=== PATIENT | male | born 1950 | race Caucasian/White ===

== ENCOUNTER 2020-04-22 10:35 | Outpatient (REF) | payer MEDICARE, SELFPAY ==
[2020-04-22 14:22] LABS: Glucose Urine UA NEG (NEG); Leukocyte Esterase Urine 1+ (NEG); Nitrite Urine NEG (NEG); Urine Blood TRACE (NEG); Urine Ketones NEG (NEG); Urine Protein NEG (NEG-TRACE)
[2020-04-22 14:27] LABS: Appearance Urine HAZY; Color Urine YELLOW
[2020-04-22 15:20] LABS: WBC Urine 30-49 /HPF (0-4)
== END 2020-04-22 10:36 | disposition home or self-care (01) ==
LOC: HO.LAB 10:35
PROVIDERS: PCP Internal Medicine; Visit Provider Urology
DX: R30.0 Dysuria (principal)
CPT/HCPCS: 81001; 81003; 87086; 87088; 87186

== ENCOUNTER 2020-12-28 13:37 | Outpatient (REF) | payer MEDICARE, SELFPAY ==
--- NOTE | 2020-12-28 14:09 | ECG_ITS ---
Test Reason : PREOP Blood Pressure : / mmHG Vent. Rate : 065 BPM Atrial Rate : 065 BPM P-R Int : 164 ms QRS Dur : 162 ms QT Int : 458 ms P-R-T Axes : 049 -48 116 degrees QTc Int : 476 ms Normal sinus rhythm Left axis deviation Left bundle branch block Abnormal ECG When compared with ECG of 23-APR-2017 14:46, No significant change was found Referred By: Any Jackson Electronically Signed By:XUAN FAULKNER
[2020-12-28 14:24] LABS: MANUAL DIFF FLAG NO
[2020-12-28 14:29] LABS: Basophils Percent Auto 0.5 % (0-2); Eosinophils Absolute Auto 0.2 X10*3/uL (0.0-0.4); Eosinophils Percent Auto 2.7 % (0-4); Hematocrit 44.1 % (42-52); Hemoglobin 15.3 g/dl (14.0-18.0); Imm Gran Abs Auto 0.01 X10*3/uL (0.00-0.03); Imm Gran Pct Auto 0.2 % (0.0-0.4); Lymphocytes Absolute Auto 2.1 X10*3/uL (1.2-4.9); Lymphocytes Percent Auto 35.3 % (20-40); Mean Corpuscular HGB Conc 34.7 g/dl (31.0-36.0); Mean Corpuscular Hemoglobin 30.4 pg (27.0-33.0); Mean Corpuscular Volume 87.5 fL (80-98); Mean Platelet Volume 10.5 fL (9.4-12.4); Monocytes Absolute Auto 0.6 X10*3/uL (0.1-1.2); Monocytes Percent Auto 9.8 % (2-11); Neutrophils Absolute Auto 3.1 X10*3/uL (2.0-8.3); Neutrophils Percent Auto 51.5 % (45-73); Platelet Count 193 X10*3/uL (160-400); Red Blood Count 5.04 X10*6/uL (4.60-5.80); Red Cell Distribution Width 12.2 % (11.0-16.0)
[2020-12-28 14:59] LABS: Anion Gap 12 (12-20); Blood Urea Nitrogen 21 mg/dL (9-16); Calcium 9.4 mg/dL (8.4-10.2); Carbon Dioxide 26 mmol/L (22-29); Chloride 105 mmol/L (96-108); Estimated Glomerular Filt Rate > 60; Glucose Random 104 mg/dL (60-115); Potassium 4.2 mmol/L (3.3-5.1); Sodium 139 mmol/L (135-145)
== END 2020-12-28 13:38 | disposition home or self-care (01) ==
LOC: HO.LAB 13:37
PROVIDERS: PCP Internal Medicine; Visit Provider Internal Medicine
DX: Z01.818 Encounter for other preprocedural examination (principal)
CPT/HCPCS: 36415; 80048; 85025; 93005

== ENCOUNTER → 2021-01-11 10:34 | Outpatient (BNVA) | payer MEDICARE, SELFPAY | PROVIDERS: PCP Internal Medicine; Visit Provider Urology | DX: C67.9 Malignant neoplasm of bladder, unspecified (principal) | CPT/HCPCS: 52000; 99212 ==

== ENCOUNTER 2021-02-14 06:24 | Inpatient (IN) | payer OTHER, SELFPAY ==
--- NOTE | ~2021-02-14 | XR_ITS ---
EXAMINATION: XR ABDOMEN COMPLETE CLINICAL INDICATION: SOB old, follow-up. Check NG tube placement COMPARISON: None TECHNIQUE: 2 views of the abdomen. FINDINGS: There are multiple small air-fluid levels without any free air or free fluid. There is no organomegaly. There is enteric tube tip within the stomach. No gross bony abnormality seen. XR/XR abdomen 3V IMPRESSION: Multiple dilated air-fluid levels in the upper abdomen question ileus.
--- NOTE | ~2021-02-14 | CT_ITS ---
EXAMINATION: CT ABDOMEN AND PELVIS WITH CONTRAST CLINICAL INFORMATION: Periumbilical pain COMPARISON: Previous CT of the abdomen and pelvis June 2013 TECHNIQUE: Multidetector volumetric images were obtained from the superior aspect of the liver through the pubic symphysis following administration 85 mL of Omnipaque 350 intravenous contrast. Sagittal and coronal reformatted images were obtained on the technologist's workstation. Oral contrast: Yes This CT examination was performed using dose optimization techniques as appropriate, variously including the following: *Automated exposure control *Adjustment of mA and/or kV according to patient size (this includes techniques or standardized protocols for targeted exams where dose is matched to indication/reason for exam; i.e. extremities or head) *Use of iterative reconstruction technique DLP: 738 mGy-cm FINDINGS: LUNG BASES: The visualized lung bases are unremarkable. LIVER, GALLBLADDER, AND BILIARY TREE: The liver is normal in size, shape, and attenuation. There is a small calcification. No focal hepatic lesion or biliary ductal dilatation is present. The gallbladder is unremarkable with no evidence of radiopaque gallstones, gallbladder wall thickening, or obvious pericholecystic inflammatory changes. PANCREAS: Unremarkable. SPLEEN: Small calcification probably related to old granulomatous disease. ADRENAL GLANDS: Unremarkable. KIDNEYS AND URETERS: There are bilateral renal cysts. There is a small stone in the left kidney. BLADDER: Not optimally distended. There is a tiny amount of air in the bladder and GASTROINTESTINAL TRACT: The stomach is dilated and fluid-filled. There are dilated fluid-filled loops of proximal small bowel questionable for small bowel obstruction. The distal small bowel and colon do not appear dilated. The appendix is not seen. ABDOMINAL WALL: No significant hernia is appreciated. LYMPH NODES: Normal. VASCULAR: Unremarkable. PELVIC VISCERA: Unremarkable. OSSEOUS STRUCTURES: There are degenerative changes of the spine. CT/CT abdomen pelvis w con IMPRESSION: Dilated fluid-filled stomach and dilated fluid-filled loops of proximal small bowel suggestive of small bowel obstruction. Bilateral renal cysts. Small nonobstructing left renal stone. Small amount of air in the bladder. This may be related to recent catheterization. Clinical correlation recommended.
--- NOTE | ~2021-02-14 | XR_ITS ---
EXAMINATION: XR CHEST CLINICAL INFORMATION: Check NG tube placement COMPARISON: Previous chest x-ray most recent from yesterday TECHNIQUE: Frontal view of the chest was obtained. FINDINGS: The cardiac and mediastinal contours are stable. There is a nasogastric tube that projects over the proximal stomach. The lungs are clear. There may be a tiny left pleural effusion. There is curvature of the thoracic spine to the right and degenerative change. XR/XR chest 1V IMPRESSION: Nasogastric tube projects over stomach.
--- NOTE | ~2021-02-14 | XR_ITS ---
EXAMINATION: XR CHEST CLINICAL INFORMATION: NG tube placement COMPARISON: Previous chest x-ray April 2017 TECHNIQUE: Frontal view of the chest was obtained. FINDINGS: The cardiac and mediastinal contours are normal. The lungs are clear. There is no pleural effusion. There is a nasogastric tube with tip projecting over the proximal stomach. There is curvature of the thoracic line to the right. XR/XR chest 1V IMPRESSION: Nasogastric tube projects over stomach.
[2021-02-14 07:08] VITALS: BP 127/79; PULSE 70; RESP 16; TEMP 36.7; O2SAT 98; BMI 31.4
--- NOTE | 2021-02-14 07:14 | ED_ITS ---
HPI - Abdominal Pain General Chief Complaint: Abdominal Pain Stated Complaint: stomach pain for about a day Time Seen by Provider: 02/14/21 07:12 Source: patient Mode of arrival: ambulatory Limitations: no limitations History of Present Illness MD elicited complaint: abdominal pain Pertinent past history: none Onset (ago): day(s) (yesterday) Pain Consistency: constant Location: periumbilical Quality: cramping Radiation: none Migration to: no migration Exacerbating factors: movement Relieving factors: nothing Associated symptoms: nausea Related Data Previous Rx's Medication Instructions Recorded simvastatin 40 mg tablet 40 mg PO BEDTIME #90 tab 07/17/20 metoprolol tartrate 50 mg tablet 50 mg PO BID #180 tab 10/10/20 omeprazole 20 mg capsule,delayed 20 mg PO DAILY 90 Days #90 cap 01/18/21 release Allergies Allergy/AdvReac Type Severity Reaction Status Date / Time No Known Allergies Allergy Unknown Verified 01/11/21 10:58 [No Known Allergies*] Review of Systems Review of Systems Constitutional : No Weight loss, No Fever, No Chills ENT/Mouth : No sore throat, No Rhinorrhea Eyes: No Swelling, No Redness Cardiovascular : No Chest Pain, No SOB, NoEdema Respiratory : No Cough, No Sputum, No Wheezing Gastrointestinal : Positive Nausea, no Vomiting, no Diarrhea, positive abdominal Pain, No Hematochezia, No Melena Genitourinary : No Dysuria, No Urinary Frequency, No Hematuria, No Urgency Musculoskeletal : No joint pain, No Myalgias, No Joint Swelling Skin : No Skin Lesions, No rash Neuro : No Weakness, No Numbness, No Dizziness, No Headache Psych : No Anxiety/Panic, No Depression Heme/Lymph: No Bruising, No Lymphadenopathy Endocrine : No Polyuria, No Polydipsia All other systems reviewed and are negative. Physical Exam Vital Signs: Vital Signs: Last Vital Signs Temp 98.0 F 02/14/21 07:08 Pulse 70 02/14/21 07:08 Resp 16 02/14/21 07:46 BP 127/79 02/14/21 07:08 Pulse Ox 98 02/14/21 07:08 Body Mass Index 31.4 Appearance: Alert. Oriented X3. No acute distress. Eyes: Pupils equal, round and reactive to light. ENT: Pharynx normal. Neck: Normal inspection. Neck supple. CVS: Normal heart rate and rhythm. Pulses normal. Respiratory: No respiratory distress. Breath sounds normal. Abdomen: Soft and moderate ttp in periumbilical area no rebound or guarding Skin: Skin warm and dry. Normal skin color. Normal skin turgor. Extremities: No lower extremity edema. No calf ttp Neuro: Oriented X 3. No motor deficit. No sensory deficit. Course Course Course Narrative: message sent to Dr. Wagner 349am [facility] - Abdominal Pain MDM Narrative Medical decision making narrative: 71 yo male otherwise healthy comes in with c/o periumbilical pain since last night with nausea at this time labs, IV morphine, CT scan for pancreatitis, obstruction ordered, dispo per results and findings. Differential Diagnosis Differential diagnosis: Likely abdominal pain, diverticulitis, pancreatitis, peptic ulcer disease, renal colic and small bowel obstruction Lab Data Result diagrams: 02/14/21 07:24 02/14/21 07:24 Labs: Lab Results 02/14/21 02/14/21 02/14/21 Range/Units 07:24 07:24 07:24 WBC 11.4 H (4.8-10.8) X10*3/uL RBC 5.43 (4.60-5.80) X10*6/uL Hgb 16.6 (14.0-18.0) g/dl Hct 47.2 (42-52) % MCV 86.9 (80-98) fL MCH 30.6 (27.0-33.0) pg MCHC 35.2 (31.0-36.0) g/dl RDW 12.5 (11.0-16.0) % Plt Count 178 (160-400) X10*3/uL MPV 9.7 (9.4-12.4) fL Immature Gran % (Auto) 0.3 (0.0-0.4) % Neut % (Auto) 85.6 H (45-73) % Lymph % (Auto) 7.6 L (20-40) % [place] % (Auto) 6.0 (2-11) % Eos % (Auto) 0.3 (0-4) % Baso % (Auto) 0.2 (0-2) % Lymph # (Auto) 0.9 L (1.2-4.9) X10*3/uL [place] # (Auto) 0.7 (0.1-1.2) X10*3/uL Eos # (Auto) 0.0 (0.0-0.4) X10*3/uL Baso # (Auto) 0.0 (0.0-0.2) X10*3/uL Abs Immat Gran (auto) 0.03 (0.00-0.03) X10*3/uL Absolute Neuts (auto) 9.8 H (2.0-8.3) X10*3/uL Absolute Nucleated RBC 0.000 (0.0-0.012) X10*3/uL Nucleated RBC % (auto) 0.0 (0.0-0.2) /100WBC Sodium 138 (135-145) mmol/L Potassium 3.9 (3.3-5.1) mmol/L Chloride 99 (96-108) mmol/L Carbon Dioxide 29 (22-29) mmol/L Anion Gap 14 (12-20) BUN 19 H (9-16) mg/dL Creatinine 0.96 (0.5-1.4) mg/dL Estim Creat Clear Calc 71.4 Estimated GFR > 60 Random Glucose 137 H (60-115) mg/dL Lactic Acid 1.4 (0.5-2.0) mmol/L Calcium 10.2 D (8.4-10.2) mg/dL Magnesium 2.0 (1.6-2.6) mg/dL Total Bilirubin 1.1 H (0.0-1.0) mg/dL Direct Bilirubin 0.4 (0.0-0.5) mg/dL AST 19 (5-37) U/L ALT 16 (0-40) U/L Alkaline Phosphatase 75 (39-117) U/L Troponin I High Sens (<3.5-35.0) ng/L Total Protein 7.7 (6.5-8.0) g/dL Albumin 4.5 (3.5-5.0) g/dL Lipase 10 (8-78) U/L Urine Color Urine Appearance Urine pH (5.0-8.0) Ur Specific [place] (1.005-1.025) Urine Protein (NEG-TRACE) MG/DL Urine Glucose (UA) (NEG) MG/DL Urine Ketones (NEG) MG/DL Urine Blood (NEG) Urine Nitrite (NEG) Ur Leukocyte Esterase (NEG) COVID-19 (ARPIT) (Negative) COVID-19 Clin Com 02/14/21 02/14/21 02/14/21 Range/Units 07:24 08:08 08:08 WBC (4.8-10.8) X10*3/uL RBC (4.60-5.80) X10*6/uL Hgb (14.0-18.0) g/dl Hct (42-52) % MCV (80-98) fL MCH (27.0-33.0) pg MCHC (31.0-36.0) g/dl RDW (11.0-16.0) % Plt Count (160-400) X10*3/uL MPV (9.4-12.4) fL Immature Gran % (Auto) (0.0-0.4) % Neut % (Auto) (45-73) % Lymph % (Auto) (20-40) % [place] % (Auto) (2-11) % Eos % (Auto) (0-4) % Baso % (Auto) (0-2) % Lymph # (Auto) (1.2-4.9) X10*3/uL [place] # (Auto) (0.1-1.2) X10*3/uL Eos # (Auto) (0.0-0.4) X10*3/uL Baso # (Auto) (0.0-0.2) X10*3/uL Abs Immat Gran (auto) (0.00-0.03) X10*3/uL Absolute Neuts (auto) (2.0-8.3) X10*3/uL Absolute Nucleated RBC (0.0-0.012) X10*3/uL Nucleated RBC % (auto) (0.0-0.2) /100WBC Sodium (135-145) mmol/L Potassium (3.3-5.1) mmol/L Chloride (96-108) mmol/L Carbon Dioxide (22-29) mmol/L Anion Gap (12-20) BUN (9-16) mg/dL Creatinine (0.5-1.4) mg/dL Estim Creat Clear Calc Estimated GFR Random Glucose (60-115) mg/dL Lactic Acid (0.5-2.0) mmol/L Calcium (8.4-10.2) mg/dL Magnesium (1.6-2.6) mg/dL Total Bilirubin (0.0-1.0) mg/dL Direct Bilirubin (0.0-0.5) mg/dL AST (5-37) U/L ALT (0-40) U/L Alkaline Phosphatase (39-117) U/L Troponin I High Sens < 3.5 (<3.5-35.0) ng/L Total Protein (6.5-8.0) g/dL Albumin (3.5-5.0) g/dL Lipase (8-78) U/L Urine Color YELLOW Urine Appearance CLEAR Urine pH 6.5 (5.0-8.0) Ur Specific [place] 1.020 (1.005-1.025) Urine Protein TRACE (NEG-TRACE) MG/DL Urine Glucose (UA) NEG (NEG) MG/DL Urine Ketones NEG (NEG) MG/DL Urine Blood NEG (NEG) Urine Nitrite NEG (NEG) Ur Leukocyte Esterase NEG (NEG) COVID-19 (ARPIT) Negative (Negative) COVID-19 Clin Com See Note ECG Data Attestation: I personally reviewed and interpreted this ECG as follows: ECG interpretation date: 02/14/21 ECG interpretation time: 07:59 Interpretation: Rate: 67 Rhythm: NSR [place]: left Normal P waves. Normal [place]. LBBB ST T wave : normal no RUDI qTC: normal prior studies: no acute ischemia The study has been interpreted contemporaneously by me. . Discharge Plan Discharge Clinical Impression: SBO (small bowel obstruction) Patient Disposition: Admitted As Inpatient Prescriptions: No Action simvastatin 40 mg tablet 40 mg PO BEDTIME Qty: 90 RF: 3 metoprolol tartrate 50 mg tablet 50 mg PO BID Qty: 180 RF: 3 omeprazole 20 mg capsule,delayed release(DR/EC) 20 mg PO DAILY 90 Days Qty: 90 RF: 1 PMF Past Medical History Attestation statement: The following information was validated with the patient. Medical History (Updated 02/14/21 @ 09:50 by Goldie Swain DO) Bladder cancer Erectile dysfunction GERD (gastroesophageal reflux disease) Hypercholesterolemia Obesity (BMI 30-39.9) Obstructive sleep apnea SVT (supraventricular tachycardia) Surgical History (Updated 02/14/21 @ 09:40 by Goldie Swain DO) H/O arthroscopy of right knee History of appendectomy History of arthroplasty of left knee History of bladder surgery History of meniscectomy of left knee Hx of transurethral destruction of bladder lesion Social History Social History Alcohol intake: never Patient Tobacco Use Status: Never used Tobacco Use of substances other than those prescribed or required for medical reasons: No Advance Directives: Yes Advance Directives Information Provided: No Advance Directives on File: No
--- NOTE | 2021-02-14 07:19 | ECG_ITS ---
Test Reason : ABDOMINAL PAIN Blood Pressure : / mmHG Vent. Rate : 067 BPM Atrial Rate : 067 BPM P-R Int : 170 ms QRS Dur : 162 ms QT Int : 436 ms P-R-T Axes : 040 -47 094 degrees QTc Int : 460 ms Normal sinus rhythm Left axis deviation Left bundle branch block Abnormal ECG When compared with ECG of 28-DEC-2020 14:12, No significant change was found Referred By: Goldie Swain Electronically Signed By:Elder Vegas
[2021-02-14 07:29] LABS: MANUAL DIFF FLAG NO
[2021-02-14 07:31] LABS: Basophils Percent Auto 0.2 % (0-2); Eosinophils Percent Auto 0.3 % (0-4); Hematocrit 47.2 % (42-52); Hemoglobin 16.6 g/dl (14.0-18.0); Imm Gran Abs Auto 0.03 X10*3/uL (0.00-0.03); Imm Gran Pct Auto 0.3 % (0.0-0.4); Lymphocytes Absolute Auto 0.9 X10*3/uL (1.2-4.9); Lymphocytes Percent Auto 7.6 % (20-40); Mean Corpuscular HGB Conc 35.2 g/dl (31.0-36.0); Mean Corpuscular Hemoglobin 30.6 pg (27.0-33.0); Mean Corpuscular Volume 86.9 fL (80-98); Mean Platelet Volume 9.7 fL (9.4-12.4); Monocytes Absolute Auto 0.7 X10*3/uL (0.1-1.2); Neutrophils Absolute Auto 9.8 X10*3/uL (2.0-8.3); Neutrophils Percent Auto 85.6 % (45-73); Platelet Count 178 X10*3/uL (160-400); Red Blood Count 5.43 X10*6/uL (4.60-5.80); Red Cell Distribution Width 12.5 % (11.0-16.0); White Blood Count 11.4 X10*3/uL (4.8-10.8)
[2021-02-14 07:46] VITALS: RESP 16
[2021-02-14] MEDS: Morphine Sulfate 4 MG/ML CARTRIDGE IVPUSH ×2 (07:46→16:38)
[2021-02-14 07:49] LABS: COVID-19 Test Negative (Negative)
[2021-02-14 07:58] LABS: Lactic Acid 1.4 mmol/L (0.5-2.0)
[2021-02-14 08:04] LABS: Alanine Aminotransferase 16 U/L (0-40); Albumin Level 4.5 g/dL (3.5-5.0); Alkaline Phosphatase 75 U/L (39-117); Anion Gap 14 (12-20); Aspartate Amino Transferase 19 U/L (5-37); Bilirubin Direct 0.4 mg/dL (0.0-0.5); Bilirubin Total 1.1 mg/dL (0.0-1.0); Blood Urea Nitrogen 19 mg/dL (9-16); Calcium 10.2 mg/dL (8.4-10.2); Carbon Dioxide 29 mmol/L (22-29); Chloride 99 mmol/L (96-108); Creatinine Clr Calc Pharmacy 71.4; Estimated Glomerular Filt Rate > 60; Glucose Random 137 mg/dL (60-115); Lipase 10 U/L (8-78); Potassium 3.9 mmol/L (3.3-5.1); Sodium 138 mmol/L (135-145); Total Protein 7.7 g/dL (6.5-8.0)
[2021-02-14 08:18] LABS: Glucose Urine UA NEG (NEG); Leukocyte Esterase Urine NEG (NEG); Nitrite Urine NEG (NEG); PH 6.5 (5.0-8.0); Urine Blood NEG (NEG); Urine Ketones NEG (NEG); Urine Protein TRACE MG/DL (NEG-TRACE)
[2021-02-14 08:19] LABS: Appearance Urine CLEAR; Color Urine YELLOW
[2021-02-14] MEDS: iohexoL 350 MG/ML 100 ML INFUS..BTL IV (08:42)
[2021-02-14 08:44] LABS: Troponin-I High Sensitivity < 3.5 ng/L (<3.5-35.0)
--- NOTE | 2021-02-14 10:36 | PM.HPGS ---
History of Present Illness History of Present Illness Date of Service: 02/14/21 Chief complaint: Small Bowel Obstruction Narrative: Volodymyr Richards is a 71 year old male with complaints of abdominal pain located diffusely since yesterday morning. Pain is mostly in the upper abdomen and is associated with nausea without vomiting. He felt the pain comes in waves. He thought if he could only vomit the pain would improve. He denied eating anything unusual and denies any sick exposures. He denies a previous history of similar symptoms. He has a history of kidney stones with feels the pain is different. He reports moving his bowels twice yesterday and they were normal. He has a previous history of an appendectomy performed when he was 8 years old. He presents to the emergency department due to the pain and was found to have a small-bowel obstruction by CT of the abdomen and pelvis. He is being admitted to the surgical service for management of small-bowel obstruction. He denies a prior history of bowel obstructions. There were no inciting events, aggravating or relieving factors. Review of Systems Review of Systems: Yes all other systems are reviewed and are negative Gastrointestinal: Gastrointestinal: Reports as per HPI Genitourinary: Comments: Bladder cancer [facility] Past Medical History Medical History Bladder cancer Erectile dysfunction GERD (gastroesophageal reflux disease) Hypercholesterolemia Obesity (BMI 30-39.9) Obstructive sleep apnea SVT (supraventricular tachycardia) Surgical History Surgical History H/O arthroscopy of right knee History of appendectomy History of arthroplasty of left knee History of bladder surgery History of meniscectomy of left knee Hx of transurethral destruction of bladder lesion Social History Social History Household Members: Spouse Housing: House Do you presently have visiting nurse or other home services: No Alcohol intake: never Patient Tobacco Use Status: Former Tobacco user Use of substances other than those prescribed or required for medical reasons: No Have you been hit, kicked, punched, or otherwise hurt by someone within the past year? If so, by whom?: No Do you feel safe in your current relationship?: Yes Is there a partner from a previous relationship who is making you feel unsafe now?: No Are you made to feel afraid or neglected: No Advance Directives: Yes Advance Directives Information Provided: No Advance Directives on File: No Advance Directives Date on File: 02/14/21 Do you have thoughts of harming others: None Do you have a plan to hurt others: No Plan Recently lost weight without trying: No Eating poorly because of decreased appetite: No Nutrition Risks: No Nutritional Risk Poor oral hygiene: No Meds Allergies Allergy/AdvReac Type Severity Reaction Status Date / Time No Known Allergies Allergy Unknown Verified 01/11/21 10:58 [No Known Allergies*] Home Medications Medication Instructions Recorded Confirmed Last Taken Type meloxicam 15 mg tablet 1 tab PO DAILY 02/14/21 02/14/21 Unknown History piroxicam 20 mg capsule 1 cap PO DAILY 02/14/21 02/14/21 Unknown History Physical Exam Vital Signs: Vital Signs: Last Vital Signs Temp 98.0 F 02/14/21 07:08 Pulse 70 02/14/21 07:08 Resp 16 02/14/21 07:46 BP 127/79 02/14/21 07:08 Pulse Ox 98 02/14/21 07:08 Body Mass Index 31.4 Const: General: no acute distress and well developed Nutritional Appearance: well nourished Orientation/consciousness: patient oriented x3 Limitations: no limitations Neck: Neck: Yes full ROM and Yes no JVD Resp: Effort & Inspection: normal respiratory effort, no cough and no stridor Cardio: Jugular venous distension: no JVD Rate: regular rate Rhythm: regular rhythm GI: Other: Soft, distended, tympanitic to percussion, tender to deep palpation without rebound, guarding, rigidity. Skin: Other: Warm, dry, no Neuro: General: patient oriented x3 Extrem: General: Yes no clubbing, cyanosis or edema Results Results Labs: Short CBC 02/14/21 Range/Units 07:24 WBC 11.4 H (4.8-10.8) X10*3/uL Hgb 16.6 (14.0-18.0) g/dl Hct 47.2 (42-52) % Plt Count 178 (160-400) X10*3/uL BMP 02/14/21 07:24 Sodium 138 Potassium 3.9 Chloride 99 Carbon Dioxide 29 BUN 19 H Creatinine 0.96 Calcium 10.2 D Liver Function 02/14/21 Range/Units 07:24 Total Bilirubin 1.1 H (0.0-1.0) mg/dL Direct Bilirubin 0.4 (0.0-0.5) mg/dL AST 19 (5-37) U/L ALT 16 (0-40) U/L Alkaline Phosphatase 75 (39-117) U/L Albumin 4.5 (3.5-5.0) g/dL Urine 02/14/21 Range/Units 08:08 Urine Color YELLOW Urine Appearance CLEAR Urine pH 6.5 (5.0-8.0) Ur Specific [place] 1.020 (1.005-1.025) Urine Protein TRACE (NEG-TRACE) MG/DL Urine Glucose (UA) NEG (NEG) MG/DL Abdomen CT scan report/results: image reviewed CT scan - pelvis: image reviewed Assessment and Plan (1) SBO (small bowel obstruction): Status: Acute 71-year-old male patient presenting with a 1st episode of small-bowel obstruction possibly due to adhesions from prior abdominal surgery. Patient will be made NPO and started on IV fluids. Nasogastric tube will be placed in the emergency department and connected to low intermittent suction. We discussed non operative management of small-bowel obstruction with the possibility of surgery if no improvement or worsening of his symptoms over the next several days. He expressed understanding and agrees with the plan. Quality Stroke Does the patient have a stroke diagnosis?: No VTE Prior VTE?: No VTE Risk Level:: Surgical - high VTE Device Contraindication: N/A - Device Ordered VTE Drug Contraindication: N/A - Med Ordered Procedures Date of Service Date of Service: 02/14/21
[2021-02-14] MEDS: Lidocaine HCl 4 % MPF w/MADgic 5 ML AMPUL 1 APPL TOPICAL (10:49)
--- NOTE | 2021-02-14 11:06 | PC.NURSE ---
ng tube placed l nare- pt tolerated well
--- NOTE | 2021-02-14 11:06 | PHA.MEDREC ---
Pharmacy Consult ? Medication Reconciliation Pharmacy has completed the medication reconciliation. PT has both meloxicam and piroxicam on his home med list. However, the meloxicam was ordered more recently. The Rx for piroxicam is from at least 6 months ago.
[2021-02-14 11:57] VITALS: BP 130/73; PULSE 66; RESP 17; TEMP 36; O2SAT 92
[2021-02-14] MEDS: Heparin Sodium,Porcine 5,000 UNIT/ML VIAL 5000 UNIT SUBCUT ×2 (12:23→20:29)
[2021-02-14] MEDS: Dextrose 5 % and Lactated Ring 1,000 ML 125 ML IVCONT ×2 (12:25→20:28)
[2021-02-14] MEDS: oxyCODONE HCl Immed Release 5 MG TABLET PO (12:33)
[2021-02-14 15:49] VITALS: BP 131/73; PULSE 73; RESP 14; TEMP 36.4; O2SAT 94
[2021-02-14 19:24] VITALS: BP 124/65; PULSE 82; RESP 14; TEMP 36.9; O2SAT 93
[2021-02-15] VITALS (8 sets, daily range): BP systolic 127–156; BP diastolic 67–86; PULSE 74–111; RESP 14–17; TEMP 36–37.3; O2SAT 91–97
[2021-02-15] MEDS: 0.9 % Sodium Chloride Flush 3 ML SYRINGE IVFLUSH (00:05)
[2021-02-15] MEDS: Morphine Sulfate 4 MG/ML CARTRIDGE IVPUSH ×3 (01:08→22:18)
[2021-02-15] MEDS: Dextrose 5 % and Lactated Ring 1,000 ML 125 ML IVCONT ×3 (04:54→21:12)
[2021-02-15 06:00] LABS: MANUAL DIFF FLAG NO
[2021-02-15 06:03] LABS: Basophils Percent Auto 0.4 % (0-2); Eosinophils Percent Auto 0.7 % (0-4); Hematocrit 47.7 % (42-52); Hemoglobin 16.2 g/dl (14.0-18.0); Imm Gran Abs Auto 0.01 X10*3/uL (0.00-0.03); Imm Gran Pct Auto 0.2 % (0.0-0.4); Lymphocytes Absolute Auto 1.1 X10*3/uL (1.2-4.9); Lymphocytes Percent Auto 21.3 % (20-40); Mean Corpuscular Hemoglobin 30.1 pg (27.0-33.0); Mean Corpuscular Volume 88.7 fL (80-98); Monocytes Absolute Auto 0.9 X10*3/uL (0.1-1.2); Monocytes Percent Auto 16.3 % (2-11); Neutrophils Absolute Auto 3.3 X10*3/uL (2.0-8.3); Neutrophils Percent Auto 61.1 % (45-73); Platelet Count 169 X10*3/uL (160-400); Red Blood Count 5.38 X10*6/uL (4.60-5.80); Red Cell Distribution Width 12.6 % (11.0-16.0); White Blood Count 5.4 X10*3/uL (4.8-10.8)
--- NOTE | 2021-02-15 06:30 | MHC.PIE ---
P.HICCUPS I.PT C/O SPASTIC HICCUPS WHEN INTERMITTANT SUCTION ON.STATING HE WANTED NG TUBE OUT.INTERMITANT SUCTION TURNED OFF BUT EXPLAINED TO PT IMPORTANCE OF LEAVING NG TUBE IN FOR NOW.PT AGREEABLE.SUCTION OFF WITH ALMOST IMMEDIATE RELIEF OF HICCUPS.LEFT OFF X 1 HOUR BUT PT THEN C/O NAUSEA.MED WITH ZOFRAN 4MG IV AND INTERMITTANT SUCTION BACK ON.LEFT ON X 40 MINUTES AND PT STARTING WITH HICCUPS AGAIN.REQUESTED THE INTERMITTANT SUCTION BE TURNED OFF.SUCTION OFF. NOTIFIED OF ALL ABOVE.
[2021-02-15 06:35] LABS: Anion Gap 13 (12-20); Blood Urea Nitrogen 23 mg/dL (9-16); Calcium 9.3 mg/dL (8.4-10.2); Carbon Dioxide 30 mmol/L (22-29); Chloride 100 mmol/L (96-108); Creatinine Clr Calc Pharmacy 79.7; Estimated Glomerular Filt Rate > 60; Glucose Random 125 mg/dL (60-115); Sodium 139 mmol/L (135-145)
--- NOTE | 2021-02-15 08:11 | PM.PNGS ---
Subjective Subjective Date of Service: 02/15/21 <Mariposa Sinha PA-C - Last Filed: 02/15/21 08:17> 02/15/21 <Samy Wagner MD - Last Filed: 02/15/21 08:31> Interval history: Does not feel any better. Continues to have pain. NGT clamped while awaiting AXR as patient complained of hiccups but now having nausea. Denies passing flatus since yesterday. <Mariposa Sinha PA-C - Last Filed: 02/15/21 08:17> Physical Exam Vital Signs: Vital Signs: Last Vital Signs Temp 97.6 F 02/15/21 08:00 Pulse 93 02/15/21 08:00 Resp 17 02/15/21 08:00 BP 142/86 H 02/15/21 08:00 Pulse Ox 92 02/15/21 08:00 Body Mass Index 31.4 <Mariposa Sinha PA-C - Last Filed: 02/15/21 08:17> Const: General: no acute distress, alert and other (appears in pain) <Mariposa Sinha PA-C - Last Filed: 02/15/21 08:17> Orientation/consciousness: patient oriented x3 <TARIK Sumner Last Filed: 02/15/21 08:17> HENMT: Other: NGT in left nare <Mariposa Sinha PA-C - Last Filed: 02/15/21 08:17> Resp: Effort & Inspection: normal respiratory effort <Mariposa Sinha PA-C - Last Filed: 02/15/21 08:17> GI: Inspection: Yes distended <TARIK Sumner Last Filed: 02/15/21 08:17> Palpation (GI): Soft to palpation, Tenderness to palpation present (GI) (upper abdomen) Negative for with no rebound tenderness, no guarding and not rigid <TARIK Sumner Last Filed: 02/15/21 08:17> Percussion: Yes tympanic to percussion <TARIK Sumner Last Filed: 02/15/21 08:17> Skin: General skin exam: no rashes or lesions noted <TARIK Sumner Last Filed: 02/15/21 08:17> Neuro: General: patient oriented x3 <TARIK Sumner Last Filed: 02/15/21 08:17> Extrem: General: Yes no clubbing, cyanosis or edema <TARIK Sumner Last Filed: 02/15/21 08:17> Procedures Date of Service Date of Service: 02/15/21 <TARIK Sumner Last Filed: 02/15/21 08:17> Progress Note: A&P Assessment and plan (1) SBO (small bowel obstruction): Status: Acute <TARIK Sumner Last Filed: 02/15/21 08:17> Assessment and Plan: 71 year old male who presented to ED with complaints of abdominal pain found to have SBO. He has persistent pain, no evidence of return of GI function. F/u AXR today. NGT did not have much output- ?need to be advanced versus clogged. Strongly encouraged patient to ambulate. Continue NPO status, NGT decompression, IVF. Await AXR. <TARIK Sumner Last Filed: 02/15/21 08:17> Fall Risk Details Current Medications: Current Medications Generic Name Dose Route Start Last Admin Trade Name Freq PRN Reason Stop Dose Admin Acetaminophen 650 mg 02/14/21 11:12 Acetaminophen 325 Mg Tablet PO Q6H PRN Pain, Mild (Pain Scale 1-3) Heparin Sodium (Porcine) 5,000 unit 02/14/21 11:12 02/14/21 20:29 Heparin Sodium,Porcine 5,000 Unit/Ml Vial SUBCUT 5,000 unit Q12H PANCHITO Administration Dextrose/Lactated Ringer's 1,000 mls @ 125 mls/hr 02/14/21 11:12 02/15/21 04:54 D5lr IVCONT 125 mls/hr .Q8H PANCHITO Administration Promethazine HCl 12.5 mg/ 50.5 mls @ 202 mls/hr 02/14/21 18:29 02/14/21 20:48 Sodium Chloride IV Infused Q6H PRN Infusion Nausea and Vomiting Morphine Sulfate 4 mg 02/14/21 11:12 02/15/21 01:08 Morphine Sulfate 4 Mg/Ml Cartridge IVPUSH 4 mg Q4H PRN Administration Pain, Severe (Pain Scale 7-10) Ondansetron HCl 4 mg 02/14/21 11:12 02/15/21 06:04 Ondansetron Hcl 4 Mg/2 Ml Vial IVPUSH 4 mg Q8H PRN Administration Nausea and Vomiting Oxycodone HCl 5 mg 02/14/21 11:12 02/14/21 12:33 Oxycodone Hcl Immed Release 5 Mg Tablet PO 5 mg Q6H PRN Administration Pain, Moderate (Pain Scale 4-6 Sodium Chloride 3 ml 02/14/21 16:00 02/15/21 07:21 0.9 % Sodium Chloride Flush 3 Ml Syringe IVFLUSH Not Given QSHIFT PANCHITO Temazepam 15 mg 02/14/21 11:12 Temazepam 15 Mg Capsule PO BEDTIME PRN Insomnia <Mariposa Sinha PA-C - Last Filed: 02/15/21 08:17> Time Spent With Patient Time: Total time spent is greater than 50% in coordination of care (as documented) at patient's floor/unit and/or counseling patient: <Mariposa Sinha PA-C - Last Filed: 02/15/21 08:17> Time with patient: 15 - 24 minutes <TARIK Sumner Last Filed: 02/15/21 08:17> Quality Stroke Does the patient have a stroke diagnosis?: No <TARIK Sumner Last Filed: 02/15/21 08:17> VTE Prior VTE?: No <TARIK Sumner Last Filed: 02/15/21 08:17> VTE Risk Level:: Surgical - high <TARIK Sumner Last Filed: 02/15/21 08:17> VTE Device Contraindication: N/A - Device Ordered <TARIK Sunmer Last Filed: 02/15/21 08:17> VTE Drug Contraindication: N/A - Med Ordered <TARIK Sumner Last Filed: 02/15/21 08:17>
--- NOTE | 2021-02-15 08:12 | PM.PNGS ---
Subjective Subjective Date of Service: 02/15/21 Interval history: complains of huccups, not improved with NGT on suction. Continues to feel nausea, no BM yet. Physical Exam Vital Signs: Vital Signs: Last Vital Signs Temp 97.6 F 02/15/21 08:00 Pulse 93 02/15/21 08:00 Resp 17 02/15/21 08:00 BP 142/86 H 02/15/21 08:00 Pulse Ox 92 02/15/21 08:00 Body Mass Index 31.4 Const: General: no acute distress and well developed Nutritional Appearance: well nourished Orientation/consciousness: patient oriented x3 Resp: Effort & Inspection: normal respiratory effort GI: Other: distended, less tympanitic, mild tenderness in the lower abdomen, decreased BS. Skin: Other: warm, dry, no rash Neuro: General: patient oriented x3 Extrem: Other: no edema Procedures Date of Service Date of Service: 02/15/21 Progress Note: A&P Assessment and plan (1) SBO (small bowel obstruction): Status: Acute Assessment and Plan: 71-year-old male patient with small-bowel obstruction presumably due to adhesions. Patient is complaining of hiccups this morning which may be related to gastric distention. Abdominal x-ray has been requested to check NG tube placement. Continue NPO and IV fluids. If no improvement patient may require exploratory laparotomy with enterolysis. Patient expressed understanding and agrees with the plan. Fall Risk Details Current Medications: Current Medications Generic Name Dose Route Start Last Admin Trade Name Freq PRN Reason Stop Dose Admin Acetaminophen 650 mg 02/14/21 11:12 Acetaminophen 325 Mg Tablet PO Q6H PRN Pain, Mild (Pain Scale 1-3) Heparin Sodium (Porcine) 5,000 unit 02/14/21 11:12 02/14/21 20:29 Heparin Sodium,Porcine 5,000 Unit/Ml Vial SUBCUT 5,000 unit Q12H PANCHITO Administration Dextrose/Lactated Ringer's 1,000 mls @ 125 mls/hr 02/14/21 11:12 02/15/21 04:54 D5lr IVCONT 125 mls/hr .Q8H PANCHITO Administration Promethazine HCl 12.5 mg/ 50.5 mls @ 202 mls/hr 02/14/21 18:29 02/14/21 20:48 Sodium Chloride IV Infused Q6H PRN Infusion Nausea and Vomiting Morphine Sulfate 4 mg 02/14/21 11:12 02/15/21 01:08 Morphine Sulfate 4 Mg/Ml Cartridge IVPUSH 4 mg Q4H PRN Administration Pain, Severe (Pain Scale 7-10) Ondansetron HCl 4 mg 02/14/21 11:12 02/15/21 06:04 Ondansetron Hcl 4 Mg/2 Ml Vial IVPUSH 4 mg Q8H PRN Administration Nausea and Vomiting Oxycodone HCl 5 mg 02/14/21 11:12 02/14/21 12:33 Oxycodone Hcl Immed Release 5 Mg Tablet PO 5 mg Q6H PRN Administration Pain, Moderate (Pain Scale 4-6 Sodium Chloride 3 ml 02/14/21 16:00 02/15/21 07:21 0.9 % Sodium Chloride Flush 3 Ml Syringe IVFLUSH Not Given QSHIFT [facility] Temazepam 15 mg 02/14/21 11:12 Temazepam 15 Mg Capsule PO BEDTIME PRN Insomnia Time Spent With Patient Time: Total time spent is greater than 50% in coordination of care (as documented) at patient's floor/unit and/or counseling patient: Time with patient: 15 - 24 minutes Quality Stroke Does the patient have a stroke diagnosis?: No VTE Prior VTE?: No VTE Risk Level:: Surgical - high VTE Device Contraindication: N/A - Device Ordered VTE Drug Contraindication: N/A - Med Ordered
[2021-02-15] MEDS: Heparin Sodium,Porcine 5,000 UNIT/ML VIAL 5000 UNIT SUBCUT ×2 (10:20→22:18)
[2021-02-15] MEDS: Throat Lozenge, Medicated LOZENGE 1 LOZENGE MUCOUS MEM (11:43)
--- NOTE | 2021-02-15 15:25 | MHC.CM.PN ---
nurse care management note electronic medical record reviewed along with case discussed with staff nurse , met with patient and explained the role of the nurse foster care worker to him we have him listed as primary va ins and secondarys united health care medicare , he reported it shoul be listed at undited health care medicare foirst and then secondary second, [facility] and has some war disabilities he does not use their pharmacy. he lives with his , he is active and independent in all adls and mobility he has no vna , he does have a cpap for jorge from [facility], he reported he has some ptsd and is followed by dana also he has been in [facility] for over 40 years now He has been admitted with small bowel obstructions DISCHARGE PLAN HOME NO SERVICES ANTICIPATED PCP DR WARE PO PATIENT TO CALL FOR POST HOSPITLAZATION FOLLOW UP TRANSPORTATION HIS HEALTH CARE PROXY HIS REQUESTED COPY BE BROUGHT IN OR MAILED TO [facility] MEDIC[facility] IMM UPDATED
[2021-02-15] MEDS: Acetaminophen 325 MG TABLET 650 MG PO (19:36)
[2021-02-16] VITALS (13 sets, daily range): BP systolic 128–182; BP diastolic 73–88; PULSE 86–110; RESP 10–20; TEMP 35.9–37.4; O2SAT 90–97
[2021-02-16] MEDS: Dextrose 5 % and Lactated Ring 1,000 ML 125 ML IVCONT ×2 (05:04→22:27)
--- NOTE | 2021-02-16 07:34 | PM.PNGS ---
Subjective Subjective Date of Service: 02/16/21 Interval history: Large output from NGT but patient is not improved, continues to have abdominal pain and hiccups. He is ready for surgery. Physical Exam Vital Signs: Vital Signs: Last Vital Signs Temp 96.9 F 02/16/21 04:00 Pulse 99 02/16/21 04:00 Resp 16 02/16/21 04:00 BP 131/84 02/16/21 04:00 Pulse Ox 93 02/16/21 04:00 Body Mass Index 31.4 Const: General: acute distress, ill appearing and tired appearing Nutritional Appearance: well nourished Orientation/consciousness: patient oriented x3 Limitations: no limitations Resp: Effort & Inspection: normal respiratory effort, no stridor and not tachypneic Auscultation: no crackles and no rales Cardio: Jugular venous distension: no JVD Rate: regular rate Rhythm: regular rhythm GI: Other: softer, less distended, no BS, tender in lower abdomen, no rebound or guarding Skin: Other: warm and dry, no rash Neuro: General: patient oriented x3 Extrem: Other: no edema Procedures Date of Service Date of Service: 02/16/21 Progress Note: A&P Assessment and plan (1) SBO (small bowel obstruction): Status: Acute Assessment and Plan: 71 year old male wit previous history of bladder ca, appendectomy, presenting with abdominal pain , distension, nausea, vomiting found to have a small bowel obstruction with a transition in the mid small bowel and decompressed distal SB. Patient has not improved with bowel rest and NGT decompression. He continues to have hiccups and abdominal pain. We discussed continued non-operative management vs. exploratory laparoscopy with enterolysis, possible open lysis, possible bowel resection. After a discussion ot the procedure, alternatives and risks, he consents to the Laparoscopic or possible open lysis of adhesions, possible bowel resection. He was added on to the OR schedule for later today. Fall Risk Details Current Medications: Current Medications Generic Name Dose Route Start Last Admin Trade Name Freq PRN Reason Stop Dose Admin Acetaminophen 650 mg 02/14/21 11:12 02/15/21 19:36 Acetaminophen 325 Mg Tablet PO 650 mg Q6H PRN Administration Pain, Mild (Pain Scale 1-3) Benzocaine 1 lozenge 02/15/21 08:18 02/15/21 11:43 Throat Lozenge, Medicated Lozenge MUCOUS MEM 1 lozenge Q2H PRN Administration Sore Throat Heparin Sodium (Porcine) 5,000 unit 02/14/21 11:12 02/15/21 22:18 Heparin Sodium,Porcine 5,000 Unit/Ml Vial SUBCUT 5,000 unit Q12H PANCHITO Administration Dextrose/Lactated Ringer's 1,000 mls @ 125 mls/hr 02/14/21 11:12 02/16/21 05:04 D5lr IVCONT 125 mls/hr .Q8H PANCHITO Administration Promethazine HCl 12.5 mg/ 50.5 mls @ 202 mls/hr 02/14/21 18:29 02/14/21 20:48 Sodium Chloride IV Infused Q6H PRN Infusion Nausea and Vomiting Morphine Sulfate 4 mg 02/14/21 11:12 02/15/21 22:18 Morphine Sulfate 4 Mg/Ml Cartridge IVPUSH 4 mg Q4H PRN Administration Pain, Severe (Pain Scale 7-10) Ondansetron HCl 4 mg 02/14/21 11:12 02/16/21 02:47 Ondansetron Hcl 4 Mg/2 Ml Vial IVPUSH 4 mg Q8H PRN Administration Nausea and Vomiting Oxycodone HCl 5 mg 02/14/21 11:12 02/14/21 12:33 Oxycodone Hcl Immed Release 5 Mg Tablet PO 5 mg Q6H PRN Administration Pain, Moderate (Pain Scale 4-6 Sodium Chloride 3 ml 02/14/21 16:00 02/16/21 07:04 0.9 % Sodium Chloride Flush 3 Ml Syringe IVFLUSH Not Given QSHIFT [facility] Temazepam 15 mg 02/14/21 11:12 Temazepam 15 Mg Capsule PO BEDTIME PRN Insomnia Time Spent With Patient Time: Total time spent is greater than 50% in coordination of care (as documented) at patient's floor/unit and/or counseling patient: Time with patient: 15 - 24 minutes Quality Stroke Does the patient have a stroke diagnosis?: No VTE Prior VTE?: No VTE Risk Level:: Surgical - high VTE Device Contraindication: N/A - Device Ordered VTE Drug Contraindication: N/A - Med Ordered
--- NOTE | 2021-02-16 07:42 | MHC.SHP ---
Pre-Procedural Eval Section A Date of Service: 02/16/21 The patient is an INPATIENT: Yes Section B Chief Complaint: Small Bowel Obstruction Allergies: Allergies Allergy/AdvReac Type Severity Reaction Status Date / Time No Known Allergies Allergy Unknown Verified 01/11/21 10:58 [No Known Allergies*] Plan Diagnosis/Plan: Unchanged I have reviewed the history and physical and performed a pertinent physical examination on my patient. No changes have occurred unless specified.
--- NOTE | 2021-02-16 12:56 | P.CONAN_ITS ---
[facility] Active Problems Active Problems: All Active Problems (Updated 02/14/21 @ 09:50 by Goldie [email or web address] DO) SBO (small bowel obstruction) (Acute) Cataract (Acute) Preop exam for internal medicine (Acute) GERD (gastroesophageal reflux disease) (Acute) Obstructive sleep apnea (Acute) Obesity (BMI 30-39.9) (Acute) Bladder cancer (Acute) Dysuria (Acute) Hypercholesterolemia (Acute) Past Medical History Medical History Bladder cancer Erectile dysfunction GERD (gastroesophageal reflux disease) Hypercholesterolemia Obesity (BMI 30-39.9) Obstructive sleep apnea SVT (supraventricular tachycardia) Family History Family history of problems with anesthesia: No Surgical History Surgical History H/O arthroscopy of right knee History of appendectomy History of arthroplasty of left knee History of bladder surgery History of meniscectomy of left knee Hx of transurethral destruction of bladder lesion History of Problems with Anesthesia: No Social History Social History Household Members: Spouse Housing: House Do you presently have visiting nurse or other home services: No Alcohol intake: never Patient Tobacco Use Status: Former Tobacco user Use of substances other than those prescribed or required for medical reasons: No Currently Displaying Signs/Symptoms of Drug Intoxication Withdrawal: No Have you been hit, kicked, punched, or otherwise hurt by someone within the past year? If so, by whom?: No Do you feel safe in your current relationship?: Yes Is there a partner from a previous relationship who is making you feel unsafe now?: No Are you made to feel afraid or neglected: No Are you DNR?: No Advance Directives: Yes Advance Directives Information Provided: No Advance Directives on File: No Advance Directives Date on File: 02/14/21 Do you have thoughts of harming others: None Do you have a plan to hurt others: No Plan Recently lost weight without trying: No Eating poorly because of decreased appetite: No Nutrition Risks: No Nutritional Risk Poor oral hygiene: No service: Yes Current occupational status: retired Meds Allergies Allergy/AdvReac Type Severity Reaction Status Date / Time No Known Allergies Allergy Unknown Verified 01/11/21 10:58 [No Known Allergies*] Active Medications: Current Medications Generic Name Dose Route Start Last Admin Trade Name Freq PRN Reason Stop Dose Admin Acetaminophen 650 mg 02/14/21 11:12 02/15/21 19:36 Acetaminophen 325 Mg Tablet PO 650 mg Q6H PRN Administration Pain, Mild (Pain Scale 1-3) Benzocaine 1 lozenge 02/15/21 08:18 02/15/21 11:43 Throat Lozenge, Medicated Lozenge MUCOUS MEM 1 lozenge Q2H PRN Administration Sore Throat Heparin Sodium (Porcine) 5,000 unit 02/14/21 11:12 02/16/21 11:58 Heparin Sodium,Porcine 5,000 Unit/Ml Vial SUBCUT Not Given Q12H [facility] Dextrose/Lactated Ringer's 1,000 mls @ 125 mls/hr 02/14/21 11:12 02/16/21 12:14 D5lr IVCONT Not Given .Q8H [facility] Promethazine HCl 12.5 mg/ 50.5 mls @ 202 mls/hr 02/14/21 18:29 02/14/21 20:48 Sodium Chloride IV Infused Q6H PRN Infusion Nausea and Vomiting Morphine Sulfate 4 mg 02/14/21 11:12 02/15/21 22:18 Morphine Sulfate 4 Mg/Ml Cartridge IVPUSH 4 mg Q4H PRN Administration Pain, Severe (Pain Scale 7-10) Ondansetron HCl 4 mg 02/14/21 11:12 02/16/21 02:47 Ondansetron Hcl 4 Mg/2 Ml Vial IVPUSH 4 mg Q8H PRN Administration Nausea and Vomiting Oxycodone HCl 5 mg 02/14/21 11:12 02/14/21 12:33 Oxycodone Hcl Immed Release 5 Mg Tablet PO 5 mg Q6H PRN Administration Pain, Moderate (Pain Scale 4-6 Sodium Chloride 3 ml 02/14/21 16:00 02/16/21 07:04 0.9 % Sodium Chloride Flush 3 Ml Syringe IVFLUSH Not Given QSHIFT [facility] Temazepam 15 mg 02/14/21 11:12 Temazepam 15 Mg Capsule PO BEDTIME PRN Insomnia Home Medications Medication Instructions Recorded Confirmed Last Taken Type meloxicam 15 mg tablet 1 tab PO DAILY 02/14/21 02/14/21 Unknown History piroxicam 20 mg capsule 1 cap PO DAILY 02/14/21 02/14/21 Unknown History Exam Exam Date and Time: February 16, 2021 1256 Height,Weight and Vital Signs: Height 5 ft 6 in Weight 88.451 kg Last Vital Signs Temp 99.3 F 02/16/21 12:08 Pulse 105 H 02/16/21 12:08 Resp 18 02/16/21 12:08 BP 138/83 02/16/21 12:08 Pulse Ox 90 L 02/16/21 12:08 Pertinent Lab Results Pertinent Lab Results: Laboratory Tests 02/14/21 02/14/21 02/14/21 07:24 07:24 07:24 WBC 11.4 H RBC 5.43 Hgb 16.6 Hct 47.2 MCV 86.9 MCH 30.6 MCHC 35.2 RDW 12.5 Plt Count 178 MPV 9.7 Immature Gran % (Auto) 0.3 Neut % (Auto) 85.6 H Lymph % (Auto) 7.6 L [place] % (Auto) 6.0 Eos % (Auto) 0.3 Baso % (Auto) 0.2 Lymph # (Auto) 0.9 L [place] # (Auto) 0.7 Eos # (Auto) 0.0 Baso # (Auto) 0.0 Abs Immat Gran (auto) 0.03 Absolute Neuts (auto) 9.8 H Absolute Nucleated RBC 0.000 Nucleated RBC % (auto) 0.0 Sodium 138 Potassium 3.9 Chloride 99 Carbon Dioxide 29 Anion Gap 14 BUN 19 H Creatinine 0.96 Estim Creat Clear Calc 71.4 Estimated GFR > 60 Random Glucose 137 H Lactic Acid 1.4 Calcium 10.2 D Magnesium 2.0 Total Bilirubin 1.1 H Direct Bilirubin 0.4 AST 19 ALT 16 Alkaline Phosphatase 75 Troponin I High Sens Total Protein 7.7 Albumin 4.5 Lipase 10 Urine Color Urine Appearance Urine pH Ur Specific [place] Urine Protein Urine Glucose (UA) Urine Ketones Urine Blood Urine Nitrite Ur Leukocyte Esterase COVID-19 (ARPIT) COVID-19 Clin Com Blood Type Antibody Screen 02/14/21 02/14/21 02/14/21 07:24 08:08 08:08 WBC RBC Hgb Hct MCV MCH MCHC RDW Plt Count MPV Immature Gran % (Auto) Neut % (Auto) Lymph % (Auto) [place] % (Auto) Eos % (Auto) Baso % (Auto) Lymph # (Auto) [place] # (Auto) Eos # (Auto) Baso # (Auto) Abs Immat Gran (auto) Absolute Neuts (auto) Absolute Nucleated RBC Nucleated RBC % (auto) Sodium Potassium Chloride Carbon Dioxide Anion Gap BUN Creatinine Estim Creat Clear Calc Estimated GFR Random Glucose Lactic Acid Calcium Magnesium Total Bilirubin Direct Bilirubin AST ALT Alkaline Phosphatase Troponin I High Sens < 3.5 Total Protein Albumin Lipase Urine Color YELLOW Urine Appearance CLEAR Urine pH 6.5 Ur Specific [place] 1.020 Urine Protein TRACE Urine Glucose (UA) NEG Urine Ketones NEG Urine Blood NEG Urine Nitrite NEG Ur Leukocyte Esterase NEG COVID-19 (ARPIT) Negative COVID-19 [facility] Com See Note Blood Type Antibody Screen 02/15/21 02/15/21 02/16/21 05:39 05:39 08:55 WBC 5.4 RBC 5.38 Hgb 16.2 Hct 47.7 MCV 88.7 MCH 30.1 MCHC 34.0 RDW 12.6 Plt Count 169 MPV 10.0 Immature Gran % (Auto) 0.2 Neut % (Auto) 61.1 Lymph % (Auto) 21.3 [place] % (Auto) 16.3 H Eos % (Auto) 0.7 Baso % (Auto) 0.4 Lymph # (Auto) 1.1 L [place] # (Auto) 0.9 Eos # (Auto) 0.0 Baso # (Auto) 0.0 Abs Immat Gran (auto) 0.01 Absolute Neuts (auto) 3.3 Absolute Nucleated RBC 0.000 Nucleated RBC % (auto) 0.0 Sodium 139 Potassium 4.0 Chloride 100 Carbon Dioxide 30 H Anion Gap 13 BUN 23 H Creatinine 0.86 Estim Creat Clear Calc 79.7 Estimated GFR > 60 Random Glucose 125 H Lactic Acid Calcium 9.3 D Magnesium Total Bilirubin Direct Bilirubin AST ALT Alkaline Phosphatase Troponin I High Sens Total Protein Albumin Lipase Urine Color Urine Appearance Urine pH Ur Specific [place] Urine Protein Urine Glucose (UA) Urine Ketones Urine Blood Urine Nitrite Ur Leukocyte Esterase COVID-19 (ARPIT) COVID-19 [facility] Com Blood Type O Positive Antibody Screen NEGATIVE Airway Mallampati Class: II (Caps) TM Dist: >3cm Neck ROM: Full Heart: rrr Lungs: cta Assessment and Plan Assessment Anesthesia Assessment: Anesthesia Plan Discussed and Chart Reviewed Final Anesthetic Review Family History of Problems with Anesthesia: No History of Problems with Anesthesia: No NPO: Yes ASA Class: III Final Preanesthetic Review: No Changes in Pt Med Stat and Consent Obtained/Reviewed Patient Risk: Intermediate Procedure Risk: Intermediate Anesthetic Plan Anesthetic Plan: GA Disposition: Standard PACU
[2021-02-16] MEDS: Lactated Ringers 1,000 ML 50 ML IVCONT (13:12)
--- NOTE | 2021-02-16 14:28 | W.PM.OPN ---
Operative Note Operative Note Date of Service: 02/16/21 Narrative: Preoperative diagnosis:Small bowel obstruction Postoperative diagnosis:same due to adhesions Procedure:Laparoscopic lysis of adhesions Surgeon: Samy Wagner MD Wind Turbine Performance Engineer: Mariposa Sinha PA-C Anesthesia:General ET Indications for procedure:71 year old with nausea, vomiting, abdominal pain found to have a small bowel obstruction by CT. He was treated with NGT decompression without improvement. Operative findings: Small-bowel obstruction due to adhesions with a loop of proximal small bowel listed around it band. The bowel had a bluish discoloration but was viable once the adhesion was divided. Specimen: None Estimated blood loss: 2 mL Complications: None Procedure details: Patient was brought to the OR placed in a supine position. After administering general anesthesia the patient's abdomen was prepped with ChloraPrep and draped in a sterile fashion. A surgical time-out was called the consent confirmed. Patient received preoperative antibiotics and Venodyne boots were in place. Local anesthesia consisting of 0.25% Sensorcaine with epinephrine was infiltrated in a periumbilical region. Curvilinear incision was made around the umbilicus and carried down through the subcutaneous tissue up to the linea alba. This was then incised with a scalpel. The fascia was grasped with Carlos clamps and bluntly dissected down to the peritoneum. The peritoneum was then entered and a Farr trocar placed. This was then secured to the fascia using Polysorb sutures. The camera was then inserted in the abdomen insufflated to a pressure of 15 mm of mercury. A 5 mm trocar was then placed in the upper midline. A 2nd 5 mm trocars placed in the lower midline. The abdomen was then explored. Dilated bowel was noted mostly on the left side the abdomen. A single loop of bluish discolored bowel was identified in the left lower quadrant with an apparent obstructing band which was twisting around this loop of small bowel. No other areas of obstruction could be identified. Using the LigaSure in the adhesive band was gently divided. When the band was completely excised the bowel was observed for the next 30 minutes. The bowel wall immediately pinked up suggestive of good blood flow and peristalsis was noted within the bowel wall. Small bowel was then run for evidence of other adhesions. No other adhesions could be identified. Wounds were checked for hemostasis. Some serosanguineous fluid within the abdominal cavity was aspirated using the suction header dock. CO2 was then evacuated all trocars removed. Fascia was closed at the umbilical incision using interrupted 0 Polysorb sutures. Skin was closed in all incisions using a subcuticular 4-0 Polysorb suture. Steri-Strips 2 x 2 gauze and Tegaderm were then applied. The patient tolerated the procedure well. Sponge, instrument, and needle counts were reported as correct. The patient was transferred to PACU in stable condition.
[2021-02-16] MEDS: Metoprolol Tartrate 50 MG TABLET PO (21:13)
[2021-02-16] MEDS: Acetaminophen 325 MG TABLET 650 MG PO (21:31)
[2021-02-16] MEDS: Heparin Sodium,Porcine 5,000 UNIT/ML VIAL 5000 UNIT SUBCUT (22:11)
[2021-02-17] VITALS (7 sets, daily range): BP systolic 117–156; BP diastolic 64–84; PULSE 56–81; RESP 16–18; TEMP 36.1–36.6; O2SAT 93–98
[2021-02-17] MEDS: Dextrose 5 % and Lactated Ring 1,000 ML 125 ML IVCONT ×2 (05:45→20:25)
[2021-02-17 07:20] LABS: Anion Gap 10 (12-20); Blood Urea Nitrogen 21 mg/dL (9-16); Carbon Dioxide 35 mmol/L (22-29); Chloride 98 mmol/L (96-108); Creatinine Clr Calc Pharmacy 87.8; Estimated Glomerular Filt Rate > 60; Glucose Fasting 119 mg/dL (60-99); Potassium 3.6 mmol/L (3.3-5.1); Sodium 139 mmol/L (135-145)
--- NOTE | 2021-02-17 07:42 | PM.PNGS ---
Subjective Subjective Date of Service: 02/17/21 <Mariposa Sinha PA-C - Last Filed: 02/17/21 07:46> 02/17/21 <Samy Wagner MD - Last Filed: 02/17/21 08:31> Interval history: Feels much better this morning. Denies any abdominal pain. Denies further nausea, hiccups. No flatus yet. <Mariposa Sinha PA-C - Last Filed: 02/17/21 07:46> Physical Exam Vital Signs: Vital Signs: Last Vital Signs Temp 97.5 F 02/17/21 07:28 Pulse 81 02/17/21 07:28 Resp 17 02/17/21 07:28 BP 135/75 02/17/21 07:28 Pulse Ox 93 02/17/21 07:28 Body Mass Index 31.4 <Mariposa Sinha PA-C - Last Filed: 02/17/21 07:46> Const: General: comfortable, no acute distress and alert <Mariposa Sinha PA-C - Last Filed: 02/17/21 07:46> Orientation/consciousness: patient oriented x3 <Maripsoa Sinha PA-C - Last Filed: 02/17/21 07:46> HENMT: Other: NGT in place <Mariposa Sinha PA-C - Last Filed: 02/17/21 07:46> Resp: Effort & Inspection: normal respiratory effort <Mariposa Sinha PA-C - Last Filed: 02/17/21 07:46> Cardio: Rate: regular rate <Mariposa Sinha PA-C - Last Filed: 02/17/21 07:46> GI: Inspection: No distended and Yes incision (dressings c/d/i) <TARIK Sumner Last Filed: 02/17/21 07:46> Palpation (GI): Soft to palpation, nontender, no guarding and not rigid <TARIK Sumner Last Filed: 02/17/21 07:46> Percussion: Yes normal to percussion <TARIK Sumner Last Filed: 02/17/21 07:46> Skin: General skin exam: no rashes or lesions noted <Mariposa Sinha PA-C - Last Filed: 02/17/21 07:46> Neuro: General: patient oriented x3 <Mariposa Sinha PA-C - Last Filed: 02/17/21 07:46> Extrem: General: Yes no clubbing, cyanosis or edema <Mariposa Sinha PA-C - Last Filed: 02/17/21 07:46> Procedures Date of Service Date of Service: 02/17/21 <Mariposa Sinha PA-C - Last Filed: 02/17/21 07:46> Progress Note: A&P Assessment and plan (1) SBO (small bowel obstruction): Status: Acute <Mariposa Sinha PA-C - Last Filed: 02/17/21 07:46> Assessment and Plan: POD #1 s/p laparoscopic enterolysis. He is doing well post op. VSS. Abd exam improved- soft, nontender, nondistended- dressings c/d/i. NGT clamped this am. Check residual in 4 hr. If remains asymptomatic with low residual, will d/c NGT and advance to clear liquids. Strongly encouraged ambulation and IS use. Patient comfortable with plan. <Mariposa Sinha PA-C - Last Filed: 02/17/21 07:46> POD #1 s/p laparoscopic enterolysis. He is doing well post op. VSS. Abd exam improved- soft, nontender, nondistended- dressings c/d/i. NGT clamped this am. Check residual in 4 hr. If remains asymptomatic with low residual, will d/c NGT and advance to clear liquids. Strongly encouraged ambulation and IS use. Patient comfortable with plan. Agree with the above assessment and plan. Patient reports no abdominal pain at this time his hiccups are no longer present. He denies flatus or BM as of yet. Will clamp NG tube and check residuals as noted above. <Samy Wagner MD - Last Filed: 02/17/21 08:31> Fall Risk Details Current Medications: Current Medications Generic Name Dose Route Start Last Admin Trade Name Freq PRN Reason Stop Dose Admin Acetaminophen 650 mg 02/14/21 11:12 02/16/21 21:31 Acetaminophen 325 Mg Tablet PO 650 mg Q6H PRN Administration Pain, Mild (Pain Scale 1-3) Benzocaine 1 lozenge 02/15/21 08:18 02/15/21 11:43 Throat Lozenge, Medicated Lozenge MUCOUS MEM 1 lozenge Q2H PRN Administration Sore Throat Fentanyl 50 mcg 02/16/21 14:48 Fentanyl Citrate/Pf 100 Mcg/2 Ml Vial IVPUSH Q5M PRN Pain, Severe (Pain Scale 7-10) Heparin Sodium (Porcine) 5,000 unit 02/14/21 11:12 02/16/21 22:11 Heparin Sodium,Porcine 5,000 Unit/Ml Vial SUBCUT 5,000 unit Q12H PANCHITO Administration Dextrose/Lactated Ringer's 1,000 mls @ 125 mls/hr 02/14/21 11:12 02/17/21 05:45 D5lr IVCONT 125 mls/hr .Q8H PANCHITO Administration Promethazine HCl 12.5 mg/ 50.5 mls @ 202 mls/hr 02/14/21 18:29 02/14/21 20:48 Sodium Chloride IV Infused Q6H PRN Infusion Nausea and Vomiting Metoprolol Tartrate 50 mg 02/16/21 21:00 02/16/21 21:13 Metoprolol Tartrate 50 Mg Tablet PO 50 mg BID PANCHITO Administration Protocol Morphine Sulfate 4 mg 02/14/21 11:12 02/15/21 22:18 Morphine Sulfate 4 Mg/Ml Cartridge IVPUSH 4 mg Q4H PRN Administration Pain, Severe (Pain Scale 7-10) Ondansetron HCl 4 mg 02/14/21 11:12 02/16/21 02:47 Ondansetron Hcl 4 Mg/2 Ml Vial IVPUSH 4 mg Q8H PRN Administration Nausea and Vomiting Sodium Chloride 3 ml 02/14/21 16:00 02/17/21 07:02 0.9 % Sodium Chloride Flush 3 Ml Syringe IVFLUSH Not Given QSHIFT PANCHITO Temazepam 15 mg 02/14/21 11:12 Temazepam 15 Mg Capsule PO BEDTIME PRN Insomnia <Mariposa Sinha PA-C - Last Filed: 02/17/21 07:46> Time Spent With Patient Time: Total time spent is greater than 50% in coordination of care (as documented) at patient's floor/unit and/or counseling patient: <Mariposa Sinha PA-C - Last Filed: 02/17/21 07:46> Time with patient: 15 - 24 minutes <Mariposa Sinha PA-C - Last Filed: 02/17/21 07:46> Quality Stroke Does the patient have a stroke diagnosis?: No <Mariposa Sinha PA-C - Last Filed: 02/17/21 07:46> VTE Prior VTE?: No <Mariposa Sinha PA-C - Last Filed: 02/17/21 07:46> VTE Risk Level:: Surgical - high <TARIK Sumner Last Filed: 02/17/21 07:46> VTE Device Contraindication: N/A - Device Ordered <Mariposa Sinha PA-C - Last Filed: 02/17/21 07:46> VTE Drug Contraindication: N/A - Med Ordered <Mariposa Sinha PA-C - Last Filed: 02/17/21 07:46>
[2021-02-17] MEDS: Metoprolol Tartrate 50 MG TABLET PO ×2 (08:32→20:25)
[2021-02-17] MEDS: Heparin Sodium,Porcine 5,000 UNIT/ML VIAL 5000 UNIT SUBCUT ×2 (11:38→21:20)
--- NOTE | 2021-02-17 15:50 | HO.POSTANES ---
Post Anesthesia Evaluation Post Anesthesia Evaluation Vital Signs: Vital Signs Temp Pulse Resp BP Pulse Ox 02/17/21 15:25 97.5 F 77 16 126/68 93 02/17/21 11:35 97.2 F 72 18 126/64 96 02/17/21 07:28 97.5 F 81 17 135/75 93 02/17/21 04:00 97.6 F 56 18 130/66 94 Anesthesia: General Endotracheal-GETA Mental Status: Awake Pain Control: Satisfactory Nausea/Vomiting: None Hydration: Adequate Anesthesia-Related Issues: No Anes. Related Issues
[2021-02-17] MEDS: Morphine Sulfate 4 MG/ML CARTRIDGE IVPUSH (20:25)
[2021-02-17] MEDS: Throat Lozenge, Medicated LOZENGE 1 LOZENGE MUCOUS MEM (20:26)
[2021-02-18] VITALS (7 sets, daily range): BP systolic 116–164; BP diastolic 66–84; PULSE 64–90; RESP 16–18; TEMP 36–36.8; O2SAT 92–97
[2021-02-18] MEDS: Dextrose 5 % and Lactated Ring 1,000 ML 125 ML IVCONT ×3 (04:04→19:00)
[2021-02-18] MEDS: Morphine Sulfate 4 MG/ML CARTRIDGE IVPUSH (04:05)
[2021-02-18] MEDS: Metoprolol Tartrate 50 MG TABLET PO ×2 (08:11→20:47)
[2021-02-18] MEDS: Acetaminophen 325 MG TABLET 650 MG PO (08:15)
--- NOTE | 2021-02-18 08:18 | PM.PNGS ---
Subjective Subjective Date of Service: 02/18/21 <Mariposa Sinha PA-C - Last Filed: 02/18/21 08:22> 02/18/21 <Samy Wagner MD - Last Filed: 02/18/21 08:25> Interval history: NGT clamped yesterday but patient developed nausea and had high residual after unclamping. NGT therefore left in place. He is feeling better this morning but tired. Had a large bowel movement last night. Has mild incisional pain but comfortable. Reports hallucinations with morphine. <Mariposa Sinha PA-C - Last Filed: 02/18/21 08:22> Physical Exam Vital Signs: Vital Signs: Last Vital Signs Temp 97.1 F 02/18/21 07:45 Pulse 80 02/18/21 07:45 Resp 17 02/18/21 07:45 BP 127/74 02/18/21 07:45 Pulse Ox 92 02/18/21 07:45 Body Mass Index 31.4 <Mariposa Sinha PA-C - Last Filed: 02/18/21 08:22> Const: General: healthy appearing, comfortable, no acute distress and alert <Mariposa Sinha PA-C - Last Filed: 02/18/21 08:22> Orientation/consciousness: patient oriented x3 <TARIK Sumner Last Filed: 02/18/21 08:22> Resp: Effort & Inspection: normal respiratory effort <Mariposa Sinha PA-C - Last Filed: 02/18/21 08:22> Cardio: Rate: regular rate <Mariposa Sinha PA-C - Last Filed: 02/18/21 08:22> GI: Inspection: Yes distended (mild) and Yes incision (clean) <TARIK Sumner Last Filed: 02/18/21 08:22> Palpation (GI): Soft to palpation, Tenderness to palpation present (GI) (very mild, incisional), no guarding and not rigid <TARIK Sumner Last Filed: 02/18/21 08:22> Skin: General skin exam: no rashes or lesions noted <TARIK Sumner Last Filed: 02/18/21 08:22> Neuro: General: patient oriented x3 <Mariposa Sinha PA-C - Last Filed: 02/18/21 08:22> Extrem: General: Yes no clubbing, cyanosis or edema <Mariposa Sinha PA-C - Last Filed: 02/18/21 08:22> Procedures Date of Service Date of Service: 02/18/21 <Mariposa Sinha PA-C - Last Filed: 02/18/21 08:22> Progress Note: A&P Assessment and plan (1) SBO (small bowel obstruction): Status: Acute <Mariposa Sinha PA-C - Last Filed: 02/18/21 08:22> Assessment and Plan: POD #2 s/p laparoscopic enterolysis. He continues to do well post op and is now moving his bowels. Incisions clean. Will attempt another clamping trial of NGT today. Check residual in 4 hr. If remains asymptomatic with low residual, will d/c NGT and advance to clear liquids. Strongly encouraged ambulation and IS use. Patient comfortable with plan.?Avoid morphine- added PO PRN analgesics. <Mariposa Sinha PA-C - Last Filed: 02/18/21 08:22> POD #2 s/p laparoscopic enterolysis. He continues to do well post op and is now moving his bowels. Incisions clean. Will attempt another clamping trial of NGT today. Check residual in 4 hr. If remains asymptomatic with low residual, will d/c NGT and advance to clear liquids. Strongly encouraged ambulation and IS use. Patient comfortable with plan.?Avoid morphine- added PO PRN analgesics. Agree with the above assessment and plan. Major complaint is sore throat from NGT. Abdomen much improved, incisions clean and intact. Now moving bowels. Clamping trial started again. Can start clear liquids if NGT removed. <Samy Wagner MD - Last Filed: 02/18/21 08:25> Fall Risk Details Current Medications: Current Medications Generic Name Dose Route Start Last Admin Trade Name Freq PRN Reason Stop Dose Admin Acetaminophen 650 mg 02/14/21 11:12 02/18/21 08:15 Acetaminophen 325 Mg Tablet PO 650 mg Q6H PRN Administration Pain, Mild (Pain Scale 1-3) Benzocaine 1 lozenge 02/15/21 08:18 02/17/21 20:26 Throat Lozenge, Medicated Lozenge MUCOUS MEM 1 lozenge Q2H PRN Administration Sore Throat Fentanyl 50 mcg 02/16/21 14:48 Fentanyl Citrate/Pf 100 Mcg/2 Ml Vial IVPUSH Q5M PRN Pain, Severe (Pain Scale 7-10) Heparin Sodium (Porcine) 5,000 unit 02/14/21 11:12 02/17/21 21:20 Heparin Sodium,Porcine 5,000 Unit/Ml Vial SUBCUT 5,000 unit Q12H PANCHITO Administration Dextrose/Lactated Ringer's 1,000 mls @ 125 mls/hr 02/14/21 11:12 02/18/21 04:04 D5lr IVCONT 125 mls/hr .Q8H PANCHITO Administration Promethazine HCl 12.5 mg/ 50.5 mls @ 202 mls/hr 02/14/21 18:29 02/17/21 16:04 Sodium Chloride IV Infused Q6H PRN Infusion Nausea and Vomiting Metoprolol Tartrate 50 mg 02/16/21 21:00 02/18/21 08:11 Metoprolol Tartrate 50 Mg Tablet PO 50 mg BID PANCHITO Administration Protocol Morphine Sulfate 4 mg 02/14/21 11:12 02/18/21 04:05 Morphine Sulfate 4 Mg/Ml Cartridge IVPUSH 4 mg Q4H PRN Administration Pain, Severe (Pain Scale 7-10) Ondansetron HCl 4 mg 02/14/21 11:12 02/17/21 11:38 Ondansetron Hcl 4 Mg/2 Ml Vial IVPUSH 4 mg Q8H PRN Administration Nausea and Vomiting Oxycodone HCl 5 mg 02/18/21 08:17 Oxycodone Hcl Immed Release 5 Mg Tablet PO Q4H PRN Pain, Moderate (Pain Scale 4-6 Oxycodone HCl 10 mg 02/18/21 08:17 Oxycodone Hcl Immed Release 5 Mg Tablet PO Q4H PRN Pain, Severe (Pain Scale 7-10) Sodium Chloride 3 ml 02/14/21 16:00 02/18/21 08:16 0.9 % Sodium Chloride Flush 3 Ml Syringe IVFLUSH Not Given QSHIFT PANCHITO Temazepam 15 mg 02/14/21 11:12 Temazepam 15 Mg Capsule PO BEDTIME PRN Insomnia <Mariposa Sinha PA-C - Last Filed: 02/18/21 08:22> Time Spent With Patient Time: Total time spent is greater than 50% in coordination of care (as documented) at patient's floor/unit and/or counseling patient: <Mariposa Sinha PA-C - Last Filed: 02/18/21 08:22> Time with patient: 15 - 24 minutes <Mariposa Sinha PA-C - Last Filed: 02/18/21 08:22> Quality Stroke Does the patient have a stroke diagnosis?: No <Mariposa Sinha PA-C - Last Filed: 02/18/21 08:22> VTE Prior VTE?: No <Mariposa Sinha PA-C - Last Filed: 02/18/21 08:22> VTE Risk Level:: Surgical - high <Mariposa Sinha PA-C - Last Filed: 02/18/21 08:22> VTE Device Contraindication: N/A - Device Ordered <Mariposa Sinha PA-C - Last Filed: 02/18/21 08:22> VTE Drug Contraindication: N/A - Med Ordered <Mariposa Sinha PA-C - Last Filed: 02/18/21 08:22>
[2021-02-18] MEDS: oxyCODONE HCl Immed Release 5 MG TABLET 10 MG PO (08:56)
--- NOTE | 2021-02-18 10:07 | MHC.CM.PN ---
NURSE ANIMAL NURSE NOTE ELECTRONIC MEDICAL RECORD REVIEWED ALONG WITH CASE DISCUSSED WITH STAFF NURSE , MET WITH PATIENT AND HIS ADMITTED WITH DIAGNOSIS OF SMALL BOWEL OBSTRUCTION S/P LAPAROSCOPIC ENTEROLYSIS PATIENT IS MOVING HIS BOWELS ATTEMPT AT CLAMPING N-G TUBE UNSUCCESSFUL, RECLAMPED AGAIN THIS MORNING AND PLAN TO CHECK IN FOUR HOURS AND CHECK RESIDUAL IF PATIENT HAS LOW RESIDUel and without any symptoms , documentation of trying to star tclear liquids today , contniue iv fluids continue iv antiemetic and analgesics discharge plan home with hos , no services anticipated pcp dr rin carty patient instructed to call pcp for post surgical and hospital discharge follow up transportation patients surgical follow up as directed
[2021-02-18] MEDS: Heparin Sodium,Porcine 5,000 UNIT/ML VIAL 5000 UNIT SUBCUT ×2 (12:50→23:11)
[2021-02-19] VITALS (7 sets, daily range): BP systolic 128–149; BP diastolic 7–80; PULSE 70–78; RESP 16–20; TEMP 36.1–36.9; O2SAT 93–97
[2021-02-19] MEDS: Simethicone 80 MG TAB.CHEW PO (01:11)
[2021-02-19] MEDS: Dextrose 5 % and Lactated Ring 1,000 ML 125 ML IVCONT ×2 (02:29→09:10)
[2021-02-19] MEDS: Morphine Sulfate 4 MG/ML CARTRIDGE IVPUSH (02:30)
--- NOTE | 2021-02-19 03:41 | PC.NURSE ---
pt is complaining not feeling good he states i dont know if im going to vomit or have stool feels like lots of gas . feeling very uncomfortable . md phone engineer notified order receved for simeticone 80 mg po and may repeat in 30 min if not relieved. when reassessed pt requested another dose but when went back pt vomited 500 ml of liquid bile . asked for pain med morphine 4 mg iv given and he is resting now
[2021-02-19] MEDS: Metoprolol Tartrate 50 MG TABLET PO ×2 (08:03→22:10)
[2021-02-19] MEDS: Heparin Sodium,Porcine 5,000 UNIT/ML VIAL 5000 UNIT SUBCUT ×2 (10:32→22:11)
--- NOTE | 2021-02-19 12:35 | PM.PNGS ---
Subjective Subjective Date of Service: 02/19/21 Interval history: pt had a rough night with nausea and gas pains and then after some simethicone he had vomitted several times but then felt better. made npo overnight. by the am feeling better and has had several bowel movements and passing gas. Physical Exam Vital Signs: Vital Signs: Last Vital Signs Temp 97.4 F 02/19/21 12:00 Pulse 72 02/19/21 12:00 Resp 18 02/19/21 12:00 BP 143/74 H 02/19/21 12:00 Pulse Ox 97 02/19/21 12:00 Body Mass Index 31.4 Resp: Other: cta Cardio: Other: rrr GI: Other: soft nontender nondistended nontender better active bowel sounds Extrem: Other: no edema Procedures Date of Service Date of Service: 02/19/21 Progress Note: A&P Assessment and plan (1) SBO (small bowel obstruction): Status: Acute Assessment and Plan: pt pod#3 sp yuniel for sbo - doing well now - slow advancement of diet, ambulate, cont with ivf, check lytes and correct as needed he and understand and agree with the plan Fall Risk Details Current Medications: Current Medications Generic Name Dose Route Start Last Admin Trade Name Freq PRN Reason Stop Dose Admin Acetaminophen 650 mg 02/14/21 11:12 02/18/21 08:15 Acetaminophen 325 Mg Tablet PO 650 mg Q6H PRN Administration Pain, Mild (Pain Scale 1-3) Benzocaine 1 lozenge 02/15/21 08:18 02/17/21 20:26 Throat Lozenge, Medicated Lozenge MUCOUS MEM 1 lozenge Q2H PRN Administration Sore Throat Fentanyl 50 mcg 02/16/21 14:48 Fentanyl Citrate/Pf 100 Mcg/2 Ml Vial IVPUSH Q5M PRN Pain, Severe (Pain Scale 7-10) Heparin Sodium (Porcine) 5,000 unit 02/14/21 11:12 02/19/21 10:32 Heparin Sodium,Porcine 5,000 Unit/Ml Vial SUBCUT 5,000 unit Q12H PANCHITO Administration Dextrose/Lactated Ringer's 1,000 mls @ 125 mls/hr 02/14/21 11:12 02/19/21 09:10 D5lr IVCONT 125 mls/hr .Q8H PANCHITO Administration Promethazine HCl 12.5 mg/ 50.5 mls @ 202 mls/hr 02/14/21 18:29 02/17/21 16:04 Sodium Chloride IV Infused Q6H PRN Infusion Nausea and Vomiting Metoprolol Tartrate 50 mg 02/16/21 21:00 02/19/21 08:03 Metoprolol Tartrate 50 Mg Tablet PO 50 mg BID PANCHITO Administration Protocol Morphine Sulfate 4 mg 02/14/21 11:12 02/19/21 02:30 Morphine Sulfate 4 Mg/Ml Cartridge IVPUSH 4 mg Q4H PRN Administration Pain, Severe (Pain Scale 7-10) Ondansetron HCl 4 mg 02/14/21 11:12 02/18/21 20:47 Ondansetron Hcl 4 Mg/2 Ml Vial IVPUSH 4 mg Q8H PRN Administration Nausea and Vomiting Oxycodone HCl 5 mg 02/18/21 08:17 Oxycodone Hcl Immed Release 5 Mg Tablet PO Q4H PRN Pain, Moderate (Pain Scale 4-6 Oxycodone HCl 10 mg 02/18/21 08:17 02/18/21 08:56 Oxycodone Hcl Immed Release 5 Mg Tablet PO 10 mg Q4H PRN Administration Pain, Severe (Pain Scale 7-10) Sodium Chloride 3 ml 02/14/21 16:00 02/19/21 08:04 0.9 % Sodium Chloride Flush 3 Ml Syringe IVFLUSH Not Given QSHIFT PANCHITO Temazepam 15 mg 02/14/21 11:12 Temazepam 15 Mg Capsule PO BEDTIME PRN Insomnia Time Spent With Patient Time: Total time spent is greater than 50% in coordination of care (as documented) at patient's floor/unit and/or counseling patient: Time with patient: 25 - 35 minutes Quality Stroke Does the patient have a stroke diagnosis?: No VTE Prior VTE?: No VTE Risk Level:: Surgical - high VTE Device Contraindication: N/A - Device Ordered VTE Drug Contraindication: N/A - Med Ordered
[2021-02-19 13:26] LABS: Magnesium 1.8 mg/dL (1.6-2.6); Phosphorus 2.9 mg/dL (2.7-4.5)
[2021-02-19 13:29] LABS: Anion Gap 10 (12-20); Blood Urea Nitrogen 15 mg/dL (9-16); Calcium 8.3 mg/dL (8.4-10.2); Carbon Dioxide 29 mmol/L (22-29); Chloride 105 mmol/L (96-108); Creatinine Clr Calc Pharmacy 85.6; Estimated Glomerular Filt Rate > 60; Glucose Random 99 mg/dL (60-115); Potassium 3.9 mmol/L (3.3-5.1); Sodium 140 mmol/L (135-145)
[2021-02-19] MEDS: Acetaminophen 325 MG TABLET 650 MG PO (14:33)
[2021-02-19] MEDS: Temazepam 15 MG CAPSULE PO (22:23)
[2021-02-20] MEDS: Dextrose 5 % and Lactated Ring 1,000 ML 125 ML IVCONT ×4 (00:18→23:56)
[2021-02-20 03:24] VITALS: BP 126/72; PULSE 64; RESP 18; TEMP 36.4; O2SAT 95
[2021-02-20 07:42] VITALS: BP 135/74; PULSE 69; RESP 18; TEMP 36.1; O2SAT 96
[2021-02-20] MEDS: Metoprolol Tartrate 50 MG TABLET PO ×2 (09:15→21:34)
[2021-02-20 12:00] VITALS: BP 146/78; PULSE 61; RESP 17; TEMP 36.1; O2SAT 96
[2021-02-20] MEDS: Heparin Sodium,Porcine 5,000 UNIT/ML VIAL 5000 UNIT SUBCUT ×2 (12:10→21:34)
--- NOTE | 2021-02-20 13:29 | PM.PNGS ---
Subjective Subjective Date of Service: 02/20/21 Interval history: doing better, little stool but not much more gas, burping some, less nausea and no vomiting Physical Exam Vital Signs: Vital Signs: Last Vital Signs Temp 96.9 F 02/20/21 12:00 Pulse 61 02/20/21 12:00 Resp 17 02/20/21 12:00 BP 146/78 H 02/20/21 12:00 Pulse Ox 96 02/20/21 12:00 Body Mass Index 31.4 Const: Other: nad Resp: Other: cta Cardio: Other: rrr GI: Other: soft nontender mild distension - still with some hyp bowel sounds but improving Extrem: Other: no edema Procedures Date of Service Date of Service: 02/20/21 Progress Note: A&P Assessment and plan (1) SBO (small bowel obstruction): Status: Acute Assessment and Plan: doing well, ileus still ongoing and hypo bs and burping mke me cautious to advance diet too fast. cont with ambulation and if better gas and bowel movement then advance to regular diet and heplock. he and understand and agree with the plan Fall Risk Details Current Medications: Current Medications Generic Name Dose Route Start Last Admin Trade Name Freq PRN Reason Stop Dose Admin Acetaminophen 650 mg 02/14/21 11:12 02/19/21 14:33 Acetaminophen 325 Mg Tablet PO 650 mg Q6H PRN Administration Pain, Mild (Pain Scale 1-3) Benzocaine 1 lozenge 02/15/21 08:18 02/17/21 20:26 Throat Lozenge, Medicated Lozenge MUCOUS MEM 1 lozenge Q2H PRN Administration Sore Throat Fentanyl 50 mcg 02/16/21 14:48 Fentanyl Citrate/Pf 100 Mcg/2 Ml Vial IVPUSH Q5M PRN Pain, Severe (Pain Scale 7-10) Heparin Sodium (Porcine) 5,000 unit 02/14/21 11:12 02/20/21 12:10 Heparin Sodium,Porcine 5,000 Unit/Ml Vial SUBCUT 5,000 unit Q12H PANCHITO Administration Dextrose/Lactated Ringer's 1,000 mls @ 125 mls/hr 02/14/21 11:12 02/20/21 12:12 D5lr IVCONT Not Given .Q8H PANCHITO Promethazine HCl 12.5 mg/ 50.5 mls @ 202 mls/hr 02/14/21 18:29 02/17/21 16:04 Sodium Chloride IV Infused Q6H PRN Infusion Nausea and Vomiting Metoprolol Tartrate 50 mg 02/16/21 21:00 02/20/21 09:15 Metoprolol Tartrate 50 Mg Tablet PO 50 mg BID PANCHITO Administration Protocol Morphine Sulfate 4 mg 02/14/21 11:12 02/19/21 02:30 Morphine Sulfate 4 Mg/Ml Cartridge IVPUSH 4 mg Q4H PRN Administration Pain, Severe (Pain Scale 7-10) Ondansetron HCl 4 mg 02/14/21 11:12 02/18/21 20:47 Ondansetron Hcl 4 Mg/2 Ml Vial IVPUSH 4 mg Q8H PRN Administration Nausea and Vomiting Oxycodone HCl 5 mg 02/18/21 08:17 Oxycodone Hcl Immed Release 5 Mg Tablet PO Q4H PRN Pain, Moderate (Pain Scale 4-6 Oxycodone HCl 10 mg 02/18/21 08:17 02/18/21 08:56 Oxycodone Hcl Immed Release 5 Mg Tablet PO 10 mg Q4H PRN Administration Pain, Severe (Pain Scale 7-10) Sodium Chloride 3 ml 02/14/21 16:00 02/20/21 07:52 0.9 % Sodium Chloride Flush 3 Ml Syringe IVFLUSH Not Given QSHIFT [facility] Temazepam 15 mg 02/14/21 11:12 02/19/21 22:23 Temazepam 15 Mg Capsule PO 15 mg BEDTIME PRN Administration Insomnia Time Spent With Patient Time: Total time spent is greater than 50% in coordination of care (as documented) at patient's floor/unit and/or counseling patient: Time with patient: 15 - 24 minutes Quality Stroke Does the patient have a stroke diagnosis?: No VTE Prior VTE?: No VTE Risk Level:: Surgical - high VTE Device Contraindication: N/A - Device Ordered VTE Drug Contraindication: N/A - Med Ordered
[2021-02-20 15:19] VITALS: BP 147/84; PULSE 71; RESP 20; TEMP 36; O2SAT 97
[2021-02-20 19:10] VITALS: BP 161/83; PULSE 76; RESP 20; TEMP 36.2; O2SAT 97
[2021-02-20 23:35] VITALS: BP 150/81; PULSE 69; RESP 16; TEMP 36.2; O2SAT 96
[2021-02-20] MEDS: Temazepam 15 MG CAPSULE PO (23:53)
[2021-02-21 00:56] VITALS: RESP 18
[2021-02-21 03:49] VITALS: BP 133/67; PULSE 65; RESP 18; TEMP 36.4; O2SAT 95
[2021-02-21 07:45] VITALS: BP 147/82; PULSE 74; RESP 18; TEMP 36.1; O2SAT 97
--- NOTE | 2021-02-21 08:24 | PM.PNGS ---
Subjective Subjective Date of Service: 02/21/21 <Mariposa Sinha PA-C - Last Filed: 02/21/21 08:27> 02/21/21 <Jonah Evangelista MD - Last Filed: 02/21/21 09:46> Interval history: Feels much better this morning. Passing flatus and had large bowel movement last night. Tolerating clears and wants solid food. Denies any abdominal pain, nausea or vomiting. <Mariposa Sinha PA-C - Last Filed: 02/21/21 08:27> Physical Exam Vital Signs: Vital Signs: Last Vital Signs Temp 97.0 F 02/21/21 07:45 Pulse 74 02/21/21 07:45 Resp 18 02/21/21 07:45 BP 147/82 H 02/21/21 07:45 Pulse Ox 97 02/21/21 07:45 Body Mass Index 31.4 <TARIK Sumner Last Filed: 02/21/21 08:27> Const: General: comfortable, no acute distress and alert <Mariposa Sinha PA-C - Last Filed: 02/21/21 08:27> Orientation/consciousness: patient oriented x3 <TARIK Sumner Last Filed: 02/21/21 08:27> Resp: Effort & Inspection: normal respiratory effort <TARIK Sumner Last Filed: 02/21/21 08:27> Cardio: Rate: regular rate <TARIK Sumner Last Filed: 02/21/21 08:27> GI: Inspection: No distended and Yes incision (clean) <TARIK Sumner Last Filed: 02/21/21 08:27> Palpation (GI): Soft to palpation, nontender, no guarding and not rigid <TARIK Sumner Last Filed: 02/21/21 08:27> Percussion: Yes normal to percussion <TARIK Sumner Last Filed: 02/21/21 08:27> Skin: General skin exam: no rashes or lesions noted <TARIK Sumner Last Filed: 02/21/21 08:27> Neuro: General: patient oriented x3 <Mariposa Sinha PA-C - Last Filed: 02/21/21 08:27> Extrem: General: Yes no clubbing, cyanosis or edema <Mariposa Sinha PA-C - Last Filed: 02/21/21 08:27> Procedures Date of Service Date of Service: 02/21/21 <Mariposa Sinha PA-C - Last Filed: 02/21/21 08:27> Progress Note: A&P Assessment and plan (1) SBO (small bowel obstruction): Status: Acute <Mariposa Sinha PA-C - Last Filed: 02/21/21 08:27> Assessment and Plan: Started to have good BMs last night Feels much better Abdomen soft, nondistended, incisions well healed Looks well Diet as tolerated today Possible DC home later today Seen and examined - agree with FABIENNE Sinha <Jonah Evangelista MD - Last Filed: 02/21/21 09:46> Assessment and Plan: POD #5 s/p laparoscopic enterolysis for SBO, developed ileus post op. Ileus appears resolved. Has full bowel function returned. Will advance to solid diet. If tolerating, stable for discharge to home today with f/u in office with Dr. Wagner in one week. <Mariposa Sinha PA-C - Last Filed: 02/21/21 08:27> Fall Risk Details Current Medications: Current Medications Generic Name Dose Route Start Last Admin Trade Name Freq PRN Reason Stop Dose Admin Acetaminophen 650 mg 02/14/21 11:12 02/19/21 14:33 Acetaminophen 325 Mg Tablet PO 650 mg Q6H PRN Administration Pain, Mild (Pain Scale 1-3) Benzocaine 1 lozenge 02/15/21 08:18 02/17/21 20:26 Throat Lozenge, Medicated Lozenge MUCOUS MEM 1 lozenge Q2H PRN Administration Sore Throat Fentanyl 50 mcg 02/16/21 14:48 Fentanyl Citrate/Pf 100 Mcg/2 Ml Vial IVPUSH Q5M PRN Pain, Severe (Pain Scale 7-10) Heparin Sodium (Porcine) 5,000 unit 02/14/21 11:12 02/20/21 21:34 Heparin Sodium,Porcine 5,000 Unit/Ml Vial SUBCUT 5,000 unit Q12H PANCHITO Administration Dextrose/Lactated Ringer's 1,000 mls @ 125 mls/hr 02/14/21 11:12 02/20/21 23:56 D5lr IVCONT 125 mls/hr .Q8H PANCHITO Administration Promethazine HCl 12.5 mg/ 50.5 mls @ 202 mls/hr 02/14/21 18:29 02/17/21 16:04 Sodium Chloride IV Infused Q6H PRN Infusion Nausea and Vomiting Metoprolol Tartrate 50 mg 02/16/21 21:00 02/20/21 21:34 Metoprolol Tartrate 50 Mg Tablet PO 50 mg BID PANCHITO Administration Protocol Morphine Sulfate 4 mg 02/14/21 11:12 02/19/21 02:30 Morphine Sulfate 4 Mg/Ml Cartridge IVPUSH 4 mg Q4H PRN Administration Pain, Severe (Pain Scale 7-10) Ondansetron HCl 4 mg 02/14/21 11:12 02/18/21 20:47 Ondansetron Hcl 4 Mg/2 Ml Vial IVPUSH 4 mg Q8H PRN Administration Nausea and Vomiting Oxycodone HCl 5 mg 02/18/21 08:17 Oxycodone Hcl Immed Release 5 Mg Tablet PO Q4H PRN Pain, Moderate (Pain Scale 4-6 Oxycodone HCl 10 mg 02/18/21 08:17 02/18/21 08:56 Oxycodone Hcl Immed Release 5 Mg Tablet PO 10 mg Q4H PRN Administration Pain, Severe (Pain Scale 7-10) Sodium Chloride 3 ml 02/14/21 16:00 02/20/21 23:54 0.9 % Sodium Chloride Flush 3 Ml Syringe IVFLUSH Not Given QSHIFT PANCHITO Temazepam 15 mg 02/14/21 11:12 02/20/21 23:53 Temazepam 15 Mg Capsule PO 15 mg BEDTIME PRN Administration Insomnia <Mariposa Sinha PA-C - Last Filed: 02/21/21 08:27> Time Spent With Patient Time: Total time spent is greater than 50% in coordination of care (as documented) at patient's floor/unit and/or counseling patient: <Mariposa Sinha PA-C - Last Filed: 02/21/21 08:27> Time with patient: 15 - 24 minutes <Mariposa Sinha PA-C - Last Filed: 02/21/21 08:27> Quality Stroke Does the patient have a stroke diagnosis?: No <Mariposa Sinha PA-C - Last Filed: 02/21/21 08:27> VTE Prior VTE?: No <Mariposa Sinha PA-C - Last Filed: 02/21/21 08:27> VTE Risk Level:: Surgical - high <Mariposa Sinha PA-C - Last Filed: 02/21/21 08:27> VTE Device Contraindication: N/A - Device Ordered <Mariposa Sinha PA-C - Last Filed: 02/21/21 08:27> VTE Drug Contraindication: N/A - Med Ordered <Mariposa Sinha PA-C - Last Filed: 02/21/21 08:27>
[2021-02-21] MEDS: Metoprolol Tartrate 50 MG TABLET PO (08:45)
[2021-02-21] MEDS: Heparin Sodium,Porcine 5,000 UNIT/ML VIAL 5000 UNIT SUBCUT (11:24)
[2021-02-21 11:49] VITALS: BP 144/80; PULSE 62; RESP 18; TEMP 36.2; O2SAT 97
--- NOTE | 2021-02-21 12:47 | MHC.CM.PN ---
DAVE RECEIVED A MESSAGE INDICATING BALJIT FROM THE [facility] WAS REQUESTING A RETURN CALL WITH AN UPDATE RE THIS PT. CM CALLED THE NUMBER PROVIDED, [phone], HOWEVER THERE WAS NO ANSWER. CM WILL ATTEMPT TO CALL AGAIN LATER IN THE DAY.
--- NOTE | 2021-02-21 13:31 | MHC.CM.PN ---
PT CLEARED TO DC HOME TODAY WITH NO SERVICES. D[facility] [phone] AND INFORMED HER OF THE PENDING DC. 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 PER NOTES. PT WILL BE TRANSPORTED HOME BY FAMILY HOWEVER [facility] INDICATED [facility] IF NEEDED. PT WILL DC HOME TODAY WITH NO NEW SERVICES TO TRANSPORT
--- NOTE | 2021-02-21 14:04 | PM.DS ---
DS: Providers Provider Date of Service: 02/21/21 Date of admission: 02/14/21 10:36 Primary care physician: Any Jackson MD DS: Diagnosis Discharge Diagnosis (1) SBO (small bowel obstruction): Status: Acute DS: Medications Discharge Medications Home Medications: Home Medications Medication Instructions Recorded Confirmed meloxicam 15 mg tablet 1 tab PO DAILY 02/14/21 02/14/21 piroxicam 20 mg capsule 1 cap PO DAILY 02/14/21 02/14/21 Previous Rx's Medication Instructions Recorded simvastatin 40 mg tablet 40 mg PO BEDTIME #90 tab 07/17/20 metoprolol tartrate 50 mg tablet 50 mg PO BID #180 tab 10/10/20 omeprazole 20 mg capsule,delayed 20 mg PO DAILY 90 Days #90 cap 01/18/21 release DS: Summary Hospital Course Hospital Course: BRIEF HPI: Volodymyr Richards is a 71 year old male with complaints of abdominal pain located diffusely since yesterday morning.? Pain is mostly in the upper abdomen and is associated with nausea without vomiting.? He felt the pain comes in waves.? He thought if he could only vomit the pain would improve.? He denied eating anything unusual and denies any sick exposures.? He denies a previous history of similar symptoms.? He has a history of kidney stones with feels the pain is different.? He reports moving his bowels twice yesterday and they were normal.? He has a previous history of an appendectomy performed when he was 8 years old.? He presents to the emergency department due to the pain and was found to have a small-bowel obstruction by CT of the abdomen and pelvis.?He denies a prior history of bowel obstructions.? There were no inciting events, aggravating or relieving factors. HOSPITAL COURSE: He was admitted to the surgical service for management of small-bowel obstruction. He was initially managed non operatively with conservative measures. The patient did not improve and had continued high NGT output associated with worsening pain, nausea and hiccups. He had no sign of return of bowel function. It was therefore decided to proceed surgery. He was added onto the OR schedule for that day. On 02/16/21, a laparoscopic lysis of adhesions was performed by Dr. Wagner without complication. He was found to have a small-bowel obstruction due to adhesions with a loop of proximal small bowel listed around it band. The patient tolerated the procedure well. He had an uncomplicated but slow recovery course. On POD #1, he felt significantly improved. His NGT was clamped but he failed the attempt as he had a high residual with increasing nausea. He was ambulated. The following day he began to pass flatus and had a bowel movement. His NGT was again clamped and had a low residual with no nausea or worsening abdominal pain. It was therefore removed and he was started on clear liquids. He developed some nausea the following day which resolved after episode of vomiting. He continued to pass flatus and move his bowels following this without further episodes of vomiting. He felt well and was tolerating clears and was advanced to a solid diet. He was reassessed later and he was tolerating this diet without any symptoms. He felt well and continued with good GI function. His abdomen was benign with clean incisions. He was therefore discharged to home on 02/21/21 in stable condition. He is to follow up with Dr. Wagner in office in 1 week. Status at Discharge Functional status at discharge: independent ambulation Overall status at discharge: patient is back to baseline Time Spent with Patient Time attestation: Total time spent providing and/or coordinating discharge services: Discharge coordination time: Greater than 30 minutes Quality: Stroke Does the patient have a stroke diagnosis?: No Physical Exam Vital Signs: Vital Signs: Last Vital Signs Temp 97.2 F 02/21/21 11:49 Pulse 62 02/21/21 11:49 Resp 18 02/21/21 11:49 BP 144/80 H 02/21/21 11:49 Pulse Ox 97 02/21/21 11:49 Body Mass Index 31.4 Const: General: comfortable, no acute distress and alert Orientation/consciousness: patient oriented x3 Resp: Effort & Inspection: normal respiratory effort GI: Inspection: No distended and Yes incision (clean) Palpation (GI): Soft to palpation, nontender, no guarding and not rigid Percussion: Yes normal to percussion Skin: General skin exam: no rashes or lesions noted Neuro: General: patient oriented x3 Extrem: General: Yes no clubbing, cyanosis or edema Discharge Plan Discharge Patient Disposition: Home, Self-Care Discharge Diagnosis: SBO Referrals: Samy Wagner MD [Physician] - 1 Week Po,Any Johnson MD [Primary Care Provider] - 1 Week Discharge Medications: Continued simvastatin 40 mg tablet 40 mg PO BEDTIME Qty: 90 RF: 3 metoprolol tartrate 50 mg tablet 50 mg PO BID Qty: 180 RF: 3 omeprazole 20 mg capsule,delayed release(DR/EC) 20 mg PO DAILY 90 Days Qty: 90 RF: 1 meloxicam 15 mg tablet 1 tab PO DAILY RF: 0 piroxicam 20 mg capsule 1 cap PO DAILY RF: 0 Discharge Orders: Discharge Order (Routine); Ordered 02/21/21 Ordered By: Mariposa Sinha Diet: advance to usual diet Activity on Discharge: No heavy lifting Stand Alone Forms: Patient Portal Discharge page Activity Restrictions/Additional Instructions: If the incision area is tender, you may apply an ice pack for short intervals (No more than 20 minutes on, followed by at least 20 minutes off). Do not apply heat. Do not use creams, lotions, or topical antibiotics unless instructed to do so by your surgeon. These can cause infection or allergic reaction. Ok to shower. You have steri strips (small white cloth strips) covering your incision- these will fall off ~1 week. No heavy lifting (>10lbs)! Call Your Doctor If: -Your temperature exceeds 101.5? F -You experience excessive pain or swelling -You have an unexpected reaction to medication -You have excessive bleeding -You experience continued vomiting/nausea -Your incision begins to separate -Your incision shows signs of infection such as increased redness, swelling, excessive pain, drainage (light blood or clear fluid is normal) or heat Care Plan Goals: Return to baseline health and activity following recovery period. Health Concerns: SBO s/p laparoscopic enterolysis Plan of Treatment: Follow up in office in 1 week. Assessment: 71 year old male admitted for SBO that ultimately required laparoscopic enterolysis. He is doing well post operatively and tolerating solid diet with return of GI function. He is stable for discharge to home with follow up in office.
--- NOTE | 2021-02-21 14:21 | PM.EVENT ---
Event Note Date of Service: 02/21/21 Event Note: Seen on follow-up He continues do well Passing flatus Tolerating diet Feels comfortable Abdomen remained soft He says he is ready to be discharged Okay to DC home Follow-up instructions given
== END 2021-02-21 14:00 | disposition home or self-care (01) | DRG 337 ==
LOC: HO.ED 09:50 → HO.EDOVER 10:43 → HO.S3 10:50
PROVIDERS: Physician Assistant Surgical; Surgery; Admitting Provider Surgery; Emergency Provider Emergency Medicine; PCP Internal Medicine; Visit Provider Surgery
PROC: 0DN84ZZ Release Small Intestine, Percutaneous Endoscopic Approach (ICD-10-PCS; principal; 2021-02-16 12:40)
DX: K56.50 Intestinal adhesions [bands], unspecified as to partial versus complete obstruction (principal); K21.9 Gastro-esophageal reflux disease without esophagitis; Z85.51 Personal history of malignant neoplasm of bladder; Z79.1 Long term (current) use of non-steroidal anti-inflammatories (NSAID); Z79.899 Other long term (current) drug therapy
CPT/HCPCS: 36415; 71045; 74021; 74177; 80048; 80076; 81003; 83605; 83690; 83735; 84100; 84484; 85025; 86850; 86900; 86901; 87635; 93005; 96374; 96375; 99285; J0330; J0690; J1100; J1170; J2250; J2270; J2370; J2405; J2550; J3010; Q9967

== ENCOUNTER → 2021-03-01 13:41 | Outpatient (BNVA) | payer MEDICARE, SELFPAY | PROVIDERS: PCP Internal Medicine; Referring Provider Internal Medicine; Visit Provider Surgery | DX: K56.609 Unspecified intestinal obstruction, unspecified as to partial versus complete obstruction (principal) | CPT/HCPCS: 99212 ==

== ENCOUNTER → 2021-03-07 13:16 | Outpatient (BNVA) | payer MEDICARE, OTHER, SELFPAY | PROVIDERS: PCP Internal Medicine; Referring Provider Internal Medicine; Visit Provider Internal Medicine | DX: I49.3 Ventricular premature depolarization (principal); I44.7 Left bundle-branch block, unspecified; I47.1 Supraventricular tachycardia; G47.33 Obstructive sleep apnea (adult) (pediatric); Z79.899 Other long term (current) drug therapy | CPT/HCPCS: 99212 ==

== ENCOUNTER → 2021-03-25 07:38 | Outpatient (REF) | payer MEDICARE, SELFPAY ==
--- NOTE | 2021-03-25 07:42 | HM_ITS ---
Total monitoring time 3days and 2 hrs. Underlying rhythm is sinus. Average heart rate 70/min; minimum 57/min; max 108/min. No atrial fibrillation/flutter. Rare supraventricular ectopy (0.07%); longest run 7 beats; rare ventricular ectopy (0.03%) one couplet. No patient events. MTDD
--- NOTE | 2021-03-25 07:42 | CA_ITS ---
Transthoracic Echocardiogram Patient (Last, First, Middle): Volodymyr Richards E Gender: Male Date of : 1950 Age: 71 Procedure Date: 03/25/2021 Procedure Type: Transthoracic Echocardiogram Location: OP Height: 167.64 cm Weight: 88.45 kg BSA: 1.98 m2 Heart Rate: bpm BP: 128 / 60 mmHg [employer] Manager: Referring MD: Tacos Shearer MD Symptoms: I47.1 - Supraventricular tachycardia Study Quality: Fair ECG Rhythm: Sinus Conclusions: - The left ventricular systolic function is normal. The calculated ejection fraction is 63% by biplane method. - Mildly increased right ventricular cavity size. - The left atrium is mildly dilated. - No obvious valvular pathology seen on this study. Findings Left Ventricle Normal left ventricular cavity size. There is mildly increased left ventricular wall thickness. The left ventricular systolic function is normal. The calculated ejection fraction is 63% by biplane method. There is no evidence of regional wall motion abnormalities. Diastolic function is normal for age. Right Ventricle Mildly increased right ventricular cavity size. There is normal right ventricular systolic function. Atria The left atrium is mildly dilated. The right atrium is normal in size. Aortic Valve There is a normal trileaflet aortic valve. There is no aortic valve stenosis. There is no aortic valve regurgitation. Mitral Valve The mitral valve appears normal. There is trace mitral valve regurgitation. There is no mitral valve stenosis. Pulmonic Valve The pulmonic valve was not well visualized. Tricuspid Valve Normal tricuspid valve structure. There is mild tricuspid valve regurgitation. The pulmonary artery systolic pressure is normal. Great Vessels The aortic annulus, sinuses of valsalva, and asc aorta are normal in size. Venous The inferior vena cava is normal in size and collapses greater than 50% with inspiration. Pericardium/Pleural There is no evidence of pericardial effusion. Prior Study Comparison No significant change compared to prior study dated: 01/27/2019. Recommendations, Care & Conclusions No obvious valvular pathology seen on this study. Measurements 2D Linear Measurements IVSd: 1.33 0.6-0.9/0.6-1.0 cm LVIDd: 4.25 3.9-5.3/4.2-5.9 cm LVIDd Index: 2.15 2.4-3.2/2.2-3.1 cm/m2 LVIDs: 2.80 2.0-3.6 cm LVPWd: 1.38 0.7-1.1 cm Ao Root: 3.40 2.1-3.5 cm LA Diam: 4.40 2.7-3.8/3.0-4.0 cm LAIDs Index: 2.22 1.5-2.3 cm/m2 LV Mass: 270.80 67-162/88-224 g LV Mass Index: 136.77 43-95/49-115 g/m2 LVOT Diam: 2.20 3.0+(-)1.3 cm 2D Systolic Function EF 4C: 63.00 >55% EF 2C: 66.40 >55% EF BiP: 63.00 >55% Mitral Valve MV Pk E: 0.78 MV PK A: 0.90 MV Decel Time: 198.00 E/A: 0.90 E'Lateral: 8.81 E'Medial: 8.81 E/E' Med: 8.80 E/E' Lat: 8.80 PHT: 58.00 MVA PHT: 3.79 Decel Braxton: 3.92 Aortic Valve AoV Pk Darell: 1.13 AoV Mn Darell: 0.75 AoV VTI: 0.29 AoV Pk Grad: 5.00 Aov Mn Grad: 3.00 SMITH Cont.VTI: 2.53 LVOT LVOT Pk Darell: 0.80 LVOT Mn Darell: 0.49 LVOT VTI: 0.19 LVOT Pk Grad: 3.00 LVOT Mn Grad: 1.00 LVOT Diam: 2.20 LVOT Area: 3.80 Diastolic Function MV Pk E: 0.78 MV Pk A: 0.90 E/A: 0.90 E'Medial: 8.81 E/E' Med: 8.80 E' Laterial: 8.81 E/E' Lat: 8.80 Right Ventricle TAPSE (mm): 25.00 TVS' Darell: 10.00 Tricuspid Valve TR Pk Darell: 2.50 TR Pk Grad: 25.00 Great Vessels Aorta Ao Root-2D: 3.40 2.0-3.7 cm Ao Asc: 3.30 2.1-3.4 cm Pulmonary Valve PV Pk Darell: 1.49 Peak PV Grad: 9.00 Updated in Other Vendor System with Status of Final Tacos Shearer MD electronically signed on 03/26/2021 2:07:17 PM with status of Final
== END ==
LOC: HO.CARD 07:38
PROVIDERS: Visit Provider Internal Medicine
DX: I47.1 Supraventricular tachycardia (principal)
CPT/HCPCS: 93242; 93306

== ENCOUNTER → 2021-04-21 08:38 | Outpatient (BNVA) | payer MEDICARE, SELFPAY | PROVIDERS: PCP Internal Medicine; Referring Provider Internal Medicine; Visit Provider Internal Medicine | DX: I49.3 Ventricular premature depolarization (principal); I44.7 Left bundle-branch block, unspecified; I47.1 Supraventricular tachycardia; G47.33 Obstructive sleep apnea (adult) (pediatric) | CPT/HCPCS: 99212 ==

== ENCOUNTER 2021-05-21 11:02 | Outpatient (REF) | payer MEDICARE, SELFPAY | END 2021-05-21 11:03 | disposition home or self-care (01) | LOC: HO.LNP 11:02 | PROVIDERS: Visit Provider Physician Assistant Medical | DX: Z20.822 Contact with and (suspected) exposure to COVID-19 (principal) | CPT/HCPCS: U0003; U0005 ==

== ENCOUNTER 2021-11-09 08:36 | Outpatient (REF) | payer MEDICARE, SELFPAY ==
[2021-11-09 17:06] LABS: Urine Cytology See Pathology rpt
== END 2021-11-09 08:37 | disposition home or self-care (01) ==
LOC: HO.LAB 08:36
PROVIDERS: PCP Internal Medicine; Visit Provider Urology
DX: C67.9 Malignant neoplasm of bladder, unspecified (principal)
CPT/HCPCS: 52000; 88112; 99212

== ENCOUNTER → 2021-12-05 08:58 | Outpatient (BNVA) | payer MEDICARE, SELFPAY | PROVIDERS: PCP Internal Medicine; Referring Provider Internal Medicine; Visit Provider Internal Medicine | DX: I49.3 Ventricular premature depolarization (principal); I44.7 Left bundle-branch block, unspecified; I47.1 Supraventricular tachycardia; I48.0 Paroxysmal atrial fibrillation; G47.33 Obstructive sleep apnea (adult) (pediatric) | CPT/HCPCS: 93005; 99212 ==

== ENCOUNTER 2021-12-13 08:49 | Outpatient (REF) | payer MEDICARE, SELFPAY ==
[2021-12-13 09:34] LABS: MANUAL DIFF FLAG NO
[2021-12-13 10:07] LABS: Basophils Percent Auto 0.5 % (0-2); Eosinophils Absolute Auto 0.1 X10*3/uL (0.0-0.4); Eosinophils Percent Auto 2.2 % (0-4); Hematocrit 46.3 % (42.0-52.0); Hemoglobin 15.8 g/dl (14.0-18.0); Imm Gran Abs Auto 0.01 X10*3/uL (0.00-0.03); Imm Gran Pct Auto 0.2 % (0.0-0.4); Lymphocytes Absolute Auto 1.9 X10*3/uL (1.2-4.9); Lymphocytes Percent Auto 32.6 % (20-40); Mean Corpuscular HGB Conc 34.1 g/dl (31.0-36.0); Mean Corpuscular Hemoglobin 29.8 pg (27.0-33.0); Mean Corpuscular Volume 87.4 fL (80.0-98.0); Monocytes Absolute Auto 0.6 X10*3/uL (0.1-1.2); Monocytes Percent Auto 10.1 % (2-11); Neutrophils Absolute Auto 3.2 x10*3/uL (2.0-8.3); Neutrophils Percent Auto 54.4 % (45-73); Platelet Count 188 X10*3/uL (160-400); Red Cell Distribution Width 12.3 % (11.0-16.0); White Blood Count 5.8 X10*3/uL (4.8-10.8)
[2021-12-13 10:50] LABS: Alanine Aminotransferase 19 U/L (0-40); Albumin Level 4.2 g/dL (3.5-5.0); Alkaline Phosphatase 65 U/L (39-117); Anion Gap 12 (12-20); Aspartate Amino Transferase 17 U/L (5-37); Bilirubin Total 0.6 mg/dL (0.0-1.0); Blood Urea Nitrogen 15 mg/dL (9-16); Calcium 9.4 mg/dL (8.4-10.2); Carbon Dioxide 25 mmol/L (22-29); Chloride 106 mmol/L (96-108); Cholesterol 175 mg/dL; Estimated Glomerular Filt Rate > 60; Glucose Random 104 mg/dL (60-115); HDL Cholesterol 43 mg/dL; LDL Cholesterol Calculated 115 mg/dl; Potassium 4.3 mmol/L (3.3-5.1); Sodium 139 mmol/L (135-145); Total Protein 7.5 g/dL (6.5-8.0); Triglycerides 89 mg/dL
[2021-12-13 10:55] LABS: Thyroid Stimulating Hormone 0.84 uIU/mL (0.32-4.0)
[2021-12-13 11:18] LABS: Folate 11.4 ng/mL (> or = 4.0); Vitamin B12 338 pg/mL (200-900)
== END 2021-12-13 08:50 | disposition home or self-care (01) ==
LOC: HO.LAB 08:49
PROVIDERS: PCP Internal Medicine; Referring Provider Internal Medicine; Visit Provider Podiatrist Foot & Ankle Surgery
DX: C67.9 Malignant neoplasm of bladder, unspecified (principal); E78.00 Pure hypercholesterolemia, unspecified
CPT/HCPCS: 36415; 80053; 80061; 82607; 82746; 84439; 84443; 85025

== ENCOUNTER → 2022-02-15 12:13 | Outpatient (BNVA) | payer MEDICARE, SELFPAY | PROVIDERS: PCP Internal Medicine; Referring Provider Internal Medicine; Visit Provider Internal Medicine | DX: I48.0 Paroxysmal atrial fibrillation (principal); I47.1 Supraventricular tachycardia; I49.3 Ventricular premature depolarization; I44.7 Left bundle-branch block, unspecified; G47.33 Obstructive sleep apnea (adult) (pediatric); Z79.899 Other long term (current) drug therapy; Z79.01 Long term (current) use of anticoagulants; Z86.16 Personal history of COVID-19 | CPT/HCPCS: 93005; 99212 ==

== ENCOUNTER 2022-04-07 13:09 | Outpatient (REF) | payer MEDICARE, SELFPAY ==
--- NOTE | ~2022-04-07 | CT_ITS ---
EXAMINATION: CT CHEST SCREENING CLINICAL INFORMATION: Former smoker. Quit 11 years ago. 60 pack year history. COMPARISON: Previous chest x-ray most recent February 2021 TECHNIQUE: Multidetector volumetric CT imaging of the chest is performed without contrast using low dose technique. Additional 2D coronal and sagittal reformatted images and axial 3D maximum intensity projection (MIP) images are generated on the CT workstation. This CT examination was performed using dose optimization techniques as appropriate, variously including the following: *Automated exposure control *Adjustment of mA and/or kV according to patient size (this includes techniques or standardized protocols for targeted exams where dose is matched to indication/reason for exam; i.e. extremities or head) *Use of iterative reconstruction technique DLP: 64 mGy-cm FINDINGS: LUNGS: There is evidence of emphysema. There is a 3 mm right upper lobe nodule axial image 1:30 series 5. There is a 3 mm left lower lobe nodule axial image 301 series 5. No endobronchial or endotracheal lesion. MEDIASTINUM: The mediastinum is normal. CORONARY ARTERY CALCIFICATION: Mild PLEURA: There is no pleural effusion. No pleural mass or thickening. AXILLA: No lymphadenopathy. UPPER ABDOMEN: Left renal cysts. OSSEOUS STRUCTURES: Degenerative changes. CT/CT lung screening IMPRESSION: Emphysema. Small pulmonary nodules. Mild coronary artery calcification. ASSESSMENT: Lung-RADS category 2: Benign RECOMMENDATION: Annual low-dose chest CT follow-up recommended.
== END 2022-04-07 13:10 | disposition home or self-care (01) ==
LOC: HO.CT 13:09
PROVIDERS: PCP Internal Medicine; Visit Provider Physician Assistant Medical
DX: Z87.891 Personal history of nicotine dependence (principal)
CPT/HCPCS: 71271; G0296

== ENCOUNTER 2022-04-11 08:46 | Outpatient (REF) | payer MEDICARE, SELFPAY ==
[2022-04-11 17:11] LABS: Urine Cytology See Pathology rpt
== END 2022-04-11 08:47 | disposition home or self-care (01) ==
LOC: HO.LAB 08:46
PROVIDERS: Visit Provider Urology
DX: C67.9 Malignant neoplasm of bladder, unspecified (principal)
CPT/HCPCS: 52000; 88112; 99212

== ENCOUNTER → 2022-05-15 13:10 | Outpatient (BNVA) | payer MEDICARE, SELFPAY | PROVIDERS: PCP Internal Medicine; Referring Provider Internal Medicine; Visit Provider Internal Medicine | DX: Z01.810 Encounter for preprocedural cardiovascular examination (principal); I48.0 Paroxysmal atrial fibrillation; I47.1 Supraventricular tachycardia; I49.3 Ventricular premature depolarization; I44.7 Left bundle-branch block, unspecified; G47.33 Obstructive sleep apnea (adult) (pediatric); Z79.01 Long term (current) use of anticoagulants | CPT/HCPCS: 93005; 99212 ==

== ENCOUNTER 2022-05-22 10:54 | Day surgery (SDC) | payer MEDICARE, SELFPAY ==
[2022-05-16 11:28] VITALS: BMI 33.7
--- NOTE | 2022-05-19 09:38 | HO.ANESPROP2 ---
Documented by User: Sweta Calderon NP 05/19/22 13:08 HPI - Anesthesia Eval Consult details Narrative: 72yo M for Cystoscopy Bladder Fulguration and Biopsy with Mitomycin-c Pt started on abx for bronchitis 05/18/22. Eval pulm status DOS. Cardiac cleared Eliquis for afib, also s/p RFA PMFSH Active Problems Active Problems: All Active Problems (Updated 05/16/22 @ 11:19 by Pepper Martinez RN) PAF (paroxysmal atrial fibrillation) (Acute) Allergic rhinitis (Acute) Allergic dermatitis (Acute) Preop exam for internal medicine (Acute) Preoperative cardiovascular examination (Acute) Bladder cancer (Acute) LBBB (left bundle branch block) (Acute) Obstructive sleep apnea (Acute) Personal history of nicotine dependence (Acute) Past Medical History Medical History Bladder cancer Erectile dysfunction GERD (gastroesophageal reflux disease) History of COVID-19 History of small bowel obstruction Hypercholesterolemia LBBB (left bundle branch block) Obesity (BMI 30-39.9) Obstructive sleep apnea PAF (paroxysmal atrial fibrillation) Personal history of nicotine dependence PVC (premature ventricular contraction) SVT (supraventricular tachycardia) Family History Family History Father Lung cancer Mother History of breast cancer Sister Multiple myeloma Family history of problems with anesthesia: No Surgical History Surgical History History of appendectomy History of arthroplasty of left knee (~2019) History of arthroplasty of right knee (~2020) History of bladder surgery History of cataract surgery (~2020) History of foot surgery (~2021) History of laparotomy (~2020) History of meniscectomy of left knee (~2019) History of meniscectomy of right knee (~2011) Hx of transurethral destruction of bladder lesion History of Problems with Anesthesia: No Social History Social History Household Members: Spouse Housing: House Do you presently have visiting nurse or other home services: No Alcohol intake: never Patient Tobacco Use Status: Former Tobacco user Quit Date: 2009 Tobacco use type: Cigarette Years Smoked: (former smoker - onset 14yo, 1ppd x 46yrs, 45pyh, quit 2009) e-Cigarette/Vaping Use: Never Used Second Hand Smoke Exposure: No Advance Directives: Yes Advance Directives on File: Yes Advance Directives Date on File: 02/14/21 service: Yes ( [employer] - served in [employer]) Current occupational status: retired Current occupational exposures/hazards: Yes (was exposed to [place] while serving in [employer]) Cognitive needs: No Hearing needs: Yes (hearing aide) Vision needs: No Meds Allergies Allergy/AdvReac Type Severity Reaction Status Date / Time dronedarone [From Multaq] Allergy Mild Rash Verified 05/15/22 13:25 Home Medications Medication Instructions Recorded Confirmed Last Taken Type apixaban 5 mg tablet (Eliquis) 5 mg PO BID 11/09/21 05/16/22 Unknown History triamcinolone acetonide 0.5 % See Rx Instructions .Route 11/09/21 05/16/22 Unknown History topical cream .COMPLEX rash metoprolol tartrate 50 mg tablet 50 mg PO BID 02/14/22 05/16/22 Unknown History amoxicillin 500 mg capsule 1 cap PO Q8H 05/22/22 05/22/22 05/22/22 History prednisone 10 mg tablet mg PO 05/22/22 05/22/22 05/22/22 History Exam Exam Date and Time: May 19, 2022 0938 Height,Weight and Vital Signs: Height 5 ft 6 in Weight 94.801 kg Pertinent Lab Results Pertinent Lab Results: Laboratory Tests 12/13/21 12/13/21 09:32 09:32 WBC 5.8 Hgb 15.8 Hct 46.3 Plt Count 188 Sodium 139 Potassium 4.3 Chloride 106 Carbon Dioxide 25 BUN 15 Creatinine 0.85 Narrative Narrative: EKG 04/2022 sinus rhythm at 71/Min; left bundle-branch block pattern ECHO 03/2021 Conclusions: - The left ventricular systolic function is normal.? The ? calculated ejection fraction is 63% by biplane method. ? - Mildly increased right ventricular cavity size.? - The left atrium is mildly dilated. ? - No obvious valvular pathology seen on this study.? ? Assessment and Plan Assessment Anesthesia Assessment: Chart Reviewed Final Anesthetic Review Family History of Problems with Anesthesia: No History of Problems with Anesthesia: No Documented by User: Nita Pinto MD 05/22/22 11:39 [facility] Active Problems Active Problems: All Active Problems (Updated 05/16/22 @ 11:19 by Pepper Martinez RN) PAF (paroxysmal atrial fibrillation) (Acute) Allergic rhinitis (Acute) Allergic dermatitis (Acute) Preop exam for internal medicine (Acute) Preoperative cardiovascular examination (Acute) Bladder cancer (Acute) LBBB (left bundle branch block) (Acute) Obstructive sleep apnea (Acute) Personal history of nicotine dependence (Acute) Hard of hearing. Hearing aids not here today Has had a cough and congestion. 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 Placed on antibiotics and prednisone.On 4th day. No fever Covid 01/2022. Cough on and off since. S/p cardiac ablation 3 weeks ago. On eliquis. Last dose 05/19/22 Past Medical History Medical History Bladder cancer Erectile dysfunction GERD (gastroesophageal reflux disease) History of COVID-19 History of small bowel obstruction Hypercholesterolemia LBBB (left bundle branch block) Obesity (BMI 30-39.9) Obstructive sleep apnea PAF (paroxysmal atrial fibrillation) Personal history of nicotine dependence PVC (premature ventricular contraction) SVT (supraventricular tachycardia) Family History Family History Father Lung cancer Mother History of breast cancer Sister Multiple myeloma Surgical History Surgical History History of appendectomy History of arthroplasty of left knee (~2019) History of arthroplasty of right knee (~2020) History of bladder surgery History of cataract surgery (~2020) History of foot surgery (~2021) History of laparotomy (~2020) History of meniscectomy of left knee (~2018) History of meniscectomy of right knee (~2012) Hx of transurethral destruction of bladder lesion Social History Social History Household Members: Spouse Housing: House Do you presently have visiting nurse or other home services: No Alcohol intake: never Patient Tobacco Use Status: Former Tobacco user Quit Date: 2009 Tobacco use type: Cigarette Years Smoked: (former smoker - onset 14yo, 1ppd x 46yrs, 45pyh, quit 2009) e-Cigarette/Vaping Use: Never Used Second Hand Smoke Exposure: No Advance Directives: Yes Advance Directives on File: Yes Advance Directives Date on File: 02/14/21 service: Yes ( [employer] - served in [employer]) Current occupational status: retired Current occupational exposures/hazards: Yes (was exposed to [place] while serving in [employer]) Cognitive needs: No Hearing needs: Yes (hearing aide) Vision needs: No Meds Allergies Allergy/AdvReac Type Severity Reaction Status Date / Time dronedarone [From Multaq] Allergy Mild Rash Verified 05/15/22 13:25 Home Medications Medication Instructions Recorded Confirmed Last Taken Type apixaban 5 mg tablet (Eliquis) 5 mg PO BID 11/09/21 05/16/22 Unknown History triamcinolone acetonide 0.5 % See Rx Instructions .Route 11/09/21 05/16/22 Unknown History topical cream .COMPLEX rash metoprolol tartrate 50 mg tablet 50 mg PO BID 02/14/22 05/16/22 Unknown History amoxicillin 500 mg capsule 1 cap PO Q8H 05/22/22 05/22/22 05/22/22 History prednisone 10 mg tablet mg PO 05/22/22 05/22/22 05/22/22 History Exam Height,Weight and Vital Signs: Height 5 ft 6 in Weight 94.801 kg Vital Signs Temp Pulse Resp BP Pulse Ox O2 Del Method 05/22/22 11:09 97.5 F 73 20 135/87 95 Room Air Airway Mallampati Class: II TM Dist: >3cm Neck ROM: Full Loose/Missing/Broken Teeth: No (Denies broken or missing teeth) Heart: RRR Lungs: CTAB. No wheezes Assessment and Plan Assessment Anesthesia Assessment: Anesthesia Plan Discussed Final Anesthetic Review NPO: Yes ASA Class: III Final Preanesthetic Review: No Changes in Pt Med Stat, Meds/Allgs Chart Reviewed, Consent Obtained/Reviewed and Anes Risks/Benef Reviewed Patient Risk: Intermediate Procedure Risk: Low Assessment/Block/Sedation in SS: Assess/Block/Sedation-SS Anesthetic Plan Anesthetic Plan: GA Disposition: Standard PACU
[2022-05-22] VITALS (12 sets, daily range): BP systolic 113–148; BP diastolic 65–91; PULSE 64–73; RESP 16–20; TEMP 36.4–37.1; O2SAT 92–98; BMI 33.0
[2022-05-22] MEDS: Lactated Ringers 1,000 ML 100 ML IVCONT (11:37)
[2022-05-22] MEDS: levoFLOXacin 500 MG TABLET PO (11:54)
--- NOTE | 2022-05-22 11:54 | MHC.SHP ---
Pre-Procedural Eval Section A Date of Service: 05/22/22 The patient is an INPATIENT: No Changes since office visit: No Cold of Flu in the past 2 weeks, No New Medical Problems, No Changes in Medication and No Patient answered all questions The History & Physical has been completed within 30 days and I have reviewed it.: Yes Section B Chief Complaint: Malignant neoplasm of bladder, unspecified Details of Present Illness: bladder biopsy and fulguration Relevant Family History (Specify if Yes): No Relevant Social History: None Present Medications: see Short Stay Collaborative assessment Medical History: Significant History History of Previous Operations: Relevant previous surgery/procedure and date(s) Allergies: Allergies Allergy/AdvReac Type Severity Reaction Status Date / Time dronedarone [From Multaq] Allergy Mild Rash Verified 05/15/22 13:25 Review of Systems Sugical H&P ROS: Negative: Constitution, Cardiovascular, Respiratory, Neurological, Psychiatric, Hem-Onc, Allergic/Immunologic, Gastrointestinal, Genitourinary, Musculoskeletal, Integumentary, Endocrine and Eyes/Ears/Nose/Throat Exam Surgical H&P Exam: Normal: HEENT, Normal: Heart, Normal: Lungs, Normal: Extremities, Normal: Abdomen, Normal: Skin and Normal: Neurological Plan Diagnosis/Plan: Unchanged (bladder biopsy and fulgeration) I have reviewed the history and physical and performed a pertinent physical examination on my patient. No changes have occurred unless specified.
--- NOTE | 2022-05-22 12:52 | P.OP_ITS ---
Operative Note Operative Note Date of Service: 05/22/22 Narrative: PreOperative Diagnosis: bladder cancer Post Operative Diagnosis: bladder cancer Procedure: biopsy of superficial bladder cancer, extensive fulguration, and mitomycin-C installation Surgeon: Dr Darrin Alicea Anesthesia: general Indications for procedure: recurrent superficial bladder cancer on cystoscopy. Prior TURBT with BCG induction and maintenance therapy. Small area anterior bladder wall superficial recurrence on cystoscopy in office. Procedure: After informed consent was verified the patient was brought to the operating room and placed in a supine position. Anesthesia was administered per protocol. The patient was placed in a modified dorsal lithotomy position and prepped and draped in a sterile fashion. Safety pause time-out was performed. Antibiotics were confirmed. A 24 Faroese Cystoscope was inserted per urethra. the bladder was examined in its entirety using both the 30 degree and 70 degree lens. Areas of recurrence were found on the boundary of prior fulguration resection areas on the anterior bladder wall. The bladder was also examined using narrow band imaging. This showed another area on the right side wall of mucosal change and more extensive superficial recurrence on the anterior bladder wall. Biopsies were taken of the superficial recurrence on the anterior bladder wall in 2 spots. The entire area was fulgurated across the anterior bladder wall approximately 5 cm in length by 1 cm in diameter. The right bladder sidewall another area approximately 3 x 3 cm was fulgurated. There were some other suspicious areas under narrow band imaging that was spot fulgurated. At the completion of the procedure the bladder was irrigated. The cystoscope was removed. A [address] Dinero catheter was inserted into the bladder. 10 cc was placed in the balloon. 40 mg of mitomycin-C in 20 cc of normal saline was instilled into the bladder. The flow from the catheter was left clamped. The inflow to the catheter was attached to a 3 L normal saline bag. The patient tolerated the procedure well. They were extubated in the operating room and transferred in stable condition to the recovery area. Mitomycin-C will remain in the bladder for 1 hour. At the completion of 1 hour the clamp will be removed. The mitomycin will be allowed to egress to the urine collection bag. The 3 L bag of normal saline will be run at maximum rate through the bladder in order to dilute any residual mitomycin. The Dinero catheter will then be removed. Pathology: bladder biopsies Drains: Dinero catheter as above to be removed prior to discharge
[2022-05-22] MEDS: Acetaminophen 325 MG TABLET 650 MG PO (13:08)
[2022-05-22] MEDS: oxyCODONE HCl Immed Release 5 MG TABLET PO (13:08)
== END 2022-05-22 15:37 | disposition home or self-care (01) ==
PROVIDERS: PCP Internal Medicine; Visit Provider Urology
PROC: 0T5B8ZZ Destruction of Bladder, Via Natural or Artificial Opening Endoscopic (ICD-10-PCS; CPT 52224; principal; 2022-05-22 13:20)
DX: D09.0 Carcinoma in situ of bladder (principal); N52.9 Male erectile dysfunction, unspecified; I48.0 Paroxysmal atrial fibrillation; I47.1 Supraventricular tachycardia; I49.3 Ventricular premature depolarization; I44.7 Left bundle-branch block, unspecified; E78.00 Pure hypercholesterolemia, unspecified; K21.9 Gastro-esophageal reflux disease without esophagitis; G47.33 Obstructive sleep apnea (adult) (pediatric); Z79.01 Long term (current) use of anticoagulants; Z99.89 Dependence on other enabling machines and devices; Z79.52 Long term (current) use of systemic steroids; Z79.899 Other long term (current) drug therapy; Z88.8 Allergy status to other drugs, medicaments and biological substances; Z98.890 Other specified postprocedural states; Z87.891 Personal history of nicotine dependence; Z77.098 Contact with and (suspected) exposure to other hazardous, chiefly nonmedicinal, chemicals
CPT/HCPCS: 52224; 51720; 88307; 88342; 88360; C1758; J1100; J2250; J2405; J3010; J9280

== ENCOUNTER 2022-05-25 20:00 | Emergency (ER) | payer MEDICARE, SELFPAY ==
[2022-05-25 20:38] VITALS: BP 137/88; PULSE 76; RESP 18; TEMP 36.2; O2SAT 95; BMI 34.3
--- NOTE | 2022-05-25 20:41 | ED_ITS ---
HPI - General Adult General Chief complaint: Urogenital-Male <FABIENNE Mistry - Last Filed: 05/25/22 20:47> Stated complaint: Blood clots in urine after surgery <FABIENNE Mistry - Last Filed: 05/25/22 20:47> Time Seen by Provider: 05/26/22 03:24 <FABIENNE Mistry - Last Filed: 05/25/22 20:47> Source: patient <Smith Kaufman MD - Last Filed: 05/26/22 06:59> Mode of arrival: ambulatory <Smith Kaufman MD - Last Filed: 05/26/22 06:59> Limitations: no limitations <Smith Kaufman MD - Last Filed: 05/26/22 06:59> History of Present Illness HPI narrative: Patient with History of atrial fibrillation on Eliquis , bladder cancer patient had cystoscopy and biopsies done on 05/22 for bladder cancer comes here has he been bleeding since yesterday evening with increased amount of blood clots. Patient took last dose of Eliquis on 05/23 patient feels weak no shortness of breath no chest pain or palpitation <Smith Kaufman MD - Last Filed: 05/26/22 06:59> Related Data Home medications: Home Medications Medication Instructions Recorded Confirmed apixaban 5 mg tablet (Eliquis) 5 mg PO BID 11/09/21 05/16/22 triamcinolone acetonide 0.5 % See Rx Instructions .Route 11/09/21 05/16/22 topical cream .COMPLEX rash metoprolol tartrate 50 mg tablet 50 mg PO BID 02/14/22 05/16/22 amoxicillin 500 mg capsule 1 cap PO Q8H 05/22/22 05/22/22 prednisone 10 mg tablet mg PO 05/22/22 05/22/22 Previous Rx's Medication Instructions Recorded simvastatin 40 mg tablet 40 mg PO BEDTIME #90 tabs 07/12/21 omeprazole 20 mg capsule,delayed 20 mg PO DAILY 90 days #90 caps 12/26/21 release CPAP (CPAP Machine/Device) #1 ea 02/14/22 <FABIENNE Mistry - Last Filed: 05/25/22 20:47> Allergies/adverse reactions: Allergies Allergy/AdvReac Type Severity Reaction Status Date / Time dronedarone [From Multaq] Allergy Mild Rash Verified 05/25/22 20:38 <FABIENNE Mistry - Last Filed: 05/25/22 20:47> Review of Systems Review of Systems: Yes all other systems are reviewed and are negative <Smith Kaufman MD - Last Filed: 05/26/22 06:59> [facility] Past Medical History Medical History: Medical History Bladder cancer Erectile dysfunction GERD (gastroesophageal reflux disease) History of COVID-19 History of small bowel obstruction Hypercholesterolemia LBBB (left bundle branch block) Obesity (BMI 30-39.9) Obstructive sleep apnea PAF (paroxysmal atrial fibrillation) Personal history of nicotine dependence PVC (premature ventricular contraction) SVT (supraventricular tachycardia) <FABIENNE Mistry - Last Filed: 05/25/22 20:47> Surgical History: Surgical History History of appendectomy History of arthroplasty of left knee (~2019) History of arthroplasty of right knee (~2020) History of bladder surgery History of cataract surgery (~2020) History of foot surgery (~2021) History of laparotomy (~2020) History of meniscectomy of left knee (~2018) History of meniscectomy of right knee (~2011) Hx of transurethral destruction of bladder lesion <FABIENNE Mistry - Last Filed: 05/25/22 20:47> Family History Family History: Family History Father Lung cancer Mother History of breast cancer Sister Multiple myeloma <FABIENNE Mistry - Last Filed: 05/25/22 20:47> Social History Social History: Social History Household Members: Spouse Housing: House Do you presently have visiting nurse or other home services: No Alcohol intake: never Patient Tobacco Use Status: Former Tobacco user Quit Date: 12 years ago Tobacco use type: Cigarette Years Smoked: (former smoker - onset 14yo, 1ppd x 46yrs, 45pyh, quit 2009) Smoked in Last 30 Days: No e-Cigarette/Vaping Use: Never Used Second Hand Smoke Exposure: No Use of substances other than those prescribed or required for medical reasons: No Advance Directives: Yes Advance Directives Information Provided: Yes Advance Directives on File: No Advance Directives Date on File: 02/14/21 service: Yes ( [employer] - served in [facility] [facility]) Current occupational status: retired Current occupational exposures/hazards: Yes (was exposed to Agent [place] while serving in [employer]) Cognitive needs: No Hearing needs: Yes (hearing aide) Vision needs: No <FABIENNE Mistry - Last Filed: 05/25/22 20:47> Physical Exam ED Vital Signs: Vital Signs - 24 hr 05/25/22 20:38 05/26/22 06:00 Temperature 97.2 F 97.8 F Pulse Rate 76 70 Respiratory Rate 18 16 Blood Pressure 137/88 122/73 Pulse Oximetry 95 96 Oxygen Delivery Method Room Air Nasal Cannula BMI result Body Mass Index 34.3 <FABIENNE Mistry - Last Filed: 05/25/22 20:47> Vital Signs - 24 hr 05/25/22 20:38 05/26/22 06:00 Temperature 97.2 F 97.8 F Pulse Rate 76 70 Respiratory Rate 18 16 Blood Pressure 137/88 122/73 Pulse Oximetry 95 96 Oxygen Delivery Method Room Air Nasal Cannula BMI result Body Mass Index 34.3 <Smith Kaufman MD - Last Filed: 05/26/22 06:59> Appearance: Alert. Oriented X3. No acute distress. Eyes: No pallor or icterus ENT: Pharynx normal. Oral Mucosa moist Neck: Normal inspection. Neck supple. CVS: Normal heart rate and rhythm. Pulses normal. Respiratory: No respiratory distress. Equal air entry bilateral, no wheezing/rales/rhonchi Abdomen: Soft and nontender. Bowel sounds are present, no mass palpable, no CVA tenderness Skin: Skin warm and dry. Normal skin color. Normal skin turgor. Extremities: No lower extremity edema. No calf tenderness Neuro: Oriented X 3. No motor deficit. No sensory deficit.No cerebellar signs , cranial nerves II-XII intact <Smith Kaufman MD - Last Filed: 05/26/22 06:59> Course Course Course Narrative: RME--72yo M w/PMHx Afib on Eliquis, bladder CA s/p cystoscopy w/biopsies in office on Sunday c/o gross hematuria and passing clots. Restarted Eliquis on . Denies abd pain, N/V, flank pain, lightheadedness/dizziness Gross hematuria noted in triage Plan: Labs, UA <FABIENNE Mistry - Last Filed: 05/25/22 20:47> Medications Administered Discontinued Medications Generic Name Dose Route Start Last Admin Trade Name Freq PRN Reason Stop Dose Admin Lidocaine HCl 10 ml 05/26/22 03:40 05/26/22 04:39 Lidocaine Hcl 2 % Urojet 10 Ml Jel.Pf.Tonia TOPICAL 05/26/22 03:41 10 ml ONCE ONE Administration <FABIENNE Mistry - Last Filed: 05/25/22 20:47> Medications Administered Discontinued Medications Generic Name Dose Route Start Last Admin Trade Name Freq PRN Reason Stop Dose Admin Lidocaine HCl 10 ml 05/26/22 03:40 05/26/22 04:39 Lidocaine Hcl 2 % Urojet 10 Ml Jel.Pf.Tonia TOPICAL 05/26/22 03:41 10 ml ONCE ONE Administration <Smith Kaufman MD - Last Filed: 05/26/22 06:59> Procedures Catheter Insertion (Urinary) Date of insertion: 05/26/22 <Smith Kaufman MD - Last Filed: 05/26/22 06:59> Reason for placing: Yes <Smith Kaufman MD - Last Filed: 05/26/22 06:59> Reason for placing indwelling catheter: Acute urinary retention <Smith Kaufman MD - Last Filed: 05/26/22 06:59> Antiseptic solution prep: Povidone-Iodine <Smith Kaufman MD - Last Filed: 05/26/22 06:59> Topical anesthesia used: Yes <Smith Kaufman MD - Last Filed: 05/26/22 06:59> Catheter type/location: 3-way Urethral <Smith Kaufman MD - Last Filed: 05/26/22 06:59> Size (Swedish): 22 <Smith Kaufman MD - Last Filed: 05/26/22 06:59> Catheter balloon size (mL): 30 <Smith Kaufman MD - Last Filed: 05/26/22 06:59> Catheter balloon amount: 30 <Smith Kaufman MD - Last Filed: 05/26/22 06:59> Results: successfully catheterized-immediate flow <Smith Kaufman MD - Last Filed: 05/26/22 06:59> Procedure performed: without complications <Smith Kaufman MD - Last Filed: 05/26/22 06:59> Medical Decision Making MDM Narrative Medical decision making narrative: 420 amManual Bladder irrigation was done using 22 Swedish three-way few clots removed and continuous bladder irrigation started draining pinkish color no major blood clots. Patient vital stable H and H stable will continue CBI 640 am almost clear urine spoke to urologist Dr. Marin is advised to follow-up as outpatient <Smith Kaufman MD - Last Filed: 05/26/22 06:59> Lab Data Lab results reviewed: Yes I reviewed the patient's lab results. <Smtih Kaufman MD - Last Filed: 05/26/22 06:59> Result diagrams: : 05/25/22 20:52 05/25/22 20:52 <FABIENNE Mistry - Last Filed: 05/25/22 20:47> Labs: Lab Results 05/25/22 05/25/22 05/25/22 Range/Units 20:52 20:52 20:52 WBC 11.9 H (4.8-10.8) X10*3/uL RBC 5.22 (4.60-5.80) X10*6/uL Hgb 15.7 (14.0-18.0) g/dl Hct 45.0 (42.0-52.0) % MCV 86.2 (80.0-98.0) fL MCH 30.1 (27.0-33.0) pg MCHC 34.9 (31.0-36.0) g/dl RDW 12.7 (11.0-16.0) % Plt Count 239 D (160-400) X10*3/uL MPV 9.2 L (9.4-12.4) fL Immature Gran % (Auto) 0.5 H (0.0-0.4) % Neut % (Auto) 69.5 (45-73) % Lymph % (Auto) 17.8 L (20-40) % [place] % (Auto) 10.2 (2-11) % Eos % (Auto) 1.8 (0-4) % Baso % (Auto) 0.2 (0-2) % Lymph # (Auto) 2.1 (1.2-4.9) X10*3/uL [place] # (Auto) 1.2 (0.1-1.2) X10*3/uL Eos # (Auto) 0.2 (0.0-0.4) X10*3/uL Baso # (Auto) 0.0 (0.0-0.2) X10*3/uL Abs Immat Gran (auto) 0.06 H (0.00-0.03) X10*3/uL Absolute Neuts (auto) 8.3 (2.0-8.3) x10*3/uL Absolute Nucleated RBC 0.000 (0.0-0.012) X10*3/uL Nucleated RBC % (auto) 0.0 (0.0-0.2) /100WBC PT 11.7 (10.0-13.1) SEC INR 1.0 (0.9-1.1) Sodium 137 (135-145) mmol/L Potassium 4.1 (3.3-5.1) mmol/L Chloride 103 (96-108) mmol/L Carbon Dioxide 21 L (22-29) mmol/L Anion Gap 17 (12-20) BUN 17 H (9-16) mg/dL Creatinine 1.11 (0.5-1.4) mg/dL Estim Creat Clear Calc 63.5 Estimated GFR > 60 Random Glucose 91 (60-115) mg/dL Calcium 8.9 (8.4-10.2) mg/dL Total Bilirubin 0.3 (0.0-1.0) mg/dL Direct Bilirubin < 0.2 (0.0-0.5) mg/dL AST 15 (5-37) U/L ALT 19 (0-40) U/L Alkaline Phosphatase 80 D (39-117) U/L Total Protein 7.3 (6.5-8.0) g/dL Albumin 4.1 (3.5-5.0) g/dL Urine Color Urine Appearance Urine pH (5.0-9.0) Ur Specific [place] (1.005-1.025) Urine Protein (Neg-Trace) mg/dL Urine Glucose (UA) (Negative) mg/dL Urine Ketones (Negative) mg/dL Urine Blood (Negative) Urine Nitrite (Negative) Ur Leukocyte Esterase (Negative) Urine RBC (0-2) /HPF Urine WBC (0-5) /HPF Ur Squamous Epith Cells (0-2) /HPF Urine Bacteria (None Seen) Hyaline Casts (0-2) /LPF 05/25/22 Range/Units 20:52 WBC (4.8-10.8) X10*3/uL RBC (4.60-5.80) X10*6/uL Hgb (14.0-18.0) g/dl Hct (42.0-52.0) % MCV (80.0-98.0) fL MCH (27.0-33.0) pg MCHC (31.0-36.0) g/dl RDW (11.0-16.0) % Plt Count (160-400) X10*3/uL MPV (9.4-12.4) fL Immature Gran % (Auto) (0.0-0.4) % Neut % (Auto) (45-73) % Lymph % (Auto) (20-40) % [place] % (Auto) (2-11) % Eos % (Auto) (0-4) % Baso % (Auto) (0-2) % Lymph # (Auto) (1.2-4.9) X10*3/uL [place] # (Auto) (0.1-1.2) X10*3/uL Eos # (Auto) (0.0-0.4) X10*3/uL Baso # (Auto) (0.0-0.2) X10*3/uL Abs Immat Gran (auto) (0.00-0.03) X10*3/uL Absolute Neuts (auto) (2.0-8.3) x10*3/uL Absolute Nucleated RBC (0.0-0.012) X10*3/uL Nucleated RBC % (auto) (0.0-0.2) /100WBC PT (10.0-13.1) SEC INR (0.9-1.1) Sodium (135-145) mmol/L Potassium (3.3-5.1) mmol/L Chloride (96-108) mmol/L Carbon Dioxide (22-29) mmol/L Anion Gap (12-20) BUN (9-16) mg/dL Creatinine (0.5-1.4) mg/dL Estim Creat Clear Calc Estimated GFR Random Glucose (60-115) mg/dL Calcium (8.4-10.2) mg/dL Total Bilirubin (0.0-1.0) mg/dL Direct Bilirubin (0.0-0.5) mg/dL AST (5-37) U/L ALT (0-40) U/L Alkaline Phosphatase (39-117) U/L Total Protein (6.5-8.0) g/dL Albumin (3.5-5.0) g/dL Urine Color RED Urine Appearance Turbid Urine pH 6.0 (5.0-9.0) Ur Specific [place] 1.010 (1.005-1.025) Urine Protein 100 (2+) H (Neg-Trace) mg/dL Urine Glucose (UA) Negative (Negative) mg/dL Urine Ketones Negative (Negative) mg/dL Urine Blood Large (3+) H (Negative) Urine Nitrite Negative (Negative) Ur Leukocyte Esterase Small (1+) H (Negative) Urine RBC >20 H (0-2) /HPF Urine WBC 0-5 (0-5) /HPF Ur Squamous Epith Cells 0-2 (0-2) /HPF Urine Bacteria None Seen (None Seen) Hyaline Casts 0-2 (0-2) /LPF <FABIENNE Mistry - Last Filed: 05/25/22 20:47> Lab Results 05/25/22 05/25/22 05/25/22 Range/Units 20:52 20:52 20:52 WBC 11.9 H (4.8-10.8) X10*3/uL RBC 5.22 (4.60-5.80) X10*6/uL Hgb 15.7 (14.0-18.0) g/dl Hct 45.0 (42.0-52.0) % MCV 86.2 (80.0-98.0) fL MCH 30.1 (27.0-33.0) pg MCHC 34.9 (31.0-36.0) g/dl RDW 12.7 (11.0-16.0) % Plt Count 239 D (160-400) X10*3/uL MPV 9.2 L (9.4-12.4) fL Immature Gran % (Auto) 0.5 H (0.0-0.4) % Neut % (Auto) 69.5 (45-73) % Lymph % (Auto) 17.8 L (20-40) % [place] % (Auto) 10.2 (2-11) % Eos % (Auto) 1.8 (0-4) % Baso % (Auto) 0.2 (0-2) % Lymph # (Auto) 2.1 (1.2-4.9) X10*3/uL [place] # (Auto) 1.2 (0.1-1.2) X10*3/uL Eos # (Auto) 0.2 (0.0-0.4) X10*3/uL Baso # (Auto) 0.0 (0.0-0.2) X10*3/uL Abs Immat Gran (auto) 0.06 H (0.00-0.03) X10*3/uL Absolute Neuts (auto) 8.3 (2.0-8.3) x10*3/uL Absolute Nucleated RBC 0.000 (0.0-0.012) X10*3/uL Nucleated RBC % (auto) 0.0 (0.0-0.2) /100WBC PT 11.7 (10.0-13.1) SEC INR 1.0 (0.9-1.1) Sodium 137 (135-145) mmol/L Potassium 4.1 (3.3-5.1) mmol/L Chloride 103 (96-108) mmol/L Carbon Dioxide 21 L (22-29) mmol/L Anion Gap 17 (12-20) BUN 17 H (9-16) mg/dL Creatinine 1.11 (0.5-1.4) mg/dL Estim Creat Clear Calc 63.5 Estimated GFR > 60 Random Glucose 91 (60-115) mg/dL Calcium 8.9 (8.4-10.2) mg/dL Total Bilirubin 0.3 (0.0-1.0) mg/dL Direct Bilirubin < 0.2 (0.0-0.5) mg/dL AST 15 (5-37) U/L ALT 19 (0-40) U/L Alkaline Phosphatase 80 D (39-117) U/L Total Protein 7.3 (6.5-8.0) g/dL Albumin 4.1 (3.5-5.0) g/dL Urine Color Urine Appearance Urine pH (5.0-9.0) Ur Specific [place] (1.005-1.025) Urine Protein (Neg-Trace) mg/dL Urine Glucose (UA) (Negative) mg/dL Urine Ketones (Negative) mg/dL Urine Blood (Negative) Urine Nitrite (Negative) Ur Leukocyte Esterase (Negative) Urine RBC (0-2) /HPF Urine WBC (0-5) /HPF Ur Squamous Epith Cells (0-2) /HPF Urine Bacteria (None Seen) Hyaline Casts (0-2) /LPF 05/25/22 Range/Units 20:52 WBC (4.8-10.8) X10*3/uL RBC (4.60-5.80) X10*6/uL Hgb (14.0-18.0) g/dl Hct (42.0-52.0) % MCV (80.0-98.0) fL MCH (27.0-33.0) pg MCHC (31.0-36.0) g/dl RDW (11.0-16.0) % Plt Count (160-400) X10*3/uL MPV (9.4-12.4) fL Immature Gran % (Auto) (0.0-0.4) % Neut % (Auto) (45-73) % Lymph % (Auto) (20-40) % [place] % (Auto) (2-11) % Eos % (Auto) (0-4) % Baso % (Auto) (0-2) % Lymph # (Auto) (1.2-4.9) X10*3/uL [place] # (Auto) (0.1-1.2) X10*3/uL Eos # (Auto) (0.0-0.4) X10*3/uL Baso # (Auto) (0.0-0.2) X10*3/uL Abs Immat Gran (auto) (0.00-0.03) X10*3/uL Absolute Neuts (auto) (2.0-8.3) x10*3/uL Absolute Nucleated RBC (0.0-0.012) X10*3/uL Nucleated RBC % (auto) (0.0-0.2) /100WBC PT (10.0-13.1) SEC INR (0.9-1.1) Sodium (135-145) mmol/L Potassium (3.3-5.1) mmol/L Chloride (96-108) mmol/L Carbon Dioxide (22-29) mmol/L Anion Gap (12-20) BUN (9-16) mg/dL Creatinine (0.5-1.4) mg/dL Estim Creat Clear Calc Estimated GFR Random Glucose (60-115) mg/dL Calcium (8.4-10.2) mg/dL Total Bilirubin (0.0-1.0) mg/dL Direct Bilirubin (0.0-0.5) mg/dL AST (5-37) U/L ALT (0-40) U/L Alkaline Phosphatase (39-117) U/L Total Protein (6.5-8.0) g/dL Albumin (3.5-5.0) g/dL Urine Color RED Urine Appearance Turbid Urine pH 6.0 (5.0-9.0) Ur Specific [place] 1.010 (1.005-1.025) Urine Protein 100 (2+) H (Neg-Trace) mg/dL Urine Glucose (UA) Negative (Negative) mg/dL Urine Ketones Negative (Negative) mg/dL Urine Blood Large (3+) H (Negative) Urine Nitrite Negative (Negative) Ur Leukocyte Esterase Small (1+) H (Negative) Urine RBC >20 H (0-2) /HPF Urine WBC 0-5 (0-5) /HPF Ur Squamous Epith Cells 0-2 (0-2) /HPF Urine Bacteria None Seen (None Seen) Hyaline Casts 0-2 (0-2) /LPF <Smith Kaufman MD - Last Filed: 05/26/22 06:59> Discharge Plan Discharge Clinical Impression: Gross hematuria <FABIENNE Mistry Last Filed: 05/25/22 20:47> Patient Disposition: Home, Self-Care <FABIENNE Mistry Last Filed: 05/25/22 20:47> Instructions: Hematuria (ED) <FABIENNE Mistry Last Filed: 05/25/22 20:47> Additional Instructions: Drink plenty of fluids Hold Eliquis for now Follow-up with urologist and 1-2 days Dinero catheter care as advised <FABIENNE Mistry Last Filed: 05/25/22 20:47> Prescriptions: No Action simvastatin 40 mg tablet 40 mg PO BEDTIME Qty: 90 3RF omeprazole 20 mg capsule,delayed release(DR/EC) 20 mg PO DAILY 90 Days Qty: 90 1RF amoxicillin 500 mg capsule 1 cap PO Q8H prednisone 10 mg tablet PO metoprolol tartrate 50 mg tablet 50 mg PO BID (DME) CPAP Machine/Device Device See Rx Instructions .Route Qty: 1 0RF Rx Instructions: As directed triamcinolone acetonide 0.5 % cream See Rx Instructions .ROUTE .COMPLEX Rx Instructions: as directed Eliquis 5 mg tablet 5 mg PO BID <FABIENNE Mistry Last Filed: 05/25/22 20:47>
[2022-05-25 20:58] LABS: MANUAL DIFF FLAG NO
[2022-05-25 21:00] LABS: Basophils Percent Auto 0.2 % (0-2); Eosinophils Absolute Auto 0.2 X10*3/uL (0.0-0.4); Eosinophils Percent Auto 1.8 % (0-4); Hemoglobin 15.7 g/dl (14.0-18.0); Imm Gran Abs Auto 0.06 X10*3/uL (0.00-0.03); Imm Gran Pct Auto 0.5 % (0.0-0.4); Lymphocytes Absolute Auto 2.1 X10*3/uL (1.2-4.9); Lymphocytes Percent Auto 17.8 % (20-40); Mean Corpuscular HGB Conc 34.9 g/dl (31.0-36.0); Mean Corpuscular Hemoglobin 30.1 pg (27.0-33.0); Mean Corpuscular Volume 86.2 fL (80.0-98.0); Mean Platelet Volume 9.2 fL (9.4-12.4); Monocytes Absolute Auto 1.2 X10*3/uL (0.1-1.2); Monocytes Percent Auto 10.2 % (2-11); Neutrophils Absolute Auto 8.3 x10*3/uL (2.0-8.3); Neutrophils Percent Auto 69.5 % (45-73); Platelet Count 239 X10*3/uL (160-400); Red Blood Count 5.22 X10*6/uL (4.60-5.80); Red Cell Distribution Width 12.7 % (11.0-16.0); White Blood Count 11.9 X10*3/uL (4.8-10.8)
[2022-05-25 21:06] LABS: Prothrombin Time 11.7 SEC (10.0-13.1)
[2022-05-25 21:09] LABS: Appearance Urine Turbid; Color Urine RED; Glucose Urine UA Negative (Negative); Leukocyte Esterase Urine Small (1+) (Negative); Nitrite Urine Negative (Negative); UMIC TRIGGER UACC YES; Urine Blood Large (3+) (Negative); Urine Ketones Negative (Negative); Urine Protein 100 (2+) mg/dL (Neg-Trace)
[2022-05-25 21:12] LABS: Bacteria Urine None Seen (None Seen); Hyaline Casts Urine 0-2 /LPF (0-2); RBC Urine >20 /HPF (0-2); Squamous Epithelial Cell Urine 0-2 /HPF (0-2); UACC Culture Trigger YES; WBC Urine 0-5 /HPF (0-5)
[2022-05-25 21:16] LABS: Alanine Aminotransferase 19 U/L (0-40); Albumin Level 4.1 g/dL (3.5-5.0); Alkaline Phosphatase 80 U/L (39-117); Anion Gap 17 (12-20); Aspartate Amino Transferase 15 U/L (5-37); Bilirubin Direct < 0.2 mg/dL (0.0-0.5); Bilirubin Total 0.3 mg/dL (0.0-1.0); Blood Urea Nitrogen 17 mg/dL (9-16); Calcium 8.9 mg/dL (8.4-10.2); Carbon Dioxide 21 mmol/L (22-29); Chloride 103 mmol/L (96-108); Creatinine Clr Calc Pharmacy 63.5; Estimated Glomerular Filt Rate > 60; Glucose Random 91 mg/dL (60-115); Potassium 4.1 mmol/L (3.3-5.1); Sodium 137 mmol/L (135-145); Total Protein 7.3 g/dL (6.5-8.0)
--- NOTE | 2022-05-26 04:12 | PC.NURSE ---
Addendum entered by Robyn Whaley RN 05/26/22 05:15: At 0515, pt has gone through 1500 mL of saline. Pt has put out 2000 mL. Urine is red in color, no visible clots at this time. Addendum entered by Robyn Whaley RN 05/26/22 04:18: MD manually irrigated, output was pink in color with some small clots. Original Note: Pt had three way catheter inserted by for CBI, 22fr. Pt initially put out 200mL of red fluids, no clots present. One 3,000 mL bag running at this time.
[2022-05-26] MEDS: Lidocaine HCl 2 % Urojet 10 ML JEL.PF.APP TOPICAL (04:39)
[2022-05-26 06:00] VITALS: BP 122/73; PULSE 70; RESP 16; TEMP 36.6; O2SAT 96
[2022-05-26 08:27] VITALS: BP 134/82; PULSE 73; RESP 16; TEMP 36.5; O2SAT 96
[2022-05-26 11:49] VITALS: BP 130/81; PULSE 77; RESP 16; TEMP 36; O2SAT 95
== END 2022-05-26 12:00 | disposition home or self-care (01) ==
PROVIDERS: Physician Assistant; Emergency Provider Internal Medicine; PCP Internal Medicine
DX: R31.0 Gross hematuria (principal); R33.9 Retention of urine, unspecified; I48.91 Unspecified atrial fibrillation; Z79.01 Long term (current) use of anticoagulants; Z87.891 Personal history of nicotine dependence; Z79.899 Other long term (current) drug therapy
CPT/HCPCS: 36415; 51702; 80048; 80076; 81001; 81003; 85025; 85610; 87086; 99284

== ENCOUNTER 2022-05-26 14:43 | Emergency (ER) | payer MEDICARE, SELFPAY ==
[2022-05-26 14:43] VITALS: BP 131/77; PULSE 76; RESP 18; TEMP 36.5; O2SAT 95; BMI 33.0
--- NOTE | 2022-05-26 17:09 | ED.GENADULT ---
HPI - General Adult General Chief complaint: General Medical Stated complaint: Catheter issues Time Seen by Provider: 05/26/22 16:08 Source: patient and family Mode of arrival: ambulatory History of Present Illness HPI narrative: 72-year-old male who presents for the 2nd time today regarding hematuria and inability to pass urine after he had surgery for cancer by Dr. Alicea earlier in the week. Patient is on Eliquis which he was started on approximately 1 month ago after having an ablation. Patient did restart the Eliquis on Sunday evening and then began developing hematuria on Sunday and when he discussed it with Dr. Alicea he was instructed to stop the Eliquis but states that the hematuria continue to worsen until he was instructed by the Urology office to present to the emergency room. On his visit he states that he had left here and then began developing difficulty with urination. Related Data Home Medications Medication Instructions Recorded Confirmed apixaban 5 mg tablet (Eliquis) 5 mg PO BID 11/09/21 05/16/22 triamcinolone acetonide 0.5 % See Rx Instructions .Route 11/09/21 05/16/22 topical cream .COMPLEX rash metoprolol tartrate 50 mg tablet 50 mg PO BID 02/14/22 05/16/22 amoxicillin 500 mg capsule 1 cap PO Q8H 05/22/22 05/22/22 prednisone 10 mg tablet mg PO 05/22/22 05/22/22 Previous Rx's Medication Instructions Recorded simvastatin 40 mg tablet 40 mg PO BEDTIME #90 tabs 07/12/21 omeprazole 20 mg capsule,delayed 20 mg PO DAILY 90 days #90 caps 12/26/21 release CPAP (CPAP Machine/Device) #1 ea 02/14/22 Allergies Allergy/AdvReac Type Severity Reaction Status Date / Time dronedarone [From Multaq] Allergy Mild Rash Verified 05/25/22 20:38 Review of Systems Review of Systems: Pertinent positives and negatives as stated in HPI 10 point review of systems is otherwise negative. [facility] Past Medical History Source: nursing notes reviewed Medical History Bladder cancer Erectile dysfunction GERD (gastroesophageal reflux disease) History of COVID-19 History of small bowel obstruction Hypercholesterolemia LBBB (left bundle branch block) Obesity (BMI 30-39.9) Obstructive sleep apnea PAF (paroxysmal atrial fibrillation) Personal history of nicotine dependence PVC (premature ventricular contraction) SVT (supraventricular tachycardia) Surgical History History of appendectomy History of arthroplasty of left knee (~2019) History of arthroplasty of right knee (~2020) History of bladder surgery History of cataract surgery (~2020) History of foot surgery (~2021) History of laparotomy (~2020) History of meniscectomy of left knee (~2018) History of meniscectomy of right knee (~2011) Hx of transurethral destruction of bladder lesion Family History Family History Father Lung cancer Mother History of breast cancer Sister Multiple myeloma Social History Social History Household Members: Spouse Housing: House Do you presently have visiting nurse or other home services: No Alcohol intake: never Patient Tobacco Use Status: Former Tobacco user Quit Date: 12 years ago Tobacco use type: Cigarette Years Smoked: (former smoker - onset 14yo, 1ppd x 46yrs, 45pyh, quit 2009) e-Cigarette/Vaping Use: Never Used Second Hand Smoke Exposure: No Advance Directives: Yes Advance Directives on File: Yes Advance Directives Date on File: 02/14/21 service: Yes ( [employer] - served in [facility]) Current occupational status: retired Current occupational exposures/hazards: Yes (was exposed to Agent [employer] while serving in [employer]) Cognitive needs: No Hearing needs: Yes (hearing aide) Vision needs: No Physical Exam ED Vital Signs: Vital Signs - 24 hr 05/26/22 14:43 Temperature 97.7 F Pulse Rate 76 Respiratory Rate 18 Blood Pressure 131/77 Pulse Oximetry 95 Oxygen Delivery Method Room Air BMI result Body Mass Index 33.0 VITAL SIGNS: Reviewed. GENERAL: Well developed, well nourished, in no acute distress. HEAD: Normocephalic/atraumatic EYES: PERRLA, EOMI EARS: Ext canals without abnormality OROPHARYNX: no oral lesions noted, posterior pharynx clear LUNGS: Normal breath sounds. No adventitious sounds or accessory muscle use. SpO2<95> CARDIOVASCULAR: Regular rate and rhythm without noted murmurs ABDOMEN: Soft, non-tender, non-distended with bowel sounds. MUSCULOSKELETAL: No tenderness, deformities, or effusions noted on gross inspection. EXTREMITIES: No cyanosis, clubbing or edema. SKIN: Inspection of the skin reveals no rashes NEUROLOGIC: Alert and oriented x 4. Strength and sensation to light touch were grossly intact x 4. Course Course Course Narrative: 72-year-old male with history and clinical presentation consistent with small number of clots which were able to be irrigated out and then as CBI continued to run there was immediate clearing of any blood-tinged urine. CBI was then slow down, traction was applied to the 3 way catheter and will reassess and likely discharge home. On re-evaluation patient has had good clearing of clots and bleeding. Patient is otherwise hemodynamically stable and will be discharged home in stable condition with instructions to return should he experience any further complications. Discharge Plan Discharge Clinical Impression: Hematuria, Complication, blocked Dinero catheter Patient Disposition: Home, Self-Care Instructions: Hematuria (ED), Dinero Catheter Placement and Care (ED) Additional Instructions: 1. Please do not hesitate to return to the emergency room should you experience any further complications with your catheter. 2. Recommend to continue follow-up with Dr. Alicea as scheduled. Prescriptions: No Action simvastatin 40 mg tablet 40 mg PO BEDTIME Qty: 90 3RF omeprazole 20 mg capsule,delayed release(DR/EC) 20 mg PO DAILY 90 Days Qty: 90 1RF amoxicillin 500 mg capsule 1 cap PO Q8H prednisone 10 mg tablet PO metoprolol tartrate 50 mg tablet 50 mg PO BID (DME) CPAP Machine/Device Device See Rx Instructions .Route Qty: 1 0RF Rx Instructions: As directed triamcinolone acetonide 0.5 % cream See Rx Instructions .ROUTE .COMPLEX Rx Instructions: as directed Eliquis 5 mg tablet 5 mg PO BID Referrals: Po,Any Johnson MD [Primary Care Provider] - Darrin Alicea MD [Physician] -
--- NOTE | 2022-05-26 20:15 | PC.NURSE ---
Patient was given discharge instructions. Discharge instructions were explained. Patient does not have any questions for the provider. Patient can safely ambulate, steady gait. Patient left with . Dinero bag emptied and removed and leg bag was attached per patient's request.
== END 2022-05-26 20:14 | disposition home or self-care (01) ==
PROVIDERS: Emergency Provider Student in an Organized Health Care Education/Training Program; PCP Internal Medicine
DX: R31.9 Hematuria, unspecified (principal); Z79.899 Other long term (current) drug therapy; Z79.01 Long term (current) use of anticoagulants
CPT/HCPCS: 99283; 99284

== ENCOUNTER → 2022-06-01 08:25 | Outpatient (BNVA) | payer MEDICARE, SELFPAY | PROVIDERS: PCP Internal Medicine; Visit Provider Urology | DX: C67.9 Malignant neoplasm of bladder, unspecified (principal) | CPT/HCPCS: Q3014 ==

== ENCOUNTER 2022-06-09 08:06 | Outpatient (REF) | payer MEDICARE, SELFPAY ==
[2022-06-09 08:14] LABS: MANUAL DIFF FLAG NO
[2022-06-09 08:52] LABS: Basophils Percent Auto 0.8 % (0-2); Eosinophils Absolute Auto 0.2 X10*3/uL (0.0-0.4); Eosinophils Percent Auto 3.4 % (0-4); Hematocrit 43.5 % (42.0-52.0); Hemoglobin 14.5 g/dl (14.0-18.0); Imm Gran Abs Auto 0.01 X10*3/uL (0.00-0.03); Imm Gran Pct Auto 0.2 % (0.0-0.4); Lymphocytes Absolute Auto 1.4 X10*3/uL (1.2-4.9); Lymphocytes Percent Auto 28.8 % (20-40); Mean Corpuscular HGB Conc 33.3 g/dl (31.0-36.0); Mean Corpuscular Hemoglobin 30.4 pg (27.0-33.0); Mean Corpuscular Volume 91.2 fL (80.0-98.0); Mean Platelet Volume 10.2 fL (9.4-12.4); Monocytes Absolute Auto 0.7 X10*3/uL (0.1-1.2); Monocytes Percent Auto 13.4 % (2-11); Neutrophils Absolute Auto 2.7 x10*3/uL (2.0-8.3); Neutrophils Percent Auto 53.4 % (45-73); Platelet Count 234 X10*3/uL (160-400); Red Blood Count 4.77 X10*6/uL (4.60-5.80); Red Cell Distribution Width 14.3 % (11.0-16.0)
[2022-06-09 09:23] LABS: Alanine Aminotransferase 154 U/L (0-40); Alkaline Phosphatase 227 U/L (39-117); Anion Gap 17 (12-20); Aspartate Amino Transferase 59 U/L (5-37); Bilirubin Total 5.8 mg/dL (0.0-1.0); Blood Urea Nitrogen 14 mg/dL (9-16); Calcium 9.4 mg/dL (8.4-10.2); Carbon Dioxide 23 mmol/L (22-29); Chloride 103 mmol/L (96-108); Estimated Glomerular Filt Rate > 60; Glucose Random 104 mg/dL (60-115); Potassium 4.2 mmol/L (3.3-5.1); Sodium 139 mmol/L (135-145); Total Protein 7.2 g/dL (6.5-8.0)
[2022-06-09 09:32] LABS: Appearance Urine Clear; Color Urine Dark Yellow; Glucose Urine UA Negative (Negative); Leukocyte Esterase Urine Large (3+) (Negative); Nitrite Urine Negative (Negative); PH 5.5 (5.0-9.0); Specific Gravity - Urine <= 1.005 (1.005-1.025); UMIC TRIGGER UA YES; Urine Blood Large (3+) (Negative); Urine Ketones Negative (Negative); Urine Protein Negative (Neg-Trace)
[2022-06-09 09:44] LABS: Thyroid Stimulating Hormone 0.79 uIU/mL (0.32-4.0)
[2022-06-09 09:46] LABS: Bacteria Urine None Seen (None Seen); Hyaline Casts Urine 0-2 /LPF (0-2); Squamous Epithelial Cell Urine 0-2 /HPF (0-2); WBC Urine 21-50 /HPF (0-5)
== END 2022-06-09 08:07 | disposition home or self-care (01) ==
LOC: HO.LAB 08:06
PROVIDERS: PCP Internal Medicine; Visit Provider Internal Medicine
DX: I48.0 Paroxysmal atrial fibrillation (principal)
CPT/HCPCS: 36415; 80053; 81001; 84443; 85025

== ENCOUNTER 2022-06-15 07:18 | Outpatient (REF) | payer MEDICARE, SELFPAY ==
[2022-06-15 07:38] LABS: MANUAL DIFF FLAG NO
[2022-06-15 08:26] LABS: Basophils Absolute Auto 0.1 X10*3/uL (0.0-0.2); Eosinophils Absolute Auto 0.6 X10*3/uL (0.0-0.4); Eosinophils Percent Auto 10.7 % (0-4); Hematocrit 43.3 % (42.0-52.0); Hemoglobin 14.5 g/dl (14.0-18.0); Imm Gran Abs Auto 0.02 X10*3/uL (0.00-0.03); Imm Gran Pct Auto 0.3 % (0.0-0.4); Lymphocytes Absolute Auto 1.3 X10*3/uL (1.2-4.9); Lymphocytes Percent Auto 21.7 % (20-40); Mean Corpuscular HGB Conc 33.5 g/dl (31.0-36.0); Mean Corpuscular Hemoglobin 29.6 pg (27.0-33.0); Mean Corpuscular Volume 88.4 fL (80.0-98.0); Mean Platelet Volume 10.5 fL (9.4-12.4); Monocytes Absolute Auto 0.9 X10*3/uL (0.1-1.2); Monocytes Percent Auto 14.7 % (2-11); Neutrophils Percent Auto 51.6 % (45-73); Platelet Count 328 X10*3/uL (160-400); Red Cell Distribution Width 16.2 % (11.0-16.0); White Blood Count 5.8 X10*3/uL (4.8-10.8)
[2022-06-15 08:32] LABS: INTERNATIONAL NORM RATIO 1.3 (0.9-1.1); Prothrombin Time 15.4 SEC (10.0-13.1)
[2022-06-15 08:57] LABS: Alanine Aminotransferase 71 U/L (0-40); Albumin Level 3.8 g/dL (3.5-5.0); Alkaline Phosphatase 284 U/L (39-117); Anion Gap 13 (12-20); Aspartate Amino Transferase 45 U/L (5-37); Bilirubin Direct 11.1 mg/dL (0.0-0.5); Bilirubin Total 16.8 mg/dL (0.0-1.0); Blood Urea Nitrogen 18 mg/dL (9-16); Calcium 9.9 mg/dL (8.4-10.2); Carbon Dioxide 26 mmol/L (22-29); Chloride 100 mmol/L (96-108); Estimated Glomerular Filt Rate > 60; Glucose Random 97 mg/dL (60-115); Lipase 21 U/L (8-78); Potassium 4.5 mmol/L (3.3-5.1); Sodium 134 mmol/L (135-145)
== END 2022-06-15 07:19 | disposition home or self-care (01) ==
LOC: HO.LAB 07:18
PROVIDERS: PCP Internal Medicine; Visit Provider Internal Medicine
DX: J44.9 Chronic obstructive pulmonary disease, unspecified (principal); J30.9 Allergic rhinitis, unspecified; G47.33 Obstructive sleep apnea (adult) (pediatric); R17 Unspecified jaundice; Z79.899 Other long term (current) drug therapy; Z86.16 Personal history of COVID-19; Z87.891 Personal history of nicotine dependence
CPT/HCPCS: 36415; 80053; 82248; 83690; 85025; 85610; 99212

== ENCOUNTER 2022-06-16 13:02 | Outpatient (REF) | payer MEDICARE, SELFPAY ==
--- NOTE | ~2022-06-16 | US_ITS ---
EXAMINATION: US ABDOMEN COMPLETE CLINICAL INFORMATION: Abnormal findings of blood chemistry. COMPARISON: CT scan of the abdomen and pelvis dated 02/14/2021. TECHNIQUE: Real-time imaging of the abdominal viscera. FINDINGS: PANCREAS: Visualized portions unremarkable. ABDOMINAL AORTA: Visualized portions unremarkable. INFERIOR VENA CAVA: Visualized portions unremarkable. LIVER: Punctate calcification inferiorly in the right lobe. Diffuse increased echotexture. GALLBLADDER: Mildly distended without focal abnormality. COMMON BILE DUCT: Normal in caliber measuring 0.3 cm in diameter. RIGHT KIDNEY: 11.9 cm. Exophytic anechoic cyst off of the lower pole measures up to 6.0 cm. Small peripheral echogenic foci are seen. A subcapsular anechoic cyst measures 0.5 cm. No hydronephrosis. Color Doppler showed no abnormal vascular flow. LEFT KIDNEY: 11.9 cm. An exophytic anechoic cyst off of the upper pole measures up to 3.8 cm. No hydronephrosis or nephrolithiasis. SPLEEN: 9.1 cm. Unremarkable. FREE FLUID: None. US/US abdomen complete IMPRESSION: 1. Hepatic steatosis without significant abnormality. 2. Bilateral renal cysts, right greater than left demonstrate benign features correlating with CT findings. No follow-up is recommended at this time.
[2022-06-16 16:26] LABS: INTERNATIONAL NORM RATIO 1.3 (0.9-1.1); Prothrombin Time 14.9 SEC (10.0-13.1)
[2022-06-16 16:45] LABS: Alanine Aminotransferase 70 U/L (0-40); Albumin Level 3.9 g/dL (3.5-5.0); Alkaline Phosphatase 296 U/L (39-117); Anion Gap 11 (12-20); Aspartate Amino Transferase 49 U/L (5-37); Bilirubin Total 18.3 mg/dL (0.0-1.0); Blood Urea Nitrogen 19 mg/dL (9-16); Calcium 9.7 mg/dL (8.4-10.2); Carbon Dioxide 26 mmol/L (22-29); Chloride 101 mmol/L (96-108); Estimated Glomerular Filt Rate > 60; Ferritin 591 ng/mL (20-250); Glucose Random 118 mg/dL (60-115); Iron 175 mcg/dL (45-160); Percent Iron Saturation 60 % (15-50); Potassium 4.2 mmol/L (3.3-5.1); Sodium 134 mmol/L (135-145); Total Iron Binding Capacity 293 mcg/dL (228-428); Total Protein 7.2 g/dL (6.5-8.0); Unsaturated Iron Binding 118 ug/dL
[2022-06-16 16:53] LABS: Monotest Negative (Negative)
[2022-06-19 05:48] LABS: HBS Num1 2.76 mIU/mL (0-7.99); HBc Num1 0.19 S/CO (0.00-0.79); HBsAGNum1 0.24 S/CO (0.00-0.99); Hepatitis B Core Antibody Nonreactive (Nonreactive); Hepatitis B Surface Antigen Negative (Negative); ~HepC Num1 0.16 S/CO (0.00-0.79); ~Hepatitis B Surface Antibody NONREACTIVE (Nonreactive); ~Hepatitis C Antibody Nonreactive (Nonreactive)
[2022-06-19 12:28] LABS: Alpha 1 Anti-trypsin 229 mg/dL (83-199)
[2022-06-20 09:33] LABS: Anti Nuclear Antibody Screen NEGATIVE (NEGATIVE)
[2022-06-21 04:33] LABS: Hepatitis A Antibody IgM 0.11 Index (0-0.79); ~Hepatitis A Antibody IgM Nonreactive (Nonreactive)
[2022-06-21 14:33] LABS: Smooth Muscle Antibody <20 U (<20)
[2022-06-22 13:08] LABS: Mitochondrial Antibodies NEGATIVE (NEGATIVE)
== END 2022-06-16 13:03 | disposition home or self-care (01) ==
LOC: HO.US 13:02
PROVIDERS: Absent Provider Internal Medicine; PCP Internal Medicine; Visit Provider Internal Medicine
DX: R17 Unspecified jaundice (principal); R79.89 Other specified abnormal findings of blood chemistry
CPT/HCPCS: 36415; 76700; 80053; 82103; 82728; 83540; 85610; 86015; 86038; 86039; 86255; 86256; 86308; 86704; 86706; 86709; 86803; 87340

== ENCOUNTER 2022-06-19 09:09 | Outpatient (REF) | payer MEDICARE, SELFPAY ==
[2022-06-19 10:03] LABS: INTERNATIONAL NORM RATIO 1.3 (0.9-1.1); Prothrombin Time 14.9 SEC (10.0-13.1)
[2022-06-19 10:34] LABS: Erythrocyte Sedimentation Rate 33 MM/HR (0-15)
[2022-06-19 10:35] LABS: Alanine Aminotransferase 86 U/L (0-40); Albumin Level 3.8 g/dL (3.5-5.0); Alkaline Phosphatase 259 U/L (39-117); Aspartate Amino Transferase 61 U/L (5-37); Bilirubin Direct 12.4 mg/dL (0.0-0.5); Bilirubin Total 18.4 mg/dL (0.0-1.0); C Reactive Protein 0.87 mg/dL (< or = 0.50); Total Protein 6.9 g/dL (6.5-8.0)
== END 2022-06-19 09:10 | disposition home or self-care (01) ==
LOC: HO.LAB 09:09
PROVIDERS: Visit Provider Internal Medicine
DX: R17 Unspecified jaundice (principal)
CPT/HCPCS: 36415; 80076; 85610; 85652; 86140

== ENCOUNTER 2022-06-19 15:59 | Observation (INO) | payer MEDICARE, SELFPAY ==
--- NOTE | ~2022-06-19 | CT_ITS ---
EXAMINATION: CT ANGIOGRAM OF THE CHEST WITH AND WITHOUT CONTRAST (CT PULMONARY ANGIOGRAM FOR PE) CLINICAL INFORMATION: Shortness of breath. Labored breathing. COMPARISON: Chest x-ray earlier today and CT lung screening 04/07/2022 TECHNIQUE: Prior to contrast administration, noncontrast localization images were obtained. Subsequently, multidetector volumetric imaging was performed from the thoracic inlet to below the diaphragms following the administration of 75 mL Omnipaque 350 intravenous contrast. No contrast reaction reported Sagittal, coronal, and MIP oblique sagittal reformatted images were obtained on the CT workstation, uploaded to PACS, and reviewed. This CT examination was performed using dose optimization techniques as appropriate, variously including the following: *Automated exposure control *Adjustment of mA and/or kV according to patient size (this includes techniques or standardized protocols for targeted exams where dose is matched to indication/reason for exam; i.e. extremities or head) *Use of iterative reconstruction technique Total exam dose-length product 347 mGy-cm FINDINGS: The heart is normal in size. Coronary artery calcifications are present. There is no pericardial effusion. Normal caliber thoracic aorta. No pulmonary arterial filling defect to suggest pulmonary embolus. No gross mediastinal or hilar lymphadenopathy. No pathologically enlarged axillary lymph nodes. Central airways are patent. Lungs are well aerated. Mild emphysematous changes are noted. There is no lobar consolidation. No pleural effusion or pneumothorax. Minimal biapical architectural distortion/scarring. Stable 3 mm right upper lobe pulmonary nodule and 3 mm left lower lobe pulmonary nodule. 3 mm subpleural pulmonary nodule versus nodular density of the posterior left lower lobe is also stable (image [id number], series 7. No new suspicious pulmonary nodules visualized. Visualized portions of the upper abdomen partially visualize bilateral renal cysts. No acute osseous abnormality. CT/CT angio chest PE protocol IMPRESSION: 1. No pulmonary arterial filling defect to suggest pulmonary embolus. 2. A few sub-5 mm pulmonary nodules are stable. No new suspicious pulmonary nodules visualized VTE: negative
--- NOTE | ~2022-06-19 | XR_ITS ---
EXAMINATION: XR CHEST CLINICAL INFORMATION: Cough COMPARISON: 02/15/2021 TECHNIQUE: Frontal view of the chest was obtained. FINDINGS: No significant abnormality is noted involving the heart, lungs, mediastinum, bony thorax or soft tissues. XR/XR chest 1V IMPRESSION: Unremarkable examination.
[2022-06-19 17:37] VITALS: BP 126/80; PULSE 80; RESP 24; TEMP 36.6; O2SAT 96; BMI 30.7
--- NOTE | 2022-06-19 17:42 | ECG_ITS ---
Test Reason : SHORTNESS OF BREATH Blood Pressure : / mmHG Vent. Rate : 072 BPM Atrial Rate : 072 BPM P-R Int : 156 ms QRS Dur : 164 ms QT Int : 446 ms P-R-T Axes : 020 -48 102 degrees QTc Int : 488 ms Normal sinus rhythm Left axis deviation Left bundle branch block Abnormal ECG When compared with ECG of 14-FEB-2021 07:55, No significant change was found Referred By: Mary Vaughn Electronically Signed By:KAYLYNN DUMONT MD
--- NOTE | 2022-06-19 17:42 | ED.GENADULT ---
HPI - General Adult General Chief complaint: General Medical <Mary Vaughn MD - Last Filed: 06/19/22 17:45> Stated complaint: sob,coughing,jaundice <Mary Vaughn MD - Last Filed: 06/19/22 17:45> Time Seen by Provider: 06/19/22 18:01 <Mary Vaughn MD - Last Filed: 06/19/22 17:45> Source: patient and family <FABIENNE Hernández - Last Filed: 06/19/22 22:05> Mode of arrival: ambulatory <FABIENNE Hernández - Last Filed: 06/19/22 22:05> Limitations: no limitations <FABIENNE Hernández - Last Filed: 06/19/22 22:05> History of Present Illness HPI narrative: Volodymyr is a 72-year-old male with a past medical history of COPD, jaundice, cough, PAF, obstructive sleep apnea w/ night CPAP, and bladder cancer who presents to the emergency department today with chief complaint of worsening cough, shortness of breath for the last 24 hours. He says that for the last 24 hours he has had a productive cough with green phlegm, wheezing, and shortness of breath. He says typically his CPAP will help him fall asleep, but last night this did not help. Over the last 24 hours he has had to use his albuterol inhaler multiple times which also does not seem to be helping. He was saw the cracking unit operator earlier this month for similar issue and was told his cough was most likely secondary to chronic obstructive pulmonary disease/reactive airways. He denies recent travel or sick contacts. He additionally complains of a low-grade fever, nausea, and last week he had some diarrhea which self-resolved. He denies chills, headache, sore throat, chest pain, vomiting, and constipation. He has a history of bladder cancer, and does admit to blood in his urine, but said this is a chronic problem and is not concerned at this time. Of note, he did stop taking Eliquis because of the blood in his urine. He comes into the emergency department today because he thinks he needs a ?breathing treatment?. <FABIENNE Hernández - Last Filed: 06/19/22 22:05> Onset (ago): day(s) <FABIENNE Hernández - Last Filed: 06/19/22 22:05> Location: chest <FABIENNE Hernández Last Filed: 06/19/22 22:05> Radiation: non-radiation <FABIENNE Hernández Last Filed: 06/19/22 22:05> Relieving factors: none <FABIENNE Hernández Last Filed: 06/19/22 22:05> Exacerbating factors: none <FABIENNE Hernández Last Filed: 06/19/22 22:05> Associated symptoms: cough, nausea/vomiting, rash (Patient indicates that he has a rash related to his jaundice, is being treated) and shortness of breath <FABIENNE Hernández Last Filed: 06/19/22 22:05> Related Data Home medications: Home Medications Medication Instructions Recorded Confirmed apixaban 5 mg tablet (Eliquis) 5 mg PO BID 11/09/21 06/15/22 triamcinolone acetonide 0.5 % See Rx Instructions .Route 11/09/21 06/15/22 topical cream .COMPLEX rash metoprolol tartrate 50 mg tablet 50 mg PO BID 02/14/22 06/15/22 albuterol sulfate 90 mcg/actuation 2 puff inhalation Q4H PRN dyspnea 06/15/22 06/15/22 aerosol inhaler Previous Rx's Medication Instructions Recorded omeprazole 20 mg capsule,delayed 20 mg PO DAILY 90 days #90 caps 12/26/21 release CPAP (CPAP Machine/Device) #1 ea 02/14/22 albuterol sulfate 90 mcg/actuation 2 puff inhalation Q4-6H PRN 06/19/22 aerosol inhaler shortness of breath or wheezing 30 days #8.5 grams <Mary Vaughn MD - Last Filed: 06/19/22 17:45> Allergies/adverse reactions: Allergies Allergy/AdvReac Type Severity Reaction Status Date / Time dronedarone [From Multaq] Allergy Mild Rash Verified 06/19/22 17:43 <Mary Vaughn MD - Last Filed: 06/19/22 17:45> Review of Systems Review of Systems: Constitutional : No Weight loss, No Fever, No Chills, No Fatigue, No Malaise ENT/Mouth : No sore throat, No Rhinorrhea Eyes: No Eye Pain, No Swelling, No Redness Cardiovascular : No Chest Pain, + SOB, + Dyspnea on Exertion, + Orthopnea, No Edema, No Palpitations Respiratory : + Cough, + Sputum, + Wheezing Gastrointestinal : No Nausea, No Vomiting, No Diarrhea, No Constipation, No abdominal Pain, No Hematochezia, No Melena Genitourinary : No Dysuria, No Urinary Frequency, No Hematuria, Musculoskeletal : No joint pain, No Myalgias, No Joint Swelling Skin : No Skin Lesions, No rash, + jaundice Neuro : No Weakness, No Numbness, No Dizziness, No Headache Psych : No Anxiety/Panic, No Depression All other systems reviewed and are negative <FABIENNE Hernández - Last Filed: 06/19/22 22:05> Yes all other systems are reviewed and are negative <FABIENNE Hernández - Last Filed: 06/19/22 22:05> [facility] Past Medical History Attestation statement: The following information was validated with the patient. <FABIENNE Hernández - Last Filed: 06/19/22 22:05> Source: old records reviewed and obtained from family <FABIENNE Hernández - Last Filed: 06/19/22 22:05> Medical History: Medical History Bladder cancer COPD (chronic obstructive pulmonary disease) Erectile dysfunction GERD (gastroesophageal reflux disease) History of COVID-19 History of small bowel obstruction Hypercholesterolemia LBBB (left bundle branch block) Obesity (BMI 30-39.9) Obstructive sleep apnea PAF (paroxysmal atrial fibrillation) Personal history of nicotine dependence PVC (premature ventricular contraction) SVT (supraventricular tachycardia) <Mary Vaughn MD - Last Filed: 06/19/22 17:45> Surgical History: Surgical History History of appendectomy History of arthroplasty of left knee (~2019) History of arthroplasty of right knee (~2020) History of bladder surgery History of cataract surgery (~2020) History of foot surgery (~2021) History of laparotomy (~2020) History of meniscectomy of left knee (~2018) History of meniscectomy of right knee (~2011) Hx of transurethral destruction of bladder lesion <Mary Vaughn MD - Last Filed: 06/19/22 17:45> Family History Family History: Family History Father Lung cancer Mother History of breast cancer Sister Multiple myeloma <Mary Vaughn MD - Last Filed: 06/19/22 17:45> Social History Social History: Social History Household Members: Spouse Housing: House Do you presently have visiting nurse or other home services: No Alcohol intake: former Patient Tobacco Use Status: Former Tobacco user Quit Date: 12 years ago Tobacco use type: Cigarette Years Smoked: (former smoker - onset 14yo, 1ppd x 46yrs, 45pyh, quit 2009) Smoked in Last 30 Days: No e-Cigarette/Vaping Use: Never Used Second Hand Smoke Exposure: No Use of substances other than those prescribed or required for medical reasons: No Advance Directives: Yes Advance Directives on File: Yes Advance Directives Date on File: 02/14/21 service: Yes ( [employer] - served in [facility]) Current occupational status: retired Current occupational exposures/hazards: Yes (was exposed to [employer] while serving in [employer]) Cognitive needs: No Hearing needs: Yes (hearing aide) Vision needs: No <Mary Vaughn MD - Last Filed: 06/19/22 17:45> Physical Exam ED Vital Signs: Vital Signs - 24 hr 06/19/22 17:37 06/19/22 18:15 06/19/22 19:51 Temperature 97.8 F 97.9 F Pulse Rate 80 82 Respiratory Rate 24 H 16 23 H Blood Pressure 126/80 148/79 H Pulse Oximetry 96 93 Oxygen Delivery Method Room Air Room Air 06/19/22 19:58 Temperature Pulse Rate 77 Respiratory Rate 16 Blood Pressure Pulse Oximetry Oxygen Delivery Method BMI result Body Mass Index 30.7 <Mary Vaughn MD - Last Filed: 06/19/22 17:45> Vital Signs - 24 hr 06/19/22 17:37 06/19/22 18:15 06/19/22 19:51 Temperature 97.8 F 97.9 F Pulse Rate 80 82 Respiratory Rate 24 H 16 23 H Blood Pressure 126/80 148/79 H Pulse Oximetry 96 93 Oxygen Delivery Method Room Air Room Air 06/19/22 19:58 Temperature Pulse Rate 77 Respiratory Rate 16 Blood Pressure Pulse Oximetry Oxygen Delivery Method BMI result Body Mass Index 30.7 vss <FABIENNE Hernández - Last Filed: 06/19/22 22:05> Appearance: Alert.? Oriented X3.? No acute distress.? Head: Normocephalic, atraumatic, no step-offs or deformities Eyes: Pupils equal, round and reactive to light.?+ icteric sclera CVS: Normal heart rate and rhythm.? Pulses normal.? Respiratory: No respiratory distress.? Breath sounds w/ decreased breath sounds b/l, scattered rhonchi with exp wheeze.? Abdomen: Soft and nontender.? Skin: Skin warm and dry.? + jaundice skin color.? Normal skin turgor.? Extremities: No lower extremity edema.? No calf ttp. 5/5 strength to bilateral upper and lower extremities Neuro: Oriented X 3.? No motor deficit.? No sensory deficit. CN 2-12 intact <FABIENNE Hernández - Last Filed: 06/19/22 22:05> Course Course Course Narrative: 72M with worsening SOB and jaundice for the past few days. Denies fevers, chills, abd pain, currently being worked up for COPD. VS Reviewed Scleral icterus, jaundice+ PULM: decreased Left, scattered rhonchi with exp wheeze - Labs, imaging, lactic/BCx, suspect possible COPD or pleural effusion <Mary Vaughn MD - Last Filed: 06/19/22 17:45> Reevaluation(s) Reevaluation #1: Patient's CBC appears to be within patient's baseline. Chemistry with no acute electrolyte abnormalities requiring intervention. Patient is noted to have baseline elevated total bilirubin, AST is, ALT is, alk-phos, on exam there is no abdominal tenderness however patient is very jaundice, he is currently followed by . Troponin negative, EKG nonischemic. Chest x-ray unremarkable. CT PE protocol with no arterial filling defect to suggest PE. Pulmonary nodules noted. UA with large amount of red blood cells, patient has hematuria at baseline, followed by urology for this, secondary to bladder cancer. Flu/COVID/RSV negative. Despite magnesium, Solu-Medrol, DuoNebs patient is still wheezing with rhonchi and crackles, will admit for bronchitis. <FABIENNE Hernández - Last Filed: 06/19/22 22:05> Time: 22:04 <FABIENNE Hernández - Last Filed: 06/19/22 22:05> Medications Administered Discontinued Medications Generic Name Dose Route Start Last Admin Trade Name Freq PRN Reason Stop Dose Admin Albuterol/Ipratropium 3 ml 06/19/22 19:39 06/19/22 19:59 Albuterol/Iprat 2.5/0.5mg 3 Ml Ampul.Neb INHALE 06/19/22 19:40 3 ml ONCE ONE Administration Ceftriaxone Sodium 1 gm/ 50 mls @ 100 mls/hr 06/19/22 19:40 06/19/22 20:08 Sodium Chloride IV 06/19/22 20:09 100 mls/hr ONCE ONE Administration Iohexol 100 ml 06/19/22 21:01 06/19/22 21:01 Iohexol 350 Mg/Ml 100 Ml Infus..Btl IV 06/19/22 21:02 75 ml ONCE ONE Administration Methylprednisolone Sodium Succinate 125 mg 06/19/22 19:39 06/19/22 20:08 Methylprednisolone Sod Succ 125 Mg/2 Ml Vial IVPUSH 06/19/22 19:40 125 mg ONCE ONE Administration <Mary Vaughn MD - Last Filed: 06/19/22 17:45> Medications Administered Discontinued Medications Generic Name Dose Route Start Last Admin Trade Name Freq PRN Reason Stop Dose Admin Albuterol/Ipratropium 3 ml 06/19/22 19:39 06/19/22 19:59 Albuterol/Iprat 2.5/0.5mg 3 Ml Ampul.Neb INHALE 06/19/22 19:40 3 ml ONCE ONE Administration Ceftriaxone Sodium 1 gm/ 50 mls @ 100 mls/hr 06/19/22 19:40 06/19/22 20:08 Sodium Chloride IV 06/19/22 20:09 100 mls/hr ONCE ONE Administration Iohexol 100 ml 06/19/22 21:01 06/19/22 21:01 Iohexol 350 Mg/Ml 100 Ml Infus..Btl IV 06/19/22 21:02 75 ml ONCE ONE Administration Methylprednisolone Sodium Succinate 125 mg 06/19/22 19:39 06/19/22 20:08 Methylprednisolone Sod Succ 125 Mg/2 Ml Vial IVPUSH 06/19/22 19:40 125 mg ONCE ONE Administration <FABIENNE Hernández - Last Filed: 06/19/22 22:05> Medical Decision Making Medical Decision Making MDM Narrative: 1902 72-year-old male presenting with productive cough times 24 hours, shortness of breath, fatigue and malaise. Exam significant for inspiratory and expiratory wheezing as well as crackles and rhonchi throughout. <FABIENNE Hernández - Last Filed: 06/19/22 22:05> Critical Care Time Critical Care Time Critical Care Time: No <FABIENNE Hernández - Last Filed: 06/19/22 22:05> Discharge Plan Discharge Clinical Impression: Jaundice, Bronchitis, Shortness of breath <Mary Vaughn MD - Last Filed: 06/19/22 17:45> Patient Disposition: Admitted As Inpatient <Mary Vaughn MD - Last Filed: 06/19/22 17:45>
[2022-06-19 18:14] LABS: MANUAL DIFF FLAG NO
[2022-06-19 18:15] VITALS: RESP 16
[2022-06-19 18:16] LABS: Venous Blood Gas Refer to POC result
--- NOTE | 2022-06-19 18:16 | PC.NURSE ---
Alert and oriented, at bedside. Pt jaundice and complaining of difficulty breathing, 97% room air. IV established, labs drawn and sent.
[2022-06-19 18:17] LABS: VBG Base Excess -1.8 mmol/L; VBG HCO3 22 mmol/L (22-26); VBG pCO2 37 mmHg; VBG pH 7.38 (7.32-7.43); VBG pO2 42 mmHg
[2022-06-19 18:20] LABS: Basophils Absolute Auto 0.1 X10*3/uL (0.0-0.2); Basophils Percent Auto 0.9 % (0-2); Eosinophils Absolute Auto 0.3 X10*3/uL (0.0-0.4); Eosinophils Percent Auto 3.7 % (0-4); Hematocrit 41.2 % (42.0-52.0); Hemoglobin 14.1 g/dl (14.0-18.0); Imm Gran Abs Auto 0.04 X10*3/uL (0.00-0.03); Imm Gran Pct Auto 0.5 % (0.0-0.4); Lymphocytes Percent Auto 12.5 % (20-40); Mean Corpuscular HGB Conc 34.2 g/dl (31.0-36.0); Mean Corpuscular Hemoglobin 29.6 pg (27.0-33.0); Mean Corpuscular Volume 86.6 fL (80.0-98.0); Mean Platelet Volume 10.5 fL (9.4-12.4); Monocytes Absolute Auto 0.8 X10*3/uL (0.1-1.2); Monocytes Percent Auto 9.7 % (2-11); Neutrophils Absolute Auto 5.7 x10*3/uL (2.0-8.3); Neutrophils Percent Auto 72.7 % (45-73); Platelet Count 295 X10*3/uL (160-400); Red Blood Count 4.76 X10*6/uL (4.60-5.80); Red Cell Distribution Width 16.4 % (11.0-16.0); White Blood Count 7.8 X10*3/uL (4.8-10.8)
[2022-06-19 18:21] LABS: INTERNATIONAL NORM RATIO 1.2 (0.9-1.1); Prothrombin Time 14.3 SEC (10.0-13.1)
[2022-06-19 18:39] LABS: Lactic Acid 1.1 mmol/L (0.5-2.0)
[2022-06-19 18:48] LABS: Troponin-I High Sensitivity < 3.5 ng/L (<3.5-35.0)
[2022-06-19 19:02] LABS: Alanine Aminotransferase 92 U/L (0-40); Albumin Level 3.9 g/dL (3.5-5.0); Alkaline Phosphatase 265 U/L (39-117); Anion Gap 15 (12-20); Aspartate Amino Transferase 65 U/L (5-37); Bilirubin Total 20.2 mg/dL (0.0-1.0); Blood Urea Nitrogen 18 mg/dL (9-16); Calcium 9.3 mg/dL (8.4-10.2); Carbon Dioxide 23 mmol/L (22-29); Chloride 104 mmol/L (96-108); Creatinine Clr Calc Pharmacy 75.7; Estimated Glomerular Filt Rate > 60; Glucose Random 132 mg/dL (60-115); Lipase 23 U/L (8-78); Sodium 138 mmol/L (135-145); Total Protein 7.3 g/dL (6.5-8.0)
[2022-06-19 19:51] VITALS: BP 148/79; PULSE 82; RESP 23; TEMP 36.6; O2SAT 93
--- NOTE | 2022-06-19 19:56 | PC.NURSE ---
VS assessed. Patient O2Sat at 93%. Respiratory to administer breathing txmt and has been notified of patient's O2Sat.
[2022-06-19 19:58] VITALS: PULSE 77; RESP 16; O2SAT 94
[2022-06-19] MEDS: Albuterol/Iprat 2.5/0.5MG 3 ML AMPUL.NEB INHALE (19:59)
[2022-06-19] MEDS: methylPREDNISolone Sod Succ 125 MG/2 ML VIAL IVPUSH (20:08)
[2022-06-19] MEDS: cefTRIAXone sodium 1 GM in 0.9 % Sodium Chloride 50 ML IV (20:08)
--- NOTE | 2022-06-19 20:12 | PC.NURSE ---
Administered solumedrol IV push and ceftriaxone per SEP.
[2022-06-19 20:18] LABS: Appearance Urine Cloudy; Color Urine Dark Yellow; Glucose Urine UA Negative (Negative); Leukocyte Esterase Urine Moderate (2+) (Negative); Nitrite Urine Negative (Negative); PH 5.5 (5.0-9.0); Specific Gravity - Urine 1.015 (1.005-1.025); UMIC TRIGGER UACC YES; Urine Blood Large (3+) (Negative); Urine Ketones Negative (Negative); Urine Protein 30 (1+) mg/dL (Neg-Trace)
[2022-06-19 20:23] LABS: Bacteria Urine None Seen (None Seen); Hyaline Casts Urine 0-2 /LPF (0-2); RBC Urine >20 /HPF (0-2); UACC Culture Trigger YES; WBC Urine >50 /HPF (0-5)
--- NOTE | 2022-06-19 20:27 | PC.NURSE ---
After the breathing txmt administered by respiratory patient's O2Sat went from 93% to 96%. However, within 10 minutes of the breathing txmt patient desat back down to 93%. Patient placed on 2L NC. Patient is now staying at O2Sat of 96%.
[2022-06-19] MEDS: iohexoL 350 MG/ML 100 ML INFUS..BTL IV (21:01)
[2022-06-19 21:17] LABS: Influenza A PCR NEGATIVE (Negative); Influenza B PCR NEGATIVE (Negative); Resp Syncy Virus RNA Qual PCR NEGATIVE (Negative); SARS COV2 PCR INHOUSE NEGATIVE (Negative)
--- NOTE | 2022-06-19 22:27 | PM.IMHP ---
History of Present Illness Date of Service: 06/19/22 Chief Complaint: Dyspnea This is a 72-year-old male with pertinent history of COPD not on home oxygen, bladder cancer status post surgery, jaundice, paroxysmal atrial fibrillation, ANALY on CPAP presents to the emergency department for evaluation dyspnea and wheezing. Patient states that over the last 1-2 days he has been having worsening upper respiratory symptoms and dry cough. It soon progressed and he started having dyspnea even with minimal ambulation. Associated with wheezing. The wheezing and dyspnea did not resolve with his home albuterol inhaler. He recently saw a ice skating coach and was told that he likely has COPD. Patient denies fever, chills, nausea, vomiting. Patient was also evaluated by NATACHA Paiz for jaundice. Cause unknown and workup in progress. He also has bladder cancer status post surgery and is followed by Dr. Alicea. Does have intermittent hematuria due to the same and hence Eliquis was discontinued. He denies chest discomfort, palpitations, abdominal pain, changes in urinary or bowel habits In the emergency department, patient was found to be wheezing and dyspneic. Maintain normal oxygen saturation on room air. Review of Systems Cardiovascular: Cardiovascular: Reports no additional cardiovascular complaints and Reports dyspnea on exertion Respiratory: Respiratory: Reports cough, Reports dyspnea on exertion and Reports wheezing Allergic/Immunologic: Allergic/Immunologic: Reports wheezing [facility] Medical History Bladder cancer COPD (chronic obstructive pulmonary disease) Erectile dysfunction GERD (gastroesophageal reflux disease) History of COVID-19 History of small bowel obstruction Hypercholesterolemia LBBB (left bundle branch block) Obesity (BMI 30-39.9) Obstructive sleep apnea PAF (paroxysmal atrial fibrillation) Personal history of nicotine dependence PVC (premature ventricular contraction) SVT (supraventricular tachycardia) Family History Father Lung cancer Mother History of breast cancer Sister Multiple myeloma Surgical History History of appendectomy History of arthroplasty of left knee (~2019) History of arthroplasty of right knee (~2020) History of bladder surgery History of cataract surgery (~2020) History of foot surgery (~2021) History of laparotomy (~2020) History of meniscectomy of left knee (~2019) History of meniscectomy of right knee (~2011) Hx of transurethral destruction of bladder lesion Social History Household Members: Spouse Housing: House Do you presently have visiting nurse or other home services: No Alcohol intake: former Patient Tobacco Use Status: Former Tobacco user Quit Date: 12 years ago Tobacco use type: Cigarette Years Smoked: (former smoker - onset 14yo, 1ppd x 46yrs, 45pyh, quit 2009) Smoked in Last 30 Days: No e-Cigarette/Vaping Use: Never Used Second Hand Smoke Exposure: No Use of substances other than those prescribed or required for medical reasons: No Advance Directives: Yes Advance Directives on File: Yes Advance Directives Date on File: 02/14/21 service: Yes ( [employer] - served in [facility]) Current occupational status: retired Current occupational exposures/hazards: Yes (was exposed to Agent [place] while serving in [employer]) Cognitive needs: No Hearing needs: Yes (hearing aide) Vision needs: No Meds Allergies Allergy/AdvReac Type Severity Reaction Status Date / Time dronedarone [From Multaq] Allergy Mild Rash Verified 06/19/22 17:43 Active Medications: Current Medications Acetaminophen (Acetaminophen 325 Mg Tablet) 650 mg PO Q6H PRN PRN Reason: Pain, Mild (Pain Scale 1-3) Albuterol/Ipratropium (Albuterol/Iprat 2.5/0.5mg 3 Ml Ampul.Neb) 3 ml INHALE RQ4H WHILE AWAKE PANCHITO Albuterol/Ipratropium (Albuterol/Iprat 2.5/0.5mg 3 Ml Ampul.Neb) 3 ml INHALE RQ4H PRN PRN Reason: wheezing Melatonin (Melatonin 3 Mg Tablet) 6 mg PO BEDTIME PRN PRN Reason: Insomnia Methylprednisolone Sodium Succinate (Methylprednisolone Sod Succ 40 Mg/Ml Vial) 40 mg IVPUSH BID PANCHITO Ondansetron HCl (Ondansetron Hcl 4 Mg/2 Ml Vial) 4 mg IVPUSH Q8H PRN PRN Reason: Nausea and Vomiting Pharmacy Consult (Consult Rx Perform Med Rec) 1 each MISCELLANE ONCE PRN PRN Reason: Consult order Sodium Chloride (0.9 % Sodium Chloride Flush 3 Ml Syringe) 3 ml IVFLUSH QSHIFT [facility] Home Medications Medication Instructions Recorded Confirmed Last Taken Type apixaban 5 mg tablet (Eliquis) 5 mg PO BID 11/09/21 06/19/22 05/19/22 History metoprolol tartrate 50 mg tablet 50 mg PO BID 02/14/22 06/19/22 05/22/22 History albuterol sulfate 90 mcg/actuation 2 puff inhalation Q4H PRN 06/19/22 06/19/22 Unknown History aerosol inhaler shortness of breath or wheezing triamcinolone acetonide 0.1 % 1 appl topical BID 06/19/22 06/19/22 Unknown History topical cream Physical Exam Vital Signs and Narrative: Vital Signs: Last Vital Signs Temp 97.9 F 06/19/22 19:51 Pulse 77 06/19/22 19:58 Resp 16 06/19/22 19:58 BP 148/79 H 06/19/22 19:51 Pulse Ox 93 06/19/22 19:51 O2 Del Method 06/19/22 19:51 BMI result Body Mass Index 30.7 Middle-aged male lying in bed in mild distress Skin: Icteric Neck supple, no JVD Regular rate and rhythm, S1-S2 heard Bilateral expiratory wheeze present Abdomen soft nontender, no guarding, no rigidity Patient is awake, alert and oriented to self, place, time and person ; no focal motor deficit Psych: Normal mood No pedal edema Results Labs CBC and Chem 7: 06/19/22 18:08 06/19/22 18:08 Labs: Laboratory Results - last 24 hr 06/19/22 06/19/22 06/19/22 18:08 18:08 18:08 MCV 86.6 MCH 29.6 MCHC 34.2 RDW 16.4 H Plt Count 295 MPV 10.5 Immature Gran % (Auto) 0.5 H Neut % (Auto) 72.7 Lymph % (Auto) 12.5 L [place] % (Auto) 9.7 Eos % (Auto) 3.7 Baso % (Auto) 0.9 Lymph # (Auto) 1.0 L [place] # (Auto) 0.8 Eos # (Auto) 0.3 Baso # (Auto) 0.1 Abs Immat Gran (auto) 0.04 H Absolute Neuts (auto) 5.7 Absolute Nucleated RBC 0.000 Nucleated RBC % (auto) 0.0 PT 14.3 H INR 1.2 H VBG pH VBG pCO2 VBG pO2 VBG HCO3 VBG O2 Saturation VBG Base Excess Anion Gap 15 Estim Creat Clear Calc 75.7 Estimated GFR > 60 Random Glucose 132 H Lactic Acid Calcium 9.3 Total Bilirubin 20.2 H AST 65 H ALT 92 H Alkaline Phosphatase 265 H Troponin I High Sens Total Protein 7.3 Albumin 3.9 Lipase 23 Urine Color Urine Appearance Urine pH Ur Specific [place] Urine Protein Urine Glucose (UA) Urine Ketones Urine Blood Urine Nitrite Ur Leukocyte Esterase Urine RBC Urine WBC Ur Squamous Epith Cells Urine Bacteria Hyaline Casts Influenza Type A (PCR) Influenza Type B (PCR) RSV RNA Qual (PCR) SARS-CoV-2 RNA (RT-PCR) 06/19/22 06/19/22 06/19/22 18:08 18:08 18:11 MCV MCH MCHC RDW Plt Count MPV Immature Gran % (Auto) Neut % (Auto) Lymph % (Auto) [place] % (Auto) Eos % (Auto) Baso % (Auto) Lymph # (Auto) [place] # (Auto) Eos # (Auto) Baso # (Auto) Abs Immat Gran (auto) Absolute Neuts (auto) Absolute Nucleated RBC Nucleated RBC % (auto) PT INR VBG pH 7.38 VBG pCO2 37 VBG pO2 42 VBG HCO3 22 VBG O2 Saturation 65.0 VBG Base Excess -1.8 Anion Gap Estim Creat Clear Calc Estimated GFR Random Glucose Lactic Acid 1.1 Calcium Total Bilirubin AST ALT Alkaline Phosphatase Troponin I High Sens < 3.5 Total Protein Albumin Lipase Urine Color Urine Appearance Urine pH Ur Specific [place] Urine Protein Urine Glucose (UA) Urine Ketones Urine Blood Urine Nitrite Ur Leukocyte Esterase Urine RBC Urine WBC Ur Squamous Epith Cells Urine Bacteria Hyaline Casts Influenza Type A (PCR) Influenza Type B (PCR) RSV RNA Qual (PCR) SARS-CoV-2 RNA (RT-PCR) 06/19/22 06/19/22 19:51 20:25 MCV MCH MCHC RDW Plt Count MPV Immature Gran % (Auto) Neut % (Auto) Lymph % (Auto) [place] % (Auto) Eos % (Auto) Baso % (Auto) Lymph # (Auto) [place] # (Auto) Eos # (Auto) Baso # (Auto) Abs Immat Gran (auto) Absolute Neuts (auto) Absolute Nucleated RBC Nucleated RBC % (auto) PT INR VBG pH VBG pCO2 VBG pO2 VBG HCO3 VBG O2 Saturation VBG Base Excess Anion Gap Estim Creat Clear Calc Estimated GFR Random Glucose Lactic Acid Calcium Total Bilirubin AST ALT Alkaline Phosphatase Troponin I High Sens Total Protein Albumin Lipase Urine Color Dark Yellow Urine Appearance Cloudy Urine pH 5.5 Ur Specific [place] 1.015 Urine Protein 30 (1+) H Urine Glucose (UA) Negative Urine Ketones Negative Urine Blood Large (3+) H Urine Nitrite Negative Ur Leukocyte Esterase Moderate (2+) H Urine RBC >20 H Urine WBC >50 H Ur Squamous Epith Cells 11-20 Urine Bacteria None Seen Hyaline Casts 0-2 Influenza Type A (PCR) NEGATIVE Influenza Type B (PCR) NEGATIVE RSV RNA Qual (PCR) NEGATIVE SARS-CoV-2 RNA (RT-PCR) NEGATIVE Imaging Radiologist's Impressions: Impressions Chest X-Ray 06/19/22 18:35 IMPRESSION: Unremarkable examination. Chest CTA 06/19/22 21:16 IMPRESSION: 1. No pulmonary arterial filling defect to suggest pulmonary embolus. 2. A few sub-5 mm pulmonary nodules are stable. No new suspicious pulmonary nodules visualized VTE: negative Assessment and Plan (1) COPD (chronic obstructive pulmonary disease): Status: Acute (2) Shortness of breath: Status: Acute (3) Bronchitis: Status: Acute (4) Jaundice: Status: Acute (5) PAF (paroxysmal atrial fibrillation): Status: Acute (6) Bladder cancer: Status: Acute (7) Obstructive sleep apnea: Status: Acute Plan This is a 72-year-old male with pertinent history of COPD not on home oxygen, bladder cancer status post surgery, jaundice, paroxysmal atrial fibrillation, ANALY on CPAP presents to the emergency department for evaluation dyspnea and wheezing. #. Acute dyspnea due to: #. Acute exacerbation of COPD in the setting of viral bronchitis -will admit patient and initiate scheduled and p.r.n. DuoNebs. Continue systemic steroids. No concern for bacterial superinfection, defer antibiotics #. Jaundice: Unclear etiology. Reviewed recent note from GI visit. Is followed by Dr. Darrian Khan as an outpatient. Recent ultrasound of the abdomen without acute abnormalities. Patient is scheduled for MRI of the liver with MRCP as an outpatient on 06/21/2022. #. Intermittent hematuria due to bladder cancer: Is followed by Dr. Alicea as an outpatient #. Paroxysmal atrial fibrillation: Normal sinus rhythm at the time of admission. Eliquis was discontinued due to intermittent hematuria #. Obstructive sleep apnea: Continue home CPAP Med rec pending DVT prophylaxis: Mechanical. Defer Lovenox due to intermittent hematuria Full code Regular diet Quality Stroke Does the patient have a stroke diagnosis?: No VTE Prior VTE?: No VTE Risk Level:: Medical - moderate - high VTE Device Contraindication: N/A - Device Ordered VTE Drug Contraindication: Treatment Not Indicated
--- OUTSIDE RECORDS SUMMARY | 2022-06-19 22:35 | XMS_ITS | Continuity of Care Document ---
:1950 Author Organization [facility] Address [address] [place] [address]- Care Team Providers Name Role Phone Any Jackson MD Primary Care Physician Encounter [facility] Date(s): 03/30/22 - 04/29/22 [facility] [address] [place] [address]- Allergies, Adverse Reactions, Alerts No Known Medication Allergies Medications Eliquis 5 mg oral tablet 1 tablet = 5 mg, By Mouth, 2 times a day, TAKE 1 TABLET BY MOUTH TWICE A DAY Start Date: 02/04/22 Status: Orderedmetoprolol 50 mg oral tablet 50 mg, 1, tablet, By Mouth, 2 times a day, # 60 tablet, Refills 1, Tot. Refills 1, Maintenance, 02/05/22 9:59:00 EDT, Route to Pharmacy Electronically, [facility]/pharmacy #[id number], Partial fill upon patient request if the prescription is for a schedule II opio... Start Date: 02/05/22 Status: Orderedomeprazole 20 mg oral delayed release tablet 1 tablet = 20 mg, By Mouth, Daily, # 90 tablet, 0 Refills, Maintenance, 03/05/21 15:58:00 EDT, CR Tablet, Partial fill upon patient request if the prescription is for a schedule II opioid drug. Start Date: 03/05/21 Status: Orderedsimvastatin 20 mg oral tablet 40 mg, 2, tablet, By Mouth, Daily at bedtime, # 30 tablet, Refills 0, Maintenance, 03/05/21 15:58:00EDT, Partial fill upon patient request if the prescription is for a schedule II opioid drug. Start Date: 03/05/21 Status: Ordered Problem List Condition Confirmation Course Effective Dates Status Health Stat us Informant COVID-191 Confirmed 02/05/22 Active Obese class I Confirmed Active 1Problem added by Discern Expert Social History Social History Type Response Smoking Status Former smoker, quit more roly n 30 days ago entered on: 02/04/22 Sex Patient Care team information PersonnelName: Any Jackson MD Address: Address: [address] [place] [id number]
--- OUTSIDE RECORDS SUMMARY | 2022-06-19 22:35 | XMS_ITS | Continuity of Care Document ---
:1950 Author Organization [facility] Address [address] [place] [address]- Care Team Providers Name Role Phone Any Blanton MD Primary Care Physician Encounter [facility] Date(s): 04/14/22 - 05/14/22 [facility] [address] [place] [address]- Allergies, Adverse Reactions, Alerts No Known Medication [...] 02/05/22 9:59:00 EDT, Route to Pharmacy Electronically, [facility]/pharmacy #[id number], Partial fill upon patient request if the [...] Sex Patient Care team information PersonnelName: Any Blanton MD Address: Address: [address] [place] [id number]
--- OUTSIDE RECORDS SUMMARY | 2022-06-19 22:35 | XMS_ITS | Continuity of Care Document ---
:1950 Author Organization [facility] Address [address] [place] [address]- Care Team Providers Name Role Phone Any Jackson MD Primary Care Physician Encounter [facility] Date(s): 02/16/22 - 03/18/22 [facility] [address] [place] [address]- Allergies, Adverse Reactions, Alerts No Known Medication [...] 02/05/22 9:59:00 EDT, Route to Pharmacy Electronically, [facility]/pharmacy #[id number], Partial fill upon patient request if the [...] Date: 03/05/21 Status: Ordered Problem List Condition Effective Dates Status Health Status Informant COVID-19(Confirmed)1 02/05/22 Active Obese class I(Confirmed) Active 1Problem added by Discern Expert Social History Social History Type Response Smoking Status Former smoker, quit more roly n 30 days ago entered on: 02/04/22 Sex Care Team PersonnelName: Any Jackson MD Address: [address] [place] [id number]
--- OUTSIDE RECORDS SUMMARY | 2022-06-19 22:35 | XMS_ITS | Continuity of Care Document ---
:1950 Author Organization [facility] Address [address] [place] [address]- Care Team Providers Name Role Phone Any Jackson MD Primary Care Physician [place] [facility] [place] - 04/27/22 [facility] [address] [place] [address]- [place] Allergies, Adverse Reactions, Alerts No Known Medication [...] 02/05/22 9:59:00 EDT, Route to Pharmacy Electronically, [facility]/pharmacy #[id number], Partial fill upon patient request if the [...] information PersonnelName: Any Jackson MD Address: Address: [address] [place] [id number]
--- OUTSIDE RECORDS SUMMARY | 2022-06-19 22:35 | XMS_ITS | Continuity of Care Document ---
:1950 Author Organization [facility] Address [address] [place] [address]- Care Team Providers Name Role Phone Any Blanton MD Primary Care Physician Encounter [facility] [place] Date(s): 05/01/22 - 05/01/[address] [id number] Discharge Disposition: A-D/C Home Attending Physician: Graham Brownlee MD Admitting Physician: Graham Brownlee MD Referring Physician: Graham Brownlee MD Allergies, Adverse Reactions, Alerts No Known Medication [...] 02/05/22 9:59:00 EDT, Route to Pharmacy Electronically, [facility]/pharmacy #[id number], Partial fill upon patient request if the [...] Confirmed Active 1Problem added by Discern Expert Vital Signs Most recent to oldest 1 2 3 [Reference Range]: Height 168 cm 168 cm 168 cm (05/01/22 3:46 PM) (05/01/22 1:37 PM) (05/01/22 6:43 AM) Weight 93 kg 93 kg (05/01/22 6:43 AM) (05/01/22 6:36 AM) Oxygen Saturation [94-100 %] 94 % 96 % 93 % (05/01/22 3:46 PM) (05/01/22 1:37 PM) *L* (05/01/22 6:20 A M) Pulse Rate [55-90 bpm] 80 bpm 69 bpm 64 bpm (05/01/22 3:46 PM) (05/01/22 1:37 PM) (05/01/22 6:20 AM) Blood Pressure [90-138/55-84 127/72 mm Hg 129/64 mm Hg 140 /80 mm Hg mm Hg] (05/01/22 3:46 PM) (05/01/22 1:37 PM) *H* (05/01/22 6:20 A M) Respiratory Rate [16-30 18 br/min 18 br/min 18 br/mi n br/min] (05/01/22 3:46 PM) (05/01/22 1:37 PM) (05/01/22 6:20 AM) Temperature [96.8-100.4 97.7 DegF 97.2 DegF 98.4 Deg F DegF] (05/01/22 3:46 PM) (05/01/22 1:37 PM) (05/01/22 6:20 AM) Mode of Delivery (Oxygen) Room air Room air Room a ir (05/01/22 3:46 PM) (05/01/22 1:37 PM) (05/01/22 6:20 AM) Blood pressure sites Arm, left Arm, left Arm, left (05/01/22 3:46 PM) (05/01/22 1:37 PM) (05/01/22 6:20 AM) Temperature Route Oral Oral Oral (05/01/22 3:46 PM) (05/01/22 1:37 PM) (05/01/22 6:20 AM) Dry Weight 93 kg (05/01/22 6:36 AM) Social History Social History Type Response Smoking Status Former smoker, quit more roly n 30 days ago entered on: 02/04/22 Sex Patient Care team information PersonnelName: Any Blanton MD Address: Address: [address] [place] [address]
--- OUTSIDE RECORDS SUMMARY | 2022-06-19 22:35 | XMS_ITS | Continuity of Care Document ---
:1950 Author Organization [facility] Address [address] [place] [address]- Care Team Providers Name Role Phone Any Jackson MD Primary Care Physician [place] [facility] [place] 03[place] 04/30/22 [facility] [address] [place] [address]- Referring Physician: Bette Soliz Allergies, Adverse Reactions, Alerts No Known Medication [...] 02/05/22 9:59:00 EDT, Route to Pharmacy Electronically, [facility]/pharmacy #[id number], Partial fill upon patient request if the [...] information PersonnelName: Any Jackson MD Address: Address: [address] [place] [id number]
--- OUTSIDE RECORDS SUMMARY | 2022-06-19 22:35 | XMS_ITS ---
:1950 Author Organization [facility] Address [address] [place] [address] Care Team Providers Name Role Phone MARIBEL POWELL Unavailable Unavailable PROBLEMS Type Condition ICD9-CM Code XGI11-GR Code Onset Condition SNO MED Code Dates Status Problem Anticoagulant Z79.01 Active 383210 003 long-term use Problem Hallux rigidus of M20.21 Active 66 73079 right foot ALLERGIES No Known Allergies ENCOUNTERS Encounter Location Date Diagnosis [facility] [address] [facility] [address] 15 Mar, 2022 Velez llux rigidus of right [place], [place] foot M20.21 ; Pain in joint [address] of right foot M2 5.571 and Anticoagulant lo ng-term use Z79.01 [facility] [address] [facility] [address] 08 Mar, 2022 [place] [address] [facility] [address] [facility] [address] Jan, Velez llux rigidus of right [place], [place] foot M20.21 ; Pain in joint [address] of right foot M2 5.571 and Anticoagulant lo ng-term use Z79.01 [facility] [address] [facility] [address] Dec, Velez llux rigidus of right [place], [place] foot M20.21 ; Pain in joint [address] of right foot M2 5.571 and Anticoagulant lo ng-term use Z79.01 [facility] [address] [facility] [address] 09 Dec, 2021 Velez llux rigidus of right [place], [place] foot M20.21 ; Pain in joint [address] of right foot M2 5.571 and Anticoagulant lo ng-term use Z79.01 [facility] [address] Dec, [place] [address] [facility] [address] [facility] [place] [address] Dec, [facility] [address] [facility] [address] [facility] [address] Dec, Velez llux rigidus of right [place] foot M20.21 ; Pain in joint [address] of right foot M2 5.571 and Anticoagulant lo ng-term use Z79.01 [facility] [address] [facility] [place] [address] November, [place] [address] [facility] [address] [facility] 102 Oct, Velez llux rigidus of right [place] foot M20.21 ; Pain in joint [address] of right foot M2 5.571 and Anticoagulant lo ng-term use Z79.01 IMMUNIZATIONS No Known Immunizations SOCIAL HISTORY Never Assessed REASON FOR REFERRAL FUNCTIONAL STATUS PLAN OF CARE Activity Details Follow Up prn Reason: Pending Test X ray : Foot, right 3v Pending Test X ray : Foot, right 3v Pending Test X ray : Foot, right 3v Pending Test X ray : Foot, right 3v VITAL SIGNS Weight 208.4 lbs 2022-03-30 Weight 206.4 lbs 2022-01-18 Height 5ft 5in in 2022-03-30 Height 5ft 5in in 2022-01-18 Height 5ft 5in in 2022 Height 5ft 5in in 2021-12-22 Height 5ft 5in in 2021-11-11 BMI 34.68 kg/m2 2022-03-30 BMI 34.34 kg/m2 2022-01-18 Heart Rate 62 /min 2022-03-30 Heart Rate 78 /min 2022-01-18 Heart Rate 75 /min 2022 Heart Rate 76 /min 2021-12-22 Heart Rate 67 /min 2021-12-14 Heart Rate 72 /min 2021-11-11 Temperature 97.3 degrees Fahrenheit 2022-03-30 Temperature 98.1 degrees Fahrenheit 2022-01-18 Temperature 97.4 degrees Fahrenheit 2022 Temperature 97.5 degrees Fahrenheit 2021-12-22 Temperature 98.1 degrees Fahrenheit 2021-12-14 Temperature 98.0 degrees Fahrenheit 2021-11-11 Respiratory Rate 16 /min 2022-03-30 Respiratory Rate 16 /min 2022-01-18 Respiratory Rate 16 /min 2022 Respiratory Rate 16 /min 2021-12-22 Respiratory Rate 18 /min 2021-12-14 Respiratory Rate 16 /min 2021-11-11 Blood pressure systolic 120 mm Hg 2022-03-30 Blood pressure diastolic 84 mm Hg 2022-03-30 MEDICATIONS Medication Instructions Dosage Frequency Start End Duration Statu s Date oxyCODONE HCl 5 Orally every 4 1 tablet Dec, 5 days Not-Takin MG hours PRN pain as needed 2021 g Eliquis Active Acetaminophen 500 Orally every 4 1 tablet 4h Dec, 30 day s Not-Takin MG hrs as needed 2021 g Omeprazole 20 MG Orally Once a 1 capsule 24h Active day 30 minutes before morning meal Metoprolol Orally Twice a 1 tablet 12h Activ e Tartrate 50 MG day with food hydrOXYzine HCl Orally every 8 1 tablet Dec, 10 days Not-Takin 25 MG hrs PRN as needed 2021 g itching/nausea Simvastatin 40 MG Orally Once a 1 tablet 24h Active day in the evening PROCEDURES Procedure Date Ordered Result Body Site X-RAY EXAM OF FOOT 3 Views November 11, 2021 X-RAY EXAM OF FOOT 3 Views Mar 30, 2022 X-RAY EXAM OF FOOT 3 Views January 18, 2022 REPAIR HALLUX RIGIDUS December 20, 2021 X-RAY EXAM OF FOOT 3 Views 2022 REPAIR HALLUX RIGIDUS December 20, 2021 RESULTS Name Result Date Reference Range BASIC METABOLIC PANEL 2021-12-13 X GLUCOSE BUN CREATININE SODIUM POTASSIUM CHLORIDE BICARBONATE ANION GAP CALCIUM EST GFR NON EST GFR CBC (COMPLETE BLOOD COUNT) 2021-12-13 WBC RBC MCV MCH MCHC MPV RDW-SD ABS. NRBC AUTOMATED NRBC HGB HCT PLT Electrocardiogram (EKG) 2021-12-13 REASON FOR VISIT Post-op- needs xrays, Post-op- needs xrays, Extension, 4 wk post-op, needs xrays, 2 wk post-op, suture removal and xrays, 2 day post-op, Surgery at 7:30.....Right 1st metatarsophalangeal joint cheilectomy, post operative medications, pre surgical planning., Medication question, Referred by Dr. Promise Watt for Rt foot pain Insurance Providers [facility] Health Member Patient Patient Patient Patient Patient Subscriber Subscriber Subscriber Group Insurance Plan Plan Plan Plan ID Relationship Address Phone Name Date of ID Name Date of No Type Insurance Insurance Insurance Coverage to Subscriber Address Phone Name Dates [place] [address] [place] self [place] [id number] [facility] [employer] [facility] [place] [address] Medicare [phone] Medicare self [place] [id number] [facility] [place] [phone]
--- OUTSIDE RECORDS SUMMARY | 2022-06-19 22:35 | XMS_ITS | Continuity of Care Document ---
:1950 Author Organization [facility] Address [address] [place] [address]- Care Team Providers Name Role Phone Not on Staff, PCP Primary Care Physician Unavailable Encounter [facility] [place] Date(s): 03/04/21 - 03/05/21 [facility] [address] [place] [id number] Encounter Diagnosis SVT (supraventricular tachycardia) (Final) - 03/05/21 Discharge Disposition: A-D/C Home Attending Physician: Jose Ibrahim MD Admitting Physician: Matt CUI, Bob Referring Physician: Any Jackson MD Allergies, Adverse Reactions, Alerts No Known Medication Allergies Medications meloxicam 15 mg oral tablet 1 tablet = 15 mg, By Mouth, Daily, # 30 tablet, 0 Refills, Maintenance, 03/05/21 15:59:00 EDT, Tablet, Partial fill upon patient request if the prescription is for a schedule II opioid drug. Start Date: 03/05/21 Status: Orderedmetoprolol 50 mg oral tablet 50 mg, 1, tablet, By Mouth, 2 times a day, # 60 tablet, Refills 0, Maintenance, 03/05/21 15:58:00 EDT, Partial fill upon patient request if the prescription is for a schedule II opioid drug. Start Date: 03/05/21 Status: Orderedomeprazole 20 mg oral delayed release tablet 1 tablet = 20 mg, By Mouth, Daily, # 90 tablet, 0 Refills, Maintenance, 03/05/21 15:58:00 EDT, CR Tablet, Partial fill upon patient request if the prescription is for a schedule II opioid drug. Start Date: 03/05/21 Status: Orderedsimvastatin 20 mg oral tablet 20 mg, 1, tablet, By Mouth, Daily at bedtime, # 30 tablet, Refills 0, Maintenance, 03/05/21 15:58:00EDT, Partial fill upon patient request if the prescription is for a schedule II opioid drug. Start Date: 03/05/21 Status: Ordered Results Radiology Reports Exam Date Time Procedure Performing Provider Status 03/04/21 11:18 PM Chest Portable Maryam Juan; Birgit (Verified) Notes:(Chest Portable) Reason For Exam: Shortness of BreathRESULT: Chest Portable Chest Portable Hx of Present Illness: SVT; Reason: Shortness of Breath; Clinical Question(s): CHF COMPARISON: None. FINDINGS: LINES AND TUBES: None. LUNGS AND PLEURA: Clear lungs. Normal pulmonary vascularity. No pleural effusion. No pneumothorax. HEART, MEDIASTINUM AND NATHALIE: Heart is normal in size. Normal upper mediastinal and hilar contour. BONES AND SOFT TISSUES: No acute abnormality. IMPRESSION: No acute abnormality. WSN: [id number] Ordering Physician: Amaury Rosa Dictated By: Jet Díaz MD Dictated Date/Time: 03/04/21 11:25 p Reviewed By: Jet Díaz MD Signed By: Jet Díaz MD Signed Date/Time: 03/04/21 11:25 pm Transcribed By: HUDSON Transcribed Date/Time: 03/04/21 11:24 pm Vital Signs Most recent to oldest 1 2 3 [Reference Range]: Oxygen Saturation [94-100 %] 96 % 99 % 98 % (03/05/21 4:00 PM) (03/05/21 11:51 AM) (03/05/21 9: 01 AM) Pulse Rate [55-90 bpm] 75 bpm 73 bpm 73 bpm (03/05/21 4:00 PM) (03/05/21 11:51 AM) (03/05/21 9: 01 AM) Blood Pressure [90-138/55-84 133/82 mm Hg 131/80 mm Hg 123 /76 mm Hg mm Hg] (03/05/21 4:00 PM) (03/05/21 11:51 AM) (03/05/21 9: 01 AM) Respiratory Rate [16-30 18 br/min 18 br/min 17 br/mi n br/min] (03/05/21 5:46 PM) (03/05/21 4:00 PM) (03/05/21 11: 51 AM) Temperature [96.8-100.4 DegF] 97.6 DegF 97.7 DegF 97 .6 DegF (03/05/21 4:00 PM) (03/05/21 11:51 AM) (03/05/21 9: 01 AM) Liters per Minute 2 L/min 2 L/min 2 L/min (03/05/21 5:35 AM) (03/05/21 3:30 AM) (03/05/21 1:0 7 AM) Mode of Delivery (Oxygen) Room air Room air Room a ir (03/05/21 4:00 PM) (03/05/21 11:51 AM) (03/05/21 9: 01 AM) Blood pressure sites Arm, right Arm, right (03/05/21 4:00 PM) (03/05/21 11:51 AM) Temperature Route Oral Oral Oral (03/05/21 4:00 PM) (03/05/21 11:51 AM) (03/05/21 9: 01 AM)
--- OUTSIDE RECORDS SUMMARY | 2022-06-19 22:35 | XMS_ITS | Continuity of Care Document ---
:1950 Author Organization [facility] Address [address] [place] [address]- Care Team Providers Name Role Phone Any Jackson MD Primary Care Physician [place] [facility] [place]): [place] 02/05/[address] [id number]- Encounter Diagnosis COVID-19 (Final) - 02/05/22 Atrial fibrillation with RVR (Final) - 02/05/22 Discharge Disposition: A-D/C Home Attending Physician: Casey Covington MD Admitting Physician: Kevin Villaseñor MD Referring Physician: Not on Staff, Referring MD Allergies, Adverse Reactions, Alerts No Known Medication Allergies Medications Eliquis 5 mg oral tablet 1 tablet = 5 mg, By Mouth, 2 times a day, TAKE 1 TABLET BY MOUTH TWICE A DAY Start Date: 02/04/22 Status: Orderedmetoprolol 50 mg oral tablet 50 mg, Tablet, By Mouth, 02/05/22 9:00:00 EDT Start Date: 02/05/22 Stop Date: 02/05/22 Status: Completedmetoprolol 50 mg oral tablet 50 mg, 1, tablet, By Mouth, 2 times a day, # 60 tablet, Refills 1, Tot. Refills 1, Maintenance, 02/05/22 9:59:00 EDT, Route to Pharmacy Electronically, [facility]/pharmacy #[id number], Partial fill upon patient request if the [...] I(Confirmed) Active 1Problem added by Discern Expert Results Radiology Reports Exam Date Time Procedure Performing Provider Status 02/04/22 8:02 PM Chest Portable Promise Metzger; Birgit (Verified) Notes:(Chest Portable) Reason For Exam: Shortness of BreathRESULT: Chest Portable Chest Portable Reason: Shortness of Breath; Clinical Question(s): CHF COMPARISON: 0 2020, 03/30/2017, 07/23/2010. FINDINGS: LINES AND TUBES: None. LUNGS AND PLEURA: Right apical scarring. Minimal bibasilar atelectasis. Otherwise, clear lungs. Normal pulmonary vascularity. No pleural effusion. No pneumothorax. HEART, MEDIASTINUM AND NATHALIE: Heart is normal in size. Aorta is tortuous and partially calcified. BONES AND SOFT TISSUES: No acute abnormality. IMPRESSION: No acute abnormality. I have personally reviewed the images and I agree with this report. WSN: [id number] Ordering Physician: Lorraine Vivas Dictated By: Angel[Radiology] Estelle CUI Dictated Date/Time: 02/04/22 8:17 pm Reviewed By: Jet Díaz MD Signed By: Jet Díaz MD Signed Date/Time: 02/04/22 8:22 pm Transcribed By: HUDSON Transcribed Date/Time: 02/04/22 8:14 pm Vital Signs Most recent to oldest 1 2 3 [Reference Range]: Height 168 cm 168 cm 168 cm (02/05/22 7:02 AM) (02/05/22 12:22 AM) (02/04/22 9: 44 PM) Weight 90 kg 90 kg 90 kg (02/05/22 7:02 AM) (02/05/22 12:22 AM) (02/04/22 9: 44 PM) Oxygen Saturation [94-100 %] 96 % 96 % 98 % (02/05/22 11:00 AM) (02/05/22 9:32 AM) (02/05/22 7: 02 AM) Pulse Rate [55-90 bpm] 78 bpm 80 bpm 77 bpm (02/05/22 11:00 AM) (02/05/22 9:35 AM) (02/05/22 9: 32 AM) Body Mass Index [18.5-24.99] 31.89 31.89 31. 89 *>HHI* *>HHI* *>HHI* (02/05/22 7:02 AM) (02/05/22 12:22 AM) (02/04/22 9: 44 PM) Blood Pressure [90-138/55-84 127/77 mm Hg 121/87 mm Hg 121 /87 mm Hg mm Hg] (02/05/22 11:00 AM) (02/05/22 9:35 AM) (02/05/22 9: 32 AM) Respiratory Rate [16-30 16 br/min 18 br/min 18 br/mi n br/min] (02/05/22 11:00 AM) (02/05/22 9:32 AM) (02/05/22 7: 02 AM) Temperature [96.8-100.4 DegF] 97.6 DegF 98.0 DegF (02/04/22 9:44 PM) (02/04/22 3:19 PM) Mode of Delivery (Oxygen) Room air Room air Room a ir (02/05/22 11:00 AM) (02/05/22 9:32 AM) (02/05/22 7: 02 AM) Blood pressure sites Arm, right Arm, right Arm, right (02/05/22 7:02 AM) (02/05/22 5:00 AM) (02/05/22 2:5 2 AM) Temperature Route Oral Oral (02/04/22 9:44 PM) (02/04/22 3:19 PM) Dry Weight 90 kg 90 kg 90 kg (02/05/22 7:02 AM) (02/05/22 12:22 AM) (02/04/22 9: 44 PM) Social History Social History Type Response Smoking Status Former smoker, quit more roly n 30 days ago entered on: 02/04/22 Sex
--- OUTSIDE RECORDS SUMMARY | 2022-06-19 22:35 | XMS_ITS | Continuity of Care Document ---
:1950 Author Organization [facility] Address [address] [place] [phone]- Care Team Providers Name Role Phone Any Jackson MD Primary Care Physician Encounter [facility] [place] Date(s): 03/23/22 - 04/22/22 [facility] [address] [place] [id number]- Attending Physician: Madison Davey Admitting Physician: Madison Davey Referring Physician: Madison Davey Allergies, Adverse Reactions, Alerts No Known Medication [...] 9:59:00 EDT, Route to Pharmacy Electronically, [facility]/pharmacy #[id number], Partial fill upon patient request if the [...] information PersonnelName: Any Jackson MD Address: Address: [address] [place] [id number]
--- OUTSIDE RECORDS SUMMARY | 2022-06-19 22:35 | XMS_ITS | Continuity of Care Document ---
:1950 Author Organization [facility] Address [address] [place] [phone]- Care Team Providers Name Role Phone Any Jackson MD Primary Care Physician [place] [facility] [place] 03[place]19/22 [facility] [address] [place] [id number]- Allergies, Adverse Reactions, Alerts No Known Medication [...] 02/05/22 9:59:00 EDT, Route to Pharmacy Electronically, [facility]/pharmacy #[id number], Partial fill upon patient request if the [...] Care Team PersonnelName: Any Jackson MD Address: [address] [place] [id number]
--- NOTE | 2022-06-19 22:36 | PHA.MEDREC ---
med rec complete, no issues Pharmacy Consult ? Medication Reconciliation Pharmacy has completed the medication reconciliation.
--- OUTSIDE RECORDS SUMMARY | 2022-06-19 22:36 | XMS_ITS ---
:1950 Author Organization Department [facility] rs Address [address] [place] [id number] Support Name Relationship Address Phone BRIDGER ARNOLD Unavailable [address] [phone] [place] GODINE[place] [id number] BRIDGER ARNOLD Unavailable Unavailable Insurance Providers: All historical and current Section Date Range: From patient's date of to the date document was created.This section includes the names of all active insurance providers for the patient. Insurance Type of Plan Start of End of Group Member Insurance Policy P atient's Provider Coverage Name Policy Policy Number ID Provider's Parekh's Relationship Coverage Coverage Telephone Name to Policy Number Parekh UNITED MEDICARE MCR Jul 16 [id number] [phone] [employer] (WNR) [id number] [facility] (WNR) Selected Encounter This section includes the information on record at NE for the Encounter. Date/Time Encounter Type Encounter Reason Provider Source Description Sep 15, 2021 Outpatient GENERAL INTERNAL ICD-10-CM Z02.89 ESTEFANIPRAVEEN MENDEZ 03:00 PM Encounter MEDICINE Encounter for other ,CONSUELO administrative examinations with Provider Comments: Encounter for other Administrative Examinations IHE Encounter Template Text not used by NE Assessments - Encounter Diagnoses This section includes the primary and secondary diagnoses documented for the Encounter. Date/Time Primary/Secondary Diagnosis Name Provider Source Diagnosis Sep 15, 2021 PRIMARY Encounter for other ESTEFANICHANDRIKA NE ROSANAR L [facility] 05:31 PM administrative ,CONSUELO GOMEZCHLEXIE CS examinations Social History: Smoking Status (Most current) and Tobacco Use (All prior to encounter date) This section includes the most current, and the historical, smoking and tobacco-related health factors from the NE facility where the Encounter took place.Current Smoking Status This section includes the most current smoking, or tobacco-related health factor, from the NE facility where the Encounter took place. Date/Time Current Smoking Status Comment Facility Apr 12, 2021 11:30 AM [facility]ACCO [facility] Tobacco Use History This section includes a history of the smoking, or tobacco- related health factors, that were collected on or before the date of the Encounter. The data comes from the NE facility where the Encounter took place. Date/Time Smoking Status/Tobacco Use Comment [facility] Apr 12, 2021 11:30 AM VA-TOBACCO QUIT 5 TO < 15 YRS [facility] Mar 19, 2020 09:00 AM VA-TOBACCO FORMER USER [facility] Mar 19, 2020 09:00 AM VA-TOBACCO QUIT 5 TO < 15 YRS NE [facility] December 12, 2018 10:18 AM [facility]AC[facility] December 12, 2018 10:18 AM VA-TOBACCO QUIT 5 TO < 15 YRS [facility] Jan 21, 2018 07:50 AM QUIT TOBACCO USE > 7 [facility] Dec 25, 2016 10:59 AM QUIT TOBACCO USE > 7 YEARS NE [facility] Advance Directives: All historical and current Section Date Range: From patient's date of to the date document was created. This section includes ALL of a patient's completed or amended NE Advance and Rescinded Directives. The entries below indicate that a directive exists for the patient, but an actual copy is not included with this document. The data comes from all NE facilities. Date Advance Directives Provider Source May 23, 2015 ADVANCE DIRECTIVE [facility] PE[facility] Encounter Notes: All associated encounter notes This section contains the clinical notes associated to the Encounter. Date/Time Encounter Note(s) Provider Source Sep 15, 2021 03:00 C & P EXAMINATION NOTE: [facility] LOCAL TITLE: COMPENSATION AND PENSION EXAM [facility] STANDARD TITLE: C & P EXAMINATION NOTE DATE OF NOTE: SEP 15, 2021@15:00 ENTRY DATE: SEP 15, 2021@17:29:59 AUTHOR: RANDY CRUZ EXP COSIGNER: URGENCY: STATUS: COMPLETED Urinary Tract (Including Bladder and Urethra) C onditions (Excluding Male Reproductive System) Disability Benefits Questionnaire Name of Claimant/: GENEVIEVE ARNOLD ([id number]) Is this questionnaire being completed in conjun ction with a VA C&P examination request? [X] Yes [ ] No [ ] In-person examination [X] Records reviewed [ ] Examination via approved video telehealth [ ] Other, please specify in comments box: Comments: * 01/03/2021 [facility]'s Statement: In 2017 I had applied for benefits for my bladd er cancer. First diagnosed on 06-21-2013. Acceptable Clinical Evidence (HARRY) Indicate the method used to obtain medical info rmation to complete this document: [X] Review of available records (without in-per son or video telehealth examination) using the Acceptable Clinical Evid ence (HARRY) process because the existing medical evidence provided sufficient information on which to prepare the questionnaire and such an examination will likely provide no additional relevant evidence. Evidence Review Evidence reviewed (check all that apply): [ ] Not requested [ ] No records were reviewed [ ] VA claims file (hard copy paper C-file) [X] [place] electronic health record [X] VA e-folder [X] Other (please identify other evidence revie wed): Evidence Comments: JLV, VBMS, VISTAIMAGING, CPRS 1. Diagnosis: Note: These are condition(s) for which an evalu ation has been requested on the exam request form (Internal NE) or for w hich the has requested medical evidence be provided for subm ission to NE. 1A. Does the [facility]ington currently have, or have th ey ever been diagnosed with, a urinary tract condition of the bladder or urethra? [X] Yes [ ] No Note: These are the diagnoses determined during this current evaluation of the claimed condition(s) listed above. If th ere is no diagnosis, if the diagnosis is different from a previous diag nosis for this condition, or if there is a diagnosis of a complication du e to the claimed condition, explain your findings and reasons in the remarks section. Date of diagnosis can be the date of the evaluation if the clinician is making the initial diagnosis, or an approximate date d etermined through record review or reported history. 1B. Provide only diagnoses that pertain to urin hayden tract conditions of the bladder or urethra: Diagnosis #1: Urinary Bladder, Urothelial Carci noma Date of diagnosis: 06/23/2013 per first patholog y report; most recent 06/2021 ACTIVE 1C. If there are additional diagnoses that pert ain to urinary tract conditions of the bladder or urethra, list usin g above format: No response provided. 2. Medical History 2A. 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 H has no new symptoms since he was last s een. No frequency, urgency, dysuria or hematuria. No pelvic pain o r discomfort. Completed BCG on 12/31. Cysto shows some prepapillary lesions noted on the floor near the trigone and possibly anterior wall. Prostate no rmal. * 04/12/2021 PRIMARY CARE NOTE: History of surgery multiple cystoscopy - every 3 months ( x urologist- bernardo/ VICKI) Bladder cancer TURB procedures x 5 . Diagnosed in 2012. * 09/25/2019 Private Records: Transurethral resection of bladder tumor * 10/06/2016 Private Records: had TURBT, tolerated procedure well. Pathology showed low grade, transitional cell carcinoma. Recommend cystosco py in three months. I would advise against BCG therapy now as he just completed a second cycle of it a few months ago and he appears not to respond to it. * 09/29/2016 Private Records: Transurethral Resection of Bladder Tumor * 04/27/2016 Private Records: BCG 3. Voiding Dysfunction 3A. Does the have a voiding dysfunction ? [ ] Yes [X] No 3B. Etiology of voiding dysfunction, if known: No Response provided. 3C. Does the voiding dysfunction cause urine le akage? [ ] Yes [ ] No If yes, indicate severity: [ ] Does not require the wearing of absorbent m aterial [ ] Requires absorbent material which must be c hanged less than 2 times per day [ ] Requires absorbent material which must be c hanged 2 to 4 times per day [ ] Requires absorbent material which must be c hanged more than 4 times per day [ ] Other, describe: 3D. Does the voiding dysfunction require the us e of an appliance? [ ] Yes [ ] No 3E. Does the voiding dysfunction cause increase d urinary frequency? [ ] Yes [ ] No If yes, check all that apply: [ ] Daytime voiding interval less than 1 hour [ ] Daytime voiding interval between 1 and 2 ho urs [ ] Daytime voiding interval between 2 and 3 ho urs [ ] Nighttime awakening to void 2 times [ ] Nighttime awakening to void 3 to 4 times [ ] Nighttime awakening to void 5 or more times 3F. Does the voiding dysfunction cause signs or symptoms of obstructed voiding? [ ] Yes [ ] No If yes, check all that apply: [ ] Hesitancy [ ] Slow stream [ ] Weak stream [ ] Decreased force of stream [ ] Urinary retention requiring intermittent ca theterization [ ] Urinary retention requiring continuous cath eterization [ ] Uroflowmetry peak flow rate less than 10 cc /sec [ ] Post void residuals greater than 150 cc [ ] Recurrent urinary tract infections secondar y to obstruction [ ] Stricture disease If selected, indicate frequency of periodic dil atation: [ ] Does not require dilatation [ ] Requires dilatation [ ] 1 to 2 times per year [ ] Every 2 to 3 months [ ] Other, specify: [ ] Other, describe: 4. Urolithiasis 4A. Does the have a history of bladder calculi (cystolithiasis) or urethral calculi (urethrolithiasis)? [ ] Yes [X] No 4B. Indicate location of calculi - check all th at apply: [ ] Urethra [ ] Bladder 4C. Has the Abington had treatment for recurrent stone formation in the bladder or urethra? [ ] Yes [ ] No If yes, indicate treatment - check all that dave ly: [ ] Invasive or non-invasive procedures two glenis es or less per year [ ] Invasive or non-invasive procedures more th an two times per year [ ] Diet therapy [ ] Drug therapy 4D. Does the [facility] have signs or symptoms due to cystolithiasis or urethrolithiasis? [ ] Yes [ ] No If yes, indicate type/severity - check all that apply: Is catheter drainage required? [ ] Yes [ ] No [ ] Infection [ ] Voiding dysfunction [ ] Occasional attacks of colic [ ] Frequent attacks of colic [ ] Impaired kidney function* *For VA purposes, renal dysfunction includes ev idence demonstrating the following for at least 3 cons ecutive months during the past 12 months: glomerular filtratio n rate (GFR) of less than 60 mL/min/1.73m2; or GFR from 60 t o 89 mL/min/1.73m2 and the presence of at least one of the following: recurrent red blood cell (RBC) casts , white blood cell (WBC) casts, granular casts, structural ki dney abnormalities (cystic, obstructive, or glomerul ar), or increased secretion of protein in the urine (pr oteinuria). GFR, estimated GFR (eGFR), and creatinine based approximations of GFR will be accepted for eval uation purposes when determined to be appropriate and calculated by a medical professional. Note: If the medical re cord contains multiple lab tests during this 12 month period, by at least 3 months, and there is no evidence to contradict those findings in the interim period, NE will a ccept that the demonstrated renal dysfunction has persisted fo r at least 3 consecutive months during the past 12 months. [ ] Other 5. Bladder or Urethral Infection 5A. Does the have a history of recurren t, symptomatic bladder or urethral infections? [ ] Yes [X] No If yes, complete 5B and 5C: 5B. Etiology of bladder or urethral infections, if known: No response provided. 5C. If the has had recurrent, symptomat ic urethral or bladder infections, indicate all treatment modalities t hat apply: [ ] No treatment [ ] Suppressive drug therapy If checked, list medications used and indicate dates for courses of treatment over the past 12 months: No response provided. [ ] Lasting 6 months or longer [ ] For less than 6 months [ ] Hospitalization If checked, indicate frequency of hospitalizati ons: [ ] 1 or 2 per year [ ] More than 2 per year [ ] Drainage by stent or nephrostomy tube If checked, indicate dates drainage was perform ed over the past 12 months: No response provided. [ ] Continuous intensive management required. If checked, indicate types of treatment and med ications used over the past 12 months: No response provided. [ ] Recurrent symptomatic infection [ ] Other Describe: 6. Other Bladder or Urethral Conditions 6A. Does the [facility] have any findings, signs, or symptoms attributable to a bladder fistula? [ ] Yes [X] No If yes, describe in Comment box below (6J). 6B. Does the have any findings, signs, or symptoms attributable to diverticulum of the bladder? [ ] Yes [X] No If yes, describe in Comment box below (6J). 6C. Does the [facility] have suprapubic cystotomy? [ ] Yes [X] No If yes, provide name of facility and date of pr ocedure in Comment box below (6J) 6D. Does the [facility] have any findings, signs, or symptoms attributable to a urethral fistula? [ ] Yes [X] No If yes, describe in Comment box below (6J). 6E. Does the have multiple urethroperin eal fistulae? [ ] Yes [X] No If yes, describe in Comment box below (6J). 6F. Does the have a neurogenic or sever katie dysfunctional bladder? [ ] Yes [X] No If yes, describe in Comment box below (6J). 6G. Does the [facility] have a history of bladder injury? [ ] Yes [X] No If yes, describe in Comment box below (6J). 6H. Has the [facility] had other bladder surgery? [ ] Yes [X] No If yes, describe in Comment box below (6J). 6I. Is there any renal dysfunction* due to a co ndition noted in this section? [ ] Yes [X] No If yes, also complete the appropriate questionn navi. *For VA purposes, renal dysfunction includes ev idence demonstrating the following for at least 3 consecutive months during the past 12 months: glomerular filtration rate (GFR) of les s than 60 mL/min/1.73m2; or GFR from 60 to 89 mL/min/1.73 m2 and the presence of at least one of the following: recurrent red bl ood cell (RBC) casts, white blood cell (WBC) casts, granular casts, s tructural kidney abnormalities (cystic, obstructive, or glomerul ar), or increased secretion of protein in the urine (proteinuria) . GFR, estimated GFR (eGFR), and creatinine based approximations of GFR will be accepted for evaluation purposes when determined to be a ppropriate and calculated by a medical professional. Note: If the medical record contains multiple lab tests during this 12 melisa h period, by at least 3 months, and there is no evidence to contradict those findings in the interim period, VA will accept that the demonstrated renal dysfunction has persisted for at least 3 consecutive months during the past 12 months. 6J. Comments (if any, please identify the Scientific Revenue number to which the comment pertains): no additional comments 7. Tumors and Neoplasms 7A. Does the [facility] currently have, or has had , a benign or malignant neoplasm or metastases related to any condition in the Diagnosis Section? [X] Yes [ ] No If yes, complete 7B - 7E: 7B. The neoplasm is: [ ] Benign [X] Malignant - if malignant, select all that apply: [ ] In remission [X] Active [ ] Primary [ ] Secondary (metastatic) If secondary, indicate the primary site if know n: No response provided. 7C. Has the [facility] completed treatment, or is the [facility] currently undergoing treatment for, a benign or malignant neoplasm or metastases? [X] Yes [ ] No; watchful waiting If yes, indicate type of treatment the is currently undergoing or has completed. Check all that dave ly: [ ] Treatment completed [X] Surgery If selected, specify type of surgery: Several Turbts; most recent 06/2021 (SEE HISTOR Y) and date of surgery: 06/2021 is most recent one [ ] Radiation therapy If selected, specify: Date of completion of most recent treatment: No response provided. or anticipated completion date of current treat ment: No response provided. [ ] Antineoplastic chemotherapy If selected, specify: Date of completion of most recent treatment: No response provided. or anticipated completion date of current treat ment: No response provided. [X] Other therapeutic procedure If selected, specify type of procedure: BCG completed:second and final round 2017 Date of completion or anticipated date of compl etion: 2018 [ ] Other therapeutic treatment If selected, specify: Type of treatment: No response provided. Date of completion or anticipated date of compl etion: No response provided. 7D. Does the currently have any residua ls or complications due to the neoplasm (including metastases) or its nadia tment, other than those already documented in the report above? [ ] Yes [X] No If yes, list residuals or complications (brief summary), and also complete the appropriate questionnaire: No response provided. 7E. If there are additional benign or malignant neoplasms or metastases related to any of the diagnoses in the Diagnosi s Section, describe using the above format: n/a 8. Other Pertinent Physical Findings, Complicat ions, Conditions, Signs, Symptoms, and Scars 8A. Does the have any other pertinent p hysical findings, complications, conditions, signs, and/or sympto ms related to any of the conditions listed in the Diagnosis Section? [ ] Yes [X] No If yes, describe - brief summary: No response provided. 8B. Does the [facility] have any scars or other di sfigurement of the skin related to any of the conditions, or to the michael atment of any of the conditions, listed in the Diagnosis Section? [ ] Yes [X] No If yes, also complete the appropriate dermatolo gical questionnaire. 8C. Comments, if any: NO ADDITIONAL COMMENTS 9. Diagnostic Testing Note: If diagnostic test [facility] and reflect the [facility]'s current urinary tract condition, repeat testing is not required. 9A. Has the [facility] had diagnostic testing in c onjunction with this exam? [ ] Yes [X] No If yes, provide significant findings and/or res ults (type of test or procedure, date and results) - brief summary: No response provided. 9B. Are there any other significant diagnostic test findings or results related to the claimed condition(s) and/or diag nosis(es), that were reviewed in conjunction with this examination? 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 * 06/23/2013 low grade urothelial carcinoma, muscularis prop geovanny is present in the specimen, no conclusive evidence of invasio n 10. Functional Impact Note: Provide the impact of only the diagnosed condition(s), without consideration of the impact of other medical co nditions or factors, such as age. 10A. Does the 's condition of the bladde r or urethra impact his or her ability to work? [ ] Yes [X] No If yes, describe the impact of each of the Vete ran's bladder or urethra condition(s), providing one or more exa mples: No response provided. 11. Remarks 11A. Remarks (if any, please identify the secti on to which the remark pertains when appropriate): The 's condition is considered ACTIVE; l ast TURBT 06/2021. /kristen/ CONSUELO CRUZ NURSE PRACTITIONER Signed: 09/15/2021 17:30
--- OUTSIDE RECORDS SUMMARY | 2022-06-19 22:36 | XMS_ITS | Continuity of Care Document ---
:[address] [facility] Care Team Providers Name Role Phone [facility] Unavailable Unavailable Problems Combined list of problems from Department of Defense and Veterans Affairs facilities. It does not include entries that were removed or entered in error. Problem Status Onset Problem Date of Comments Source Date Type Resolution Adult screening Active Condition December 12 [facility] CNTRL status 2018 Entered WSTRN By: EMMANUEL LEON [facility] Comment: 11/2018 - No evidence of abdominal aortic aneurysm. AF - Atrial Active Condition [facility] fibrillation WSTRN DUY Mckeon [facility] Arrhythmia Active Condition Apr 04 [facility] CNTRL 2018 Entered WSTRN By: EMMANUEL LEON [facility] Comment: MED: Metoprolol / taper off flecainide( start 02/2019) Apr 04, 2019 Entered By: EMMANUEL JI Comment: Per pt - hx of left bundle block Bladder cancer Active Condition Dec 25 [facility] C NTRL 2016 Entered WSTRN By: JORGE MONTESINOS Comment: [place] [facility] procedures x 5. Diagnosed in 2012. Does use hearing Active Condition [facility] aid WSTRN DUY Mckeon [facility] Follicular cysts Active Condition [facility] of skin and [place] subcutaneous [place] tissue [facility] Gastroesophageal Active Condition [facility]ke[facility] History of alcohol Active Condition Apr 04 [facility] CN[facility] abuse 2018 Entered WSTRN By: EMMANUEL LEON [facility] Comment: sober for more than 38 yrs History of surgery Active Condition December 12 [facility] 2018 Entered WSTRN By: EMMANUEL LEON [facility] Comment: multiple cystoscopy - every 3 months ( x urologist- bernardo/ VICKI) December 12, 2018 Entered By: EMMANUEL JI Comment: multiple cyst excised - scrotum/ neck - 2018 Apr 04, 2019 Entered By: EMMANUEL JI Comment: 2019- left knee arthroplasty Hyperlipidemia Active Condition [facility] [place] [facility] Posttraumatic Active Condition [facility] CNT [facility] stress disorder [facility] [place] [facility] Sleep apnea Active Condition Jan 21, [facility] L 2017 Entered WSTRN By: EMMANUEL LEON [facility] Comment: PER VISIT 01/21/18 - ANNUAL VISIT (CWM/NO/PACT 8 ) December 12, 2018 Entered By: EMMANUEL JI Comment: CPAP auto PAP mode 5-15 cm - h20 humidified - air lifetime ( DR BLANTON) - non [facility] script Under care of Active Condition December 12, [place] CN TRL multiple providers 2018 Entere d WSTRN By: EMMANUEL LEON [facility] Comment: DR Corrie BLANTON ( [facility]) - visit 12/11/18 Jan 21, 2018 Entered By: EMMANUEL JI Comment: [place] [employer] COORDINATOR WHEN IN [place] ( JUN THRU NOVEMBER ) Apr 30, 2018 Entered By: EMMANUEL JI Comment: NON [place] DERMATOLOGY - December 12, 2018 Entered By: EMMANUEL JI Comment: NON [place] urologist ( [place] ( [facility]- DR Del Valle / [place] - DR Rangel Atrial Inactive Condition 04/04/2019 [facility] fibrillation [place] [facility] Diagnosis: [facility] ICD-10-CM I48.91 W[facility] RN Unspecified atrial [place] fibrillationwith [facility] Provider Comments: AF - Atrial fibrillation (SNOMED CT [id number]) Diagnosis: Active Diagnosis [facility] ICD-10-CM Z02.89 WST RN Encounter for [place] other [facility] administrative examinationswith Provider Comments: Encounter for other Administrative Examinations Diagnosis: Active Diagnosis [facility] ICD-10-CM Z46.1 WSTR N Encounter for [place] fitting and [facility] adjustment of hearing aidwith Provider Comments: Encounter for Fitting and Adjustment of Hearing Aid Diagnosis: Active Diagnosis [place] CNTRL ICD-10-CM H90.3 WSTR N Sensorineural [place] hearing loss, HCS bilateralwith Provider Comments: Sensorineural Hearing Loss, Bilateral Diagnosis: Active Diagnosis [place] CNTR ICD-10-CM L40.8 WSTR N Other [place] psoriasiswith HCS Provider Comments: Other Psoriasis Medications Combined list of outpatient medications from Department of Defense and Veterans Affairs facilities. Medications provided include 1) outpatient medications from the last 15 months, and 2) patient-reported medications. 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 It does not include entries that were removed or entered in error. Substance Category Reaction Severity Reaction Status Date Comments S ource type Reported MULTAQ Propensity Eruption Propensity active [facility] to adverse to adverse 2 WS TRN reactions reactions [place] to drug to drug S HCS (finding) (finding) Immunizations Combined list of available immunizations from the Department of Defense and Veterans Affairs facilities. Immunization Series Date Administered Site Reaction Lot CVX Drug St atus Comments Source Given By Number Code Biochemistry Technician COVID-19 [facility] (PFIZER), 2020 ed CNTR L MRNA, LNP-S, W STRN PF, 30 [place] MCG/0.3 ML SET S DOSE HCS INFLUENZA, complet [facility] UNSPEC[facility]IED 2020 ed [facility] COVID-19 2 complet [facility] (P[facility]), 2020 ed CNTR L MRNA, LNP-S, W STRN PF, 30 [place] MCG/0.3 ML SET S DOSE HCS COVID-19 1 complet [place] ([place] 2020 ed MRNA, LNP-S, PF, 30 MCG/0.3 ML DOSE INFLUENZA, complet Site: [facility] TRIVALENT, 2018 ed Left CNT RL ADJUVANTED Deltoid W [facility]N [place] [facility] INFLUENZA, complet Site: [facility] SEASONAL, 2017 ed Left CNTR L INJECTABLE Deltoid W [facility]N [place] [facility] INFLUENZA, complet [facility] SEASON[facility], 2016 ed [place] CNTRL INJECTABLE WST RN [place] [facility] PNEUMOCOCCAL complet [facility] CONJUGATE PCV 2015 ed Medica l CNTRL 13 Group W[facility]N [place] [facility] PNEUMOCOCCAL complet [facility] POLYSACCHARID 2014 ed CNTRL E PPV23 [facility] [place] [facility] TDAP complet [place] [facility] 2014 ed Medical CN[facility] Group [facility] [place] [facility] Results Combined list of recent chemistry, hematology and other laboratory results from Department of Defense and Veterans Affairs, ranging from 15 months to all on record, depending upon the facility. Order Results Value Reference Date Interpretation Specimen Commen ts Source Name Range PROTEIN/ CREATININE 102.65 04/13 Specimen Typ e: URINE [facility] CREATINI [MASS/VOLU /2021 No comment e ntered. WSTRN NE RATIO ME] IN Ordering Provi rosas: MALACHI RODRIGUEZCHUSE PANEL, URINE Report Released Date/Time: Apr 13, 2022 09:55 AM [facility] URINE Reporting Lab: [facility] [place] [facility] [address] [facility] [address] Performing Lab: [facility] [address] [facility] [address] PROTEIN/ PROTEIN/CR 0.1 <0.2 - 0.2 04/13 Specimen Type: URINE [facility] CREATINI EATININE /2021 No comment ent ered. WSTRN NE RATIO [MASS Ordering Provi rosas: MALACHI RODRIGUEZ [place] PANEL, RATIO] IN Report Releas ed Date/Time: Apr 13, 2022 09:55 AM [facility] URINE URINE Reporting Lab: [facility] [place] [facility] [address] [facility] [address] Performing Lab: [facility] [place] [address] [address] PROTEIN/ PROTEIN 11.1 0.0 - 20.0 04/13 Specimen Typ e: URINE [facility] CREATINI [MASS/VOLU /2021 No comment e ntered. WSTRN NE RATIO ME] IN Ordering Provi rosas: MALACHI RODRIGUEZCHUSE PANEL, URINE Report Released Date/Time: Apr 13, 2022 09:55 AM [facility] URINE Reporting Lab: [facility] [address] [address] Performing Lab: [facility] [address] [address] URINALYS COLOR OF Yellow 04/13 Specimen Type: URINE [facility] IS URINE /2021 No comment enter ed. WSTRN Ordering Provid er: MALACHI RODRIGUEZ Report Released Date/Time: Apr 13, 2022 09:55 AM [facility] Reporting Lab: [facility] [place] [facility] [address] [facility] [address] Performing Lab: [facility] [address] [address] URINALYS APPEARANCE Clear 04/13 Specimen Typ e: URINE [facility] IS OF URINE /2021 No comment ente red. WSTRN Ordering Provid er: MALACHI RODRIGUEZ Report Released Date/Time: Apr 13, 2022 09:55 AM [facility] Reporting Lab: [facility] [place] [facility] [address] [facility] [address] Performing Lab: [facility] [address] [address] URINALYS GLUCOSE Negative 04/13 Specimen Type: URINE [facility] IS [MASS/VOLU /2021 No comment en tered. WSTRN ME] IN Ordering Provid er: RODRIGUEZ,MALACHI MARISSIOMARA JENSEN URINE Report Released Date/Time: Apr 13, 2022 09:55 AM TS [facility] Reporting Lab: [facility] [place] [facility] [address] [facility] [address] Performing Lab: [facility] [place] [facility] [address] [facility] [address] URINALYS KETONES Negative 04/13 Specimen Type: URINE [facility] IS [MASS/VOLU No comment en tered. WSTRN ME] IN Ordering Provid er: RODRIGUEZ,MALACHI HAZELSIOMARA GOMEZCHEBONIE URINE BY Report Release d Date/Time: Apr 13, 2022 09:55 AM TS [facility] TEST STRIP Reporting La b: [facility] [place] [address] [address] Performing Lab: [facility] [place] [address] [address] URINALYS ERYTHROCYT Negative 04/13 Specimen Ty pe: URINE [facility] IS No comment enter ed. WSTRN [PRESENCE] Ordering Pro vider: RODRIGUEZ,RAIMKAITLYNNRichmond JENSEN IN URINE Report Release d Date/Time: Apr 13, 2022 09:55 AM TS [facility] SEDIMENT Reporting Lab: [facility] [place] [facility] BY LIGHT [address] [place] [address] MICROSCOPY Performing L ab: [facility] [place] [facility] [address] [facility] [address] URINALYS PROTEIN Negative 04/13 Specimen Type: URINE [facility] IS [MASS/VOLU /2021 No comment en tered. WSTRN ME] IN Ordering Provid er: RODRIGUEZ,MALACHI MARIS GOMEZCHEBONIE URINE BY Report Release d Date/Time: Apr 13, 2022 09:55 AM TS [facility] TEST STRIP Reporting La b: [facility] [place] [address] [address] Performing Lab: [facility] [place] [address] [address] URINALYS NITRITE Negative 04/13 Specimen Type: URINE [facility] IS [PRESENCE] /2021 No comment en tered. WSTRN IN URINE Ordering Provi rosas: MALACHI RODRIGUEZCHEBONIE Report Released Date/Time: Apr 13, 2022 09:55 AM TS [facility] Reporting Lab: [facility] [place] [facility] [address] [facility] [address] Performing Lab: [facility] [place] [address] [address] URINALYS BILIRUBIN. Negative 04/13 Specimen Ty pe: URINE [facility] IS TOTAL No comment enter ed. WSTRN [PRESENCE] Ordering Pro vider: MALACHI RODRIGUEZCHEBONIE IN URINE Report Release d Date/Time: Apr 13, 2022 09:55 AM TS [facility] Reporting Lab: [facility] [place] [address] [address] Performing Lab: [facility] [place] [address] [address] URINALYS SPECIFIC 1.017 1.016 - 04/13 Specimen Type: URINE [facility] IS GRAVITY OF 1.022 /2021 No comment en tered. WSTRN URINE BY Ordering Provi rosas: MALACHI RODRIGUEZ REFRACTOME Report Relea sed Date/Time: Apr 13, 2022 09:55 AM [facility] TRY Reporting Lab: [facility] [place] [address] [address] Performing Lab: [facility] [place] [address] [address] URINALYS PH OF 6.0 5.0 - 9.0 04/13 Specimen Type : URINE [facility] IS URINE BY /2021 No comment ente red. WSTRN TEST STRIP Ordering Pro vider: MALACHI RODRIGUEZ Report Released Date/Time: Apr 13, 2022 09:55 AM TS [facility] Reporting Lab: [facility] [place] [address] [address] Performing Lab: [facility] [place] [facility] [address] [facility] [address] URINALYS UROBILINOG 2.0 <2.0 - 2.0 04/13 Specimen Type: URINE [facility] IS EN No comment enter ed. WSTRN [MASS/VOLU Ordering Pro vider: MALACHI RODRIGUEZ ME] IN Report Released Date/Time: Apr 13, 2022 09:55 AM TS [facility] URINE BY Reporting Lab: [facility] [place] [facility] TEST STRIP [address] [facility] [address] Performing Lab: [facility] [place] [facility] [address] [facility] [address] URINALYS LEUKOCYTE Negative 04/13 Specimen Typ e: URINE [facility] IS ESTERASE No comment ente red. WSTRN [PRESENCE] Ordering Pro vider: MALACHI RODRIGUEZ IN URINE Report Release d Date/Time: Apr 13, 2022 09:55 AM TS [facility] BY TEST Reporting Lab: [facility] [place] [facility] STRIP [address] [facility] [address] Performing Lab: [facility] [place] [facility] [address] [facility] [address] BASIC UREA 11 7 - 25 04/13 Specimen Type: S CHIOMA [facility] METABOLI NITROGEN No comment ent ered. WSTRN C PANEL [MASS/VOLU Ordering Pro vider: MALACHI RODRIGUEZ (fasting ME] IN Report Release d Date/Time: Apr 12, 2022 09:17 AM TS [facility] ) SERUM OR Reporting Lab: [facility] [place] [facility] PLASMA [address] [facility] [address] Performing Lab: [facility] [place] [facility] [address] [facility] [address] BASIC GLUCOSE 97 65 - 100 04/13 Specimen Type: SERUM [facility] METABOLI [MASS/VOLU /2021 No comment e ntered. WSTRN C PANEL ME] IN Ordering Provid er: RODRIGUEZ,RAIMONDA MARIS [place] (fasting SERUM OR Report Releas ed Date/Time: Apr 12, 2022 09:17 AM TS [facility] ) PLASMA Reporting Lab: [facility] [address] [facility] [address] Performing Lab: [facility] CN[facility] TRN [facility] [address] [facility] [address] BASIC SODIUM 139 135 - 145 04/13 Specimen Type: SERUM [facility] METABOLI [MOLES/VOL /2021 No comment e ntered. WSTRN C PANEL UME] IN Ordering Provid er: MALACHI RODRIGUEZ (fasting SERUM OR Report Releas ed Date/Time: Apr 12, 2022 09:17 AM [facility] ) PLASMA Reporting Lab: [facility] [address] [facility] [address] Performing Lab: [facility] [address] [address] BASIC POTASSIUM 4.1 3.5 - 5.0 04/13 Specimen Typ e: SERUM [facility] METABOLI [MOLES/VOL /2021 No comment e ntered. WSTRN C PANEL UME] IN Ordering Provid er: MALACHI RODRIGUEZ (fasting SERUM OR Report Releas ed Date/Time: Apr 12, 2022 09:17 AM [facility] ) PLASMA Reporting Lab: [facility] [address] [facility] [address] Performing Lab: [facility] [address] BASIC CHLORIDE 106 100 - 110 04/13 Specimen Type : SERUM [facility] METABOLI [MOLES/VOL No comment e ntered. WSTRN C PANEL UME] IN Ordering Provid er: MALACHI RODRIGUEZ (fasting SERUM OR Report Releas ed Date/Time: Apr 12, 2022 09:17 AM [facility] ) PLASMA Reporting Lab: [facility] [address] [facility] [address] Performing Lab: [facility] TRN [facility] [address] BASIC CARBON 24 20 - 30 04/13 Specimen Type: S CHIOMA [facility] METABOLI DIOXIDE, /2021 No comment ent ered. WSTRN C PANEL TOTAL Ordering Provid er: MALACHI RODRIGUEZ (fasting [MOLES/VOL Report Rele ased Date/Time: Apr 12, 2022 09:17 AM [facility] ) UME] IN Reporting Lab: [facility] [place] [facility] SERUM OR [address] [facility] [address] PLASMA Performing Lab: [facility] [place] [facility] [address] [facility] [address] BASIC CREATININE 0.83 0.50 - 04/13 Specimen Type : SERUM [facility] METABOLI [MASS/VOLU 1.40 No comment e ntered. WSTRN C PANEL ME] IN Ordering Provid er: MALACHI RODRIGUEZ (fasting SERUM OR Report Releas ed Date/Time: Apr 12, 2022 09:17 AM [facility] ) PLASMA Reporting Lab: [facility] [place] [facility] [address] [facility] [address] Performing Lab: [facility] [place] [facility] [address] [facility] [address] BASIC GLOMERULAR >90 60 04/13 Specimen Type : SERUM [facility] METABOLI FILTRATION /2021 No comment e ntered. WSTRN C PANEL RATE/1.73 Ordering Prov ider: MALACHI RODRIGUEZ (fasting SQ Report Release d Date/Time: Apr 12, 2022 09:17 AM [facility] ) ARY Reporting La b: [facility] [place] [facility] D [VOLUME [address] [facility] [address] RATE/AREA] Performing L ab: [facility] [place] [facility] IN SERUM, [address] [facility] [address] PLASMA OR BLOOD BY CREATININE -BASED FORMULA (CKD-EPI) CBC AND LEUKOCYTES 5.83 4.50 - 04/13 Specimen Type : BLOOD [facility] DIFF [#/VOLUME] 11.00 No comment en tered. WSTRN (AUTO) IN BLOOD Ordering Provi rosas: MALACHI RODRIGUEZ BY Report Released Date/Time: Apr 12, 2022 09:17 AM TS [facility] AUTOMATED Reporting Lab : [facility] [place] [facility] COUNT [address] [facility] [address] Performing Lab: [facility] [place] [facility] [address] [facility] [address] CBC AND ERYTHROCYT 4.91 4.23 - 04/13 Specimen Type : BLOOD [facility] DIFF ES 5.66 /2021 No comment enter ed. WSTRN (AUTO) [#/VOLUME] Ordering Pro vider: MALACHI RODRIGUEZ IN BLOOD Report Release d Date/Time: Apr 12, 2022 09:17 AM TS [facility] BY Reporting Lab: [facility] [place] [facility] AUTOMATED [address] [facility] [address] COUNT Performing Lab: [facility] [place] [facility] [address] [facility] [address] CBC AND HEMOGLOBIN 14.7 12.8 - 17 04/13 Specimen Ty pe: BLOOD [facility] DIFF [MASS/VOLU /2021 No comment en tered. WSTRN (AUTO) ME] IN Ordering Provid er: MALACHI RODRIGUEZ BLOOD Report Released Date/Time: Apr 12, 2022 09:17 AM TS [facility] Reporting Lab: [facility] [place] [facility] [address] [facility] [address] Performing Lab: [facility] [place] [facility] [address] [facility] [address] CBC AND HEMATOCRIT 42.5 39.2 - 04/13 Specimen Type : BLOOD [facility] DIFF [VOLUME 50.4 /2021 No comment enter ed. WSTRN (AUTO) FRACTION] Ordering Prov ider: MALACHI RODRIGUEZ OF BLOOD Report Release d Date/Time: Apr 12, 2022 09:17 AM [facility] BY Reporting Lab: [facility] [place] [facility] AUTOMATED [address] [facility] [address] COUNT Performing Lab: [facility] [place] [facility] [address] [facility] [address] CBC AND MCV 86.6 82 - 99 04/13 Specimen Type: B LOOD [facility] DIFF [ENTITIC /2021 No comment ente red. WSTRN (AUTO) VOLUME] BY Ordering Pro vider: MALACHI RODRIGUEZ AUTOMATED Report Releas ed Date/Time: Apr 12, 2022 09:17 AM TS [facility] COUNT Reporting Lab: [facility] [place] [facility] [address] [facility] [address] Performing Lab: [facility] [place] [facility] [address] [facility] [address] CBC AND MCHC 34.6 30.8 - 04/13 Specimen Type: B LOOD [facility] DIFF [MASS/VOLU 35.1 No comment en tered. WSTRN (AUTO) ME] BY Ordering Provid er: MALACHI RODRIGUEZ AUTOMATED Report Releas ed Date/Time: Apr 12, 2022 09:17 AM [facility] COUNT Reporting Lab: [facility] [place] [facility] [address] [facility] [address] Performing Lab: [facility] [place] [facility] [address] [facility] [address] CBC AND PLATELETS 171 140 - 360 04/13 Specimen Typ e: BLOOD [facility] DIFF [#/VOLUME] /2021 No comment en tered. WSTRN (AUTO) IN BLOOD Ordering Provi rosas: MALACHI RODRIGUEZ BY Report Released Date/Time: Apr 12, 2022 09:17 AM TS [facility] AUTOMATED Reporting Lab : [facility] [place] [facility] COUNT [address] [facility] [address] Performing Lab: [facility] [place] [facility] [address] [facility] [address] CBC AND ERYTHROCYT 12.0 12.0 - 04/13 Specimen Type : BLOOD [facility] DIFF E 16.0 No comment enter ed. WSTRN (AUTO) DISTRIBUTI Ordering Pro vider: MALACHI RODRIGUEZ ON WIDTH Report Release d Date/Time: Apr 12, 2022 09:17 AM TS [facility] [RATIO] BY Reporting La b: [facility] [place] [facility] AUTOMATED [address] [facility] [address] COUNT Performing Lab: [facility] [place] [facility] [address] [facility] [address] CBC AND MONOCYTES 0.72 0.30 - 04/13 Specimen Type: BLOOD [facility] DIFF [#/VOLUME] 1.10 No comment en tered. WSTRN (AUTO) IN BLOOD Ordering Provi rosas: MALACHI RODRIGUEZ MASSCHEBONIE BY Report Released Date/Time: Apr 12, 2022 09:17 AM TS [facility] AUTOMATED Reporting Lab : [facility] [place] [facility] COUNT [address] [facility] [address] Performing Lab: [facility] [place] [facility] [address] [facility] [address] CBC AND MCH 29.9 26.2 - 04/13 Specimen Type: B LOOD [facility] DIFF [ENTITIC 32.6 No comment ente red. WSTRN (AUTO) MASS] BY Ordering Provi rosas: MALACHI RODRIGUEZ [place] AUTOMATED Report Releas ed Date/Time: Apr 12, 2022 09:17 AM TS [facility] COUNT Reporting Lab: [facility] [place] [facility] [address] [facility] [address] Performing Lab: [facility] [place] [facility] [address] [facility] [address] CBC AND NEUTROPHIL 47.9 04/13 Specimen Type : BLOOD [facility] DIFF S/100 No comment enter ed. WSTRN (AUTO) LEUKOCYTES Ordering Pro vider: MALACHI RODRIGUEZCHEBONIE IN BLOOD Report Release d Date/Time: Apr 12, 2022 09:17 AM [facility] BY Reporting Lab: [facility] [place] [facility] AUTOMATED [address] [facility] [address] COUNT Performing Lab: [facility] [place] [facility] [address] [facility] [address] CBC AND LYMPHOCYTE 36.0 04/13 Specimen Type : BLOOD [facility] DIFF S/100 No comment enter ed. [facility] (AUTO) LEUKOCYTES Ordering Pro vider: MALACHI RODRIGUEZ IN BLOOD Report Release d Date/Time: Apr 12, 2022 09:17 AM TS [facility] BY Reporting Lab: [facility] [place] [facility] [address] [facility] [address] COUNT Performing Lab: [facility] [place] [facility] [address] [facility] [address] CBC AND MONOCYTES/ 12.3 04/13 Specimen Type : BLOOD [facility] DIFF No comment enter ed. [facility] (AUTO) LEUKOCYTES Ordering Pro vider: MALACHI RODRIGUEZ IN BLOOD Report Release d Date/Time: Apr 12, 2022 09:17 AM [facility] BY Reporting Lab: [facility] [place] [facility] [address] [facility] [address] COUNT Performing Lab: [facility] [place] [facility] [address] [facility] [address] CBC AND EOSINOPHIL 3.1 04/13 Specimen Type : BLOOD [facility] DIFF S/ No comment enter ed. [facility] (AUTO) LEUKOCYTES Ordering Pro vider: MALACHI RODRIGUEZ IN BLOOD Report Release d Date/Time: Apr 12, 2022 09:17 AM TS [facility] BY Reporting Lab: [facility] [place] [facility] AUTOMATED [address] [facility] [address] COUNT Performing Lab: [facility] [place] [facility] [address] [facility] [address] CBC AND BASOPHILS/ 0.5 04/13 Specimen Type : BLOOD [facility] DIFF No comment enter ed. [facility] (AUTO) LEUKOCYTES Ordering Pro vider: MALACHI RODRIGUEZCHEBONIE IN BLOOD Report Release d Date/Time: Apr 12, 2022 09:17 AM TS [facility] BY Reporting Lab: [facility] [place] [facility] AUTOM[facility] [address] [facility] [address] COUNT Performing Lab: [facility] [place] [facility] [address] [facility] [address] CBC AND NEUTROPHIL 2.79 2.20 - 04/13 Specimen Type : BLOOD [facility] DIFF S 7.60 /2021 No comment enter ed. [facility] (AUTO) [#/VOLUME] Ordering Pro vider: MALACHI RODRIGUEZCHEBONIE IN BLOOD Report Release d Date/Time: Apr 12, 2022 09:17 AM TS [facility] BY Reporting Lab: [facility] [place] [facility] AUTOM[facility] [address] [facility] [address] COUNT Performing Lab: [facility] [place] [facility] [address] [facility] [address] CBC AND LYMPHOCYTE 2.10 1.00 - 04/13 Specimen Type : BLOOD [facility] DIFF S 3.20 No comment enter ed. [facility] (AUTO) [#/VOLUME] Ordering Pro vider: MALACHI RODRIGUEZ IN BLOOD Report Release d Date/Time: Apr 12, 2022 09:17 AM TS [facility] BY Reporting Lab: [facility] [place] [facility] AUTOMATED [address] [facility] [address] COUNT Performing Lab: [facility] [place] [facility] [address] [facility] [address] CBC AND EOSINOPHIL 0.18 0.03 - 04/13 Specimen Type : BLOOD [facility] DIFF S 0.44 /2021 No comment enter ed. [facility] (AUTO) [#/VOLUME] Ordering Pro vider: MALACHI RODRIGUEZ IN BLOOD Report Release d Date/Time: Apr 12, 2022 09:17 AM TS [facility] BY Reporting Lab: [facility] [place] [facility] AUTOMATED [address] [facility] [address] COUNT Performing Lab: [facility] [place] [facility] [address] [facility] [address] CBC AND BASOPHILS 0.03 0.01 - 04/13 Specimen Type: BLOOD [facility] DIFF [#/VOLUME] 0.13 No comment en tered. [facility] (AUTO) IN BLOOD Ordering Provi rosas: RODRIGUEZ,RAIMONDA MARIS [place] BY Report Released Date/Time: Apr 12, 2022 09:17 AM TS [facility] AUTOMATED Reporting Lab : [facility] [place] [facility] COUNT [address] [facility] [address] Performing Lab: [facility] [place] [facility] [address] [facility] [address] CBC AND IMMATURE 0.2 04/13 Specimen Type: BLOOD [facility] GRANULOC[facility]T /2021 No comment en tered. [facility] (AUTO) ES/100 Ordering Provid er: MALACHI RODRIGUEZ LEUKOCYTES Report Relea sed Date/Time: Apr 12, 2022 09:17 AM TS [facility] IN BLOOD Reporting Lab: [facility] [place] [facility] BY [address] [facility] [address] AUTOMATED Performing La b: [facility] [place] [facility] COUNT [address] [facility] [address] CBC AND IMMATURE 0.01 0.00 - 04/13 Specimen Type: BLOOD [facility] DIFF GRANULOCYT 0.06 /2021 No comment en tered. [facility] (AUTO) ES Ordering Provid er: MALACHI RODRIGUEZ [#/VOLUME] Report Relea sed Date/Time: Apr 12, 2022 09:17 AM TS [facility] IN BLOOD Reporting Lab: [facility] [place] [facility] [address] [facility] [address] Performing Lab: [facility] [place] [facility] [address] [facility] [address] HEMOGLOB HEMOGLOBIN 5.2 4.0 - 5.6 04/13 Specimen T ype: BLOOD [facility] A1C A1C/HEMOGL /2021 Comment: Jessica ues obtained from A1C measurements can vary. For typical A1C assays, a reported value of 7.0 could actually be between 6.72 and 7.28 if measured by a reference method. A reported value of 9 [facility] PANEL OBIN.TOTAL .0 could actu ally be between 8.73 and 9.27. Ref: http://www.ngsp.org/CAPdata.asp [place] IN BLOOD Ordering Provi rosas: MALACHI RODRIGUEZ TS [facility] BY HPLC Report Released Date/Time: Apr 12, 2022 09:17 AM Reporting Lab: [facility] [place] [facility] [address] [facility] [address] Performing Lab: [facility] [place] [facility] [address] [facility] [address] LIPID CHOLESTERO 150 7 - 199 04/13 Specimen Type : SERUM [facility] PANEL L /2021 No comment enter ed. [facility] FASTING [MASS/VOLU Ordering Pro vider: MALACHI RODRIGUEZ [place]] IN Report Released Date/Time: Apr 12, 2022 09:17 AM TS [facility] SERUM OR Reporting Lab: [facility] [place] [facility] PLASMA [address] [facility] [address] Performing Lab: [facility] [place] [facility] [address] [facility] [address] LIPID TRIGLYCERI 137 0 - 150 04/13 Specimen Type : SERUM [facility] PANEL DE /2021 No comment enter ed. [facility] FASTING [MASS/VOLU Ordering Pro vider: MALACHI RODRIGUEZ [place]] IN Report Released Date/Time: Apr 12, 2022 09:17 AM TS [facility] SERUM OR Reporting Lab: [facility] [place] [facility] PLASMA [address] [facility] [address] Performing Lab: [facility] [place] [facility] [address] [facility] [address] LIPID CHOLESTERO 84 0 - 129 04/13 Specimen Type : SERUM [facility] PANEL L IN LDL No comment ente red. [facility] FASTING [MASS/VOLU Ordering Pro vider: MALACHI RODRIGUEZ [place]] IN Report Released Date/Time: Apr 12, 2022 09:17 AM TS [facility] SERUM OR Reporting Lab: [facility] [place] [facility] PLASMA BY [address] [facility] [address] CALCULATIO Performing L ab: [facility] [place] [facility] N [address] [facility] [address] LIPID CHOLESTERO 3.8 04/13 Specimen Type : SERUM [facility] PANEL L.TOTAL/CH /2021 No comment en tered. [facility] FASTING OLESTEROL Ordering Prov ider: MALACHI RODRIGUEZ IN HDL Report Released Date/Time: Apr 12, 2022 09:17 AM TS [facility] [MASS Reporting Lab: [facility] [place] [facility] RATIO] IN [address] [facility] [address] SERUM OR Performing Lab : [facility] [place] [facility] PLASMA [address] [facility] [address] LIPID CHOLESTERO 39 40 - 60 04/13 L Specimen Type : SERUM [facility] PANEL L IN HDL /2021 No comment ente red. [facility] FASTING [MASS/VOLU Ordering Pro vider: MALACHI RODRIGUEZ [place]] IN Report Released Date/Time: Apr 12, 2022 09:17 AM TS [facility] SERUM OR Reporting Lab: [facility] [place] [facility] PLASMA [address] [facility] [address] Performing Lab: [facility] [place] [facility] [address] [facility] [address] LIVER PROTEIN 7.2 6.0 - 8.3 04/13 Specimen Type: SERUM [facility] FUNCTION [MASS/VOLU /2021 No comment e ntered. W[facility]N ME] IN Ordering Provid er: MALACHI RODRIGUEZ SERUM OR Report Release d Date/Time: Apr 12, 2022 09:17 AM TS [facility] PLASMA Reporting Lab: [facility] [place] [facility] [address] [facility] [address] Performing Lab: [facility] [place] [facility] [address] [facility] [address] LIVER ALBUMIN 3.8 3.5 - 5.0 04/13 Specimen Type: SERUM [facility] FUNCTION [MASS/VOLU /2021 No comment e ntered. WSTRN ME] IN Ordering Provid er: MALACHI RODRIGUEZ SERUM OR Report Release d Date/Time: Apr 12, 2022 09:17 AM TS [facility] PLASMA Reporting Lab: [facility] [place] [facility] [address] [facility] [address] Performing Lab: [facility] [place] [facility] [address] [facility] [address] LIVER ALKALINE 66 40 - 150 04/13 Specimen Type: SERUM [facility] FUNCTION PHOSPHATAS No comment e ntered. [facility]STRN E Ordering Provid er: MALACHI RODRIGUEZ [ENZYMATIC Report Relea sed Date/Time: Apr 12, 2022 09:17 AM TS [facility] ACTIVITY/V Reporting La b: [facility] [place] [facility] OLUME] IN [address] [facility] [address] SERUM OR Performing Lab : [facility] [place] [facility] PLASMA [address] [facility] [address] LIVER ASPARTATE 18 5 - 34 04/13 Specimen Type: SERUM [facility] FUNCTION AMINOTRANS No comment e ntered. [facility] FERASE Ordering Provid er: MALACHI RODRIGUEZ [ENZYMATIC Report Relea sed Date/Time: Apr 12, 2022 09:17 AM TS [facility] ACTIVITY/V Reporting La b: [facility] [place] [facility] OLUME] IN [address] [facility] [address] SERUM OR Performing Lab : [facility] [place] [facility] PLASMA [address] [facility] [address] LIVER ALANINE 21 6 - 55 04/13 Specimen Type: S CHIOMA [facility] FUNCTION AMINOTRANS No comment e ntered. [facility] FERASE Ordering Provid er: MALACHI RODRIGUEZ [ENZYMATIC Report Relea sed Date/Time: Apr 12, 2022 09:17 AM TS [facility] ACTIVITY/V Reporting La b: [facility] [place] [facility] OLUME] IN [address] [facility] [address] SERUM OR Performing Lab : [facility] [place] [facility] PLASMA [address] [facility] [address] LIVER BILIRUBIN. 0.4 0.2 - 1.2 04/13 Specimen Ty pe: SERUM [facility] FUNCTION TOTAL No comment ente red. [facility]STRN [MASS/VOLU Ordering Pro vider: MALACHI RODRIGUEZ [place]] IN Report Released Date/Time: Apr 12, 2022 09:17 AM TS [facility] SERUM OR Reporting Lab: [facility] [place] [facility] PLASMA [address] [facility] [address] Performing Lab: [facility] [place] [facility] [address] [facility] [address] TSH THYROTROPI 1.19 0.35 - 04/13 Specimen Type : SERUM [facility] N 5.00 No comment enter ed. [facility]N [UNITS/VOL Ordering Pro vider: MALACHI RODRIGUEZ UME] IN Report Released Date/Time: Apr 12, 2022 09:17 AM TS [facility] SERUM OR Reporting Lab: [facility] [place] [facility] PLASMA [address] [facility] [address] Performing Lab: [facility] [place] [facility] [address] [facility] [address] Vital Signs Combined list of inpatient and outpatient Vital Signs from Department of Defense and Veterans Affairs, ranging from 12 months to all on record, depending upon the facility. Vital Sign Value Date Comments Source SYSTOLIC BLOOD PRESSURE 126 04/13/2022 [facility] [place] [facility] DIASTOLIC BLOOD PRESSURE 74 04/13/2022 [facility] [place] [facility] PULSE OXIMETRY 96% 04/13/2022 [facility] [place] [facility] WEIGHT 214 04/13/2022 [facility] [place] [facility] BMI 35kg/m2 04/13/2022 [facility] [place] [facility] PAIN 3 04/13/2022 [facility] [place] [facility] TEMPERATURE 98.4 04/13/2022 [facility] [place] [facility] PULSE 70 04/13/2022 [facility] [place] [facility] RESPIRATION 17 04/13/2022 [facility] [place] [facility] Encounters Combined list of: 1) Encounters from Department of Veterans Affairs facilities going back up to the last 18 months. 2) Encounters from the Department of Defense facilities going back up to 280 months. Location Location Encounter Encounter Reason Attending ADM DC Stat us Disposition Source Details Type Number For Provider Date Date Visit Outpatient [id number] 02/14 [id number] [place] [facility] [facility] [id number] 02/16 [facility] [id number] [place] [facility] [facility] Out[facility] [id number] 02/18 [facility] [id number] [facility] [place] [facility] [facility] Out[facility] [id number] 03/01 [facility] En[facility] [id number] [facility] [place] [facility] Out[facility] [id number] 03/01 [facility] [id number] [facility] [place] [facility] [facility] Out[facility] [id number] 03/01 [facility] En[facility] [id number] /2021 [facility] [place] [facility] [facility] Out[facility] [id number] 03/08 [facility] En[facility] [id number] /2021 [facility] [place] [facility] [facility] Out[facility] [id number] 04/11 [facility] [id number] [facility] [place] [facility] [facility] Out[facility] [id number] 04/11 [facility] [id number] [facility] OFFICE O/P [id number] Diagnos TJ GLEASON 04/12 [facility] EST MOD [id number] is: MICH CNTRL 30-39 MIN ICD-10- [facility] CM [place] L40.8 SETS Other HCS psorias is
with Provide r Comment s: Other Psorias is HEARING [id number] Diagnos CHUY ORTIZ 04/12 [facility] AID [id number] is: L [facility] REPAIR/MOD ICD-10- [facility] IFYING CM [place] Z46.1 SETS [facility] er for fitting and adjustm ent of hearing aid<br/ >with Provide r Comment s: [facility] er for Fitting and Adjustm ent of Hearing Aid HEARING [id number] Diagnos Tiesha HERR 05/02 [facility] A[facility] [id number] is: ALANNA [facility] FITTING/CH ICD-10- [facility] ECKING CM [place] H90.3 SETS [facility] neural hearing loss, bilater al
with Provide r Comment s: [facility] neural Hearing Loss, Bilater al CONFORMITY Diagnos Tiesha HERR 06/01 [facility] EVALUATION [id number] is: ALANNA CNTR L ICD-10- [facility] CM [place] Z46.1 SETS [facility] er for fitting and adjustm ent of hearing aid<br/ >with Provide r Comment s: [facility] er for Fitting and Adjustm ent of Hearing Aid HEARING [id number] Diagnos ILANA PITTS 06/06 [facility] A[facility] [id number] is: SATURNINO [facility] REPAIR/MOD ICD-10- [facility] IFYING CM [place] Z46.1 SETS [facility] er for fitting and adjustm ent of hearing aid<br/ >with Provide r Comment s: [facility] er for Fitting and Adjustm ent of Hearing Aid Outpatient [id number] Diagnos KIM 09/15 [facility] Encounter [id number] is: TOMASZ SERRANO CNTRL ICD-10- A [facility] CM [place] Z02.89 SETS [facility] er for other adminis trative examina tions<b r/>with Provide r Comment s: [facility] er for other Adminis trative Examina tions Outpatient [id number]/10 [facility] [id number] [facility] [place] [id number] 04/13 [facility] Encounter [id number] /2022 [facility] [place] [facility] [facility] OFFICE [place]/P [id number] Diagnos DEREK RODRIGUEZ 04/13 [facility] EST MOD [id number] is: MONDA CNTRL 30-39 MIN ICD-10- MARIS [facility] CM [place] I48.91 SETS [facility] fied atrial fibrill ation<b r/>with Provide r Comment s: AF - Atrial fibrill ation (SNOMED CT 1289134 4) Outpatient [id number] 04/15 [facility] Encounter [id number] /2022 [facility] [place] [facility] Social History Combined list of available smoking, tobacco, and other social [facility]. Social History Type Response Date Comment Source Tobacco smoking VA-TOBACCO QUIT 5 TO 04/13/2022 MA C [facility] status NHIS < 15 YRS [place] [facility] History of tobacco VA-TOBACCO FORMER 04/13/2022 [facility] use USER [place] [facility] History of tobacco VA-TOBACCO FORMER 04/12/2021 [facility] C [facility] use USER [place] [facility] History of tobacco VA-TOBACCO QUIT 5 TO 03/19/2020 V A [facility] W[facility] use < 15 YRS [place] [facility] History of tobacco VA-TOBACCO QUIT 5 TO 12/12/2018 V A [facility] W[facility] use < 15 YRS [place] [facility] History of tobacco QUIT TOBACCO USE > 7 01/21/2018 V A [facility] use YEARS AGO [place] [facility] History of tobacco QUIT TOBACCO USE > 7 12/25/2016 [facility] Advance Directives List of completed, amended, or rescinded Advance Directives on record at Department of Veterans Affairs facilities. An actual copy of the Directive is not included. Date Advance Directive Provider Source 05/23/2015 ADVANCE DIRECTIVE AMBER PENA [place] [facility] [place] [facility]
--- OUTSIDE RECORDS SUMMARY | 2022-06-19 22:36 | XMS_ITS ---
:1950 Author Organization [facility] rs Address [address] [place] [id number] Support Name Relationship Address Phone BRIDGER ARNOLD Unavailable [address] [place] [address] BRIDGER ARNOLD Unavailable Unavailable Insurance Providers: All [...] Number Parekh UNITED MEDICARE MCR Jul 16 [id number] [phone] [place] [employer]AGE (WNR) 2017 24 0 [facility] ([facility]) Selected Encounter This section includes the information on record at [place] for the Encounter. Date/Time Encounter Type Encounter Reason Provider Source Description Apr 13, 2022 OFFICE O/P EST PRIMARY ICD-10-CM I48.91 TAM RODRIGUEZ 09:30 AM MOD 30-39 MIN CARE/MEDICINE Unspecified atrial DA MARIS fibrillation with Provider Comments: AF - Atrial fibrillation (SNOMED CT [id number]) IHE Encounter Template Text not used by [place] Assessments - Encounter Diagnoses This section includes the primary and secondary diagnoses documented for the Encounter. 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 [facility] [place] [facility] Apr 13, 2022 SECONDARY Family history of TAM RODRIGUEZ [facility] W[facility]N 10:11 AM alcohol abuse and [facility] [place] [facility] dependence Apr 13, 2022 SECONDARY Gastro-esophageal [facility]11 AM reflux disease [facility] [place] [facility] without esophagitis Apr 13, 2022 SECONDARY Hyperlipidemia, TAM RODRIGUEZ [facility] WS TRN 10:11 AM unspecified [facility] [place] [facility] Plan of Treatment: Future Appointments (+ 6 months) and Future Tests (+/- 45 days) The Plan of Treatment section includes future care activities for the patient from all [place] treatmentfacilities. This section includes future appointments and future orders which are active, pending orscheduled.Active, Pending, and Scheduled Orders This section includes a listing of several types of active, pending, and scheduled orders, including clinic medications orders, diagnostic test orders, procedure orders and consult orders; where the start date of the order is 45 days before the date of the Encounter or 45 days after the date of the Encounter. The data comes from all [place] treatment facilities. Test Date/Time Test Type Test Details Facility Name Apr 13, 2022 12:00 AM Laboratory - CREATININE (eGFR [facility] Chemistry Order 2020) BLOOD [facility] (SST-SERUM) SP Lab Results: +/- 30 days of the encounter This section includes the Chemistry and Hematology Lab Results on record with [place] for the patient. Radiology Reports and Pathology Reports are provided separately, in subsequent sections.Lab Results This section contains the Chemistry/Hematology Results that were resulted 30 days before or 30 daysafter the date of the Encounter. Date/Time Source Result Type Result - Unit Interpretation Reference Range Comment Apr 13, 2022 10:23 [facility] Specimen Typ e: URINE AM [facility] No comment enter ed. Ordering Provid er: MALACHI RODRIGUEZ Report Released Date/Time: Apr 13, 2022 09:55 AM Reporting Lab: [address] [place] [address] Performing Lab: [address] [place] [address] UA COLOR Yellow Yellow UA APPEARANCE Clear Clear UA GLUCOSE Negative Negative UA KETONES Negative Neg UA BLOOD Negative Neg UA PROTEIN Negative Neg UA NITRITE Negative Neg UA BILIRUBIN Negative Neg UA SPECIFIC GRAVITY 1.017 1.016-1.02 2 UA pH 6.0 5.0-9.0 UA UROBILINOGEN 2.0 <2.0 UA LEUKOCYTE ESTERASE Negative Neg Apr 13, 2022 [facility] PROTEIN/CREATININE RATIO Specim en Type: URINE 10:23 AM [place] [facility] PANEL, URINE No comment enter ed. Ordering Provid er: MALACHI RODRIGUEZ Report Released Date/Time: Apr 13, 2022 09:55 AM Reporting Lab: [facility] [place] [facility] [address] [facility] [address] Performing Lab: [facility] [place] [facility] [address] [facility] [address] CREATININE URINE 102.65 UR PROTEIN/CREATININE RATIO 0.1 <0 .2 PROTEIN, URINE 11.1 0.0-20.0 Apr 13, 2022 [facility] LIPID PANEL FASTING Specimen Ty pe: SERUM 10:23 AM [place] [facility] No comment enter ed. Ordering Provid er: MALACHI RODRIGUEZ Report Released Date/Time: Apr 12, 2022 09:17 AM Reporting Lab: [facility] [place] [facility] [address] [facility] [address] Performing Lab: [facility] [place] [facility] [address] [facility] [address] CHOLESTEROL 150 <7-199 TRIGLYCERIDE 137 0-150 LDL calculated 84 0-129 CHOL/HDL 3.8 HDL CHOLESTEROL 39 L 40-60 Apr 13, 2022 [facility] BASIC METABOLIC Specimen Type: SERUM 10:23 AM [place] [facility] PANEL (fasting) No comment enter ed. Ordering Provid er: MALACHI RODRIGUEZ Report Released Date/Time: Apr 12, 2022 09:17 AM Reporting Lab: [facility] [place] [facility] [address] [facility] [address] Performing Lab: [facility] [place] [facility] [address] [facility] [address] UREA NITROGEN 11 7-25 GLUCOSE 97 65-100 SODIUM 139 135-145 POTASSIUM 4.1 3.5-5.0 CHLORIDE 106 100-110 CO2 24 20-30 CREATININE, Serum 0.83 0.50-1.40 eGFR(CKD-EPI 2020) >90 >60 Apr 13, 2022 10:23 [facility] LIVER FUNCTION Specimen Typ e: SERUM AM [place] [facility] No comment enter ed. Ordering Provid er: MALACHI RODRIGUEZ Report Released Date/Time: Apr 12, 2022 09:17 AM Reporting Lab: [facility] [address] [facility] [address] Performing Lab: [facility] [address] [facility] [address] PROTEIN,TOTAL 7.2 6.0-8.3 ALBUMIN 3.8 3.5-5.0 ALKALINE PHOSPHATASE 66 40-150 AST 18 5-34 ALT 21 <6-55 BILIRUBIN, TOTAL 0.4 0.2-1.2 Apr 13, 2022 [facility] HEMOGLOBIN A1C Specimen Type: BLOOD 10:23 AM [facility] PANEL Comment: Values obtained from A1C measurements can vary. For typical A1C assays, a reported value of 7.0 could actually be between 6.72 and 7.28 if measured by a reference method. A reported value of 9 .0 could actuall y be between 8.73 and 9.27. Ref: http://www.ngsp.org/CAPdata.asp Ordering Provid er: MALACHI RODRIGUEZ Report Released Date/Time: Apr 12, 2022 09:17 AM Reporting Lab: [facility] [address] [facility] [address] Performing Lab: [facility] [address] [facility] [address] HEMOGLOBIN A1C 5.2 4.0-5.6 Apr 13, 2022 10:23 AM [facility] Specimen Type: SERUM [facility] No comment enter ed. Ordering Provid er: MALACHI RODRIGUEZ Report Released Date/Time: Apr 12, 2022 09:17 AM Reporting Lab: [facility] [place] [facility] [address] [facility] [address] Performing Lab: [facility] [place] [facility] [address] [facility] [address] TSH 1.19 0.35-5.00 Apr 13, 2022 [facility] CBC AND DIFF Specimen Type: BLOOD 10:23 AM [place] [facility] (AUTO) No comment enter ed. Ordering Provid er: MALACHI RODRIGUEZ Report Released Date/Time: Apr 12, 2022 09:17 AM Reporting Lab: [place] [facility] [place] [facility] [address] [facility] [address] Performing Lab: [place] [facility] [place] [facility] [address] [facility] [address] WBC 5.83 4.50-11.00 RBC 4.91 4.23-5.66 HGB 14.7 12.8-17 HCT 42.5 39.2-50.4 MCV 86.6 82-99 MCHC 34.6 30.8-35.1 PLT 171 140-360 RDW-CV 12.0 12.0-16.0 [place], Abs 0.72 0.30-1.10 MCH 29.9 26.2-32.6 Neut % 47.9 Lymph % 36.0 [place] % 12.3 Eos % 3.1 Baso % 0.5 Neut, Abs 2.79 2.20-7.60 Lymph, Abs 2.10 1.00-3.20 Eos, Abs 0.18 0.03-0.44 Baso, Abs 0.03 0.01-0.13 Immature Gran % 0.2 Immature Gran, Abs 0.01 0.00-0.06 Vital Signs: All taken on the encounter date This section contains inpatient and outpatient Vital Signs collected on the date of the Encounter. Date/Time Temperature Pulse Blood Respiratory SP02 Pain Height Weight Pavel dy Source Pressure Rate Mass Index Apr 13, 98.4 F 70 126/74 17 /min 96 % 3 214 lb 35 [facility] 2021 09:30 /min mm[Hg] CNTR[facility] AM [place] [facility] Social History: Smoking Status (Most current) and Tobacco Use (All prior to encounter date) This section includes the most current, and the historical, smoking and tobacco-related health factors from the [place] facility where the Encounter took place.Current Smoking Status This section includes the most current smoking, or tobacco-related health factor, from the [place] facility where the Encounter took place. Date/Time Current Smoking Status Comment Facility Apr 13, 2022 09:30 AM VA-TOBACCO [facility] Tobacco Use History This section includes a history of the smoking, or tobacco- related health factors, that were collected on or before the date of the Encounter. The data comes from the [place] facility where the Encounter took place. Date/Time Smoking Status/Tobacco Use Comment [facility] Apr 13, 2022 09:30 AM VA-TOBACCO QUIT 5 TO < 15 YRS [facility] [place] [facility] Apr 12, 2021 11:30 AM VA-TOBACCO FORMER USER [facility] [place] [facility] Apr 12, 2021 11:30 AM VA-TOBACCO QUIT 5 TO < 15 YRS [facility] [place] [facility] Mar 19, 2020 09:00 AM VA-TOBACCO FORMER USER [place] [facility] [place] [facility] Mar 19, 2020 09:00 AM VA-TOBACCO QUIT 5 TO < 15 YRS [facility] [place] [facility] December 12, 2018 10:18 AM VA-TOBACCO FORMER USER [facility] [place] [facility] December 12, 2018 10:18 AM VA-TOBACCO QUIT 5 TO < 15 YRS [facility] [place] [facility] Jan 21, 2018 07:50 AM QUIT TOBACCO USE > 7 YEARS [facility] [place] [facility] Dec 25, 2016 10:59 AM QUIT TOBACCO USE > 7 YEARS [facility] [place] [facility] Advance Directives: All historical and current Section Date Range: From patient's date of to the date document was created. This section includes ALL of a patient's completed or amended [place] Advance and Rescinded Directives. The entries below indicate that a directive exists for the patient, but an actual copy is not included with this document. The data comes from all [place] facilities. Date Advance Directives Provider Source May 23, 2015 ADVANCE DIRECTIVE AMBER PENA [place] [facility] Encounter Notes: All associated encounter notes This section contains the clinical notes associated to the Encounter. Date/Time Encounter Note(s) Provider Source Apr 13, 2022 09:36 PRIMARY CARE NURSE PRACTITIONER OUTPATIE NT NOTE: MALACHI RODRIGUEZ [facility] AM LOCAL TITLE: NURSE PRACTITIONER OUTPATIENT NOTE MARIS GANDARA [facility] STANDARD TITLE: PRIMARY CARE NURSE PRACTITIONER OUTPATIENT NOTE DATE OF NOTE: APR 13, 2022@09:36 ENTRY DATE: APR 13, 2022@09:36:50 AUTHOR: MALACHI RODRIGUEZ COSIGNER: URGENCY: STATUS: COMPLETED NURSE PRACTITIONER OUTPATIENT NOTE Has BERNABE MORENO CC Presents today for routine eval Follows with Dr. Blanton at [facility] HPI This is a 72 y/o male with history of Active problems - Computerized Problem List is t he source for the followin. Arrhythmia MED: Metoprolol / taper off fleca inide( start 02/2019) Per pt - hx of left bundle block 2. Does use hearing aid 3. Adult screening status 11/2018 - No evidence of abdominal aortic aneurysm. 4. History of surgery multiple cystoscopy - catherine ry 3 months ( x urologist- bernardo/ [place]ICK[place]) multiple cyst excised - scrotum/ ne ck - 2017 2018- left knee arthroplasty 5. Follicular cysts of skin and subcutaneous ti ssue 6. Posttraumatic stress disorder 7. Under care of multiple p roviders DR Corrie BLANTON ( [facility]) - visit 12/11/18 [place] - SEE PUBLIC HEALTH INFORMATICIAN WHEN IN [place] DA ( JUN THRU NOVEMBER ) NON [place] DERMATOLOGY - NON [place] urologist ( [place] ( [facility]- D R Ivon / [place] - DR Rangel 8. Sleep apnea PER VISIT 01/21/18 - INDIGO [place] VISIT (CWM/NO/PACT 8 ) CPAP auto PAP mode 5-15 cm - h20 humidified - air lifetime ( D R PO) - non [place] script 9. Bladder cancer TURB procedures x 5. Diagnose d in 2012. 10. Hyperlipidemia 11. Gastroesophageal reflux disease 12. History of alcohol abuse sober for more than 38 yrs Denies any recent fever, chi lls, cough, chest pain, sob, dizziness. No recent UC visits or hospitalizations. Was in the hospital in January for afib. Sc heduled for ablation 05/01/22 Mandy at [facility] will do the procedure. No chest pain, p alpitations. Informatics Educator is Dr. Pantoja. Bladder CA dx 2012 was in remission and now has returned -following with Urology -he is scheduled for suregery again, this will b e his 14th surgery -Urologist is Dr. 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 Had SBO in January 2021 and then again in winter. The first obstruction was from scar tissue and 2nd obstruction was from na rrowing of intestine. Takes miralax daily and stool softener . Gale reports living his best life. ALLERGIES NKA MEDICATIONS: Active and Recently Outpatient Medicati ons (excluding Supplies): Pending Outpatient Medications Status 1) HYDROPHILIC (EQV AQUAPHOR) TOP OINT APPLY LAURYN ERAL PENDING AMOUNT TOPICALLY TWICE DAILY Active Non-VA Medications Status 1) Non-VA APIXABAN 5MG TAB 5MG BY MOUTH EVERY 12 HOURS ACTIVE 2) Non-VA METOPROLOL TARTRATE 50MG TAB 50MG BY M OUTH ACTIVE TWICE DAILY 3) Non-VA OMEPRAZOLE 20MG CAP,EC 20MG BY MOUTH E VERY ACTIVE MORNING 30 MINUTES BEFORE BREAKFAST 4) Non-VA SIMVASTATIN 80MG TAB 40MG BY MOUTH AT BEDTIME ACTIVE 5 Total Medications VITALS 98.4 F [36.9 C] (04/13/2022 09:30) 70 (04/13/2022 09:30) 17 (04/13/2022 09:30) 126/74 (04/13/2022 09:30) 3 (04/13/2022 09:30) 66 in [167.6 cm] (12/25/2016 11:01) 214 lb [97.07 kg] (04/13/2022 09:30) BMI: 34.6 A/P Patient prefers to follow up with Off-si te PCP regularly for titration of meds and management of chronic conditions. He will co me here annually. Advised if anythin g changes and no longer following with off-site PCP, please call el teacher to schedule sooner appt w [facility] PCP. Follow Up Colonoscopy: Colonoscopy is due based on information availab le to this reminder. Patient has arranged or is choosing to arrange a Colonoscopy independent of and w/out assistance from this [place]. Medication Reconciliation: Outpatient Has the patient been taking medications as docu mented in the [facility]? No: Discrepencies were identified. See below. Essential Medication List for Review used to co mplete this medication reconciliation. INCLUDED IN THIS LIST: Alphabetical list of act eva outpatient prescriptions dispensed from this [place] (local) an d dispensed from another [place] or DoD facility (remote) as well as inpatien t orders (local, pending and active), local clinic medications, locally documented non-VA medications, and local prescriptions that have or been discontinued in the past 90 days. - Discrepancies were identified, addressed, and discussed with the patient/caregiver at this encounter. Discrepancies: updated med list - All changes in medications, including all non -VA/Herbal/OTC medications were entered into CPRS. - If there were any medications the patient beth uld no longer take, they were discontinued. - The patient/caregiver was instructed to updat e this list, discard old lists, and take this list to the next appointme nt, whether with a VA or non-VA provider. /rochelle RODRIGUEZ NP NURSE PRACTITIONER Signed: 04/13/2022 10:11 04/13/2022 ADDENDUM STATUS: COMPLETED Please request c-scope records from [facility] from Feb 2022. /rochelle RODRIGUEZ NP NURSE PRACTITIONER Signed: 04/13/2022 10:12 Receipt Acknowledged By: 04/13/2022 10:19 /es/ DANIELLE WILLSON RN REGISTERED NURSE 04/13/2022 12:53 /es/ HERSON WEBSTER RN REGISTERED NURSE 04/13/2022 ADDENDUM STATUS: COMPLETED Faxed medical rec req for vets Cscope to be faxe d to [facility] [phone] /kristen/ DANIELLE WILLSON RN REGISTERED NURSE Signed: 04/13/2022 10:26 04/14/2022 ADDENDUM STATUS: COMPLETED [facility]ceived [facility] [place] [facility] asking 'wha t is a c-scope? Replied via return fax that PCP was looking for colonoscopy report. /kristen/ HERSON WEBSTER RN REGISTERED NURSE Signed: 04/14/2022 08:44 Apr 13, 2022 09:27 PREVENTIVE MEDICINE NURSING NOTE: ASHLIE WILLSON [facility] AM LOCAL TITLE: CLINICAL REMINDERS/NURSING [facility] STANDARD TITLE: PREVENTIVE MEDICINE NURSING NOTE DATE OF NOTE: APR 13, 2022@09:27 ENTRY DATE: APR 13, 2022@09:27:57 AUTHOR: DANIELLE WILLSON EXP COSIGNER: URGENCY: STATUS: COMPLETED Suicide Screen: C-SSRS Screening [place]-Suicide Severity Rating Scale (C-SSRS Screener) 1. Over the past month, have you wished you wer e or wished you could go to sleep and not wake up? No 2. Over the past month, have you had any actual thoughts of killing yourself? No 3. Over the past month, have you been thinking about how you might do this? Response not required due to responses to other questions. 4. Over the past month, have you had these thou ghts and had some intention of acting on them? Response not required due to responses to other questions. 5. Over the past month, have you started to wor k out or worked out the details of how to kill yourself? Response not required due to responses to other questions. 6. If yes, at any time in the past month did yo u intend to carry out this plan? Response not required due to responses to other questions. 7. In your lifetime, have you ever done anythin g, started to do anything, or prepared to do anything to end you r life (for example, collected pills, obtained a gun, gave away valu lata, went to the roof but didn't jump)? No 8. If YES, was this within the past 3 months? Response not required due to responses to other questions. Follow Up Colonoscopy: Colonoscopy is due based on information availab le to this reminder. A colonoscopy has been completed elsewhere and we are waiting for results. Gale states he had one done recently Depression Screening: Perform PHQ-2 A PHQ-2 screen was performed. The score was 0 w hich is a negative screen for depression. Over the past two weeks, how often have you bee n bothered by the following problems? 1. Little interest or pleasure in doing things Not at all 2. Feeling down, depressed, or hopeless Not at all PTSD Screening: PC-PTSD-5 A PTSD screening test (PC-PTSD-5) was negative (score=0). Have you ever had any experience that was so fr ightening, horrible or upsetting that, IN THE PAST MONTH, you: Have you ever experienced this kind of event? NO 1. Had nightmares about the event(s) or thought about the event(s) when you did not want to? Response not required due to responses to other questions. 2. Tried hard not to think about the event(s) o r went out of your way to avoid situations that reminded you of the ev ent(s)? Response not required due to responses to other questions. 3. Been constantly on guard, watchful, or easil y startled? Response not required due to responses to other questions. 4. Elysian numb or detached from people, activitie s, or your surroundings? Response not required due to responses to other questions. 5. Elysian guilty or unable to stop blaming yourse lf or others for the event(s) or any problems the event(s) may have caused? Response not required due to responses to other questions. Relationship Health & Safety Screen: Environment is safe to proceed INFORMED CONSENT TO SCREEN & DOCUMENT: Individual consents to documentation? Yes Individual consents to proceed with screening? Yes PRIMARY SCREEN: In the past 12 months, how often did a current or former intimate partner (e.g., boyfriend, girlfriend, , , se xual partner): Scream or curse at you: Never Insult or talk down to you: Never Threaten you with harm: Never Physically hurt you: Never In the past 12 months, how often did a current or former intimate partner force or pressure you to have sexual co ntact against your will, or when you were unable to say no? Never PRIMARY SCREEN RESULTS: The individual denied all forms of IPV above (i .e., answered never to all 5 items above). ??The HITS tool is US copyright protected by Ty Eaton MD, and the user has full rights to use it throughout the [employer] system. DISPOSITION: Provided general IPV education. Tobacco Use Screening: The patient is a former tobacco user. The patient quit five to less than fifteen year s ago. Alcohol Use Screen (AUDIT-C): Alcohol Screen: SCREEN FOR ALCOHOL (AUDIT-C) An alcohol screening test (AUDIT-C) was negativ e (score=0). 1. How often did you have a drink containing al cohol in the past year? Never 2. How many drinks containing alcohol did you h ave on a typical day when you were drinking in the past year? Response not required due to responses to other questions. 3. How often did you have six or more drinks on one occasion in the past year? Response not required due to responses to other questions. Advance Directive Screen: Patient has an Advance Directive on file at [facility]. No updates are needed at this time. The patient received education about Advance Di rectives and written notification of his/her rights. Comment: Gale states he has paperwork, will rupesh gonzalez in next visit for updating Influenza Immunization: Deferred due to a precaution: Other precaution: Comment: Vet states already had flu shot with o [facility] provider Herpes Zoster (Shingles) Vaccine: Deferred due to a precaution: Other significant precaution Details: Vet states already had shingles shot w ith outside provider /es/ DANIELLE WILLSON RN REGISTERED NURSE Signed: 04/13/2022 10:27
--- OUTSIDE RECORDS SUMMARY | 2022-06-19 22:36 | XMS_ITS | Continuity of Care Document ---
:1950 Author Organization [facility] Address [address] [place] [id number] Care Team Providers Name Role Phone No PCP, NO PCP Primary Care Physician Unavailable Encounter Date(s): 08/03/21 - 08/09/[address] [id number] Encounter Diagnosis Leukocytosis (Discharge Diagnosis) - 08/04/21 Nausea & vomiting (Discharge Diagnosis) - 08/03/21 New onset atrial fibrillation (Discharge Diagnosis) - 08/06/21 Hypertension (Discharge Diagnosis) - 08/04/21 Small bowel obstruction (Discharge Diagnosis) - 08/04/21 Acute UTI (Discharge Diagnosis) - 08/04/21 Abdominal pain in male (Discharge Diagnosis) - 08/03/21 Discharge Disposition: Home Attending Physician: Derek Mckeon MD Admitting Physician: Fabienne Thorpe MD Allergies, Adverse Reactions, Alerts No Known Medication Allergies Assessment and Plan Extracted from: Title: Discharge Summary Author: Saskia Cochran MD D ate: 08/09/21 Abdominal pain in male??(R10.9: Unspecif ied abdominal pain) Acute UTI??(N39.0: Urinary tract infect ion, site not specified) Hypertension??(I10: Essential (primary) hypertension) Leukocytosis??(D72.829: Elevated white blood cell count, unspecified) Nausea & vomiting??(R11.2: Nausea with vomiting, unspecified) New onset atrial fibrillation??(I48.91: Unspecified atrial fibrillation) Small bowel obstruction??(K56.609: Unsp ecified intestinal obstruction, unspecified as to partial versus complete obstruction) Orders: Eliquis 5 mg oral tablet, 1 tab(s), Oral , BID, # 60 tab(s), 0 Refill(s), Maintenance, Pharmacy: [facility]/pharmacy #[id number], 1 tab(s) Oral BID, 167.6 cm, 08/09/21 7:40:00 EST, Height/Length Measured, 90.9 kg, 08/09/21 7:40:00 EST, Actual Weight Multaq 400 mg oral tablet, 1 tab(s), Or al, BID, # 60 tab(s), 0 Refill(s), Maintenance, Pharmacy: [facility]/pharmacy #[id number], 1 tab(s) Oral BID, 167.6 cm, 08/09/21 7:40:00 EST, Height/Length Measured, 90.9 kg, 08/09/21 7:40:00 EST, Actual Weight Metoprolol Tartrate 25 mg oral tablet, 1 tabs, Oral, BID, # 60 tabs, 0 Refill(s), Pharmacy: [facility]/pharmacy #[id number], 1 tab(s) Oral BID,x30 days, 167.6 cm, 08/09/21 7:40:00 EST, Height/Length Measured, 90.9 kg, 08/09/21 7:40:00 EST, Actual Weight MiraLax oral powder for reconstitution, 17 g, Oral, Daily, dissolve in water before taking, # 255 g, 0 Refill(s), Maintenance, Pharmacy: [facility]/pharmacy #[id number], 17 g Oral Daily,x15 days,Instr:dissolve in w ater before taking, 90.9 kg, 08/09/21 7: 40:00 EST, Actual Weight Cardiac Tele Category II - 48 hours, 15:56:00 EST, SBP > 160 < 90 , HR > 110 < 50, 08/11/21 15:55:00 EST Discharge Activity Restrictions, No str enuous exercise, As tolerated with fall precautions. Avoid alertness requiring activities while symptomatic or while under influence. Discharge Diet Instruction, 2 Gram Sodi um Discharge Patient, 08/09/21 17:42:00 ES T, Home, Please discharge patient home today if ok with cardiology, Thank you. Discharge Patient Instructions, Take me ds as rxd. F/u with PCP, call for appts, get referrals if needed. Come back to ED if symptoms are worse. Discharge Plans, Home, Please discharge patient home today if ok with cardiology, thank you. Extracted from: Title: ED Provider Note Author: Charles Aly MD Date: 1.??Small bowel obstruction?? (K56.609: Unspecified intestinal obstruction, unspecified as to partial versus complete obstruction) 2.??Abdominal pain in male?? (R10.9: Un specified abdominal pain) 3.??Nausea in adult?? (R11.0: Nausea) 4.??Nausea & vomiting?? (R11.2: Nausea with vomiting, unspecified) 5.??Hx of small bowel obstruction?? (Z8 7.19: Personal history of other diseases of the digestive system) 6.??Leukocytosis?? (D72.829: Elevated w chelsie blood cell count, unspecified) ?? 08/04/2021 00:58:24 ? ( WAITING FOR [facility] HOSPITALIST TO PLAC E ADMISSION ORDERS) ? 08/04/2021 01:27 Condition:??stable?? Disposition: Admitted to??[facility]??Telemetry?? floor for further care and evaluation. Accepting Physician: _. DR FABIENNE THORPE, HOSPITALIST ( [facility] ). ?? Patient's ER medical care was endors ed and transferred to : DR FABIENNE THORPE, HOSPITALIST ( [facility] ).?. I discussed the case in details with the admit ting physician and it is aware of patien t's clinical presentation, past medical history, current symptoms, physical exam findings, ER test results, ER medical care provided and admitting diagnosis. Admi tting physician agreed with the ER medic al-treatment plan provided since patient's arrival to the ER. No further orders. Will place full admission orders continue medical treatment and assume responsibi lity for all further medical care and ma nagement of the patient. Will follow up closely. ? Orders: D5-0.45NaCl 1,000 mL, IV Continuous 1,0 00 mL Order Rate: 85 mL/hr Order Weight: 90.9 kg Order Duration: 1 doses Start Date/Time: 08/03/21 23:22:00 EST Stop Date: 08/04/21 11:09:00 EST, Soln-IV Total Volume (mL): 1,000 sodium chloride 0.9% bolus, 1,000 mL, I V Bolus, Soln-IV, Once, Administer over: 60 minutes, Start Date/Time 08/03/21 23:22:00 EST, Stop Date: 08/03/21 23:22:00 EST, Rate: 1000 Communication Order, 08/03/21 23:07:00 EST, STRICT BEDREST.THANKS Communication Order, 08/03/21 23:07:00 EST, BEDSIDE COMMODE NEEDED IT. THANKS. Communication Order, 08/03/21 23:07:00 EST, URINAL AT BEDSIDE.THANK YOU Consult to General Surgery, Stat, Consu lt Reason: Lucero PATIÑO George Roman MD Provider Will Call ED Cardiopulmonary Monitoring, 08/03/21 23:07:00 EST, Once, Stop date 08/03/21 23:07:00 EST Nasogastric (NG) Tube Care, 08/04/21 0: 54:00 EST, Tube to Low Intermittent Suction, Check residuals Every 6 hrs Peripheral IV, 08/03/21 23:07:00 EST Peripheral IV, 08/03/21 23:07:00 EST Urinalysis with Reflex Culture, Urine, Clean Catch, collect Stat, 08/03/21 23:08:00 EST, Once, Nurse collect Vital Signs, 08/03/21 23:07:00 EST, catherine ry 2 hr 08/03/2021 22:59:42 ? Course:?? improve ?? Pain status:?? decreased ?? Assessment:?? exam improved ?? Patient explained in details the ER med ical-treatment plan we are providing . ER medical plan was understood very well and agreed with ??by patient. Waiting for ER tests results. ? No family members, significant other, f riends and or caregivers at bedside at this point in time. ? SCRIBE PRESENT INSIDE PATIENT'S ROOM WH ILE I WAS INTERVIEWING, EVALUATING AND EXAMINING PATIENT. ? Discussed with patient non-opioid alter natives for pain treatment. Discussed the advantages ??and disadvantages of the use of non-opioid alternatives. Patient provided ??non -opioid alternative educati onal pamphlet . Non-opioid alternatives considered were NSAIDs and Tylenol, muscle relaxants , application of heat or cold, and relaxation techniques as clinically appropriate. The patient agrees to use of opiate analgesia for control of acut e pain while in the hospital. ? I gave patient my ER ??Business Card wi th my contact information and advised to call me and or the ER [place] Nurse assigned to its care at anytime if, symptoms does not improved or if it has any ques tion regarding its medical care and ER t est results. ? Functional Status 08/09/21 Dinner Percent 76-100% 08/09/21 Current Home Treatments None 08/09/21 Activity Status ADL Bathroom privileges 08/09/21 Pressure Reducing Device for Bed Standard mattress Personal Care Provided Self Care/Independent 08/09/21 Lunch Percent 76-100% 08/09/21 ADLs Independent 08/09/21 Diet Type NPO 08/08/21 Living Environment No Living Environment Inform ation Available Lives In Single level home Lives With Spouse 08/08/21 Breakfast Percent 76-100% 08/07/21 Assistive Device None Medications albuterol 90 mcg/inh inhalation aerosol 2 puffs, Inhale, Every 6 hrs, PRN as needed for wheezing, # 1 EA, 0 Refill(s), Maintenance, Pharmacy: [id number], 2 puffs Inhale Every 6 hrs,x30 days,PRN:as needed for wheezing Start Date: 10/04/18 Stop Date: 08/04/21 Status: Completeddoxycycline hyclate 100 mg oral capsule 1 cap, Oral, BID, # 14 cap, 0 Refill(s), Maintenance, Pharmacy: [id number], 1 cap Oral BID,x7 days Start Date: 10/04/18 Stop Date: 08/04/21 Status: CompletedEliquis 5 mg oral tablet 1 tab(s), Oral, BID, # 60 tab(s), 0 Refill(s), Maintenance, Pharmacy: [facility]/pharmacy #[id number], 1 tab(s) Oral BID, 167.6 cm, 08/09/21 7:40:00 EST, Height/Length Measured, 90.9 kg, 08/09/21 7:40:00 EST, Actual Weight Start Date: 08/09/21 Status: Orderedflecainide 50 mg oral tablet 1 tabs, Oral, Every 12 hrs, # 60 tabs, 0 Refill(s), Maintenance Start Date: 07/04/18 Stop Date: 08/04/21 Status: Completedibuprofen 200 mg oral tablet 2 tabs, Oral, Every 6 hrs Start Date: 10/04/18 Stop Date: 08/04/21 Status: Completedibuprofen 600 mg oral tablet 1 tabs, Oral, Every 8 hrs, PRN As Needed for Pain, # 30 tabs, 0 Refill(s), Pharmacy: [facility], 1 tabs Oral Every 8 hrs,x7 days,PRN:As Needed for Pain Start Date: 07/04/18 Stop Date: 10/04/18 Status: Completedmeclizine 25 mg oral tablet 1 tabs, Oral, TID, PRN as needed for dizziness, # 30 tabs, 0 Refill(s), Pharmacy: [facility] #[id number], 1 tabs Oral TID,x10 days,PRN:as needed for dizziness Start Date: 10/04/18 Stop Date: 08/04/21 Status: CompletedMetoprolol Tartrate 25 mg, Oral, Tab, Start Date/Time 08/09/21 18:00:00 EST, Falls Precautions Start Date: 08/09/21 Stop Date: 08/09/21 Status: CompletedMetoprolol Tartrate 25 mg oral tablet 1 tabs, Oral, BID, # 60 tabs, 0 Refill(s), [id number], 1 tab(s) Oral BID,x30 days,167.6 cm, 08/09/21 7:40:00 EST, Height/Length Measured, 90.9 kg, 08/09/21 7:40:00 EST, Actual Weight Start Date: 08/09/21 Stop Date: 09/08/21 Status: OrderedMetoprolol Tartrate 50 mg oral tablet 1 tabs, Oral, BID, # 180 tabs Start Date: 07/04/18 Stop Date: 08/04/21 Status: CompletedMiraLax oral powder for reconstitution 17 g, Oral, Daily, dissolve in water before taking, # 255 g, 0 Refill(s), Maintenance, Pharmacy: [facility]/pharmacy #[id number], 17 g Oral Daily,x15 days,Instr:dissolve in water before taking, 90.9 kg, 08/09/21 7:40:00 EST, Actual Weight Start Date: 08/09/21 Stop Date: 08/24/21 Status: OrderedMultaq 400 mg oral tablet 1 tab(s), Oral, BID, # 60 tab(s), 0 Refill(s), Maintenance, Pharmacy: [facility]/pharmacy #[id number], 1 tab(s) Oral BID, 167.6 cm, 08/09/21 7:40:00 EST, Height/Length Measured, 90.9 kg, 08/09/21 7:40:00 EST, Actual Weight Start Date: 08/09/21 Status: Orderedomeprazole 20 mg oral delayed release capsule 1 cap, Oral, Daily, # 30 cap, 0 Refill(s), Maintenance Start Date: 08/04/21 Stop Date: 09/02/21 Status: Orderedomeprazole 20 mg oral delayed release capsule 1 cap, Oral, Daily, # 30 cap, 0 Refill(s), Maintenance Start Date: 07/04/18 Stop Date: 08/04/21 Status: Completedsimvastatin 40 mg oral tablet 1 tabs, Oral, Daily at bedtime, # 30 tabs, 0 Refill(s), Maintenance Start Date: 08/04/21 Status: Orderedsimvastatin 40 mg oral tablet 1 tabs, Oral, Daily at bedtime, # 30 tabs, 0 Refill(s), Maintenance Start Date: 07/04/18 Stop Date: 08/04/21 Status: CompletedTessalon Perles 100 mg oral capsule 1 cap, Oral, TID, PRN as needed for cough, # 30 cap, 0 Refill(s), Pharmacy: [facility]/pharmacy #[id number], 1 cap Oral TID,x10 days,PRN:as needed for cough Start Date: 10/04/18 Stop Date: 08/04/21 Status: Completed Mental Status 08/09/21 Eye Opening Response Lodi Spontaneously - 4 Best Verbal Response Yadira Oriented - 5 Best Motor Response Yadira Obeys commands - 6 Yadira Coma Score 15 Problem List Condition Effective Dates Status Health Status Informant Hx of small bowel Active obstruction(Confirmed) Hypertension(Confirmed) Active Frequent PVCs(Confirmed) Active Procedures Procedure Date Related Diagnosis Body Site Status MARTIN with Cardioversion (EN)1 08/09/21 Completed Polyp Completed 1auto-populated from documented surgical case Results Laboratory List Name Date CBC-BHSF (CBC) 08/09/21 Comprehensive Metabolic Panel (CMP) 08/09/21 Magnesium Level 08/09/21 Phosphorus Level 08/09/21 .Estimated Glomerular Filtration Rate 08/09/21 Basic Metabolic Panel - BMP (BMP) 08/08/21 CBC-BHSF (CBC) 08/08/21 .Estimated Glomerular Filtration Rate 08/08/21 POC-Glucose 08/07/21 POC-Glucose 08/07/21 POC-Glucose 08/07/21 Potassium (Blood) 08/07/21 Basic Metabolic Panel - BMP (BMP) 08/07/21 CBC with Diff 08/07/21 .Estimated Glomerular Filtration Rate 08/07/21 Scan 08/07/21 POC-Glucose 08/06/21 Magnesium Level 08/06/21 Bilirubin (Direct) 08/05/21 Comprehensive Metabolic Panel (CMP) 08/05/21 Urinalysis with Reflex Culture 08/04/21 Hemoglobin A1c - Glycosylated 08/04/21 CK (Total) 08/03/21 Comprehensive Metabolic Panel (CMP) 08/03/21 Coronavirus (SARS-CoV-2) Molecular-Rapid Test 08/03/21 PT-INR (Prothrombin Time) 08/03/21 PTT (Partial Thromb Time) 08/03/21 Troponin I High Sensitivity 08/03/21 Urine Microscopic 08/03/21 CBC with Diff 08/03/21 Hepatic Function Panel 08/03/21 Lipase Level 08/03/21 Most recent to oldest 1 2 3 [Reference Range]: SARS-CoV-2 (COVID-19) Negative [Negative] (08/03/21 11:34 PM) Troponin I High Sensitivity 6 ng/L [0-79 ng/L] (08/03/21 11:34 PM) Est. [id number] (drug 63.70 mL/min 63.70 mL/min 78.02 m L/min dosing only) (08/09/21 7:48 AM) (08/09/21 5:15 AM) (08/08/21 9:4 1 AM) WBC [3.40-11.00 K/uL] 8.16 K/uL 7.13 K/uL 5.37 K/uL (08/09/21 5:15 AM) (08/08/21 9:41 AM) (08/07/21 5:5 7 AM) RBC [4.00-5.70 M/uL ] 5.43 M/uL 5.04 M/uL 4.02 M/uL (08/09/21 5:15 AM) (08/08/21 9:41 AM) (08/07/21 5:5 7 AM) International Normalized 1.1 Ratio [0.8-1.2] (08/03/21 11:34 PM) MCV [80.0-100.0 fL] 87.1 fL 87.3 fL 88.3 fL (08/09/21 5:15 AM) (08/08/21 9:41 AM) (08/07/21 5:5 7 AM) MCHC [32.0-36.0 g/dL] 34.7 g/dL 34.3 g/dL 34.1 g/dL (08/09/21 5:15 AM) (08/08/21 9:41 AM) (08/07/21 5:5 7 AM) Nitrite [Negative] Negative (08/04/21 5:08 AM) Lipase Level [73-393 U/L] 79 U/L (08/03/21 10:26 PM) Phosphorus Level [2.5-4.9 3.6 mg/dL mg/dL] (08/09/21 5:15 AM) MCH [26.0-35.0 pg] 30.2 pg 30.0 pg 30.1 pg (08/09/21 5:15 AM) (08/08/21 9:41 AM) (08/07/21 5:5 7 AM) Magnesium Level [1.8-2.4 2.3 mg/dL 2.1 mg/dL mg/dL] (08/09/21 5:15 AM) (08/06/21 6:27 AM) MPV [7.7-13.2 fL] 9.6 fL 9.9 fL 10.0 fL (08/09/21 5:15 AM) (08/08/21 9:41 AM) (08/07/21 5:5 7 AM) Platelet Count [130-360 217 K/uL 191 K/uL 1 142 K/uL K/uL] (08/09/21 5:15 AM) (08/08/21 9:41 AM) (08/07/21 5:5 7 AM) PT - INR (Prothrombin Time) 14.3 seconds [11.1-15.5 seconds] (08/03/21 11:34 PM) Total Protein on Blood 7.6 g/dL 7.0 g/dL 6.9 g/dL [6.4-8.2 g/dL] (08/09/21 5:15 AM) (08/05/21 8:00 PM) (08/03/21 11: 34 PM) Albumin on Blood [3.4-5.0 3.1 g/dL 3.0 g/dL 3.3 g/ dL g/dL] *LOW* *LOW* *LOW* (08/09/21 5:15 AM) (08/05/21 8:00 PM) (08/03/21 11: 34 PM) Color - UR [Yellow] Yellow (08/04/21 5:08 AM) Appearance-Ur [Clear] Clear (08/04/21 5:08 AM) Specific [place] 1.013 [1.005-1.030] (08/04/21 5:08 AM) PH in Urine [5.0-8.0] 6.0 (08/04/21 5:08 AM) Glucose - Urine [Negative Negative mg/dL mg/dL] (08/04/21 5:08 AM) Bilirubin - UR [Negative] Negative (08/04/21 5:08 AM) Acetone (Ketones)-Urine Negative mg/dL [Neg mg/dL] (08/04/21 5:08 AM) Blood [Negative] Small *ABN* (08/04/21 5:08 AM) Protein, UR SCR [Negative Negative mg/dL mg/dL] (08/04/21 5:08 AM) Leukocyte Esterase Large [Negative] *ABN* (08/04/21 5:08 AM) WBCs - UR [0-2 /HPF] 129 /HPF *HI* (08/04/21 5:08 AM) RBCs - UR [0-2 /HPF] 8 /HPF *HI* (08/04/21 5:08 AM) Glucose on Blood [80-126 114 mg/dL 116 mg/dL 85 mg/d L mg/dL] (08/09/21 5:15 AM) (08/08/21 9:41 AM) (08/07/21 5:5 7 AM) BUN on Blood [8-23 mg/dL] 15 mg/dL 14 mg/dL 9 mg/d L (08/09/21 5:15 AM) (08/08/21 9:41 AM) (08/07/21 5:5 7 AM) Creatinine on Blood 1.09 mg/dL 0.89 mg/dL 0.54 mg/dL [0.60-1.30 mg/dL] (08/09/21 5:15 AM) (08/08/21 9:41 AM) *LOW* (08/07/21 5:57 AM ) BUN/Creatinine Ratio 13.8 ratio 15.7 ratio 16.7 ratio [12.0-20.0 ratio] (08/09/21 5:15 AM) (08/08/21 9:41 AM) (08/07/21 5 :57 AM) Sodium on Blood [136-145 138 mmol/L 139 mmol/L 143 mmo l/L mmol/L] (08/09/21 5:15 AM) (08/08/21 9:41 AM) (08/07/21 5:5 7 AM) Potassium on Blood [3.5-5.1 4.2 mmol/L 3.6 mmol/L 4.2 mmol/L mmol/L] (08/09/21 5:15 AM) (08/08/21 9:41 AM) (08/07/21 7:2 0 AM) Chloride on Blood [98-107 107 mmol/L 107 mmol/L 120 mm ol/L mmol/L] (08/09/21 5:15 AM) (08/08/21 9:41 AM) *HI* (08/07/21 5:57 AM ) CO2 on Blood [21-32 mmol/L] 26 mmol/L 27 mmol/L 22 m mol/L (08/09/21 5:15 AM) (08/08/21 9:41 AM) (08/07/21 5:5 7 AM) Calcium (Total) [8.5-10.1 8.8 mg/dL 8.8 mg/dL 6.6 mg /dL mg/dL] (08/09/21 5:15 AM) (08/08/21 9:41 AM) *LOW* (08/07/21 5:57 AM ) A/G Ratio [1.1-2.5 ratio] 0.7 ratio 0.8 ratio 0.9 ra tobias *LOW* *LOW* *LOW* (08/09/21 5:15 AM) (08/05/21 8:00 PM) (08/03/21 11: 34 PM) Alkaline Phosphatase on 68 U/L 64 U/L 71 U/L Blood [50-136 U/L] (08/09/21 5:15 AM) (08/05/21 8:00 PM) (08/03/21 11:34 PM) ALT (SGPT) on Blood [16-65 54 U/L 18 U/L 24 U/ L U/L] (08/09/21 5:15 AM) (08/05/21 8:00 PM) (08/03/21 11: 34 PM) AST (SGOT) on Blood [8-37 41 U/L 13 U/L 15 U/L U/L] *HI* (08/05/21 8:00 PM) (08/03/21 11:34 PM) (08/09/21 5:15 AM) % Neutrophils [40.0-70.0 %] 61.6 % 61.4 % (08/07/21 5:57 AM) (08/03/21 10:26 PM) % Lymphocytes [17.0-45.0 %] 22.3 % 29.2 % (08/07/21 5:57 AM) (08/03/21 10:26 PM) % Monocytes [3.0-12.0 %] 10.8 % 7.5 % (08/07/21 5:57 AM) (08/03/21 10:26 PM) %Eosinophils [0.0-7.0 %] 4.5 % 1.4 % (08/07/21 5:57 AM) (08/03/21 10:26 PM) % Basophils [0.0-1.0 %] 0.4 % 0.3 % (08/07/21 5:57 AM) (08/03/21 10:26 PM) Absolute Neutrophils 3.31 K/uL 7.50 K/uL [1.10-8.00 K/uL] (08/07/21 5:57 AM) (08/03/21 10:26 PM) Absolute Lymphocytes 1.20 K/uL 3.57 K/uL [0.60-3.10 K/uL] (08/07/21 5:57 AM) *HI* (08/03/21 10:26 PM) Absolute Monocytes 0.58 K/uL 0.92 K/uL [0.44-1.00 K/uL] (08/07/21 5:57 AM) (08/03/21 10:26 PM) Absolute Eosinophils 0.24 K/uL 0.17 K/uL [0.00-0.54 K/uL] (08/07/21 5:57 AM) (08/03/21 10:26 PM) Absolute Basophils 0.02 K/uL 0.04 K/uL [0.00-0.08 K/uL] (08/07/21 5:57 AM) (08/03/21 10:26 PM) % Immature Granulocytes 0.4 % 0.2 % [0.0-0.4 %] (08/07/21 5:57 AM) (08/03/21 10:26 PM) Absolute Immature 0.02 K/uL 0.03 K/uL Granulocytes [0.00-0.09 (08/07/21 5:57 AM) (08/03/21 10:26 PM) K/uL] NRBCs [0.00-0.00 /100 WBC ] 0.00 /100 WBC 0.10 /100 WBC 0.00 /100 WBC (08/09/21 5:15 AM) *HI* (08/07/21 5:57 AM) (08/08/21 9:41 AM) Hemoglobin A1C 5.7 % (Glycosylated) [4.8-5.6 %] *HI* (08/04/21 3:25 AM) Urobilinogen [<2 mg/dL] <2 mg/dL (08/04/21 5:08 AM) Anion Gap [2-15] 5 5 1 (08/09/21 5:15 AM) (08/08/21 9:41 AM) *LOW* (08/07/21 5:57 AM ) RDW CV [11.5-14.5 %] 12.5 % 12.4 % 12.2 % (08/09/21 5:15 AM) (08/08/21 9:41 AM) (08/07/21 5:5 7 AM) Abs NRBCs [0.00-.01 K/uL] 0.00 K/uL 0.01 K/uL 0.00 K /uL (08/09/21 5:15 AM) (08/08/21 9:41 AM) (08/07/21 5:5 7 AM) Globulin [2.3-3.9 g/dL] 4.5 g/dL 4.0 g/dL 3.6 g/dL *HI* *HI* (08/03/21 11:34 P M) (08/09/21 5:15 AM) (08/05/21 8:00 PM) Total Bilirubin on Blood 0.6 mg/dL 1.0 mg/dL 0.5 mg/ dL [0.2-2.0 mg/dL] (08/09/21 5:15 AM) (08/05/21 8:00 PM) (08/03/21 11: 34 PM) AST/ALT Ratio 0.8 ratio 0.7 ratio 0.6 ratio *NA* *NA* *NA* (08/09/21 5:15 AM) (08/05/21 8:00 PM) (08/03/21 11: 34 PM) PTT (Partial Thromb Time) 24.9 seconds [21.8-39.0 seconds] (08/03/21 11:34 PM) RBC Morphology Reviewed *NA* (08/07/21 5:57 AM) Large Platelets [None Seen] Present *ABN* (08/07/21 5:57 AM) Est.Average Glucose [80-126 117 mg/dL mg/dL] (08/04/21 3:25 AM) Glucose Point of Care 88 mg/dL 94 mg/dL 91 mg/dL [80-126 mg/dL] (08/07/21 9:16 PM) (08/07/21 4:50 PM) (08/07/21 11: 37 AM) Point Of Care Note CallReadBackRN *NA* (08/06/21 9:10 PM) Hemoglobin [13.0-17.2 g/dL] 16.4 g/dL 15.1 g/dL 2 12.1 g/dL (08/09/21 5:15 AM) (08/08/21 9:41 AM) *LOW* (08/07/21 5:57 AM ) Hematocrit [38.0-50.0 %] 47.3 % 44.0 % 35.5 % (08/09/21 5:15 AM) (08/08/21 9:41 AM) *LOW* (08/07/21 5:57 AM ) eGFR (CKD-EPI) if 78 mL/min/1.73 m2 3 >90 mL/min/1.73 m2 4 >90 mL/min/1.73 m2 5 Am *NA* *NA* *NA* (08/09/21 5:15 AM) (08/08/21 9:41 AM) (08/07/21 5:5 7 AM) eGFR (CKD-EPI) NonAfrican 67 mL/min/1.73 m2 6 85 mL/min/1.73 m2 7 >90 mL/min/1.73 m2 8 Am *NA* *NA* *NA* (08/09/21 5:15 AM) (08/08/21 9:41 AM) (08/07/21 5:5 7 AM) Differential Type Auto Auto Auto *NA* *NA* *NA* (08/07/21 5:57 AM) (08/07/21 5:57 AM) (08/03/21 10: 26 PM) Bacteria [None Seen /HPF] Negative /HPF (08/04/21 5:08 AM) RDW SD [35.1-43.9 fL] 39.7 fL 39.6 fL 39.3 fL (08/09/21 5:15 AM) (08/08/21 9:41 AM) (08/07/21 5:5 7 AM) Bilirubin (Direct) [0.0-0.2 0.3 mg/dL 0.2 mg/dL mg/dL] *HI* (08/03/21 10:26 PM) (08/05/21 8:00 PM) Bilirubin, Indirect 0.4 mg/dL [0.3-1.9 mg/dL] (08/03/21 10:26 PM) CK [26-308 U/L] 108 U/L (08/03/21 11:34 PM) 1Result Comment: specimen [id number] Comment: Delta history [id number] Comment: Note: The estimated glomerular filtration rate (eGFR) is calculated using the CKD-EPI 2009 formula. It is important to note that all estimates of GFR based on serum creatinine will be less accurate for patients at the extremes of muscle mass (including frail elderly, critically ill or cancer patients), those with unusual diets and those with conditions associated with reduced secretion or extra-renal elimination of creatinine. This calculation is not accurate for patients <18 years old. Confirmatory tests with exogenous measured GFR or creatinine clearance should be performed forpeople whom estimates based on serum creatinine alone may be inaccurate.4Result Comment: Note: The estimated glomerular filtration rate (eGFR) is calculated using the CKD-EPI 2009 formula. It is important to note that all estimates of GFR based on serum creatinine will be less accurate for patients at the extremes of muscle mass (including frail elderly, critically ill or cancer patients), those with unusual diets and those with conditions associated with reduced secretion or extra-renal elimination of creatinine. This calculation is not accurate for patients <18 years old. Confirmatory tests with exogenous measured GFR or creatinine clearance should be performed forpeople whom estimates based on serum creatinine alone may be inaccurate.5Result Comment: Note: The estimated glomerular filtration rate (eGFR) is calculated using the CKD-EPI 2009 formula. It is important to note that all estimates of GFR based on serum creatinine will be less accurate for patients at the extremes of muscle mass (including frail elderly, critically ill or cancer patients), those with unusual diets and those with conditions associated with reduced secretion or extra-renal elimination of creatinine. This calculation is not accurate for patients <18 years old. Confirmatory tests with exogenous measured GFR or creatinine clearance should be performed forpeople whom estimates based on serum creatinine alone may be inaccurate.6Result Comment: Note: The estimated glomerular filtration rate (eGFR) is calculated using the CKD-EPI 2009 formula. It is important to note that all estimates of GFR based on serum creatinine will be less accurate for patients at the extremes of muscle mass (including frail elderly, critically ill or cancer patients), those with unusual diets and those with conditions associated with reduced secretion or extra-renal elimination of creatinine. This calculation is not accurate for patients <18 years old. Confirmatory tests with exogenous measured GFR or creatinine clearance should be performed forpeople whom estimates based on serum creatinine alone may be inaccurate.7Result Comment: Note: The estimated glomerular filtration rate (eGFR) is calculated using the CKD-EPI 2009 formula. It is important to note that all estimates of GFR based on serum creatinine will be less accurate for patients at the extremes of muscle mass (including frail elderly, critically ill or cancer patients), those with unusual diets and those with conditions associated with reduced secretion or extra-renal elimination of creatinine. This calculation is not accurate for patients <18 years old. Confirmatory tests with exogenous measured GFR or creatinine clearance should be performed forpeople whom estimates based on serum creatinine alone may be inaccurate.8Result Comment: Note: The estimated glomerular filtration rate (eGFR) is calculated using the CKD-EPI 2009 formula. It is important to note that all estimates of GFR based on serum creatinine will be less accurate for patients at the extremes of muscle mass (including frail elderly, critically ill or cancer patients), those with unusual diets and those with conditions associated with reduced secretion or extra-renal elimination of creatinine. This calculation is not accurate for patients <18 years old. Confirmatory tests with exogenous measured GFR or creatinine clearance should be performed forpeople whom estimates based on serum creatinine alone may be inaccurate.Orders for Microbiology Reports Name Date Culture, Urine 08/08/21 Culture, Urine 08/03/21 Microbiology Reports TEST:Culture Urine STATUS:Order in Progress BODY SITE: SOURCE:Urine, Clean Catch COLLECTED DATE/TIME:08/08/21 1:15 PMPRELIMINARY REPORTNo Growth Within 24 HoursTEST:Culture Urine STATUS:Auth (Verified) BODY SITE: SOURCE:Urine, Clean Catch COLLECTED DATE/TIME:08/04/21 5:08 AMFINAL REPORT3 or More Organisms <100,000/mL Suggests Contamination, Please Resubmit Vital Signs Most recent to oldest 1 2 3 [Reference Range]: Height/Length Measured 167.6 cm 167.6 cm 167.6 cm (08/09/21 7:48 AM) (08/04/21 9:18 AM) (08/03/21 10: 04 PM) Actual Weight 90.9 kg 90.9 kg 90.9 kg (08/09/21 7:48 AM) (08/04/21 9:18 AM) (08/03/21 10: 04 PM) Blood Pressure [91-140/90 135/80 mmHg 120/81 mmHg 121/78 mmHg mmHg] (08/09/21 7:22 PM) (08/09/21 4:51 PM) (08/09/21 2:4 2 PM) Body Mass Index Measured 32.36 kg/m2 32.36 kg/m2 32.36 k g/m2 (08/09/21 7:48 AM) (08/04/21 9:18 AM) (08/03/21 10: 04 PM) SpO2 [90-100 %] 96 % 96 % 96 % (08/09/21 7:22 PM) (08/09/21 2:43 PM) (08/09/21 10: 43 AM) Temperature Axillary 36.7 Deg C 36.7 Deg C [35.6-37.2 Deg C] (08/09/21 9:08 AM) (08/09/21 9:08 AM) Temperature Oral [36.1-37.9 36.5 Deg C 37.6 Deg C 37.6 Deg C Deg C] (08/09/21 7:48 AM) (08/05/21 5:33 AM) (08/05/21 12: 54 AM) Temperature Tympanic 36.4 Deg C (08/03/21 10:04 PM) Peripheral Pulse Rate 102 bpm 78 bpm 89 bpm [50-100 bpm] *HI* (08/05/21 12:42 PM) (08/05/21 5:33 AM) (08/09/21 7:48 AM) Heart Rate Monitored [50-100 73 bpm 84 bpm 84 bpm bpm] (08/09/21 7:22 PM) (08/09/21 4:51 PM) (08/09/21 2:4 3 PM) Respiratory Rate [12-20 20 br/min 20 br/min 20 br/mi n br/min] (08/09/21 2:43 PM) (08/09/21 10:43 AM) (08/09/21 9: 35 AM) Mean Arterial Pressure, Cuff 97 mmHg 91 mmHg 91 mmHg (08/09/21 7:22 PM) (08/09/21 2:42 PM) (08/09/21 10: 43 AM) Blood Pressure Location Right arm Right arm Right ar m (08/09/21 2:42 PM) (08/09/21 10:43 AM) (08/09/21 9: 35 AM) Temperature Route Oral Oral Oral (08/09/21 2:42 PM) (08/09/21 10:43 AM) (08/09/21 7: 30 AM) Blood Pressure Method Automatic Automatic Automatic (08/09/21 2:42 PM) (08/09/21 10:43 AM) (08/09/21 7: 30 AM) Temperature, Monitor 36.8 Deg C 36.7 Deg C 36.5 Deg C [36.1-37.9 Deg C] (08/09/21 7:22 PM) (08/09/21 2:42 PM) (08/09/21 1 0:43 AM) Blood Pressure Position Lying down Lying down Sitting (08/09/21 2:42 PM) (08/09/21 10:43 AM) (08/09/21 9: 35 AM) Social History Social History Type Response Smoking Status Former smoker, quit more roly n 30 days ago entered on: 08/09/21 Sex Male 1quit 12 years ago Hospital Discharge Instructions Patient Jcwpwzayk55/25/2022 17:31:15Atrial Fibrillation, Uglm-ye-FnguOraltn Fibrillation Atrial fibrillation is a type of heartbeat that is irregular or fast (rapid). If you have this condition, your heart beats without any order. This makes it hard for your heart to pump blood in a normalway. Having this condition gives you more risk for stroke, heart failure, and other heart problems. Atrial fibrillation may start all of a sudden and then stop on its own, or it may become a long-lasting problem. What are the causes? This condition may be caused by heart conditions, such as: ??? High blood pressure. ??? Heart failure. ??? Heart valve disease. ??? Heart surgery. Other causes include: ??? Pneumonia. ??? Obstructive sleep apnea. ??? Lung cancer. ??? Thyroid disease. ??? Drinking too much alcohol. Sometimes the cause is not known. What increases the risk? You are more likely to develop this condition if: ??? You smoke. ??? You are older. ??? You have diabetes. ??? You are overweight. ??? You have a family history of this condition. ??? You exercise often and hard. What are the signs or symptoms? Common symptoms of this condition include: ??? A feeling like your heart is beating very fast. ??? Chest pain. ??? Feeling short of breath. ??? Feeling light-headed or weak. ??? Getting tired easily. Follow these instructions at home: Medicines ??? Take poog-oka-qrshnag and prescription medicines only as told by your doctor. ??? If your doctor gives you a blood-thinning medicine, take it exactly as told. Taking too much of it can cause bleeding. Taking too little of it does not protect you against clots. Clots can cause a stroke. Lifestyle ??? Do not use any tobacco products. These include cigarettes, chewing tobacco, and e-cigarettes. Ifyou need help quitting, ask your doctor. ??? Do not drink alcohol. ??? Do not drink beverages that have caffeine. These include coffee, soda, and tea. ??? Follow diet instructions as told by your doctor. ??? Exercise regularly as told by your doctor. General instructions ??? If you have a condition that causes breathing to stop for a short period of time (apnea), treat it as told by your doctor. ??? Keep a healthy weight. Do not use diet pills unless your doctor says they are safe for you. Dietpills may make heart problems worse. ??? Keep all follow-up visits as told by your doctor. This is important. Contact a doctor if: ??? You notice a change in the speed, rhythm, or strength of your heartbeat. ??? You are taking a blood-thinning medicine and you see more bruising. ??? You get tired more easily when you move or exercise. ??? You have a sudden change in weight. Get help right away if: ??? You have pain in your chest or your belly (abdomen). ??? You have trouble breathing. ??? You have blood in your vomit, poop, or pee (urine). ??? You have any signs of a stroke. BE FAST is an easy way to remember the main warning signs: ??? B - Balance. Signs are dizziness, sudden trouble walking, or loss of balance. ??? E - Eyes. Signs are trouble seeing or a change in how you see. ??? F - Face. Signs are sudden weakness or loss of feeling in the face, or the face or eyelid drooping on one side. ??? A - Arms. Signs are weakness or loss of feeling in an arm. This happens suddenly and usually on one side of the body. ??? S - Speech. Signs are sudden trouble speaking, slurred speech, or trouble understanding what people say. ??? T - Time. Time to call emergency services. Write down what time symptoms started. ??? You have other signs of a stroke, such as: ??? A sudden, very bad headache with no known cause. ??? Feeling sick to your stomach (nausea). ??? Throwing up (vomiting). ??? Jerky movements you cannot control (seizure). These symptoms may be an emergency. Do not wait to see if the symptoms will go away. Get medical help right away. Call your local emergency services (911 in the [place] Do not drive yourself to the hospital. Summary ??? Atrial fibrillation is a type of heartbeat that is irregular or fast (rapid). ??? You are at higher risk of this condition if you smoke, are older, have diabetes, or are overweight. ??? Follow your doctor's instructions about medicines, diet, exercise, and follow-up visits. ??? Get help right away if you think that you have signs of a stroke. This information is not intended to replace advice given to you by your health care provider. Make sure you discuss any questions you have with your health care provider. Document Released: 04/10/2009 Document Revised: 09/05/2018 Document Reviewed: 08/23/2018 [employer] Patient Education ?? 2020 [employer] 08/09/2021 17:31:12Preventing Atrial Fibrillation-Related StrokePreventing Atrial Fibrillation-Related Stroke Atrial fibrillation is a common type of irregular or rapid heartbeat (arrhythmia) that greatly increases your risk for a stroke. In atrial fibrillation, the top portions of the heart (atria) beat out of sync with the lower portions of the heart. When the muscles of the atria are tightening in an uncoordinated way (fibrillating), blood can pool in the heart and form clots. If a clot travels to the brain, it can cause a stroke. This type of stroke is preventable. Understanding atrial fibrillation and knowing how to properly manage it can prevent you from having a stroke. What increases my risk for a stroke? If you have atrial fibrillation, you may be at increased risk for a stroke if you also: ??? Have heart failure. ??? Have high blood pressure. ??? Are older than age 65. ??? Have diabetes. ??? Have a history of vascular disease, such as heart attack or stroke. ??? Are female. If you have atrial fibrillation and you also have one or more of those risk factors, talk with your health care provider about treatments that can prevent a stroke. Other risk factors for a stroke include: ??? Smoking. ??? High cholesterol. ??? Diabetes. ??? Being inactive (sedentary lifestyle). ??? Having a family history of stroke. ??? Eating a diet that is high in fat, cholesterol, and salt. What treatments help to manage atrial fibrillation? The main goals of treatment for atrial fibrillation are to prevent blood clots from forming and to keep your heart beating at a normal rate and rhythm. Treatment may include: ??? Blood-thinning medicine (anticoagulant) that helps to prevent clots from forming. This medicine also increases the risk of bleeding. Talk with your health care provider about the risks and benefitsof taking anticoagulants. ??? Medicine that slows the heart rate or brings the heart rhythm back to normal. ??? Electrical cardioversion. This is a procedure that resets the heart's rhythm by delivering a controlled, low-energy shock through your skin to your heart. ??? An ablation procedure, such as catheter ablation, catheter ablation with pacemaker, or surgical ablation. These procedures destroy the heart tissues that send abnormal signals so that heart rhythmscan be improved or made normal. A pacemaker is a device that is placed under the skin to help the heart beat in a regular rhythm. How can I prevent atrial fibrillation-related stroke? Medicines ??? Take ludk-gom-qzifdlp and prescription medicines only as told by your health care provider. ??? If your health care provider prescribed an anticoagulant, take it exactly as told. Taking too much blood-thinning medicine can cause bleeding. If you do not take enough blood-thinning medicine, youwill not have the protection that you need against stroke and other problems. Eating and drinking ??? Eat healthy foods, including at least 5 servings of fruits and vegetables a day. ??? Do not drink alcohol. ??? Do not drink beverages that contain caffeine, such as coffee, soda, and tea. ??? Follow dietary instructions as told by your health care provider. Managing other medical conditions ??? Manage and be aware of your blood pressure. If you have high blood pressure, follow your treatment plan to keep it in your target range. ??? Have your cholesterol checked as often as recommended by your health care provider. If you have high cholesterol, follow your treatment plan to lower it and keep it in your target range. ??? Talk with your health care provider about symptoms to watch for. Some people may not have any symptoms, so it can be hard to know that they have atrial fibrillation. Talk with your health care provider if you experience: ??? A feeling that your heart is beating rapidly or irregularly. ??? An irregular pulse. ??? A feeling of discomfort or pain in your chest. ??? Shortness of breath. ??? Sudden light-headedness or weakness. ??? Tiredness (fatigue) that happens easily during exercise. ??? If you have obstructive sleep apnea (ANALY), manage your condition as told by your health care provider. General instructions ??? Maintain a healthy weight. Do not use diet pills unless your health care provider approves. Dietpills may make heart problems worse. ??? Exercise regularly. Get at least 30 minutes of activity on most or all days, or as told by your health care provider. ??? Do not use any products that contain nicotine or tobacco, such as cigarettes and e-cigarettes. If you need help quitting, ask your health care provider. ??? Do not use drugs, such as cocaine and amphetamines. ??? Keep all follow-up visits as told by your health care providers. This is important. These include visits with your physical security specialist. Where to find more information You may find more information about preventing atrial fibrillation-related stroke from: ??? National Stroke Association (AFib-Stroke Connection): www.stroke.org Contact a health care provider if: ??? You notice a change in the rate, rhythm, or strength of your heartbeat. ??? You have dizziness. ??? You are taking an anticoagulant and you have more bruises than usual. ??? You tire out more easily when you exercise or do similar activities. Get help right away if: ??? You have chest pain. ??? You have pain in your abdomen. ??? You experience unusual sweating or weakness. ??? You take anticoagulants and you: ??? Have severe headaches or confusion. ??? Have blood in your vomit, bowel movement, or urine. ??? Have bleeding that will not stop. ??? Fall or injure your head. ??? You have any symptoms of a stroke. BE FAST is an easy way to remember the main warning signs of a stroke: ??? B - Balance. Signs are dizziness, trouble walking, or loss of balance. ??? E - Eyes. Signs are trouble seeing or a sudden change in vision. ??? F - Face. Signs are sudden weakness or numbness of the face, or the face or eyelid drooping on one side. ??? A - Arms. Signs are weakness or numbness in an arm. This happens suddenly and usually on one side of the body. ??? S - Speech. Signs are sudden trouble speaking, slurred speech, or trouble understanding what people say. ??? T - Time. Time to call emergency services. Write down what time symptoms started. ??? You have other signs of a stroke, such as: ??? A sudden, severe headache with no known cause. ??? Nausea or vomiting. ??? Seizure. These symptoms may represent a serious problem that is an emergency. Do not wait to see if the symptoms will go away. Get medical help right away. Call your local emergency services (911 in the [place] Do not drive yourself to the hospital. Summary ??? Having atrial fibrillation increases the risk for a stroke. Talk with your health care provider about what symptoms to watch for. ??? Atrial fibrillation-related stroke is preventable. Proper management of atrial fibrillation can prevent you from having a stroke. ??? Talk with your health care provider about whether anticoagulant medicine is right for you. ??? Learn the warning signs of a stroke and remember BE FAST. This information is not intended to replace advice given to you by your health care provider. Make sure you discuss any questions you have with your health care provider. Document Released: 10/17/2017 Document Revised: 10/27/2019 Document Reviewed: 10/17/2017 [employer] Patient Education ?? 2019 [employer] Follow Up Care08/03/2021 22:04:28With:Delon Aranda MD, Cardiovascular Disease, Vascular Medicine [address] [address] [facility] [place] [address]- Business (1) When:1 to 2 weeks Comments:Call for followup appointmentWith:Mark Palacios MD, Hospitalist, Internal Medicine Address: [address] [place], [place] [id number]- [phone] Business (1) When:1 to 2 weeks Comments:Call for followup appointment Care Team PersonnelName: No PCP, NO PCP
--- OUTSIDE RECORDS SUMMARY | 2022-06-19 22:36 | XMS_ITS | Continuity of Care Document ---
:1950 Author Organization [facility] Address [id number] [place] [id number]- Care Team Providers Name Role Phone No PCP, NO PCP Primary Care Physician Unavailable Encounter Date(s): 10/11/21 - 10/11/21 [facility] [id number] [id number] Encounter Diagnosis Allergic rash present (Discharge Diagnosis) - 10/11/21 Discharge Disposition: Home Attending Physician: Phoenix Mcdermott MD Admitting Physician: Phoenix Mcdermott MD Allergies, Adverse Reactions, Alerts No Known Medication Allergies Medications albuterol 90 mcg/inh inhalation aerosol 2 puffs, Inhale, Every 6 hrs, PRN as needed for wheezing, # 1 EA, 0 Refill(s), Maintenance, Pharmacy: [facility]/pharmacy #[id number], 2 puffs Inhale Every 6 hrs,x30 days,PRN:as needed for wheezing Start Date: 10/04/18 Stop Date: 08/04/21 Status: Completeddoxycycline hyclate 100 mg oral capsule 1 cap, Oral, BID, # 14 cap, 0 Refill(s), Maintenance, Pharmacy: [facility]/pharmacy #[id number], 1 cap Oral BID,x7 days Start Date: 10/04/18 Stop Date: 08/04/21 Status: CompletedEliquis 5 mg oral tablet 5 mg, Oral, Every 12 hrs, # 60 tabs, 0 Refill(s), Maintenance Start Date: 10/11/21 Stop Date: 11/10/21 Status: OrderedEliquis 5 mg oral tablet 1 tab(s), Oral, BID, # 60 tab(s), 0 Refill(s), Maintenance, Pharmacy: [facility]/pharmacy #[id number], 1 tab(s) Oral BID, 167.6 cm, 08/09/21 7:40:00 EST, Height/Length Measured, 90.9 kg, 08/09/21 7:40:00 EST, Actual Weight Start Date: 08/09/21 Status: Orderedflecainide 50 mg oral tablet 1 tabs, Oral, Every 12 hrs, # 60 tabs, 0 Refill(s), Maintenance Start Date: 07/04/18 Stop Date: 08/04/21 Status: CompletedhydrOXYzine hydrochloride 50 mg oral tablet 1 tabs, Oral, TID, PRN allergy symptoms, # 20 tab(s), 0 Refill(s), 10/18/21, Pharmacy: [facility]/pharmacy #[id number], 1 tab(s) Oral TID,PRN:allergy symptoms, GENERIC OK, 167.6 cm, 08/09/21 7:40:00 EST, Height/Length Measured, 90.9 kg, 08/09/21 7:40:00 EST, Actua... Start Date: 10/11/21 Stop Date: 10/18/21 Status: Orderedibuprofen 200 mg oral tablet 2 tabs, Oral, Every 6 hrs Start Date: 10/04/18 Stop Date: 08/04/21 Status: Completedibuprofen 600 mg oral tablet 1 tabs, Oral, Every 8 hrs, PRN As Needed for Pain, # 30 tabs, 0 Refill(s), Pharmacy: [facility], 1 tabs Oral Every 8 hrs,x7 days,PRN:As Needed for Pain Start Date: 07/04/18 Stop Date: 10/04/18 Status: Completedmeclizine 25 mg oral tablet 1 tabs, Oral, TID, PRN as needed for dizziness, # 30 tabs, 0 Refill(s), Pharmacy: [facility]/pharmacy #[id number], 1 tabs Oral TID,x10 days,PRN:as needed for dizziness Start Date: 10/04/18 Stop Date: 08/04/21 Status: CompletedMetoprolol Tartrate 25 mg oral tablet 1 tabs, Oral, BID, # 60 tabs, 0 Refill(s), Pharmacy: [facility]/pharmacy #[id number], 1 tab(s) Oral BID,x30 days,167.6 cm, [...] # 255 g, 0 Refill(s), Maintenance, [id number], 17 g Oral Daily,x15 days,Instr:dissolve in water before taking, 90.9 kg, 08/09/21 7:40:00 EST, Actual Weight Start Date: 08/09/21 Stop Date: 08/24/21 Status: Orderedomeprazole 20 mg oral delayed release [...] cough, # 30 cap, 0 Refill(s), Pharmacy: [facility]/pharmacy #[id number], 1 cap Oral TID,x10 days,PRN:as needed for cough Start Date: 10/04/18 Stop Date: 08/04/21 Status: Completedtriamcinolone 0.5% topical cream 1 appl, Topical, TID, X 14 days, # 60 g, 0 Refill(s), Acute, Pharmacy: [facility]/pharmacy #[id number], 1 appl Topical TID,x14 days, 167.6 cm, 08/09/21 7:40:00 EST, Height/Length Measured, 90.9 kg, 08/09/21 7:40:00EST, Actual Weight Start Date: 10/11/21 Stop Date: 10/25/21 Status: Ordered Mental Status 10/11/21 Eye Opening Response Yadira Spontaneously - 4 Best Verbal Response [place] Oriented - 5 Best Motor Response [place] Obeys commands - 6 [place] Coma Score 15 Problem List Condition Effective Dates Status Health Status Informant Hx of small bowel Active obstruction(Confirmed) Hypertension(Confirmed) Active Frequent PVCs(Confirmed) Active Procedures Procedure Date Related Diagnosis Body Site Status MARTIN with Cardioversion (EN)1 08/09/21 Completed Polyp Completed 1auto-populated from documented surgical case Vital Signs Most recent to oldest [Reference Range]: 1 Blood Pressure [91-140/90 mmHg] 139/73 mmHg (10/11/21 9:47 AM) SpO2 [90-100 %] 98 % (10/11/21 9:47 AM) Temperature Temporal Artery [36.5-38 Deg C] 36.6 Deg C (10/11/21 9:47 AM) Peripheral Pulse Rate [50-100 bpm] 67 bpm (10/11/21 9:47 AM) Respiratory Rate [12-20 br/min] 16 br/min (10/11/21 9:47 AM) Social History Social History Type Response Smoking Status Former smoker, quit more roly n 30 days ago entered on: 08/09/21 Sex Male 1quit 12 years ago Hospital Discharge Instructions Patient Hephpbnoy96/29/2022 10:45:17Allergies, Adult, Qwoe-tg-IlbwNdqtocyux, Adult An allergy means that your body reacts to something that bothers it (allergen). This can happen fromsomething that you eat, breathe in, or touch. Allergies often affect the nose, eyes, skin, and stomach. They can be mild, moderate, or very bad (severe). An allergy cannot spread from person to person. They can happen at any age. Sometimes, peopleoutgrow them. What are the causes? Outdoor things, such as pollen, car fumes, and mold. ??? Indoor things, such as dust, smoke, mold, and pets. ??? Foods. ??? Medicines. ??? Things that bother your skin, such as perfume and bug bites. What increases the risk? Having family members with allergies or asthma. What are the signs or symptoms? Symptoms depend on how bad your allergy is. Mild to moderate symptoms ??? Runny nose, stuffy nose, or sneezing. ??? Itchy mouth, ears, or throat. ??? A feeling of mucus dripping down the back of your throat. ??? Sore throat. ??? Eyes that are itchy, red, watery, or puffy. ??? A skin rash, or red, swollen areas of skin (hives). ??? Stomach cramps or bloating. Severe symptoms Very bad allergies to food, medicine, or bug bites may cause a very bad allergy reaction (anaphylaxis). This can be life-threatening. Symptoms include: ??? A red face. ??? Wheezing or coughing. ??? Swollen lips, tongue, or mouth. ??? Tight or swollen throat. ??? Chest pain or tightness, or a fast heartbeat. ??? Trouble breathing or shortness of breath. ??? Pain in your belly (abdomen), vomiting, or watery poop (diarrhea). ??? Feeling dizzy or fainting. How is this treated? Treatment for this condition depends on your symptoms. Treatment may include: ??? Cold, wet cloths for itching and swelling. ??? Eye drops, nose sprays, or skin creams. ??? Washing out your nose each day. ??? A humidifier. ??? Medicines. ??? A change to the foods you eat. ??? Being exposed again and again to tiny amounts of allergens. This helps your body get used to them. You might have: ??? Allergy shots. ??? Very small amounts of allergen put under your tongue. ??? An emergency shot (auto-injector pen) if you have a very bad allergy reaction. ??? This is a medicine with a needle. You can put it into your skin by yourself. ??? Your doctor will teach you how to use it. Follow these instructions at home: Medicines ??? Take or apply igfg-wdc-jbwhgyp and prescription medicines only as told by your doctor. ??? If you are at risk for a very bad allergy reaction, keep an auto-injector pen with you all the time. Eating and drinking ??? Follow instructions from your doctor about what to eat and drink. ??? Drink enough fluid to keep your pee (urine) pale yellow. General instructions ??? If you have ever had a very bad allergy reaction, wear a medical alert bracelet or necklace. ??? Stay away from things that you are allergic to. ??? Keep all follow-up visits as told by your doctor. This is important. Contact a doctor if: ??? Your symptoms do not get better with treatment. Get help right away if: ??? You have symptoms of a very bad allergy reaction. These include: ??? A swollen mouth, tongue, or throat. ??? Pain or tightness in your chest. ??? Trouble breathing. ??? Being short of breath. ??? Dizziness. ??? Fainting. ??? Very bad pain in your belly. ??? Vomiting. ??? Watery poop. These symptoms may be an emergency. Do not wait to see if the symptoms will go away. Get medical help right away. Call your local emergency services (911 in the [place] Do not drive yourself to the hospital. Summary ??? Take or apply oyvy-wpt-obapqbc and prescription medicines only as told by your doctor. ??? Stay away from things you are allergic to. ??? If you are at risk for a very bad allergy reaction, carry an auto-injector pen all the time. ??? Wear a medical alert bracelet or necklace. ??? Very bad allergy reactions can be life-threatening. Get help right away. This information is not intended to replace advice given to you by your health care provider. Make sure you discuss any questions you have with your health care provider. Document Revised: 05/12/2020 Document Reviewed: 05/12/2020 [employer] Patient Education ?? 2020 [employer] Follow Up Care10/11/2021 09:34:03With:Follow up with [facility] Address:Unknown When: UnknownWith:Physician Referral Service [facility] Address: Please call for physicians referral information [place] [employer], [place] [phone] Business (1) When:1 to 2 days Comments:Please follow up with your PCP in 1-2 days even if well or call our Physicians Referral Service for a PCP that meets your insurance and geogrphical needs. Please return to the Urgent Care Center or go to the nearest ED if your condition worsens or fails to improve.With:Follow-up by physical therapist clinic director for further evaluation, call physician referral line for an appointment Address:Unknown When: UnknownWith:Follow-up with PCP in 2 days Address:Unknown When: Unknown Care Team PersonnelName: No PCP, NO PCP
--- OUTSIDE RECORDS SUMMARY | 2022-06-19 22:36 | XMS_ITS | Encounter Summary ---
:1950 Author Organization [facility] Address [address] [place] [id number] Support Name Relationship Address Phone BRIDGER ARNOLD Unavailable [address] [place] [address] BRIDGER ARNOLD Unavailable Unavailable Insurance Providers: All [...] Policy Number Parekh UNITED MEDICARE MCR Jul 16, [address] [id number] [employer] (WNR) 2017 24 0 [facility] (WNR) Selected Encounter This section includes the information on record at [place] for the Encounter. Date/Time Encounter Type Encounter Description Reason Provider Source Apr 13, 2022 12:00 Outpatient Encounter EVENT (HISTORICAL) AM [facility] Encounter Template Text not used by [place] Plan of Treatment: Future Appointments (+ 6 months) and Future Tests (+/- 45 days) The Plan of Treatment section includes future care activities for the patient from all [facility]. This section includes future appointments and [...] the Encounter. The data comes from all [place] treatment facilities. Test Date/Time Test Type Test Details Facility Name Apr 13, 2022 12:00 AM Laboratory - CREATININE ([facility] BLOOD [facility] (SST-SERUM) SP Lab Results: +/- 30 days of the encounter This section includes the Chemistry and Hematology Lab Results on record with [place] for the patient. Radiology Reports and Pathology Reports are provided separately, in subsequent sections.Lab Results This section contains the Chemistry/Hematology Results that were resulted 30 days before or 30 daysafter the date of the Encounter. Date/Time Source Result Type Result - Unit Interpretation Reference Range Comment Apr 13, 2022 10:23 [place] [facility] URINALYSIS Specimen Typ e: URINE AM [place] [facility] No comment enter ed. Ordering Provid er: MALACHI RODRIGUEZ Report Released Date/Time: Apr 13, 2022 09:55 AM Reporting [facility] [place] [facility] [address] [address] Performing Lab: [facility] [place] [facility] [address] [facility] [address] UA COLOR Yellow Yellow UA APPEARANCE Clear Clear UA GLUCOSE Negative Negative UA KETONES Negative Neg UA BLOOD Negative Neg UA PROTEIN Negative Neg UA NITRITE Negative Neg UA BILIRUBIN Negative Neg UA SPECIFIC GRAVITY 1.017 1.016-1.02 2 UA pH 6.0 5.0-9.0 UA UROBILINOGEN 2.0 <2.0 UA LEUKOCYTE ESTERASE Negative Neg Apr 13, 2022 [facility]CREATININE RATIO Specim en Type: URINE 10:23 AM [place] [facility] PANEL, URINE No comment enter ed. Ordering Provid er: MALACHI RODRIGUEZ Report Released Date/Time: Apr 13, 2022 09:55 AM Reporting [facility] [place] [facility] [address] [facility] [address] Performing [facility]: [facility] [place] [facility] [address] [facility] [address] CREATININE URINE 102.65 UR PROTEIN/CREATININE RATIO 0.1 <0 .2 PROTEIN, URINE 11.1 0.0-20.0 Apr 13, 2022 [facility] LIPID [facility] FASTING Specimen Ty pe: SERUM 10:23 AM [place] [facility] No comment enter ed. Ordering Provid er: MALACHI RODRIGUEZ Report Released Date/Time: Apr 12, 2022 09:17 AM Reporting Lab: [place] [facility] [place] [facility] [address] [address] Performing Lab: [place] [facility] [place] [facility] [address] [facility] [address] CHOLESTEROL 150 <7-199 TRIGLYCERIDE 137 0-150 LDL calculated 84 0-129 CHOL/HDL 3.8 HDL CHOLESTEROL 39 L 40-60 Apr 13, 2022 [facility] BASIC METABOLIC Specimen Type: SERUM 10:23 AM [place] [facility] PANEL (fasting) No comment enter ed. Ordering Provid er: MALACHI RODRIGUEZ Report Released Date/Time: Apr 12, 2022 09:17 AM Reporting Lab: [place] [facility] [place] [facility] [address] [address] Performing Lab[facility] [place] [facility] [address] [facility] [address] UREA NITROGEN 11 7-25 GLUCOSE 97 65-100 SODIUM 139 135-145 POTASSIUM 4.1 3.5-5.0 CHLORIDE 106 100-110 CO2 24 20-30 CREATININE, Serum 0.83 0.50-1.40 eGFR(CKD-EPI 2020) >90 >60 Apr 13, 2022 10:23 [facility] LIVER FUNCTION Specimen Typ e: SERUM AM [place] [facility] No comment enter ed. Ordering Provid er: MALACHI RODRIGUEZ Report Released Date/Time: Apr 12, 2022 09:17 AM Reporting Lab: [place] [facility] [place] [facility] [address] [address] Performing Lab: [place] [facility] [place] [facility] [address] [address] PROTEIN,TOTAL 7.2 6.0-8.3 ALBUMIN 3.8 3.5-5.0 ALKALINE PHOSPHATASE 66 40-150 AST 18 5-34 ALT 21 <6-55 BILIRUBIN, TOTAL 0.4 0.2-1.2 Apr 13, 2022 [place] [facility] HEMOGLOBIN A1C Specimen Type: BLOOD 10:23 AM [facility] PANEL Comment: Values obtained from A1C measurements [...] Lab: [facility] [facility] [address] [facility] [address] Performing Lab: [facility] [address] [address] HEMOGLOBIN A1C 5.2 4.0-5.6 Apr 13, 2022 10:23 AM [facility] [place] TSH Specimen Type: SERUM HCS No comment enter ed. Ordering Provid er: MALACHI RODRIGUEZ Report Released Date/Time: Apr 12, 2022 09:17 AM Reporting Lab: [facility] [facility] [address] [facility] [address] Performing Lab: [facility] [address] [facility] [address] TSH 1.19 0.35-5.00 Apr 13, 2022 [facility] CBC AND DIFF Specimen Type: BLOOD 10:23 AM [facility] (AUTO) No comment enter ed. Ordering Provid er: MALACHI RODRIGUEZ Report Released Date/Time: Apr 12, 2022 09:17 AM Reporting Lab: [facility] [address] [facility] [address] Performing Lab: [facility] [address] [facility] [address] WBC 5.83 4.50-11.00 RBC 4.91 4.23-5.66 HGB 14.7 12.8-17 HCT 42.5 39.2-50.4 MCV 86.6 82-99 MCHC 34.6 30.8-35.1 PLT 171 140-360 RDW-CV 12.0 12.0-16.0 [facility], Abs 0.72 0.30-1.10 MCH 29.9 26.2-32.6 Neut % 47.9 Lymph % 36.0 [facility] % 12.3 Eos % 3.1 Baso % [...] /min 96 % 3 214 lb 35 [place] 2021 09:30 /min mm[Hg] [facility] AM [facility] Social History: Smoking Status (Most current) and Tobacco Use (All prior to encounter date) This section includes the most current, and the historical, smoking and tobacco-related health factors from the [place] facility where the Encounter took place.Current Smoking Status This section includes the most current smoking, or tobacco-related health factor, from the [place] facility where the Encounter took place. Date/Time Current Smoking Status Comment Facility Apr 13, 2022 09:30 AM VA-TOBACCO FORMER USER [place] [facility] [place] [facility] Tobacco Use History This section includes a history of the smoking, or tobacco- related health factors, that were collected on or before the date of the Encounter. The data comes from the [place] facility where the Encounter took place. Date/Time Smoking Status/Tobacco Use Comment [facility] Apr 13, 2022 09:30 AM VA-TOBACCO QUIT 5 TO < 15 YRS [facility] [place] [facility] Apr 12, 2021 11:30 AM VA-TOBACCO FORMER USER [facility] [place] [facility] Apr 12, 2021 11:30 AM VA-TOBACCO QUIT 5 TO < 15 YRS [facility] [place] [facility] Mar 19, 2020 09:00 AM VA-TOBACCO FORMER USER [facility] [place] [facility] Mar 19, 2020 09:00 AM VA-TOBACCO QUIT 5 TO < 15 YRS [place] [facility] [place] [facility] December 12, 2018 10:18 AM VA-TOBACCO FORMER USER [place] [facility] [place] [facility] December 12, 2018 10:18 AM VA-TOBACCO QUIT 5 TO < 15 YRS [place] [facility] [place] [facility] Jan 21, 2018 07:50 AM QUIT TOBACCO USE > 7 YEARS [place] [facility] [place] [facility] Dec 25, 2016 10:59 AM QUIT TOBACCO USE > 7 YEARS [place] [facility] [place] [facility] Advance Directives: All historical and current Section Date Range: From patient's date of to the date document was created. This section includes ALL of a patient's completed or amended [place] Advance and Rescinded Directives. The entries below indicate that a directive exists for the patient, but an actual copy is not included with this document. The data comes from all [place] facilities. Date Advance Directives Provider Source May 23, 2015 ADVANCE DIRECTIVE AMBER PENA [facility]
--- OUTSIDE RECORDS SUMMARY | 2022-06-19 22:36 | XMS_ITS ---
:1950 Author Organization [facility] Address [address] [place] [address]- Encounter Date(s): 10/04/18 - 10/04/18 [facility] [address] [place] [address]- [phone] Encounter Diagnosis Vertigo (Discharge Diagnosis) - 10/04/18 Acute bronchitis (Discharge Diagnosis) - 10/04/18 Discharge Disposition: Home Attending Physician: Mark Diaz MD Admitting Physician: Mark Diaz MD Reason for Visit sore throat, vertigo, cold Vital Signs Most recent to oldest [Reference Range]: 1 Height/Length Measured [124.5-243.8 cm] 167.6 cm (10/04/18 10:08 AM) Actual Weight 88.6 kg (10/04/18 10:08 AM) Blood Pressure [91-140/90 mmHg] 109/68 mmHg (10/04/18 10:08 AM) Body Mass Index Measured 31.54 kg/m2 (10/04/18 10:08 AM) Problem List Condition Effective Dates Status Health Status Informant Frequent PVCs(Confirmed) Active Allergies, Adverse Reactions, Alerts No Known Medication Allergies Medications albuterol (albuterol 90 mcg/inh inhalation aerosol) 2 Puffs Inhalation every 6 hours as need ed as needed for wheezing for 30 Days. Refills: 0. Ordering provider: Mark Diaz MD benzonatate (Tessalon Perles 100 mg oral capsule) 1 Capsules Oral 3 times a day as needed as needed for cough for 10 Days. Refills: 0. Ordering provider: Mark Diaz MD doxycycline (doxycycline hyclate 100 mg oral capsule) 1 Capsules Oral 2 times a day for 7 Days. Refills: 0. Ordering provider: Mark Diaz MD flecainide (flecainide 50 mg oral tablet) 1 tabs Oral every 12 hours. ibuprofen (ibuprofen 200 mg oral tablet) 2 tabs Oral every 6 hours. ibuprofen (ibuprofen 600 mg oral tablet) 1 tabs Oral every 8 hours as needed As Needed for Pain for 7 Days. Refills: 0. Ordering provider: Radha Thorpe DO meclizine (meclizine 25 mg oral tablet) 1 tabs Oral 3 times a day as needed as n eeded for dizziness for 10 Days. Refills: 0. Ordering provider: Mark Diaz MD metoprolol (Metoprolol Tartrate 50 mg oral tablet) 1 tabs Oral 2 times a day. omeprazole (omeprazole 20 mg oral delayed release caps ule) 1 Capsules Oral every day. simvastatin (simvastatin 40 mg oral tablet) 1 tabs Oral Daily at bedtime. Results Most recent to oldest [Reference Range]: 1 Influenza B Antigen [Negative] Negative 1 (10/04/18 10:35 AM) Influenza A Antigen [Negative] Negative 2 (10/04/18 10:35 AM) 1Result Comment: This result does not exclude Influenza or other viral infections.2Result Comment: This result does not exclude Influenza or other viral infections. Procedures Procedure Date Related Diagnosis Body Site Status Polyp Completed Social History Social History Type Response Smoking Status Former smoker, quit more roly n 30 days ago entered on: 07/04/18 Hospital Discharge Instructions Patient Ftwnjycto18/22/2019 10:08:49Acute Bronchitis, AdultAcute Bronchitis, Adult Acute bronchitis is sudden (acute) swelling of the air tubes (bronchi) in the lungs. Acute bronchitis causes these tubes to fill with mucus, which can make it hard to breathe. It can also cause coughing or wheezing. In adults, acute bronchitis usually goes away within 2 weeks. A cough caused by bronchitis may last up to 3 weeks. Smoking, allergies, and asthma can make the condition worse. Repeated episodes of bronchitis may cause further lung problems, such as chronic obstructive pulmonary disease (COPD). What are the causes? This condition can be caused by germs and by substances that irritate the lungs, including: ??? Cold and flu viruses. This condition is most often caused by the same virus that causes a cold. ??? Bacteria. ??? Exposure to tobacco smoke, dust, fumes, and air pollution. What increases the risk? This condition is more likely to develop in people who: ??? Have close contact with someone with acute bronchitis. ??? Are exposed to lung irritants, such as tobacco smoke, dust, fumes, and vapors. ??? Have a weak immune system. ??? Have a respiratory condition such as asthma. What are the signs or symptoms? Symptoms of this condition include: ??? A cough. ??? Coughing up clear, yellow, or green mucus. ??? Wheezing. ??? Chest congestion. ??? Shortness of breath. ??? A fever. ??? Body aches. ??? Chills. ??? A sore throat. How is this diagnosed? This condition is usually diagnosed with a physical exam. During the exam, your health care providermay order tests, such as chest X-rays, to rule out other conditions. He or she may also: ??? Test a sample of your mucus for bacterial infection. ??? Check the level of oxygen in your blood. This is done to check for pneumonia. ??? Do a chest X-ray or lung function testing to rule out pneumonia and other conditions. ??? Perform blood tests. Your health care provider will also ask about your symptoms and medical history. How is this treated? Most cases of acute bronchitis clear up over time without treatment. Your health care provider may recommend: ??? Drinking more fluids. Drinking more makes your mucus thinner, which may make it easier to breathe. ??? Taking a medicine for a fever or cough. ??? Taking an antibiotic medicine. ??? Using an inhaler to help improve shortness of breath and to control a cough. ??? Using a cool mist vaporizer or humidifier to make it easier to breathe. Follow these instructions at home: Medicines ??? Take dlch-loy-dkygfqx and prescription medicines only as told by your health care provider. ??? If you were prescribed an antibiotic, take it as told by your health care provider. Do not stop taking the antibiotic even if you start to feel better. General instructions ??? Get plenty of rest. ??? Drink enough fluids to keep your urine clear or pale yellow. ??? Avoid smoking and secondhand smoke. Exposure to cigarette smoke or irritating chemicals will make bronchitis worse. If you smoke and you need help quitting, ask your health care provider. Quitting smoking will help your lungs heal faster. ??? Use an inhaler, cool mist vaporizer, or humidifier as told by your health care provider. ??? Keep all follow-up visits as told by your health care provider. This is important. How is this prevented? To lower your risk of getting this condition again: ??? Wash your hands often with soap and water. If soap and water are not available, use hand agricultural inspector. ??? Avoid contact with people who have cold symptoms. ??? Try not to touch your hands to your mouth, nose, or eyes. ??? Make sure to get the flu shot every year. Contact a health care provider if: ??? Your symptoms do not improve in 2 weeks of treatment. Get help right away if: ??? You cough up blood. ??? You have chest pain. ??? You have severe shortness of breath. ??? You become dehydrated. ??? You faint or keep feeling like you are going to faint. ??? You keep vomiting. ??? You have a severe headache. ??? Your fever or chills gets worse. This information is not intended to replace advice given to you by your health care provider. Make sure you discuss any questions you have with your health care provider. Document Released: 08/09/2005 Document Revised: 01/24/2017 Document Reviewed: 12/20/2016 [employer] Patient Education ?? 2018 [employer] VertigoVertigo Vertigo is the feeling that you or your surroundings are moving when they are not. Vertigo can be dangerous if it occurs while you are doing something that could endanger you or others, such as driving. What are the causes? This condition is caused by a disturbance in the signals that are sent by your body???s sensory systems to your brain. Different causes of a disturbance can lead to vertigo, including: ??? Infections, especially in the inner ear. ??? A bad reaction to a drug, or misuse of alcohol and medicines. ??? Withdrawal from drugs or alcohol. ??? Quickly changing positions, as when lying down or rolling over in bed. ??? Migraine headaches. ??? Decreased blood flow to the brain. ??? Decreased blood pressure. ??? Increased pressure in the brain from a head or neck injury, stroke, infection, tumor, or bleeding. ??? Central nervous system disorders. What are the signs or symptoms? Symptoms of this condition usually occur when you move your head or your eyes in different directions. Symptoms may start suddenly, and they usually last for less than a minute. Symptoms may include: ??? Loss of balance and falling. ??? Feeling like you are spinning or moving. ??? Feeling like your surroundings are spinning or moving. ??? Nausea and vomiting. ??? Blurred vision or double vision. ??? Difficulty hearing. ??? Slurred speech. ??? Dizziness. ??? Involuntary eye movement (nystagmus). Symptoms can be mild and cause only slight annoyance, or they can be severe and interfere with dailylife. Episodes of vertigo may return (recur) over time, and they are often triggered by certain movements. Symptoms may improve over time. How is this diagnosed? This condition may be diagnosed based on medical history and the quality of your nystagmus. Your health care provider may test your eye movements by asking you to quickly change positions to trigger the nystagmus. This may be called the Dorena-Hallpike test, head thrust test, or roll test. You may be referred to a health care provider who specializes in ear, nose, and throat (ENT) problems (carbon accountant) or a provider who specializes in disorders of the central nervous system (neurologist). You may have additional testing, including: ??? A physical exam. ??? Blood tests. ??? MRI. ??? A CT scan. ??? An electrocardiogram (ECG). This records electrical activity in your heart. ??? An electroencephalogram (EEG). This records electrical activity in your brain. ??? Hearing tests. How is this treated? Treatment for this condition depends on the cause and the severity of the symptoms. Treatment options include: ??? Medicines to treat nausea or vertigo. These are usually used for severe cases. Some medicines that are used to treat other conditions may also reduce or eliminate vertigo symptoms. These include: ? Medicines that control allergies (antihistamines). ? Medicines that control seizures (anticonvulsants). ? Medicines that relieve depression (antidepressants). ? Medicines that relieve anxiety (sedatives). ??? Head movements to adjust your inner ear back to normal. If your vertigo is caused by an ear problem, your health care provider may recommend certain movements to correct the problem. ??? Surgery. This is rare. Follow these instructions at home: Safety ??? Move slowly.Avoid sudden body or head movements. ??? Avoid driving. ??? Avoid operating heavy machinery. ??? Avoid doing any tasks that would cause danger to you or others if you would have a vertigo episode during the task. ??? If you have trouble walking or keeping your balance, try using a cane for stability. If you feeldizzy or unstable, sit down right away. ??? Return to your normal activities as told by your health care provider. Ask your health care provider what activities are safe for you. General instructions ??? Take qyck-pla-fuoyonr and prescription medicines only as told by your health care provider. ??? Avoid certain positions or movements as told by your health care provider. ??? Drink enough fluid to keep your urine clear or pale yellow. ??? Keep all follow-up visits as told by your health care provider. This is important. Contact a health care provider if: ??? Your medicines do not relieve your vertigo or they make it worse. ??? You have a fever. ??? Your condition gets worse or you develop new symptoms. ??? Your family or friends notice any behavioral changes. ??? Your nausea or vomiting gets worse. ??? You have numbness or a ???pins and needles?? sensation in part of your body. Get help right away if: ??? You have difficulty moving or speaking. ??? You are always dizzy. ??? You faint. ??? You develop severe headaches. ??? You have weakness in your hands, arms, or legs. ??? You have changes in your hearing or vision. ??? You develop a stiff neck. ??? You develop sensitivity to light. This information is not intended to replace advice given to you by your health care provider. Make sure you discuss any questions you have with your health care provider. Document Released: 04/11/2006 Document Revised: 12/13/2016 Document Reviewed: 10/25/2015 [employer] Interactive Patient Education ?? 2018 [employer] Follow Up Care10/04/2018 10:08:49With:Coordinator for [facility] in [facility] Address: Our Coordinator will help you obtain an appointment as quickly as possible that meets your insurance and geographic needs [place] [phone] Business (1) When:1 to 2 days Comments:Please call your PCP or our Coordinator for an ENT referral. Please return to the [facility]gent [facility] Centeror go to the nearest ED if your condition worsens or fails to improve.With:Physician Referral Service [facility] Address: Please call for physicians referral information [place], [place] [phone] Business (1) When:1 to 2 days Comments:Please follow up with your PCP in 1-2 days even if well or call our Physicians Referral Service for a PCP that meets your insurance and [facility]. Please return to the Urgent Care Center or go to the nearest ED if your condition worsens or fails to improve.With:Follow up with your PCP tomorrow even if well Address:Unknown When:Unknown
--- OUTSIDE RECORDS SUMMARY | 2022-06-19 22:36 | XMS_ITS | Encounter Summary ---
:1950 Author Organization Department [facility] rs Address [address] [place] [id number] Support Name Relationship Address Phone BRIDGER ARNOLD Unavailable [address] VICK[place] GODINEZ [address] BRIDGER ARNOLD Unavailable Unavailable Insurance Providers: All [...] Number Parekh UNITED MEDICARE MCR Jul 16 [id number] [phone] JEANNETTE ARNOLD [employer]VANT[employer] (WNR) 2017 24 0 [facility] (WNR) Selected Encounter This section includes the information on record at [place] for the Encounter. Date/Time Encounter Type Encounter Description Reason Provider Source Apr 15, 2022 11:14 Outpatient Encounter TELEPHONE PRIMARY CARE IHE Encounter Template Text not used by [place] Plan of Treatment: Future Appointments (+ 6 months) and Future Tests (+/- 45 days) The Plan of Treatment section includes future care activities for the patient from all [place] treatmentfacilities. This section includes future appointments and [...] the Encounter. The data comes from all [place] treatment facilities. Test Date/Time Test Type Test Details Facility Name Apr 13, 2022 12:00 AM Laboratory - CREATININE ([facility] 2020) BLOOD [place] [facility] (SST-SERUM) SP Lab Results: +/- 30 days of the encounter This section includes the Chemistry and Hematology Lab Results on record with [place] for the patient. Radiology Reports and Pathology Reports are provided separately, in subsequent sections.Lab Results This section contains the Chemistry/Hematology Results that were resulted 30 days before or 30 daysafter the date of the Encounter. Date/Time Source Result Type Result - Unit Interpretation Reference Range Comment Apr 13, 2022 10:23 [facility] URINALYSIS Specimen Typ e: URINE AM [place] [facility] No comment enter ed. Ordering Provid er: AMLACHI RODRIGUEZ Report Released Date/Time: Apr 13, 2022 09:55 AM Reporting Lab: [facility] [place] [facility] [address] [facility] [address] Performing Lab: [facility] [place] [facility] [address] [facility] [address] UA COLOR Yellow Yellow UA APPEARANCE Clear Clear UA GLUCOSE Negative Negative UA KETONES Negative Neg UA BLOOD Negative Neg UA PROTEIN Negative Neg UA NITRITE Negative Neg UA BILIRUBIN Negative Neg UA SPECIFIC GRAVITY 1.017 1.016-1.02 2 UA pH 6.0 5.0-9.0 UA UROBILINOGEN 2.0 <2.0 UA LEUKOCYTE ESTERASE Negative Neg Apr 13, 2022 [facility]/CREATIN[facility] RATIO Specim en Type: URINE 10:23 AM [place] [facility] PANEL, URINE No comment enter ed. Ordering Provid er: MALACHI RODRIGUEZ Report Released Date/Time: Apr 13, 2022 09:55 AM Reporting Lab: [facility] [place] [facility] [address] [address] Performing Lab: [facility] [place] [facility] [address] [facility] [address] CREATININE URINE 102.65 UR PROTEIN/CREATININE RATIO 0.1 <0 .2 PROTEIN, URINE 11.1 0.0-20.0 Apr 13, 2022 [facility] LIPID PANEL FASTING Specimen Ty pe: SERUM 10:23 AM [place] [facility] No comment enter ed. Ordering Provid er: MALACHI RODRIGUEZ Report Released Date/Time: Apr 12, 2022 09:17 AM Reporting Lab: [facility] [place] [facility] [address] [address] Performing Lab: [facility] [place] [facility] [address] [address] CHOLESTEROL 150 <7-199 TRIGLYCERIDE 137 0-150 LDL calculated 84 0-129 CHOL/HDL 3.8 HDL CHOLESTEROL 39 L 40-60 Apr 13, 2022 [facility] BASIC METABOLIC Specimen Type: SERUM 10:23 [facility] PANEL (fasting) No comment enter ed. Ordering Provid er: MALACHI RODRIGUEZ Report Released Date/Time: Apr 12, 2022 09:17 AM Reporting Lab: [facility] [place] [facility] [address] [address] Performing Lab: [facility] [place] [facility] [address] [address] UREA NITROGEN 11 7-25 GLUCOSE 97 65-100 SODIUM 139 135-145 POTASSIUM 4.1 3.5-5.0 CHLORIDE 106 100-110 CO2 24 20-30 CREATININE, Serum 0.83 0.50-1.40 eGFR(CKD-EPI 2020) >90 >60 Apr 13, 2022 10:23 [facility] LIVER FUNCTION Specimen Typ e: SERUM AM [place] [facility] No comment enter ed. Ordering Provid er: MALACHI RODRIGUEZ Report Released Date/Time: Apr 12, 2022 09:17 AM Reporting Lab: [facility] [place] [facility] [address] [address] Performing Lab: [facility] [place] [facility] [address] [address] PROTEIN,TOTAL 7.2 6.0-8.3 ALBUMIN 3.8 3.5-5.0 ALKALINE PHOSPHATASE 66 40-150 AST 18 5-34 ALT 21 <6-55 BILIRUBIN, TOTAL 0.4 0.2-1.2 Apr 13, 2022 [facility] HEMOGLOBIN A1C Specimen Type: BLOOD [...] Lab: [facility] [place] [facility] [address] [address] Performing Lab: [facility] [place] [facility] [address] [address] HEMOGLOBIN A1C 5.2 4.0-5.6 Apr 13, 2022 10:23 AM [facility] [place] [facility] Specimen Type: [facility] HCS No comment enter ed. Ordering Provid er: MALACHI RODRIGUEZ Report Released Date/Time: Apr 12, 2022 09:17 AM Reporting Lab: [facility] [place] [facility] [address] [address] Performing Lab: [facility] [place] [facility] [address] [address] TSH 1.19 0.35-5.00 Apr 13, 2022 [facility] CBC AND DIFF Specimen Type: BLOOD 10:23 AM [place] [facility] (AUTO) No comment enter ed. Ordering Provid er: MALACHI RODRIGUEZ Report Released Date/Time: Apr 12, 2022 09:17 AM Reporting Lab: [facility] [place] [facility] [address] [address] Performing Lab: [facility] [place] [facility] [address] [address] WBC 5.83 4.50-11.00 RBC 4.91 4.23-5.66 HGB 14.7 12.8-17 HCT 42.5 39.2-50.4 MCV 86.6 82-99 MCHC 34.6 30.8-35.1 PLT 171 140-360 RDW-CV 12.0 12.0-16.0 Glynn, Abs 0.72 0.30-1.10 MCH 29.9 26.2-32.6 Neut % 47.9 Lymph % 36.0 Glynn % 12.3 Eos % 3.1 Baso % 0.5 Neut, Abs 2.79 2.20-7.60 Lymph, Abs 2.10 1.00-3.20 Eos, Abs 0.18 0.03-0.44 Baso, Abs 0.03 0.01-0.13 Immature Gran % 0.2 Immature Gran, Abs 0.01 0.00-0.06 Social History: Smoking Status (Most current) and Tobacco Use (All prior to encounter date) This section includes the most current, and the historical, smoking and tobacco-related health factors from the [place] facility where the Encounter took place.Current Smoking Status This section includes the most current smoking, or tobacco-related health factor, from the [place] facility where the Encounter took place. Date/Time Current Smoking Status Comment Facility Apr 13, 2022 09:30 AM VA-TOBACCO FORMER USER [place] [facility] [place] [facility] Tobacco Use History This section includes a history of the smoking, or tobacco- related health factors, that were collected on or before the date of the Encounter. The data comes from the [place] facility where the Encounter took place. Date/Time Smoking Status/Tobacco Use Comment [facility] Apr 13, 2022 09:30 AM VA-TOBACCO QUIT 5 TO < 15 YRS [facility] [place] [facility] Apr 12, 2021 11:30 AM VA-TOBACCO FORMER USER [facility] [place] [facility] Apr 12, 2021 11:30 AM VA-TOBACCO QUIT 5 TO < 15 YRS [facility] [place] [facility] Mar 19, 2020 09:00 AM VA-TOBACCO FORMER USER [facility] [place] [facility] Mar 19, 2020 09:00 AM VA-TOBACCO QUIT 5 TO < 15 YRS [facility] [place] [facility] December 12, 2018 10:18 AM VA-TOBACCO FORMER USER [facility] [place] [facility] December 12, 2018 10:18 AM VA-TOBACCO QUIT 5 TO < 15 YRS [facility] [place] [facility] Jan 21, 2018 07:50 AM QUIT TOBACCO USE > 7 YEARS [facility] [place] [facility] Dec 25, 2016 10:59 AM QUIT TOBACCO USE > 7 YEARS [facility] Advance Directives: All historical and current Section Date Range: From patient's date of to the date document was created. This section includes ALL of a patient's completed or amended [place] Advance and Rescinded Directives. The entries below indicate that a directive exists for the patient, but an actual copy is not included with this document. The data comes from all [place] facilities. Date Advance Directives Provider Source May 23, 2015 ADVANCE DIRECTIVE AMBER PENA [facility] Encounter Notes: All associated encounter notes This section contains the clinical notes associated to the Encounter. Date/Time Encounter Note(s) Provider Source Apr 15, 2022 11:14 LETTERS: MALACHI RODRIGUEZ [facility] AM LOCAL TITLE: PATIENT LETTER (T) [facility] STANDARD TITLE: LETTERS DATE OF NOTE: APR 15, 2022@11:14 ENTRY DATE: APR 15, 2022@11:14:09 AUTHOR: MALACHI RODRIGUEZ COSIGNER: URGENCY: STATUS: COMPLETED [facility] Toll Free Number Primary Care Telephone Assistance can be reached at extension [phone] [facility] scheduling can be reac hed at extension [phone] [facility] scheduling can be felipe ched at ext [phone] GENEVIEVE ARNOLD [address], [place], [address] Dear Upatoi, Please share these results with your nonVA provi ders. Your recent test results are as follows: LAB CHEMISTRY & HEMATOLOGY Collection DT Specimen Test Name Result Units Re f Range 04/13/2022 10:23 URINE CREATININE URINE 102.65 m g/dL Prot/Crea 0.1 Ref: <0.2 PROTEIN, URINE 11.1 mg/dL 0.0 - 20.0 04/13/2022 10:23 URINE UA COLOR Yellow Ref: [place] UA APPEARANCE Clear Ref: Clear UA pH 6.0 5.0 - 9.0 UA GLUCOSE Negative mg/dL Ref: Negative UA KETONES Negative mg/dL Ref: Neg UA BLOOD Neg Ref: Neg UA PROTEIN Negative mg/dL Ref: Neg LeukEs Negative Ref: Neg UA NITRITE Neg Ref: Neg UA BILIRUBIN Neg Ref: Neg UA UROBILINOGEN 2.0 mg/dL Ref: <2.0 SpeGra 1.017 1.016 - 1.022 04/13/2022 10:23 BLOOD !! HEMOGLOBIN A1C 5.2 % 4 .0 - 5.6 04/13/2022 10:23 BLOOD WBC 5.83 K/cmm 4.50 - 11. 00 Neut % 47.9 % Lymph % 36.0 % Glynn % 12.3 % Eos % 3.1 % Baso % 0.5 % Immature Gran % 0.2 % Neut, Abs 2.79 K/cmm 2.20 - 7.60 Lymph, Abs 2.10 K/cmm 1.00 - 3.20 Glynn, Abs 0.72 K/cmm 0.30 - 1.10 Eos, Abs 0.18 K/cmm 0.03 - 0.44 Baso, Abs 0.03 K/cmm 0.01 - 0.13 Immature Gran, Ab 0.01 K/cmm 0.00 - 0.06 RBC 4.91 M/cmm 4.23 - 5.66 HGB 14.7 g/dL 12.8 - 17 HCT 42.5 % 39.2 - 50.4 MCV 86.6 fl 82 - 99 MCH 29.9 pg 26.2 - 32.6 MCHC 34.6 g/dL 30.8 - 35.1 RDW-CV 12.0 % 12.0 - 16.0 PLT 171 K/cmm 140 - 360 04/13/2022 10:23 SERUM TSH 1.19 uIU/mL 0.35 - 5. 00 CREATININE, Serum 0.83 mg/dL 0.50 - 1.40 eGFR(CKD-EPI 2020 >90 mL/min Ref: >=60 SODIUM 139 mmol/L 135 - 145 POTASSIUM 4.1 mmol/L 3.5 - 5.0 CHLORIDE 106 mmol/L 100 - 110 CO2 24 mEq/L 20 - 30 UREA NITROGEN 11 mg/dL 7 - 25 GLUCOSE 97 mg/dL 65 - 100 PROTEIN,TOTAL 7.2 g/dL 6.0 - 8.3 ALBUMIN 3.8 g/dL 3.5 - 5.0 ALK YAAKOV 66 U/L 40 - 150 AST 18 U/L 5 - 34 BILIRUBIN, TOTAL 0.4 mg/dL 0.2 - 1.2 CHOLESTEROL 150 mg/dL <7 - 199 TRIGLYCERIDE 137 mg/dL 0 - 150 LDL calculated 84 mg/dL 0 - 129 CHOL/HDL 3.8 ALT 21 U/L <6 - 55 HDL CHOLESTEROL 39 L mg/dL 40 - 60 !! Indicates COMMENTS AVAILABLE...Refer to Inter im Lab Report. Lipid Profile Collection DT Specimen Test Name Result Units Re f Range 04/13/2022 10:23 SERUM CHOLESTEROL 150 mg/dL <7 - 199 04/13/2022 10:23 SERUM TRIGLYCERIDE 137 mg/dL 0 - 150 04/13/2022 10:23 SERUM HDL CHOLESTEROL 39 L mg/d L 40 - 60 04/13/2022 10:23 SERUM LDL calculated 84 mg/dL 0 - 129 04/13/2022 10:23 SERUM CHOL/HDL 3.8 04/13/2022 10:23 BLOOD !! HEMOGLOBIN A1C 5.2 % 4 .0 - 5.6 !! Indicates COMMENTS AVAILABLE...Refer to Inter im Lab Report. Thyroid Test Collection DT Spec TSH 04/13/2022 10:23 SERUM 1.19 Please call if you have any questions or concern s. Upcoming Appointments: No data available Sincerely, Your Primary Care Team [facility] [address] [address] [place] [address] [phone] [facility] [address] [place] [address] [place] [address] [phone] [facility] [address] [facility]st [address] [place] [address] [place] [address] [phone]
--- OUTSIDE RECORDS SUMMARY | 2022-06-19 22:36 | XMS_ITS | Encounter Summary ---
:1950 Author Organization Department [facility] rs Address [address] [place] [id number] Support Name Relationship Address Phone BRIDGER ARNOLD Unavailable [address] [phone] [place] [address] BRIDGER ARNOLD Unavailable Unavailable Insurance Providers: All [...] Number Parekh UNITED MEDICARE MCR Jul 16 [id number] [phone] JEANNETTE RANOLD [employer]VANTAGE (WNR) 2017 24 0 [facility] (WN) Selected Encounter This section includes the information on record at [place] for the Encounter. Date/Time Encounter Type Encounter Description Reason Provider Source Feb 10, 2022 11:30 Outpatient Encounter COMMUNITY CARE AM CONSULT IHE Encounter Template Text not used by [place] Plan of Treatment: Future Appointments (+ 6 months) and Future Tests (+/- 45 days) The Plan of Treatment section includes future care activities for the patient from all [place] treatmentfacilities. This section includes future appointments and future orders which are active, pending orscheduled.Future Appointments This section includes appointments that were scheduled to occur 6 months from the date of the Encounter, up to a maximum of 20 appointments. The data comes from all [place] treatment facilities. Appointment Date/Time Appointment Type Appointment Facili ty Name Apr 13, 2022 09:30 AM [facility] Social History: Smoking Status (Most current) and Tobacco Use (All prior to encounter date) This section includes the most current, and the historical, smoking and tobacco-related health factors from the [place] facility where the Encounter took place.Current Smoking Status This section includes the most current smoking, or tobacco-related health factor, from the [place] facility where the Encounter took place. Date/Time Current Smoking Status Comment Facility Apr 12, 2021 11:30 AM VA-TOBACCO FORMER USER [facility] Tobacco Use History This section includes a history of the smoking, or tobacco- related health factors, that were collected on or before the date of the Encounter. The data comes from the [place] facility where the Encounter took place. Date/Time Smoking Status/Tobacco Use Comment [facility] Apr 12, 2021 11:30 AM VA-TOBACCO QUIT 5 TO < 15 YRS [facility] [place] [facility] Mar 19, 2020 09:00 AM VA-TOBACCO FORMER USER [facility] [place] [facility] Mar 19, 2020 09:00 AM VA-TOBACCO QUIT 5 TO < 15 YRS [facility] [place] [facility] December 12, 2018 10:18 AM VA-TOBACCO FORMER USER [place] [facility] [place] [facility] December 12, 2018 10:18 AM VA-TOBACCO QUIT 5 TO < 15 YRS [facility] [place] [facility] Jan 21, 2018 07:50 AM QUIT TOBACCO USE > 7 YEARS [facility] [place] [facility] Dec 25, 2016 10:59 AM QUIT TOBACCO USE > 7 YEARS [place] [facility] [place] [facility] [facility] Advance Directives: All historical and current Section Date Range: From patient's date of to the date document was created. This section includes ALL of a patient's completed or amended [place] Advance and Rescinded Directives. The entries below indicate that a directive exists for the patient, but an actual copy is not included with this document. The data comes from all [place] facilities. Date Advance Directives Provider Source May 23, 2015 ADVANCE DIRECTIVE AMBER PENA [place] [facility] [place] [facility] Encounter Notes: All associated encounter notes This section contains the clinical notes associated to the Encounter. Date/Time Encounter Note(s) Provider Source Feb 10, 2022 11:30 AM NONVA NOTE: EULOGIO GARCIA LOCAL TITLE: COMMUNITY CARE COORDINATION PLAN STANDARD TITLE: NONVA NOTE DATE OF NOTE: FEB 10, 2022@11:30 ENTRY DATE: FEB 10, 2022@11:30:07 AUTHOR: EULOGIO GARCIA EXP COSIGNER: URGENCY: STATUS: COMPLETED [place] self-presented to community emergency fa cility Emergency Notification Intake Date [facility]ing to the Facility: [facility] Hospital Name: Hospital: [place], [place] [phone] Address: City: [place] State: Zip Code: Phone : Chief complaint: I48.91 Primary Diagnosis: Patient Admitted? Yes Route of Admission: ER Date/Time of Admission: Jan@15:05 Admitting Diagnosis: I48.91 Community Care Provider: Confirm Level of Care: Community Facility Point of Contact: Name: Pao Phone: info from [facility] /kristen/ EULOGIO GARCIA AMSA Signed: 02/10/2022 11:31 Receipt Acknowledged By: * AWAITING SIGNATURE * MALACHI RODRIGUEZ * AWAITING SIGNATURE * SHARLENE GALLARDO * AWAITING SIGNATURE * MIRIAM TRUONG 02/10/2022 11:38 /es/ DANIELLE WILLSON, IVONNE REGISTERED NURSE
[2022-06-20] VITALS (13 sets, daily range): BP systolic 127–141; BP diastolic 61–75; PULSE 69–111; RESP 14–18; TEMP 36.3–36.9; O2SAT 92–97; BMI 31.8
[2022-06-20] MEDS: 0.9 % Sodium Chloride Flush 3 ML SYRINGE IVFLUSH ×4 (01:25→20:59)
[2022-06-20] MEDS: Albuterol/Iprat 2.5/0.5MG 3 ML AMPUL.NEB INHALE ×5 (01:33→20:14)
[2022-06-20] MEDS: Benzonatate 100 MG CAPSULE 200 MG PO ×3 (05:59→20:58)
[2022-06-20 06:54] LABS: Basophils Percent Auto 0.3 % (0-2); Hematocrit 38.5 % (42.0-52.0); Hemoglobin 13.3 g/dl (14.0-18.0); Imm Gran Abs Auto 0.06 X10*3/uL (0.00-0.03); Imm Gran Pct Auto 0.7 % (0.0-0.4); Lymphocytes Absolute Auto 0.5 X10*3/uL (1.2-4.9); MANUAL DIFF FLAG SCAN; Mean Corpuscular HGB Conc 34.5 g/dl (31.0-36.0); Mean Corpuscular Hemoglobin 29.4 pg (27.0-33.0); Mean Platelet Volume 10.8 fL (9.4-12.4); Monocytes Absolute Auto 0.1 X10*3/uL (0.1-1.2); Monocytes Percent Auto 1.3 % (2-11); Neutrophils Percent Auto 91.7 % (45-73); Platelet Count 297 X10*3/uL (160-400); Red Blood Count 4.53 X10*6/uL (4.60-5.80); Red Cell Distribution Width 16.3 % (11.0-16.0); SCAN SMEAR FLAG 1; White Blood Count 8.7 X10*3/uL (4.8-10.8)
[2022-06-20 07:06] LABS: Anion Gap 14 (12-20); Blood Urea Nitrogen 16 mg/dL (9-16); Calcium 9.3 mg/dL (8.4-10.2); Carbon Dioxide 21 mmol/L (22-29); Chloride 104 mmol/L (96-108); Estimated Glomerular Filt Rate > 60; Glucose Random 224 mg/dL (60-115); Sodium 135 mmol/L (135-145)
[2022-06-20 07:23] LABS: SLIDE REVIEW VERIFIED
[2022-06-20] MEDS: methylPREDNISolone Sod Succ 40 MG/ML VIAL IVPUSH ×2 (08:06→20:58)
[2022-06-20] MEDS: Metoprolol Tartrate 50 MG TABLET PO ×2 (12:25→20:58)
--- NOTE | 2022-06-20 12:45 | MHC.CM.PN ---
MANNY 06/20/22, EMR REVIEWED, CM MET W/PT AND DAVID MONTERO AT BEDSIDE, PT REPORTS HE LIVES W/, USES A CPAP/LINCARE FOR ONLY DME AND IS OTHERWISE INDEP, NO HOME SERVICES. PT REPORTS HE IS 100% SERVICE CONNECTED AND DOES SEE A PCP AT [place] AN[place]ALLY HOWEVER [facility]. PT DOESN NOT ANTIC NEEDED SERVICES UPON D/C. D/C PLAN: HOME NO SERVICES W/FAMILY FOR TRANSPORT. PCP IS CHAS PO, PFIZER [phone] AND PT'S IS HCP [phone], COPY REQUESTED
--- NOTE | 2022-06-20 15:40 | HO.PM.IMPN ---
Subjective Subjective Date of Service: 06/20/22 Interval History: f/u on copd exacerbation interval history: cough, sob, mostly disturbed by cough Review of Systems sob cough Physical Exam Vital Signs: Vital Signs: Last Vital Signs Temp 97.4 F 06/20/22 11:10 Pulse 90 06/20/22 15:32 Resp 18 06/20/22 15:32 BP 137/69 06/20/22 11:10 Pulse Ox 93 06/20/22 11:10 O2 Del Method 06/20/22 11:10 O2 Flow Rate 2.0 06/20/22 08:00 BMI result Body Mass Index 31.8 Objective Data Active Medications Acetaminophen (Acetaminophen 325 Mg Tablet) 650 mg PO Q6H PRN PRN Reason: Pain, Mild (Pain Scale 1-3) Albuterol/Ipratropium (Albuterol/Iprat 2.5/0.5mg 3 Ml Ampul.Neb) 3 ml INHALE RQ4H WHILE AWAKE [facility] Last Admin: 06/20/22 15:26 Dose: 3 ml Documented By: ROYA Albuterol/Ipratropium (Albuterol/Iprat 2.5/0.5mg 3 Ml Ampul.Neb) 3 ml INHALE RQ4H PRN PRN Reason: wheezing Last Admin: 06/20/22 01:33 Dose: 3 ml Documented By: MARYSE Apixaban (Apixaban 5 Mg Tablet) 5 mg PO BID [facility] Last Admin: 06/20/22 12:24 Dose: Not Given Documented By: LEYLA Non-Admin Reason: refused, states he no longer takes Benzonatate (Benzonatate 100 Mg Capsule) 200 mg PO TID [facility] Melatonin (Melatonin 3 Mg Tablet) 6 mg PO BEDTIME PRN PRN Reason: Insomnia Methylprednisolone Sodium Succinate (Methylprednisolone Sod Succ 40 Mg/Ml Vial) 40 mg IVPUSH BID [facility] Last Admin: 06/20/22 08:06 Dose: 40 mg Documented By: LEYLA Metoprolol Tartrate (Metoprolol Tartrate 50 Mg Tablet) 50 mg PO BID [facility]; Protocol Last Admin: 06/20/22 12:25 Dose: 50 mg Documented By: LEYLA Omeprazole (Omeprazole 20 Mg Capsule.) 20 mg PO DAILY [facility] Last Admin: 06/20/22 12:24 Dose: Not Given Documented By: LEYLA Non-Admin Reason: Patient Refused Ondansetron HCl (Ondansetron Hcl 4 Mg/2 Ml Vial) 4 mg IVPUSH Q8H PRN PRN Reason: Nausea and Vomiting Pharmacy Consult (Consult Rx Perform Med Rec) 1 each MISCELLANE ONCE PRN PRN Reason: Consult order Sodium Chloride (0.9 % Sodium Chloride Flush 3 Ml Syringe) 3 ml IVFLUSH QSHIFT [facility] Last Admin: 06/20/22 08:06 Dose: 3 ml Documented By: LEYLA Triamcinolone Acetonide (Triamcinolone Acet 0.1 % Cream 15 Gm Tube) 1 appl TOPICAL BID [facility]; Protocol Labs CBC & Chem 7: 06/20/22 06:23 06/20/22 06:23 Labs: Laboratory Results - last 24 hr 06/19/22 06/19/22 06/19/22 18:08 18:08 18:08 MCV 86.6 MCH 29.6 MCHC 34.2 RDW 16.4 H Plt Count 295 MPV 10.5 Immature Gran % (Auto) 0.5 H Neut % (Auto) 72.7 Lymph % (Auto) 12.5 L [place] % (Auto) 9.7 Eos % (Auto) 3.7 Baso % (Auto) 0.9 Lymph # (Auto) 1.0 L [place] # (Auto) 0.8 Eos # (Auto) 0.3 Baso # (Auto) 0.1 Abs Immat Gran (auto) 0.04 H Absolute Neuts (auto) 5.7 Absolute Nucleated RBC 0.000 Nucleated RBC % (auto) 0.0 Smear Tech's Comments PT 14.3 H INR 1.2 H VBG pH VBG pCO2 VBG pO2 VBG HCO3 VBG O2 Saturation VBG Base Excess Anion Gap 15 Estim Creat Clear Calc 75.7 Estimated GFR > 60 Random Glucose 132 H Lactic Acid Calcium 9.3 Total Bilirubin 20.2 H AST 65 H ALT 92 H Alkaline Phosphatase 265 H Troponin I High Sens Total Protein 7.3 Albumin 3.9 Lipase 23 Urine Color Urine Appearance Urine pH Ur Specific [place] Urine Protein Urine Glucose (UA) Urine Ketones Urine Blood Urine Nitrite Ur Leukocyte Esterase Urine RBC Urine WBC Ur Squamous Epith Cells Urine Bacteria Hyaline Casts Influenza Type A (PCR) Influenza Type B (PCR) RSV RNA Qual (PCR) SARS-CoV-2 RNA (RT-PCR) 06/19/22 06/19/22 06/19/22 18:08 18:08 18:11 MCV MCH MCHC RDW Plt Count MPV Immature Gran % (Auto) Neut % (Auto) Lymph % (Auto) [place] % (Auto) Eos % (Auto) Baso % (Auto) Lymph # (Auto) [place] # (Auto) Eos # (Auto) Baso # (Auto) Abs Immat Gran (auto) Absolute Neuts (auto) Absolute Nucleated RBC Nucleated RBC % (auto) Smear Tech's Comments PT INR VBG pH 7.38 VBG pCO2 37 VBG pO2 42 VBG HCO3 22 VBG O2 Saturation 65.0 VBG Base Excess -1.8 Anion Gap Estim Creat Clear Calc Estimated GFR Random Glucose Lactic Acid 1.1 Calcium Total Bilirubin AST ALT Alkaline Phosphatase Troponin I High Sens < 3.5 Total Protein Albumin Lipase Urine Color Urine Appearance Urine pH Ur Specific [place] Urine Protein Urine Glucose (UA) Urine Ketones Urine Blood Urine Nitrite Ur Leukocyte Esterase Urine RBC Urine WBC Ur Squamous Epith Cells Urine Bacteria Hyaline Casts Influenza Type A (PCR) Influenza Type B (PCR) RSV RNA Qual (PCR) SARS-CoV-2 RNA (RT-PCR) 06/19/22 06/19/22 06/20/22 19:51 20:25 06:23 MCV 85.0 MCH 29.4 MCHC 34.5 RDW 16.3 H Plt Count 297 MPV 10.8 Immature Gran % (Auto) 0.7 H Neut % (Auto) 91.7 H Lymph % (Auto) 6.0 L [place] % (Auto) 1.3 L Eos % (Auto) 0.0 Baso % (Auto) 0.3 Lymph # (Auto) 0.5 L [place] # (Auto) 0.1 Eos # (Auto) 0.0 Baso # (Auto) 0.0 Abs Immat Gran (auto) 0.06 H Absolute Neuts (auto) 8.0 Absolute Nucleated RBC 0.000 Nucleated RBC % (auto) 0.0 Smear Tech's Comments VERIFIED PT INR VBG pH VBG pCO2 VBG pO2 VBG HCO3 VBG O2 Saturation VBG Base Excess Anion Gap Estim Creat Clear Calc Estimated GFR Random Glucose Lactic Acid Calcium Total Bilirubin AST ALT Alkaline Phosphatase Troponin I High Sens Total Protein Albumin Lipase Urine Color Dark Yellow Urine Appearance Cloudy Urine pH 5.5 Ur Specific [place] 1.015 Urine Protein 30 (1+) H Urine Glucose (UA) Negative Urine Ketones Negative Urine Blood Large (3+) H Urine Nitrite Negative Ur Leukocyte Esterase Moderate (2+) H Urine RBC >20 H Urine WBC >50 H Ur Squamous Epith Cells 11-20 Urine Bacteria None Seen Hyaline Casts 0-2 Influenza Type A (PCR) NEGATIVE Influenza Type B (PCR) NEGATIVE RSV RNA Qual (PCR) NEGATIVE SARS-CoV-2 RNA (RT-PCR) NEGATIVE 06/20/22 06:23 MCV MCH MCHC RDW Plt Count MPV Immature Gran % (Auto) Neut % (Auto) Lymph % (Auto) [place] % (Auto) Eos % (Auto) Baso % (Auto) Lymph # (Auto) [place] # (Auto) Eos # (Auto) Baso # (Auto) Abs Immat Gran (auto) Absolute Neuts (auto) Absolute Nucleated RBC Nucleated RBC % (auto) Smear Tech's Comments PT INR VBG pH VBG pCO2 VBG pO2 VBG HCO3 VBG O2 Saturation VBG Base Excess Anion Gap 14 Estim Creat Clear Calc 78.0 Estimated GFR > 60 Random Glucose 224 H Lactic Acid Calcium 9.3 Total Bilirubin AST ALT Alkaline Phosphatase Troponin I High Sens Total Protein Albumin Lipase Urine Color Urine Appearance Urine pH Ur Specific [place] Urine Protein Urine Glucose (UA) Urine Ketones Urine Blood Urine Nitrite Ur Leukocyte Esterase Urine RBC Urine WBC Ur Squamous Epith Cells Urine Bacteria Hyaline Casts Influenza Type A (PCR) Influenza Type B (PCR) RSV RNA Qual (PCR) SARS-CoV-2 RNA (RT-PCR) Microbiology Microbiology Results: Microbiology 06/19/22 20:25 Urine Culture - Preliminary Urine clean catch - Urine menjivar top No growth to date. Assessment and Plan (1) COPD (chronic obstructive pulmonary disease): Status: Acute Plan 72-year-old male with pertinent history of COPD not on home oxygen, bladder cancer status post surgery, jaundice, paroxysmal atrial fibrillation, ANALY on CPAP presents to the emergency department for evaluation dyspnea and wheezing. # Acute dyspnea due to: # Acute exacerbation of COPD in the setting of viral bronchitis #Intractable Cough -Steroid, bronchodilators, cough mees #Jaundice: Unclear etiology. Reviewed recent note from GI visit. Is followed by Dr. Darrian Khan as an outpatient. Recent ultrasound of the abdomen without acute abnormalities. Patient is scheduled for MRI of the liver with MRCP as an outpatient on 06/21/2022, will probably be in ontime for this #Intermittent hematuria due to bladder cancer: Is followed by Dr. Alicea as an outpatient # Paroxysmal atrial fibrillation: Normal sinus rhythm at the time of admission. Eliquis was discontinued due to intermittent hematuria #Obstructive sleep apnea: Continue home CPAP Med rec pending DVT prophylaxis: Mechanical. Defer Lovenox due to intermittent hematuria Obs pt,d c tomorrow Full code Regular diet Quality Stroke Does the patient have a stroke diagnosis?: No VTE Prior VTE?: No VTE Risk Level:: Medical - moderate - high VTE Device Contraindication: N/A - Device Ordered VTE Drug Contraindication: Treatment Not Indicated
[2022-06-20] MEDS: Triamcinolone Acet 0.1 % Cream 15 GM TUBE 1 APPL TOPICAL (22:17)
[2022-06-21] VITALS: BP 134/72; PULSE 88; RESP 18; TEMP 36.3; O2SAT 94
[2022-06-21 03:16] VITALS: BP 127/65; PULSE 86; RESP 18; TEMP 36.5; O2SAT 94
[2022-06-21 07:12] LABS: MANUAL DIFF FLAG NO
[2022-06-21 07:16] LABS: Basophils Percent Auto 0.1 % (0-2); Eosinophils Percent Auto 0.1 % (0-4); Hemoglobin 12.7 g/dl (14.0-18.0); Imm Gran Abs Auto 0.15 X10*3/uL (0.00-0.03); Imm Gran Pct Auto 0.8 % (0.0-0.4); Lymphocytes Absolute Auto 0.9 X10*3/uL (1.2-4.9); Lymphocytes Percent Auto 5.2 % (20-40); Mean Corpuscular HGB Conc 34.3 g/dl (31.0-36.0); Mean Corpuscular Hemoglobin 29.3 pg (27.0-33.0); Mean Corpuscular Volume 85.5 fL (80.0-98.0); Mean Platelet Volume 11.1 fL (9.4-12.4); Monocytes Absolute Auto 0.9 X10*3/uL (0.1-1.2); Monocytes Percent Auto 5.1 % (2-11); Neutrophils Absolute Auto 15.9 x10*3/uL (2.0-8.3); Neutrophils Percent Auto 88.7 % (45-73); Platelet Count 291 X10*3/uL (160-400); Red Blood Count 4.33 X10*6/uL (4.60-5.80); White Blood Count 17.9 X10*3/uL (4.8-10.8)
[2022-06-21] MEDS: Metoprolol Tartrate 50 MG TABLET PO (07:21)
[2022-06-21] MEDS: Benzonatate 100 MG CAPSULE 200 MG PO (07:21)
[2022-06-21] MEDS: 0.9 % Sodium Chloride Flush 3 ML SYRINGE IVFLUSH (07:21)
[2022-06-21] MEDS: methylPREDNISolone Sod Succ 40 MG/ML VIAL IVPUSH (07:21)
[2022-06-21] MEDS: Omeprazole 20 MG CAPSULE.DR PO (07:21)
[2022-06-21 07:22] LABS: INTERNATIONAL NORM RATIO 1.1 (0.9-1.1); Prothrombin Time 13.2 SEC (10.0-13.1)
[2022-06-21 07:35] VITALS: BP 126/70; PULSE 88; RESP 18; TEMP 36.9; O2SAT 94
--- NOTE | 2022-06-21 07:40 | P.DS_ITS ---
DS: Providers Provider Date of Service: 06/21/22 Date of admission: 06/19/22 22:24 Primary care physician: Any Jackson MD DS: Diagnosis Discharge Diagnosis (1) COPD (chronic obstructive pulmonary disease): Status: Acute DS: Summary Hospital Course Hospital Course: Chief Complaint: Dyspnea This is a 72-year-old male with pertinent history of COPD not on home oxygen, bladder cancer status post surgery, jaundice, paroxysmal atrial fibrillation, ANALY on CPAP presents to the emergency department for evaluation dyspnea and wheezing.? Patient states that over the last 1-2 days he has been having worsening upper respiratory symptoms and dry cough.? It soon progressed and he started having dyspnea even with minimal ambulation.? Associated with wheezing.? The wheezing and dyspnea did not resolve with his home albuterol inhaler.? He recently saw a iap displays analyst and was told that he likely has COPD.? Patient denies fever, chills, nausea, vomiting.? Patient was also evaluated by NATACHA Paiz for jaundice.? Cause unknown and workup in progress.? He also has bl adder cancer status post surgery and is followed by Dr. Alicea.? Does have intermittent hematuria due to the same and hence Eliquis was discontinued.? He denies chest discomfort, palpitations, abdominal pain, changes in urinary or bowel habits In the emergency department, patient was found to be wheezing and dyspneic.? Maintain normal oxygen saturation on room air. Hospital course: Laura was observed in the hospital and treated with IV steroid and bronchodilators by Neb, cough medication and has made significant improvement , breathing comfortably, lungs without wheezes and will be discharge home with Prednisone for total of 5 days of steroid. To continue albuterol MDI with spacer. WBC is high today d/t steroid. He is been worked for jaundice on outpatient basis and as an MRI planned on outpatient basis upon discharge. Time Spent with Patient Time attestation: Total time spent providing and/or coordinating discharge services: Discharge coordination time: Greater than 30 minutes Quality: Safe Use of Opioids Does Pt have an Active Cancer Diagnosis on the Problem List?: No Quality: Stroke Does the patient have a stroke diagnosis?: No Physical Exam Vital Signs: Vital Signs: Last Vital Signs Temp 98.5 F 06/21/22 07:35 Pulse 88 06/21/22 07:35 Resp 18 06/21/22 07:35 BP 126/70 06/21/22 07:35 Pulse Ox 94 06/21/22 07:35 O2 Del Method 06/21/22 07:35 O2 Flow Rate 2.0 06/20/22 08:00 BMI result Body Mass Index 31.8 Const: Other: General: AO X 3, no acute distress Resp: CTA bilateral, no wheezes CVS: S1,S2,RRR GI: +BS, NT, no distention Skin: No rash Neuro: motor grossly intact Psych: appropriate affect DS: Data Data Completed and Pending Completed studies during hospitalization [Text1]: Procedures Release Small Intestine, Percutaneous Endoscopic Approach (02/14/21) Labs on day of discharge: Laboratory Results - last 24 hr 06/21/22 06/21/22 06:09 06:09 WBC 17.9 H RBC 4.33 L Hgb 12.7 L Hct 37.0 L MCV 85.5 MCH 29.3 MCHC 34.3 RDW 17.0 H Plt Count 291 MPV 11.1 Immature Gran % (Auto) 0.8 H Neut % (Auto) 88.7 H Lymph % (Auto) 5.2 L [place] % (Auto) 5.1 Eos % (Auto) 0.1 Baso % (Auto) 0.1 Lymph # (Auto) 0.9 L [place] # (Auto) 0.9 Eos # (Auto) 0.0 Baso # (Auto) 0.0 Abs Immat Gran (auto) 0.15 H Absolute Neuts (auto) 15.9 H Absolute Nucleated RBC 0.000 Nucleated RBC % (auto) 0.0 PT 13.2 H INR 1.1 Preliminary micro results at discharge 06/19/22 19:00 Blood Culture - Preliminary Blood - Venous No growth after 24 hours. 06/19/22 18:08 Blood Culture - Preliminary Blood - Venous No growth after 24 hours. 06/19/22 20:25 Urine Culture - Preliminary Urine clean catch - Urine menjivar top No growth to date. Discharge Plan Discharge Anticipated Discharge Date/Time: 06/21/22 07:23 Patient Disposition: Home Health Service Discharge Diagnosis: Acute exacerbation of COPD, Jaundic Referrals: Po,Any Johnson MD [Primary Care Provider] - 1 Week Discharge Medications: New prednisone 20 mg tablet 40 mg PO DAILY Qty: 4 0RF codeine-guaifenesin 10-100 mg/5 mL Liquid 10 ml PO Q6H PRN (Reason: Cough) Qty: 237 0RF benzonatate 100 mg Capsule 100 mg PO TID PRN (Reason: cough) Qty: 21 0RF Continued omeprazole 20 mg capsule,delayed release(DR/EC) 20 mg PO DAILY 90 Days Qty: 90 1RF triamcinolone acetonide 0.1 % Cream 1 appl TOPICAL BID albuterol sulfate 90 mcg/actuation HFA aerosol inhaler 2 puff inhalation Q4H PRN (Reason: shortness of breath or wheezing) metoprolol tartrate 50 mg tablet 50 mg PO BID (DME) CPAP Machine/Device Device See Rx Instructions .Route Qty: 1 0RF Rx Instructions: As directed Eliquis 5 mg tablet 5 mg PO BID Rx Instructions: patient has been instructed to stop 06/18/22 Discharge Orders: Discharge Order (Routine); Ordered 06/21/22 Ordered By: Dimas Lerma Diet: Advance to usual diet Activity on Discharge: As tolerated Stand Alone Forms: Patient Portal Discharge page Care Plan Goals: Full recovery from COPD and full work up of jaundice Health Concerns: Jaundice copd Plan of Treatment: Take Prednisone and use inhalers as directed and follow up with your Doctor in a week, call for appointment Use sapacer with inhalers Follow up with MRI as previously planned Assessment: As above
[2022-06-21 07:43] LABS: Alanine Aminotransferase 87 U/L (0-40); Albumin Level 3.7 g/dL (3.5-5.0); Alkaline Phosphatase 227 U/L (39-117); Anion Gap 15 (12-20); Aspartate Amino Transferase 53 U/L (5-37); Bilirubin Direct 9.4 mg/dL (0.0-0.5); Blood Urea Nitrogen 18 mg/dL (9-16); Calcium 9.3 mg/dL (8.4-10.2); Carbon Dioxide 23 mmol/L (22-29); Chloride 103 mmol/L (96-108); Creatinine Clr Calc Pharmacy 83.8; Estimated Glomerular Filt Rate > 60; Glucose Fasting 127 mg/dL (60-99); Potassium 4.3 mmol/L (3.3-5.1); Sodium 137 mmol/L (135-145); Total Protein 6.7 g/dL (6.5-8.0)
[2022-06-21 09:09] LABS: Bilirubin Total 13.4 mg/dL (0.0-1.0)
--- NOTE | 2022-06-21 09:09 | MHC.CM.PN ---
PATIENT IS DC HOME TODAY - SELF CARE HE DID NOT FEEL THE NEED FOR VNA SERVICES WHEN THIS SCRIPT WRITER WENT TO ROOM TO ASK IF HE STILL FEELS THE NEED FOR NO SERVICES, HE WAS ALREADY GONE.
== END 2022-06-21 08:00 | disposition home or self-care (01) ==
LOC: HO.ED 21:50 → HO.EDOVER 22:34 → HO.S3 06-20 00:19
PROVIDERS: Internal Medicine; Physician Assistant; Student in an Organized Health Care Education/Training Program; Admitting Provider Student in an Organized Health Care Education/Training Program; Emergency Provider Emergency Medicine; PCP Internal Medicine; Visit Provider Internal Medicine
DX: J44.1 Chronic obstructive pulmonary disease with (acute) exacerbation (principal); J40 Bronchitis, not specified as acute or chronic; R17 Unspecified jaundice; R06.02 Shortness of breath; N02.9 Recurrent and persistent hematuria with unspecified morphologic changes; Z20.822 Contact with and (suspected) exposure to COVID-19; I48.0 Paroxysmal atrial fibrillation; E78.00 Pure hypercholesterolemia, unspecified; G47.33 Obstructive sleep apnea (adult) (pediatric); Z87.891 Personal history of nicotine dependence; Z85.51 Personal history of malignant neoplasm of bladder; Z99.89 Dependence on other enabling machines and devices; Z79.899 Other long term (current) drug therapy
CPT/HCPCS: 0241U; 36415; 71045; 71275; 80048; 80053; 80076; 81001; 82803; 83605; 83690; 84484; 85025; 85610; 87040; 87086; 93005; 94640; 94660; 96365; 96366; 96375; 96376; 99218; 99285; J0696; J2920; J2930; Q9967

== ENCOUNTER 2022-06-21 08:27 | Outpatient (REF) | payer MEDICARE, SELFPAY ==
--- NOTE | ~2022-06-21 | MR_ITS ---
EXAMINATION: MR ABDOMEN WITHOUT AND WITH CONTRAST CLINICAL INFORMATION: 72-year-old male with history of jaundice. COMPARISON: Abdomen CT from 02/14/2021. Chest CT from 06/19/2022. TECHNIQUE: MR abdomen was performed on a high-field magnet without and with use of 9 mL intravenous Gadavist. Postcontrast images are performed in multiphase dynamic sequences. Imaging was performed in 3 planes. FINDINGS: LUNG BASES: Unremarkable. No pulmonary consolidation or pleural effusion at either lung base. LIVER: Liver has normal size, contour and parenchymal signal. No hepatic mass. No cirrhotic morphology or steatosis. No arterial phase hyperenhancing liver foci. Also, no liver lesions are seen on the venous phase postcontrast images. GALLBLADDER AND BILIARY TREE: Gallbladder is underdistended. There appears to be a small amount of calcified gravel or clustered small stones within the gallbladder on CT images of 06/19/2022. The gallbladder is not optimally evaluated on this MRI due to lack of distention. No discrete, measurable stones are seen within the gallbladder. No gallbladder wall thickening or pericholecystic fluid. Common bile duct has normal smooth contour and caliber; it measures 0.3 cm diameter. No evidence of choledocholithiasis or intrahepatic bile duct dilatation. PANCREAS: Incidentally noted is a 0.7 cm focus of fat signal intensity in the pancreatic head (i.e., small lipoma), unchanged compared to 02/14/2021. No suspicious pancreatic lesion. No pancreatic ductal dilatation, edema or peripancreatic fluid. SPLEEN: Normal. ADRENAL GLANDS: Normal. KIDNEYS: Kidneys are normal in size. No solid renal mass, hydronephrosis or perinephric edema. 4 cm simple cyst of the posterior upper pole of the left kidney. 6.7 cm cyst of the lower pole of the right kidney has a thin septation (Bosniak category 2 cyst). No renal imaging follow-up is recommended for Bosniak category 1 or category 2 cysts. BOWEL AND PERITONEUM: Stomach is unremarkable. No dilated loops of bowel. No bowel wall thickening or mesenteric fat stranding. No ascites. VASCULATURE: Abdominal aorta is normal in caliber. Mild atherosclerosis. Mild stenosis of the origin of the celiac trunk. Inferior vena cava is normal. Splenic, portal and hepatic veins are patent; no venous thrombosis. LYMPH NODES: No pathologic sized lymph nodes in the abdomen. SKELETAL: No suspicious bone lesions. MR/MR abdomen wo/w con IMPRESSION: * No acute imaging abnormalities in the abdomen. * Although there appears to be calcified gravel or small clustered stones in the gallbladder on recent chest CT imaging, no discrete stones are seen on this MRI, although gallbladder is underdistended. There are no findings of cholecystitis. No biliary tract obstruction. * Incidentally noted is a small lipoma within the pancreatic head. No suspicious pancreatic lesion.
== END 2022-06-21 08:28 | disposition home or self-care (01) ==
LOC: HO.MRI 08:27
PROVIDERS: Visit Provider Internal Medicine
DX: R17 Unspecified jaundice (principal)
CPT/HCPCS: 74183; A9585

== ENCOUNTER 2022-06-26 10:50 | Outpatient (REF) | payer MEDICARE, SELFPAY ==
[2022-06-26 11:48] LABS: INTERNATIONAL NORM RATIO 1.3 (0.9-1.1); Prothrombin Time 15.1 SEC (10.0-13.1)
[2022-06-26 12:34] LABS: Alanine Aminotransferase 187 U/L (0-40); Albumin Level 3.6 g/dL (3.5-5.0); Alkaline Phosphatase 207 U/L (39-117); Aspartate Amino Transferase 98 U/L (5-37); Bilirubin Direct 6.8 mg/dL (0.0-0.5); Bilirubin Total 10.2 mg/dL (0.0-1.0); Total Protein 6.6 g/dL (6.5-8.0)
== END 2022-06-26 10:51 | disposition home or self-care (01) ==
LOC: HO.LAB 10:50
PROVIDERS: PCP Internal Medicine; Visit Provider Internal Medicine
DX: J44.1 Chronic obstructive pulmonary disease with (acute) exacerbation (principal); J30.9 Allergic rhinitis, unspecified; G47.33 Obstructive sleep apnea (adult) (pediatric); R17 Unspecified jaundice; Z99.89 Dependence on other enabling machines and devices; Z79.899 Other long term (current) drug therapy
CPT/HCPCS: 36415; 80076; 85610; 99212

== ENCOUNTER 2022-06-29 09:16 | Outpatient (REF) | payer MEDICARE, SELFPAY ==
[2022-06-29 09:53] LABS: INTERNATIONAL NORM RATIO 1.3 (0.9-1.1)
[2022-06-29 14:20] LABS: Bilirubin Direct 6.1 mg/dL (0.0-0.5)
[2022-06-29 14:57] LABS: Alanine Aminotransferase 198 U/L (0-40); Albumin Level 3.8 g/dL (3.5-5.0); Alkaline Phosphatase 215 U/L (39-117); Aspartate Amino Transferase 85 U/L (5-37); Bilirubin Total 9.2 mg/dL (0.0-1.0)
== END 2022-06-29 09:17 | disposition home or self-care (01) ==
LOC: HO.LAB 09:16
PROVIDERS: Visit Provider Internal Medicine
DX: R17 Unspecified jaundice (principal)
CPT/HCPCS: 36415; 80076; 85610

== ENCOUNTER 2022-07-11 09:13 | Outpatient (REF) | payer MEDICARE, SELFPAY ==
[2022-07-11 10:28] LABS: INTERNATIONAL NORM RATIO 1.2 (0.9-1.1)
[2022-07-11 11:22] LABS: Alanine Aminotransferase 149 U/L (0-40); Albumin Level 3.6 g/dL (3.5-5.0); Alkaline Phosphatase 124 U/L (39-117); Aspartate Amino Transferase 65 U/L (5-37); Bilirubin Direct 2.5 mg/dL (0.0-0.5); Total Protein 6.5 g/dL (6.5-8.0)
== END 2022-07-11 09:14 | disposition home or self-care (01) ==
LOC: HO.LAB 09:13
PROVIDERS: PCP Internal Medicine; Visit Provider Internal Medicine
DX: R17 Unspecified jaundice (principal); R79.89 Other specified abnormal findings of blood chemistry; R05.9 Cough, unspecified; J30.9 Allergic rhinitis, unspecified; G47.33 Obstructive sleep apnea (adult) (pediatric); Z99.89 Dependence on other enabling machines and devices
CPT/HCPCS: 36415; 80076; 85610; 99212

== ENCOUNTER 2022-07-21 07:33 | Outpatient (REF) | payer MEDICARE, SELFPAY ==
--- NOTE | 2022-07-21 09:55 | PFT_ITS ---
INDICATION: COPD. SPIROMETRY: FEV1 to FVC 72% with an FEV1 of 2.09 L, which is 80% predicted and an FVC of 2.9 L, which is 80% predicted. No significant response to bronchodilators noted. Maximum voluntary ventilation 78% predicted. LUNG VOLUMES: Total lung capacity 82% predicted with an expiratory reserve volume of 20% predicted. DIFFUSION CAPACITY: DLCO of 56% predicted. Flow volume loop appears to have a component of narrowing of the flow volume loop. In addition to some concavity suggesting an obstructive physiology. Likely they counteract each other. COMPARISONS: None. INTERPRETATION: No definitive obstructive nor restrictive ventilatory defects identified. However, the patient does have what appears to be an obstructive physiology on his flow volume loop. No significant response to bronchodilators noted, and low mild decrease in maximum voluntary ventilation, which could be secondary to deconditioning although cannot rule out neuromuscular conditions. Lung volumes are low normal, and the patient does have a moderate diffusion impairment likely secondary to emphysema and other/or parenchymal lung conditions should be considered. Clinical correlation warranted. MD PARKER Conroy/[place] / [id number]
== END 2022-07-21 07:34 | disposition home or self-care (01) ==
LOC: HO.RESP 07:33
PROVIDERS: PCP Internal Medicine; Visit Provider Internal Medicine
DX: J44.9 Chronic obstructive pulmonary disease, unspecified (principal); R05.9 Cough, unspecified; J30.9 Allergic rhinitis, unspecified
CPT/HCPCS: 94060; 94727; 94729

== ENCOUNTER 2022-08-07 09:26 | Outpatient (REF) | payer MEDICARE, SELFPAY ==
[2022-08-07 13:41] LABS: Alanine Aminotransferase 48 U/L (0-40); Albumin Level 3.7 g/dL (3.5-5.0); Alkaline Phosphatase 82 U/L (39-117); Aspartate Amino Transferase 25 U/L (5-37); Bilirubin Direct 0.7 mg/dL (0.0-0.5); Bilirubin Total 1.4 mg/dL (0.0-1.0); Total Protein 6.2 g/dL (6.5-8.0)
== END 2022-08-07 09:27 | disposition home or self-care (01) ==
LOC: HO.LAB 09:26
PROVIDERS: PCP Internal Medicine; Visit Provider Internal Medicine
DX: R17 Unspecified jaundice (principal); R79.89 Other specified abnormal findings of blood chemistry
CPT/HCPCS: 36415; 80076

== ENCOUNTER → 2022-08-10 11:11 | Outpatient (REF) | payer MEDICARE, SELFPAY ==
--- NOTE | 2022-08-10 11:15 | HM_ITS ---
* Total monitoring time 3 days. * Underlying rhythm is sinus. * Average ventricular rate 77/Min. Range 64 to 113/min. * Rare PVCs. Low burden, < 1%. * Very rare PACs with some brief runs. * Lightheadedness in patient diary correlate with sinus rhythm. MTDD
== END ==
LOC: HO.CARD 11:11
PROVIDERS: PCP Internal Medicine; Visit Provider Nurse Practitioner Family
DX: I49.3 Ventricular premature depolarization (principal); R00.2 Palpitations
CPT/HCPCS: 93242

== ENCOUNTER 2022-08-14 07:37 | Outpatient (REF) | payer MEDICARE, SELFPAY ==
[2022-08-14 07:45] LABS: MANUAL DIFF FLAG NO
[2022-08-14 08:05] LABS: Basophils Percent Auto 0.7 % (0-2); Eosinophils Absolute Auto 0.3 X10*3/uL (0.0-0.4); Eosinophils Percent Auto 5.5 % (0-4); Hematocrit 41.9 % (42.0-52.0); Hemoglobin 14.5 g/dl (14.0-18.0); Imm Gran Abs Auto 0.01 X10*3/uL (0.00-0.03); Imm Gran Pct Auto 0.2 % (0.0-0.4); Lymphocytes Absolute Auto 2.2 X10*3/uL (1.2-4.9); Lymphocytes Percent Auto 38.4 % (20-40); Mean Corpuscular HGB Conc 34.6 g/dl (31.0-36.0); Mean Corpuscular Hemoglobin 31.3 pg (27.0-33.0); Mean Corpuscular Volume 90.5 fL (80.0-98.0); Mean Platelet Volume 9.5 fL (9.4-12.4); Monocytes Absolute Auto 0.5 X10*3/uL (0.1-1.2); Monocytes Percent Auto 9.2 % (2-11); Neutrophils Absolute Auto 2.7 x10*3/uL (2.0-8.3); Platelet Count 215 X10*3/uL (160-400); Red Blood Count 4.63 X10*6/uL (4.60-5.80); Red Cell Distribution Width 14.6 % (11.0-16.0); White Blood Count 5.8 X10*3/uL (4.8-10.8)
[2022-08-14 09:00] LABS: B Type Natriuretic Peptide 45 pg/mL (<100)
[2022-08-14 09:02] LABS: Alanine Aminotransferase 55 U/L (0-40); Albumin Level 3.8 g/dL (3.5-5.0); Alkaline Phosphatase 75 U/L (39-117); Anion Gap 9 (12-20); Aspartate Amino Transferase 27 U/L (5-37); Bilirubin Total 1.1 mg/dL (0.0-1.0); Blood Urea Nitrogen 13 mg/dL (9-16); Calcium 9.5 mg/dL (8.4-10.2); Carbon Dioxide 29 mmol/L (22-29); Chloride 108 mmol/L (96-108); Cholesterol 238 mg/dL; Estimated Glomerular Filt Rate > 60; Glucose Random 91 mg/dL (60-115); HDL Cholesterol 46 mg/dL; LDL Cholesterol Calculated 173 mg/dl; Potassium 4.4 mmol/L (3.3-5.1); Sodium 142 mmol/L (135-145); Total Protein 6.5 g/dL (6.5-8.0); Triglycerides 95 mg/dL
[2022-08-14 09:32] LABS: Folate 9.1 ng/mL (> or = 4.0); Free T4 (Free Thyroxine) 1.02 ng/dL (0.71-1.85); Prostate Specific Antigen Scr 0.99 ng/mL (<0.05-4.0); Thyroid Stimulating Hormone 1.27 uIU/mL (0.32-4.0); Vitamin B12 376 pg/mL (200-900)
== END 2022-08-14 07:38 | disposition home or self-care (01) ==
LOC: HO.LAB 07:37
PROVIDERS: PCP Internal Medicine; Visit Provider Internal Medicine
DX: I48.91 Unspecified atrial fibrillation (principal); E78.00 Pure hypercholesterolemia, unspecified; Z12.5 Encounter for screening for malignant neoplasm of prostate
CPT/HCPCS: 36415; 80053; 80061; 82607; 82746; 83880; 84153; 84439; 84443; 85025

== ENCOUNTER → 2022-08-15 09:51 | Outpatient (BNVA) | payer MEDICARE, SELFPAY | PROVIDERS: PCP Internal Medicine; Visit Provider Internal Medicine | DX: J45.909 Unspecified asthma, uncomplicated (principal); G47.33 Obstructive sleep apnea (adult) (pediatric); Z99.89 Dependence on other enabling machines and devices; Z87.891 Personal history of nicotine dependence | CPT/HCPCS: 99212 ==

== ENCOUNTER 2022-08-29 11:17 | Outpatient (REF) | payer MEDICARE, SELFPAY ==
[2022-08-29 12:42] LABS: Appearance Urine Clear; Color Urine Yellow; Glucose Urine UA Negative (Negative); Leukocyte Esterase Urine Moderate (2+) (Negative); Nitrite Urine Negative (Negative); Specific Gravity - Urine <= 1.005 (1.005-1.025); UMIC TRIGGER UACC YES; Urine Blood Small (1+) (Negative); Urine Ketones Negative (Negative); Urine Protein Negative (Neg-Trace)
[2022-08-29 12:52] LABS: Bacteria Urine 4+ (None Seen); Hyaline Casts Urine 0-2 /LPF (0-2); RBC Urine 0-2 /HPF (0-2); Squamous Epithelial Cell Urine 0-2 /HPF (0-2); UACC Culture Trigger YES
== END 2022-08-29 11:18 | disposition home or self-care (01) ==
LOC: HO.LAB 11:17
PROVIDERS: PCP Internal Medicine; Visit Provider Internal Medicine
DX: C67.9 Malignant neoplasm of bladder, unspecified (principal); R82.90 Unspecified abnormal findings in urine
CPT/HCPCS: 81001; 87086; 87088; 87186

== ENCOUNTER 2022-09-11 11:11 | Outpatient (REF) | payer MEDICARE, SELFPAY ==
[2022-09-11 12:15] LABS: Appearance Urine Cloudy; Color Urine Yellow; Glucose Urine UA Negative (Negative); Leukocyte Esterase Urine Large (3+) (Negative); Nitrite Urine Positive (Negative); PH 6.5 (5.0-9.0); Specific Gravity - Urine 1.015 (1.005-1.025); UMIC TRIGGER UACC YES; Urine Blood Negative (Negative); Urine Ketones Negative (Negative); Urine Protein Negative (Neg-Trace)
[2022-09-11 12:20] LABS: Bacteria Urine 4+ (None Seen); Hyaline Casts Urine 0-2 /LPF (0-2); RBC Urine 0-2 /HPF (0-2); Squamous Epithelial Cell Urine 0-2 /HPF (0-2); UACC Culture Trigger YES; WBC Urine >50 /HPF (0-5)
[2022-09-11 13:13] LABS: Alanine Aminotransferase 38 U/L (0-40); Albumin Level 3.9 g/dL (3.5-5.0); Alkaline Phosphatase 66 U/L (39-117); Aspartate Amino Transferase 21 U/L (5-37); Bilirubin Direct 0.4 mg/dL (0.0-0.5); Bilirubin Total 1.4 mg/dL (0.0-1.0); Iron 34 mcg/dL (45-160); Percent Iron Saturation 13 % (15-50); Total Iron Binding Capacity 268 mcg/dL (228-428); Total Protein 6.8 g/dL (6.5-8.0); Unsaturated Iron Binding 234 ug/dL
[2022-09-11 13:41] LABS: Ferritin 220 ng/mL (20-250)
== END 2022-09-11 11:12 | disposition home or self-care (01) ==
LOC: HO.LAB 11:11
PROVIDERS: Absent Provider Internal Medicine; PCP Internal Medicine; Visit Provider Internal Medicine
DX: R79.89 Other specified abnormal findings of blood chemistry (principal); E83.19 Other disorders of iron metabolism; R82.90 Unspecified abnormal findings in urine
CPT/HCPCS: 36415; 80076; 81001; 81003; 82728; 83540; 87086; 87088; 87186

== ENCOUNTER 2022-09-12 13:11 | Outpatient (REF) | payer MEDICARE, SELFPAY | END 2022-09-12 13:12 | disposition home or self-care (01) | LOC: HO.LAB 13:11 | PROVIDERS: PCP Internal Medicine; Visit Provider Urology | DX: C67.9 Malignant neoplasm of bladder, unspecified (principal); N39.0 Urinary tract infection, site not specified | CPT/HCPCS: 99212 ==

== ENCOUNTER 2022-10-03 14:41 | Outpatient (REF) | payer MEDICARE, SELFPAY ==
[2022-10-03 16:34] LABS: Urine Cytology See Pathology rpt
== END 2022-10-03 14:42 | disposition home or self-care (01) ==
LOC: HO.LAB 14:41
PROVIDERS: PCP Internal Medicine; Visit Provider Urology
DX: C67.9 Malignant neoplasm of bladder, unspecified (principal)
CPT/HCPCS: 52000; 88112; 99212

== ENCOUNTER → 2022-10-11 13:07 | Outpatient (BNVA) | payer MEDICARE, SELFPAY | PROVIDERS: PCP Internal Medicine; Visit Provider Internal Medicine | DX: R05.9 Cough, unspecified (principal); J45.909 Unspecified asthma, uncomplicated; K13.79 Other lesions of oral mucosa; G47.33 Obstructive sleep apnea (adult) (pediatric); Z57.4 Occupational exposure to toxic agents in agriculture; Z87.891 Personal history of nicotine dependence; Z99.89 Dependence on other enabling machines and devices | CPT/HCPCS: 99212 ==

== ENCOUNTER 2022-10-16 09:03 | Outpatient (REF) | payer MEDICARE, SELFPAY ==
--- NOTE | ~2022-10-16 | XR_ITS ---
EXAMINATION: XR CHEST CLINICAL INFORMATION: Cough. COMPARISON: None available. TECHNIQUE: 2 views of the chest were obtained. FINDINGS: No significant abnormality is noted involving the heart, lungs, mediastinum, bony thorax or soft tissues. XR/XR chest 2V IMPRESSION: Unremarkable chest examination.
[2022-10-16 13:22] LABS: Influenza A PCR NEGATIVE (Negative); Influenza B PCR NEGATIVE (Negative); Resp Syncy Virus RNA Qual PCR NEGATIVE (Negative); SARS COV2 PCR INHOUSE NEGATIVE (Negative)
== END 2022-10-16 09:04 | disposition home or self-care (01) ==
LOC: HO.LAB 09:03
PROVIDERS: PCP Internal Medicine; Visit Provider Nurse Practitioner Family
DX: R05.9 Cough, unspecified (principal); Z20.822 Contact with and (suspected) exposure to COVID-19
CPT/HCPCS: 0241U; 71046

== ENCOUNTER → 2022-11-27 13:09 | Outpatient (BNVA) | payer MEDICARE, SELFPAY | PROVIDERS: PCP Internal Medicine; Referring Provider Internal Medicine; Visit Provider Internal Medicine | DX: I48.0 Paroxysmal atrial fibrillation (principal); I47.1 Supraventricular tachycardia; I49.3 Ventricular premature depolarization; I44.7 Left bundle-branch block, unspecified; G47.33 Obstructive sleep apnea (adult) (pediatric) | CPT/HCPCS: 99212 ==

== ENCOUNTER → 2022-12-07 10:00 | Outpatient (BNVA) | payer MEDICARE, SELFPAY | PROVIDERS: PCP Internal Medicine; Visit Provider Internal Medicine | DX: J45.909 Unspecified asthma, uncomplicated (principal); G47.33 Obstructive sleep apnea (adult) (pediatric); Z99.89 Dependence on other enabling machines and devices | CPT/HCPCS: 94010; 99212 ==

== ENCOUNTER 2023-01-11 08:04 | Outpatient (REF) | payer MEDICARE, SELFPAY ==
[2023-01-11 08:15] LABS: MANUAL DIFF FLAG NO
[2023-01-11 08:35] LABS: Basophils Percent Auto 0.4 % (0-2); Eosinophils Absolute Auto 0.2 X10*3/uL (0.0-0.4); Eosinophils Percent Auto 2.4 % (0-4); Hematocrit 47.5 % (42.0-52.0); Hemoglobin 16.1 g/dl (14.0-18.0); Imm Gran Abs Auto 0.02 X10*3/uL (0.00-0.03); Imm Gran Pct Auto 0.3 % (0.0-0.4); Lymphocytes Absolute Auto 1.9 X10*3/uL (1.2-4.9); Lymphocytes Percent Auto 26.4 % (20-40); Mean Corpuscular HGB Conc 33.9 g/dl (31.0-36.0); Mean Corpuscular Hemoglobin 30.3 pg (27.0-33.0); Mean Corpuscular Volume 89.5 fL (80.0-98.0); Mean Platelet Volume 9.5 fL (9.4-12.4); Monocytes Absolute Auto 0.7 X10*3/uL (0.1-1.2); Neutrophils Absolute Auto 4.5 x10*3/uL (2.0-8.3); Neutrophils Percent Auto 61.5 % (45-73); Platelet Count 197 X10*3/uL (160-400); Red Blood Count 5.31 X10*6/uL (4.60-5.80); Red Cell Distribution Width 13.2 % (11.0-16.0); White Blood Count 7.2 X10*3/uL (4.8-10.8)
[2023-01-11 09:46] LABS: Appearance Urine Clear; Color Urine Yellow; Glucose Urine UA Negative (Negative); Leukocyte Esterase Urine Negative (Negative); Nitrite Urine Negative (Negative); PH 6.5 (5.0-9.0); Urine Blood Negative (Negative); Urine Ketones Negative (Negative); Urine Protein Negative (Neg-Trace)
[2023-01-11 09:49] LABS: Bacteria Urine None Seen (None Seen); Hyaline Casts Urine 0-2 /LPF (0-2); RBC Urine 0-2 /HPF (0-2); Squamous Epithelial Cell Urine 0-2 /HPF (0-2); WBC Urine 0-5 /HPF (0-5)
[2023-01-11 10:14] LABS: Alanine Aminotransferase 32 U/L (0-40); Alkaline Phosphatase 66 U/L (39-117); Anion Gap 15 (12-20); Aspartate Amino Transferase 23 U/L (5-37); Bilirubin Total 1.1 mg/dL (0.0-1.0); Blood Urea Nitrogen 14 mg/dL (9-16); Carbon Dioxide 24 mmol/L (22-29); Chloride 105 mmol/L (96-108); Estimated Glomerular Filt Rate > 60; Glucose Random 87 mg/dL (60-115); Sodium 140 mmol/L (135-145); Total Protein 7.3 g/dL (6.5-8.0)
[2023-01-11 10:19] LABS: Free T4 (Free Thyroxine) 1.01 ng/dL (0.71-1.85); Thyroid Stimulating Hormone 2.76 uIU/mL (0.32-4.0)
[2023-01-11 17:20] LABS: Urine Cytology See Pathology rpt
== END 2023-01-11 08:05 | disposition home or self-care (01) ==
LOC: HO.LAB 08:04
PROVIDERS: Urology; PCP Internal Medicine; Visit Provider Internal Medicine
DX: C67.9 Malignant neoplasm of bladder, unspecified (principal); Z79.899 Other long term (current) drug therapy
CPT/HCPCS: 36415; 52000; 80053; 81001; 84439; 84443; 85025; 88112; 99212

== ENCOUNTER 2023-01-12 15:14 | Outpatient (REF) | payer MEDICARE, SELFPAY | END 2023-01-12 15:15 | disposition home or self-care (01) | LOC: HO.SH 15:14 | PROVIDERS: Visit Provider Internal Medicine | DX: H90.3 Sensorineural hearing loss, bilateral (principal) | CPT/HCPCS: 92557 ==

== ENCOUNTER 2023-02-07 11:08 | Outpatient (AMB) | payer MEDICARE, SELFPAY ==
--- NOTE | 2023-02-07 11:08 | A.OFFVIS_ITS ---
Intake Intake Visit Reasons: Surgery questions/concerns Intake Note: Patient is present for Telephone surgery questions Urology Med: none Antibiotic Allergy:None Blood Thinner: Eliquis Allergies dronedarone [From Multaq] Allergy (Mild, Verified 03/15/23 15:51) Rash HPI HPI Comments History of Present Illness Details Volodymyr is a very pleasant male. He is a patient of Dr. Jackson. 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 Bladder Cancer low-grade superficial recurrent T1 2019, 07/05 06/06 CIS on biopsy [facility] - Dr Hugo Initial diagnosis superficial bladder cancer, recurrent Interventions - TURBT [place] 2019, [place] 06/2021 - 06/06 TURBT CIS with [facility] treatment Adjuvant therapy - BCG induction x2, completed induction Aug 2021 - Gemcitabine Check cystoscopy - 01/03 BCG changes with mucosal erythem a patches - 11/04 no evidence of recurrent disease - 04/06 posterior wall patch - TURBT CIS - 10/05 NAD, 01/05 bladder dome mucosal ch anges Cytology - 11/04 rare atypical, 04/06 suspicious, rare atypical Risk factors - 40 year pack per day smoking history - Agent [place] exposure Therapeutic plan - repeat TURBT with biopsy and fulgurati on and optimized mitomycin-C Urinary tract infection 08/07 E coli ESBL Trouble with recurrent urinary tract infections Culture shows ESBL E coli resistant to most oral antibiotics PFSH Medical History Asthma Bladder cancer Bladder cancer COPD (chronic obstructive pulmonary disease) COPD exacerbation Cough Erectile dysfunction GERD (gastroesophageal reflux disease) History of COVID-19 History of small bowel obstruction Hypercholesterolemia Jaundice LBBB (left bundle branch block) Obesity (BMI 30-39.9) Obstructive sleep apnea ANALY on CPAP PAF (paroxysmal atrial fibrillation) PAF (paroxysmal atrial fibrillation) Personal history of nicotine dependence Preop exam for internal medicine Preoperative cardiovascular examination PVC (premature ventricular contraction) SVT (supraventricular tachycardia) Surgical History History of appendectomy History of arthroplasty of left knee (~2019) History of arthroplasty of right knee (~2020) History of bladder surgery History of cataract surgery (~2020) History of foot surgery (~2021) History of laparotomy (~2020) History of meniscectomy of left knee (~2018) History of meniscectomy of right knee (~2011) Hx of transurethral destruction of bladder lesion Family History Father Lung cancer Mother History of breast cancer Sister Multiple myeloma Other Cough Social History Household Members: Spouse Housing: House Are you a primary animal care worker to a significant other at home: No Do you presently have visiting nurse or other home services: No Alcohol intake: former Patient Tobacco Use Status: Former Tobacco user Quit Date: 12 years ago Tobacco use type: Cigarette Years Smoked: (former smoker - onset 14yo, 1ppd x 46yrs, 45pyh, quit 2009) e-Cigarette/Vaping Use: Never Used Second Hand Smoke Exposure: No Advance Directives Date on File: 02/14/21 service: Yes ([employer] - served in [facility]) Current occupational status: retired Current occupational exposures/hazards: Yes (was exposed to [place] while serving in [employer]) Cognitive needs: No Hearing needs: Yes (hearing aide) Vision needs: No Review of Systems Const All systems reviewed & are unremarkable except as noted in HPI and below Reports no additional complaints Resp Reports no additional complaints GI Reports no additional complaints Reports as per HPI Musc Reports no additional complaints Physical Exam Telemedicine evaluation Appropriate responses Regular breathing rate and rhythm HEENT Head: Yes normal to inspection Ears: hearing grossly normal bilaterally Eyes General: appearance normal, both eyes and all related structures Neck Neck: Yes normal visual inspection Chest Chest palpation & inspection: normal inspection of the chest Resp Effort & Inspection: normal respiratory effort and able to speak in complete sentences Assessment & Plan Assessment & Plan (1) Bladder cancer: Comment: TURBT 06/28 Jami, 06/29 Dr Mike Farrell, 05/2016 BCG, 06/04 [place] pT1LG, 07/05 [place] pTaLG BCG induction Fulguration and mitomycin-C May 2022 TURBT May 2022 CIS Code(s): C67.9 - Malignant neoplasm of bladder, unspecified Plan Risks, benefits and alternatives to therapy were discussed. These include but are not limited to infection, bleeding, damage to local organs and tissues, need for further interventions. Anesthetic risks regarding cardiac arrhythmia, blood clots, and potential mortality were discussed. The patient understands the typical recovery time and the outpatient nature of the procedure. After consideration of these risks the patient gives full informed consent and they wish to move ahead with the procedure. Bladder biopsy fulguration Patient Instructions: Imaging studies, laboratory and physical exam results were discussed and reviewed in detail. No major barriers to patient understanding were identified. An opportunity to ask questions regarding the treatment plan was provided. All questions were answered. The patient expressed understanding and agreement with the above treatment plan. The patient is aware they should contact our office by phone for worsening of their current condition or the appearance of new urologic symptoms. Compliance is encouraged with any medications and followup testing that is ordered. It is a privilege to participate in the urologic care of your patient. If you have any questions or concerns regarding treatment for the above conditions, or other urologic issues, please do not hesitate to contact me. The office telephone contact is [phone]. This note is constructed using voice recognition software. While every effort has been made to ensure accuracy baler operator errors may have been included. Yours sincerely, Dr Darrin Alicea MD, [facility] - Urology Providers of Expert, Compassionate Care for the Genitourinary System Telehealth Telehealth Location of provider rendering services: practice address Location of patient: address on file Patient Identification confirmed using: Name, : Yes Telehealth method: voice only Patient verbally consented to treatment: Yes Patient verbally consented to billing insurance company: Yes Patient informed of any privacy concerns related to visit: Yes Coding Level of Care Code Tele Est Pt Level 3 (06226) Diagnoses Bladder cancer C67.9
== END 2023-02-07 14:00 ==
LOC: HO.HUSH 11:08
PROVIDERS: PCP Internal Medicine; Visit Provider Urology
DX: C67.9 Malignant neoplasm of bladder, unspecified (principal)
CPT/HCPCS: 99442

== ENCOUNTER → 2023-02-07 11:08 | Outpatient (BNVA) | payer MEDICARE, SELFPAY | PROVIDERS: PCP Internal Medicine; Visit Provider Urology ==

== ENCOUNTER 2023-02-08 09:26 | Outpatient (AMB) | payer MEDICARE, SELFPAY ==
--- NOTE | 2023-02-08 09:36 | MHC.OFFWIV ---
Intake Vital Signs 02/08/23 09:37 Height 5 ft 6 in Weight 211 lb 2 oz BMI 34.1 BP 106/64 Blood Pressure Location Rt brachial Position Sitting Respiration 14 Pulse 64 Pulse Source Pulse Oximeter Temp 98.6 F Temp Source Temporal Artery Scan Pulse Oximetry (%) 94 Oxygen Delivery Method Room Air Intake Visit Reasons: cough/congestion Intake Note: Patient presents today for cough and congestion x14 days accompanied by consistent chest pain worsening when coughing. Patient reports cough is productive and he's coughing up green stuff. Patient reports symptoms of headache and feeling short of breath. Patient states he has asthma and allergies. He see's ISABELLA in [id number], NP. Patient reports he is allergic to dust mites and mouse droppings. He also recently had an air quality test completed at home. Patient Tobacco Use Status: Former Tobacco user Quit Date: 12 years ago Client Experience Manager Required: No Accompanied by: Self / Same As Patient Allergies dronedarone [From MultaAdvise Only] Allergy (Mild, Verified 02/08/23 10:25) Rash Medication List - Last Reconciled 02/08/23 by Kiran Cole CNP albuterol sulfate 90 mcg/actuation 2 puffs inhalation Q4H PRN apixaban (Eliquis) 5 mg PO BID benzonatate 200 mg PO BID PRN cetirizine (Zyrtec) 10 mg PO DAILY PRN CPAP (CPAP Machine/Device) As directed fluticasone propion-salmeterol 500-50 mcg/dose (Advair Diskus) 1 inh inhalation BID ipratropium bromide 1 spray intranasal DAILY metoprolol tartrate 50 mg PO BID omeprazole 20 mg PO DAILY 90 days simvastatin 40 mg PO BEDTIME triamcinolone acetonide 0.1% 1 appl topical BID Do you need a note to return to daycare/school/sports/work: No HPI HPI Comments History of Present Illness Details 73-year-old male presents with complaints of persistent productive cough with green phlegm, sore throat, head/nasal/chest congestion. He reports associated sternal chest pain only while coughing, frontal headaches, dizziness, and shortness of breath. He notes that his current symptoms are cough, head/nasal/chest congestion. He states that he is not taking Zyrtec for the past 2 weeks. He has history of asthma and admits to taking his inhalers as prescribed. He also has h/o allergies and COPD. He states that he quit smoking 13 years ago. 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 He denies fever, chills, body aches, or weakness. [facility] Medical History Asthma Bladder cancer Bladder cancer COPD (chronic obstructive pulmonary disease) COPD exacerbation Cough Erectile dysfunction GERD (gastroesophageal reflux disease) History of COVID-19 History of small bowel obstruction Hypercholesterolemia Jaundice LBBB (left bundle branch block) Obesity (BMI 30-39.9) Obstructive sleep apnea ANALY on CPAP PAF (paroxysmal atrial fibrillation) PAF (paroxysmal atrial fibrillation) Personal history of nicotine dependence Preop exam for internal medicine Preoperative cardiovascular examination PVC (premature ventricular contraction) SVT (supraventricular tachycardia) Surgical History History of appendectomy History of arthroplasty of left knee (~2019) History of arthroplasty of right knee (~2020) History of bladder surgery History of cataract surgery (~2020) History of foot surgery (~2021) History of laparotomy (~2020) History of meniscectomy of left knee (~2018) History of meniscectomy of right knee (~2011) Hx of transurethral destruction of bladder lesion Family History Father Lung cancer Mother History of breast cancer Sister Multiple myeloma Other Cough Social History Household Members: Spouse Housing: House Do you presently have visiting nurse or other home services: No Alcohol intake: former Patient Tobacco Use Status: Former Tobacco user Quit Date: 12 years ago Tobacco use type: Cigarette Years Smoked: (former smoker - onset 14yo, 1ppd x 46yrs, 45pyh, quit 2009) e-Cigarette/Vaping Use: Never Used Second Hand Smoke Exposure: No Advance Directives Date on File: 02/14/21 service: Yes ( [employer] - served in [facility]) Current occupational status: retired Current occupational exposures/hazards: Yes (was exposed to Agent [place] while serving in [employer]) Cognitive needs: No Hearing needs: Yes (hearing aide) Vision needs: No Review of Systems Const Details: Const Denies chills, Reports fatigue, Denies fever(s), Denies headache(s) and Denies weakness ENT Reports as per HPI Resp Reports cough, Denies dyspnea, Denies wheezing and Denies other (shortness of breath) Cardio Denies chest pain, Denies lightheadedness, Denies dyspnea and Denies other (palpitations) Neuro Reports dizziness, Denies headache(s), Denies numbness, Denies tingling and Denies weakness Psych Denies anxiety, Denies depression, Denies memory?loss Endo Denies cold intolerance, Reports fatigue, Denies heat intolerance, Denies polydipsia and Denies polyuria Aller/Immun Denies wheezing Physical Exam Vital Signs: Last Vital Signs Temp 98.6 F 02/08/23 09:37 Pulse 64 02/08/23 09:37 Resp 14 02/08/23 09:37 BP 106/64 02/08/23 09:37 Pulse Ox 94 02/08/23 09:37 Oxygen Delivery Method Room Air 02/08/23 09:37 BMI result Body Mass Index 34.1 Const Other: Const General: well developed; No acute distress Nutritional Appearance: well nourished Orientation/consciousness: patient oriented x3 HEENT Head: Yes normocephalic and Yes atraumatic Eyes General: appearance normal, both eyes and all related structures Pupils: Equal, round and reactive pupils present EOM: EOMs intact bilaterally Resp Effort & Inspection: normal respiratory effort Auscultation: clear to auscultation and slightly diminished bilaterally Cardio Rate: regular rate Rhythm: regular rhythm Heart sounds: S1 normal heart sound present, S2 normal heart sound present, no gallops, no murmurs and no rubs Bruits: no abdominal aortic bruits and no carotid bruits Neuro General: patient oriented x3 and gait normal, no focal neuro deficit Cranial nerves: Yes Equal, round and reactive pupils present Psych Affect: normal affect Assessment & Plan Assessment & Plan (1) Cough: Comment: Code(s): R05.9 - Cough, unspecified Plan: Likely allergies or asthma/COPD exacerbation No exam evidence of bacterial infection Prednisone and singular ordered. Take as prescribed Chest x-ray ordered Adequate hydration and rest encouraged Follow-up with container packer operator as planned Return with worsening or new symptoms Verbalized understanding and agreed with treatment plan. Orders: Orders XR chest 2V Today R05.9 - Cough, unspecified Medications: New montelukast (Singulair) 10 mg PO DAILY 30 tabs 3RF 30 days prednisone 20 mg PO DAILY 5 tabs 0RF 5 days Coding Level of Care Code Est Pt Level 3 (09052) Diagnoses Cough R05.9 Time Spent (min) 25
[2023-02-08 09:37] VITALS: BP 106/64; PULSE 64; RESP 14; TEMP 37; O2SAT 94; BMI 34.1
== END 2023-02-08 10:49 | disposition home or self-care (01) ==
PROVIDERS: PCP Internal Medicine; Visit Provider Nurse Practitioner Family
DX: R05.9 Cough, unspecified (principal)
CPT/HCPCS: 99213

== ENCOUNTER 2023-02-08 14:38 | Outpatient (REF) | payer MEDICARE, SELFPAY ==
--- NOTE | ~2023-02-08 | XR_ITS ---
EXAMINATION: XR CHEST CLINICAL INFORMATION: Cough. COMPARISON: 10/16/2022 and 06/19/2022. TECHNIQUE: 2 views of the chest were obtained. FINDINGS: There is discoid disease seen about the left lower lobe laterally. No significant confluent parenchymal disease is appreciated. No pneumothorax or pleural effusion. Heart normal size. No evidence of pulmonary edema. Status post previously healed right clavicle fracture. XR/XR chest 2V IMPRESSION: No significant acute parenchymal disease.
== END 2023-02-08 14:39 | disposition home or self-care (01) ==
LOC: HO.XRAY 14:38
PROVIDERS: PCP Internal Medicine; Visit Provider Nurse Practitioner Family
DX: R05.9 Cough, unspecified (principal)
CPT/HCPCS: 71046

== ENCOUNTER 2023-02-19 13:45 | Day surgery (SDC) | payer MEDICARE, SELFPAY ==
[2023-02-19 14:22] VITALS: BP 154/85; PULSE 61; RESP 18; TEMP 36.2; O2SAT 98; BMI 33.9
--- NOTE | 2023-02-19 16:16 | HO.ANESPROP2 ---
[facility] Active Problems Active Problems: All Active Problems (Updated 12/07/22 @ 10:44 by Ramin Christie MD) Hearing difficulty of both ears (Acute) Encounter for subsequent annual wellness visit (AWV) in Medicare patient (Acute) Cough (Acute) Chronic UTI (urinary tract infection) (Acute) Bladder cancer (Acute) Asthma (Acute) Hypercholesterolemia (Acute) Atrial fibrillation (Acute) PVC (premature ventricular contraction) (Acute) COPD (chronic obstructive pulmonary disease) (Acute) Jaundice (Acute) ANALY on CPAP (Acute) Allergic rhinitis (Acute) Allergic dermatitis (Acute) LBBB (left bundle branch block) (Acute) Personal history of nicotine dependence (Acute) Past Medical History Medical History Asthma Bladder cancer Bladder cancer COPD (chronic obstructive pulmonary disease) COPD exacerbation Cough Erectile dysfunction GERD (gastroesophageal reflux disease) History of COVID-19 History of small bowel obstruction Hypercholesterolemia Jaundice LBBB (left bundle branch block) Obesity (BMI 30-39.9) Obstructive sleep apnea ANALY on CPAP PAF (paroxysmal atrial fibrillation) PAF (paroxysmal atrial fibrillation) Personal history of nicotine dependence Preop exam for internal medicine Preoperative cardiovascular examination PVC (premature ventricular contraction) SVT (supraventricular tachycardia) Family History Family History Father Lung cancer Mother History of breast cancer Sister Multiple myeloma Other Cough Family history of problems with anesthesia: No Surgical History Surgical History History of appendectomy History of arthroplasty of left knee (~2019) History of arthroplasty of right knee (~2020) History of bladder surgery History of cataract surgery (~2020) History of foot surgery (~2021) History of laparotomy (~2020) History of meniscectomy of left knee (~2019) History of meniscectomy of right knee (~2011) Hx of transurethral destruction of bladder lesion History of Problems with Anesthesia: No Social History Social History Household Members: Spouse Housing: House Are you a primary career portals teacher to a significant other at home: No Do you presently have visiting nurse or other home services: No Alcohol intake: former Patient Tobacco Use Status: Former Tobacco user Quit Date: 12 years ago Tobacco use type: Cigarette Years Smoked: (former smoker - onset 14yo, 1ppd x 46yrs, 45pyh, quit 2009) e-Cigarette/Vaping Use: Never Used Second Hand Smoke Exposure: No Have you been hit, kicked, punched, or otherwise hurt by someone within the past year? If so, by whom?: No Are you DNR?: No Advance Directives: No Advance Directives Information Provided: Yes Advance Directives Date on File: 02/14/21 Recently lost weight without trying: No Eating poorly because of decreased appetite: No Nutrition Risks: No Nutritional Risk service: Yes ([employer] - served in [facility] [place]) Current occupational status: retired Current occupational exposures/hazards: Yes (was exposed to Agent [place] while serving in [employer]) Cognitive needs: No Hearing needs: Yes (hearing aide) Vision needs: No Meds Allergies Allergy/AdvReac Type Severity Reaction Status Date / Time dronedarone [From Multaq] Allergy Mild Rash Verified 02/08/23 10:25 Active Medications: Current Medications Albuterol Sulfate (Albuterol Sulfate (0.083%) 2.5 Mg/3 Ml Vial.Neb) 2.5 mg INHALE ONCE PRN PRN Reason: Shortness of Breath/Wheezing Mitomycin 40 mg/ Sodium (Chloride) 20 mls @ 10 mls/hr INTRAVESIC ONCE PANCHITO Stop: 02/19/23 23:59 Lactated Ringer's (Lr) 1,000 mls @ 100 mls/hr IVCONT .Q10H [facility] Home Medications Medication Instructions Recorded Confirmed Last Taken Type apixaban 5 mg tablet (Eliquis) 5 mg PO BID 11/09/21 02/08/23 05/19/22 History albuterol sulfate 90 mcg/actuation 2 puff inhalation Q4H PRN 06/19/22 02/08/23 Unknown History aerosol inhaler shortness of breath or wheezing triamcinolone acetonide 0.1 % 1 appl topical BID 06/19/22 02/08/23 Unknown History topical cream ipratropium bromide 21 mcg (0.03 1 spray intranasal DAILY 11/27/22 02/08/23 Unknown History %) nasal spray benzonatate 200 mg capsule 200 mg PO BID PRN 11/28/22 02/08/23 Unknown History cetirizine 10 mg tablet (Zyrtec) 10 mg PO DAILY PRN 11/28/22 02/08/23 Unknown History fluticasone 500 mcg-salmeterol 50 1 inh inhalation BID 12/07/22 02/08/23 Unknown History mcg/dose blistr powdr for inhalation (Advair Diskus) Exam Exam Date and Time: February 19, 2023 1616 Height,Weight and Vital Signs: Height 5 ft 6 in Weight 95.254 kg Last Vital Signs Temp 97.1 F 02/19/23 14:22 Pulse 61 02/19/23 14:22 Resp 18 02/19/23 14:22 BP 154/85 H 02/19/23 14:22 Pulse Ox 98 02/19/23 14:22 O2 Del Method Room Air 02/19/23 14:22 Airway Mallampati Class: II TM Dist: >3cm Neck ROM: Full Assessment and Plan Assessment Anesthesia Assessment: Anesthesia Plan Discussed and Chart Reviewed Final Anesthetic Review Family History of Problems with Anesthesia: No History of Problems with Anesthesia: No NPO: Yes ASA Class: III Final Preanesthetic Review: No Changes in Pt Med Stat, Meds/Allgs Chart Reviewed, Consent Obtained/Reviewed and Anes Risks/Benef Reviewed Patient Risk: Intermediate Procedure Risk: Low Anesthetic Plan Anesthetic Plan: GA Disposition: Standard PACU
--- NOTE | 2023-02-19 16:20 | MHC.SHP ---
Pre-Procedural Eval Section A Date of Service: 02/19/23 The patient is an INPATIENT: No Changes since office visit: No Cold of Flu in the past 2 weeks, No New Medical Problems, No Changes in Medication and No Patient answered all questions The History & Physical has been completed within 30 days and I have reviewed it.: Yes Section B Chief Complaint: Malignant neoplasm of bladder, unspecified Details of Present Illness: cystoscopy, TURBT with mitomycin-C Allergies: Allergies Allergy/AdvReac Type Severity Reaction Status Date / Time dronedarone [From Multaq] Allergy Mild Rash Verified 02/08/23 10:25 Plan Diagnosis/Plan: Unchanged ( cystoscopy, TURBT with mitomycin-C) I have reviewed the history and physical and performed a pertinent physical examination on my patient. No changes have occurred unless specified. Time Spent With Patient Time: Total time managing care of this patient today ____ minutes.
[2023-02-19 17:48] VITALS: BP 125/71; PULSE 65; RESP 17; TEMP 36.4; O2SAT 96
[2023-02-19 17:53] VITALS: BP 131/72; PULSE 66; RESP 16; O2SAT 96
[2023-02-19 17:58] VITALS: BP 131/77; PULSE 62; RESP 16; O2SAT 95
[2023-02-19 18:03] VITALS: BP 137/77; PULSE 67; RESP 16; O2SAT 95
[2023-02-19 18:18] VITALS: PULSE 63; RESP 16; TEMP 36.1; O2SAT 95
--- NOTE | 2023-02-22 16:17 | W.PM.OPN ---
Operative Note Operative Note Date of Service: 02/19/23 Narrative: PreOperative Diagnosis: bladder cancer Post Operative Diagnosis: bladder cancer Procedure: TURBT Surgeon: Dr Darrin Alicea Anesthesia: general Indications for procedure: Recurrent superficial bladder cancer - prior resection 06/06 carcinoma in Situ Has undergone topical therapy Flat lesions seen within office cystoscopy Procedure: After informed consent was verified the patient was brought to the operating room and placed in a supine position. Anesthesia was administered per protocol. The patient was placed in a modified dorsal lithotomy position and prepped and draped in a sterile fashion. Safety pause time-out was performed. Antibiotics were confirmed. A 26 [place] continuous flow resectoscope was inserted per urethra. The visual obturator was used in order to minimize potential for urethral damage. The patient tolerated the procedure well. They were extubated in the operating room and transferred in stable condition to the recovery area. Will require 3 week boost mitomycin-C with cytarabine ongoing every 6 months Pathology: Drains:
== END 2023-02-19 18:23 | disposition home or self-care (01) ==
PROVIDERS: PCP Internal Medicine; Visit Provider Urology
PROC: 0TBB8ZZ Excision of Bladder, Via Natural or Artificial Opening Endoscopic (ICD-10-PCS; CPT 51720; principal; 2023-02-19 15:30)
DX: C67.9 Malignant neoplasm of bladder, unspecified (principal)
CPT/HCPCS: 51720; J1100; J1956; J2250; J2405; J3010; J9280

== ENCOUNTER → 2023-02-19 13:45 | Outpatient (BNV) | payer MEDICARE, SELFPAY | PROVIDERS: PCP Internal Medicine; Visit Provider Urology | DX: C67.9 Malignant neoplasm of bladder, unspecified (principal) | CPT/HCPCS: 52234 ==

== ENCOUNTER 2023-02-23 08:56 | Outpatient (AMB) | payer MEDICARE, SELFPAY ==
--- NOTE | 2023-02-23 09:33 | AM.OFFWIN_ITS ---
Intake Vital Signs 02/23/23 09:41 Height 5 ft 6 in Weight 97.069 kg BMI 34.5 BP 110/62 Blood Pressure Location Lt brachial Position Sitting Pulse 74 Pulse Source Pulse Oximeter Temp 97.8 F Temp Source Temporal Artery Scan Pulse Oximetry (%) 95 Oxygen Delivery Method Room Air Intake Visit Reasons: EP, sinus and chest congestion [phone] Intake Note: Pt is here c/o chest congestion and ear discomfort. Pt states he also has a bad cough for the last Patient Tobacco Use Status: Former Tobacco user Quit Date: 12 years ago Allergies dronedarone [From Multaq] Allergy (Mild, Verified 02/23/23 09:33) Rash Do you need a note to return to daycare/school/sports/work: No HPI HPI Comments History of Present Illness Details 73-year-old male presents with recurrent upper respiratory symptoms, states that he has been treated multiple times with prednisone, Singulair, and Tessalon Perles with poor effect. Patient states that the symptoms have worsened, states that he has pressure in his ears, a sore throat, cough, and feels like his chest is congested. He does have a history of hypertension, AFib, on Eliquis. Patient denies chest pain or pressure, palpitations, shortness of breath on exertion, edema, weakness, dizziness, measured fevers and chills. [facility] Medical History Asthma Bladder cancer Bladder cancer COPD (chronic obstructive pulmonary disease) COPD exacerbation Cough Erectile dysfunction GERD (gastroesophageal reflux disease) History of COVID-19 History of small bowel obstruction Hypercholesterolemia Jaundice LBBB (left bundle branch block) Obesity (BMI 30-39.9) Obstructive sleep apnea ANALY on CPAP PAF (paroxysmal atrial fibrillation) PAF (paroxysmal atrial fibrillation) Personal history of nicotine dependence Preop exam for internal medicine Preoperative cardiovascular examination PVC (premature ventricular contraction) SVT (supraventricular tachycardia) Surgical History History of appendectomy History of arthroplasty of left knee (~2019) History of arthroplasty of right knee (~2020) History of bladder surgery History of cataract surgery (~2020) History of foot surgery (~2021) History of laparotomy (~2020) History of meniscectomy of left knee (~2018) History of meniscectomy of right knee (~2011) Hx of transurethral destruction of bladder lesion Family History Father Lung cancer Mother History of breast cancer Sister Multiple myeloma Other Cough Social History Household Members: Spouse Housing: House Are you a primary care tech to a significant other at home: No Do you presently have visiting nurse or other home services: No Alcohol intake: former Patient Tobacco Use Status: Former Tobacco user Quit Date: 12 years ago Tobacco use type: Cigarette Years Smoked: (former smoker - onset 14yo, 1ppd x 46yrs, 45pyh, quit 2009) e-Cigarette/Vaping Use: Never Used Second Hand Smoke Exposure: No Advance Directives Date on File: 02/14/21 service: Yes ( [employer] - served in [facility]) Current occupational status: retired Current occupational exposures/hazards: Yes (was exposed to Agent [place] while serving in [employer]) Cognitive needs: No Hearing needs: Yes (hearing aide) Vision needs: No Review of Systems Const Details: Constitutional: No Fever, No Chills ENT/Mouth: Positive bilateral Ear Pain, positive Hoarseness, positive sore throat Eyes: No Eye Pain, No Swelling, No Redness, No Foreign Body Cardiovascular: No Chest Pain, No SOB Respiratory: positive Cough, No Dyspnea Gastrointestinal: No Nausea, No Vomiting, No Diarrhea, No abdominal Pain Genitourinary: No Dysuria, No Hematuria Musculoskeletal: No joint pain, No Myalgias, No Joint Swelling Skin: No Skin lacerations, No rash Neuro: No Weakness, No Dizziness, No Headache All systems reviewed & are unremarkable except as noted in HPI and below Physical Exam Vital Signs: Last Vital Signs Temp 97.8 F 02/23/23 09:41 Pulse 74 02/23/23 09:41 BP 110/62 02/23/23 09:41 Pulse Ox 95 02/23/23 09:41 Oxygen Delivery Method Room Air 02/23/23 09:41 BMI result Body Mass Index 34.5 Appearance: Alert. Oriented X3. No acute distress. Eyes: Pupils equal, round and reactive to light. ENT: Pharynx normal. Tympanic membranes and canals bilaterally intact. No indication of acute findings. Neck: Normal inspection. Neck supple. CVS: Normal heart rate and rhythm. Pulses normal. Respiratory: No respiratory distress. Expiratory wheezing noted bilaterally. Skin: Skin warm and dry. Normal skin color. Normal skin turgor. Extremities: No lower extremity edema. Gait well balanced well coordinated. Neuro: No motor deficit. No sensory deficit. Cranial nerves 2-12 intact. Assessment & Plan Assessment & Plan (1) Cough: Comment: Code(s): R05.9 - Cough, unspecified Plan 73-year-old male presents with recurrent upper respiratory symptoms, states that he has been treated multiple times with prednisone, Singulair, and Tessalon Perles with poor effect. Patient states that the symptoms have worsened, states that he has pressure in his ears, a sore throat, cough, and feels like his chest is congested. He does have a history of hypertension, AFib, on Eliquis. Patient denies chest pain or pressure, palpitations, shortness of breath on exertion, edema, weakness, dizziness, measured fevers and chills. Considering this patient has been evaluated multiple times over the past several months for upper respiratory symptoms, I do suggest that this patient follow up with ENT as well as director information. His house was just tested for mold, and he is going through mold remediation. I do have concerns for bronchitis, bacterial bronchitis, pneumonia, will treat with antibiotic doxycycline and azithromycin as patient has not been successful on a singular antibiotic over the past year. Supportive measures with Coricidin, and Tessalon Perles. Patient will contact his director information today, as well as ENT for appointments. Patient verbalized understanding of discharge instructions. Verbalized understandings of signs and symptoms indicating need for emergent intervention. Medications: New dextromethorphan-guaifenesin 10-200 mg (Coricidin HBP Chest Congestion-Cough) 1 tab-cap PO Q8H PRN 30 caps 1RF cough benzonatate 100 mg PO TID PRN 20 caps 0RF cough azithromycin (Zithromax Z-Jacobo) For 250 mg dose pack: take 500 mg today (day 1), then 250 mg for 4 days (days 2-5) PO 6 tabs 0RF doxycycline monohydrate 100 mg PO BID 7 days 14 caps 0RF Patient Instructions: You were evaluated for upper respiratory symptoms. Please take doxycycline 100 mg every 12 hours for the next 7 days. Take azithromycin Z-Jacobo as directed. You will take 500 mg on the 1st day, and 250 mg for the following 4 days. Use Coricidin decongestant for the next 10 days, then as needed. Follow up with ENT and director information for your continued upper respiratory symptoms. Thank you for choosing this urgent care for evaluation. Please follow-up with primary care physician as needed. Return to the emergency department for any new, concerning, or worsening symptoms. Coding Level of Care Code Est Pt Level 3 (42124) Diagnoses Cough R05.9
[2023-02-23 09:41] VITALS: BP 110/62; PULSE 74; TEMP 36.6; O2SAT 95; BMI 34.5
== END 2023-02-23 10:23 | disposition home or self-care (01) ==
PROVIDERS: PCP Internal Medicine; Visit Provider Nurse Practitioner Family
DX: R05.9 Cough, unspecified (principal)
CPT/HCPCS: 99213

== ENCOUNTER 2023-02-27 14:54 | Outpatient (AMB) | payer MEDICARE, SELFPAY ==
--- NOTE | 2023-02-27 14:55 | A.OFFVIS_ITS ---
Intake Intake Visit Reasons: 2 week post op (TURBT daryn) Intake Note: Patient is present for Telephone post op Urology Med: none Antibiotic Allergy: none Blood Thinner: Eliquis [facility] Allergies dronedarone [From Multaq] Allergy (Mild, Verified 02/27/23 14:56) Rash HPI HPI Comments History of Present Illness Details Volodymyr is a very pleasant male. He is a patient of Dr. Jackson. 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, 07/05 06/06 CIS on biopsy [place] [facility] - Dr Hugo - [facility] Initial diagnosis superficial bladder cancer, recurrent Interventions - TURBT [place] 2019, [place] 06/2021 - 06/06 TURBT CIS with MMC treatment - 03/07 fulguration bladder dome Adjuvant therapy - BCG induction x2, completed induction Aug 2021 - Gemcitabine - 03/07 2 week MMC with Cytarabine boost Check cystoscopy - 01/03 BCG changes with mucosal erythema patches - 11/04 no evidence of recurrent disease - 04/06 posterior wall patch - TURBT CIS - 10/05 NAD, 01/05 bladder dome mucosal changes Cytology - 11/04 rare atypical, 04/06 suspicious, 10/05 rare atypical Risk factors - 40 year pack per day smoking history - Agent [place] exposure Therapeutic plan - 3 week boost treatment Urinary tract infection 08/07 E coli ESBL Trouble with recurrent urinary tract infections Culture shows ESBL E coli resistant to most oral antibiotics [facility] Medical History Asthma Bladder cancer Bladder cancer COPD (chronic obstructive pulmonary disease) COPD exacerbation Cough Erectile dysfunction GERD (gastroesophageal reflux disease) History of COVID-19 History of small bowel obstruction Hypercholesterolemia Jaundice LBBB (left bundle branch block) Obesity (BMI 30-39.9) Obstructive sleep apnea ANALY on CPAP PAF (paroxysmal atrial fibrillation) PAF (paroxysmal atrial fibrillation) Personal history of nicotine dependence Preop exam for internal medicine Preoperative cardiovascular examination PVC (premature ventricular contraction) SVT (supraventricular tachycardia) Surgical History History of appendectomy History of arthroplasty of left knee (~2019) History of arthroplasty of right knee (~2020) History of bladder surgery History of cataract surgery (~2020) History of foot surgery (~2021) History of laparotomy (~2020) History of meniscectomy of left knee (~2018) History of meniscectomy of right knee (~2011) Hx of transurethral destruction of bladder lesion Family History Father Lung cancer Mother History of breast cancer Sister Multiple myeloma Other Cough Social History Household Members: Spouse Housing: House Are you a primary care transition coordinator to a significant other at home: No Do you presently have visiting nurse or other home services: No Alcohol intake: former Patient Tobacco Use Status: Former Tobacco user Quit Date: 12 years ago Tobacco use type: Cigarette Years Smoked: (former smoker - onset 14yo, 1ppd x 46yrs, 45pyh, quit 2009) e-Cigarette/Vaping Use: Never Used Second Hand Smoke Exposure: No Advance Directives Date on File: 02/14/21 service: Yes ( [employer] - served in [facility] [facility]) Current occupational status: retired Current occupational exposures/hazards: Yes (was exposed to Agent [place] while serving in [employer]) Cognitive needs: No Hearing needs: Yes (hearing aide) Vision needs: No Review of Systems Const All systems reviewed & are unremarkable except as noted in HPI and below Reports no additional complaints Resp Reports no additional complaints GI Reports no additional complaints Reports as per HPI Musc Reports no additional complaints Physical Exam Telemedicine evaluation Appropriate responses Regular breathing rate and rhythm HEENT Head: Yes normal to inspection Ears: hearing grossly normal bilaterally Eyes General: appearance normal, both eyes and all related structures Neck Neck: Yes normal visual inspection Chest Chest palpation & inspection: normal inspection of the chest Resp Effort & Inspection: normal respiratory effort and able to speak in complete sentences Assessment & Plan Assessment & Plan (1) Bladder cancer: Comment: TURBT 06/28 pTaLG, 06/29 Dr Mckeon pTaLG, 05/2016 BCG, 06/04 [place] pT1LG, 07/05 [place] pTaLG BCG induction Fulguration and mitomycin-C May 2022 TURBT May 2022 CIS Code(s): C67.9 - Malignant neoplasm of bladder, unspecified Plan Persistent mitomycin-C with cytarabine 3 week Patient Instructions: Imaging studies, laboratory and physical exam results were discussed and reviewed in detail. No major barriers to patient understanding were identified. An opportunity to ask questions regarding the treatment plan was provided. All questions were answered. The patient expressed understanding and agreement with the above treatment plan. The patient is aware they should contact our office by phone for worsening of their current condition or the appearance of new urologic symptoms. Compliance is encouraged with any medications and followup testing that is ordered. It is a privilege to participate in the urologic care of your patient. If you have any questions or concerns regarding treatment for the above conditions, or other urologic issues, please do not hesitate to contact me. The office telephone contact is [phone]. This note is constructed using voice recognition software. While every effort has been made to ensure accuracy subway repair supervisor errors may have been included. Yours sincerely, Dr Darrin Alicea MD, [facility] - Urology Providers of Expert, Compassionate Care for the Genitourinary System Telehealth Telehealth Location of provider rendering services: practice address Location of patient: address on file Patient Identification confirmed using: Name, : Yes Telehealth method: video Patient verbally consented to treatment: Yes Patient verbally consented to billing insurance company: Yes Patient informed of any privacy concerns related to visit: Yes Coding Level of Care Code Tele Est Pt Level 3 (23408) Diagnoses Bladder cancer C67.9
== END 2023-02-27 16:16 | disposition home or self-care (01) ==
LOC: HO.HUSH 14:54
PROVIDERS: PCP Internal Medicine; Visit Provider Urology
DX: C67.8 Malignant neoplasm of overlapping sites of bladder (principal)
CPT/HCPCS: 99213

== ENCOUNTER → 2023-02-27 14:54 | Outpatient (BNVA) | payer MEDICARE, SELFPAY | PROVIDERS: PCP Internal Medicine; Visit Provider Urology | DX: C67.9 Malignant neoplasm of bladder, unspecified (principal) | CPT/HCPCS: Q3014 ==

== ENCOUNTER 2023-03-05 07:13 | Outpatient (REF) | payer MEDICARE, SELFPAY ==
[2023-03-05 08:57] LABS: Alanine Aminotransferase 29 U/L (0-40); Albumin Level 3.9 g/dL (3.5-5.0); Alkaline Phosphatase 57 U/L (39-117); Anion Gap 11 (12-20); Aspartate Amino Transferase 20 U/L (5-37); Bilirubin Total 0.4 mg/dL (0.0-1.0); Blood Urea Nitrogen 17 mg/dL (9-16); Calcium 9.5 mg/dL (8.4-10.2); Carbon Dioxide 27 mmol/L (22-29); Chloride 108 mmol/L (96-108); Cholesterol 145 mg/dL; Estimated Glomerular Filt Rate > 60; Glucose Random 96 mg/dL (60-115); HDL Cholesterol 50 mg/dL; LDL Cholesterol Calculated 81 mg/dl; Potassium 4.2 mmol/L (3.3-5.1); Sodium 142 mmol/L (135-145); Total Protein 7.1 g/dL (6.5-8.0); Triglycerides 70 mg/dL
[2023-03-05 09:04] LABS: Thyroid Stimulating Hormone 1.68 uIU/mL (0.32-4.0)
== END 2023-03-05 07:14 | disposition home or self-care (01) ==
LOC: HO.LAB 07:13
PROVIDERS: PCP Internal Medicine; Visit Provider Internal Medicine
DX: E78.00 Pure hypercholesterolemia, unspecified (principal)
CPT/HCPCS: 36415; 80053; 80061; 84443

== ENCOUNTER 2023-03-15 15:38 | Outpatient (AMB) | payer MEDICARE, SELFPAY ==
[2023-03-15 15:39] VITALS: BP 112/82; PULSE 83; O2SAT 96; BMI 34.1
--- NOTE | 2023-03-15 15:39 | A.OFFPC_ITS ---
Vital Signs 03/15/23 15:39 Height 5 ft 6 in Weight 211 lb BMI 34.1 BP 112/82 Blood Pressure Location Lt brachial Position Sitting Pulse 83 Pulse Source Pulse Oximeter Temp Source Skin Pulse Oximetry (%) 96 Oxygen Delivery Method Room Air Intake Visit Reasons: 3 month f/u Intake Note: Patient is here to follow up on 3 months Analytical Lab Technician Required: No Allergies dronedarone [From Multaq] Allergy (Mild, Verified 03/15/23 15:51) Rash Medication List - Last Reconciled 03/15/23 by Kiara Ma, AUTOMATED LOGISTICS SPECIALIST apixaban (Eliquis) 5 mg PO BID azithromycin (Zithromax Z-Jacobo) For 250 mg dose pack: take 500 mg today (day 1), then 250 mg for 4 days (days 2-5) PO benzonatate 200 mg PO BID PRN benzonatate 100 mg PO TID PRN cetirizine (Zyrtec) 10 mg PO DAILY PRN CPAP (CPAP Machine/Device) As directed dextromethorphan-guaifenesin 10-200 mg (Coricidin HBP Chest Congestion-Cough) 1 tab-cap PO Q8H PRN doxycycline monohydrate 100 mg PO BID 7 days fluticasone propion-salmeterol 500-50 mcg/dose (Advair Diskus) 1 inh inhalation BID ipratropium bromide 1 spray intranasal DAILY metoprolol tartrate 50 mg PO BID montelukast (Singulair) 10 mg PO DAILY 90 days omeprazole 20 mg PO DAILY 90 days simvastatin 40 mg PO BEDTIME triamcinolone acetonide 0.1% 1 appl topical BID Tobacco use date assessed: 03/15/23 Fall risk assessment: No Falls in past year Last assessed Fall Risk: 03/15/23 Dental Screening Dental Screen Date: 03/15/23 Did you have a dental visit in the last 12 months?: Yes Did you have a dental problem in the last 6 months where you did not have access to dental care?: No Was dental information given to patient?: Patient has dentist HPI 3 month f/u HPI Details Patient is a 73-year-old male presents today for a routine follow-up. Patient of Dr. Jackson. Medical history significant for allergic rhinitis, ANALY-on CPAP-reports when he was in the hospital 12/2022-stops breathing with CPAP even at home -was recommended to have repeat sleep study when in hospital-reports last sleep study about 7 years ago- reports does not snore anymore-will place referral for repeat sleep study, COPD, AFib-followed by [facility], asthma, bladder cancer-followed by Urology Dr. Alicea - in chemotherapy. Denies shortness of breath or chest pain. Will be going to [place] 04/2023 and coming back 11/2023. [facility] Medical History Asthma Bladder cancer Bladder cancer COPD (chronic obstructive pulmonary disease) COPD exacerbation Cough Erectile dysfunction GERD (gastroesophageal reflux disease) History of COVID-19 History of small bowel obstruction Hypercholesterolemia Jaundice LBBB (left bundle branch block) Obesity (BMI 30-39.9) Obstructive sleep apnea ANALY on CPAP PAF (paroxysmal atrial fibrillation) PAF (paroxysmal atrial fibrillation) Personal history of nicotine dependence Preop exam for internal medicine Preoperative cardiovascular examination PVC (premature ventricular contraction) SVT (supraventricular tachycardia) Surgical History History of appendectomy History of arthroplasty of left knee (~2019) History of arthroplasty of right knee (~2020) History of bladder surgery History of cataract surgery (~2020) History of foot surgery (~2021) History of laparotomy (~2020) History of meniscectomy of left knee (~2018) History of meniscectomy of right knee (~2011) Hx of transurethral destruction of bladder lesion Family History Father Lung cancer Mother History of breast cancer Sister Multiple myeloma Other Cough Social History Household Members: Spouse Housing: House Are you a primary child care associate to a significant other at home: No Do you presently have visiting nurse or other home services: No Alcohol intake: former Patient Tobacco Use Status: Former Tobacco user Quit Date: 12 years ago Tobacco use type: Cigarette Years Smoked: (former smoker - onset 14yo, 1ppd x 46yrs, 45pyh, quit 2009) e-Cigarette/Vaping Use: Never Used Second Hand Smoke Exposure: No Advance Directives Date on File: 02/14/21 service: Yes ([employer] - served in [facility]) Current occupational status: retired Current occupational exposures/hazards: Yes (was exposed to Agent [place] while serving in [email or web address]) Cognitive needs: No Hearing needs: Yes (hearing aide) Vision needs: No Questionnaire Thrive Questionnaire Date Thrive assessed: 08/10/22 AUDIT C Alcohol Use Questionnaire (AUDIT-C) 1. How often do you have a drink containing alcohol?: Never Total Score: 0 Score Reviewed/Action Taken: No PARIS-7 AMB Questionnaire PARIS-7 Date PARIS - 7 assessed: 11/28/22 Source: Developed by Drs. Darrian Watson, Megan Richardson, Alexandru Griffiths and colleagues, with an educational aydin from [employer]. Review of Systems Const Denies body aches, Denies chills, Denies fever(s) and Denies headache(s) Eyes Denies change in vision ENT Denies dizziness, Denies otalgia, Denies headache(s), Denies nasal discharge, Denies sinus pain and Denies sore throat Card Denies chest pain, Denies edema, Denies lightheadedness and Denies dyspnea Resp Details: ANALY-stops breathing night-on CPAP Reports as per HPI, Denies cough, Denies dyspnea and Denies wheezing GI Denies abdominal pain Denies dysuria Musc Denies myalgias Skin/Breast Denies rash Neuro Denies dizziness and Denies headache(s) Aller/Immun Denies wheezing Physical exam (Primary Care) Vital Signs: Last Vital Signs Pulse 83 03/15/23 15:39 BP 112/82 03/15/23 15:39 Pulse Ox 96 03/15/23 15:39 Oxygen Delivery Method Room Air 03/15/23 15:39 BMI result Body Mass Index 34.1 Tobacco/Smoking Status: Tobacco use Status Tobacco use date assessed 03/15/23 03/15/23 15:40 Patient Tobacco Use Status Former Tobacco user 03/15/23 15:40 Tobacco use type Cigarette 03/15/23 15:40 e-Cigarette/Vaping Use Never Used 03/15/23 15:40 Thrive Assessment: Date of Thrive Assessment Date Thrive assessed 08/10/22 03/15/23 15:40 Const General: cooperative and no acute distress Orientation/consciousness: patient oriented x3 HENMT Head: Yes normocephalic and Yes atraumatic Mouth: oropharynx normal and moist mucous membranes Throat: Yes posterior oropharynx normal Eyes General: appearance normal, both eyes and all related structures Pupils: Equal, round and reactive pupils present Neck Neck: Yes normal visual inspection, Yes full ROM and Yes no lymphadenopathy Thyroid: Thyroid normal Resp Effort & Inspection: normal respiratory effort and able to speak in complete sentences Auscultation: clear to auscultation bilaterally, no crackles, no rales, no rhonchi and no wheezes Cardio Rate: regular rate Rhythm: regular rhythm Heart sounds: S1 normal heart sound present, S2 normal heart sound present and no murmurs GI Auscultation: normal bowel sounds Skin General skin exam: no rashes or lesions noted Neuro General: patient oriented x3 Cranial nerves: Yes Equal, round and reactive pupils present Gait exam (Neuro): Normal gait present Extrem General: Yes full ROM and No edema Assessment and Plan Assessment & Plan (1) Bladder cancer: Comment: TURBT 06/28 pTaLG, 06/29 Dr Mckeon pTaLG, 05/2016 BCG, 06/04 [place] pT1LG, 07/05 [place] pTaLG BCG induction Fulguration and mitomycin-C May 2022 TURBT May 2022 CIS Code(s): C67.9 - Malignant neoplasm of bladder, unspecified Plan: Continue to follow-up with urology Dr. Alicea (2) Atrial fibrillation: Comment: Ablation done 2021 with pulmonary vein isolation Code(s): I48.91 - Unspecified atrial fibrillation Plan: Continue follow-up with [facility] On Eliquis and metoprolol (3) COPD (chronic obstructive pulmonary disease): Code(s): J44.9 - Chronic obstructive pulmonary disease, unspecified Plan: Continue current treatment as prescribed Was seen by [facility] (4) ANALY on CPAP: Comment: Patient uses CPAP regularly every night Code(s): G47.33 - Obstructive sleep apnea (adult) (pediatric); Z99.89 - Dependence on other enabling machines and devices Plan: See HPI for details, will repeat sleep study (5) Hypercholesterolemia: Code(s): E78.00 - Pure hypercholesterolemia, unspecified Plan: LDL 81 02/2023 Continue simvastatin 40 mg at bedtime Orders: Orders RT home sleep study Today G47.33 - Obstructive sleep apnea (adult) (pediatric), Z99.89 - Dependence on other enabling machines and devices Coding Level of Care Code Est Pt Level 4 (42449) Diagnoses Bladder cancer C67.9 Atrial fibrillation I48.91 COPD (chronic obstructive pulmonary disease) J44.9 ANALY on CPAP G47.33; Z99.89 Hypercholesterolemia E78.00
== END 2023-03-15 16:06 | disposition home or self-care (01) ==
PROVIDERS: PCP Internal Medicine; Visit Provider Nurse Practitioner Family
DX: J44.9 Chronic obstructive pulmonary disease, unspecified (principal); I48.91 Unspecified atrial fibrillation; C67.9 Malignant neoplasm of bladder, unspecified; G47.33 Obstructive sleep apnea (adult) (pediatric); Z99.89 Dependence on other enabling machines and devices; E78.00 Pure hypercholesterolemia, unspecified
CPT/HCPCS: 99214

== ENCOUNTER → 2023-04-30 13:39 | Outpatient (REF) | payer MEDICARE, SELFPAY | LOC: HO.SL 13:39 | PROVIDERS: PCP Internal Medicine; Visit Provider Nurse Practitioner Family | DX: G47.33 Obstructive sleep apnea (adult) (pediatric) (principal); Z99.89 Dependence on other enabling machines and devices | CPT/HCPCS: 95806 ==

== ENCOUNTER → 2023-04-30 13:53 | Outpatient (BNV) | payer MEDICARE, SELFPAY | PROVIDERS: PCP Internal Medicine; Visit Provider Internal Medicine | DX: G47.33 Obstructive sleep apnea (adult) (pediatric) (principal) | CPT/HCPCS: 95806 ==

== ENCOUNTER 2023-05-01 13:53 | Outpatient (AMB) | payer MEDICARE, SELFPAY ==
[2023-05-01 14:28] VITALS: BP 112/72; PULSE 66; BMI 34.7
--- NOTE | 2023-05-01 14:28 | A.OFFVIS_ITS ---
Intake Vital Signs 05/01/23 14:28 Height 5 ft 6 in Weight 215 lb 2.738 oz BMI 34.7 BP 112/72 Blood Pressure Location Lt brachial Position Sitting Pulse 66 Intake Visit Reasons: folow up Intake Note: follow up w/ EKG Lap Hand Tool Required: No Accompanied by: Spouse Allergies [email or web address] [From Multaq] Allergy (Mild, Verified 05/01/23 14:31) Rash Medication List - Last Reconciled 05/01/23 by Tacos Shearer MD apixaban (Eliquis) 5 mg PO BID benzonatate 100 mg PO TID PRN cetirizine (Zyrtec) 10 mg PO DAILY PRN CPAP (CPAP Machine/Device) As directed erythromycin ophthalmic (eye) fluticasone propion-salmeterol 500-50 mcg/dose (Advair Diskus) 1 inh inhalation BID ipratropium bromide 1 spray intranasal DAILY metoprolol tartrate 50 mg PO BID montelukast (Singulair) 10 mg PO DAILY 90 days omeprazole 20 mg PO DAILY 90 days simvastatin 40 mg PO BEDTIME HPI HPI Comments History of Present Illness Details Volodymyr returns for follow-up regarding cardiac arrhythmias. He has a history of PVCs, SVT as well as atrial fibrillation. Due to recurrent atrial fibrillation rapid rate, he underwent ablation of the same. Remains on beta- blockers only. Also on Eliquis. This summer 2022, he states they went on vacation to [place]. After they return, he had a severe episode of rapid heartbeat and went to [facility] emergency room. Apparently was diagnosed SVT. Then it seems that he was put on amiodarone for short time. No longer taking it. Still feels rare fluttering but most of the times he is okay. No other complaints like angina. Plans to go to [place] again for the next 6 months or so. [facility] Medical History Asthma Bladder cancer Bladder cancer COPD (chronic obstructive pulmonary disease) COPD exacerbation Cough Erectile dysfunction GERD (gastroesophageal reflux disease) History of COVID-19 History of small bowel obstruction Hypercholesterolemia Jaundice LBBB (left bundle branch block) Obesity (BMI 30-39.9) Obstructive sleep apnea ANALY on CPAP PAF (paroxysmal atrial fibrillation) PAF (paroxysmal atrial fibrillation) Personal history of nicotine dependence Preop exam for internal medicine Preoperative cardiovascular examination PVC (premature ventricular contraction) SVT (supraventricular tachycardia) Surgical History History of foot surgery (~2021) History of laparotomy (~2020) History of arthroplasty of right knee (~2020) History of meniscectomy of right knee (~2011) History of cataract surgery (~2020) History of appendectomy History of arthroplasty of left knee (~2019) History of meniscectomy of left knee (~2018) History of bladder surgery Hx of transurethral destruction of bladder lesion Family History Father Lung cancer Mother History of breast cancer Sister Multiple myeloma Other Cough Social History Household Members: Spouse Housing: House Are you a primary manager home healthcare to a significant other at home: No Do you presently have visiting nurse or other home services: No Alcohol intake: former Patient Tobacco Use Status: Former Tobacco user Quit Date: 12 years ago Tobacco use type: Cigarette Years Smoked: (former smoker - onset 14yo, 1ppd x 46yrs, 45pyh, quit 2009) e-Cigarette/Vaping Use: Never Used Second Hand Smoke Exposure: No Advance Directives Date on File: 02/14/21 service: Yes ( [employer] - served in [facility]) Current occupational status: retired Current occupational exposures/hazards: Yes (was exposed to [place] while serving in [employer]) Cognitive needs: No Hearing needs: Yes (hearing aide) Vision needs: No Review of Systems Const Denies weakness ENT Denies dizziness Card Denies chest pain, Denies chest pain with activity, Denies syncope, Denies rapid heart rate, Denies pedal edema, Denies edema, Denies leg edema, Denies lightheadedness, Denies palpitations, Denies dyspnea, Denies dyspnea on exertion and Denies orthopnea Resp Denies cough, Denies dyspnea and Denies dyspnea on exertion GI Denies hematochezia and Denies change in stool character Musc Denies abnormal gait, Denies muscle cramps, Denies muscle weakness, Denies numbness, Denies radiating pain into limb and Denies tingling Neuro Denies abnormal gait, Denies dizziness, Denies syncope, Denies numbness, Denies tingling and Denies weakness Endo Denies palpitations Physical Exam Vital Signs: Last Vital Signs Pulse 66 05/01/23 14:28 BP 112/72 05/01/23 14:28 BMI result Body Mass Index 34.7 Const General: comfortable and no acute distress Orientation/consciousness: patient oriented x3 HEENT Other: Unremarkable Head: Yes normal to inspection Neck Neck: Yes normal visual inspection Chest Chest palpation & inspection: normal inspection of the chest Resp Auscultation: clear to auscultation bilaterally Cardio Palpation: normal PMI Heart sounds: S1 normal heart sound present, S2 normal heart sound present, no gallops, no murmurs and no rubs GI Palpation (GI): Soft to palpation Back/Spine/Pelvis Other: unremarkable Skin General skin exam: no rashes or lesions noted Neuro General: patient oriented x3 Extrem General: Yes normal to inspection Psych Mental Status: mental status grossly normal Office Procedures EKG Details: EKG with sinus rhythm, 66/Min, left bundle-branch block pattern. [id number], Complete Assessment & Plan Assessment & Plan (1) PAF (paroxysmal atrial fibrillation): Code(s): I48.0 - Paroxysmal atrial fibrillation (2) SVT (supraventricular tachycardia): Code(s): I47.1 - Supraventricular tachycardia (3) PVC (premature ventricular contraction): Code(s): I49.3 - Ventricular premature depolarization (4) LBBB (left bundle branch block): Code(s): I44.7 - Left bundle-branch block, unspecified (5) Obstructive sleep apnea: Comment: Patient is known to have sleep apnea since 2017, has been doing very well with the use of CPAP device. Advised to continue. Code(s): G47.33 - Obstructive sleep apnea (adult) (pediatric) Plan Various arrhythmias over time including PVCs, SVT, atrial fibrillation. Status post MARTIN/cardioversion July 2021. Then tried Multaq but developed rash. Currently status post pulmonary vein isolation for atrial fibrillation. Per most recent documentation from [facility], thought to have had SVT versus atrial f lutter in December 2022 and he was placed on amiodarone but not taking anymore. In January, he has had an echocardiogram at [facility] that I just reviewed-LVEF 35- 45% with regional wall motion variation. No significant valvular issues. Prior to that, he had preserved LVEF. With regard to coronary status, last stress perfusion imaging from 2017 without any significant perfusion abnormalities. Considering cardiomyopathy, likely that he needs another perfusion imaging study. Will also need to repeat echocardiogram to ensure the EF improved or still the same. As he is traveling to [place], reasonable to get this done there too. Because his care is divided between [place] and [place] and also locally between [place] in [facility] there is some confusion with regards to tests and treatment. For obstructive sleep apnea, continue CPAP. Discussed with significant other who came for appointment. Medications: Changed From apixaban (Eliquis) 5 mg PO BID To apixaban (Eliquis) 5 mg PO BID 90 days 180 tabs 3RF From benzonatate 100 mg PO TID PRN 20 caps 0RF cough To benzonatate 100 mg PO TID PRN cough Coding Level of Care Code Est Pt Level 4 (59127) Diagnoses PAF (paroxysmal atrial fibrillation) I48.0 SVT (supraventricular tachycardia) I47.1 PVC (premature ventricular contraction) I49.3 LBBB (left bundle branch block) I44.7 Obstructive sleep apnea G47.33 CPT Codes EKG - CPT: 07068-[id number], Complete ([id number])
== END 2023-05-01 14:57 | disposition home or self-care (01) ==
PROVIDERS: PCP Internal Medicine; Visit Provider Internal Medicine
DX: I48.0 Paroxysmal atrial fibrillation (principal); I47.1 Supraventricular tachycardia; I49.3 Ventricular premature depolarization; I44.7 Left bundle-branch block, unspecified; G47.33 Obstructive sleep apnea (adult) (pediatric)
CPT/HCPCS: 93010; 99214

== ENCOUNTER → 2023-05-01 13:53 | Outpatient (BNVA) | payer MEDICARE, SELFPAY | PROVIDERS: PCP Internal Medicine; Visit Provider Internal Medicine | DX: I44.7 Left bundle-branch block, unspecified (principal); I49.3 Ventricular premature depolarization; I47.10 Supraventricular tachycardia, unspecified; I48.0 Paroxysmal atrial fibrillation; G47.33 Obstructive sleep apnea (adult) (pediatric); Z79.01 Long term (current) use of anticoagulants; Z91.85 Personal history of military service; Z57.4 Occupational exposure to toxic agents in agriculture; Z99.89 Dependence on other enabling machines and devices | CPT/HCPCS: 93005; 99212 ==

== ENCOUNTER → 2023-05-08 08:38 | Outpatient (REF) | payer MEDICARE, SELFPAY ==
--- NOTE | ~2023-05-08 | NM_ITS ---
Myocardial perfusion study Indication: Left bundle branch block to evaluate for myocardial ischemia Technique: The patient was brought in for a Lexiscan perfusion study on 05/08/2023. Patient performed low-level exercise and was injected 0.4 mg of Lexiscan intravenously. Within a minute of injection, 35 mCi of sestamibi was given intravenously. Images were obtained using the SPECT gamma camera interlaced with the gating device. Images were obtained in supine position. Resting perfusion study was performed on 05/09/2023. Patient was administered 35 mCi of sestamibi intravenously at rest. Images were then obtained in supine position. Images obtained with and without CT attenuation. Total DLP 95 mGy-cm. Images were processed with the software and compared side to side in short axis, horizontal long axis and vertical long axis views. Findings: The stress perfusion study showed non attenuated images show mildly reduced uptake in the inferior wall of the LV myocardium as well as the inferoseptal and septal wall of the LV myocardium. Attenuation corrected images show some thinning of the distal septum, apex and the distal anterior wall of the LV myocardium.. The gated study shows normal LV systolic function with calculated LVEF of 67%. LV cavity is normal in size. The gated study shows normal systolic wall thickening and contraction of segments. Resting study shows no significant change in perfusion pattern compared to stress perfusion study. Gating at rest reveals normal systolic wall motion with ejection fraction at 64%. The findings are consistent with no reversible defect suggestive of ischemia. Distal septal and apical defect most likely consistent with left bundle branch block.. NM/NM cardiolite stress test Impression: 1. Myocardial perfusion imaging study shows likely normal myocardial perfusion 2. Gated LVEF is 67% 3. Transient ischemic dilatation not present EKG is nondiagnostic for ischemia
--- NOTE | 2023-05-08 08:43 | CA_ITS ---
Acquisition Time: 2023-05-08 09:47:51 Total Exercise Time: 00:02:00 Test Indications: LBBB ,AFIB/SVT Medications: ELIQUIS BENZONATATE ADVAIR METOPROLOL SINGULAIR OMEPRAZOLE SIMVASTATIN Protocol: LEXISCAN Max HR: 087 BPM 60% of Pred: 145 BPM Max BP: 124/068 mmHG Max Work Load: 1.0 METS Pharmacoological stress test with Lexiscan injection while sitting, with mild SOB, without chest discomfort, with isolated PVCs, with normotensive response to injection, with nondiagnoisitic EKGs. Aminophylline 75mg IVP given to reverse Lexiscan. Nuclear imaging pending. Test reviewed with Dr. Valencia Referred By: Quynh Chopra Overread By: Quynh Chopra
--- NOTE | 2023-05-08 08:43 | CA_ITS ---
Transthoracic Echocardiogram Patient (Last, First, Middle): Volodymyr Richards E Gender: Male Date of : 1950 Age: 73 Procedure Date: 05/08/2023 Procedure Type: Transthoracic Echocardiogram Location: OP Height: 167.64 cm Weight: 95.26 kg BSA: 2.04 m2 Heart Rate: bpm BP: 110 / 72 mmHg Dance Hall Host/Hostess: TO Referring MD: Quynh Chopra SCREED PERSON Auto Cleaner: Justin Valencia MD Symptoms: I44.7 - Left bundle-branch block, unspecified Study Quality: Fair ECG Rhythm: Sinus Conclusions: - 1. Normal LV ejection fraction 55-60% with impaired relaxation filling pattern 2. Mildly dilated left atrium 3. Mild mitral regurgitation 4. Mildly dilated ascending aorta at 3.7 cm 5. Normal RV systolic pressure 6. No gross pericardial effusion Findings Left Ventricle Normal left ventricular size, thickness, and systolic function. The visually estimated ejection fraction is between 55-60%. Spectral Doppler is indicative of an impaired relaxation filling pattern. E/E prime ratio is between 8 and 15 consistent with indeterminate filling pressures. Right Ventricle Normal right ventricular cavity size and systolic function. Atria The left atrium is mildly dilated. There is no evidence of interatrial shunt. The right atrium is normal in size. Aortic Valve Normal aortic valve structure and function. There is no aortic valve stenosis. There is no aortic valve regurgitation. Mitral Valve There is mild anterior and posterior mitral leaflet thickening. There is mild mitral valve regurgitation. There is no mitral valve stenosis. Pulmonic Valve The pulmonic valve is likely normal. Tricuspid Valve Normal tricuspid valve structure. There is trace tricuspid valve regurgitation. The right ventricular systolic pressure is normal. The right ventricular systolic pressure is 26 mmHg. Normal right atrial pressure. There is no evidence of pulmonary hypertension. Great Vessels The pulmonary artery was not well visualized. There is mild dilatation of the ascending aorta measuring 3.70 cm. Venous The inferior vena cava is normal in size and collapses greater than 50% with inspiration. Pericardium/Pleural There is no evidence of pericardial effusion. Measurements 2D Linear Measurements IVSd: 1.50 0.6-0.9/0.6-1.0 cm LVIDd: 4.90 3.9-5.3/4.2-5.9 cm LVIDd Index: 2.40 2.4-3.2/2.2-3.1 cm/m2 LVIDs: 3.00 2.0-3.6 cm LVPWd: 0.90 0.7-1.1 cm LA Diam: 3.40 2.7-3.8/3.0-4.0 cm LAIDs Index: 1.67 1.5-2.3 cm/m2 LV Mass: 282.22 67-162/88-224 g LV Mass Index: 138.34 43-95/49-115 g/m2 LVOT Diam: 2.20 3.0+(-)1.3 cm 2D Systolic Function EF 4C: 55.70 >55% EF 2C: 57.70 >55% EF BiP: 56.10 >55% Mitral Valve MV Pk E: 0.74 MV PK A: 0.66 MV Decel Time: 215.00 E/A: 1.10 E'Lateral: 5.00 E'Medial: 5.66 E/E' Med: 13.10 E/E' Lat: 14.80 PHT: 67.00 MVA PHT: 3.28 Decel [place]: 3.14 Aortic Valve AoV Pk Darell: 1.21 AoV Mn Darell: 0.82 AoV VTI: 0.25 AoV Pk Grad: 6.00 Aov Mn Grad: 3.00 SMITH Cont.VTI: 2.66 LVOT LVOT Pk Darell: 0.82 LVOT Mn Darell: 0.59 LVOT VTI: 0.17 LVOT Pk Grad: 3.00 LVOT Mn Grad: 2.00 LVOT Diam: 2.20 LVOT Area: 3.80 Diastolic Function MV Pk E: 0.74 MV Pk A: 0.66 E/A: 1.10 E'Medial: 5.66 E/E' Med: 13.10 E' Laterial: 5.00 E/E' Lat: 14.80 Right Ventricle TAPSE (mm): 22.30 TVS' Darell: 10.20 Tricuspid Valve TR Pk Darell: 2.40 TR Pk Grad: 23.00 RA Press: 3.00 RVSP: 26.00 Great Vessels Aorta Sinus of Valsalva: 3.80 2.0-3.5 cm Ao Asc: 3.70 2.1-3.4 cm Updated in Other Vendor System with Status of Final Justin Valencia MD electronically signed on 05/09/2023 12:20:50 PM with status of Final
== END ==
LOC: HO.CARD 08:38
PROVIDERS: PCP Internal Medicine; Visit Provider Nurse Practitioner
DX: I49.3 Ventricular premature depolarization (principal); I48.91 Unspecified atrial fibrillation; I44.7 Left bundle-branch block, unspecified; G47.33 Obstructive sleep apnea (adult) (pediatric); Z99.89 Dependence on other enabling machines and devices
CPT/HCPCS: 78452; 93017; 93306; A9500; J0280; J2785

== ENCOUNTER → 2023-05-08 08:43 | Outpatient (BNV) | payer MEDICARE, SELFPAY | PROVIDERS: PCP Internal Medicine; Visit Provider Nurse Practitioner | DX: I48.91 Unspecified atrial fibrillation (principal); I44.7 Left bundle-branch block, unspecified | CPT/HCPCS: 78452; 93016; 93018; 93306 ==

== ENCOUNTER 2023-11-28 12:37 | Outpatient (AMB) | payer MEDICARE, SELFPAY ==
--- NOTE | 2023-11-28 13:08 | A.OFFVIS_ITS ---
Intake Visit Reasons: Cystoscopy Intake Note: Patient presents today for a CYSTOSCOPY Procedure: Meds: None Allergies to Antibiotic: No Known Allergies Blood Thinner: Eliquis Urinalysis test clear for Cysto? YES Disposable Uro-G HD Cystoscope Cannula: Lot: [id number] Exp: 07/17/2026 Lining Vamper Required: No Accompanied by: Significant Other Allergies dronedarone [From Multaq] Allergy (Mild, Verified 11/28/23 13:08) Rash Medication List - Last Reconciled 11/28/23 by Darrin Alicea MD apixaban (Eliquis) 5 mg PO BID 90 days benzonatate 100 mg PO TID PRN cetirizine (Zyrtec) 10 mg PO DAILY PRN CPAP (CPAP Machine/Device) As directed erythromycin ophthalmic (eye) fluticasone propion-salmeterol 500-50 mcg/dose (Advair Diskus) 1 inh inhalation BID ipratropium bromide 1 spray intranasal DAILY metoprolol tartrate 50 mg PO BID montelukast (Singulair) 10 mg PO DAILY 90 days omeprazole 20 mg PO DAILY 90 days simvastatin 40 mg PO BEDTIME HPI Comments Details: Volodymyr is a very pleasant male. He is a patient of Dr. Jackson. He is seen for the following urologic conditions - bladder cancer - urinary tract infection Repeat cystoscopy with bladder dome patch of mucosal change Recently down in [place] Dome patch had been fulgurated Underwent 6 weeks of gemcitabine with docetaxal Needs three-week follow-up gemcitabine and docetaxel Three-month follow-up cysto office Bladder Cancer low-grade superficial recurrent T1 07/05 CIS on biopsy [place] [facility] - Dr Hugo - [facility] Initial diagnosis superficial bladder cancer, recurrent Interventions - TURBT [place], [place] 06/2021 - 06/06 TURBT CIS with [facility] treatment - 03/07 fulguration bladder dome with 3 week [facility] Cytarabine Adjuvant therapy - BCG induction x2, completed induction Aug 2021 - Gemcitabine - 03/07 2 week [facility] with Cytarabine boost Check cystoscopy - 01/03 BCG changes with mucosal erythema patches - 11/04 no evidence of recurrent disease - 04/06 posterior wall patch - TURBT CIS - 10/05 NAD, 01/05 bladder dome mucosal changes Cytology - 11/04 rare atypical, 04/06 suspicious, 10/05 rare atypical, 06/07 atypical Risk factors - 40 year pack per day smoking history - Agent [place] exposure Therapeutic plan - 3 week boost treatment Urinary tract infection 08/07 E coli ESBL Trouble with recurrent urinary tract infections Culture shows ESBL E coli resistant to most oral antibiotics [facility] Medical History (Updated 05/07/23 @ 12:35 by Quynh Chopra NP) SVT (supraventricular tachycardia) Asthma Bladder cancer COPD (chronic obstructive pulmonary disease) COPD exacerbation Jaundice ANALY on CPAP Cough PAF (paroxysmal atrial fibrillation) Preoperative cardiovascular examination Preop exam for internal medicine History of COVID-19 History of small bowel obstruction Personal history of nicotine dependence PAF (paroxysmal atrial fibrillation) LBBB (left bundle branch block) PVC (premature ventricular contraction) GERD (gastroesophageal reflux disease) Obstructive sleep apnea Erectile dysfunction Obesity (BMI 30-39.9) Bladder cancer Hypercholesterolemia Surgical History History of foot surgery (~2021) History of laparotomy (~2020) History of arthroplasty of right knee (~2020) History of meniscectomy of right knee (~2011) History of cataract surgery (~2020) History of appendectomy History of arthroplasty of left knee (~2019) History of meniscectomy of left knee (~2018) History of bladder surgery Hx of transurethral destruction of bladder lesion Family History Father Lung cancer Mother History of breast cancer Sister Multiple myeloma Other Cough Social History Household Members: Spouse Housing: House Are you a primary family day carer to a significant other at home: No Do you presently have visiting nurse or other home services: No Alcohol intake: former Patient Tobacco Use Status: Former Tobacco user Quit Date: 12 years ago Tobacco use type: Cigarette Years Smoked: (former smoker - onset 14yo, 1ppd x 46yrs, 45pyh, quit 2009) e-Cigarette/Vaping Use: Never Used Second Hand Smoke Exposure: No Advance Directives Date on File: 02/14/21 service: Yes ( [employer] - served in [facility]) Current occupational status: retired Current occupational exposures/hazards: Yes (was exposed to Agent [place] while serving in [employer]) Cognitive needs: No Hearing needs: Yes (hearing aide) Vision needs: No Review of Systems Const Denies chills and Denies fever(s) Card Reports no additional complaints and Denies syncope Resp Denies cough GI Denies abdominal pain and Denies heartburn Reports as per HPI and Denies change in libido Neuro Denies syncope Psych Denies change in libido Endo Denies change in libido Physical Exam Const General: cooperative, healthy appearing, comfortable and no acute distress Orientation/consciousness: patient oriented x3 HEENT Face and sinus: Yes normal facial exam Mouth: moist mucous membranes Neck Neck: Yes normal visual inspection, Yes full ROM and Yes trachea midline Chest Chest palpation & inspection: normal inspection of the chest Resp Effort & Inspection: normal respiratory effort, able to speak in complete sentences and no respiratory distress GI Inspection: Yes normal to inspection Back/Spine/Pelvis Cervical Spine: normal cervical lordosis Thoracic/Lumbar Spine: thoracic and lumbar spine normal to inspection Skin General skin exam: no rashes or lesions noted Neuro General: patient oriented x3, gait normal, tone normal and moves all extremities Extrem General: Yes normal to inspection and Yes capillary refill normal Office Procedures Cystoscopy Consent Discussed risk and benefit or proposed procedure with the patient. Information consent for procedure given to the patient. Discussed technical aspects, risks, benefits and alternatives in full. Addressed all of the patient's questions and concerns regarding the procedure. The patient demonstrated knowledge and understanding. They wish to proceed with this procedure. Preparation The patient was prepped in the usual manner. A lawn specialist was present and in the room. Genitalia was prepped with betadine solution in a sterile manner. Lidocaine Jelly 2% was placed into the urethra and 16Fr flexible Olympus cystoscope was inserted into the meatus after adequate lubrication. Procedure Cystoscopy performed using a disposable Urovue digital 16 Spanish cystoscope. Meatus circumcised Urethra anterior and posterior urethra normal Prostatic Urethra unremarkable Bladder examination with retroflexion of cystoscope Bladder Orifices normal shape and position Bladder Capacity normal Trabeculations - Cellule Formation - Diverticulum Formation - Mucosal Erythema right dome healing area Bladder Tumor scarring 12594-[id number] DISPOSABLE SCOPE URO-G FLEXIBLE SCOPE Procedure code (CPT) selection complete Office Meds lidocaine HCl 2 % mucosal jelly in applicator Performing Provider: Darrin Alicea MD [facility] Administered by: Ann Seth RN on 11/28/23 13:11 Dose Route Admin Location Dispensed Lot Number Expiration Date [place] [employer]r 10 mL intra-urethral 10 mL nitrofurantoin monohydrate/macrocrystals 100 mg capsule Performing Provider: Darrin Alicea MD Performing Location: [facility] Administered by: Ann Seth RN on 11/28/23 13:11 Dose Route Admin Location Dispensed Lot Number Expiration Date NDC [employer] Treasurer 100 mg PO 1 cap naproxen 500 mg tablet Performing Provider: Darrin Alicea MD Performing Location: [facility] Administered by: Ann Seth RN on 11/28/23 13:11 Dose Route Admin Location Dispensed Lot Number Expiration Date [place] [employer]r 500 mg PO 1 tab Results AMB Urinalysis, Automated UA Leukoctes 0 Candice/uL Last Edit by Elijah Monique [place] on 11/28/23 13:11 UA Nitrite Negative Last Edit by Elijah Monique [facility] on 11/28/23 13:11 UA Urobilinogen 0.2 mg/dL Last Edit by Elijah Monique [place] on 11/28/23 13:1 1 UA Protein 0 mg/dL Last Edit by Elijah Monique [facility] on 11/28/23 13:11 UA pH 6.5 Last Edit by Elijah Monique [facility] on 11/28/23 13:11 UA Blood 0 Clive/uL Last Edit by Elijah Monique [facility] on 11/28/23 13:11 UA Specific [place] 1.010 Last Edit by Elijah Monique [place] on 11/28/23 13: 11 UA Ketone Negative Last Edit by Elijah Monique [facility] on 11/28/23 13:11 UA Bilirubin 0 mg/dL Last Edit by Elijah Monique [facility] on 11/28/23 13:11 UA Glucose 0 mg/dL Last Edit by Elijah Monique [facility] on 11/28/23 13:11 Results Reviewed Results Reviewed: Laboratory Last Values Urine pH (Auto) 6.5 11/28/23 13:02 Specific [place] (Auto) 1.010 11/28/23 13:02 Urine Protein (Auto) 0 mg/dL 11/28/23 13:02 Glucose (UA)(Auto) 0 mg/dL 11/28/23 13:02 Urine Ketones (Auto) Negative 11/28/23 13:02 Urine Blood (Auto) 0 Clive/uL 11/28/23 13:02 Urine Nitrite (Auto) Negative 11/28/23 13:02 Urine Bilirubin (Auto) 0 mg/dL 11/28/23 13:02 Urine Urobilinogen (Auto) 0.2 mg/dL 11/28/23 13:02 Leukocyte Esterase (Auto) 0 Candice/uL 11/28/23 13:02 Assessment & Plan Assessment & Plan (1) Bladder cancer: Comment: TURBT 06/28 p[facility]LG, 06/29 Dr Mike GonzalesG, 05/2016 BCG, 06/04 [place] pT1LG, 07/05 [place] pTaLG BCG induction Fulguration and mitomycin-C May 2022 TURBT May 2022 CIS Code(s): C67.9 - Malignant neoplasm of bladder, unspecified Category: Medical Plan Three weeks immunotherapy gemcitabine docetaxel bladder installation Orders: Orders AMB Cystoscopy Today C67.9 - Malignant neoplasm of bladder, unspecified, N39.0 - Urinary tract infection, site not specified Blood Urea Nitrogen Today C67.9 - Malignant neoplasm of bladder, unspecified, R39.15 - Urgency of urination Creatinine Today C67.9 - Malignant neoplasm of bladder, unspecified, R39.15 - Urgency of urination AMB Urinalysis Automated Today Z13.9 - Encounter for screening, unspecified CT urogram Today C67.9 - Malignant neoplasm of bladder, unspecified, R31.0 - Gross hematuria Patient Instructions: Imaging studies, laboratory and physical exam results were discussed and reviewed in detail. No major barriers to patient understanding were identified. An opportunity to ask questions regarding the treatment plan was provided. All questions were answered. The patient expressed understanding and agreement with the above treatment plan. The patient is aware they should contact our office by phone for worsening of their current condition or the appearance of new urologic symptoms. Compliance is encouraged with any medications and followup testing that is ordered. It is a privilege to participate in the urologic care of your patient. If you have any questions or concerns regarding treatment for the above conditions, or other urologic issues, please do not hesitate to contact me. The office telephone contact is [phone]. This note is constructed using voice recognition software. While every effort has been made to ensure accuracy residential energy auditor errors may have been included. Yours sincerely, Dr Darrin Alicea MD, [facility] - Urology Providers of Expert, Compassionate Care for the Genitourinary System Coding Level of Care Code Est Pt Level 4 (72545) Diagnoses Bladder cancer C67.9 CPT Codes Cystoscopy - CPT: 24008-[id number] ([id number])
== END 2023-11-28 14:01 | disposition home or self-care (01) ==
PROVIDERS: PCP Internal Medicine; Visit Provider Urology
DX: C67.9 Malignant neoplasm of bladder, unspecified (principal); N39.0 Urinary tract infection, site not specified; Z13.9 Encounter for screening, unspecified
CPT/HCPCS: 52000

== ENCOUNTER → 2023-11-28 12:37 | Outpatient (BNVA) | payer MEDICARE, SELFPAY | PROVIDERS: PCP Internal Medicine; Visit Provider Urology | DX: C67.9 Malignant neoplasm of bladder, unspecified (principal) | CPT/HCPCS: 52000; 81003 ==

== ENCOUNTER 2023-12-01 09:02 | Outpatient (AMB) | payer MEDICARE, SELFPAY ==
[2023-12-01 09:03] VITALS: BP 102/68; PULSE 74; TEMP 36.6; O2SAT 96; BMI 33.1
--- NOTE | 2023-12-01 09:03 | MHC.OFFWIV ---
Intake Vital Signs 12/01/23 09:03 Height 5 ft 6 in Weight 205 lb BMI 33.1 BP 102/68 Blood Pressure Location Lt brachial Position Sitting Pulse 74 Pulse Source Pulse Oximeter Temp 97.8 F Temp Source Oral Pulse Oximetry (%) 96 Oxygen Delivery Method Room Air Intake Visit Reasons: EP chest congestion cough Intake Note: Patient complains of chest congestion and cough Patient Tobacco Use Status: Former Tobacco user Quit Date: 12 years ago Allergies dronedarone [From Multaq] Allergy (Mild, Verified 12/01/23 09:03) Rash HPI EP chest congestion cough HPI Details Patient is a 73-year-old male with history of COPD and obstructive sleep apnea with CPAP, who comes to the walk-in clinic with complaint of acute chest congestion and increased cough for the last few days. He denies shortness of breath, nausea vomiting or diarrhea, chest pain, weakness or dizziness, myalgias or malaise, sore throat, fever or chills, or other significant associated symptoms. He reports that he is not needed to use his albuterol, and while he does have a increased cough with productive mucus, he does not get short of breath with the cough. He did not do a home COVID test yet. [facility] Medical History (Updated 12/13/23 @ 15:22 by Deana Casanova PA-C) Bladder cancer Atrial fibrillation SVT (supraventricular tachycardia) LBBB (left bundle branch block) PVC (premature ventricular contraction) Hypercholesterolemia Asthma COPD (chronic obstructive pulmonary disease) Jaundice ANALY on CPAP Cough Personal history of nicotine dependence History of COVID-19 History of small bowel obstruction GERD (gastroesophageal reflux disease) Erectile dysfunction Obesity (BMI 30-39.9) Surgical History History of foot surgery (~2021) History of laparotomy (~2020) History of arthroplasty of right knee (~2020) History of meniscectomy of right knee (~2011) History of cataract surgery (~2020) History of appendectomy History of arthroplasty of left knee (~2019) History of meniscectomy of left knee (~2018) History of bladder surgery Hx of transurethral destruction of bladder lesion Family History Father Lung cancer Mother History of breast cancer Sister Multiple myeloma Other Cough Social History Household Members: Spouse Housing: House Are you a primary nurse behavioral health care to a significant other at home: No Do you presently have visiting nurse or other home services: No Alcohol intake: former Patient Tobacco Use Status: Former Tobacco user Tobacco use type: Cigarette Years Smoked: (former smoker - onset 14yo, 1ppd x 46yrs, 45pyh, quit 2009) e-Cigarette/Vaping Use: Never Used Second Hand Smoke Exposure: No Advance Directives Date on File: 02/14/21 service: Yes ([employer] - served in [facility]) Current occupational status: retired Current occupational exposures/hazards: Yes (was exposed to Agent [place] while serving in [employer]) Cognitive needs: No Hearing needs: Yes (hearing aide) Vision needs: No Review of Systems Const All systems reviewed & are unremarkable except as noted in HPI and below Physical Exam Vital Signs: Last Vital Signs Temp 97.8 F 12/01/23 09:03 Pulse 74 12/01/23 09:03 BP 102/68 12/01/23 09:03 Pulse Ox 96 12/01/23 09:03 Oxygen Delivery Method Room Air 12/01/23 09:03 BMI result Body Mass Index 33.1 Const General: cooperative, healthy appearing, comfortable, no acute distress, alert, awake, Physically active and well groomed; No anxious, diaphoretic, ill appearing, intoxicated appearing, poor hygiene or tired appearing Nutritional Appearance: average body habitus Limitations: no limitations HEENT Head: Yes normal to inspection, Yes normocephalic and Yes atraumatic Ears: hearing grossly normal bilaterally and EAC's normal General nose exam: Normal external nose present, Normal nares present, No nasal polyps present, Normal nasal mucous membranes and turbinates present, Normal septum present and No nasal discharge present Face and sinus: Yes normal facial exam, Yes sinuses nontender and Yes face symmetric Mouth: Normal oral and palatal mucosa present, lip normal and tongue normal Throat: Yes posterior oropharynx normal, No peritonsillar mass, No postnasal drainage, No uvular edema and No cobblestoning Neck Neck: Yes normal visual inspection Chest Chest palpation & inspection: normal palpation of entire chest wall Resp Effort & Inspection: normal respiratory effort, able to speak in complete sentences, no audible wheezes, Actively coughing Quality: productive, no grunting, not labored, no nasal flaring, no pursed lip breathing, no respiratory distress, no retractions, no segmental paradox chest wall movement, no stridor, not tachypneic, no tracheal deviation, no tripod positioning, no use of accessory muscles and symmetric chest movement Auscultation: clear to auscultation bilaterally, no crackles, no rales, rhonchi, no wheezes, lung sounds not diminished and No rub present Cardio Palpation: normal PMI Rate: regular rate Rhythm: regular rhythm Heart sounds: S1 normal heart sound present and S2 normal heart sound present Skin Other: Good color, warm and dry Psych Appearance: grossly normal Mental Status: mental status grossly normal Speech and movement: Normal speech and movement present Affect: normal affect Attitude: cooperative Thought process: Normal thought process present Insight: Good insight present (Psych) Judgement: Good judgement present (Psych) Assessment & Plan Assessment & Plan (1) COPD exacerbation: Code(s): J44.1 - Chronic obstructive pulmonary disease with (acute) exacerbation Plan Patient is a 73-year-old male with history of COPD and obstructive sleep apnea with CPAP, who comes to the walk-in clinic with apparent mild COPD exacerbation. He has not complaining of shortness of breath, and is not using his albuterol, and was not dyspneic on exam, with an oxygen saturation of 96%, which is his baseline. While he only coughed during the exam with the stimulus of deep respirations, he does complain of a persistent cough, and it is productive in nature. I will start him on a macrolide per empiric COPD treatment guidelines, and short steroid taper (his last flare-up resolved with a short course, and he is seeing his PCP in a few days and can have a longer course written at that time if needed). Pending results of flu COVID and RSV testing- he did not do a home rapid test yet, but declines a rapid here. He has albuterol inhaler for use as needed if he becomes short of breath, however has not yet needed it during this illness, and he can continue his maintenance regimen otherwise. We decided to forego a chest x-ray today, however as he is following up with his PCP and 4 days, he could get 1 at that time if symptoms are still persisting. If symptoms worsen or become worrisome, he knows to go to the emergency department. His presented with him today and they are competent for outpatient follow-up. Orders: Orders SARS-CoV2/FLU/RSV 12/01/23 R05.9 - Cough, unspecified Medications: New azithromycin take 500 mg today (day 1), then 250 mg for 4 days (days 2-5) PO 6 tabs 0RF prednisone 40 mg (2 x 20 mg) PO DAILY 10 tabs 0RF 5 days Coding Level of Care Code Est Pt Level 4 (07444) Diagnoses COPD exacerbation J44.1
== END 2023-12-01 09:44 | disposition home or self-care (01) ==
PROVIDERS: PCP Internal Medicine; Visit Provider Physician Assistant Medical
DX: J44.1 Chronic obstructive pulmonary disease with (acute) exacerbation (principal)
CPT/HCPCS: 99051; 99214

== ENCOUNTER 2023-12-01 11:06 | Outpatient (REF) | payer MEDICARE, SELFPAY ==
[2023-12-01 11:55] LABS: Influenza A PCR NEGATIVE (Negative); Influenza B PCR NEGATIVE (Negative); Resp Syncy Virus RNA Qual PCR NEGATIVE (Negative); SARS COV2 PCR INHOUSE NEGATIVE (Negative)
== END 2023-12-01 11:07 | disposition home or self-care (01) ==
LOC: HO.LNP 11:06
PROVIDERS: Visit Provider Physician Assistant Medical
DX: R05.9 Cough, unspecified (principal)
CPT/HCPCS: 0241U

== ENCOUNTER 2023-12-04 09:48 | Outpatient (AMB) | payer MEDICARE, SELFPAY ==
--- NOTE | 2023-12-04 10:00 | A.OFFPC_ITS ---
Vital Signs 12/04/23 10:01 12/04/23 10:48 Height 5 ft 6 in Weight 208 lb BMI 33.6 BP 148/82 H 128/80 Blood Pressure Location Lt brachial Lt brachial Position Sitting Sitting Pulse 78 Pulse Source Pulse Oximeter Pulse Oximetry (%) 97 Oxygen Delivery Method Room Air Intake Visit Reasons: SWV - see comments Allergies dronedarone [From Multaq] Allergy (Mild, Verified 12/01/23 09:03) Rash Medication List - Last Reconciled 12/04/23 by Any Jackson MD apixaban (Eliquis) 5 mg PO BID 90 days azithromycin take 500 mg today (day 1), then 250 mg for 4 days (days 2-5) PO cetirizine (Zyrtec) 10 mg PO DAILY PRN CPAP (CPAP Machine/Device) As directed docusate sodium (Colace) 100 mg PO DAILY fluticasone propion-salmeterol 115-21 mcg/actuation (Advair HFA) 2 puffs inhalation BID gemcitabine 1,000 mg IV QWEEK ipratropium bromide 1 spray intranasal DAILY metoprolol tartrate 50 mg PO BID omeprazole 20 mg PO DAILY 90 days polyethylene glycol 3350 (Miralax) 17 grams PO DAILY prednisone 40 mg (2 x 20 mg) PO DAILY 5 days simvastatin 40 mg PO BEDTIME Tobacco use date assessed: 12/04/23 Fall risk assessment: No Falls in past year Last assessed Fall Risk: 12/04/23 Dental Screening Dental Screen Date: 12/04/23 Did you have a dental visit in the last 12 months?: Yes Did you have a dental problem in the last 6 months where you did not have access to dental care?: No Was dental information given to patient?: Patient has dentist HPI SWV - see comments HPI Details 73-year-old obese male with a history of bladder cancer 2019(TURBT [place] 20 , 2021 in mm see fulguration in February 2023 atrial fibrillation hypercholesterolemia COPD obstructive sleep apnea last seen for wellness exam in November 2022. Patient's colonoscopy is up-to-date November 2024 years . Review of the notes [facility] for congestion and cough history of COPD prescribed antibiotic Zithromax and prednisone. Patient also has had cystoscopy done under urology underwent 6 weeks of gemcitabine and Doxetaxel. Patient also has had an echocardiogram April 2023 Normal LV ejection fraction 55-60% with impaired relaxation filling pattern 2. Mildly dilated left atrium 3. Mild mitral regurgitation 4. Mildly dilated ascending aorta at 3.7 cm 5. Normal RV systolic pressure 6. No gross pericardial effusion As well as a stress test nuclear April 2023 Myocardial perfusion imaging study shows likely normal myocardial perfusion 2. Gated LVEF is 67% 3. Transient ischemic dilatation not pre sent Sleep study done April 2023 showing mild AHI of 12 PFSH Medical History (Updated 12/04/23 @ 10:54 by Any Jackson MD) SVT (supraventricular tachycardia) Asthma Bladder cancer COPD (chronic obstructive pulmonary disease) COPD exacerbation Jaundice ANALY on CPAP Cough PAF (paroxysmal atrial fibrillation) Preoperative cardiovascular examination Preop exam for internal medicine History of COVID-19 History of small bowel obstruction Personal history of nicotine dependence PAF (paroxysmal atrial fibrillation) LBBB (left bundle branch block) PVC (premature ventricular contraction) GERD (gastroesophageal reflux disease) Obstructive sleep apnea Erectile dysfunction Obesity (BMI 30-39.9) Bladder cancer Hypercholesterolemia Surgical History History of foot surgery (~2021) History of laparotomy (~2020) History of arthroplasty of right knee (~2020) History of meniscectomy of right knee (~2011) History of cataract surgery (~2020) History of appendectomy History of arthroplasty of left knee (~2019) History of meniscectomy of left knee (~2018) History of bladder surgery Hx of transurethral destruction of bladder lesion Family History Father Lung cancer Mother History of breast cancer Sister Multiple myeloma Other Cough Social History Household Members: Spouse Housing: House Are you a primary home health aide caregiver to a significant other at home: No Do you presently have visiting nurse or other home services: No Alcohol intake: former Patient Tobacco Use Status: Former Tobacco user Quit Date: 12 years ago Tobacco use type: Cigarette Years Smoked: (former smoker - onset 14yo, 1ppd x 46yrs, 45pyh, quit 2009) e-Cigarette/Vaping Use: Never Used Second Hand Smoke Exposure: No Advance Directives Date on File: 02/14/21 service: Yes ([employer] - served in [facility]) Current occupational status: retired Current occupational exposures/hazards: Yes (was exposed to Agent [place] while serving in [employer]) Cognitive needs: No Hearing needs: Yes (hearing aide) Vision needs: No Questionnaire PHQ-9 Over the last 2 weeks, how often have you been bothered by any of the following problems? 1. Little interest or pleasure in doing things: not at all 2. Feeling down, depressed, or hopeless: not at all 3. Trouble falling or staying asleep, or sleeping too much: not at all 4. Feeling tired or having little energy: several days 5. Poor appetite or overeating: not at all 6. Feeling bad about yourself - or that you are a failure or have let yourself or your family down: not at all 7. Trouble concentrating on things, such as reading the newspaper or watching television: not at all 8. Moving or speaking so slowly that other people could have noticed. Or the opposite - being so fidgety or restless that you have been moving around a lot more than usual: not at all 9. Thoughts that you would be better off or of hurting yourself in some way: not at all Total score: 1 Depression Screening Interpretation: Negative Depression Screening Done: Yes 19784 - PHQ-9 Billing: Yes Source: Developed by Drs. Darrian Watson, Megan Richardson, Alexandru Griffiths and colleagues, with an educational aydin from [employer]. Thrive Questionnaire Date Thrive assessed: 12/04/23 I am a: Patient What is your living situation today?: I have a steady place to live Within the past 12 months, did the food you bought not last and you didn't have the money to get more?: Never true Within the past 12 months, did you worry whether your food would run out before you got money to buy more?: Never true Do you have trouble paying for medicines?: No Do you have trouble getting transportation to medical appointments?: No Do you have trouble paying your heating and electricity bill?: No Do you have trouble taking care of your child, family member or friend?: No Do you have trouble with day-to-day activities such as bathing, preparing meals, shopping, managing finances, etc.?: No Are you currently unemployed and looking for a job?: No Are you interested in more education?: No Currently or been in a relationship where the following occur: no concerns reported THRIVE Score: 0 AUDIT C Alcohol Use Questionnaire (AUDIT-C) 1. How often do you have a drink containing alcohol?: Never Total Score: 0 Score Reviewed/Action Taken: No PARIS-7 AMB Questionnaire PARIS-7 Date PARIS - 7 assessed: 12/04/23 Feeling nervous, anxious, or on edge: 0 = Not at all Not being able to stop or control worryin = Not at all Worrying too much about different things: 0 = Not at all Trouble relaxin = Not at all Being so restless that it is hard to sit still: 0 = Not at all Becoming easily annoyed or irritable: 0 = Not at all Feeling afraid as if something awful might happen: 0 = Not at all Total PARIS-7 score (0-4 normal; 5-9 mild; 10-14 moderate; 15-21 severe): 0 Source: Developed by Drs. Darrian Watson, Megan Richardson, Alexandru Griffiths and colleagues, with an educational aydin from [employer]. Review of Systems Const Denies poor appetite and Denies weakness Eyes Denies no additional complaints ENT Reports Normal hearing present, Denies dizziness, Denies nasal congestion, Denies tinnitus and Denies sore throat Card Denies chest pain, Denies syncope, Denies rapid heart rate and Denies dyspnea Resp Denies cough and Denies dyspnea GI Denies change in stool character, Reports constipation, Denies diarrhea, Denies nausea and Denies vomiting Denies dysuria and Denies urinary frequency Neuro Reports Normal hearing present, Denies confusion, Denies dizziness, Denies syncope and Denies weakness Psych Denies confusion Physical exam (Primary Care) Vital Signs: Last Vital Signs Pulse 78 12/04/23 10:01 BP 148/82 H 12/04/23 10:01 Pulse Ox 97 12/04/23 10:01 Oxygen Delivery Method Room Air 12/04/23 10:01 Care Plan Goal for BP management: guaiac neg prostate N BMI result Body Mass Index 33.6 Tobacco/Smoking Status: Tobacco use Status Tobacco use date assessed 12/04/23 12/04/23 10:02 Patient Tobacco Use Status Former Tobacco user 12/04/23 10:02 Tobacco use type Cigarette 12/04/23 10:02 e-Cigarette/Vaping Use Never Used 12/04/23 10:02 PHQ-9: PHQ-9 Score PHQ-9: Total score 1 12/04/23 10:18 Depression Screening Interpretation: Negative Thrive Assessment: Date of Thrive Assessment Date Thrive assessed 12/04/23 12/04/23 10:02 Currently or been in a relationship where the following occur: no concerns reported Const General: No confusion Orientation/consciousness: No confusion HENMT Head: Yes normocephalic Ears: external ears normal and TM's normal bilaterally Face and sinus: Yes normal facial exam Mouth: moist mucous membranes Throat: Yes tonsils normal Eyes Conjunctivae: conjunctivae normal Pupils: Equal, round and reactive pupils present and Pupil accommodation reflex normal Direct Ophthalmoscopy: normal light reflex Neck Neck: No lymphadenopathy Thyroid: Thyroid normal Chest Chest palpation & inspection: normal inspection of the chest Resp Effort & Inspection: normal respiratory effort and no audible wheezes Auscultation: clear to auscultation bilaterally, no crackles, no wheezes and lung sounds not diminished Cardio Rate: regular rate Rhythm: regular rhythm Peripheral pulses: radial pulses present and dorsalis pedis present GI Palpation (GI): no masses Auscultation: normal bowel sounds and normoactive bowel sounds Rectal Exam - Male: Yes deferred Skin General skin exam: no rashes or lesions noted Rashes: no rashes Neuro General: No confusion Cranial nerves: Yes Equal, round and reactive pupils present and Yes Normal hearing present Cognition (Neuro): normal cognition Gait exam (Neuro): Normal gait present Motor exam (neuro): 5/5 motor strength present throughout Deep tendon reflexes (DTR's): Right brachioradialis reflex intensity grade: 2+, Left brachioradialis reflex intensity grade: 2+, Right patellar reflex intensity grade: 2+ and Left patellar reflex intensity grade: 2+ Extrem General: No edema Assessment and Plan Assessment & Plan (1) Encounter for subsequent annual wellness visit (AWV) in Medicare patient: Code(s): Z00.00 - Encounter for general adult medical examination without abnormal findings Plan: Patient is advised to eat healthy, keep well hydrated, keep active and have adequate sleep. (2) ANALY on CPAP: Comment: Patient uses CPAP regularly every night Code(s): G47.33 - Obstructive sleep apnea (adult) (pediatric); Z99.89 - Dependence on other enabling machines and devices Plan: Sleep apnea test came up as mild and was advised conservative measure (3) COPD (chronic obstructive pulmonary disease): Code(s): J44.9 - Chronic obstructive pulmonary disease, unspecified Plan: Presently on Wixela (4) Atrial fibrillation: Comment: Ablation done 2021 with pulmonary vein isolation Code(s): I48.91 - Unspecified atrial fibrillation Plan: Patient on Eliquis. (5) Hypercholesterolemia: Code(s): E78.00 - Pure hypercholesterolemia, unspecified Plan: Avoid fried foods, chicken skin, eggs, butter margarine, pastries and meat. Be it pork or beef they have a lot of cholesterol on simvastatin 40 mg at bedtime (6) Bladder cancer: Comment: TURBT 06/28 [facility], 06/29 Dr Mckeon pTaLG, 05/2016 [facility], 06/04 [place] pT1LG, 07/05 [place] pTaLG BCG induction Fulguration and mitomycin-C May 2022 TURBT May 2022 [facility], bladder surgery 07/2023 Code(s): C67.9 - Malignant neoplasm of bladder, unspecified Plan: Presently active and being followed up by Urology Orders: Orders Free T4 (Free Thyroxine) Today E78.00 - Pure hypercholesterolemia, unspecified Comprehensive Met. Panel 3 Months E78.00 - Pure hypercholesterolemia, unspecified Thyroid Stimulating Hormone 3 Months E78.00 - Pure hypercholesterolemia, unspecified Vitamin B12 and Folate 3 Months E78.00 - Pure hypercholesterolemia, unspecified Complete Blood Count Auto Diff Today E78.00 - Pure hypercholesterolemia, unspecified Comprehensive Met. Panel Today E78.00 - Pure hypercholesterolemia, unspecified Thyroid Stimulating Hormone Today E78.00 - Pure hypercholesterolemia, unspecified Lipid Panel Today E78.00 - Pure hypercholesterolemia, unspecified Vitamin B12 and Folate Today E78.00 - Pure hypercholesterolemia, unspecified Complete Blood Count Auto Diff 3 Months E78.00 - Pure hypercholesterolemia, unspecified Free T4 (Free Thyroxine) 3 Months E78.00 - Pure hypercholesterolemia, unspecified Lipid Panel 3 Months E78.00 - Pure hypercholesterolemia, unspecified B Type Natriuretic Peptide Today E78.00 - Pure hypercholesterolemia, unspecified Referrals Lung Cancer Screening Referral E78.00 - Pure hypercholesterolemia, unspecified Coding Level of Care Code Est Pt Prev Care >65y(77070) Diagnoses Encounter for subsequent annual wellness visit (AWV) in Medicare patient Z00.00 ANALY on CPAP G47.33; Z99.89 COPD (chronic obstructive pulmonary disease) J44.9 Atrial fibrillation I48.91 Hypercholesterolemia E78.00 Bladder cancer C67.9
[2023-12-04 10:01] VITALS: BP 148/82; PULSE 78; O2SAT 97; BMI 33.6
[2023-12-04 10:48] VITALS: BP 128/80
== END 2023-12-04 11:17 | disposition home or self-care (01) ==
PROVIDERS: Visit Provider Internal Medicine
DX: Z00.00 Encounter for general adult medical examination without abnormal findings (principal); J44.9 Chronic obstructive pulmonary disease, unspecified; I48.91 Unspecified atrial fibrillation; C67.9 Malignant neoplasm of bladder, unspecified; G47.33 Obstructive sleep apnea (adult) (pediatric); Z99.89 Dependence on other enabling machines and devices; E78.00 Pure hypercholesterolemia, unspecified
CPT/HCPCS: 99397

== ENCOUNTER 2023-12-08 07:18 | Outpatient (REF) | payer MEDICARE, SELFPAY ==
[2023-12-08 07:38] LABS: MANUAL DIFF FLAG NO
[2023-12-08 07:55] LABS: Basophils Percent Auto 0.4 % (0-2); Eosinophils Absolute Auto 0.2 X10*3/uL (0.0-0.4); Eosinophils Percent Auto 2.6 % (0-4); Imm Gran Abs Auto 0.07 X10*3/uL (0.00-0.03); Lymphocytes Absolute Auto 2.3 X10*3/uL (1.2-4.9); Mean Corpuscular HGB Conc 34.8 g/dl (31.0-36.0); Mean Corpuscular Hemoglobin 30.9 pg (27.0-33.0); Mean Corpuscular Volume 88.8 fL (80.0-98.0); Mean Platelet Volume 9.2 fL (9.4-12.4); Monocytes Absolute Auto 0.8 X10*3/uL (0.1-1.2); Monocytes Percent Auto 10.4 % (2-11); Neutrophils Percent Auto 54.6 % (45-73); Platelet Count 196 X10*3/uL (160-400); Red Blood Count 5.18 X10*6/uL (4.60-5.80); Red Cell Distribution Width 12.7 % (11.0-16.0); White Blood Count 7.3 X10*3/uL (4.8-10.8)
[2023-12-08 08:31] LABS: B Type Natriuretic Peptide 21 pg/mL (<100)
[2023-12-08 08:33] LABS: Alanine Aminotransferase 24 U/L (0-40); Albumin Level 3.8 g/dL (3.5-5.0); Alkaline Phosphatase 59 U/L (39-117); Anion Gap 12 (12-20); Aspartate Amino Transferase 17 U/L (5-37); Bilirubin Total 0.6 mg/dL (0.0-1.0); Blood Urea Nitrogen 17 mg/dL (9-16); Calcium 9.1 mg/dL (8.4-10.2); Carbon Dioxide 26 mmol/L (22-29); Chloride 106 mmol/L (96-108); Cholesterol 159 mg/dL (<200); Estimated Glomerular Filt Rate > 60; Glucose Random 97 mg/dL (60-115); HDL Cholesterol 51 mg/dL (>40); LDL Cholesterol Calculated 91 mg/dL (<100); Sodium 140 mmol/L (135-145); Total Protein 6.9 g/dL (6.5-8.0); Triglycerides 88 mg/dL (<150)
[2023-12-08 08:51] LABS: Free T4 (Free Thyroxine) 1.14 ng/dL (0.71-1.85); Thyroid Stimulating Hormone 0.83 uIU/mL (0.32-4.0)
[2023-12-08 08:58] LABS: Folate 6.2 ng/mL (> or = 4.0); Vitamin B12 360 pg/mL (200-900)
== END 2023-12-08 07:19 | disposition home or self-care (01) ==
LOC: HO.LAB 07:18
PROVIDERS: PCP Internal Medicine; Visit Provider Internal Medicine
DX: E78.00 Pure hypercholesterolemia, unspecified (principal)
CPT/HCPCS: 36415; 80053; 80061; 82607; 82746; 83880; 84439; 84443; 85025

== ENCOUNTER 2023-12-11 12:33 | Outpatient (AMB) | payer MEDICARE, SELFPAY ==
[2023-12-11 12:54] VITALS: BP 120/80; PULSE 67; BMI 32.7
--- NOTE | 2023-12-11 12:54 | A.OFFVIS_ITS ---
Vital Signs 12/11/23 12:54 Height 5 ft 6 in Weight 202 lb 13.204 oz BMI 32.7 BP 120/80 Blood Pressure Location Lt brachial Position Sitting Pulse 67 Intake Visit Reasons: 6 mth f/up Intake Note: 6 month follow-up feeling good Python Architect Required: No Pss Delivery Professional: Pss Delivery Professional Present Accompanied by: Spouse Allergies dronedarone [From Multaq] Allergy (Mild, Verified 12/01/23 09:03) Rash Medication List - Last Reconciled 12/11/23 by Tacos Shearer MD apixaban (Eliquis) 5 mg PO BID 90 days cetirizine (Zyrtec) 10 mg PO DAILY PRN CPAP (CPAP Machine/Device) As directed docusate sodium (Colace) 100 mg PO DAILY fluticasone propion-salmeterol 115-21 mcg/actuation (Advair HFA) 2 puffs inhalation BID gemcitabine 1,000 mg IV QWEEK ipratropium bromide 1 spray intranasal DAILY metoprolol tartrate 50 mg PO BID omeprazole 20 mg PO DAILY 90 days polyethylene glycol 3350 (Miralax) 17 grams PO DAILY simvastatin 40 mg PO BEDTIME HPI Comments Details: Volodymyr returns for follow-up regarding cardiac arrhythmias. He has a history of PVCs, SVT as well as atrial fibrillation. Due to recurrent atrial fibrillation with rapid rate, he underwent ablation in 2021. In 2022, [facility] visit for question of SVT. Then put on amiodarone but only short term. Remains on beta- blockers only. Also on Eliquis. No recent issues since last seen. No angina or shortness of breath or palpitations or in fact anything cardiac sounding. [facility] Medical History (Updated 12/04/23 @ 10:54 by Any Jackson MD) SVT (supraventricular tachycardia) Asthma Bladder cancer COPD (chronic obstructive pulmonary disease) COPD exacerbation Jaundice ANALY on CPAP Cough PAF (paroxysmal atrial fibrillation) Preoperative cardiovascular examination Preop exam for internal medicine History of COVID-19 History of small bowel obstruction Personal history of nicotine dependence PAF (paroxysmal atrial fibrillation) LBBB (left bundle branch block) PVC (premature ventricular contraction) GERD (gastroesophageal reflux disease) Obstructive sleep apnea Erectile dysfunction Obesity (BMI 30-39.9) Bladder cancer Hypercholesterolemia Surgical History History of foot surgery (~2021) History of laparotomy (~2020) History of arthroplasty of right knee (~2020) History of meniscectomy of right knee (~2011) History of cataract surgery (~2020) History of appendectomy History of arthroplasty of left knee (~2019) History of meniscectomy of left knee (~2018) History of bladder surgery Hx of transurethral destruction of bladder lesion Family History Father Lung cancer Mother History of breast cancer Sister Multiple myeloma Other Cough Social History Household Members: Spouse Housing: House Are you a primary long term acute care registered nurse to a significant other at home: No Do you presently have visiting nurse or other home services: No Alcohol intake: former Patient Tobacco Use Status: Former Tobacco user Quit Date: 12 years ago Tobacco use type: Cigarette Years Smoked: (former smoker - onset 14yo, 1ppd x 46yrs, 45pyh, quit 2009) e-Cigarette/Vaping Use: Never Used Second Hand Smoke Exposure: No Advance Directives Date on File: 02/14/21 service: Yes ( [employer] - served in [employer] [facility] [employer] [facility]) Current occupational status: retired Current occupational exposures/hazards: Yes (was exposed to Agent [employer] while serving in [employer]) Cognitive needs: No Hearing needs: Yes (hearing aide) Vision needs: No Review of Systems Const Denies chills, Denies fatigue, Denies fever(s), Denies frequent falls, Denies weakness, Denies weight gain and Denies weight loss ENT Denies dizziness Card Denies chest pain, Denies leg edema, Denies lightheadedness, Denies palpitations, Denies dyspnea, Denies dyspnea on exertion, Denies orthopnea and Denies other (loss of consciousness) Resp Denies cough, Denies dyspnea and Denies dyspnea on exertion GI Denies hematochezia and Denies change in stool character Musc Denies abnormal gait, Denies muscle weakness, Denies numbness, Denies radiating pain into limb and Denies tingling Neuro Denies abnormal gait, Denies dizziness, Denies frequent falls, Denies numbness, Denies tingling and Denies weakness Endo Denies fatigue and Denies palpitations Physical Exam Vital Signs: Last Vital Signs Pulse 67 12/11/23 12:54 BP 120/80 12/11/23 12:54 BMI result Body Mass Index 32.7 Const General: comfortable and no acute distress Orientation/consciousness: patient oriented x3 HEENT Other: Unremarkable Head: Yes normal to inspection Neck Neck: Yes normal visual inspection Chest Chest palpation & inspection: normal inspection of the chest Resp Auscultation: clear to auscultation bilaterally Cardio Palpation: normal PMI Heart sounds: S1 normal heart sound present, S2 normal heart sound present, no gallops, no murmurs and no rubs GI Palpation (GI): Soft to palpation Back/Spine/Pelvis Other: unremarkable Skin General skin exam: no rashes or lesions noted Neuro General: patient oriented x3 Extrem General: Yes normal to inspection Psych Mental Status: mental status grossly normal Assessment & Plan Assessment & Plan (1) PAF (paroxysmal atrial fibrillation): Code(s): I48.0 - Paroxysmal atrial fibrillation Category: Medical (2) SVT (supraventricular tachycardia): Code(s): I47.1 - Supraventricular tachycardia Category: Medical (3) PVC (premature ventricular contraction): Code(s): I49.3 - Ventricular premature depolarization Category: Medical (4) LBBB (left bundle branch block): Code(s): I44.7 - Left bundle-branch block, unspecified Category: Medical (5) Obstructive sleep apnea: Comment: Patient is known to have sleep apnea since 2016, has been doing very well with the use of CPAP device. Advised to continue. Code(s): G47.33 - Obstructive sleep apnea (adult) (pediatric) Category: Medical Plan Various arrhythmias over time including PVCs, SVT, atrial fibrillation. [place]. Then tried Multaq but developed rash. Currently status post pulmonary vein isolation for atrial fibrillation, 2021. [place] [facility] [place] thought to have had SVT versus atrial flutter in December 2022 and he was placed on amiodarone, use short-term. Overall, he has stable on the current regimen of beta-blockers and Eliquis. May continue the same without changes. For obstructive sleep apnea, continue CPAP. He continues to spend his time between [place] and [place] and he will contact us as and when necessary. Otherwise, plan to see him back in 1 year. Cardiac testing- Echocardiogram 2022-LVEF 55-60%; mild left atrial dilatation; mild mitral regurgitation. Myocardial perfusion imaging-2022- normal. Coding Level of Care Code Est Pt Level 4 (85724) Diagnoses PAF (paroxysmal atrial fibrillation) I48.0 SVT (supraventricular tachycardia) I47.1 PVC (premature ventricular contraction) I49.3 LBBB (left bundle branch block) I44.7 Obstructive sleep apnea G47.33
== END 2023-12-11 13:16 | disposition home or self-care (01) ==
PROVIDERS: PCP Internal Medicine; Visit Provider Internal Medicine
DX: I48.0 Paroxysmal atrial fibrillation (principal); I47.10 Supraventricular tachycardia, unspecified; I49.3 Ventricular premature depolarization; I44.7 Left bundle-branch block, unspecified; G47.33 Obstructive sleep apnea (adult) (pediatric)
CPT/HCPCS: 99214

== ENCOUNTER → 2023-12-11 12:33 | Outpatient (BNVA) | payer MEDICARE, SELFPAY | PROVIDERS: PCP Internal Medicine; Visit Provider Internal Medicine | DX: I48.0 Paroxysmal atrial fibrillation (principal); I49.3 Ventricular premature depolarization; I47.10 Supraventricular tachycardia, unspecified; I44.7 Left bundle-branch block, unspecified; G47.33 Obstructive sleep apnea (adult) (pediatric) | CPT/HCPCS: 99212 ==

== ENCOUNTER 2024-01-18 07:51 | Outpatient (REF) | payer MEDICARE, SELFPAY ==
[2024-01-18 08:17] LABS: MANUAL DIFF FLAG NO
[2024-01-18 08:34] LABS: Basophils Percent Auto 0.5 % (0-2); Eosinophils Absolute Auto 0.2 X10*3/uL (0.0-0.4); Eosinophils Percent Auto 2.6 % (0-4); Hematocrit 45.6 % (42.0-52.0); Hemoglobin 15.7 g/dl (14.0-18.0); Imm Gran Abs Auto 0.01 X10*3/uL (0.00-0.03); Imm Gran Pct Auto 0.2 % (0.0-0.4); Lymphocytes Absolute Auto 1.8 X10*3/uL (1.2-4.9); Lymphocytes Percent Auto 29.3 % (20-40); Mean Corpuscular HGB Conc 34.4 g/dl (31.0-36.0); Mean Corpuscular Hemoglobin 30.4 pg (27.0-33.0); Mean Corpuscular Volume 88.2 fL (80.0-98.0); Mean Platelet Volume 9.5 fL (9.4-12.4); Monocytes Absolute Auto 0.6 X10*3/uL (0.1-1.2); Monocytes Percent Auto 9.6 % (2-11); Neutrophils Absolute Auto 3.5 x10*3/uL (2.0-8.3); Neutrophils Percent Auto 57.8 % (45-73); Platelet Count 164 X10*3/uL (160-400); Red Blood Count 5.17 X10*6/uL (4.60-5.80); Red Cell Distribution Width 12.7 % (11.0-16.0); White Blood Count 6.1 X10*3/uL (4.8-10.8)
[2024-01-18 09:13] LABS: Alanine Aminotransferase 22 U/L (0-40); Alkaline Phosphatase 58 U/L (39-117); Anion Gap 13 (12-20); Aspartate Amino Transferase 18 U/L (5-37); Bilirubin Total 0.7 mg/dL (0.0-1.0); Blood Urea Nitrogen 13 mg/dL (9-16); Calcium 9.3 mg/dL (8.4-10.2); Carbon Dioxide 28 mmol/L (22-29); Chloride 105 mmol/L (96-108); Cholesterol 155 mg/dL (<200); Estimated Glomerular Filt Rate > 60; Glucose Random 98 mg/dL (60-115); HDL Cholesterol 48 mg/dL (>40); LDL Cholesterol Calculated 87 mg/dL (<100); Potassium 4.6 mmol/L (3.3-5.1); Sodium 141 mmol/L (135-145); Total Protein 7.2 g/dL (6.5-8.0); Triglycerides 100 mg/dL (<150)
[2024-01-18 09:16] LABS: Thyroid Stimulating Hormone 0.88 uIU/mL (0.32-4.0)
[2024-01-18 09:31] LABS: Folate 5.6 ng/mL (> or = 4.0); Vitamin B12 362 pg/mL (200-900)
== END 2024-01-18 07:52 | disposition home or self-care (01) ==
LOC: HO.LAB 07:51
PROVIDERS: PCP Internal Medicine; Visit Provider Internal Medicine
DX: E78.00 Pure hypercholesterolemia, unspecified (principal)
CPT/HCPCS: 36415; 80053; 80061; 82607; 82746; 84439; 84443; 85025

== ENCOUNTER 2024-01-26 11:32 | Outpatient (AMB) | payer MEDICARE, SELFPAY ==
--- NOTE | 2024-01-26 11:37 | AM.OFFWIN_ITS ---
Intake Vital Signs 01/26/24 11:38 Height 5 ft 6 in Weight 208 lb BMI 33.6 BP 100/72 Blood Pressure Location Rt brachial Position Sitting Pulse 63 Pulse Source Pulse Oximeter Temp 98.3 F Temp Source Oral Pulse Oximetry (%) 96 Oxygen Delivery Method Room Air Intake Visit Reasons: EP ?bronchitis/headache Intake Note: Pt is here today c/o coughing up phelgm greenish x2days Patient Tobacco Use Status: Former Tobacco user Allergies dronedarone [From Multaq] Allergy (Mild, Verified 12/01/23 09:03) Rash HPI EP ?bronchitis/headache HPI Details Patient with history of COPD presents with a few days of cough, wheeze and mild SOB. Also nasal congestion, headache and mild fatigue. Initially had chills but no fevers. Denies sick contacts. No chest pain, nausea or diaphoresis. [facility] Medical History (Updated 12/13/23 @ 15:22 by Deana Casanova PA-C) Bladder cancer Atrial fibrillation SVT (supraventricular tachycardia) LBBB (left bundle branch block) PVC (premature ventricular contraction) Hypercholesterolemia Asthma COPD (chronic obstructive pulmonary disease) Jaundice ANALY on CPAP Cough Personal history of nicotine dependence History of COVID-19 History of small bowel obstruction GERD (gastroesophageal reflux disease) Erectile dysfunction Obesity (BMI 30-39.9) Surgical History History of foot surgery (~2021) History of laparotomy (~2020) History of arthroplasty of right knee (~2020) History of meniscectomy of right knee (~2011) History of cataract surgery (~2020) History of appendectomy History of arthroplasty of left knee (~2019) History of meniscectomy of left knee (~2019) History of bladder surgery Hx of transurethral destruction of bladder lesion Family History Father Lung cancer Mother History of breast cancer Sister Multiple myeloma Other Cough Social History Household Members: Spouse Housing: House Are you a primary health care assistant to a significant other at home: No Do you presently have visiting nurse or other home services: No Alcohol intake: former Patient Tobacco Use Status: Former Tobacco user Tobacco use type: Cigarette Years Smoked: (former smoker - onset 14yo, 1ppd x 46yrs, 45pyh, quit 2009) e-Cigarette/Vaping Use: Never Used Second Hand Smoke Exposure: No Advance Directives Date on File: 02/14/21 service: Yes ( [employer] - served in [employer] [facility]) Current occupational status: retired Current occupational exposures/hazards: Yes (was exposed to Agent [place] while serving in [employer]) Cognitive needs: No Hearing needs: Yes (hearing aide) Vision needs: No Review of Systems Const Details: See HPI Physical Exam Vital Signs: Last Vital Signs Temp 98.3 F 01/26/24 11:38 Pulse 63 01/26/24 11:38 BP 100/72 01/26/24 11:38 Pulse Ox 96 01/26/24 11:38 Oxygen Delivery Method Room Air 01/26/24 11:38 BMI result Body Mass Index 33.6 Const General: no acute distress and well developed Nutritional Appearance: well nourished Orientation/consciousness: patient oriented x3 HEENT Other: Mild nasal congestion without pus or blood TMs normal bilateral Mild posterior pharyngeal erythema without exudate. Mild postnasal drip Head: Yes normocephalic and Yes atraumatic Eyes General: appearance normal, both eyes and all related structures Pupils: Equal, round and reactive pupils present EOM: EOMs intact bilaterally Resp Other: Mild wheeze and crackles bilateral mid lung noriega Effort & Inspection: normal respiratory effort Auscultation: clear to auscultation bilaterally Cardio Rate: regular rate Rhythm: regular rhythm Heart sounds: S1 normal heart sound present, S2 normal heart sound present, no gallops, no murmurs and no rubs Neuro General: patient oriented x3 and gait normal Cranial nerves: Yes Equal, round and reactive pupils present Psych Affect: normal affect Assessment & Plan Assessment & Plan (1) Bronchitis: Code(s): J40 - Bronchitis, not specified as acute or chronic Plan: Likely bronchitis with mild COPD/asthma exacerbation Possible early pneumonia Start Z-Jacobo Will also give him prednisone He uses Advair at home and will continue this. Does not seem to have a an albuterol rescue inhaler so I will send script for this as well. Call or return to office if not improving or worsens. Medications: New azithromycin (Zithromax Z-Jacobo) take 500 mg today (day 1), then 250 mg for 4 days (days 2-5) PO 5 days 6 tabs 0RF prednisone 40 mg (2 x 20 mg) PO DAILY 5 days 10 tabs 0RF albuterol sulfate 90 mcg/actuation 2 puffs inhalation Q8H 30 days PRN 8.5 grams 0RF shortness of breath or wheezing Coding Level of Care Code Est Pt Level 3 (00179) Diagnoses Bronchitis J40
[2024-01-26 11:38] VITALS: BP 100/72; PULSE 63; TEMP 36.8; O2SAT 96; BMI 33.6
== END 2024-01-26 12:08 | disposition home or self-care (01) ==
PROVIDERS: PCP Internal Medicine; Visit Provider Family Medicine
DX: J40 Bronchitis, not specified as acute or chronic (principal)
CPT/HCPCS: 99051; 99213

== ENCOUNTER 2024-01-29 12:37 | Outpatient (REF) | payer MEDICARE, SELFPAY ==
--- NOTE | ~2024-01-29 | CT_ITS ---
EXAMINATION: CT LOW-DOSE SCREENING CHEST WITHOUT CONTRAST CLINICAL INFORMATION: Personal history of nicotine dependence. Former smoker. The patient has a 80 pack-year history of smoking, having quit 14 years ago. COMPARISON: CT chest January 29, 2024, x-ray chest February 08, 2023, CT abdomen and pelvis 02/14/2021. TECHNIQUE: Multidetector volumetric CT imaging of the chest is performed on a Siemens SOMATOM Definition scanner without contrast using low dose technique. Additional 2D coronal and sagittal reformatted images and axial 3D maximum intensity projection (MIP) images are generated on the CT workstation. This CT examination was performed using dose optimization techniques as appropriate, variously including the following: *Automated exposure control. *Adjustment of mA and/or kV according to patient size (this includes techniques or standardized protocols for targeted exams where dose is matched to indication/reason for exam; i.e. extremities or head). *Use of iterative reconstruction technique. TOTAL EXAM DLP: 58 mGy-cm. CTDIvol: 1.78 mGy. FINDINGS: PULMONARY NODULES: A few small unchanged pulmonary nodules are seen, none larger than 3 mm. There is a new right lower lobe subpleural nodule measuring 4 mm (5:317). LUNGS: Lungs bilaterally symmetrically expanded. There is moderate emphysema and diffuse bronchial thickening without bronchiectasis. No effusion or pneumothorax. Central airways patent. MEDIASTINUM: No mediastinal, hilar or axillary adenopathy or free fluid collection. CORONARY ARTERY CALCIFICATION: Moderate. THYROID GLAND: Unremarkable to the extent seen. CARDIOVASCULAR STRUCTURES: Aortic and heart size normal. No pericardial effusion. CHEST WALL/AXILLA: Unremarkable. UPPER ABDOMEN: Included portions of the solid organs in the upper abdomen unremarkable on noncontrast imaging. A benign left upper pole 4.0 cm Bosniak class I renal cyst is noted which requires no additional imaging or follow up. No solid renal masses are seen. OSSEOUS STRUCTURES: No suspicious focal findings. CT/CT lung screening IMPRESSION: There is a new 4 mm pulmonary nodule in the right lower lobe. Other nodules are stable. ASSESSMENT: 1. Lung-RADS Category 3: Probably benign findings. N/A. 2. Lung-RADS Category S: Negative. There are no clinically significant or potentially clinically significant findings not related to the lungs requiring urgent additional evaluation. RECOMMENDATION: A 6-month follow up low-dose lung CT scan is recommended. An order for CT LUNG CANCER SCREENING SHORT INTERVAL FOLLOWUP ([id number]) can be placed. Electronically signed by: Josesito Johnson MD 03/24/2024 10:33 PM EDT
== END 2024-01-29 12:38 | disposition home or self-care (01) ==
LOC: HO.CT 12:37
PROVIDERS: PCP Internal Medicine; Visit Provider Physician Assistant Medical
DX: Z12.2 Encounter for screening for malignant neoplasm of respiratory organs (principal); Z87.891 Personal history of nicotine dependence
CPT/HCPCS: 71271

== ENCOUNTER 2024-01-31 08:41 | Outpatient (AMB) | payer MEDICARE, SELFPAY ==
--- NOTE | 2024-01-31 08:49 | MHC.OFFWIV ---
Intake Vital Signs 01/31/24 08:50 Height 5 ft 6 in Weight 212 lb BMI 34.2 BP 110/74 Blood Pressure Location Rt brachial Position Sitting Pulse 74 Pulse Source Pulse Oximeter Temp 97.8 F Temp Source Oral Pulse Oximetry (%) 97 Oxygen Delivery Method Room Air Intake Visit Reasons: EP ?bronchitis Intake Note: pt here c/o cough, congestion, chest tightness ? bronchitis. Started Sunday Patient Tobacco Use Status: Former Tobacco user Allergies dronedarone [From Multaq] Allergy (Mild, Verified 01/31/24 08:49) Rash Do you need a note to return to daycare/school/sports/work: No HPI EP ?bronchitis HPI Details This note is constructed using voice recognition software. While every effort has been made to ensure accuracy, pearl cutter errors may have been included. The patient is a 74 year old male who presents to the clinic today with concern for ongoing COPD exacerbation, not improving following azithromycin and prednisone burst. He denies fevers, chills. He has mild dyspnea with exertion, but none at rest. Has thick, green secretions but not copious, and report secretions to be manageable. He was seen 01/26/24 in urgent care leading to his treatment, which completed yesterday. He had a CT chest this week for lung cancer screening, which he credits previously to diagnosing his COPD. [facility] Medical History (Updated 12/13/23 @ 15:22 by Deana Casanova PA-C) Bladder cancer Atrial fibrillation SVT (supraventricular tachycardia) LBBB (left bundle branch block) PVC (premature ventricular contraction) Hypercholesterolemia Asthma COPD (chronic obstructive pulmonary disease) Jaundice ANALY on CPAP Cough Personal history of nicotine dependence History of COVID-19 History of small bowel obstruction GERD (gastroesophageal reflux disease) Erectile dysfunction Obesity (BMI 30-39.9) Surgical History History of foot surgery (~2021) History of laparotomy (~2020) History of arthroplasty of right knee (~2020) History of meniscectomy of right knee (~2011) History of cataract surgery (~2020) History of appendectomy History of arthroplasty of left knee (~2019) History of meniscectomy of left knee (~2018) History of bladder surgery Hx of transurethral destruction of bladder lesion Family History Father Lung cancer Mother History of breast cancer Sister Multiple myeloma Other Cough Social History Household Members: Spouse Housing: House Are you a primary nonfarm animal caretaker to a significant other at home: No Do you presently have visiting nurse or other home services: No Alcohol intake: former Patient Tobacco Use Status: Former Tobacco user Tobacco use type: Cigarette Years Smoked: (former smoker - onset 14yo, 1ppd x 46yrs, 45pyh, quit 2009) e-Cigarette/Vaping Use: Never Used Second Hand Smoke Exposure: No Advance Directives Date on File: 02/14/21 service: Yes ([employer] - served in [facility] [facility]) Current occupational status: retired Current occupational exposures/hazards: Yes (was exposed to Agent [place] while serving in [employer]) Cognitive needs: No Hearing needs: Yes (hearing aide) Vision needs: No Review of Systems Const All systems reviewed & are unremarkable except as noted in HPI and below Physical Exam Vital Signs: Last Vital Signs Temp 97.8 F 01/31/24 08:50 Pulse 74 01/31/24 08:50 BP 110/74 01/31/24 08:50 Pulse Ox 97 01/31/24 08:50 Oxygen Delivery Method Room Air 01/31/24 08:50 BMI result Body Mass Index 34.2 Const General: cooperative, healthy appearing, comfortable and no acute distress Orientation/consciousness: patient oriented x3 Limitations: no limitations HEENT Head: Yes normal to inspection Ears: hearing grossly normal bilaterally, external ears normal and TM's normal bilaterally General nose exam: Normal external nose present, Normal nares present and No nasal discharge present Face and sinus: Yes normal facial exam and Yes sinuses nontender Mouth: Normal oral and palatal mucosa present and moist mucous membranes Throat: Yes posterior oropharynx normal, Yes tonsils normal and Yes uvula midline Eyes General: appearance normal, both eyes and all related structures Neck Neck: Yes normal visual inspection Resp Effort & Inspection: normal respiratory effort, able to speak in complete sentences, Actively coughing, no respiratory distress, not tachypneic, no tripod positioning and no use of accessory muscles Auscultation: clear to auscultation bilaterally and no wheezes Cardio Jugular venous distension: no JVD Rate: regular rate Rhythm: regular rhythm Heart sounds: S1 normal heart sound present, S2 normal heart sound present, no click, no gallops, no murmurs and no rubs Skin General skin exam: no rashes or lesions noted, elasticity normal and turgor normal Neuro General: patient oriented x3 Extrem General: Yes normal to inspection and Yes no clubbing, cyanosis or edema Assessment & Plan Assessment & Plan (1) COPD exacerbation: Code(s): J44.1 - Chronic obstructive pulmonary disease with (acute) exacerbation Plan: Given lack of resolution despite treatment with azithromycin and prednisone, we will add Augmentin to his treatment plan. Additionally we will obtain chest x-ray today. Reviewed proper use of albuterol inhaler, including encouraging use of spacer given history of poor technique. Advised follow up with PCP. Advised ER worsening symptoms. Plan See above for full details and plan. Orders: Orders XR chest 2V Today J44.1 - Chronic obstructive pulmonary disease with (acute) exacerbation Medications: New amoxicillin-pot clavulanate 875-125 mg 1 tab PO BID 10 days 20 tabs 0RF Coding Level of Care Code Est Pt Level 4 (62125) Diagnoses COPD exacerbation J44.1
[2024-01-31 08:50] VITALS: BP 110/74; PULSE 74; TEMP 36.6; O2SAT 97; BMI 34.2
== END 2024-01-31 10:26 | disposition home or self-care (01) ==
PROVIDERS: PCP Internal Medicine; Visit Provider Registered Nurse
DX: J44.1 Chronic obstructive pulmonary disease with (acute) exacerbation (principal)
CPT/HCPCS: 99214

== ENCOUNTER 2024-01-31 09:39 | Outpatient (REF) | payer MEDICARE, SELFPAY ==
--- NOTE | ~2024-01-31 | XR_ITS ---
EXAMINATION: XR CHEST CLINICAL INFORMATION: Chronic obstructive pulmonary disease with acute exacerbation COMPARISON: 02/08/2023 TECHNIQUE: 2 views of the chest were obtained. FINDINGS: Lungs are well-inflated and clear. Trachea is midline in position. No interstitial disease, consolidation or mass. No pleural effusion or pneumothorax. Cardiac silhouette and pulmonary vessels are normal in size. The mediastinum and kandy have normal contour. Multilevel moderate spondylosis of the thoracic spine. XR/XR chest 2V IMPRESSION: No acute cardiopulmonary abnormality.
== END 2024-01-31 09:40 | disposition home or self-care (01) ==
LOC: HO.HMGCX 09:39
PROVIDERS: PCP Internal Medicine; Visit Provider Registered Nurse
DX: J44.1 Chronic obstructive pulmonary disease with (acute) exacerbation (principal)
CPT/HCPCS: 71046

== ENCOUNTER 2024-02-19 09:55 | Emergency (ER) | payer OTHER, SELFPAY ==
--- NOTE | ~2024-02-19 | CT_ITS ---
EXAMINATION: CT ABDOMEN AND PELVIS WITH CONTRAST CLINICAL INFORMATION: Abnormal LFTs and jaundice COMPARISON: MR abdomen 06/21/2022 TECHNIQUE: Multidetector volumetric images were obtained from the superior aspect of the liver through the pubic symphysis following administration 85 mL of Omnipaque 350 intravenous contrast. Sagittal and coronal reformatted images were obtained on the technologist's workstation. Oral contrast: No This CT examination was performed using dose optimization techniques as appropriate, variously including the following: *Automated exposure control *Adjustment of mA and/or kV according to patient size (this includes techniques or standardized protocols for targeted exams where dose is matched to indication/reason for exam; i.e. extremities or head) *Use of iterative reconstruction technique DLP: 674 mGy-cm FINDINGS: LUNG BASES: The visualized lung bases are unremarkable. LIVER, GALLBLADDER, AND BILIARY TREE: The liver is normal in size, shape, and attenuation. Calcified granulomas are present. No focal hepatic lesion or biliary ductal dilatation is present. The gallbladder is unremarkable with no evidence of radiopaque gallstones, gallbladder wall thickening, or obvious pericholecystic inflammatory changes. PANCREAS: Unremarkable. SPLEEN: Calcified granulomas are present. The spleen is otherwise unremarkable.. ADRENAL GLANDS: Unremarkable. KIDNEYS AND URETERS: The kidneys are normal in size, shape, and attenuation. Bilateral benign Bosniak class I renal cysts are noted which require no additional imaging or follow-up. No solid renal masses are seen. Vascular calcifications are seen along with probable nonobstructing punctate left renal calculus. No hydronephrosis or hydroureter seen. No perinephric stranding. BLADDER: Unremarkable. GASTROINTESTINAL TRACT: The small and large bowel are unremarkable. The appendix is not seen but there is no evidence of appendicitis evidence of appendicitis. ABDOMINAL WALL: Tiny inguinal hernias are present containing only fat. LYMPH NODES: No retroperitoneal lymphadenopathy. VASCULAR: Calcific atherosclerotic changes are present in the aorta and iliofemoral vessels. There is no evidence of an abdominal aortic aneurysm. PELVIC VISCERA: The prostate and seminal vesicles are unremarkable. OSSEOUS STRUCTURES: Mild degenerative changes are present in the spine most marked from L3 through L5. There is grade 1 anterolisthesis of L4 upon L5. CT/CT abdomen pelvis w IV con IMPRESSION: 1. A cause for the patient's abnormal LFTs and jaundice has not been found. 2. Incidental note made of calcified granulomas in the liver and spleen, benign Bosniak class I renal cysts which need no additional imaging or follow-up, probable nonobstructing punctate left renal calculus and degenerative changes in the spine. Fleischner guidelines were followed.
[2024-02-19 10:31] VITALS: BP 126/78; PULSE 61; RESP 16; TEMP 37; O2SAT 96; BMI 32.0
[2024-02-19 10:48] LABS: MANUAL DIFF FLAG NO
[2024-02-19 10:54] LABS: Basophils Percent Auto 0.4 % (0-2); Eosinophils Absolute Auto 0.2 X10*3/uL (0.0-0.4); Eosinophils Percent Auto 2.5 % (0-4); Hematocrit 45.6 % (42.0-52.0); Hemoglobin 15.5 g/dl (14.0-18.0); Imm Gran Abs Auto 0.01 X10*3/uL (0.00-0.03); Imm Gran Pct Auto 0.1 % (0.0-0.4); Lymphocytes Absolute Auto 1.3 X10*3/uL (1.2-4.9); Lymphocytes Percent Auto 17.5 % (20-40); Mean Corpuscular Hemoglobin 31.1 pg (27.0-33.0); Mean Corpuscular Volume 91.6 fL (80.0-98.0); Mean Platelet Volume 9.5 fL (9.4-12.4); Monocytes Absolute Auto 0.8 X10*3/uL (0.1-1.2); Monocytes Percent Auto 10.5 % (2-11); Neutrophils Absolute Auto 5.1 x10*3/uL (2.0-8.3); Platelet Count 317 X10*3/uL (160-400); Red Blood Count 4.98 X10*6/uL (4.60-5.80); Red Cell Distribution Width 14.4 % (11.0-16.0); White Blood Count 7.3 X10*3/uL (4.8-10.8)
[2024-02-19 10:55] LABS: Prothrombin Time 12.3 SEC (11.1-13.3)
[2024-02-19 10:58] LABS: Partial Thromboplastin Time 33.1 SEC (26.0-36.8)
[2024-02-19 10:58] LABS: Appearance Urine Clear; Color Urine Dark Yellow; Glucose Urine UA Negative (Negative); Leukocyte Esterase Urine Negative (Negative); Nitrite Urine Negative (Negative); Urine Blood Negative (Negative); Urine Ketones Negative (Negative); Urine Protein Negative (Neg-Trace)
[2024-02-19 11:07] LABS: Alanine Aminotransferase 80 U/L (0-40); Albumin Level 3.8 g/dL (3.5-5.0); Alkaline Phosphatase 119 U/L (39-117); Anion Gap 11 (12-20); Aspartate Amino Transferase 52 U/L (5-37); Bilirubin Direct 3.6 mg/dL (0.0-0.5); Bilirubin Total 5.7 mg/dL (0.0-1.0); Blood Urea Nitrogen 17 mg/dL (9-16); Calcium 9.4 mg/dL (8.4-10.2); Carbon Dioxide 29 mmol/L (22-29); Chloride 102 mmol/L (96-108); Creatinine Clr Calc Pharmacy 70.9; Estimated Glomerular Filt Rate > 60; Glucose Random 108 mg/dL (60-115); Lipase 28 U/L (8-78); Potassium 4.2 mmol/L (3.3-5.1); Sodium 138 mmol/L (135-145); Total Protein 7.2 g/dL (6.5-8.0)
--- NOTE | 2024-02-19 12:05 | ED_ITS ---
HPI - General Adult General Chief complaint: Recheck/Abnormal Lab/Rx Stated complaint: Abnormal liver function Time Seen by Provider: 02/19/24 12:04 Source: patient Mode of arrival: ambulatory Limitations: no limitations History of Present Illness HPI narrative: This is a 74-year-old man with past medical history of COPD, bladder cancer, jaundice, paroxysmal atrial fibrillation, ANALY on CPAP presents for evaluation of jaundice and abnormal liver function tests. Patient reports that he was visiting in [place] and was hospitalized there for 3 days February 07 to February 10. Patient states that he was hospitalized for the same reasons that bring him to the emergency room here today. He states that they were unable to find a reason for his jaundice. He states that he has also noted that his urine is dark. He reports feeling tired. He states his skin is itchy. He states no abdominal pain. He states no changes to his bowel habits. He states no melena or hematochezia. He states that they did CT scans and found a ?fatty liver . He states he had an ultrasound done was called by her which initially showed a ?collapsed ?gallbladder, but then states that a repeat ultrasound was normal. He states no fevers or chills. He states no dysuria or urinary frequency/urgency. He states that they are planning on doing a liver biopsy, but he states he is unsure why though states that his function tests improved and so they requested permission to be discharged to come back here to follow-up with his doctors. He states he called his primary care doctor and fentanyl that they were on vacation. He states he also called his administrative support manager and found out that they too were on vacation. Related Data Home Medications ?Medication ?Instructions ?Recorded ?Confirmed ipratropium bromide 21 mcg (0.03 1 spray intranasal DAILY 11/27/22 12/11/23 %) nasal spray cetirizine 10 mg tablet (Zyrtec) 10 mg PO DAILY PRN 11/28/22 12/11/23 docusate sodium 100 mg capsule 100 mg PO DAILY 12/04/23 12/11/23 (Colace) fluticasone propionate 115 2 puff inhalation BID 12/04/23 12/11/23 mcg-salmeterol 21 mcg/actuation HFA inhaler (Advair HFA) gemcitabine 200 mg intravenous 1,000 mg IV QWEEK 12/04/23 12/04/23 solution polyethylene glycol 3350 17 gram 17 g PO DAILY 12/04/23 12/11/23 oral powder packet (Miralax) Previous Rx's ?Medication ?Instructions ?Recorded CPAP (CPAP Machine/Device) #1 ea 02/14/22 apixaban 5 mg tablet (Eliquis) 5 mg PO BID 90 days #180 tabs 05/01/23 simvastatin 40 mg tablet 40 mg PO BEDTIME #90 tabs 11/23/23 metoprolol tartrate 50 mg tablet 50 mg PO BID #90 tabs 12/11/23 omeprazole 20 mg capsule,delayed 20 mg PO DAILY 90 days #90 caps 12/17/23 release albuterol sulfate 90 mcg/actuation 2 puff inhalation Q8H PRN 01/26/24 aerosol inhaler shortness of breath or wheezing 30 days #8.5 grams amoxicillin 875 mg-potassium 1 tab PO BID 10 days #20 tabs 01/31/24 clavulanate 125 mg tablet tranexamic acid 650 mg tablet 650 mg PO BID 5 days #10 tabs 02/06/24 Allergies Allergy/AdvReac Type Severity Reaction Status Date / Time dronedarone [From Multaq] Allergy Mild Rash Verified 02/19/24 10:36 amoxicillin [From Augmentin] Allergy Unknown Verified 02/19/24 10:36 clavulanic acid Allergy Unknown Verified 02/19/24 10:36 [From Augmentin] Review of Systems 2 Review of Systems: ROS as per HPI [facility] Past Medical History Medical History (Updated 02/19/24 @ 15:28 by Stef Price MD) Bladder cancer Atrial fibrillation SVT (supraventricular tachycardia) LBBB (left bundle branch block) PVC (premature ventricular contraction) Hypercholesterolemia Asthma COPD (chronic obstructive pulmonary disease) Jaundice ANALY on CPAP Cough Personal history of nicotine dependence History of COVID-19 History of small bowel obstruction GERD (gastroesophageal reflux disease) Erectile dysfunction Obesity (BMI 30-39.9) Surgical History History of foot surgery (~2021) History of laparotomy (~2020) History of arthroplasty of right knee (~2020) History of meniscectomy of right knee (~2011) History of cataract surgery (~2020) History of appendectomy History of arthroplasty of left knee (~2019) History of meniscectomy of left knee (~2018) History of bladder surgery Hx of transurethral destruction of bladder lesion Family History Family History Father Lung cancer Mother History of breast cancer Sister Multiple myeloma Other Cough Social History Social History Household Members: Spouse Housing: House Are you a primary medicare contact specialist to a significant other at home: No Do you presently have visiting nurse or other home services: No Alcohol intake: former Patient Tobacco Use Status: Former Tobacco user Tobacco use type: Cigarette Years Smoked: (former smoker - onset 14yo, 1ppd x 46yrs, 45pyh, quit 2009) e-Cigarette/Vaping Use: Never Used Second Hand Smoke Exposure: No Advance Directives: Yes Advance Directives on File: Yes Advance Directives Date on File: 02/14/21 service: Yes ( [employer] - served in [facility]) Current occupational status: retired Current occupational exposures/hazards: Yes (was exposed to [employer] [place] while serving in [employer]) Cognitive needs: No Hearing needs: Yes (hearing aide) Vision needs: No Physical Exam ED Vital Signs: Vital Signs - 24 hr 02/19/24 10:31 02/19/24 12:40 02/19/24 14:36 Temperature 98.6 F 97.7 F 97.9 F Pulse Rate 61 59 62 Respiratory Rate 16 14 14 Blood Pressure 126/78 152/84 H 149/79 H Pulse Oximetry 96 96 97 Oxygen Delivery Method Room Air Room Air Room Air BMI result Body Mass Index 32.0 Gen: NAD, AOx3 HEENT: NCAT, EOMI, scleral icterus CV: RRR Pulm: CTAB, no increased work of breathing GI: Soft, NTND, no rebound, guarding or rigidity Neuro: Grossly non focal Skin: Jaundiced Medications Administered Discontinued Medications Generic Name Dose Route Start Last Admin Trade Name Freq PRN Reason Stop Dose Admin Lactated Ringer's 1,000 mls @ 999 mls/hr 02/19/24 13:10 02/19/24 14:29 Lr IV 02/19/24 14:10 999 mls/hr .Q1H1M ONE Administration Iohexol 85 ml 02/19/24 12:47 02/19/24 12:48 Iohexol 350 Mg/Ml 100 Ml Infus..Btl IV 02/19/24 12:48 85 ml ONCE ONE Administration Medical Decision Making Medical Decision Making MDM Narrative: Differential diagnosis includes, but is not limited to primary biliary cholangitis, adverse drug reaction, malignancy. 1204 - Given lack of abdominal pain, chronicity of symptoms, unrevealing workup with imaging studies last week including ultrasound, CT and MRI and lack of fever, I have very low clinical suspicion for cholecystitis, choledocholithiasis or acute infectious process. This is not sepsis. Patient is afebrile and hemodynamically stable on room air. Exam is notable for jaundice and scleral icterus. I independently reviewed and interpreted patient's labs which are notable for mixed hyperbilirubinemia, transaminitis with AST of 52 and ALT 80, minimally elevated alkaline phosphatase of 119. Lipase is within normal limits. Urinalysis is unremarkable. Given predominant bilirubin elevation with very minimal elevation in AST and ALT, I have high suspicion for primary biliary etiology of patient's symptoms. Given fatigue, pruritus, dark urine have a higher clinical suspicion for primary biliary cholangitis. I reviewed CT imaging radiology impression as below which is benign and reassuring demonstrating no acute process. I considered obtaining ultrasound imaging, but as aforementioned patient does not have history to suggest cholecystitis or choledocholithiasis. Based on patient's history this appears to be a chronic and recurring medical condition. Thus, ultrasound imaging is not obtained at this time. I discussed with contaminated land consultant, Dr. Souza, who is a colleague of patient's administrative support manager (Dr. Khan) who agrees with continued outpatient evaluation and additional outpatient lab tests. I did review the medical record, which demonstrates the patient had similar similar abnormal LFTs with a reassuring workup and imaging studies in June of 2022. Dr. Souza stated this may be drug induced hepatitis (however, AST and ALT are not impressively elevated; regardless, patient has discontinued Augmentin. Further, patient has similar presentation in June of 2022 without use of penicillin antibiotic at that time). Dr. Souza states he will start patient on a new prescription (Ursodiol) and order outpatient labs for evaluation of auto-immune diseases (such as anti-smooth muscle antibodies, SANDY). He states low suspicion for hemochromatosis. On re-examination, patient is well-appearing and in no acute distress. ?There is no indication for further emergent evaluation in this otherwise well-appearing patient as above. ?Patient is provided written and verbal instructions, educational materials, recommendations for outpatient follow-up, strict return precautions and teach back is performed. ?Patient states understanding and agreement with plan of care. ?Patient is discharged home in stable and improved condition. Admission/Observation Consideration of admission/observation: Escalation of care including admission/observation considered Consult Healthcare Provider Management of the patient was discussed with: Bisque Brusher I discussed with contaminated land consultant administrative support manager Dr. Souza as above Lab Data MDM Lab Attestation statement: I reviewed the patient's lab results. I independently reviewed and interpreted patient's labs which are notable for mixed hyperbilirubinemia, transaminitis with AST of 52 and ALT 80, minimally elevated alkaline phosphatase of 119. Lipase is within normal limits. Urinalysis is unremarkable. 02/19/24 10:42 02/19/24 10:42 Labs: Lab Results 02/19/24 02/19/24 02/19/24 Range/Units 10:42 10:46 12:18 WBC 7.3 (4.8-10.8) X10*3/uL RBC 4.98 (4.60-5.80) X10*6/uL Hgb 15.5 (14.0-18.0) g/dl Hct 45.6 (42.0-52.0) % MCV 91.6 (80.0-98.0) fL MCH 31.1 (27.0-33.0) pg MCHC 34.0 (31.0-36.0) g/dl RDW 14.4 (11.0-16.0) % Plt Count 317 D (160-400) X10*3/uL MPV 9.5 (9.4-12.4) fL Immature Gran % (Auto) 0.1 (0.0-0.4) % Neut % (Auto) 69.0 (45-73) % Lymph % (Auto) 17.5 L (20-40) % [place] % (Auto) 10.5 (2-11) % Eos % (Auto) 2.5 (0-4) % Baso % (Auto) 0.4 (0-2) % Lymph # (Auto) 1.3 (1.2-4.9) X10*3/uL [place] # (Auto) 0.8 (0.1-1.2) X10*3/uL Eos # (Auto) 0.2 (0.0-0.4) X10*3/uL Baso # (Auto) 0.0 (0.0-0.2) X10*3/uL Abs Immat Gran (auto) 0.01 (0.00-0.03) X10*3/uL Absolute Neuts (auto) 5.1 (2.0-8.3) x10*3/uL Absolute Nucleated RBC 0.000 (0.0-0.012) X10*3/uL Nucleated RBC % (auto) 0.0 (0.0-0.2) /100WBC PT 12.3 (11.1-13.3) SEC INR 1.0 (0.9-1.1) APTT 33.1 (26.0-36.8) SEC Sodium 138 (135-145) mmol/L Potassium 4.2 (3.3-5.1) mmol/L Chloride 102 (96-108) mmol/L Carbon Dioxide 29 (22-29) mmol/L Anion Gap 11 L (12-20) BUN 17 H (9-16) mg/dL Creatinine 0.93 (0.5-1.4) mg/dL Estim Creat Clear Calc 70.9 Estimated GFR > 60 Random Glucose 108 (60-115) mg/dL Calcium 9.4 (8.4-10.2) mg/dL Total Bilirubin 5.7 H (0.0-1.0) mg/dL Direct Bilirubin 3.6 H (0.0-0.5) mg/dL AST 52 H (5-37) U/L ALT 80 H (0-40) U/L Alkaline Phosphatase 119 H (39-117) U/L Total Protein 7.2 (6.5-8.0) g/dL Albumin 3.8 (3.5-5.0) g/dL Lipase 28 32 (8-78) U/L Urine Color Dark Yellow Urine Appearance Clear Urine pH 6.0 (5.0-9.0) Ur Specific [place] 1.010 (1.005-1.025) Urine Protein Negative (Neg-Trace) mg/dL Urine Glucose (UA) Negative (Negative) mg/dL Urine Ketones Negative (Negative) mg/dL Urine Blood Negative (Negative) Urine Nitrite Negative (Negative) Ur Leukocyte Esterase Negative (Negative) Radiology Impression Discussion of test interpretation with radiology: I have reviewed the radiologist's reading. Radiologist Impression: CT/CT abdomen pelvis w IV con IMPRESSION: 1. A cause for the patient's abnormal LFTs and jaundice has not been found. 2. Incidental note made of calcified granulomas in the liver and spleen, benign Bosniak class I renal cysts which need no additional imaging or follow-up, probable nonobstructing punctate left renal calculus and degenerative changes in the spine. Fleischner guidelines were followed. Dictated By: Josesito Johnson MD Signed By: <Electronically signed by Josesito Johnsno MD in OV> 02/19/24 1418 Chronic Conditions Critical Care Time: A total of 45 minutes spent in direct patient care with coordinating critical resuscitation, procedures, reviewing records, discussing with consultants, reviewing labs, and/or managing patient. Discharge Plan Discharge Clinical Impression: Elevated bilirubin Patient Disposition: Home, Self-Care Instructions: Jaundice (ED) Additional Instructions: You were seen and evaluated in the emergency room. Your vital signs were normal and he did not have fever. ? Your blood work was elevated bilirubin and mildly elevated AST/ALT (liver function tests) The CT scan of your abdomen/pelvis demonstrating no acute pathology. Please follow-up with your primary care doctor in the next 5-7 days. As discussed with gastroenterology (Dr. Souza), he will be starting you on a new medication called her ursodiol to help with your symptoms. He also plans to order additional outpatient blood work for you. Please follow-up with your administrative support manager in colleague of Dr. Souza in the next 3-5 days for continued ongoing close outpatient follow-up. Please note the workup was not completed until you follow-up with your doctors. ? return to the emergency room if you develop any worsening symptoms including, but not limited to fever, abdominal pain, persistent nausea/vomiting, bloody stool or inability to eat/drink. Prescriptions: No Action simvastatin 40 mg tablet 40 mg PO BEDTIME Qty: 90 3RF metoprolol tartrate 50 mg tablet 50 mg PO BID Qty: 90 7RF omeprazole 20 mg capsule,delayed release(DR/EC) 20 mg PO DAILY 90 Days Qty: 90 3RF tranexamic acid 650 mg tablet 650 mg PO BID 5 Days Qty: 10 0RF amoxicillin-pot clavulanate 875-125 mg tablet 1 tab PO BID 10 Days Qty: 20 0RF cetirizine [Zyrtec] 10 mg tablet 10 mg PO DAILY PRN (DME) CPAP Machine/Device Device See Rx Instructions .Route Qty: 1 0RF Rx Instructions: As directed gemcitabine 200 mg recon soln 1,000 mg IV QWEEK fluticasone propion-salmeterol [Advair HFA] 115-21 mcg/actuation HFA aerosol inhaler 2 puff inhalation BID polyethylene glycol 3350 [Miralax] 17 gram powder in packet 17 g PO DAILY docusate sodium [Colace] 100 mg capsule 100 mg PO DAILY albuterol sulfate 90 mcg/actuation HFA aerosol inhaler 2 puff inhalation Q8H PRN (Reason: shortness of breath or wheezing) 30 Days Qty: 8.5 0RF ipratropium bromide 21 mcg (0.03 %) spray,non-aerosol 1 spray intranasal DAILY Eliquis 5 mg tablet 5 mg PO BID 90 Days Qty: 180 3RF Print Language: Yakut
[2024-02-19 12:40] VITALS: BP 152/84; PULSE 59; RESP 14; TEMP 36.5; O2SAT 96
[2024-02-19] MEDS: iohexoL 350 MG/ML 100 ML INFUS..BTL 85 ML IV (12:48)
[2024-02-19 12:54] LABS: Lipase 32 U/L (8-78)
[2024-02-19] MEDS: Lactated Ringers 1,000 ML 999 ML IV (14:29)
[2024-02-19 14:36] VITALS: BP 149/79; PULSE 62; RESP 14; TEMP 36.6; O2SAT 97
[2024-02-19 15:35] VITALS: BP 149/79; PULSE 62; RESP 14; TEMP 36.6; O2SAT 97
--- NOTE | 2024-02-20 00:57 | CONS_ITS ---
DATE OF SERVICE: 02/19/2024 REFERRING PHYSICIAN: Dr. Price REASON FOR CONSULTATION: Elevated liver function tests. HISTORY OF PRESENT ILLNESS: Patient is a pleasant 74-year-old man who came to the emergency room today with complaints of jaundice. He reports about 3 weeks of onset of jaundice with yellow eyes and mild yellow skin changes as well as dark urine. Associated with this, he has had pruritus and some fatigue. He traveled to [place] and was hospitalized over a 3 day period with similar symptoms. Initial imaging studies reportedly raised a question of a common bile duct stone. However, this was reportedly not seen on definitive MRI imaging. He denies any significant right upper quadrant pain or biliary colic. Some records are available and are reviewed. He was treated with amoxicillin approximately 3-1/2 to 4 weeks ago prior to the onset of his jaundice for a bronchitis and took this for 3 days, but felt better but then stopped. Interestingly, he had a similar presentation about 2 years ago with jaundice, which resolved without any specific intervention except that he was treated for COPD with steroids around the time his symptoms improved. He has no known history of underlying cirrhosis and denies any risk factors for hepatitis. Imaging prior to this has previously documented changes consistent with fatty liver. He denies significant alcohol intake or risk factors for hepatitis. There is no family history of liver disease. He has been treated for bladder cancer, but otherwise has no new medications. PAST MEDICAL HISTORY: 1. Atrial fibrillation. 2. Bladder cancer. 3. SVT with left bundle branch block. 4. Hyperlipidemia. 5. Asthma. 6. COPD. 7. Obstructive sleep apnea. 8. Gastroesophageal reflux disease. 9. Elevated BMI. 10. Small bowel obstruction. PAST SURGICAL HISTORY: Includes multiple orthopedic surgeries as well as cystoscopies for his bladder surgery. He has had a laparotomy. CURRENT MEDICATIONS: His current medication list is reviewed in the chart. ALLERGIES: MULTIPLE MEDICATION ALLERGIES ARE REVIEWED. FAMILY HISTORY: This was reviewed with the patient and is negative for liver disease. SOCIAL HISTORY: He formally smoked, but does not currently. REVIEW OF SYSTEMS: SKIN: No pruritus. HEENT: Negative. CARDIOPULMONARY: No shortness of breath or chest pain. GASTROINTESTINAL: As above. GENITOURINARY: Negative. NEUROPSYCHIATRIC: Negative. PHYSICAL EXAMINATION: GENERAL: Shows a pleasant male, lying comfortably on a stretcher. VITAL SIGNS: Stable. SKIN: Shows mild icterus. HEENT: Shows scleral icterus. NECK: Without lymphadenopathy or thyromegaly. LUNGS: Clear. HEART: Shows a regular rate and rhythm. S1, S2. No murmur. ABDOMEN: Soft without focal masses or tenderness. Bowel sounds are present. No organomegaly is noted. EXTREMITIES: Without edema. LABORATORY DATA: Reviewed as is his CT report. Partial laboratory results from his hospitalization in [place] are also available. IMPRESSION: Jaundice. This does not appear consistent with an acute biliary process based on the previous evaluation at the outside facility. We will review his MRI report, but I do not think this needs to be repeated. His current CT shows no biliary ductal dilation and no intrinsic liver lesions. The possibility of a drug-induced hepatitis is raised by his recent use of amoxicillin, which corresponds to his previous history of having had hepatitis as well that was non viral and possibly related to drugs. I would recommend checking autoimmune markers, viral markers, and metabolic studies. He can be discharged. I would not recommend treatment steroids at this time, but I do think it would benefit him to start on Ursodiol and a prescription for this is sent to his pharmacy. Antipyretics can be used as well for his symptoms, and I have recommended close followup as an outpatient. Thanks for asking me to see him. I will arrange f/u after discharge. MD DORETHA Shaver/ALDEN / [id number] MTDD
== END 2024-02-19 15:35 | disposition home or self-care (01) ==
PROVIDERS: Physician Assistant Medical; Emergency Provider Emergency Medicine; PCP Internal Medicine
DX: R17 Unspecified jaundice (principal); R39.89 Other symptoms and signs involving the genitourinary system; R53.83 Other fatigue; J44.9 Chronic obstructive pulmonary disease, unspecified; G47.33 Obstructive sleep apnea (adult) (pediatric); I48.0 Paroxysmal atrial fibrillation; Z85.51 Personal history of malignant neoplasm of bladder; Z79.01 Long term (current) use of anticoagulants; Z79.899 Other long term (current) drug therapy; Z99.89 Dependence on other enabling machines and devices
CPT/HCPCS: 36415; 74177; 80048; 80076; 81003; 83690; 85025; 85610; 85730; 99283; 99284; J7120; Q9967

== ENCOUNTER 2024-02-22 07:42 | Outpatient (AMB) | payer MEDICARE, SELFPAY ==
[2024-02-22 08:00] VITALS: BP 128/76; PULSE 60; O2SAT 98; BMI 32.3
--- NOTE | 2024-02-22 08:00 | A.OFFPC_ITS ---
Vital Signs 02/22/24 08:00 Height 5 ft 6 in Weight 200 lb BMI 32.3 BP 128/76 Blood Pressure Location Lt brachial Position Sitting Pulse 60 Pulse Source Pulse Oximeter Pulse Oximetry (%) 98 Oxygen Delivery Method Room Air Intake Visit Reasons: HDF [facility]-Bilirubin elevated Intake Note: Patient is here for hospital discharge follow up. Patient was discharged from [facility] on 02/11/24 Hot Water Heater Installer Required: No Allergies dronedarone [From Multaq] Allergy (Mild, Verified 02/22/24 08:00) Rash amoxicillin [From Augmentin] Allergy (Verified 02/22/24 08:00) Unknown clavulanic acid [From Augmentin] Allergy (Verified 02/22/24 08:00) Unknown Tobacco use date assessed: 12/04/23 Fall risk assessment: No Falls in past year Last assessed Fall Risk: 02/22/24 Dental Screening Dental Screen Date: 12/04/23 HPI HPI Comments History of Present Illness Details 74 y/o male patient who presents to the clinic for HDF. Pt was admitted at [facility] in [place] on 02/08/24 and discharged home on 02/11/24 for Elevated Bilirubin levels. He has an Appointment with [facility] services on 02/26/24. There is no clear Etiology for his Jaundice. He does have an extensive medical h/o chronic conditions. H/o Bladder CA and currently receives Chemo Infusion directly into his Bladder via Catheter insertions. Has COPD and Asthma that developed due to exposure to Agent Merrick during the services. Has A-fib and currently on Eliquis. [facility] Medical History (Updated 02/20/24 @ 00:01 by Cameron Stein) Bladder cancer Atrial fibrillation SVT (supraventricular tachycardia) LBBB (left bundle branch block) PVC (premature ventricular contraction) Hypercholesterolemia Asthma COPD (chronic obstructive pulmonary disease) Jaundice ANALY on CPAP Cough Personal history of nicotine dependence History of COVID-19 History of small bowel obstruction GERD (gastroesophageal reflux disease) Erectile dysfunction Obesity (BMI 30-39.9) Surgical History History of foot surgery (~2021) History of laparotomy (~2020) History of arthroplasty of right knee (~2020) History of meniscectomy of right knee (~2011) History of cataract surgery (~2021) History of appendectomy History of arthroplasty of left knee (~2020) History of meniscectomy of left knee (~2019) History of bladder surgery Hx of transurethral destruction of bladder lesion Family History Father Lung cancer Mother History of breast cancer Sister Multiple myeloma Other Cough Social History Household Members: Spouse Housing: House Are you a primary health care social worker to a significant other at home: No Do you presently have visiting nurse or other home services: No Alcohol intake: former Patient Tobacco Use Status: Former Tobacco user Tobacco use type: Cigarette Years Smoked: (former smoker - onset 14yo, 1ppd x 46yrs, 45pyh, quit 2009) e-Cigarette/Vaping Use: Never Used Second Hand Smoke Exposure: No Advance Directives Date on File: 02/14/21 service: Yes ( [employer] - served in [facility]) Current occupational status: retired Current occupational exposures/hazards: Yes (was exposed to Agent Merrick while serving in [employer]) Cognitive needs: No Hearing needs: Yes (hearing aide) Vision needs: No Questionnaire Thrive Questionnaire Date Thrive assessed: 12/04/23 AUDIT C Alcohol Use Questionnaire (AUDIT-C) 1. How often do you have a drink containing alcohol?: Never Total Score: 0 Score Reviewed/Action Taken: No PARIS-7 AMB Questionnaire PARIS-7 Date PARIS - 7 assessed: 12/04/23 Source: Developed by Drs. Darrian Watson, Megan Richardson, Alexandru Griffiths and colleagues, with an educational aydin from [employer]. Review of Systems Const All systems reviewed & are unremarkable except as noted in HPI and below Physical exam (Primary Care) Vital Signs: Last Vital Signs Pulse 60 02/22/24 08:00 BP 128/76 02/22/24 08:00 Pulse Ox 98 02/22/24 08:00 Oxygen Delivery Method Room Air 02/22/24 08:00 BMI result Body Mass Index 32.3 Tobacco/Smoking Status: Tobacco use Status Tobacco use date assessed 12/04/23 02/22/24 08:00 Patient Tobacco Use Status Former Tobacco user 02/22/24 08:00 Tobacco use type Cigarette 02/22/24 08:00 e-Cigarette/Vaping Use Never Used 02/22/24 08:00 Thrive Assessment: Date of Thrive Assessment Date Thrive assessed 12/04/23 02/22/24 08:00 Const General: cooperative and no acute distress Nutritional Appearance: obese Orientation/consciousness: patient oriented x3 HENMT Head: Yes normocephalic Resp Effort & Inspection: normal respiratory effort Auscultation: clear to auscultation bilaterally, no crackles, no rales, no rhonchi and no wheezes Cardio Heart sounds: S1 normal heart sound present and S2 normal heart sound present Neuro General: patient oriented x3, gait normal and moves all extremities Psych Speech and movement: Normal speech and movement present Vital Signs: Last Vital Signs Pulse 60 02/22/24 08:00 BP 128/76 02/22/24 08:00 Pulse Ox 98 02/22/24 08:00 Oxygen Delivery Method Room Air 02/22/24 08:00 BMI result Body Mass Index 32.3 Const General: cooperative and no acute distress Nutritional Appearance: obese Orientation/consciousness: patient oriented x3 HEENT Head: Yes normocephalic Resp Effort & Inspection: normal respiratory effort Auscultation: clear to auscultation bilaterally, no crackles, no rales, no rhon chi and no wheezes Cardio Heart sounds: S1 normal heart sound present and S2 normal heart sound present Skin Other: Some mild Jaundice seen in the eyes and face Neuro General: patient oriented x3, gait normal and moves all extremities Psych Speech and movement: Normal speech and movement present Assessment and Plan Assessment & Plan (1) Jaundice: Comment: Jaundice has definitely decreased in intensity, patient is being followed by Dr. hKan. Code(s): R17 - Unspecified jaundice (2) Bilirubinemia: Code(s): E80.6 - Other disorders of bilirubin metabolism Plan: F/U with GI Coding Level of Care Code Est Pt Level 4 (78503) Diagnoses Jaundice R17 Bilirubinemia E80.6 Time Spent (min) 20 Comment Spent reviewing hospital notes and patient education
== END 2024-02-22 09:34 | disposition home or self-care (01) ==
PROVIDERS: PCP Internal Medicine; Visit Provider Nurse Practitioner Family
DX: R17 Unspecified jaundice (principal); E80.6 Other disorders of bilirubin metabolism
CPT/HCPCS: 99214

== ENCOUNTER 2024-02-22 08:55 | Outpatient (REF) | payer MEDICARE, SELFPAY ==
[2024-02-22 09:20] LABS: Hematocrit 45.2 % (42.0-52.0); Hemoglobin 15.3 g/dl (14.0-18.0); Mean Corpuscular HGB Conc 33.8 g/dl (31.0-36.0); Mean Corpuscular Hemoglobin 30.6 pg (27.0-33.0); Mean Corpuscular Volume 90.4 fL (80.0-98.0); Mean Platelet Volume 9.7 fL (9.4-12.4); Platelet Count 308 X10*3/uL (160-400); Red Cell Distribution Width 13.9 % (11.0-16.0); White Blood Count 5.7 X10*3/uL (4.8-10.8)
[2024-02-22 09:25] LABS: INTERNATIONAL NORM RATIO 1.1 (0.9-1.1); Prothrombin Time 12.9 SEC (11.1-13.3)
[2024-02-22 09:56] LABS: Alanine Aminotransferase 77 U/L (0-40); Alkaline Phosphatase 141 U/L (39-117); Aspartate Amino Transferase 52 U/L (5-37); Bilirubin Direct 3.4 mg/dL (0.0-0.5); Bilirubin Total 4.7 mg/dL (0.0-1.0); Iron 127 mcg/dL (45-160); Percent Iron Saturation 44 % (15-50); Total Iron Binding Capacity 291 mcg/dL (228-428); Total Protein 7.7 g/dL (6.5-8.0); Unsaturated Iron Binding 164 ug/dL
[2024-02-22 10:11] LABS: HBS Num1 0.23 mIU/mL (0-7.99); HBc Num1 0.21 S/CO (0.00-0.79); Hepatitis A Antibody IgM 0.15 Index (0-0.79); Hepatitis B Core Antibody Nonreactive (Nonreactive); Hepatitis B Surface Antigen Negative (Negative); ~HepC Num1 0.13 S/CO (0.00-0.79); ~Hepatitis A Antibody IgM Nonreactive (Nonreactive); ~Hepatitis B Surface Antibody NONREACTIVE (Nonreactive); ~Hepatitis C Antibody Nonreactive (Nonreactive)
[2024-02-22 10:14] LABS: Ferritin 366 ng/mL (20-250)
[2024-02-25 11:43] LABS: Anti Nuclear Antibody Screen NEGATIVE (NEGATIVE)
[2024-02-26 13:03] LABS: Mitochondrial Antibodies NEGATIVE (NEGATIVE)
[2024-02-28 12:33] LABS: Smooth Muscle Antibody <20 U (<20)
== END 2024-02-22 08:56 | disposition home or self-care (01) ==
LOC: HO.LAB 08:55
PROVIDERS: Internal Medicine; PCP Internal Medicine; Visit Provider Internal Medicine Gastroenterology
DX: R79.89 Other specified abnormal findings of blood chemistry (principal); Z51.81 Encounter for therapeutic drug level monitoring
CPT/HCPCS: 36415; 80076; 82728; 83540; 85027; 85610; 86015; 86038; 86381; 86704; 86706; 86709; 86803; 87340

== ENCOUNTER 2024-02-29 10:16 | Outpatient (REF) | payer MEDICARE, SELFPAY ==
[2024-02-29 10:29] LABS: MANUAL DIFF FLAG NO
[2024-02-29 10:39] LABS: Basophils Absolute Auto 0.1 X10*3/uL (0.0-0.2); Basophils Percent Auto 0.8 % (0-2); Eosinophils Absolute Auto 0.1 X10*3/uL (0.0-0.4); Eosinophils Percent Auto 1.8 % (0-4); Hematocrit 45.1 % (42.0-52.0); Hemoglobin 15.3 g/dl (14.0-18.0); Imm Gran Abs Auto 0.03 X10*3/uL (0.00-0.03); Imm Gran Pct Auto 0.5 % (0.0-0.4); Lymphocytes Absolute Auto 1.6 X10*3/uL (1.2-4.9); Lymphocytes Percent Auto 24.3 % (20-40); Mean Corpuscular HGB Conc 33.9 g/dl (31.0-36.0); Mean Corpuscular Hemoglobin 30.5 pg (27.0-33.0); Mean Corpuscular Volume 89.8 fL (80.0-98.0); Mean Platelet Volume 9.9 fL (9.4-12.4); Monocytes Absolute Auto 0.7 X10*3/uL (0.1-1.2); Monocytes Percent Auto 10.8 % (2-11); Neutrophils Percent Auto 61.8 % (45-73); Platelet Count 234 X10*3/uL (160-400); Red Blood Count 5.02 X10*6/uL (4.60-5.80); White Blood Count 6.5 X10*3/uL (4.8-10.8)
[2024-02-29 10:41] LABS: Ammonia 28 umol/L (13-55)
[2024-02-29 11:13] LABS: Alanine Aminotransferase 87 U/L (0-40); Albumin Level 3.8 g/dL (3.5-5.0); Alkaline Phosphatase 111 U/L (39-117); Anion Gap 11 (12-20); Aspartate Amino Transferase 58 U/L (5-37); Bilirubin Direct 1.6 mg/dL (0.0-0.5); Bilirubin Total 2.5 mg/dL (0.0-1.0); Blood Urea Nitrogen 15 mg/dL (9-16); Calcium 10.1 mg/dL (8.4-10.2); Carbon Dioxide 30 mmol/L (22-29); Chloride 104 mmol/L (96-108); Estimated Glomerular Filt Rate > 60; Glucose Random 98 mg/dL (60-115); Potassium 4.6 mmol/L (3.3-5.1); Sodium 140 mmol/L (135-145); Total Protein 7.4 g/dL (6.5-8.0)
== END 2024-02-29 10:17 | disposition home or self-care (01) ==
LOC: HO.LAB 10:16
PROVIDERS: PCP Internal Medicine; Visit Provider Internal Medicine
DX: R19.7 Diarrhea, unspecified (principal)
CPT/HCPCS: 36415; 80048; 80076; 82140; 85025; 85730

== ENCOUNTER 2024-03-06 08:03 | Outpatient (AMB) | payer MEDICARE, SELFPAY ==
[2024-03-06 08:05] VITALS: BP 116/78; PULSE 58; TEMP 36.4; O2SAT 98; BMI 32.3
--- NOTE | 2024-03-06 08:05 | AM.OFFWIN_ITS ---
Intake Vital Signs 03/06/24 08:05 Height 5 ft 6 in Weight 200 lb BMI 32.3 BP 116/78 Blood Pressure Location Lt brachial Position Sitting Pulse 58 Pulse Source Pulse Oximeter Temp 97.6 F Temp Source Oral Pulse Oximetry (%) 98 Oxygen Delivery Method Room Air Intake Visit Reasons: EP Dizzy, lightheaded/vertigo Intake Note: pt c/o dizziness and lightheaded. Started a couple weeks ago Patient Tobacco Use Status: Former Tobacco user Allergies dronedarone [From Multaq] Allergy (Mild, Verified 03/06/24 08:36) Rash amoxicillin [From Augmentin] Allergy (Verified 03/06/24 08:36) liver failure clavulanic acid [From Augmentin] Allergy (Verified 03/06/24 08:36) liver failure Do you need a note to return to daycare/school/sports/work: No HPI HPI Comments History of Present Illness Details Patient is a 74-year-old male complaining of dizziness lightheadedness and vertigo that started 2 weeks ago. He also states he has some head congestion and sinus pain and feels like there is pressure behind his eyes. He is developing a little bit of a cough as well but he has allergies. He denies any fevers or shortness of breath. [facility] Medical History (Updated 03/06/24 @ 08:40 by Yudy Florence PA-C) Bladder cancer Atrial fibrillation SVT (supraventricular tachycardia) LBBB (left bundle branch block) PVC (premature ventricular contraction) Hypercholesterolemia Asthma COPD (chronic obstructive pulmonary disease) Jaundice ANALY on CPAP Cough Personal history of nicotine dependence History of COVID-19 History of small bowel obstruction GERD (gastroesophageal reflux disease) Erectile dysfunction Obesity (BMI 30-39.9) Surgical History History of foot surgery (~2021) History of laparotomy (~2020) History of arthroplasty of right knee (~2020) History of meniscectomy of right knee (~2011) History of cataract surgery (~2020) History of appendectomy History of arthroplasty of left knee (~2019) History of meniscectomy of left knee (~2018) History of bladder surgery Hx of transurethral destruction of bladder lesion Family History Father Lung cancer Mother History of breast cancer Sister Multiple myeloma Other Cough Social History Household Members: Spouse Housing: House Are you a primary social worker palliative care to a significant other at home: No Do you presently have visiting nurse or other home services: No Alcohol intake: former Patient Tobacco Use Status: Former Tobacco user Tobacco use type: Cigarette Years Smoked: (former smoker - onset 14yo, 1ppd x 46yrs, 45pyh, quit 2009) e-Cigarette/Vaping Use: Never Used Second Hand Smoke Exposure: No Advance Directives Date on File: 02/14/21 service: Yes ([employer] - served in [employer]) Current occupational status: retired Current occupational exposures/hazards: Yes (was exposed to Agent [place] while serving in [employer]) Cognitive needs: No Hearing needs: Yes (hearing aide) Vision needs: No Review of Systems Const All systems reviewed & are unremarkable except as noted in HPI and below Physical Exam Vital Signs: Last Vital Signs Temp 97.6 F 03/06/24 08:05 Pulse 58 03/06/24 08:05 BP 116/78 03/06/24 08:05 Pulse Ox 98 03/06/24 08:05 Oxygen Delivery Method Room Air 03/06/24 08:05 BMI result Body Mass Index 32.3 Const General: cooperative, healthy appearing, comfortable and no acute distress Orientation/consciousness: patient oriented x3 Limitations: no limitations HEENT Head: Yes normal to inspection Ears: hearing grossly normal bilaterally, external ears normal and TM's normal bilaterally General nose exam: Normal external nose present, Normal nares present and No nasal discharge present Face and sinus: Yes normal facial exam and Yes sinuses nontender Mouth: Normal oral and palatal mucosa present and moist mucous membranes Throat: Yes tonsils normal, Yes uvula midline and Yes posterior oropharynx abnormal (Erythema) Eyes General: appearance normal, both eyes and all related structures Neck Neck: Yes normal visual inspection Resp Effort & Inspection: normal respiratory effort, able to speak in complete sentences, no respiratory distress, not tachypneic, no tripod positioning and no use of accessory muscles Skin General skin exam: no rashes or lesions noted Neuro General: patient oriented x3 Extrem General: Yes normal to inspection and Yes no clubbing, cyanosis or edema Assessment & Plan Assessment & Plan (1) Sinusitis: Code(s): J32.9 - Chronic sinusitis, unspecified Qualifiers: Sinusitis location: unspecified location Chronicity: acute Recurrence: non-recurrent Qualified Code(s): J01.90 - Acute sinusitis, unspecified Plan: We will treat with prednisone Plan See above Medications: New prednisone 40 mg (2 x 20 mg) PO DAILY 10 tabs 0RF Coding Level of Care Code Est Pt Level 3 (42570) Diagnoses Acute non-recurrent sinusitis, unspecified location J01.90 Sinusitis location: unspecified location Chronicity: acute Recurrence: non-recurrent
== END 2024-03-06 08:41 | disposition home or self-care (01) ==
PROVIDERS: PCP Internal Medicine; Visit Provider Physician Assistant
DX: J01.90 Acute sinusitis, unspecified (principal)
CPT/HCPCS: 99213

== ENCOUNTER 2024-03-10 13:27 | Outpatient (REF) | payer MEDICARE, SELFPAY ==
[2024-03-10 14:47] LABS: Blood Urea Nitrogen 15 mg/dL (9-16); Estimated Glomerular Filt Rate > 60
[2024-03-10 14:48] LABS: Alanine Aminotransferase 71 U/L (0-40); Albumin Level 4.1 g/dL (3.5-5.0); Alkaline Phosphatase 90 U/L (39-117); Aspartate Amino Transferase 37 U/L (5-37); Bilirubin Direct 0.8 mg/dL (0.0-0.5); Bilirubin Total 1.3 mg/dL (0.0-1.0); Total Protein 7.7 g/dL (6.5-8.0)
== END 2024-03-10 13:28 | disposition home or self-care (01) ==
LOC: HO.LAB 13:27
PROVIDERS: Urology; PCP Internal Medicine; Visit Provider Internal Medicine
DX: R94.5 Abnormal results of liver function studies (principal); C67.9 Malignant neoplasm of bladder, unspecified
CPT/HCPCS: 36415; 80076; 82565; 84520

== ENCOUNTER 2024-03-14 08:20 | Outpatient (AMB) | payer MEDICARE, SELFPAY ==
--- NOTE | 2024-03-14 09:12 | MHC.OFFVIS ---
Intake Visit Reasons: cysto/US Intake Note: Patient is Present for Cystoscopy Urology Med: None Antibiotic Allergy: Penicillins, Amoxicillin Blood Thinner: Eliquis URO- G Disposable Cystoscope lot: exp: Zoo Veterinarian Required: No Allergies dronedarone [From Multaq] Allergy (Mild, Verified 03/14/24 09:12) Rash amoxicillin [From Augmentin] Allergy (Verified 03/14/24 09:12) liver failure clavulanic acid [From Augmentin] Allergy (Verified 03/14/24 09:12) liver failure Penicillins Adverse Reaction (Intermediate, Verified 03/14/24 09:12) Unknown HPI Comments Details: Volodymyr is a very pleasant male. He is a patient of Dr. Jackson. He is seen for the following urologic conditions - bladder cancer - urinary tract infection Cystoscopy today - no new lesions Cytology sent Plan cysto beginning of May with three-week boost Discussed with timing of boost therapy every 6 months with check cysto every [place] -Dome patch had been fulgurated Current Cycle induction, 12/06 3 week boost gemcitabine/docetaxel Bladder Cancer low-grade superficial recurrent T1 2019, 07/05 06/06 CIS on biopsy [place] [facility] - Dr Hugo - [facility] Initial diagnosis superficial bladder cancer, recurrent Interventions - TURBT [place] 2019, [place] 06/2021 - 06/06 TURBT CIS with MMC treatment - 03/07 fulguration bladder dome with 3 week [facility] Cytarabine Adjuvant therapy - BCG induction x2, completed induction Aug 2021 - Gemcitabine - 03/07 2 week [facility] with Cytarabine boost Check cystoscopy - 01/03 BCG changes with mucosal erythema patches - 11/04 no evidence of recurrent disease - 04/06 posterior wall patch - TURBT CIS - 10/05 NAD, 01/05 bladder dome mucosal changes Cytology - 11/04 rare atypical, 04/06 suspicious, 10/05 rare atypical, 06/07 atypical Risk factors - 40 year pack per day smoking history - Agent Callahan exposure Therapeutic plan - three-month follow-up cysto Urinary tract infection 08/07 E coli ESBL Trouble with recurrent urinary tract infections Culture shows ESBL E coli resistant to most oral antibiotics PFSH Medical History Bladder cancer Atrial fibrillation SVT (supraventricular tachycardia) LBBB (left bundle branch block) PVC (premature ventricular contraction) Hypercholesterolemia Asthma COPD (chronic obstructive pulmonary disease) Jaundice ANALY on CPAP Cough Personal history of nicotine dependence History of COVID-19 History of small bowel obstruction GERD (gastroesophageal reflux disease) Erectile dysfunction Obesity (BMI 30-39.9) Surgical History History of foot surgery (~2021) History of laparotomy (~2020) History of arthroplasty of right knee (~2020) History of meniscectomy of right knee (~2011) History of cataract surgery (~2020) History of appendectomy History of arthroplasty of left knee (~2019) History of meniscectomy of left knee (~2018) History of bladder surgery Hx of transurethral destruction of bladder lesion Family History Father Lung cancer Mother History of breast cancer Sister Multiple myeloma Other Cough Social History Household Members: Spouse Housing: House Are you a primary certified social workers in health care to a significant other at home: No Do you presently have visiting nurse or other home services: No Alcohol intake: former Patient Tobacco Use Status: Former Tobacco user Tobacco use type: Cigarette Years Smoked: (former smoker - onset 14yo, 1ppd x 46yrs, 45pyh, quit 2009) e-Cigarette/Vaping Use: Never Used Second Hand Smoke Exposure: No Advance Directives Date on File: 02/14/21 service: Yes ( [employer] - served in [employer]) Current occupational status: retired Current occupational exposures/hazards: Yes (was exposed to Agent Callahan while serving in [employer]) Cognitive needs: No Hearing needs: Yes (hearing aide) Vision needs: No Review of Systems Const Denies chills and Denies fever(s) Card Reports no additional complaints and Denies syncope Resp Denies cough GI Denies abdominal pain and Denies heartburn Reports as per HPI and Denies change in libido Neuro Denies syncope Psych Denies change in libido Endo Denies change in libido Physical Exam Const General: cooperative, healthy appearing, comfortable and no acute distress Orientation/consciousness: patient oriented x3 HEENT Face and sinus: Yes normal facial exam Mouth: moist mucous membranes Neck Neck: Yes normal visual inspection, Yes full ROM and Yes trachea midline Chest Chest palpation & inspection: normal inspection of the chest Resp Effort & Inspection: normal respiratory effort, able to speak in complete sentences and no respiratory distress GI Inspection: Yes normal to inspection Back/Spine/Pelvis Cervical Spine: normal cervical lordosis Thoracic/Lumbar Spine: thoracic and lumbar spine normal to inspection Skin General skin exam: no rashes or lesions noted Neuro General: patient oriented x3, gait normal, tone normal and moves all extremities Extrem General: Yes normal to inspection and Yes capillary refill normal Office Procedures Cystoscopy Consent Discussed risk and benefit or proposed procedure with the patient. Information consent for procedure given to the patient. Discussed technical aspects, risks, benefits and alternatives in full. Addressed all of the patient's questions and concerns regarding the procedure. The patient demonstrated knowledge and understanding. They wish to proceed with this procedure. Preparation The patient was prepped in the usual manner. A operational test mechanic was present and in the room. Genitalia was prepped with betadine solution in a sterile manner. Lidocaine Jelly 2% was placed into the urethra and 16Fr flexible Olympus cystoscope was inserted into the meatus after adequate lubrication. Procedure Cystoscopy performed using a disposable Urovue digital 16 Tajik cystoscope. Meatus circumcised Urethra anterior and posterior urethra normal Prostatic Urethra TURP defect Bladder examination with retroflexion of cystoscope Bladder Orifices normal shape and position Bladder Capacity medium Trabeculations grade 2/3 Cellule Formation yes Diverticulum Formation - Mucosal Erythema dome changes from prior procedure Bladder Tumor multiple prior resections with scarring [id number] DISPOSABLE SCOPE URO-G FLEXIBLE SCOPE Procedure code (CPT) selection complete Office Meds lidocaine HCl 2 % mucosal jelly in applicator Performing Provider: Darrin Alicea MD Performing Location: [facility] Administered by: Evan Devine LPN on 03/14/24 09:23 Dose Route Admin Location Dispensed Lot Number Expiration Date [facility] End Touching Machine Operator 10 mL intra-urethral 10 mL nitrofurantoin monohydrate/macrocrystals 100 mg capsule Performing Provider: Darrin Alicea MD Performing Location: [facility] Administered by: Evan Devine LPN on 03/14/24 09:23 Dose Route Admin Location Dispensed Lot Number Expiration Date [facility] End Touching Machine Operator 100 mg PO 1 cap naproxen 500 mg tablet Performing Provider: Darrin Alicea MD Performing Location: [facility] Administered by: Evan Devine LPN on 03/14/24 09:23 Dose Route Admin Location Dispensed Lot Number Expiration Date [facility] End Touching Machine Operator 500 mg PO 1 tab Results AMB Urinalysis, Automated UA Leukoctes 0 Candice/uL Last Edit by Yoko Dumont, A on 03/14/24 09:25 UA Nitrite Negative Last Edit by Yoko Dumont, A on 03/14/24 09:25 UA Urobilinogen 0.2 mg/dL Last Edit by Yoko Dumont, A on 03/14/24 09:25 UA Protein 0 mg/dL Last Edit by Yoko Dumont, A on 03/14/24 09:25 UA pH 6.0 Last Edit by Yoko Dumont, A on 03/14/24 09:25 UA Blood 0 Clive/uL Last Edit by Yoko Dumont, A on 03/14/24 09:25 UA Specific [place] 1.020 Last Edit by Yoko Dumont A on 03/14/24 09:25 UA Ketone Negative Last Edit by Yoko Dumont, A on 03/14/24 09:25 UA Bilirubin 0 mg/dL Last Edit by Yoko Dumont A on 03/14/24 09:25 UA Glucose 0 mg/dL Last Edit by Yoko Dumont A on 03/14/24 09:25 Results Reviewed Results Reviewed: Laboratory Last Values Urine pH (Auto) 6.0 03/14/24 09:15 Specific [place] (Auto) 1.020 03/14/24 09:15 Urine Protein (Auto) 0 mg/dL 03/14/24 09:15 Glucose (UA)(Auto) 0 mg/dL 03/14/24 09:15 Urine Ketones (Auto) Negative 03/14/24 09:15 Urine Blood (Auto) 0 Clive/uL 03/14/24 09:15 Urine Nitrite (Auto) Negative 03/14/24 09:15 Urine Bilirubin (Auto) 0 mg/dL 03/14/24 09:15 Urine Urobilinogen (Auto) 0.2 mg/dL 03/14/24 09:15 Leukocyte Esterase (Auto) 0 Candice/uL 03/14/24 09:15 Assessment & Plan Assessment & Plan (1) Bladder cancer: Comment: TURBT 06/28 pTaLG, 06/29 Dr Mckeon pTaCorrieG, 05/2016 BCG, 06/04 [place] pT1LG, 07/05 [place] pTaLG BCG induction Fulguration and mitomycin-C May 2022 TURBT May 2022 CIS, bladder surgery 07/2023 Code(s): C67.9 - Malignant neoplasm of bladder, unspecified Category: Medical Plan Three-month follow-up cysto Orders: Orders AMB Urinalysis Automated Today Z13.9 - Encounter for screening, unspecified AMB Cystoscopy Today C67.9 - Malignant neoplasm of bladder, unspecified FISH Bladder Cancer Today C67.9 - Malignant neoplasm of bladder, unspecified Patient Instructions: Imaging studies, laboratory and physical exam results were discussed and reviewed in detail. No major barriers to patient understanding were identified. An opportunity to ask questions regarding the treatment plan was provided. All questions were answered. The patient expressed understanding and agreement with the above treatment plan. The patient is aware they should contact our office by phone for worsening of their current condition or the appearance of new urologic symptoms. Compliance is encouraged with any medications and followup testing that is ordered. It is a privilege to participate in the urologic care of your patient. If you have any questions or concerns regarding treatment for the above conditions, or other urologic issues, please do not hesitate to contact me. The office telephone contact is [phone]. This note is constructed using voice recognition software. While every effort has been made to ensure accuracy forge heater errors may have been included. Yours sincerely, Dr Darrin Alicea MD, MIN[facility] - Urology Providers of Expert, Compassionate Care for the Genitourinary System Coding Level of Care Code Est Pt Level 3 (45728) Diagnoses Bladder cancer C67.9 CPT Codes Cystoscopy - CPT: [id number] ([id number])
== END 2024-03-14 09:58 | disposition home or self-care (01) ==
PROVIDERS: PCP Internal Medicine; Visit Provider Urology
DX: C67.1 Malignant neoplasm of dome of bladder (principal); Z13.9 Encounter for screening, unspecified
CPT/HCPCS: 52000; 99213

== ENCOUNTER 2024-03-14 08:20 | Outpatient (REF) | payer MEDICARE, SELFPAY | END 2024-03-14 08:21 | disposition home or self-care (01) | LOC: HO.LAB 08:20 | PROVIDERS: PCP Internal Medicine; Visit Provider Urology | DX: C67.9 Malignant neoplasm of bladder, unspecified (principal); Z13.9 Encounter for screening, unspecified | CPT/HCPCS: 52000; 81003; 88121; 99212 ==

== ENCOUNTER 2024-03-28 08:25 | Outpatient (REF) | payer MEDICARE, SELFPAY ==
[2024-03-28 09:25] LABS: Alanine Aminotransferase 49 U/L (0-40); Albumin Level 3.9 g/dL (3.5-5.0); Alkaline Phosphatase 72 U/L (39-117); Aspartate Amino Transferase 28 U/L (5-37); Bilirubin Direct 0.5 mg/dL (0.0-0.5); Bilirubin Total 1.1 mg/dL (0.0-1.0)
== END 2024-03-28 08:26 | disposition home or self-care (01) ==
LOC: HO.LAB 08:25
PROVIDERS: PCP Internal Medicine; Visit Provider Internal Medicine
DX: R94.5 Abnormal results of liver function studies (principal)
CPT/HCPCS: 36415; 80076

== ENCOUNTER 2024-04-16 15:05 | Emergency (ER) | payer MEDICARE, SELFPAY ==
--- NOTE | ~2024-04-16 | XR_ITS ---
EXAMINATION: XR CHEST CLINICAL INFORMATION: Shortness of breath COMPARISON: 01/31/2024 TECHNIQUE: 2 views of the chest were obtained. FINDINGS: Small, subtle opacity at the left lung base may represent atelectasis or a small developing pneumonia. Stable cardiomediastinal silhouette. XR/XR chest 2V IMPRESSION: Small left basilar opacity may represent atelectasis or a small developing pneumonia. Electronically signed by: Karlo Whitaker MD 04/16/2024 04:52 PM EDT
[2024-04-16 15:49] VITALS: BP 132/79; PULSE 83; RESP 20; TEMP 37; O2SAT 91; BMI 32.4
--- NOTE | 2024-04-16 15:49 | ED_ITS ---
HPI - General Adult General Chief complaint: Dyspnea Stated complaint: Difficulty breathing, wheezy, hx pulmonary issues Time Seen by Provider: 04/16/24 16:16 Source: patient Mode of arrival: ambulatory Limitations: no limitations History of Present Illness ED Provider: zahida VELÁZQUEZ narrative: Patient is ex-smoker with history of COPD paroxysmal AFib no known coronary artery disease does have history of sleep apnea use CPAP at night been having increased shortness a breath and cough for last several days got worse in last 3 days seen at the urgent care clinic was given prednisone it home COVID testing was negative no chest pain no leg swelling no history of CHF was saturating 91% at room air on arrival Related Data Home Medications ?Medication ?Instructions ?Recorded ?Confirmed ipratropium bromide 21 mcg (0.03 1 spray intranasal DAILY 11/27/22 12/11/23 %) nasal spray docusate sodium 100 mg capsule 100 mg PO DAILY 12/04/23 12/11/23 (Colace) gemcitabine 200 mg intravenous 1,000 mg IV QWEEK 12/04/23 12/04/23 solution polyethylene glycol 3350 17 gram 17 g PO DAILY 12/04/23 12/11/23 oral powder packet (Miralax) diphenhydramine HCl 25 mg capsule 25 mg PO TID PRN 03/06/24 (Allergy (diphenhydramine)) fluticasone propionate 230 2 puff inhalation BID 03/06/24 mcg-salmeterol 21 mcg/actuation HFA inhaler (Advair HFA) Previous Rx's ?Medication ?Instructions ?Recorded CPAP (CPAP Machine/Device) #1 ea 02/14/22 simvastatin 40 mg tablet 40 mg PO BEDTIME #90 tabs 11/23/23 omeprazole 20 mg capsule,delayed 20 mg PO DAILY 90 days #90 caps 12/17/23 release albuterol sulfate 90 mcg/actuation 2 puff inhalation Q8H PRN 01/26/24 aerosol inhaler shortness of breath or wheezing 30 days #8.5 grams apixaban 5 mg tablet (Eliquis) 5 mg PO BID 90 days #180 tabs 03/03/24 metoprolol tartrate 50 mg tablet 50 mg PO BID #90 tabs 03/03/24 prednisone 20 mg tablet 40 mg (2 x 20 mg) PO DAILY #10 tabs 03/06/24 meclizine 25 mg tablet 25 mg PO BID PRN dizziness #20 tabs 03/14/24 benzonatate 200 mg capsule 200 mg PO TID PRN cough #30 caps 04/16/24 cefuroxime axetil 500 mg tablet 500 mg PO BID 7 days #14 tabs 04/16/24 doxycycline hyclate 100 mg tablet 100 mg PO BID #20 tabs 04/16/24 prednisone 20 mg tablet 40 mg (2 x 20 mg) PO DAILY #10 tabs 04/16/24 Allergies Allergy/AdvReac Type Severity Reaction Status Date / Time dronedarone [From Multaq] Allergy Mild Rash Verified 04/16/24 15:52 amoxicillin [From Augmentin] Allergy liver Verified 04/16/24 15:52 failure clavulanic acid Allergy liver Verified 04/16/24 15:52 [From Augmentin] failure Penicillins AdvReac Intermediate Unknown Verified 04/16/24 15:52 Review of Systems 2 Review of Systems: Yes all other systems are reviewed and are negative PMFSH Past Medical History Medical History Bladder cancer Atrial fibrillation SVT (supraventricular tachycardia) LBBB (left bundle branch block) PVC (premature ventricular contraction) Hypercholesterolemia Asthma COPD (chronic obstructive pulmonary disease) Jaundice ANALY on CPAP Cough Personal history of nicotine dependence History of COVID-19 History of small bowel obstruction GERD (gastroesophageal reflux disease) Erectile dysfunction Obesity (BMI 30-39.9) Surgical History History of foot surgery (~2021) History of laparotomy (~2020) History of arthroplasty of right knee (~2020) History of meniscectomy of right knee (~2011) History of cataract surgery (~2020) History of appendectomy History of arthroplasty of left knee (~2019) History of meniscectomy of left knee (~2019) History of bladder surgery Hx of transurethral destruction of bladder lesion Family History Family History Father Lung cancer Mother History of breast cancer Sister Multiple myeloma Other Cough Social History Social History Household Members: Spouse Housing: House Are you a primary care mgr to a significant other at home: No Do you presently have visiting nurse or other home services: No Alcohol intake: former Patient Tobacco Use Status: Former Tobacco user Tobacco use type: Cigarette Years Smoked: (former smoker - onset 14yo, 1ppd x 46yrs, 45pyh, quit 2009) e-Cigarette/Vaping Use: Never Used Second Hand Smoke Exposure: No Advance Directives: Yes Advance Directives on File: Yes Advance Directives Date on File: 02/14/21 service: Yes ([employer] - served in [facility]) Current occupational status: retired Current occupational exposures/hazards: Yes (was exposed to [employer] [place] while serving in [employer]) Cognitive needs: No Hearing needs: Yes (hearing aide) Vision needs: No Physical Exam ED Vital Signs: Vital Signs - 24 hr 04/16/24 15:49 04/16/24 16:27 04/16/24 16:41 Temperature 98.6 F Pulse Rate 83 80 81 Respiratory Rate 20 20 11 L Blood Pressure 132/79 134/83 Pulse Oximetry 91 L 93 Oxygen Delivery Method Room Air Room Air 04/16/24 18:00 04/16/24 19:50 04/16/24 19:51 Temperature 97.7 F 98.2 F 98.2 F Pulse Rate 100 93 93 Respiratory Rate 25 H 19 20 Blood Pressure 136/74 129/63 129/63 Pulse Oximetry 91 L 91 L 91 L Oxygen Delivery Method Room Air Room Air Room Air BMI result Body Mass Index 32.4 Appearance: Alert. Oriented X3. No acute distress. Eyes: No pallor or icterus ENT: Pharynx normal. Oral Mucosa moist Neck: Normal inspection. Neck supple. CVS: Normal heart rate and rhythm. Pulses normal. Respiratory: No respiratory distress. Equal air entry bilateral, will do prolonged expiration with occasional crackles Abdomen: Soft and nontender. Bowel sounds are present, no mass palpable, no CVA tenderness Skin: Skin warm and dry. Normal skin color. Normal skin turgor. Extremities: No lower extremity edema. No calf tenderness Neuro: Oriented X 3. No motor deficit. Course Course Course Narrative: This is a rapid medical exam performed by Quynh Rubi NP: Additional HPI, ROS, PE not included below will be deferred to primary provider. Patient is a 74-year-old male with history of asthma, COPD, and bladder CA presenting with complaint of worsening shortness of breath and cough for the past week. [facility] Temp of 99 last night. Tested negative for Covid last night. Plan; labs, CXR, viral serology Medications Administered Discontinued Medications Generic Name Dose Route Start Last Admin Trade Name Freq PRN Reason Stop Dose Admin Albuterol Sulfate 2.5 mg/ 0 mg 04/16/24 16:30 04/16/24 16:41 Albuterol/Ipratropium 3 ml INHALE 04/16/24 16:31 1 dose ONCE ONE Administration Doxycycline Monohydrate 100 mg 04/16/24 18:33 04/16/24 18:46 Doxycycline Monohydrate 100 Mg Capsule PO 04/16/24 18:34 100 mg ONCE ONE Administration Ceftriaxone Sodium 1 gm/ 50 mls @ 100 mls/hr 04/16/24 18:33 04/16/24 19:32 Sodium Chloride IV 04/16/24 19:02 Infused ONCE ONE Infusion Methylprednisolone Sodium Succinate 125 mg 04/16/24 16:30 04/16/24 17:25 Methylprednisolone Sod Succ 125 Mg/2 Ml Vial IVPUSH 04/16/24 16:31 125 mg ONCE ONE Administration Medical Decision Making Medical Decision Making [facility] Narrative: COPD/COVID/pneumonia patient's history of COPD responded to nebulizing treatment in the ER will discharge patient advised to follow with PCP Differential Diagnosis Differential Diagnoses: The differential diagnosis associated with the presentation includes Lab Data 04/16/24 16:05 04/16/24 16:05 Labs: Lab Results 04/16/24 Range/Units 16:05 WBC 16.6 H (4.8-10.8) X10*3/uL RBC 5.11 (4.60-5.80) X10*6/uL Hgb 15.8 (14.0-18.0) g/dl Hct 44.6 (42.0-52.0) % MCV 87.3 (80.0-98.0) fL MCH 30.9 (27.0-33.0) pg MCHC 35.4 (31.0-36.0) g/dl RDW 13.1 (11.0-16.0) % Plt Count 185 (160-400) X10*3/uL MPV 9.1 L (9.4-12.4) fL Immature Gran % (Auto) 0.4 (0.0-0.4) % Neut % (Auto) 75.9 H (45-73) % Lymph % (Auto) 13.4 L (20-40) % Barton % (Auto) 8.4 (2-11) % Eos % (Auto) 1.5 (0-4) % Baso % (Auto) 0.4 (0-2) % Lymph # (Auto) 2.2 (1.2-4.9) X10*3/uL Barton # (Auto) 1.4 H (0.1-1.2) X10*3/uL Eos # (Auto) 0.3 (0.0-0.4) X10*3/uL Baso # (Auto) 0.1 (0.0-0.2) X10*3/uL Abs Immat Gran (auto) 0.06 H (0.00-0.03) X10*3/uL Absolute Neuts (auto) 12.6 H (2.0-8.3) x10*3/uL Absolute Nucleated RBC 0.000 (0.0-0.012) X10*3/uL Nucleated RBC % (auto) 0.0 (0.0-0.2) /100WBC PT 15.6 H (10.9-12.4) SEC INR 1.3 H (0.9-1.1) Sodium 137 (135-145) mmol/L Potassium 3.7 (3.3-5.1) mmol/L Chloride 104 (96-108) mmol/L Carbon Dioxide 24 (22-29) mmol/L Anion Gap 13 (12-20) BUN 9 (9-16) mg/dL Creatinine 0.83 (0.5-1.4) mg/dL Estim Creat Clear Calc 80.0 Estimated GFR > 60 Random Glucose 104 (60-115) mg/dL Calcium 9.2 D (8.4-10.2) mg/dL Total Bilirubin 1.2 H (0.0-1.0) mg/dL AST 15 (5-37) U/L ALT 25 (0-40) U/L Alkaline Phosphatase 65 (39-117) U/L Troponin I High Sens < 2.7 (<3.5-35.0) ng/L B-Natriuretic Peptide 75 (<100) pg/mL Total Protein 7.4 (6.5-8.0) g/dL Albumin 3.9 (3.5-5.0) g/dL Influenza Type A (PCR) NEGATIVE (Negative) Influenza Type B (PCR) NEGATIVE (Negative) RSV RNA Qual (PCR) NEGATIVE (Negative) SARS-CoV-2 RNA (RT-PCR) NEGATIVE (Negative) Discharge Plan Discharge Clinical Impression: COPD (chronic obstructive pulmonary disease) with acute bronchitis Patient Disposition: Home, Self-Care Instructions: Acute Bronchitis (ED), COPD (Chronic Obstructive Pulmonary Disease) (ED) Additional Instructions: Continue to use your inhaler as provided by your lung specialist Antibiotic as prescribed Cough drops as prescribed Continue prednisone for now Follow with compliance auditor Prescriptions: New benzonatate 200 mg capsule 200 mg PO TID PRN (Reason: cough) Qty: 30 0RF cefuroxime axetil 500 mg tablet 500 mg PO BID 7 Days Qty: 14 0RF doxycycline hyclate 100 mg tablet 100 mg PO BID Qty: 20 0RF prednisone 20 mg tablet 40 mg PO DAILY Qty: 10 0RF No Action simvastatin 40 mg tablet 40 mg PO BEDTIME Qty: 90 3RF omeprazole 20 mg capsule,delayed release(DR/EC) 20 mg PO DAILY 90 Days Qty: 90 3RF metoprolol tartrate 50 mg tablet 50 mg PO BID Qty: 90 3RF Eliquis 5 mg tablet 5 mg PO BID 90 Days Qty: 180 3RF meclizine 25 mg tablet 25 mg PO BID PRN (Reason: dizziness) Qty: 20 0RF fluticasone propion-salmeterol [Advair HFA] 230-21 mcg/actuation HFA aerosol inhaler 2 puff inhalation BID diphenhydramine HCl [Allergy (diphenhydramine)] 25 mg capsule 25 mg PO TID PRN prednisone 20 mg tablet 40 mg PO DAILY Qty: 10 0RF (DME) CPAP Machine/Device Device See Rx Instructions .Route Qty: 1 0RF Rx Instructions: As directed gemcitabine 200 mg recon soln 1,000 mg IV QWEEK polyethylene glycol 3350 [Miralax] 17 gram powder in packet 17 g PO DAILY docusate sodium [Colace] 100 mg capsule 100 mg PO DAILY albuterol sulfate 90 mcg/actuation HFA aerosol inhaler 2 puff inhalation Q8H PRN (Reason: shortness of breath or wheezing) 30 Days Qty: 8.5 0RF ipratropium bromide 21 mcg (0.03 %) spray,non-aerosol 1 spray intranasal DAILY Interventions: ED Discharge Assessment Last Done: 04/16/24 19:51 Discharge Date/Time: 04/16/24 19:54 Print Language: Ugandan
--- NOTE | 2024-04-16 15:51 | ECG_ITS ---
Test Reason : SOB Blood Pressure : / mmHG Vent. Rate : 081 BPM Atrial Rate : 081 BPM P-R Int : 154 ms QRS Dur : 156 ms QT Int : 412 ms P-R-T Axes : 036 -39 107 degrees QTc Int : 478 ms Normal sinus rhythm Left axis deviation Left bundle branch block Abnormal ECG When compared with ECG of 19-JUN-2022 18:31, No significant change was found Referred By: Chioma Rubi Electronically Signed By:JENNY ALEXANDER
[2024-04-16 16:12] LABS: MANUAL DIFF FLAG NO
[2024-04-16 16:22] LABS: Basophils Absolute Auto 0.1 X10*3/uL (0.0-0.2); Basophils Percent Auto 0.4 % (0-2); Eosinophils Absolute Auto 0.3 X10*3/uL (0.0-0.4); Eosinophils Percent Auto 1.5 % (0-4); Hematocrit 44.6 % (42.0-52.0); Hemoglobin 15.8 g/dl (14.0-18.0); Imm Gran Abs Auto 0.06 X10*3/uL (0.00-0.03); Imm Gran Pct Auto 0.4 % (0.0-0.4); Lymphocytes Absolute Auto 2.2 X10*3/uL (1.2-4.9); Lymphocytes Percent Auto 13.4 % (20-40); Mean Corpuscular HGB Conc 35.4 g/dl (31.0-36.0); Mean Corpuscular Hemoglobin 30.9 pg (27.0-33.0); Mean Corpuscular Volume 87.3 fL (80.0-98.0); Mean Platelet Volume 9.1 fL (9.4-12.4); Monocytes Absolute Auto 1.4 X10*3/uL (0.1-1.2); Monocytes Percent Auto 8.4 % (2-11); Neutrophils Absolute Auto 12.6 x10*3/uL (2.0-8.3); Neutrophils Percent Auto 75.9 % (45-73); Platelet Count 185 X10*3/uL (160-400); Red Blood Count 5.11 X10*6/uL (4.60-5.80); Red Cell Distribution Width 13.1 % (11.0-16.0); White Blood Count 16.6 X10*3/uL (4.8-10.8)
[2024-04-16 16:23] LABS: INTERNATIONAL NORM RATIO 1.3 (0.9-1.1); Prothrombin Time 15.6 SEC (10.9-12.4)
[2024-04-16 16:27] VITALS: BP 134/83; PULSE 80; RESP 20; O2SAT 93
[2024-04-16 16:34] LABS: Alanine Aminotransferase 25 U/L (0-40); Albumin Level 3.9 g/dL (3.5-5.0); Alkaline Phosphatase 65 U/L (39-117); Anion Gap 13 (12-20); Aspartate Amino Transferase 15 U/L (5-37); Bilirubin Total 1.2 mg/dL (0.0-1.0); Blood Urea Nitrogen 9 mg/dL (9-16); Calcium 9.2 mg/dL (8.4-10.2); Carbon Dioxide 24 mmol/L (22-29); Chloride 104 mmol/L (96-108); Estimated Glomerular Filt Rate > 60; Glucose Random 104 mg/dL (60-115); Potassium 3.7 mmol/L (3.3-5.1); Sodium 137 mmol/L (135-145); Total Protein 7.4 g/dL (6.5-8.0)
[2024-04-16 16:38] LABS: B Type Natriuretic Peptide 75 pg/mL (<100)
[2024-04-16 16:41] VITALS: PULSE 81; RESP 11; O2SAT 94
[2024-04-16] MEDS: Albuterol Sulfate 2.5 MG, Albuterol/Iprat 2.5/0.5MG 3 ML 3 ML INHALE (16:41)
[2024-04-16 16:45] LABS: Troponin-I High Sensitivity < 2.7 ng/L (<3.5-35.0)
[2024-04-16 16:56] LABS: Influenza A PCR NEGATIVE (Negative); Influenza B PCR NEGATIVE (Negative); Resp Syncy Virus RNA Qual PCR NEGATIVE (Negative); SARS COV2 PCR INHOUSE NEGATIVE (Negative)
[2024-04-16] MEDS: methylPREDNISolone Sod Succ 125 MG/2 ML VIAL IVPUSH (17:25)
[2024-04-16 18:00] VITALS: BP 136/74; PULSE 100; RESP 25; TEMP 36.5; O2SAT 91
[2024-04-16] MEDS: cefTRIAXone sodium 1 GM in 0.9 % Sodium Chloride 50 ML IV (18:44)
[2024-04-16] MEDS: Doxycycline Monohydrate 100 MG CAPSULE PO (18:46)
--- NOTE | 2024-04-16 19:15 | PC.NURSE ---
This RN assumed pt care @ 1900 Pt a&x4, no signs of distress Pt with at bedside Pt denies pain at this time Plan of care ongoing.
[2024-04-16 19:50] VITALS: BP 129/63; PULSE 93; RESP 19; TEMP 36.8; O2SAT 91
[2024-04-16 19:51] VITALS: BP 129/63; PULSE 93; RESP 20; TEMP 36.8; O2SAT 91
== END 2024-04-16 19:54 | disposition home or self-care (01) ==
PROVIDERS: Registered Nurse Emergency; Emergency Provider Internal Medicine; PCP Internal Medicine
DX: J44.0 Chronic obstructive pulmonary disease with (acute) lower respiratory infection (principal); R06.02 Shortness of breath; Z03.818 Encounter for observation for suspected exposure to other biological agents ruled out; R05.9 Cough, unspecified; E78.00 Pure hypercholesterolemia, unspecified; I48.91 Unspecified atrial fibrillation; Z79.01 Long term (current) use of anticoagulants; Z79.02 Long term (current) use of antithrombotics/antiplatelets; Z79.899 Other long term (current) drug therapy
CPT/HCPCS: 0241U; 36415; 71046; 80053; 83880; 84484; 85025; 85610; 93005; 94640; 96365; 96375; 99284; 99285; J0696; J2919

== ENCOUNTER 2024-04-18 07:48 | Outpatient (REF) | payer MEDICARE, SELFPAY ==
[2024-04-18 08:07] LABS: MANUAL DIFF FLAG NO
[2024-04-18 08:38] LABS: Basophils Percent Auto 0.1 % (0-2); Eosinophils Absolute Auto 0.1 X10*3/uL (0.0-0.4); Eosinophils Percent Auto 0.8 % (0-4); Hematocrit 43.4 % (42.0-52.0); Hemoglobin 15.3 g/dl (14.0-18.0); Imm Gran Pct Auto 0.7 % (0.0-0.4); Lymphocytes Absolute Auto 1.8 X10*3/uL (1.2-4.9); Lymphocytes Percent Auto 12.6 % (20-40); Mean Corpuscular HGB Conc 35.3 g/dl (31.0-36.0); Mean Corpuscular Hemoglobin 31.2 pg (27.0-33.0); Mean Corpuscular Volume 88.6 fL (80.0-98.0); Mean Platelet Volume 9.7 fL (9.4-12.4); Monocytes Absolute Auto 0.9 X10*3/uL (0.1-1.2); Monocytes Percent Auto 6.2 % (2-11); Neutrophils Absolute Auto 11.6 x10*3/uL (2.0-8.3); Neutrophils Percent Auto 79.6 % (45-73); Platelet Count 198 X10*3/uL (160-400); Red Cell Distribution Width 13.2 % (11.0-16.0); White Blood Count 14.6 X10*3/uL (4.8-10.8)
[2024-04-18 09:09] LABS: Alanine Aminotransferase 30 U/L (0-40); Albumin Level 3.7 g/dL (3.5-5.0); Alkaline Phosphatase 77 U/L (39-117); Anion Gap 13 (12-20); Aspartate Amino Transferase 19 U/L (5-37); Bilirubin Total 0.7 mg/dL (0.0-1.0); Blood Urea Nitrogen 21 mg/dL (9-16); Calcium 9.1 mg/dL (8.4-10.2); Carbon Dioxide 27 mmol/L (22-29); Chloride 107 mmol/L (96-108); Cholesterol 154 mg/dL (<200); Estimated Glomerular Filt Rate > 60; Glucose Random 98 mg/dL (60-115); HDL Cholesterol 62 mg/dL (>40); LDL Cholesterol Calculated 77 mg/dL (<100); Magnesium 2.3 mg/dL (1.6-2.6); Phosphorus 3.7 mg/dL (2.7-4.5); Potassium 4.5 mmol/L (3.3-5.1); Sodium 142 mmol/L (135-145); Total Protein 7.1 g/dL (6.5-8.0); Triglycerides 78 mg/dL (<150)
[2024-04-18 09:23] LABS: Prostate Specific Antigen Scr 1.16 ng/mL (<0.05-4.0)
[2024-04-18 09:26] LABS: Thyroid Stimulating Hormone 0.81 uIU/mL (0.32-4.0)
== END 2024-04-18 07:49 | disposition home or self-care (01) ==
LOC: HO.LAB 07:48
PROVIDERS: PCP Internal Medicine; Visit Provider Internal Medicine
DX: E78.00 Pure hypercholesterolemia, unspecified (principal); Z12.5 Encounter for screening for malignant neoplasm of prostate
CPT/HCPCS: 36415; 80053; 80061; 83735; 84100; 84153; 84443; 85025

== ENCOUNTER 2024-04-21 09:23 | Outpatient (AMB) | payer MEDICARE, SELFPAY ==
--- NOTE | 2024-04-21 09:44 | A.OFFPC_ITS ---
Vital Signs 04/21/24 09:45 Height 5 ft 6 in Weight 206 lb 6 oz BMI 33.3 BP 110/68 Blood Pressure Location Lt brachial Position Sitting Pulse 65 Pulse Source Pulse Oximeter Pulse Oximetry (%) 98 Oxygen Delivery Method Room Air Intake Visit Reasons: a fib - see comments Intake Note: Patient is here to follow up on AFIB. [place] Required: No Clinical Cytogeneticist Scientist: Present Accompanied by: Spouse Allergies dronedarone [From Multaq] Allergy (Mild, Verified 04/21/24 09:45) Rash amoxicillin [From Augmentin] Allergy (Verified 04/21/24 09:45) liver failure clavulanic acid [From Augmentin] Allergy (Verified 04/21/24 09:45) liver failure Penicillins Adverse Reaction (Intermediate, Verified 04/21/24 09:45) Unknown Medication List - Last Reconciled 04/21/24 by Any Jackson MD albuterol sulfate 90 mcg/actuation 2 puffs inhalation Q8H PRN 30 days apixaban (Eliquis) 5 mg PO BID 90 days benzonatate 200 mg PO TID PRN cefuroxime axetil 500 mg PO BID 7 days CPAP (CPAP Machine/Device) As directed docusate sodium (Colace) 100 mg PO DAILY doxycycline hyclate 100 mg PO BID fluticasone propion-salmeterol 230-21 mcg/actuation (Advair HFA) 2 puffs inhalation BID gemcitabine 1,000 mg IV QWEEK ipratropium bromide 1 spray intranasal DAILY meclizine 25 mg PO BID PRN metoprolol tartrate 50 mg PO BID omeprazole 20 mg PO DAILY 90 days polyethylene glycol 3350 (Miralax) 17 grams PO DAILY prednisone 40 mg (2 x 20 mg) PO DAILY simvastatin 40 mg PO BEDTIME Tobacco use date assessed: 04/21/24 Fall risk assessment: No Falls in past year Last assessed Fall Risk: 04/21/24 Dental Screening Dental Screen Date: 12/04/23 HPI a fib - see comments HPI Details 81-year-old male with multiple medical p roblems COPD polymyalgia history of prostate cancer (03/04/2021) interstitial lung disease history of CVA coronary artery disease with cardiomyopathy with an ICD hypertension hypercholesterolemia coming in for follow-up. Last seen in March 03. Patient was seen by Cardiology in April 17 for cardiac device check. Urology notes appreciated April 01 following up with PSA and testosterone PSA remains undetectable(status post external beam radiation with GnRH August 2021) continuing with PSA surveillance. Before that in December 11 was seen by Cardiology most recent echocardiogram 40-45% ejection fraction patient also is on amiodarone due to history of VT stress test January 2023 showing severe large mid anterior apical anterior apical and apical inferior coker with mild celestina-infarct ischemia on the mid anterior wall after attenuation correction. Showing LAD territory infarct with low normal left ventricular systolic function with akinesis of the apical inferior and apical coker patient also has some mild to moderate oropharyngeal dysphagia. [facility] Medical History Bladder cancer Atrial fibrillation SVT (supraventricular tachycardia) LBBB (left bundle branch block) PVC (premature ventricular contraction) Hypercholesterolemia Asthma COPD (chronic obstructive pulmonary disease) Jaundice ANALY on CPAP Cough Personal history of nicotine dependence History of COVID-19 History of small bowel obstruction GERD (gastroesophageal reflux disease) Erectile dysfunction Obesity (BMI 30-39.9) Surgical History History of foot surgery (~2021) History of laparotomy (~2020) History of arthroplasty of right knee (~2020) History of meniscectomy of right knee (~2011) History of cataract surgery (~2020) History of appendectomy History of arthroplasty of left knee (~2019) History of meniscectomy of left knee (~2018) History of bladder surgery Hx of transurethral destruction of bladder lesion Family History Father Lung cancer Mother History of breast cancer Sister Multiple myeloma Other Cough Social History Household Members: Spouse Housing: House Are you a primary patient care manager to a significant other at home: No Do you presently have visiting nurse or other home services: No Alcohol intake: former Patient Tobacco Use Status: Former Tobacco user Tobacco use type: Cigarette Years Smoked: (former smoker - onset 14yo, 1ppd x 46yrs, 45pyh, quit 2009) e-Cigarette/Vaping Use: Never Used Second Hand Smoke Exposure: No Advance Directives Date on File: 02/14/21 service: Yes ( [employer] - served in [employer] [facility]) Current occupational status: retired Current occupational exposures/hazards: Yes (was exposed to [employer] [place] while serving in [employer]) Cognitive needs: No Hearing needs: Yes (hearing aide) Vision needs: No Questionnaire Thrive Questionnaire Date Thrive assessed: 12/04/23 Are you currently unemployed and looking for a job?: No PARIS-7 AMB Questionnaire PARIS-7 Date PARIS - 7 assessed: 12/04/23 Source: Developed by Drs. Darrian Watson, Megan Richardson, Alexandru Griffiths and colleagues, with an educational aydin from [employer]. Physical exam (Primary Care) Vital Signs: Last Vital Signs Pulse 65 04/21/24 09:45 BP 110/68 04/21/24 09:45 Pulse Ox 98 04/21/24 09:45 Oxygen Delivery Method Room Air 04/21/24 09:45 BMI result Body Mass Index 33.3 Tobacco/Smoking Status: Tobacco use Status Tobacco use date assessed 04/21/24 04/21/24 09:45 Patient Tobacco Use Status Former Tobacco user 04/21/24 09:45 Tobacco use type Cigarette 04/21/24 09:45 e-Cigarette/Vaping Use Never Used 04/21/24 09:45 Thrive Assessment: Date of Thrive Assessment Date Thrive assessed 12/04/23 04/21/24 09:45 Const General: alert; No acute distress Eyes Conjunctivae: conjunctivae normal Resp Auscultation: clear to auscultation bilaterally Cardio Rate: regular rate Rhythm: regular rhythm GI Inspection: Yes normal to inspection Extrem General: Yes normal to inspection and No edema Coding Level of Care Code Est Pt Level 4 (82289) Diagnoses Bladder cancer C67.9 Atrial fibrillation I48.91 Hypercholesterolemia E78.00 COPD (chronic obstructive pulmonary disease) J44.9 Jaundice R17 Assessment & Plan Assessment & Plan (1) [facility]: [facility] Far[facility], 05/2016 [facility], 06/04 [place] [facility], 07/05 [place] [facility] BCG induction Fulguration and mitomycin-C May 2022 TURBT May 2022 [facility], bladder surgery 07/2023 Code(s): C67.9 - Malignant neoplasm of bladder, unspecified Category: Medical Plan: Continue to follow-up with Urology with cystoscopy (2) Atrial fibrillation: Comment: Ablation done 2021 with pulmonary vein isolation Code(s): I48.91 - Unspecified atrial fibrillation Category: Medical Plan: Patient on anticoagulation with Eliquis metoprolol 50 mg twice a day (3) Hypercholesterolemia: Code(s): E78.00 - Pure hypercholesterolemia, unspecified Category: Medical Plan: Avoid fried foods, chicken skin, eggs, butter margarine, pastries and meat. Be it pork or beef they have a lot of cholesterol LDL goal of less than 100 and triglyceride of less than 150 on simvastatin 40 mg once a day (4) COPD (chronic obstructive pulmonary disease): Code(s): J44.9 - Chronic obstructive pulmonary disease, unspecified Category: Medical Plan: Continue with the inhaler albuterol and Advair advised to rinse mouth after using the. (5) Jaundice: Comment: Jaundice has definitely decreased in intensity, patient is being followed by Dr. Khan. Code(s): R17 - Unspecified jaundice Category: Medical Plan: Patient has an allergy to penicillin/amoxicillin Orders: Orders Complete Blood Count Auto Diff 6 Months E78.00 - Pure hypercholesterolemia, unspecified Free T4 (Free Thyroxine) 6 Months E78.00 - Pure hypercholesterolemia, unspecified Phosphorus 6 Months E78.00 - Pure hypercholesterolemia, unspecified Lipid Panel 6 Months E78.00 - Pure hypercholesterolemia, unspecified Vitamin B12 and Folate 6 Months E78.00 - Pure hypercholesterolemia, unspecified Comprehensive Met. Panel 6 Months E78.00 - Pure hypercholesterolemia, unspecified Thyroid Stimulating Hormone 6 Months E78.00 - Pure hypercholesterolemia, unspecified Magnesium 6 Months E78.00 - Pure hypercholesterolemia, unspecified
[2024-04-21 09:45] VITALS: BP 110/68; PULSE 65; O2SAT 98; BMI 33.3
== END 2024-04-21 10:33 | disposition home or self-care (01) ==
PROVIDERS: PCP Internal Medicine; Visit Provider Internal Medicine
DX: E78.00 Pure hypercholesterolemia, unspecified (principal); C67.9 Malignant neoplasm of bladder, unspecified; I48.91 Unspecified atrial fibrillation; J44.9 Chronic obstructive pulmonary disease, unspecified; R17 Unspecified jaundice

== ENCOUNTER → 2024-04-21 09:23 | Outpatient (BNVA) | payer MEDICARE, SELFPAY | PROVIDERS: PCP Internal Medicine; Visit Provider Internal Medicine | DX: C67.9 Malignant neoplasm of bladder, unspecified (principal); I48.91 Unspecified atrial fibrillation; E78.00 Pure hypercholesterolemia, unspecified; J44.9 Chronic obstructive pulmonary disease, unspecified; R17 Unspecified jaundice | CPT/HCPCS: 99212 ==

== ENCOUNTER 2024-05-16 08:37 | Outpatient (REF) | payer MEDICARE, SELFPAY ==
[2024-05-16 15:52] LABS: Urine Cytology See Pathology rpt
== END 2024-05-16 08:38 | disposition home or self-care (01) ==
LOC: HO.LAB 08:37
PROVIDERS: PCP Internal Medicine; Visit Provider Urology
DX: C67.9 Malignant neoplasm of bladder, unspecified (principal); Z98.890 Other specified postprocedural states; Z79.899 Other long term (current) drug therapy
CPT/HCPCS: 52000; 81003; 88112

== ENCOUNTER 2024-05-16 08:37 | Outpatient (AMB) | payer MEDICARE, SELFPAY ==
--- NOTE | 2024-05-16 08:49 | MHC.OFFVIS ---
Intake Visit Reasons: 3M Cystoscopy/PSA(Bladder Ca) Intake Note: Patient is Present for Cystoscopy Urology Med: None Antibiotic Allergy:Amoxicillin, Penicillins Blood Thinner: Eliquis PSA: 04/18/24 PSA 1.16 Last Cytology:2022 URO- G Disposable Cystoscope lot: exp: Allergies dronedarone [From Multaq] Allergy (Mild, Verified 04/21/24 09:45) Rash amoxicillin [From Augmentin] Allergy (Verified 04/21/24 09:45) liver failure clavulanic acid [From Augmentin] Allergy (Verified 04/21/24 09:45) liver failure Penicillins Adverse Reaction (Intermediate, Verified 04/21/24 09:45) Unknown HPI Comments Details: Volodymyr is a very pleasant male. He is a patient of Dr. Jackson. He is seen for the following urologic conditions - bladder cancer - urinary tract infection Cystoscopy today - small superficial lesion left sidewall Plan biopsy with fulguration and immunotherapy [place] -Dome patch had been fulgurated 06/07 Current Cycle induction, 12/06 3 week boost gemcitabine/docetaxel Bladder Cancer low-grade superficial recurrent T1 2019, 07/05 06/06 CIS on biopsy [place] [facility] - Dr Hugo - [facility] Initial diagnosis superficial bladder cancer, recurrent Interventions - TURBT [place] 2019, [place] 06/2021 - 06/06 TURBT CIS with [facility] treatment - 03/07 fulguration bladder dome with 3 week [facility] Cytarabine Adjuvant therapy - BCG induction x2, completed induction Aug 2021 - Gemcitabine - 03/07 2 week [facility] with Cytarabine boost Check cystoscopy - 01/03 BCG changes with mucosal erythema patches - 11/04 no evidence of recurrent disease - 04/06 posterior wall patch - TURBT CIS - 10/05 NAD, 01/05 bladder dome mucosal changes Cytology - 11/04 rare atypical, 04/06 suspicious, 10/05 rare atypical, 06/07 atypical Risk factors - 40 year pack per day smoking history - Agent Gall[place] exposure Therapeutic plan - three-month follow-up cysto Urinary tract infection 08/07 E coli ESBL Trouble with recurrent urinary tract infections Culture shows ESBL E coli resistant to most oral antibiotics PFSH Medical History Bladder cancer Atrial fibrillation SVT (supraventricular tachycardia) LBBB (left bundle branch block) PVC (premature ventricular contraction) Hypercholesterolemia Asthma COPD (chronic obstructive pulmonary disease) Jaundice ANALY on CPAP Cough Personal history of nicotine dependence History of COVID-19 History of small bowel obstruction GERD (gastroesophageal reflux disease) Erectile dysfunction Obesity (BMI 30-39.9) Surgical History History of foot surgery (~2021) History of laparotomy (~2020) History of arthroplasty of right knee (~2020) History of meniscectomy of right knee (~2011) History of cataract surgery (~2020) History of appendectomy History of arthroplasty of left knee (~2019) History of meniscectomy of left knee (~2018) History of bladder surgery Hx of transurethral destruction of bladder lesion Family History Father Lung cancer Mother History of breast cancer Sister Multiple myeloma Other Cough Social History Household Members: Spouse Housing: House Are you a primary direct care specialist to a significant other at home: No Do you presently have visiting nurse or other home services: No Alcohol intake: former Patient Tobacco Use Status: Former Tobacco user Tobacco use type: Cigarette Years Smoked: (former smoker - onset 14yo, 1ppd x 46yrs, 45pyh, quit 2009) e-Cigarette/Vaping Use: Never Used Second Hand Smoke Exposure: No Advance Directives Date on File: 02/14/21 service: Yes ( [employer] - served in [facility]) Current occupational status: retired Current occupational exposures/hazards: Yes (was exposed to Agent [place] while serving in [employer]) Cognitive needs: No Hearing needs: Yes (hearing aide) Vision needs: No Review of Systems Const Denies chills and Denies fever(s) Card Reports no additional complaints and Denies syncope Resp Denies cough GI Denies abdominal pain and Denies heartburn Reports as per HPI and Denies change in libido Neuro Denies syncope Psych Denies change in libido Endo Denies change in libido Physical Exam Const General: cooperative, healthy appearing, comfortable and no acute distress Orientation/consciousness: patient oriented x3 HEENT Face and sinus: Yes normal facial exam Mouth: moist mucous membranes Neck Neck: Yes normal visual inspection, Yes full ROM and Yes trachea midline Chest Chest palpation & inspection: normal inspection of the chest Resp Effort & Inspection: normal respiratory effort, able to speak in complete sentences and no respiratory distress GI Inspection: Yes normal to inspection Back/Spine/Pelvis Cervical Spine: normal cervical lordosis Thoracic/Lumbar Spine: thoracic and lumbar spine normal to inspection Skin General skin exam: no rashes or lesions noted Neuro General: patient oriented x3, gait normal, tone normal and moves all extremities Extrem General: Yes normal to inspection and Yes capillary refill normal Office Procedures Cystoscopy Consent Discussed risk and benefit or proposed procedure with the patient. Information consent for procedure given to the patient. Discussed technical aspects, risks, benefits and alternatives in full. Addressed all of the patient's questions and concerns regarding the procedure. The patient demonstrated knowledge and understanding. They wish to proceed with this procedure. Preparation The patient was prepped in the usual manner. A business performance specialist was present and in the room. Genitalia was prepped with betadine solution in a sterile manner. Lidocaine Jelly 2% was placed into the urethra and 16Fr flexible Olympus cystoscope was inserted into the meatus after adequate lubrication. Procedure Cystoscopy performed using a disposable Urovue digital 16 Serbian cystoscope. Meatus circumcised Urethra anterior. Posterior urethra normal Prostatic Urethra TURP defect Bladder examination with retroflexion of cystoscope Bladder Orifices normal shape and position Bladder Capacity median Trabeculations grade 1 Cellule Formation no Diverticulum Formation no Mucosal Erythema scarring from prior procedures Bladder Tumor 1 cm left lower sidewall [id number] DISPOSABLE SCOPE URO-G FLEXIBLE SCOPE Procedure code (CPT) selection complete Office Meds lidocaine HCl 2 % mucosal jelly in applicator Performing Provider: Darrin Alicea MD Performing Location[facility] Administered by: Darrin Alicea MD on 05/16/24 11:25 Dose Route Admin Location Dispensed Lot Number Expiration Date [facility] Insurance Examining Clerk 10 mL intra-urethral 10 mL nitrofurantoin monohydrate/macrocrystals 100 mg capsule Performing Provider: Darrin Alicea MD Performing Location: [facility] Administered by: Darrin Alicea MD on 05/16/24 11:25 Dose Route Admin Location Dispensed Lot Number Expiration Date [facility] Insurance Examining Clerk 100 mg PO 1 cap naproxen 500 mg tablet Performing Provider: Darrin Alicea MD Performing Location: [facility] Documented (not given) by: Darrin Alicea MD on 05/16/24 11:25 Dose Route Admin Location Dispensed Lot Number Expiration Date [facility] Insurance Examining Clerk 500 mg PO tab Results AMB Urinalysis, Automated UA Leukoctes 0 Candice/uL Last Edit by Yoko Dumont A on 05/16/24 09:05 UA Nitrite Negative Last Edit by Yoko Dumont A on 05/16/24 09:05 UA Urobilinogen 0.2 mg/dL Last Edit by Yoko Dumont A on 05/16/24 09:05 UA Protein 0 mg/dL Last Edit by Yoko Dumont A on 05/16/24 09:05 UA pH 6.0 Last Edit by Yoko Dumont A on 05/16/24 09:05 UA Blood 0 Clive/uL Last Edit by Yoko Dumont, A on 05/16/24 09:05 UA Specific [place] 1.000 Last Edit by Yoko Dumont A on 05/16/24 09:05 UA Ketone Negative Last Edit by Yoko Dumont A on 05/16/24 09:05 UA Bilirubin 0 mg/dL Last Edit by Yoko Dumont A on 05/16/24 09:05 UA Glucose 0 mg/dL Last Edit by Yoko Dumont A on 05/16/24 09:05 Results Reviewed Results Reviewed: Laboratory Last Values Urine pH (Auto) 6.0 05/16/24 08:55 Specific [place] (Auto) 1.000 05/16/24 08:55 Urine Protein (Auto) 0 mg/dL 05/16/24 08:55 Glucose (UA)(Auto) 0 mg/dL 05/16/24 08:55 Urine Ketones (Auto) Negative 05/16/24 08:55 Urine Blood (Auto) 0 Clive/uL 05/16/24 08:55 Urine Nitrite (Auto) Negative 05/16/24 08:55 Urine Bilirubin (Auto) 0 mg/dL 05/16/24 08:55 Urine Urobilinogen (Auto) 0.2 mg/dL 05/16/24 08:55 Leukocyte Esterase (Auto) 0 Candice/uL 05/16/24 08:55 Assessment & Plan Assessment & Plan (1) Bladder cancer: Comment: TURBT 06/28 pTaLG, 06/29 Dr Mike Farrell, 05/2016 BCG, 06/04 [place] pT1LG, 07/05 [place] pTaLG BCG induction Fulguration and mitomycin-C May 2022 TURBT May 2022 CIS, bladder surgery 07/2023 Code(s): C67.9 - Malignant neoplasm of bladder, unspecified Category: Medical Plan Risks, benefits and alternatives to therapy were discussed. These include but are not limited to infection, bleeding, damage to local organs and tissues, need for further interventions. Anesthetic risks regarding cardiac arrhythmia, blood clots, and potential mortality were discussed. The patient understands the typical recovery time and the outpatient nature of the procedure. After consideration of these risks the patient gives full informed consent and they wish to move ahead with the procedure. Cystoscopy, bladder biopsy with fulguration, immunotherapy Orders: Orders AMB Cystoscopy Today C67.9 - Malignant neoplasm of bladder, unspecified AMB Urinalysis Automated Today Z13.9 - Encounter for screening, unspecified Medications: New nitrofurantoin monohyd/m-cryst 100 mg 100 mg PO ONCE 1 cap 0RF C67.9 - Malignant neoplasm of bladder, unspecified naproxen 500 mg PO ONCE 1 tab 0RF C67.9 - Malignant neoplasm of bladder, unspecified lidocaine HCl 2% 10 mL intra-urethral ONCE 10 mL 0RF C67.9 - Malignant neoplasm of bladder, unspecified Patient Instructions: Imaging studies, laboratory and physical exam results were discussed and reviewed in detail. No major barriers to patient understanding were identified. An opportunity to ask questions regarding the treatment plan was provided. All questions were answered. The patient expressed understanding and agreement with the above treatment plan. The patient is aware they should contact our office by phone for worsening of their current condition or the appearance of new urologic symptoms. Compliance is encouraged with any medications and followup testing that is ordered. It is a privilege to participate in the urologic care of your patient. If you have any questions or concerns regarding treatment for the above conditions, or other urologic issues, please do not hesitate to contact me. The office telephone contact is [phone]. This note is constructed using voice recognition software. While every effort has been made to ensure accuracy golf club head inspector and adjuster errors may have been included. Yours sincerely, Dr Darrin Alicea MD, [facility] - Urology Providers of Expert, Compassionate Care for the Genitourinary System Coding Level of Care Code Est Pt Level 4 (63556) Diagnoses Bladder cancer C67.9 CPT Codes Cystoscopy - CPT: 93681-[id number] ([id number])
== END 2024-05-16 09:56 | disposition home or self-care (01) ==
LOC: HO.HUSH 08:38
PROVIDERS: PCP Internal Medicine; Visit Provider Urology
DX: C67.9 Malignant neoplasm of bladder, unspecified (principal); Z13.9 Encounter for screening, unspecified
CPT/HCPCS: 52000

== ENCOUNTER 2024-05-19 13:53 | Outpatient (AMB) | payer MEDICARE, SELFPAY ==
--- NOTE | 2024-05-19 14:05 | MHC.OFFVIS ---
Vital Signs 05/19/24 14:06 Weight 209 lb 7.026 oz BP 120/70 Blood Pressure Location Lt brachial Position Sitting Pulse 70 Pulse Source Pulse Oximeter Pulse Oximetry (%) 96 Oxygen Delivery Method Room Air Intake Visit Reasons: Obstructive sleep apnea Allergies dronedarone [From Multaq] Allergy (Mild, Verified 05/19/24 14:34) Rash amoxicillin [From Augmentin] Allergy (Verified 05/19/24 14:34) liver failure clavulanic acid [From Augmentin] Allergy (Verified 05/19/24 14:34) liver failure Penicillins Adverse Reaction (Intermediate, Verified 05/19/24 14:34) Unknown Medication List - Last Reconciled 05/19/24 by Ramin Christie MD albuterol sulfate 90 mcg/actuation 2 puffs inhalation Q8H PRN 30 days albuterol sulfate 1.25 mg inhalation Q4-6H PRN apixaban (Eliquis) 5 mg PO BID 90 days benzonatate 200 mg PO TID PRN cefuroxime axetil 500 mg PO BID 7 days CPAP (CPAP Machine/Device) As directed docusate sodium (Colace) 100 mg PO DAILY doxycycline hyclate 100 mg PO BID dupilumab (Dupixent) 300 mg subcut QWEEK fluticasone propion-salmeterol 230-21 mcg/actuation (Advair HFA) 2 puffs inhalation BID gemcitabine 1,000 mg IV QWEEK ipratropium bromide 1 spray intranasal DAILY meclizine 25 mg PO BID PRN metoprolol tartrate 50 mg PO BID omeprazole 20 mg PO DAILY 90 days polyethylene glycol 3350 (Miralax) 17 grams PO DAILY prednisone 40 mg (2 x 20 mg) PO DAILY simvastatin 40 mg PO BEDTIME Do you need a note to return to daycare/school/sports/work: No HPI HPI Obstructive sleep apnea: Details: YISEL, 74 YEARS OLD GENTLEMAN IS HERE FOR 6 MONTHS FOLLOW-UP. HE HAS CHRONIC ASTHMA/COPD , OBSTRUCTIVE SLEEP APNEA, ECZEMA. HIS CMM TECHNICIAN HAS PUT HIM ON DUPIXENT, AND WITH WITH THIS HIS BREATHING IS ALSO BETTER. HE HAS MILD INTERMITTENT COUGH WITH SOME WHEEZING AND USES ALBUTEROL IN THE NEBULIZER, P.R.N. NO MORE THAN ONCE OR TWICE A DAY. HE CONTINUES TO USE ADVAIR HFA 230-212 PUFFS B.I.D. WITH A SPACER. HE IS USING CPAP REGULARLY EVERY NIGHT AND SLEEPS WELL. [facility] Medical History Bladder cancer Atrial fibrillation SVT (supraventricular tachycardia) LBBB (left bundle branch block) PVC (premature ventricular contraction) Hypercholesterolemia Asthma COPD (chronic obstructive pulmonary disease) Jaundice ANALY on CPAP Cough Personal history of nicotine dependence History of COVID-19 History of small bowel obstruction GERD (gastroesophageal reflux disease) Erectile dysfunction Obesity (BMI 30-39.9) Surgical History History of foot surgery (~2021) History of laparotomy (~2020) History of arthroplasty of right knee (~2020) History of meniscectomy of right knee (~2011) History of cataract surgery (~2020) History of appendectomy History of arthroplasty of left knee (~2019) History of meniscectomy of left knee (~2018) History of bladder surgery Hx of transurethral destruction of bladder lesion Family History Father Lung cancer Mother History of breast cancer Sister Multiple myeloma Other Cough Social History Household Members: Spouse Housing: House Are you a primary urgent care to a significant other at home: No Do you presently have visiting nurse or other home services: No Alcohol intake: former Patient Tobacco Use Status: Former Tobacco user Tobacco use type: Cigarette Years Smoked: (former smoker - onset 14yo, 1ppd x 46yrs, 45pyh, quit 2009) e-Cigarette/Vaping Use: Never Used Second Hand Smoke Exposure: No Advance Directives Date on File: 02/14/21 service: Yes ( [email or web address] - served in [employer]) Current occupational status: retired Current occupational exposures/hazards: Yes (was exposed to Agent [place] while serving in [employer]) Cognitive needs: No Hearing needs: Yes (hearing aide) Vision needs: No Review of Systems Const All systems reviewed & are unremarkable except as noted in HPI and below Eyes Reports no additional complaints ENT Denies dysphagia and Reports nasal congestion (Mild) Card Denies chest pain, Denies irregular heart rhythm and Denies leg edema Resp Reports as per HPI GI Denies GI cramping, Denies dysphagia, Reports heartburn (GERD symptoms are controlled with medicine), Denies diarrhea, Denies vomiting and Reports other (Increasing jaundice in the last 1 week) Reports erectile dysfunction Musc Reports no additional complaints Skin/Breast Reports pruritus (Has generalized H especially on the back since onset of jaundice) Neuro Reports no additional complaints Psych Reports no additional complaints Endo Reports no additional complaints Physical Exam Vital Signs: Last Vital Signs Pulse 70 05/19/24 14:06 BP 120/70 05/19/24 14:06 Pulse Ox 96 05/19/24 14:06 Oxygen Delivery Method Room Air 05/19/24 14:06 Const Other: HAS YELLOW COMPLEXION General: comfortable, no acute distress (But has repeated cough during conversation), alert and awake Orientation/consciousness: patient oriented x3 HEENT Head: Yes normal to inspection General nose exam: No nasal polyps present and No nasal discharge present Face and sinus: Yes sinuses nontender Mouth: oropharynx normal (However there is slight enlargement and erythema uvula) Throat: Yes posterior oropharynx normal Eyes General: appearance normal, both eyes and all related structures Sclerae: scleral abnormal (Has intense jaundice) Neck Neck: Yes normal visual inspection, Yes no lymphadenopathy, Yes trachea midline and Yes no JVD Thyroid: Thyroid normal Chest Chest palpation & inspection: normal inspection of the chest, normal palpation of entire chest wall and no tenderness Resp Other: Percussion note slightly hyper-resonant. Breath sounds are equal and normal on both sides. He can take deep breaths, without cough. and there are no wheezes rhonchi or Creps. Cardio Palpation: normal PMI Rate: regular rate Rhythm: regular rhythm Heart sounds: no gallops and no murmurs Peripheral pulses: Peripheral pulses 2+ throughout GI Palpation (GI): Soft to palpation, nontender, No hepatosplenomegaly present and no masses Auscultation: normal bowel sounds Back/Spine/Pelvis Thoracic/Lumbar Spine: thoracic and lumbar spine normal to inspection Skin General skin exam: jaundice (Quite intense yellow discoloration is noted) Neuro General: patient oriented x3 and no focal motor deficits Cranial nerves: Yes CN's II-XII intact bilaterally Extrem General: Yes normal to inspection, Yes no clubbing, cyanosis or edema and Yes no calf tenderness Psych Appearance: grossly normal and well kempt Speech and movement: Normal speech and movement present Assessment & Plan Assessment & Plan (1) Asthma: Comment: His symptoms are indicative of mild intermittent bronchial asthma. Currently controlled very well with use of : Advair HFA 232-21 2 puffs b.i.d. Using with a spacer and Albuterol HFA 2 puffs Q 4-6 hours only p.r.n. Has been started on Dupixent, injection twice a month ( primarily for eczema/ allergic dermatitis . Claims to be feeling better even respiratory clemons. Code(s): J45.909 - Unspecified asthma, uncomplicated Category: Medical Plan: Advised to continue Advair HFA 232-212 puffs b.i.d. Use albuterol HFA 2 puffs Q 6 hours p.r.n. or alternatively albuterol solution 1.25 mg in 3 male Q 6 hours p.r.n.. (2) COPD (chronic obstructive pulmonary disease): Comment: He does have chronic obstructive pulmonary disease along with bronchial asthma, seems to be well controlled at this time. Code(s): J44.9 - Chronic obstructive pulmonary disease, unspecified Category: Medical Plan: Same as under bronchial asthma (3) ANALY on CPAP: Comment: Patient uses CPAP regularly every night - since 2017 Code(s): G47.33 - Obstructive sleep apnea (adult) (pediatric); Z99.89 - Dependence on other enabling machines and devices Category: Medical Plan: Patient uses CPAP every night and sleeps well . CPAP management is under care of his PCP, Dr. BLANTON . (4) Allergic rhinitis: Comment: He has mild allergic rhinitis, may get worse with seasonal changes. Better controlled since he is on Dupixent treatment Code(s): J30.9 - Allergic rhinitis, unspecified Category: Medical Plan: [place] : Ipratropium [place] nasal spray one spray in each Nare daily OK to use Zyrtec 10 mg, even half tablet once a day p.r.n. Coding Level of Care Code Est Pt Level 3 (36224) Diagnoses Asthma J45.909 COPD (chronic obstructive pulmonary disease) J44.9 ANALY on CPAP G47.33; Z99.89 Allergic rhinitis J30.9
[2024-05-19 14:06] VITALS: BP 120/70; PULSE 70; O2SAT 96
== END 2024-05-19 14:35 | disposition home or self-care (01) ==
LOC: HO.HPS 13:55
PROVIDERS: PCP Internal Medicine; Visit Provider Internal Medicine
DX: J45.909 Unspecified asthma, uncomplicated (principal); J44.9 Chronic obstructive pulmonary disease, unspecified; G47.33 Obstructive sleep apnea (adult) (pediatric); Z99.89 Dependence on other enabling machines and devices; J30.9 Allergic rhinitis, unspecified
CPT/HCPCS: 99213

== ENCOUNTER → 2024-05-19 13:53 | Outpatient (BNVA) | payer MEDICARE, SELFPAY | PROVIDERS: PCP Internal Medicine; Visit Provider Internal Medicine | DX: J44.9 Chronic obstructive pulmonary disease, unspecified (principal); J30.9 Allergic rhinitis, unspecified; G47.33 Obstructive sleep apnea (adult) (pediatric); Z99.89 Dependence on other enabling machines and devices | CPT/HCPCS: 99212 ==

== ENCOUNTER 2024-06-06 10:47 | Outpatient (AMB) | payer MEDICARE, SELFPAY ==
[2024-06-06 10:51] VITALS: BP 110/76; PULSE 86; TEMP 36.7; O2SAT 94; BMI 33.7
--- NOTE | 2024-06-06 10:51 | AM.OFFWIN_ITS ---
Intake Vital Signs 06/06/24 10:51 Height 5 ft 6 in Weight 209 lb BMI 33.7 BP 110/76 Blood Pressure Location Rt brachial Position Sitting Pulse 86 Pulse Source Pulse Oximeter Temp 98.0 F Temp Source Oral Pulse Oximetry (%) 94 Intake Visit Reasons: EP-chest congestion, ?Bronchitis Intake Note: pt is here for chest congestion, bronchitis Patient Tobacco Use Status: Former Tobacco user Allergies dronedarone [From Multaq] Allergy (Mild, Verified 06/06/24 10:51) Rash amoxicillin [From Augmentin] Allergy (Verified 06/06/24 10:51) liver failure clavulanic acid [From Augmentin] Allergy (Verified 06/06/24 10:51) liver failure Penicillins Adverse Reaction (Intermediate, Verified 06/06/24 10:51) Unknown Do you need a note to return to daycare/school/sports/work: No HPI HPI Comments History of Present Illness Details 74 y/o male patient who presents to the walk in clinic with c/o Cough, chest tightness, and SOB for few days. H/o chronic complicated COPD, currently followed by Pulmonology. [facility] Medical History Bladder cancer Atrial fibrillation SVT (supraventricular tachycardia) LBBB (left bundle branch block) PVC (premature ventricular contraction) Hypercholesterolemia Asthma COPD (chronic obstructive pulmonary disease) Jaundice ANALY on CPAP Cough Personal history of nicotine dependence History of COVID-19 History of small bowel obstruction GERD (gastroesophageal reflux disease) Erectile dysfunction Obesity (BMI 30-39.9) Surgical History History of foot surgery (~2021) History of laparotomy (~2020) History of arthroplasty of right knee (~2020) History of meniscectomy of right knee (~2011) History of cataract surgery (~2020) History of appendectomy History of arthroplasty of left knee (~2019) History of meniscectomy of left knee (~2019) History of bladder surgery Hx of transurethral destruction of bladder lesion Family History Father Lung cancer Mother History of breast cancer Sister Multiple myeloma Other Cough Social History Household Members: Spouse Housing: House Are you a primary plant care worker to a significant other at home: No Do you presently have visiting nurse or other home services: No Alcohol intake: former Patient Tobacco Use Status: Former Tobacco user Tobacco use type: Cigarette Years Smoked: (former smoker - onset 14yo, 1ppd x 46yrs, 45pyh, quit 2009) e-Cigarette/Vaping Use: Never Used Second Hand Smoke Exposure: No Advance Directives Date on File: 02/14/21 service: Yes ([employer] - served in [facility]) Current occupational status: retired Current occupational exposures/hazards: Yes (was exposed to Agent [place] while serving in [employer]) Cognitive needs: No Hearing needs: Yes (hearing aide) Vision needs: No Physical Exam Vital Signs: Last Vital Signs Temp 98.0 F 06/06/24 10:51 Pulse 86 06/06/24 10:51 BP 110/76 06/06/24 10:51 Pulse Ox 94 06/06/24 10:51 BMI result Body Mass Index 33.7 Const General: cooperative and no acute distress Nutritional Appearance: obese Orientation/consciousness: patient oriented x3 HEENT Head: Yes normocephalic Ears: external ears normal and TM abnormal with fluid behind the TM General nose exam: Normal external nose present Face and sinus: Yes sinuses nontender Mouth: moist mucous membranes Throat: Yes uvula midline Resp Effort & Inspection: normal respiratory effort and able to speak in complete sentences Auscultation: clear to auscultation bilaterally, no crackles, no rales, no rhonchi and no wheezes Cardio Heart sounds: S1 normal heart sound present and S2 normal heart sound present Neuro General: patient oriented x3, gait normal and moves all extremities Psych Speech and movement: Normal speech and movement present Assessment & Plan Assessment & Plan (1) COPD (chronic obstructive pulmonary disease): Comment: He does have chronic obstructive pulmonary disease along with bronchial asthma, seems to be well controlled at this time. Code(s): J44.9 - Chronic obstructive pulmonary disease, unspecified Qualifiers: COPD type: COPD with acute exacerbation Qualified Code(s): J44.1 - Chronic obstructive pulmonary disease with (acute) exacerbation Plan: Continue f/u with Pulmonology Continue using prescribed medications. Ordered SARs Rest, hydrate well with warm fluids (2) Cough: Comment: Code(s): R05.9 - Cough, unspecified Qualifiers: Cough type: chronic Qualified Code(s): R05.3 - Chronic cough Plan: Continue f/u with Pulmonology Continue using prescribed medications. Ordered SARs Rest, hydrate well with warm fluids Orders: Orders SARS-CoV2/FLU/RSV Today R09.89 - Other specified symptoms and signs involving the circulatory and respiratory systems Medications: New prednisone 50 mg PO DAILY 5 tabs 0RF J44.1 - Chronic obstructive pulmonary disease with (acute) exacerbation, R05.3 - Chronic cough ipratropium-albuterol 0.5 mg-3 mg(2.5 mg base)/3 mL 3 mL inhalation Q4-6H PRN 90 mL 0RF wheezing J44.1 - Chronic obstructive pulmonary disease with (acute) exacerbation, R05.3 - Chronic cough benzonatate 100 mg PO TID 90 caps 0RF R05.3 - Chronic cough Coding Level of Care Code Est Pt Level 3 (41252) Diagnoses Chronic obstructive pulmonary disease with acute exacerbation J44.1 COPD type: COPD with acute exacerbation Chronic cough R05.3 Cough type: chronic Time Spent (min) 15
== END 2024-06-06 12:48 | disposition home or self-care (01) ==
PROVIDERS: PCP Internal Medicine; Visit Provider Nurse Practitioner Family
DX: J44.1 Chronic obstructive pulmonary disease with (acute) exacerbation (principal); R05.3 Chronic cough

== ENCOUNTER 2024-06-06 10:47 | Outpatient (REF) | payer MEDICARE, SELFPAY ==
[2024-06-06 16:08] LABS: Influenza A PCR NEGATIVE (Negative); Influenza B PCR NEGATIVE (Negative); Resp Syncy Virus RNA Qual PCR NEGATIVE (Negative); SARS COV2 PCR INHOUSE NEGATIVE (Negative)
== END 2024-06-06 10:48 | disposition home or self-care (01) ==
LOC: HO.LAB 10:47
PROVIDERS: Nurse Practitioner Family; PCP Internal Medicine
DX: R09.89 Other specified symptoms and signs involving the circulatory and respiratory systems (principal); J44.1 Chronic obstructive pulmonary disease with (acute) exacerbation; R05.3 Chronic cough
CPT/HCPCS: 0241U; 99212

== ENCOUNTER 2024-06-25 10:35 | Outpatient (AMB) | payer MEDICARE, SELFPAY ==
--- NOTE | 2024-06-25 10:42 | AM.OFFWIN_ITS ---
Intake Vital Signs 06/25/24 10:47 Height 5 ft 6 in Weight 207 lb BMI 33.4 BP 122/70 Blood Pressure Location Rt brachial Position Sitting Respiration 14 Pulse 74 Pulse Source Pulse Oximeter Temp 97.0 F Temp Source Oral Pulse Oximetry (%) 95 Oxygen Delivery Method Simple Mask Intake Visit Reasons: congestion/cough Intake Note: Patient complaining of coughing up green phlegm, and chest congestion x 1 week. Patient Tobacco Use Status: Former Tobacco user Allergies dronedarone [From Multaq] Allergy (Mild, Verified 06/25/24 11:17) Rash amoxicillin [From Augmentin] Allergy (Verified 06/25/24 11:17) liver failure clavulanic acid [From Augmentin] Allergy (Verified 06/25/24 11:17) liver failure Penicillins Adverse Reaction (Intermediate, Verified 06/25/24 11:17) Unknown Medication List - Last Reconciled 06/25/24 by Tameka Morejon, [facility]- albuterol sulfate 90 mcg/actuation 2 puffs inhalation Q8H PRN 30 days albuterol sulfate 1.25 mg inhalation Q4-6H PRN apixaban (Eliquis) 5 mg PO BID 90 days benzonatate 100 mg PO TID CPAP (CPAP Machine/Device) As directed docusate sodium (Colace) 100 mg PO DAILY dupilumab (Dupixent) 300 mg subcut QWEEK fluticasone propion-salmeterol 230-21 mcg/actuation (Advair HFA) 2 puffs inhalation BID gemcitabine 1,000 mg IV QWEEK ipratropium bromide 1 spray intranasal DAILY ipratropium-albuterol 0.5 mg-3 mg(2.5 mg base)/3 mL 3 mL inhalation Q4-6H PRN meclizine 25 mg PO BID PRN metoprolol tartrate 50 mg PO BID omeprazole 20 mg PO DAILY 90 days polyethylene glycol 3350 (Miralax) 17 grams PO DAILY prednisone 50 mg PO DAILY simvastatin 40 mg PO BEDTIME Do you need a note to return to daycare/school/sports/work: No HPI HPI Comments History of Present Illness Details History of Present Illness The patient is a 74-year-old male presenting with a cough, nasal congestion, stuffiness and suspected respiratory infection. He has a known history of Chronic Obstructive Pulmonary Disease (COPD). The cough is productive, characterized by expectoration of green sputum, and is accompanied by episodic wheezing. He reports that this symptomatology recurs approximately every six weeks and has been persistent for the last two years, coinciding with a prior COVID-19 infection. In the past, he was treated with prednisone and inhalers, which provided temporary relief. The corticosteroid caused significant side effects, particularly increased nervousness, and is contraindicated due to his upcoming surgery for bladder cancer. The patient notes additional discomfort from a sensation cl to a burnt tongue associated with Singulair, which he has since discontinued. He reports using inhalers, Advair, and Air Supra as a rescue inhaler, and a nebulizer as needed. However, he continues to experience significant coughing and congestion. There is a history of a reaction to penicillin, manifesting as jaundice, and he was previously hospitalized due to elevated bilirubin levels. Exam: Awake alert NAD Sclera and conjunctiva clear bilat Nares mucoid d/c bilat, turbinates edematous and pale, L maxillary and R frontal sinus tenderness with palpation TM intact and clear bilat MMM, pharynx + PND RRR LS CTAB, dim throughout, no wheezing, occassional cough Plan 1. Chronic Obstructive Pulmonary Disease COPD and Asthma: - Encouraged Nebulizer to be used three times daily for the next few days to maintain open airways, cont Advair. Recommend [id number] Mucinex (guaifenesin) for mucolytic effect, taking one extra-strength 12-hour release tablet in the morning and evening. 2. Sinusitis: - Start ABT Patient was informed and verbally consented to the use of an ambient scribe for clinic note documentation during this visit. The plan will be to start him on azithromycin to help treat his suspected bacterial sinusitis. I have made him aware that he should alert his surgical team of being on antibiotics for a respiratory infection. He reports that his surgery as on Sunday and he will update his team. I encouraged him to use his nebulizer as directed above along with his Advair and also encouraged Mucinex. Advised on reasons to follow up with the office and seek sooner care. This note is constructed using voice recognition software. While every effort has been made to ensure accuracy in clinical documentation consultant, still errors may have been included Sometimes, these errors may affect the content or meaning of the given sentence . Total time spent caring for the patient today was 30 minutes. This includes time spent before the visit reviewing the chart, time spent during the visit, and time spent after the visit on documentation [facility] Medical History Bladder cancer Atrial fibrillation SVT (supraventricular tachycardia) LBBB (left bundle branch block) PVC (premature ventricular contraction) Hypercholesterolemia Asthma COPD (chronic obstructive pulmonary disease) Jaundice ANALY on CPAP Cough Personal history of nicotine dependence History of COVID-19 History of small bowel obstruction GERD (gastroesophageal reflux disease) Erectile dysfunction Obesity (BMI 30-39.9) Surgical History History of foot surgery (~2021) History of laparotomy (~2020) History of arthroplasty of right knee (~2020) History of meniscectomy of right knee (~2011) History of cataract surgery (~2020) History of appendectomy History of arthroplasty of left knee (~2019) History of meniscectomy of left knee (~2018) History of bladder surgery Hx of transurethral destruction of bladder lesion Family History Father Lung cancer Mother History of breast cancer Sister Multiple myeloma Other Cough Social History Household Members: Spouse Housing: House Are you a primary student career development specialist to a significant other at home: No Do you presently have visiting nurse or other home services: No Alcohol intake: former Patient Tobacco Use Status: Former Tobacco user Tobacco use type: Cigarette Years Smoked: (former smoker - onset 14yo, 1ppd x 46yrs, 45pyh, quit 2009) e-Cigarette/Vaping Use: Never Used Second Hand Smoke Exposure: No Advance Directives Date on File: 02/14/21 service: Yes ( [employer] - served in [facility]) Current occupational status: retired Current occupational exposures/hazards: Yes (was exposed to Agent [place] while serving in [employer]) Cognitive needs: No Hearing needs: Yes (hearing aide) Vision needs: No Physical Exam Vital Signs: Last Vital Signs Temp 97.0 F 06/25/24 10:47 Pulse 74 06/25/24 10:47 Resp 14 06/25/24 10:47 BP 122/70 06/25/24 10:47 Pulse Ox 95 06/25/24 10:47 Oxygen Delivery Method Simple Mask 06/25/24 10:47 BMI result Body Mass Index 33.4 Assessment & Plan Assessment & Plan (1) Acute bacterial sinusitis: Code(s): J01.90 - Acute sinusitis, unspecified; B96.89 - Other specified bacterial agents as the cause of diseases classified elsewhere (2) COPD (chronic obstructive pulmonary disease): Code(s): J44.9 - Chronic obstructive pulmonary disease, unspecified Qualifiers: COPD type: COPD with acute exacerbation Qualified Code(s): J44.1 - Chronic obstructive pulmonary disease with (acute) exacerbation Plan . Medications: New azithromycin For 250 mg dose pack: take 500 mg today (day 1), then 250 mg for 4 days (days 2-5) PO 6 tabs 0RF 5 days Discontinued prednisone Discontinued Reason: Patient Completed Course 50 mg PO DAILY 5 tabs 0RF J44.1 - Chronic obstructive pulmonary disease with (acute) exacerbation, R05.3 - Chronic cough Coding Level of Care Code Est Pt Level 4 (61213) Diagnoses Acute bacterial sinusitis J01.90; B96.89 Chronic obstructive pulmonary disease with acute exacerbation J44.1 COPD type: COPD with acute exacerbation
[2024-06-25 10:47] VITALS: BP 122/70; PULSE 74; RESP 14; TEMP 36.1; O2SAT 95; BMI 33.4
--- OUTSIDE RECORDS SUMMARY | 2024-06-26 00:33 | XMS_ITS | Encounter Summary ---
Author Name [facility] [place] [facility] [place] [facility] [place] Address [address] [place] [address] Care Team Providers Care Entry Table Operator Name Role Phone NIKOLAI FREY Primary Care Provider Unavailabl e PERCY BULLOCK Primary Care Provider Unavailabl e Insurance Providers: All historical and current Section Date Range: From patient's date of to the date document was created. This section includes the names of all active insurance providers for the patient. Insurance Provider Type of Coverage Plan Name Start of Policy Coverage End of Policy Coverage Group Number Member ID Insurance Provider's Telephone Number Policy Parekh's Name Patient's Relationship to Policy Parekh MEDICARE (WNR) MEDICARE (M) PART A Dec 14, 2012 PART A [id number] GENEVIEVE ARNOLD JR PATIENT MEDICARE (WNR) MEDICARE (M) PART B Dec 14, 2012 PART B [id number] GENEVIEVE ARNOLD PATIENT MEDICARE PART D (WNR) PRESCRIPT ION PART D Dec 14, 2012 PART D [id number] GENEVIEVE ARNOLD PATIENT [facility] (WNR) MEDICARE ADVANTAGE MCR(W NR) Jul 16, 2022 [id number] GENEVIEVE ARNOLD PATIENT [facility] (WNR) MEDICARE ADVANTAGE [facility] (WNR) Jul 16, 2017 [id number] GENEVIEVE ARNOLD PATIENT Selected Encounter This section includes the information on record at [place] for the Encounter. 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 Date/Time Primary/Secondary Diagnosis Diagnosis Name Provider Source Sep 24, 2023 04:25 PM PRIMARY Carcinoma in situ of bladder [facility] Sep 24, 2023 04:25 PM SECONDARY Chronic obstructive pulmonary disease, unspecified [facility] [place] Sep 24, 2023 04:25 PM SECONDARY Contact with and exposure to other hazardous substances [facility] Sep 24, 2023 04:25 PM SECONDARY Essential (primary) hypertension [facility] Sep 24, 2023 04:25 PM SECONDARY technician terminal and repeater (current) use of anticoagulants [facility] Sep 24, 2023 04:25 PM SECONDARY Other hyperlipidemia [facility] [place] Sep 24, 2023 04:25 PM SECONDARY Personal history of antineoplastic chemotherapy [facility] Sep 24, 2023 04:25 PM SECONDARY Personal history of COVID-19 [facility] Sep 24, 2023 04:25 PM SECONDARY Tinnitus, unspecified ear [facility] [place] Sep 24, 2023 04:25 PM SECONDARY Unsp intestnl obst, unsp as to partial versus complete obst [facility] [place] Sep 24, 2023 04:25 PM SECONDARY Unspecified atrial fibrillation [facility] [place] Sep 24, 2023 04:25 PM SECONDARY Unspecified chronic bronchitis [facility] [place] Sep 24, 2023 04:25 PM SECONDARY Unspecified sensorineural hearing loss [facility] Plan of Treatment: Future Appointments (+ 6 months) and Future Tests (+/- 45 days) The Plan of Treatment section includes future care activities for the patient from all [place] [facility]. This section includes future appointments and future orders which are active, pending or scheduled. Future Appointments This section includes appointments that were scheduled to occur 6 months from the date of the Encounter, up to a maximum of 20 appointments. The data comes from all [place] treatment facilities. Appointment Date/Time Appointment Type Appointme nt Facility Name Dec 20, 2023 11:00 AM AMBULATORY - REHAB MEDICIN E [facility] Mar 10, 2024 11:00 AM AMBULATORY - REHAB MEDICIN E [facility] Vital Signs: All taken on the encounter date This section contains inpatient and outpatient Vital Signs collected on the date of the Encounter. Date/Time Temperature Pulse Blood Pressure Respiratory Rate SP02 Pain Height Weight Body Mass Index Source Sep 24, 2023 01:06 PM 0 [facility] Sep 24, 2023 10:21 AM 0 [facility] Sep 24, 2023 09:26 AM 66 102/66 14 3 [facility] Sep 24, 2023 09:24 AM 98 65 129/86 18 97 3 66 206 33 [facility] Social History: Smoking Status (Most current) and Tobacco Use (All prior to encounter date) This section includes the most current, and the historical, smoking and tobacco- related health factors from the [place] facility where the Encounter took place. Current Smoking Status This section includes the most current smoking, or tobacco-related health factor, from the [place] facility where the Encounter took place. Date/Time Current Smoking Status Comment Facil ity Sep 24, 2023 09:00 AM [place]-TOBACCO FORMER USER [facility] Tobacco Use History This section includes a history of the smoking, or tobacco-related health factors, that were collected on or before the date of the Encounter. The data comes from the [place] facility where the Encounter took place. Date/Time Smoking Status/Tobacco Use Comment F acility Sep 24, 2023 09:00 AM VA-TOBACCO FORMER USER [facility] Sep 24, 2023 09:00 AM [place]-TOBACCO QUIT 5 TO < 15 YRS [facility] Advance Directives: All historical and current Section Date Range: From patient's date of to the date document was created. This section includes ALL of a patient's completed or amended [place] Advance and Rescinded Directives. The entries below indicate that a directive exists for the patient, but an actual copy is not included with this document. The data comes from all [place] facilities. Date Advance Directives Provider Source May 23, 2015 ADVANCE DIRECTIVE [facility] Encounter Notes: All associated encounter notes This section contains the clinical notes associated to the Encounter. Date/Time Encounter Note(s) Provider Source Sep 24, 2023 09:33 AM GERIATRIC MEDICINE INITIAL EVALUATION NOTE: LOCAL TITLE: GERIATRIC PACT NEW PATIENT EVALUATION STANDARD TITLE: GERIATRIC MEDICINE INITIAL EVALUATION NOTE DATE OF NOTE: SEP 24, 2023@09:33 ENTRY DATE: SEP 24, 2023@09:33:51 AUTHOR: NIKOLAI FREY COSIGNER: URGENCY: STATUS: COMPLETED CC: Establish care Type of evaluation: Comprehensive geriatric assessment HISTORY OF PRESENT ILLNESS: Patient is a 73 YO white MALE w/ a PMH significant for bladder cancer, essential HTN, HLD, Afib s/p ablation 2021 and cardioversion 2022, COPD, chronic bronchitis, hearing loss, tinnitus, SBO 2x, arthritis, and Covid 19 infection, who is new to the Geriatric clinic. The [facility] followed with [facility] and a [facility]- VA PCP in [place]. The has 1 ER visit, no recent hospitalizations, no falls. Today, the patient presents to establish care. He is accompanied by his Isela. Needs to establish care to be in the system. He is a snowbird from [place] and follows w/ the [facility], but also a non-VA PCP. Patient and his state that since the pt had Covid 19, all of his health problems became exacerbated. Mr. Arnold was hospitalized in [place] for tachycardia in December 2022, which was treated by cardioversion. When he started his treatment for bladder cancer, he had repeat infections and developed jaundice. Urologist investigated and found he had E. Coli. From what he tells me it sounds like he had ESBL. After the Covid booster he developed chronic bronchitis every 2-3 months. Cough is improved but still there. Using an inhaler. He had an episode of bronchitis 2 weeks ago, went to Urgent care, treated w/ Abx and prednisone. He has not required intubation. He does not use a rescue inhaler. He uses his inhalers through a chamber which is more effective for him. Mr. Arnold endorses agent orange exposure, and attributes bladder cancer to his exposure. He has had a long estrella with bladder cancer, including 17 surgeries and several previous treatments. Currently on chemo, last week was his first treatment, he has 5 weeks remaining. He follows w/ the [facility]. Mr. Arnold and his have been snowbirds to [place] for the past 12 years. They stay near [place] in an park and have a close network of friends. Endorses daily BM. He takes colace qpm and Miralax qam. He has had 2 SBOs in the past. No blood in BM. Medication list provided. Reaction to codeine, vomited. He follows w/ a non-VA PCP in [place]: - PCP: Dr. Agarwal Po - Oncologist: Dr. Caldera at [facility] for bladder cancer treatment ACTIVE PROBLEM LIST: - Bladder cancer - Essential HTN - HLD - Afib s/p ablation April 2022 - COPD, exacerbated since Covid - Hearing loss - SBO 2x - h/o Covid 19 infection - Arthritis (both knees partial replacement at [facility]) - ANALY adherent to CPAP GERIATRIC ASSESSMENT: -ADLs and IADLs: Independent in ADLs and IADLs. -Driving: Continues to drive without accidents, near misses, or getting lost -Exercise: Pickleball 2-3 mornings per week, walks, ride his bike. Counseled on exercise and healthy lifestyle. -Incontinence: No. He was told that his current chemo can cause leakage. -Vision: Does not wear glasses. He has had cataract surgery. Last eye exam: April 2023. Next exam December 2023. Yearly follow-up recommended. -Hearing: Endorses impairment and tinnitus. Wearing hearing aids. Yearly follow- up with Audiology. -Falls: 0. -Assistive device: No. -Gait and balance abnormality: No. -Diet: regular, good appetite. He says he's a snacker and likes sweets. Endorses a balanced diet. No malnutrition or unintended weight loss apart from when hospitalized for SBO he lost 15 lbs and has gained it back since then. -Dysphagia: No. -Memory: Endorses minor concerns/complaints w/ word recall. -Living situation: to his 2nd , lives with of 41 years, he has 2 adults daughters from his first marriage, and has good social support from family. -Alcohol: No, former alcoholic, he is in AA, last drink 40+ years ago. -Smoking: No, former 2 PPD smoker, began 10 YO, quit 12 years ago June 2012. -Recreational drug use: No. -Mood: stable mood, no depression or suicidal ideation. He is upset that because he has cancer related to agent orange, his kids are at risk of cancer. He is grateful that his 2 daughters and 4 grandkids are healthy. -Polypharmacy: no -Geriatric drug review: appropriate for medical conditions. No interactions or side effects. -Healthcare Goals: Just my breathing. Allergies/Adverse Reactions: CODEINE Medications Reconciled: Active Outpatient Medications (including Supplies): Active Non-VA Medications Status 1) Non-VA CETIRIZINE HCL 10MG TAB 5MG BY MOUTH EVERY DAY ACTIVE 2) Non-VA DOCETAXEL INJ,CONC INTRAVENOUSLY ACTIVE 3) Non-VA DOCUSATE NA 250MG CAP 250MG BY MOUTH EVERY DAY ACTIVE 4) Non-VA FLUTICAS 250/SALMETEROL 50 INHL DISK 60 1 PUFF ACTIVE BY MOUTH EVERY DAY 5) Non-VA GEMCITABINE HCL INJ INJ 200 MG INTRAVENOUSLY ACTIVE 6) Non-VA IPRATROPIUM NASAL SPRAY 0.03% 30 ML 1 SPRAY ACTIVE INTO EACH NOSTRIL EVERY DAY 7) Non-VA METOPROLOL SUCCINATE 100MG SA TAB 50MG BY ACTIVE MOUTH TWICE A DAY 8) Non-VA OMEPRAZOLE 20MG EC CAP 20MG BY MOUTH EVERY DAY ACTIVE 9) Non-VA POLYETHYLENE GLYCOL 3350 ORAL PWDR 17 GM (ONE ACTIVE CAPFUL) BY MOUTH EVERY DAY 10) Non-VA SIMVASTATIN 80MG TAB 40MG BY MOUTH AT BEDTIME ACTIVE 11) Non-VA TIOTROPIUM 18 MCG INHL CAP (PKG) 18MCG INHALE ACTIVE BY MOUTH EVERY DAY 12) Non-VA U/D APIXABAN 5MG TAB 5MG BY MOUTH EVERY 12 ACTIVE HOURS REVIEW OF SYSTEM: positives stated on HPI. General: No constitutional symptoms/weight gain or weight loss Eyes: No blurred vision, double vision, red eyes, itchy eye ENT: No runny nose, nosebleeds, tinnitus, hearing loss Neck: No masses, No stiffness Cardio: No chest pain, palpitations, pnd, orthopnea Resp: No SOB, CORDERO, Wheezing GI: No diarrhea, constipation, abdominal pain,changes in color of stool, melena MSK: No weakness arthralgias Skin: No rashes, lesions Neuro: No headaches, dizziness Psych: No depression, anxiety, suicidal ideation Endocrine: No polydipsia, polyuria polyphagia, weight gain/loss Hem: No lumps, bruises PHYSICAL EXAM: Vital Signs: Date Vital Measurement Qualifiers 09/24/2023 09:26 Pulse 66 Respir 14 BP 102/66 Pain 3 09/24/2023 09:24 Temp F (C) 98 (36.7) Oral Ht in (cm) 66 (167.64) Stated Wt lbs (kg)[BMI] 206 (93.44)[33*] Actual POx (L/Min)(%) 97 BMI: 33* CONSTITUTION: Well developed, pleasant and cooperative, no respiratory distress. Ambulates without assistance - Wearing baseball cap - Fair grooming HEENT: sclera clear, conjunctiva pink, PERRL, EOMI, TMs and canals clear, hearing grossly intact, oropharynx clear without lesions - Wearing hearing aides NECK: Supple, nontender. No thyromegaly, adenopathy or carotid bruit. RESP: Nonlabored, clear to auscultation bilaterally CV: Regular rate rhythm, no gallops, murmurs or rubs. S1, S2. PMI nondisplaced, no JVD. GI: Soft, nontender, nondistended, normoactive bowel sounds in four quadrants, no hernia, no hepatosplenomegaly, no bruits. Musc/Skel: No clubbing or edema., Dorsalis pedis and posterior tibialis pulses present and equal, Radial pulses present and equal, Strength grossly intact in the upper and lower extremities, Full ROM in upper and lower extremities NEURO: Strength 5/5 in upper and lower extremities, Alert and oriented to self, time and place SKIN: Warm, dry, Normal turgor, No petechiae, No rashes, No Jaundice. PSYCH: Speech content and affect appropriate. Judgment and insight, memory, and mood within normal limits ===== LABS: ===== NO RESULTS WITHIN LAST 2 YEARS ASSESSMENT / PLAN: MEDICAL DOMAIN //Bladder cancer - Currently treated and followed by the [facility]. - Continue Gemcitabine HCL 200 mg, and Docetaxel. - Pt denies any A/E of chemo; he states he was told that since it is an intravesicular infusion he may experience UI but he had his first treatment and did not. //Essential HTN - BP today 102/65 - Patient recommended to monitor BP at home and keep a BP log. - Patient reinforced on dietary modifications that are beneficial in the treatment of hypertension, including reduction of salt, moderation of alcohol, weight loss, and a Pesco-Mediterranean diet that emphasizes intake of vegetables, fruits, Low mercury fish, chicken w/o skin, Extra virgin olive oil and whole grains, legumes, and low-fat dairy products and low in snacks, sweets, meat, and saturated fat. - Also counseled on lifestyle modification, including not smoking and institution of an aerobic exercise regimen. //HLD - No recent lipid panel available. Pt agrees to present to lab today. - Continue Simvastatin 40 mg daily. //Afib s/p ablation 2021 and cardioversion 2022 - All care as per outside provider who manages chronic conditions. - Continue Eliquis 5 mg BID - Continue Metoprolol 50 mg BID //COPD //Chronic bronchitis - Continue Advair 250 50 Spiriva 1.25 mcg Ipratropium bromide .03 - Continue Zyrtekk //SBO 2x - Continue Colace - Encouraged at least 35 grams of fiber per day, and adequate hydration. //HCM - Colonoscopy: non-VA 5 years ago, normal. - LDCT: pt endorses having had this completed w/ his outside PCP. - AAA 11/28/2018: negative. - DEXA: not indicated. - PSA: not indicated. Immunizations: INFLUENZA, UNSPECIFIED FORMULATION APR 09, 2023 COVID-19 (vufind), MRNA, LNP-S, PF, 30 MCG/0.3 ML DOSE JUL 25, 2020 SERIES 1 COVID-19 (PFIZER), MRNA, LNP-S, PF, 30 MCG/0.3 ML DOSE AUG 15, 2020 SERIES 2 COVID-19 (vufind), MRNA, LNP-S, PF, 30 MCG/0.3 ML DOSE APR 11, 2021 SERIES 3 ZOSTER RECOMBINANT MAY 03, 2019 SERIES 1 ZOSTER RECOMBINANT JUN 03, 2019 SERIES 1 TDAP NOVEMBER 20, 2014 PNEUMOCOCCAL POLYSACCHARIDE PPV23 NOVEMBER 20, 2014 PNEUMOCOCCAL CONJUGATE PCV 13 APR 25, 2016 RSV, RECOMBINANT, PROTEIN SUBUNIT RSVPREF, ADJUVANT RECONSTITUTED, 0.5 ML, PF JUN 05, 2023 FUNCTIONAL DOMAIN //Hearing loss //Tinnitus - Continue follow up w/ audiology. -ADLs and IADLs: Independent in ADLs and IADLs. -Driving: Continues to drive without accidents, near misses, or getting lost -Exercise: Pickleball 2-3 mornings per week, walks, ride his bike. Counseled on exercise and healthy lifestyle. -Incontinence: No. He was told that his current chemo can cause leakage. -Vision: Does not wear glasses. He has had cataract surgery. Last eye exam: April 2023. Next exam December 2023. Yearly follow-up recommended. -Hearing: Endorses impairment and tinnitus. Wearing hearing aids. Yearly follow- up with Audiology. -Falls: 0. -Assistive device: No. -Gait and balance abnormality: No. -Diet: regular, good appetite. He says he's a snacker and likes sweets. Endorses a balanced diet. No malnutrition or unintended weight loss apart from when hospitalized for SBO he lost 15 lbs and has gained it back since then. -Dysphagia: No. -Polypharmacy: no -Geriatric drug review: appropriate for medical conditions. No interactions or side effects. -Healthcare Goals: Just my breathing. PSYCHOLOGICAL DOMAIN - Memory: Endorses minor concerns/complaints w/ word recall. //Former alcohol abuse disorder, SR //Former tobacco use disorder, SR - Alcohol: No, former alcoholic, he is in AA, last drink 40+ years ago. - Smoking: No, former 2 PPD smoker, began 10 YO, quit 12 years ago June 2012. - Recreational drug use: No. - Mood: stable mood, no depression or suicidal ideation. He is upset that because he has cancer related to agent orange, his kids are at risk of cancer. He is grateful that his 2 daughters and 4 grandkids are healthy. SOCIAL DOMAIN - Service history: did not address. - Toxic agent exposure screening: positive for agent orange. - Work history: [employer]. - Living situation: to his 2nd , lives with of 41 years, he has 2 adults daughters from his first marriage, and has good social support from family. //ADVANCE CARE PLANNING Next of Kin Information: Name: ISELA ARNOLD (EXTENDED FAMILY MEMBER) [address] [place] [address] Phone number: RTC In: 11 months Total Time Spent with the [place]: 1 hour Follow-Up Pos PTSD/Depression: I have reviewed the results of the Mental Health screens and have evaluated the patient. Based on the evaluation, the following disposition plan will be implemented: No further intervention is needed at this time. Contact information and instructions for accessing emergency services provided. Patient to be managed in Primary Care Patient declines further intervention or evaluation at this time. Contact information and instructions for accessing emergency services provided. Toxic Exposure Screening Follow-Up: Exposure Concern(s): 09/24/2023 Agent [place] - Toxic Exposure Concern Follow-up Question(s): 09/24/2023 No Questions - Toxic Exposure Concern /caregiver has health or medical concerns related to their concern of environmental exposure. Concern: bladder cancer The following connections were provided to the /caregiver: No connections needed at this time Initial Lung Cancer Screen (Provider): No clinical exclusions, patient is a current candidate for the lung cancer screening program. Patient declines lung cancer screening THIS YEAR ONLY. Lung cancer screening information provided. Comment: He did a LDCT with his non-VA PCP. Patient is a current cigarette smoker. SMOKING CESSATION DISCUSSED and offered, but patient does not want assistance at this time. Pain Management (Provider): Communicative and not cognitively impaired Does patient have pain? No Has the patient had recurring pain in the past 6 months? No Is the patient currently taking pain medications/adjunct meds? No Current Pain Score: 0 Return to Clinic Order: Return to clinic appointment ordered. COVID-19 Immunization: Refused Pfizer Monovalent COVID-19 vaccine Immunization: COVID-19 (PFIZER), MRNA, LNP-S, PF, JUDD-SUCROSE, 30 MCG/0.3 ML (AGES 12+ YEARS) Refusal Reason: PATIENT DECISION Patient refuses all immunization(s) in the COVID-19 group Date Documented: 09/24/23 13:05 CRC-Avg Risk Colorectal Cancer Scrn: AVERAGE RISK colorectal cancer screening is due based on information available to this clinical reminder Patient has arranged or is choosing to arrange this care independent of and without assistance from this [facility]. Falls Risk Assessment 65> PROV: Falls Risk Assessment Complete one of the following options: Timed Up and Go (preferred) Is at least 1 of the following present? - Fall with injury - More than 1 fall in past year - Gait, Strength or Balance Problem confirmed by assessmet No * Moderate Risk * 0 or 1 Fall without injury in the past year and normal gait and balance by assessment Education (e.g. Fall Prevention at home brochure) Vitamin D +/- Calcium Review Medications Osteoporosis screening as appropriate Evaluate Vision and refer as appropriate Glycemic Health Assessment: Diet/exercise/medication compliance reviewed with patient. Veterans last Healthy Living counseling occurred: DIETARY COUNSELING unknown Patients with diabetes will benefit from annual visit to assess education, nutrition and emotional needs. Nutrition therapy is highly effective in supporting diabetes self-management skills and in assisting with the management of related health conditions (ADA, 2018). We offer a range of options to support you in achieving your health and well-being goals. Plan: Patient educated to use My Plate: Diabetes Meal Planning: Plan Your Plate [place] [employer], Standards of Medical Care in Diabetes, 2018 Pain Management (Provider): Communicative and not cognitively impaired Does patient have pain? No Has the patient had recurring pain in the past 6 months? No Is the patient currently taking pain medications/adjunct meds? No Current Pain Score: 0 Alcohol Use Screen (AUDIT-C): Alcohol Screen: SCREEN FOR ALCOHOL (AUDIT-C) An alcohol screening test (AUDIT-C) was negative (score=0). 1. How often did you have a drink containing alcohol in the past year? Consider a drink to be a 12 ounce can or bottle of regular beer, 8 ounces of malt liquor, a 5 ounce glass of table wine, or a 1.5 ounce shot of liquor (like scotch, gin, or vodka). Never 2. How many drinks containing alcohol did you have on a typical day when you were drinking in the past year? Response not required due to responses to other questions. 3. How often did you have six or more drinks on one occasion in the past year? Response not required due to responses to other questions. Depression Screening: Perform PHQ-2 A PHQ-2 screen was performed. The score was 0 which is a negative screen for depression. Over the past two weeks, how often have you been bothered by the following problems? 1. Little interest or pleasure in doing things Not at all 2. Feeling down, depressed, or hopeless Not at all Follow-Up Pos PTSD/Depression: I have reviewed the results of the Mental Health screens and have evaluated the patient. Based on the evaluation, the following disposition plan will be implemented: Patient declines further intervention or evaluation at this time. Contact information and instructions for accessing emergency services provided. Functional Activity Screen : BUSTAMANTE ADL BUSTAMANTE score: 18 1. Bathing: either sponge bath, tub bath or shower. Receives no assistance (gets in and out of tub by self, if tub is usual means of bathing). 2. Dressing: gets clothes from closets and drawers, including under-clothes, outer garments and using fasteners (including braces if worn). Gets clothes and dresses self without assistance. 3. Toileting: going to the toilet room for bowel and urine elimination; cleaning self after elimination and arranging clothes. (May use cane, walker, or wheelchair, and manage bedpan or commode, emptying same next morning). No assistance needed. 4. Transfer: Moves in and out of bed, or chair, without assistance (may use support object like cane or walker). 5. Continence: Controls urination and bowel movement completely by self. 6. Feeding: Feeds self without assistance. Index score possible range is 6 to 18. A high index indicates independence, a low index means dependence on others to help with activities of daily living. EMMA IADL EMMA score: 8 1. Ability to use telephone Operates telephone on own initiative; looks up and dials numbers, etc. 2. Shopping Takes care of all shopping needs independently. 3. Food Preparation Plans, prepares and serves adequate meals independently. 4. Housekeeping Maintains house alone or with occasional assistance (e.g. heavy work domestic help). 5. Laundry Does personal laundry completely. 6. Mode of Transportation Travels independently on public transportation or drives own car. 7. Responsibility for own medications Is responsible for taking medication in correct dosages at correct time. 8. Ability to Handle Finances Manages financial matters independently (budgets, writes checks, goes to bank). FALLS EVALUATION History of fall/s in the past 12 months: (No) DO YOU OFTEN ASK PEOPLE TO REPEAT WHAT THEY ARE SAYING OR DO PEOPLE COMPLAIN YOU HAVE THE TV/RADIO TOO LOUD? No DO YOU HAVE PROBLEMS READING? No Tobacco Pack Year History: Patient used cigarettes in the past, but quit and does not currently use them: Quit smoking LESS THAN 15 years. Year the patient quit smoking: Date: 2011 ? Exact date is unknown How many years has the patient smoked? # of years 51 Average number of packs/day over the entire time patient smoked: Packs/day 2 Missing Patient Risk Assessment: Provider Wandering and Missing Patient Assessment: Patient is considered at-risk for wandering or missing status: Not Applicable (Not at risk) Environmental or clinical factors which may increase the patient's vulnerability and potential for harm or injury: Not Applicable (Not at risk) This patient has been determined to be NOT AT RISK (Absent) for wandering and/or missing status. 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 Printed information was offered and provided if desired. No questions at this time Sanborn/caregiver was informed of local points of contact. Contact information for local resources: Enrollment and Eligibility - Yonny Paulino ext [phone] Environmental Health and Registry - Melisa Damico ext [phone] [facility] for Toxic Exposure Screening - Krysta Millard ext [phone] Questions can be sent to: Toxic Exposure Screening Follow-Up reminder is needed. Name of person notified: Nikolai Frey Toxic Exposure Screening Follow-Up: Exposure Concern(s): 09/24/2023 Agent Vanderburgh - Toxic Exposure Concern Follow-up Question(s): 09/24/2023 No Questions - Toxic Exposure Concern Sanborn/caregiver has health or medical concerns related to their concern of environmental exposure. Concern: agent orange The following connections were provided to the /caregiver: No connections needed at this time WHAT MATTERS What Matters was addressed at this visit. MEDICATION Medications were addressed at this visit. MENTATION Depression was addressed at this visit. MENTATION Dementia was addressed at this visit. MENTATION Delirium was addressed at this visit. MOBILITY -------- Mobility was addressed at this visit. /kristen/ NIKOLAI FREY MD, MPH, [facility] Physician Signed: 09/24/2023 16:25 NIKOLAI FREY [facility] Sep 24, 2023 09:05 AM NURSING OUTPATIENT NOTE: LOCAL TITLE: NURSING OUTPATIENT PACT NOTE STANDARD TITLE: NURSING OUTPATIENT NOTE DATE OF NOTE: SEP 24, 2023@09:05 ENTRY DATE: SEP 24, 2023@09:05:14 AUTHOR: ALE GONZALEZ EXP COSIGNER: URGENCY: STATUS: COMPLETED PACT Patient Presents to clinic as: * Follow Up On arrival patient was: Alert and oriented x3 Mobility: Ambulatory Location: PACT/Geriatric Time of arrival in treatment area: Sep@09:05 (Most Recent Vitals) VSD - Detailed Vitals No data available Is Blood Pressure > or equal to 140/90 Yes Hypertension elevated blood pressure screening Repeat blood pressure: 102/66 Pulse: 66 Respiration: 14 The patient was counseled on the importance of regular exercise and/or physical activity in the control of blood pressure. The patient was instructed to try to participate in 120 minutes of aerobic exercise per week if possible and that any increase in physical activity may be useful in controlling blood pressure. Incorportate physical activity and healthy living as tolerated CHIEF COMPLAINT: Would like to be registered as a travel vet. Request for to be enrolled in [facility] SCREENINGS: Alcohol Use Screen (AUDIT-C) Alcohol Screen: SCREEN FOR ALCOHOL (AUDIT-C) An alcohol screening test (AUDIT-C) was negative (score=0). 1. How often did you have a drink containing alcohol in the past year? Consider a drink to be a 12 ounce can or bottle of regular beer, 8 ounces of malt liquor, a 5 ounce glass of table wine, or a 1.5 ounce shot of liquor (like scotch, gin, or vodka). Never 2. How many drinks containing alcohol did you have on a typical day when you were drinking in the past year? Response not required due to responses to other questions. 3. How often did you have six or more drinks on one occasion in the past year? Response not required due to responses to other questions. Depression Screening Perform PHQ-2 A PHQ-2 screen was performed. The score was 1 which is a negative screen for depression. Over the past two weeks, how often have you been bothered by the following problems? 1. Little interest or pleasure in doing things Not at all 2. Feeling down, depressed, or hopeless Several days Falls Risk Evaluation Falls Risk Evaluation Have you had a fall in the past year? No Do you feel unsteady when standing or walking? No Do you worry about falling? Yes Did you answer yes to any of the questions above? Yes Refer to Primary Care Provider for Fall Risk Assessment. Pain Information (Nurse) Communicative and not cognitively impaired Does patient have pain? Yes Recurring pain: Has recurrent pain been previously addressed? Yes Patient reports the following pain location: Foot Comment: LEFT, RIGHT Shoulder Comment: RIGHT Current Pain Score: 3 Personalized pain goal has been met/not met: Personalized pain goal not met Is the patient currently taking pain medications/adjunct meds? No Nursing Pain Intervention/Plan Notify Provider Relaxation techniques Position changes Distraction techniques Heat Cold Functional/Physical Activity Screen BUSTAMANTE ADL BUSTAMANTE score: 17 1. Bathing: either sponge bath, tub bath or shower. Receives no assistance (gets in and out of tub by self, if tub is usual means of bathing). 2. Dressing: gets clothes from closets and drawers, including under-clothes, outer garments and using fasteners (including braces if worn). Gets clothes and dresses self without assistance. 3. Toileting: going to the toilet room for bowel and urine elimination; cleaning self after elimination and arranging clothes. (May use cane, walker, or wheelchair, and manage bedpan or commode, emptying same next morning). No assistance needed. 4. Transfer: Moves in and out of bed, or chair, without assistance (may use support object like cane or walker). 5. Continence: Has occasional accidents of urination or bowels. 6. Feeding: Feeds self without assistance. EMMA IADL EMMA score: 7 1. Ability to use telephone Operates telephone on own initiative; looks up and dials numbers, etc. 2. Shopping Takes care of all shopping needs independently. 3. Food Preparation Plans, prepares and serves adequate meals independently. 4. Housekeeping Maintains house alone or with occasional assistance (e.g. heavy work domestic help). 5. Laundry All laundry must be done by others. 6. Mode of Transportation Travels independently on public transportation or drives own car. 7. Responsibility for own medications Is responsible for taking medication in correct dosages at correct time. 8. Ability to Handle Finances Manages financial matters independently (budgets, writes checks, goes to bank). FALLS EVALUATION History of fall/s in the past 12 months: (No) DO YOU OFTEN ASK PEOPLE TO REPEAT WHAT THEY ARE SAYING OR DO PEOPLE COMPLAIN YOU HAVE THE TV/RADIO TOO LOUD? Yes DO YOU HAVE PROBLEMS READING? No PTSD Screening PC-PTSD-5 A PTSD screening test (PC-PTSD-5) was positive (score=4). IN THE PAST MONTH, have you ever had any experience that was so frightening, horrible or traumatic. For example: A serious accident or fire a physical or sexual assault or abuse An earthquake or flood A war Seeing someone be killed or seriously injured Having a loved one through homicide or suicide 1. Have you ever experienced this kind of event? YES 2. Had nightmares about the event(s) or thought about the event(s) when you did not want to? YES 3. Tried hard not to think about the event(s) or went out of your way to avoid situations that reminded you of the event(s)? YES 4. Been constantly on guard, watchful, or easily startled? YES 5. Helen numb or detached from people, activities, or your surroundings? YES 6. Helen guilty or unable to stop blaming yourself or others for the event(s) or any problems the event(s) may have caused? NO Licensed Independent Provider notified of positive screen and need for follow-up. Name of provider notified: [facility] Patient denies having any of the above issues. Suicide Screen C-SSRS Screening [place] Suicide Severity Rating Scale (C-SSRS) screener 1. Over the past month, have you wished you were or wished you could go to sleep and not wake up? No 2. Over the past month, have you had any actual thoughts of killing yourself? No 3. Over the past month, have you been thinking about how you might do this? Response not required due to responses to other questions. 4. Over the past month, have you had these thoughts and had some intention of acting on them? Response not required due to responses to other questions. 5. Over the past month, have you started to work out or worked out the details of how to kill yourself? Response not required due to responses to other questions. 6. If yes, at any time in the past month did you intend to carry out this plan? Response not required due to responses to other questions. 7. In your lifetime, have you ever done anything, started to do anything, or prepared to do anything to end your life (for example, collected pills, obtained a gun, gave away valuables, went to the roof but didn't jump)? No 8. If YES, was this within the past 3 months? Response not required due to responses to other questions. Tobacco Use Screening The patient is a former tobacco user. The patient quit five to less than fifteen years ago. LCS Tobacco Pack Year Former cigarette smoker but now quit: Quit smoking LESS THAN 15 years. Year the patient quit smoking: Date: June, ? Exact date is unknown How many years has the patient smoked? 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 Printed information was offered and provided if desired. No questions at this time /caregiver was informed of local points of contact. Contact information for local resources: Enrollment and Eligibility - Yonny Paulino ext. [phone] Environmental Health and Registry - Melisa Damico ext. [phone] [facility] for Toxic Exposure Screening - Krysta Millard ext. [phone] Questions can be sent to: Toxic Exposure Screening Follow-Up reminder is needed. Name of person notified: Shante Patients language preference for health information is: [place] What is your preferred method(s) for learning/receiving information about your health? Reading Online Learning Identified barriers/influences that may affect teaching/learning Hearing >>> Hearing loss, Other: Tinnitus Strategies: >>> Hearing aid >>> No barriers identified Motivation and readiness to learn: Yes, ready to learn at this time Person/s taught: Patient Education Topics: Condition/Illness/Prevention: *Goal/Response: Verbalized understanding/Teach-back Teaching method used: >>> One-to-one verbal with patient Chronic Diseases Hyperlipidemia Resource High Cholesterol: Assessing Your Risk was provided. Hypertension Resource Hypertension What is High Blood Pressure was provided. Resource Home Blood Pressure Monitoring was provided. Medications Weight Management Exercise Compliance Follow Up Care Diet and Nutrition *Goal/Response: Verbalized understanding/Teach-back Teaching method used: >>> One-to-one verbal with patient Diet and Nutrition: Resource 4 Steps for Eating Healthier was provided. Resource High Fiber Diet was provided. Resource Tips for Using less Salt was provided. *Goal/Response: Verbalized understanding/Teach-back Teaching method used: >>> One-to-one verbal with patient Exercise: *Goal/Response: Verbalized understanding/Teach-back Teaching method used: >>> One-to-one verbal with patient Falls Prevention: *Goal/Response: Verbalized understanding/Teach-back Teaching method used: >>> One-to-one verbal with patient Follow Up Care: *Goal/Response: Verbalized understanding/Teach-back Teaching method used: >>> One-to-one verbal with patient Infection Prevention (Isolations, MDRO, SSI, VAP, CAUTI, CLABSI, Hand Washing) Preventions: Hand Washing *Goal/Response: Verbalized understanding/Teach-back Teaching method used: >>> One-to-one verbal with patient Medications: Medication Review: Print Topic Level material reviewed/ of skill/ provided discussed understanding [ ] [ ] Good Pain Management: Resource Managing Chronic Pain with Exercise was provided. Resource Chronic Pain Education Videos was provided. *Goal/Response: Verbalized understanding/Teach-back Teaching method used: >>> One-to-one verbal with patient Sanborn instructed to call the Crisis Hotline by dialing . Education Resources: Disease Specific Handout Fall Prevention at Home Prevention Calendar Homelessness/Food Insecurity Screen: In the past 2 months, have you been living in stable housing that you own, rent, or stay in as part of a household? Yes - Living in stable housing. Are you worried or concerned that in the next 2 months you may NOT have stable housing that you own, rent, or stay in as part of a household? No - Not worried about housing near future The Sanborn reports the following: Within the past 12 months, you worried whether your food would run out before you got money to buy more. Never true Within the past 12 months, the food you bought just didn't last and you didn't have money to get more. Never true Missing Patient Risk Assessment: Nursing Wandering and Missing Patient Assessment: Patient is considered at-risk for wandering or missing status: Not Applicable (Not at risk) Hepatitis C Testing: Patient declines HCV lab test. HIV Screening: The patient declines to be tested for HIV infection. The patient does not have any recent or ongoing risk behaviors for HIV and has been tested more recently than any risky behavior. PrEP should be considered for very high risk patients: Link to Summary of Guidance for PrEP Use Abuse/Neglect/Exploitation Screen: ABUSE/NEGLECT/EXPLOITATION Injuries/bruising does not match the history NA [place], rope, or restraint howard NO Signs of malnutrition, neglect or exploitation NO Torn, stained, or bloody underclothing NOT ASSESSED Bruising to genital area NOT ASSESSED Have you been controlled or coerced by another person to exchange sex or commit an illegal activity for money or material goods including food, nursing home, alcohol and/or drugs? NO Is anyone taking your money, your check or your assets and using it for their own personal benefit? NO Patient has none of the above signs of abuse/neglect/exploitation. Sexual Orientation: The patient thinks of their sexual orientation as: Straight or Heterosexual /kristen/ ALE AROLDO GONZALEZ LPN Signed: 09/24/2023 09:31 ALE GONZALEZ [facility]
--- OUTSIDE RECORDS SUMMARY | 2024-06-26 00:33 | XMS_ITS | Encounter Summary ---
Author Name [facility] Organization [facility] Address [address] [place] [id number] Care Team Providers Care Tool Analyst Name Role Phone LAURENT ROBLES Primary Care Provider Unavailabl e PERCY BLULOCK Primary Care Provider Unavailabl e Insurance Providers: [...] PART A Dec 14, 2012 PART A [id number] GENEVIEVE ARNOLD JR PATIENT MEDICARE (WNR) MEDICARE (M) PART B Dec 14, 2012 PART B [id number] GENEVIEVE ARNOLD PATIENT MEDICARE PART D (WNR) PRESCRIPT ION PART D Dec 14, 2012 PART D [id number] GENEVIEVE ARNOLD PATIENT [facility] (WNR) MEDICARE ADVANTAGE [employer](W NR) Jul 16, 2022 [id number] GENEVIEVE ARNOLD PATIENT [facility] (WNR) MEDICARE ADVANTAGE [employer] (WNR) Jul 16, 2017 [id number] GENEVIEVE ARNOLD PATIENT Selected Encounter This section includes the information on record at [place] for the Encounter. Date/Time Encounter Type Encounter Description Reason Pro vider Source Sep 20, 2023 01:50 PM Outpatient Encounter PRIMARY CARE/MEDICINE IHE Encounter Template Text not used by [place] Plan of Treatment: Future Appointments (+ 6 months) and Future Tests (+/- 45 days) The Plan of Treatment section includes future care activities for the patient from all [place] treatmentfacilities. This section includes future appointments and future orders which are active, pending or scheduled. Future Appointments This section includes appointments that were scheduled to occur 6 months from the date of the Encounter, up to a maximum of 20 appointments. The data comes from all [place] treatment facilities. Appointment Date/Time Appointment Type Appointme nt Facility Name Sep 24, 2023 09:00 AM [facility]BULATORY - [facility]INE [facility] Dec 20, 2023 11:00 AM AMBULATORY - [facility]AB [facility] Mar 10, 2024 11:00 AM AMBULATORY - REHAB [facility] Advance Directives: All historical and current Section Date Range: From patient's date of to the date document was created. This section includes ALL of a patient's completed or amended [place] Advance and Rescinded Directives. The entries below indicate that a directive exists for the patient, but an actual copy is not included with this document. The data comes from all [facility]. Date Advance Directives Provider Source May 23, 2015 ADVANCE DIRECTIVE AMBER PENA [facility] Encounter Notes: All associated encounter notes This section contains the clinical notes associated to the Encounter. Date/Time Encounter Note(s) Provider Source Sep 20, 2023 02:13 PM IMMUNIZATION NOTE: LOCAL TITLE: IMMUNIZATION NOTE STANDARD TITLE: IMMUNIZATION NOTE DATE OF NOTE: SEP 20, 2023@14:13 ENTRY DATE: SEP 20, 2023@14:13:05 AUTHOR: ALE GONZALEZ EXP COSIGNER: URGENCY: STATUS: COMPLETED IMMUNIZATION HISTORY ADMINISTERED Immunization Series Date Facility Reaction Info PNEUMOCOCCAL POLYSACCHARIDE PPV23 11/20/2014 [facility] TDAP [facility]/20/2014 [facility] PNEUMOCOCCAL CONJUGATE PCV 13 04/25/2016 [facility] ZOSTER RECOMBINANT 1 05/03/2019 [facility] COVID-19 (PFIZER), MRNA, LNP-S, * 1 07/25/2020 [facility] COVID-19 (PFIZER), MRNA, LNP-S, * 2 08/15/2020 [facility]* COVID-19 (PFIZER), MRNA, LNP-S, * 3 04/11/2021 [facility] INFLUENZA, UNSPECIFIED FORMULATI* 04/09/2023 [facility] CONTRAINDICATED No data available REFUSED ======= No data available * Value is truncated; see the Detailed Immunizations Health Summary Component[DIM] for complete text [employer] RESPIRATORY SYNCYTIAL VIRUS (RSV) VACCINE Respiratory Syncytial Virus (RSV) Vaccine: Patient received a prior dose of GlaxoSmith[employer] RSV vaccine. Documented: RSV, RECOMBINANT, PROTEIN SUBUNIT RSVPREF, ADJUVANT RECONSTITUTED, 0.5 ML, PF Historical Date Administered: Jun 05, 2023 Outside Location: [facility] Information Source: FROM OTHER REGISTRY /[email or web address]/ ALE GONZALEZ LPN Signed: 09/20/2023 14:14 ALE GONZALEZ [facility] Sep 20, 2023 01:50 PM CHILD AND FAMILY THERAPIST NOTE: LOCAL TITLE: PRE VISIT SCRUB NOTE STANDARD TITLE: CHILD AND FAMILY THERAPIST NOTE DATE OF NOTE: SEP 20, 2023@13:50 ENTRY DATE: SEP 20, 2023@13:50:53 AUTHOR: ALE GONZALEZ EXP COSIGNER: URGENCY: STATUS: COMPLETED Face to Face Visit Two approved identifiers verified. Confirmed appointment date and time. Sep@09:00 [facility] PROVIDER 1 Does patient express interest in Covid-19 Vaccination? NO: Patient is not interested in Covid-19 Vaccine. Patient was reminded to have labs done prior to appointment date. If unable to come prior, he/she was instructed to plan on arriving early on the day of appointment and report to the lab. Comment: New Patient has been admitted or had an ER visit in the past 6 months. - Patient reminded to bring outside records to visit. Comment: [place], [place] Patient does not require a Caregiver for upcoming visit(s). Patient reminded of the following: - Have blood pressure log available if hypertensive - Have blood sugar log available if diabetic - Bring valid ID for MAS to update demographics - Do not drink any caffeinated drinks - Empty bladder before visit - [place] for [facility] - Take medications the morning of visit, as directed. - Have medications available at visit Active and Recently Outpatient Medications (including Supplies): No Medications Found Nurse PACT Reminders --STATUS-- --DUE DATE-- --LAST DONE-- CRC-Avg Risk Colorectal Cancer Scrn DUE NOW DUE NOW unknown Depression Screening DUE NOW DUE NOW unknown Falls Risk Assessment (Nurse) DUE NOW DUE NOW unknown Functional Activity Screen DUE NOW DUE NOW unknown Hepatitis C Testing DUE NOW DUE NOW unknown Herpes Zoster (Shingles) Vaccine DUE NOW DUE NOW unknown Influenza Immunization DUE NOW DUE NOW unknown PAIN INFORMATION DUE NOW DUE NOW unknown Pneumococcal Conjugate Vaccine DUE NOW DUE NOW unknown (PCV15/PCV20) PTSD DUE NOW DUE NOW unknown Stress and Coping DUE NOW DUE NOW unknown Influenza Immunization The patient has received the seasonal influenza vaccine for the current season at another location. Documented: INFLUENZA, UNSPECIFIED FORMULATION Historical Date Administered: Apr 09, 2023 Outside Location: [place]: [facility] Information Source: FROM PATIENT'S WRITTEN RECORD COVID-19 Immunization: Pfizer Patient received a prior dose of the Pfizer COVID-19 Vaccine. Documented: COVID-19 (PFIZER), MRNA, LNP-S, PF, 30 MCG/0.3 ML DOSE Historical Date Administered: Jul 25, 2020 Series: Series 1 Outside Location: [place]: [place], [place] Information Source: FROM PATIENT'S WRITTEN RECORD Patient received a prior dose of the Pfizer COVID-19 Vaccine. Documented: COVID-19 (PFIZER), MRNA, LNP-S, PF, 30 MCG/0.3 ML DOSE Historical Date Administered: Aug 15, 2020 Series: Series 2 Outside Location: [place] Information Source: FROM PATIENT'S WRITTEN RECORD Patient received a prior dose of the Pfizer COVID-19 Vaccine. Documented: COVID-19 (PFIZER), MRNA, LNP-S, PF, 30 MCG/0.3 ML DOSE Historical Date Administered: Apr 11, 2021 Series: Series 3 Outside Location: [place]: [place] Information Source: FROM PATIENT'S WRITTEN RECORD Herpes Zoster (Shingles) Vaccine: Prior Herpes Zoster vaccination Herpes zoster (shingles) vaccine given previously - written records available Zoster Recombinant (Shingrix): Documented: ZOSTER RECOMBINANT Historical Date Administered: May 03, 2019 Series: Series 1 Outside Location: [facility] Information Source: FROM OTHER REGISTRY Tdap Immunization: Td/Tdap given previously - written records available The patient has previously received the Tetanus, Diphtheria, Pertussis vaccine (Tdap). Documented: TDAP Historical Date Administered: November 20, 2014 Outside Location: [place]: [place] Information Source: FROM PATIENT'S WRITTEN RECORD Pneumococcal Conjugate Vaccine (PCV15/PCV20): Pneumococcal vaccine given previously - written records available Documented: PNEUMOCOCCAL POLYSACCHARIDE PPV23 Historical Date Administered: November 20, 2014 Outside Location: [facility], Information Source: FROM PATIENT'S WRITTEN RECORD Documented: PNEUMOCOCCAL CONJUGATE PCV 13 Historical Date Administered: Apr 25, 2016 Outside Location: [place]: [place] Information Source: FROM PATIENT'S WRITTEN RECORD /[email or web address] GONZALEZ LPN Signed: 09/20/2023 14:12 ALE GONZALEZ [facility]
--- OUTSIDE RECORDS SUMMARY | 2024-06-26 00:33 | XMS_ITS | Continuity of Care Document ---
Author Name [facility] Organization [facility] Care Team Providers Care House Mother Name Role Phone [facility] Unavailable Unavailable Problems Combined list of problems from Department of Defense and Veterans Affairs facilities. It does not include entries that were removed or entered in error. Problem Status Onset Date Problem Type Date of Resolution Comments Source Adult screening status Active Condition December 12, 2018 Entered By: EMMANUEL JI Comment: 11/2018 - No evidence of abdominal aortic aneurysm. [facility] AF - Atrial fibrillation Active Condition [facility] Allergy Active Condition [facility] Arrhythmia Active Condition Apr 04 019 Entered By: EMMANUEL JI Comment: MED: Metoprolol / taper off flecainide( start 02/2019)Apr 04, 2019 Entered By: EMMANUEL JI Comment: Per pt - hx of left bundle block [facility] Bladder cancer Active Condition Dec 142016 Entered By: JORGE MONTESINOS Comment: TURB procedures x 5. Diagnosed in 2012. [facility] Chronic obstructive pulmonary disease Active Condition [facility] Does use hearing aid Active Condition [facility] Exposure to potentially hazardous substance (SCT [id number]) Active Condition Oct 18 4 Entered By: LIUDMILA SUBRAMANIAN Comment: Entered automatically through [facility] Problem List documentation program [facility] Exposure to potentially hazardous substance (SCT [id number]) Active Condition Apr 15 4 Entered By: AMISHA GÓMEZ Comment: Entered automatically through [facility] Problem List documentation program [facility] 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 [facility] Gastroesophageal reflux disease Active Condition [facility] History of alcohol abuse Active Condition Apr 04, 2019 Entered By: EMMANUEL IJ Comment: sober for more than 38 yrs [facility] History of surgery Active Condition M 2018 Entered By: EMMANUEL JI Comment: multiple cystoscopy - every 3 months ( x urologist- bernardo/ VICKI)December 12, 2018 Entered By: EMMANUEL JI Comment: multiple cyst excised - scrotum/ neck - 2018 Entered By: EMMANUEL JI Comment: 2019- left knee arthroplasty [facility] Hyperlipidemia Active Condition [facility] Posttraumatic stress disorder Active Condition [facility] Sleep apnea Active Condition Jan 21, 2018 Entered By: EMMANUEL JI Comment: PER VISIT 01/21/18 - ANNUAL VISIT (CWM/NO/PACT 8 )December 12, 2018 Entered By: EMMANUEL JI Comment: CPAP auto PAP mode 5-15 cm - h20 humidified - air lifetime ( DR BLANTON) - non VA script [facility] Under care of multiple providers Active Condition December 12 019 Entered By: EMMANUEL JI Comment: DR Corrie BLANTON ( [facility]) - visit 12/11/18Ju2017 Entered By: EMMANUEL JI Comment: [place] - SEE REPAIRER [employer] WHEN IN [place] ( JUN THRU NOVEMBER )Apr 30, 2018 Entered By: EMMANUEL JI Comment: NON VA DERMATOLOGY -December 12, 2018 Entered By: EMMANUEL JI Comment: NON [facility] urologist ( [place] ( [facility]- DR Del Valle / Lenin COHEN - DR Rangel [facility] Atrial fibrillation Inactive Condition 04/04/2019 [facility] Diagnosis: ICD-10-CM Z46.1 Encounter for fitting and adjustment of hearing aid Active Diagnosis [facility] Diagnosis: ICD-10-CM J44.9 Chronic obstructive pulmonary disease, unspecified Active Diagnosis [facility] Diagnosis: ICD-10-CM I48.91 Unspecified atrial fibrillation Active Diagnosis [facility] Diagnosis: ICD-10-CM H90.3 Sensorineural hearing loss, bilateral Active Diagnosis [facility] Diagnosis: ICD-10-CM 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 Medication Details Route Status Patient Instructions Prescription Expires Prescription Number Last Dispense Date Ordering Provider Order Date Order Qty Source ALBUTEROL SO4 0.083% INHL,3ML INHALE 1 AMPULE IN NEBULIZE R EVERY 4 HOURS NEEDED FOR BRONCHOS PASM FOR BREATHIN G RESPIR ATORY (INHAL ATION) ACTIVE 04/18/2025 [id number] PERCY BULLOCK 2023 60 [facility] [place] APIXABAN 5MG TAB TAKE ONE TABLET BY MOUTH EVERY 12 HOURS ORAL ACTIVE RA DARREN RODRIGUEZ 2021 [facility] [place] APIXABAN 5MG TAB TAKE ONE TABLET BY MOUTH EVERY 12 HOURS ORAL ACTIVE AZARBSharyn RAZO 2023 [facility] ASPIRIN 81MG TAB,EC TAKE ONE TABLET BY MOUTH TWICE DAILY ORAL complet Mike Martinez 2018 [facility] CETIRIZINE HCL 10MG TAB TAKE ONE-HALF TABLET BY MOUTH EVERY DAY ORAL ACTIVE AZARBALSharyn 2023 [facility] DOCETAXEL INJ,CONC INJECT INTRAVEN OUSLY INTRAV ENOUS ACTIVE AZARBALJ KOTA 2023 [facility] DOCUSATE NA 250MG CAP TAKE 1 CAPSULE BY MOUTH EVERY DAY ORAL ACTIVE AZARBALSharyn 2023 [facility] FLUTICASONE 250MCG/SALM ETEROL 50MCG INHL,ORAL,D ISKUS,60 INHALE 1 PUFF BY MOUTH EVERY DAY ORAL ACTIVE AZARBALSharyn 2023 [facility] GEMCITABINE HCL INJ INJ INJECT 200 MG INTRAVEN OUSLY INTRAV ENOUS ACTIVE AZARBALSharyn ESCUDERO 2023 [facility] IPRATROPIUM BR 0.03% SOLN,SPRAY, NASAL 1 SPRAY INTO EACH NOSTRIL EVERY DAY NASAL ACTIVE AZAADANSharyn GUERRA2023 [facility] METOPROLOL SUCCINATE 100MG TAB,SA TAKE ONE-HALF TABLET BY MOUTH TWICE A DAY ORAL ACTIVE AZAADANSharyn GUERRA2023 [facility] METOPROLOL TARTRATE 50MG TAB TAKE ONE TABLET BY MOUTH TWICE DAILY ORAL ACTIVE PETROFF,S 2018 [facility] OMEPRAZOLE 20MG CAP,EC TAKE 1 CAPSULE BY MOUTH EVERY DAY ORAL ACTIVE AZARBALSharyn GUERRA2023 [facility] OMEPRAZOLE 20MG CAP,EC TAKE 1 CAPSULE BY MOUTH EVERY MORNING 30 MINUTES BEFORE BREAKFAS T ORAL ACTIVE PETROFF,S 2018 [facility] POLYETHYLEN E GLYCOL 3350 PWDR,ORAL TAKE 17 GM (ONE CAPFUL) BY MOUTH EVERY DAY ORAL ACTIVE MARGARETSharyn GUERRA2023 [facility] PREDNISONE 20MG TAB TAKE TWO TABLETS BY MOUTH ONCE DAILY COPD FLARE ORAL 05/11/2024 [id number] PERCY BULLOCK 2023 10 [facility] SIMVASTATIN 80MG TAB TAKE ONE-HALF TABLET BY MOUTH AT BEDTIME ORAL ACTIVE PETROFF,S 2018 [facility] SIMVASTATIN 80MG TAB TAKE ONE-HALF TABLET BY MOUTH AT BEDTIME ORAL ACTIVE CLAUDIAPEDRITODANNISharyn GUERRA2023 [facility] TIOTROPIUM 18MCG CAP,INHL,30 INSERT 1 CAPSULE INTO AEROLIZE R AND INHALE BY MOUTH EVERY DAY RESPIR ATORY (INHAL ATION) ACTIVE MARGARETSharyn 2023 [facility] Allergies, Adverse Reactions, Alerts Combined list of allergies from Department of Defense and Veterans Affairs facilities. It does not include entries that were removed or entered in error. Substance Category Reaction Severity Reaction type Status Date Reported Comments Source AMOXICILLIN Propensity to adverse reactions to drug (finding) Jaundice SEVERE active 4 [facility] CODEINE Propensity to adverse reactions to drug (finding) Nausea and vomiting active 4 [facility] [place] Propensity to adverse reactions to drug (finding) Eruption active 2 [facility] Immunizations Combined list of available immunizations from the Department of Defense and Veterans Affairs facilities. Immunization Series Date Given Administered By Site Reaction Lot Number CVX Code Drug Chief Pharmacist Status Comments Source INFLUENZA, HIGH-DOSE, TRIVALENT, PF 2023 ALEC BENTLYE RIGHT DELTO ID [id number] 135 complet ed [facility] RSV, BIVALENT, PROTEIN SUBUNIT RSVPREF, DILUENT RECONSTITUTED , 0.5 ML, PF 2023 MCALEC L LEFT DELTO ID [id number] 305 complet ed Sterile water diluent Lot #- [id number] 11/2024 [facility] RSV, RECOMBINANT, PROTEIN SUBUNIT RSVPREF, ADJUVANT RECONSTITUTED , 0.5 ML, PF 2022 303 complet ed [facility] INFLUENZA, HIGH-DOSE, QUADRIVALENT 2022 ALEC BENTLEY LEFT DELTO ID [id number] 197 complet ed [facility] INFLUENZA, UNSPECIFIED FORMULATION 2022 88 complet ed [facility] COVID-19 (PFIZER), MRNA, LNP-S, PF, 30 MCG/0.3 ML DOSE 2020 208 complet ed [facility] INFLUENZA, UNSPECIFIED FORMULATION 2020 88 complet ed [facility] COVID-19 (PFIZER), MRNA, LNP-S, PF, 30 MCG/0.3 ML DOSE 2 2020 208 complet ed [facility] COVID-19 (PFIZER), MRNA, LNP-S, PF, 30 MCG/0.3 ML DOSE 1 2020 208 complet ed [place] ZOSTER RECOMBINANT 1 2018 187 complet ed [facility] ZOSTER RECOMBINANT 1 2018 187 complet ed [facility] INFLUENZA, TRIVALENT, ADJUVANTED 2018 168 complet ed Site: Left Deltoid [facility] INFLUENZA, SEASONAL, INJECTABLE 2017 141 complet ed Site: Left Deltoid [facility] INFLUENZA, SEASONAL, INJECTABLE 2016 141 complet ed [facility] [place] PNEUMOCOCCAL CONJUGATE PCV 13 2015 133 complet ed [facility] [place] [facility] PNEUMOCOCCAL POLYSACCHARID E PPV23 2014 33 complet ed [facility] TDAP 2014 115 complet ed [facility] [place] [facility] Vital Signs Combined list of inpatient and outpatient Vital Signs from Department of Defense and Veterans Affairs, ranging from 12 months to all on record, depending upon the facility. Vital Sign Value Date Comments Source SYSTOLIC BLOOD PRESSURE 125 04/11/20 24 09:48:39 [facility] [place] [facility] DIASTOLIC BLOOD PRESSURE 80 024 09:48:39 [facility] [place] [facility] PULSE OXIMETRY 94 04/11/2024 09:48:39 [facility] [facility] WEIGHT 208.2 04/11/2024 09:48:39 [facility] [place] [facility] BMI 34kg/m2 04/11/2024 09:48:39 [facility] PAIN 1 04/11/2024 09:48:39 [facility] [place] [facility] TEMPERATURE 97.5 04/11/2024 09:48:39 [facility] [place] [facility] PULSE 68 04/11/2024 09:48:39 [facility] RESPIRATION 16 04/11/2024 09:48:39 [facility] [place] [facility] SYSTOLIC BLOOD PRESSURE 129 09/24/19 24 09:24:42 [facility] DIASTOLIC BLOOD PRESSURE 86 024 09:24:42 [facility] PULSE OXIMETRY 97 09/24/2023 09:24:42 [facility] WEIGHT 206 09/24/2023 09:24:42 [facility] BMI 33kg/m2 09/24/2023 09:24:42 [facility] PAIN 3 09/24/2023 09:24:42 [facility] HEIGHT 66 09/24/2023 09:24:42 [facility] TEMPERATURE 98 09/24/2023 09:24:42 [facility] PULSE 65 09/24/2023 09:24:42 [facility] RESPIRATION 18 09/24/2023 09:24:42 [facility] Encounters Combined list of: 1) Encounters from Department of Veterans Affairs facilities going back up to thelast 18 months. 2) Encounters from the Department of Defense facilities going back up to 280 months. Location Location Details Encounter Type Encounter Number Reason For Visit Attending Provider ADM Date DC Date Status Disposition Source [facility] Outpatient Encounter [id number] 04/09 [facility] [place] [facility] O/P EST MOD 30-39 MIN [id number] Diagnos is: ICD-10- CM I48.91 Unspeci fied atrial fibrill ation<b r/> Corrie BULLOCK 04/09 [place] [facility] [place] [place] [facility] Outpatient Encounter [id number] 06/05 [facility] Outpatient Encounter [id number] 09/19 [facility] Outpatient Encounter [id number] 09/23 [facility] OFFICE O/P [place] 60 MIN [id number] Diagnos is: ICD-10- CM D09.0 Carcino ma in situ of bladder
LYNNETTE ROBLES 09/23 [facility] TARGETED CASE MANAGEMENT [id number] KARELY ARANA 09/25 [facility] [place] [place] [facility] HEARING AID FITTING/CH ECKING [id number] Diagnos is: ICD-10- CM Z46.1 Encount er for fitting and adjustm ent of hearing aid<br/ > Tiesha HERR 12/19 [facility] [place] Outpatient Encounter [id number] 02/07 [facility] En[place] [id number] 02/[address] [facility] [place] [facility] HEARING [facility] REPAIR/MOD IFYING [id number] Diagnos is: ICD-10- CM H90.3 Sensori neural hearing loss, bilater al
ILANA PITTS UREN L 03/10 [facility] [place] [facility] [place] [facility] O/P EST MOD 30 MIN [id number] Diagnos is: ICD-10- CM I48.91 Unspeci fied atrial fibrill ation<b r/> Corrie BULLOCK 04/11 [facility] [place] [facility] [facility] [place] [facility] [id number] Diagnos is: ICD-10- CM Z46.1 Encount er for fitting and adjustm ent of hearing aid<br/ > JASMEETSREEDHARILANA UREN L 04/11 [facility] [place] [facility] [facility] [place] [facility] Outpatient Encounter [id number] 04/12 [facility] [place] [facility] [facility] [place] [facility] SPECIAL SUPPLIES PHYS/QHP [id number] Diagnos is: ICD-10- CM J44.9 Chronic obstruc tive pulmona ry disease , unspeci fied
HOLLIE EDGAR E P 04/17 [facility] Outpatient Encounter [id number] 04/18 [facility] Out[facility] Encounter [id number] 04/18 [facility] Outpatient Encounter [id number] 04/21 [facility] [place] [facility] Outpatient Encounter [id number] 04/22 [facility] HEARING AID CHECK BOTH EARS [id number] Diagnos is: ICD-10- CM Z46.1 Encount er for fitting and adjustm ent of hearing aid<br/ > CHUY ORTIZ L 04/29 [facility] HEARING AID FITTING/CH ECKING [id number] Diagnos is: ICD-10- CM Z46.1 Encount er for fitting and adjustm ent of hearing aid<br/ > ILANA PITTS L 05/20 [facility] Outpatient Encounter [id number] 06/24 [facility] [place] Social History Combined list of available smoking, tobacco, and other social history from Department of Defense and Veterans Affairs facilities. Social History Type Response Date Comment [facility] e Tobacco smoking status NHIS VA-TOBACCO FORMER USER 04/11/2024 [facility] [place] [facility] History of tobacco use VA-TOBACCO QUIT 5 TO < 15 YRS 04/11/2024 [facility] [place] [facility] History of tobacco use VA-TOBACCO FORMER USER 09/24/2023 [facility] History of tobacco use VA-TOBACCO FORMER USER [facility] of tobacco use NM-TOBACCO FORMER USER 04/13/2022 [facility] History of tobacco use NM-TOBACCO FORMER USER 04/12/2021 [facility] History of tobacco use NM-TOBACCO QUIT 5 TO < 15 YRS 03/19/2020 [facility] History of tobacco use NM-TOBACCO FORMER USER 12/12/2018 [facility] History of tobacco use QUIT TOBACCO USE > 7 YEARS AGO 01/21/2018 [facility] History of tobacco use QUIT TOBACCO USE > 7 YEARS AGO 12/25/2016 [facility] Plan of Care List of future care activities from Department of [facility] facilities. Additional future care activities may be listed in the Assessment and Plan section. Date/Time Care Activity Care Activity Detail Facili ty 08/25/2024 AMBULATORY - MEDICINE AMBULATORY - MEDICI [facility] Advance Directives List of completed, amended, or rescinded Advance Directives on record at Department of [facility] facilities. An actual copy of the Directive is not included. Date Advance Directive Provider Source 05/23/2015 ADVANCE DIRECTIVE AMBER PENA [facility]
--- OUTSIDE RECORDS SUMMARY | 2024-06-26 00:34 | XMS_ITS | Encounter Summary ---
Author Name [facility] [place] [facility] [place] Address [address] [place] [address] Care Team Providers Care Transfer Knitter Name Role Phone LAURENT ROBLES Primary Care Provider Unavailabl e PERCY BULLOCK [...] PART A Dec 14, 2012 PART A [id number] GENEVIEVE ARNOLD JR PATIENT MEDICARE (WNR) MEDICARE (M) PART B Dec 14, 2012 PART B [id number] GENEVIEVE ARNOLD PATIENT MEDICARE PART D (WNR) PRESCRIPT ION PART D Dec 14, 2012 PART D [id number] GENEVIEVE ARNOLD PATIENT [facility] (WNR) MEDICARE ADVANTAGE MCR(W NR) Jul 16, 2022 [id number] GENEVIEVE ARNOLD PATIENT [facility] (WNR) MEDICARE ADVANTAGE MCR (WNR) Jul 16, 2017 [id number] GENEVIEVE ARNOLD PATIENT Selected Encounter This section includes the information on record at [place] for the Encounter. Date/Time Encounter Type Encounter Description Reason Provider Source Mar 10, 2024 11:00 AM HEARING AID REPAIR/MODIFYIN G AUDIOLOGY ICD-10-CM H90.3 Sensorineural hearing loss, bilateral BONCZEK,ROYER N L IHE Encounter Template Text not used by [place] Assessments - Encounter Diagnoses This section includes the primary and secondary diagnoses documented for the Encounter. Date/Time Primary/Secondary Diagnosis Diagnosis Name Provider Source Mar 10, 2024 11:46 AM PRIMARY Sensorineural hearing loss, bilateral BONCZEK,ROYER N L [place] [facility] Mar 10, 2024 11:46 AM SECONDARY Tinnitus, bilateral BONCZEK,ROYER N L [place] [facility] Plan of Treatment: Future Appointments (+ 6 months) and Future Tests (+/- 45 days) The Plan of Treatment section includes future care activities for the patient from all [place] [facility]. This section includes future appointments and future orders which are active, pending or scheduled. Future Appointments This section includes appointments that were scheduled to occur 6 months from the date of the Encounter, up to a maximum of 20 appointments. The data comes from all [place] treatment facilities. Appointment Date/Time Appointment Type Appointme nt Facility Name Apr 11, 2024 09:30 AM AMBULATORY - MEDICINE [facility] Apr 11, 2024 11:00 AM AMBULATORY - REHAB MEDICIN E [place] [facility] Apr 29, 2024 01:00 PM AMBULATORY - REHAB MEDICIN E [facility] May 19, 2024 02:00 PM AMBULATORY - MEDICINE [facility] May 20, 2024 09:00 AM AMBULATORY - REHAB MEDICIN E [place] [facility] Aug 25, 2024 08:30 AM AMBULATORY - MEDICINE [facility] Active, Pending, and Scheduled Orders This section includes a listing of several types of active, pending, and scheduled orders, including clinic medications orders, diagnostic test orders, procedure orders and consult orders; where the start date of the order is 45 days before the date of the Encounter or 45 days after the date of theEncounter. The data comes from all [place] treatment facilities. Test Date/Time Test Type Test Details Facility Name Apr 17, 2024 08:33 AM Consult Order COMMUNITY CARE-PULMONARY Cons Map Drafter's Choice [place] [facility] Social History: Smoking Status (Most current) and Tobacco Use (All prior to encounter date) This section includes the most current, and the historical, smoking and tobacco- related health factors from the [place] facility where the Encounter took place. Current Smoking Status This section includes the most current smoking, or tobacco-related health factor, from the [place] facility where the Encounter took place. Date/Time Current Smoking Status Comment Facil ity Apr 09, 2023 09:00 AM VA-TOBACCO FORMER USER [place] [facility] Tobacco Use History This section includes a history of the smoking, or tobacco-related health factors, that were collected on or before the date of the Encounter. The data comes from the [place] facility where the Encounter took place. Date/Time Smoking Status/Tobacco Use Comment F acility Apr 09, 2023 09:00 AM VA-TOBACCO QUIT 5 TO < 15 YRS [facility] Apr 13, 2022 09:30 AM VA-TOBACCO FORMER USER [facility] Apr 13, 2022 09:30 AM VA-TOBACCO QUIT 5 TO < 15 YRS [facility] Apr 12, 2021 11:30 AM VA-TOBACCO FORMER USER [facility] Apr 12, 2021 11:30 AM VA-TOBACCO QUIT 5 TO < 15 YRS [facility] Mar 19, 2020 09:00 AM VA-TOBACCO FORMER USER [facility] Mar 19, 2020 09:00 AM VA-TOBACCO QUIT 5 TO < 15 YRS [facility] December 12, 2018 10:18 AM VA-TOBACCO FORMER USER [facility] December 12, 2018 10:18 AM VA-TOBACCO QUIT 5 TO < 15 YRS [facility] Jan 21, 2018 07:50 AM QUIT TOBACCO USE > 7 YEARS AGO [facility] Dec 25, 2016 10:59 AM QUIT TOBACCO USE > 7 YEARS AGO [facility] Advance Directives: All historical and current Section Date Range: From patient's date of to the date document was created. This section includes ALL of a patient's completed or amended [place] Advance and Rescinded Directives. The entries below indicate that a directive exists for the patient, but an actual copy is not included with this document. The data comes from all [place] facilities. Date Advance Directives Provider Source May 23, 2015 ADVANCE DIRECTIVE [facility]BER [facility] Encounter Notes: All associated encounter notes This section contains the clinical notes associated to the Encounter. Date/Time Encounter Note(s) Provider Source Mar 10, 2024 11:03 AM AUDIOLOGY E & M NOTE: LOCAL TITLE: AUDIOLOGY CLINIC STANDARD TITLE: AUDIOLOGY E & M NOTE DATE OF NOTE: MAR 10, 2024@11:03 ENTRY DATE: MAR 10, 2024@11:03:27 AUTHOR: DORIS PITTS COSIGNER: URGENCY: STATUS: COMPLETED AUDIOLOGY CLINIC Has ADDENDA was seen March 10, 2024 for a hearing re-evaluation. His last hearing evaluation was on 05/02/21. 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 He was issued bilateral Poonam Mateo Edge AI BTEs on 06/01/21. reports his hearing aids often fall off the top of his ears when he bends over. He reports intermittent tinnitus in both ears. [place] reports he had an episode of vertigo a month ago, but attributes it to an adverse reaction he had to Amoxicillin. Medical history includes: Active problems - Computerized Problem List is the source for the followin. AF - Atrial fibrillation 2. Arrhythmia 3. Does use hearing aid 4. Adult screening status 5. History of surgery 6. 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 7. Posttraumatic stress disorder 8. Under care of multiple providers 9. Sleep apnea 10. Bladder cancer 11. Hyperlipidemia 12. Gastroesophageal reflux disease 13. History of alcohol abuse Results of today's testing are as follow: Otoscopy was WNL bilaterally. Pure tone audiometric testing under headphones revealed: Right Ear: Normal sloping to profound sensorineural hearing loss Left Ear: Borderline normal sloping to profound sensorineural hearing loss Hearing is essentially stable compared to his last evaluation in 2020. Stable asymmetries, with poorer thresholds in the left ear from 250-4000 Hz. Word recognition scores were good for the right ear (96%), and poor for the left ear (32%) with recorded speech presented at 85 dB HL (contralateral masking). Normal tympanograms obtained bilaterally. [place]ed[place] was counseled re: today's test results. He is eligible for new hearing aids given the age of his current devices. 's hearing aids were cleaned and checked. All debris was removed from the microphones, and the slim tubes were replaced (changed to length 4 from length 3). Listening check was positive for both hearing aids and the hearing aids are fitting more securely on 's ears. Hearing aid styles and options were discussed with . He denies having a pacemaker and reports he is interested in rechargeable hearing aids. Ear impressions were taken without incident for both ears given 's verbal consent. New, binaural, Oticon Intent mini [facility] hearing aids will be ordered. [place] is scheduled for a hearing aid fitting appointment on 04/11/24 at 11am. RTC placed. /kristen/ Tomás Strange, CCC-A Gear Room Keeper Signed: 03/10/2024 12:51 03/26/2024 ADDENDUM STATUS: COMPLETED Hearing aids received and certified, upcoming appointment scheduled on 04/11/2024. /kristen/ CHANA KITCHENCTAlex [facility]iology Health Matting Press Tender Signed: 03/26/2024 11:01 [facility] PITTS [facility]
--- OUTSIDE RECORDS SUMMARY | 2024-06-26 00:34 | XMS_ITS | Encounter Summary ---
Author Name [facility] [place] Address [address] [place] [address] Care Team Providers Care Neuropsychology Medical Consultant Name Role Phone LAURENT ROBLES Primary Care [...] PART A Dec 14, 2012 PART A [id number] [phone] GENEVIEVE ARNOLD JR PATIENT MEDICARE (WNR) MEDICARE (M) PART B Dec 14, 2012 PART B [id number] GENEVIEVE ARNOLD PATIENT MEDICARE PART D (WNR) PRESCRIPT ION PART D Dec 14, 2012 PART D [id number] GENEVIEVE ARNOLD PATIENT [facility] (WNR) MEDICARE ADVANTAGE [facility](W NR) Jul 16, 2022 [id number] GENEVIEVE ARNOLD PATIENT [facility] (WNR) MEDICARE ADVANTAGE [facility] (WNR) Jul 16, 2017 [id number] [phone] GENEVIEVE ARNOLD PATIENT Selected Encounter This section includes the information on record at [place] for the Encounter. Date/Time Encounter Type Encounter Description Reason Pro vider Source Feb 08, 2024 12:00 AM Outpatient Encounter GENERAL INTERNAL MEDICINE IHE Encounter Template Text not used by [place] Plan of Treatment: Future Appointments (+ 6 months) and Future Tests (+/- 45 days) The Plan of Treatment section includes future care activities for the patient from all [place] treatmentfacilities. This section includes future appointments and future orders which are active, pending or scheduled. Future Appointments This section includes appointments that were scheduled to occur 6 months from the date of the Encounter, up to a maximum of 20 appointments. The data comes from all [place] treatment facilities. Appointment Date/Time Appointment Type Appointme nt Facility Name Mar 10, 2024 11:00 AM AMBULATORY - REHAB MEDICIN E [place] [facility] [place] [facility] Apr 11, 2024 09:30 AM AMBULATORY - MEDICINE [place] [facility] [place] [facility] Apr 11, 2024 11:00 AM AMBULATORY - REHAB MEDICIN E [place] [facility] [place] [facility] Apr 29, 2024 01:00 PM AMBULATORY - REHAB MEDICIN E [place] [facility] [place] [facility] May 19, 2024 02:00 PM AMBULATORY - MEDICINE [facility] [place] [facility] May 20, 2024 09:00 AM AMBULATORY - REHAB MEDICIN E [place] [facility] Advance Directives: All historical and current Section Date Range: From patient's date of to the date document was created. This section includes ALL of a patient's completed or amended [place] Advance and Rescinded Directives. The entries below indicate that a directive exists for the patient, but an actual copy is not included with this document. The data comes from all [facility]. Date Advance Directives Provider Source May 23, 2015 ADVANCE DIRECTIVE AMBER PENA [facility] [place] [facility] Encounter Notes: All associated encounter notes This section contains the clinical notes associated to the Encounter. Date/Time Encounter Note(s) Provider Source Feb 08, 2024 12:00 AM SCANNED NONVA NOTE : LOCAL TITLE: SCANNED NON-VA MEDICAL RECORDS STANDARD TITLE: SCANNED NONVA NOTE DATE OF NOTE: FEB 08, 2024 ENTRY DATE: FEB 11, 2024@09:46:35 AUTHOR: HONORIO PETIT COSIGNER: URGENCY: STATUS: COMPLETED VistA Imaging - Scanned Document SCANNED DOCUMENT SIGNATURE NOT REQUIRED Electronically Filed: 02/11/2024 by: HONORIO PETIT ACCOUNT LIAISONHONORIO GARCIA [facility]
--- OUTSIDE RECORDS SUMMARY | 2024-06-26 00:34 | XMS_ITS ---
Author Name [facility] [place] Organization [place] Address [address] [place] [address] Care Team Providers Care Nuclear Plant Operator Name Role Phone LAURENT ROBLES Primary Care [...] PART A Dec 14, 2012 PART A [id number] GENEVIEVE ARNOLD JR PATIENT MEDICARE (WNR) MEDICARE (M) PART B Dec 14, 2012 PART B [id number] GENEVIEVE ARNOLD PATIENT MEDICARE PART D (WNR) PRESCRIPT ION PART D Dec 14, 2012 PART D [id number] GENEVIEVE ARNOLD PATIENT [facility] (WNR) MEDICARE ADVANTAGE [facility](W NR) Jul 16, 2022 [id number] GENEVIEVE ARNOLD PATIENT [facility] (WNR) MEDICARE ADVANTAGE [facility] (WNR) Jul 16, 2017 [id number] GENEVIEVE ARNOLD PATIENT Selected Encounter This section includes the information on record at [place] for the Encounter. Date/Time Encounter Type Encounter Description Reason Provider Source Apr 11, 2024 11:00 AM HEARING SERVICE AUDIOLOGY ICD-10-CM Z46.1 Encounter for fitting and adjustment of hearing aid DORIS PITTS Corrie [facility] Encounter Template Text not used by [place] Assessments - Encounter Diagnoses This section includes the primary and secondary diagnoses documented for the Encounter. Date/Time Primary/Secondary Diagnosis Diagnosis Name Provider Source Apr 11, 2024 11:34 AM PRIMARY Encounter for fitting and adjustment of hearing aid [facility] Apr 11, 2024 11:34 AM SECONDARY Sensorineural hearing loss, bilateral [facility]EDHARROYER [facility] Plan of Treatment: Future Appointments (+ 6 months) and Future Tests (+/- 45 days) The Plan of Treatment section includes future care activities for the patient from all [place] [facility] [place]. This section includes future appointments and future orders which are active, pending or scheduled. Future Appointments This section includes appointments that were scheduled to occur 6 months from the date of the Encounter, up to a maximum of 20 appointments. The data comes from all [place] treatment facilities. Appointment Date/Time Appointment Type Appointme nt Facility Name Apr 29, 2024 01:00 PM AMBULATORY - REHAB MEDICIN E [facility] [place] [facility] May 19, 2024 02:00 PM AMBULATORY - [facility] May 20, 2024 09:00 AM AMBULATORY - REHAB MEDICIN E [facility] [place] [facility] Aug 25, 2024 08:30 AM AMBULATORY - MEDICINE [facility] Active, Pending, and Scheduled Orders This section includes a listing of several types of active, pending, and scheduled orders, including clinic medications orders, diagnostic test orders, procedure orders and consult orders; where the start date of the order is 45 days before the date of the Encounter or 45 days after the date of theEncounter. The data comes from all [place] treatment [facility]. Test Date/Time Test Type Test Details Facility Name Apr 17, 2024 08:33 AM Consult Order COMMUNITY CARE-PULMONARY Cons Environmental Sciences Professor's Choice [place] [facility] [place] [facility] Vital Signs: All taken on the encounter date This section contains inpatient and outpatient Vital Signs collected on the date of the Encounter. Date/Time Temperature Pulse Blood Pressure Respiratory Rate SP02 Pain Height Weight Body Mass Index Source Apr 11, 2024 09:48 AM 97.5 68 125/80 16 94 1 208.2 34 [place] [facility] [place] [facility] Social History: Smoking Status (Most current) and Tobacco Use (All prior to encounter date) This section includes the most current, and the historical, smoking and tobacco- related health factors from the [place] facility where the Encounter took place. Current Smoking Status This section includes the most current smoking, or tobacco-related health factor, from the [place] facility where the Encounter took place. Date/Time Current Smoking Status Comment Facil ity Apr 11, 2024 09:30 AM VA-TOBACCO FORMER USER [place] [facility] [place] [facility] Tobacco Use History This section includes a history of the smoking, or tobacco-related health factors, that were collected on or before the date of the Encounter. The data comes from the [place] facility where the Encounter took place. Date/Time Smoking Status/Tobacco Use Comment F acility Apr 11, 2024 09:30 AM VA-TOBACCO QUIT 5 TO < 15 YRS [facility] [place] [facility] Apr 09, 2023 09:00 AM VA-TOBACCO FORMER USER [facility] [place] [facility] Apr 09, 2023 09:00 AM VA-TOBACCO QUIT 5 TO < 15 YRS [facility] [place] [facility] Apr 13, 2022 09:30 AM VA-TOBACCO FORMER USER [facility] [place] [facility] Apr 13, 2022 09:30 AM VA-TOBACCO QUIT 5 TO < 15 YRS [facility] [place] [facility] Apr 12, 2021 11:30 AM VA-TOBACCO FORMER USER [facility] [place] [facility] Apr 12, 2021 11:30 AM VA-TOBACCO QUIT 5 TO < 15 YRS [facility] [place] [facility] Mar 19, 2020 09:00 AM VA-TOBACCO FORMER USER [facility] [place] [facility] Mar 19, 2020 09:00 AM VA-TOBACCO QUIT 5 TO < 15 YRS [facility] December 12, 2018 10:18 AM VA-TOBACCO [facility] December 12, 2018 10:18 AM VA-TOBACCO QUIT 5 TO < 15 YRS [facility] Jan 21, 2018 07:50 AM QUIT TOBACCO USE > 7 YEARS AGO [facility] Dec 25, 2016 10:59 AM QUIT TOBACCO USE > 7 YEARS AGO [facility] Advance Directives: All historical and current Section Date Range: From patient's date of to the date document was created. This section includes ALL of a patient's completed or amended [place] Advance and Rescinded Directives. The entries below indicate that a directive exists for the patient, but an actual copy is not included with this document. The data comes from all [place] facilities. Date Advance Directives Provider Source May 23, 2015 ADVANCE DIRECTIVE AMBER PENA [facility] Encounter Notes: All associated encounter notes This section contains the clinical notes associated to the Encounter. Date/Time Encounter Note(s) Provider Source Apr 11, 2024 11:29 AM AUDIOLOGY E & M NOTE: LOCAL TITLE: AUDIOLOGY CLINIC STANDARD TITLE: AUDIOLOGY E & M NOTE DATE OF NOTE: APR 11, 2024@11:29 ENTRY DATE: APR 11, 2024@11:29:42 AUTHOR: DORIS PITTS COSIGNER: URGENCY: STATUS: COMPLETED AUDIOLOGY CLINIC Has ADDENDA Diagnosis: Sensorineural hearing loss, bilateral Hearing Aid Fitting: SUBJECTIVE (S): The was seen for hearing aid fitting and issuance. S/He had previously been evaluated and found to exhibit significant hearing loss for which amplification was recommended. How does the patient/client best learn? Verbal/Visual instruction Does the patient/client have any cultural and caodaism beliefs, emotional barriers, physical or cognitive limitations, and communication barriers which may impact his/her ability to learn? No Desire and motivation to learn? Good OBJECTIVE (O): Physical fit of earmolds/receivers and domes/hearing aids was good. verified comfort. Verification of an appropriate acoustic response was obtained using Real Ear measurements (speech mapping) and NAL-NL1 targets. The reported good subjective benefit as well. Feedback biodiesel plant manager was run. Hearing aids were found to be meeting targets adequately and MPO was not exceeding estimated UCL. Settings stored in JUAN R. Time spent= 10 min. ASSESSMENT (A): The following device(s) was/were issued: Make: Oticon Model: INTENT 1 MINIRITE-R Serial Numbers: [id number] (R), [id number] (L) Battery size: N/A - RECHARGEABLE Trial Period ends: 09/15/24 Domes/wax guards, etc.: Pro Wax Earmold Information: Canal lock microshell, clear, acrylic Arcgis Developer size/power: Length 2 100 gain receivers Program Settings (VC, Programs, Buttons): Automatic, VCs enabled (right raise, left lower) Fitting Formula: NAL-NL1 Remote Programming enabled: YES Counseling was completed today throughout todays appointment using a standardized curriculum that includes but is not limited to; realistic expectations with amplification in adverse listening environments, acclimatization to own voice and environmental sounds (following real-ear measurements), the importance of consistent use of amplification, proper insertion/removal, care and maintenance (including wax guards/domes if applicable), signal and alerts of devices, and charging/batteries. The was provided the opportunity to practice in office and reports confidence/understanding in all items reviewed. Time Spent= 30 min. The was informed of and signed/agreed to [place] policy on hearing aid issuance: Users are responsible for the maintenance and security of their devices. Determination of need to replace a hearing aid is made by the [place] office manager receptionist. Hearing aids will not be replaced in cases of neglect, abuse, or excessive loss. Items issued are for personal use only. Prognosis for successful hearing aid use is good. PLAN (P): 1. Contact clinic with any problems/concerns. 2. The International Outcome Inventory-Hearing Aids (IOI-GOODRICH) will be mailed to the in four weeks. He/she was asked to complete and mail back to clinic after completion. Patient Education Education provided on the following topics: Rechargeable hearing aids Education provided to: P Response to Education: FERNANDO ROEMRO, PI [place] Patient P Family F Significant Other SO Verbalizes Understanding VU Returns Demonstration RD Performs Independently PI Lacks Comprehension LC Refused Education RE Not Applicable NA /kristen/ Tomás Strange, CCC-A Polisher Brass Signed: 04/11/2024 11:34 06/05/2024 ADDENDUM STATUS: COMPLETED [place] returned IOI-GOODRICH Outcome Measure to the clinic via mail with an overall score of 26 Based on this score: i. No follow-up call is indicated _XX_ ii. Follow-up call is indicated and fitting clinician will be notified __ /es/ CHANA DOBBS Audiology [facility] Psychosocial Rehabilitation Counselor Signed: 06/05/2024 11:33 DORIS PITTS [facility] [place] [facility]
--- OUTSIDE RECORDS SUMMARY | 2024-06-26 00:34 | XMS_ITS | Encounter Summary ---
Author Name [facility] Organization [facility] [place] Address [address] [place] [address] Care Team Providers Care Integration Lead Name Role Phone LAURENT ROBLES Primary Care Provider Unavailabl e RITA ROSALES Primary Care Provider Unavailabl e Insurance Providers: [...] PART A Dec 14, 2012 PART A [id number] GENEVIEVE ARNOLD JR PATIENT MEDICARE (WNR) MEDICARE (M) PART B Dec 14, 2012 PART B [id number] [phone] GENEVIEVE ARNOLD PATIENT MEDICARE PART D (WNR) PRESCRIPT ION PART D Dec 14, 2012 PART D [id number] GENEVIEVE ARNOLD PATIENT [facility] (WNR) MEDICARE ADVANTAGE MCR(W NR) Jul 16, 2022 [id number] GENEVIEVE ARNOLD PATIENT [facility] (WNR) MEDICARE ADVANTAGE [facility] (WNR) Jul 16, 2017 [id number] GENEVIEVE ARNOLD PATIENT Selected Encounter This section includes the information on record at [place] for the Encounter. Date/Time Encounter Type Encounter Description Reason Provider Source Apr 11, 2024 09:30 AM OFFICE O/P EST MOD 30 MIN PRIMARY CARE/MEDICINE ICD-10-CM I48.91 Unspecified atrial fibrillation ARARITA CROWE E Encounter Template Text not used by [place] Assessments - Encounter Diagnoses This section includes the primary and secondary diagnoses documented for the Encounter. Date/Time Primary/Secondary Diagnosis Diagnosis Name Provider Source Apr 11, 2024 01:05 PM PRIMARY Unspecified atrial fibrillation ARARITA [facility] [place] [facility] Apr 11, 2024 01:05 PM SECONDARY Chronic obstructive pulmonary disease, unspecified ARARITA CROWE [facility] [place] [facility] Apr 11, 2024 01:05 PM SECONDARY Contact with and exposure to other hazardous substances ARARITA [facility] [place] [facility] Apr 11, 2024 01:05 PM SECONDARY Encounter for immunization OLAMIDE CAR [facility] [place] [facility] Apr 11, 2024 01:05 PM SECONDARY Gastro-esophageal reflux disease without esophagitis ARARITA CROWE [facility] [place] [facility] Apr 11, 2024 01:05 PM SECONDARY Other seasonal allergic rhinitis ARARITA CROWE [facility] [place] [facility] Apr 11, 2024 01:05 PM SECONDARY Sleep apnea, unspecified ARA,RITA TRAYLOR [facility] [place] [facility] Plan of Treatment: Future Appointments (+ 6 months) and Future Tests (+/- 45 days) The Plan of Treatment section includes future care activities for the patient from all [place] treatmentfacilities. This section includes future appointments and future orders which are active, pending or scheduled. Future Appointments This section includes appointments that were scheduled to occur 6 months from the date of the Encounter, up to a maximum of 20 appointments. The data comes from all [place] treatment facilities. Appointment Date/Time Appointment Type Appointme nt Facility Name Apr 29, 2024 01:00 PM AMBULATORY - REHAB MEDICIN E [facility] [place] [facility] May 19, 2024 02:00 PM [facility] May 20, 2024 09:00 AM AMBULATORY - REHAB MEDICIN E [facility] Aug 25, 2024 08:30 AM AMBULATORY - MEDICINE [facility] Active, Pending, and Scheduled Orders This section includes a listing of several types of active, pending, and scheduled orders, including clinic medications orders, diagnostic test orders, procedure orders and consult orders; where the start date of the order is 45 days before the date of the Encounter or 45 days after the date of theEncounter. The data comes from all [place] treatment facilities. Test Date/Time Test Type Test Details Facility Name Apr 17, 2024 08:33 AM Consult Order COMMUNITY CARE-PULMONARY Cons [employer] Education Teacher's Choice [facility] Vital Signs: All taken on the encounter date This section contains inpatient and outpatient Vital Signs collected on the date of the Encounter. Date/Time Temperature Pulse Blood Pressure Respiratory Rate SP02 Pain Height Weight Body Mass Index Source Apr 11, 2024 09:48 AM 97.5 68 125/80 16 94 1 208.2 34 [facility] Immunizations: All administered on the encounter date This section contains immunizations associated to the Encounter. Immunization Series Date Issued Reaction Comments INFLUENZA, HIGH-DOSE, TRIVALENT, PF Apr 11, 2024 RSV, BIVALENT, PROTEIN SUBUN IT RSVPREF, DILUENT RECONSTITUTED, 0.5 ML, PF Apr 11, 2024 Steril e water diluent Lot #- [id number] 11/2024 Social History: Smoking Status (Most current) and Tobacco Use (All prior to encounter date) This section includes the most current, and the historical, smoking and tobacco- related health factors from the [place] facility where the Encounter took place. Current Smoking Status This section includes the most current smoking, or tobacco-related health factor, from the [place] facility where the Encounter took place. Date/Time Current Smoking Status Comment Adria childress Apr 11, 2024 09:30 AM PR-TOBACCO QUIT 5 TO < 15 YRS [facility] Tobacco Use History This section includes a history of the smoking, or tobacco-related health factors, that were collected on or before the date of the Encounter. The data comes from the [place] facility where the Encounter took place. Date/Time Smoking Status/Tobacco Use Comment F acility Apr 11, 2024 09:30 AM VA-TOBACCO QUIT 5 TO < 15 YRS [facility] [place] [facility] Apr 09, 2023 09:00 AM VA-TOBACCO FORMER USER [facility] [place] [facility] Apr 09, 2023 09:00 AM VA-TOBACCO QUIT 5 TO < 15 YRS [facility] [place] [facility] Apr 13, 2022 09:30 AM VA-TOBACCO FORMER USER [facility] [place] [facility] Apr 13, 2022 09:30 AM VA-TOBACCO QUIT 5 TO < 15 YRS [facility] [place] [facility] Apr 12, 2021 11:30 AM VA-TOBACCO FORMER USER [facility] [place] [facility] Apr 12, 2021 11:30 AM VA-TOBACCO QUIT 5 TO < 15 YRS [facility] [place] [facility] Mar 19, 2020 09:00 AM VA-TOBACCO FORMER USER [facility] [place] [facility] Mar 19, 2020 09:00 AM VA-TOBACCO QUIT 5 TO < 15 YRS [facility] [place] [facility] December 12, 2018 10:18 AM VA-TOBACCO FORMER USER [facility] [place] [facility] December 12, 2018 10:18 AM VA-TOBACCO QUIT 5 TO < 15 YRS [facility] [place] [facility] Jan 21, 2018 07:50 AM QUIT TOBACCO USE > 7 YEARS AGO [facility] [place] [facility] Dec 25, 2016 10:59 AM QUIT TOBACCO USE > 7 YEARS AGO [facility] [place] [facility] Advance Directives: All historical and current Section Date Range: From patient's date of to the date document was created. This section includes ALL of a patient's completed or amended VA Advance and Rescinded Directives. The entries below indicate that a directive exists for the patient, but an actual copy is not included with this document. The data comes from all [place] facilities. Date Advance Directives Provider Source May 23, 2015 ADVANCE DIRECTIVE [facility]BER [facility] Encounter Notes: All associated encounter notes This section contains the clinical notes associated to the Encounter. Date/Time Encounter Note(s) Provider Source Apr 17, 2024 08:27 AM PRIMARY CARE TELEPHONE ENCOUNTER NOTE: LOCAL TITLE: TELEPHONE NOTE/PRIMARY CARE STANDARD TITLE: PRIMARY CARE TELEPHONE ENCOUNTER NOTE DATE OF NOTE: APR 17, 2024@08:27 ENTRY DATE: APR 17, 2024@08:28:52 AUTHOR: RITA ROSALES EXP COSIGNER: URGENCY: STATUS: COMPLETED Called vet to check on how his breathing and COPD. He did well after his Burst of steroid, he felt great, then a few days later had more distress with breathing His took him to [facility] they did CXR and thought no full blow PNA there was one questionable area so they treated him with IV dexa and sent him home with oral Abx, Tessalon pearls and taper of steroid currently feeling much better he is slated for pulmonary appt with Dr Christie in [place] on 05/20 I will placed CC consult also asking for nebulizer machine for exacerbations I will order he very much appreciated call and Lastly he is looking for handicap placard and will send me the RMV form. /kristen/ KOJO LOREDO Nurse Practitioner Signed: 04/17/2024 08:32 RITA ROSALES [facility] Apr 11, 2024 10:28 AM PRIMARY CARE NURSE PRACTITIONER OUTPATIENT NOTE: LOCAL TITLE: NURSE PRACTITIONER OUTPATIENT NOTE STANDARD TITLE: PRIMARY CARE NURSE PRACTITIONER OUTPATIENT NOTE DATE OF NOTE: APR 11, 2024@10:28 ENTRY DATE: APR 11, 2024@10:28:57 AUTHOR: EILEEN LAM EXP COSIGNER: RITA ROSALES URGENCY: STATUS: COMPLETED Pt is a 74 who comes in for follow up of medical problems as noted below. HPI: Patient presents today for follow up visit. He reports being of his Advair inhaler for past 5 weeks, using his rescue albuterol inhaler with increased frequency at home for past 2 weeks. He notes increased shortness of breath, reduced exercise tolerance, and increasing productive cough. He has not used any other home treatments. He reports night sweats drenching his sheets twice per week for past 2 months. He does not report any fever or chest pain. He is seen by pulmonology, oncology, allergy/immunology in the community. He will be seeing pulmonology for follow up, seeing allergy for Dupixent injections, and continue his 6 month prophylactic chemotherapy treatments for history of bladder cancer. No current urinary complaints, he reports oncology said his most recent cytology study showed no cancer. He also reports new significant allergy to amoxicillin with hospitalization in [place] due to jaundice reaction. PMH: Active problems - Computerized Problem List is the source for the followin. AF - Atrial fibrillation 2. Arrhythmia MED: Metoprolol / taper off flecainide( start 02/2019) Per pt - hx of left bundle block 3. Does use hearing aid 4. Adult screening status 11/2018 - No evidence of abdominal aortic aneurysm. 5. History of surgery multiple cystoscopy - every 3 months ( x urologist- [place]/ [place]) multiple cyst excised - scrotum/ neck - 2017 2018- left knee arthroplasty 6. 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 7. Posttraumatic stress disorder 8. Under care of multiple providers DR Corrie BLANTON ( [facility]) - visit 12/11/18 [place] - SEE HEAVY DUTY CUSTODIAN WHEN IN [place] ( JUN THRU NOVEMBER ) NON [place] DERMATOLOGY - NON [place] urologist ( [place] ( [facility]- DR Del Vlale / [place] - DR Rangel 9. Sleep apnea PER VISIT 01/21/18 - ANNUAL VISIT (CWM/NO/PACT 8 ) CPAP auto PAP mode 5-15 cm - h20 humidified - air lifetime ( DR BLANTON) - non VA script 10. Bladder cancer TURB procedures x 5. Diagnosed in 2012. 11. Hyperlipidemia 12. Gastroesophageal reflux disease 13. History of alcohol abuse sober for more than 38 yrs Allergies: MULTAQ The following VA and Non-VA meds were reconciled with patient: Active and Recently Outpatient Medications (excluding Supplies): Pending Outpatient Medications Status 1) PREDNISONE 20MG TAB TAKE TWO TABLETS BY MOUTH ONCE PENDING DAILY Active Non-VA Medications Status 1) Non-VA APIXABAN 5MG TAB 5MG BY MOUTH EVERY 12 HOURS ACTIVE 2) Non-VA METOPROLOL TARTRATE 50MG TAB 50MG BY MOUTH ACTIVE TWICE DAILY 3) Non-VA OMEPRAZOLE 20MG EC CAP 20MG BY MOUTH EVERY ACTIVE MORNING 30 MINUTES BEFORE BREAKFAST 4) Non-VA SIMVASTATIN 80MG TAB 40MG BY MOUTH AT BEDTIME ACTIVE 5 Total Medications Allergies: amoxicillin- hospitalized for jaundice dronedarone- rash VITAL SIGNS: 97.5 F [36.4 C] (04/11/2024 09:48) 68 (04/11/2024 09:48) 16 (04/11/2024 09:48) 125/80 (04/11/2024 09:48) 1 (04/11/2024 09:48) 66 in [167.6 cm] (12/25/2016 11:01) 208.2 lb [94.44 kg] (04/11/2024 09:48) BMI: 33.7 ROS General: no fever, no unexplained weight loss or gain, endorses night sweats 2x per week CV: denies CP, palpitations Lung: endorses shortness of breath, productive cough, dyspnea with exertion Abd: denies n/v/d : denies dysuria, penile d/c, hematuria Ext: denies edema Psych: denies SI Neuro: denies dizziness, falls, [facility] PHYSI EULOGIO EXAM GENERAL: well appearing [place] in mild respiratory distress, speaking in clear short sentences. SKIN: Clean, dry intact no rashes, lesions or nodules observed. Skin flakes present, no cyanosis HEENT: PERRLA, EOMIs, TMs intact bilaterally, no lymphadenopathy, no lesions/exudate of posterior pharynx, tongue midline without lesions RESP: rhonchi present throughout lung noriega with coarse crackles, expiratory wheeze Cards: S1 S2 RRR, No m/r/g no JVD, No Pedal Edema, Distal Pulses palpable, regular and equal, digital clubbing present Musculo: FROM Head/Neck with equal strength Upper extremities with FROM and equal strength Hips with FROM and equal strength. Knees with FROM and equal strength NEURO: CN II-XII grossly intact, gait steady without shuffle Psychiatric: A&Ox3 Appropriate, Pleasant, Cooperative, appropriately dressed, well groomed, no pressured speech, appropriate affect LAB RESULTS LAST 1440 HRS - NONE FOUND Future Clinic Visits 04/11/2024 11:00 CWM NO AUDIO HAF C ASSESSMENT AND PLAN: 1) COPD Patient likely experiencing exacerbation of COPD secondary to running out of Advair prescription. His vital signs are reassuring, however given worsening symptomatology we recommend corticosteroids and antibiotic therapy for empiric coverage. Through shared decision making, patient agreeable to short course of oral prednisone and understands to return with worsening symptoms, DEclined anb use at this time,if fever, or seek emergency treatment for acute respiratory distress. Plan to prescribe prednisone burst. Follow up as needed. 2) AFIB Patient previously ablated for AFIB, continues on home Eliquis daily and metoprolol daily. Condition is stable and asymptomatic. Plan to continue previously prescribed Eliquis, patient follows with community antiquer. 3) Sleep apnea Patient continues to use home CPAP without issues, reports no current issues with sleep. Plan to continue use of CPAP as previously prescribed 4) Bladder cancer Patient follows with oncology for bladder cancer with most recent studies showing cancer free status. He will continue 6 month chemotherapy as prophylaxis and continue to see oncology. Follow up at 6 month wellness visit, sooner if needed. 5) Allergies/eczema Patient not experiencing good relief from OTC antihistamines for allergic symptoms and eczema. Sees provisioning specialist who recommends Dupixent injections planned for Apr 21. 6) GERD Patient has existing GERD and is stable on omeprazole, currently not complaining of any symptoms. He sees GI, with recent appointment in the community. Plan to continue previously prescribed omeprazole. 7) Prevention Patient received RSV and flu vaccination at clinic today. Follows with GI and up to date on colonoscopy, next due 2026. Return to clinic to see me in 6 months, RTC sooner if needed. [place] gave permission to allow a student present for this exam/Encounter. I was present for the GENERAL CLAIMS AGENT student's history taking and examination. 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 Printed information was offered and provided if desired. /caregiver has no health or medical concerns related to their concern of environmental exposure. No questions at this time /caregiver was informed of local points of contact. Contact information for local resources: Benefits/Claim for Disability Compensation Questions:National VBA [place] Healthcare Enrollment: [facility] Eligibility direct dialed at [phone] Registry: [facility] Coordinator ext [phone] The following connections were provided to the /caregiver: No connections needed at this time Medication Reconciliation: Outpatient: Has the patient been taking medications as documented in the EMLR? YES: The patient has been taking medications as documented in the EMLR. Essential Medication List for Review used to complete this medication reconciliation. INCLUDED IN THIS LIST: Alphabetical list of active outpatient prescriptions dispensed from this VA (local) and dispensed from another VA or DoD facility (remote) as well as inpatient orders (local, pending and active), local clinic medications, locally documented non-VA medications, and local prescriptions that have or been discontinued in the past 90 days. - All changes in medications, including all non-VA/Herbal/OTC medications were entered into CPRS. - If there were any medications the patient should no longer take, they were discontinued. - The patient/caregiver was instructed to update this list, discard old lists, and take this list to the next appointment, whether with a VA or non-VA provider. /KOJO Aleman Nurse Practitioner Signed: 04/11/2024 12:55 for EILEEN LAM RN NURSE PRACTITIONER STUDENT /KOJO Aleman Nurse Practitioner Cosigned: 04/11/2024 12:55 RITA ROSALES [facility] Apr 11, 2024 09:38 AM PREVENTIVE MEDICINE NURSING NOTE: LOCAL TITLE: CLINICAL REMINDERS/NURSING STANDARD TITLE: PREVENTIVE MEDICINE NURSING NOTE DATE OF NOTE: APR 11, 2024@09:38 ENTRY DATE: APR 11, 2024@09:39:03 AUTHOR: OLAMIDE CAR COSIGNER: URGENCY: STATUS: COMPLETED Advance Directive Screen MH AD: Patient has an Advance Directive on file at this [facility]. No updates are needed at this time. The patient received education about Advance Directives and written notification of his/her rights. Suicide Screen: C-SSRS Screening [place] Suicide Severity Rating Scale (C-SSRS) screener 1. [...] required due to responses to other questions. Homelessness/Food Insecurity Screen: In the past 2 [...] Not worried about housing near future The [place] reports the following: Within the past 12 months, you worried whether your food would run out before you got money to buy more. Never true Within the past 12 months, the food you bought just didn't last and you didn't have money to get more. Never true Depression Screening: Perform PHQ-2 A PHQ-2 screen was performed. The score was 0 which is a negative screen for depression. Over the past two weeks, how often have you been bothered by the following problems? 1. Little interest or pleasure in doing things Not at all 2. Feeling down, depressed, or hopeless Not at all Falls & Incontinence Screen: Falls Screen: During the past 12 months, did the patient report any falls? 4. No falls within the past year. Incontinence Screen: During the past 12 months, has the patient has any characteristics of incontinence (ability, voiding, leakage, etc.)? No incontinence. Tobacco Use Screening: The patient is a former tobacco user. The patient quit five to less than fifteen years ago. Alcohol Use Screen (AUDIT-C): Alcohol Screen: [...] required due to responses to other questions. Influenza Immunization: Influenza, High-Dose, Trivalent, Preservative Free (Fluzone-Syringe) Administered: INFLUENZA, HIGH-DOSE, TRIVALENT, PF Date Administered: Apr 11, 2024 09:30 Wharf Worker: SANOFI PASTEUR Lot: [id number] Exp Date: Jan 12, 2025 [facility]: [id number] Admin Route/Site: INTRAMUSCULAR/RIGHT DELTOID Dosage: 0.5mL Vaccine Information Statement(s): INFLUENZA(FLU) VACC(INACTIVATED OR RECOMBINANT)VIS Feb 18, 2021 (TUNISIAN) Order By: Policy Administered By: Olamide Car The Influenza Vaccine Information Statement (VIS) was reviewed with the patient/caregiver which lists the benefits and risks of the vaccine and the risks of not receiving the Influenza vaccine. The patient/caregiver denied any prior severe reaction to this vaccine or its components or a severe allergic reaction, such as anaphylaxis, to any vaccine or any injectable therapy. The patient/caregiver gave verbal consent to receive the vaccine. COVID-19 Immunization: Refused Moderna Monovalent COVID-19 vaccine Immunization: COVID-19 (MODERNA), MRNA, LNP-S, PF, 50 MCG/0.5 ML (AGES 12+ YEARS) Refusal Reason: PATIENT DECISION Patient refuses all immunization(s) in the COVID-19 group Date Documented: 04/11/24 10:17 RHS Screen: RHS Screen Session Format: Face to Face Environmental Check Upon inquiry, the individual reports that the environment is safe to proceed. Informed Consent to Screen and Document The individual consents to proceed with screening. The individual consents to documentation of responses. PRIMARY SCREEN: In the past 12 months, how often did a current or former intimate partner (e.g., boyfriend, girlfriend, , , sexual partner): 1. Scream or curse at you Never 2. Insult or talk down to you Never 3. Threaten you with harm Never 4. Physically hurt you Never 5. Force or pressure you to have sexual contact against your will, or when you were unable to say no Never ?? The HITS tool (items 1-4 above) is US copyright protected by Dwight Eaton MD, and the user has full rights to use it throughout the [place] system. PRIMARY SCREEN RESULT: The Primary Screen is NEGATIVE. The individual answered never to all forms of IPV above (i.e., answered never to all 5 items) The individual accepts education and/or resources: No EDUCATION: The individual indicated readiness to learn. Education offered during this session as noted above. The individual indicated understanding by asking relevant questions and making appropriate comments. No barriers to learning were observed or identified. Respiratory Syncytial Virus (RSV) Vaccine: RSV vaccine administered today. Administered: RSV, BIVALENT, PROTEIN SUBUNIT RSVPREF, DILUENT RECONSTITUTED, 0.5 ML, PF Date Administered: Apr 11, 2024 09:30 Wharf Worker: [employer] Lot: [id number] Exp Date: Oct 13, 2024 [facility]: [id number] Admin Route/Site: INTRAMUSCULAR/LEFT DELTOID Dosage: 0.5mL Vaccine Information Statement(s): RSV (RESPIRATORY SYNCYTIAL VIRUS) VACCINE VIS May 03, 2023 (TUNISIAN) Order By: Rita Rosales Administered By: Olamide Car Comment: Sterile water diluent Lot #- [id number] 11/2024 Vaccine Information Sheet (VIS) was given to the patient/caregiver, education regarding adverse reactions was discussed, as well as barriers to learning, if any, were acknowledged. /kristen/ OLAMIDE CAR MSN, RN, CNL PRIMARY CARE TEAM NURSE Signed: 04/11/2024 10:19 OLAMIDE CAR [facility]
--- OUTSIDE RECORDS SUMMARY | 2024-06-26 00:34 | XMS_ITS | Encounter Summary ---
Author Name Department of Vetera Affairs ([place]) Organization Department of [place] Address [address] [place] [address] Care Team Providers Care Fiction And Nonfiction Author Name Role Phone LAURENT ROBLES Primary Care [...] PART A Dec 14, 2012 PART A [id number] [phone] GENEVIEVE ARNOLD JR PATIENT MEDICARE (WNR) MEDICARE (M) PART B Dec 14, 2012 PART B [id number] [phone] GENEVIEVE ARNOLD PATIENT MEDICARE PART D (WNR) PRESCRIPT ION PART D Dec 14, 2012 PART D [id number] GENEVIEVE ARNOLD PATIENT [facility] (WNR) MEDICARE ADVANTAGE [facility](W NR) Jul 16, 2022 [id number] GENEVIEVE ARNOLD PATIENT [facility] (WNR) MEDICARE ADVANTAGE [facility] (WNR) Jul 16, 2017 [id number] GENEVIEVE ARNOLD PATIENT Selected Encounter This section includes the information on record at OR for the Encounter. Date/Time Encounter Type Encounter Description Reason Provider Source Sep 26, 2023 02:37 PM TARGETED CASE MANAGEMENT ADMIN PAT ACTIVTIES (JEROME) JORGE L ARANAROSALES PUENTES Amaya Encounter Template Text not used by [place] Plan of Treatment: Future Appointments (+ 6 months) and Future Tests (+/- 45 days) The Plan of Treatment section includes future care activities for the patient from all [place] [facility]. This section includes future appointments and future orders which are active, pending or scheduled. Future Appointments This section includes appointments that were scheduled to occur 6 months from the date of the Encounter, up to a maximum of 20 appointments. The data comes from all [place] treatment facilities. Appointment Date/Time Appointment Type Appointme nt Facility Name Dec 20, 2023 11:00 AM AMBULATORY - REHAB MEDICIN E [facility] Mar 10, 2024 11:00 AM AMBULATORY - REHAB MEDICIN E [facility] Social History: Smoking Status (Most current) and Tobacco Use (All prior to encounter date) This section includes the most current, and the historical, smoking and tobacco- related health factors from the [place] facility where the Encounter took place. Current Smoking Status This section includes the most current smoking, or tobacco-related health factor, from the [place] facility where the Encounter took place. Date/Time Current Smoking Status Comment Facil ity Sep 24, 2023 09:00 AM OR-TOBACCO FORMER USER [facility] Tobacco Use History This section includes a history of the smoking, or tobacco-related health factors, that were collected on or before the date of the Encounter. The data comes from the [place] facility where the Encounter took place. Date/Time Smoking Status/Tobacco Use Comment F acility Sep 24, 2023 09:00 AM VA-TOBACCO FORMER USER [facility] Sep 24, 2023 09:00 AM OR-TOBACCO QUIT 5 TO < 15 YRS [facility] Advance Directives: All historical and current Section Date Range: From patient's date of to the date document was created. This section includes ALL of a patient's completed or amended [place] Advance and Rescinded Directives. The entries below indicate that a directive exists for the patient, but an actual copy is not included with this document. The data comes from all [place] facilities. Date Advance Directives Provider Source May 23, 2015 ADVANCE DIRECTIVE JEANAMBER BRIDGER Jarad Fragoso [facility] Encounter Notes: All associated encounter notes This section contains the clinical notes associated to the Encounter. Date/Time Encounter Note(s) Provider Source Sep 26, 2023 02:37 PM ADMINISTRATIVE NOT E: LOCAL TITLE: PCMM TVC ASSIGNMENT NOTE STANDARD TITLE: ADMINISTRATIVE NOTE DATE OF NOTE: SEP 26, 2023@14:37 ENTRY DATE: SEP 26, 2023@14:37:40 AUTHOR: YOANA ARANA EXP COSIGNER: URGENCY: STATUS: COMPLETED Record review completed as part of PCMM notification. Multi-PACT assignment for [facility] and [facility] approved in PCMM Web due to complexity of care. /kristen/ YOANA ARANA PA-C PHYSICIAN [employer] Signed: 09/26/2023 14:38 YOANA ARANA [facility]
--- OUTSIDE RECORDS SUMMARY | 2024-06-26 00:34 | XMS_ITS | Encounter Summary ---
Author Name Department of [place] Organization Department of [place] Address [address] [place] [address] Care Team Providers Care Fish Liver Sorter Name Role Phone LAURENT ROBLES Primary Care [...] PART A Dec 14, 2012 PART A [id number] GENEVIEVE ARNOLD JR PATIENT MEDICARE (WNR) MEDICARE (M) PART B Dec 14, 2012 PART B [id number] [phone] GENEVIEVE ARNOLD PATIENT MEDICARE PART D (WNR) PRESCRIPT ION PART D Dec 14, 2012 PART D [id number] GENEVIEVE ARNOLD PATIENT [facility] (WNR) MEDICARE ADVANTAGE [facility](W NR) Jul 16, 2022 [id number] GENEVIEVE ARNOLD PATIENT [facility] (WNR) MEDICARE ADVANTAGE [facility] (WNR) Jul 16, 2017 [id number] GENEVIEVE ARNOLD PATIENT Selected Encounter This section includes the information on record at [place] for the Encounter. Date/Time Encounter Type Encounter Description Reason Provider Source Dec 20, 2023 11:00 AM HEARING AID FITTING/CHECKIN G AUDIOLOGY ICD-10-CM Z46.1 Encounter for fitting and adjustment of hearing aid VIDAL HERR Amaya Encounter Template Text not used by [place] Assessments - Encounter Diagnoses This section includes the primary and secondary diagnoses documented for the Encounter. Date/Time Primary/Secondary Diagnosis Diagnosis Name Provider Source Dec 20, 2023 11:25 AM PRIMARY Encounter for fitting and adjustment of hearing aid VIDAL HERR [place] [facility] [place] [facility] Dec 20, 2023 11:25 AM SECONDARY Sensorineural hearing loss, bilateral ROSENDA HERRA E [place] [facility] [place] [facility] Plan of Treatment: Future Appointments (+ 6 months) and Future Tests (+/- 45 days) The Plan of Treatment section includes future care activities for the patient from all [place] [facility]. This section includes future appointments and future orders which are active, pending or scheduled. Future Appointments This section includes appointments that were scheduled to occur 6 months from the date of the Encounter, up to a maximum of 20 appointments. The data comes from all [place] treatment facilities. Appointment Date/Time Appointment Type Appointme nt Facility Name Mar 10, 2024 11:00 AM AMBULATORY - REHAB MEDICIN E [place] [facility] [place] [facility] Apr 11, 2024 09:30 AM AMBULATORY - MEDICINE [place] [facility] [place] [facility] Apr 11, 2024 11:00 AM AMBULATORY - REHAB MEDICIN E [place] [facility] [place] [facility] Apr 29, 2024 01:00 PM AMBULATORY - REHAB MEDICIN E [place] [facility] [place] [facility] May 19, 2024 02:00 PM AMBULATORY - MEDICINE [place] [facility] [place] [facility] May 20, 2024 09:00 AM AMBULATORY - REHAB MEDICIN E [place] [facility] [place] [facility] Social History: Smoking Status (Most current) and Tobacco Use (All prior to encounter date) This section includes the most current, and the historical, smoking and tobacco- related health factors from the [place] facility where the Encounter took place. Current Smoking Status This section includes the most current smoking, or tobacco-related health factor, from the [place] facility where the Encounter took place. Date/Time Current Smoking Status Comment Adria ity Apr 09, 2023 09:00 AM VA-TOBACCO FORMER USER [place] [facility] [place] [facility] Tobacco Use History This section includes a history of the smoking, or tobacco-related health factors, that were collected on or before the date of the Encounter. The data comes from the [place] facility where the Encounter took place. Date/Time Smoking Status/Tobacco Use Comment F acility Apr 09, 2023 09:00 AM VA-TOBACCO QUIT 5 TO < 15 YRS [facility] [place] [facility] Apr 13, 2022 09:30 AM VA-TOBACCO FORMER USER [place] [facility] [place] [facility] Apr 13, 2022 09:30 AM VA-TOBACCO QUIT 5 TO < 15 YRS [facility] [place] [facility] Apr 12, 2021 11:30 AM VA-TOBACCO FORMER USER [place] [facility] [place] [facility] Apr 12, 2021 11:30 AM VA-TOBACCO QUIT 5 TO < 15 YRS [facility] [place] [facility] Mar 19, 2020 09:00 AM VA-TOBACCO FORMER USER [place] [facility] [place] [facility] Mar 19, 2020 09:00 AM VA-TOBACCO QUIT 5 TO < 15 YRS [place] [facility] [place] [facility] December 12, 2018 10:18 AM VA-TOBACCO FORMER USER [place] [facility] [place] [facility] December 12, 2018 10:18 AM VA-TOBACCO QUIT 5 TO < 15 YRS [facility] [place] [facility] Jan 21, 2018 07:50 AM QUIT TOBACCO USE > 7 YEARS AGO [place] [facility] [place] [facility] Dec 25, 2016 10:59 AM QUIT TOBACCO USE > 7 YEARS AGO ND [facility] [place] [facility] Advance Directives: All historical and current Section Date Range: From patient's date of to the date document was created. This section includes ALL of a patient's completed or amended VA Advance and Rescinded Directives. The entries below indicate that a directive exists for the patient, but an actual copy is not included with this document. The data comes from all [place] facilities. Date Advance Directives Provider Source May 23, 2015 ADVANCE DIRECTIVE AMBER PENA [facility] Encounter Notes: All associated encounter notes This section contains the clinical notes associated to the Encounter. Date/Time Encounter Note(s) Provider Source Dec 20, 2023 09:00 AM AUDIOLOGY E & M NO TE: LOCAL TITLE: AUDIOLOGY CLINIC STANDARD TITLE: AUDIOLOGY E & M NOTE DATE OF NOTE: DEC 20, 2023@09:00 ENTRY DATE: DEC 20, 2023@09:00:03 AUTHOR: VIDAL HERR EXP COSIGNER: URGENCY: STATUS: COMPLETED [place] has a history of bilateral sensorineural hearing loss. He was seen on 12-20-23 for hearing aid follow up regarding his Poonam BTEs. He reports he is not able to understand speech well, especially in noise. Discussed hearing aid limitations, especially given WRS left ear. Tubing and nico covers were replaced. The listening check was positive for both hearing aids. Reset all sound management features from 3 to 4 and activated speech in loud noise feature. Hearing re-eval is recommended and was booked for 03-10-24 at 11am, RTC placed. /kristen/ Checo SCHULTZ, [facility]-A STAFF REGISTERED PHARMACIST Signed: 12/20/2023 11:27 Receipt Acknowledged By: 12/20/2023 11:36 /kristen/ PERCY ERWIN LEAD ADULT SECONDARY EDUCATION INSTRUCTOR [facility]ERR [facility]
--- OUTSIDE RECORDS SUMMARY | 2024-06-26 00:34 | XMS_ITS | Encounter Summary ---
Author Name [place] Address [address] [place] [address] Care Team Providers Care French Teacher Name Role Phone LAURENT ROBLES Primary Care [...] PART A Dec 14, 2012 PART A [id number] GENEVIEVE ARNOLD JR PATIENT MEDICARE (WNR) MEDICARE (M) PART B Dec 14, 2012 PART B [id number] GENEVIEVE ARNOLD PATIENT MEDICARE PART D (WNR) PRESCRIPT ION PART D Dec 14, 2012 PART D [id number] GENEVIEVE ARNOLD PATIENT [facility] (WNR) MEDICARE ADVANTAGE MCR(W NR) Jul 16, 2022 [id number] GENEVIEVE ARNOLD PATIENT [facility] (WNR) MEDICARE ADVANTAGE [facility] (WNR) Jul 16, 2017 [id number] GENEVIEVE ARNOLD PATIENT Selected Encounter This section includes the information on record at [place] for the Encounter. Date/Time Encounter Type Encounter Description Reason Pro vider Source Feb 08, 2024 11:40 AM Outpatient Encounter ADMIN PAT ACTIVTIES (MASNONCT) IHE Encounter Template Text not used by [place] Plan of Treatment: Future Appointments (+ 6 months) and Future Tests (+/- 45 days) The Plan of Treatment section includes future care activities for the patient from all [place] [facility]. This section includes future appointments and future orders which are active, pending or scheduled. Future Appointments This section includes appointments that were scheduled to occur 6 months from the date of the Encounter, up to a maximum of 20 appointments. The data comes from all [place] treatment facilities. Appointment Date/Time Appointment Type Appointme nt Facility Name Mar 10, 2024 11:00 AM AMBULATORY - REHAB MEDICIN E [place] [facility] [place] [facility] Apr 11, 2024 09:30 AM AMBULATORY - MEDICINE [place] [facility] [place] [facility] Apr 11, 2024 11:00 AM AMBULATORY - REHAB MEDICIN E [place] [facility] [place] [facility] Apr 29, 2024 01:00 PM AMBULATORY - REHAB MEDICIN E [place] [facility] [place] [facility] May 19, 2024 02:00 PM AMBULATORY - MEDICINE [place] C [facility] [place] [facility] May 20, 2024 09:00 AM [facility] Advance Directives: All historical and current Section Date Range: From patient's date of to the date document was created. This section includes ALL of a patient's completed or amended [place] Advance and Rescinded Directives. The entries below indicate that a directive exists for the patient, but an actual copy is not included with this document. The data comes from all [place] facilities. Date Advance Directives Provider Source May 23, 2015 [facility] Encounter Notes: All associated encounter notes This section contains the clinical notes associated to the Encounter. Date/Time Encounter Note(s) Provider Source Feb 07, 2024 11:40 AM NONVA NOTE: LOCAL TITLE: COMMUNITY CARE-ANASTASIIA SELF PRESENTING CARE COORD PLAN STANDARD TITLE: NONVA NOTE DATE OF NOTE: FEB 07, 2024@11:40 ENTRY DATE: FEB 08, 2024@11:41:03 AUTHOR: MACK MCKEON EXP COSIGNER: URGENCY: STATUS: COMPLETED COMMUNITY CARE-ANASTASIIA SELF PRESENTING CARE COORD PLAN NOTE Has ADDENDA Emergency Notification Intake Date Presenting to the Facility: Jan Method of Contact: Fax Centralized Call Center Notified [facility] Name: Hospital: [place] [address] [facility] [place] State: [place] Zip Code: [address] Community Facility Point of Contact: Name: Phone: Chief complaint: ELEVATED LIVER FUNCTION TESTS Primary Diagnosis: Disposition Admitted Route of Admission: ER Date of Admission: Jan Admitting Diagnosis: ELEVATED LIVER FUNCTION TESTS [facility] Provider: Nicolasa Level of Care: [id number] Clinical Review 02/07/2024 11:30 AM EDT /es/ MACK MCKEON ADVANCED MSA Signed: 02/08/2024 11:47 Receipt Acknowledged By: 02/19/2024 08:47 /kristen/ MARLON RAMIRES REGISTERED NURSE 02/08/2024 ADDENDUM STATUS: COMPLETED eligible for travel, 100% [place], no insurance listed on file. Call placed to [facility], [address] [place] [address] @[phone]. Call transferred to DAVE Roman who states that does not want transfer to [facility]. PTC to fax Refusal to Transfer to [phone]. File closed /kristen/ MARLON RAMIRES REGISTERED NURSE Signed: 02/08/2024 12:36 MACK MCKEON [facility]
--- OUTSIDE RECORDS SUMMARY | 2024-06-26 00:34 | XMS_ITS | Encounter Summary ---
Author Name Department of [place] Affairs [place] Organization [place] Address [address] [place] [id number] Care Team Providers Care Meter Maker Name Role Phone LAURENT ROBLES Primary Care [...] PART A Dec 14, 2012 PART A [id number] GENEVIEVE ARNOLD JR PATIENT MEDICARE (WNR) MEDICARE (M) PART B Dec 14, 2012 PART B [id number] GENEVIEVE ARNOLD PATIENT MEDICARE PART D (WNR) PRESCRIPT ION PART D Dec 14, 2012 PART D [id number] GENEVIEVE ARNOLD PATIENT [facility] (WNR) MEDICARE ADVANTAGE [facility](W NR) Jul 16, 2022 [id number] GENEVIEVE ARNOLD PATIENT [facility] (WNR) MEDICARE ADVANTAGE [facility] (WNR) Jul 16, 2017 [id number] [phone] GENEVIEVE ARNOLD PATIENT Selected Encounter This section includes the information on record at [place] for the Encounter. Date/Time Encounter Type Encounter Description Reason Pro vider Source Sep 24, 2023 12:00 AM Outpatient Encounter EVENT (HISTORICAL) IHE Encounter Template Text not used by [place] Plan of Treatment: Future Appointments (+ 6 months) and Future Tests (+/- 45 days) The Plan of Treatment section includes future care activities for the patient from all [place] [facility]. This section includes future appointments and future orders which are active, pending or scheduled. Future Appointments This section includes appointments that were scheduled to occur 6 months from the date of the Encounter, up to a maximum of 20 appointments. The data comes from all [place] treatment facilities. Appointment Date/Time Appointment Type Appointme nt Facility Name Dec 20, 2023 11:00 AM [facility] [place] [facility] Mar 10, 2024 11:00 AM AMBULATORY - [facility] Vital Signs: All taken on the encounter date This section contains inpatient and outpatient Vital Signs collected on the date of the Encounter. Date/Time Temperature Pulse Blood Pressure Respiratory Rate SP02 Pain Height Weight Body Mass Index Source Sep 24, 2023 01:06 PM 0 [facility] Sep 24, 2023 10:21 AM 0 [facility] Sep 24, 2023 09:26 AM 66 102/66 14 3 [facility] Sep 24, 2023 09:24 AM 98 65 129/86 18 97 3 66 206 33 [facility] Social History: Smoking Status (Most current) and Tobacco Use (All prior to encounter date) This section includes the most current, and the historical, smoking and tobacco- related health factors from the [place] facility where the Encounter took place. Current Smoking Status This section includes the most current smoking, or tobacco-related health factor, from the [place] facility where the Encounter took place. Date/Time Current Smoking Status Comment Adria borjay Sep 24, 2023 09:00 AM VA-TOBACCO FORMER USER [facility] Tobacco Use History This section includes a history of the smoking, or tobacco-related health factors, that were collected on or before the date of the Encounter. The data comes from the [place] facility where the Encounter took place. Date/Time Smoking Status/Tobacco Use Comment F acility Sep 24, 2023 09:00 AM VA-TOBACCO FORMER USER [facility] Sep 24, 2023 09:00 AM [place]-TOBACCO QUIT 5 TO < 15 YRS [facility] Advance Directives: All historical and current Section Date Range: From patient's date of to the date document was created. This section includes ALL of a patient's completed or amended [place] Advance and Rescinded Directives. The entries below indicate that a directive exists for the patient, but an actual copy is not included with this document. The data comes from all [place] facilities. Date Advance Directives Provider Source May 23, 2015 ADVANCE DIRECTIVE AMBER PENA CNT[facility]
--- OUTSIDE RECORDS SUMMARY | 2024-06-26 00:34 | XMS_ITS ---
Author Name [facility] [place] Address [address] [place] [address] Care Team Providers Care Student Career Development Specialist Name Role Phone LAURENT ROBLES Primary Care [...] PART A Dec 14, 2012 PART A [id number] GENEVIEVE ARNOLD JR PATIENT MEDICARE (WNR) MEDICARE (M) PART B Dec 14, 2012 PART B [id number] [phone] GENEVIEVE ARNOLD PATIENT MEDICARE PART D (WNR) PRESCRIPT ION PART D Dec 14, 2012 PART D [id number] GENEVIEVE ARNOLD PATIENT [facility] (WNR) MEDICARE ADVANTAGE [facility](W NR) Jul 16, 2022 [id number] GENEVIEVE ARNOLD PATIENT [facility] (WNR) MEDICARE ADVANTAGE [facility] (WNR) Jul 16, 2017 [id number] GENEVIEVE ARNOLD PATIENT Selected Encounter This section includes the information on record at [place] for the Encounter. Date/Time Encounter Type Encounter Description Reason Pro vider Source Apr 12, 2024 08:39 AM Outpatient Encounter COMMUNITY CARE CONSULT IHE Encounter Template Text not used by [place] Plan of Treatment: Future Appointments (+ 6 months) and Future Tests (+/- 45 days) The Plan of Treatment section includes future care activities for the patient from all [place] treatmentfacilities. This section includes future appointments and future orders which are active, pending or scheduled. Future Appointments This section includes appointments that were scheduled to occur 6 months from the date of the Encounter, up to a maximum of 20 appointments. The data comes from all [place] treatment facilities. Appointment Date/Time Appointment Type Appointme nt Facility Name Apr 29, 2024 01:00 PM AM[place]ULATORY [place] [facility] [place] [facility] May 19, 2024 02:00 PM [facility]ORY [facility] May 20, 2024 09:00 AM AM[place]UL[place] [facility] [facility] [place] [facility] Aug 25, 2024 08:30 AM AMBULATORY - [...] of theEncounter. The data comes from all [place] treatment facilities. Test Date/Time Test Type Test Details Facility Name Apr 17, 2024 08:33 AM Consult Order COMMUNITY CARE-PULMONARY Cons Language And Literature Division Chair's [facility] [place] [facility] Social History: Smoking Status (Most current) and Tobacco Use (All prior to encounter date) This section includes the most current, and the historical, smoking and tobacco- related health factors from the [place] facility where the Encounter took place. Current Smoking Status This section includes the most current smoking, or tobacco-related health factor, from the [place] facility where the Encounter took place. Date/Time Current Smoking Status Comment Adria childress Apr 11, 2024 09:30 AM [place]-TOBACCO QUIT 5 TO < 15 YRS [facility] [place] [facility] Tobacco Use History This section includes a history of the smoking, or tobacco-related health factors, that were collected on or before the date of the Encounter. The data comes from the [place] facility where the Encounter took place. Date/Time Smoking Status/Tobacco Use Comment F acility Apr 11, 2024 09:30 AM VA-TOBACCO QUIT 5 TO < 15 YRS [place] [facility] [place] [facility] Apr 09, 2023 09:00 AM VA-TOBACCO FORMER USER [facility] [place] [facility] Apr 09, 2023 09:00 AM VA-TOBACCO QUIT 5 TO < 15 YRS [facility] [place] [facility] Apr 13, 2022 09:30 AM VA-TOBACCO FORMER USER [facility] [place] [facility] Apr 13, 2022 09:30 AM VA-TOBACCO QUIT 5 TO < 15 YRS [place] [facility] [place] [facility] Apr 12, 2021 11:30 AM VA-TOBACCO FORMER USER [place] [facility] [place] [facility] Apr 12, 2021 11:30 AM VA-TOBACCO QUIT 5 TO < 15 YRS [place] [facility] [place] [facility] Mar 19, 2020 09:00 AM VA-TOBACCO FORMER USER [place] [facility] [place] [facility] Mar 19, 2020 09:00 AM VA-TOBACCO QUIT 5 TO < 15 YRS [place] [facility] [place] [facility] December 12, 2018 10:18 AM VA-TOBACCO FORMER USER [place] [facility] [place] [facility] December 12, 2018 10:18 AM VA-TOBACCO QUIT 5 TO < 15 YRS [place] [facility] [place] [facility] Jan 21, 2018 07:50 AM QUIT TOBACCO USE > 7 YEARS AGO [place] [facility] [place] [facility] Dec 25, 2016 10:59 AM QUIT TOBACCO USE > 7 YEARS AGO [place] [facility] [place] [facility] Advance Directives: All historical and current Section Date Range: From patient's date of to the date document was created. This section includes ALL of a patient's completed or amended [place] Advance and Rescinded Directives. The entries below indicate that a directive exists for the patient, but an actual copy is not included with this document. The data comes from all [place] facilities. Date Advance Directives Provider Source May 23, 2015 [facility] Encounter Notes: All associated encounter notes This section contains the clinical notes associated to the Encounter. Date/Time Encounter Note(s) Provider Source Apr 12, 2024 08:39 AM NONVA NOTE: LOCAL TITLE: [facility] SELF PRESENTING CARE COORD PLAN STANDARD TITLE: NONVA NOTE DATE OF NOTE: APR 12, 2024@08:39 ENTRY DATE: APR 12, 2024@08:39:08 AUTHOR: EULOGIO GARCIA EXP COSIGNER: URGENCY: STATUS: COMPLETED Emergency Notification Intake Date Presenting to the Facility: Feb Method of Contact: Notified from [employer] worklist Notification ID: [id number] [facility] Referral #: [id number] [facility] Name: Hospital: [facility] Address: City: [place] State: [place] Zip Code: Phone : [facility] Point of Contact: Name: Mel Phone: Chief complaint: ABNORMAL LIVER FUNCTION,JAUNDACE Primary Diagnosis: Disposition Discharged Date of discharge: Feb Discharge to Comment: ER Only /kristen/ EULOGIO OTERO Signed: 04/12/2024 08:40 Receipt Acknowledged By: * AWAITING SIGNATURE * ALF OLVERA * AWAITING SIGNATURE * SHARLENE GALLARDO * AWAITING SIGNATURE * PERCY POWLEL * AWAITING SIGNATURE * LIBERTAD PARDO DAWN MARIE MISSION
--- OUTSIDE RECORDS SUMMARY | 2024-06-26 00:35 | XMS_ITS | Encounter Summary ---
Author Name [facility] [place] Address [address] [place] [address] Care Team Providers Care Fruit Grading Supervisor Name Role Phone LAURENT ROBLES Primary Care [...] PART A Dec 14, 2012 PART A [id number] GENEVIEVE ARNOLD JR PATIENT MEDICARE (WNR) MEDICARE (M) PART B Dec 14, 2012 PART B [id number] GENEVIEVE ARNOLD PATIENT MEDICARE PART D (WNR) PRESCRIPT ION PART D Dec 14, 2012 PART D [id number] GENEVIEVE ARNOLD PATIENT [facility] (WNR) MEDICARE ADVANTAGE [facility](W NR) Jul 16, 2022 [id number] GENEVIEVE ARNOLD PATIENT [facility] (WNR) MEDICARE ADVANTAGE [facility] (WNR) Jul 16, 2017 [id number] GENEVIEVE ARNOLD PATIENT Selected Encounter This section includes the information on record at [place] for the Encounter. Date/Time Encounter Type Encounter Description Reason Provider Source Apr 29, 2024 01:00 PM HEARING AID CHECK BOTH EARS AUDIOLOGY ICD-10-CM Z46.1 Encounter for fitting and adjustment of hearing aid ANAIS ORTIZ Amaya Encounter Template Text not used by [place] Assessments - Encounter Diagnoses This section includes the primary and secondary diagnoses documented for the Encounter. Date/Time Primary/Secondary Diagnosis Diagnosis Name Provider Source Apr 29, 2024 01:13 PM PRIMARY Encounter for fitting and adjustment of hearing aid RENETTA DOBBS [facility] Apr 29, 2024 01:13 PM SECONDARY Sensorineural hearing loss, bilateral [facility]BBS [facility] Plan of Treatment: Future Appointments (+ 6 months) and Future Tests (+/- 45 days) The Plan of Treatment section includes future care activities for the patient [facility] [place] [facility]. This section includes future appointments and future orders which are active, pending or scheduled. Future Appointments This section includes appointments that were scheduled to occur 6 months from the date of the Encounter, up to a maximum of 20 appointments. The data comes from all [place] treatment facilities. Appointment Date/Time Appointment Type Appointme nt Facility Name May 19, 2024 02:00 PM [facility] May 20, 2024 09:00 AM [facility]BULAT[facility] Aug 25, 2024 08:30 AM AMBULATORY - MEDICINE [facility] Active, Pending, and Scheduled Orders This section includes a listing of several types of active, pending, and scheduled orders, including clinic medications orders, diagnostic test orders, procedure orders and consult orders; where the start date of the order is 45 days before the date of the Encounter or 45 days after the date of theEncounter. The data comes from all [place] treatment facilities. Test Date/Time Test Type Test Details Facility Name Apr 17, 2024 08:33 AM Consult Order COMMUNITY CARE-PULMONARY Cons Behavioral Interventionist's Choice [facility] Social History: Smoking Status (Most current) and Tobacco Use (All prior to encounter date) This section includes the most current, and the historical, smoking and tobacco- related health factors from the [place] facility where the Encounter took place. Current Smoking Status This section includes the most current smoking, or tobacco-related health factor, from the [place] facility where the Encounter took place. Date/Time Current Smoking Status Comment Facil ity Apr 11, 2024 09:30 AM VA-TOBACCO QUIT 5 TO < 15 YRS [place] [facility] Tobacco Use History This section includes a history of the smoking, or tobacco-related health factors, that were collected on or before the date of the Encounter. The data comes from the [place] facility where the Encounter took place. Date/Time Smoking Status/Tobacco Use Comment F acsridhar Apr 11, 2024 09:30 AM VA-TOBACCO QUIT 5 TO < 15 YRS [facility] [place] [facility] Apr 09, 2023 09:00 AM VA-TOBACCO FORMER USER [facility] [place] [facility] Apr 09, 2023 09:00 AM VA-TOBACCO QUIT 5 TO < 15 YRS [facility] [place] [facility] Apr 13, 2022 09:30 AM VA-TOBACCO FORMER USER [facility] [place] [facility] Apr 13, 2022 09:30 AM VA-TOBACCO QUIT 5 TO < 15 YRS [facility] [place] [facility] Apr 12, 2021 11:30 AM VA-TOBACCO FORMER USER [facility] [place] [facility] Apr 12, 2021 11:30 AM VA-TOBACCO QUIT 5 TO < 15 YRS [facility] [place] [facility] Mar 19, 2020 09:00 AM VA-TOBACCO FORMER USER [facility] [place] [facility] Mar 19, 2020 09:00 AM VA-TOBACCO QUIT 5 TO < 15 YRS [facility] [place] [facility] December 12, 2018 10:18 AM VA-TOBACCO FORMER USER [facility] [place] [facility] December 12, 2018 10:18 AM VA-TOBACCO QUIT 5 TO < 15 YRS [facility] [place] [facility] Jan 21, 2018 07:50 AM QUIT TOBACCO USE > 7 YEARS AGO [facility] [place] [facility] Dec 25, 2016 10:59 AM QUIT TOBACCO USE > 7 YEARS AGO [facility] Advance Directives: All historical and current Section Date Range: From patient's date of to the date document was created. This section includes ALL of a patient's completed or amended [place] Advance and Rescinded Directives. The entries below indicate that a directive exists for the patient, but an actual copy is not included with this document. The data comes from all [place] facilities. Date Advance Directives Provider Source May 23, 2015 ADVANCE DIRECTIVE AMBER PENA [facility] Encounter Notes: All associated encounter notes This section contains the clinical notes associated to the Encounter. Date/Time Encounter Note(s) Provider Source Apr 29, 2024 07:47 AM AUDIOLOGY NOTE: LOCAL TITLE: AUDIOLOGY HEALTH AUDIO ENGINEER STANDARD TITLE: AUDIOLOGY NOTE DATE OF NOTE: APR 29, 2024@07:47 ENTRY DATE: APR 29, 2024@07:47:18 AUTHOR: CHANA DOBBS EXP COSIGNER: ANAIS ORTIZ URGENCY: STATUS: COMPLETED AUDIOLOGY HEALTH AUDIO ENGINEER Has ADDENDA April 29, 2024 History/Background: [place] was seen for a hearing aid follow up, unaccompanied. The [place] presented today reporting the wire for his hearing aids are too short, he is afraid he is going to lose them. He also noted that he is getting the occlusion effect with these hearing aids. Hearing aids: [employer] INTENT 1 MINIRITE-Rs Serial Numbers: [id number] Battery size: Rechargeable Date Issued: 04/11/2024 Visual inspection revealed the hearing aids sitting slightly high on the Veterans ear, left higher than the right. Both hearing aids with canal lock microshell earmolds will be sent to the slotter operator helper to have the receivers replaced with a size 3 100 gain passport support associate and to make a larger vent. Plan: Upon receipt of the hearing aids/earmolds, [place] can be contacted to schedule a 30 min HAC with an Pipefitter Helper. /kristen/ CHANA DOBBS Audiology Health Field Professional Signed: 04/29/2024 14:08 /kristen/ ANAIS Rodriguez, CCC-A CHIEF, AUDIOLOGY/STONE GRADER Cosigned: 04/29/2024 14:12 05/07/2024 ADDENDUM STATUS: COMPLETED L&R hearing aids and earmolds received and certified. Per [employer] customer service a larger vent was able to be made on the right aid, the left did not have enough room at the tip of the canal. Also, replacement devices with new serial numbers were given and the customer service attendant was unsure why. New serial numbers: [id number]. Left a voicemail for the [place] to contact the clinic. Need to schedule 30 min HAC with an Pipefitter Helper. /kristen/ CHANA DOBBS Audiology Health Field Professional Signed: 05/07/2024 14:39 /kristen/ ANAIS Rodriguez, CCC-A CHIEF, AUDIOLOGY/STONE GRADER Cosigned: 05/07/2024 14:55 05/19/2024 ADDENDUM STATUS: COMPLETED Appointment scheduled on 05/20/2024. Hearing aids placed in [facility] cabinet. /kristen/ CHANA DOBBS Audiology Health Field Professional Signed: 05/19/2024 08:07 /kristen/ ZACK NEIL, CCC-A STAFF AIR COMPRESSOR MECHANIC Cosigned: 05/19/2024 08:28 CHANA DOBBS [facility]
--- OUTSIDE RECORDS SUMMARY | 2024-06-26 00:35 | XMS_ITS | Encounter Summary ---
Author Name [place] Address [address] [place] [id number] Care Team Providers Care Innersole Maker Name Role Phone LAURENT ROBLES Primary [...] PART A Dec 14, 2012 PART A [id number] GENEVIEVE ARNOLD JR PATIENT MEDICARE (WNR) MEDICARE ([place]) PART B Dec 14, 2012 PART B [id number] GENEVIEVE ARNOLD PATIENT MEDICARE PART D (WNR) PRESCRIPT ION PART D Dec 14, 2012 PART D [id number] GENEVIEVE ARNOLD PATIENT [facility] (WNR) MEDICARE ADVANTAGE [facility](W NR) Jul 16, 2022 [id number] GENEVIEVE ARNOLD PATIENT [facility] (WNR) MEDICARE ADVANTAGE [facility] (WNR) Jul 16, 2017 [id number] GENEVIEVE ARNOLD PATIENT Selected Encounter This section includes the information on record at [place] for the Encounter. Date/Time Encounter Type Encounter Description Reason Pro vider Source Apr 18, 2024 03:31 PM Outpatient Encounter PRIMARY CARE/MEDICINE IHE Encounter Template Text not used by [place] Plan of Treatment: Future Appointments (+ 6 months) and Future Tests (+/- 45 days) The Plan of Treatment section includes future care activities for the patient from all [place] [facility] This section includes future appointments and future orders which are active, pending or scheduled. Future Appointments This section includes appointments that were scheduled to occur 6 months from the date of the Encounter, up to a maximum of 20 appointments. The data comes from all [place] treatment facilities. Appointment Date/Time Appointment Type Appointme nt Facility Name Apr 29, 2024 01:00 PM [facility]UL[facility] May 19, 2024 02:00 PM [facility] May 20, 2024 09:00 AM [facility] Aug 25, 2024 08:30 AM AMBULATORY - MEDICINE [facility] Active, Pending, and Scheduled Orders This section includes a listing of several types of active, pending, and scheduled orders, including clinic medications orders, diagnostic test orders, procedure orders and consult orders; where the start date of the order is 45 days before the date of the Encounter or 45 days after the date of theEncounter. The data comes from all [place] treatment [facility]. Test Date/Time Test Type Test Details Facility Name Apr 17, 2024 08:33 AM Consult Order COMMUNITY CARE-PULMONARY Cons Make Up Girl's Choice [facility] Social History: Smoking Status (Most current) and Tobacco Use (All prior to encounter date) This section includes the most current, and the historical, smoking and tobacco- related health factors from the [place] facility where the Encounter took place. Current Smoking Status This section includes the most current smoking, or tobacco-related health factor, from the [place] facility where the Encounter took place. Date/Time Current Smoking Status Minoo childress Sep 24, 2023 09:00 AM VA-TOBACCO FORMER USER [facility] Tobacco Use History This section includes a history of the smoking, or tobacco-related health factors, that were collected on or before the date of the Encounter. The data comes from the [place] facility where the Encounter took place. Date/Time Smoking Status/Tobacco Use Comment F acility Sep 24, 2023 09:00 AM VA-TOBACCO FORMER USER [facility] Sep 24, 2023 09:00 AM VA-TOBACCO QUIT 5 TO < 15 YRS [facility] Advance Directives: All historical and current Section Date Range: From patient's date of to the date document was created. This section includes ALL of a patient's completed or amended [place] Advance and Rescinded Directives. The entries below indicate that a directive exists for the patient, but an actual copy is not included with this document. The data comes from all [place] facilities. Date Advance Directives Provider Source May 23, 2015 ADVANCE DIRECTIVE AMBER PENA [facility] Encounter Notes: All associated encounter notes This section contains the clinical notes associated to the Encounter. Date/Time Encounter Note(s) Provider Source Apr 21, 2024 12:59 PM INFECTIOUS DISEASE NOTE: LOCAL TITLE: COVID-19 LONG COVID PRE-SCREEN/SCREEN STANDARD TITLE: INFECTIOUS DISEASE NOTE DATE OF NOTE: APR 21, 2024@12:59:31 ENTRY DATE: APR 21, 2024@12:59:31 AUTHOR: JUNIOR SINGH EXP COSIGNER: URGENCY: STATUS: COMPLETED Assessments were sent to the via text/email. These assessments were completed by GENEVIEVE ARNOLD JR on their own device on 04/18/2024 3:31:38 PM. LONG COVID PRESCREEN (LONG-C19) 1. Have you had COVID-19: Yes 2. Are any symptoms still bothering you since having COVID-19: Yes 3. How these symptoms have affected your quality of life in the last two weeks (0 represents worst quality of life with symptoms; 10 represents best quality of life with symptoms): 0 4. Would you like to be contacted by one of our VA team members to talk more about your ongoing symptoms: No /kristen/ JUNIOR SINGH PA-C Signed: 04/21/2024 13:04 JUNIOR SINGH [facility]
--- OUTSIDE RECORDS SUMMARY | 2024-06-26 00:35 | XMS_ITS ---
Author Name [facility] Organization [facility] [place] Address [address] [place] [address] Care Team Providers Care Improvement Spec Name Role Phone LAURENT ROBLES Primary Care [...] PART A Dec 14, 2012 PART A [id number] GENEVIEVE ARNOLD JR PATIENT MEDICARE (WNR) MEDICARE (M) PART B Dec 14, 2012 PART B [id number] GENEVIEVE ARNOLD PATIENT MEDICARE PART D (WNR) PRESCRIPT ION PART D Dec 14, 2012 PART D [id number] GENEVIEVE ARNOLD PATIENT [facility] (WNR) MEDICARE ADVANTAGE [facility](W NR) Jul 16, 2022 [id number] GENEVIEVE ARNOLD PATIENT [facility] (WNR) MEDICARE ADVANTAGE [facility] (WNR) Jul 16, 2017 [id number] GENEVIEVE ARNOLD PATIENT Selected Encounter This section includes the information on record at [place] for the Encounter. Date/Time Encounter Type Encounter Description Reason Pro vider Source Apr 18, 2024 09:21 AM Outpatient Encounter PRIMARY CARE/MEDICINE IHE Encounter Template Text not used by [place] Plan of Treatment: Future Appointments (+ 6 [...] 20 appointments. The data comes from all [place] treatment facilities. Appointment Date/Time Appointment Type Appointme nt Facility Name Apr 29, 2024 01:00 PM AMBULATORY - [place] MEDICIN [place] [facility] [place] [facility] May 19, 2024 02:00 PM AMBULATORY - MEDICINE [facility] [place] [facility] May 20, 2024 09:00 AM AMBULATORY - [place] MEDICIN E [place] [facility] [place] [facility] Aug 25, 2024 08:30 AM AMBULATORY - MEDICINE [facility] Active, Pending, and Scheduled Orders This section includes a listing of several types of active, pending, and scheduled orders, including clinic medications orders, diagnostic test orders, procedure orders and consult orders; where the start date of the order is 45 days before the date of the Encounter or 45 days after the date of theEncounter. The data comes from all [place] treatment facilities. Test Date/Time Test Type Test Details Facility Name Apr 17, 2024 08:33 AM Consult Order COMMUNITY CARE-PULMONARY Cons Chief Librarian Circulation [facility]'s [facility] [place] [facility] Social History: Smoking Status (Most current) and Tobacco Use (All prior to encounter date) This section includes the most current, and the historical, smoking and tobacco- related health factors from the [place] facility where the Encounter took place. Current Smoking Status This section includes the most current smoking, or tobacco-related health factor, from the [place] facility where the Encounter took place. Date/Time Current Smoking Status Minoo childress Apr 11, 2024 09:30 AM VA-TOBACCO [facility] Tobacco Use History This section includes a history of the smoking, or tobacco-related health factors, that were collected on or before the date of the Encounter. The data comes from the [place] facility where the Encounter took place. Date/Time Smoking Status/Tobacco Use Comment F acility Apr 11, 2024 09:30 AM VA-TOBACCO QUIT 5 TO < 15 YRS [place] [facility] [place] [facility] Apr 09, 2023 09:00 AM VA-TOBACCO FORMER USER [facility] [place] [facility] Apr 09, 2023 09:00 AM VA-TOBACCO QUIT 5 TO < 15 YRS [facility] [place] [facility] Apr 13, 2022 09:30 AM VA-TOBACCO FORMER USER [place] [facility] [place] [facility] Apr 13, 2022 09:30 AM VA-TOBACCO QUIT 5 TO < 15 YRS [place] [facility] [place] [facility] Apr 12, 2021 11:30 AM VA-TOBACCO FORMER USER [place] [facility] [place] [facility] Apr 12, 2021 11:30 AM VA-TOBACCO QUIT 5 TO < 15 YRS [place] [facility] [place] [facility] Mar 19, 2020 09:00 AM VA-TOBACCO FORMER USER [place] [facility] [place] [facility] Mar 19, 2020 09:00 AM VA-TOBACCO QUIT 5 TO < 15 YRS [place] [facility] [place] [facility] December 12, 2018 10:18 AM VA-TOBACCO FORMER USER [place] [facility] [place] [facility] December 12, 2018 10:18 AM VA-TOBACCO QUIT 5 TO < 15 YRS [place] [facility] [place] [facility] Jan 21, 2018 07:50 AM QUIT TOBACCO USE > 7 YEARS AGO [place] [facility] [place] [facility] Dec 25, 2016 10:59 AM QUIT TOBACCO USE > 7 YEARS AGO [place] [facility] Advance Directives: All historical and current [...] May 23, 2015 ADVANCE DIRECTIVE AMBER PENA [facility] Encounter Notes: All associated encounter notes This section contains the clinical notes associated to the Encounter. Date/Time Encounter Note(s) Provider Source Apr 18, 2024 09:21 AM ADMINISTRATIVE NOTE: LOCAL TITLE: FAX/MAIL RECEIVED STANDARD TITLE: ADMINISTRATIVE NOTE DATE OF NOTE: APR 18, 2024@09:21 ENTRY DATE: APR 18, 2024@09:21:19 AUTHOR: JAYA DARDEN EXP COSIGNER: URGENCY: STATUS: COMPLETED Document Received On: Apr Document Type: Other: RMV DISABLED PARKING PLACARD/PLATE Date of Service: Apr Facility and or Provider: Blodgett brought in Contact Information: Blodgett asking to pickup driver form on this coming Sunday. PCP of Record: PERCY BULLOCK Next visit with PCP: 04/22/2024 13:30 CWM NO AUDIO MAINT 01/13/2025 11:00 CWM/NO/PACT 5 Primary Care May keep copies of this document for up to 14 days and send the original for scanning. /kristen/ JAYA DARDEN AMSA Signed: 04/18/2024 09:23 JAYA DARDEN [facility]
--- OUTSIDE RECORDS SUMMARY | 2024-06-26 00:35 | XMS_ITS | Patient Health Record ---
Author Organization [facility] Address [address] [place] [address] Care Team Providers Care Field Marketing Team Leader Name Role Phone Po Any CUI Primary Care Provider UnavailDarrian Lockett Unavailable [phone] XUAN SHEARER Unavailable Unavailab le ALLERGIES Allergen (clinical drug ingredient) Drug/Non Drug Allergy documented on EMR Reaction Allergy Type Onset Date Status doxycycline Doxycycline jaundice Drug Allergy Act eva amoxicillin Amoxicillin jaundice Drug Allergy Act eva RESULTS Component Value Reference Range Notes Complete Blood Count no Diff Reviewed date:02/22/2024 05:51:08 PM Interpretation: Performing Lab:[facility], [address] [place] [phone] Notes/Report: White Blood Count 5.7 4.8-10.8 X10*3/uL Red Blood Count 5.00 4.60-5.80 X10*6/uL Hemoglobin 15.3 14.0-18.0 g/dl Hematocrit 45.2 42.0-52.0 % Mean Corpuscular Volume 90.4 80.0-98.0 fL Mean Corpuscular Hemoglobin 30.6 27.0-33.0 pg Mean Corpuscular HGB Conc 33.8 31.0-36.0 g/dl Red Cell Distribution Width 13.9 11.0-16.0 % Platelet Count 308 160-400 X10*3/uL Mean Platelet Volume 9.7 9.4-12.4 fL NRBC Pct Auto 0.0 0.0-0.2 /100WBC NRBC Abs Auto 0.000 0.0-0.012 X10*3/uL Prothrombin Time INR Reviewed date:02/22/2024 05:55:38 PM Interpretation: Performing Lab:[facility], [address] [place] [phone] Notes/Report: Prothrombin Time 12.9 11.1-13.3 SEC INTERNATIONAL NORM RATIO 1.1 0.9-1.1 INTERNATIONAL NORMALIZED RATIO (INR) REFERENCE RANGES Reference Range For patients not on anticoagulant therapy: 0.9 - 1.1 INR ranges for oral anticoagulant therapy: For prevention and treatment of venous thrombosis and pulmonary embolism: 2.0 - 3.0 For acute myocardial infarction with aspirin therapy: 2.0 - 3.0 For acute myocardial infarction without aspirin therapy: 3.0 - 4.0 For patients with mechanical prosthetic heart valves: 2.5 - 3.5 Liver Panel Reviewed date:02/22/2024 06:05:52 PM Interpretation: Performing Lab:[facility], [address] [place] [phone] Notes/Report: Bilirubin Total 4.7 0.0-1.0 mg/dL Bilirubin Direct 3.4 0.0-0.5 mg/dL Aspartate Amino Transferase 52 5-37 U/L Alanine Aminotransferase 77 0-40 U/L Total Protein 7.7 6.5-8.0 g/dL Albumin Level 4.0 3.5-5.0 g/dL Alkaline Phosphatase 141 39-117 U/L IRON PROFILE Reviewed date:02/22/2024 05:55:56 PM Interpretation: Performing Lab:[facility], [address] [place] [phone] Notes/Report: Iron 127 45-160 mcg/dL Total Iron Binding Capacity 291 228-428 mcg/d L Percent Iron Saturation 44 15-50 % Unsaturated Iron Binding 164 Ferritin Reviewed date:02/22/2024 05:56:05 PM Interpretation: Performing Lab:[address] [phone] Notes/Report: Ferritin 366 20-250 ng/mL SANDY Reflex Titer and Pattern Reviewed date:02/25/2024 10:47:25 PM Interpretation: Performing Lab:[address] [phone] Notes/Report: Anti Nuclear Antibody Screen NEGATIVE NEGATIVE SANDY IFA is a first line screen for detecting the presence of up to approximately 150 autoantibodies in various autoimmune diseases. A negative SANDY IFA result suggests an SANDY-associated autoimmune disease is not present at this time, but is not definitive. If there is high clinical suspicion for Sjogren's syndrome, testing for anti-SS-A/Ro antibody should be considered. Anti-Ondina-1 antibody should be considered for clinically suspected inflammatory myopathies. AC-0: Negative International Consensus on SANDY Patterns (https://doi.org/10.1515/c zgy-5087-5238) For additional information, please refer to http://education.j-Grab.LumaCyte/faq/WJV557 (This link is being provided for informational/ educational purposes only.) THIS TEST WAS PERFORMED AT: [facility] [address] [place] [phone] AMILCAR ZABALA MD Anti Nuclear Antibody Titer TNP Anti Nuclear Antibody Pattern TNP SANDY Titer 2 TNP SANDY Pattern 2 TNP SANDY Titer 3 TNP SANDY Pattern 3 TNP Mitochondrial Antibody Reviewed date:03/03/2024 11:29:34 PM Interpretation: Performing Lab:[address] [phone] Notes/Report: Mitochondrial Antibodies NEGATIVE NEGATIVE The specimen was negative for cytoplasmic antibodies, however additional staining was observed suggesting the presence of Antinuclear Antibodies. Consider requesting order code 249, SANDY Screen, IFA with Reflex to Titer and Pattern, or order code [id number], SANDY Screen, IFA w/reflex Titer/Pattern, and Reflex to Multiplex 11 Ab [place], if clinically indicated. THIS TEST WAS PERFORMED AT: [facility] [address] [place] [phone] AMILCAR ZABALA MD Mitochondrial Ab Titer TNP Smooth Muscle Antibody Reviewed date:03/03/2024 11:29:41 PM Interpretation: Performing Lab:[address] [phone] Notes/Report: Smooth Muscle Antibody <20 <20 U Reference Range: <20 U: Negative >or=20 U: Positive Antibodies recognizing actin are the main component of smooth muscle antibodies associated with auto- immune liver disease. Actin antibodies are found in approximately 75% of patients with autoimmune hepatitis (AIH) type 1, approximately 65% of patients with autoimmune cholangitis, approximately 30% of patients with primary biliary cirrhosis and approximately 2% of healthy controls. High values are closely correlated with AIH type 1. THIS TEST WAS PERFORMED AT: [facility] [address] [place] [address] ANGEL VIDAL MD,PHD Hepatitis A,B,C Profile Reviewed date:02/22/2024 05:56:33 PM Interpretation: Performing Lab:[address] [phone] Notes/Report: Hepatitis A Antibody IgM Nonreactive Nonreactive IgM antibodies to HAV not detected; does not exclude early acute or recovered HAV infection. Hepatitis B Surface Antibody NONREACTIVE Nonreactive Nonreactive: < 8.00 mIU/mL Hepatitis B Core Antibody Nonreactive Nonreactive Hepatitis C Antibody Nonreactive Nonreactive Antibodies to HCV not detected; does not exclude early acute HCV infection. Hepatitis B Surface Antigen Negative Negative Ammonia Reviewed date:02/29/2024 07:55:27 PM Interpretation: Performing Lab:[address] [phone] Notes/Report: Ammonia 28 13-55 umol/L Complete Blood Count Auto Di ff Reviewed date:02/29/2024 07:54:38 PM Interpretation: Performing Lab:[address] [phone] Notes/Report: White Blood Count 6.5 4.8-10.8 X10*3/uL Red Blood Count 5.02 4.60-5.80 X10*6/uL Hemoglobin 15.3 14.0-18.0 g/dl Hematocrit 45.1 42.0-52.0 % Mean Corpuscular Volume 89.8 80.0-98.0 fL Mean Corpuscular Hemoglobin 30.5 27.0-33.0 pg Mean Corpuscular HGB Conc 33.9 31.0-36.0 g/dl Red Cell Distribution Width 13.0 11.0-16.0 % Platelet Count 234 160-400 X10*3/uL Mean Platelet Volume 9.9 9.4-12.4 fL Neutrophils Percent Auto 61.8 45-73 % Imm Gran Pct Auto 0.5 0.0-0.4 % Lymphocytes Percent Auto 24.3 20-40 % Monocytes Percent Auto 10.8 2-11 % Eosinophils Percent Auto 1.8 0-4 % Basophils Percent Auto 0.8 0-2 % NRBC Pct Auto 0.0 0.0-0.2 /100WBC Neutrophils Absolute Auto 4.0 2.0-8.3 x10*3/u L Imm Gran Abs Auto 0.03 0.00-0.03 X10*3/uL Lymphocytes Absolute Auto 1.6 1.2-4.9 X10*3/u L Monocytes Absolute Auto 0.7 0.1-1.2 X10*3/uL Eosinophils Absolute Auto 0.1 0.0-0.4 X10*3/u L Basophils Absolute Auto 0.1 0.0-0.2 X10*3/uL NRBC Abs Auto 0.000 0.0-0.012 X10*3/uL Partial Thromboplastin Time Reviewed date:02/29/2024 07:54:46 PM Interpretation: Performing Lab:[address] [phone] Notes/Report: Partial Thromboplastin Time 39.0 26.0-36.8 SEC For information regarding the monitoring of direct thrombin inhibitors, please refer to Pharmacy. Liver Panel Reviewed date:03/02/2024 11:08:18 PM Interpretation: Performing Lab:[address] [phone] Notes/Report: Bilirubin Total 2.5 0.0-1.0 mg/dL Bilirubin Direct 1.6 0.0-0.5 mg/dL Aspartate Amino Transferase 58 5-37 U/L Alanine Aminotransferase 87 0-40 U/L Total Protein 7.4 6.5-8.0 g/dL Albumin Level 3.8 3.5-5.0 g/dL Alkaline Phosphatase 111 39-117 U/L Basic Metabolic Panel Reviewed date:02/29/2024 07:55:19 PM Interpretation: Performing Lab:[address] [phone] Notes/Report: Sodium 140 135-145 mmol/L Potassium 4.6 3.3-5.1 mmol/L Chloride 104 96-108 mmol/L Carbon Dioxide 30 22-29 mmol/L Anion Gap 11 12-20 Blood Urea Nitrogen 15 9-16 mg/dL Creatinine 0.96 0.5-1.4 mg/dL Estimated Glomerular Filt Rate > 60 NOTE: For -Swiss individuals, multiply the result by 1.210. Chronic Kidney Disease: Estimated GFR < 60 mL/min/1.73m2 Severe Kidney Disease: Estimated GFR < 15 mL/min/1.73m2 Glucose Random 98 60-115 mg/dL Calcium 10.1 8.4-10.2 mg/dL Liver Panel Reviewed date:03/12/2024 07:33:03 AM Interpretation: Performing Lab:[facility], [address] [place] [phone] Notes/Report: Bilirubin Total 1.3 0.0-1.0 mg/dL Bilirubin Direct 0.8 0.0-0.5 mg/dL Aspartate Amino Transferase 37 5-37 U/L Alanine Aminotransferase 71 0-40 U/L Total Protein 7.7 6.5-8.0 g/dL Albumin Level 4.1 3.5-5.0 g/dL Alkaline Phosphatase 90 39-117 U/L Blood Urea Nitrogen Reviewed date:03/10/2024 11:20:43 PM Interpretation: Performing Lab:[facility], [address] [place] [phone] Notes/Report: Blood Urea Nitrogen 15 9-16 mg/dL Creatinine Reviewed date:03/10/2024 11:20:50 PM Interpretation: Performing Lab:[facility], [address] [place] [phone] Notes/Report: Creatinine 0.86 0.5-1.4 mg/dL Estimated Glomerular Filt Rate > 60 NOTE: For -Swiss individuals, multiply the result by 1.210. Chronic Kidney Disease: Estimated GFR < 60 mL/min/1.73m2 Severe Kidney Disease: Estimated GFR < 15 mL/min/1.73m2 Liver Panel Reviewed date:03/31/2024 08:49:38 AM Interpretation: Performing Lab:[facility], [address] [place] [phone] Notes/Report: Bilirubin Total 1.1 0.0-1.0 mg/dL Bilirubin Direct 0.5 0.0-0.5 mg/dL Aspartate Amino Transferase 28 5-37 U/L Alanine Aminotransferase 49 0-40 U/L Total Protein 7.0 6.5-8.0 g/dL Albumin Level 3.9 3.5-5.0 g/dL Alkaline Phosphatase 72 39-117 U/L REASON FOR REFERRAL No Information MEDICATIONS Medication SIG (Take, Route, Frequency, Duration) Notes Start Date End Date Status Dupixent 300 MG/2ML Subcutaneous for 28 Active Metoprolol Tartrate 50 MG Oral for 45 Active Tranexamic Acid 650 MG as directed Orally Not-Taking Simvastatin 40 MG Oral for 90 Active DOCEtaxel 20 MG/2ML as directed Intravenous Not-Taking Gemcitabine HCl 200 MG as directed Intravenous Not-Taking Omeprazole 20 MG 1 capsule 30 minutes before morning meal Orally Once a day for 30 day(s) Active Advair Diskus 100-50 MCG/DOSE as directed Inhalation Activ e Advair HFA 230-21 MCG/ACT Inhalation for 30 Active Eliquis 5 MG TAKE 1 TABLET BY ASHLEY TH TWICE A DAY Oral for 90 Active IMMUNIZATIONS Vaccine Route Administration Date Status Comme nts Influenza Unknown 03/16/2019 Administered Influenza Unknown 03/16/2022 Administered Influenza Unknown 05/03/2022 Administered SOCIAL HISTORY Sex Assigned At : Social History Observation Description Sex Assigned At Unknown PROBLEMS Problem Type ICD Code Onset Dates Problem Status W/U Status Risk SNOMED Code Notes Problem Encounter for screening for malignant neoplasm of colon (Z12.11) Active confirmed 894671449 Problem Elevated LFTs (R79.89) Active confirmed 303244640 Problem Preprocedural examination (Z01.818) Active confirmed 232926125193447 Problem Iron excess (E83.19) Active confirmed 73951020 Problem Jaundice (R17) Active confirmed Jaundic e (80566337) Problem Hx of adenomatous colonic polyps (Z86.010) Active confirmed 698923350 Problem Pruritus (L29.9) Active confirmed Pruri tus (378175533) Problem Elevated liver function tests (R94.5) Active confirmed Elevated liver enzymes level (241228286) VITAL SIGNS Blood pressure diastolic 00 mm Hg 05/16/2024 Height 66 in 05/16/2024 Blood pressure systolic 00 mm Hg 05/16/2024 Weight 205 lbs 05/16/2024 BMI 33.08 kg/m2 05/16/2024 Encounters Encounter Location Date Provider Diagnosis [facility] [address] [place] [phone] 02/26/2024 Darrain Khan Jaundice R17 and Pruritus L29.9 [facility] [address] [place] [id number] 05/16/2024 Darrian Khan Hx of adenomatous colonic polyps Z86.010 ; Jaundice R17 and Encounter for screening for malignant neoplasm of colon Z12.11 Test [place] [address] 02/19/2024 Darrian Khan Elevated LFTs R79.89 [facility] [place] [address] [place] [phone] 03/02/2024 Darrian Khan Elevated liver function tests R94.5 [facility] [place] [phone] 03/13/2024 Darrian Khan Elevated liver function tests R94.5 ASSESSMENTS Encounter Date Diagnosis Assessment Notes Treatment Notes Treatment Clinical Notes 02/26/2024 Jaundice (ICD-10 - R17) 02/26/2024 Pruritus (ICD-10 - L29.9) 05/16/2024 Jaundice (ICD-10 - R17) 05/16/2024 Hx of adenomatous colonic polyps (ICD-10 - Z86.010) We will discuss colonoscopy when I see you in 202402/19/2024 Elevated LFTs (ICD-10 - R79.89) 03/02/2024 Elevated liver function tests (ICD-10 - R94.5) 03/13/2024 Elevated liver function tests (ICD-10 - R94.5) 05/16/2024 Encounter for screening for malignant neoplasm of colon (ICD-10 - Z12.11) PLAN OF TREATMENT Pending Test Test Name Order Date CHEM 7 PROFILE 06/16/2022 CHEM 7 PROFILE 02/26/2024 CHEM 7 PROFILE 06/14/2022 LIVER PROFILE 06/21/2022 LIVER PROFILE 08/11/2022 LIVER PROFILE 03/02/2024 LIVER PROFILE 06/16/2022 LIVER PROFILE 06/29/2022 LIVER PROFILE 03/13/2024 LIVER PROFILE 02/26/2024 LIVER PROFILE 06/14/2022 LIVER PROFILE 08/11/2022 LIVER PROFILE 02/19/2024 IRON + IBC (FE) 08/11/2022 IRON + IBC (FE) 02/19/2024 IRON + IBC (FE) 08/11/2022 IRON + IBC (FE) 06/16/2022 FERRITIN 02/19/2024 CRP 06/16/2022 CBC w DIFF 02/26/2024 CBC w DIFF 06/14/2022 CBC w/o DIFF 02/19/2024 SED RATE (ESR) 06/16/2022 PROTHROMBIN TIME (PT, INR) 06/16/2022 PROTHROMBIN TIME (PT, INR) 02/26/2024 PROTHROMBIN TIME (PT, INR) 06/21/2022 PROTHROMBIN TIME (PT, INR) 02/19/2024 HEPATITIS A,B,C PROFILE 06/16/2022 HEPATITIS A,B,C PROFILE 02/19/2024 [id number] (A1A) 06/16/2022 MITOCHONDRIAL AB 02/19/2024 SMOOTH MUSCLE ANTIBODIES 02/19/2024 MRI ABD W&WO CONTRAST 06/16/2022 FLUOR. ANTINUCLEAR AB SCREEN ([facility]) 12/2023 FLUOR. ANTINUCLEAR AB SCREEN ([facility]) 08/2021 Prothrombin Time INR 06/29/2022 Ferritin 08/11/2022 Ferritin 08/11/2022 Future Test Test Name Order Date COLONOSCOPY 01/27/2014 COLONOSCOPY 11/20/2019 Next Appt Details Provider Name:Darrian Allen Khan , 11/20/2024 09:40:00 AM, [address] [place] [address], [facility] [address], [place], [address], Insurance Providers Payer Name Payer Address Payer Phone Subscriber Number Group Number Insured Name Patient Relationship to Insured Coverage Start Date Coverage End Date [facility] [address] [address] [place] [address] [id number] GENEVIEVE ARNOLD Self - patient is the insured MEDICAL (GENERAL) HISTORY Medical History History ICD Code Hyperlipidemia Colonoscopy 10-12-2008--1 tub ular adenoma removed; colonoscopy 03/2014 with 2 small tubular adenomas EGD [place] [address] Walter-- negative except for mild reflux-there was no Hough's esophagus nor significant esophagitis Irregular heartbeat--Atrial fibrillation/PVC's--Dr. Shearer. Had an ablation in 04/[address] Brownlee Denies MT,DM,CVA,Lung disease,renal dise ase Bladder cancer 06/2013--has periodic cystoscopies with infusions of chemotherapy with Dr. Alicea HTN Sleep apnea-uses CPAP Negative colonoscopy 11/2019 COPD/Asthma-sees Dr. Shahnaz ACOSTA 01/2022 Negative followup screening colonoscopy in November of 2019 Intestinal blockages in 2020 (surgery as below) and 2021(NG tube and no surgery) Jaundice and elevated LFTs i n late May of 2022--resolved spontaneously and felt to be related to a possible allergic reaction to amoxicillin and/or doxycycline Recurrence of bladder cancer 2023-sees Jay Alicea Surgical History Surgery Date(Month/Year) Carpal tunnel surgery Appendectomy Knee surgery-right Skin cancer removal--basal cell Knee replacement-partial--- left 08/2019 Right big toe CDU-mkyugrodj-Zb. Mazzucco 2020
--- OUTSIDE RECORDS SUMMARY | 2024-06-26 00:35 | XMS_ITS | Encounter Summary ---
Author Name [facility] [place] [facility] [place] Address [address] [place] [address] Care Team Providers Care Arcade Games Mechanic Name Role Phone LAURENT ROBLES Primary Care [...] PART A Dec 14, 2012 PART A [id number] GENEVIEVE ARNOLD JR PATIENT MEDICARE (WNR) MEDICARE (M) PART B Dec 14, 2012 PART B [id number] GENEVIEVE ARNOLD PATIENT MEDICARE PART D (WNR) PRESCRIPT ION PART D Dec 14, 2012 PART D [id number] GENEVIEVE ARNOLD PATIENT [facility] (WNR) MEDICARE ADVANTAGE [facility](W NR) Jul 16, 2022 [id number] GENEVIEVE ARNOLD PATIENT [facility] (WNR) MEDICARE ADVANTAGE [facility] (WNR) Jul 16, 2017 [id number] GENEVIEVE ARNOLD PATIENT Selected Encounter This section includes the information on record at [place] for the Encounter. Date/Time Encounter Type Encounter Description Reason Pro vider Source Apr 22, 2024 11:44 AM Outpatient Encounter ADMIN PAT ACTIVTIES (MASNONCT) IHE Encounter Template Text not used by [place] Plan of Treatment: Future Appointments (+ 6 months) and Future Tests (+/- 45 days) The Plan of Treatment section includes future care activities for the patient from all [place] treatmentfacilities. This section includes future appointments and future orders which are active, pending or scheduled. Future Appointments This section includes appointments that were scheduled to occur 6 months from the date of the Encounter, up to a maximum of 20 appointments. The data comes from all [place] treatment facilities. Appointment Date/Time Appointment Type Appointme nt Facility Name Apr 29, 2024 01:00 PM AMBULATORY - REHAB MEDICIN E [place] [facility] [place] [facility] May 19, 2024 02:00 PM AMBULATORY - MEDICINE [facility] May 20, 2024 09:00 AM AMBULATORY - REHAB MEDICIN E [place] [facility] [place] [facility] Aug 25, 2024 08:30 AM AMBULATORY - MEDICINE [facility] Active, Pending, and Scheduled Orders This section includes a listing of several types of active, pending, and scheduled orders, including clinic medications orders, diagnostic test orders, procedure orders and consult orders; where the start date of the order is 45 days before the date of the Encounter or 45 days after the date of theEncounter. The data comes from all [place] treatment facilities. Test Date/Time Test Type Test Details Facility Name Apr 17, 2024 08:33 AM Consult Order COMMUNITY CARE-PULMONARY Cons Oncology Technician's Choice [facility] Social History: Smoking Status (Most current) and Tobacco Use (All prior to encounter date) This section includes the most current, and the historical, smoking and tobacco- related health factors from the VA facility where the Encounter took place. Current Smoking Status This section includes the most current smoking, or tobacco-related health factor, from the [place] facility where the Encounter took place. Date/Time Current Smoking Status Comment Adria hcildress Apr 11, 2024 09:30 AM VA-TOBACCO FORMER USER [place] [facility] [place] [facility] Tobacco Use History This section includes a history of the smoking, or tobacco-related health factors, that were collected on or before the date of the Encounter. The data comes from the [place] facility where the Encounter took place. Date/Time Smoking Status/Tobacco Use Comment F acility Apr 11, 2024 09:30 AM VA-TOBACCO QUIT 5 TO < 15 YRS [facility] [place] [facility] Apr 09, 2023 09:00 AM VA-TOBACCO FORMER USER [facility] [place] [facility] Apr 09, 2023 09:00 AM VA-TOBACCO QUIT 5 TO < 15 YRS [facility] [place] [facility] Apr 13, 2022 09:30 AM VA-TOBACCO FORMER USER [facility] [place] [facility] Apr 13, 2022 09:30 AM VA-TOBACCO QUIT 5 TO < 15 YRS [facility] [place] [facility] Apr 12, 2021 11:30 AM VA-TOBACCO FORMER USER [facility] [place] [facility] Apr 12, 2021 11:30 AM VA-TOBACCO QUIT 5 TO < 15 YRS [place] [facility] [place] [facility] Mar 19, 2020 09:00 AM VA-TOBACCO FORMER USER [place] [facility] [place] [facility] Mar 19, 2020 09:00 AM VA-TOBACCO QUIT 5 TO < 15 YRS [place] [facility] [place] [facility] December 12, 2018 10:18 AM VA-TOBACCO FORMER USER [place] [facility] [place] [facility] December 12, 2018 10:18 AM VA-TOBACCO QUIT 5 TO < 15 YRS [place] [facility] [place] [facility] Jan 21, 2018 07:50 AM QUIT TOBACCO USE > 7 YEARS AGO [place] [facility] [place] [facility] Dec 25, 2016 10:59 AM QUIT TOBACCO USE > 7 YEARS AGO [place] [facility] [place] [facility] Advance Directives: All historical and current Section Date Range: From patient's date of to the date document was created. This section includes ALL of a patient's completed or amended [place] Advance and Rescinded Directives. The entries below indicate that a directive exists for the patient, but an actual copy is not included with this document. The data comes from all [place] facilities. Date Advance Directives Provider Source May 23, 2015 ADVANCE DIRECTIVE AMBER PENA [facility] [place] [facility] Encounter Notes: All associated encounter notes This section contains the clinical notes associated to the Encounter. Date/Time Encounter Note(s) Provider Source Apr 22, 2024 11:44 AM ADMINISTRATIVE NOT E: LOCAL TITLE: CCC: SCHEDULING ADMINISTRATION STANDARD TITLE: ADMINISTRATIVE NOTE DATE OF NOTE: APR 22, 2024@11:44:13 ENTRY DATE: APR 22, 2024@11:44:14 AUTHOR: KIM VANESSA EXP COSIGNER: URGENCY: STATUS: COMPLETED CCC: SCHEDULING ADMINISTRATION Has ADDENDA Patient Demographics Patient Name: GENEVIEVE ARNOLD JR Patient Primary Phone: [phone] Patient Primary Address: [address] [place] [id number] Patient : 1950 Patient Age: 74 Call Back Number: Caller/Recipient Relation to Patient: Self Administrative Administrative Note Reason: Paperwork Request Administrative Note Comments: PT REQUESTING TO HAVE FORM MAILED TO HIM, 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 Please do not alert the staff member by adding them as a signer for future communications. Alerts are not monitored by this user. /rochelle VANESSA VISN 1 CCC AMSA Signed: 04/22/2024 11:44 Receipt Acknowledged By: 04/24/2024 15:52 /kristen/ RAMYA BILLY Advanced Immigration Patrol Inspector 04/22/2024 11:49 /kristen/ Jaquelin Gillis RN Primary Care Staff Nurse 04/24/2024 ADDENDUM STATUS: COMPLETED PCP will give form to mail when filled out. /rochelle BILLY Advanced Immigration Patrol Inspector Signed: 04/24/2024 15:51 KIM VANESSA [facility] [place] [facility]
--- OUTSIDE RECORDS SUMMARY | 2024-06-26 00:35 | XMS_ITS | Encounter Summary ---
Author Name [facility] [place] [facility] [place] Address [address] [place] [address] Care Team Providers Care Erp Technical Lead Name Role Phone LAURENT ROBLES Primary [...] PART A Dec 14, 2012 PART A [id number] [phone] GENEVIEVE ARNOLD JR PATIENT MEDICARE (WNR) MEDICARE (M) PART B Dec 14, 2012 PART B [id number] GENEVIEVE ARNOLD PATIENT MEDICARE PART D (WNR) PRESCRIPT ION PART D Dec 14, 2012 PART D [id number] GENEVIEVE ARNOLD PATIENT [facility] (WNR) MEDICARE ADVANTAGE [facility](W NR) Jul 16, 2022 [id number] GENEVIEVE ARNOLD PATIENT [facility] (WNR) MEDICARE ADVANTAGE [facility] (WNR) Jul 16, 2017 [id number] GENEVIEVE ARNOLD PATIENT Selected Encounter This section includes the information on record at [place] for the Encounter. Date/Time Encounter Type Encounter Description Reason Provider Source May 20, 2024 09:00 AM HEARING AID FITTING/CHECKIN G AUDIOLOGY ICD-10-CM Z46.1 Encounter for fitting and adjustment of hearing aid DORIS PITTS Amaya Encounter Template Text not used by [place] Assessments - Encounter Diagnoses This section includes the primary and secondary diagnoses documented for the Encounter. Date/Time Primary/Secondary Diagnosis Diagnosis Name Provider Source May 20, 2024 09:24 AM PRIMARY Encounter for fitting and adjustment of hearing aid ROYER PITTS [facility] May 20, 2024 09:24 AM SECONDARY Sensorineural hearing loss, bilateral ROYER PITTS [facility] Plan of Treatment: Future Appointments (+ 6 months) and Future Tests (+/- 45 days) The Plan of Treatment section includes future care activities for the patient from all [place] [facility]. This section includes future appointments and future orders which are active, pending or scheduled. Future Appointments This section includes appointments that were scheduled to occur 6 months from the date of the Encounter, up to a maximum of 20 appointments. The data comes from all [place] treatment facilities. Appointment Date/Time Appointment Type Appointme nt Facility Name Aug 25, 2024 08:30 AM AMBULATORY - [...] 08:33 AM Consult Order COMMUNITY CARE-PULMONARY Cons Railway Signal Electrician's Choice [facility] Social History: Smoking Status (Most current) [...] Current Smoking Status Comment Adria ity Apr 11, 2024 09:30 AM VA-TOBACCO QUIT 5 TO < 15 YRS [place] [facility] [place] [facility] Tobacco Use History This section includes a history of the smoking, or tobacco-related health factors, that were collected on or before the date of the Encounter. The data comes from the [place] facility where the Encounter took place. Date/Time Smoking Status/Tobacco Use Comment F acility Apr 11, 2024 09:30 AM VA-TOBACCO QUIT 5 TO < 15 YRS [facility] [place] [facility] Apr 09, 2023 09:00 AM VA-TOBACCO FORMER USER [facility] [place] [facility] Apr 09, 2023 09:00 AM VA-TOBACCO QUIT 5 TO < 15 YRS [facility] [place] [facility] Apr 13, 2022 09:30 AM VA-TOBACCO FORMER USER [facility] [place] [facility] Apr 13, 2022 09:30 AM VA-TOBACCO QUIT 5 TO < 15 YRS [facility] [place] [facility] Apr 12, 2021 11:30 AM VA-TOBACCO FORMER USER [facility] [place] [facility] Apr 12, 2021 11:30 AM VA-TOBACCO QUIT 5 TO < 15 YRS [facility] [place] [facility] Mar 19, 2020 09:00 AM VA-TOBACCO FORMER USER [facility] [place] [facility] Mar 19, 2020 09:00 AM VA-TOBACCO QUIT 5 TO < 15 YRS [facility] [place] [facility] December 12, 2018 10:18 AM VA-TOBACCO FORMER USER [facility] [place] [facility] December 12, 2018 10:18 AM VA-TOBACCO QUIT 5 TO < 15 YRS [facility] [place] [facility] Jan 21, 2018 07:50 AM QUIT TOBACCO USE > 7 YEARS AGO [facility] [place] [facility] Dec 25, 2016 10:59 AM QUIT TOBACCO USE > 7 YEARS AGO [facility] [place] [facility] Advance Directives: All historical and current Section Date Range: From patient's date of to the date document was created. This section includes ALL of a patient's completed or amended [place] Advance and Rescinded Directives. The entries below indicate that a directive exists for the patient, but an actual copy is not included with this document. The data comes from all [place] facilities. Date Advance Directives Provider Source May 23, 2015 ADVANCE DIRECTIVE AMBER PENA [facility] Encounter Notes: All associated encounter notes This section contains the clinical notes associated to the Encounter. Date/Time Encounter Note(s) Provider Source May 20, 2024 09:22 AM AUDIOLOGY E & M NO TE: LOCAL TITLE: AUDIOLOGY CLINIC STANDARD TITLE: AUDIOLOGY E & M NOTE DATE OF NOTE: MAY 20, 2024@09:22 ENTRY DATE: MAY 20, 2024@09:22:18 AUTHOR: DORIS PITTS COSIGNER: URGENCY: STATUS: COMPLETED Dx: Sensorineural hearing loss, bilateral [place] was seen today for a hearing aid follow-up appointment to brass pickler his remade/repaired Oticon RICs. He was accompanied by his given his verbal consent. User settings were restored for both hearing aids, and overall gain and low frequency gain were decreased a few steps. Feedback pmp certified project manager was re-run. Fit of the hearing aids looks much better. [place] will contact the clinic as needed. /kristen/ Tomás Strange, [facility] Jitney Driver Signed: 05/20/2024 09:24 DORIS PITTS [facility]
--- OUTSIDE RECORDS SUMMARY | 2024-06-26 00:35 | XMS_ITS ---
Author Organization [facility] Address [address] [place] [address] Care Team Providers Care Antenna Engineer Name Role Phone Po Any CUI Primary Care Provider Unavailfaith e Darrian Khan Unavailable [phone] XUAN FAULKNER Unavailable Unavailab le ALLERGIES Allergen (clinical drug ingredient) Drug/Non Drug Allergy documented on EMR Reaction Allergy Type Onset Date Status doxycycline Doxycycline jaundice Drug Allergy Act eva amoxicillin Amoxicillin jaundice Drug Allergy Act eva REASON FOR VISIT Patient presents today for jaundice MEDICATIONS Medication SIG (Take, Route, Frequency, Duration) Notes Start Date End Date Status Tranexamic Acid 650 MG as directed Orally Not-Taking Simvastatin 40 MG Oral for 90 Active DOCEtaxel 20 MG/2ML as directed Intravenous Not-Taking Gemcitabine HCl 200 MG as directed Intravenous Not-Taking Dupixent 300 MG/2ML Subcutaneous for 28 Active Metoprolol Tartrate 50 MG Oral for 45 Active Omeprazole 20 MG 1 capsule 30 minutes before morning meal Orally Once a day for 30 day(s) Active Advair HFA 230-21 MCG/ACT Inhalation for 30 Active Eliquis 5 MG TAKE 1 TABLET BY ASHLEY TH TWICE A DAY Oral for 90 Active Advair Diskus 100-50 MCG/DOSE as directed Inhalation Activ e VITAL SIGNS BMI 33.08 kg/m2 05/16/2024 Blood pressure systolic 00 mm Hg 05/16/20 24 Blood pressure diastolic 00 mm Hg 024 Height 66 in 05/16/2024 Weight 205 lbs 05/16/2024 Encounters Encounter Location Date Provider Diagnosis [facility] [address] [place] [address] 05/16/2024 Darrian Khan Hx of adenomatous colonic polyps Z86.010 ; Jaundice R17 and Encounter for screening for malignant neoplasm of colon Z12.11 ASSESSMENTS Encounter Date Diagnosis Assessment Notes Treatment Notes Treatment Clinical Notes 05/16/2024 Hx of adenomatous colonic polyps (ICD-10 - Z86.010) We will discuss colonoscopy when I see you in 202405/16/2024 Jaundice (ICD-10 - R17) 05/16/2024 Encounter for screening for malignant neoplasm of colon (ICD-10 - Z12.11) PLAN OF TREATMENT Treatment Notes Assessment Notes Hx of adenomatous colonic polyps We will discuss colonoscopy when I see you in 2024 Next Appt Details Follow Up: December 2024, Re ason: Provider Name:Darrian Khan , 11/20/2024 09:40:00 AM, [address] [place] [address], [address], [place], [address], Progress Notes * Examination Category Sub-Category Detail Notes General Examination GENERAL APPEARANCE: Pleasant , well nourished, well developed male EYES: Anicteric NECK/THYROID: no cervical lymphade nopathy, neck supple HEART: S1, S2 normal LUNGS: clear to auscultatio n bilaterally ABDOMEN: normal bowel sounds, no guarding or rigidity, no guarding or rigidity, no masses palpable, soft, nontender, nondistended NEUROLOGIC: alert and oriented SKIN: nonjaundiced, no spi rosas angiomata EXTREMITIES: no edema ORAL CAVITY: mucosa moist
--- OUTSIDE RECORDS SUMMARY | 2024-06-26 00:35 | XMS_ITS | Encounter Summary ---
Author Name [facility] [place] [facility] [place] [facility] [place] Address [address] [place] [address] Care Team Providers Care Pallet Assembler Name Role Phone LAURENT ROBLES Primary Care [...] PART A Dec 14, 2012 PART A [id number] [phone] GENEVIEVE ARNOLD JR PATIENT MEDICARE (WNR) MEDICARE ([place]) PART B Dec 14, 2012 PART B [id number] GENEVIEVE ARNOLD PATIENT MEDICARE PART D (WNR) PRESCRIPT ION PART D Dec 14, 2012 PART D [id number] GENEVIEVE ARNOLD PATIENT [facility] (WNR) MEDICARE ADVANTAGE [facility](W NR) Jul 16, 2022 [id number] GENEVIEVE ARNOLD PATIENT [facility] (WNR) MEDICARE ADVANTAGE [facility] (WNR) Jul 16, 2017 [id number] GENEVIEVE ARNOLD PATIENT Selected Encounter This section includes the information on record at [place] for the Encounter. Date/Time Encounter Type Encounter Description Reason Pro vider Source Jun 24, 2024 03:02 PM Outpatient Encounter ADMIN PAT ACTIVTIES (MASNONCT) IHE Encounter Template Text not used by [place] Plan of Treatment: Future Appointments (+ 6 months) and Future Tests (+/- 45 days) The Plan of Treatment section includes future care activities for the patient from all [place] treatmentfacilities. This section includes future appointments and future orders which are active, pending or scheduled. Future Appointments This section includes appointments that were scheduled to occur 6 months from the date of the Encounter, up to a maximum of 20 appointments. The data comes from all [place] treatment facilities. Appointment Date/Time Appointment Type Appointme nt Facility Name Aug 25, 2024 08:30 AM AMBULATORY - MEDICINE [facility] Social History: Smoking Status (Most current) and Tobacco Use (All prior to encounter date) This section includes the most current, and the historical, smoking and tobacco- related health factors from the [place] facility where the Encounter took place. Current Smoking Status This section includes the most current smoking, or tobacco-related health factor, from the [place] facility where the Encounter took place. Date/Time Current Smoking Status Comment Facil ity Apr 11, 2024 09:30 AM VA-TOBACCO FORMER USER [place] [facility] [place] [facility] Tobacco Use History This section includes a history of the smoking, or tobacco-related health factors, that were collected on or before the date of the Encounter. The data comes from the [place] facility where the Encounter took place. Date/Time Smoking Status/Tobacco Use Comment F acility Apr 11, 2024 09:30 AM VA-TOBACCO QUIT 5 TO < 15 YRS [facility] [place] [facility] Apr 09, 2023 09:00 AM VA-TOBACCO FORMER USER [place] [facility] [place] [facility] Apr 09, 2023 09:00 AM VA-TOBACCO QUIT 5 TO < 15 YRS [facility] [place] [facility] Apr 13, 2022 09:30 AM VA-TOBACCO FORMER USER [place] [facility] [place] [facility] Apr 13, 2022 09:30 AM VA-TOBACCO QUIT 5 TO < 15 YRS [place] [facility] [place] [facility] Apr 12, 2021 11:30 AM VA-TOBACCO FORMER USER [place] [facility] [place] [facility] Apr 12, 2021 11:30 AM VA-TOBACCO QUIT 5 TO < 15 YRS [facility] [place] [facility] Mar 19, 2020 09:00 AM VA-TOBACCO FORMER USER [place] [facility] [place] [facility] Mar 19, 2020 09:00 AM VA-TOBACCO QUIT 5 TO < 15 YRS [place] [facility] [place] [facility] December 12, 2018 10:18 AM VA-TOBACCO FORMER USER [place] [facility] [place] [facility] December 12, 2018 10:18 AM VA-TOBACCO QUIT 5 TO < 15 YRS [place] [facility] [place] [facility] Jan 21, 2018 07:50 AM QUIT TOBACCO USE > 7 YEARS AGO [place] [facility] [place] [facility] Dec 25, 2016 10:59 AM QUIT TOBACCO USE > 7 YEARS AGO [facility] Advance Directives: All historical and current Section Date Range: From patient's date of to the date document was created. This section includes ALL of a patient's completed or amended [place] Advance and Rescinded Directives. The entries below indicate that a directive exists for the patient, but an actual copy is not included with this document. The data comes from all [place] facilities. Date Advance Directives Provider Source May 23, 2015 ADVANCE DIRECTIVE AMBER PENA [place] [facility] Encounter Notes: All associated encounter notes This section contains the clinical notes associated to the Encounter. Date/Time Encounter Note(s) Provider Source Jun 24, 2024 03:02 PM ADMINISTRATIVE NOT E: LOCAL TITLE: CCC: SCHEDULING ADMINISTRATION STANDARD TITLE: ADMINISTRATIVE NOTE DATE OF NOTE: JUN 24, 2024@15:02:13 ENTRY DATE: JUN 24, 2024@15:02:13 AUTHOR: AMISHA PATTERSON COSIGNER: URGENCY: STATUS: COMPLETED CCC: SCHEDULING ADMINISTRATION Has ADDENDA Patient Demographics Patient Name: GENEVIEVE ARNOLD JR Patient Primary Phone: [phone] Patient Primary Address: [address] [place] [address] Patient : 1950 Patient Age: 74 Caller/Recipient Relation to Patient: Self Caller Name: GENEVIEVE ARNOLD Administrative Administrative Note Reason: Other Administrative Note Comments: Pt called. He is having bladder surgery on June 30 at [facility], Dr. Darrin Grimaldo (phone #[phone]) , and he needs a referral to go there [facility]. He apologizes that he did not do this sooner. Please call him to let him know this has been sent. Thank you. IMPORTANT: This note was created by [facility] Clinical Contact Center staff. Please do not alert the staff member by adding them as a signer for future communications. Alerts are not monitored by this user. /kristen/ AMISHA ORTEGA [facility] Signed: 06/24/2024 15:02 Receipt Acknowledged By: 06/25/2024 14:41 /kristen/ LIBERTAD GUERRA REGISTERED NURSE * AWAITING SIGNATURE * JENS JIM 06/25/2024 ADDENDUM STATUS: COMPLETED adding PCP /kristen/ LIBERTAD GUERRA REGISTERED NURSE Signed: 06/25/2024 14:41 Receipt Acknowledged By: * AWAITING SIGNATURE * PERCY BULLOCK KAREN A [facility]
--- OUTSIDE RECORDS SUMMARY | 2024-06-26 00:35 | XMS_ITS ---
Author Organization [facility] Address [address] [place] [address] Care Team Providers Care Paper Supervisor Name Role Phone Any Jackson MD Primary Care Provider UnavailDarrian Lockett Unavailable [phone] XUAN FAULKNER Unavailable Unavailab le REASON FOR VISIT QUESTIONS Encounters Encounter Location Date Provider Diagnosis [facility] [address] [place] [address] 03/13/2024 Darrian Khan Elevated liver function tests R94.5 ASSESSMENTS Encounter Date Diagnosis Assessment Notes Treatment Notes Treatment Clinical Notes 03/13/2024 Elevated liver function tests (ICD-10 - R94.5) PLAN OF TREATMENT Pending Test Test Name Order Date LIVER PROFILE 03/13/2024 Next Appt Details Provider Name:Darrian Khan , 11/20/2024 09:40:00 AM, [address] [place] [address], [address], [place], [address],
--- OUTSIDE RECORDS SUMMARY | 2024-06-26 00:35 | XMS_ITS | Encounter Summary ---
Author Name [facility] [place] Address [address] [place] [address] Care Team Providers Care Assembler Finger Buffs Name Role Phone LAURENT ROBLES Primary Care [...] PART A Dec 14, 2012 PART A [id number] GENEVIEVE ARNOLD JR PATIENT MEDICARE (WNR) MEDICARE (M) PART B Dec 14, 2012 PART B [id number] GENEVIEVE ARNOLD PATIENT MEDICARE PART D (WNR) PRESCRIPT ION PART D Dec 14, 2012 PART D [id number] GENEVIEVE ARNOLD PATIENT [facility] (WNR) MEDICARE ADVANTAGE [facility](W NR) Jul 16, 2022 [id number] GENEVIEVE ARNOLD PATIENT [facility] (WNR) MEDICARE ADVANTAGE [facility] (WNR) Jul 16, 2017 [id number] GENEVIEVE ARNOLD PATIENT Selected Encounter This section includes the information on record at [place] for the Encounter. Date/Time Encounter Type Encounter Description Reason Pro vider Source Apr 21, 2024 01:07 PM Outpatient Encounter PRIMARY CARE/MEDICINE IHE Encounter Template Text not used by [place] Plan of Treatment: Future Appointments (+ 6 months) and Future Tests (+/- 45 days) The Plan of Treatment section includes future care activities for the patient from [facility] [place] [facility] This section includes future appointments and future orders which are active, pending or scheduled. Future Appointments This section includes appointments that were scheduled to occur 6 months from the date of the Encounter, up to a maximum of 20 appointments. The data comes from all [place] treatment facilities. Appointment Date/Time Appointment Type Appointme nt Facility Name Apr 29, 2024 01:00 PM [facility] May 19, 2024 02:00 PM [facility] May 20, 2024 09:00 AM [facility]UL[facility] Aug 25, 2024 08:30 AM AMBULATORY - MEDICINE [facility] Active, Pending, and Scheduled Orders This section includes a listing of several types of active, pending, and scheduled orders, including clinic medications orders, diagnostic test orders, procedure orders and consult orders; where the start date of the order is 45 days before the date of the Encounter or 45 days after the date of theEncounter. The data comes from all [place] treatment [facility]. Test Date/Time Test Type Test Details Facility Name Apr 17, 2024 08:33 AM Consult Order COMMUNITY CARE-PULMONARY Cons [facility] Social History: Smoking Status (Most current) and Tobacco Use (All prior to encounter date) This section includes the most current, and the historical, smoking and tobacco- related health factors from the [place] facility where the Encounter took place. Current Smoking Status This section includes the most current smoking, or tobacco-related health factor, from the [place] facility where the Encounter took place. Date/Time Current Smoking Status Minoo childress Sep 24, 2023 09:00 AM VA-TOBACCO FORMER USER [facility] Tobacco Use History This section includes a history of the smoking, or tobacco-related health factors, that were collected on or before the date of the Encounter. The data comes from the [place] facility where the Encounter took place. Date/Time Smoking Status/Tobacco Use Comment F acility Sep 24, 2023 09:00 AM VA-TOBACCO FORMER USER [facility] Sep 24, 2023 09:00 AM VA-TOBACCO QUIT 5 TO < 15 YRS [facility] Advance Directives: All historical and current Section Date Range: From patient's date of to the date document was created. This section includes ALL of a patient's completed or amended [place] Advance and Rescinded Directives. The entries below indicate that a directive exists for the patient, but an actual copy is not included with this document. The data comes from all [place] facilities. Date Advance Directives Provider Source May 23, 2015 ADVANCE DIRECTIVE AMBER PENA [facility] Encounter Notes: All associated encounter notes This section contains the clinical notes associated to the Encounter. Date/Time Encounter Note(s) Provider Source Apr 21, 2024 01:07 PM INFECTIOUS DISEASE NOTE: LOCAL TITLE: COVID-19 LONG COVID PRE-SCREEN/SCREEN STANDARD TITLE: INFECTIOUS DISEASE NOTE DATE OF NOTE: APR 21, 2024@13:07 ENTRY DATE: APR 21, 2024@13:07:36 AUTHOR: JUNIOR SINGH EXP COSIGNER: URGENCY: STATUS: COMPLETED Long COVID Pre-Screen/Screen [facility] completed digital pre-screen. Follow-up Plan Patient declines contact [facility] Long COVID Service is happy to help however we can. Please feel free to consult the [facility] at any time, if clinically indicated and if [facility] is interested at a later time. Consult may be found under Consults -> [facility]-> PACT/Health Promotion Clinics -> Post Covid E-consult /kristen/ JUNIOR SINGH PA-C Signed: 04/21/2024 13:08 JUNIOR SNIGH [facility]
--- OUTSIDE RECORDS SUMMARY | 2024-06-26 00:35 | XMS_ITS | Encounter Summary ---
Author Name [facility] [place] [facility] [place] Address [address] [place] [address] Care Team Providers Care Hoisting Machine Operator Name Role Phone LAURENT ROBLES Primary [...] PART A Dec 14, 2012 PART A [id number] GENEVIEVE ARNOLD JR PATIENT MEDICARE (WNR) MEDICARE (M) PART B Dec 14, 2012 PART B [id number] GENEVIEVE ARNOLD PATIENT MEDICARE PART D (WNR) PRESCRIPT ION PART D Dec 14, 2012 PART D [id number] GENEVIEVE ARNOLD PATIENT [facility] (WNR) MEDICARE ADVANTAGE [facility](W NR) Jul 16, 2022 [id number] GENEVIEVE ARNOLD PATIENT [facility] (WNR) MEDICARE ADVANTAGE [facility] (WNR) Jul 16, 2017 [id number] GENEVIEVE ARNOLD PATIENT Selected Encounter This section includes the information on record at [place] for the Encounter. Date/Time Encounter Type Encounter Description Reason Provider Source Apr 17, 2024 09:55 AM SPECIAL SUPPLIES PHYS/QHP ADMIN PAT ACTIVTIES (MASNONCT) ICD-10-CM J44.9 Chronic obstructive pulmonary disease, unspecified JENNIFER EDGAR IHAmaya Encounter Template Text not used by [place] Assessments - Encounter Diagnoses This section includes the primary and secondary diagnoses documented for the Encounter. Date/Time Primary/Secondary Diagnosis Diagnosis Name Provider Source Apr 17, 2024 09:58 AM PRIMARY Chronic obstructive pulmonary disease, unspecified JENNIFER EDGAR [facility] Plan of Treatment: Future Appointments (+ 6 months) and Future Tests (+/- 45 days) The Plan of Treatment section includes future care activities for the patient from all [place] [facility]. This section includes future appointments and future [...] 01:00 PM AMBULATORY - REHAB MEDICIN E [facility] May 19, 2024 02:00 PM AMBULATORY - MEDICINE [facility] May 20, 2024 09:00 AM AMBULATORY - REHAB MEDICIN E [facility] Aug 25, 2024 08:30 AM AMBULATORY [...] data comes from all [place] treatment facilities. Test Date/Time Test Type Test Details Facility Name Apr 17, 2024 08:33 AM Consult Order COMMUNITY CARE-PULMONARY Cons Delivery Helper's Choice [facility] Social History: Smoking Status (Most current) [...] VA-TOBACCO FORMER USER [facility] [place] [facility] Tobacco Use History This section includes a history of the smoking, or tobacco-related health factors, that were collected on or before the date of the Encounter. The data comes from the [place] facility where the Encounter took place. Date/Time Smoking Status/Tobacco Use Comment F acility Apr 11, 2024 09:30 AM VA-TOBACCO QUIT 5 TO < 15 YRS [facility] [place] [facility] Apr 09, 2023 09:00 AM VA-TOBACCO FORMER USER [facility] [place] [facility] Apr 09, 2023 09:00 AM VA-TOBACCO QUIT 5 TO < 15 YRS [facility] [place] [facility] Apr 13, 2022 09:30 AM VA-TOBACCO FORMER USER [facility] [place] [facility] Apr 13, 2022 09:30 AM VA-TOBACCO QUIT 5 TO < 15 YRS [facility] [place] [facility] Apr 12, 2021 11:30 AM VA-TOBACCO FORMER USER [facility] [place] [facility] Apr 12, 2021 11:30 AM VA-TOBACCO QUIT 5 TO < 15 YRS [facility] [place] [facility] Mar 19, 2020 09:00 AM VA-TOBACCO FORMER USER [facility] [place] [facility] Mar 19, 2020 09:00 AM VA-TOBACCO QUIT 5 TO < 15 YRS [facility] [place] [facility] December 12, 2018 10:18 AM VA-TOBACCO FORMER USER [facility] [place] [facility] December 12, 2018 10:18 AM VA-TOBACCO QUIT 5 TO < 15 YRS [facility] [place] [facility] Jan 21, 2018 07:50 AM QUIT TOBACCO USE > 7 YEARS AGO [facility] [place] [facility] Dec 25, 2016 10:59 AM QUIT TOBACCO USE > 7 YEARS AGO [facility] Advance Directives: All historical and current [...] May 23, 2015 ADVANCE DIRECTIVE AMBER PENA [facility] Encounter Notes: All associated encounter notes This section contains the clinical notes associated to the Encounter. Date/Time Encounter Note(s) Provider Source Apr 17, 2024 09:55 AM RESPIRATORY THERAP Y CONSULT: LOCAL TITLE: CONSULT REPORT/RESPIRATORY THERAPY STANDARD TITLE: RESPIRATORY THERAPY CONSULT DATE OF NOTE: APR 17, 2024@09:55 ENTRY DATE: APR 17, 2024@09:55:32 AUTHOR: JENNIFER EDGAR EXP COSIGNER: URGENCY: STATUS: COMPLETED Diagnosed with COPD has order for nebulizer and does not require education per consult. Nebulizer, filters and set ups will be sent to home. Care and cleaning instructions will be sent to . /kristen/ JENNIFER EDGAR RESPIRATORY THERAPIST Signed: 04/17/2024 11:30 JENNIFER EDGAR [facility]
--- OUTSIDE RECORDS SUMMARY | 2024-06-26 00:35 | XMS_ITS | Encounter Summary ---
Author Name [facility] [place] Organization [facility] [place] Address [address] [place] [address] Care Team Providers Care Travel Occupational Therapist Name Role Phone LAURENT ROBLES Primary Care [...] PART A Dec 14, 2012 PART A [id number] GENEVIEVE ARNOLD JR PATIENT MEDICARE (WNR) MEDICARE (M) PART B Dec 14, 2012 PART B [id number] GENEVIEVE ARNOLD PATIENT MEDICARE PART D (WNR) PRESCRIPT ION PART D Dec 14, 2012 PART D [id number] [phone] GENEVIEVE ARNOLD PATIENT [facility] (WNR) MEDICARE ADVANTAGE [facility](W NR) Jul 16, 2022 [id number] GENEVIEVE ARNOLD PATIENT [facility] (WNR) MEDICARE ADVANTAGE [facility] (WNR) Jul 16, 2017 [id number] GENEVIEVE ARNOLD PATIENT Selected Encounter This section includes the information on record at [place] for the Encounter. Date/Time Encounter Type Encounter Description Reason Pro vider Source [place] Encounter Template Text not used by [place] Advance Directives: All historical and current Section [...] 23, 2015 [facility]
--- OUTSIDE RECORDS SUMMARY | 2024-06-26 00:35 | XMS_ITS ---
Author Organization [facility] Address [address] [place] [address] Care Team Providers Care Repair Manager Name Role Phone Any Jackson MD Primary Care Provider UnavailDarrian Lockett Unavailable [phone] XUAN FAULKNER Unavailable Unavailab le REASON FOR VISIT fyi update. vertigo PROBLEMS Problem Type ICD Code Onset Dates Problem Status W/U Status Risk SNOMED Code Notes Problem Elevated liver function tests (R94.5) Active confirmed Elevated liver enzymes level ([id number]) Encounters Encounter Location Date Provider Diagnosis [facility] [address] [place] [address] 03/02/2024 Darrian Khan Elevated liver function tests R94.5 ASSESSMENTS Encounter Date Diagnosis Assessment Notes Treatment Notes Treatment Clinical Notes 03/02/2024 Elevated liver function tests (ICD-10 - R94.5) PLAN OF TREATMENT Pending Test Test Name Order Date LIVER PROFILE 03/02/2024 Next Appt Details Provider Name:Darrian Khan , 11/20/2024 09:40:00 AM, [address], [address], [place], [address],
--- OUTSIDE RECORDS SUMMARY | 2024-06-26 00:35 | XMS_ITS ---
Author Organization [facility] Address [address] [address] Care Team Providers Care Job Estimator Name Role Phone yanet ly Primary Care Provider MARIBEL Hassan [phone] REASON FOR VISIT RMV Placard/Plate form Encounters Encounter Location Date Provider Diagnosis [facility] [address] [address] 03/12/2023 MARIBEL POWELL PLAN OF TREATMENT No Information Progress Notes * Volodymyr ARNOLDDOB:[birth year] (73 yo M)Acc No.[id number]:03/12/2023 Patient:??Volodymyr Arnold :1950?Age:73 Y?Sex:Vicki odell Address:[address], [place] [address] * true * Date:??
--- OUTSIDE RECORDS SUMMARY | 2024-06-26 00:36 | XMS_ITS | Patient Health Record ---
Author Organization [facility] Address [address] [facility] [address] [place] [address] Care Team Providers Care Webfed Offset Press Operator Name Role Phone yanet ly Primary Care Provider Unavailabl e ALLERGIES Allergen (clinical drug ingredient) Drug/Non Drug Allergy documented on EMR Reaction Allergy Type Onset Date Status dronedarone Multaq rash Drug Allergy Activ e REASON FOR REFERRAL No Information MEDICATIONS Medication SIG (Take, Route, Frequency, Duration) Notes Start Date End Date Status Ipratropium Loma 0.03 % 2 sprays in e ach nostril Nasally Twice a day Active oxyCODONE HCl 5 MG 1 tablet as needed Orally every 4 hours PRN pain for 5 days 12/16/2021 Not-Taking Omeprazole 20 MG 1 capsule 30 minutes before morning meal Orally Once a day Active Eliquis 5 MG 1 tablet Orally Once a day Active Advair Diskus 250-50 MCG/ACT 1 puff Inhalation Twice a day Active Benzonatate 200 MG 1 capsule [address] ee times a day Active hydrOXYzine HCl 25 MG 1 tablet as needed Orally every 8 hrs PRN itching/nausea for 10 days 12/16/2021 Not-Taking Acetaminophen 500 MG 1 tablet as needed Orally every 4 hrs for 30 days 12/16/2021 Not-Taking Simvastatin 40 MG 1 tablet in the evening Orally Once a day Not-Taking Metoprolol Tartrate 50 MG 1 tablet with food Orally Twice a day Active PROBLEMS Problem Type ICD Code Onset Dates Problem Status W/U Status Risk SNOMED Code Notes Problem Hallux rigidus of right foot (M20.21) Active confirmed 555645912 Problem Anticoagulant long-term use (Z79.01) Active confirmed [id number] PLAN OF TREATMENT Pending Test Test Name Order Date X ray : Foot, right 3v 11/11/2021 X ray : Foot, right 3v 2022 X ray : Foot, right 3v 01/18/2022 X ray : Foot, right 3v 03/30/2022 X ray : Foot, right 3v 09/28/2022 DRAIN/INJECT, SMALL JOINT/BURSA 09/29/19 DRAIN/INJECT, SMALL JOINT/BURSA 12/14/19 Insurance Providers Payer Name Payer Address Payer Phone Subscriber Number Group Number Insured Name Patient Relationship to Insured Coverage Start Date Coverage End Date [employer] Medicare Adv-[id number] [address] [address] [place] [phone] [id number] Volodymyr Richards Self - patient is the insured MEDICATIONS ADMINISTERED Medication Instructions Date of Administration Dosage Notes Dexamethasone 09/28/2022 0.5 mL Dexamethasone 12/13/2022 0.5 mL Kenalog 09/28/2022 0.5 mL Kenalog 12/13/2022 0.5 mL MEDICAL (GENERAL) HISTORY Medical History History ICD Code bladder cancer erectile dysfunction GERD (gastroesophageal reflux disease) hypercholesterolemia obesity (BMI 30-39.9) obstructive sleep apnea SVT (supraventricular tachyc ardia) seen cardiology 11/2019 and workup was negative Intestinal Blockage A-FIB Attack + COVID 01/2022 COVID vaccinated X 2 (Pfizer) and 3 franco ters (Pfizer) COPD Jaundice X 1 month E. Coli infection 09/2022 Surgical History Surgery Date(Month/Year) arthroscopy of right knee arthroplasty of left knee bladder surgery x13 meniscectomy of left knee transurethral destruction of bladder les ion left cataract surgery with Dr. Orlando 12/15 right cataract surgery with Dr. Orlando cardiac ablation 04/2022 bladder surgery 05/22/2022 Hospitalization History Reason Date(Month/Year) difficulty breathing diagnosed with COPD 06/2022 bladder surgery 05/22/2022 cardiac ablation 04/2022 Recurring Polyps Intestinal Blockage/A-FIB Attack
--- OUTSIDE RECORDS SUMMARY | 2024-06-26 00:36 | XMS_ITS ---
Author Organization [facility] Address [address] [address] Care Team Providers Care Document Control Associate Name Role Phone yanet ly Primary Care Provider MARIBEL Hassan [phone] REASON FOR VISIT Handicap placard extension Encounters Encounter Location Date Provider Diagnosis [facility] [address] [address] 03/12/2023 MARIBEL POWELL PLAN OF TREATMENT No Information Progress Notes * Volodymyr ARNOLDDOB:[birth year] (73 yo M)Acc No.[id number]:03/12/2023 Patient:??Volodymyr Arnold :1950?Age:73 Y?Sex:Vicki odell Address:[address], [place] [address] * true * Date:??
== END 2024-06-25 11:29 | disposition home or self-care (01) ==
LOC: HO.HMCWIW 10:35
PROVIDERS: PCP Internal Medicine; Visit Provider Nurse Practitioner Family
DX: J01.90 Acute sinusitis, unspecified (principal); B96.89 Other specified bacterial agents as the cause of diseases classified elsewhere; J44.1 Chronic obstructive pulmonary disease with (acute) exacerbation

== ENCOUNTER → 2024-06-25 10:35 | Outpatient (BNVA) | payer MEDICARE, SELFPAY | PROVIDERS: PCP Internal Medicine; Visit Provider Nurse Practitioner Family | DX: J01.90 Acute sinusitis, unspecified (principal); B96.89 Other specified bacterial agents as the cause of diseases classified elsewhere; J44.1 Chronic obstructive pulmonary disease with (acute) exacerbation | CPT/HCPCS: 99212 ==

== ENCOUNTER → 2024-06-30 12:39 | Outpatient (BNV) | payer MEDICARE, SELFPAY | PROVIDERS: PCP Internal Medicine; Visit Provider Urology | DX: C67.4 Malignant neoplasm of posterior wall of bladder (principal) | CPT/HCPCS: 52204 ==

== ENCOUNTER → 2024-06-30 12:39 | Day surgery (SDC) | payer MEDICARE, SELFPAY ==
--- OUTSIDE RECORDS SUMMARY | 2024-06-26 02:07 | XMS_ITS | Continuity of Care Document ---
Author Name [facility] Organization [facility] Care Team Providers Care Grants Assistant Name Role Phone [facility] Unavailable Unavailable Problems Combined list of problems [...] HCS Exposure to potentially hazardous substance (SCT [id number]) Active Condition Oct 18 4 Entered By: LIUDMILA SUBRAMANIAN Comment: Entered automatically through [facility] Problem List documentation program [facility] Exposure to potentially hazardous substance (SCT [id number]) Active Condition Apr 15 4 Entered By: AMISHA GÓMEZ Comment: Entered automatically through [facility] Problem List documentation program [facility] 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 [facility] Gastroesophageal reflux disease Active Condition [facility] History of alcohol abuse Active Condition Apr 04, 2019 Entered By: EMMANUEL JI Comment: sober for more than 38 yrs [...] EMMANUEL JI Comment: DR Corrie BLANTON ( [facility]) - visit 12/11/18Ju2017 Entered By: EMMANUEL JI Comment: [place] - SEE SUPERVISOR FURNACE ROOM WHEN IN [place] ( JUN THRU NOVEMBER )Apr 30, 2018 Entered By: EMMANUEL JI Comment: NON [facility] -December 12, 2018 Entered By: EMMANUEL JI Comment: NON [facility] ( [place] ( [facility] [place]- DR Del Valle / Lenin COHEN - [...] H90.3 Sensorineural hearing loss, bilateral Active Diagnosis [facility] Diagnosis: ICD-10-CM 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 CETIRIZINE HCL 10MG TAB TAKE ONE-HALF TABLET BY MOUTH EVERY DAY ORAL ACTIVE AZARBALSharyn 2023 [facility] DOCETAXEL INJ,CONC INJECT INTRAVEN OUSLY INTRAV ENOUS ACTIVE AZARBALJ KOTA 2023 [facility] DOCUSATE NA 250MG CAP TAKE 1 CAPSULE BY MOUTH EVERY DAY ORAL ACTIVE AZARBALSharyn 2023 [facility] FLUTICASONE 250MCG/SALM ETEROL 50MCG INHL,ORAL,D ISKUS,60 INHALE 1 PUFF BY MOUTH EVERY DAY ORAL ACTIVE AZARBALSharyn 2023 [facility] GEMCITABINE HCL INJ INJ INJECT 200 MG INTRAVEN OUSLY INTRAV ENOUS ACTIVE AZARBALSharyn ESCUDERO 2023 [facility] IPRATROPIUM BR 0.03% SOLN,SPRAY, NASAL 1 SPRAY INTO EACH NOSTRIL EVERY DAY NASAL ACTIVE AZAADANSharyn GUERRA2023 [facility] METOPROLOL SUCCINATE 100MG TAB,SA TAKE ONE-HALF TABLET BY MOUTH TWICE A DAY ORAL ACTIVE AZAADANSharyn GUERRA2023 [facility] METOPROLOL TARTRATE 50MG TAB TAKE ONE TABLET BY MOUTH TWICE DAILY ORAL ACTIVE PETROFF,S 2018 [facility] OMEPRAZOLE 20MG CAP,EC TAKE 1 CAPSULE BY MOUTH EVERY DAY ORAL ACTIVE AZARBALSharyn GUERRA2023 [facility] OMEPRAZOLE 20MG CAP,EC TAKE 1 CAPSULE BY MOUTH EVERY MORNING 30 MINUTES BEFORE BREAKFAS T ORAL ACTIVE PETROFF,S 2018 [facility] POLYETHYLEN E GLYCOL 3350 PWDR,ORAL TAKE 17 GM (ONE CAPFUL) BY MOUTH EVERY DAY ORAL ACTIVE MARGARETSharyn GUERRA2023 [facility] PREDNISONE 20MG TAB TAKE TWO TABLETS BY MOUTH ONCE DAILY COPD FLARE ORAL 05/11/2024 [id number] PERCY BULLOCK 2023 10 [facility] SIMVASTATIN 80MG TAB TAKE ONE-HALF TABLET BY MOUTH AT BEDTIME ORAL ACTIVE PETROFF,S 2018 [facility] SIMVASTATIN 80MG TAB TAKE ONE-HALF TABLET BY MOUTH AT BEDTIME ORAL ACTIVE CLAUDIAPEDRITODANNISharyn GUERRA2023 [facility] TIOTROPIUM 18MCG CAP,INHL,30 INSERT 1 CAPSULE INTO AEROLIZE R AND INHALE BY MOUTH EVERY DAY RESPIR ATORY (INHAL ATION) ACTIVE MARGARETSharyn 2023 [facility] Allergies, Adverse Reactions, Alerts Combined list of allergies from Department of Defense and Veterans Affairs facilities. It does not include entries that were removed or entered in error. Substance Category Reaction Severity Reaction type Status Date Reported Comments Source AMOXICILLIN Propensity to adverse reactions to drug (finding) Jaundice SEVERE active 4 [facility] CODEINE Propensity to adverse reactions to drug (finding) Nausea and vomiting active 4 [facility] MULTAQ Propensity to adverse reactions to drug (finding) Eruption active 2 [facility] Immunizations Combined list of available immunizations from the Department of Defense and Veterans Affairs facilities. Immunization Series Date Given Administered By Site Reaction Lot Number CVX Code Drug Relief Master Status Comments Source INFLUENZA, HIGH-DOSE, TRIVALENT, PF 2023 ALEC BENTLEY RIGHT DELTO ID [id number] 135 complet ed [facility] RSV, BIVALENT, PROTEIN SUBUNIT RSVPREF, DILUENT RECONSTITUTED , 0.5 ML, PF 2023 [facility]AL[facility] L LEFT DELTO ID [id number] 305 complet ed Sterile water diluent Lot #- [id number] 11/2024 [facility] RSV, RECOMBINANT, PROTEIN SUBUNIT RSVPREF, ADJUVANT RECONSTITUTED , 0.5 ML, PF 2022 303 complet ed [facility] INFLUENZA, HIGH-DOSE, QUADRIVALENT 2022 ALEC BENTLEY LEFT DELTO ID [id number] 197 complet ed [facility] INFLUENZA, UNSPECIFIED FORMULATION 2022 88 complet ed [facility] COVID-19 (PFIZER), MRNA, LNP-S, PF, 30 MCG/0.3 ML DOSE 2020 208 complet ed [facility] INFLUENZA, UNSPECIFIED FORMULATION 2020 88 complet ed [facility] COVID-19 (PFIZER), MRNA, LNP-S, PF, 30 MCG/0.3 ML DOSE 2 2020 208 complet ed [facility] COVID-19 (PFIZER), MRNA, LNP-S, PF, 30 MCG/0.3 ML DOSE 1 2020 208 complet ed [place] ZOSTER RECOMBINANT 1 2018 187 complet ed [facility] ZOSTER RECOMBINANT 1 2018 187 complet ed [facility] INFLUENZA, TRIVALENT, ADJUVANTED 2018 168 complet ed Site: Left Deltoid [facility] INFLUENZA, SEASONAL, INJECTABLE 2017 141 complet ed Site: Left Deltoid [facility] INFLUENZA, SEASONAL, INJECTABLE 2016 141 complet ed [facility] PNEUMOCOCCAL CONJUGATE PCV 13 2015 133 complet ed [facility] [place] [facility] PNEUMOCOCCAL POLYSACCHARID E PPV23 2014 33 complet ed [facility] TDAP 2014 115 complet ed [facility] [place] [facility] Vital Signs Combined list of inpatient and outpatient Vital Signs from Department of Defense and Veterans Affairs, ranging from 12 months to all on record, depending upon the facility. Vital Sign Value Date Comments Source SYSTOLIC BLOOD PRESSURE 125 04/11/20 24 09:48:39 [facility] DIASTOLIC BLOOD PRESSURE 80 024 09:48:39 [facility] PULSE OXIMETRY 94 04/11/2024 09:48:39 [facility] WEIGHT 208.2 04/11/2024 09:48:39 [facility] BMI 34kg/m2 04/11/2024 09:48:39 [facility] PAIN 1 04/11/2024 09:48:39 [facility] TEMPERATURE 97.5 04/11/2024 09:48:39 [facility] PULSE 68 04/11/2024 09:48:39 [facility] RESPIRATION 16 04/11/2024 09:48:39 [facility] SYSTOLIC BLOOD PRESSURE 129 09/24/19 24 09:24:42 [facility] DIASTOLIC BLOOD PRESSURE 86 024 09:24:42 [facility] PULSE OXIMETRY 97 09/24/2023 09:24:42 [facility] WEIGHT 206 09/24/2023 09:24:42 [facility] BMI 33kg/m2 09/24/2023 09:24:42 [facility] PAIN 3 09/24/2023 09:24:42 [facility] HEIGHT 66 09/24/2023 09:24:42 [facility] TEMPERATURE 98 09/24/2023 09:24:42 [facility] PULSE 65 09/24/2023 09:24:42 [facility] RESPIRATION 18 09/24/2023 09:24:42 [facility] Encounters Combined list of: 1) Encounters from Department of Veterans Affairs facilities going back up to thelast 18 months. 2) Encounters from the Department of Defense facilities going back up to 280 months. Location Location Details Encounter Type Encounter Number Reason For Visit Attending Provider ADM Date DC Date Status Disposition Source [facility] Outpatient Encounter [id number] 04/[address] [facility] [place] [place] [facility] OFFICE O/P EST MOD 30-39 MIN [id number] Diagnos is: ICD-10- CM I48.91 Unspeci fied atrial fibrill ation<b r/> Corrie BULLOCK 04/09 [place] [facility] [place] [place] [facility] Outpatient Encounter [id number] 06/05 [facility] Outpatient Encounter [id number] 09/19 [facility] Outpatient Encounter [id number] 09/23 [facility] OFFICE O/P [place] 60 MIN [id number] Diagnos is: ICD-10- CM D09.0 Carcino ma in situ of bladder
LYNNETTE ROBLES 09/23 [facility] TARGETED CASE MANAGEMENT [id number] KARELY ARANA 09/[address] [facility] [facility] HEARING AID FITTING/CH ECKING [id number] Diagnos is: ICD-10- CM Z46.1 Encount er for fitting and adjustm ent of hearing aid<br/ > Tiesha HERR 12/19 [facility] [place] [facility] Outpatient Encounter [id number] 02/07 [facility] Outpatient Encounter [id number] 02/07 [facility] [place] [facility] HEARING AID REPAIR/MOD IFYING [id number] Diagnos is: ICD-10- CM H90.3 Sensori neural hearing loss, bilater al
ILANA PITTS UREN L 03/10 [facility] [place] [place] [facility] [place] [facility] OFFICE O/P EST MOD 30 MIN [id number] Diagnos is: ICD-10- CM I48.91 Unspeci fied atrial fibrill ation<b r/> Corrie BULLOCK 04/11 [facility] [place] [facility] HEARING SERVICE [id number] Diagnos is: ICD-10- CM Z46.1 Encount er for fitting and adjustm ent of hearing aid<br/ > JASMEETSREEDHARILANA UREN L 04/11 [facility] [place] [facility] [place] [facility] Outpatient Encounter [id number] 04/12 [facility] [place] [facility] [place] [facility] SPECIAL SUPPLIES PHYS/QHP [id number] Diagnos is: ICD-10- CM J44.9 Chronic obstruc tive pulmona ry disease , unspeci fied
HOLLIE EDGAR E P 04/17 [facility] Outpatient Encounter [id number] 04/18 [facility] Outpatient Encounter [id number] 04/18 [facility] Outpatient Encounter [id number] 04/[address] [facility] [place] [facility] Outpatient Encounter [id number] 04/22 [facility] HEARING AID CHECK BOTH EARS [id number] Diagnos is: ICD-10- CM Z46.1 Encount er for fitting and adjustm ent of hearing aid<br/ > CHUY ORTIZ L 04/29 [facility] HEARING AID FITTING/CH ECKING [id number] Diagnos is: ICD-10- CM Z46.1 Encount er for fitting and adjustm ent of hearing aid<br/ > ILANA PITTS L 05/20 [facility] Outpatient Encounter [id number] 06/24 [facility] [place] Social History Combined list of available smoking, tobacco, and other social history from Department of Defense and Veterans Affairs facilities. Social History Type Response Date Comment [facility] e Tobacco smoking status NHIS VA-TOBACCO FORMER USER 04/11/2024 [facility] History of tobacco use VA-TOBACCO QUIT 5 TO < 15 YRS 04/11/2024 [facility] History of tobacco use VA-TOBACCO FORMER USER 09/24/2023 [facility] History of tobacco use [facility]-TOBACCO FORMER [facility]ER 04/[facility]2023 [facility] History of tobacco use [place]CO FORMER USER 04/13/2022 [facility] History of tobacco use [place]-TOBACCO FORMER USER 04/12/2021 [facility] History of tobacco use NJ-TOBACCO QUIT 5 TO < 15 YRS 03/19/2020 [facility] History of tobacco use [place]-TOBACCO FORMER USER 12/12/2018 [facility] History of tobacco use QUIT TOBACCO USE > 7 YEARS AGO 01/21/2018 [facility] History of tobacco use QUIT TOBACCO USE > 7 YEARS AGO 12/25/2016 [facility] Plan of Care List of future care activities from Department of [facility] facilities. Additional future care activities may be listed in the Assessment and Plan section. Date/Time Care Activity Care Activity Detail Facili ty 08/25/2024 AMBULATORY - MEDICINE AMBULATORY - MEDICI [facility] Advance Directives List of completed, amended, or rescinded Advance Directives on record at Department of [facility] facilities. An actual copy of the Directive is not included. Date Advance Directive Provider Source 05/23/2015 ADVANCE DIRECTIVE AMBER PENA [facility]
[2024-06-26 10:59] VITALS: BMI 33.7
--- NOTE | 2024-06-27 10:37 | P.CONAN_ITS ---
Documented by User: Sweta Calderon NP 06/27/24 10:48 HPI - Anesthesia Eval Consult details Narrative: 74yo M for Cystoscopy Bladder biopsy with Fulguration,and Mitomycin and Cytarabine [place] [facility] [place] - started on abx and scheduled nebulizer. T/C 06/27/24 pt reports much improved symptoms. Instructed to finish abx as rx'd and continue scheduled nebulizers until DOS. Eliquis for afib, also s/p pulmo vein isolation. [place] [facility] [place] - stable at last office visit 11/2023 [facility] Active Problems Active Problems: All Active Problems Acute bacterial sinusitis (Acute) Sinusitis (Acute) Bladder cancer (Acute) Atrial fibrillation (Acute) SVT (supraventricular tachycardia) (Acute) LBBB (left bundle branch block) (Acute) PVC (premature ventricular contraction) (Acute) Hypercholesterolemia (Acute) ANALY on CPAP (Acute) COPD (chronic obstructive pulmonary disease) (Acute) Asthma (Acute) Cough (Acute) Allergic rhinitis (Acute) Personal history of nicotine dependence (Acute) Chronic UTI (urinary tract infection) (Acute) Jaundice (Acute) Allergic dermatitis (Acute) Hearing difficulty of both ears (Acute) Encounter for subsequent annual wellness visit (AWV) in Medicare patient (Acute) Past Medical History Medical History Bladder cancer Atrial fibrillation SVT (supraventricular tachycardia) LBBB (left bundle branch block) PVC (premature ventricular contraction) Hypercholesterolemia Asthma COPD (chronic obstructive pulmonary disease) Jaundice ANALY on CPAP Cough Personal history of nicotine dependence History of COVID-19 History of small bowel obstruction GERD (gastroesophageal reflux disease) Erectile dysfunction Obesity (BMI 30-39.9) Family History Family History Father Lung cancer Mother History of breast cancer Sister Multiple myeloma Other Cough Family history of problems with anesthesia: No Surgical History Surgical History History of foot surgery (~2021) History of laparotomy (~2020) History of arthroplasty of right knee (~2020) History of meniscectomy of right knee (~2011) History of cataract surgery (~2020) History of appendectomy History of arthroplasty of left knee (~2019) History of meniscectomy of left knee (~2018) History of bladder surgery Hx of transurethral destruction of bladder lesion History of Problems with Anesthesia: No Social History Social History Household Members: Spouse Housing: House Are you a primary manager critical care unit to a significant other at home: No Do you presently have visiting nurse or other home services: No Alcohol intake: former Patient Tobacco Use Status: Former Tobacco user Tobacco use type: Cigarette Years Smoked: (former smoker - onset 14yo, 1ppd x 46yrs, 45pyh, quit 2009) e-Cigarette/Vaping Use: Never Used Second Hand Smoke Exposure: No Use of substances other than those prescribed or required for medical reasons: No Have you been hit, kicked, punched, or otherwise hurt by someone within the past year? If so, by whom?: No Are you DNR?: No Advance Directives: No Advance Directives Information Provided: Yes Advance Directives Date on File: 02/14/21 Recently lost weight without trying: No Nutrition Risks: No Nutritional Risk Poor oral hygiene: No service: Yes ([employer] - served in [facility]) Current occupational status: retired Current occupational exposures/hazards: Yes (was exposed to Agent [place] while serving in [employer]) Cognitive needs: No Hearing needs: Yes (hearing aide) Vision needs: No Meds Allergies Allergy/AdvReac Type Severity Reaction Status Date / Time dronedarone [From Multaq] Allergy Mild Rash Verified 06/30/24 13:05 amoxicillin [From Augmentin] Allergy liver Verified 06/30/24 13:05 failure clavulanic acid Allergy liver Verified 06/30/24 13:05 [From Augmentin] failure Penicillins AdvReac Intermediate Unknown Verified 06/30/24 13:05 Home Medications ?Medication ?Instructions ?Recorded ?Confirmed ?Last Taken ?Type ipratropium bromide 21 mcg (0.03 1 spray intranasal DAILY 11/27/22 06/30/24 06/30/24 History %) nasal spray docusate sodium 100 mg capsule 100 mg PO DAILY 12/04/23 06/25/24 Unknown History (Colace) gemcitabine 200 mg intravenous 1,000 mg IV QWEEK 12/04/23 06/25/24 Unknown History solution polyethylene glycol 3350 17 gram 17 g PO DAILY 12/04/23 06/25/24 Unknown History oral powder packet (Miralax) fluticasone propionate 230 2 puff inhalation BID 03/06/24 06/30/24 06/30/24 History mcg-salmeterol 21 mcg/actuation HFA inhaler (Advair HFA) albuterol sulfate 1.25 mg/3 mL 1.25 mg inhalation Q4-6H PRN 05/19/24 06/25/24 Unknown History solution for nebulization dupilumab 300 mg/2 mL subcutaneous 300 mg subcut QWEEK 05/19/24 06/25/24 Unknown History pen injector (Dupixent) Exam Height,Weight and Vital Signs: Height 5 ft 6 in Weight 94.801 kg Pertinent Lab Results Pertinent Lab Results: Laboratory Tests 04/18/24 08:05 WBC 14.6 H Hgb 15.3 Hct 43.4 Plt Count 198 Sodium 142 Potassium 4.5 D Chloride 107 Carbon Dioxide 27 BUN 21 H Creatinine 0.89 Narrative Narrative: EKG 04/2024 Vent. Rate : 081 BPM Atrial Rate : 081 BPM P-R Int : 154 ms QRS Dur : 156 ms QT Int : 412 ms P-R-T Axes : 036 -39 107 degrees QTc Int : 478 ms Normal sinus rhythm Left axis deviation Left bundle branch block Abnormal ECG When compared with ECG of 19-JUN-2022 18:31, No significant change was found ECHO 2022 Conclusions: - 1. Normal LV ejection fraction 55-60% with impaired relaxation filling pattern 2. Mildly dilated left atrium 3. Mild mitral regurgitation 4. Mildly dilated ascending aorta at 3.7 cm 5. Normal RV systolic pressure 6. No gross pericardial effusion NM cardiolite stress test 2022 Impression: 1. Myocardial perfusion imaging study shows likely normal myocardial perfusion 2. Gated LVEF is 67% 3. Transient ischemic dilatation not present EKG is nondiagnostic for ischemia Assessment and Plan Assessment Anesthesia Assessment: Chart Reviewed Final Anesthetic Review Family History of Problems with Anesthesia: No History of Problems with Anesthesia: No Documented by User: Nita Pinto MD 06/30/24 14:26 [facility] Past Medical History Medical History Bladder cancer Atrial fibrillation SVT (supraventricular tachycardia) LBBB (left bundle branch block) PVC (premature ventricular contraction) Hypercholesterolemia Asthma COPD (chronic obstructive pulmonary disease) Jaundice ANALY on CPAP Cough Personal history of nicotine dependence History of COVID-19 History of small bowel obstruction GERD (gastroesophageal reflux disease) Erectile dysfunction Obesity (BMI 30-39.9) Family History Family History Father Lung cancer Mother History of breast cancer Sister Multiple myeloma Other Cough Family history of problems with anesthesia: No Surgical History Surgical History History of foot surgery (~2021) History of laparotomy (~2020) History of arthroplasty of right knee (~2020) History of meniscectomy of right knee (~2011) History of cataract surgery (~2020) History of appendectomy History of arthroplasty of left knee (~2019) History of meniscectomy of left knee (~2019) History of bladder surgery Hx of transurethral destruction of bladder lesion History of Problems with Anesthesia: No Social History Social History Household Members: Spouse Housing: House Are you a primary manager critical care unit to a significant other at home: No Do you presently have visiting nurse or other home services: No Alcohol intake: former Patient Tobacco Use Status: Former Tobacco user Tobacco use type: Cigarette Years Smoked: (former smoker - onset 14yo, 1ppd x 46yrs, 45pyh, quit 2009) e-Cigarette/Vaping Use: Never Used Second Hand Smoke Exposure: No Use of substances other than those prescribed or required for medical reasons: No Have you been hit, kicked, punched, or otherwise hurt by someone within the past year? If so, by whom?: No Are you DNR?: No Advance Directives: No Advance Directives Information Provided: Yes Advance Directives Date on File: 02/14/21 Recently lost weight without trying: No Nutrition Risks: No Nutritional Risk Poor oral hygiene: No service: Yes ([employer] - served in [employer] [facility]) Current occupational status: retired Current occupational exposures/hazards: Yes (was exposed to Agent [place] while serving in [employer]) Cognitive needs: No Hearing needs: Yes (hearing aide) Vision needs: No Meds Allergies Allergy/AdvReac Type Severity Reaction Status Date / Time dronedarone [From Multaq] Allergy Mild Rash Verified 06/30/24 13:05 amoxicillin [From Augmentin] Allergy liver Verified 06/30/24 13:05 failure clavulanic acid Allergy liver Verified 06/30/24 13:05 [From Augmentin] failure Penicillins AdvReac Intermediate Unknown Verified 06/30/24 13:05 Home Medications ?Medication ?Instructions ?Recorded ?Confirmed ?Last Taken ?Type ipratropium bromide 21 mcg (0.03 1 spray intranasal DAILY 11/27/22 06/30/24 06/30/24 History %) nasal spray docusate sodium 100 mg capsule 100 mg PO DAILY 12/04/23 06/25/24 Unknown History (Colace) gemcitabine 200 mg intravenous 1,000 mg IV QWEEK 12/04/23 06/25/24 Unknown History solution polyethylene glycol 3350 17 gram 17 g PO DAILY 12/04/23 06/25/24 Unknown History oral powder packet (Miralax) fluticasone propionate 230 2 puff inhalation BID 03/06/24 06/30/24 06/30/24 History mcg-salmeterol 21 mcg/actuation HFA inhaler (Advair HFA) albuterol sulfate 1.25 mg/3 mL 1.25 mg inhalation Q4-6H PRN 05/19/24 06/25/24 Unknown History solution for nebulization dupilumab 300 mg/2 mL subcutaneous 300 mg subcut QWEEK 05/19/24 06/25/24 Unknown History pen injector (Dupixent) Exam Height,Weight and Vital Signs: Height 5 ft 6 in Weight 94.801 kg Vital Signs Temp Pulse Resp BP Pulse Ox O2 Del Method 06/30/24 13:12 98.2 F 69 16 138/83 95 Room Air Airway Mallampati Class: II TM Dist: >3cm Neck ROM: Full Loose/Missing/Broken Teeth: No Heart: RRR Lungs: CTAB Assessment and Plan Assessment Anesthesia Assessment: Anesthesia Plan Discussed and Chart Reviewed Final Anesthetic Review Family History of Problems with Anesthesia: No History of Problems with Anesthesia: No NPO: Yes ASA Class: III Final Preanesthetic Review: No Changes in Pt Med Stat, Meds/Allgs Chart Reviewed, Consent Obtained/Reviewed and Anes Risks/Benef Reviewed Patient Risk: Intermediate Procedure Risk: Low Assessment/Block/Sedation in SS: Assess/Block/Sedation-SS Anesthetic Plan Anesthetic Plan: GA Disposition: Standard PACU
[2024-06-30] VITALS (7 sets, daily range): BP systolic 107–138; BP diastolic 59–83; PULSE 66–74; RESP 14–18; TEMP 36.6–36.9; O2SAT 93–96; BMI 33.1
--- OUTSIDE RECORDS SUMMARY | 2024-06-30 12:41 | XMS_ITS | Encounter Summary ---
Author Name [facility] [place] [facility] [place] [facility] [place] Address [address] [place] [id number] Care Team Providers Care Wellness Nurse Rn Name Role Phone LAURENT ROBLES Primary Care Provider Unavailabl e EPRCY BULLOCK Primary Care Provider Unavailabl e Insurance [...] PART A Dec 14, 2012 PART A [id number] GENEVIEVE ARNOLD JR PATIENT MEDICARE (WNR) MEDICARE (M) PART B Dec 14, 2012 PART B [id number] GENEVIEVE ARNOLD PATIENT MEDICARE PART D (WNR) PRESCRIPT ION PART D Dec 14, 2012 PART D [id number] GENEVIEVE ARNOLD PATIENT [facility] (WNR) MEDICARE ADVANTAGE [facility](W NR) Jul 16, 2022 [id number] GENEVIEVE ARNOLD PATIENT [facility] (WNR) MEDICARE ADVANTAGE [facility] (WNR) Jul 16, 2017 [id number] GENEVIEVE ARNOLD PATIENT Selected Encounter This [...] activities for the [facility] [place] [facility] This section includes future appointments and future [...] 11:00 AM [facility] [place] [facility] Mar 10, 2024 11:00 AM [facility] Vital Signs: All taken on the encounter date This section contains inpatient and outpatient Vital Signs collected on the date of the Encounter. Date/Time Temperature Pulse Blood Pressure Respiratory Rate SP02 Pain Height Weight Body Mass Index Source Sep 24, 2023 01:06 PM 0 [facility] Sep 24, 2023 10:21 AM 0 [facility] Sep 24, 2023 09:26 AM 66 102/66 14 3 [facility] Sep 24, 2023 09:24 AM 98 65 129/86 18 97 3 66 206 33 [facility] Social History: Smoking Status (Most current) and Tobacco Use (All prior to encounter date) This section includes the most current, and the historical, smoking and tobacco- related health factors from the [place] facility where the Encounter took place. Current Smoking Status This section includes the most current smoking, or tobacco-related health factor, from the [place] facility where the Encounter took place. Date/Time Current Smoking Status Comment Adria borjay Sep 24, 2023 09:00 AM [place]-TOBACCO FORMER USER [facility] Tobacco Use History This section includes a history of the smoking, or tobacco-related health factors, that were collected on or before the date of the Encounter. The data comes from the [place] facility where the Encounter took place. Date/Time Smoking Status/Tobacco Use Comment F acility Sep 24, 2023 09:00 AM VA-TOBACCO FORMER USER [facility] Sep 24, 2023 09:00 AM [place]-TOBACCO QUIT 5 TO < 15 YRS [facility] Advance Directives: All historical and [...] 23, 2015 ADVANCE DIRECTIVE AMBER PENA CNTL [facility]
--- OUTSIDE RECORDS SUMMARY | 2024-06-30 12:41 | XMS_ITS | Encounter Summary ---
Author Name [facility] [place] [facility] [place] [facility] [place] Address [address] [place] [address] Care Team Providers Care Bar Pilot Name Role Phone LAURENT ROBLES Primary Care [...] PART A Dec 14, 2012 PART A [id number] [phone] GENEVIEVE ARNOLD JR PATIENT MEDICARE (WNR) MEDICARE (M) PART B Dec 14, 2012 PART B [id number] GENEVIEVE ARNOLD PATIENT MEDICARE PART D (WNR) PRESCRIPT ION PART D Dec 14, 2012 PART D [id number] GENEVIEVE ARNOLD PATIENT [facility] (WNR) MEDICARE ADVANTAGE [facility](W NR) Jul 16, 2022 [id number] GENEVIEVE ARNOLD PATIENT [facility] (WNR) MEDICARE ADVANTAGE [facility] (WNR) Jul 16, 2017 [id number] [phone] GENEVIEVE ARNOLD PATIENT Selected Encounter This section includes the information on record at [place] for the Encounter. Date/Time Encounter Type Encounter Description Reason Provider Source Sep 26, 2023 02:37 PM TARGETED CASE MANAGEMENT ADMIN PAT ACTIVTIES (JEROME) JORGE L ARANAROSALES PUENTES Amaya Encounter Template Text not used by [place] Plan of Treatment: Future Appointments (+ 6 months) and Future Tests (+/- 45 days) The Plan of Treatment section includes future care activities for the patient from all [place] [facility]. This section includes future appointments and future orders which are active, pending or scheduled. Future Appointments This section includes appointments that were scheduled to occur 6 months from the date of the Encounter, up to a maximum of 20 appointments. The data comes from all [place] treatment facilities. Appointment Date/Time Appointment Type Appointme nt Facility Name Dec 20, 2023 11:00 AM AMBULATORY - REHAB MEDICIN E [facility] Mar 10, 2024 11:00 AM AMBULATORY - REHAB MEDICIN E [facility] Social History: Smoking Status (Most current) and Tobacco Use (All prior to encounter date) This section includes the most current, and the historical, smoking and tobacco- related health factors from the [place] facility where the Encounter took place. Current Smoking Status This section includes the most current smoking, or tobacco-related health factor, from the [place] facility where the Encounter took place. Date/Time Current Smoking Status Comment Facil ity Sep 24, 2023 09:00 AM [place]-TOBACCO FORMER USER [facility] Tobacco Use History This section includes a history of the smoking, or tobacco-related health factors, that were collected on or before the date of the Encounter. The data comes from the [place] facility where the Encounter took place. Date/Time Smoking Status/Tobacco Use Comment F acility Sep 24, 2023 09:00 AM VA-TOBACCO FORMER USER [facility] Sep 24, 2023 09:00 AM [place]-TOBACCO QUIT 5 TO < 15 YRS [facility] Advance Directives: All historical and current Section Date Range: From patient's date of to the date document was created. This section includes ALL of a patient's completed or amended [place] Advance and Rescinded Directives. The entries below indicate that a directive exists for the patient, but an actual copy is not included with this document. The data comes from all [place] facilities. Date Advance Directives Provider Source May 23, 2015 ADVANCE DIRECTIVE JEANAMBER BRIDGER Jarad Fragoso CNTRCorrie [facility] Encounter Notes: All associated encounter notes [...] part of PCMM notification. Multi-PACT assignment for [facility] and [facility] approved in PCMM Web due to complexity of care. /kristen/ YOANA ARANA PA-C PHYSICIAN RN ACUTE DIALYSIS Signed: 09/26/2023 14:38 YOANA ARANA [facility]
--- OUTSIDE RECORDS SUMMARY | 2024-06-30 12:41 | XMS_ITS | Encounter Summary ---
Author Name [facility] [place] Address [address] [place] [address] Care Team Providers Care Chief Deputy Court Clerk Name Role Phone NIKOLAI FREY Primary Care [...] PART A Dec 14, 2012 PART A [id number] GENEVIEVE ARNOLD JR PATIENT MEDICARE (WNR) MEDICARE (M) PART B Dec 14, 2012 PART B [id number] GENEVIEVE ARNOLD PATIENT MEDICARE PART D (WNR) PRESCRIPT ION PART D Dec 14, 2012 PART D [id number] GENEVIEVE ARNOLD PATIENT [facility] (WNR) MEDICARE ADVANTAGE MCR(W NR) Jul 16, 2022 [id number] GENEVIEVE ARNOLD PATIENT [facility] (WNR) MEDICARE ADVANTAGE [facility] (WNR) Jul 16, 2017 [id number] GENEVIEVE ARNOLD PATIENT Selected Encounter This section includes the information on record at [place] for the Encounter. 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 Date/Time Primary/Secondary Diagnosis Diagnosis Name Provider Source Sep 24, 2023 04:25 PM PRIMARY Carcinoma in situ of bladder [facility] Sep 24, 2023 04:25 PM SECONDARY Chronic obstructive pulmonary disease, unspecified [facility] Sep 24, 2023 04:25 PM SECONDARY Contact with and exposure to other hazardous substances [facility] Sep 24, 2023 04:25 PM SECONDARY Essential (primary) hypertension [facility] Sep 24, 2023 04:25 PM SECONDARY intermission coordinator (current) use of anticoagulants [facility] Sep 24, 2023 04:25 PM SECONDARY Other hyperlipidemia [facility] Sep 24, 2023 04:25 PM SECONDARY Personal history of antineoplastic chemotherapy [facility] Sep 24, 2023 04:25 PM SECONDARY Personal history of COVID-19 [facility] Sep 24, 2023 04:25 PM SECONDARY Tinnitus, unspecified ear [facility] Sep 24, 2023 04:25 PM SECONDARY Unsp intestnl obst, unsp as to partial versus complete obst [facility] Sep 24, 2023 04:25 PM SECONDARY Unspecified atrial fibrillation [facility] Sep 24, 2023 04:25 PM SECONDARY Unspecified chronic bronchitis [facility] Sep 24, 2023 04:25 PM SECONDARY Unspecified sensorineural hearing loss [facility] Plan of Treatment: Future Appointments (+ 6 months) and Future Tests (+/- 45 days) The Plan of Treatment section includes future care activities for the patient from all [place] [facility]. This section includes future appointments and future orders which are active, pending or scheduled. Future Appointments This section includes appointments that were scheduled to occur 6 months from the date of the Encounter, up to a maximum of 20 appointments. The data comes from all [place] treatment facilities. Appointment Date/Time Appointment Type Appointme nt Facility Name Dec 20, 2023 11:00 AM AMBULATORY - REHAB [facility] Mar 10, 2024 11:00 AM AMBULATORY - [facility] Vital Signs: All taken on the encounter date This section contains inpatient and outpatient Vital Signs collected on the date of the Encounter. Date/Time Temperature Pulse Blood Pressure Respiratory Rate SP02 Pain Height Weight Body Mass Index Source Sep 24, 2023 01:06 PM 0 [facility] Sep 24, 2023 10:21 AM 0 [facility] Sep 24, 2023 09:26 AM 66 102/66 14 3 [facility] Sep 24, 2023 09:24 AM 98 65 129/86 18 97 3 66 206 33 [facility] Social History: Smoking Status (Most current) and Tobacco Use (All prior to encounter date) This section includes the most current, and the historical, smoking and tobacco- related health factors from the [place] facility where the Encounter took place. Current Smoking Status This section includes the most current smoking, or tobacco-related health factor, from the [place] facility where the Encounter took place. Date/Time Current Smoking Status Comment Facil ity Sep 24, 2023 09:00 AM [place]-TOBACCO FORMER USER [facility] Tobacco Use History This section includes a history of the smoking, or tobacco-related health factors, that were collected on or before the date of the Encounter. The data comes from the [place] facility where the Encounter took place. Date/Time Smoking Status/Tobacco Use Comment F acility Sep 24, 2023 09:00 AM [place]-TOBACCO FORMER USER [facility] Sep 24, 2023 09:00 AM [place]-TOBACCO QUIT 5 TO < 15 YRS [facility] Advance Directives: All historical and current Section Date Range: From patient's date of to the date document was created. This section includes ALL of a patient's completed or amended [place] Advance and Rescinded Directives. The entries below indicate that a directive exists for the patient, but an actual copy is not included with this document. The data comes from all [place] facilities. Date Advance Directives Provider Source May 23, 2015 ADVANCE DIRECTIVE AMBER PENA [facility] Encounter Notes: All associated encounter notes [...] [facility] and [place] non- [place] in [place]. The has 1 ER visit, no recent hospitalizations, no falls. Today, the patient presents to establish care. He is accompanied by his Isela. Needs to establish care to be in the system. He is a [place] and follows w/ the [place] there, but also a non-VA PCP. Patient and his state that since the pt had Covid 19, all of his health problems became exacerbated. Mr. Arnold was hospitalized in [place] for tachycardia in December 2022, which was [...] 5 weeks remaining. He follows w/ the [facility]. Mr. Arnold and his have been snowbirds to [place] for the past 12 years. They stay near [place] in an park and have a close network of friends. Endorses daily BM. He takes colace qpm and Miralax qam. He has had 2 SBOs in the past. No blood in BM. Medication list provided. Reaction to codeine, vomited. He follows w/ a non-VA PCP in [place]: - PCP: Dr. Agarwal Po - Oncologist: Dr. Caldera at [facility] for bladder cancer treatment ACTIVE PROBLEM LIST: - Bladder cancer - Essential HTN - HLD - Afib s/p ablation April 2022 - COPD, exacerbated since Covid - Hearing loss - SBO 2x - h/o Covid 19 infection - Arthritis (both knees partial replacement at [facility]) - ANALY adherent to CPAP GERIATRIC ASSESSMENT: [...] - Currently treated and followed by the [facility]. 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 Printed information was offered and provided if desired. No questions at this time [place]/caregiver was informed of local points of contact. Contact information for local resources: Enrollment and Eligibility - Yonny Paulino ext [phone] Environmental Health and Registry - Melisa Damico ext [phone] [facility] for Toxic Exposure Screening - Krysta Millard ext [phone] Questions can be sent to: Toxic Exposure Screening Follow-Up reminder is needed. Name of person notified: Nikolai Frey Toxic Exposure Screening Follow-Up: Exposure Concern(s): 09/24/2023 Agent Rolette - Toxic Exposure Concern Follow-up Question(s): 09/24/2023 No Questions - Toxic Exposure Concern [place]/caregiver has health or medical concerns related to [...] this visit. /kristen/ NIKOLAI FREY MD, MPH, [facility] Physician Signed: 09/24/2023 16:25 NIKOLAI FREY [facility] Sep 24, 2023 09:05 AM NURSING OUTPATIENT [...] vet. Request for to be enrolled in [facility] SCREENINGS: Alcohol Use Screen (AUDIT-C) Alcohol Screen: [...] guard, watchful, or easily startled? YES 5. [place] numb or detached from people, activities, or your surroundings? YES 6. [place] guilty or unable to stop blaming yourself or others for the event(s) or any problems the event(s) may have caused? NO Licensed Independent Provider notified of positive screen and need for follow-up. Name of provider notified: [facility] Patient denies having any of the above issues. Suicide Screen C-SSRS Screening [place] Suicide Severity Rating Scale (C-SSRS) screener 1. 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 [place]/caregiver believes the [place] was exposed to the following while serving in the Armed Forces: Agent Rolette: /caregiver was made aware of educational resources that includes information on the Registry Program, presumptive conditions and how to file a claim. Printed information was offered and provided if desired. No questions at this time /caregiver was informed of local points of contact. Contact information for local resources: Enrollment and Eligibility - Yonny Paulino ext. [phone] Environmental Health and Registry - Melisa Damico ext. [phone] SME for Toxic Exposure Screening - Krysta Millard ext. [phone] Questions can be sent to: Toxic Exposure Screening Follow-Up reminder is needed. Name of person notified: Shante Patients language preference for health information is: Ethiopian What is your preferred method(s) for learning/receiving [...] method used: >>> One-to-one verbal with patient [place] instructed to call the Crisis Hotline by [...] Not worried about housing near future The [place] reports the following: Within the past 12 [...] for money or material goods including food, longterm, alcohol and/or drugs? NO Is anyone taking your money, your check or your assets and using it for their own personal benefit? NO Patient has none of the above signs of abuse/neglect/exploitation. Sexual Orientation: The patient thinks of their sexual orientation as: Straight or Heterosexual /kristen/ ALE AROLDO GONZALEZ LPN Signed: 09/24/2023 09:31 ALE GONZALEZ [facility]
--- OUTSIDE RECORDS SUMMARY | 2024-06-30 12:41 | XMS_ITS | Encounter Summary ---
Author Name [place] Organization [place] Address [address] [place] [id number] Care Team Providers Care Automatic Folder Seamer Name Role Phone LAURENT ROBLES Primary Care [...] PART A Dec 14, 2012 PART A [id number] GENEVIEVE ARNOLD JR PATIENT MEDICARE (WNR) MEDICARE (M) PART B Dec 14, 2012 PART B [id number] GENEVEIVE ARNOLD PATIENT MEDICARE PART D (WNR) PRESCRIPT ION PART D Dec 14, 2012 PART D [id number] GENEVIEVE ARNOLD PATIENT [facility] (WNR) MEDICARE ADVANTAGE [facility](W NR) Jul 16, 2022 [id number] GENEVIEVE ARNOLD PATIENT [facility] (WNR) MEDICARE ADVANTAGE [facility] (WNR) Jul 16, 2017 [id number] [phone] GENEVIEVE ARNOLD PATIENT Selected Encounter This [...] 24, 2023 09:00 AM [facility] Dec 20, 2023 11:00 AM [facility] Mar 10, 2024 11:00 AM AMBULATORY - [facility] Advance Directives: All historical and current Section Date Range: From patient's date of to the date document was created. This section includes ALL of a patient's completed or amended [place] Advance and Rescinded Directives. The entries below indicate that a directive exists for the patient, but an actual copy is not included with this document. The data comes from all [facility]. Date Advance Directives Provider Source May 23, 2015 ADVANCE DIRECTIVE [facility]BER PENA [facility] Encounter Notes: All associated encounter notes [...] Reaction Info PNEUMOCOCCAL POLYSACCHARIDE PPV23 11/20/2014 [facility]: [facility]* TDAP 11/20/2014 [facility] PNEUMOCOCCAL CONJUGATE PCV 13 04/25/2016 [facility]: [facility]* ZOSTER RECOMBINANT 1 05/03/2019 [facility] COVID-19 (PFIZER), MRNA, LNP-S, * 1 07/25/2020 [facility]: [facility]* COVID-19 (PFIZER), MRNA, LNP-S, * 2 08/15/2020 [facility]* COVID-19 (PFIZER), MRNA, LNP-S, * 3 04/11/2021 [facility]: [facility]* INFLUENZA, UNSPECIFIED FORMULATI* 04/09/2023 [facility]: [facility]* CONTRAINDICATED No data available REFUSED ======= No [...] Date Administered: Jun 05, 2023 Outside Location: [facility] Information Source: FROM OTHER REGISTRY /kristen/ ALE GONZALEZ LPN Signed: 09/20/2023 14:14 ALE GONZALEZ [facility] Sep 20, 2023 01:50 PM MUSIC ARTIST NOTE: LOCAL TITLE: PRE VISIT SCRUB NOTE STANDARD TITLE: MUSIC ARTIST NOTE DATE OF NOTE: SEP 20, 2023@13:50 ENTRY DATE: SEP 20, 2023@13:50:53 AUTHOR: ALE GONZALEZ EXP COSIGNER: URGENCY: STATUS: COMPLETED Face to Face Visit Two approved identifiers verified. Confirmed appointment date and time. Sep@09:00 [facility] GPC PROVIDER 1 Does patient express interest [...] to bring outside records to visit. Comment: [place], [place] Patient does not require a Caregiver for upcoming visit(s). Patient reminded of the following: - Have blood pressure log available if hypertensive - Have blood sugar log available if diabetic - Bring valid ID for MAS to update demographics - Do not drink any caffeinated drinks - Empty bladder before visit - [place] for [facility] - Take medications the morning [...] Administered: Apr 09, 2023 Outside Location: [place]: [facility] Information Source: FROM PATIENT'S WRITTEN RECORD COVID-19 Immunization: Pfizer Patient received a prior dose of the Pfizer COVID-19 Vaccine. Documented: COVID-19 (PFIZER), MRNA, LNP-S, PF, 30 MCG/0.3 ML DOSE Historical Date Administered: Jul 25, 2020 Series: Series 1 Outside Location: [place]: [place], [place] Information Source: FROM PATIENT'S WRITTEN RECORD Patient received a prior dose of the Pfizer COVID-19 Vaccine. Documented: COVID-19 (PFIZER), MRNA, LNP-S, PF, 30 MCG/0.3 ML DOSE Historical Date Administered: Aug 15, 2020 Series: Series 2 Outside Location: [place], [place] Information Source: FROM PATIENT'S WRITTEN RECORD Patient received a prior dose of the Pfizer COVID-19 Vaccine. Documented: COVID-19 (PFIZER), MRNA, LNP-S, PF, 30 MCG/0.3 ML DOSE Historical Date Administered: Apr 11, 2021 Series: Series 3 Outside Location: [place]: [place], [place] Information Source: FROM PATIENT'S WRITTEN RECORD Herpes Zoster (Shingles) Vaccine: Prior Herpes Zoster vaccination Herpes zoster (shingles) vaccine given previously - written records available Zoster Recombinant (Shingrix): Documented: ZOSTER RECOMBINANT Historical Date Administered: May 03, 2019 Series: Series 1 Outside Location: [facility] Information Source: FROM OTHER REGISTRY Tdap Immunization: Td/Tdap given previously - written records available The patient has previously received the Tetanus, Diphtheria, Pertussis vaccine (Tdap). Documented: TDAP Historical Date Administered: November 20, 2014 Outside Location: [place]: [place], [place] Information Source: FROM PATIENT'S WRITTEN RECORD Pneumococcal Conjugate Vaccine (PCV15/PCV20): Pneumococcal vaccine given previously - written records available Documented: PNEUMOCOCCAL POLYSACCHARIDE PPV23 Historical Date Administered: November 20, 2014 Outside Location: [facility], Information Source: FROM PATIENT'S WRITTEN RECORD Documented: PNEUMOCOCCAL CONJUGATE PCV 13 Historical Date Administered: Apr 25, 2016 Outside Location: [place]: [place], [place] Information Source: FROM PATIENT'S WRITTEN RECORD /rochelle GONZALEZ LPN Signed: 09/20/2023 14:12 ALE GONZALEZ [facility]
--- OUTSIDE RECORDS SUMMARY | 2024-06-30 12:41 | XMS_ITS | Continuity of Care Document ---
Author Name [facility] Organization [facility] Care Team Providers Care Header Dock Name Role Phone [facility] Unavailable Unavailable Problems Combined list of problems [...] HCS Exposure to potentially hazardous substance (SCT [id number]) Active Condition Oct 18 4 Entered By: LIUDMILA SUBRAMANIAN Comment: Entered automatically through [facility] Problem List documentation program [facility] Exposure to potentially hazardous substance (SCT [id number]) Active Condition Apr 15 4 Entered By: [...] EMMANUEL JI Comment: DR Corrie BLANTON ( [facility]) - visit 12/11/18Ju2017 Entered By: EMMANUEL JI Comment: [place] - SEE DRIVABILITY TECHNICIAN WHEN IN [place] ( JUN THRU NOVEMBER )Apr 30, 2018 Entered By: EMMANUEL JI Comment: NON [facility] -December 12, 2018 Entered By: EMMANUEL JI Comment: [place]rolog[place] ( [place] ( [facility]- DR Del Valle / Lenin COHEN - [...] H90.3 Sensorineural hearing loss, bilateral Active Diagnosis [facility] Diagnosis: ICD-10-CM 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 [facility] Medications Combined list of outpatient medications [...] G RESPIR ATORY (INHAL ATION) ACTIVE 04/18/2025 [id number] PERCY BULLOCK 2023 60 [facility] APIXABAN 5MG TAB TAKE ONE TABLET BY MOUTH EVERY 12 HOURS ORAL ACTIVE RA DARREN RODRIGUEZ 2021 [facility] APIXABAN 5MG TAB TAKE ONE TABLET BY MOUTH EVERY 12 HOURS ORAL ACTIVE AZARBSharyn RAZO 2023 [facility] ASPIRIN 81MG TAB,EC TAKE ONE TABLET BY MOUTH TWICE DAILY ORAL complet Mike Martinez 2018 [facility] CETIRIZINE HCL 10MG TAB TAKE ONE-HALF TABLET BY MOUTH EVERY DAY ORAL ACTIVE AZARBALShayrn 2023 [facility] DOCETAXEL INJ,CONC INJECT INTRAVEN OUSLY INTRAV ENOUS ACTIVE AZARBALJ KOTA 2023 [facility] DOCUSATE NA 250MG CAP TAKE 1 CAPSULE BY MOUTH EVERY DAY ORAL ACTIVE AZARBALSharyn 2023 [facility] FLUTICASONE 250MCG/SALM ETEROL 50MCG INHL,ORAL,D ISKUS,60 INHALE 1 PUFF BY MOUTH EVERY DAY ORAL ACTIVE AZARBALSharyn 2023 [facility] GEMCITABINE HCL INJ INJ INJECT 200 MG INTRAVEN OUSLY INTRAV ENOUS ACTIVE AZARBALSharyn ESCUDERO 2023 [facility] IPRATROPIUM BR 0.03% SOLN,SPRAY, NASAL 1 SPRAY INTO EACH NOSTRIL EVERY DAY NASAL ACTIVE AZAADANSharyn GUERRA2023 [facility] METOPROLOL SUCCINATE 100MG TAB,SA TAKE ONE-HALF TABLET BY MOUTH TWICE A DAY ORAL ACTIVE AZAADANSharyn GUERRA2023 [facility] METOPROLOL TARTRATE 50MG TAB TAKE ONE TABLET BY MOUTH TWICE DAILY ORAL ACTIVE PETROFF,S 2018 [facility] OMEPRAZOLE 20MG CAP,EC TAKE 1 CAPSULE BY MOUTH EVERY DAY ORAL ACTIVE AZARBALSharyn GUERRA2023 [facility] OMEPRAZOLE 20MG CAP,EC TAKE 1 CAPSULE BY MOUTH EVERY MORNING 30 MINUTES BEFORE BREAKFAS T ORAL ACTIVE PETROFF,S 2018 [facility] POLYETHYLEN E GLYCOL 3350 PWDR,ORAL TAKE 17 GM (ONE CAPFUL) BY MOUTH EVERY DAY ORAL ACTIVE MARGARETSharyn GUERRA2023 [facility] PREDNISONE 20MG TAB TAKE TWO TABLETS BY MOUTH ONCE DAILY COPD FLARE ORAL 05/11/2024 [id number] PERCY BULLOCK 2023 10 [facility] SIMVASTATIN 80MG TAB TAKE ONE-HALF TABLET BY MOUTH AT BEDTIME ORAL ACTIVE PETROFF,S 2018 [facility] SIMVASTATIN 80MG TAB TAKE ONE-HALF TABLET BY MOUTH AT BEDTIME ORAL ACTIVE CLAUDIAPEDRITODANNISharyn GUERRA2023 [facility] TIOTROPIUM 18MCG CAP,INHL,30 INSERT 1 CAPSULE INTO AEROLIZE R AND INHALE BY MOUTH EVERY DAY RESPIR ATORY (INHAL ATION) ACTIVE MARGARETSharyn 2023 [facility] Allergies, Adverse Reactions, Alerts Combined list of allergies from Department of Defense and Veterans Affairs facilities. It does not include entries that were removed or entered in error. Substance Category Reaction Severity Reaction type Status Date Reported Comments Source AMOXICILLIN Propensity to adverse reactions to drug (finding) Jaundice SEVERE active 4 [facility] CODEINE Propensity to adverse reactions to drug (finding) Nausea and vomiting active 4 [facility] MULTAQ Propensity to adverse reactions to drug (finding) Eruption [facility] Immunizations Combined list of available immunizations from the Department of Defense and Veterans Affairs facilities. Immunization Series Date Given Administered By Site Reaction Lot Number CVX Code Drug Pre K Teacher Status Comments Source INFLUENZA, HIGH-DOSE, TRIVALENT, PF 2023 ALEC BENTLEY RIGHT DELTO ID [id number] 135 complet ed [facility] RSV, BIVALENT, PROTEIN SUBUNIT RSVPREF, DILUENT RECONSTITUTED , 0.5 ML, PF 2023 MCALEC L LEFT DELTO ID [id number] 305 complet ed Sterile water diluent Lot #- [id number] 11/2024 [facility] RSV, RECOMBINANT, PROTEIN SUBUNIT RSVPREF, ADJUVANT RECONSTITUTED , 0.5 ML, PF 2022 303 complet ed [facility] INFLUENZA, HIGH-DOSE, QUADRIVALENT 2022 ALEC BENTLEY LEFT DELTO ID [id number] 197 complet ed [facility] INFLUENZA, UNSPECIFIED FORMULATION 2022 88 complet ed [facility] COVID-19 (PFIZER), MRNA, LNP-S, PF, 30 MCG/0.3 ML DOSE 2020 208 complet ed [facility] INFLUENZA, UNSPECIFIED FORMULATION 2020 88 complet ed [facility] COVID-19 (PFIZER), MRNA, LNP-S, PF, 30 MCG/0.3 ML DOSE 2 2020 208 complet ed [facility] COVID-19 (PFIZER), MRNA, LNP-S, PF, 30 MCG/0.3 ML DOSE 1 2020 208 complet ed [place] ZOSTER RECOMBINANT 1 2018 187 complet ed [facility] ZOSTER RECOMBINANT 1 2018 187 complet ed [facility] INFLUENZA, TRIVALENT, ADJUVANTED 2018 168 complet ed Site: Left Deltoid [facility] INFLUENZA, SEASONAL, INJECTABLE 2017 141 complet ed Site: Left Deltoid [facility] INFLUENZA, SEASONAL, INJECTABLE 2016 141 complet ed [facility] PNEUMOCOCCAL CONJUGATE PCV 13 2015 133 complet ed [facility] [place] PNEUMOCOCCAL POLYSACCHARID E PPV23 2014 33 complet ed [facility] TDAP 2014 115 complet ed [facility] [place] Vital Signs Combined list of inpatient and outpatient Vital Signs from Department of Defense and Veterans Affairs, ranging from 12 months to all on record, depending upon the facility. Vital Sign Value Date Comments Source SYSTOLIC BLOOD PRESSURE 125 04/11/20 24 09:48:39 [facility] DIASTOLIC BLOOD PRESSURE 80 024 09:48:39 [facility] PULSE OXIMETRY 94 04/11/2024 09:48:39 [facility] WEIGHT 208.2 04/11/2024 09:48:39 [facility] BMI 34kg/m2 04/11/2024 09:48:39 [facility] PAIN 1 04/11/2024 09:48:39 [facility] TEMPERATURE 97.5 04/11/2024 09:48:39 [facility] PULSE 68 04/11/2024 09:48:39 [facility] RESPIRATION 16 04/11/2024 09:48:39 [facility] SYSTOLIC BLOOD PRESSURE 129 09/24/19 24 09:24:42 [facility] DIASTOLIC BLOOD PRESSURE 86 024 09:24:42 [facility] PULSE OXIMETRY 97 09/24/2023 09:24:42 [facility] WEIGHT 206 09/24/2023 09:24:42 [facility] BMI 33kg/m2 09/24/2023 09:24:42 [facility] PAIN 3 09/24/2023 09:24:42 [facility] HEIGHT 66 09/24/2023 09:24:42 [facility] TEMPERATURE 98 09/24/2023 09:24:42 [facility] PULSE 65 09/24/2023 09:24:42 [facility] RESPIRATION 18 09/24/2023 09:24:42 [facility] Encounters Combined list of: 1) Encounters from Department of Veterans Affairs facilities going back up to thelast 18 months. 2) Encounters from the Department of Defense facilities going back up to 280 months. Location Location Details Encounter Type Encounter Number Reason For Visit Attending Provider ADM Date DC Date Status Disposition Source [facility] Outpatient Encounter [id number] 04/09 [facility] OFFICE O/P EST MOD 30-39 MIN [id number] Diagnos is: ICD-10- CM I48.91 Unspeci fied atrial fibrill ation<b r/> Corrie BULLOCK 04/09 [place] [facility] [place] Outpatient Encounter [id number] 06/05 [facility] Outpatient Encounter [id number] 09/19 [facility] Outpatient Encounter [id number] 09/23 [facility] OFFICE O/P [place] 60 MIN [id number] Diagnos is: ICD-10- CM D09.0 Carcino ma in situ of bladder
LYNNETTE ROBLES 09/23 [facility] TARGETED CASE MANAGEMENT [id number] KARELY ARANA 09/25 [facility] [place] [facility] HEARING AID FITTING/CH ECKING [id number] Diagnos is: ICD-10- CM Z46.1 Encount er for fitting and adjustm ent of hearing aid<br/ > Tiesha HERR 12/19 [facility] Outpatient Encounter [id number] 02/07 [facility] Outpatient Encounter [id number] 02/07 [facility] [place] [facility] HEARING AID REPAIR/MOD IFYING [id number] Diagnos is: ICD-10- CM H90.3 Sensori neural hearing loss, bilater al
ILANA PITTS UREN L 03/10 [facility] [place] [place] [facility] OFF[facility] O/P EST MOD 30 MIN [id number] Diagnos is: ICD-10- CM I48.91 Unspeci fied atrial fibrill ation<b r/> Corrie BULLOCK 04/11 [facility] [place] [place] [facility] HEARING SERVICE [id number] Diagnos is: ICD-10- CM Z46.1 Encount er for fitting and adjustm ent of hearing aid<br/ > JASMEETSREEDHARILANA UREN L 04/11 [facility] [place] [place] [facility] Outpatient Encounter [id number] 04/12 [facility] [place] [place] SPECIAL SUPPLIES PHYS/QHP [id number] Diagnos is: ICD-10- CM J44.9 Chronic obstruc tive pulmona ry disease , unspeci fied
HOLLIE EDGAR E P 04/17 [facility] Outpatient Encounter [id number] 04/18 [facility] Outpatient Encounter [id number] 04/18 [facility] Outpatient Encounter [id number] 04/21 [facility] Outpatient Encounter [id number] 04/22 [facility] HEARING AID CHECK BOTH EARS [id number] Diagnos is: ICD-10- CM Z46.1 Encount er for fitting and adjustm ent of hearing aid<br/ > CHUY ORTIZ L 04/29 [facility] HEARING AID FITTING/CH ECKING [id number] Diagnos is: ICD-10- CM Z46.1 Encount er for fitting and adjustm ent of hearing aid<br/ > ILANA PITTS L 05/20 [facility] Outpatient Encounter [id number] 06/24 [facility] Social History Combined list of available smoking, tobacco, and other social history from Department of Defense and Veterans Affairs facilities. Social History Type Response Date Comment [facility]ly [facility] e Tobacco smoking status NHIS VA-TOBACCO FORMER USER 04/11/2024 [facility] History of tobacco use VA-TOBACCO QUIT 5 TO < 15 YRS 04/11/2024 [facility] History of tobacco use VA-TOBACCO FORMER USER 09/24/2023 [facility] History of tobacco use VA-TOBACCO FORMER USER [facility] History of tobacco use RI-TOBACCO FORMER USER 04/13/2022 [facility] History of tobacco use RI-TOBACCO FORMER USER 04/12/2021 [facility] History of tobacco use RI-TOBACCO QUIT 5 TO < 15 YRS 03/19/2020 [facility] History of tobacco use RI-TOBACCO QUIT 5 TO < 15 YRS 12/12/2018 [facility] History of tobacco use QUIT TOBACCO USE > 7 YEARS AGO 01/21/2018 [facility] History of tobacco use QUIT TOBACCO USE > 7 YEARS AGO 12/25/2016 [facility] Plan of Care List of future care activities from [facility] facilities. Additional future care activities may be listed in the Assessment and Plan section. Date/Time Care Activity Care Activity Detail Facili 08/25/2024 AMBULATORY - MEDICINE AMBULATORY - MEDICI [facility] 06/26/2024 Consult Order COMMUNITY CARE-[facility] Cons Casing Running Machine Tender's Choice [facility] Advance Directives List of completed, amended, or rescinded Advance Directives on record at [facility] facilities. An actual copy of the Directive is not included. Date Advance Directive Provider Source 05/23/2015 ADVANCE DIRECTIVE [facility]BER [facility]
--- OUTSIDE RECORDS SUMMARY | 2024-06-30 12:42 | XMS_ITS | Encounter Summary ---
Author Name [facility] [place] [facility] [place] Address [address] [place] [address] Care Team Providers Care Fine Grade Bulldozer Operator Name Role Phone LAURENT ROBLES Primary [...] PART A Dec 14, 2012 PART A [id number] GENEVIEVE ARNOLD JR PATIENT MEDICARE (WNR) MEDICARE (M) PART B Dec 14, 2012 PART B [id number] GENEVIEVE ARNOLD PATIENT MEDICARE PART D (WNR) PRESCRIPT ION PART D Dec 14, 2012 PART D [id number] GENEVIEVE ARNOLD PATIENT [facility] (WNR) MEDICARE ADVANTAGE MCR(W NR) Jul 16, 2022 [id number] GENEVIEVE ARNOLD PATIENT [facility] (WNR) MEDICARE ADVANTAGE [facility] (WNR) Jul 16, 2017 [id number] GENEVIEVE ARNOLD PATIENT Selected Encounter This section includes the information on record at [place] for the Encounter. Date/Time Encounter Type Encounter Description Reason Provider Source Apr 29, 2024 01:00 PM HEARING AID CHECK BOTH EARS AUDIOLOGY ICD-10-CM Z46.1 Encounter for fitting and adjustment of hearing aid ANAIS ORTIZ Amaya Encounter Template Text not used by [place] Assessments - Encounter Diagnoses This section includes the primary and secondary diagnoses documented for the Encounter. Date/Time Primary/Secondary Diagnosis Diagnosis Name Provider Source Apr 29, 2024 01:13 PM PRIMARY Encounter for fitting and adjustment of hearing aid RENETTA DOBBS JORGE [facility] Apr 29, 2024 01:13 PM SECONDARY Sensorineural hearing loss, bilateral [facility] Plan of Treatment: Future Appointments (+ 6 months) and Future Tests (+/- 45 days) The Plan of Treatment section includes future care activities for the patient from all [facility]. This section includes future appointments and future orders which are active, pending or scheduled. Future Appointments This section includes appointments that were scheduled to occur 6 months from the date of the Encounter, up to a maximum of 20 appointments. The data comes from all [place] treatment facilities. Appointment Date/Time Appointment Type Appointme nt Facility Name May 19, 2024 02:00 PM [facility] May 20, 2024 09:00 AM AMBULATORY - REHAB MEDICIN [facility] Aug 25, 2024 08:30 AM AMBULATORY [...] of theEncounter. The data comes from all [place] treatment facilities. 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 Current Smoking Status This section includes the most current smoking, or tobacco-related health factor, from the [place] facility where the Encounter took place. Date/Time Current Smoking Status Comment Adria ity Apr 11, 2024 09:30 AM VA-TOBACCO FOR[facility] Tobacco Use History This section includes a history of the smoking, or tobacco-related health factors, that were collected on or before the date of the Encounter. The data comes from the [place] facility where the Encounter took place. Date/Time Smoking Status/Tobacco Use Comment Kiara acility Apr 11, 2024 09:30 AM VA-TOBACCO QUIT 5 TO < 15 YRS [facility] [place] [facility] Apr 09, 2023 09:00 AM VA-TOBACCO FORMER USER [facility] [place] [facility] Apr 09, 2023 09:00 AM VA-TOBACCO QUIT 5 TO < 15 YRS [facility] [place] [facility] Apr 13, 2022 09:30 AM VA-TOBACCO FORMER USER [facility] [place] [facility] Apr 13, 2022 09:30 AM VA-TOBACCO QUIT 5 TO < 15 YRS [facility] [place] [facility] Apr 12, 2021 11:30 AM VA-TOBACCO FORMER USER [facility] [place] [facility] Apr 12, 2021 11:30 AM VA-TOBACCO QUIT 5 TO < 15 YRS [facility] [place] [facility] Mar 19, 2020 09:00 AM VA-TOBACCO FORMER USER [facility] [place] [facility] Mar 19, 2020 09:00 AM VA-TOBACCO QUIT 5 TO < 15 YRS [facility] [place] [facility] December 12, 2018 10:18 AM VA-TOBACCO FORMER USER [facility] [place] [facility] December 12, 2018 10:18 AM VA-TOBACCO QUIT 5 TO < 15 YRS [facility] [place] [facility] Jan 21, 2018 07:50 AM QUIT TOBACCO USE > 7 YEARS AGO [facility] [place] [facility] Dec 25, 2016 10:59 AM QUIT TOBACCO USE > 7 YEARS AGO [facility] Advance Directives: All historical and [...] May 23, 2015 ADVANCE DIRECTIVE AMBER PENA [facility] Encounter Notes: All associated encounter notes This section contains the clinical notes associated to the Encounter. Date/Time Encounter Note(s) Provider Source Apr 29, 2024 07:47 AM AUDIOLOGY NOTE: LOCAL TITLE: AUDIOLOGY HEALTH SHEET METAL ASSEMBLER AND RIVETER STANDARD TITLE: AUDIOLOGY NOTE DATE OF NOTE: APR 29, 2024@07:47 ENTRY DATE: APR 29, 2024@07:47:18 AUTHOR: CHANA DOBBS EXP COSIGNER: ANAIS ORTIZ URGENCY: STATUS: COMPLETED AUDIOLOGY HEALTH SHEET METAL ASSEMBLER AND RIVETER Has ADDENDA April 29, 2024 History/Background: [place] was seen for a hearing aid follow up, unaccompanied. The [place] presented today reporting the wire for his [...] microshell earmolds will be sent to the assistant site manager to have the receivers replaced with a size 3 100 gain service desk technician and to make a larger vent. Plan: Upon receipt of the hearing aids/earmolds, [place] can be contacted to schedule a 30 min HAC with an Hi Lift Operator. /kristen/ CHANA DOBBS Audiology Health Estate Planning Attorney Signed: 04/29/2024 14:08 /kristen/ ANAIS Rodriguez MIGUEL A-A CHIEF, AUDIOLOGY/AUGER MACHINE OFFBEARER Cosigned: 04/29/2024 14:12 05/07/2024 ADDENDUM STATUS: COMPLETED L&R hearing aids and earmolds received and certified. Per [employer] customer service a larger vent was able to be made on the right aid, the left did not have enough room at the tip of the canal. Also, replacement devices with new serial numbers were given and the customer project manager was unsure why. New serial numbers: [id number]. Left a voicemail for the to contact the clinic. Need to schedule 30 min HAC with an Hi Lift Operator. /kristen/ CHANA DOBBS Audiology Health Estate Planning Attorney Signed: 05/07/2024 14:39 /kristen/ ANAIS Rodriguez CCC-A CHIEF, AUDIOLOGY/AUGER MACHINE OFFBEARER Cosigned: 05/07/2024 14:55 05/19/2024 ADDENDUM STATUS: COMPLETED Appointment scheduled on 05/20/2024. Hearing aids placed in [facility]overn cabinet. /rochelle DOBBS Audiology Health Estate Planning Attorney Signed: 05/19/2024 08:07 /kristen/ ZACK NEIL, CCC-A STAFF PIPELINE WELDER Cosigned: 05/19/2024 08:28 CHANA DOBBS [facility]
--- OUTSIDE RECORDS SUMMARY | 2024-06-30 12:42 | XMS_ITS | Encounter Summary ---
Author Name [place] Address [address] [place] [address] Care Team Providers Care Security Shift Manager Name Role Phone LAURENT ROBLES Primary Care [...] PART A Dec 14, 2012 PART A [id number] [phone] GENEVIEVE ARNOLD JR PATIENT MEDICARE (WNR) MEDICARE (M) PART B Dec 14, 2012 PART B [id number] [phone] GENEVIEVE ARNOLD PATIENT MEDICARE PART D (WNR) PRESCRIPT ION PART D Dec 14, 2012 PART D [id number] GENEVIEVE ARNOLD PATIENT [facility] (WNR) MEDICARE ADVANTAGE [facility](W NR) Jul 16, 2022 [id number] GENEVIEVE ARNOLD PATIENT [facility] (WNR) MEDICARE ADVANTAGE [facility] (WNR) Jul 16, 2017 [id number] GENEVIEVE ARNOLD PATIENT Selected Encounter This section includes the information on record at [place] for the Encounter. Date/Time Encounter Type Encounter Description Reason Provider Source Apr 17, 2024 09:55 AM SPECIAL SUPPLIES PHYS/QHP ADMIN PAT ACTIVTIES (MASNONCT) ICD-10-CM J44.9 Chronic obstructive pulmonary disease, unspecified JENNIFER EDGAR IHAmaya Encounter Template Text not used by [place] Assessments - Encounter Diagnoses This section includes the primary and secondary diagnoses documented for the Encounter. Date/Time Primary/Secondary Diagnosis Diagnosis Name Provider Source Apr 17, 2024 09:58 AM PRIMARY Chronic obstructive pulmonary disease, unspecified JENNIFER EDGAR [facility] Plan of Treatment: Future Appointments (+ 6 months) and Future Tests (+/- 45 days) The Plan of Treatment section includes future care activities for the patient from all [place] [facility]. This section includes future appointments and future orders which are active, pending or scheduled. Future Appointments This section includes appointments that were scheduled to occur 6 months from the date of the Encounter, up to a maximum of 20 appointments. The data comes from all [place] treatment facilities. Appointment Date/Time Appointment Type Appointme nt Facility Name Apr 29, 2024 01:00 PM AMBULATORY - REHAB MEDICIN E [facility] May 19, 2024 02:00 PM AMBULATORY - MEDICINE [facility] May 20, 2024 09:00 AM AMBULATORY - REHAB MEDICIN E [facility] Aug 25, 2024 08:30 AM AMBULATORY - MEDICINE [facility] Active, Pending, and Scheduled Orders This section includes a listing of several types of active, pending, and scheduled orders, including clinic medications orders, diagnostic test orders, procedure orders and consult orders; where the start date of the order is 45 days before the date of the Encounter or 45 days after the date of theEncounter. The data comes from all [place] treatment facilities. Test Date/Time Test Type Test Details Facility Name Apr 17, 2024 08:33 AM Consult Order COMMUNITY CARE-PULMONARY Cons Teen Counselor's Choice [facility] Social History: Smoking Status (Most current) and Tobacco Use (All prior to encounter date) This section includes the most current, and the historical, smoking and tobacco- related health factors from the [place] facility where the Encounter took place. Current Smoking Status This section includes the most current smoking, or tobacco-related health factor, from the [place] facility where the Encounter took place. Date/Time Current Smoking Status Comment Adria ity Apr 11, 2024 09:30 AM VA-TOBACCO FORMER USER [facility] [place] [facility] Tobacco Use History This section includes a history of the smoking, or tobacco-related health factors, that were collected on or before the date of the Encounter. The data comes from the [place] facility where the Encounter took place. Date/Time Smoking Status/Tobacco Use Comment F acility Apr 11, 2024 09:30 AM VA-TOBACCO QUIT 5 TO < 15 YRS [facility] [place] [facility] Apr 09, 2023 09:00 AM VA-TOBACCO FORMER USER [facility] [place] [facility] Apr 09, 2023 09:00 AM VA-TOBACCO QUIT 5 TO < 15 YRS [facility] [place] [facility] Apr 13, 2022 09:30 AM VA-TOBACCO FORMER USER [facility] [place] [facility] Apr 13, 2022 09:30 AM VA-TOBACCO QUIT 5 TO < 15 YRS [facility] [place] [facility] Apr 12, 2021 11:30 AM VA-TOBACCO FORMER USER [facility] [place] [facility] Apr 12, 2021 11:30 AM VA-TOBACCO QUIT 5 TO < 15 YRS [facility] [place] [facility] Mar 19, 2020 09:00 AM VA-TOBACCO FORMER USER [facility] [place] [facility] Mar 19, 2020 09:00 AM VA-TOBACCO QUIT 5 TO < 15 YRS [facility] [place] [facility] December 12, 2018 10:18 AM VA-TOBACCO FORMER USER [facility] [place] [facility] December 12, 2018 10:18 AM VA-TOBACCO QUIT 5 TO < 15 YRS [facility] [place] [facility] Jan 21, 2018 07:50 AM QUIT TOBACCO USE > 7 YEARS AGO [facility] [place] [facility] Dec 25, 2016 10:59 AM QUIT TOBACCO USE > 7 YEARS AGO [facility] Advance Directives: All historical and current Section Date Range: From patient's date of to the date document was created. This section includes ALL of a patient's completed or amended [place] Advance and Rescinded Directives. The entries below indicate that a directive exists for the patient, but an actual copy is not included with this document. The data comes from all [place] facilities. Date Advance Directives Provider Source May 23, 2015 ADVANCE DIRECTIVE AMBER PENA [facility] Encounter Notes: All associated encounter notes [...] RESPIRATORY THERAPIST Signed: 04/17/2024 11:30 JENNIFER EDGAR [facility]
--- OUTSIDE RECORDS SUMMARY | 2024-06-30 12:42 | XMS_ITS | Encounter Summary ---
Author Name [facility] [place] Address [address] [place] [address] Care Team Providers Care Hand Box Folder Name Role Phone LAURENT ROBLES Primary Care [...] PART A Dec 14, 2012 PART A [id number] GENEVIEVE ARNOLD JR PATIENT MEDICARE (WNR) MEDICARE (M) PART B Dec 14, 2012 PART B [id number] GENEVIEVE ARNOLD PATIENT MEDICARE PART D (WNR) PRESCRIPT ION PART D Dec 14, 2012 PART D [id number] GENEVIEVE ARNOLD PATIENT [facility] (WNR) MEDICARE ADVANTAGE [facility](W NR) Jul 16, 2022 [id number] GENEVIEVE ARNOLD PATIENT [facility] (WNR) MEDICARE ADVANTAGE [facility] (WNR) Jul 16, 2017 [id number] GENEVIEVE ARNOLD PATIENT Selected Encounter This section includes the information on record at [place] for the Encounter. Date/Time Encounter Type Encounter Description Reason Pro vider Source Apr 22, 2024 11:44 AM Outpatient Encounter ADMIN PAT ACTIVTIES (MASNONCT) IHE Encounter Template Text not used by [place] Plan of Treatment: Future Appointments (+ 6 months) and Future Tests (+/- 45 days) The Plan of Treatment section includes future care activities for the patient from all [place] treatmentfacilities. This section includes future appointments and future orders which are active, pending or scheduled. Future Appointments This section includes appointments that were scheduled to occur 6 months from the date of the Encounter, up to a maximum of 20 appointments. The data comes from all [place] treatment facilities. Appointment Date/Time Appointment Type Appointme nt Facility Name Apr 29, 2024 01:00 PM AMBULATORY - REHAB MEDICIN E [place] [facility] [place] [facility] May 19, 2024 02:00 PM AMBULATORY - [facility] May 20, 2024 09:00 AM AMBULATORY - REHAB MEDICIN E [place] [facility] [place] [facility] Aug 25, 2024 08:30 AM AMBULATORY [...] of theEncounter. The data comes from all [place] treatment facilities. Test Date/Time Test Type Test Details Facility Name Apr 17, 2024 08:33 AM Consult Order COMMUNITY CARE-PULMONARY Cons Outreach Clinician's Choice [facility] Social History: Smoking Status (Most current) and Tobacco Use (All prior to encounter date) This section includes the most current, and the historical, smoking and tobacco- related health factors from the [place] facility where the Encounter took place. Current Smoking Status This section includes the most current smoking, or tobacco-related health factor, from the [place] facility where the Encounter took place. Date/Time Current Smoking Status Comment Adria childress Apr 11, 2024 09:30 AM VA-TOBACCO FORMER USER [place] [facility] [place] [facility] Tobacco Use History This section includes a history of the smoking, or tobacco-related health factors, that were collected on or before the date of the Encounter. The data comes from the [place] facility where the Encounter took place. Date/Time Smoking Status/Tobacco Use Comment F acility Apr 11, 2024 09:30 AM VA-TOBACCO QUIT 5 TO < 15 YRS [facility] [place] [facility] Apr 09, 2023 09:00 AM VA-TOBACCO FORMER USER [facility] [place] [facility] Apr 09, 2023 09:00 AM VA-TOBACCO QUIT 5 TO < 15 YRS [facility] [place] [facility] Apr 13, 2022 09:30 AM VA-TOBACCO FORMER USER [facility] [place] [facility] Apr 13, 2022 09:30 AM VA-TOBACCO QUIT 5 TO < 15 YRS [facility] [place] [facility] Apr 12, 2021 11:30 AM VA-TOBACCO FORMER USER [facility] [place] [facility] Apr 12, 2021 11:30 AM VA-TOBACCO QUIT 5 TO < 15 YRS [place] [facility] [place] [facility] Mar 19, 2020 09:00 AM VA-TOBACCO FORMER USER [place] [facility] [place] [facility] Mar 19, 2020 09:00 AM VA-TOBACCO QUIT 5 TO < 15 YRS [place] [facility] [place] [facility] December 12, 2018 10:18 AM VA-TOBACCO FORMER USER [place] [facility] [place] [facility] December 12, 2018 10:18 AM VA-TOBACCO QUIT 5 TO < 15 YRS [place] [facility] [place] [facility] Jan 21, 2018 07:50 AM QUIT TOBACCO USE > 7 YEARS AGO [place] [facility] [place] [facility] Dec 25, 2016 10:59 AM QUIT TOBACCO USE > 7 YEARS AGO [place] [facility] [place] [facility] Advance Directives: All historical and current Section Date Range: From patient's date of to the date document was created. This section includes ALL of a patient's completed or amended [place] Advance and Rescinded Directives. The entries below indicate that a directive exists for the patient, but an actual copy is not included with this document. The data comes from all [place] facilities. 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 Please do not alert the staff member by adding them as a signer for future communications. Alerts are not monitored by this user. /rochelle VANESSA VISN 1 CCC AMSA Signed: 04/22/2024 11:44 Receipt Acknowledged By: 04/24/2024 15:52 /kristen/ RAMYA BILLY Advanced Surgical Garment Fitter 04/22/2024 11:49 /kristen/ Jaquelin Gillis RN Primary Care Staff Nurse 04/24/2024 ADDENDUM STATUS: COMPLETED PCP will give form to mail when filled out. /rochelle BILLY Advanced Surgical Garment Fitter Signed: 04/24/2024 15:51 KIM [facility]SA [facility] [place] [facility]
--- OUTSIDE RECORDS SUMMARY | 2024-06-30 12:42 | XMS_ITS | Encounter Summary ---
Author Name Department [place] Organization [place] Address [address] [place] [id number] Care Team Providers Care Cocoa Press Operator Name Role Phone LAURENT ROBLES Primary [...] PART A Dec 14, 2012 PART A [id number] GENEVIEVE ARNOLD JR PATIENT MEDICARE (WNR) MEDICARE (M) PART B Dec 14, 2012 PART B [id number] GENEVIEVE ARNOLD PATIENT MEDICARE PART D (WNR) PRESCRIPT ION PART D Dec 14, 2012 PART D [id number] GENEVIEVE ARNOLD PATIENT [facility] (WNR) MEDICARE ADVANTAGE [facility](W NR) Jul 16, 2022 [id number] GENEVIEVE ARNOLD PATIENT [facility] (WNR) MEDICARE ADVANTAGE [facility] (WNR) Jul 16, 2017 [id number] [phone] GENEVIEVE ARNOLD PATIENT Selected Encounter This [...] 23, 2015 [facility]ANCE DIRECTIVE [facility]
--- OUTSIDE RECORDS SUMMARY | 2024-06-30 12:42 | XMS_ITS ---
Author Name Department [place] Address [address] [place] [address] Care Team Providers Care Steel Tier Name Role Phone LAURENT ROBLES Primary Care [...] PART A Dec 14, 2012 PART A [id number] [phone] GENEVIEVE ARNOLD JR PATIENT MEDICARE (WNR) MEDICARE (M) PART B Dec 14, 2012 PART B [id number] GENEVIEVE ARNOLD PATIENT MEDICARE PART D (WNR) PRESCRIPT ION PART D Dec 14, 2012 PART D [id number] GENEVIEVE ARNOLD PATIENT [facility] (WNR) MEDICARE ADVANTAGE [facility](W NR) Jul 16, 2022 [id number] GENEVIEVE ARNOLD PATIENT [facility] (WNR) MEDICARE ADVANTAGE [facility] (WNR) Jul 16, 2017 [id number] GENEVIEVE ARNOLD PATIENT Selected Encounter This section includes the information on record at [place] for the Encounter. Date/Time Encounter Type Encounter Description Reason Provider Source Apr 11, 2024 11:00 AM HEARING SERVICE AUDIOLOGY ICD-10-CM Z46.1 Encounter for fitting and adjustment of hearing aid DORIS PITTS [facility] Encounter Template Text not used by [place] Assessments - Encounter Diagnoses This section includes the primary and secondary diagnoses documented for the Encounter. Date/Time Primary/Secondary Diagnosis Diagnosis Name Provider Source Apr 11, 2024 11:34 AM PRIMARY Encounter for fitting and adjustment of hearing aid [facility]ER P[facility]TS [facility] Apr 11, 2024 11:34 AM SECONDARY Sensorineural hearing loss, bilateral JASMEETSREEDHARROYER [facility] Plan of Treatment: Future Appointments (+ 6 months) and Future Tests (+/- 45 days) The Plan of Treatment section includes future care activities for the patient from all [place] [facility]. This section includes future appointments [...] 01:00 PM AMBULATORY - [facility] [place] [facility] May 19, 2024 02:00 PM [facility] May 20, 2024 09:00 AM AMBULATORY - [facility] [place] [facility] Aug 25, 2024 08:30 AM AMBULATORY - MEDICINE [facility] Active, Pending, and Scheduled Orders This section includes a listing of several types of active, pending, and scheduled orders, including clinic medications orders, diagnostic test orders, procedure orders and consult orders; where the start date of the order is 45 days before the date of the Encounter or 45 days after the date of theEncounter. The data comes from all [place] treatment [facility]. Test Date/Time Test Type Test Details Facility Name Apr 17, 2024 08:33 AM Consult Order COMMUNITY CARE-PULMONARY Cons Fundraising Coordinator's Choice [facility] [place] [facility] Vital Signs: All taken on the encounter date This section contains inpatient and outpatient Vital Signs collected on the date of the Encounter. Date/Time Temperature Pulse Blood Pressure Respiratory Rate SP02 Pain Height Weight Body Mass Index Source Apr 11, 2024 09:48 AM 97.5 68 125/80 16 94 1 208.2 34 [facility] [place] [facility] Social History: Smoking Status (Most [...] 11, 2024 09:30 AM VA-TOBACCO FORMER USER [place] [facility] [place] [facility] Tobacco Use History This section includes a history of the smoking, or tobacco-related health factors, that were collected on or before the date of the Encounter. The data comes from the [place] facility where the Encounter took place. Date/Time Smoking Status/Tobacco Use Comment F acility Apr 11, 2024 09:30 AM VA-TOBACCO QUIT 5 TO < 15 YRS [facility] [place] [facility] Apr 09, 2023 09:00 AM VA-TOBACCO FORMER USER [facility] [place] [facility] Apr 09, 2023 09:00 AM VA-TOBACCO QUIT 5 TO < 15 YRS [facility] [place] [facility] Apr 13, 2022 09:30 AM VA-TOBACCO FORMER USER [facility] [place] [facility] Apr 13, 2022 09:30 AM VA-TOBACCO QUIT 5 TO < 15 YRS [facility] [place] [facility] Apr 12, 2021 11:30 AM VA-TOBACCO FORMER USER [facility] [place] [facility] Apr 12, 2021 11:30 AM VA-TOBACCO QUIT 5 TO < 15 YRS [facility] [place] [facility] Mar 19, 2020 09:00 AM VA-TOBACCO FORMER USER [facility] [place] [facility] Mar 19, 2020 09:00 AM VA-TOBACCO QUIT 5 TO < 15 YRS [facility] December 12, 2018 10:18 AM [facility]ACCO [facility] December 12, 2018 10:18 AM VA-TOBACCO QUIT 5 TO < 15 YRS [facility] Jan 21, 2018 07:50 AM QUIT TOBACCO USE > 7 YEARS AGO [facility] Dec 25, 2016 10:59 AM QUIT TOBACCO USE > 7 YEARS AGO [facility] Advance Directives: All historical and current Section Date Range: From patient's date of to the date document was created. This section includes ALL of a patient's completed or amended [place] Advance and Rescinded Directives. The entries below indicate that a directive exists for the patient, but an actual copy is not included with this document. The data comes from all [place] facilities. Date Advance Directives Provider Source May 23, 2015 ADVANCE DIRECTIVE AMBER PENA [facility] Encounter Notes: All associated encounter notes [...] Does the patient/client have any cultural and zoroastrianism beliefs, emotional barriers, physical or cognitive limitations, and communication barriers which may impact his/her ability to learn? No Desire and motivation to learn? Good OBJECTIVE (O): Physical fit of earmolds/receivers and domes/hearing aids was good. verified comfort. Verification of an appropriate acoustic response was obtained using Real Ear measurements (speech mapping) and NAL-NL1 targets. The reported good subjective benefit as well. Feedback manager of pharmacy was run. Hearing aids were found to [...] Earmold Information: Canal lock microshell, clear, acrylic Diesel Dinkey Operator size/power: Length 2 100 gain receivers Program [...] The was informed of and signed/agreed to [place] policy on hearing aid issuance: Users are responsible for the maintenance and security of their devices. Determination of need to replace a hearing aid is made by the [place] laundry room attendant. Hearing aids will not be replaced in [...] provided to: P Response to Education: FERNANDO ROMERO, PI Fishman Patient P Family F Significant Other SO Verbalizes Understanding VU Returns Demonstration RD Performs Independently PI Lacks Comprehension LC Refused Education RE Not Applicable NA /kristen/ Tomás Strange, CCC-A Supervisor Cook House Signed: 04/11/2024 11:34 06/05/2024 ADDENDUM STATUS: COMPLETED Oelrichs returned IOI-GOODRICH Outcome Measure to the clinic via mail with an overall score of 26 Based on this score: i. No follow-up call is indicated _XX_ ii. Follow-up call is indicated and fitting clinician will be notified __ /es/ CHANA DOBBS [facility] Grease Man Signed: 06/05/2024 11:33 DORIS PITTS [facility] [place] [facility]
--- OUTSIDE RECORDS SUMMARY | 2024-06-30 12:42 | XMS_ITS ---
Author Name Department [place] Organization [facility] Address [address] [place] [address] Care Team Providers Care Motorcycle Riding Instructor Name Role Phone LAURENT ROBLES Primary Care [...] PART A Dec 14, 2012 PART A [id number] [phone] GENEVIEVE ARNOLD JR PATIENT MEDICARE (WNR) MEDICARE (M) PART B Dec 14, 2012 PART B [id number] GENEVIEVE ARNOLD PATIENT MEDICARE PART D (WNR) PRESCRIPT ION PART D Dec 14, 2012 PART D [id number] GENEVIEVE ARNOLD PATIENT [facility] (WNR) MEDICARE ADVANTAGE [facility](W NR) Jul 16, 2022 [id number] GENEVIEVE ARNOLD PATIENT [facility] (WNR) MEDICARE ADVANTAGE [facility] (WNR) Jul 16, 2017 [id number] [phone] GENEVIEVE ARNOLD PATIENT Selected Encounter This section includes the information on record at [place] for the Encounter. Date/Time Encounter Type Encounter Description Reason Pro vider Source Feb 08, 2024 12:00 AM Outpatient Encounter GENERAL INTERNAL MEDICINE IHE Encounter Template Text not used by [place] Plan of Treatment: Future Appointments (+ 6 months) and Future Tests (+/- 45 days) The Plan of Treatment section includes future care activities for the patient from all [place] treatmentfacilities. This section includes future appointments and future orders which are active, pending or scheduled. Future Appointments This section includes appointments that were scheduled to occur 6 months from the date of the Encounter, up to a maximum of 20 appointments. The data comes from all [place] treatment facilities. Appointment Date/Time Appointment Type Appointme nt Facility Name Mar 10, 2024 11:00 AM AMBULATORY - REHAB MEDICIN E [place] [facility] Apr 11, 2024 09:30 AM AMBULATORY - MEDICINE [place] [facility] Apr 11, 2024 11:00 AM AMBULATORY - REHAB MEDICIN E [place] [facility] Apr 29, 2024 01:00 PM AMBULATORY - REHAB MEDICIN E [place] [facility] May 19, 2024 02:00 PM AMBULATORY - MEDICINE [facility] [place] [facility] May 20, 2024 09:00 AM AMBULATORY - [facility] [place] [facility] Advance Directives: All historical and current Section Date Range: From patient's date of to the date document was created. This section includes ALL of a patient's completed or amended [place] Advance and Rescinded Directives. The entries below indicate that a directive exists for the patient, but an actual copy is not included with this document. The data comes from all [facility]. Date Advance Directives Provider Source May 23, 2015 ADVANCE DIRECTIVE AMBER PNEA [facility] [place] [facility] Encounter Notes: All associated encounter notes This [...] REQUIRED Electronically Filed: 02/11/2024 by: HONORIO PETIT IT APPLICATION ARCHITECTHONORIO GARCIA [facility]
--- OUTSIDE RECORDS SUMMARY | 2024-06-30 12:42 | XMS_ITS | Encounter Summary ---
Author Name [facility] [place] [facility] [place] Address [address] [place] [address] Care Team Providers Care Case Management Specialist Name Role Phone LAURENT ROBLES Primary [...] PART A Dec 14, 2012 PART A [id number] GENEVIEVE ARNOLD JR PATIENT MEDICARE (WNR) MEDICARE (M) PART B Dec 14, 2012 PART B [id number] GENEVIEVE ARNOLD PATIENT MEDICARE PART D (WNR) PRESCRIPT ION PART D Dec 14, 2012 PART D [id number] GENEVIEVE ARNOLD PATIENT [facility] (WNR) MEDICARE ADVANTAGE MCR(W NR) Jul 16, 2022 [id number] GENEVIEVE ARNOLD PATIENT [facility] (WNR) MEDICARE ADVANTAGE MCR (WNR) Jul 16, 2017 [id number] GENEVIEVE ARNOLD PATIENT Selected Encounter This section includes the information on record at [place] for the Encounter. Date/Time Encounter Type Encounter Description Reason Provider Source Mar 10, 2024 11:00 AM HEARING AID REPAIR/MODIFYIN G AUDIOLOGY ICD-10-CM H90.3 Sensorineural hearing loss, bilateral BONCZEK,ROYER N L IHE Encounter Template Text not used by CT Assessments - Encounter Diagnoses This section includes the primary and secondary diagnoses documented for the Encounter. Date/Time Primary/Secondary Diagnosis Diagnosis Name Provider Source Mar 10, 2024 11:46 AM PRIMARY Sensorineural hearing loss, bilateral BONCZEK,ROYER N L [place] [facility] [place] [facility] Mar 10, 2024 11:46 AM SECONDARY Tinnitus, bilateral BONCZEK,ROYER N L [place] [facility] [place] [facility] Plan of Treatment: Future Appointments (+ 6 months) and Future Tests (+/- 45 days) The Plan of Treatment section includes future care activities for the patient [facility] This section includes future appointments and future orders which are active, pending or scheduled. Future Appointments This section includes appointments that were scheduled to occur 6 months from the date of the Encounter, up to a maximum of 20 appointments. The data comes from all [place] treatment facilities. Appointment Date/Time Appointment Type Appointme nt Facility Name Apr 11, 2024 09:30 AM AMBULATORY - MEDICINE [facility] [place] [facility] Apr 11, 2024 11:00 AM AMBULATORY - REHAB MEDICIN E [place] [facility] [place] [facility] Apr 29, 2024 01:00 PM [facility]UL[facility] [place] [facility] May 19, 2024 02:00 PM AMBULATORY - MEDICINE [facility] [facility] May 20, 2024 09:00 AM AMBULATORY - REHAB MEDICIN E [place] [facility] [place] [facility] Aug 25, 2024 08:30 AM AMBULATORY - [...] of theEncounter. The data comes from all CT treatment facilities. Test Date/Time Test Type Test Details Facility Name Apr 17, 2024 08:33 AM Consult Order COMMUNITY CARE-PULMONARY Cons Clinic Lpn's Choice [facility] [place] [facility] Social History: Smoking Status (Most current) and Tobacco Use (All prior to encounter date) This section includes the most current, and the historical, smoking and tobacco- related health factors from the [place] facility where the Encounter took place. Current Smoking Status This section includes the most current smoking, or tobacco-related health factor, from the [place] facility where the Encounter took place. Date/Time Current Smoking Status Comment Facil ity Apr 09, 2023 09:00 AM VA-TOBACCO FORMER USER CT [facility] [place] [facility] Tobacco Use History This section includes a history of the smoking, or tobacco-related health factors, that were collected on or before the date of the Encounter. The data comes from the [place] facility where the Encounter took place. Date/Time Smoking Status/Tobacco Use Comment F acility Apr 09, 2023 09:00 AM VA-TOBACCO QUIT 5 TO < 15 YRS [facility] [place] [facility] Apr 13, 2022 09:30 AM VA-TOBACCO FORMER USER [facility] [place] [facility] Apr 13, 2022 09:30 AM VA-TOBACCO QUIT 5 TO < 15 YRS [facility] [place] [facility] Apr 12, 2021 11:30 AM VA-TOBACCO FORMER USER [facility] [place] [facility] Apr 12, 2021 11:30 AM VA-TOBACCO QUIT 5 TO < 15 YRS [facility] [place] [facility] Mar 19, 2020 09:00 AM VA-TOBACCO FORMER USER [facility] [place] [facility] Mar 19, 2020 09:00 AM VA-TOBACCO QUIT 5 TO < 15 YRS [facility] [place] [facility] December 12, 2018 10:18 AM VA-TOBACCO FORMER USER [facility] [place] [facility] December 12, 2018 10:18 AM VA-TOBACCO QUIT 5 TO < 15 YRS [facility] [place] [facility] Jan 21, 2018 07:50 AM QUIT TOBACCO USE > 7 YEARS AGO [facility] Dec 25, 2016 10:59 AM QUIT TOBACCO USE > 7 YEARS AGO [facility] Advance Directives: All historical and current Section Date Range: From patient's date of to the date document was created. This section includes ALL of a patient's completed or amended CT Advance and Rescinded Directives. The entries below indicate that a directive exists for the patient, but an actual copy is not included with this document. The data comes from all CT facilities. Date Advance Directives Provider Source May [...] He reports intermittent tinnitus in both ears. Steens reports he had an episode of vertigo [...] mini [facility] hearing aids will be ordered. Steens is scheduled for a hearing aid fitting appointment on 04/11/24 at 11am. RTC placed. /kristen/ Tomás Strange, CCC-A Hull Molder Signed: 03/10/2024 12:51 03/26/2024 ADDENDUM STATUS: COMPLETED Hearing aids received and certified, upcoming appointment scheduled on 04/11/2024. /kristen/ CHANA KITCHENDEAlex Audiology Health Quality Assurance Engineer Signed: 03/26/2024 11:[address] [facility]
--- OUTSIDE RECORDS SUMMARY | 2024-06-30 12:42 | XMS_ITS ---
Author Name [facility] [place] Address [address] [place] [address] Care Team Providers Care Engineering Secretary Name Role Phone LAURENT ROBLES Primary Care [...] PART A Dec 14, 2012 PART A [id number] GENEVIEVE ARNOLD JR PATIENT MEDICARE (WNR) MEDICARE (M) PART B Dec 14, 2012 PART B [id number] GENEVIEVE ARNOLD PATIENT MEDICARE PART D (WNR) PRESCRIPT ION PART D Dec 14, 2012 PART D [id number] GENEVIEVE ARNOLD PATIENT [facility] (WNR) MEDICARE ADVANTAGE [facility](W NR) Jul 16, 2022 [id number] GENEVIEVE ARNOLD PATIENT [facility] (WNR) MEDICARE ADVANTAGE [facility] (WNR) Jul 16, 2017 [id number] GENEVIEVE ARNOLD PATIENT Selected Encounter This section includes the information on record at [place] for the Encounter. Date/Time Encounter Type Encounter Description Reason Pro vider Source Apr 18, 2024 09:21 AM Outpatient Encounter PRIMARY CARE/MEDICINE IHE Encounter Template Text not used by [place] Plan of Treatment: Future Appointments (+ 6 months) and Future Tests (+/- 45 days) The Plan of Treatment section includes future care activities for the patient from all [place] treatmentfacilities. This section includes future appointments and future orders which are active, pending or scheduled. Future Appointments This section includes appointments that were scheduled to occur 6 months from the date of the Encounter, up to a maximum of 20 appointments. The data comes from all [place] treatment facilities. Appointment Date/Time Appointment Type Appointme nt Facility Name Apr 29, 2024 01:00 PM AMBULATORY - [place] [facility] May 19, 2024 02:00 PM AMBULATORY - MEDICINE [facility] [place] [facility] May 20, 2024 09:00 AM AMBULATORY - [place] [facility] Aug 25, 2024 08:30 AM AMBULATORY - MEDICINE [facility] Active, Pending, and Scheduled Orders This section includes a listing of several types of active, pending, and scheduled orders, including clinic medications orders, diagnostic test orders, procedure orders and consult orders; where the start date of the order is 45 days before the date of the Encounter or 45 days after the date of theEncounter. The data comes from all [place] treatment facilities. Test Date/Time Test Type Test Details Facility Name Apr 17, 2024 08:33 AM Consult Order COMMUNITY CARE-[facility]ULMONARY Cons Systems [facility] [place] [facility] Social History: Smoking Status (Most current) and Tobacco Use (All prior to encounter date) This section includes the most current, and the historical, smoking and tobacco- related health factors from the [place] facility where the Encounter took place. Current Smoking Status This section includes the most current smoking, or tobacco-related health factor, from the [place] facility where the Encounter took place. Date/Time Current Smoking Status Minoo childress Apr 11, 2024 09:30 AM VA-TOBACCO [facility] Tobacco Use History This section includes a history of the smoking, or tobacco-related health factors, that were collected on or before the date of the Encounter. The data comes from the [place] facility where the Encounter took place. Date/Time Smoking Status/Tobacco Use Comment F acility Apr 11, 2024 09:30 AM VA-TOBACCO QUIT 5 TO < 15 YRS [place] [facility] [place] [facility] Apr 09, 2023 09:00 AM VA-TOBACCO FORMER USER [place] [facility] [place] [facility] Apr 09, 2023 09:00 AM VA-TOBACCO QUIT 5 TO < 15 YRS [place] [facility] [place] [facility] Apr 13, 2022 09:30 AM VA-TOBACCO FORMER USER [place] [facility] Apr 13, 2022 09:30 AM VA-TOBACCO QUIT 5 TO < 15 YRS [place] [facility] [place] [facility] Apr 12, 2021 11:30 AM VA-TOBACCO FORMER USER [place] [place] [facility] Apr 12, 2021 11:30 AM VA-TOBACCO QUIT 5 TO < 15 YRS [place] [facility] [place] [facility] Mar 19, 2020 09:00 AM VA-TOBACCO FORMER USER [place] [facility] Mar 19, 2020 09:00 AM VA-TOBACCO QUIT 5 TO < 15 YRS [place] [facility] [place] [facility] December 12, 2018 10:18 AM VA-TOBACCO FORMER USER [place] [facility] December 12, 2018 10:18 AM VA-TOBACCO QUIT 5 TO < 15 YRS [place] [facility] [place] [facility] Jan 21, 2018 07:50 AM QUIT TOBACCO USE > 7 YEARS AGO [place] [facility] [place] [facility] Dec 25, 2016 10:59 AM QUIT TOBACCO USE > 7 YEARS AGO [place] [facility] Advance Directives: All historical and current Section Date Range: From patient's date of to the date document was created. This section includes ALL of a patient's completed or amended [place] Advance and Rescinded Directives. The entries below indicate that a directive exists for the patient, but an actual copy is not included with this document. The data comes from all [place] facilities. 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 PCP of Record: PERCY BULLOCK Next visit with PCP: 04/22/2024 13:30 CWM NO AUDIO MAINT 01/13/2025 11:00 CWM/NO/PACT 5 Primary Care May keep copies of this document for up to 14 days and send the original for scanning. /kristen/ JAYA DARDEN AMSA Signed: 04/18/2024 09:23 JAYA DARDEN [facility]
--- OUTSIDE RECORDS SUMMARY | 2024-06-30 12:42 | XMS_ITS | Encounter Summary ---
Author Name [facility] [place] Organization [place] Address [address] [place] [address] Care Team Providers Care Clinical Trial Data Manager Name Role Phone LAURENT ROBLES Primary [...] PART A Dec 14, 2012 PART A [id number] GENEVIEVE ARNOLD JR PATIENT MEDICARE (WNR) MEDICARE (M) PART B Dec 14, 2012 PART B [id number] GENEVIEVE ARNOLD PATIENT MEDICARE PART D (WNR) PRESCRIPT ION PART D Dec 14, 2012 PART D [id number] GENEVIEVE ARNOLD PATIENT [facility] (WNR) MEDICARE ADVANTAGE MCR(W NR) Jul 16, 2022 [id number] GENEVIEVE ARNOLD PATIENT [facility] (WNR) MEDICARE ADVANTAGE [facility] (WNR) Jul 16, 2017 [id number] GENEVIEVE ARNOLD PATIENT Selected Encounter This section includes the information on record at [place] for the Encounter. Date/Time Encounter Type Encounter Description Reason Pro vider Source Feb 08, 2024 11:40 AM Outpatient Encounter ADMIN PAT ACTIVTIES (MASNONCT) IHE Encounter Template Text not used by [place] Plan of Treatment: Future Appointments (+ 6 months) and Future Tests (+/- 45 days) The Plan of Treatment section includes [facility] care activities for the [facility] [place] [facility] This section includes future appointments [...] 11:00 AM AMBULATORY - REHAB MEDICIN E [place] [facility] Apr 11, 2024 09:30 AM AMBULATORY - MEDICINE [place] [facility] Apr 11, 2024 11:00 AM AMBULATORY - REHAB MEDICIN E [place] [facility] Apr 29, 2024 01:00 PM AMBULATORY - REHAB MEDICIN E [place] [facility] May 19, 2024 02:00 PM AMBULATORY - MEDICINE [place] [facility] May 20, 2024 09:00 AM [facility] Advance Directives: All historical and current Section Date Range: From patient's date of to the date document was created. This section includes ALL of a patient's completed or amended [place] Advance and Rescinded Directives. The entries below indicate that a directive exists for the patient, but an actual copy is not included with this document. The data comes from all [place] facilities. Date Advance Directives Provider Source May 23, 2015 [facility]ANCE [facility] Encounter Notes: All associated encounter notes This [...] of Contact: Fax Centralized Call Center Notified [facility] Name: Hospital: [place] [address] [place] State: [place] Zip Code: [address] Community Facility Point of Contact: Name: Phone: Chief complaint: ELEVATED LIVER FUNCTION TESTS Primary Diagnosis: Disposition Admitted Route of Admission: ER Date of Admission: Jan Admitting Diagnosis: ELEVATED LIVER FUNCTION TESTS [facility] Provider: Nicolasa Level of Care: [id number] Clinical Review 02/07/2024 11:30 AM EDT /es/ MACK MCKEON ADVANCED MSA Signed: 02/08/2024 11:47 Receipt Acknowledged By: 02/19/2024 08:47 /kristen/ MARLON RAMIRES REGISTERED NURSE 02/08/2024 ADDENDUM STATUS: COMPLETED [place] for travel, 100% [place], no insurance listed on file. Call placed to [facility], [address] [place] [address] @[phone]. Call transferred to DAVE Roman who states that does not want transfer to [facility]. PTC to fax Refusal to Transfer to [phone]. File closed /kristen/ MARLON RAMIRES REGISTERED NURSE Signed: 02/08/2024 12:36 MACK MCKEON [facility]
--- OUTSIDE RECORDS SUMMARY | 2024-06-30 12:42 | XMS_ITS | Encounter Summary ---
Author Name [facility] [place] [facility] [place] [facility] [place] Address [address] [place] [address] Care Team Providers Care Chief Writer Name Role Phone LAURENT ROBLES Primary Care [...] PART A Dec 14, 2012 PART A [id number] GENEVIEVE ARNOLD JR PATIENT MEDICARE (WNR) MEDICARE (M) PART B Dec 14, 2012 PART B [id number] GENEVIEVE ARNOLD PATIENT MEDICARE PART D (WNR) PRESCRIPT ION PART D Dec 14, 2012 PART D [id number] GENEVIEVE ARNOLD PATIENT [facility] (WNR) MEDICARE ADVANTAGE MCR(W NR) Jul 16, 2022 [id number] GENEVIEVE ARNOLD PATIENT [facility] (WNR) MEDICARE ADVANTAGE MCR (WNR) Jul 16, 2017 [id number] GENEVIEVE ARNOLD PATIENT Selected Encounter This section includes the information on record at [place] for the Encounter. Date/Time Encounter Type Encounter Description Reason Provider Source Apr 11, 2024 09:30 AM OFFICE O/P EST MOD 30 MIN PRIMARY CARE/MEDICINE ICD-10-CM I48.91 Unspecified atrial fibrillation ARARITA CROWE E Encounter Template Text not used by [place] Assessments - Encounter Diagnoses This section includes the primary and secondary diagnoses documented for the Encounter. Date/Time Primary/Secondary Diagnosis Diagnosis Name Provider Source Apr 11, 2024 01:05 PM PRIMARY Unspecified atrial fibrillation ARARITA [place] [facility] [place] [facility] Apr 11, 2024 01:05 PM SECONDARY Chronic obstructive pulmonary disease, unspecified ARARITA CROWE [place] [facility] [place] [facility] Apr 11, 2024 01:05 PM SECONDARY Contact with and exposure to other hazardous substances ARARITA [place] [facility] [place] [facility] Apr 11, 2024 01:05 PM SECONDARY Encounter for immunization OLAMIDE CAR [place] [facility] [place] [facility] Apr 11, 2024 01:05 PM SECONDARY Gastro-esophageal reflux disease without esophagitis ARARITA CROWE [place] [facility] [place] [facility] Apr 11, 2024 01:05 PM SECONDARY Other seasonal allergic rhinitis ARARITA CROWE [place] [facility] [place] [facility] Apr 11, 2024 01:05 PM SECONDARY Sleep apnea, unspecified ARA,RITA TRAYLOR [place] [facility] [place] [facility] Plan of Treatment: Future Appointments (+ 6 months) and Future Tests (+/- 45 days) The Plan of Treatment section includes future care activities for the patient from all [place] treatmentfacilities. This section includes future appointments and [...] REHAB MEDICIN E [facility] [place] [facility] May 19, 2024 02:00 PM [facility] May 20, 2024 09:00 AM [facility] Aug 25, 2024 08:30 AM AMBULATORY [...] 08:33 AM Consult Order COMMUNITY CARE-PULMONARY Cons Motorsports Technician's Choice [facility] Vital Signs: All taken on the encounter date This section contains inpatient and outpatient Vital Signs collected on the date of the Encounter. Date/Time Temperature Pulse Blood Pressure Respiratory Rate SP02 Pain Height Weight Body Mass Index Source Apr 11, 2024 09:48 AM 97.5 68 125/80 16 94 1 208.2 34 [facility] Immunizations: All administered on the encounter date This section contains immunizations associated to the Encounter. Immunization Series Date Issued Reaction Comments INFLUENZA, HIGH-DOSE, TRIVALENT, PF Apr 11, 2024 RSV, BIVALENT, PROTEIN SUBUN IT RSVPREF, DILUENT RECONSTITUTED, 0.5 ML, PF Apr 11, 2024 Steril e water diluent Lot #- [id number] 11/2024 Social History: Smoking Status (Most current) [...] 11, 2024 09:30 AM VA-TOBACCO FORMER USER [facility] Tobacco Use History This section includes a history of the smoking, or tobacco-related health factors, that were collected on or before the date of the Encounter. The data comes from the [place] facility where the Encounter took place. Date/Time Smoking Status/Tobacco Use Comment F acility Apr 11, 2024 09:30 AM VA-TOBACCO QUIT 5 TO < 15 YRS [facility] [place] [facility] Apr 09, 2023 09:00 AM VA-TOBACCO FORMER USER [facility] [place] [facility] Apr 09, 2023 09:00 AM VA-TOBACCO QUIT 5 TO < 15 YRS [facility] [place] [facility] Apr 13, 2022 09:30 AM VA-TOBACCO FORMER USER [facility] [place] [facility] Apr 13, 2022 09:30 AM VA-TOBACCO QUIT 5 TO < 15 YRS [facility] [place] [facility] Apr 12, 2021 11:30 AM VA-TOBACCO FORMER USER [facility] [place] [facility] Apr 12, 2021 11:30 AM VA-TOBACCO QUIT 5 TO < 15 YRS [place] [facility] [place] [facility] Mar 19, 2020 09:00 AM VA-TOBACCO FORMER USER [facility] [place] [facility] Mar 19, 2020 09:00 AM VA-TOBACCO QUIT 5 TO < 15 YRS [facility] [place] [facility] December 12, 2018 10:18 AM VA-TOBACCO FORMER USER [facility] [place] [facility] December 12, 2018 10:18 AM VA-TOBACCO QUIT 5 TO < 15 YRS [facility] [place] [facility] Jan 21, 2018 07:50 AM QUIT TOBACCO USE > 7 YEARS AGO [place] [facility] [place] [facility] Dec 25, 2016 10:59 AM QUIT TOBACCO USE > 7 YEARS AGO [place] [facility] [place] [facility] Advance Directives: All historical and [...] 2015 ADVANCE DIRECTIVE AMBER PENA [facility] Encounter Notes: All associated encounter notes [...] distress with breathing His took him to [facility] they did CXR and thought no full blow PNA there was one questionable area so they treated him with IV dexa and sent him home with oral Abx, Tessalon pearls and taper of steroid currently feeling much better he is slated for pulmonary appt with Dr Christie in [place] on 05/20 I will placed CC consult also asking for nebulizer machine for exacerbations I will order he very much appreciated call and Lastly he is looking for handicap placard and will send me the RMV form. /kristen/ KOJO LOREDO Nurse Practitioner Signed: 04/17/2024 08:32 RITA ROSALES [place] [facility] Apr 11, 2024 10:28 AM PRIMARY CARE [...] significant allergy to amoxicillin with hospitalization in [place] due to jaundice reaction. PMH: Active problems [...] of multiple providers DR Corrie BLANTON ( [facility]) - visit 12/11/18 [place] - SEE WEB EDITOR WHEN IN [place] ( JUN THRU NOVEMBER ) NON [place] DERMATOLOGY - NON [place] urologist ( [place] ( [facility]- DR Del Valle / [place] - DR Rangel 9. Sleep apnea PER VISIT 01/21/18 - ANNUAL VISIT (CWM/NO/PACT 8 ) CPAP auto PAP mode 5-15 cm - h20 humidified - air lifetime ( DR BLANTON) - non [place] script 10. Bladder cancer TURB procedures x [...] GOODRICH PHYSI EULOGIO EXAM GENERAL: well appearing [place] in mild respiratory distress, speaking in clear [...] previously prescribed Eliquis, patient follows with community picker tender helper. 3) Sleep apnea Patient continues to use [...] antihistamines for allergic symptoms and eczema. Sees wetlands conservation laborer who recommends Dupixent injections planned for Apr [...] in 6 months, RTC sooner if needed. [place] gave permission to allow a student present for this exam/Encounter. I was present for the ACADEMIC INTERVENTIONIST student's history taking and examination. I independently performed (or re-performed) the history taking, physical examination, and medical decision making as indicated Clinical Reminders Toxic Exposure Screening: The [place]/caregiver was asked if they believe the experienced any toxic exposure(s), such as Airborne Hazards and Open [place], [place] War related exposures, Agent Chualar, Radiation, contaminated water at [place] or other such exposures, while serving in the [employer]. 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 Printed information was offered and provided if desired. [place]/caregiver has no health or medical concerns related to their concern of environmental exposure. No questions at this time /caregiver was informed of local points of contact. Contact information for local resources: Benefits/Claim for Disability Compensation Questions:National VBA [place] Healthcare Enrollment: [facility] Eligibility direct dialed at [phone] Registry: [facility] Coordinator ext [phone] The following connections were provided to the [place]/caregiver: No connections needed at this time Medication [...] whether with a VA or non-VA provider. /kristen/ KOJO LOREDO Nurse Practitioner Signed: 04/11/2024 12:55 for EILEEN LAM RN NURSE PRACTITIONER STUDENT /KOJO Aleman Nurse Practitioner Cosigned: 04/11/2024 12:55 RITA ROSALES [place] [facility] [place] [facility] Apr 11, 2024 09:38 AM PREVENTIVE MEDICINE NURSING NOTE: LOCAL TITLE: CLINICAL REMINDERS/NURSING STANDARD TITLE: PREVENTIVE MEDICINE NURSING NOTE DATE OF NOTE: APR 11, 2024@09:38 ENTRY DATE: APR 11, 2024@09:39:03 AUTHOR: OLAMIDE CAR COSIGNER: URGENCY: STATUS: COMPLETED Advance Directive Screen MH AD: Patient has an Advance Directive on file at this [facility]. No updates are needed at this time. The patient received education about Advance Directives and written notification of his/her rights. Suicide Screen: C-SSRS Screening [place] Suicide Severity Rating Scale (C-SSRS) screener 1. [...] Not worried about housing near future The [place] reports the following: Within the past 12 [...] PF Date Administered: Apr 11, 2024 09:30 Furnace Combination Analyst: SANOFI PASTEUR Lot: [id number] Exp Date: Jan 12, 2025 [facility]: [phone] Admin Route/Site: INTRAMUSCULAR/RIGHT DELTOID Dosage: 0.5mL Vaccine Information Statement(s): INFLUENZA(FLU) VACC(INACTIVATED OR RECOMBINANT)VIS Feb 18, 2021 ([place]) Order By: Policy Administered By: Olamide Car [...] full rights to use it throughout the [place] system. PRIMARY SCREEN RESULT: The Primary Screen [...] PF Date Administered: Apr 11, 2024 09:30 Furnace Combination Analyst: LegitTrader Lot: [id number] Exp Date: Oct 13, 2024 [facility]: [phone] Admin Route/Site: INTRAMUSCULAR/LEFT DELTOID Dosage: 0.5mL Vaccine Information Statement(s): RSV (RESPIRATORY SYNCYTIAL VIRUS) VACCINE VIS May 03, 2023 ([place]) Order By: Rita Rosales Administered By: Olamide Car Comment: Sterile water diluent Lot #- [id number] 11/2024 Vaccine Information Sheet (VIS) was given to the patient/caregiver, education regarding adverse reactions was discussed, as well as barriers to learning, if any, were acknowledged. /kristen/ OLAMIDE CAR, MSN, RN, CNL PRIMARY CARE TEAM NURSE Signed: 04/11/2024 10:19 OLAMIDE CAR [facility]
--- OUTSIDE RECORDS SUMMARY | 2024-06-30 12:42 | XMS_ITS | Encounter Summary ---
Author Name [facility] [place] [facility] [place] Address [address] [place] [address] Care Team Providers Care Spooler Name Role Phone LAURENT ROBLES Primary Care [...] PART A Dec 14, 2012 PART A [id number] GENEVIEVE ARNOLD JR PATIENT MEDICARE (WNR) MEDICARE (M) PART B Dec 14, 2012 PART B [id number] GENEVIEVE ARNOLD PATIENT MEDICARE PART D (WNR) PRESCRIPT ION PART D Dec 14, 2012 PART D [id number] GENEVIEVE ARNOLD PATIENT [facility] (WNR) MEDICARE ADVANTAGE [facility](W NR) Jul 16, 2022 [id number] GENEVIEVE ARNOLD PATIENT [facility] (WNR) MEDICARE ADVANTAGE [facility] (WNR) Jul 16, 2017 [id number] GENEVIEVE ARNOLD PATIENT Selected Encounter This [...] 01:00 PM [facility] May 19, 2024 02:00 PM [facility]UL[facility] May 20, 2024 09:00 AM [facility]UL[facility] Aug 25, 2024 08:30 AM AMBULATORY [...] of theEncounter. The data comes from all [place] treatment facilities. Test Date/Time Test Type Test Details Facility Name Apr 17, 2024 08:33 AM Consult Order COMMUNITY CARE-PULMONARY Cons Scale Install[facility]'s [facility] Social History: Smoking Status (Most current) and Tobacco Use (All prior to encounter date) This section includes the most current, and the historical, smoking and tobacco- related health factors from the [place] facility where the Encounter took place. Current Smoking Status This section includes the most current smoking, or tobacco-related health factor, from the [place] facility where the Encounter took place. Date/Time Current Smoking Status Comment Adria childress Apr 11, 2024 09:30 AM VA-TOBACCO [facility] Tobacco Use History This section includes a history of the smoking, or tobacco-related health factors, that were collected on or before the date of the Encounter. The data comes from the [place] facility where the Encounter took place. Date/Time Smoking Status/Tobacco Use Comment F acility Apr 11, 2024 09:30 AM VA-TOBACCO QUIT 5 TO < 15 YRS [facility] [place] [facility] Apr 09, 2023 09:00 AM VA-TOBACCO FORMER USER [facility] [place] [facility] Apr 09, 2023 09:00 AM VA-TOBACCO QUIT 5 TO < 15 YRS [facility] [place] [facility] Apr 13, 2022 09:30 AM VA-TOBACCO FORMER USER [facility] [place] [facility] Apr 13, 2022 09:30 AM VA-TOBACCO QUIT 5 TO < 15 YRS [facility] [place] [facility] Apr 12, 2021 11:30 AM VA-TOBACCO FORMER USER [place] [facility] [place] [facility] Apr 12, 2021 11:30 AM VA-TOBACCO QUIT 5 TO < 15 YRS [place] [facility] [place] [facility] Mar 19, 2020 09:00 AM VA-TOBACCO FORMER USER [place] [facility] [place] [facility] Mar 19, 2020 09:00 AM VA-TOBACCO QUIT 5 TO < 15 YRS [place] [facility] [place] [facility] December 12, 2018 10:18 AM VA-TOBACCO FORMER USER [place] [facility] [place] [facility] December 12, 2018 10:18 AM VA-TOBACCO QUIT 5 TO < 15 YRS [place] [facility] [place] [facility] Jan 21, 2018 07:50 AM QUIT TOBACCO USE > 7 YEARS AGO [place] [facility] [place] [facility] Dec 25, 2016 10:59 AM QUIT TOBACCO USE > 7 YEARS AGO [place] [facility] [place] [facility] Advance Directives: All historical and current Section Date Range: From patient's date of to the date document was created. This section includes ALL of a patient's completed or amended [place] Advance and Rescinded Directives. The entries below indicate that a directive exists for the patient, but an actual copy is not included with this document. The data comes from all [place] facilities. Date Advance Directives Provider Source May 23, 2015 ADVANCE DIRECTIVE [facility] Encounter Notes: All associated encounter notes This section contains the clinical notes associated to the Encounter. Date/Time Encounter Note(s) Provider Source Apr 12, 2024 08:39 AM NONVA NOTE: LOCAL TITLE: [facility] SELF PRESENTING CARE COORD PLAN STANDARD TITLE: NONVA NOTE DATE OF NOTE: APR 12, 2024@08:39 ENTRY DATE: APR 12, 2024@08:39:08 AUTHOR: EULOGIO GARCIA EXP COSIGNER: URGENCY: STATUS: COMPLETED Emergency Notification Intake Date Presenting to the Facility: Feb Method of Contact: Notified from ECR worklist Notification ID: [id number] [facility] Referral #: [id number] [facility] Name: Hospital: [facility] Address: City: [place] State: [place] Zip Code: Phone : Community Facility Point of Contact: Name: Mel Phone: Chief complaint: ABNORMAL LIVER FUNCTION,JAUNDACE Primary Diagnosis: Disposition Discharged Date of discharge: Feb Discharge to Comment: ER Only /kristen/ EULOGIO OTERO Signed: 04/12/2024 08:40 Receipt Acknowledged By: * AWAITING SIGNATURE * ALF OLVERA * AWAITING SIGNATURE * SHARLENE GALLARDO * AWAITING SIGNATURE * PERCY POWELL * AWAITING SIGNATURE * LIBERTAD PARDO DAWN [place]
--- OUTSIDE RECORDS SUMMARY | 2024-06-30 12:42 | XMS_ITS | Encounter Summary ---
Author Name [facility] [place] Organization [facility] [place] Address [address] [place] [address] Care Team Providers Care Saw Repairer Name Role Phone LAURENT ROBLES Primary Care [...] PART A Dec 14, 2012 PART A [id number] GENEVIEVE ARNOLD JR PATIENT MEDICARE (WNR) MEDICARE (M) PART B Dec 14, 2012 PART B [id number] [phone] GENEVIEVE ARNOLD PATIENT MEDICARE PART D (WNR) PRESCRIPT ION PART D Dec 14, 2012 PART D [id number] GENEVIEVE ARNOLD PATIENT [facility] (WNR) MEDICARE ADVANTAGE MCR(W NR) Jul 16, 2022 [id number] GENEVIEVE ARNOLD PATIENT [facility] (WNR) MEDICARE ADVANTAGE [facility] (WNR) Jul 16, 2017 [id number] GENEVIEVE ARNOLD PATIENT Selected Encounter This section includes the information on record at [place] for the Encounter. Date/Time Encounter Type Encounter Description Reason Provider Source Dec 20, 2023 11:00 AM HEARING AID FITTING/CHECKIN G AUDIOLOGY ICD-10-CM Z46.1 Encounter for fitting and adjustment of hearing aid VIDAL HERR Amaya Encounter Template Text not used by [place] Assessments - Encounter Diagnoses This section includes the primary and secondary diagnoses documented for the Encounter. Date/Time Primary/Secondary Diagnosis Diagnosis Name Provider Source Dec 20, 2023 11:25 AM PRIMARY Encounter for fitting and adjustment of hearing aid VIDAL HERR [place] [facility] [place] [facility] Dec 20, 2023 11:25 AM SECONDARY Sensorineural hearing loss, bilateral ROSENDA HERRA E [place] [facility] [place] [facility] Plan of Treatment: Future Appointments (+ 6 months) and Future Tests (+/- 45 days) The Plan of Treatment section includes future care activities for the patient from all [place] treatment[facility]. This section includes future appointments and [...] 11:00 AM AMBULATORY - REHAB MEDICIN E [place] [facility] [place] [facility] Apr 11, 2024 09:30 AM AMBULATORY - MEDICINE ME C [facility] [place] [facility] Apr 11, 2024 11:00 AM AMBULATORY - REHAB MEDICIN E [facility] [place] [facility] Apr 29, 2024 01:00 PM AMBULATORY - REHAB MEDICIN E [facility] [place] [facility] May 19, 2024 02:00 PM AMBULATORY - MEDICINE ME C [facility] [place] [facility] May 20, 2024 09:00 AM AMBULATORY - REHAB MEDICIN E [place] [facility] [place] [facility] Social History: Smoking Status (Most current) and [...] 09, 2023 09:00 AM VA-TOBACCO FORMER USER [place] [facility] [place] [facility] Tobacco Use History This section includes a history of the smoking, or tobacco-related health factors, that were collected on or before the date of the Encounter. The data comes from the [place] facility where the Encounter took place. Date/Time Smoking Status/Tobacco Use Comment F acility Apr 09, 2023 09:00 AM VA-TOBACCO QUIT 5 TO < 15 YRS [facility] [place] [facility] Apr 13, 2022 09:30 AM VA-TOBACCO FORMER USER VA [facility] [place] [facility] Apr 13, 2022 09:30 AM VA-TOBACCO QUIT 5 TO < 15 YRS [facility] [place] [facility] Apr 12, 2021 11:30 AM VA-TOBACCO FORMER USER [place] [facility] [place] [facility] Apr 12, 2021 11:30 AM VA-TOBACCO QUIT 5 TO < 15 YRS [facility] [place] [facility] Mar 19, 2020 09:00 AM VA-TOBACCO FORMER USER ME [facility] [place] [facility] Mar 19, 2020 09:00 AM VA-TOBACCO QUIT 5 TO < 15 YRS [place] [facility] [place] [facility] December 12, 2018 10:18 AM VA-TOBACCO FORMER USER [place] [facility] [place] [facility] December 12, 2018 10:18 AM VA-TOBACCO QUIT 5 TO < 15 YRS [facility] [place] [facility] Jan 21, 2018 07:50 AM QUIT TOBACCO USE > 7 YEARS AGO [place] [facility] [place] [facility] Dec 25, 2016 10:59 AM QUIT TOBACCO USE > 7 YEARS AGO [place] [facility] [place] [facility] Advance Directives: All historical and current Section [...] May 23, 2015 ADVANCE DIRECTIVE AMBER PENA [facility] Encounter Notes: All associated encounter notes This section contains the clinical notes associated to the Encounter. Date/Time Encounter Note(s) Provider Source Dec 20, 2023 09:00 AM AUDIOLOGY E & M NO TE: LOCAL TITLE: AUDIOLOGY CLINIC STANDARD TITLE: AUDIOLOGY E & M NOTE DATE OF NOTE: DEC 20, 2023@09:00 ENTRY DATE: DEC 20, 2023@09:00:03 AUTHOR: VIDAL HERR EXP COSIGNER: URGENCY: STATUS: COMPLETED [place] has a history of bilateral sensorineural hearing [...] at 11am, RTC placed. /kristen/ Checo SCHULTZ, [facility]-A STAFF HUMAN RESOURCES BENEFITS ADMINISTRATOR Signed: 12/20/2023 11:27 Receipt Acknowledged By: 12/20/2023 11:36 /kristen/ PERCY ERWIN LEAD NEONATAL SOCIAL WORKER VIDAL HERR [facility]
--- OUTSIDE RECORDS SUMMARY | 2024-06-30 12:43 | XMS_ITS | Encounter Summary ---
Author Name [facility] [place] Address [address] [place] [address] Care Team Providers Care [employer] Reading Teacher Name Role Phone LAURENT ROBLES Primary [...] PART A Dec 14, 2012 PART A [id number] [phone] GENEVIEVE ARNOLD JR PATIENT MEDICARE (WNR) MEDICARE (M) PART B Dec 14, 2012 PART B [id number] [phone] GENEVIEVE ARNOLD PATIENT MEDICARE PART D (WNR) PRESCRIPT ION PART D Dec 14, 2012 PART D [id number] GENEVIEVE ARNOLD PATIENT [facility] (WNR) MEDICARE ADVANTAGE MCR(W NR) Jul 16, 2022 [id number] GENEVIEVE ARNOLD PATIENT [facility] (WNR) MEDICARE ADVANTAGE [facility] (WNR) Jul 16, 2017 [id number] GENEVIEVE ARNOLD PATIENT Selected Encounter This section includes the information on record at [place] for the Encounter. Date/Time Encounter Type Encounter Description Reason Provider Source May 20, 2024 09:00 AM HEARING AID FITTING/CHECKIN G AUDIOLOGY ICD-10-CM Z46.1 Encounter for fitting and adjustment of hearing aid DORIS PITTS Amaya Encounter Template Text not used by [place] Assessments - Encounter Diagnoses This section includes the primary and secondary diagnoses documented for the Encounter. Date/Time Primary/Secondary Diagnosis Diagnosis Name Provider Source May 20, 2024 09:24 AM PRIMARY Encounter for fitting and adjustment of hearing aid [facility] [place] [facility] May 20, 2024 09:24 AM SECONDARY Sensorineural hearing loss, bilateral ROYER PITTS [place] [facility] [place] [facility] Plan of Treatment: Future Appointments (+ 6 months) and Future Tests (+/- 45 days) The Plan of Treatment section includes future care activities for the patient from all [place] [facility]. This section includes future appointments and future orders which are active, pending or scheduled. Future Appointments This section includes appointments that were scheduled to occur 6 months from the date of the Encounter, up to a maximum of 20 appointments. The data comes from all [place] treatment facilities. Appointment Date/Time Appointment Type Appointme [...] of theEncounter. The data comes from all [place] treatment facilities. Test Date/Time Test Type Test Details Facility Name Apr 17, 2024 08:33 AM Consult Order COMMUNITY CARE-PULMONARY Cons Event Marketing Manager's Choice [place] [facility] [place] [facility] Jun 26, 2024 12:59 PM Consult Order COMMUNITY CARE-UROLOGY Cons Event [facility] [place] [facility] Social History: Smoking Status (Most current) and Tobacco Use (All prior to encounter date) This section includes the most current, and the historical, smoking and tobacco- related health factors from the [place] facility where the Encounter took place. Current Smoking Status This section includes the most current smoking, or tobacco-related health factor, from the [place] facility where the Encounter took place. Date/Time Current Smoking Status Comment Adria ity Apr 11, 2024 09:30 AM VA-TOBACCO FORMER USER [facility] [place] [facility] Tobacco Use History This section includes a history of the smoking, or tobacco-related health factors, that were collected on or before the date of the Encounter. The data comes from the [place] facility where the Encounter took place. Date/Time Smoking Status/Tobacco Use Comment F acility Apr 11, 2024 09:30 AM VA-TOBACCO QUIT 5 TO < 15 YRS [facility] [place] [facility] Apr 09, 2023 09:00 AM VA-TOBACCO FORMER USER [facility] [place] [facility] Apr 09, 2023 09:00 AM VA-TOBACCO QUIT 5 TO < 15 YRS [facility] [place] [facility] Apr 13, 2022 09:30 AM VA-TOBACCO FORMER USER [facility] [place] [facility] Apr 13, 2022 09:30 AM VA-TOBACCO QUIT 5 TO < 15 YRS [facility] [place] [facility] Apr 12, 2021 11:30 AM VA-TOBACCO FORMER USER [facility] [place] [facility] Apr 12, 2021 11:30 AM VA-TOBACCO QUIT 5 TO < 15 YRS [facility] [place] [facility] Mar 19, 2020 09:00 AM VA-TOBACCO FORMER USER [facility] [place] [facility] Mar 19, 2020 09:00 AM VA-TOBACCO QUIT 5 TO < 15 YRS [facility] [place] [facility] December 12, 2018 10:18 AM VA-TOBACCO FORMER USER [facility] [place] [facility] December 12, 2018 10:18 AM VA-TOBACCO QUIT 5 TO < 15 YRS [facility] [place] [facility] Jan 21, 2018 07:50 AM QUIT TOBACCO USE > 7 YEARS AGO [facility] [place] [facility] Dec 25, 2016 10:59 AM QUIT TOBACCO USE > 7 YEARS AGO [facility] [place] [facility] Advance Directives: All historical and current Section Date Range: From patient's date of to the date document was created. This section includes ALL of a patient's completed or amended [place] Advance and Rescinded Directives. The entries below indicate that a directive exists for the patient, but an actual copy is not included with this document. The data comes from all [place] facilities. Date Advance Directives Provider Source May 23, 2015 ADVANCE DIRECTIVE AMBER PENA [facility] Encounter Notes: All associated encounter notes This section contains the clinical notes associated to the Encounter. Date/Time Encounter Note(s) Provider Source May 20, 2024 09:22 AM AUDIOLOGY E & M NO TE: [facility] TITLE: AUDIOLOGY CLINIC STANDARD TITLE: AUDIOLOGY E & M NOTE DATE OF NOTE: MAY 20, 2024@09:22 ENTRY DATE: MAY 20, 2024@09:22:18 AUTHOR: DORIS PITTS EXP COSIGNER: URGENCY: STATUS: COMPLETED Dx: Sensorineural hearing loss, bilateral [place] was seen today for a hearing aid follow-up appointment to mixing picker tender his remade/repaired Oticon RICs. He was accompanied by his given his verbal consent. User settings were restored for both hearing aids, and overall gain and low frequency gain were decreased a few steps. Feedback manager nursing home was re-run. Fit of the hearing aids looks much better. [place] will contact the clinic as needed. /kristen/ Tomás Strange, [facility] Analytical Strategist Signed: 05/20/2024 09:24 DORIS PITTS [facility]
--- OUTSIDE RECORDS SUMMARY | 2024-06-30 12:43 | XMS_ITS ---
Author Organization [facility] Address [address] [place] [address] Care Team Providers Care Inpatient Care Manager Rn Name Role Phone Any Jackson MD Primary Care Provider UnavailDarrian Lockett Unavailable [phone] XUAN FAULKNER Unavailable Unavailab le REASON FOR VISIT QUESTIONS Encounters Encounter Location Date Provider Diagnosis [facility] [address] [place] [address] 03/13/2024 Darrian Khan Elevated liver function tests R94.5 ASSESSMENTS Encounter Date Diagnosis Assessment Notes Treatment Notes Treatment Clinical Notes 03/13/2024 Elevated liver function tests (ICD-10 - R94.5) PLAN OF TREATMENT Pending Test Test Name Order Date LIVER PROFILE 03/13/2024 Next Appt Details Provider Name:Darrian Khan , 11/20/2024 09:40:00 AM, [address] [place] [address], [address], [place], [address],
--- OUTSIDE RECORDS SUMMARY | 2024-06-30 12:43 | XMS_ITS ---
Author Organization [facility] Address [address] [address] Care Team Providers Care Hairpiece Stylist Name Role Phone yanet ly Primary Care Provider MARIBEL Hassan [phone] REASON FOR VISIT Handicap placard extension Encounters Encounter Location Date Provider Diagnosis [facility] [address] [address] 03/12/2023 MARIBEL POWELL PLAN OF TREATMENT No Information Progress Notes * Volodymyr ARNOLDDOB:[birth year] (73 yo M)Acc No.[id number]:03/12/2023 Patient:??Volodymyr Arnold :1950?Age:73 Y?Sex:Vicki odell Address:[address] [place] [address] * true * Date:??
--- OUTSIDE RECORDS SUMMARY | 2024-06-30 12:43 | XMS_ITS | Encounter Summary ---
Author Name [facility] [place] Address [address] [place] [address] Care Team Providers Care Intervention Teacher Name Role Phone LAURENT ROBLES Primary [...] PART A Dec 14, 2012 PART A [id number] GENEVIEVE ARNOLD JR PATIENT MEDICARE (WNR) MEDICARE (M) PART B Dec 14, 2012 PART B [id number] GENEVIEVE ARNOLD PATIENT MEDICARE PART D (WNR) PRESCRIPT ION PART D Dec 14, 2012 PART D [id number] GENEVIEVE ARNOLD PATIENT [facility] (WNR) MEDICARE ADVANTAGE [facility](W NR) Jul 16, 2022 [id number] GENEVIEVE ARNOLD PATIENT [facility] (WNR) MEDICARE ADVANTAGE [facility] (WNR) Jul 16, 2017 [id number] GENEVIEVE ARNOLD PATIENT Selected Encounter This section includes the information on record at [place] for the Encounter. Date/Time Encounter Type Encounter Description Reason Pro vider Source Apr 18, 2024 03:31 PM Outpatient Encounter PRIMARY CARE/MEDICINE IHE Encounter Template Text not used by [place] Plan of Treatment: Future Appointments (+ 6 months) and Future Tests (+/- 45 days) The Plan of Treatment section includes future care activities for the patient from all [place] [facility]. This section includes future [...] 01:00 PM [facility] May 19, 2024 02:00 PM AMBULAT[facility] May 20, 2024 09:00 AM [facility] Aug 25, 2024 08:30 AM AMBULATORY [...] of theEncounter. The data comes from all [place] treatment [facility]. Test Date/Time Test Type Test Details Facility Name Apr 17, 2024 08:33 AM Consult Order COMMUNITY CARE-PULMONARY Cons Shield [facility] Social History: Smoking Status (Most current) [...] 24, 2023 09:00 AM VA-TOBACCO FORMER USER [facility] Tobacco Use History This section includes a history of the smoking, or tobacco-related health factors, that were collected on or before the date of the Encounter. The data comes from the [place] facility where the Encounter took place. Date/Time Smoking Status/Tobacco Use Comment F acility Sep 24, 2023 09:00 AM VA-TOBACCO FORMER USER [facility] Sep 24, 2023 09:00 AM VA-TOBACCO QUIT 5 TO < 15 YRS [facility] Advance Directives: All historical and current Section Date Range: From patient's date of to the date document was created. This section includes ALL of a patient's completed or amended [place] Advance and Rescinded Directives. The entries below indicate that a directive exists for the patient, but an actual copy is not included with this document. The data comes from all [place] facilities. Date Advance Directives Provider Source May 23, 2015 ADVANCE DIRECTIVE AMBER PENA [facility] Encounter Notes: All associated encounter notes [...] SINGH PA-C Signed: 04/21/2024 13:04 JUNIOR SINGH [facility]
--- OUTSIDE RECORDS SUMMARY | 2024-06-30 12:43 | XMS_ITS ---
Author Organization [facility] Address [address] [address] Care Team Providers Care Fingernail Sculpturer Name Role Phone yanet ly Primary Care Provider MARIBEL Hassan [phone] REASON FOR VISIT RMV Placard/Plate form Encounters Encounter Location Date Provider Diagnosis [facility] [address] [address] 03/12/2023 MARIBEL POWELL PLAN OF TREATMENT No Information Progress Notes * Volodymyr ARNOLDDOB:[birth year] (73 yo M)Acc No.[id number]:03/12/2023 Patient:??Volodymyr Arnold :1950?Age:73 Y?Sex:Vicki odell Address:[address], [place] [address] * true * Date:??
--- OUTSIDE RECORDS SUMMARY | 2024-06-30 12:43 | XMS_ITS | Encounter Summary ---
Author Name [facility] [place] Organization [place] Address [address] [place] [address] Care Team Providers Care Break Off Worker Name Role Phone LAURENT ROBLES Primary Care [...] PART A Dec 14, 2012 PART A [id number] GENEVIEVE ARNOLD JR PATIENT MEDICARE (WNR) MEDICARE (M) PART B Dec 14, 2012 PART B [id number] GENEVIEVE ARNOLD PATIENT MEDICARE PART D (WNR) PRESCRIPT ION PART D Dec 14, 2012 PART D [id number] GENEVIEVE ARNOLD PATIENT [facility] (WNR) MEDICARE ADVANTAGE [facility](W NR) Jul 16, 2022 [id number] GENEVIEVE ARNOLD PATIENT [facility] (WNR) MEDICARE ADVANTAGE [facility] (WNR) Jul 16, 2017 [id number] [phone] GENEVIEVE ARNOLD PATIENT Selected Encounter This section includes the information on record at [place] for the Encounter. Date/Time Encounter Type Encounter Description Reason Pro vider Source Apr 21, 2024 01:07 PM Outpatient Encounter PRIMARY CARE/MEDICINE IHE Encounter Template Text not used by [place] Plan of Treatment: Future Appointments (+ 6 months) and Future Tests (+/- 45 days) The Plan of Treatment section includes future care activities for the patient from all [place] [facility]. This section includes future appointments and future orders which are active, pending or scheduled. Future Appointments This section includes appointments that were scheduled to occur 6 months from the date of the Encounter, up to a maximum of 20 appointments. The data comes from all [place] treatment facilities. Appointment Date/Time Appointment Type Appointme nt Facility Name Apr 29, 2024 01:00 PM [facility] May 19, 2024 02:00 PM [facility] May 20, 2024 09:00 AM [facility]AT[facility] Aug 25, 2024 08:30 AM [...] of theEncounter. The data comes from all [place] treatment [facility]. Test Date/Time Test Type Test Details Facility Name Apr 17, 2024 08:33 AM Consult Order COMMUNITY CARE-[facility]ULMONARY Cons [facility] Social History: Smoking Status (Most current) and Tobacco Use (All prior to encounter date) This section includes the most current, and the historical, smoking and tobacco- related health factors from the [place] facility where the Encounter took place. Current Smoking Status This section includes the most current smoking, or tobacco-related health factor, from the [place] facility where the Encounter took place. Date/Time Current Smoking Status Minoo childress Sep 24, 2023 09:00 AM VA-TOBACCO FORMER USER [facility] Tobacco Use History This section includes a history of the smoking, or tobacco-related health factors, that were collected on or before the date of the Encounter. The data comes from the [place] facility where the Encounter took place. Date/Time Smoking Status/Tobacco Use Comment F acility Sep 24, 2023 09:00 AM VA-TOBACCO FORMER USER [facility] Sep 24, 2023 09:00 AM VA-TOBACCO QUIT 5 TO < 15 YRS [facility] Advance Directives: All historical and current Section Date Range: From patient's date of to the date document was created. This section includes ALL of a patient's completed or amended [place] Advance and Rescinded Directives. The entries below indicate that a directive exists for the patient, but an actual copy is not included with this document. The data comes from all [place] facilities. Date Advance Directives Provider Source May 23, 2015 ADVANCE DIRECTIVE AMBER PENA [facility] Encounter Notes: All associated encounter [...] COSIGNER: URGENCY: STATUS: COMPLETED Long COVID Pre-Screen/Screen [place] completed digital pre-screen. Follow-up Plan Patient declines contact [facility] Long COVID Service is happy to help however we can. Please feel free to consult the [employer] Service at any time, if clinically indicated and if [place] is interested at a later time. Consult may be found under Consults -> [facility]-> PACT/Health Promotion Clinics -> Post Covid E-consult /kristen/ JUNIOR SINGH PA-C Signed: 04/21/2024 13:08 JUNIOR SINGH [facility]
--- OUTSIDE RECORDS SUMMARY | 2024-06-30 12:43 | XMS_ITS | Encounter Summary ---
Author Name [facility] [place] [facility] [place] [facility] [place] Address [address] [place] [address] Care Team Providers Care Channel Rebuilder Name Role Phone LAURENT ROBLES Primary Care [...] PART A Dec 14, 2012 PART A [id number] GENEVIEVE ARNOLD JR PATIENT MEDICARE (WNR) MEDICARE (M) PART B Dec 14, 2012 PART B [id number] [phone] GENEVIEVE ARNOLD PATIENT MEDICARE PART D (WNR) PRESCRIPT ION PART D Dec 14, 2012 PART D [id number] GENEVIEVE ARNOLD PATIENT [facility] (WNR) MEDICARE ADVANTAGE [facility]([place] NR) Jul 16, 2022 [id number] GENEVIEVE ARNOLD PATIENT [facility] (WNR) MEDICARE ADVANTAGE [facility] (WNR) Jul 16, 2017 [id number] GENEVIEVE ARNOLD PATIENT Selected Encounter This section includes the information on record at [place] for the Encounter. Date/Time Encounter Type Encounter Description Reason Pro vider Source Jun 24, 2024 03:02 PM Outpatient Encounter ADMIN PAT ACTIVTIES (MASNONCT) IHE Encounter Template Text not used by [place] Plan of Treatment: Future Appointments (+ 6 months) and Future Tests (+/- 45 days) The Plan of Treatment section includes future care activities for the patient from all [place] treatmentfacilities. This section includes future appointments and future orders which are active, pending or scheduled. Future Appointments This section includes appointments that were scheduled to occur 6 months from the date of the Encounter, up to a maximum of 20 appointments. The data comes from all [facility] facilities. Appointment Date/Time Appointment Type Appointme nt [...] of theEncounter. The data comes from all [facility] facilities. Test Date/Time Test Type Test Details Facility Name Jun 26, 2024 12:59 PM Consult Order COMMUNITY CARE-UROLOGY Cons Elementary Reading Tutor's Choice [facility] Social History: Smoking Status (Most current) and Tobacco Use (All prior to encounter date) This section includes the most current, and the historical, smoking and tobacco- related health factors from the [place] facility where the Encounter took place. Current Smoking Status This section includes the most current smoking, or tobacco-related health factor, from the [place] facility where the Encounter took place. Date/Time Current Smoking Status Comment Facil ity Apr 11, 2024 09:30 AM [place]-TOBACCO QUIT 5 TO < 15 YRS [facility] Tobacco Use History This section includes a history of the smoking, or tobacco-related health factors, that were collected on or before the date of the Encounter. The data comes from the [place] facility where the Encounter took place. Date/Time Smoking Status/Tobacco Use Comment F acility Apr 11, 2024 09:30 AM VA-TOBACCO QUIT 5 TO < 15 YRS [facility] Apr 09, 2023 09:00 AM VA-TOBACCO FORMER USER [facility] [place] Apr 09, 2023 09:00 AM VA-TOBACCO QUIT 5 TO < 15 YRS [facility] [place] Apr 13, 2022 09:30 AM VA-TOBACCO FORMER USER [facility] [place] [facility] Apr 13, 2022 09:30 AM VA-TOBACCO QUIT 5 TO < 15 YRS [facility] [place] Apr 12, 2021 11:30 AM VA-TOBACCO FORMER USER [facility] [place] [facility] Apr 12, 2021 11:30 AM VA-TOBACCO QUIT 5 TO < 15 YRS [facility] [place] [facility] Mar 19, 2020 09:00 AM VA-TOBACCO FORMER USER [facility] [place] [facility] Mar 19, 2020 09:00 AM VA-TOBACCO QUIT 5 TO < 15 YRS [facility] [place] [facility] December 12, 2018 10:18 AM VA-TOBACCO FORMER USER [facility] [place] [facility] December 12, 2018 10:18 AM VA-TOBACCO QUIT 5 TO < 15 YRS [facility] [place] [facility] Jan 21, 2018 07:50 AM QUIT TOBACCO USE > 7 YEARS AGO [facility] [place] [facility] Dec 25, 2016 10:59 AM QUIT TOBACCO USE > 7 YEARS AGO [facility] [place] [facility] Advance Directives: All historical and current Section Date Range: From patient's date of to the date document was created. This section includes ALL of a patient's completed or amended VA Advance and Rescinded Directives. The entries below indicate that a directive exists for the patient, but an actual copy is not included with this document. The data comes from all [place] facilities. Date Advance Directives Provider Source May 23, 2015 ADVANCE DIRECTIVE AMBER PE[facility] [place] [facility] Encounter Notes: All associated encounter notes This section contains the clinical notes associated to the Encounter. Date/Time Encounter Note(s) Provider Source Jun 26, 2024 01:01 PM ADDENDUM: LOCAL TITLE: Addendum STANDARD TITLE: ADDENDUM DATE OF NOTE: JUN 26, 2024@13:01:24 ENTRY DATE: JUN 26, 2024@13::24 AUTHOR: PERCY BULLOCK EXP COSIGNER: URGENCY: STATUS: COMPLETED all set if you can let him know I placed consults thanks /KOJO Aleman Nurse Practitioner Signed: 06/26/2024 13:01 Receipt Acknowledged By: 06/26/2024 14:00 /kristen/ LIBERTAD GUERRA REGISTERED NURSE === --- Original Document --- 06/24/24 CCC: SCHEDULING ADMINISTRATION: Patient Demographics Patient Name: GENEVIEVE ARNOLD JR Patient Primary Phone: [phone] Patient Primary [address]: [address] [place] [address] Patient : 1950 Patient Age: 74 Caller/Recipient Relation to Patient: Self Caller Name: GENEVIEVE ARNOLD Administrative Administrative Note Reason: Other Administrative Note Comments: Pt called. He is having bladder surgery on Sunday, June 30 at [facility], Dr. Darrin Grimaldo (phone #[phone]) , and he needs a referral to go there [facility]. He apologizes that he did not do this sooner. Please call him to let him know this has been sent. Thank you. IMPORTANT: This note was created by [facility] Clinical Contact Center staff. Please do not alert the staff member by adding them as a signer for future communications. Alerts are not monitored by this user. /kristen/ AMISHA ORTEGA 1 [facility] Signed: 06/24/2024 15:02 Receipt Acknowledged By: 06/25/2024 14:41 /kristen/ LIBERTAD GUERRA REGISTERED NURSE * AWAITING SIGNATURE * JAQUELIN JIM 06/25/2024 ADDENDUM STATUS: COMPLETED adding PCP /kristen/ LIBERTAD GUERRA REGISTERED NURSE Signed: 06/25/2024 14:41 Receipt Acknowledged By: 06/26/2024 12:56 /kristen/ KOJO LOREDO Nurse Practitioner 06/26/2024 ADDENDUM STATUS: UNSIGNED You may not VIEW this UNSIGNED Addendum. PERCY BULLOCK [facility] Jun 25, 2024 09:00 AM ADDENDUM: LOCAL TITLE: Addendum STANDARD TITLE: ADDENDUM DATE OF NOTE: JUN 25, 2024@09:00:18 ENTRY DATE: JUN 25, 2024@09:00:18 AUTHOR: LIBERTAD GUERRA EXP COSIGNER: URGENCY: STATUS: COMPLETED adding PCP /kristen/ LIBERTAD GUERRA REGISTERED NURSE Signed: 06/25/2024 14:41 Receipt Acknowledged By: 06/26/2024 12:Faye /KOJO Aleman Nurse Practitioner === --- Original Document --- 06/24/24 CCC: SCHEDULING ADMINISTRATION: Patient Demographics Patient Name: GENEVIEVE ARNOLD JR Patient Primary Phone: [phone] Patient Primary Address: [address] [place] [address] Patient : 1950 Patient Age: 74 Caller/Recipient Relation to Patient: Self Caller Name: GENEVIEVE ARNOLD Administrative Administrative Note Reason: Other Administrative Note Comments: Pt called. He is having bladder surgery on June 30 at [facility], Dr. Darrin Grimaldo (phone #[phone]) , and he needs a referral to go there [facility]. He apologizes that he did not do this sooner. Please call him to let him know this has been sent. Thank you. IMPORTANT: This note was created by [facility] Clinical Contact Center staff. Please do not alert the staff member by adding them as a signer for future communications. Alerts are not monitored by this user. /kristen/ AMISHA ORTEGA 1 [facility] Signed: 06/24/2024 15:02 Receipt Acknowledged By: 06/25/2024 14:41 /kristen/ LIBERTAD GUERRA REGISTERED NURSE * AWAITING SIGNATURE * JAQUELIN JIM MELISSA H [facility] Jun 24, 2024 03:02 PM ADMINISTRATIVE NOTE: LOCAL TITLE: CCC: SCHEDULING ADMINISTRATION STANDARD TITLE: ADMINISTRATIVE NOTE DATE OF NOTE: JUN 24, 2024@15:02:13 ENTRY DATE: JUN 24, 2024@15:02:13 AUTHOR: AMISHA PATTERSON COSIGNER: URGENCY: STATUS: COMPLETED CCC: SCHEDULING ADMINISTRATION Has ADDENDA Patient Demographics Patient Name: GENEVIEVE ARNOLD JR Patient Primary Phone: [phone] Patient Primary Address: [address] [place] [address] Patient : 1950 Patient Age: 74 Caller/Recipient Relation to Patient: Self Caller Name: GENEVIEVE ARNOLD Administrative Administrative Note Reason: Other Administrative Note Comments: Pt called. He is having bladder surgery on Sunday, June 30 at [facility], Dr. Darrin Grimaldo (phone #[phone]) , and he needs a referral to go there [facility]. He apologizes that he did not do this sooner. Please call him to let him know this has been sent. Thank you. IMPORTANT: This note was created by [facility] Clinical Contact Center staff. Please do not alert the staff member by adding them as a signer for future communications. Alerts are not monitored by this user. /kristen/ AMISHA ORTEGA 1 [facility] Signed: 06/24/2024 15:02 Receipt Acknowledged By: 06/25/2024 14:41 /rochelle GUERRA REGISTERED NURSE 06/26/2024 15:17 /kristen/ Jaquelin Jim, bias binding folder Staff Nurse 06/25/2024 ADDENDUM STATUS: COMPLETED adding PCP /kristen/ LIBERTAD GUERRA REGISTERED NURSE Signed: 06/25/2024 14:41 Receipt Acknowledged By: 06/26/2024 12:56 /KOJO Aleman Nurse Practitioner 06/26/2024 ADDENDUM STATUS: COMPLETED all set if you can let him know I placed consults thanks /KOJO Aleman Nurse Practitioner Signed: 06/26/2024 13:01 Receipt Acknowledged By: 06/26/2024 14:00 /rochelle GUERRA REGISTERED NURSE 06/26/2024 ADDENDUM STATUS: COMPLETED Rn called and updated appreciative of call /rochelle GUERRA REGISTERED NURSE Signed: 06/26/2024 14:01 AMISHA PATTERSON [facility]
--- OUTSIDE RECORDS SUMMARY | 2024-06-30 12:43 | XMS_ITS ---
Author Organization [facility] Address [address] [place] [address] Care Team Providers Care Yarding Supervisor Name Role Phone Po Any CUI Primary Care Provider Unavailfaith e Darrian Khan Unavailable [phone] XUAN FAULKNER Unavailable Unavailab le ALLERGIES Allergen [...] 05/16/2024 Encounters Encounter Location Date Provider Diagnosis [facility] [address] [place] [address] 05/16/2024 Darrian Khan Hx of adenomatous colonic [...] Provider Name:Darrian Khan , 11/20/2024 09:40:00 AM, [address] [place] [address], [address], [place], [address], Progress Notes * Examination Category Sub-Category Detail [...]
--- OUTSIDE RECORDS SUMMARY | 2024-06-30 12:43 | XMS_ITS ---
Author Organization [facility] Address [address] [place] [address] Care Team Providers Care Superannuation Funds Manager Name Role Phone Any Jackson MD Primary Care Provider UnavailDarrian Lockett Unavailable [phone] XUAN FAULKNER Unavailable Unavailab le REASON FOR VISIT fyi update. vertigo PROBLEMS Problem Type ICD Code Onset Dates Problem Status W/U Status Risk SNOMED Code Notes Problem Elevated liver function tests (R94.5) Active confirmed Elevated liver enzymes level (221581800) Encounters Encounter Location Date Provider Diagnosis [facility] [address] [place] [address] 03/02/2024 Darrian Khan Elevated liver function tests R94.5 ASSESSMENTS Encounter Date Diagnosis Assessment Notes Treatment Notes Treatment Clinical Notes 03/02/2024 Elevated liver function tests (ICD-10 - R94.5) PLAN OF TREATMENT Pending Test Test Name Order Date LIVER PROFILE 03/02/2024 Next Appt Details Provider Name:Darrian Khan , 11/20/2024 09:40:00 AM, [address], [address], [place], [address],
--- OUTSIDE RECORDS SUMMARY | 2024-06-30 12:43 | XMS_ITS | Patient Health Record ---
Author Organization [facility] Address [address] [place] [address] Care Team Providers Care Edge Trimmer Name Role Phone Po Any CUI Primary Care Provider UnavailDarrian Lockett Unavailable [phone] XUAN SHEARER Unavailable Unavailab le ALLERGIES Allergen (clinical drug ingredient) Drug/Non Drug Allergy documented on EMR Reaction Allergy Type Onset Date Status doxycycline Doxycycline jaundice Drug Allergy Act eva amoxicillin Amoxicillin jaundice Drug Allergy Act eva RESULTS Component Value Reference Range Notes Complete Blood Count no Diff Reviewed date:02/22/2024 05:51:08 PM Interpretation: Performing Lab:[facility], [address] [place] [phone] Notes/Report: White Blood Count 5.7 4.8-10.8 X10*3/uL [...] INR Reviewed date:02/22/2024 05:55:38 PM Interpretation: Performing Lab:[facility], [address] [place] [phone] Notes/Report: Prothrombin Time 12.9 11.1-13.3 SEC INTERNATIONAL [...] Panel Reviewed date:02/22/2024 06:05:52 PM Interpretation: Performing Lab:[facility], [address] [place] [phone] Notes/Report: Bilirubin Total 4.7 0.0-1.0 mg/dL Bilirubin Direct 3.4 0.0-0.5 mg/dL Aspartate Amino Transferase 52 5-37 U/L Alanine Aminotransferase 77 0-40 U/L Total Protein 7.7 6.5-8.0 g/dL Albumin Level 4.0 3.5-5.0 g/dL Alkaline Phosphatase 141 39-117 U/L IRON PROFILE Reviewed date:02/22/2024 05:55:56 PM Interpretation: Performing Lab:[facility], [address] [place] [phone] Notes/Report: Iron 127 45-160 mcg/dL Total Iron Binding Capacity 291 228-428 mcg/d L Percent Iron Saturation 44 15-50 % Unsaturated Iron Binding 164 Ferritin Reviewed date:02/22/2024 05:56:05 PM Interpretation: Performing Lab:[address] [address] Notes/Report: Ferritin 366 20-250 ng/mL SANDY Reflex Titer and Pattern Reviewed date:02/25/2024 10:47:25 PM Interpretation: Performing Lab:[address] [address] Notes/Report: Anti Nuclear Antibody Screen NEGATIVE NEGATIVE [...] Negative International Consensus on SANDY Patterns (https://doi.org/10.1515/c ume-1595-9198) For additional information, please refer to http://education.cFares.hipages.com.au/faq/WYA625 (This link is being provided for informational/ educational purposes only.) THIS TEST WAS PERFORMED AT: [facility] [address] [place] [phone] AMILCAR ZABALA MD Anti Nuclear Antibody Titer TNP Anti Nuclear Antibody Pattern TNP SANDY Titer 2 TNP SANDY Pattern 2 TNP SANDY Titer 3 TNP SANDY Pattern 3 TNP Mitochondrial Antibody Reviewed date:03/03/2024 11:29:34 PM Interpretation: Performing Lab:[address] [address] Notes/Report: Mitochondrial Antibodies NEGATIVE NEGATIVE The specimen was negative for cytoplasmic antibodies, however additional staining was observed suggesting the presence of Antinuclear Antibodies. Consider requesting order code 249, SANDY Screen, IFA with Reflex to Titer and Pattern, or order code [id number], SANDY Screen, IFA w/reflex Titer/Pattern, and Reflex to Multiplex 11 Ab [place], if clinically indicated. THIS TEST WAS PERFORMED AT: [facility] [address] [place] [phone] AMILCAR ZABALA MD Mitochondrial Ab Titer TNP Smooth Muscle Antibody Reviewed date:03/03/2024 11:29:41 PM Interpretation: Performing Lab:[address] [address] Notes/Report: Smooth Muscle Antibody <20 <20 U [...] type 1. THIS TEST WAS PERFORMED AT: [facility] [address] [place] [address] ANGEL VIDAL MD,PHD Hepatitis A,B,C Profile Reviewed date:02/22/2024 05:56:33 PM Interpretation: Performing Lab:[address] [address] Notes/Report: Hepatitis A Antibody IgM Nonreactive Nonreactive [...] Ammonia Reviewed date:02/29/2024 07:55:27 PM Interpretation: Performing Lab:[address] [address] Notes/Report: Ammonia 28 13-55 umol/L Complete Blood Count Auto Di ff Reviewed date:02/29/2024 07:54:38 PM Interpretation: Performing Lab:[address] [address] Notes/Report: White Blood Count 6.5 4.8-10.8 X10*3/uL [...] Time Reviewed date:02/29/2024 07:54:46 PM Interpretation: Performing Lab:[address] [address] Notes/Report: Partial Thromboplastin Time 39.0 26.0-36.8 SEC For information regarding the monitoring of direct thrombin inhibitors, please refer to Pharmacy. Liver Panel Reviewed date:03/02/2024 11:08:18 PM Interpretation: Performing Lab:[address] [address] Notes/Report: Bilirubin Total 2.5 0.0-1.0 mg/dL Bilirubin Direct 1.6 0.0-0.5 mg/dL Aspartate Amino Transferase 58 5-37 U/L Alanine Aminotransferase 87 0-40 U/L Total Protein 7.4 6.5-8.0 g/dL Albumin Level 3.8 3.5-5.0 g/dL Alkaline Phosphatase 111 39-117 U/L Basic Metabolic Panel Reviewed date:02/29/2024 07:55:19 PM Interpretation: Performing Lab:[address] [address] Notes/Report: Sodium 140 135-145 mmol/L Potassium 4.6 3.3-5.1 mmol/L Chloride 104 96-108 mmol/L Carbon Dioxide 30 22-29 mmol/L Anion Gap 11 12-20 Blood Urea Nitrogen 15 9-16 mg/dL Creatinine 0.96 0.5-1.4 mg/dL Estimated Glomerular Filt Rate > 60 NOTE: For -Citizen Of [place] individuals, multiply the result by 1.210. Chronic Kidney Disease: Estimated GFR < 60 mL/min/1.73m2 Severe Kidney Disease: Estimated GFR < 15 mL/min/1.73m2 Glucose Random 98 60-115 mg/dL Calcium 10.1 8.4-10.2 mg/dL Liver Panel Reviewed date:03/12/2024 07:33:03 AM Interpretation: Performing Lab:[facility], [address] [place] [address] Notes/Report: Bilirubin Total 1.3 0.0-1.0 mg/dL Bilirubin Direct 0.8 0.0-0.5 mg/dL Aspartate Amino Transferase 37 5-37 U/L Alanine Aminotransferase 71 0-40 U/L Total Protein 7.7 6.5-8.0 g/dL Albumin Level 4.1 3.5-5.0 g/dL Alkaline Phosphatase 90 39-117 U/L Blood Urea Nitrogen Reviewed date:03/10/2024 11:20:43 PM Interpretation: Performing Lab:[facility], [address] [place] [phone] Notes/Report: Blood Urea Nitrogen 15 9-16 mg/dL Creatinine Reviewed date:03/10/2024 11:20:50 PM Interpretation: Performing Lab:[facility], [address] [place] [address] Notes/Report: Creatinine 0.86 0.5-1.4 mg/dL Estimated Glomerular Filt Rate > 60 NOTE: For -Citizen Of [place] individuals, multiply the result by 1.210. Chronic Kidney Disease: Estimated GFR < 60 mL/min/1.73m2 Severe Kidney Disease: Estimated GFR < 15 mL/min/1.73m2 Liver Panel Reviewed date:03/31/2024 08:49:38 AM Interpretation: Performing Lab:[facility], [address] [place] [phone] Notes/Report: Bilirubin Total 1.1 0.0-1.0 mg/dL Bilirubin [...] malignant neoplasm of colon (Z12.11) Active confirmed 992695071 Problem Elevated LFTs (R79.89) Active confirmed 322962263 Problem Preprocedural examination (Z01.818) Active confirmed 670840392327552 Problem Iron excess (E83.19) Active confirmed 07080925 Problem Jaundice (R17) Active confirmed Jaundic e (92706524) Problem Hx of adenomatous colonic polyps (Z86.010) Active confirmed 310358172 Problem Pruritus (L29.9) Active confirmed Pruri tus (704602456) Problem Elevated liver function tests (R94.5) Active confirmed Elevated liver enzymes level (520378028) VITAL SIGNS Blood pressure diastolic 00 mm Hg 05/16/2024 Height 66 in 05/16/2024 Blood pressure systolic 00 mm Hg 05/16/2024 Weight 205 lbs 05/16/2024 BMI 33.08 kg/m2 05/16/2024 Encounters Encounter Location Date Provider Diagnosis [facility] [address] [place] [address] 02/26/2024 Darrian Khan Jaundice R17 and Pruritus L29.9 [facility] [address] [place] [address] 05/16/2024 Darrian Khan Hx of adenomatous colonic polyps Z86.010 ; Jaundice R17 and Encounter for screening for malignant neoplasm of colon Z12.11 [place] [address] 02/19/2024 Darrian Khan Elevated LFTs R79.89 [facility] [address] [place] [address] 03/02/2024 Darrian Khan Elevated liver function tests R94.5 [facility] [place] [address] 03/13/2024 Darrian Khan Elevated liver function tests [...] 02/26/2024 CHEM 7 PROFILE 06/14/2022 LIVER PROFILE 08/11/2022 LIVER PROFILE 03/02/2024 LIVER PROFILE 06/16/2022 LIVER PROFILE 06/29/2022 LIVER PROFILE 03/13/2024 LIVER PROFILE 08/11/2022 LIVER PROFILE 02/26/2024 LIVER PROFILE 06/14/2022 LIVER PROFILE 02/19/2024 LIVER PROFILE 06/21/2022 IRON + IBC (FE) 08/11/2022 IRON + IBC (FE) 06/16/2022 IRON + IBC (FE) 08/11/2022 IRON + IBC (FE) 02/19/2024 FERRITIN 02/19/2024 CRP 06/16/2022 CBC w DIFF 02/26/2024 CBC w DIFF 06/14/2022 CBC w/o DIFF 02/19/2024 SED RATE (ESR) 06/16/2022 PROTHROMBIN TIME (PT, INR) 02/26/2024 PROTHROMBIN TIME (PT, INR) 06/21/2022 PROTHROMBIN TIME (PT, INR) 02/19/2024 PROTHROMBIN TIME (PT, INR) 06/16/2022 HEPATITIS A,B,C PROFILE 06/16/2022 HEPATITIS A,B,C PROFILE 02/19/2024 [id number] (A1A) 06/16/2022 MITOCHONDRIAL AB 02/19/2024 SMOOTH MUSCLE ANTIBODIES 02/19/2024 MRI ABD W&WO CONTRAST 06/16/2022 FLUOR. ANTINUCLEAR AB SCREEN ([facility]) 12/2023 FLUOR. ANTINUCLEAR AB SCREEN ([facility]) 08/2021 Prothrombin Time INR 06/29/2022 Ferritin 08/11/2022 Ferritin 08/11/2022 Future Test Test Name Order Date COLONOSCOPY 01/27/2014 COLONOSCOPY 11/20/2019 Next Appt Details Provider Name:Darrian Allen Khan , 11/20/2024 09:40:00 AM, [address] [place] [address], [facility] [address], [place], [address], Insurance Providers Payer Name Payer Address Payer Phone Subscriber Number Group Number Insured Name Patient Relationship to Insured Coverage Start Date Coverage End Date [facility] [address] [address] [place] [address] [id number] GENEVIEVE ARNOLD Self - patient is the insured MEDICAL (GENERAL) HISTORY Medical History History ICD Code Hyperlipidemia Colonoscopy 10-12-2008--1 tub ular adenoma removed; colonoscopy 03/2014 with 2 small tubular adenomas EGD [place] [address] Walter-- negative except for mild reflux-there was no Hough's esophagus nor significant esophagitis Irregular heartbeat--Atrial fibrillation/PVC's--Dr. Shearer. Had an ablation in 04/[address] Brownlee Denies [place],DM,CVA,Lung disease,renal dise ase Bladder cancer 06/2013--has periodic [...] Knee replacement-partial--- left 08/2019 Right big toe JVA-fdtfeklea-Fz. Mazzucco 2020
--- OUTSIDE RECORDS SUMMARY | 2024-06-30 12:44 | XMS_ITS | Patient Health Record ---
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
--- NOTE | 2024-06-30 13:42 | MHC.SHP ---
Pre-Procedural Eval Section A - 24 Hr Update-Section A only Date of Service: 06/30/24 The patient is an INPATIENT: No Changes since office visit: No Cold of Flu in the past 2 weeks, No New Medical Problems, No Changes in Medication and No Patient answered all questions The patient has been examined within 24 hours of the surgical procedure. The History & Physical has been completed within 30 days and I have reviewed it.: Yes Section B - Complete if H&P > 30 days Chief Complaint: Malignant neoplasm of bladder, Details of Present Illness: Cystoscopy, bladder biopsy, fulguration, mitomycin-C instillation Allergies: Allergies Allergy/AdvReac Type Severity Reaction Status Date / Time dronedarone [From Multaq] Allergy Mild Rash Verified 06/30/24 13:05 amoxicillin [From Augmentin] Allergy liver Verified 06/30/24 13:05 failure clavulanic acid Allergy liver Verified 06/30/24 13:05 [From Augmentin] failure Penicillins AdvReac Intermediate Unknown Verified 06/30/24 13:05 Plan I have reviewed the history and physical and performed a pertinent physical examination on my patient. No changes have occurred unless specified. Time Spent With Patient Time: Total time managing care of this patient today ____ minutes.
[2024-06-30] MEDS: Lactated Ringers 1,000 ML 100 ML IVCONT (13:53)
--- NOTE | 2024-06-30 14:29 | P.OP_ITS ---
Operative Note Operative Note Date of Service: 06/30/24 Narrative: PreOperative Diagnosis: bladder cancer Post Operative Diagnosis: bladder cancer Procedure: cystoscopy, bladder biopsy, fulguration, instillation immunotherapy Surgeon: Dr Darrin Alicea Anesthesia: LMA Indications for procedure: Superficial bladder cancer. Here for cystoscopy, bladder biopsy. Evaluation. Procedure: After informed consent was verified the patient was brought to the operating room and placed in a supine position. Anesthesia was administered per protocol. The patient was placed in modified dorsal lithotomy position and prepped and draped in a sterile fashion. Safety pause time-out was performed. Antibiotics being given. Cystoscopy was performed. Prior biopsy areas and fulgurated areas were seen. Area of mucosal redness seen on posterior wall. Area biopsy. Fulguration performed. At the completion of the procedure the bladder was irrigated. The cystoscope was removed. A [address] Dinero catheter was inserted into the bladder. 10 cc was placed in the balloon. Mitomycin-C with cytarabine was instilled into the bladder. The flow from the catheter was left clamped. The inflow to the catheter was attached to a 3 L normal saline bag. The patient tolerated the procedure well. They were extubated in the operating room and transferred in stable condition to the recovery area. Mitomycin-C will remain in the bladder for 1 hour. At the completion of 1 hour the clamp will be removed. The mitomycin-C will be allowed to egress to the urine collection bag. The 3 L bag of normal saline will be run at maximum rate through the bladder in order to dilute any residual mitomycin-C. The Dinero catheter will then be removed. The patient tolerated the procedure well. They were extubated in operating room and transferred in stable conditions recovery area. Pathology: Bladder biopsies Drains: None
== END | disposition home or self-care (01) ==
PROVIDERS: PCP Internal Medicine; Visit Provider Urology
PROC: 0T5B8ZZ Destruction of Bladder, Via Natural or Artificial Opening Endoscopic (ICD-10-PCS; CPT 52234; principal; 2024-06-30 14:50)
DX: C67.9 Malignant neoplasm of bladder, unspecified (principal); N30.20 Other chronic cystitis without hematuria; I48.91 Unspecified atrial fibrillation; I44.7 Left bundle-branch block, unspecified; J44.9 Chronic obstructive pulmonary disease, unspecified; E78.00 Pure hypercholesterolemia, unspecified; G47.33 Obstructive sleep apnea (adult) (pediatric); Z79.01 Long term (current) use of anticoagulants; Z79.51 Long term (current) use of inhaled steroids; Z79.899 Other long term (current) drug therapy; Z88.0 Allergy status to penicillin; Z88.1 Allergy status to other antibiotic agents; Z88.8 Allergy status to other drugs, medicaments and biological substances; Z77.098 Contact with and (suspected) exposure to other hazardous, chiefly nonmedicinal, chemicals; Z98.890 Other specified postprocedural states; Z87.891 Personal history of nicotine dependence
CPT/HCPCS: 52234; 51720; 88305; J0131; J1956; J3010; J9100; J9280

== ENCOUNTER 2024-07-07 15:45 | Outpatient (REF) | payer MEDICARE, SELFPAY ==
--- OUTSIDE RECORDS SUMMARY | 2024-07-07 15:49 | XMS_ITS ---
Author Organization [facility] Address [address] [address] Care Team Providers Care Woodworking Shop Laborer Name Role Phone aliyahyanet Primary Care Provider MARIBEL Hassan [phone] REASON FOR VISIT Handicap placard extension Encounters Encounter Location Date Provider Diagnosis [facility] [address] [facility] [address] [place] [address] 03/12/2023 MARIBEL POWELL Plan Of Treatment No Information Progress Notes * Volodymyr ARNOLDDOB:[birth year] (73 yo M)Acc No.[id number]:03/12/2023 Patient:?Volodymyr Arnold :1950???Age:73 Y???Sex:Male Address: [place] [address] * true * Date:? Generated for Printi ng/Mylesg/eTransmitting on:?07/07/2024 03:49 PM EST
--- OUTSIDE RECORDS SUMMARY | 2024-07-07 15:49 | XMS_ITS ---
Author Organization [facility] Address [address] [place] [address] Care Team Providers Care Geometrician Name Role Phone Po Any CUI Primary Care Provider Unavailfaith e Darrian Khan Unavailable [phone] XUAN FAULKNER Unavailable Unavailab le ALLERGIES Allergen [...] 05/16/2024 Encounters Encounter Location Date Provider Diagnosis [facility] [address] [place] [address] 05/16/2024 Darrian Khan Hx of adenomatous colonic [...] Provider Name:Darrian Khan , 11/20/2024 09:40:00 AM, [address] [place] [address], [address], [place], [address], Progress Notes * Examination Category Sub-Category Detail [...]
--- OUTSIDE RECORDS SUMMARY | 2024-07-07 15:49 | XMS_ITS ---
Author Organization [facility] Address [address] [place] [address] Care Team Providers Care Cellophane Casting Machine Repairer Name Role Phone Any Jackson MD Primary Care Provider UnavailDarrian Lockett Unavailable [phone] XUAN FAULKNER Unavailable Unavailab le REASON FOR VISIT QUESTIONS Encounters Encounter Location Date Provider Diagnosis [facility] [address] [place] [address] 03/13/2024 Darrian Khan Elevated liver function tests R94.5 ASSESSMENTS Encounter Date Diagnosis Assessment Notes Treatment Notes Treatment Clinical Notes 03/13/2024 Elevated liver function tests (ICD-10 - R94.5) PLAN OF TREATMENT Pending Test Test Name Order Date LIVER PROFILE 03/13/2024 Next Appt Details Provider Name:Darrian Khan , 11/20/2024 09:40:00 AM, [address] [place] [address], [address], [place], [address],
--- OUTSIDE RECORDS SUMMARY | 2024-07-07 15:49 | XMS_ITS | Patient Health Record ---
Author Organization [facility] Address [address] [place] [address] Care Team Providers Care Orthotic/Prosthetic Practitioner Name Role Phone Po Any CUI Primary Care Provider UnavailDarrian Lockett Unavailable [phone] XUAN SHEARER Unavailable Unavailab le ALLERGIES Allergen (clinical drug ingredient) Drug/Non Drug Allergy documented on EMR Reaction Allergy Type Onset Date Status doxycycline Doxycycline jaundice Drug Allergy Act eva amoxicillin Amoxicillin jaundice Drug Allergy Act eva RESULTS Component Value Reference Range Notes Complete Blood Count no Diff Reviewed date:02/22/2024 05:51:08 PM Interpretation: Performing Lab:[facility], [address] [place] [address] Notes/Report: White Blood Count 5.7 4.8-10.8 X10*3/uL [...] INR Reviewed date:02/22/2024 05:55:38 PM Interpretation: Performing Lab:[facility], [address] [place] [address] Notes/Report: Prothrombin Time 12.9 11.1-13.3 SEC INTERNATIONAL [...] Panel Reviewed date:02/22/2024 06:05:52 PM Interpretation: Performing Lab:[facility], [address] [place] [address] Notes/Report: Bilirubin Total 4.7 0.0-1.0 mg/dL Bilirubin Direct 3.4 0.0-0.5 mg/dL Aspartate Amino Transferase 52 5-37 U/L Alanine Aminotransferase 77 0-40 U/L Total Protein 7.7 6.5-8.0 g/dL Albumin Level 4.0 3.5-5.0 g/dL Alkaline Phosphatase 141 39-117 U/L IRON PROFILE Reviewed date:02/22/2024 05:55:56 PM Interpretation: Performing Lab:[facility], [address] [place] [address] Notes/Report: Iron 127 45-160 mcg/dL Total Iron Binding Capacity 291 228-428 mcg/d L Percent Iron Saturation 44 15-50 % Unsaturated Iron Binding 164 Ferritin Reviewed date:02/22/2024 05:56:05 PM Interpretation: Performing Lab:[address] [address] Notes/Report: Ferritin 366 20-250 ng/mL SANDY Reflex Titer and Pattern Reviewed date:02/25/2024 10:47:25 PM Interpretation: Performing Lab:[address] [address] Notes/Report: Anti Nuclear Antibody Screen NEGATIVE NEGATIVE [...] Negative International Consensus on SANDY Patterns (https://doi.org/10.1515/c pir-0860-3951) For additional information, please refer to http://education.[employer].Fortumo/faq/UCQ570 (This link is being provided for informational/ educational purposes only.) THIS TEST WAS PERFORMED AT: [facility] [address] [place] [phone] AMILCAR ZABALA MD Anti Nuclear Antibody Titer TNP Anti Nuclear Antibody Pattern TNP SANDY Titer 2 TNP SANDY Pattern 2 TNP SANDY Titer 3 TNP SANDY Pattern 3 TNP Mitochondrial Antibody Reviewed date:03/03/2024 11:29:34 PM Interpretation: Performing Lab:[address] [address] Notes/Report: Mitochondrial Antibodies NEGATIVE NEGATIVE The specimen was negative for cytoplasmic antibodies, however additional staining was observed suggesting the presence of Antinuclear Antibodies. Consider requesting order code 249, SANDY Screen, IFA with Reflex to Titer and Pattern, or order code [id number], SANDY Screen, IFA w/reflex Titer/Pattern, and Reflex to Multiplex 11 Ab [place], if clinically indicated. THIS TEST WAS PERFORMED AT: [facility] [address] [place] [address] AMILCAR ZABALA MD Mitochondrial Ab Titer TNP Smooth Muscle Antibody Reviewed date:03/03/2024 11:29:41 PM Interpretation: Performing Lab:[address] [address] Notes/Report: Smooth Muscle Antibody <20 <20 U [...] type 1. THIS TEST WAS PERFORMED AT: [facility] [address] [place] [address] ANGEL VIDAL MD,PHD Hepatitis A,B,C Profile Reviewed date:02/22/2024 05:56:33 PM Interpretation: Performing Lab:[address] [address] Notes/Report: Hepatitis A Antibody IgM Nonreactive Nonreactive [...] Ammonia Reviewed date:02/29/2024 07:55:27 PM Interpretation: Performing Lab:[address] [address] Notes/Report: Ammonia 28 13-55 umol/L Complete Blood Count Auto Di ff Reviewed date:02/29/2024 07:54:38 PM Interpretation: Performing Lab:[address] [address] Notes/Report: White Blood Count 6.5 4.8-10.8 X10*3/uL [...] Time Reviewed date:02/29/2024 07:54:46 PM Interpretation: Performing Lab:[address] [address] Notes/Report: Partial Thromboplastin Time 39.0 26.0-36.8 SEC For information regarding the monitoring of direct thrombin inhibitors, please refer to Pharmacy. Liver Panel Reviewed date:03/02/2024 11:08:18 PM Interpretation: Performing Lab:[address] [address] Notes/Report: Bilirubin Total 2.5 0.0-1.0 mg/dL Bilirubin Direct 1.6 0.0-0.5 mg/dL Aspartate Amino Transferase 58 5-37 U/L Alanine Aminotransferase 87 0-40 U/L Total Protein 7.4 6.5-8.0 g/dL Albumin Level 3.8 3.5-5.0 g/dL Alkaline Phosphatase 111 39-117 U/L Basic Metabolic Panel Reviewed date:02/29/2024 07:55:19 PM Interpretation: Performing Lab:[address] [address] Notes/Report: Sodium 140 135-145 mmol/L Potassium 4.6 3.3-5.1 mmol/L Chloride 104 96-108 mmol/L Carbon Dioxide 30 22-29 mmol/L Anion Gap 11 12-20 Blood Urea Nitrogen 15 9-16 mg/dL Creatinine 0.96 0.5-1.4 mg/dL Estimated Glomerular Filt Rate > 60 NOTE: For -[place] Citizen individuals, multiply the result by 1.210. Chronic Kidney Disease: Estimated GFR < 60 mL/min/1.73m2 Severe Kidney Disease: Estimated GFR < 15 mL/min/1.73m2 Glucose Random 98 60-115 mg/dL Calcium 10.1 8.4-10.2 mg/dL Liver Panel Reviewed date:03/12/2024 07:33:03 AM Interpretation: Performing Lab:[facility], [address] [place] [address] Notes/Report: Bilirubin Total 1.3 0.0-1.0 mg/dL Bilirubin Direct 0.8 0.0-0.5 mg/dL Aspartate Amino Transferase 37 5-37 U/L Alanine Aminotransferase 71 0-40 U/L Total Protein 7.7 6.5-8.0 g/dL Albumin Level 4.1 3.5-5.0 g/dL Alkaline Phosphatase 90 39-117 U/L Blood Urea Nitrogen Reviewed date:03/10/2024 11:20:43 PM Interpretation: Performing Lab:[facility], [address] [place] [address] Notes/Report: Blood Urea Nitrogen 15 9-16 mg/dL Creatinine Reviewed date:03/10/2024 11:20:50 PM Interpretation: Performing Lab:[facility], [address] [place] [address] Notes/Report: Creatinine 0.86 0.5-1.4 mg/dL Estimated Glomerular Filt Rate > 60 NOTE: For -[place] Citizen individuals, multiply the result by 1.210. Chronic Kidney Disease: Estimated GFR < 60 mL/min/1.73m2 Severe Kidney Disease: Estimated GFR < 15 mL/min/1.73m2 Liver Panel Reviewed date:03/31/2024 08:49:38 AM Interpretation: Performing Lab:[facility], [address] [place] [address] Notes/Report: Bilirubin Total 1.1 0.0-1.0 mg/dL Bilirubin [...] malignant neoplasm of colon (Z12.11) Active confirmed 798180174 Problem Elevated LFTs (R79.89) Active confirmed 906293924 Problem Preprocedural examination (Z01.818) Active confirmed [id number] Problem Iron excess (E83.19) Active confirmed 90336904 Problem Jaundice (R17) Active confirmed Jaundic e (90925445) Problem Hx of adenomatous colonic polyps (Z86.010) Active confirmed 680497594 Problem Pruritus (L29.9) Active confirmed Pruri tus (574737046) Problem Elevated liver function tests (R94.5) Active confirmed Elevated liver enzymes level (133882175) VITAL SIGNS Blood pressure diastolic 00 mm Hg 05/16/2024 Height 66 in 05/16/2024 Blood pressure systolic 00 mm Hg 05/16/2024 Weight 205 lbs 05/16/2024 BMI 33.08 kg/m2 05/16/2024 Encounters Encounter Location Date Provider Diagnosis [facility] [address] [place] [address] 02/26/2024 Darrian Khan Jaundice R17 [address]9 [facility] [address] [place] [address] 05/16/2024 Darrian Khan Hx of adenomatous colonic polyps Z86.010 ; Jaundice R17 and Encounter for screening for malignant neoplasm of colon Z12.11 [place] [address] 02/19/2024 Darrian Khan Elevated LFTs R79.89 [facility] [address] [place] [address] 03/02/2024 Darrian Khan Elevated liver function tests R94.5 [facility] [place] [address] 03/13/2024 Darrian Khan Elevated liver function tests [...] PROFILE 06/14/2022 LIVER PROFILE 06/21/2022 LIVER PROFILE 06/16/2022 LIVER PROFILE 08/11/2022 LIVER PROFILE 03/02/2024 LIVER PROFILE 06/29/2022 LIVER PROFILE 03/13/2024 LIVER PROFILE 08/11/2022 LIVER PROFILE 02/26/2024 LIVER PROFILE 06/14/2022 LIVER PROFILE 02/19/2024 IRON + IBC (FE) 08/11/2022 IRON + IBC (FE) 02/19/2024 IRON + IBC (FE) 06/16/2022 IRON + IBC (FE) 08/11/2022 FERRITIN 02/19/2024 CRP 06/16/2022 CBC w DIFF 06/14/2022 CBC w DIFF 02/26/2024 CBC w/o DIFF 02/19/2024 SED RATE (ESR) 06/16/2022 PROTHROMBIN TIME (PT, INR) 06/16/2022 PROTHROMBIN TIME (PT, INR) 02/26/2024 PROTHROMBIN TIME (PT, INR) 06/21/2022 PROTHROMBIN TIME (PT, INR) 02/19/2024 HEPATITIS A,B,C PROFILE 06/16/2022 HEPATITIS A,B,C PROFILE 02/19/2024 [id number] (A1A) 06/16/2022 MITOCHONDRIAL AB 02/19/2024 SMOOTH MUSCLE ANTIBODIES 02/19/2024 MRI ABD W&WO CONTRAST 06/16/2022 FLUOR. ANTINUCLEAR AB SCREEN ([facility]) 12/2023 FLUOR. ANTINUCLEAR AB SCREEN ([facility]) 08/2021 Prothrombin Time INR 06/29/2022 Ferritin 08/11/2022 Ferritin 08/11/2022 Future Test Test Name Order Date COLONOSCOPY 01/27/2014 COLONOSCOPY 11/20/2019 Next Appt Details Provider Name:Darrian Allen Khan , 11/20/2024 09:40:00 AM, [address] [place] [address], [facility] [address], [place], [address], Insurance Providers Payer Name Payer Address Payer Phone Subscriber Number Group Number Insured Name Patient Relationship to Insured Coverage Start Date Coverage End Date [facility] [address] [address] [place] [address] [id number] GENEVIEVE ARNOLD Self - patient is the insured MEDICAL (GENERAL) HISTORY Medical History History ICD Code Hyperlipidemia Colonoscopy 10-12-2008--1 tub ular adenoma removed; colonoscopy 03/2014 with 2 small tubular adenomas EGD [place] [address] Walter-- negative except for mild reflux-there was no Hough's esophagus nor significant esophagitis Irregular heartbeat--Atrial fibrillation/PVC's--Dr. Shearer. Had an ablation in 04/[address] Brownlee Denies VA,DM,CVA,Lung disease,renal dise ase Bladder cancer 06/2013--has periodic [...] Knee replacement-partial--- left 08/2019 Right big toe IVX-xoibksete-Wa. Mazzucco 2020
--- OUTSIDE RECORDS SUMMARY | 2024-07-07 15:49 | XMS_ITS ---
Author Organization [facility] Address [address] [address] Care Team Providers Care Groundwater Programs Director Name Role Phone aliyahyanet Primary Care Provider MARIBEL Hassan [phone] REASON FOR VISIT RMV Placard/Plate form Encounters Encounter Location Date Provider Diagnosis [facility] [address] [facility] [address] [place] [address] 03/12/2023 MARIBEL POWELL Plan Of Treatment No Information Progress Notes * Volodymyr ARNOLDDOB:[birth year] (73 yo M)Acc No.[id number]:03/12/2023 Patient:?Volodymyr Arnold :1950???Age:73 Y???Sex:Male Address:[place] [address] * true * Date:? Generated for Printi ng/Fabenjaming/eTransmitting on:?07/07/2024 03:48 PM EST
--- OUTSIDE RECORDS SUMMARY | 2024-07-07 15:49 | XMS_ITS ---
Author Organization [facility] Address [address] [place] [address] Care Team Providers Care Plate Shear Operator Name Role Phone Any Jackson MD Primary Care Provider UnavailDarrian Lockett Unavailable [phone] XUAN FAULKNER Unavailable Unavailab le REASON FOR VISIT fyi update. vertigo PROBLEMS Problem Type ICD Code Onset Dates Problem Status W/U Status Risk SNOMED Code Notes Problem Elevated liver function tests (R94.5) Active confirmed Elevated liver enzymes level (075862612) Encounters Encounter Location Date Provider Diagnosis [facility] [address] [place] [address] 03/02/2024 Darrian Khan Elevated liver function tests R94.5 ASSESSMENTS Encounter Date Diagnosis Assessment Notes Treatment Notes Treatment Clinical Notes 03/02/2024 Elevated liver function tests (ICD-10 - R94.5) PLAN OF TREATMENT Pending Test Test Name Order Date LIVER PROFILE 03/02/2024 Next Appt Details Provider Name:Darrian Khan , 11/20/2024 09:40:00 AM, [address], [address], [place], [address],
--- OUTSIDE RECORDS SUMMARY | 2024-07-07 15:49 | XMS_ITS | Patient Health Record ---
Author Organization [facility] Address [address] [facility] [address] [place] [address] Care Team Providers Care Senior Quantity Surveyor Name Role Phone yanet ly Primary Care Provider Unavailabl e Allergies Allergen (clinical drug ingredient) Drug/Non Drug Allergy documented on EMR Reaction Allergy Type Onset Date Status dronedarone Multaq rash Drug Allergy Activ e Reason For Referral No Information Medications Medication SIG (Take, Route, Frequency, Duration) Notes Start Date End Date Status Ipratropium [place] 0.03 % 2 sprays in e ach [...] with food Orally Twice a day Active Problems Problem Type SNOMED Code ICD Code Onset Dates Problem Status W/U Status Risk Notes Problem 334786146 Hallux rigidus o f right foot (M20.21) Active confirmed Problem 415595719 Anticoagulant long-term use (Z79.01) Active confirmed Plan Of Treatment Pending Test Test Name Order Date X ray : Foot, right 3v 03/30/2022 X ray : Foot, right 3v 01/18/2022 X ray : Foot, right 3v 2022 X ray : Foot, right 3v 11/11/2021 X ray : Foot, right 3v 09/28/2022 DRAIN/INJECT, SMALL JOINT/BURSA 09/29/19 DRAIN/INJECT, SMALL JOINT/BURSA 12/14/19 Insurance Providers Payer Name Payer Address Payer Phone Subscriber Number Group Number Insured Name Patient Relationship to Insured Coverage Start Date Coverage End Date [employer] Medicare Adv-09176 [address] [address] [place] [phone] [id number] Volodymyr Richards Self - patient is the insured Medications Administered Medication Instructions Date of Administration Dosage Notes Dexamethasone 09/28/2022 0.5 mL Dexamethasone 12/13/2022 0.5 mL Kenalog 09/28/2022 0.5 mL Kenalog 12/13/2022 0.5 mL Medical (General) History Medical History History ICD Code bladder cancer erectile dysfunction GERD (gastroesophageal reflux disease) hypercholesterolemia obesity (BMI 30-39.9) obstructive sleep apnea SVT (supraventricular tachyc ardia) seen cardiology 11/2019 and workup was negative Intestinal Blockage A-FIB Attack + COVID 01/2022 COVID vaccinated X 2 (Pfizer) and 3 franco ters ([employer]) COPD Jaundice X 1 month E. Coli [...]
[2024-07-07 17:31] LABS: Appearance Urine Clear; Color Urine Yellow; Glucose Urine UA Negative (Negative); Leukocyte Esterase Urine Trace (Negative); Nitrite Urine Negative (Negative); Specific Gravity - Urine 1.015 (1.005-1.025); UMIC TRIGGER UA YES; Urine Blood Moderate (2+) (Negative); Urine Ketones Negative (Negative); Urine Protein Trace mg/dL (Neg-Trace)
[2024-07-07 17:38] LABS: Bacteria Urine None Seen (None Seen); Hyaline Casts Urine 0-2 /LPF (0-2); RBC Urine >20 /HPF (0-2); Squamous Epithelial Cell Urine 0-2 /HPF (0-2)
== END 2024-07-07 15:46 | disposition home or self-care (01) ==
LOC: HO.WFDLDS 15:45
PROVIDERS: Visit Provider Urology
DX: N39.0 Urinary tract infection, site not specified (principal)
CPT/HCPCS: 81001; 87086

== ENCOUNTER 2024-07-24 12:53 | Outpatient (AMB) | payer OTHER, SELFPAY ==
--- NOTE | 2024-07-24 12:54 | A.OFFVIS_ITS ---
Intake Visit Reasons: Post-op- Bladder bx, fulguration Intake Note: Patient is present for post-op bladder bx, fulguration Urology Medication:none Antibiotic Allergy:amoxicillin,penicillins Blood Thinner:apixaban Electronic Components Assembler Required: No Allergies dronedarone [From Multaq] Allergy (Mild, Verified 07/24/24 12:55) Rash amoxicillin [From Augmentin] Allergy (Verified 07/24/24 12:55) liver failure clavulanic acid [From Augmentin] Allergy (Verified 07/24/24 12:55) liver failure Penicillins Adverse Reaction (Intermediate, Verified 07/24/24 12:55) Unknown HPI Comments Details: Volodymyr is a very pleasant male. He is a patient of Dr. Jackson. He is seen for the following urologic conditions - bladder cancer - urinary tract infection Telemedicine Evaluation 15 min Consultation [employer] Tonia Video Biopsy results showed inflammation Single dose of mitomycin-C cytarabine given at time Would plan for 2 more doses as boost Did happen to have UTI 2 weeks postprocedure which responded to clindamycin given for tooth infection Clindamycin given and instructions to take 1 tablet before and after boost treatment [place] -Dome patch had been fulgurated 06/07 Current Cycle induction, 12/06 3 week boost gemcitabine/docetaxel Bladder Cancer low-grade superficial recurrent T1 07/05 CIS on biopsy [place] [facility] - Dr Hugo - [facility] Initial diagnosis superficial bladder cancer, recurrent Interventions - TURBT [place] 06/2021 - 06/06 TURBT CIS with MMC treatment - 03/07 fulguration bladder dome with 3 week MMC Cytarabine Adjuvant therapy - BCG induction x2, completed induction Aug 2021 - Gemcitabine - 03/07 2 week MMC with Cytarabine boost Check cystoscopy - 01/03 BCG changes with mucosal erythema patches - 11/04 no evidence of recurrent disease - 04/06 posterior wall patch - TURBT CIS - 10/05 NAD, 01/05 bladder dome mucosal changes Cytology - 11/04 rare atypical, 04/06 suspicious, 10/05 rare atypical, 06/07 atypical Risk factors - 40 year pack per day smoking history - Agent Perry exposure Therapeutic plan - three-month follow-up cysto Urinary tract infection 08/07 E coli ESBL Trouble with recurrent urinary tract infections Culture shows ESBL E coli resistant to most oral antibiotics COUNTS INCLUDE 234 BEDS AT THE [facility] Medical History Bladder cancer Atrial fibrillation SVT (supraventricular tachycardia) LBBB (left bundle branch block) PVC (premature ventricular contraction) Hypercholesterolemia Asthma COPD (chronic obstructive pulmonary disease) Jaundice ANALY on CPAP Cough Personal history of nicotine dependence History of COVID-19 History of small bowel obstruction GERD (gastroesophageal reflux disease) Erectile dysfunction Obesity (BMI 30-39.9) Surgical History History of foot surgery (~2021) History of laparotomy (~2020) History of arthroplasty of right knee (~2020) History of meniscectomy of right knee (~2011) History of cataract surgery (~2020) History of appendectomy History of arthroplasty of left knee (~2019) History of meniscectomy of left knee (~2018) History of bladder surgery Hx of transurethral destruction of bladder lesion Family History Father Lung cancer Mother History of breast cancer Sister Multiple myeloma Other Cough Social History Household Members: Spouse Housing: House Are you a primary tree care foreman to a significant other at home: No Do you presently have visiting nurse or other home services: No Alcohol intake: former Patient Tobacco Use Status: Former Tobacco user Tobacco use type: Cigarette Years Smoked: (former smoker - onset 14yo, 1ppd x 46yrs, 45pyh, quit 2009) e-Cigarette/Vaping Use: Never Used Second Hand Smoke Exposure: No Advance Directives Date on File: 02/14/21 service: Yes ([employer] - served in [facility]) Current occupational status: retired Current occupational exposures/hazards: Yes (was exposed to Agent Perry while serving in [employer]) Cognitive needs: No Hearing needs: Yes (hearing aide) Vision needs: No Review of Systems Const All systems reviewed & are unremarkable except as noted in HPI and below Reports no additional complaints Resp Reports no additional complaints GI Reports no additional complaints Reports as per HPI Musc Reports no additional complaints Physical Exam Telemedicine evaluation Appropriate responses Regular breathing rate and rhythm HEENT Head: Yes normal to inspection Ears: hearing grossly normal bilaterally Eyes General: appearance normal, both eyes and all related structures Neck Neck: Yes normal visual inspection Chest Chest palpation & inspection: normal inspection of the chest Resp Effort & Inspection: normal respiratory effort and able to speak in complete sentences Telehealth Telehealth Telehealth Platform: [employer] Location of provider rendering services: practice address Location of patient: address on file Patient Identification confirmed using: Name, : Yes Telehealth method: video Patient verbally consented to treatment: Yes Patient verbally consented to billing insurance company: Yes Patient informed of any privacy concerns related to visit: Yes Minutes spent on Phone/Video with Pt.: 15 Assessment & Plan Assessment & Plan (1) Bladder cancer: Comment: TURBT 06/28 pTaLG, 06/29 Dr Mckeon pTaLG, 05/2016 BCG, 06/04 [place] pT1LG, 07/05 [place] pTaLG BCG induction Fulguration and mitomycin-C May 2022 TURBT May 2022 CIS, bladder surgery 07/2023 Code(s): C67.9 - Malignant neoplasm of bladder, unspecified Category: Medical (2) Chronic UTI (urinary tract infection): Code(s): N39.0 - Urinary tract infection, site not specified Category: Medical Plan Two week boost mitomycin-C with cytarabine Check cystoscopy 4 months office Medications: New clindamycin HCl 300 mg PO BID 14 caps 0RF 7 days N39.0 - Urinary tract infection, site not specified Patient Instructions: Imaging studies, laboratory and physical exam results were discussed and reviewed in detail. No major barriers to patient understanding were identified. An opportunity to ask questions regarding the treatment plan was provided. All questions were answered. The patient expressed understanding and agreement with the above treatment plan. The patient is aware they should contact our office by phone for worsening of their current condition or the appearance of new urologic symptoms. Compliance is encouraged with any medications and followup testing that is ordered. It is a privilege to participate in the urologic care of your patient. If you have any questions or concerns regarding treatment for the above conditions, or other urologic issues, please do not hesitate to contact me. The office telephone contact is [phone]. This note is constructed using voice recognition software. While every effort has been made to ensure accuracy safety relief valve technician errors may have been included. Yours sincerely, Dr Darrin Alicea MD, [facility] - Urology Providers of Expert, Compassionate Care for the Genitourinary System Coding Level of Care Code Tele Est Pt Level 3 (88236) Diagnoses Bladder cancer C67.9 Chronic UTI (urinary tract infection) N39.0
--- OUTSIDE RECORDS SUMMARY | 2024-07-24 14:11 | XMS_ITS | Continuity of Care Document ---
Author Name [facility] Organization [facility] Care Team Providers Care Slitting Machine Operator Name Role Phone [facility] Unavailable Unavailable Problems Combined list of problems [...] HCS Exposure to potentially hazardous substance (SCT [id number]) Active Condition Oct 18 4 Entered By: LIUDMILA SUBRAMANIAN Comment: Entered automatically through HERMINIA Problem List documentation program [facility] Exposure to potentially hazardous substance (SCT [id number]) Active Condition Apr 15 4 Entered By: [...] EMMANUEL JI Comment: DR Corrie BLANTON ( [facility]) - visit 12/11/18Ju2017 Entered By: EMMANUEL JI Comment: [place] - SEE FIELD OBSERVER WHEN IN [place] ( JUN THRU NOVEMBER )Apr 30, 2018 Entered By: EMMANUEL JI Comment: [facility] -December 12, 2018 Entered By: EMMANUEL JI Comment: [facility] ( [place] ( [facility]- DR Del Valle / Lenin [...] H90.3 Sensorineural hearing loss, bilateral Active Diagnosis [facility] Diagnosis: ICD-10-CM 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 [facility] Medications Combined list of outpatient medications from [...] G RESPIR ATORY (INHAL ATION) ACTIVE 04/18/2025 [id number] PERCY BULLOCK 2023 60 [facility] APIXABAN 5MG TAB TAKE ONE TABLET BY MOUTH EVERY 12 HOURS ORAL ACTIVE RA DARREN RODRIGUEZ 2021 [facility] APIXABAN 5MG TAB TAKE ONE TABLET BY MOUTH EVERY 12 HOURS ORAL ACTIVE AZARBSharyn RAZO 2023 [facility] ASPIRIN 81MG TAB,EC TAKE ONE TABLET BY MOUTH TWICE DAILY ORAL complet Mike Martinez 2018 [facility] CETIRIZINE HCL 10MG TAB TAKE ONE-HALF TABLET BY MOUTH EVERY DAY ORAL ACTIVE AZARBALSharyn 2023 [facility] DOCETAXEL INJ,CONC INJECT INTRAVEN OUSLY INTRAV ENOUS ACTIVE AZARBALJ KOTA 2023 [facility] DOCUSATE NA 250MG CAP TAKE 1 CAPSULE BY MOUTH EVERY DAY ORAL ACTIVE AZARBALSharyn 2023 [facility] FLUTICASONE 250MCG/SALM ETEROL 50MCG INHL,ORAL,D ISKUS,60 INHALE 1 PUFF BY MOUTH EVERY DAY ORAL ACTIVE AZARBALSharyn 2023 [facility] GEMCITABINE HCL INJ INJ INJECT 200 MG INTRAVEN OUSLY INTRAV ENOUS ACTIVE AZARBALSharyn ESCUDERO 2023 [facility] IPRATROPIUM BR 0.03% SOLN,SPRAY, NASAL 1 SPRAY INTO EACH NOSTRIL EVERY DAY NASAL ACTIVE AZAADANSharyn GUERRA2023 [facility] METOPROLOL SUCCINATE 100MG TAB,SA TAKE ONE-HALF TABLET BY MOUTH TWICE A DAY ORAL ACTIVE AZAADANSharyn GUERRA2023 [facility] METOPROLOL TARTRATE 50MG TAB TAKE ONE TABLET BY MOUTH TWICE DAILY ORAL ACTIVE PETROFF,S 2018 [facility] OMEPRAZOLE 20MG CAP,EC TAKE 1 CAPSULE BY MOUTH EVERY DAY ORAL ACTIVE AZARBALSharyn GUERRA2023 [facility] OMEPRAZOLE 20MG CAP,EC TAKE 1 CAPSULE BY MOUTH EVERY MORNING 30 MINUTES BEFORE BREAKFAS T ORAL ACTIVE PETROFF,S 2018 [facility] POLYETHYLEN E GLYCOL 3350 PWDR,ORAL TAKE 17 GM (ONE CAPFUL) BY MOUTH EVERY DAY ORAL ACTIVE MARGARETSharyn GUERRA2023 [facility] PREDNISONE 20MG TAB TAKE TWO TABLETS BY MOUTH ONCE DAILY COPD FLARE ORAL 05/11/2024 [id number] [facility] BULLOCK 2023 10 [facility] SIMVASTATIN 80MG TAB TAKE ONE-HALF TABLET BY MOUTH AT BEDTIME ORAL ACTIVE PETROFF,S 2018 [facility] SIMVASTATIN 80MG TAB TAKE ONE-HALF TABLET BY MOUTH AT BEDTIME ORAL ACTIVE CLAUDIAPEDRITODANNISharyn GUERRA2023 [facility] TIOTROPIUM 18MCG CAP,INHL,30 INSERT 1 CAPSULE INTO AEROLIZE R AND INHALE BY MOUTH EVERY DAY RESPIR ATORY (INHAL ATION) ACTIVE MARGARETSharyn 2023 [facility] Allergies, Adverse Reactions, Alerts Combined list of allergies from Department of Defense and Veterans Affairs facilities. It does not include entries that were removed or entered in error. Substance Category Reaction Severity Reaction type Status Date Reported Comments Source AMOXICILLIN Propensity to adverse reactions to drug (finding) Jaundice SEVERE active 4 [facility] CODEINE Propensity to adverse reactions to drug (finding) Nausea and vomiting active 4 [facility] MULTAQ Propensity to adverse reactions to drug (finding) Eruption [facility] Immunizations Combined list of available immunizations from the Department of Defense and Veterans Affairs facilities. Immunization Series Date Given Administered By Site Reaction Lot Number CVX Code Drug Tornado Chaser Status Comments Source INFLUENZA, HIGH-DOSE, TRIVALENT, PF 2023 ALEC BENTLEY RIGHT DELTO ID [id number] 135 complet ed [facility] RSV, BIVALENT, PROTEIN SUBUNIT RSVPREF, DILUENT RECONSTITUTED , 0.5 ML, PF 2023 MCALEC L LEFT DELTO ID [id number] 305 complet ed Sterile water diluent Lot #- [id number] 11/2024 [facility] RSV, RECOMBINANT, PROTEIN SUBUNIT RSVPREF, ADJUVANT RECONSTITUTED , 0.5 ML, PF 2022 303 complet ed [facility] INFLUENZA, HIGH-DOSE, QUADRIVALENT 2022 ALEC BENTLEY LEFT DELTO ID [id number] 197 complet ed [facility] INFLUENZA, UNSPECIFIED FORMULATION 2022 88 complet ed [facility] COVID-19 (PFIZER), MRNA, LNP-S, PF, 30 MCG/0.3 ML DOSE 2020 208 complet ed [facility] INFLUENZA, UNSPECIFIED FORMULATION 2020 88 complet ed [facility] COVID-19 (PFIZER), MRNA, LNP-S, PF, 30 MCG/0.3 ML DOSE 2 2020 208 complet ed [facility] COVID-19 (PFIZER), MRNA, LNP-S, PF, 30 MCG/0.3 ML DOSE 1 2020 208 complet ed [place] ZOSTER RECOMBINANT 1 2018 187 complet ed [facility] ZOSTER RECOMBINANT 1 2018 187 complet ed [facility] INFLUENZA, TRIVALENT, ADJUVANTED 2018 168 complet ed Site: Left Deltoid [facility] INFLUENZA, SEASONAL, INJECTABLE 2017 141 complet ed Site: Left Deltoid [facility] INFLUENZA, SEASONAL, INJECTABLE 2016 141 complet ed [facility] PNEUMOCOCCAL CONJUGATE PCV 13 2015 133 complet ed [facility] [place] PNEUMOCOCCAL POLYSACCHARID E PPV23 2014 33 complet ed [facility] TDAP 2014 115 complet ed [facility] [place] Vital Signs Combined list of inpatient and outpatient Vital Signs from Department of Defense and Veterans Affairs, ranging from 12 months to all on record, depending upon the facility. Vital Sign Value Date Comments Source SYSTOLIC BLOOD PRESSURE 125 04/11/20 24 09:48:39 [facility] DIASTOLIC BLOOD PRESSURE 80 024 09:48:39 [facility] PULSE OXIMETRY 94 04/11/2024 09:48:39 [facility] WEIGHT 208.2 04/11/2024 09:48:39 [facility] BMI 34kg/m2 04/11/2024 09:48:39 [facility] PAIN 1 04/11/2024 09:48:39 [facility] TEMPERATURE 97.5 04/11/2024 09:48:39 [facility] PULSE 68 04/11/2024 09:48:39 [facility] RESPIRATION 16 04/11/2024 09:48:39 [facility] SYSTOLIC BLOOD PRESSURE 129 09/24/19 24 09:24:42 [facility] DIASTOLIC BLOOD PRESSURE 86 024 09:24:42 [facility] PULSE OXIMETRY 97 09/24/2023 09:24:42 [facility] WEIGHT 206 09/24/2023 09:24:42 [facility] BMI 33kg/m2 09/24/2023 09:24:42 [facility] PAIN 3 09/24/2023 09:24:42 [facility] HEIGHT 66 09/24/2023 09:24:42 [facility] TEMPERATURE 98 09/24/2023 09:24:42 [facility] PULSE 65 09/24/2023 09:24:42 [facility] RESPIRATION 18 09/24/2023 09:24:42 [facility] Encounters Combined list of: 1) Encounters from Department of Veterans Affairs facilities going back up to thelast 18 months. 2) Encounters from the Department of Defense facilities going back up to 280 months. Location Location Details Encounter Type Encounter Number Reason For Visit Attending Provider ADM Date DC Date Status Disposition Source [facility] Outpatient Encounter [id number] 04/09 [facility] [place] [facility] OFFICE O/P EST MOD 30-39 MIN [id number] Diagnos is: ICD-10- CM I48.91 Unspeci fied atrial fibrill ation<b r/> Corrie BULLOCK 04[place]09 [place] [facility] Outpatient Encounter [id number] 06/05 [facility] Outpatient Encounter [id number] 09/19 [facility] Outpatient Encounter [id number] 09/23 [facility] OFFICE O/P NEW [place] 60 MIN [id number] Diagnos is: ICD-10- CM D09.0 Carcino ma in situ of bladder
LYNNETTE ROBLES 09/23 [facility] TARGETED CASE MANAGEMENT [id number] KARELY ARANA 09/25 [facility] [place] [facility] HEARING AID FITTING/CH ECKING [id number] Diagnos is: ICD-10- CM Z46.1 Encount er for fitting and adjustm ent of hearing aid<br/ > Tiesha HERR 12/19 [facility] Outpatient Encounter [id number] 02/07 [facility] Outpatient Encounter [id number] 02/07 [facility] [place] [facility] HEARING AID REPAIR/MOD IFYING [id number] Diagnos is: ICD-10- CM H90.3 Sensori neural hearing loss, bilater al
ILANA PITTS UREN L 03/10 [facility] [place] [facility] OFFICE O/P EST MOD 30 MIN [id number] Diagnos is: ICD-10- CM I48.91 Unspeci fied atrial fibrill ation<b r/> Corrie BULLOCK 04/11 [facility] [place] [facility] HEARING SERVICE [id number] Diagnos is: ICD-10- CM Z46.1 Encount er for fitting and adjustm ent of hearing aid<br/ > JASMEETSREEDHARILANA UREN L 04/[address] [facility] [place] [facility] Outpatient Encounter [id number] 04/12 [facility] [place] [facility] SPECIAL SUPPLIES PHYS/QHP [id number] Diagnos is: ICD-10- CM J44.9 Chronic obstruc tive pulmona ry disease , unspeci fied
HOLLIE EDGAR E P 04/17 [facility] Outpatient Encounter [id number] 04/18 [facility] Outpatient Encounter [id number] 04/18 [facility] Outpatient Encounter [id number] 04/21 [facility] Outpatient Encounter [id number] 04/22 [facility] HEARING AID CHECK BOTH EARS [id number] Diagnos is: ICD-10- CM Z46.1 Encount er for fitting and adjustm ent of hearing aid<br/ > CHUY ORTIZ L 04/29 [facility] HEARING AID FITTING/CH ECKING [id number] Diagnos is: ICD-10- CM Z46.1 Encount er for fitting and adjustm ent of hearing aid<br/ > ILANA PITTS L 05/20 [facility] Outpatient Encounter [id number] 06/24 [facility] Social History Combined list of available smoking, tobacco, and other social history from Department of Defense and Veterans Affairs facilities. Social History Type Response Date Comment [facility] e Tobacco smoking status NHIS VA-TOBACCO FORMER USER 04/11/2024 [facility] History of tobacco use VA-TOBACCO QUIT 5 TO < 15 YRS 04/11/2024 [facility] History of tobacco use VA-TOBACCO FORMER USER 09/24/2023 [facility] History of tobacco use [facility]-TOBACCO FOR[facility] of tobacco use [facility]-TOBACCO FORMER USER 04/13/2022 [facility] History of tobacco use SC-TOBACCO FORMER USER 04/12/2021 [facility] History of tobacco use SC-TOBACCO QUIT 5 TO < 15 YRS 03/19/2020 [facility] History of tobacco use SC-TOBACCO QUIT 5 TO < 15 YRS 12/12/2018 [facility] History of tobacco use QUIT TOBACCO USE > 7 YEARS AGO 01/21/2018 [facility] History of tobacco use QUIT TOBACCO USE > 7 YEARS AGO 12/25/2016 [facility] Plan of Care List of future care activities from [facility] facilities. Additional future care activities may be listed in the Assessment and Plan section. Date/Time Care Activity Care Activity Detail Facili 08/25/2024 AMBULATORY - MEDICINE AMBULATORY - MEDICI [facility] 06/26/2024 Consult Order [facility] Cons Sponge Hooker's Choice [facility] Advance Directives List of completed, amended, or rescinded Advance Directives on record at [facility] facilities. An actual copy of the Directive is not included. Date Advance Directive Provider Source 05/23/2015 ADVANCE DIRECTIVE [facility]
--- OUTSIDE RECORDS SUMMARY | 2024-07-24 14:14 | XMS_ITS ---
Author Organization [facility] Address [address] [place] [address] Care Team Providers Care Tier And Detonator Name Role Phone Any Jackson MD Primary Care Provider UnavailDarrian Lockett Unavailable [phone] XUAN FAULKNER Unavailable Unavailab le REASON FOR VISIT QUESTIONS Encounters Encounter Location Date Provider Diagnosis [facility] [address] [place] [address] 03/13/2024 Darrian Khan Elevated liver function tests R94.5 ASSESSMENTS Encounter Date Diagnosis Assessment Notes Treatment Notes Treatment Clinical Notes 03/13/2024 Elevated liver function tests (ICD-10 - R94.5) PLAN OF TREATMENT Pending Test Test Name Order Date LIVER PROFILE 03/13/2024 Next Appt Details Provider Name:Darrian Khan , 11/20/2024 09:40:00 AM, [address] [place] [address], [address], [place], [address],
--- OUTSIDE RECORDS SUMMARY | 2024-07-24 14:14 | XMS_ITS ---
Author Organization [facility] Address [address] [place] [address] Care Team Providers Care Railroad Maintenance Clerk Name Role Phone Any Jackson MD Primary Care Provider UnavailDarrian Lockett Unavailable [phone] XUAN FAULKNER Unavailable Unavailab le REASON FOR VISIT fyi update. vertigo PROBLEMS Problem Type ICD Code Onset Dates Problem Status W/U Status Risk SNOMED Code Notes Problem Elevated liver function tests (R94.5) Active confirmed Elevated liver enzymes level ([id number]) Encounters Encounter Location Date Provider Diagnosis [facility] [address] [place] [address] 03/02/2024 Darrian Khan Elevated liver function tests R94.5 ASSESSMENTS Encounter Date Diagnosis Assessment Notes Treatment Notes Treatment Clinical Notes 03/02/2024 Elevated liver function tests (ICD-10 - R94.5) PLAN OF TREATMENT Pending Test Test Name Order Date LIVER PROFILE 03/02/2024 Next Appt Details Provider Name:Darrian Khan , 11/20/2024 09:40:00 AM, [address], [address], [place], [address],
--- OUTSIDE RECORDS SUMMARY | 2024-07-24 14:14 | XMS_ITS ---
Author Organization [facility] Address [address] [place] [address] Care Team Providers Care Automobile Drivers Name Role Phone Po Any CUI Primary Care Provider Unavailfaith e Darrian Khan Unavailable [phone] XUAN FAULKNER Unavailable Unavailab le ALLERGIES Allergen [...] Encounter Location Date Provider Diagnosis [facility] [address] [place] [address] 05/16/2024 Darrian Khan Hx of adenomatous colonic [...] Provider Name:Darrian Khan , 11/20/2024 09:40:00 AM, [address] [place] [address], [address], [place], [address], Progress Notes * Examination Category Sub-Category Detail [...]
--- OUTSIDE RECORDS SUMMARY | 2024-07-24 14:14 | XMS_ITS | Patient Health Record ---
Author Organization [facility] Address [address] [place] [address] Care Team Providers Care Foxing Painter Name Role Phone Po Any CUI Primary Care Provider UnavailDarrian Lockett Unavailable [phone] XUAN SHEARER Unavailable Unavailab le ALLERGIES Allergen (clinical drug ingredient) Drug/Non Drug Allergy documented on EMR Reaction Allergy Type Onset Date Status doxycycline Doxycycline jaundice Drug Allergy Act eva amoxicillin Amoxicillin jaundice Drug Allergy Act eva RESULTS Component Value Reference Range Notes Complete Blood Count no Diff Reviewed date:02/22/2024 05:51:08 PM Interpretation: Performing Lab:[facility], [address] [place] [phone] Notes/Report: White Blood Count 5.7 4.8-10.8 X10*3/uL [...] INR Reviewed date:02/22/2024 05:55:38 PM Interpretation: Performing Lab:[facility], [address] [place] [address] Notes/Report: Prothrombin Time 12.9 11.1-13.3 SEC INTERNATIONAL [...] Panel Reviewed date:02/22/2024 06:05:52 PM Interpretation: Performing Lab:[facility], [address] [place] [phone] Notes/Report: Bilirubin Total 4.7 0.0-1.0 mg/dL Bilirubin Direct 3.4 0.0-0.5 mg/dL Aspartate Amino Transferase 52 5-37 U/L Alanine Aminotransferase 77 0-40 U/L Total Protein 7.7 6.5-8.0 g/dL Albumin Level 4.0 3.5-5.0 g/dL Alkaline Phosphatase 141 39-117 U/L IRON PROFILE Reviewed date:02/22/2024 05:55:56 PM Interpretation: Performing Lab:[facility], [address] [place] [phone] Notes/Report: Iron 127 45-160 mcg/dL Total Iron Binding Capacity 291 228-428 mcg/d L Percent Iron Saturation 44 15-50 % Unsaturated Iron Binding 164 Ferritin Reviewed date:02/22/2024 05:56:05 PM Interpretation: Performing Lab:[address] [address] Notes/Report: Ferritin 366 20-250 ng/mL SANDY Reflex Titer and Pattern Reviewed date:02/25/2024 10:47:25 PM Interpretation: Performing Lab:[address] [address] Notes/Report: Anti Nuclear Antibody Screen NEGATIVE NEGATIVE [...] Negative International Consensus on SANDY Patterns (https://doi.org/10.1515/c zyn-6655-1518) For additional information, please refer to http://education.BandApp.Umbel/faq/QJP241 (This link is being provided for informational/ educational purposes only.) THIS TEST WAS PERFORMED AT: [employer] [address] [place] [phone] AMILCAR ZABALA MD Anti Nuclear Antibody Titer TNP Anti Nuclear Antibody Pattern TNP SANDY Titer 2 TNP SANDY Pattern 2 TNP SANDY Titer 3 TNP SANDY Pattern 3 TNP Mitochondrial Antibody Reviewed date:03/03/2024 11:29:34 PM Interpretation: Performing Lab:[address] [address] Notes/Report: Mitochondrial Antibodies NEGATIVE NEGATIVE The specimen was negative for cytoplasmic antibodies, however additional staining was observed suggesting the presence of Antinuclear Antibodies. Consider requesting order code 249, SANDY Screen, IFA with Reflex to Titer and Pattern, or order code 81035, SANDY Screen, IFA w/reflex Titer/Pattern, and Reflex to Multiplex 11 Ab [place], if clinically indicated. THIS TEST WAS PERFORMED AT: [facility] [address] [place] [phone] AMILCAR ZABALA MD Mitochondrial Ab Titer TNP Smooth Muscle Antibody Reviewed date:03/03/2024 11:29:41 PM Interpretation: Performing Lab:[address] [address] Notes/Report: Smooth Muscle Antibody <20 <20 U [...] type 1. THIS TEST WAS PERFORMED AT: [employer] [address] [place] [address] ANGEL VIDAL MD,PHD Hepatitis A,B,C Profile Reviewed date:02/22/2024 05:56:33 PM Interpretation: Performing Lab:[address] [address] Notes/Report: Hepatitis A Antibody IgM Nonreactive Nonreactive [...] Ammonia Reviewed date:02/29/2024 07:55:27 PM Interpretation: Performing Lab:[address] [address] Notes/Report: Ammonia 28 13-55 umol/L Complete Blood Count Auto Di ff Reviewed date:02/29/2024 07:54:38 PM Interpretation: Performing Lab:[address] [address] Notes/Report: White Blood Count 6.5 4.8-10.8 X10*3/uL [...] Time Reviewed date:02/29/2024 07:54:46 PM Interpretation: Performing Lab:[address] [address] Notes/Report: Partial Thromboplastin Time 39.0 26.0-36.8 SEC For information regarding the monitoring of direct thrombin inhibitors, please refer to Pharmacy. Liver Panel Reviewed date:03/02/2024 11:08:18 PM Interpretation: Performing Lab:[address] [address] Notes/Report: Bilirubin Total 2.5 0.0-1.0 mg/dL Bilirubin Direct 1.6 0.0-0.5 mg/dL Aspartate Amino Transferase 58 5-37 U/L Alanine Aminotransferase 87 0-40 U/L Total Protein 7.4 6.5-8.0 g/dL Albumin Level 3.8 3.5-5.0 g/dL Alkaline Phosphatase 111 39-117 U/L Basic Metabolic Panel Reviewed date:02/29/2024 07:55:19 PM Interpretation: Performing Lab:[address] [address] Notes/Report: Sodium 140 135-145 mmol/L Potassium 4.6 3.3-5.1 mmol/L Chloride 104 96-108 mmol/L Carbon Dioxide 30 22-29 mmol/L Anion Gap 11 12-20 Blood Urea Nitrogen 15 9-16 mg/dL Creatinine 0.96 0.5-1.4 mg/dL Estimated Glomerular Filt Rate > 60 NOTE: For -Tanz[place] individuals, multiply the result by 1.210. Chronic Kidney Disease: Estimated GFR < 60 mL/min/1.73m2 Severe Kidney Disease: Estimated GFR < 15 mL/min/1.73m2 Glucose Random 98 60-115 mg/dL Calcium 10.1 8.4-10.2 mg/dL Liver Panel Reviewed date:03/12/2024 07:33:03 AM Interpretation: Performing Lab:[facility], [address] [place] [address] Notes/Report: Bilirubin Total 1.3 0.0-1.0 mg/dL Bilirubin Direct 0.8 0.0-0.5 mg/dL Aspartate Amino Transferase 37 5-37 U/L Alanine Aminotransferase 71 0-40 U/L Total Protein 7.7 6.5-8.0 g/dL Albumin Level 4.1 3.5-5.0 g/dL Alkaline Phosphatase 90 39-117 U/L Blood Urea Nitrogen Reviewed date:03/10/2024 11:20:43 PM Interpretation: Performing Lab:[facility], [address] [place] [address] Notes/Report: Blood Urea Nitrogen 15 9-16 mg/dL Creatinine Reviewed date:03/10/2024 11:20:50 PM Interpretation: Performing Lab:[facility], [address] [place] [address] Notes/Report: Creatinine 0.86 0.5-1.4 mg/dL Estimated Glomerular Filt Rate > 60 NOTE: For -Tanzanian individuals, multiply the result by 1.210. Chronic Kidney Disease: Estimated GFR < 60 mL/min/1.73m2 Severe Kidney Disease: Estimated GFR < 15 mL/min/1.73m2 Liver Panel Reviewed date:03/31/2024 08:49:38 AM Interpretation: Performing Lab:[facility], [address] [place] [phone] Notes/Report: Bilirubin Total 1.1 0.0-1.0 mg/dL Bilirubin [...] malignant neoplasm of colon (Z12.11) Active confirmed 044692269 Problem Elevated LFTs (R79.89) Active confirmed 928516875 Problem Preprocedural examination (Z01.818) Active confirmed 851933357458884 Problem Iron excess (E83.19) Active confirmed 18343530 Problem Jaundice (R17) Active confirmed Jaundic e (34095715) Problem Hx of adenomatous colonic polyps (Z86.010) Active confirmed 531505487 Problem Pruritus (L29.9) Active confirmed Pruri tus (153031496) Problem Elevated liver function tests (R94.5) Active confirmed Elevated liver enzymes level (125087158) VITAL SIGNS Blood pressure diastolic 00 mm Hg 05/16/2024 Height 66 in 05/16/2024 Blood pressure systolic 00 mm Hg 05/16/2024 Weight 205 lbs 05/16/2024 BMI 33.08 kg/m2 05/16/2024 Encounters Encounter Location Date Provider Diagnosis [facility] [address] [place] [address] 02/26/2024 Darrian Khan Jaundice R17 and Pruritus L29.9 [facility] [address] [place] [address] 05/16/2024 Darrian Khan Hx of adenomatous colonic polyps Z86.010 ; Jaundice R17 and Encounter for screening for malignant neoplasm of colon Z12.11 [place] [address] 02/19/2024 Darrian Khan Elevated LFTs R79.89 [facility] [address] [place] [address] 03/02/2024 Darrian Khan Elevated liver function tests R94.5 [facility] [place] [address] 03/13/2024 Darrian Khan Elevated liver function tests [...] A,B,C PROFILE 06/16/2022 HEPATITIS A,B,C PROFILE 02/19/2024 [id number] (A1A) 06/16/2022 MITOCHONDRIAL AB 02/19/2024 SMOOTH MUSCLE ANTIBODIES 02/19/2024 MRI ABD W&WO CONTRAST 06/16/2022 FLUOR. ANTINUCLEAR AB SCREEN ([place]) 12/2023 FLUOR. ANTINUCLEAR AB SCREEN ([place]) 08/2021 Prothrombin Time INR 06/29/2022 Ferritin 08/11/2022 Ferritin 08/11/2022 Future Test Test Name Order Date COLONOSCOPY 01/27/2014 COLONOSCOPY 11/20/2019 Next Appt Details Provider Name:Darrian Allen Khan , 11/20/2024 09:40:00 AM, [address] [place] [address], [facility], [place], [address], Insurance Providers Payer Name Payer Address Payer Phone Subscriber Number Group Number Insured Name Patient Relationship to Insured Coverage Start Date Coverage End Date [facility] [address] [address] [place] [address] [id number] GENEVIEVE ARNOLD Self - patient is the insured MEDICAL (GENERAL) HISTORY Medical History History ICD Code Hyperlipidemia Colonoscopy 10-12-2008--1 tub ular adenoma removed; colonoscopy 03/2014 with 2 small tubular adenomas EGD [place] [address] Walter-- negative except for mild reflux-there was no Hough's esophagus nor significant esophagitis Irregular heartbeat--Atrial fibrillation/PVC's--Dr. Shearer. Had an ablation in 04/[address] Brownlee Denies AL,DM,CVA,Lung disease,renal dise ase Bladder cancer 06/2013--has periodic [...] Knee replacement-partial--- left 08/2019 Right big toe ICX-ebubagapv-Ur. Mazzucco 2020
--- OUTSIDE RECORDS SUMMARY | 2024-07-24 14:14 | XMS_ITS ---
Author Organization [facility] Address [address] [address] Care Team Providers Care Line Operator Name Role Phone aliyahyanet Primary Care Provider MARIBEL Hassan [phone] REASON FOR VISIT RMV Placard/Plate form Encounters Encounter Location Date Provider Diagnosis [facility] [address] [facility] [address] [place] [address] 03/12/2023 MARIBEL POWELL Plan Of Treatment No Information Progress Notes * Volodymyr ARNOLDDOB:[birth year] (73 yo M)Acc No.[id number]:03/12/2023 Patient:?Volodymyr Arnold :1950???Age:73 Y???Sex:Male Address:[place] [address] * true * Date:? Generated for Oliviai ara/Mylesg/eTransmitting on:?07/24/2024 02:14 PM EST
--- OUTSIDE RECORDS SUMMARY | 2024-07-24 14:14 | XMS_ITS ---
Author Organization [facility] Address [address] [address] Care Team Providers Care Newspaper Clipper Name Role Phone aliyahyanet Primary Care Provider MARIBEL Hassan [phone] REASON FOR VISIT Handicap placard extension Encounters Encounter Location Date Provider Diagnosis [facility] [address] [facility] [address] [place] [address] 03/12/2023 MARIBEL POWELL Plan Of Treatment No Information Progress Notes * Volodymyr ARNOLDDOB:[birth year] (73 yo M)Acc No.[id number]:03/12/2023 Patient:?Volodymyr Arnold :1950???Age:73 Y???Sex:Male Address: [place] [address] * true * Date:? Generated for Oliviai ara/Vito/eTransmitting on:?07/24/2024 02:14 PM EST
--- OUTSIDE RECORDS SUMMARY | 2024-07-24 14:14 | XMS_ITS | Patient Health Record ---
Author Organization [facility] Address [address] [facility] [address] [place] [address] Care Team Providers Care Java Software Name Role Phone yanet ly Primary Care Provider Unavailabl e Allergies Allergen (clinical drug ingredient) Drug/Non Drug Allergy documented on EMR Reaction Allergy Type Onset Date Status dronedarone Multaq rash Drug Allergy Activ e Reason For Referral No Information Medications Medication SIG (Take, Route, Frequency, Duration) Notes Start Date End Date Status Ipratropium [place] 0.03 % 2 sprays in e ach [...] Problem Status W/U Status Risk Notes Problem 955671414 Hallux rigidus o f right foot (M20.21) Active confirmed Problem 035809039 Anticoagulant long-term use (Z79.01) Active confirmed Plan [...] Date Coverage End Date [employer] Medicare Adv-[id number] [address] [address] [place] [address] [id number] Volodymyr Richards Self - patient is the [...] X 2 (Pfizer) and 3 franco ters (Metabolomx) COPD Jaundice X 1 month E. Coli [...]
== END 2024-07-24 13:16 | disposition home or self-care (01) ==
LOC: HO.HUSH 12:53
PROVIDERS: PCP Internal Medicine; Visit Provider Urology
DX: C67.9 Malignant neoplasm of bladder, unspecified (principal); N39.0 Urinary tract infection, site not specified
CPT/HCPCS: 98012

== ENCOUNTER 2024-08-25 11:30 | Outpatient (REF) | payer OTHER, SELFPAY ==
--- OUTSIDE RECORDS SUMMARY | 2024-08-25 12:47 | XMS_ITS ---
Author Organization [facility] Address [address] [place] [address] Care Team Providers Care Soft Iron Inspector Name Role Phone Po Any CUI Primary Care Provider Unavailfaith e Darrian Khan Unavailable [phone] XUAN FAULKNER Unavailable Unavailab le ALLERGIES Allergen [...] 05/16/2024 Encounters Encounter Location Date Provider Diagnosis [facility] [address] [place] [address] 05/16/2024 Darrian Khan Hx of adenomatous colonic [...] Provider Name:Darrian Khan , 11/20/2024 09:40:00 AM, [address] [place] [address], [address], [place], [address], Progress Notes * Examination Category Sub-Category Detail [...]
--- OUTSIDE RECORDS SUMMARY | 2024-08-25 12:47 | XMS_ITS ---
Author Organization [facility] Address [address] [place] [address] Care Team Providers Care Pomologist Name Role Phone Any Jackson MD Primary Care Provider UnavailDarrian Lockett Unavailable [phone] XUAN FAULKNER Unavailable Unavailab le REASON FOR VISIT QUESTIONS Encounters Encounter Location Date Provider Diagnosis [facility] [address] [facility] [address] [place] [address] 03/13/2024 Darrian Khan Elevated liver function tests R94.5 ASSESSMENTS Encounter Date Diagnosis Assessment Notes Treatment Notes Treatment Clinical Notes 03/13/2024 Elevated liver function tests (ICD-10 - R94.5) PLAN OF TREATMENT Pending Test Test Name Order Date LIVER PROFILE 03/13/2024 Next Appt Details Provider Name:Darrian Khan , 11/20/2024 09:40:00 AM, [address] [place] [address], [address], [place], [address],
--- OUTSIDE RECORDS SUMMARY | 2024-08-25 12:47 | XMS_ITS | Patient Health Record ---
Author Organization [facility] Address [address] [facility] [address] [place] [address] Care Team Providers Care Threat Monitoring Analyst Name Role Phone yanet ly Primary Care Provider Unavailabl e Allergies Allergen (clinical drug ingredient) Drug/Non Drug Allergy documented on EMR Reaction Allergy Type Onset Date Status dronedarone Multaq rash Drug Allergy Activ e Reason For Referral No Information Medications Medication SIG (Take, Route, Frequency, Duration) Notes Start Date End Date Status Ipratropium [place] 0.03 % 2 sprays in e ach [...] Problem Status W/U Status Risk Notes Problem 413434520 Hallux rigidus o f right foot (M20.21) Active confirmed Problem 466962776 Anticoagulant long-term use (Z79.01) Active confirmed Plan [...] Date Coverage End Date [employer] Medicare Adv-[id number] [address] [address] [place] [phone] [id number] Volodymyr Richards Self - patient is the [...] X 2 (Pfizer) and 3 franco ters (WeDidIt) COPD Jaundice X 1 month E. Coli [...]
--- OUTSIDE RECORDS SUMMARY | 2024-08-25 12:47 | XMS_ITS ---
Author Organization [facility] Address [address] [address] Care Team Providers Care Check Out Cashier Name Role Phone aliyahyanet Primary Care Provider MARIBEL Hassan [phone] REASON FOR VISIT RMV Placard/Plate form Encounters Encounter Location Date Provider Diagnosis [facility] [address] [facility] [address] [place] [address] 03/12/2023 MARIBEL POWELL Plan Of Treatment No Information Progress Notes * Volodymyr ARNOLDDOB:[birth year] (73 yo M)Acc No.[id number]:03/12/2023 Patient:?Volodymyr Arnold :1950???Age:73 Y???Sex:Male Address:[place] [address] * true * Date:? Generated for Oliviai ara/Mylesg/eTransmitting on:?08/25/2024 12:47 PM EST
--- OUTSIDE RECORDS SUMMARY | 2024-08-25 12:47 | XMS_ITS ---
Author Organization [facility] Address [address] [address] Care Team Providers Care Printed Circuit Board Panels Developer Name Role Phone aliyahyanet Primary Care Provider MARIBEL Hassan [phone] REASON FOR VISIT Handicap placard extension Encounters Encounter Location Date Provider Diagnosis [facility] [address] [facility] [address] [place] [address] 03/12/2023 MARIBEL POWELL Plan Of Treatment No Information Progress Notes * Volodymyr ARNOLDDOB:[birth year] (73 yo M)Acc No.[id number]:03/12/2023 Patient:?Volodymyr Arnold :1950???Age:73 Y???Sex:Male Address: [place] [address] * true * Date:? Generated for Oliviai ara/Vito/eTransmitting on:?08/25/2024 12:46 PM EST
--- OUTSIDE RECORDS SUMMARY | 2024-08-25 12:48 | XMS_ITS | Patient Health Record ---
Author Organization [facility] Address [address] [place] [address] Care Team Providers Care Epic Kaleidoscope Analyst Name Role Phone Po Any CUI Primary Care Provider UnavailDarrian Lockett Unavailable [phone] XUAN SHEARER Unavailable Unavailab le ALLERGIES Allergen (clinical drug ingredient) Drug/Non Drug Allergy documented on EMR Reaction Allergy Type Onset Date Status doxycycline Doxycycline jaundice Drug Allergy Act eva amoxicillin Amoxicillin jaundice Drug Allergy Act eva RESULTS Component Value Reference Range Notes Complete Blood Count no Diff Reviewed date:02/22/2024 05:51:08 PM Interpretation: Performing Lab:[facility], [address] [place] [phone] Notes/Report: White Blood Count 5.7 4.8-10.8 X10*3/uL [...] INR Reviewed date:02/22/2024 05:55:38 PM Interpretation: Performing Lab:[facility], [address] [place] [phone] Notes/Report: Prothrombin Time 12.9 11.1-13.3 SEC INTERNATIONAL [...] Panel Reviewed date:02/22/2024 06:05:52 PM Interpretation: Performing Lab:[facility], [address] [place] [phone] Notes/Report: Bilirubin Total 4.7 0.0-1.0 mg/dL Bilirubin Direct 3.4 0.0-0.5 mg/dL Aspartate Amino Transferase 52 5-37 U/L Alanine Aminotransferase 77 0-40 U/L Total Protein 7.7 6.5-8.0 g/dL Albumin Level 4.0 3.5-5.0 g/dL Alkaline Phosphatase 141 39-117 U/L IRON PROFILE Reviewed date:02/22/2024 05:55:56 PM Interpretation: Performing Lab:[facility], [address] [place] [phone] Notes/Report: Iron 127 45-160 mcg/dL Total Iron Binding Capacity 291 228-428 mcg/d L Percent Iron Saturation 44 15-50 % Unsaturated Iron Binding 164 Ferritin Reviewed date:02/22/2024 05:56:05 PM Interpretation: Performing Lab:[address] [phone] Notes/Report: Ferritin 366 20-250 ng/mL SANDY Reflex Titer and Pattern Reviewed date:02/25/2024 10:47:25 PM Interpretation: Performing Lab:[address] [phone] Notes/Report: Anti Nuclear Antibody Screen NEGATIVE NEGATIVE [...] Negative International Consensus on SANDY Patterns (https://doi.org/10.1515/c uyb-8751-5143) For additional information, please refer to http://education.[employer]/faq/EDE271 (This link is being provided for informational/ educational purposes only.) THIS TEST WAS PERFORMED AT: [facility] [address] [place] [phone] AMILCAR ZABALA MD Anti Nuclear Antibody Titer TNP Anti Nuclear Antibody Pattern TNP SANDY Titer 2 TNP SANDY Pattern 2 TNP SANDY Titer 3 TNP SANDY Pattern 3 TNP Mitochondrial Antibody Reviewed date:03/03/2024 11:29:34 PM Interpretation: Performing Lab:[address] [phone] Notes/Report: Mitochondrial Antibodies NEGATIVE NEGATIVE The specimen was negative for cytoplasmic antibodies, however additional staining was observed suggesting the presence of Antinuclear Antibodies. Consider requesting order code 249, SANDY Screen, IFA with Reflex to Titer and Pattern, or order code 88111, SANDY Screen, IFA w/reflex Titer/Pattern, and Reflex to Multiplex 11 Ab Funk, if clinically indicated. THIS TEST WAS PERFORMED AT: [facility] [address] [place] [phone] AMILCAR ZABALA MD Mitochondrial Ab Titer TNP Smooth Muscle Antibody Reviewed date:03/03/2024 11:29:41 PM Interpretation: Performing Lab:[address] [phone] Notes/Report: Smooth Muscle Antibody <20 <20 U [...] type 1. THIS TEST WAS PERFORMED AT: [employer] [address] [place] [address] ANGEL VIDAL MD,PHD Hepatitis A,B,C Profile Reviewed date:02/22/2024 05:56:33 PM Interpretation: Performing Lab:[address] [phone] Notes/Report: Hepatitis A Antibody IgM Nonreactive Nonreactive [...] Ammonia Reviewed date:02/29/2024 07:55:27 PM Interpretation: Performing Lab:[address] [phone] Notes/Report: Ammonia 28 13-55 umol/L Complete Blood Count Auto Di ff Reviewed date:02/29/2024 07:54:38 PM Interpretation: Performing Lab:[address] [phone] Notes/Report: White Blood Count 6.5 4.8-10.8 X10*3/uL [...] Time Reviewed date:02/29/2024 07:54:46 PM Interpretation: Performing Lab:[address] [phone] Notes/Report: Partial Thromboplastin Time 39.0 26.0-36.8 SEC For information regarding the monitoring of direct thrombin inhibitors, please refer to Pharmacy. Liver Panel Reviewed date:03/02/2024 11:08:18 PM Interpretation: Performing Lab:[address] [phone] Notes/Report: Bilirubin Total 2.5 0.0-1.0 mg/dL Bilirubin Direct 1.6 0.0-0.5 mg/dL Aspartate Amino Transferase 58 5-37 U/L Alanine Aminotransferase 87 0-40 U/L Total Protein 7.4 6.5-8.0 g/dL Albumin Level 3.8 3.5-5.0 g/dL Alkaline Phosphatase 111 39-117 U/L Basic Metabolic Panel Reviewed date:02/29/2024 07:55:19 PM Interpretation: Performing Lab:[address] [phone] Notes/Report: Sodium 140 135-145 mmol/L Potassium 4.6 3.3-5.1 mmol/L Chloride 104 96-108 mmol/L Carbon Dioxide 30 22-29 mmol/L Anion Gap 11 12-20 Blood Urea Nitrogen 15 9-16 mg/dL Creatinine 0.96 0.5-1.4 mg/dL Estimated Glomerular Filt Rate > 60 NOTE: For -[place] individuals, multiply the result by 1.210. Chronic Kidney Disease: Estimated GFR < 60 mL/min/1.73m2 Severe Kidney Disease: Estimated GFR < 15 mL/min/1.73m2 Glucose Random 98 60-115 mg/dL Calcium 10.1 8.4-10.2 mg/dL Liver Panel Reviewed date:03/12/2024 07:33:03 AM Interpretation: Performing Lab:[facility], [address] [place] [phone] Notes/Report: Bilirubin Total 1.3 0.0-1.0 mg/dL Bilirubin Direct 0.8 0.0-0.5 mg/dL Aspartate Amino Transferase 37 5-37 U/L Alanine Aminotransferase 71 0-40 U/L Total Protein 7.7 6.5-8.0 g/dL Albumin Level 4.1 3.5-5.0 g/dL Alkaline Phosphatase 90 39-117 U/L Blood Urea Nitrogen Reviewed date:03/10/2024 11:20:43 PM Interpretation: Performing Lab:[facility], [address] [place] [phone] Notes/Report: Blood Urea Nitrogen 15 9-16 mg/dL Creatinine Reviewed date:03/10/2024 11:20:50 PM Interpretation: Performing Lab:[facility], [address] [place] [phone] Notes/Report: Creatinine 0.86 0.5-1.4 mg/dL Estimated Glomerular Filt Rate > 60 NOTE: For -[place] individuals, multiply the result by 1.210. Chronic Kidney Disease: Estimated GFR < 60 mL/min/1.73m2 Severe Kidney Disease: Estimated GFR < 15 mL/min/1.73m2 Liver Panel Reviewed date:03/31/2024 08:49:38 AM Interpretation: Performing Lab:[facility], [address] [place] [phone] Notes/Report: Bilirubin Total 1.1 0.0-1.0 mg/dL Bilirubin [...] malignant neoplasm of colon (Z12.11) Active confirmed 349072670 Problem Elevated LFTs (R79.89) Active confirmed 688053571 Problem Preprocedural examination (Z01.818) Active confirmed [id number] Problem Iron excess (E83.19) Active confirmed 18442545 Problem Jaundice (R17) Active confirmed Jaundic e (71953212) Problem Hx of adenomatous colonic polyps (Z86.010) Active confirmed 194714810 Problem Pruritus (L29.9) Active confirmed Pruri tus (119026055) Problem Elevated liver function tests (R94.5) Active confirmed Elevated liver enzymes level (853691161) VITAL SIGNS Blood pressure diastolic 00 mm Hg 05/16/2024 Height 66 in 05/16/2024 Blood pressure systolic 00 mm Hg 05/16/2024 Weight 205 lbs 05/16/2024 BMI 33.08 kg/m2 05/16/2024 Encounters Encounter Location Date Provider Diagnosis [facility] [address] [place] [phone] 02/26/2024 Darrian Khan Jaundice R17 and Pruritus L29.9 [facility] [address] [place] [phone] 05/16/2024 Darrian Khan Hx of adenomatous colonic polyps Z86.010 ; Jaundice R17 and Encounter for screening for malignant neoplasm of colon Z12.11 Test [place] [address] 02/19/2024 Darrian Khan Elevated LFTs R79.89 [facility] [address] [place] [phone] 03/02/2024 Darrian Khan Elevated liver function tests R94.5 [facility] [place] [phone] 03/13/2024 Darrian Khan Elevated liver function tests [...] A,B,C PROFILE 06/16/2022 HEPATITIS A,B,C PROFILE 02/19/2024 [id number] (A1A) 06/16/2022 MITOCHONDRIAL AB 02/19/2024 SMOOTH MUSCLE ANTIBODIES 02/19/2024 MRI ABD W&WO CONTRAST 06/16/2022 FLUOR. ANTINUCLEAR AB SCREEN ([facility]) 12/2023 FLUOR. ANTINUCLEAR AB SCREEN ([facility]) 08/2021 Prothrombin Time INR 06/29/2022 Ferritin 08/11/2022 Ferritin 08/11/2022 Future Test Test Name Order Date COLONOSCOPY 01/27/2014 COLONOSCOPY 11/20/2019 Next Appt Details Provider Name:Darrian Allen Khan , 11/20/2024 09:40:00 AM, [address] [place] [address], [facility], [place], [address], Insurance Providers Payer Name Payer Address Payer Phone Subscriber Number Group Number Insured Name Patient Relationship to Insured Coverage Start Date Coverage End Date [facility] [address] [address] [place] [address] [id number] GENEVIEVE ARNOLD Self - patient is the insured MEDICAL (GENERAL) HISTORY Medical History History ICD Code Hyperlipidemia Colonoscopy 10-12-2008--1 tub ular adenoma removed; colonoscopy 03/2014 with 2 small tubular adenomas EGD in [address] Walter-- negative except for mild reflux-there was no Hough's esophagus nor significant esophagitis Irregular heartbeat--Atrial fibrillation/PVC's--Dr. Shearer. Had an ablation in 04/[address] Brownlee [place],DM,CVA,Lung disease,renal dise ase Bladder cancer 06/2013--has periodic [...] Knee replacement-partial--- left 08/2019 Right big toe [id number]. Mazzucco 2020
--- OUTSIDE RECORDS SUMMARY | 2024-08-25 12:48 | XMS_ITS ---
Author Organization [facility] Address [address] [place] [address] Care Team Providers Care Veneer Clipper Helper Name Role Phone Any Jackson MD Primary Care Provider UnavailDarrian Lockett Unavailable [phone] XUAN FAULKNER Unavailable Unavailab le REASON FOR VISIT fyi update. vertigo PROBLEMS Problem Type ICD Code Onset Dates Problem Status W/U Status Risk SNOMED Code Notes Problem Elevated liver function tests (R94.5) Active confirmed Elevated liver enzymes level (363357779) Encounters Encounter Location Date Provider Diagnosis [facility] [address] [place] [address] 03/02/2024 Darrian Khan Elevated liver function tests R94.5 ASSESSMENTS Encounter Date Diagnosis Assessment Notes Treatment Notes Treatment Clinical Notes 03/02/2024 Elevated liver function tests (ICD-10 - R94.5) PLAN OF TREATMENT Pending Test Test Name Order Date LIVER PROFILE 03/02/2024 Next Appt Details Provider Name:Darrian Khan , 11/20/2024 09:40:00 AM, [address], [address], [place], [address],
--- OUTSIDE RECORDS SUMMARY | 2024-08-25 12:48 | XMS_ITS | Continuity of Care Document ---
Author Name [facility] Organization [facility]OD-[facility] Care Team Providers Care Gum Machine Operator Name Role Phone [facility] Unavailable Unavailable Problems Combined list of problems [...] HCS Exposure to potentially hazardous substance (SCT [id number]) Active Condition Oct 18 4 Entered By: LIUDMILA SUBRAMANIAN Comment: Entered automatically through HERMINIA Problem List documentation program [facility] Exposure to potentially hazardous substance (SCT [id number]) Active Condition Apr 15 4 Entered By: [...] EMMANUEL JI Comment: [facility] Corrie BLANTON ( [facility]) - visit 12/11/18Ju2017 Entered By: EMMANUEL JI Comment: [place] - SEE STRAW HAT BRIM RAISER OPERATOR WHEN IN [place] ( JUN THRU NOVEMBER )Apr 30, 2018 Entered By: EMMANUEL JI Comment: NON [facility] DERMAT[facility] -December 12, 2018 Entered By: EMMANUEL JI Comment: NON [facility] urologist ( [place] ( [facility]- DR Del Valle / Lenin COHEN - [...] H90.3 Sensorineural hearing loss, bilateral Active Diagnosis [facility] Diagnosis: ICD-10-CM 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 [facility] Medications Combined list of outpatient medications from [...] G RESPIR ATORY (INHAL ATION) ACTIVE 04/18/2025 [id number] 5 PERCY BULLOCK 2023 60 [facility] APIXABAN 5MG TAB TAKE ONE TABLET BY MOUTH EVERY 12 HOURS ORAL ACTIVE RA DARREN RODRIGUEZ 2021 [facility] APIXABAN 5MG TAB TAKE ONE TABLET BY MOUTH EVERY 12 HOURS ORAL ACTIVE AZARBSharyn RAZO 2023 [facility] ASPIRIN 81MG TAB,EC TAKE ONE TABLET BY MOUTH TWICE DAILY ORAL complet Mike Martinez 2018 [facility] CETIRIZINE HCL 10MG TAB TAKE ONE-HALF TABLET BY MOUTH EVERY DAY ORAL ACTIVE AZARBALSharyn 2023 [facility] DOCETAXEL INJ,CONC INJECT INTRAVEN OUSLY INTRAV ENOUS ACTIVE AZARBALJ KOTA 2023 [facility] DOCUSATE NA 250MG CAP TAKE 1 CAPSULE BY MOUTH EVERY DAY ORAL ACTIVE AZARBALSharyn 2023 [facility] FLUTICASONE 250MCG/SALM ETEROL 50MCG INHL,ORAL,D ISKUS,60 INHALE 1 PUFF BY MOUTH EVERY DAY ORAL ACTIVE AZARBALSharyn 2023 [facility] GEMCITABINE HCL INJ INJ INJECT 200 MG INTRAVEN OUSLY INTRAV ENOUS ACTIVE AZARBALSharyn 2023 [facility] IPRATROPIUM BR 0.03% SOLN,SPRAY, NASAL 1 SPRAY INTO EACH NOSTRIL EVERY DAY NASAL ACTIVE AZAADANSharyn GUERRA2023 [facility] METOPROLOL SUCCINATE 100MG TAB,SA TAKE ONE-HALF TABLET BY MOUTH TWICE A DAY ORAL ACTIVE AZAADANSharyn GUERRA2023 [facility] METOPROLOL TARTRATE 50MG TAB TAKE ONE TABLET BY MOUTH TWICE DAILY ORAL ACTIVE PETROFF,S 2018 [facility] OMEPRAZOLE 20MG CAP,EC TAKE 1 CAPSULE BY MOUTH EVERY DAY ORAL ACTIVE AZARBALSharyn GUERRA2023 [facility] OMEPRAZOLE 20MG CAP,EC TAKE 1 CAPSULE BY MOUTH EVERY MORNING 30 MINUTES BEFORE BREAKFAS T ORAL ACTIVE PETROFF,S 2018 [facility] POLYETHYLEN E GLYCOL 3350 PWDR,ORAL TAKE 17 GM (ONE CAPFUL) BY MOUTH EVERY DAY ORAL ACTIVE MARGARETSharyn GUERRA2023 [facility] PREDNISONE 20MG TAB TAKE TWO TABLETS BY MOUTH ONCE DAILY COPD FLARE ORAL 05/11/2024 [id number] 4 PERCY BULLOCK 2023 10 [facility] SIMVASTATIN 80MG TAB TAKE ONE-HALF TABLET BY MOUTH AT BEDTIME ORAL ACTIVE PETROFF,S 2018 [facility] SIMVASTATIN 80MG TAB TAKE ONE-HALF TABLET BY MOUTH AT BEDTIME ORAL ACTIVE CLAUDIAPEDRITODANNISharyn GUERRA2023 [facility] TIOTROPIUM 18MCG CAP,INHL,30 INSERT 1 CAPSULE INTO AEROLIZE R AND INHALE BY MOUTH EVERY DAY RESPIR ATORY (INHAL ATION) ACTIVE MARGARETSharyn 2023 [facility] Allergies, Adverse Reactions, Alerts Combined list of allergies from Department of Defense and Veterans Affairs facilities. It does not include entries that were removed or entered in error. Substance Category Reaction Severity Reaction type Status Date Reported Comments Source AMOXICILLIN Propensity to adverse reactions to drug (finding) Jaundice [facility]ERE [facility] CODEINE Propensity to adverse reactions to drug (finding) Nausea and vomiting active 4 [facility] MULTAQ Propensity to adverse reactions to drug (finding) Eruption [facility] Immunizations Combined list of available immunizations from the Department of Defense and Veterans Affairs facilities. Immunization Series Date Given Administered By Site Reaction Lot Number CVX Code Drug Account Development Executive Status Comments Source INFLUENZA, HIGH-DOSE, TRIVALENT, PF 2023 ALEC BENTLEY RIGHT DELTO ID [id number] 135 complet ed [facility] RSV, BIVALENT, PROTEIN SUBUNIT RSVPREF, DILUENT RECONSTITUTED , 0.5 ML, PF 2023 MCALEC L LEFT DELTO ID [id number] 305 complet ed Sterile water diluent Lot #- [id number] 11/2024 [facility] RSV, RECOMBINANT, PROTEIN SUBUNIT RSVPREF, ADJUVANT RECONSTITUTED , 0.5 ML, PF 2022 303 complet ed [facility] INFLUENZA, HIGH-DOSE, QUADRIVALENT 2022 ALEC BENTLEY LEFT DELTO ID [id number] 197 complet ed [facility] INFLUENZA, UNSPECIFIED FORMULATION 2022 88 complet ed [facility] COVID-19 (PFIZER), MRNA, LNP-S, PF, 30 MCG/0.3 ML DOSE 2020 208 complet ed [facility] INFLUENZA, UNSPECIFIED FORMULATION 2020 88 complet ed [facility] COVID-19 (PFIZER), MRNA, LNP-S, PF, 30 MCG/0.3 ML DOSE 2 2020 208 complet ed [facility] COVID-19 (PFIZER), MRNA, LNP-S, PF, 30 MCG/0.3 ML DOSE 1 2020 208 complet ed [place] ZOSTER RECOMBINANT 1 2018 187 complet ed [facility] ZOSTER RECOMBINANT 1 2018 187 complet ed [facility] INFLUENZA, TRIVALENT, ADJUVANTED 2018 168 complet ed Site: Left Deltoid [facility] INFLUENZA, SEASONAL, INJECTABLE 2017 141 complet ed Site: Left Deltoid [facility] INFLUENZA, SEASONAL, INJECTABLE 2016 141 complet ed [facility] PNEUMOCOCCAL CONJUGATE PCV 13 2015 133 complet ed [facility] [place] [facility] PNEUMOCOCCAL POLYSACCHARID E PPV23 2014 33 complet ed [facility] TDAP 2014 115 complet ed [facility] [place] [facility] Vital Signs Combined list of inpatient and outpatient Vital Signs from Department of Defense and Veterans Affairs, ranging from 12 months to all on record, depending upon the facility. Vital Sign Value Date Comments Source SYSTOLIC BLOOD PRESSURE 125 04/11/20 24 09:48:39 [facility] [place] [facility] DIASTOLIC BLOOD PRESSURE 80 024 09:48:39 [facility] [place] [facility] PULSE OXIMETRY 94 04/11/2024 09:48:39 [facility] [place] [facility] WEIGHT 208.2 04/11/2024 09:48:39 [facility] [place] [facility] BMI 34 kg/m2 04/11/2024 09:48:39 [facility] PAIN 1 04/11/2024 09:48:39 [facility] [place] [facility] TEMPERATURE 97.5 04/11/2024 09:48:39 [facility] [place] [facility] PULSE 68 04/11/2024 09:48:39 [facility] RESPIRATION 16 04/11/2024 09:48:39 [facility] [place] [facility] SYSTOLIC BLOOD PRESSURE 129 09/24/19 24 09:24:42 [facility] DIASTOLIC BLOOD PRESSURE 86 024 09:24:42 [facility] PULSE OXIMETRY 97 09/24/2023 09:24:42 [facility] WEIGHT 206 09/24/2023 09:24:42 [facility] BMI 33 kg/m2 09/24/2023 09:24:42 [facility] PAIN 3 09/24/2023 09:24:42 [facility] HEIGHT 66 09/24/2023 09:24:42 [facility] TEMPERATURE 98 09/24/2023 09:24:42 [facility] PULSE 65 09/24/2023 09:24:42 [facility] RESPIRATION 18 09/24/2023 09:24:42 [facility] Encounters Combined list of: 1) Encounters from Department of Veterans Affairs facilities going backup to the last 18 months, not all [place] inpatient encounters are included; 2) Encounters from the Department of [facility] facilities going backup to 280 months. Location Location Details Encounter Type Encounter Number Reason For Visit Attending Provider ADM Date DC Date Status Disposition Source [facility] Outpatient Encounter [id number] 04/09 [facility] [place] [facility] OFFICE O/P EST MOD 30-39 MIN [id number] Diagnos is: ICD-10- CM I48.91 Unspeci fied atrial fibrill ation Corrie BULLOCK 04/09 [place] [facility] [place] [facility] [facility] Outpatient Encounter [id number] 06/05 [facility] Outpatient Encounter [id number] 09/19 [facility] Outpatient Encounter [id number] 09/23 [facility] OFFICE O/P [place] 60 MIN [id number] Diagnos is: ICD-10- CM D09.0 Carcino ma in situ of bladder LYNNETTE ROBLES 09/23 [facility] TARGETED CASE MANAGEMENT [id number] KARELY ARANA 09/25 [facility] [place] [facility] HEARING AID FITTING/CH ECKING [id number] Diagnos is: ICD-10- CM Z46.1 Encount er for fitting and adjustm ent of hearing aid Tiesha HERR 12/19 [facility] [place] [facility] Outpatient Encounter [id number] 02/07 [facility] Outpatient Encounter [id number] 02/07 [facility] [place] [facility] HEARING AID REPAIR/MOD IFYING [id number] Diagnos is: ICD-10- CM H90.3 Sensori neural hearing loss, bilater al JASMEETILANA ELIiTm L 03/10 [facility] [place] [facility] [facility] [place] OFFICE O/P EST MOD 30 MIN [id number] Diagnos is: ICD-10- CM I48.91 Unspeci fied atrial fibrill ation ARA,L MICH KYMBERLY 04/11 [facility] [place] [facility] [facility] [place] [facility] HEARING SERVICE [id number] Diagnos is: ICD-10- CM Z46.1 Encount er for fitting and adjustm ent of hearing aid JASMEETILANA ELI SATURNINO L 04/11 [facility] [place] [facility] [facility] [place] Outpatient Encounter [id number] 04/12 [facility] [place] [facility] [facility] [place] [facility] SPECIAL SUPPLIES PHYS/QHP [id number] Diagnos is: ICD-10- CM J44.9 Chronic obstruc tive pulmona ry disease , unspeci fied ST AMHOLLIE MONTOYA E P 04/17 [facility] [place] Outpatient Encounter [id number] 04/18 [facility] [place] Outpatient Encounter [id number] 04/18 [facility] Outpatient Encounter [id number] 04/21 [facility] [place] [facility] Outpatient Encounter [id number] 04/22 [facility] [place] HEARING AID CHECK BOTH EARS [id number] Diagnos is: ICD-10- CM Z46.1 Encount er for fitting and adjustm ent of hearing aid CHUY ORTIZ 04/29 [facility] Out[facility] Encounter [id number] 05/19 [facility] [place] [facility] HEARING AID FITTING/CH ECKING [id number] Diagnos is: ICD-10- CM Z46.1 Encount er for fitting and adjustm ent of hearing aid ILANA PITTS 05/20 [facility] Out[facility] Encounter [id number] 06/24 [facility] Out[facility] Encounter [id number] 07/28 [facility] Social History Combined list of available smoking, tobacco, and other social history from Department of Defense and Veterans Affairs facilities. Social History Type Response Date Comment Sourc e Tobacco smoking status NHIS VA-TOBACCO QUIT 5 TO < 15 YRS 04/11/2024 [facility] [place] [facility] History of tobacco use VA-TOBACCO FORMER USER 04/11/2024 [facility] History of tobacco use NM-TOBACCO FORMER USER 09/24/2023 [facility] History of tobacco use NM-TOBACCO FORMER USER 04/09/2023 [facility] History of tobacco use NM-TOBACCO FORMER USER 04/13/2022 [facility] History of tobacco use NM-TOBACCO FORMER USER 04/12/2021 [facility]/19/2020 [facility] History of tobacco use NM-TOBACCO QUIT 5 TO < 15 YRS 12/12/2018 [facility] History of tobacco use QUIT TOBACCO USE > 7 YEARS AGO 01/21/2018 [facility] History of tobacco use QUIT TOBACCO USE > 7 YEARS AGO 12/25/2016 [facility] Plan of Care List of future care activities from Department [facility] facilities. Additional future care activities may be listed in the Assessment and Plan section. Date/Time Care Activity Care Activity Detail Facili ty 01/13/2025 AMBULATORY - MEDICINE AMBULATORY - MEDICI [facility] Advance Directives List of completed, amended, or rescinded Advance Directives on record at [facility] facilities. An actual copy of the Directive is not included. Date Advance Directive Provider Source 05/23/2015 ADVANCE DIRECTIVE AMBER PENA [facility]
--- OUTSIDE RECORDS SUMMARY | 2024-08-25 12:48 | XMS_ITS | Encounter Summary ---
Author Name [facility] [place] [facility] [place] [facility] [place] [facility] [place] Address [address] [place] [address] Care Team Providers Care Supervisor Pipe Finishing Name Role Phone LAURENT ROBLES Primary Care [...] PART A Dec 14, 2012 PART A [id number] GENEVIEVE ARNOLD JR PATIENT MEDICARE (WNR) MEDICARE (M) PART B Dec 14, 2012 PART B [id number] GENEVIEVE ARNOLD PATIENT MEDICARE PART D (WNR) PRESCRIPT ION PART D Dec 14, 2012 PART D [id number] GENEVIEVE ARNOLD PATIENT [facility] (WNR) MEDICARE ADVANTAGE [facility](W NR) Jul 16, 2022 [id number] GENEVIEVE ARNOLD PATIENT [facility] (WNR) MEDICARE ADVANTAGE [facility] (WNR) Jul 16, 2017 [id number] GENEVIEVE ARNOLD PATIENT Selected Encounter This section includes the information on record at [place] for the Encounter. Date/Time Encounter Type Encounter Description Reason Pro vider Source Jul 28, 2024 09:27 AM Outpatient Encounter ADMIN PAT ACTIVTIES (MASNONCT) IHE Encounter Template Text not used by [place] Plan of Treatment: Future Appointments (+ 6 months) and Future Tests (+/- 45 days) The Plan of Treatment section includes future care activities for the patient from all [place] treatmentfacilities. This section includes future appointments and future orders which are active, pending or scheduled. Future Appointments This section includes appointments that were scheduled to occur 6 months from the date of the Encounter, up to a maximum of 20 appointments. The data comes from all [place] treatment facilities. Appointment Date/Time Appointment Type Appointme nt Facility Name Jan 13, 2025 11:00 AM AMBULATORY - MEDICINE [facility] Active, Pending, and Scheduled Orders This section includes a listing of several types of active, pending, and scheduled orders, including clinic medications orders, diagnostic test orders, procedure orders and consult orders; where the start date of the order is 45 days before the date of the Encounter or 45 days after the date of theEncounter. The data comes from all [place] treatment facilities. Test Date/Time Test Type Test Details Facility Name Jun 26, 2024 12:59 PM Consult Order COMMUNITY CARE-UROLOGY Cons Compensation Consulting Manager's Choice [facility] Social History: Smoking Status (Most current) and Tobacco Use (All prior to encounter date) This section includes the most current, and the historical, smoking and tobacco- related health factors from the [place] facility where the Encounter took place. Current Smoking Status This section includes the most current smoking, or tobacco-related health factor, from the [place] facility where the Encounter took place. Date/Time Current Smoking Status Comment Facil ity Apr 11, 2024 09:30 AM VA-TOBACCO FORMER USER [facility] Tobacco Use History This section includes a history of the smoking, or tobacco-related health factors, that were collected on or before the date of the Encounter. The data comes from the [place] facility where the Encounter took place. Date/Time Smoking Status/Tobacco Use Comment F acility Apr 11, 2024 09:30 AM VA-TOBACCO QUIT 5 TO < 15 YRS [facility] [place] [facility] Apr 09, 2023 09:00 AM VA-TOBACCO FORMER USER [facility] [place] [facility] Apr 09, 2023 09:00 AM VA-TOBACCO QUIT 5 TO < 15 YRS [facility] [place] [facility] Apr 13, 2022 09:30 AM VA-TOBACCO FORMER USER [facility] [place] [facility] Apr 13, 2022 09:30 AM VA-TOBACCO QUIT 5 TO < 15 YRS [facility] [place] [facility] Apr 12, 2021 11:30 AM VA-TOBACCO FORMER USER [facility] [place] [facility] Apr 12, 2021 11:30 AM VA-TOBACCO QUIT 5 TO < 15 YRS [facility] [place] [facility] Mar 19, 2020 09:00 AM VA-TOBACCO FORMER USER [facility] [place] [facility] Mar 19, 2020 09:00 AM VA-TOBACCO QUIT 5 TO < 15 YRS [facility] [place] [facility] December 12, 2018 10:18 AM VA-TOBACCO FORMER USER [facility] [place] [facility] December 12, 2018 10:18 AM VA-TOBACCO QUIT 5 TO < 15 YRS [facility] [place] [facility] Jan 21, 2018 07:50 AM QUIT TOBACCO USE > 7 YEARS AGO [facility] [place] [facility] Dec 25, 2016 10:59 AM QUIT TOBACCO USE > 7 YEARS AGO [facility] [place] [facility] Advance Directives: All historical and current Section Date Range: From patient's date of to the date document was created. This section includes ALL of a patient's completed or amended VA Advance and Rescinded Directives. The entries below indicate that a directive exists for the patient, but an actual copy is not included with this document. The data comes from all [place] facilities. Date Advance Directives Provider Source May 23, 2015 ADVANCE DIRECTIVE AMBER PENA [facility] [place] [facility] Encounter Notes: All associated encounter notes This section contains the clinical notes associated to the Encounter. Date/Time Encounter Note(s) Provider Source Jul 28, 2024 09:27 AM ADMINISTRATIVE NOTE: LOCAL TITLE: CCC: SCHEDULING ADMINISTRATION STANDARD TITLE: ADMINISTRATIVE NOTE DATE OF NOTE: JUL 28, 2024@09:27:38 ENTRY DATE: JUL 28, 2024@09:27:39 AUTHOR: GUSTAVO TROTTER EXP COSIGNER: URGENCY: STATUS: COMPLETED CCC: SCHEDULING ADMINISTRATION Has ADDENDA Patient Demographics Patient Name: GENEVIEVE ARNOLD JR Patient Primary Phone: [phone] Patient Primary [address]: [address] [place] [address] Patient : 1950 Patient Age: 74 Call Back Number: [phone] Caller/Recipient Relation to Patient: Self Caller Name: GENEVIEVE ARNOLD Administrative Administrative Note Reason: Other Administrative Note Comments: Anderson states he will need authorization/consult to follow up Urology after his procedure he had bladder surgery completed on 06/30/24. This technical document writer did inform the the consult for Urology has been placed. states this surgery took place outside of the [place] at the [facility] and he would like to make sure his PACT is aware & informed of this procedure. Anderson is requesting a call back from PACT. Anderson was offered to speak with [facility] nurse triage and declined to be transferred. IMPORTANT: This note was created by [facility] Clinical Contact Center staff. Please do not alert the staff member by adding them as a signer for future communications. Alerts are not monitored by this user. /rochelle TROTTER VISN1 CCC AMSA Signed: 07/28/2024 09:27 Receipt Acknowledged By: 07/28/2024 14:26 /kristen/ DORIS PEREZ RN REGISTERED NURSE for LIBERTAD GUERRA 07/28/2024 10:09 /kristen/ Jaquelin Gillis RN Primary Care Staff Nurse 07/28/2024 ADDENDUM STATUS: COMPLETED Notes were received on this procedure. /rochelle Gillis RN Primary Care Staff Nurse Signed: 07/28/2024 10:09 GUSTAVO TROTTER [place] [facility]
[2024-08-25 14:07] LABS: Appearance Urine Clear; Color Urine Yellow; Glucose Urine UA Negative (Negative); Leukocyte Esterase Urine Trace (Negative); Nitrite Urine Negative (Negative); Specific Gravity - Urine 1.015 (1.005-1.025); UMIC TRIGGER UA YES; Urine Blood Moderate (2+) (Negative); Urine Ketones Negative (Negative); Urine Protein Trace mg/dL (Neg-Trace)
[2024-08-25 14:18] LABS: Bacteria Urine None Seen (None Seen); Hyaline Casts Urine 0-2 /LPF (0-2); RBC Urine 0-2 /HPF (0-2); Squamous Epithelial Cell Urine 0-2 /HPF (0-2); WBC Urine 0-5 /HPF (0-5)
== END 2024-08-25 11:31 | disposition home or self-care (01) ==
LOC: HO.WFDLDS 11:30
PROVIDERS: Visit Provider Urology
DX: N39.0 Urinary tract infection, site not specified (principal)
CPT/HCPCS: 81001; 87086

== ENCOUNTER 2024-08-29 08:53 | Outpatient (REF) | payer OTHER, SELFPAY ==
[2024-08-29 08:58] LABS: Appearance Urine Clear; Color Urine Yellow; Glucose Urine UA Negative (Negative); Leukocyte Esterase Urine Trace (Negative); Nitrite Urine Negative (Negative); UMIC TRIGGER UA YES; Urine Blood Negative (Negative); Urine Ketones Negative (Negative); Urine Protein Trace mg/dL (Neg-Trace)
[2024-08-29 09:06] LABS: Bacteria Urine None Seen (None Seen); Hyaline Casts Urine 0-2 /LPF (0-2); RBC Urine 0-2 /HPF (0-2); Squamous Epithelial Cell Urine 0-2 /HPF (0-2)
--- OUTSIDE RECORDS SUMMARY | 2024-08-29 09:16 | XMS_ITS ---
Author Organization [facility] Address [address] [address] Care Team Providers Care Account Executive Agribusiness Name Role Phone aliyahyanet Primary Care Provider MARIBEL Hassan [phone] REASON FOR VISIT Handicap placard extension Encounters Encounter Location Date Provider Diagnosis [facility] [address] [facility] [address] [place] [address] 03/12/2023 MARIBEL POWELL Plan Of Treatment No Information Progress Notes * Volodymyr ARNOLDDOB:[birth year] (73 yo M)Acc No.[id number]:03/12/2023 Patient:?Volodymyr Arnold :1950???Age:73 Y???Sex:Male Address: [place] [address] * true * Date:? Generated for Oliviai ng/Mylesg/eTransmitting on:?08/29/2024 09:16 AM EST
--- OUTSIDE RECORDS SUMMARY | 2024-08-29 09:17 | XMS_ITS | Patient Health Record ---
Author Organization [facility] Address [address] [facility] [address] [place] [address] Care Team Providers [facility] Name Role Phone yanet ly Primary Care Provider Unavailabl e Allergies Allergen (clinical drug ingredient) Drug/Non Drug Allergy documented on EMR Reaction Allergy Type Onset Date Status dronedarone Multaq rash Drug Allergy Activ e Reason For Referral No Information Medications Medication SIG (Take, Route, Frequency, Duration) Notes Start Date End Date Status Ipratropium [place] 0.03 % 2 sprays in e ach [...] Problem Status W/U Status Risk Notes Problem [id number] Hallux rigidus o f right foot (M20.21) Active confirmed Problem 365260081 Anticoagulant long-term use (Z79.01) Active confirmed Plan [...] Date Coverage End Date [employer] Medicare [id number] [address] [address] [place] [phone] [id number] Volodymyr Richards Self - patient is the [...] X 2 ([employer]) and 3 franco ters ([employer]) COPD Jaundice X 1 month E. Coli [...]
--- OUTSIDE RECORDS SUMMARY | 2024-08-29 09:17 | XMS_ITS ---
Author Organization [facility] Address [address] [address] Care Team Providers Care Snap Attacher Name Role Phone aliyahyanet Primary Care Provider MARIBEL Hassan [phone] REASON FOR VISIT RMV Placard/Plate form Encounters Encounter Location Date Provider Diagnosis [facility] [address] [facility] [address] [place] [address] 03/12/2023 MARIBEL POWELL Plan Of Treatment No Information Progress Notes * Volodymyr ARNOLDDOB:[birth year] (73 yo M)Acc No.[id number]:03/12/2023 Patient:?Volodymyr Arnold :1950???Age:73 Y???Sex:Male Address:[place] [address] * true * Date:? Generated for Oliviai ng/Mylesg/eTransmitting on:?08/29/2024 09:16 AM EST
--- OUTSIDE RECORDS SUMMARY | 2024-08-29 09:17 | XMS_ITS | Continuity of Care Document ---
Author Name [facility] Organization [facility] Care Team Providers Care Aircraft Accessories Mechanic Name Role Phone [facility] Unavailable Unavailable Problems Combined list of problems [...] HCS Exposure to potentially hazardous substance (SCT [id number]) Active Condition Oct 18 4 Entered By: LIUDMILA SUBRAMANIAN Comment: Entered automatically through HER[facility] Problem List documentation program [facility] Exposure to potentially hazardous substance (SCT [id number]) Active Condition Apr 15 4 Entered By: [...] EMMANUEL JI Comment: DR Corrie BLANTON ( [facility]) - visit 12/11/18Ju2017 Entered By: EMMANUEL JI Comment: [place] - SEE ELECTROTYPER WHEN IN [place] ( JUN THRU NOVEMBER )Apr 30, 2018 Entered By: EMMANUEL JI Comment[facility] -December 12, 2018 Entered By: EMMANUEL JI Comment: [facility] ( [place] ( [facility]- DR Del Valle / Lenin COHEN - [...] H90.3 Sensorineural hearing loss, bilateral Active Diagnosis [facility] Diagnosis: ICD-10-CM 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 [facility] Medications Combined list of outpatient medications from [...] G RESPIR ATORY (INHAL ATION) ACTIVE 04/18/2025 [id number] 5 PERCY BULLOCK 2023 60 [facility] APIXABAN 5MG TAB TAKE ONE TABLET BY MOUTH EVERY 12 HOURS ORAL ACTIVE RA DARREN RODRIGUEZ 2021 [facility] APIXABAN 5MG TAB TAKE ONE TABLET BY MOUTH EVERY 12 HOURS ORAL ACTIVE AZARBSharyn RAZO 2023 [facility] ASPIRIN 81MG TAB,EC TAKE ONE TABLET BY MOUTH TWICE DAILY ORAL complet Mike Martinez 2018 [facility] CETIRIZINE HCL 10MG TAB TAKE ONE-HALF TABLET BY MOUTH EVERY DAY ORAL ACTIVE AZARBALSharyn 2023 [facility] DOCETAXEL INJ,CONC INJECT INTRAVEN OUSLY INTRAV ENOUS ACTIVE AZARBALJ KOTA 2023 [facility] DOCUSATE NA 250MG CAP TAKE 1 CAPSULE BY MOUTH EVERY DAY ORAL ACTIVE AZARBALSharyn 2023 [facility] FLUTICASONE 250MCG/SALM ETEROL 50MCG INHL,ORAL,D ISKUS,60 INHALE 1 PUFF BY MOUTH EVERY DAY ORAL ACTIVE AZARBALSharyn 2023 [facility] GEMCITABINE HCL INJ INJ INJECT 200 MG INTRAVEN OUSLY INTRAV ENOUS ACTIVE AZARBALSharyn 2023 [facility] IPRATROPIUM BR 0.03% SOLN,SPRAY, NASAL 1 SPRAY INTO EACH NOSTRIL EVERY DAY NASAL ACTIVE AZAADANSharyn GUERRA2023 [facility] METOPROLOL SUCCINATE 100MG TAB,SA TAKE ONE-HALF TABLET BY MOUTH TWICE A DAY ORAL ACTIVE AZAADANSharyn GUERRA2023 [facility] METOPROLOL TARTRATE 50MG TAB TAKE ONE TABLET BY MOUTH TWICE DAILY ORAL ACTIVE PETROFF,S 2018 [facility] OMEPRAZOLE 20MG CAP,EC TAKE 1 CAPSULE BY MOUTH EVERY DAY ORAL ACTIVE AZARBALSharyn GUERRA2023 [facility] OMEPRAZOLE 20MG CAP,EC TAKE 1 CAPSULE BY MOUTH EVERY MORNING 30 MINUTES BEFORE BREAKFAS T ORAL ACTIVE PETROFF,S 2018 [facility] POLYETHYLEN E GLYCOL 3350 PWDR,ORAL TAKE 17 GM (ONE CAPFUL) BY MOUTH EVERY DAY ORAL ACTIVE MARGARETSharyn GUERRA2023 [facility] PREDNISONE 20MG TAB TAKE TWO TABLETS BY MOUTH ONCE DAILY COPD FLARE ORAL 05/11/2024 [id number] 4 PERCY BULLOCK 2023 10 [facility] SIMVASTATIN 80MG TAB TAKE ONE-HALF TABLET BY MOUTH AT BEDTIME ORAL ACTIVE PETROFF,S 2018 [facility] SIMVASTATIN 80MG TAB TAKE ONE-HALF TABLET BY MOUTH AT BEDTIME ORAL ACTIVE CLAUDIAPEDRITODANNISharyn GUERRA2023 [facility] TIOTROPIUM 18MCG CAP,INHL,30 INSERT 1 CAPSULE INTO AEROLIZE R AND INHALE BY MOUTH EVERY DAY RESPIR ATORY (INHAL ATION) ACTIVE MARGARETSharyn 2023 [facility] Allergies, Adverse Reactions, Alerts Combined list of [...] drug (finding) Nausea and vomiting active 4 [facility] MULTAQ Propensity to adverse reactions to drug (finding) Eruption active 2 [facility] Immunizations Combined list of available immunizations from the Department of Defense and Veterans Affairs facilities. Immunization Series Date Given Administered By Site Reaction Lot Number CVX Code Drug Ground Crew Chief Status Comments Source INFLUENZA, HIGH-DOSE, TRIVALENT, PF 2023 ALEC BENTLEY RIGHT DELTO ID [id number] 135 complet ed [facility] RSV, BIVALENT, PROTEIN SUBUNIT RSVPREF, DILUENT RECONSTITUTED , 0.5 ML, PF 2023 MCALEC L LEFT DELTO ID [id number] 305 complet ed Sterile water diluent Lot #- [id number] 11/2024 [facility] RSV, RECOMBINANT, PROTEIN SUBUNIT RSVPREF, ADJUVANT RECONSTITUTED , 0.5 ML, PF 2022 303 complet ed [facility] INFLUENZA, HIGH-DOSE, QUADRIVALENT 2022 ALEC BENTLEY LEFT DELTO ID [id number] 197 complet ed [facility] INFLUENZA, UNSPECIFIED FORMULATION 2022 88 complet ed [facility] COVID-19 (PFIZER), MRNA, LNP-S, PF, 30 MCG/0.3 ML DOSE 2020 208 complet ed [facility] INFLUENZA, UNSPECIFIED FORMULATION 2020 88 complet ed [facility] COVID-19 (PFIZER), MRNA, LNP-S, PF, 30 MCG/0.3 ML DOSE 2 2020 208 complet ed [facility] COVID-19 (PFIZER), MRNA, LNP-S, PF, 30 MCG/0.3 ML DOSE 1 2020 208 complet ed [place] ZOSTER RECOMBINANT 1 2018 187 complet ed [facility] ZOSTER RECOMBINANT 1 2018 187 complet ed [facility] INFLUENZA, TRIVALENT, ADJUVANTED 2018 168 complet ed Site: Left Deltoid [facility] INFLUENZA, SEASONAL, INJECTABLE 2017 141 complet ed Site: Left Deltoid [facility] INFLUENZA, SEASONAL, INJECTABLE 2016 141 complet ed [facility] PNEUMOCOCCAL CONJUGATE PCV 13 2015 133 complet ed [facility] PNEUMOCOCCAL POLYSACCHARID E PPV23 2014 33 complet ed [facility] TDAP 2014 115 complet ed [facility] Vital Signs Combined list of inpatient and outpatient Vital Signs from Department of Defense and Veterans Affairs, ranging from 12 months to all on record, depending upon the facility. Vital Sign Value Date Comments Source SYSTOLIC BLOOD PRESSURE 125 04/11/20 24 09:48:39 [facility] DIASTOLIC BLOOD PRESSURE 80 024 09:48:39 [facility] PULSE OXIMETRY 94 04/11/2024 09:48:39 [facility] WEIGHT 208.2 04/11/2024 09:48:39 [facility] BMI 34 kg/m2 04/11/2024 09:48:39 [facility] PAIN 1 04/11/2024 09:48:39 [facility] TEMPERATURE 97.5 04/11/2024 09:48:39 [facility] PULSE 68 04/11/2024 09:48:39 [facility] RESPIRATION 16 04/11/2024 09:48:39 [facility] SYSTOLIC BLOOD PRESSURE 129 09/24/19 24 09:24:42 [facility] DIASTOLIC BLOOD PRESSURE 86 024 09:24:42 [facility] PULSE OXIMETRY 97 09/24/2023 09:24:42 [facility] WEIGHT 206 09/24/2023 09:24:42 [facility] BMI 33 kg/m2 09/24/2023 09:24:42 [facility] PAIN 3 09/24/2023 09:24:42 [facility] HEIGHT 66 09/24/2023 09:24:42 [facility] TEMPERATURE 98 09/24/2023 09:24:42 [facility] PULSE 65 09/24/2023 09:24:42 [facility] RESPIRATION 18 09/24/2023 09:24:42 [facility] Encounters Combined list of: 1) Encounters from Department of Veterans Affairs facilities going backup to the last 18 months, not all [place] inpatient encounters are included; 2) Encounters from the Department of [facility] facilities going backup to 280 months. Location Location Details Encounter Type Encounter Number Reason For Visit Attending Provider ADM Date DC Date Status Disposition Source [facility] Outpatient Encounter [id number] 04/09 [facility] OFFICE O/P EST MOD 30-39 MIN [id number] Diagnos is: ICD-10- CM I48.91 Unspeci fied atrial fibrill ation Corrie BULLOCK 04/09 [place] [facility] [place] Outpatient Encounter [id number] 06/05 [facility] Outpatient Encounter [id number] 09/19 [facility] Outpatient Encounter [id number] 09/23 [facility] OFFICE O/P [place] 60 MIN [id number] Diagnos is: ICD-10- CM D09.0 Carcino ma in situ of bladder LYNNETTE ROBLES 09/23 [facility] TARGETED CASE MANAGEMENT [id number] KARELY ARANA 09/25 [facility] HEARING AID FITTING/CH ECKING [id number] Diagnos is: ICD-10- CM Z46.1 Encount er for fitting and adjustm ent of hearing aid Tiesha HERR 12/19 [facility] Outpatient Encounter [id number] 02/07 [facility] [place] En[place] [id number] 02/07 [facility] [place] HEARING AID REPAIR/MOD IFYING [id number] Diagnos is: ICD-10- CM H90.3 Sensori neural hearing loss, bilater al JASMEETILANA ELITim L 03/10 [facility] OFFICE O/P EST MOD 30 MIN [id number] Diagnos is: ICD-10- CM I48.91 Unspeci fied atrial fibrill ation ARA,L MICH KYMBERLY 04/11 [facility] HEARING SERVICE [id number] Diagnos is: ICD-10- CM Z46.1 Encount er for fitting and adjustm ent of hearing aid JASMEETILANA ELI SATURNINO L 04/11 [facility] Outpatient Encounter [id number] 04/12 [facility] SPECIAL SUPPLIES PHYS/QHP [id number] Diagnos is: ICD-10- CM J44.9 Chronic obstruc tive pulmona ry disease , unspeci fied ST AMHOLLIE MONTOYA E P 04/17 [facility] Out[facility] Encounter [id number] 04/18 [facility] Outpatient Encounter [id number] 04/18 [facility] Outpatient Encounter [id number] 04/21 [facility] Outpatient Encounter [id number] 04/22 [facility] HEARING AID CHECK BOTH EARS [id number] Diagnos is: ICD-10- CM Z46.1 Encount er for fitting and adjustm ent of hearing aid CHUY ORTIZ 04/29 [facility] En[facility] [id number] 05/19 [facility] HEARING AID FITTING/CH ECKING [id number] Diagnos is: ICD-10- CM Z46.1 Encount er for fitting and adjustm ent of hearing aid ILANA PITTS 05/20 [facility] Encounter [id number] 06/24 [facility] En[facility] [id number] 07/28 [facility] Social History Combined list of available smoking, tobacco, and other social history from Department of Defense and Veterans Affairs facilities. Social History Type Response Date Comment Sourc e Tobacco smoking status NHIS VA-TOBACCO QUIT 5 TO < 15 YRS 04/11/2024 [facility] History of tobacco use VA-TOBACCO FORMER USER 04/11/2024 [facility] History of tobacco use OR-TOBACCO FORMER USER 09/24/2023 [facility] History of tobacco use OR-TOBACCO FORMER USER 04/09/2023 [facility] History of tobacco use OR-TOBACCO FORMER USER 04/13/2022 [facility] [facility] History of tobacco use OR-TOBACCO FORMER USER 04/12/2021 [facility] of [facility] 15 Y[facility] 03/19/2020 [facility] History of tobacco use OR-TOBACCO QUIT 5 TO < 15 YRS 12/12/2018 [facility] History of tobacco use QUIT TOBACCO USE > 7 YEARS AGO 01/21/2018 [facility] History of tobacco use QUIT TOBACCO USE > 7 YEARS AGO 12/25/2016 [facility] Plan of Care List of future care activities from Department [facility] facilities. Additional future care activities may be listed in the Assessment and Plan section. Date/Time Care Activity Care Activity Detail Facili ty 01/13/2025 AMBULATORY - MEDICINE AMBULATORY - MEDICI [facility] Advance Directives List of completed, amended, or rescinded Advance Directives on record at [facility] facilities. An actual copy of the Directive is not included. Date Advance Directive Provider Source 05/23/2015 ADVANCE DIRECTIVE AMBER PENA [facility]
== END 2024-08-29 08:54 | disposition home or self-care (01) ==
LOC: HO.LNP 08:53
PROVIDERS: Visit Provider Urology
DX: C67.9 Malignant neoplasm of bladder, unspecified (principal)
CPT/HCPCS: 81001

== ENCOUNTER 2024-09-09 08:55 | Outpatient (AMB) | payer MEDICARE, SELFPAY ==
--- OUTSIDE RECORDS SUMMARY | 2024-09-09 09:37 | XMS_ITS ---
Author Organization [facility] Address [address] [address] Care Team Providers Care Biodiesel Engine Specialist Name Role Phone aliyahyanet Primary Care Provider MARIBEL Hassan [phone] REASON FOR VISIT RMV Placard/Plate form Encounters Encounter Location Date Provider Diagnosis [facility] [address] [facility] [address] [place] [address] 03/12/2023 MARIBEL POWELL Plan Of Treatment No Information Progress Notes * Volodymyr ARNOLDDOB:[birth year] (73 yo M)Acc No.[id number]:03/12/2023 Patient:?Volodymyr Arnold :1950???Age:73 Y???Sex:Male Address:[place] [address] * true * Date:? Generated for Printi ng/Mylesg/eTransmitting on:?09/09/2024 09:37 AM EST
--- OUTSIDE RECORDS SUMMARY | 2024-09-09 09:37 | XMS_ITS ---
Author Organization [facility] Address [address] [address] Care Team Providers Care Transition Mgr Name Role Phone aliyahyanet Primary Care Provider MARIBEL Hassan [phone] REASON FOR VISIT Handicap placard extension Encounters Encounter Location Date Provider Diagnosis [facility] [address] [facility] [address] [place] [address] 03/12/2023 MARIBEL POWELL Plan Of Treatment No Information Progress Notes * Volodymyr ARNOLDDOB:[birth year] (73 yo M)Acc No.[id number]:03/12/2023 Patient:?Volodymyr Arnold :1950???Age:73 Y???Sex:Male Address: [place] [address] * true * Date:? Generated for Oliviai ng/Mylesg/eTransmitting on:?09/09/2024 09:37 AM EST
--- OUTSIDE RECORDS SUMMARY | 2024-09-09 09:38 | XMS_ITS ---
Author Organization [facility] Address [address] [place] [address] Care Team Providers Care Sap Security Consultant Name Role Phone Any Jackson MD Primary Care Provider UnavailDarrian Lockett Unavailable [phone] XUAN FAULKNER Unavailable Unavailab le REASON FOR VISIT fyi update. vertigo PROBLEMS Problem Type ICD Code Onset Dates Problem Status W/U Status Risk SNOMED Code Notes Problem Elevated liver function tests (R94.5) Active confirmed Elevated liver enzymes level (670574103) Encounters Encounter Location Date Provider Diagnosis [facility] [address] [place] [address] 03/02/2024 Darrian Khan Elevated liver function tests R94.5 ASSESSMENTS Encounter Date Diagnosis Assessment Notes Treatment Notes Treatment Clinical Notes 03/02/2024 Elevated liver function tests (ICD-10 - R94.5) PLAN OF TREATMENT Pending Test Test Name Order Date LIVER PROFILE 03/02/2024 Next Appt Details Provider Name:Darrian Khan , 11/20/2024 09:40:00 AM, [address], [address], [place], [address],
--- OUTSIDE RECORDS SUMMARY | 2024-09-09 09:38 | XMS_ITS ---
Author Organization [facility] Address [address] [place] [address] Care Team Providers Care Motor Grader Operator Name Role Phone Po Any CUI Primary Care Provider Unavailfaith e Darrian Khan Unavailable [phone] XUAN FAULKNER Unavailable Unavailab le ALLERGIES Allergen [...] as directed Inhalation Activ e VITAL SIGNS Blood pressure systolic 00 mm Hg 05/16/20 24 Blood pressure diastolic 00 mm Hg 024 Height 66 in 05/16/2024 Weight 205 lbs 05/16/2024 BMI 33.08 kg/m2 05/16/2024 Encounters Encounter Location Date Provider Diagnosis [facility] [address] [place] [address] 05/16/2024 Darrian Khan Hx of adenomatous colonic [...] Provider Name:Darrian Khan , 11/20/2024 09:40:00 AM, [address] [place] [address], [address], [place], [address], Progress Notes * Examination Category Sub-Category Detail [...]
--- OUTSIDE RECORDS SUMMARY | 2024-09-09 09:38 | XMS_ITS | Patient Health Record ---
Author Organization [facility] Address [address] [facility] [address] [place] [address] Care Team Providers Care Independent Contractor Name Role Phone yanet ly Primary Care Provider Unavailabl e Allergies Allergen (clinical drug ingredient) Drug/Non Drug Allergy documented on EMR Reaction Allergy Type Onset Date Status dronedarone Multaq rash Drug Allergy Activ e Reason For Referral No Information Medications Medication SIG (Take, Route, Frequency, Duration) Notes Start Date End Date Status Ipratropium [place] 0.03 % 2 sprays in e ach [...] Problem Status W/U Status Risk Notes Problem [id number] Hallux rigidus o f right foot (M20.21) Active confirmed Problem 585653452 Anticoagulant long-term use (Z79.01) Active confirmed Plan [...] Date Coverage End Date [employer] Medicare Adv-[id number] [address] [address] [place] [phone] [id number] Volodymyr Richards Self - patient is the [...] X 2 (Pfizer) and 3 franco ters (1bib) COPD Jaundice X 1 month E. Coli [...]
--- OUTSIDE RECORDS SUMMARY | 2024-09-09 09:38 | XMS_ITS ---
Author Organization [facility] Address [address] [place] [address] Care Team Providers Care Road Engineer Name Role Phone Any Jackson MD Primary Care Provider UnavailDarrian Lockett Unavailable [phone] XUAN FAULKNER Unavailable Unavailab le REASON FOR VISIT QUESTIONS Encounters Encounter Location Date Provider Diagnosis [facility] [address] [place] [address] 03/13/2024 Darrian Khan Elevated liver function tests R94.5 ASSESSMENTS Encounter Date Diagnosis Assessment Notes Treatment Notes Treatment Clinical Notes 03/13/2024 Elevated liver function tests (ICD-10 - R94.5) PLAN OF TREATMENT Pending Test Test Name Order Date LIVER PROFILE 03/13/2024 Next Appt Details Provider Name:Darrian Khan , 11/20/2024 09:40:00 AM, [address] [place] [address], [address], [place], [address],
--- OUTSIDE RECORDS SUMMARY | 2024-09-09 09:39 | XMS_ITS | Continuity of Care Document ---
Author Name [facility] Organization [facility] Care Team Providers Care Immunology Specialist Name Role Phone [facility] Unavailable Unavailable Problems Combined list of problems [...] HCS Exposure to potentially hazardous substance (SCT [id number]) Active Condition Oct 18 4 Entered By: LIUDMILA SUBRAMANIAN Comment: Entered automatically through HERMIN[facility] Problem List documentation program [facility] Exposure to potentially hazardous substance (SCT [id number]) Active Condition Apr 15 4 Entered By: [...] EMMANUEL JI Comment: DR Corrie BLANTON ( [facility]) - visit 12/11/18Ju2017 Entered By: EMMANUEL JI Comment: [place] - SEE LEATHER FLESHER WHEN IN [place] ( JUN THRU NOVEMBER )Apr 30, 2018 Entered By: EMMANUEL JI Comment[facility] -December 12, 2018 Entered By: EMMANUEL JI Comment: [facility] ( [place] ( [facility]- DR Del Valle / Lenin COHEN [...] H90.3 Sensorineural hearing loss, bilateral Active Diagnosis [facility] Diagnosis: ICD-10-CM 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 [facility] Medications Combined list of outpatient medications [...] G RESPIR ATORY (INHAL ATION) ACTIVE 04/18/2025 [id number] PERCY BULLOCK 2023 60 [facility] APIXABAN 5MG TAB TAKE ONE TABLET BY MOUTH EVERY 12 HOURS ORAL ACTIVE RA DARREN RODRIGUEZ 2021 [facility] APIXABAN 5MG TAB TAKE ONE TABLET BY MOUTH EVERY 12 HOURS ORAL ACTIVE AZARBSharyn RAZO 2023 [facility] ASPIRIN 81MG TAB,EC TAKE ONE TABLET BY MOUTH TWICE DAILY ORAL complet Mike Martinez 2018 [facility] CETIRIZINE HCL 10MG TAB TAKE ONE-HALF TABLET BY MOUTH EVERY DAY ORAL ACTIVE AZARBALSharyn 2023 [facility] DOCETAXEL INJ,CONC INJECT INTRAVEN OUSLY INTRAV ENOUS ACTIVE AZARBALJ KOTA 2023 [facility] DOCUSATE NA 250MG CAP TAKE 1 CAPSULE BY MOUTH EVERY DAY ORAL ACTIVE AZARBALSharyn 2023 [facility] FLUTICASONE 250MCG/SALM ETEROL 50MCG INHL,ORAL,D ISKUS,60 INHALE 1 PUFF BY MOUTH EVERY DAY ORAL ACTIVE AZARBALShrayn 2023 [facility] GEMCITABINE HCL INJ INJ INJECT 200 MG INTRAVEN OUSLY INTRAV ENOUS ACTIVE AZARBALSharyn 2023 [facility] IPRATROPIUM BR 0.03% SOLN,SPRAY, NASAL 1 SPRAY INTO EACH NOSTRIL EVERY DAY NASAL ACTIVE AZAADANSharyn GUERRA2023 [facility] METOPROLOL SUCCINATE 100MG TAB,SA TAKE ONE-HALF TABLET BY MOUTH TWICE A DAY ORAL ACTIVE AZAADANSharyn GUERRA2023 [facility] METOPROLOL TARTRATE 50MG TAB TAKE ONE TABLET BY MOUTH TWICE DAILY ORAL ACTIVE PETROFF,S 2018 [facility] OMEPRAZOLE 20MG CAP,EC TAKE 1 CAPSULE BY MOUTH EVERY DAY ORAL ACTIVE AZARBALSharyn GUERRA2023 [facility] OMEPRAZOLE 20MG CAP,EC TAKE 1 CAPSULE BY MOUTH EVERY MORNING 30 MINUTES BEFORE BREAKFAS T ORAL ACTIVE PETROFF,S 2018 [facility] POLYETHYLEN E GLYCOL 3350 PWDR,ORAL TAKE 17 GM (ONE CAPFUL) BY MOUTH EVERY DAY ORAL ACTIVE MARGARETSharyn GUERRA2023 [facility] PREDNISONE 20MG TAB TAKE TWO TABLETS BY MOUTH ONCE DAILY COPD FLARE ORAL 05/11/2024 [id number] PERCY BULLOCK 2023 10 [facility] SIMVASTATIN 80MG TAB TAKE ONE-HALF TABLET BY MOUTH AT BEDTIME ORAL ACTIVE PETROFF,S 2018 [facility] SIMVASTATIN 80MG TAB TAKE ONE-HALF TABLET BY MOUTH AT BEDTIME ORAL ACTIVE CLAUDIAPEDRITODANNISharyn GUERRA2023 [facility] TIOTROPIUM 18MCG CAP,INHL,30 INSERT 1 CAPSULE INTO AEROLIZE R AND INHALE BY MOUTH EVERY DAY RESPIR ATORY (INHAL ATION) ACTIVE MARGARETSharyn 2023 [facility] Allergies, Adverse Reactions, Alerts Combined list of allergies from Department of Defense and Veterans Affairs facilities. It does not include entries that were removed or entered in error. Substance Category Reaction Severity Reaction type Status Date Reported Comments Source AMOXICILLIN Propensity to adverse reactions to drug (finding) Jaundice SEVERE active 4 [facility] CODEINE Propensity to adverse reactions to drug (finding) Nausea and vomiting active 4 [facility] MULTAQ Propensity to adverse reactions to drug (finding) Eruption [facility] Immunizations Combined list of available immunizations from the Department of Defense and Veterans Affairs facilities. 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 Operator Status Comments Source INFLUENZA, HIGH-DOSE, TRIVALENT, PF 2023 ALEC BENTLEY RIGHT DELTO ID [id number] 135 complet ed [facility] RSV, BIVALENT, PROTEIN SUBUNIT RSVPREF, DILUENT RECONSTITUTED , 0.5 ML, PF 2023 MCALEC L LEFT DELTO ID [id number] 305 complet ed Sterile water diluent Lot #- [id number] 11/2024 [facility] RSV, RECOMBINANT, PROTEIN SUBUNIT RSVPREF, ADJUVANT RECONSTITUTED , 0.5 ML, PF 2022 303 complet ed [facility] INFLUENZA, HIGH-DOSE, QUADRIVALENT 2022 ALEC BENTLEY LEFT DELTO ID [id number] 197 complet ed [facility] INFLUENZA, UNSPECIFIED FORMULATION 2022 88 complet ed [facility] COVID-19 (PFIZER), MRNA, LNP-S, PF, 30 MCG/0.3 ML DOSE 2020 208 complet ed [facility] INFLUENZA, UNSPECIFIED FORMULATION 2020 88 complet ed [facility] COVID-19 (PFIZER), MRNA, LNP-S, PF, 30 MCG/0.3 ML DOSE 2 2020 208 complet ed [facility] COVID-19 (PFIZER), MRNA, LNP-S, PF, 30 MCG/0.3 ML DOSE 1 2020 208 complet ed [place] ZOSTER RECOMBINANT 1 2018 187 complet ed [facility] ZOSTER RECOMBINANT 1 2018 187 complet ed [facility] INFLUENZA, TRIVALENT, ADJUVANTED 2018 168 complet ed Site: Left Deltoid [facility] INFLUENZA, SEASONAL, INJECTABLE 2017 141 complet ed Site: Left Deltoid [facility] INFLUENZA, SEASONAL, INJECTABLE 2016 141 complet ed [facility] PNEUMOCOCCAL CONJUGATE PCV 13 2015 133 complet ed [facility] PNEUMOCOCCAL POLYSACCHARID E PPV23 2014 33 complet ed [facility] TDAP 2014 115 complet ed [facility] Vital Signs Combined list of inpatient and outpatient Vital Signs from Department of Defense and Veterans Affairs, ranging from 12 months to all on record, depending upon the facility. Vital Sign Value Date Comments Source SYSTOLIC BLOOD PRESSURE 125 04/11/20 24 09:48:39 [facility] DIASTOLIC BLOOD PRESSURE 80 024 09:48:39 [facility] PULSE OXIMETRY 94 04/11/2024 09:48:39 [facility] WEIGHT 208.2 04/11/2024 09:48:39 [facility] BMI 34 kg/m2 04/11/2024 09:48:39 [facility] PAIN 1 04/11/2024 09:48:39 [facility] TEMPERATURE 97.5 04/11/2024 09:48:39 [facility] PULSE 68 04/11/2024 09:48:39 [facility] RESPIRATION 16 04/11/2024 09:48:39 [facility] SYSTOLIC BLOOD PRESSURE 129 09/24/19 24 09:24:42 [facility] DIASTOLIC BLOOD PRESSURE 86 024 09:24:42 [facility] PULSE OXIMETRY 97 09/24/2023 09:24:42 [facility] WEIGHT 206 09/24/2023 09:24:42 [facility] BMI 33 kg/m2 09/24/2023 09:24:42 [facility] PAIN 3 09/24/2023 09:24:42 [facility] HEIGHT 66 09/24/2023 09:24:42 [facility] TEMPERATURE 98 09/24/2023 09:24:42 [facility] PULSE 65 09/24/2023 09:24:42 [facility] RESPIRATION 18 09/24/2023 09:24:42 [facility] Encounters Combined list of: 1) Encounters from Department of Veterans Affairs facilities going backup to the last 18 months, not all ID inpatient encounters are included; 2) Encounters from the Department of [facility] facilities going backup to 280 months. Location Location Details Encounter Type Encounter Number Reason For Visit Attending Provider ADM Date DC Date Status Disposition Source [facility] Outpatient Encounter [id number] 04/09 [facility] [place] OFFICE O/P EST MOD 30-39 MIN [id number] Diagnos is: ICD-10- CM I48.91 Unspeci fied atrial fibrill ation Corrie BULLOCK 04/09 [facility] [place] [facility] Outpatient Encounter [id number] 06/05 [facility] Outpatient Encounter [id number] 09/19 [facility] Outpatient Encounter [id number] 09/23 [facility] OFFICE O/P [place] 60 MIN [id number] Diagnos is: ICD-10- CM D09.0 Carcino ma in situ of bladder LYNNETTE ROBLES 09/23 [facility] TARGETED CASE MANAGEMENT [id number] KARELY ARANA 09/25 [facility] [place] [facility] HEARING AID FITTING/CH ECKING [id number] Diagnos is: ICD-10- CM Z46.1 Encount er for fitting and adjustm ent of hearing aid Tiesha HERR 12/19 [facility] Outpatient Encounter [id number] 02/07 [facility] Outpatient Encounter [id number] 02/[address] [facility] [place] [facility] HEARING AID REPAIR/MOD IFYING [id number] Diagnos is: ICD-10- CM H90.3 Sensori neural hearing loss, bilater al JASMEETILANA ELITim L 03/10 [facility] [place] OFFICE O/P EST MOD 30 MIN [id number] Diagnos is: ICD-10- CM I48.91 Unspeci fied atrial fibrill ation ARA,L MICH KYMBERLY 04/11 [facility] [place] HEARING SERVICE [id number] Diagnos is: ICD-10- CM Z46.1 Encount er for fitting and adjustm ent of hearing aid JASMEETILANA ELI SATURNINO L 04/11 [facility] Outpatient Encounter [id number] 04/12 [facility] [place] SPECIAL SUPPLIES PHYS/QHP [id number] Diagnos is: ICD-10- CM J44.9 Chronic obstruc tive pulmona ry disease , unspeci fied ST AMHOLLIE MONTOYA E P 04/17 [facility] Out[facility] Encounter [id number] 04/18 [facility] Outpatient Encounter [id number] 04/18 [facility] Outpatient Encounter [id number] 04/21 [facility] Outpatient Encounter [id number] 04/22 [facility] HEARING AID CHECK BOTH EARS [id number] Diagnos is: ICD-10- CM Z46.1 Encount er for fitting and adjustm ent of hearing aid CHUY ORTIZ 04/29 [facility] En[facility] [id number] 05/19 [facility] HEARING AID FITTING/CH ECKING [id number] Diagnos is: ICD-10- CM Z46.1 Encount er for fitting and adjustm ent of hearing aid ILANA PITTS 05/20 [facility] En[facility] [id number] 06/24 [facility] Out[facility] En[facility] [id number] 07/28 [facility] Social History Combined list of available smoking, tobacco, and other social history from Department of Defense and Veterans Affairs facilities. Social History Type Response Date Comment Sourc e Tobacco smoking status NHIS VA-TOBACCO FORMER USER 04/11/2024 [facility] History of tobacco use VA-TOBACCO QUIT 5 TO < 15 YRS 04/11/[address] [facility] History of tobacco use ID-TOBACCO FORMER USER 09/24/2023 [facility] History of tobacco use ID-TOBACCO QUIT 5 TO < 15 YRS 04/09/[address] [facility] History of tobacco use ID-TOBACCO QUIT 5 TO < 15 YRS 04/13/[address] [facility] History of tobacco use ID-TOBACCO QUIT 5 TO < 15 YRS 04/12/[address] [facility] History of tobacco use ID-TOBACCO QUIT 5 TO < 15 YRS 03/19/[address] [facility] History of tobacco use ID-TOBACCO QUIT 5 TO < 15 YRS 12/12/[address] [facility] History of tobacco use QUIT TOBACCO USE > 7 YEARS AGO 01/21/[address] [facility] History of tobacco use QUIT TOBACCO USE > 7 YEARS AGO 12/25/[address] [facility] Plan of Care List of future care activities from Department [facility] facilities. Additional future care activities may be listed in the Assessment and Plan section. Date/Time Care Activity Care Activity Detail Facili ty 01/13/2025 AMBULATORY - MEDICINE AMBULATORY - MEDICI [facility] Advance Directives List of completed, amended, or rescinded Advance Directives on record at Department [facility] facilities. An actual copy of the Directive is not included. Date Advance Directive Provider Source 05/23/2015 ADVANCE DIRECTIVE AMBER [facility]
[2024-09-09 09:58] VITALS: BP 120/78; PULSE 86; RESP 20; TEMP 36.7; O2SAT 96; BMI 33.2
--- NOTE | 2024-09-09 09:58 | MHC.OFFWIV ---
Intake Vital Signs 09/09/24 09:58 Height 5 ft 6 in Weight 206 lb BMI 33.2 BP 120/78 Blood Pressure Location Lt brachial Position Sitting Respiration 20 Pulse 86 Pulse Source Pulse Oximeter Temp 98.0 F Temp Source Oral Pulse Oximetry (%) 96 Oxygen Delivery Method Room Air Intake Visit Reasons: EP-cough, chills, fever, vomiting, body ache Intake Note: Pt is here today for a walk in visit. Pt c/o cough, chills fever vomiting and body aches since Sunday. Patient Tobacco Use Status: Former Tobacco user Allergies dronedarone [From Multaq] Allergy (Mild, Verified 09/09/24 10:02) Rash amoxicillin [From Augmentin] Allergy (Verified 09/09/24 10:02) liver failure clavulanic acid [From Augmentin] Allergy (Verified 09/09/24 10:02) liver failure Penicillins Adverse Reaction (Intermediate, Verified 09/09/24 10:02) Unknown HPI HPI Comments History of Present Illness Details This is a 74-year-old male with a past medical history of atrial fibrillation currently maintained on Eliquis, hyperlipidemia and COPD not currently oxygen dependent presenting for evaluation of fevers to 101?, chills, nausea, vomiting and cough that started suddenly on Sunday. Patient has been taking ibuprofen for his fevers in his last dose was this morning. [facility] Medical History Bladder cancer Atrial fibrillation SVT (supraventricular tachycardia) LBBB (left bundle branch block) PVC (premature ventricular contraction) Hypercholesterolemia Asthma COPD (chronic obstructive pulmonary disease) Jaundice ANALY on CPAP Cough Personal history of nicotine dependence History of COVID-19 History of small bowel obstruction GERD (gastroesophageal reflux disease) Erectile dysfunction Obesity (BMI 30-39.9) Surgical History History of foot surgery (~2021) History of laparotomy (~2020) History of arthroplasty of right knee (~2020) History of meniscectomy of right knee (~2011) History of cataract surgery (~2020) History of appendectomy History of arthroplasty of left knee (~2019) History of meniscectomy of left knee (~2018) History of bladder surgery Hx of transurethral destruction of bladder lesion Family History Father Lung cancer Mother History of breast cancer Sister Multiple myeloma Other Cough Social History Household Members: Spouse Housing: House Are you a primary career services coordinator to a significant other at home: No Do you presently have visiting nurse or other home services: No Alcohol intake: former Patient Tobacco Use Status: Former Tobacco user Tobacco use type: Cigarette Years Smoked: (former smoker - onset 14yo, 1ppd x 46yrs, 45pyh, quit 2009) e-Cigarette/Vaping Use: Never Used Second Hand Smoke Exposure: No Advance Directives Date on File: 02/14/21 service: Yes ([employer] - served in [employer]) Current occupational status: retired Current occupational exposures/hazards: Yes (was exposed to [place] while serving in [employer] Cognitive needs: No Hearing needs: Yes (hearing aide) Vision needs: No Review of Systems Const All systems reviewed & are unremarkable except as noted in HPI and below Reports body aches, Reports chills, Reports fatigue, Reports fever(s) and Denies headache(s) Eyes Reports no additional complaints ENT Reports no additional complaints and Denies headache(s) Card Denies chest pain, Denies dyspnea and Denies dyspnea on exertion Resp Reports chest congestion, Reports cough, Denies dyspnea and Denies dyspnea on exertion GI Reports no additional complaints, Denies diarrhea, Reports nausea and Reports vomiting Reports no additional complaints Musc Reports no additional complaints Skin/Breast Reports system reviewed and no additional complaints, except as documented Neuro Reports no additional complaints and Denies headache(s) Psych Reports no additional complaints Endo Reports no additional complaints and Reports fatigue Zoltan/Lymph Reports no additional complaints Aller/Immun Reports no additional complaints Physical Exam Vital Signs: Last Vital Signs Temp 98.0 F 09/09/24 09:58 Pulse 86 09/09/24 09:58 Resp 20 09/09/24 09:58 BP 120/78 09/09/24 09:58 Pulse Ox 96 09/09/24 09:58 Oxygen Delivery Method Room Air 09/09/24 09:58 BMI result Body Mass Index 33.2 Patient is afebrile. Const General: cooperative, no acute distress and well developed Nutritional Appearance: well nourished Orientation/consciousness: patient oriented x3 Limitations: no limitations HEENT Head: Yes normal to inspection and Yes normocephalic Ears: hearing grossly normal bilaterally and external ears normal General nose exam: Normal external nose present Resp Effort & Inspection: normal respiratory effort, able to speak in complete sentences, no audible wheezes, Actively coughing and respiratory effort not decreased Auscultation: wheezes expiratory wheezes and throughout Cardio Rate: regular rate Rhythm: regular rhythm Heart sounds: no murmurs Skin General skin exam: no rashes or lesions noted Neuro General: patient oriented x3 Psych Appearance: grossly normal Mental Status: mental status grossly normal Insight: Good insight present (Psych) Judgement: Good judgement present (Psych) Assessment & Plan Assessment & Plan (1) Influenza: Code(s): J11.1 - Influenza due to unidentified influenza virus with other respiratory manifestations Plan SARS panel is ordered and results are pending. Patient is advised to use Tylenol instead of ibuprofen for his fevers and myalgias given that he is on Eliquis daily. Orders: Orders SARS-CoV2/FLU/RSV Today J06.9 - Acute upper respiratory infection, unspecified Medications: New oseltamivir (Tamiflu) 75 mg PO BID 5 days 10 caps 0RF Patient Instructions: Tamiflu b.i.d. x5 days, Tylenol as needed for fevers. Coding Level of Care Code Est Pt Level 3 (52208) Diagnoses Influenza J11.1 Time Spent (min) 20
== END 2024-09-09 10:50 | disposition home or self-care (01) ==
PROVIDERS: PCP Internal Medicine; Visit Provider Physician Assistant
DX: J11.1 Influenza due to unidentified influenza virus with other respiratory manifestations (principal)

== ENCOUNTER 2024-09-09 08:55 | Outpatient (REF) | payer MEDICARE, SELFPAY ==
[2024-09-09 14:49] LABS: Influenza A PCR NEGATIVE (Negative); Influenza B PCR NEGATIVE (Negative); Resp Syncy Virus RNA Qual PCR NEGATIVE (Negative); SARS COV2 PCR INHOUSE NEGATIVE (Negative)
--- OUTSIDE RECORDS SUMMARY | 2024-09-09 17:05 | XMS_ITS | Patient Health Record ---
Author Organization [facility] Address [address] [place] [address] Care Team Providers Care Outboard Motorboat Rigger Name Role Phone Po Any CUI Primary Care Provider Unavailfaith e Darrian Khan Unavailable [phone] XUAN SHEARER Unavailable Unavailab le ALLERGIES Allergen (clinical drug ingredient) Drug/Non Drug Allergy documented on EMR Reaction Allergy Type Onset Date Status doxycycline Doxycycline jaundice Drug Allergy Act eva amoxicillin Amoxicillin jaundice Drug Allergy Act eva RESULTS Component Value Reference Range Notes Ammonia Reviewed date:02/29/2024 07:55:27 PM Interpretation: Performing Lab:[facility], [address] [place] [phone] Notes/Report: Ammonia 28 13-55 umol/L Complete Blood Count no Diff Reviewed date:02/22/2024 05:51:08 PM Interpretation: Performing Lab:[facility], [address] [place] [phone] Notes/Report: White Blood Count 5.7 4.8-10.8 X10*3/uL [...] INR Reviewed date:02/22/2024 05:55:38 PM Interpretation: Performing Lab:[facility], [address] [place] [phone] Notes/Report: Prothrombin Time 12.9 11.1-13.3 SEC INTERNATIONAL [...] Panel Reviewed date:02/22/2024 06:05:52 PM Interpretation: Performing Lab:[facility], [address] [place] [phone] Notes/Report: Bilirubin Total 4.7 0.0-1.0 mg/dL Bilirubin Direct 3.4 0.0-0.5 mg/dL Aspartate Amino Transferase 52 5-37 U/L Alanine Aminotransferase 77 0-40 U/L Total Protein 7.7 6.5-8.0 g/dL Albumin Level 4.0 3.5-5.0 g/dL Alkaline Phosphatase 141 39-117 U/L IRON PROFILE Reviewed date:02/22/2024 05:55:56 PM Interpretation: Performing Lab:[facility], [address] [place] [phone] Notes/Report: Iron 127 45-160 mcg/dL Total Iron Binding Capacity 291 228-428 mcg/d L Percent Iron Saturation 44 15-50 % Unsaturated Iron Binding 164 Ferritin Reviewed date:02/22/2024 05:56:05 PM Interpretation: Performing Lab:[facility], [address] [place] [phone] Notes/Report: Ferritin 366 20-250 ng/mL SANDY Reflex Titer and Pattern Reviewed date:02/25/2024 10:47:25 PM Interpretation: Performing Lab:[facility], [address] [place] [phone] Notes/Report: Anti Nuclear Antibody Screen NEGATIVE NEGATIVE [...] Negative International Consensus on SANDY Patterns (https://doi.org/10.1515/c yab-0925-1615) For additional information, please refer to http://education.Goodreads/faq/NFG521 (This link is being provided for informational/ educational purposes only.) THIS TEST WAS PERFORMED AT: [facility] [address] [place] [phone] AMILCAR ZABALA MD Anti Nuclear Antibody Titer TNP Anti Nuclear Antibody Pattern TNP SANDY Titer 2 TNP SANDY Pattern 2 TNP SANDY Titer 3 TNP SANDY Pattern 3 TNP Mitochondrial Antibody Reviewed date:03/03/2024 11:29:34 PM Interpretation: Performing Lab:[facility], [address] [place] [phone] Notes/Report: Mitochondrial Antibodies NEGATIVE NEGATIVE The specimen was negative for cytoplasmic antibodies, however additional staining was observed suggesting the presence of Antinuclear Antibodies. Consider requesting order code 249, SANDY Screen, IFA with Reflex to Titer and Pattern, or order code [id number], SANDY Screen, IFA w/reflex Titer/Pattern, and Reflex to Multiplex 11 [place], if clinically indicated. THIS TEST WAS PERFORMED AT: [facility] [address] [place] [phone] AMILCAR ZABALA MD Mitochondrial Ab Titer TNP Smooth Muscle Antibody Reviewed date:03/03/2024 11:29:41 PM Interpretation: Performing Lab:[facility], [address] [place] [phone] Notes/Report: Smooth Muscle Antibody <20 <20 U [...] type 1. THIS TEST WAS PERFORMED AT: [facility]/[address] [phone] ANGEL VIDAL MD,PHD Hepatitis A,B,C Profile Reviewed date:02/22/2024 05:56:33 PM Interpretation: Performing Lab:[address] [phone] Notes/Report: Hepatitis A Antibody IgM Nonreactive Nonreactive IgM antibodies to HAV not detected; does not exclude early acute or recovered HAV infection. Hepatitis B Surface Antibody NONREACTIVE Nonreactive Nonreactive: < 8.00 mIU/mL Hepatitis B Core Antibody Nonreactive Nonreactive Hepatitis C Antibody Nonreactive Nonreactive Antibodies to HCV not detected; does not exclude early acute HCV infection. Hepatitis B Surface Antigen Negative Negative Complete Blood Count Auto Di ff Reviewed date:02/29/2024 07:54:38 PM Interpretation: Performing Lab:[address] [phone] Notes/Report: White Blood Count 6.5 4.8-10.8 X10*3/uL [...] Time Reviewed date:02/29/2024 07:54:46 PM Interpretation: Performing Lab:[address] [phone] Notes/Report: Partial Thromboplastin Time 39.0 26.0-36.8 SEC For information regarding the monitoring of direct thrombin inhibitors, please refer to Pharmacy. Liver Panel Reviewed date:03/02/2024 11:08:18 PM Interpretation: Performing Lab:[address] [phone] Notes/Report: Bilirubin Total 2.5 0.0-1.0 mg/dL Bilirubin Direct 1.6 0.0-0.5 mg/dL Aspartate Amino Transferase 58 5-37 U/L Alanine Aminotransferase 87 0-40 U/L Total Protein 7.4 6.5-8.0 g/dL Albumin Level 3.8 3.5-5.0 g/dL Alkaline Phosphatase 111 39-117 U/L Basic Metabolic Panel Reviewed date:02/29/2024 07:55:19 PM Interpretation: Performing Lab:[address] [phone] Notes/Report: Sodium 140 135-145 mmol/L Potassium 4.6 3.3-5.1 mmol/L Chloride 104 96-108 mmol/L Carbon Dioxide 30 22-29 mmol/L Anion Gap 11 12-20 Blood Urea Nitrogen 15 9-16 mg/dL Creatinine 0.96 0.5-1.4 mg/dL Estimated Glomerular Filt Rate > 60 NOTE: For -Luxembourger individuals, multiply the result by 1.210. Chronic Kidney Disease: Estimated GFR < 60 mL/min/1.73m2 Severe Kidney Disease: Estimated GFR < 15 mL/min/1.73m2 Glucose Random 98 60-115 mg/dL Calcium 10.1 8.4-10.2 mg/dL Liver Panel Reviewed date:03/12/2024 07:33:03 AM Interpretation: Performing Lab:[facility], [address] [place] [phone] Notes/Report: Bilirubin Total 1.3 0.0-1.0 mg/dL Bilirubin Direct 0.8 0.0-0.5 mg/dL Aspartate Amino Transferase 37 5-37 U/L Alanine Aminotransferase 71 0-40 U/L Total Protein 7.7 6.5-8.0 g/dL Albumin Level 4.1 3.5-5.0 g/dL Alkaline Phosphatase 90 39-117 U/L Blood Urea Nitrogen Reviewed date:03/10/2024 11:20:43 PM Interpretation: Performing Lab:[facility], [address] [place] [phone] Notes/Report: Blood Urea Nitrogen 15 9-16 mg/dL Creatinine Reviewed date:03/10/2024 11:20:50 PM Interpretation: Performing Lab:[facility], [address] [place] [phone] Notes/Report: Creatinine 0.86 0.5-1.4 mg/dL Estimated Glomerular Filt Rate > 60 NOTE: For -Luxembourger individuals, multiply the result by 1.210. Chronic Kidney Disease: Estimated GFR < 60 mL/min/1.73m2 Severe Kidney Disease: Estimated GFR < 15 mL/min/1.73m2 Liver Panel Reviewed date:03/31/2024 08:49:38 AM Interpretation: Performing Lab:[facility], [address] [place] [phone] Notes/Report: Bilirubin Total 1.1 0.0-1.0 mg/dL Bilirubin [...] malignant neoplasm of colon (Z12.11) Active confirmed [id number] Problem Elevated LFTs (R79.89) Active confirmed [id number] Problem Preprocedural examination (Z01.818) Active confirmed [id number] Problem Iron excess (E83.19) Active confirmed 58390932 Problem Jaundice (R17) Active confirmed Jaundic e (30640298) Problem Hx of adenomatous colonic polyps (Z86.010) Active confirmed 241333216 Problem Pruritus (L29.9) Active confirmed Pruri tus (933198986) Problem Elevated liver function tests (R94.5) Active confirmed Elevated liver enzymes level (417919718) VITAL SIGNS Blood pressure diastolic 00 mm Hg 05/16/2024 Height 66 in 05/16/2024 Blood pressure systolic 00 mm Hg 05/16/2024 Weight 205 lbs 05/16/2024 BMI 33.08 kg/m2 05/16/2024 Encounters Encounter Location Date Provider Diagnosis [facility] [address] [place] [phone] 02/26/2024 Darrian Khan Jaundice R17 and Pruritus L29.9 [facility] [address] [place] [phone] 05/16/2024 Darrian Khan Hx of adenomatous colonic polyps Z86.010 ; Jaundice R17 and Encounter for screening for malignant neoplasm of colon Z12.11 [place] [address] 02/19/2024 Darrian Khan Elevated LFTs R79.89 [facility] [address] [place] [phone] 03/02/2024 Darrian Khan Elevated liver function tests R94.5 [facility] [place] [phone] 03/13/2024 Darrian Khan Elevated liver function tests [...] CHEM 7 PROFILE 06/16/2022 CHEM 7 PROFILE 06/14/2022 CHEM 7 PROFILE 02/26/2024 LIVER PROFILE 06/21/2022 LIVER PROFILE 03/02/2024 LIVER PROFILE 08/11/2022 LIVER PROFILE 03/13/2024 LIVER PROFILE 02/19/2024 LIVER PROFILE 06/29/2022 LIVER PROFILE 06/16/2022 LIVER PROFILE 06/14/2022 LIVER PROFILE 08/11/2022 LIVER PROFILE 02/26/2024 IRON + IBC (FE) 08/11/2022 IRON + IBC (FE) 02/19/2024 IRON + IBC (FE) 06/16/2022 IRON + IBC (FE) 08/11/2022 FERRITIN 02/19/2024 CRP 06/16/2022 CBC w DIFF 02/26/2024 CBC w DIFF 06/14/2022 CBC w/o DIFF 02/19/2024 SED RATE (ESR) 06/16/2022 PROTHROMBIN TIME (PT, INR) 02/19/2024 PROTHROMBIN TIME (PT, INR) 06/16/2022 PROTHROMBIN TIME (PT, INR) 06/21/2022 PROTHROMBIN TIME (PT, INR) 02/26/2024 HEPATITIS A,B,C PROFILE 02/19/2024 HEPATITIS A,B,C PROFILE 06/16/2022 [id number] (A1A) 06/16/2022 MITOCHONDRIAL AB 02/19/2024 SMOOTH MUSCLE ANTIBODIES 02/19/2024 MRI ABD W&WO CONTRAST 06/16/2022 FLUOR. ANTINUCLEAR AB SCREEN ([facility]) 08/2021 FLUOR. ANTINUCLEAR AB SCREEN ([facility]) 12/2023 Prothrombin Time INR 06/29/2022 Ferritin 08/11/2022 Ferritin 08/11/2022 Future Test Test Name Order Date COLONOSCOPY 01/27/2014 COLONOSCOPY 11/20/2019 Next Appt Details Provider Name:Darrian Allen Khan , 11/20/2024 09:40:00 AM, [address] [place] [address], [facility] [address], [place], [address], Insurance Providers Payer Name Payer Address Payer Phone Subscriber Number Group Number Insured Name Patient Relationship to Insured Coverage Start Date Coverage End Date [facility] [address] [address] [place] [address] [id number] GENEVIEVE ARNOLD Self - patient is the [...] Knee replacement-partial--- left 08/2019 Right big toe [id number]. [place] 2020
--- OUTSIDE RECORDS SUMMARY | 2024-09-09 17:05 | XMS_ITS | Continuity of Care Document ---
Author Name [facility] Organization [facility] Care Team Providers Care Resident Services Supervisor Name Role Phone [facility] Unavailable Unavailable Problems Combined list of problems [...] HCS Exposure to potentially hazardous substance (SCT [id number]) Active Condition Oct 18 4 Entered By: LIUDMILA SUBRAMANIAN Comment: Entered automatically through [facility] Problem List documentation program [facility] Exposure to potentially hazardous substance (SCT [id number]) Active Condition Apr 15 4 Entered By: [...] EMMANUEL JI Comment: DR Corrie BLANTON ( [facility]) - visit 12/11/18Ju2017 Entered By: EMMANUEL JI Comment: [place] - SEE DEVIL DOG [place] IN [place] ( JUN THRU NOVEMBER )Apr 30, 2018 Entered By: EMMANUEL JI Comment: [facility] -December 12, 2018 Entered By: EMMANUEL JI Comment: NON [facility] ( [place] ( [facility]- DR Del [...] H90.3 Sensorineural hearing loss, bilateral Active Diagnosis [facility] Diagnosis: ICD-10-CM 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 [facility] Medications Combined list of outpatient [...] G RESPIR ATORY (INHAL ATION) ACTIVE 04/18/2025 [id number] PERCY BULLOCK 2023 60 [facility] APIXABAN 5MG TAB TAKE ONE TABLET BY MOUTH EVERY 12 HOURS ORAL ACTIVE RA DARREN RODRIGUEZ 2021 [facility] APIXABAN 5MG TAB TAKE ONE TABLET BY MOUTH EVERY 12 HOURS ORAL ACTIVE AZARBSharyn RAZO 2023 [facility] ASPIRIN 81MG TAB,EC TAKE ONE TABLET BY MOUTH TWICE DAILY ORAL complet Mike Martinez 2018 [facility] CETIRIZINE HCL 10MG TAB TAKE ONE-HALF TABLET BY MOUTH EVERY DAY ORAL ACTIVE AZARBALSharyn 2023 [facility] DOCETAXEL INJ,CONC INJECT INTRAVEN OUSLY INTRAV ENOUS ACTIVE AZARBALJ KOTA [address] [facility] DOCUSATE NA 250MG CAP TAKE 1 CAPSULE BY MOUTH EVERY DAY ORAL ACTIVE AZARBALSharyn [address]23 [facility] FLUTICASONE 250MCG/SALM ETEROL 50MCG INHL,ORAL,D ISKUS,60 INHALE 1 PUFF BY MOUTH EVERY DAY ORAL ACTIVE AZARBALSharyn [address]23 [facility] GEMCITABINE HCL INJ INJ INJECT 200 MG INTRAVEN OUSLY INTRAV ENOUS ACTIVE AZARBALSharyn [address]23 [facility] IPRATROPIUM BR 0.03% SOLN,SPRAY, NASAL 1 SPRAY INTO EACH NOSTRIL EVERY DAY NASAL ACTIVE AZAADANSharyn GUERRA2023 [facility] METOPROLOL SUCCINATE 100MG TAB,SA TAKE ONE-HALF TABLET BY MOUTH TWICE A DAY ORAL ACTIVE AZAADANSharyn GUERRA2023 [facility] METOPROLOL TARTRATE 50MG TAB TAKE ONE TABLET BY MOUTH TWICE DAILY ORAL ACTIVE PETROFF,S 2018 [facility] OMEPRAZOLE 20MG CAP,EC TAKE 1 CAPSULE BY MOUTH EVERY DAY ORAL ACTIVE AZARBALSharyn GUERRA2023 [facility] OMEPRAZOLE 20MG CAP,EC TAKE 1 CAPSULE BY MOUTH EVERY MORNING 30 MINUTES BEFORE BREAKFAS T ORAL ACTIVE PETROFF,S 2018 [facility] POLYETHYLEN E GLYCOL 3350 PWDR,ORAL TAKE 17 GM (ONE CAPFUL) BY MOUTH EVERY DAY ORAL ACTIVE MARGARETSharyn GUERRA2023 [facility] PREDNISONE 20MG TAB TAKE TWO TABLETS BY MOUTH ONCE DAILY COPD FLARE ORAL 05/11/2024 [id number] PERCY BULLOCK 2023 10 [facility] SIMVASTATIN 80MG TAB TAKE ONE-HALF TABLET BY MOUTH AT BEDTIME ORAL ACTIVE PETROFF,S 2018 [facility] SIMVASTATIN 80MG TAB TAKE ONE-HALF TABLET BY MOUTH AT BEDTIME ORAL ACTIVE CLAUDIAPEDRITODANNISharyn GUERRA2023 [facility] TIOTROPIUM 18MCG CAP,INHL,30 INSERT 1 CAPSULE INTO AEROLIZE R AND INHALE BY MOUTH EVERY DAY RESPIR ATORY (INHAL ATION) ACTIVE MARGARETSharyn 2023 [facility] Allergies, Adverse Reactions, Alerts Combined [...] drug (finding) Nausea and vomiting active 4 [facility] MULTAQ Propensity to adverse reactions to drug (finding) Eruption [facility] Immunizations Combined list of available immunizations from the Department of Defense and Veterans Affairs facilities. Immunization Series Date Given Administered By Site Reaction Lot Number CVX Code Drug Electronic Gluer Status Comments Source INFLUENZA, HIGH-DOSE, TRIVALENT, PF 2023 ALEC BENTLEY RIGHT DELTO ID [id number] 135 complet ed [facility] RSV, BIVALENT, PROTEIN SUBUNIT RSVPREF, DILUENT RECONSTITUTED , 0.5 ML, PF 2023 MCALEC L LEFT DELTO ID [id number] 305 complet ed Sterile water diluent Lot #- [id number] 11/2024 [facility] RSV, RECOMBINANT, PROTEIN SUBUNIT RSVPREF, ADJUVANT RECONSTITUTED , 0.5 ML, PF [address] [facility] INFLUENZA, HIGH-DOSE, QUADRIVALENT 2022 ALEC BENTLEY LEFT DELTO ID [id number] 197 complet ed [facility] INFLUENZA, UNSPECIFIED FORMULATION [address] [facility] COVID-19 (PFIZER), MRNA, LNP-S, PF, 30 MCG/0.3 ML DOSE 2020 208 complet ed [facility] INFLUENZA, UNSPECIFIED FORMULATION 2020 88 complet ed [facility] COVID-19 (PFIZER), MRNA, LNP-S, PF, 30 MCG/0.3 ML DOSE 2 2020 208 complet ed [facility] COVID-19 (PFIZER), MRNA, LNP-S, PF, 30 MCG/0.3 ML DOSE 1 2020 208 complet ed [place] ZOSTER RECOMBINANT [address] [facility] ZOSTER RECOMBINANT 1 [address] [facility] INFLUENZA, TRIVALENT, ADJUVANTED 2018 168 complet ed Site: Left Deltoid [facility] INFLUENZA, SEASONAL, INJECTABLE 2017 141 complet ed Site: Left Deltoid [facility] INFLUENZA, SEASONAL, INJECTABLE 2016 141 complet ed [facility] PNEUMOCOCCAL CONJUGATE PCV 13 2015 133 complet ed [facility] [place] PNEUMOCOCCAL POLYSACCHARID E PPV23 2014 33 complet ed [facility] TDAP 2014 115 complet ed [facility] [place] Vital Signs Combined list of inpatient and outpatient Vital Signs from Department of Defense and Veterans Affairs, ranging from 12 months to all on record, depending upon the facility. Vital Sign Value Date Comments Source SYSTOLIC BLOOD PRESSURE 125 04/11/20 24 09:48:39 [facility] DIASTOLIC BLOOD PRESSURE 80 024 09:48:39 [facility] PULSE OXIMETRY 94 04/11/2024 09:48:39 [facility] WEIGHT 208.2 04/11/2024 09:48:39 [facility] BMI 34 kg/m2 04/11/2024 09:48:39 [facility] PAIN 1 04/11/2024 09:48:39 [facility] TEMPERATURE 97.5 04/11/2024 09:48:39 [facility] PULSE 68 04/11/2024 09:48:39 [facility] RESPIRATION 16 04/11/2024 09:48:39 [facility] SYSTOLIC BLOOD PRESSURE 129 09/24/19 24 09:24:42 [facility] DIASTOLIC BLOOD PRESSURE 86 024 09:24:42 [facility] PULSE OXIMETRY 97 09/24/2023 09:24:42 [facility] WEIGHT 206 09/24/2023 09:24:42 [facility] BMI 33 kg/m2 09/24/2023 09:24:42 [facility] PAIN 3 09/24/2023 09:24:42 [facility] HEIGHT 66 09/24/2023 09:24:42 [facility] TEMPERATURE 98 09/24/2023 09:24:42 [facility] PULSE 65 09/24/2023 09:24:42 [facility] RESPIRATION 18 09/24/2023 09:24:42 [facility] Encounters Combined list of: 1) Encounters from Department of Veterans Affairs facilities going backup to the last 18 months, not all [place] inpatient encounters are included; 2) Encounters from the Department of [facility] facilities going backup to 280 months. Location Location Details Encounter Type Encounter Number Reason For Visit Attending Provider ADM Date DC Date Status Disposition Source [facility] Outpatient Encounter [id number] 04/09 [facility] OFFICE O/P EST MOD 30-39 MIN [id number] Diagnos is: ICD-10- CM I48.91 Unspeci fied atrial fibrill ation Corrie BULLOCK 04/09 [place] [facility] Outpatient Encounter [id number] 06/05 [facility] Outpatient Encounter [id number] 09/19 [facility] Outpatient Encounter [id number] 09/23 [facility] OFFICE O/P [place] 60 MIN [id number] Diagnos is: ICD-10- CM D09.0 Carcino ma in situ of bladder LYNNETTE ROBLES 09/23 [facility] TARGETED CASE MANAGEMENT [id number] KARELY ARANA 09/25 [facility] [place] HEARING AID FITTING/CH ECKING [id number] Diagnos is: ICD-10- CM Z46.1 Encount er for fitting and adjustm ent of hearing aid Tiesha HERR 12/19 [facility] Outpatient Encounter [id number] 02/07 [facility] Outpatient Encounter [id number] 02/07 [facility] HEARING AID REPAIR/MOD IFYING [id number] Diagnos is: ICD-10- CM H90.3 Sensori neural hearing loss, bilater al JASMEETILANA ELITim L 03/10 [facility] OFFICE O/P EST MOD 30 MIN [id number] Diagnos is: ICD-10- CM I48.91 Unspeci fied atrial fibrill ation ARA,L MICH KYMBERLY 04/11 [facility] HEARING SERVICE [id number] Diagnos is: ICD-10- CM Z46.1 Encount er for fitting and adjustm ent of hearing aid JASMEETILANA ELI SATURNINO L 04/11 [facility] Outpatient Encounter [id number] 04/12 [facility] SPECIAL SUPPLIES PHYS/QHP [id number] Diagnos is: ICD-10- CM J44.9 Chronic obstruc tive pulmona ry disease , unspeci fied ST AMHOLLIE MONTOYA E P 04/17 [facility] Outpatient Encounter [id number] 04/18 [facility] Outpatient Encounter [id number] 04/18 [facility] Outpatient Encounter [id number] 04/21 [facility] Outpatient Encounter [id number] 04/22 [facility] HEARING AID CHECK BOTH EARS [id number] Diagnos is: ICD-10- CM Z46.1 Encount er for fitting and adjustm ent of hearing aid CHUY ORTIZ 04/29 [facility] Out[facility] Encounter [id number] 05/19 [facility] HEARING AID FITTING/CH ECKING [id number] Diagnos is: ICD-10- CM Z46.1 Encount er for fitting and adjustm ent of hearing aid ILANA PITTS 05/20 [facility] Out[facility] Encounter [id number] 06/24 [facility] Out[facility] Encounter [id number] 07/28 [facility] Social History Combined list of available smoking, tobacco, and other social history from Department of Defense and Veterans Affairs facilities. Social History Type Response Date Comment Sourc e Tobacco smoking status NHIS VA-[facility]BACCO FORMER USER 04/11/2024 [facility] History of tobacco use VA-TOBACCO QUIT 5 TO < 15 YRS 04/11/2024 [facility] History of tobacco use [place] FORMER USER 09/24/2023 [facility] History of tobacco use TN-TOBACCO QUIT 5 TO < 15 YRS 04/09/2023 [facility] History of tobacco use TN-TOBACCO QUIT 5 TO < 15 YRS 04/13/2022 [facility] History of tobacco use TN-TOBACCO QUIT 5 TO < 15 YRS 04/12/2021 [facility] History of tobacco use TN-TOBACCO QUIT 5 TO < 15 YRS 03/19/2020 [facility] History of tobacco use [place]-TOBACCO QUIT 5 TO < 15 YRS 12/12/2018 [facility] History of tobacco use QUIT TOBACCO USE > 7 YEARS AGO 01/21/2018 [facility] History of tobacco use QUIT TOBACCO USE > 7 YEARS AGO 12/25/2016 [facility] Plan of Care List of future care activities from Department [facility] facilities. Additional future care activities may be listed in the Assessment and Plan section. Date/Time Care Activity Care Activity Detail Facili ty 01/13/2025 AMBULATORY - MEDICINE AMBULATORY - MEDICI [facility] Advance Directives List of completed, amended, or rescinded Advance Directives on record at Department [facility] facilities. An actual copy of the Directive is not included. Date Advance Directive Provider Source 05/23/2015 ADVANCE DIRECTIVE AMBER PENA [facility]
== END 2024-09-09 08:56 | disposition home or self-care (01) ==
LOC: HO.LNP 08:55
PROVIDERS: PCP Internal Medicine; Visit Provider Physician Assistant
DX: J06.9 Acute upper respiratory infection, unspecified (principal)
CPT/HCPCS: 0241U; 99212

== ENCOUNTER 2024-09-11 08:18 | Outpatient (REF) | payer MEDICARE, SELFPAY ==
--- NOTE | ~2024-09-11 | XR_ITS ---
EXAMINATION: XR CHEST CLINICAL INFORMATION: R05.3 - Chronic cough COMPARISON: April 16, 2024 TECHNIQUE: 2 views of the chest were obtained. FINDINGS: Linear opacity left lower hemithorax. Pulmonary reticular pattern. No hyperinflation. No pleural effusion. No pneumothorax. Cardiomediastinal silhouette size is normal. Calcified plaque thoracic aortic arch. Multilevel thoracic spondylosis. XR/XR chest 2V IMPRESSION: Acute on chronic airspace disease involving mostly the left lower lung lobe. Electronically signed by: Unruly Zayas MD 09/11/2024 09:51 AM EST
--- OUTSIDE RECORDS SUMMARY | 2024-09-11 10:17 | XMS_ITS | Continuity of Care Document ---
Author Name [facility] Organization [facility] Care Team Providers Care Line And Frame Poler Name Role Phone [facility] Unavailable Unavailable Problems Combined list of problems [...] HCS Exposure to potentially hazardous substance (SCT [id number]) Active Condition Oct 18 4 Entered By: LIUDMILA SUBRAMANIAN Comment: Entered automatically through [facility] Problem List documentation program [facility] Exposure to potentially hazardous substance (SCT [id number]) Active Condition Apr 15 4 Entered By: [...] EMMANUEL JI Comment: DR Corrie BLANTON ( [facility]) - visit 12/11/18Ju2017 Entered By: EMMANUEL JI Comment: [place] - [place] 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 IN [place] ( JUN THRU NOVEMBER )Apr 30, 2018 Entered By: EMMANUEL JI Comment: [facility] -December 12, 2018 Entered By: EMMANUEL JI Comment: [place] ( [place] ( [facility]- DR Del Valle / Lenin COHEN [...] H90.3 Sensorineural hearing loss, bilateral Active Diagnosis [facility] Diagnosis: ICD-10-CM 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 [facility] Medications Combined list of outpatient [...] G RESPIR ATORY (INHAL ATION) ACTIVE 04/18/2025 [id number] PERCY BULLOCK 2023 60 [facility] APIXABAN 5MG TAB TAKE ONE TABLET BY MOUTH EVERY 12 HOURS ORAL ACTIVE RA DARREN RODRIGUEZ 2021 [facility] APIXABAN 5MG TAB TAKE ONE TABLET BY MOUTH EVERY 12 HOURS ORAL ACTIVE AZARBSharyn RAZO 2023 [facility] ASPIRIN 81MG TAB,EC TAKE ONE TABLET BY MOUTH TWICE DAILY ORAL complet Mike Martinez 2018 [facility] [place] CETIRIZINE HCL 10MG TAB TAKE ONE-HALF TABLET BY MOUTH EVERY DAY ORAL ACTIVE AZARBALSharyn 2023 [facility] DOCETAXEL INJ,CONC INJECT INTRAVEN OUSLY INTRAV ENOUS ACTIVE AZARBALJ KOTA 2023 [facility] DOCUSATE NA 250MG CAP TAKE 1 CAPSULE BY MOUTH EVERY DAY ORAL ACTIVE AZARBALSharyn 2023 [facility] FLUTICASONE 250MCG/SALM ETEROL 50MCG INHL,ORAL,D ISKUS,60 INHALE 1 PUFF BY MOUTH EVERY DAY ORAL ACTIVE AZARBALSharyn 2023 [facility] GEMCITABINE HCL INJ INJ INJECT 200 MG INTRAVEN OUSLY INTRAV ENOUS ACTIVE AZARBALSharyn 2023 [facility] IPRATROPIUM BR 0.03% SOLN,SPRAY, NASAL 1 SPRAY INTO EACH NOSTRIL EVERY DAY NASAL ACTIVE AZAADANSharyn GUERRA2023 [facility] METOPROLOL SUCCINATE 100MG TAB,SA TAKE ONE-HALF TABLET BY MOUTH TWICE A DAY ORAL ACTIVE AZAADANSharyn GUERRA2023 [facility] METOPROLOL TARTRATE 50MG TAB TAKE ONE TABLET BY MOUTH TWICE DAILY ORAL ACTIVE PETROFF,S 2018 [facility] OMEPRAZOLE 20MG CAP,EC TAKE 1 CAPSULE BY MOUTH EVERY DAY ORAL ACTIVE AZARBALSharyn GUERRA2023 [facility] OMEPRAZOLE 20MG CAP,EC TAKE 1 CAPSULE BY MOUTH EVERY MORNING 30 MINUTES BEFORE BREAKFAS T ORAL ACTIVE PETROFF,S 2018 [facility] POLYETHYLEN E GLYCOL 3350 PWDR,ORAL TAKE 17 GM (ONE CAPFUL) BY MOUTH EVERY DAY ORAL ACTIVE MARGARETSharyn GUERRA2023 [facility] PREDNISONE 20MG TAB TAKE TWO TABLETS BY MOUTH ONCE DAILY COPD FLARE ORAL 05/11/2024 [id number] PERCY BULLOCK 2023 10 [facility] SIMVASTATIN 80MG TAB TAKE ONE-HALF TABLET BY MOUTH AT BEDTIME ORAL ACTIVE PETROFF,S 2018 [facility] SIMVASTATIN 80MG TAB TAKE ONE-HALF TABLET BY MOUTH AT BEDTIME ORAL ACTIVE CLAUDIAPEDRITODANNISharyn GUERRA2023 [facility] TIOTROPIUM 18MCG CAP,INHL,30 INSERT 1 CAPSULE INTO AEROLIZE R AND INHALE BY MOUTH EVERY DAY RESPIR ATORY (INHAL ATION) ACTIVE MARGARETSharyn 2023 [facility] Allergies, Adverse Reactions, Alerts Combined list of allergies from Department of Defense and Veterans Affairs facilities. It does not include entries that were removed or entered in error. Substance Category Reaction Severity Reaction type Status Date Reported Comments Source AMOXICILLIN Propensity to adverse reactions to drug (finding) Jaundice SEVERE [facility] CODEINE Propensity to adverse reactions to drug (finding) Nausea and vomiting active 4 [facility] MULTAQ Propensity to adverse reactions to drug (finding) Eruption [facility] [place] Immunizations Combined list of available immunizations from the Department of Defense and Veterans Affairs facilities. Immunization Series Date Given Administered By Site Reaction Lot Number CVX Code Drug Legal Internship Status Comments Source INFLUENZA, HIGH-DOSE, TRIVALENT, PF 2023 ALEC BENTLEY RIGHT DELTO ID [id number] 135 complet ed [facility] [place] RSV, BIVALENT, PROTEIN SUBUNIT RSVPREF, DILUENT RECONSTITUTED , 0.5 ML, PF 2023 MCALEC L LEFT DELTO ID [id number] 305 complet ed Sterile water diluent Lot #- [id number] 11/2024 [facility] RSV, RECOMBINANT, PROTEIN SUBUNIT RSVPREF, ADJUVANT RECONSTITUTED , 0.5 ML, PF 2022 303 complet ed [facility] INFLUENZA, HIGH-DOSE, QUADRIVALENT 2022 ALEC BENTLEY LEFT DELTO ID [id number] 197 complet ed [facility] [place] INFLUENZA, UNSPECIFIED FORMULATION 2022 88 complet ed [facility] COVID-19 (PFIZER), MRNA, LNP-S, PF, 30 MCG/0.3 ML DOSE 2020 208 complet ed [facility] [place] INFLUENZA, UNSPECIFIED FORMULATION 2020 88 complet ed [facility] COVID-19 (PFIZER), MRNA, LNP-S, PF, 30 MCG/0.3 ML DOSE 2 2020 208 complet ed [facility] [place] COVID-19 (PFIZER), MRNA, LNP-S, PF, 30 MCG/0.3 ML DOSE 1 2020 208 complet ed [place] ZOSTER RECOMBINANT 1 2018 187 complet ed [facility] ZOSTER RECOMBINANT 1 2018 187 complet ed [facility] INFLUENZA, TRIVALENT, ADJUVANTED 2018 168 complet ed Site: Left Deltoid [facility] INFLUENZA, SEASONAL, INJECTABLE 2017 141 complet ed Site: Left Deltoid [facility] INFLUENZA, SEASONAL, INJECTABLE 2016 141 complet ed [facility] PNEUMOCOCCAL CONJUGATE PCV 13 2015 133 complet ed [facility] [place] PNEUMOCOCCAL POLYSACCHARID E PPV23 2014 33 complet ed [facility] TDAP 2014 115 complet ed [facility] [place] [place] Vital Signs Combined list of inpatient and outpatient Vital Signs from Department of Defense and Veterans Affairs, ranging from 12 months to all on record, depending upon the facility. Vital Sign Value Date Comments Source SYSTOLIC BLOOD PRESSURE 125 04/11/20 24 09:48:39 [facility] [place] DIASTOLIC BLOOD PRESSURE 80 024 09:48:39 [facility] [place] PULSE OXIMETRY 94 04/11/2024 09:48:39 [facility] [place] WEIGHT 208.2 04/11/2024 09:48:39 [facility] [place] BMI 34 kg/m2 04/11/2024 09:48:39 [facility] PAIN 1 04/11/2024 09:48:39 [facility] [place] TEMPERATURE 97.5 04/11/2024 09:48:39 [facility] [place] PULSE 68 04/11/2024 09:48:39 [facility] RESPIRATION 16 04/11/2024 09:48:39 [facility] [place] SYSTOLIC BLOOD PRESSURE 129 09/24/19 24 09:24:42 [facility] DIASTOLIC BLOOD PRESSURE 86 024 09:24:42 [facility] PULSE OXIMETRY 97 09/24/2023 09:24:42 [facility] WEIGHT 206 09/24/2023 09:24:42 [facility] BMI 33 kg/m2 09/24/2023 09:24:42 [facility] PAIN 3 09/24/2023 09:24:42 [facility] HEIGHT 66 09/24/2023 09:24:42 [facility] TEMPERATURE 98 09/24/2023 09:24:42 [facility] PULSE 65 09/24/2023 09:24:42 [facility] RESPIRATION 18 09/24/2023 09:24:42 [facility] Encounters Combined list of: 1) Encounters from Department of Veterans Affairs facilities going backup to the last 18 months, not all [place] inpatient encounters are included; 2) Encounters from the Department of [facility] facilities going backup to 280 months. Location Location Details Encounter Type Encounter Number Reason For Visit Attending Provider ADM Date DC Date Status Disposition Source [facility] Outpatient Encounter [id number] 04/09 [facility] [place] OFFICE O/P EST MOD 30-39 MIN [id number] Diagnos is: ICD-10- CM I48.91 Unspeci fied atrial fibrill ation Corrie BULLOCK 04/09 [place] [facility] [place] [facility] Outpatient Encounter [id number] 06/05 [facility] Outpatient Encounter [id number] 09/19 [facility] Outpatient Encounter [id number] 09/23 [facility] OFFICE O/P [place] 60 MIN [id number] Diagnos is: ICD-10- CM D09.0 Carcino ma in situ of bladder LYNNETTE ROBLES 09/23 [facility] TARGETED CASE MANAGEMENT [id number] KARELY ARANA 09/25 [facility] [place] HEARING AID FITTING/CH ECKING [id number] Diagnos is: ICD-10- CM Z46.1 Encount er for fitting and adjustm ent of hearing aid Tiesha HERR 12/19 [place] [facility] [place] [facility] Outpatient Encounter [id number] 02/07 [facility] Outpatient Encounter [id number] 02/07 [facility] [place] [facility] HEARING AID REPAIR/MOD IFYING [id number] Diagnos is: ICD-10- CM H90.3 Sensori neural hearing loss, bilater al JASMEETILANA ELITim L 03/10 [facility] [place] [facility] [place] [facility] O/P EST MOD 30 MIN [id number] Diagnos is: ICD-10- CM I48.91 Unspeci fied atrial fibrill ation ARA,L MICH KYMBERLY 04/11 [facility] [place] [facility] HE[facility]ING SERVICE [id number] Diagnos is: ICD-10- CM Z46.1 Encount er for fitting and adjustm ent of hearing aid JASMEETILANA ELI SATURNINO L 04/11 [facility] [place] [facility] Outpatient Encounter [id number] 04/12 [facility] [place] [facility] [place] SPECIAL SUPPLIES PHYS/QHP [id number] Diagnos is: ICD-10- CM J44.9 Chronic obstruc tive pulmona ry disease , unspeci fied ST AMHOLLIE MONTOYA E P 04/17 [facility] [place] [facility] Out[facility] Encounter [id number] 04/18 [facility] [place] Outpatient Encounter [id number] 04/18 [facility] Outpatient Encounter [id number] 04/21 [facility] Outpatient Encounter [id number] 04/22 [facility] [place] HEARING AID CHECK BOTH EARS [id number] Diagnos is: ICD-10- CM Z46.1 Encount er for fitting and adjustm ent of hearing aid CHUY ORTIZ 04/29 [facility] Out[facility] Encounter [id number] 05/19 [facility] HEARING AID FITTING/CH ECKING [id number] Diagnos is: ICD-10- CM Z46.1 Encount er for fitting and adjustm ent of hearing aid ILANA PITTS 05/20 [facility] Out[facility] Encounter [id number] 06/24 [facility] Out[facility] Encounter [id number] 07/28 [facility] Social History Combined list of available smoking, tobacco, and other social history from Department of Defense and Veterans Affairs facilities. Social History Type Response Date Comment Sourc e Tobacco smoking status NHIS VA-TOBACCO FORMER USER 04/11/2024 [facility] History of tobacco use VA-TOBACCO QUIT 5 TO < 15 YRS 04/11/2024 [facility] History of tobacco use [place] 09/24/2023 [facility] History of tobacco use [place] QUIT 5 TO < 15 YRS 04/09/2023 [facility] History of tobacco use [place]ACCO QUIT 5 TO < 15 YRS 04/13/2022 [facility] History of tobacco use [place]-TO[place]ACCO QUIT 5 TO < 15 YRS 04/12/2021 [facility] History of tobacco use [place]-TO[place]ACCO QUIT 5 TO < 15 YRS 03/19/2020 [facility] History of tobacco use [place]ACCO QUIT 5 TO < 15 YRS 12/12/2018 [facility] History of tobacco use QUIT TOBACCO USE > 7 YEARS AGO 01/21/2018 [facility] History of tobacco use QUIT TOBACCO USE > 7 YEARS AGO 12/25/2016 [facility] Plan of Care List of future care activities from Department [facility] facilities. Additional future care activities may be listed in the Assessment and Plan section. Date/Time Care Activity Care Activity Detail Facili ty 01/13/2025 AMBULATORY - MEDICINE AMBULATORY - MEDICI [facility] Advance Directives List of completed, amended, or rescinded Advance Directives on record at Department [facility] facilities. An actual copy of the Directive is not included. Date Advance Directive Provider Source 05/23/2015 ADVANCE DIRECTIVE AMBER PENA [facility]
== END 2024-09-11 08:19 | disposition home or self-care (01) ==
LOC: HO.HMGCX 08:18
PROVIDERS: PCP Internal Medicine; Visit Provider Nurse Practitioner Family
DX: Z13.89 Encounter for screening for other disorder (principal)
CPT/HCPCS: 71046; 99212

== ENCOUNTER 2024-09-11 08:18 | Outpatient (AMB) | payer MEDICARE, SELFPAY ==
--- OUTSIDE RECORDS SUMMARY | 2024-09-11 08:41 | XMS_ITS ---
Author Organization [facility] Address [address] [address] Care Team Providers Care Medical Unit Secretary Name Role Phone aliyahyanet Primary Care Provider MARIBEL Hassan [phone] REASON FOR VISIT RMV Placard/Plate form Encounters Encounter Location Date Provider Diagnosis [facility] [address] [facility] [address] [place] [address] 03/12/2023 MARIBEL POWELL Plan Of Treatment No Information Progress Notes * Volodymyr ARNOLDDOB:[birth year] (73 yo M)Acc No.[id number]:03/12/2023 Patient:?Volodyymr Arnold :1950???Age:73 Y???Sex:Male Address:[place] [address] * true * Date:? Generated for Printi ng/Fabenjaming/eTransmitting on:?09/11/2024 08:41 AM EST
--- OUTSIDE RECORDS SUMMARY | 2024-09-11 08:41 | XMS_ITS ---
Author Organization [facility] Address [address] [address] Care Team Providers Care Tube Sizer Operator Name Role Phone aliyahyanet Primary Care Provider MARIBEL Hassan [phone] REASON FOR VISIT Handicap placard extension Encounters Encounter Location Date Provider Diagnosis [facility] [address] [facility] [address] [place] [address] 03/12/2023 MARIBEL POWELL Plan Of Treatment No Information Progress Notes * Volodymyr ARNOLDDOB:[birth year] (73 yo M)Acc No.[id number]:03/12/2023 Patient:?Volodymyr Arnold :1950???Age:73 Y???Sex:Male Address: [place] [address] * true * Date:? Generated for Printi ng/Mylesg/eTransmitting on:?09/11/2024 08:41 AM EST
--- OUTSIDE RECORDS SUMMARY | 2024-09-11 08:42 | XMS_ITS ---
Author Organization [facility] Address [address] [place] [address] Care Team Providers Care Biometric Technician Name Role Phone Po Any CUI Primary Care Provider Unavailfaith e Darrian Khan Unavailable [phone] XUAN FAULKNER Unavailable Unavailab le ALLERGIES Allergen [...] 05/16/2024 Encounters Encounter Location Date Provider Diagnosis [facility] [address] [place] [address] 05/16/2024 Darrian Khan Hx of adenomatous colonic [...] Provider Name:Darrian Khan , 11/20/2024 09:40:00 AM, [address] [place] [address], [address], [place], [address], Progress Notes * Examination Category Sub-Category Detail [...]
--- OUTSIDE RECORDS SUMMARY | 2024-09-11 08:42 | XMS_ITS | Patient Health Record ---
Author Organization [facility] Address [address] [facility] [address] [place] [address] Care Team Providers Care Street Department Dispatcher Name Role Phone yanet ly Primary Care Provider Unavailabl e Allergies Allergen (clinical drug ingredient) Drug/Non Drug Allergy documented on EMR Reaction Allergy Type Onset Date Status dronedarone Multaq rash Drug Allergy Activ e Reason For Referral No Information Medications Medication SIG (Take, Route, Frequency, Duration) Notes Start Date End Date Status Ipratropium [place] 0.03 % 2 sprays in e ach [...] Problem Status W/U Status Risk Notes Problem [id number] Hallux rigidus o f right foot (M20.21) Active confirmed Problem [id number] Anticoagulant long-term use (Z79.01) Active confirmed Plan [...] Date Coverage End Date [employer] Medicare Adv-22858 [address] [address] [place] [phone] [id number] Volodymyr Richards Self - patient is the [...] X 2 (Pfizer) and 3 franco ters (GPMESS) COPD Jaundice X 1 month E. Coli [...]
--- OUTSIDE RECORDS SUMMARY | 2024-09-11 08:42 | XMS_ITS ---
Author Organization [facility] Address [address] [place] [address] Care Team Providers Care Detective Name Role Phone Any Jackson MD Primary Care Provider UnavailDarrian Lockett Unavailable [phone] XUAN FAULKNER Unavailable Unavailab le REASON FOR VISIT QUESTIONS Encounters Encounter Location Date Provider Diagnosis [facility] [address] [place] [address] 03/13/2024 Darrian Khan Elevated liver function tests R94.5 ASSESSMENTS Encounter Date Diagnosis Assessment Notes Treatment Notes Treatment Clinical Notes 03/13/2024 Elevated liver function tests (ICD-10 - R94.5) PLAN OF TREATMENT Pending Test Test Name Order Date LIVER PROFILE 03/13/2024 Next Appt Details Provider Name:Darrian Khan , 11/20/2024 09:40:00 AM, [address] [place] [address], [address], [place], [address],
--- OUTSIDE RECORDS SUMMARY | 2024-09-11 08:43 | XMS_ITS ---
Author Organization [facility] Address [address] [place] [address] Care Team Providers Care Metal Wire Coating Operator Name Role Phone Any Jackson MD Primary Care Provider UnavailDarrian Lockett Unavailable [phone] XUAN FAULKNER Unavailable Unavailab le REASON FOR VISIT fyi update. vertigo PROBLEMS Problem Type ICD Code Onset Dates Problem Status W/U Status Risk SNOMED Code Notes Problem Elevated liver function tests (R94.5) Active confirmed Elevated liver enzymes level (468941397) Encounters Encounter Location Date Provider Diagnosis [facility] [address] [place] [address] 03/02/2024 Darrian Khan Elevated liver function tests R94.5 ASSESSMENTS Encounter Date Diagnosis Assessment Notes Treatment Notes Treatment Clinical Notes 03/02/2024 Elevated liver function tests (ICD-10 - R94.5) PLAN OF TREATMENT Pending Test Test Name Order Date LIVER PROFILE 03/02/2024 Next Appt Details Provider Name:Darrian Khan , 11/20/2024 09:40:00 AM, [address], [address], [place], [address],
--- OUTSIDE RECORDS SUMMARY | 2024-09-11 08:43 | XMS_ITS | Continuity of Care Document ---
Author Name [facility] Organization [facility] Care Team Providers Care Club Waiter/Waitress Name Role Phone [facility] Unavailable Unavailable Problems Combined list of problems [...] HCS Exposure to potentially hazardous substance (SCT [id number]) Active Condition Oct 18 4 Entered By: LIUDMILA SUBRAMANIAN Comment: Entered automatically through [facility] Problem List documentation program [facility] Exposure to potentially hazardous substance (SCT [id number]) Active Condition Apr 15 4 Entered By: [...] JI Comment: DR Corrie BLANTON ( [facility]) - visit 12/11/18Ju2017 Entered By: EMMANUEL JI Comment: [place] - SEE EAR MUFF ASSEMBLER WHEN IN [place] ( JUN THRU NOVEMBER )Apr 30, 2018 Entered By: EMMANUEL JI Comment[facility] -December 12, 2018 Entered By: EMMANUEL JI Comment: [facility] ( [place] ( 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 [facility] Medications Combined list of outpatient [...] G RESPIR ATORY (INHAL ATION) ACTIVE 04/18/2025 [id number] PERCY BULLOCK 2023 60 [facility] APIXABAN 5MG TAB TAKE ONE TABLET BY MOUTH EVERY 12 HOURS ORAL ACTIVE RA DARREN RODRIGUEZ 2021 [facility] APIXABAN 5MG TAB TAKE ONE TABLET BY MOUTH EVERY 12 HOURS ORAL ACTIVE AZARBSharyn RAZO 2023 [facility] ASPIRIN 81MG TAB,EC TAKE ONE TABLET BY MOUTH TWICE DAILY ORAL complet Mike Martinez 2018 [facility] CETIRIZINE HCL 10MG TAB TAKE ONE-HALF TABLET BY MOUTH EVERY DAY ORAL ACTIVE AZARBALSharyn 2023 [facility] DOCETAXEL INJ,CONC INJECT INTRAVEN OUSLY INTRAV ENOUS ACTIVE AZARBALJ KOTA 2023 [facility] DOCUSATE NA 250MG CAP TAKE 1 CAPSULE BY MOUTH EVERY DAY ORAL ACTIVE AZARBALSharyn 2023 [facility] FLUTICASONE 250MCG/SALM ETEROL 50MCG INHL,ORAL,D ISKUS,60 INHALE 1 PUFF BY MOUTH EVERY DAY ORAL ACTIVE AZARBALSharyn 2023 [facility] GEMCITABINE HCL INJ INJ INJECT 200 MG INTRAVEN OUSLY INTRAV ENOUS ACTIVE AZARBALSharyn 2023 [facility] IPRATROPIUM BR 0.03% SOLN,SPRAY, NASAL 1 SPRAY INTO EACH NOSTRIL EVERY DAY NASAL ACTIVE AZAADANSharyn GUERRA2023 [facility] METOPROLOL SUCCINATE 100MG TAB,SA TAKE ONE-HALF TABLET BY MOUTH TWICE A DAY ORAL ACTIVE AZAADANSharyn GUERRA2023 [facility] METOPROLOL TARTRATE 50MG TAB TAKE ONE TABLET BY MOUTH TWICE DAILY ORAL ACTIVE PETROFF,S 2018 [facility] OMEPRAZOLE 20MG CAP,EC TAKE 1 CAPSULE BY MOUTH EVERY DAY ORAL ACTIVE AZARBALSharyn GUERRA2023 [facility] OMEPRAZOLE 20MG CAP,EC TAKE 1 CAPSULE BY MOUTH EVERY MORNING 30 MINUTES BEFORE BREAKFAS T ORAL ACTIVE PETROFF,S 2018 [facility] POLYETHYLEN E GLYCOL 3350 PWDR,ORAL TAKE 17 GM (ONE CAPFUL) BY MOUTH EVERY DAY ORAL ACTIVE MARGARETSharyn GUERRA2023 [facility] PREDNISONE 20MG TAB TAKE TWO TABLETS BY MOUTH ONCE DAILY COPD FLARE ORAL 05/11/2024 [id number] PERCY BULLOCK 2023 10 [facility] SIMVASTATIN 80MG TAB TAKE ONE-HALF TABLET BY MOUTH AT BEDTIME ORAL ACTIVE PETROFF,S 2018 [facility] SIMVASTATIN 80MG TAB TAKE ONE-HALF TABLET BY MOUTH AT BEDTIME ORAL ACTIVE CLAUDIAPEDRITODANNISharyn GUERRA2023 [facility] TIOTROPIUM 18MCG CAP,INHL,30 INSERT 1 CAPSULE INTO AEROLIZE R AND INHALE BY MOUTH EVERY DAY RESPIR ATORY (INHAL ATION) ACTIVE MARGARETSharyn 2023 [facility] Allergies, Adverse Reactions, Alerts Combined list of allergies from Department of Defense and Veterans Affairs facilities. It does not include entries that were removed or entered in error. Substance Category Reaction Severity Reaction type Status Date Reported Comments Source AMOXICILLIN Propensity to adverse reactions to drug (finding) Jaundice SEVERE active 4 [facility] CODEINE Propensity to adverse reactions to drug (finding) Nausea and vomiting active 4 [facility] MULTAQ Propensity to adverse reactions to drug (finding) Eruption [facility] Immunizations Combined list of available immunizations from the Department of Defense and Veterans Affairs facilities. Immunization Series Date Given Administered By Site Reaction Lot Number CVX Code Drug Order Packer Or Packager Status Comments Source INFLUENZA, HIGH-DOSE, TRIVALENT, PF 2023 ALEC BENTELY RIGHT DELTO ID [id number] 135 complet ed [facility] RSV, BIVALENT, PROTEIN SUBUNIT RSVPREF, DILUENT RECONSTITUTED , 0.5 ML, PF 2023 [facility] LEFT DELTO ID [id number] 305 complet ed Sterile water diluent Lot #- [id number] 11/2024 [facility] RSV, RECOMBINANT, PROTEIN SUBUNIT RSVPREF, ADJUVANT RECONSTITUTED , 0.5 ML, PF 2022 303 complet ed [facility] INFLUENZA, HIGH-DOSE, QUADRIVALENT 2022 ALEC BENTLEY LEFT DELTO ID [id number] 197 complet ed [facility] INFLUENZA, UNSPECIFIED FORMULATION 2022 88 complet ed [facility] COVID-19 (PFIZER), MRNA, LNP-S, PF, 30 MCG/0.3 ML DOSE 2020 208 complet ed [facility] INFLUENZA, UNSPECIFIED FORMULATION 2020 88 complet ed [facility] COVID-19 (PFIZER), MRNA, LNP-S, PF, 30 MCG/0.3 ML DOSE 2 2020 208 complet ed [facility] COVID-19 (PFIZER), MRNA, LNP-S, PF, 30 MCG/0.3 ML DOSE 1 2020 208 complet ed [place] ZOSTER RECOMBINANT 1 2018 187 complet ed [facility] ZOSTER RECOMBINANT 1 2018 187 complet ed [facility] INFLUENZA, TRIVALENT, ADJUVANTED 2018 168 complet ed Site: Left Deltoid [facility] INFLUENZA, SEASONAL, INJECTABLE 2017 141 complet ed Site: Left Deltoid [facility] INFLUENZA, SEASONAL, INJECTABLE 2016 141 complet ed [facility] PNEUMOCOCCAL CONJUGATE PCV 13 2015 133 complet ed [facility] PNEUMOCOCCAL POLYSACCHARID E PPV23 2014 33 complet ed [facility] TDAP 2014 115 complet ed [facility] Vital Signs Combined list of inpatient and outpatient Vital Signs from Department of Defense and Veterans Affairs, ranging from 12 months to all on record, depending upon the facility. Vital Sign Value Date Comments Source SYSTOLIC BLOOD PRESSURE 125 04/11/20 24 09:48:39 [facility] DIASTOLIC BLOOD PRESSURE 80 024 09:48:39 [facility] PULSE OXIMETRY 94 04/11/2024 09:48:39 [facility] WEIGHT 208.2 04/11/2024 09:48:39 [facility] BMI 34 kg/m2 04/11/2024 09:48:39 [facility] PAIN 1 04/11/2024 09:48:39 [facility] TEMPERATURE 97.5 04/11/2024 09:48:39 [facility] PULSE 68 04/11/2024 09:48:39 [facility] RESPIRATION 16 04/11/2024 09:48:39 [facility] SYSTOLIC BLOOD PRESSURE 129 09/24/19 24 09:24:42 [facility] DIASTOLIC BLOOD PRESSURE 86 024 09:24:42 [facility] PULSE OXIMETRY 97 09/24/2023 09:24:42 [facility] WEIGHT 206 09/24/2023 09:24:42 [facility] BMI 33 kg/m2 09/24/2023 09:24:42 [facility] PAIN 3 09/24/2023 09:24:42 [facility] HEIGHT 66 09/24/2023 09:24:42 [facility] TEMPERATURE 98 09/24/2023 09:24:42 [facility] PULSE 65 09/24/2023 09:24:42 [facility] RESPIRATION 18 09/24/2023 09:24:42 [facility] Encounters Combined list of: 1) Encounters from Department of Veterans Affairs facilities going backup to the last 18 months, not all [place] inpatient encounters are included; 2) Encounters from the Department of [facility] facilities going backup to 280 months. Location Location Details Encounter Type Encounter Number Reason For Visit Attending Provider ADM Date DC Date Status Disposition Source [facility] Outpatient Encounter [id number] 04/09 [facility] [place] OFFICE O/P EST MOD 30-39 MIN [id number] Diagnos is: ICD-10- CM I48.91 Unspeci fied atrial fibrill ation Corrie BULLOCK 04/09 [place] [facility] [place] [facility] [facility] Outpatient Encounter [id number] 06/05 [facility] Outpatient Encounter [id number] 09/19 [facility] Outpatient Encounter [id number] 09/23 [facility] OFFICE O/P [place] 60 MIN [id number] Diagnos is: ICD-10- CM D09.0 Carcino ma in situ of bladder LYNNETTE ROBLES 09/23 [facility] TARGETED CASE MANAGEMENT [id number] KARELY ARANA 09/25 [facility] [place] [facility] HEARING AID FITTING/CH ECKING [id number] Diagnos is: ICD-10- CM Z46.1 Encount er for fitting and adjustm ent of hearing aid Tiesha HERR 12/19 [facility] Outpatient Encounter [id number] 02/07 [facility] Outpatient Encounter [id number] 02/07 [facility] [place] [facility] HEARING AID REPAIR/MOD IFYING [id number] Diagnos is: ICD-10- CM H90.3 Sensori neural hearing loss, bilater al JASMEETILANA ELITim L 03/10 [facility] [place] [facility] OFFICE O/P EST MOD 30 MIN [id number] Diagnos is: ICD-10- CM I48.91 Unspeci fied atrial fibrill ation ARA,L MICH KYMBERLY 04/11 [facility] [place] HEARING SERVICE [id number] Diagnos is: ICD-10- CM Z46.1 Encount er for fitting and adjustm ent of hearing aid JASMEETILANA ELI SATURNINO L 04/11 [facility] Outpatient Encounter [id number] 04/12 [facility] [place] [facility] SPECIAL SUPPLIES PHYS/QHP [id number] Diagnos is: ICD-10- CM J44.9 Chronic obstruc tive pulmona ry disease , unspeci fied ST AMHOLLIE MONTOYA E P 04/17 [facility] Out[facility] Encounter [id number] 04/18 [facility] Outpatient Encounter [id number] 04/18 [facility] Outpatient Encounter [id number] 04/21 [facility] Outpatient Encounter [id number] 04/22 [facility] HEARING AID CHECK BOTH EARS [id number] Diagnos is: ICD-10- CM Z46.1 Encount er for fitting and adjustm ent of hearing aid CHUY ORTIZ 04/29 [facility] Out[facility] Encounter [id number] 05/19 [facility] HEARING AID FITTING/CH ECKING [id number] Diagnos is: ICD-10- CM Z46.1 Encount er for fitting and adjustm ent of hearing aid ILANA PITTS 05/20 [facility] Out[facility] Encounter [id number] 06/24 [facility] Out[facility] Encounter [id number] 07/28 [facility] Social History Combined list of available smoking, tobacco, and other social history from Department of Defense and Veterans Affairs facilities. Social History Type Response Date Comment Sourc e Tobacco smoking status NHIS VA-[facility]BACCO FORMER USER 04/11/2024 [facility] History of tobacco use VA-TOBACCO QUIT 5 TO < 15 YRS 04/11/2024 [facility] History of tobacco use [place] FORMER US[place] 09/24/2023 [facility] History of tobacco use FL-TOBACCO QUIT 5 TO < 15 YRS 04/09/2023 [facility] History of tobacco use FL-TOBACCO QUIT 5 TO < 15 YRS 04/13/2022 [facility] History of tobacco use FL-TOBACCO QUIT 5 TO < 15 YRS 04/12/2021 [facility] History of tobacco use FL-TOBACCO QUIT 5 TO < 15 YRS 03/19/2020 [facility] History of tobacco use FL-TOBACCO QUIT 5 TO < 15 YRS 12/12/2018 [facility] History of tobacco use QUIT TOBACCO USE > 7 YEARS AGO 01/21/2018 [facility] History of tobacco use QUIT TOBACCO USE > 7 YEARS AGO 12/25/2016 [facility] Plan of Care List of future care activities from Department [facility] facilities. Additional future care activities may be listed in the Assessment and Plan section. Date/Time Care Activity Care Activity Detail Facili ty 01/13/2025 AMBULATORY - MEDICINE AMBULATORY - MEDICI [facility] Advance Directives List of completed, amended, or rescinded Advance Directives on record at Department [facility] facilities. An actual copy of the Directive is not included. Date Advance Directive Provider Source 05/23/2015 ADVANCE DIRECTIVE AMBER PENA [facility]
--- OUTSIDE RECORDS SUMMARY | 2024-09-11 08:43 | XMS_ITS | Patient Health Record ---
Author Organization [facility] Address [address] [place] [address] Care Team Providers Care Repeater Operator Name Role Phone Po Any CUI Primary Care Provider Unavailfaith e Darrian Khan Unavailable [phone] XUAN SHEARER Unavailable Unavailab le ALLERGIES Allergen (clinical drug ingredient) Drug/Non Drug Allergy documented on EMR Reaction Allergy Type Onset Date Status doxycycline Doxycycline jaundice Drug Allergy Act eva amoxicillin Amoxicillin jaundice Drug Allergy Act eva RESULTS Component Value Reference Range Notes Ammonia Reviewed date:02/29/2024 07:55:27 PM Interpretation: Performing Lab:[facility], [address] [place] [phone] Notes/Report: Ammonia 28 13-55 umol/L Complete Blood Count no Diff Reviewed date:02/22/2024 05:51:08 PM Interpretation: Performing Lab:[facility], [address] [place] [phone] Notes/Report: White Blood Count 5.7 4.8-10.8 X10*3/uL [...] INR Reviewed date:02/22/2024 05:55:38 PM Interpretation: Performing Lab:[facility], [address] [place] [phone] Notes/Report: Prothrombin Time 12.9 11.1-13.3 SEC INTERNATIONAL [...] Panel Reviewed date:02/22/2024 06:05:52 PM Interpretation: Performing Lab:[facility], [address] [place] [phone] Notes/Report: Bilirubin Total 4.7 0.0-1.0 mg/dL Bilirubin Direct 3.4 0.0-0.5 mg/dL Aspartate Amino Transferase 52 5-37 U/L Alanine Aminotransferase 77 0-40 U/L Total Protein 7.7 6.5-8.0 g/dL Albumin Level 4.0 3.5-5.0 g/dL Alkaline Phosphatase 141 39-117 U/L IRON PROFILE Reviewed date:02/22/2024 05:55:56 PM Interpretation: Performing Lab:[facility], [address] [place] [phone] Notes/Report: Iron 127 45-160 mcg/dL Total Iron Binding Capacity 291 228-428 mcg/d L Percent Iron Saturation 44 15-50 % Unsaturated Iron Binding 164 Ferritin Reviewed date:02/22/2024 05:56:05 PM Interpretation: Performing Lab:[facility], [address] [place] [phone] Notes/Report: Ferritin 366 20-250 ng/mL SANDY Reflex Titer and Pattern Reviewed date:02/25/2024 10:47:25 PM Interpretation: Performing Lab:[facility], [address] [place] [phone] Notes/Report: Anti Nuclear Antibody Screen NEGATIVE NEGATIVE [...] Negative International Consensus on SANDY Patterns (https://doi.org/10.1515/c xsv-1026-7862) For additional information, please refer to http://education.Chomp/faq/ESP069 (This link is being provided for informational/ educational purposes only.) THIS TEST WAS PERFORMED AT: [facility] [address] [place] [phone] AMILCAR ZABALA MD Anti Nuclear Antibody Titer TNP Anti Nuclear Antibody Pattern TNP SANDY Titer 2 TNP SANDY Pattern 2 TNP SANDY Titer 3 TNP SANDY Pattern 3 TNP Mitochondrial Antibody Reviewed date:03/03/2024 11:29:34 PM Interpretation: Performing Lab:[facility], [address] [place] [phone] Notes/Report: Mitochondrial Antibodies NEGATIVE NEGATIVE The specimen was negative for cytoplasmic antibodies, however additional staining was observed suggesting the presence of Antinuclear Antibodies. Consider requesting order code 249, SANDY Screen, IFA with Reflex to Titer and Pattern, or order code [id number], SANDY Screen, IFA w/reflex Titer/Pattern, and Reflex to Multiplex 11 Ab [place], if clinically indicated. THIS TEST WAS PERFORMED AT: [facility] [address] [place] [phone] AMILCAR ZABALA MD Mitochondrial Ab Titer TNP Smooth Muscle Antibody Reviewed date:03/03/2024 11:29:41 PM Interpretation: Performing Lab:[facility], [address] [place] [phone] Notes/Report: Smooth Muscle Antibody <20 <20 U [...] type 1. THIS TEST WAS PERFORMED AT: [facility]/[address] [phone] ANGEL VIDAL MD,PHD Hepatitis A,B,C Profile Reviewed date:02/22/2024 05:56:33 PM Interpretation: Performing Lab:[address] [phone] Notes/Report: Hepatitis A Antibody IgM Nonreactive Nonreactive [...] ff Reviewed date:02/29/2024 07:54:38 PM Interpretation: Performing Lab:[address] [phone] Notes/Report: White Blood Count 6.5 4.8-10.8 X10*3/uL [...] Time Reviewed date:02/29/2024 07:54:46 PM Interpretation: Performing Lab:[address] [phone] Notes/Report: Partial Thromboplastin Time 39.0 26.0-36.8 SEC For information regarding the monitoring of direct thrombin inhibitors, please refer to Pharmacy. Liver Panel Reviewed date:03/02/2024 11:08:18 PM Interpretation: Performing Lab:[address] [phone] Notes/Report: Bilirubin Total 2.5 0.0-1.0 mg/dL Bilirubin Direct 1.6 0.0-0.5 mg/dL Aspartate Amino Transferase 58 5-37 U/L Alanine Aminotransferase 87 0-40 U/L Total Protein 7.4 6.5-8.0 g/dL Albumin Level 3.8 3.5-5.0 g/dL Alkaline Phosphatase 111 39-117 U/L Basic Metabolic Panel Reviewed date:02/29/2024 07:55:19 PM Interpretation: Performing Lab:[address] [address] Notes/Report: Sodium 140 135-145 mmol/L Potassium 4.6 3.3-5.1 mmol/L Chloride 104 96-108 mmol/L Carbon Dioxide 30 22-29 mmol/L Anion Gap 11 12-20 Blood Urea Nitrogen 15 9-16 mg/dL Creatinine 0.96 0.5-1.4 mg/dL Estimated Glomerular Filt Rate > 60 NOTE: For -Faroese individuals, multiply the result by 1.210. Chronic Kidney Disease: Estimated GFR < 60 mL/min/1.73m2 Severe Kidney Disease: Estimated GFR < 15 mL/min/1.73m2 Glucose Random 98 60-115 mg/dL Calcium 10.1 8.4-10.2 mg/dL Liver Panel Reviewed date:03/12/2024 07:33:03 AM Interpretation: Performing Lab:[facility], [address] [place] [phone] Notes/Report: Bilirubin Total 1.3 0.0-1.0 mg/dL Bilirubin Direct 0.8 0.0-0.5 mg/dL Aspartate Amino Transferase 37 5-37 U/L Alanine Aminotransferase 71 0-40 U/L Total Protein 7.7 6.5-8.0 g/dL Albumin Level 4.1 3.5-5.0 g/dL Alkaline Phosphatase 90 39-117 U/L Blood Urea Nitrogen Reviewed date:03/10/2024 11:20:43 PM Interpretation: Performing Lab:[facility], [address] [place] [phone] Notes/Report: Blood Urea Nitrogen 15 9-16 mg/dL Creatinine Reviewed date:03/10/2024 11:20:50 PM Interpretation: Performing Lab:[facility], [address] [place] [phone] Notes/Report: Creatinine 0.86 0.5-1.4 mg/dL Estimated Glomerular Filt Rate > 60 NOTE: For -Faroese individuals, multiply the result by 1.210. Chronic Kidney Disease: Estimated GFR < 60 mL/min/1.73m2 Severe Kidney Disease: Estimated GFR < 15 mL/min/1.73m2 Liver Panel Reviewed date:03/31/2024 08:49:38 AM Interpretation: Performing Lab:[facility], [address] [place] [phone] Notes/Report: Bilirubin Total 1.1 0.0-1.0 mg/dL Bilirubin [...] malignant neoplasm of colon (Z12.11) Active confirmed 636590452 Problem Elevated LFTs (R79.89) Active confirmed [id number] Problem Preprocedural examination (Z01.818) Active confirmed [id number] Problem Iron excess (E83.19) Active confirmed 95339495 Problem Jaundice (R17) Active confirmed Jaundic e (71306210) Problem Hx of adenomatous colonic polyps (Z86.010) Active confirmed 899520148 Problem Pruritus (L29.9) Active confirmed Pruri tus (525887926) Problem Elevated liver function tests (R94.5) Active confirmed Elevated liver enzymes level (934325007) VITAL SIGNS Blood pressure diastolic 00 mm Hg 05/16/2024 Height 66 in 05/16/2024 Blood pressure systolic 00 mm Hg 05/16/2024 Weight 205 lbs 05/16/2024 BMI 33.08 kg/m2 05/16/2024 Encounters Encounter Location Date Provider Diagnosis [facility] [address] [place] [phone] 02/26/2024 Darrian Khan Jaundice R17 [address]9 [facility] [address] [place] [phone] 05/16/2024 Darrian Khan Hx of adenomatous colonic polyps Z86.010 ; Jaundice R17 and Encounter for screening for malignant neoplasm of colon Z12.11 Test [place] [address] 02/19/2024 Darrian Khan Elevated LFTs R79.89 [facility] [address] [place] [phone] 03/02/2024 Darrian Khan Elevated liver function tests R94.5 [facility] [place] [phone] 03/13/2024 Darrian Khan Elevated liver function tests [...] 06/14/2022 CHEM 7 PROFILE 02/26/2024 LIVER PROFILE 02/26/2024 LIVER PROFILE 06/21/2022 LIVER PROFILE 03/02/2024 LIVER PROFILE 08/11/2022 LIVER PROFILE 03/13/2024 LIVER PROFILE 02/19/2024 LIVER PROFILE 06/29/2022 LIVER PROFILE 06/16/2022 LIVER PROFILE 06/14/2022 LIVER PROFILE 08/11/2022 IRON + IBC (FE) 08/11/2022 IRON + IBC (FE) 08/11/2022 IRON + IBC (FE) 02/19/2024 IRON + IBC (FE) 06/16/2022 FERRITIN 02/19/2024 CRP 06/16/2022 CBC w DIFF 02/26/2024 CBC w DIFF 06/14/2022 CBC w/o DIFF 02/19/2024 SED RATE (ESR) 06/16/2022 PROTHROMBIN TIME (PT, INR) 02/19/2024 PROTHROMBIN TIME (PT, INR) 06/16/2022 PROTHROMBIN TIME (PT, INR) 06/21/2022 PROTHROMBIN TIME (PT, INR) 02/26/2024 HEPATITIS A,B,C PROFILE 02/19/2024 HEPATITIS A,B,C PROFILE 06/16/2022 [id number] (A1A) 06/16/2022 MITOCHONDRIAL AB 02/19/2024 SMOOTH MUSCLE ANTIBODIES 02/19/2024 MRI ABD W&WO CONTRAST 06/16/2022 FLUOR. ANTINUCLEAR AB SCREEN ([facility]) 08/2021 FLUOR. ANTINUCLEAR AB SCREEN ([facility]) 12/2023 Prothrombin Time INR 06/29/2022 Ferritin 08/11/2022 Ferritin 08/11/2022 Future Test Test Name Order Date COLONOSCOPY 01/27/2014 COLONOSCOPY 11/20/2019 Next Appt Details Provider Name:Darrian Allen Khan , 11/20/2024 09:40:00 AM, [address] [place] [address], [facility] [address], [place], [address], Insurance Providers Payer Name Payer Address Payer Phone Subscriber Number Group Number Insured Name Patient Relationship to Insured Coverage Start Date Coverage End Date [facility] [address] [address] [place] [address] [id number] GENEVIEVE ARNOLD Self - patient is the insured MEDICAL (GENERAL) HISTORY Medical History History ICD Code Hyperlipidemia Colonoscopy 10-12-2008--1 tub ular adenoma removed; colonoscopy 03/2014 with 2 small tubular adenomas EGD [place] [address] Walter-- negative except for mild reflux-there was no Hough's esophagus nor significant esophagitis Irregular heartbeat--Atrial fibrillation/PVC's--Dr. Shearer. Had an ablation in 04/[address] Brownlee Denies MO,DM,CVA,Lung disease,renal dise ase Bladder cancer 06/2013--has periodic [...] Knee replacement-partial--- left 08/2019 Right big toe [id number]. Mazzucco 2020
--- NOTE | 2024-09-11 09:03 | MHC.OFFWIV ---
Intake Vital Signs 09/11/24 09:04 Weight 206 lb BP 120/80 Blood Pressure Location Lt brachial Position Sitting Pulse 80 Pulse Source Pulse Oximeter Temp 98.5 F Temp Source Oral Pulse Oximetry (%) 94 Oxygen Delivery Method Room Air Intake Visit Reasons: EP Cough, sob Intake Note: Patient here for severe cough and SOB that has been present since Sunday. Patient Tobacco Use Status: Former Tobacco user Allergies dronedarone [From Multaq] Allergy (Mild, Verified 09/11/24 09:06) Rash amoxicillin [From Augmentin] Allergy (Verified 09/11/24 09:06) liver failure clavulanic acid [From Augmentin] Allergy (Verified 09/11/24 09:06) liver failure Penicillins Adverse Reaction (Intermediate, Verified 09/11/24 09:06) Unknown Medication List - Last Reconciled 09/11/24 by Bev Cabrera NP albuterol sulfate 90 mcg/actuation 2 puffs inhalation Q8H PRN 30 days albuterol sulfate 1.25 mg inhalation Q4-6H PRN apixaban (Eliquis) 5 mg PO BID 90 days CPAP (CPAP Machine/Device) As directed docusate sodium (Colace) 100 mg PO DAILY doxycycline hyclate 100 mg PO BID 10 days dupilumab (Dupixent) 300 mg subcut QWEEK fluticasone propion-salmeterol 230-21 mcg/actuation (Advair HFA) 2 puffs inhalation BID gemcitabine 1,000 mg IV QWEEK ipratropium bromide 1 spray intranasal DAILY ipratropium-albuterol 0.5 mg-3 mg(2.5 mg base)/3 mL 3 mL inhalation Q4-6H PRN levofloxacin 750 mg PO Q24H 5 days meclizine 25 mg PO BID PRN metoprolol tartrate 50 mg PO BID omeprazole 20 mg PO DAILY 90 days polyethylene glycol 3350 (Miralax) 17 grams PO DAILY simvastatin 40 mg PO BEDTIME Do you need a note to return to daycare/school/sports/work: No HPI HPI Comments History of Present Illness Details 74 y/o male patient who presents to the walk in clinic with c/o Cough, chest congestion and SOB since Sunday. Reports fevers, body chills. He was seen here 09/09 for similar symptoms and treated for Flu despite Negative SARs. Reports no Symptom improvement. [facility] Medical History (Updated 09/11/24 @ 09:13 by Bev Cabrera NP) Acute respiratory disease Bladder cancer Atrial fibrillation SVT (supraventricular tachycardia) LBBB (left bundle branch block) PVC (premature ventricular contraction) Hypercholesterolemia Asthma COPD (chronic obstructive pulmonary disease) Jaundice ANALY on CPAP Cough Personal history of nicotine dependence History of COVID-19 History of small bowel obstruction GERD (gastroesophageal reflux disease) Erectile dysfunction Obesity (BMI 30-39.9) Surgical History History of foot surgery (~2021) History of laparotomy (~2020) History of arthroplasty of right knee (~2020) History of meniscectomy of right knee (~2011) History of cataract surgery (~2020) History of appendectomy History of arthroplasty of left knee (~2019) History of meniscectomy of left knee (~2018) History of bladder surgery Hx of transurethral destruction of bladder lesion Family History Father Lung cancer Mother History of breast cancer Sister Multiple myeloma Other Cough Social History Household Members: Spouse Housing: House Are you a primary resident care provider to a significant other at home: No Do you presently have visiting nurse or other home services: No Alcohol intake: former Patient Tobacco Use Status: Former Tobacco user Tobacco use type: Cigarette Years Smoked: (former smoker - onset 14yo, 1ppd x 46yrs, 45pyh, quit 2009) e-Cigarette/Vaping Use: Never Used Second Hand Smoke Exposure: No Advance Directives Date on File: 02/14/21 service: Yes ( [employer] - served in [employer]) Current occupational status: retired Current occupational exposures/hazards: Yes (was exposed to Agent [place] while serving in [employer]) Cognitive needs: No Hearing needs: Yes (hearing aide) Vision needs: No Review of Systems Const All systems reviewed & are unremarkable except as noted in HPI and below Physical Exam Vital Signs: Last Vital Signs Temp 98.5 F 09/11/24 09:04 Pulse 80 09/11/24 09:04 BP 120/80 09/11/24 09:04 Pulse Ox 94 09/11/24 09:04 Oxygen Delivery Method Room Air 09/11/24 09:04 Const General: cooperative and no acute distress Orientation/consciousness: patient oriented x3 HEENT Head: Yes normocephalic Ears: external ears normal and TM abnormal with fluid behind the TM General nose exam: Nasal discharge present Face and sinus: Yes sinuses nontender Mouth: moist mucous membranes Throat: Yes uvula midline Resp Effort & Inspection: normal respiratory effort, able to speak in complete sentences and Actively coughing Auscultation: clear to auscultation bilaterally, no crackles, no rales, no rhonchi and no wheezes Cardio Heart sounds: S1 normal heart sound present and S2 normal heart sound present Neuro General: patient oriented x3 Assessment & Plan Assessment & Plan (1) Acute respiratory disease: Code(s): J06.9 - Acute upper respiratory infection, unspecified Plan: Ordered SARs. Previous Pneumonia back in April, Will treat today with Abx. Ordered Chest Xray (2) Cough: Comment: Code(s): R05.9 - Cough, unspecified Qualifiers: Cough type: chronic Qualified Code(s): R05.3 - Chronic cough Plan: Ordered SARs. Previous Pneumonia back in April, Will treat today with Abx. Ordered Chest Xray Orders: Orders XR chest 2V Today R05.3 - Chronic cough SARS-CoV2/FLU/RSV Today J06.9 - Acute upper respiratory infection, unspecified Medications: New doxycycline hyclate 100 mg PO BID 20 caps 0RF 10 days J06.9 - Acute upper respiratory infection, unspecified levofloxacin 750 mg PO Q24H 5 tabs 0RF 5 days J06.9 - Acute upper respiratory infection, unspecified Coding Level of Care Code Est Pt Level 4 (66904) Diagnoses Acute respiratory disease J06.9 Chronic cough R05.3 Cough type: chronic Time Spent (min) 20
[2024-09-11 09:04] VITALS: BP 120/80; PULSE 80; TEMP 36.9; O2SAT 94
== END 2024-09-11 10:09 | disposition home or self-care (01) ==
PROVIDERS: PCP Internal Medicine; Visit Provider Nurse Practitioner Family
DX: J06.9 Acute upper respiratory infection, unspecified (principal); R05.3 Chronic cough

== ENCOUNTER 2024-09-11 09:26 | Outpatient (REF) | payer MEDICARE, SELFPAY ==
--- OUTSIDE RECORDS SUMMARY | 2024-09-11 10:41 | XMS_ITS | Continuity of Care Document ---
Author Name [facility] Organization [facility] Care Team Providers Care Bomb Squad Officer Name Role Phone [facility] Unavailable Unavailable Problems Combined list of problems [...] HCS Exposure to potentially hazardous substance (SCT [id number]) Active Condition Oct 18 4 Entered By: LIUDMILA SUBRAMANIAN Comment: Entered automatically through [facility] Problem List documentation program [facility] Exposure to potentially hazardous substance (SCT [id number]) Active Condition Apr 15 4 Entered By: [...] EMMANUEL JI Comment: DR Corrie BLANTON ( [facility]) - visit 12/11/18Ju2017 Entered By: EMMANUEL JI Comment: [place] SEE [place] TECHNICIAN WHEN IN [place] ( JUN THRU NOVEMBER )Apr 30, 2018 Entered By: EMMANUEL JI Comment: [facility] -December 12, 2018 Entered By: EMMANUEL JI Comment: NON [facility] ( [place] ( 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 Medications Combined list of outpatient medications [...] G RESPIR ATORY (INHAL ATION) ACTIVE 04/18/2025 [id number] PERCY BULLOCK 2023 60 [facility] APIXABAN 5MG TAB TAKE ONE TABLET BY MOUTH EVERY 12 HOURS ORAL ACTIVE RA DARREN RODRIGUEZ 2021 [facility] APIXABAN 5MG TAB TAKE ONE TABLET BY MOUTH EVERY 12 HOURS ORAL ACTIVE AZARBSharyn RAZO 2023 [facility] ASPIRIN 81MG TAB,EC TAKE ONE TABLET BY MOUTH TWICE DAILY ORAL complet Mike Martinez 2018 [facility] CETIRIZINE HCL 10MG TAB TAKE ONE-HALF TABLET BY MOUTH EVERY DAY ORAL ACTIVE AZARBALSharyn 2023 [facility] DOCETAXEL INJ,CONC INJECT INTRAVEN OUSLY INTRAV ENOUS ACTIVE AZARBALJ KOTA 2023 [facility] DOCUSATE NA 250MG CAP TAKE 1 CAPSULE BY MOUTH EVERY DAY ORAL ACTIVE AZARBALSharyn 2023 [facility] FLUTICASONE 250MCG/SALM ETEROL 50MCG INHL,ORAL,D ISKUS,60 INHALE 1 PUFF BY MOUTH EVERY DAY ORAL ACTIVE AZARBALSharyn 2023 [facility] GEMCITABINE HCL INJ INJ INJECT 200 MG INTRAVEN OUSLY INTRAV ENOUS ACTIVE AZARBALSharyn 2023 [facility] IPRATROPIUM BR 0.03% SOLN,SPRAY, NASAL 1 SPRAY INTO EACH NOSTRIL EVERY DAY NASAL ACTIVE AZAADANSharyn GUERRA2023 [facility] METOPROLOL SUCCINATE 100MG TAB,SA TAKE ONE-HALF TABLET BY MOUTH TWICE A DAY ORAL ACTIVE AZAADANSharyn GUERRA2023 [facility] METOPROLOL TARTRATE 50MG TAB TAKE ONE TABLET BY MOUTH TWICE DAILY ORAL ACTIVE PETROFF,S 2018 [facility] OMEPRAZOLE 20MG CAP,EC TAKE 1 CAPSULE BY MOUTH EVERY DAY ORAL ACTIVE AZARBALSharyn GUERRA2023 [facility] OMEPRAZOLE 20MG CAP,EC TAKE 1 CAPSULE BY MOUTH EVERY MORNING 30 MINUTES BEFORE BREAKFAS T ORAL ACTIVE PETROFF,S 2018 [facility] POLYETHYLEN E GLYCOL 3350 PWDR,ORAL TAKE 17 GM (ONE CAPFUL) BY MOUTH EVERY DAY ORAL ACTIVE MARGARETSharyn GUERRA2023 [facility] PREDNISONE 20MG TAB TAKE TWO TABLETS BY MOUTH ONCE DAILY COPD FLARE ORAL 05/11/2024 [id number] PERCY BULLOCK 2023 10 [facility] SIMVASTATIN 80MG TAB TAKE ONE-HALF TABLET BY MOUTH AT BEDTIME ORAL ACTIVE PETROFF,S 2018 [facility] SIMVASTATIN 80MG TAB TAKE ONE-HALF TABLET BY MOUTH AT BEDTIME ORAL ACTIVE CLAUDIAPEDRITODANNISharyn GUERRA2023 [facility] TIOTROPIUM 18MCG CAP,INHL,30 INSERT 1 CAPSULE INTO AEROLIZE R AND INHALE BY MOUTH EVERY DAY RESPIR ATORY (INHAL ATION) ACTIVE MARGARETSharyn 2023 [facility] Allergies, Adverse Reactions, Alerts Combined list of allergies from Department of Defense and Veterans Affairs facilities. It does not include entries that were removed or entered in error. Substance Category Reaction Severity Reaction type Status Date Reported Comments Source AMOXICILLIN Propensity to adverse reactions to drug (finding) Jaundice SEVERE active [facility] CODEINE Propensity to adverse reactions to drug (finding) Nausea and vomiting active 4 [facility] MULTAQ Propensity to adverse reactions to drug (finding) Eruption [facility] Immunizations Combined list of available immunizations from the Department of Defense and Veterans Affairs facilities. Immunization Series Date Given Administered By Site Reaction Lot Number CVX Code Drug Route Sales Person Status Comments Source INFLUENZA, HIGH-DOSE, TRIVALENT, PF 2023 ALEC BENTLEY RIGHT DELTO ID [id number] 135 complet ed [facility] RSV, BIVALENT, PROTEIN SUBUNIT RSVPREF, DILUENT RECONSTITUTED , 0.5 ML, PF 2023 MCALEC L LEFT DELTO ID [id number] 305 complet ed Sterile water diluent Lot #- [id number] 11/2024 [facility] RSV, RECOMBINANT, PROTEIN SUBUNIT RSVPREF, ADJUVANT RECONSTITUTED , 0.5 ML, PF 2022 303 complet ed [facility] INFLUENZA, HIGH-DOSE, QUADRIVALENT 2022 ALEC BENTLEY LEFT DELTO ID [id number] 197 complet ed [facility] INFLUENZA, UNSPECIFIED FORMULATION 2022 88 complet ed [facility] COVID-19 (PFIZER), MRNA, LNP-S, PF, 30 MCG/0.3 ML DOSE 2020 208 complet ed [facility] INFLUENZA, UNSPECIFIED FORMULATION 2020 88 complet ed [facility] COVID-19 (PFIZER), MRNA, LNP-S, PF, 30 MCG/0.3 ML DOSE 2 2020 208 complet ed [facility] COVID-19 (PFIZER), MRNA, LNP-S, PF, 30 MCG/0.3 ML DOSE 1 2020 208 complet ed [place] [facility] RECOMBINANT 1 2018 187 complet ed [facility] ZOSTER RECOMBINANT 1 2018 187 complet ed [facility] INFLUENZA, TRIVALENT, ADJUVANTED 2018 168 complet ed Site: Left Deltoid [facility] INFLUENZA, SEASONAL, INJECTABLE 2017 141 complet ed Site: Left Deltoid [facility] INFLUENZA, SEASONAL, INJECTABLE 2016 141 complet ed [facility] PNEUMOCOCCAL CONJUGATE PCV 13 2015 133 complet ed [facility] [place] PNEUMOCOCCAL POLYSACCHARID E PPV23 2014 33 complet ed [facility] TDAP 2014 115 complet ed [facility] Vital Signs Combined list of inpatient and outpatient Vital Signs from Department of Defense and Veterans Affairs, ranging from 12 months to all on record, depending upon the facility. Vital Sign Value Date Comments Source SYSTOLIC BLOOD PRESSURE 125 04/11/20 24 09:48:39 [facility] DIASTOLIC BLOOD PRESSURE 80 024 09:48:39 [facility] PULSE OXIMETRY 94 04/11/2024 09:48:39 [facility] WEIGHT 208.2 04/11/2024 09:48:39 [facility] BMI 34 kg/m2 04/11/2024 09:48:39 [facility] PAIN 1 04/11/2024 09:48:39 [facility] TEMPERATURE 97.5 04/11/2024 09:48:39 [facility] PULSE 68 04/11/2024 09:48:39 [facility] RESPIRATION 16 04/11/2024 09:48:39 [facility] SYSTOLIC BLOOD PRESSURE 129 09/24/19 24 09:24:42 [facility] DIASTOLIC BLOOD PRESSURE 86 024 09:24:42 [facility] PULSE OXIMETRY 97 09/24/2023 09:24:42 [facility] WEIGHT 206 09/24/2023 09:24:42 [facility] BMI 33 kg/m2 09/24/2023 09:24:42 [facility] PAIN 3 09/24/2023 09:24:42 [facility] HEIGHT 66 09/24/2023 09:24:42 [facility] TEMPERATURE 98 09/24/2023 09:24:42 [facility] PULSE 65 09/24/2023 09:24:42 [facility] RESPIRATION 18 09/24/2023 09:24:42 [facility] Encounters Combined list of: 1) Encounters from Department of Veterans Affairs facilities going backup to the last 18 months, not all [place] inpatient encounters are included; 2) Encounters from the Department of [facility] facilities going backup to 280 months. Location Location Details Encounter Type Encounter Number Reason For Visit Attending Provider ADM Date DC Date Status Disposition Source [facility] Outpatient Encounter [id number] 04/09 [facility] [place] [facility] OFFICE O/P EST MOD 30-39 MIN [id number] Diagnos is: ICD-10- CM I48.91 Unspeci fied atrial fibrill ation Corrie BULLOCK 04/09 [facility] Outpatient Encounter [id number] 06/05 [facility] Outpatient Encounter [id number] 09/19 [facility] Outpatient Encounter [id number] 09/23 [facility] OFFICE O/P [place] 60 MIN [id number] Diagnos is: ICD-10- CM D09.0 Carcino ma in situ of bladder LYNNETTE ROBLES 09/23 [facility] TARGETED CASE MANAGEMENT [id number] KARELY ARANA 09/25 [facility] [place] [facility] HEARING AID FITTING/CH ECKING [id number] Diagnos is: ICD-10- CM Z46.1 Encount er for fitting and adjustm ent of hearing aid Tiesha HERR 12/19 [facility] [place] Outpatient Encounter [id number] 02/07 [facility] Outpatient Encounter [id number] 02/07 [facility] [place] [facility] HEARING AID REPAIR/MOD IFYING [id number] Diagnos is: ICD-10- CM H90.3 Sensori neural hearing loss, bilater al JASMEETILANA ELITim L 03/10 [facility] OFFICE O/P EST MOD 30 MIN [id number] Diagnos is: ICD-10- CM I48.91 Unspeci fied atrial fibrill ation ARA,L MICH KYMBERLY 04/11 [facility] HEARING SERVICE [id number] Diagnos is: ICD-10- CM Z46.1 Encount er for fitting and adjustm ent of hearing aid JASMEETILANA ELI SATURNINO L 04/11 [facility] Outpatient Encounter [id number] 04/12 [facility] SPECIAL SUPPLIES PHYS/QHP [id number] Diagnos is: ICD-10- CM J44.9 Chronic obstruc tive pulmona ry disease , unspeci fied ST AMHOLLIE MONTOYA E P 04/17 [facility] Out[facility] Encounter [id number] 04/18 [facility] Outpatient Encounter [id number] 04/18 [facility] Outpatient Encounter [id number] 04/21 [facility] Outpatient Encounter [id number] 04/22 [facility] HEARING AID CHECK BOTH EARS [id number] Diagnos is: ICD-10- CM Z46.1 Encount er for fitting and adjustm ent of hearing aid CHUY ORTIZ 04/29 [facility] En[facility] [id number] 05/19 [facility] HEARING AID FITTING/CH ECKING [id number] Diagnos is: ICD-10- CM Z46.1 Encount er for fitting and adjustm ent of hearing aid ILANA PITTS 05/20 [facility] Out[facility] Encounter [id number] 06/24 [facility] Out[facility] Encounter [id number] 07/28 [facility] Social History Combined list of available smoking, tobacco, and other social history from Department of Defense and Veterans Affairs facilities. Social History Type Response Date Comment Sourc e Tobacco smoking status NHIS VA-TOBACCO FORMER USER 04/11/2024 [facility] History of tobacco use VA-TOBACCO QUIT 5 TO < 15 YRS 04/11/2024 [facility] History of tobacco use [place]-TOBACCO FORMER USER 09/24/2023 [facility] History of tobacco use MS-TOBACCO QUIT 5 TO < 15 YRS 04/09/2023 [facility] History of tobacco use MS-TOBACCO QUIT 5 TO < 15 YRS 04/13/2022 [facility] History of tobacco use MS-TOBACCO QUIT 5 TO < 15 YRS 04/12/2021 [facility] History of tobacco use MS-TOBACCO QUIT 5 TO < 15 YRS 03/19/2020 [facility] History of tobacco use MS-TOBACCO QUIT 5 TO < 15 YRS 12/12/2018 [facility] History of tobacco use QUIT TOBACCO USE > 7 YEARS AGO 01/21/2018 [facility] History of tobacco use QUIT TOBACCO USE > 7 YEARS AGO 12/25/2016 [facility] Plan of Care List of future care activities from Department [facility] facilities. Additional future care activities may be listed in the Assessment and Plan section. Date/Time Care Activity Care Activity Detail Facili ty 01/13/2025 AMBULATORY - MEDICINE AMBULATORY - MEDICI [facility] Advance Directives List of completed, amended, or rescinded Advance Directives on record at Department [facility] facilities. An actual copy of the Directive is not included. Date Advance Directive Provider Source 05/23/2015 [facility] DIRECTIVE AMBER PENA [facility]
[2024-09-11 11:05] LABS: Influenza A PCR NEGATIVE (Negative); Influenza B PCR NEGATIVE (Negative); Resp Syncy Virus RNA Qual PCR NEGATIVE (Negative); SARS COV2 PCR INHOUSE NEGATIVE (Negative)
== END 2024-09-11 09:27 | disposition home or self-care (01) ==
LOC: HO.LAB 09:26
PROVIDERS: Visit Provider Nurse Practitioner Family
DX: J06.9 Acute upper respiratory infection, unspecified (principal); R05.3 Chronic cough; R91.8 Other nonspecific abnormal finding of lung field
CPT/HCPCS: 0241U; 71046; 99212

== ENCOUNTER → 2024-09-11 09:29 | Outpatient (BNV) | payer MEDICARE, SELFPAY | PROVIDERS: PCP Internal Medicine; Visit Provider Radiology Diagnostic Radiology | DX: J44.1 Chronic obstructive pulmonary disease with (acute) exacerbation (principal) | CPT/HCPCS: 71046 ==

== ENCOUNTER 2024-09-18 09:47 | Outpatient (AMB) | payer MEDICARE, SELFPAY ==
[2024-09-18 09:55] VITALS: BP 120/52; PULSE 81; O2SAT 95; BMI 32.9
--- NOTE | 2024-09-18 09:55 | A.OFFVIS_ITS ---
Vital Signs 09/18/24 09:55 Height 5 ft 6 in Weight 203 lb 14.841 oz BMI 32.9 BP 120/52 L Blood Pressure Location Lt brachial Position Sitting Pulse 81 Pulse Source Pulse Oximeter Pulse Oximetry (%) 95 Oxygen Delivery Method Room Air Intake Visit Reasons: asthma Intake Note: pt is here for follow up and states he has been sick, and now is on trelegy. 5-6 week flare up of bronchitis. 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 Allergies dronedarone [From Multaq] Allergy (Mild, Verified 09/18/24 12:13) Rash amoxicillin [From Augmentin] Allergy (Verified 09/18/24 12:13) liver failure clavulanic acid [From Augmentin] Allergy (Verified 09/18/24 12:13) liver failure Penicillins Adverse Reaction (Intermediate, Verified 09/18/24 12:13) Unknown Medication List - Last Reconciled 09/18/24 by Ramin Christie MD albuterol sulfate 1.25 mg inhalation Q4-6H PRN albuterol-budesonide 90-80 mcg/actuation (Airsupra) 2 inhalations inhalation BID PRN apixaban (Eliquis) 5 mg PO BID 90 days CPAP (CPAP Machine/Device) As directed docusate sodium (Colace) 100 mg PO DAILY doxycycline hyclate 100 mg PO BID 10 days dupilumab (Dupixent) 300 mg subcut QWEEK pzojoouqdqj-yhdqcwsuu-tzkqyktl 100-62.5-25 mcg (Trelegy Ellipta) 1 inh inhalation DAILY gemcitabine 1,000 mg IV QWEEK ipratropium bromide 1 spray intranasal DAILY PRN ipratropium-albuterol 0.5 mg-3 mg(2.5 mg base)/3 mL 3 mL inhalation Q4-6H PRN meclizine 25 mg PO BID PRN metoprolol tartrate 50 mg PO BID omeprazole 20 mg PO DAILY 90 days polyethylene glycol 3350 (Miralax) 17 grams PO DAILY simvastatin 40 mg PO BEDTIME Do you need a note to return to daycare/school/sports/work: No HPI HPI asthma: Details: THIS 74 YEARS OLD GENTLEMAN IS HERE TODAY, A FEW MONTHS BEFORE HIS, SCHEDULED VISIT BECAUSE LATELY HE HAS BEEN SICK, WITH INCREASED COUGH AND WHEEZING AND CHEST CONGESTION. HE IS KNOWN CASE OF MODERATE OBESITY, AND OBSTRUCTIVE SLEEP APNEA, WHICH IS BEING TREATED WITH USE OF CPAP, AND HE REMAINS COMPLIANT. HE ALSO HAS HAD INTERMITTENT COUGH WITH NASAL CONGESTION AND DIAGNOSED TO HAVE CHRONIC UPPER RESPIRATORY ALLERGIES, MILD BRONCHIAL ASTHMA, WITH SOME RESTRICTIVE LUNG DISORDER. THIS GENTLEMAN GOES FOR HIS MEDICAL CARE TO HIS PRIMARY CARE PHYSICIAN AT [facility], PRIMARY CARE PHYSICIAN HERE IN [facility], AND AN BLANCHING MACHINE OPERATOR. HE USED TO GO TO [facility] IN [place], QUITE SOMETIME BUT LATELY HAS CHANGED TO THE OFFICE IN [place]. BECAUSE OF HIS CHRONIC ALLERGY PROBLEM THIS GENTLEMAN IS ON DUPIXENT THERAPY, AND HAS BEEN DOING MUCH BETTER. THIS TIME SINCE A FEW WEEKS AGO HE HAS BEEN SICK WITH INCREASED COUGH AND CONGESTED FEELING, HE WAS INITIALLY SEEN AT URGENT CARE CLINIC AND HAD A CHEST X-RAY WAS TOLD THAT HE MAY HAVE A TOUCH OF PNEUMONIA. HE HAS BEEN TREATED WITH 10 DAYS COURSE OF DOXYCYCLINE, AND ON FOLLOW-UP VISIT BECAUSE HIS SYMPTOMS WANTS TO PERSISTING HE HAS ALSO BEEN TREATED WITH LEVOFLOXACIN. ,HE IS FEELING BETTER DENIES ANY FEVER OR CHILLS.DENIES ANY WHEEZING ATTACKS. BUT STILL HAS A FEELING OF CHEST CONGESTION WITH SOME INTERMITTENT COUGH. IS THE PRIMARY CARE PHYSICIAN OR THE NEW BLANCHING MACHINE OPERATOR THAT HE GOES TO HAVE PUT HIM ON TRELEGY INHALER 1 INHALATION DAILY. AFTER FURTHER DISCUSSION HE WANTED TO AVOID USING TOO MANY INHALERS AND THUS HE WAS PRESCRIBED TRELEGY. TODAY HIS MAIN COMPLAINT HERE IS THAT HE IS NOT SURE IF HE SHOULD USE ALL THESE INHALERS, AND HE IS NOT SURE IF HE HAS TO GO TO ALL THE DIFFERENT PHYSICIANS OR SHOULD HE GO TO JUST 1% FOR THE TREATMENT. [facility] Medical History Acute respiratory disease Bladder cancer Atrial fibrillation SVT (supraventricular tachycardia) LBBB (left bundle branch block) PVC (premature ventricular contraction) Hypercholesterolemia Asthma COPD (chronic obstructive pulmonary disease) Jaundice ANALY on CPAP Cough Personal history of nicotine dependence History of COVID-19 History of small bowel obstruction GERD (gastroesophageal reflux disease) Erectile dysfunction Obesity (BMI 30-39.9) Surgical History History of foot surgery (~2021) History of laparotomy (~2020) History of arthroplasty of right knee (~2020) History of meniscectomy of right knee (~2011) History of cataract surgery (~2020) History of appendectomy History of arthroplasty of left knee (~2019) History of meniscectomy of left knee (~2018) History of bladder surgery Hx of transurethral destruction of bladder lesion Family History Father Lung cancer Mother History of breast cancer Sister Multiple myeloma Other Cough Social History Household Members: Spouse Housing: House Are you a primary daycare teacher to a significant other at home: No Do you presently have visiting nurse or other home services: No Alcohol intake: former Patient Tobacco Use Status: Former Tobacco user Tobacco use type: Cigarette Years Smoked: (former smoker - onset 14yo, 1ppd x 46yrs, 45pyh, quit 2009) e-Cigarette/Vaping Use: Never Used Second Hand Smoke Exposure: No Advance Directives Date on File: 02/14/21 service: Yes ([employer] - served in [facility]) Current occupational status: retired Current occupational exposures/hazards: Yes (was exposed to Agent [place] while serving in [employer]) Cognitive needs: No Hearing needs: Yes (hearing aide) Vision needs: No Review of Systems Const All systems reviewed & are unremarkable except as noted in HPI and below Eyes Reports no additional complaints ENT Denies dysphagia and Reports nasal congestion (Mild) Card Denies chest pain, Denies irregular heart rhythm and Denies leg edema Resp Reports as per HPI GI Denies GI cramping, Denies dysphagia, Reports heartburn (GERD symptoms are controlled with medicine), Denies diarrhea, Denies vomiting and Reports other (Increasing jaundice in the last 1 week) Reports erectile dysfunction Musc Reports no additional complaints Skin/Breast Reports pruritus (Has generalized H especially on the back since onset of jaundice) Neuro Reports no additional complaints Psych Reports no additional complaints Endo Reports no additional complaints Physical Exam Vital Signs: Last Vital Signs Pulse 81 09/18/24 09:55 BP 120/52 L 09/18/24 09:55 Pulse Ox 95 09/18/24 09:55 Oxygen Delivery Method Room Air 09/18/24 09:55 BMI result Body Mass Index 32.9 Const Other: HAS YELLOW COMPLEXION General: comfortable, no acute distress (But has repeated cough during conversation), alert and awake Orientation/consciousness: patient oriented x3 HEENT Head: Yes normal to inspection General nose exam: No nasal polyps present, No nasal discharge present and Other nasal findings present (MILD NASAL CONGESTION) Face and sinus: Yes sinuses nontender Mouth: oropharynx normal (However there is slight enlargement and erythema uvula) Throat: Yes posterior oropharynx normal Eyes General: appearance normal, both eyes and all related structures Sclerae: scleral abnormal (Has intense jaundice) Neck Neck: Yes normal visual inspection, Yes no lymphadenopathy, Yes trachea midline and Yes no JVD Thyroid: Thyroid normal Chest Chest palpation & inspection: normal inspection of the chest, normal palpation of entire chest wall and no tenderness Resp Other: Percussion note is resonant.. Breath sounds are slightly distant but equal and normal on both sides. He can take deep breaths, without cough. and there are no wheezes rhonchi or Creps. Cardio Palpation: normal PMI Rate: regular rate Rhythm: regular rhythm Heart sounds: no gallops and no murmurs Peripheral pulses: Peripheral pulses 2+ throughout GI Palpation (GI): Soft to palpation, nontender, No hepatosplenomegaly present and no masses Auscultation: normal bowel sounds Back/Spine/Pelvis Thoracic/Lumbar Spine: thoracic and lumbar spine normal to inspection Skin General skin exam: jaundice (Quite intense yellow discoloration is noted) Neuro General: patient oriented x3 and no focal motor deficits Cranial nerves: Yes CN's II-XII intact bilaterally Extrem General: Yes normal to inspection, Yes no clubbing, cyanosis or edema and Yes no calf tenderness Psych Appearance: grossly normal and well kempt Speech and movement: Normal speech and movement present Assessment & Plan Assessment & Plan (1) Asthma: Comment: His symptoms are indicative of mild intermittent bronchial asthma. Previously have been controlled with the use of Wixela 250-50 b.i.d. and Albuterol HFA 2 puffs Q 4-6 hours only p.r.n. Has been started on Dupixent, injection twice a month ( primarily for eczema/ allergic dermatitis ) and with this therapy his asthma also has been relatively well controlled. More recently he has had bout of bronchitis with a lingering on cough, and has been treated with antibiotics including doxycycline and levofloxacin. It seems to have resolved by now. But his the primary care physician or shipfitter has started him on Trelegy 1 inhalation daily. The patient is here asking me if he really needs Trelegy are not. Code(s): J45.909 - Unspecified asthma, uncomplicated Category: Medical Plan: I think his bronchial asthma was mild intermittent and, he has had no evidence of chronic obstructive pulmonary disease as per his pulmonary function tests. For this reason he should do okay just with albuterol 2 puffs Q 4-6 hours p.r.n.. And it was okay for him to use the Wixela 250-51 inhalation b.i.d.. I personally do not think he needs to use Trelegy, but now that he does have supply for 1 month I told him that he can use it up. As he is also on Dupixent treatment this should take care of any amount of asthma that he has. (2) Cough: Comment: He has had intermittent cough mainly associated with his chronic allergies and intermittent asthma. Now he must have had an upper respiratory infection and a cough may linger on for a few more weeks. Code(s): R05.9 - Cough, unspecified Category: Medical Qualifiers: Cough type: chronic Qualified Code(s): R05.3 - Chronic cough Plan: I advised him that he can use the cough medicine such as Mucinex or Robitussin p.r.n.. The best thing would be to use steam inhalations during the daytime as well. He does use humidification with the CPAP and say is during the night he feels better. (3) Personal history of nicotine dependence: Comment: (former smoker - onset 14yo, 1ppd x 46yrs, 45pyh, quit 2009, +fam hx lung ca) March 2022 Code(s): Z87.891 - Personal history of nicotine dependence Category: Medical Plan: I stressed again that he should not go back to smoking at all. (4) ANALY on CPAP: Comment: Known to have obstructive sleep apnea since 2017. He uses CPAP regularly every night - and sleeps better. Code(s): G47.33 - Obstructive sleep apnea (adult) (pediatric); Z99.89 - Dependence on other enabling machines and devices Category: Medical Plan: Advised to continue using CPAP every night regularly and do use heated humidification. Coding Level of Care Code Est Pt Level 3 (67299) Diagnoses Asthma J45.909 Chronic cough R05.3 Cough type: chronic Personal history of nicotine dependence Z87.891 ANALY on CPAP G47.33; Z99.89
--- OUTSIDE RECORDS SUMMARY | 2024-09-18 11:13 | XMS_ITS ---
Author Organization [facility] Address [address] [place] [address] Care Team Providers Care Professional Programmer Analyst Name Role Phone Any Jackson MD Primary Care Provider Darrian Galvez [phone] XUAN FAULKNER Unavailable Unavailab le REASON FOR VISIT QUESTIONS Encounters Encounter Location Date Provider Diagnosis [facility] [address] [place] [address] [address] [place] [address] 03/13/2024 Darrian Khan Elevated liver function tests R94.5 Assessments Encounter Date Diagnosis (ICD Code) Assessment Notes Treatment Notes Treatment Clinical Notes Section Notes 03/13/2024 Elevated liver function tests (ICD-10 - R94.5) Plan Of Treatment Pending Test Test Name Order Date LIVER PROFILE 03/13/2024 Next Appt Details Provider Name:Darrian Khan , 11/20/2024 09:40:00 AM, [address] [place] [address], [address], [place], [address], Progress Notes * GENEVIEVE ARNOLD JrDOB: (74 yo M)Acc No.[id number]:03/13/2024 Patient:?GENEVIEVE ARNOLD :1950???Age:74 Y???Sex:Male Address:[facility] [address] [address] Subjective: * Chief Complaints: * ???QUESTIONS * Medical History:? * Surgical History:? * Hospitalization/Major Diagno stic Procedure:? * Medications:? Objective: Assessment: * Assessment: 1.?Elevated liver function t ests - R94.5? Plan: * Treatment: * Procedure Codes:? * true * Date:? Generated for Enrique bullock/Vito/Sindi on:?09/18/2024 11:13 AM EST
--- OUTSIDE RECORDS SUMMARY | 2024-09-18 11:13 | XMS_ITS | Patient Health Record ---
Author Organization [facility] Address [address] [place] [address] Care Team Providers Care Director Of Graduate Admissions Name Role Phone yanet ly Primary Care Provider Unavailabl e Allergies Allergen (clinical drug ingredient) Drug/Non Drug Allergy documented on EMR Reaction Allergy Type Onset Date Status dronedarone Multaq rash Drug Allergy Activ e Reason For Referral No Information Medications Medication SIG (Take, Route, Frequency, Duration) Notes Start Date End Date Status Ipratropium [place] 0.03 % 2 sprays in e ach [...] Problem Status W/U Status Risk Notes Problem [id number] Hallux rigidus o f right foot (M20.21) Active confirmed Problem [id number] Anticoagulant long-term use (Z79.01) Active confirmed Plan [...] Date Coverage End Date [employer] Medicare [id number] [address] [address] [place] [address] [id number] Volodymyr Richards Self - patient is the [...] X 2 (Pfizer) and 3 franco ters ([employer]) COPD Jaundice X 1 month E. Coli [...]
--- OUTSIDE RECORDS SUMMARY | 2024-09-18 11:13 | XMS_ITS ---
Author Organization [facility] Address [address] [place] [address] Care Team Providers Care Failure Analysis Technician Name Role Phone Po Any CUI Primary Care Provider Unavailfaith e Darrian Khan Unavailable [phone] XUAN FAULKNER Unavailable Unavailab le Allergies Allergen (clinical drug ingredient) Drug/Non Drug Allergy documented on EMR Reaction Allergy Type Onset Date Status doxycycline Doxycycline jaundice Drug Allergy Act eva amoxicillin Amoxicillin jaundice Drug Allergy Act eva REASON FOR VISIT Patient presents today for jaundice Medications Medication SIG (Take, Route, Frequency, Duration) [...] 100-50 MCG/DOSE as directed Inhalation Activ e Vital Signs Blood pressure systolic 00 mm Hg 05/16/20 24 Blood pressure diastolic 00 mm Hg 024 Height 66 in 05/16/2024 Weight 205 lbs 05/16/2024 BMI 33.08 kg/m2 05/16/2024 Encounters Encounter Location Date Provider Diagnosis [facility] [address] [place] [address] 05/16/2024 Darrian Khan Hx of adenomatous colonic polyps Z86.010 ; Jaundice R17 and Encounter for screening for malignant neoplasm of colon Z12.11 Assessments Encounter Date Diagnosis (ICD Code) Assessment Notes Treatment Notes Treatment Clinical Notes Section Notes 05/16/2024 Hx of adenomatous colonic polyps (ICD-10 - Z86.010) We will discuss colonoscopy when I see you in 2024 Overall, Volodymyr appears quite well. His jaundice and elevated LFTs have resolved completely. We did review the underlying etiology of this again as being that of an allergy to amoxicillin and the need to avoid that and all other drugs in that class ad terminal makeup operator, including Augmentin. I don't think he needs any further evaluation or treatment of this issue at this time given the completely normal liver profile last month. We did review that he will theoretically be due for a followup screening colonoscopy next year given his last colonoscopy being in November of 2019 and his previous history of tubular adenomas. As such, I given him an appointment to see me in November or December of 2024 and will then discuss colonoscopy at that time. I did advise him to contact me prior to that if he has any problems or questions I can be of assistance with. Volodymyr and his were comfortable with this plan. Thank you again for allowing me to participate in Volodymyr's care. I shall continue to keep you advised of his progress. 05/16/2024 Jaundice (ICD-10 - R17) Overall, Volodymyr appears quite well. His jaundice and elevated LFTs have resolved completely. We did review the underlying etiology of this again as being that of an allergy to amoxicillin and the need to avoid that and all other drugs in that class ad terminal makeup operator, including Augmentin. I don't think he needs any further evaluation or treatment of this issue at this time given the completely normal liver profile last month. We did review that he will theoretically be due for a followup screening colonoscopy next year given his last colonoscopy being in November of 2019 and his previous history of tubular adenomas. As such, I given him an appointment to see me in November or December of 2024 and will then discuss colonoscopy at that time. I did advise him to contact me prior to that if he has any problems or questions I can be of assistance with. Volodymyr and his were comfortable with this plan. Thank you again for allowing me to participate in Volodymyr's care. I shall continue to keep you advised of his progress. 05/16/2024 Encounter for screening for malignant neoplasm of colon (ICD-10 - Z12.11) Overall, Volodymyr appears quite well. His jaundice and elevated LFTs have resolved completely. We did review the underlying etiology of this again as being that of an allergy to amoxicillin and the need to avoid that and all other drugs in that class chcf, including Augmentin. I don't think he needs any further evaluation or treatment of this issue at this time given the completely normal liver profile last month. We did review that he will theoretically be due for a followup screening colonoscopy next year given his last colonoscopy being in November of 2019 and his previous history of tubular adenomas. As such, I given him an appointment to see me in November or December of 2024 and will then discuss colonoscopy at that time. I did advise him to contact me prior to that if he has any problems or questions I can be of assistance with. Volodymyr and his were comfortable with this plan. Thank you again for allowing me to participate in Volodymyr's care. I shall continue to keep you advised of his progress. Plan Of Treatment Treatment Notes Assessment Notes Hx of adenomatous colonic polyps We will discuss colonoscopy when I see you in 2024 Next Appt Details Follow Up: December 2024, Re ason: Provider Name:Darrian Khan , 11/20/2024 09:40:00 AM, [address] [place] [address], [address], [place], [address], Progress Notes * VOLODYMYR ARNOLD JrDOB: (74 yo M)Acc No.[id number]:05/16/2024 Progress Notes Patient:?ARNOLDVOLODYMYR BOWMAN Amaya Provider:?Darrian Khan MD :1950???Age:74 Y???Sex:Male Reece e:05/16/2024 Address:[facility] [address] [place] [facility] [id number] Pcp:Any Jackson MD Subjective: * Chief Complaints: * ???Patient presents today fo r jaundice * HPI: ???incontinence:? I saw Volodymyr in followup today in regard to his previous jaundice felt to be in relation to amoxicillin. He was accompanied by his . ?Since I last saw Volodymyr in February his jaundice and pruritus have completely resolved. His most recent liver profile on April 18 was completely normal. He has not had any further pruritus. He has been feeling well since that time, although does advise me that he underwent a cystoscopy earlier this morning and was found to have a recurrence of his bladder cancer for which he is going to be scheduled for further treatments with Dr. Alicea. He otherwise is feeling well from a GI standpoint. He enjoys a good appetite and denies any significant heartburn or dysphagia. His bowel movements have remained regular and without any signs of bleeding. He denies abdominal pain, increased abdominal girth, edema, nor fatigue. * ROS:?General/Constitutional:?Change in appetite?diminished.?Chills?denies.?Fatigue?admits.?Ophthalmologic:?Comments?all negative.?ENT:?Comments?all negative.?Respiratory:?hemoptysis?denies.?Cough?denies.?Cardiovascular:?Chest pain?denies.?Orthopnea?denies.?Gastrointestinal:?Comments?See HPI for details.?Genitourinary:?Hematuria?denies.?Dysuria?denies.?Musculoskeletal:?Painful joints?denies.?Weakness?denies.?Skin:?Itching?Significant pruritus since his jaundice in January of 2024 and February of 2024, although it is improving as of the 02/26/2024 OV along with the improvement of his jaundice. His pruritus?resolved completely as of the May 16, 2024 office visit.?Rash?denies.?Neurologic:?Headache?denies.?Seizures?denies.?Psychiatric:?Comments?all negative.? * Medical History:? * Surgical History:?Carpal catina marquis surgery Appendectomy Knee surgery-right Skin cancer removal--basal cell Knee replacement-partial--- left 08/2019Right big toe QSC-oehdvaerr-Lz. Mazzucco 2020 * Hospitalization/Major Diagno stic Procedure:?No Hospitalization History. * Family History:?Father: dece ased.?Mother: .? There is no family history of colorectal cancer or liver disease. * Social History:?Tobacco Use:?Tobacco Use/Smoking?Are you a: former smoker , How long has it been since you last smoked?: 1-5 years.?Drugs/Alcohol:?Alcohol Screen?Points: 0, Interpretation: Negative.?Miscellaneous:?Marital status: . Occupation: retired. ???Nonsmoker; no alcohol >30 years. * Medications:?TakingAdvair Di skus 100-50 MCG/DOSE Miscellaneous as directed Inhalation Omeprazole 20 MG Capsule Delayed Release 1 capsule 30 minutes before morning meal Orally Once a dayEliquis 5 MG Tablet TAKE 1 TABLET BY MOUTH TWICE A DAY Oral Advair HFA 230-21 MCG/ACT Aerosol Inhalation Metoprolol Tartrate 50 MG Tablet Oral Dupixent 300 MG/2ML Solution Auto-injector Subcutaneous Simvastatin 40 MG Tablet Oral Taking Advair Diskus 100-50 MCG/DOSE Miscellaneous as directed Inhalation Taking Omeprazole 20 MG Capsule Delayed Release 1 capsule 30 minutes before morning meal Orally Once a dayTaking Eliquis 5 MG Tablet TAKE 1 TABLET BY MOUTH TWICE A DAY Oral Taking Advair HFA 230-21 MCG/ACT Aerosol Inhalation Taking Metoprolol Tartrate 50 MG Tablet Oral Taking Dupixent 300 MG/2ML Solution Auto-injector Subcutaneous Taking Simvastatin 40 MG Tablet Oral Not-Taking/PRNTranexamic Acid 650 MG Tablet as directed Orally DOCEtaxel 20 MG/2ML Solution as directed Intravenous Gemcitabine HCl 200 MG Solution Reconstituted as directed Intravenous Not-Taking/PRN Tranexamic Acid 650 MG Tablet as directed Orally Not-Taking/PRN DOCEtaxel 20 MG/2ML Solution as directed Intravenous Not-Taking/PRN Gemcitabine HCl 200 MG Solution Reconstituted as directed Intravenous DiscontinuedUrsodiol 300 MG Capsule 2 Orally Twice a dayMedication List reviewed and reconciled with the patientDiscontinued Ursodiol 300 MG Capsule 2 Orally Twice a dayMedication List reviewed and reconciled with the patient * Allergies:?Amoxicillin: eloise diceDoxycycline: jaundiceyes[Allergies Verified] Objective: * Vitals:?Wt: 205 lbs, Ht: 66 in, BMI:33.08 Index, BP: 00/00 mm Hg. * Examination: ???General Examination: ?GENERAL APPEARANCE:?Pleasant, well nourished, well developed male.?EYES:?Anicteric.?ORAL CAVITY:?mucosa moist.?NECK/THYROID:?no cervical lymphadenopathy, neck supple.?SKIN:?nonjaundiced, no spider angiomata.?HEART:?S1, S2 normal.?LUNGS:?clear to auscultation bilaterally.?ABDOMEN:?normal bowel sounds, no guarding or rigidity, no guarding or rigidity, no masses palpable, soft, nontender, nondistended.?EXTREMITIES:?no edema.?NEUROLOGIC:?alert and oriented.? Assessment: * Assessment: 1.?Jaundice - R17 (Primary)? 2.?Hx of adenomatous colonic polyps - Z86.010?3.?Encounter for screening for malignant neoplasm of colon - Z12.11? Overall, Volodymyr appears quit e well. His jaundice and elevated LFTs have resolved completely. We did review the underlying etiology of this again as being that of an allergy to amoxicillin and the need to avoid that and all other drugs in that class chcf, including Augmentin. I don't think he needs any further evaluation or treatment of this issue at this time given the completely normal liver profile last month. We did review that he will theoretically be due for a followup screening colonoscopy next year given his last colonoscopy being in November of 2019 and his previous history of tubular adenomas. As such, I given him an appointment to see me in November or December of 2024 and will then discuss colonoscopy at that time. I did advise him to contact me prior to that if he has any problems or questions I can be of assistance with. Volodymyr and his were comfortable with this plan. Thank you again for allowing me to participate in Volodymyr's care. I shall continue to keep you advised of his progress. Plan: * Treatment: * Procedure Codes:?1036F TOBAC CO [id number] BP SCR NOT PRFRM REC REASON NOS * Preventive Medicine:? ??Counseling:?Care goal follow-up plan:?Above Normal BMI Follow-up?Giving encouragement to exercise,?BMI management provided?Yes.? ??Screenings:?Fall Risk Screening?Fall Risk Assessment:?No falls in the past year,?Screening:?No falls in the past year,?Assessment:?Not performed, no reason specified,?Plan of Care:?Not documented, no reason specified.? * Follow Up:?December 2024 * * Sign off status: Completed true * Provider:?Darrian Khan MD Date:? 024 Generated for Enrique bullock/Vito/Armandoitting on:?09/18/2024 11:13 AM EST History and Physical Notes * HPI (History of Present Illness) Category Sub-Category Detail Notes Category Not es incontinence I saw Volodymyr in followup today in regard to his previous jaundice felt to be in relation to amoxicillin. He was accompanied by his . Since I last saw Volodymyr in February his jaundice and pruritus have completely resolved. His most recent liver profile on April 18 was completely normal. He has not had any further pruritus. He has been feeling well since that time, although does advise me that he underwent a cystoscopy earlier this morning and was found to have a recurrence of his bladder cancer for which he is going to be scheduled for further treatments with Dr. Alicea. He otherwise is feeling well from a GI standpoint. He enjoys a good appetite and denies any significant heartburn or dysphagia. His bowel movements have remained regular and without any signs of bleeding. He denies abdominal pain, increased abdominal girth, edema, nor fatigue. Examination Category Sub-Category Detail Notes Category Not es General Examination GENERAL APPEARANCE: Pleasant , well [...]
--- OUTSIDE RECORDS SUMMARY | 2024-09-18 11:13 | XMS_ITS ---
Author Organization [facility] Address [address] [place] [address] Care Team Providers Care Mental Health Counselor Name Role Phone Any Jackson MD Primary Care Provider Darrian Galvez [phone] XUAN FAULKNER Unavailable Unavailab le REASON FOR VISIT update. vertigo Problems Problem Type SNOMED Code ICD Code Onset Dates Problem Status W/U Status Risk Notes Problem Elevated liver enzymes level ([id number]) Elevated liver function tests (R94.5) Active confirmed Encounters Encounter Location Date Provider Diagnosis [facility] [address] [place] [address] 03/02/2024 Darrian Khan Elevated liver function tests R94.5 Assessments Encounter Date Diagnosis (ICD Code) Assessment Notes Treatment Notes Treatment Clinical Notes Section Notes 03/02/2024 Elevated liver function tests (ICD-10 - R94.5) Plan Of Treatment Pending Test Test Name Order Date LIVER PROFILE 03/02/2024 Next Appt Details Provider Name:Darrian Khan , 11/20/2024 09:40:00 AM, [address] [place] [address], [address], [place], [address], Progress Notes * GENEVIEVE ARNOLD JrDOB: (74 yo M)Acc No.[id number]:03/02/2024 Patient:?GENEVIEVE ARNOLD :1950???Age:74 Y???Sex:Male Address:[address], [place] , [place] [address] Subjective: * Chief Complaints: * ???Fyi update. vertigo * Medical History:? * Surgical History:? * Hospitalization/Major Diagno stic Procedure:? * Medications:? Objective: Assessment: * Assessment: 1.?Elevated liver function t ests - R94.5 (Primary)? Plan: * Treatment: * Procedure Codes:? * true * Date:? Generated for Enrique bullock/Vito/Salsmitting on:?09/18/2024 11:13 AM EST
--- OUTSIDE RECORDS SUMMARY | 2024-09-18 11:14 | XMS_ITS | Patient Health Record ---
Author Organization [facility] Address [address] [place] [address] Care Team Providers Care Ball Racker Name Role Phone Po Any CUI Primary Care Provider Unavailfaith e Darrian Khan Unavailable [phone] XUAN SHEARER Unavailable Unavailab le Allergies Allergen (clinical drug ingredient) Drug/Non Drug Allergy documented on EMR Reaction Allergy Type Onset Date Status doxycycline Doxycycline jaundice Drug Allergy Act eva amoxicillin Amoxicillin jaundice Drug Allergy Act eva Results Component Value Reference Range Notes Ammonia Reviewed date:02/29/2024 07:55:27 PM Interpretation: Performing Lab:[facility], [address] [place] [phone] Notes/Report: Ammonia 28 13-55 umol/L Complete Blood Count no Diff Reviewed date:02/22/2024 05:51:08 PM Interpretation: Performing Lab:[facility], [address] [place] [phone] Notes/Report: White Blood Count 5.7 4.8-10.8 X10*3/uL [...] INR Reviewed date:02/22/2024 05:55:38 PM Interpretation: Performing Lab:[facility], [address] [place] [phone] Notes/Report: Prothrombin Time 12.9 11.1-13.3 SEC INTERNATIONAL [...] Panel Reviewed date:02/22/2024 06:05:52 PM Interpretation: Performing Lab:[facility], [address] [place] [phone] Notes/Report: Bilirubin Total 4.7 0.0-1.0 mg/dL Bilirubin Direct 3.4 0.0-0.5 mg/dL Aspartate Amino Transferase 52 5-37 U/L Alanine Aminotransferase 77 0-40 U/L Total Protein 7.7 6.5-8.0 g/dL Albumin Level 4.0 3.5-5.0 g/dL Alkaline Phosphatase 141 39-117 U/L IRON PROFILE Reviewed date:02/22/2024 05:55:56 PM Interpretation: Performing Lab:[facility], [address] [place] [phone] Notes/Report: Iron 127 45-160 mcg/dL Total Iron Binding Capacity 291 228-428 mcg/d L Percent Iron Saturation 44 15-50 % Unsaturated Iron Binding 164 Ferritin Reviewed date:02/22/2024 05:56:05 PM Interpretation: Performing Lab:[facility], [address] [place] [phone] Notes/Report: Ferritin 366 20-250 ng/mL SANDY Reflex Titer and Pattern Reviewed date:02/25/2024 10:47:25 PM Interpretation: Performing Lab:[facility], [address] [place] [phone] Notes/Report: Anti Nuclear Antibody Screen NEGATIVE NEGATIVE [...] Negative International Consensus on SANDY Patterns (https://doi.org/10.1515/c uut-4227-3042) For additional information, please refer to http://education.Shoptiques/faq/QZE450 (This link is being provided for informational/ educational purposes only.) THIS TEST WAS PERFORMED AT: [facility] [address] [place] [phone] AMILCAR ZABALA MD Anti Nuclear Antibody Titer TNP Anti Nuclear Antibody Pattern TNP SANDY Titer 2 TNP SANDY Pattern 2 TNP SANDY Titer 3 TNP SANDY Pattern 3 TNP Mitochondrial Antibody Reviewed date:03/03/2024 11:29:34 PM Interpretation: Performing Lab:[facility], [address] [place] [phone] Notes/Report: Mitochondrial Antibodies NEGATIVE NEGATIVE The specimen was negative for cytoplasmic antibodies, however additional staining was observed suggesting the presence of Antinuclear Antibodies. Consider requesting order code 249, SANDY Screen, IFA with Reflex to Titer and Pattern, or order code [id number], SANDY Screen, IFA w/reflex Titer/Pattern, and Reflex to Multiplex 11 Ab Power, if clinically indicated. THIS TEST WAS PERFORMED AT: [facility] [address] [place] [phone] AMILCAR ZABALA MD Mitochondrial Ab Titer TNP Smooth Muscle Antibody Reviewed date:03/03/2024 11:29:41 PM Interpretation: Performing Lab:[facility], [address] [place] [phone] Notes/Report: Smooth Muscle Antibody <20 <20 U [...] type 1. THIS TEST WAS PERFORMED AT: [facility]/[address] [phone] ANGEL VIDAL MD,PHD Hepatitis A,B,C Profile Reviewed date:02/22/2024 05:56:33 PM Interpretation: Performing Lab:[address] [phone] Notes/Report: Hepatitis A Antibody IgM Nonreactive Nonreactive [...] ff Reviewed date:02/29/2024 07:54:38 PM Interpretation: Performing Lab:[address] [phone] Notes/Report: White Blood Count 6.5 4.8-10.8 X10*3/uL [...] Time Reviewed date:02/29/2024 07:54:46 PM Interpretation: Performing Lab:[address] [phone] Notes/Report: Partial Thromboplastin Time 39.0 26.0-36.8 SEC For information regarding the monitoring of direct thrombin inhibitors, please refer to Pharmacy. Liver Panel Reviewed date:03/02/2024 11:08:18 PM Interpretation: Performing Lab:[address] [phone] Notes/Report: Bilirubin Total 2.5 0.0-1.0 mg/dL Bilirubin Direct 1.6 0.0-0.5 mg/dL Aspartate Amino Transferase 58 5-37 U/L Alanine Aminotransferase 87 0-40 U/L Total Protein 7.4 6.5-8.0 g/dL Albumin Level 3.8 3.5-5.0 g/dL Alkaline Phosphatase 111 39-117 U/L Basic Metabolic Panel Reviewed date:02/29/2024 07:55:19 PM Interpretation: Performing Lab:[address] [phone] Notes/Report: Sodium 140 135-145 mmol/L Potassium 4.6 3.3-5.1 mmol/L Chloride 104 96-108 mmol/L Carbon Dioxide 30 22-29 mmol/L Anion Gap 11 12-20 Blood Urea Nitrogen 15 9-16 mg/dL Creatinine 0.96 0.5-1.4 mg/dL Estimated Glomerular Filt Rate > 60 NOTE: For -[place] individuals, multiply the result by 1.210. Chronic Kidney Disease: Estimated GFR < 60 mL/min/1.73m2 Severe Kidney Disease: Estimated GFR < 15 mL/min/1.73m2 Glucose Random 98 60-115 mg/dL Calcium 10.1 8.4-10.2 mg/dL Liver Panel Reviewed date:03/12/2024 07:33:03 AM Interpretation: Performing Lab:[facility], [address] [place] [phone] Notes/Report: Bilirubin Total 1.3 0.0-1.0 mg/dL Bilirubin Direct 0.8 0.0-0.5 mg/dL Aspartate Amino Transferase 37 5-37 U/L Alanine Aminotransferase 71 0-40 U/L Total Protein 7.7 6.5-8.0 g/dL Albumin Level 4.1 3.5-5.0 g/dL Alkaline Phosphatase 90 39-117 U/L Blood Urea Nitrogen Reviewed date:03/10/2024 11:20:43 PM Interpretation: Performing Lab:[facility], [address] [place] [phone] Notes/Report: Blood Urea Nitrogen 15 9-16 mg/dL Creatinine Reviewed date:03/10/2024 11:20:50 PM Interpretation: Performing Lab:[facility], [address] [place] [phone] Notes/Report: Creatinine 0.86 0.5-1.4 mg/dL Estimated Glomerular Filt Rate > 60 NOTE: For -[place] individuals, multiply the result by 1.210. Chronic Kidney Disease: Estimated GFR < 60 mL/min/1.73m2 Severe Kidney Disease: Estimated GFR < 15 mL/min/1.73m2 Liver Panel Reviewed date:03/31/2024 08:49:38 AM Interpretation: Performing Lab:[facility], [address] [place] [phone] Notes/Report: Bilirubin Total 1.1 0.0-1.0 mg/dL Bilirubin Direct 0.5 0.0-0.5 mg/dL Aspartate Amino Transferase 28 5-37 U/L Alanine Aminotransferase 49 0-40 U/L Total Protein 7.0 6.5-8.0 g/dL Albumin Level 3.9 3.5-5.0 g/dL Alkaline Phosphatase 72 39-117 U/L Reason For Referral No Information Medications Medication [...] TWICE A DAY Oral for 90 Active Immunizations Vaccine Route Administration Date Status Comme nts Influenza Unknown 03/16/2019 Administered Influenza Unknown 03/16/2022 Administered Influenza Unknown 05/03/2022 Administered Problems Problem Type SNOMED Code ICD Code Onset Dates Problem Status W/U Status Risk Notes Problem 284038561 Encounter for screening for malignant neoplasm of colon (Z12.11) Active confirmed Problem 603959767 Elevated LFTs (R79.89) Active confirmed Problem 785207777455091 Preprocedural examination (Z01.818) Active confirmed Problem 41596575 Iron excess (E83.19) Active confirmed Problem Jaundice (76453764) Jaundice (R17) Active confirmed Problem 488016355 Hx of adenomatous colonic polyps (Z86.010) Active confirmed Problem Pruritus (147223482) Pruritus (L29.9) Active confirmed Problem Elevated liver enzymes level (820135979) Elevated liver function tests (R94.5) Active confirmed Vital Signs Blood pressure diastolic 00 mm Hg 05/16/2024 Height 66 in 05/16/2024 Blood pressure systolic 00 mm Hg 05/16/2024 Weight 205 lbs 05/16/2024 BMI 33.08 kg/m2 05/16/2024 Encounters Encounter Location Date Provider Diagnosis [facility] [address] [place] [address] 02/26/2024 Darrian Khan Jaundice R17 and Pruritus L29.9 [facility] [address] [place] [address] 05/16/2024 Darrian Khan Hx of adenomatous colonic polyps Z86.010 ; Jaundice R17 and Encounter for screening for malignant neoplasm of colon Z12.11 Test [place] [address] 02/19/2024 Darrian Khan Elevated LFTs R79.89 [facility] [address] [place] [address] 03/02/2024 Darrian Khan Elevated liver function tests R94.5 [facility] [address] [place] [address] 03/13/2024 Darrian Khan Elevated liver function tests R94.5 Assessments Encounter Date Diagnosis (ICD Code) Assessment Notes Treatment Notes Treatment Clinical Notes Section Notes 02/26/2024 Jaundice (ICD-10 - R17) Overall, Volodymyr appears well at the present time. We did review that his current clinical history seems to be a duplication of the same issue that he had from May of 2022 through August of 2022 in regard to the exposure to amoxicillin, development of jaundice without any etiology to suggest biliary obstruction or other chronic liver disease, and then what appears to be another spontaneous resolution of the problem. At this point I advised him and his that he should consider amoxicillin to be an allergy and he should be sure to tell all his providers of that. I did advise him that he should avoid other medications such as Augmentin and other medications in the penicillin family. At this point, since he is spontaneously improving again, I don't think he needs to be treated with any steroids at this time. He clearly does not show any signs of liver failure such as encephalopathy, increasing abdominal girth to suggest ascites, worsening jaundice, edema, or GI bleeding. I do not think a liver biopsy is required given his improving laboratories with a total bilirubin of 4.7 currently compared to a level of approximately 16 just about 3 weeks ago while in [place]. I shall check followup laboratories at the end of this week and will make a further determination of the timing of future blood tests based on those results. I advised him to continue his ursodiol although I don't think that he will need that on a long-term basis. I did advise him to stay off the statin medication for the time being although I don't think that is the cause of this acute liver problem. I also advised him to avoid any acetaminophen and NSAIDs for the time being as well. Obviously he will continue to avoid alcohol as he has done for the past several decades. I have given him an appointment to see me again toward the end of the year prior to his leaving for [place] for the winter. I did advise him and his to certainly call me if he has any problems or questions I can be of assistance with. Volodymyr and his were comfortable with this plan. Thank you again for allowing me to participate in Volodymyr's care. I shall continue to keep you advised of his progress. 02/26/2024 Pruritus (ICD-10 - L29.9) Overall, Volodymyr appears well at the present time. We did review that his current clinical history seems to be a duplication of the same issue that he had from May of 2022 through August of 2022 in regard to the exposure to amoxicillin, development of jaundice without any etiology to suggest biliary obstruction or other chronic liver disease, and then what appears to be another spontaneous resolution of the problem. At this point I advised him and his that he should consider amoxicillin to be an allergy and he should be sure to tell all his providers of that. I did advise him that he should avoid other medications such as Augmentin and other medications in the penicillin family. At this point, since he is spontaneously improving again, I don't think he needs to be treated with any steroids at this time. He clearly does not show any signs of liver failure such as encephalopathy, increasing abdominal girth to suggest ascites, worsening jaundice, edema, or GI bleeding. I do not think a liver biopsy is required given his improving laboratories with a total bilirubin of 4.7 currently compared to a level of approximately 16 just about 3 weeks ago while in [place]. I shall check followup laboratories at the end of this week and will make a further determination of the timing of future blood tests based on those results. I advised him to continue his ursodiol although I don't think that he will need that on a long-term basis. I did advise him to stay off the statin medication for the time being although I don't think that is the cause of this acute liver problem. I also advised him to avoid any acetaminophen and NSAIDs for the time being as well. Obviously he will continue to avoid alcohol as he has done for the past several decades. I have given him an appointment to see me again toward the end of the year prior to his leaving for [place] for the winter. I did advise him and his to certainly call me if he has any problems or questions [...] and all other drugs in that class buttermaker helper, including Augmentin. I don't think he needs [...] keep you advised of his progress. 05/16/2024 Hx of adenomatous colonic polyps (ICD-10 - Z86.010) We will discuss colonoscopy when I see you in 2024 Overall, Volodymyr appears quite well. His jaundice and elevated LFTs have resolved completely. We did review the underlying etiology of this again as being that of an allergy to amoxicillin and the need to avoid that and all other drugs in that class buttermaker helper, including Augmentin. I don't think he needs [...] to keep you advised of his progress. 02/19/2024 Elevated LFTs (ICD-10 - R79.89) 03/02/2024 Elevated [...] and all other drugs in that class buttermaker helper, including Augmentin. I don't think he needs [...] advised of his progress. Plan Of Treatment Pending Test Test Name Order Date CHEM 7 PROFILE 02/26/2024 CHEM 7 PROFILE 06/16/2022 CHEM 7 PROFILE 06/14/2022 LIVER PROFILE 06/29/2022 LIVER PROFILE 03/02/2024 LIVER PROFILE 02/19/2024 LIVER PROFILE 06/14/2022 LIVER PROFILE 02/26/2024 LIVER PROFILE 03/13/2024 LIVER PROFILE 08/11/2022 LIVER PROFILE 06/16/2022 LIVER PROFILE 08/11/2022 LIVER PROFILE 06/21/2022 IRON + IBC (FE) 02/19/2024 IRON + IBC (FE) 08/11/2022 IRON + IBC (FE) 06/16/2022 IRON + IBC (FE) 08/11/2022 FERRITIN 02/19/2024 CRP 06/16/2022 CBC w DIFF 06/14/2022 CBC w DIFF 02/26/2024 CBC w/o DIFF 02/19/2024 SED RATE (ESR) 06/16/2022 PROTHROMBIN TIME (PT, INR) 06/16/2022 PROTHROMBIN TIME (PT, INR) 02/26/2024 PROTHROMBIN TIME (PT, INR) 06/21/2022 PROTHROMBIN TIME (PT, INR) 02/19/2024 HEPATITIS A,B,C PROFILE 02/19/2024 HEPATITIS A,B,C PROFILE 06/16/2022 [id number] (A1A) 06/16/2022 MITOCHONDRIAL AB 02/19/2024 SMOOTH MUSCLE ANTIBODIES 02/19/2024 MRI ABD W&WO CONTRAST 06/16/2022 FLUOR. ANTINUCLEAR AB SCREEN ([facility]) 12/2023 FLUOR. ANTINUCLEAR AB SCREEN ([facility]) 08/2021 Prothrombin Time INR 06/29/2022 Ferritin 08/11/2022 Ferritin 08/11/2022 Future Test Test Name Order Date COLONOSCOPY 01/27/2014 COLONOSCOPY 11/20/2019 Next Appt Details Provider Name:Darrian Allen Khan , 11/20/2024 09:40:00 AM, [address] [place] [address], [address], [place], [address], Insurance Providers Payer Name Payer Address Payer Phone Subscriber Number Group Number Insured Name Patient Relationship to Insured Coverage Start Date Coverage End Date [facility] [address] [address] [place] [address] [id number] VOLODYMYR ARNOLD Self - patient is the insured Medical (General) History Medical History History ICD Code Hyperlipidemia Colonoscopy 10-12-2008--1 tub ular adenoma removed; colonoscopy 03/2014 with 2 small tubular adenomas EGD [place] [address] Walter-- negative except for mild reflux-there was no Hough's esophagus nor significant esophagitis Irregular heartbeat--Atrial fibrillation/PVC's--Dr. Shearer. Had an ablation in 04/[address] Kem Lindsay [place],DM,CVA,Lung disease,renal dise ase Bladder cancer 06/2013--has periodic [...] Knee replacement-partial--- left 08/2019 Right big toe [id number]. Mazzucco 2020
--- OUTSIDE RECORDS SUMMARY | 2024-09-18 11:14 | XMS_ITS | Continuity of Care Document ---
Author Name [facility] Organization [facility] Care Team Providers Care On Air Personality Name Role Phone [facility] Unavailable Unavailable Problems Combined list of problems [...] HCS Exposure to potentially hazardous substance (SCT [id number]) Active Condition Oct 18 4 Entered By: LIUDMILA SUBRAMANIAN Comment: Entered automatically through [facility] Problem List documentation program [facility] Exposure to potentially hazardous substance (SCT [id number]) Active Condition Apr 15 4 Entered By: [...] EMMANUEL JI Comment: DR Corrie BLANTON ( [facility]) - visit 12/11/18Ju2017 Entered By: EMMANUEL JI Comment: [place] - 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 IN [place] ( JUN THRU NOVEMBER )Apr 30, 2018 Entered By: EMMANUEL JI Comment: NON [facility] -December 12, 2018 Entered By: EMMANUEL JI Comment: NON [facility] ( [place] ( [facility]- DR Del Valle / Lenin COHEN [...] H90.3 Sensorineural hearing loss, bilateral Active Diagnosis [facility] Diagnosis: ICD-10-CM 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 [facility] Medications Combined list of outpatient medications [...] G RESPIR ATORY (INHAL ATION) ACTIVE 04/18/2025 [id number] PERCY BULLOCK 2023 60 [facility] APIXABAN 5MG TAB TAKE ONE TABLET BY MOUTH EVERY 12 HOURS ORAL ACTIVE RA DARREN RODRIGUEZ 2021 [facility] APIXABAN 5MG TAB TAKE ONE TABLET BY MOUTH EVERY 12 HOURS ORAL ACTIVE AZARBSharyn RAZO 2023 [facility] ASPIRIN 81MG TAB,EC TAKE ONE TABLET BY MOUTH TWICE DAILY ORAL complet Mike Martinez 2018 [facility] CETIRIZINE HCL 10MG TAB TAKE ONE-HALF TABLET BY MOUTH EVERY DAY ORAL ACTIVE AZARBALSharyn 2023 [facility] DOCETAXEL INJ,CONC INJECT INTRAVEN OUSLY INTRAV ENOUS ACTIVE AZARBALJ KOTA 2023 [facility] DOCUSATE NA 250MG CAP TAKE 1 CAPSULE BY MOUTH EVERY DAY ORAL ACTIVE AZARBALSharyn 2023 [facility] FLUTICASONE 250MCG/SALM ETEROL 50MCG INHL,ORAL,D ISKUS,60 INHALE 1 PUFF BY MOUTH EVERY DAY ORAL ACTIVE AZARBALSharyn 2023 [facility] GEMCITABINE HCL INJ INJ INJECT 200 MG INTRAVEN OUSLY INTRAV ENOUS ACTIVE AZARBALSharyn 2023 [facility] IPRATROPIUM BR 0.03% SOLN,SPRAY, NASAL 1 SPRAY INTO EACH NOSTRIL EVERY DAY NASAL ACTIVE AZAADANSharyn GUERRA2023 [facility] METOPROLOL SUCCINATE 100MG TAB,SA TAKE ONE-HALF TABLET BY MOUTH TWICE A DAY ORAL ACTIVE AZAADANSharyn GUERRA2023 [facility] METOPROLOL TARTRATE 50MG TAB TAKE ONE TABLET BY MOUTH TWICE DAILY ORAL ACTIVE PETROFF,S 2018 [facility] OMEPRAZOLE 20MG CAP,EC TAKE 1 CAPSULE BY MOUTH EVERY DAY ORAL ACTIVE AZARBALSharyn GUERRA2023 [facility] OMEPRAZOLE 20MG CAP,EC TAKE 1 CAPSULE BY MOUTH EVERY MORNING 30 MINUTES BEFORE BREAKFAS T ORAL ACTIVE PETROFF,S 2018 [facility] POLYETHYLEN E GLYCOL 3350 PWDR,ORAL TAKE 17 GM (ONE CAPFUL) BY MOUTH EVERY DAY ORAL ACTIVE MARGARETSharyn GUERRA2023 [facility] PREDNISONE 20MG TAB TAKE TWO TABLETS BY MOUTH ONCE DAILY COPD FLARE ORAL 05/11/2024 [id number] PECRY BULLOCK 2023 10 [facility] SIMVASTATIN 80MG TAB TAKE ONE-HALF TABLET BY MOUTH AT BEDTIME ORAL ACTIVE PETROFF,S 2018 [facility] SIMVASTATIN 80MG TAB TAKE ONE-HALF TABLET BY MOUTH AT BEDTIME ORAL ACTIVE CLAUDIAPEDRITODANNISharyn GUERRA2023 [facility] TIOTROPIUM 18MCG CAP,INHL,30 INSERT 1 CAPSULE INTO AEROLIZE R AND INHALE BY MOUTH EVERY DAY RESPIR ATORY (INHAL ATION) ACTIVE MARGARETSharyn 2023 [facility] Allergies, Adverse Reactions, Alerts Combined list of allergies from Department of Defense and Veterans Affairs facilities. It does not include entries that were removed or entered in error. Substance Category Reaction Severity Reaction type Status Date Reported Comments Source AMOXICILLIN Propensity to adverse reactions to drug (finding) Jaundice SEVERE active 4 [facility] CODEINE Propensity to adverse reactions to drug (finding) Nausea and vomiting active 4 [facility] MULTAQ Propensity to adverse reactions to drug (finding) Eruption [facility] Immunizations Combined list of available immunizations from the Department of Defense and Veterans Affairs facilities. Immunization Series Date Given Administered By Site Reaction Lot Number CVX Code Drug Outreach Team Member Status Comments Source INFLUENZA, HIGH-DOSE, TRIVALENT, PF 2023 ALEC BENTLEY RIGHT DELTO ID [id number] 135 complet ed [facility] RSV, BIVALENT, PROTEIN SUBUNIT RSVPREF, DILUENT RECONSTITUTED , 0.5 ML, PF 2023 [facility] LEFT DELTO ID [id number] 305 complet ed Sterile water diluent Lot #- [id number] 11/2024 [facility] RSV, RECOMBINANT, PROTEIN SUBUNIT RSVPREF, ADJUVANT RECONSTITUTED , 0.5 ML, PF 2022 303 complet ed [facility] INFLUENZA, HIGH-DOSE, QUADRIVALENT 2022 ALEC BENTLEY LEFT DELTO ID [id number] 197 complet ed [facility] INFLUENZA, UNSPECIFIED FORMULATION 2022 88 complet ed [facility] COVID-19 (PFIZER), MRNA, LNP-S, PF, 30 MCG/0.3 ML DOSE 2020 208 complet ed [facility] INFLUENZA, UNSPECIFIED FORMULATION 2020 88 complet ed [facility] COVID-19 (PFIZER), MRNA, LNP-S, PF, 30 MCG/0.3 ML DOSE 2 2020 208 complet ed [facility] COVID-19 (PFIZER), MRNA, LNP-S, PF, 30 MCG/0.3 ML DOSE 1 2020 208 complet ed [place] ZOSTER RECOMBINANT 1 2018 187 complet ed [facility] ZOSTER RECOMBINANT 1 2018 187 complet ed [facility] INFLUENZA, TRIVALENT, ADJUVANTED 2018 168 complet ed Site: Left Deltoid [facility] INFLUENZA, SEASONAL, INJECTABLE 2017 141 complet ed Site: Left Deltoid [facility] INFLUENZA, SEASONAL, INJECTABLE 2016 141 complet ed [facility] PNEUMOCOCCAL CONJUGATE PCV 13 2015 133 complet ed [facility] PNEUMOCOCCAL POLYSACCHARID E PPV23 2014 33 complet ed [facility] TDAP 2014 115 complet ed [facility] Vital Signs Combined list of inpatient and outpatient Vital Signs from Department of Defense and Veterans Affairs, ranging from 12 months to all on record, depending upon the facility. Vital Sign Value Date Comments Source SYSTOLIC BLOOD PRESSURE 125 04/11/20 24 09:48:39 [facility] DIASTOLIC BLOOD PRESSURE 80 024 09:48:39 [facility] PULSE OXIMETRY 94 04/11/2024 09:48:39 [facility] WEIGHT 208.2 04/11/2024 09:48:39 [facility] BMI 34 kg/m2 04/11/2024 09:48:39 [facility] PAIN 1 04/11/2024 09:48:39 [facility] TEMPERATURE 97.5 04/11/2024 09:48:39 [facility] PULSE 68 04/11/2024 09:48:39 [facility] RESPIRATION 16 04/11/2024 09:48:39 [facility] SYSTOLIC BLOOD PRESSURE 129 09/24/19 24 09:24:42 [facility] DIASTOLIC BLOOD PRESSURE 86 024 09:24:42 [facility] PULSE OXIMETRY 97 09/24/2023 09:24:42 [facility] WEIGHT 206 09/24/2023 09:24:42 [facility] BMI 33 kg/m2 09/24/2023 09:24:42 [facility] PAIN 3 09/24/2023 09:24:42 [facility] HEIGHT 66 09/24/2023 09:24:42 [facility] TEMPERATURE 98 09/24/2023 09:24:42 [facility] PULSE 65 09/24/2023 09:24:42 [facility] RESPIRATION 18 09/24/2023 09:24:42 [facility] Encounters Combined list of: 1) Encounters from Department of Veterans Affairs facilities going backup to the last 18 months, not all [place] inpatient encounters are included; 2) Encounters from the Department of [facility] facilities going backup to 280 months. Location Location Details Encounter Type Encounter Number Reason For Visit Attending Provider ADM Date DC Date Status Disposition Source [facility] Outpatient Encounter [id number] 04/09 [facility] OFFICE O/P EST MOD 30-39 MIN [id number] Diagnos is: ICD-10- CM I48.91 Unspeci fied atrial fibrill ation Corrie BULLOCK 04[place]09 [place] [facility] [place] Outpatient Encounter [id number] 06/05 [facility] Outpatient Encounter [id number] 09/19 [facility] Outpatient Encounter [id number] 09/23 [facility] OFFICE O/P [place] 60 MIN [id number] Diagnos is: ICD-10- CM D09.0 Carcino ma in situ of bladder LYNNETTE ROBLES 09/23 [facility] TARGETED CASE MANAGEMENT [id number] KARELY ARANA 09/25 [facility] HEARING AID FITTING/CH ECKING [id number] Diagnos is: ICD-10- CM Z46.1 Encount er for fitting and adjustm ent of hearing aid Tiesha HERR 12/19 [facility] Outpatient Encounter [id number] 02/07 [facility] Outpatient Encounter [id number] 02/07 [facility] HEARING AID REPAIR/MOD IFYING [id number] Diagnos is: ICD-10- CM H90.3 Sensori neural hearing loss, bilater al JASMEETILANA ELITim L 03/10 [facility] OFFICE O/P EST MOD 30 MIN [id number] Diagnos is: ICD-10- CM I48.91 Unspeci fied atrial fibrill ation ARA,L MICH KYMBERLY 04/11 [facility] HEARING SERVICE [id number] Diagnos is: ICD-10- CM Z46.1 Encount er for fitting and adjustm ent of hearing aid JASMEETILANA ELI SATURNINO L 04/11 [facility] Outpatient Encounter [id number] 04/12 [facility] SPECIAL SUPPLIES PHYS/QHP [id number] Diagnos is: ICD-10- CM J44.9 Chronic obstruc tive pulmona ry disease , unspeci fied ST AMHOLLIE MONTOYA E P 04/17 [facility] Out[facility] Encounter [id number] 04/18 [facility] Outpatient Encounter [id number] 04/18 [facility] Outpatient Encounter [id number] 04/21 [facility] Outpatient Encounter [id number] 04/22 [facility] HEARING AID CHECK BOTH EARS [id number] Diagnos is: ICD-10- CM Z46.1 Encount er for fitting and adjustm ent of hearing aid CHUY ORTIZ 04/29 [facility] En[facility] [id number] 05/19 [facility] HEARING AID FITTING/CH ECKING [id number] Diagnos is: ICD-10- CM Z46.1 Encount er for fitting and adjustm ent of hearing aid ILANA PITTS 05/20 [facility] En[facility] [id number] 06/24 [facility] En[facility] [id number] 07/28 [facility] Social History Combined list of available smoking, tobacco, and other social history from Department of Defense and Veterans Affairs facilities. Social History Type Response Date Comment Sourc e Tobacco smoking status NHIS [facility]BACCO FORMER USER 04/11/2024 [facility] History of tobacco use VA-TOBACCO QUIT 5 TO < 15 YRS 04/11/2024 [facility] History of tobacco use [place]-TOBACCO FORMER USER 09/24/2023 [facility] History of tobacco use IA-TOBACCO QUIT 5 TO < 15 YRS 04/09/2023 [facility] History of tobacco use IA-TOBACCO QUIT 5 TO < 15 YRS 04/13/2022 [facility] History of tobacco use IA-TOBACCO QUIT 5 TO < 15 YRS 04/12/2021 [facility] History of tobacco use IA-TOBACCO QUIT 5 TO < 15 YRS 03/19/2020 [facility] History of tobacco use IA-TOBACCO QUIT 5 TO < 15 YRS 12/12/2018 [facility] History of tobacco use QUIT TOBACCO USE > 7 YEARS AGO 01/21/2018 [facility] History of tobacco use QUIT TOBACCO USE > 7 YEARS AGO 12/25/2016 [facility] Plan of Care List of future care activities from Department [facility] facilities. Additional future care activities may be listed in the Assessment and Plan section. Date/Time Care Activity Care Activity Detail Facili ty 01/13/2025 AMBULATORY - MEDICINE AMBULATORY - MEDICI [facility] Advance Directives List of completed, amended, or rescinded Advance Directives on record at Department [facility] facilities. An actual copy of the Directive is not included. Date Advance Directive Provider Source 05/23/2015 ADVANCE DIRECTIVE AMBER PE[facility]
== END 2024-09-18 10:34 | disposition home or self-care (01) ==
PROVIDERS: PCP Internal Medicine; Visit Provider Internal Medicine
DX: J45.909 Unspecified asthma, uncomplicated (principal); R05.3 Chronic cough; Z87.891 Personal history of nicotine dependence; G47.33 Obstructive sleep apnea (adult) (pediatric); Z99.89 Dependence on other enabling machines and devices
CPT/HCPCS: 99213

== ENCOUNTER → 2024-09-18 09:47 | Outpatient (BNVA) | payer MEDICARE, SELFPAY | PROVIDERS: PCP Internal Medicine; Visit Provider Internal Medicine | DX: J45.909 Unspecified asthma, uncomplicated (principal); R05.3 Chronic cough; G47.33 Obstructive sleep apnea (adult) (pediatric); E66.9 Obesity, unspecified; R05.9 Cough, unspecified; Z99.89 Dependence on other enabling machines and devices; Z87.891 Personal history of nicotine dependence | CPT/HCPCS: 99212 ==

== ENCOUNTER 2024-11-18 10:41 | Outpatient (AMB) | payer OTHER, SELFPAY ==
--- NOTE | 2024-11-18 10:57 | A.OFFVIS_ITS ---
Intake Visit Reasons: cysto Intake Note: Patient is present for Cystoscopy Urology Medication:NONE Antibiotic Allergy:AMOXICILLIN,PENICILLIN Blood Thinner: APIXABAN Lot:[id number] Exp:11/21/26 Range Conservationist Required: No Allergies dronedarone [From Multaq] Allergy (Mild, Verified 11/18/24 10:59) Rash amoxicillin [From Augmentin] Allergy (Verified 11/18/24 10:59) liver failure clavulanic acid [From Augmentin] Allergy (Verified 11/18/24 10:59) liver failure Penicillins Adverse Reaction (Intermediate, Verified 11/18/24 10:59) Unknown HPI Comments Details: Volodymyr is a very pleasant male. He is a patient of Dr. Jackson. He is seen for the following urologic conditions - bladder cancer - urinary tract infection Cystoscopy normal 4 month follow-up check cysto Persistent redness on dome [place] -Dome patch had been fulgurated 06/07 Bladder Cancer low-grade superficial recurrent T1 2019, 07/05 06/06 CIS on biopsy [place] [facility] - Dr Hugo - [facility] Initial diagnosis superficial bladder cancer, recurrent Interventions - TURBT [place], [place] 06/2021 - 06/06 TURBT CIS with MMC treatment - 03/07 fulguration bladder dome with 3 week MMC Cytarabine - 07/08 biopsy with inflammation - mitomycin-C cytarabine given at time Adjuvant therapy - BCG induction x2, completed induction Aug 2021 - Gemcitabine - 03/07 2 week MMC with Cytarabine boost - 12/06 gemcitabine docetaxel three-week boost Check cystoscopy - 01/03 BCG changes with mucosal erythema patches - 11/04 no evidence of recurrent disease - 04/06 posterior wall patch - TURBT CIS - 10/05 NAD, 01/05 bladder dome mucosal changes Cytology - 11/04 rare atypical, 04/06 suspicious, 10/05 rare atypical, 06/07 atypical Risk factors - 40 year pack per day smoking history - Agent [place] exposure Therapeutic plan - three-month follow-up cysto Urinary tract infection 08/07 E coli ESBL Trouble with recurrent urinary tract infections Culture shows ESBL E coli resistant to most oral antibiotics [facility] Medical History (Updated 09/18/24 @ 13:12 by Ramin Christie MD) Acute respiratory disease Bladder cancer Atrial fibrillation SVT (supraventricular tachycardia) LBBB (left bundle branch block) PVC (premature ventricular contraction) Hypercholesterolemia Asthma COPD (chronic obstructive pulmonary disease) Jaundice ANALY on CPAP Cough Personal history of nicotine dependence History of COVID-19 History of small bowel obstruction GERD (gastroesophageal reflux disease) Erectile dysfunction Obesity (BMI 30-39.9) Surgical History (Updated 11/17/24 @ 11:43 by Lori Alexander) History of colonoscopy (~11/26/19) History of foot surgery (~2021) History of laparotomy (~2020) History of arthroplasty of right knee (~2020) History of meniscectomy of right knee (~2011) History of cataract surgery (~2020) History of appendectomy History of arthroplasty of left knee (~2019) History of meniscectomy of left knee (~2018) History of bladder surgery Hx of transurethral destruction of bladder lesion Family History Father Lung cancer Mother History of breast cancer Sister Multiple myeloma Other Cough Social History Household Members: Spouse Housing: House Are you a primary intensive care medicine specialist to a significant other at home: No Do you presently have visiting nurse or other home services: No Alcohol intake: former Patient Tobacco Use Status: Former Tobacco user Tobacco use type: Cigarette Years Smoked: (former smoker - onset 14yo, 1ppd x 46yrs, 45pyh, quit 2009) e-Cigarette/Vaping Use: Never Used Second Hand Smoke Exposure: No Advance Directives Date on File: 02/14/21 service: Yes ( [employer] - served in [facility]) Current occupational status: retired Current occupational exposures/hazards: Yes (was exposed to Agent [place] while serving in [employer]) Cognitive needs: No Hearing needs: Yes (hearing aide) Vision needs: No Review of Systems Const Denies chills and Denies fever(s) Card Reports no additional complaints and Denies syncope Resp Denies cough GI Denies abdominal pain and Denies heartburn Reports as per HPI and Denies change in libido Neuro Denies syncope Psych Denies change in libido Endo Denies change in libido Physical Exam Const General: cooperative, healthy appearing, comfortable and no acute distress Orientation/consciousness: patient oriented x3 HEENT Face and sinus: Yes normal facial exam Mouth: moist mucous membranes Neck Neck: Yes normal visual inspection, Yes full ROM and Yes trachea midline Chest Chest palpation & inspection: normal inspection of the chest Resp Effort & Inspection: normal respiratory effort, able to speak in complete sentences and no respiratory distress GI Inspection: Yes normal to inspection Back/Spine/Pelvis Cervical Spine: normal cervical lordosis Thoracic/Lumbar Spine: thoracic and lumbar spine normal to inspection Skin General skin exam: no rashes or lesions noted Neuro General: patient oriented x3, gait normal, tone normal and moves all extremities Extrem General: Yes normal to inspection and Yes capillary refill normal Office Procedures Cystoscopy Consent Discussed risk and benefit or proposed procedure with the patient. Information consent for procedure given to the patient. Discussed technical aspects, risks, benefits and alternatives in full. Addressed all of the patient's questions and concerns regarding the procedure. The patient demonstrated knowledge and understanding. They wish to proceed with this procedure. Preparation The patient was prepped in the usual manner. A gem technician was present and in the room. Genitalia was prepped with betadine solution in a sterile manner. Lidocaine Jelly 2% was placed into the urethra and 16Fr flexible Olympus cystoscope was inserted into the meatus after adequate lubrication. Procedure Cystoscopy performed using a disposable Urovue digital 16 Maltese cystoscope. Meatus circumcised Urethra anterior and posterior urethra normal Prostatic Urethra unremarkable TURP defect Bladder examination with retroflexion of cystoscope Bladder Orifices normal shape and position Bladder Capacity Normal Trabeculations grade 1 Cellule Formation None Diverticulum Formation None Mucosal Erythema changes consistent with topical therapy Bladder Tumor None 53451-[id number] DISPOSABLE SCOPE URO-G FLEXIBLE SCOPE Procedure code (CPT) selection complete Office Meds lidocaine HCl 2 % mucosal jelly in applicator Performing Provider: Darrin Alicea MD [facility] Administered by: Evan Devine LPN on 11/18/24 11:13 Dose Route Admin Location Dispensed Lot Number Expiration Date [facility] Automobile Tester 10 mL intra-urethral 10 mL nitrofurantoin monohydrate/macrocrystals 100 mg capsule Performing Provider: Darrin Alicea MD Performing [facility] Administered by: Evan Devine LPN on 11/18/24 11:13 Dose Route Admin Location Dispensed Lot Number Expiration Date [place] [employer] Tester 100 mg PO 1 cap Results AMB Urinalysis, Automated UA Leukoctes 0 Candice/uL Last Edit by CACHORRO Suazo on 11/18/24 11:14 UA Nitrite Negative Last Edit by Jonathan Ferreira [facility] on 11/18/24 11:14 UA Urobilinogen 0.2 mg/dL Last Edit by Jonathan Ferreira [facility] on 11/18/24 11:1 4 UA Protein 0 mg/dL Last Edit by Jonathan Ferreira [facility] on 11/18/24 11:14 UA pH 6.0 Last Edit by Jonathan Ferreira [facility] on 11/18/24 11:14 UA Blood 80 Clive/uL Last Edit by Jonathan Ferreira [facility] on 11/18/24 11:14 UA Specific [place] 1.015 Last Edit by Jonathan Ferreira [facility] on 11/18/24 11: 14 UA Ketone Negative Last Edit by Jonathan Ferreira [facility] on 11/18/24 11:14 UA Bilirubin 0 mg/dL Last Edit by Jonathan Ferreira [facility] on 11/18/24 11:14 UA Glucose 0 mg/dL Last Edit by Jonathan Ferreira [facility] on 11/18/24 11:14 Results Reviewed Results Reviewed: Laboratory Last Values Urine pH (Auto) 6.0 11/18/24 11:13 Specific [place] (Auto) 1.015 11/18/24 11:13 Urine Protein (Auto) 0 mg/dL 11/18/24 11:13 Glucose (UA)(Auto) 0 mg/dL 11/18/24 11:13 Urine Ketones (Auto) Negative 11/18/24 11:13 Urine Blood (Auto) 80 Clive/uL 11/18/24 11:13 Urine Nitrite (Auto) Negative 11/18/24 11:13 Urine Bilirubin (Auto) 0 mg/dL 11/18/24 11:13 Urine Urobilinogen (Auto) 0.2 mg/dL 11/18/24 11:13 Leukocyte Esterase (Auto) 0 Candice/uL 11/18/24 11:13 Assessment & Plan Assessment & Plan (1) Bladder cancer: Comment: TURBT 06/28 pTaLG, 06/29 Dr Mckeon pTaLG, 05/2016 BCG, 06/04 [place] pT1LG, 07/05 [place] pTaLG BCG induction Fulguration and mitomycin-C May 2022 TURBT May 2022 CIS, bladder surgery 07/2023 Code(s): C67.9 - Malignant neoplasm of bladder, unspecified Category: Medical Plan Four month follow-up check cysto Orders: Orders AMB Urinalysis Automated Today Z13.9 - Encounter for screening, unspecified Urine Cytology Today C67.9 - Malignant neoplasm of bladder, unspecified AMB Cystoscopy Today C67.9 - Malignant neoplasm of bladder, unspecified Patient Instructions: This note is constructed using voice recognition software. While every effort has been made to ensure accuracy sales and marketing engineer errors may have been included. Imaging studies, laboratory and physical exam results were discussed and reviewed in detail. No major barriers to patient understanding were identified. An opportunity to ask questions regarding the treatment plan was provided. All questions were answered. The patient expressed understanding and agreement with the above treatment plan. The patient is aware they should contact our office by phone for worsening of their current condition or the appearance of new urologic symptoms. Compliance is encouraged with any medications and followup testing that is ordered. It is a privilege to participate in the urologic care of your patient. If you have any questions or concerns regarding treatment for the above conditions, or other urologic issues, please do not hesitate to contact me. The office telephone contact is [phone]. Sincerely, Dr Darrin Alicea MD, MINN[facility] - Urology Compassionate Specialist Care for the Genitourinary System Coding Level of Care Code Est Pt Level 3 (77123) Complex EM visit Add On G2211 Diagnoses Bladder cancer C67.9 CPT Codes Cystoscopy - CPT: 66062-[id number] ([id number])
--- OUTSIDE RECORDS SUMMARY | 2024-11-18 12:18 | XMS_ITS | Encounter Summary ---
Author Name [place] Address [address] [place] [address] Care Team Providers Care Beet Topper Name Role Phone MAGDALENA GO Primary Care Provider PERCY Zuniga Primary Care Provider Unavailabl e Insurance Providers: [...] PART A Dec 14, 2012 PART A [id number] GENEVIEVE ARNOLD JR PATIENT MEDICARE (WNR) MEDICARE (M) PART B Dec 14, 2012 PART B [id number] GENEVIEVE ARNOLD PATIENT MEDICARE PART D (WNR) PRESCRIPT ION PART D Dec 14, 2012 PART D [id number] GENEVIEVE ARNOLD PATIENT [facility] (WNR) MEDICARE ADVANTAGE [facility](W NR) Jul 16, 2022 [id number] GENEVIEVE ARNOLD PATIENT [facility] (WNR) MEDICARE ADVANTAGE [facility] (WNR) Jul 16, 2017 [id number] GENEVIEVE ARNOLD PATIENT Selected Encounter This section includes the information on record at [place] for the Encounter. Date/Time Encounter Type Encounter Description Reason Provider Source Dec 20, 2023 11:00 AM HEARING AID FITTING/CHECKIN G AUDIOLOGY ICD-10-CM Z46.1 Encounter for fitting and adjustment of hearing aid VIDAL HERR IHAmaya Encounter Template Text not used by CT Assessments - Encounter Diagnoses This section includes the primary and secondary diagnoses documented for the Encounter. Date/Time Primary/Secondary Diagnosis Diagnosis Name Provider Source Dec 20, 2023 11:25 AM PRIMARY Encounter for fitting and adjustment of hearing aid VIDAL HERR [facility] [place] [facility] Dec 20, 2023 11:25 AM SECONDARY Sensorineural hearing loss, bilateral ROSENDA HERRA Amaya [facility] [place] [facility] Plan of Treatment: Future Appointments (+ 6 months) and Future Tests (+/- 45 days) The Plan of Treatment section includes future care activities for the patient [facility] This section includes future appointments and future [...] REHAB MEDICIN E [facility] [place] [facility] Apr 11, 2024 09:30 AM AMBULATORY - MEDICINE CT C [facility] [place] [facility] Apr 11, 2024 11:00 AM AMBULATORY - [facility] MEDICIN E [place] [facility] [place] [facility] Apr 29, 2024 01:00 PM AMBULATORY - REHAB MEDICIN E [facility] [place] [facility] May 19, 2024 02:00 PM AMBULATORY - MEDICINE CT C [facility] [place] [facility] May 20, 2024 09:00 AM AMBULATORY - REHAB MEDICIN E [place] [facility] [place] [facility] Social History: Smoking Status (Most [...] VA-TOBACCO FORMER USER CT [facility] [place] [facility] Tobacco Use History This section includes a history of the smoking, or tobacco-related health factors, that were collected on or before the date of the Encounter. The data comes from the [place] facility where the Encounter took place. Date/Time Smoking Status/Tobacco Use Comment F acsridhar Apr 09, 2023 09:00 AM VA-TOBACCO QUIT 5 TO < [address] [facility] [place] [facility] Apr 13, 2022 09:30 AM VA-TOBACCO FORMER USER [facility] [place] [facility] Apr 13, 2022 09:30 AM VA-TOBACCO QUIT 5 TO < 15 YRS [facility] [place] [facility] Apr 12, 2021 11:30 AM VA-TOBACCO FORMER USER CT [facility] [place] [facility] Apr 12, 2021 11:30 AM VA-TOBACCO QUIT 5 TO < 15 YRS [facility] [place] [facility] Mar 19, 2020 09:00 AM VA-TOBACCO FORMER USER CT [facility] [place] [facility] Mar 19, 2020 09:00 AM VA-TOBACCO QUIT 5 TO < 15 YRS [facility] [place] [facility] December 12, 2018 10:18 AM VA-TOBACCO FORMER USER CT [facility] [place] [facility] December 12, 2018 10:18 AM VA-TOBACCO QUIT 5 TO < [address] [facility] [place] [facility] Jan 21, 2018 07:50 AM QUIT TOBACCO USE > [address] [facility] [place] [facility] Dec 25, 2016 10:59 AM QUIT TOBACCO USE > [address] [facility] [place] [facility] Advance Directives: All historical and [...] May 23, 2015 ADVANCE DIRECTIVE AMBER PENA [facility] Encounter Notes: All associated encounter notes This section contains the clinical notes associated to the Encounter. Date/Time Encounter Note(s) Provider Source Dec 20, 2023 09:00 AM AUDIOLOGY E & M NO TE: LOCAL TITLE: AUDIOLOGY CLINIC STANDARD TITLE: AUDIOLOGY E & M NOTE DATE OF NOTE: DEC 20, 2023@09:00 ENTRY DATE: DEC 20, 2023@09:00:03 AUTHOR: VIDAL HERR EXP COSIGNER: URGENCY: STATUS: COMPLETED [place] has a history of bilateral sensorineural hearing [...] at 11am, RTC placed. /kristen/ Checo SCHULTZ, [facility]-A STAFF [facility] LOCATION MANAGER Signed: 12/20/2023 11:27 Receipt Acknowledged By: 12/20/2023 11:36 /kristen/ PERCY ERWIN LEAD CAM MAKER VIDAL HERR [facility]
--- OUTSIDE RECORDS SUMMARY | 2024-11-18 12:18 | XMS_ITS | Encounter Summary ---
Author Name [facility] [place] Address [address] [place] [address] Care Team Providers Care Nurse Navigator Name Role Phone MAGDALENA GO Primary Care Provider Unavailable PERCY BULLOCK Primary Care Provider Unavailabl e [...] PART A Dec 14, 2012 PART A [id number] GENEVIEVE ARNOLD JR PATIENT MEDICARE (WNR) MEDICARE (M) PART B Dec 14, 2012 PART B [id number] GENEVIEVE ARNOLD PATIENT MEDICARE PART D (WNR) PRESCRIPT ION PART D Dec 14, 2012 PART D [id number] GENEVIEVE ARNOLD PATIENT [facility] (WN) MEDICARE ADVANTAGE [facility](W NR) Jul 16, 2022 [id number] GENEVIEVE ARNOLD PATIENT [facility] (WNR) MEDICARE ADVANTAGE [facility] (WNR) Jul 16, 2017 [id number] GENEVIEVE ARNOLD PATIENT Selected Encounter This section includes the information on record at [place] for the Encounter. Date/Time Encounter Type Encounter [...] this document. The data comes from all [place] facilities. Date Advance Directives Provider Source May 23, 2015 ADVANCE DIRECTIVE AMBER PENA [facility]
--- OUTSIDE RECORDS SUMMARY | 2024-11-18 12:19 | XMS_ITS | Encounter Summary ---
Author Name [place] Address [address] [place] [address] Care Team Providers Care Special Forces Specialist Name Role Phone MAGDALENA GO Primary Care [...] PART A Dec 14, 2012 PART A [id number] GENEVIEVE ARNOLD JR PATIENT MEDICARE (WNR) MEDICARE (M) PART B Dec 14, 2012 PART B [id number] GENEVIEVE ARNOLD PATIENT MEDICARE PART D (WNR) PRESCRIPT ION PART D Dec 14, 2012 PART D [id number] GENEVIEVE ARNOLD PATIENT [facility] (WNR) MEDICARE ADVANTAGE [facility](W NR) Jul 16, 2022 [id number] GENEVIEVE ARNOLD PATIENT [facility] (WNR) MEDICARE ADVANTAGE [facility] (WNR) Jul 16, 2017 [id number] GENEVIEVE ARNOLD PATIENT Selected Encounter This [...] Sensorineural hearing loss, bilateral BONCZEK,ROYER N L [place] [facility] [facility] Mar 10, 2024 11:46 AM SECONDARY Tinnitus, bilateral BONCZEK,ROYER N L [place] [facility] [facility] Plan of Treatment: Future Appointments (+ 6 months) and Future Tests (+/- 45 days) The Plan of Treatment section includes future care activities for the patient from all [place] [facility]. This section includes future [...] 11, 2024 09:30 AM AMBULATORY - MEDICINE [facility] [place] [facility] Apr 11, 2024 11:00 AM AMBULATORY - RE[place] MEDICIN E [place] [facility] [facility] Apr 29, 2024 01:00 PM AMBULATORY - REHAB MEDICIN E [place] [facility] [facility] May 19, 2024 02:00 PM AMBULATORY - MEDICINE [facility] [place] [place] [facility] May 20, 2024 09:00 AM AMBULATORY - REHAB MEDICIN E [place] [facility] [facility] Jun 30, 2024 12:50 PM AMBULATORY - MEDICINE [facility] [place] [facility] Social History: Smoking Status (Most [...] 09, 2023 09:00 AM VA-TOBACCO FORMER USER [place] [facility] [place] [facility] Tobacco Use History This section includes a history of the smoking, or tobacco-related health factors, that were collected on or before the date of the Encounter. The data comes from the [place] facility where the Encounter took place. Date/Time Smoking Status/Tobacco Use Comment F acility Apr 09, 2023 09:00 AM VA-TOBACCO QUIT 5 TO < 15 YRS [place] [facility] [place] [facility] Apr 13, 2022 09:30 AM VA-TOBACCO FORMER USER [place] [facility] [place] [facility] Apr 13, 2022 09:30 AM VA-TOBACCO QUIT 5 TO < 15 YRS [place] [facility] [place] [facility] Apr 12, 2021 11:30 AM VA-TOBACCO FORMER USER [place] [facility] [place] [facility] Apr 12, 2021 11:30 AM VA-TOBACCO QUIT 5 TO < 15 YRS [place] [facility] [place] [facility] Mar 19, 2020 09:00 AM VA-TOBACCO FORMER USER [place] [facility] [place] [facility] Mar 19, 2020 09:00 AM VA-TOBACCO QUIT 5 TO < 15 YRS [place] [facility] [place] [facility] December 12, 2018 10:18 AM VA-TOBACCO FORMER USER [place] [facility] [place] [facility] December 12, 2018 10:18 AM VA-TOBACCO QUIT 5 TO < 15 YRS [place] [facility] [place] [facility] Jan 21, 2018 07:50 AM QUIT TOBACCO USE > 7 YEARS AGO [place] [facility] [place] [facility] Dec 25, 2016 10:59 AM QUIT TOBACCO USE > 7 YEARS AGO [place] [facility] [place] [facility] [...] 23, 2015 ADVANCE DIRECTIVE AMBER PENA [facility] Encounter Notes: All associated encounter notes [...] URGENCY: STATUS: COMPLETED AUDIOLOGY CLINIC Has ADDENDA Remedios was seen March 10, 2024 for a hearing re-evaluation. His last hearing evaluation was on 05/02/21. [place] has a history of asymmetric sensorineural hearing loss (poorer left ear). He was issued bilateral Poonam Mateo Edge AI BTEs on 06/01/21. [place] reports his hearing aids often fall off the top of his ears when he bends over. He reports intermittent tinnitus in both ears. reports he had an episode of vertigo [...] HL (contralateral masking). Normal tympanograms obtained bilaterally. was counseled re: today's test results. He is eligible for new hearing aids given the age of his current devices. [place]'s hearing aids were cleaned and checked. All [...] mini [facility] hearing aids will be ordered. is scheduled for a hearing aid fitting appointment on 04/11/24 at 11am. RTC placed. /kristen/ Tomás Strange, CCC-A Publications Manager Signed: 03/10/2024 12:51 03/26/2024 ADDENDUM STATUS: COMPLETED Hearing aids received and certified, upcoming appointment scheduled on 04/11/2024. /kristen/ CHANA DOBBS Audiology Health Oil Deliverer Signed: 03/26/2024 11:01 [place] P[place] [facility]
--- OUTSIDE RECORDS SUMMARY | 2024-11-18 12:19 | XMS_ITS ---
Author Organization [facility] Address [address] [place] [address] Care Team Providers Care Motel Front Desk Attendant Name Role Phone Any Jackson MD Primary Care Provider Darrian Galvez [phone] XUAN FAULKNER Unavailable Unavailab le REASON FOR VISIT update. vertigo Problems Problem Type SNOMED Code ICD Code Onset Dates Problem Status W/U Status Risk Notes Problem Elevated liver enzymes level ([id number]) Elevated liver function tests (R94.5) Active confirmed Encounters Encounter Location Date Provider Diagnosis [facility] [address] [place] [address] 03/02/2024 Darrian Khan Elevated liver function tests R94.5 Assessments Encounter Date Diagnosis (ICD Code) Assessment Notes Treatment Notes Treatment Clinical Notes Section Notes 03/02/2024 Elevated liver function tests (ICD-10 - R94.5) Plan Of Treatment Pending Test Test Name Order Date LIVER PROFILE 03/02/2024 Next Appt Details Provider Name:Darrian Khan , 11/20/2024 09:40:00 AM, [address] [place] [address], [address], [place], [address], Progress Notes * GENEVIEVE ARNOLD JrDOB: (74 yo M)Acc No.[id number]:03/02/2024 Patient:?GENEVIEVE ARNOLD :1950???Age:74 Y???Sex:Male Address:[address], [place] , [place] [address] Subjective: * Chief Complaints: * ???Fyi update. vertigo * Medical History:? * Surgical History:? * Hospitalization/Major Diagno stic Procedure:? * Medications:? Objective: Assessment: * Assessment: 1.?Elevated liver function t ests - R94.5 (Primary)? Plan: * Treatment: * Procedure Codes:? * true * Date:? Generated for Enrique bullock/Vito/eTmatiassmitting on:?11/18/2024 12:19 PM EDT
--- OUTSIDE RECORDS SUMMARY | 2024-11-18 12:19 | XMS_ITS | Patient Health Record ---
Author Organization [facility] Address [address] [place] [address] Care Team Providers Care Splunk Consultant Name Role Phone yanet ly Primary Care Provider Unavailabl e Allergies Allergen (clinical drug ingredient) Drug/Non Drug Allergy documented on EMR Reaction Allergy Type Onset Date Status dronedarone Multaq rash Drug Allergy Activ e Reason For Referral No Information Medications Medication SIG (Take, Route, Frequency, Duration) Notes Start Date End Date Status Ipratropium [place] 0.03 % 2 sprays in e ach [...] Problem Status W/U Status Risk Notes Problem [id number] Hallux rigidus o f right foot (M20.21) Active confirmed Problem [id number] Anticoagulant long-term use (Z79.01) Active confirmed Plan [...] Date Coverage End Date [employer] Medicare [id number] [address] [address] [place] [address] [id number] Volodymyr Richards Self - patient is the [...] X 2 (Pfizer) and 3 franco ters ([employer]) COPD Jaundice X 1 month E. Coli [...]
--- OUTSIDE RECORDS SUMMARY | 2024-11-18 12:19 | XMS_ITS | Encounter Summary ---
Author Name [facility] [place] [facility] [place] [facility] [place] [facility] [place] Address [address] [place] [address] Care Team Providers Care Service Girl Name Role Phone MAGDALENA GO Primary Care Provider RITA Zuniga Primary Care Provider Unavailabl e Insurance [...] PART A Dec 14, 2012 PART A [id number] GENEVIEVE ARNOLD JR PATIENT MEDICARE (WNR) MEDICARE (M) PART B Dec 14, 2012 PART B [id number] GENEVIEVE ARNOLD PATIENT MEDICARE PART D (WNR) PRESCRIPT ION PART D Dec 14, 2012 PART D [id number] GENEVIEVE ARNOLD PATIENT [facility] (WNR) MEDICARE ADVANTAGE [facility](W NR) Jul 16, 2022 [id number] GENEVIEVE ARNOLD PATIENT [facility] (WNR) MEDICARE ADVANTAGE [facility] (WNR) Jul 16, 2017 [id number] GENEVIEVE ARNOLD PATIENT Selected Encounter This section includes the information on record at [place] for the Encounter. Date/Time Encounter Type Encounter Description Reason Provider Source Apr 11, 2024 09:30 AM OFFICE O/P EST MOD 30 MIN PRIMARY CARE/MEDICINE ICD-10-CM I48.91 Unspecified atrial fibrillation ARARITA CROWE E Encounter Template Text not used by [place] Assessments - Encounter Diagnoses This section includes the primary and secondary diagnoses documented for the Encounter. Date/Time Primary/Secondary Diagnosis Diagnosis Name Provider Source Apr 11, 2024 01:05 PM PRIMARY Unspecified atrial fibrillation ARARITA CROWE [place] [facility] [place] [facility] Apr 11, 2024 01:05 PM SECONDARY Chronic obstructive pulmonary disease, unspecified ARARITA CROWE [place] [facility] [place] [facility] Apr 11, 2024 01:05 PM SECONDARY Contact with and exposure to other hazardous substances ARARITA CROWE [place] [facility] [place] [facility] Apr 11, 2024 01:05 PM SECONDARY Encounter for immunization OLAMIDE CAR [place] [facility] [place] [facility] Apr 11, 2024 01:05 PM SECONDARY Gastro-esophageal reflux disease without esophagitis ARARITA CROWE [place] [facility] [place] [facility] Apr 11, 2024 01:05 PM SECONDARY Other seasonal allergic rhinitis ARARITA CROWE [place] [facility] [place] [facility] Apr 11, 2024 01:05 PM SECONDARY Sleep apnea, unspecified ARA,RITA TRAYLOR [place] [facility] [place] [facility] Plan of Treatment: Future Appointments (+ 6 months) and Future Tests (+/- 45 days) The Plan of Treatment section includes future care activities for the patient from all [place] treatmentfacilities. This section includes future appointments and future orders which are active, pending or scheduled. Future Appointments This section includes appointments that were scheduled to occur 6 months from the date of the Encounter, up to a maximum of 20 appointments. The data comes from all [place] treatment facilities. Appointment Date/Time Appointment Type Appointme nt Facility Name Apr 29, 2024 01:00 PM AM[place] [facility] [place] [facility] May 19, 2024 02:00 PM AMBULATORY - MEDICINE [facility] May 20, 2024 09:00 AM AMBULATORY - REHAB MEDICIN E [facility] Jun 30, 2024 12:50 PM AMBULATORY - MEDICINE [facility] Vital Signs: All taken on the encounter date This section contains inpatient and outpatient Vital Signs collected on the date of the Encounter. Date/Time Temperature Pulse Blood Pressure Respiratory Rate SP02 Pain Height Weight Body Mass Index Source Apr 11, 2024 09:48 AM 97.5 68 125/80 16 94 1 208.2 34 [facility] Immunizations: All administered on the encounter date This section contains immunizations associated to the Encounter. Immunization Series Date Issued Administered By Site Reaction Lot Number CVX Code Drug Car Repairer Comment(s) Source INFLUENZA, HIGH-DOSE, TRIVALENT, PF Apr 11, 2024 OLAMIDE CAR RIGHT DELTO ID [id number] [employer] PASTEUR ADMINISTERE D AT [facility] RSV, BIVALENT, PROTEIN SUBUNIT RSVPREF, DILUENT RECONSTITUTED , 0.5 ML, PF Apr 11, 2024 OLAMIDE CAR LEFT DELTO ID [id number] [employer] ADMINISTERE D AT [place], Sterile water diluent Lot #- [id number] - 11/2024 [facility] Social History: Smoking Status (Most current) and Tobacco Use (All prior to encounter date) This section includes the most current, and the historical, smoking and tobacco- related health factors from the [place] facility where the Encounter took place. Current Smoking Status This section includes the most current smoking, or tobacco-related health factor, from the [place] facility where the Encounter took place. Date/Time Current Smoking Status Comment Adria ity Apr 11, 2024 09:30 AM VA-TOBACCO FORMER USER [facility] Tobacco Use History This section includes a history of the smoking, or tobacco-related health factors, that were collected on or before the date of the Encounter. The data comes from the [place] facility where the Encounter took place. Date/Time Smoking Status/Tobacco Use Comment F acility Apr 11, 2024 09:30 AM VA-TOBACCO QUIT 5 TO < 15 YRS [facility] [place] [facility] Apr 09, 2023 09:00 AM VA-TOBACCO FORMER USER [facility] [place] [facility] Apr 09, 2023 09:00 AM VA-TOBACCO QUIT 5 TO < 15 YRS [facility] [place] [facility] Apr 13, 2022 09:30 AM VA-TOBACCO FORMER USER [facility] [place] [facility] Apr 13, 2022 09:30 AM VA-TOBACCO QUIT 5 TO < 15 YRS [facility] [place] [facility] Apr 12, 2021 11:30 AM VA-TOBACCO FORMER USER [facility] [place] [facility] Apr 12, 2021 11:30 AM VA-TOBACCO QUIT 5 TO < 15 YRS [facility] [place] [facility] Mar 19, 2020 09:00 AM VA-TOBACCO FORMER USER [facility] [place] [facility] Mar 19, 2020 09:00 AM VA-TOBACCO QUIT 5 TO < 15 YRS [facility] [place] [facility] December 12, 2018 10:18 AM VA-TOBACCO FORMER USER [facility] [place] [facility] December 12, 2018 10:18 AM VA-TOBACCO QUIT 5 TO < 15 YRS [facility] [place] [facility] Jan 21, 2018 07:50 AM QUIT TOBACCO USE > 7 YEARS AGO [facility] [place] [facility] Dec 25, 2016 10:59 AM QUIT TOBACCO USE > 7 YEARS AGO [place] [facility] [place] [facility] Advance Directives: All historical and current Section Date Range: From patient's date of to the date document was created. This section includes ALL of a patient's completed or amended VA Advance and Rescinded Directives. The entries below indicate that a directive exists for the patient, but an actual copy is not included with this document. The data comes from all [place] facilities. Date Advance Directives Provider Source May 23, 2015 ADVANCE DIRECTIVE AMBER PENA [facility] [place] [facility] Encounter Notes: All associated encounter notes [...] for pulmonary appt with Dr Christie in [place] on 05/20 I will placed CC consult also asking for nebulizer machine for exacerbations I will order he very much appreciated call and Lastly he is looking for handicap placard and will send me the RMV form. /kristen/ KOJO LOREDO Nurse Practitioner Signed: 04/17/2024 08:32 RITA ROSALES [place] [facility] [place] [facility] Apr 11, 2024 10:28 AM PRIMARY [...] significant allergy to amoxicillin with hospitalization in [place] due to jaundice reaction. PMH: Active problems [...] of multiple providers DR Corrie BLANTON ( [facility]) - visit 12/11/18 [place] - SEE PARTNERSHIP MANAGER WHEN IN [place] ( JUN THRU NOVEMBER ) NON [place] D[place] - [place] urologist ( [place] ( [facility]- DR Del Valle / [place] - DR Rangel 9. Sleep apnea PER [...] GOODRICH PHYSI EULOGIO EXAM GENERAL: well appearing in mild respiratory distress, speaking in clear [...] previously prescribed Eliquis, patient follows with community short filler bunch machine operator. 3) Sleep apnea Patient continues to use [...] antihistamines for allergic symptoms and eczema. Sees seed cleaning machine operator who recommends Dupixent injections planned for Apr [...] in 6 months, RTC sooner if needed. gave permission to allow a student present for this exam/Encounter. I was present for the TANBARK PEELER student's history taking and examination. 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 Printed information was offered and provided if desired. [place]/caregiver has no health or medical concerns related to their concern of environmental exposure. No questions at this time /caregiver was informed of local points of contact. Contact information for local resources: Benefits/Claim for Disability Compensation Questions:National VBA [place] Healthcare Enrollment: [facility] Eligibility direct dialed at [phone] Registry: [facility] Coordinator ext [phone] The following connections were provided to the [place]/caregiver: No connections needed at this time Medication Reconciliation: Outpatient: Has the patient been taking medications as documented in the EMLR? YES: The patient has been taking medications as documented in the EMLR. Essential Medication List for Review used to complete this medication reconciliation. INCLUDED IN THIS LIST: Alphabetical list of active outpatient prescriptions dispensed from this [place] (local) and dispensed from another VA or [...] for EILEEN LAM RN NURSE PRACTITIONER STUDENT /es/ KOJO LOREDO Nurse Practitioner Cosigned: 04/11/2024 12:55 RTIA ROSALES [place] [facility] [place] [facility] Apr 11, 2024 09:38 AM PREVENTIVE MEDICINE NURSING NOTE: LOCAL TITLE: CLINICAL REMINDERS/NURSING STANDARD TITLE: PREVENTIVE MEDICINE NURSING NOTE DATE OF NOTE: APR 11, 2024@09:38 ENTRY DATE: APR 11, 2024@09:39:03 AUTHOR: OLAMIDE CAR COSIGNER: URGENCY: STATUS: COMPLETED Advance Directive Screen MH AD: Patient has an Advance Directive on file at this [facility]. No updates are needed at this time. The patient received education about Advance Directives and written notification of his/her rights. Suicide Screen: C-SSRS Screening [place] Suicide Severity Rating Scale (C-SSRS) screener 1. [...] Not worried about housing near future The reports the following: Within the past 12 [...] PF Date Administered: Apr 11, 2024 09:30 Car Repairer: SANOFI PASTEUR Lot: [id number] Exp Date: Jan 12, 2025 [facility]: [phone] Admin Route/Site: INTRAMUSCULAR/RIGHT DELTOID Dosage: 0.5mL Vaccine Information Statement(s): INFLUENZA(FLU) VACC(INACTIVATED OR RECOMBINANT)VIS Feb 18, 2021 (INDONESIAN) Order By: Policy Administered By: Olamide Car [...] full rights to use it throughout the [place] system. PRIMARY SCREEN RESULT: The Primary Screen [...] PF Date Administered: Apr 11, 2024 09:30 Car Repairer: [employer] Lot: [id number] Exp Date: Oct 13, 2024 [facility]: [id number] Admin Route/Site: INTRAMUSCULAR/LEFT DELTOID Dosage: 0.5mL Vaccine Information Statement(s): RSV (RESPIRATORY SYNCYTIAL VIRUS) VACCINE VIS May 03, 2023 (INDONESIAN) Order By: Rita Rosales Administered By: Olamide Car Comment: Sterile water diluent Lot #- [id number] 11/2024 Vaccine Information Sheet (VIS) was given to the patient/caregiver, education regarding adverse reactions was discussed, as well as barriers to learning, if any, were acknowledged. /kristen/ OLAMIDE CAR MSN, RN, CNL PRIMARY CARE TEAM NURSE Signed: 04/11/2024 10:19 [facility] [place] [facility]
--- OUTSIDE RECORDS SUMMARY | 2024-11-18 12:19 | XMS_ITS | Continuity of Care Document ---
Author Name [facility] Organization [facility] Care Team Providers Care Hotel Desk Clerk Name Role Phone [facility] Unavailable Unavailable Problems Combined list of problems [...] HCS Exposure to potentially hazardous substance (SCT [id number]) Active Condition Oct 18 4 Entered By: LIUDMILA SUBRAMANIAN Comment: Entered automatically through [facility] Problem List documentation program [facility] Exposure to potentially hazardous substance (SCT [id number]) Active Condition Apr 15 4 Entered By: [...] EMMANUEL JI Comment: DR Corrie BLANTON ( [facility]) - visit 12/11/18Ju2017 Entered By: EMMANUEL JI Comment: [place] - SEE BACK END ENGINEER WHEN IN [place] ( JUN THRU NOVEMBER )Apr 30, 2018 Entered By: EMMANUEL JI Comment: NON [facility] DERMATOLOGY -December 12, 2018 Entered By: EMMANUEL JI Comment: NON [facility] urologist ( [place] ( [facility]- DR Del Valle / Lenin COHEN [...] H90.3 Sensorineural hearing loss, bilateral Active Diagnosis [facility] Diagnosis: ICD-10-CM 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 [facility] Medications Combined list of outpatient medications from [...] G RESPIR ATORY (INHAL ATION) ACTIVE 04/18/2025 [id number] PERCY BULLOCK 2023 60 [facility] APIXABAN 5MG TAB TAKE ONE TABLET BY MOUTH EVERY 12 HOURS ORAL ACTIVE RA DARREN RODRIGUEZ 2021 [facility] APIXABAN 5MG TAB TAKE ONE TABLET BY MOUTH EVERY 12 HOURS ORAL ACTIVE AZARBSharyn RAZO 2023 [facility] ASPIRIN 81MG TAB,EC TAKE ONE TABLET BY MOUTH TWICE DAILY ORAL complet Mike Martinez 2018 [facility] CETIRIZINE HCL 10MG TAB TAKE ONE-HALF TABLET BY MOUTH EVERY DAY ORAL ACTIVE AZARBALSharyn 2023 [facility] DOCETAXEL INJ,CONC INJECT INTRAVEN OUSLY INTRAV ENOUS ACTIVE AZARBALJ KOTA 2023 [facility] DOCUSATE NA 250MG CAP TAKE 1 CAPSULE BY MOUTH EVERY DAY ORAL ACTIVE AZARBALSharyn 2023 [facility] FLUTICASONE 250MCG/SALM ETEROL 50MCG INHL,ORAL,D ISKUS,60 INHALE 1 PUFF BY MOUTH EVERY DAY ORAL ACTIVE AZARBALSharyn 2023 [facility] GEMCITABINE HCL INJ INJ INJECT 200 MG INTRAVEN OUSLY INTRAV ENOUS ACTIVE AZARBALSharyn 2023 [facility] IPRATROPIUM BR 0.03% SOLN,SPRAY, NASAL 1 SPRAY INTO EACH NOSTRIL EVERY DAY NASAL ACTIVE AZAADANSharyn GUERRA2023 [facility] METOPROLOL SUCCINATE 100MG TAB,SA TAKE ONE-HALF TABLET BY MOUTH TWICE A DAY ORAL ACTIVE AZAADANSharyn GUERRA2023 [facility] METOPROLOL TARTRATE 50MG TAB TAKE ONE TABLET BY MOUTH TWICE DAILY ORAL ACTIVE PETROFF,S 2018 [facility] OMEPRAZOLE 20MG CAP,EC TAKE 1 CAPSULE BY MOUTH EVERY DAY ORAL ACTIVE AZARBALSharyn GUERRA2023 [facility] OMEPRAZOLE 20MG CAP,EC TAKE 1 CAPSULE BY MOUTH EVERY MORNING 30 MINUTES BEFORE BREAKFAS T ORAL ACTIVE PETROFF,S 2018 [facility] POLYETHYLEN E GLYCOL 3350 PWDR,ORAL TAKE 17 GM (ONE CAPFUL) BY MOUTH EVERY DAY ORAL ACTIVE MARGARETSharyn GUERRA2023 [facility] PREDNISONE 20MG TAB TAKE TWO TABLETS BY MOUTH ONCE DAILY COPD FLARE ORAL 05/11/2024 [id number] PERCY BULLOCK 2023 10 [facility] SIMVASTATIN 80MG TAB TAKE ONE-HALF TABLET BY MOUTH AT BEDTIME ORAL ACTIVE PETROFF,S 2018 [facility] SIMVASTATIN 80MG TAB TAKE ONE-HALF TABLET BY MOUTH AT BEDTIME ORAL ACTIVE CLAUDIAPEDRITODANNISharyn GUERRA2023 [facility] TIOTROPIUM 18MCG CAP,INHL,30 INSERT 1 CAPSULE INTO AEROLIZE R AND INHALE BY MOUTH EVERY DAY RESPIR ATORY (INHAL ATION) ACTIVE MARGARETSharyn 2023 [facility] Allergies, Adverse Reactions, Alerts Combined list of allergies from Department of Defense and Veterans Affairs facilities. It does not include entries that were removed or entered in error. Substance Category Reaction Severity Reaction type Status Date Reported Comments Source AMOXICILLIN Propensity to adverse reactions to drug (finding) Jaundice SEVERE active 4 [facility] CODEINE Propensity to adverse reactions to drug (finding) Nausea and vomiting active 4 [facility] MULTAQ Propensity to adverse reactions to drug (finding) Eruption active 2 [facility] Immunizations Combined list of available immunizations from the Department of Defense and Veterans Affairs facilities. Immunization Series Date Given Administered By Site Reaction Lot Number CVX Code Drug Shaving Machine Operator Status Comments Source INFLUENZA, HIGH-DOSE, TRIVALENT, PF 2023 ALEC BENTLEY RIGHT DELTO ID [id number] 135 complet ed [place], [facility] RSV, BIVALENT, PROTEIN SUBUNIT RSVPREF, DILUENT RECONSTITUTED , 0.5 ML, PF 2023 ALEC BENTLEY LEFT DELTO ID [id number] 305 complet ed [place] [place], Sterile water diluent Lot #- [id number] 11/2024 [facility] RSV, RECOMBINANT, PROTEIN SUBUNIT RSVPREF, ADJUVANT RECONSTITUTED , 0.5 ML, PF 2022 303 complet ed HISTORICA L INFORMATI ON - FROM OTHER REGISTRY, [facility] INFLUENZA, HIGH-DOSE, QUADRIVALENT 2022 ALEC BENTLEY LEFT DELTO ID [id number] 197 complet ed Completed Series, ADMINISTE RED AT [facility] INFLUENZA, UNSPECIFIED FORMULATION 2022 88 complet ed HISTORICA L INFORMATI ON - FROM PATIENT'S WRITTEN RECORD, [facility] COVID-19 (PFIZER), MRNA, LNP-S, PF, 30 MCG/0.3 ML DOSE 2020 208 complet ed Booster for Series, [facility] INFLUENZA, UNSPECIFIED FORMULATION 2020 88 complet ed [facility] COVID-19 (PFIZER), MRNA, LNP-S, PF, 30 MCG/0.3 ML DOSE 2 2020 208 complet ed [facility] COVID-19 ([employer]), MRNA, LNP-S, PF, 30 MCG/0.3 ML DOSE 1 2020 208 complet ed [place] ZOSTER RECOMBINANT 1 2018 187 complet ed HISTORICA L INFORMATI ON - FROM OTHER REGISTRY, [facility] ZOSTER RECOMBINANT 1 2018 187 complet ed HISTORICA L INFORMATI ON - FROM OTHER REGISTRY, [facility] INFLUENZA, TRIVALENT, ADJUVANTED 2018 168 complet ed Site: Left Deltoid [facility] INFLUENZA, SEASONAL, INJECTABLE 2017 141 complet ed Site: Left Deltoid [facility] INFLUENZA, SEASONAL, INJECTABLE 2016 141 complet ed [facility] [place] [facility] PNEUMOCOCCAL CONJUGATE PCV 13 2015 133 complet ed [facility] [place] [facility] [facility] PNEUMOCOCCAL POLYSACCHARID E PPV23 2014 33 complet ed [facility] TDAP 2014 115 complet ed [facility] [place] [facility] Vital Signs Combined list of inpatient and outpatient Vital Signs from Department of Defense and Veterans Affairs, ranging from 12 months to all on record, depending upon the facility. Vital Sign Value Date Comments Source SYSTOLIC BLOOD PRESSURE 125 04/11/20 24 09:48:39 [facility] DIASTOLIC BLOOD PRESSURE 80 024 09:48:39 [facility] [place] [facility] PULSE OXIMETRY 94 04/11/2024 09:48:39 [facility] [facility] WEIGHT 208.2 04/11/2024 09:48:39 [facility] [place] [facility] BMI 34 kg/m2 04/11/2024 09:48:39 [facility] [place] [facility] PAIN 1 04/11/2024 09:48:39 [facility] [place] [facility] TEMPERATURE 97.5 04/11/2024 09:48:39 [facility] [place] [facility] PULSE 68 04/11/2024 09:48:39 [facility] [place] [facility] RESPIRATION 16 04/11/2024 09:48:39 [facility] Encounters Combined list of: 1) Encounters from Department of Veterans Affairs facilities going backup to the last 18 months, not all VA inpatient encounters are included; 2) Encounters from the Department of Defense facilities going backup to 280 months. Location Location Details Encounter Type Encounter Number Reason For Visit Attending Provider ADM Date DC Date Status Disposition Source [facility] Outpatient Encounter [id number] 06/05 [facility] Outpatient Encounter [id number] 09/19 [facility] Outpatient Encounter [id number] 09/23 [facility] OFFICE O/P [place] 60 MIN [id number] Diagnos is: ICD-10- CM D09.0 Carcino ma in situ of bladder LYNNETTE ROBLES 09/23 [facility] TARGETED CASE MANAGEMENT [id number] KARELY ARANA 09/25 [facility] [place] [facility] HEARING AID FITTING/CH ECKING [id number] Diagnos is: ICD-10- CM Z46.1 Encount er for fitting and adjustm ent of hearing aid Tiesha HERR 12/19 [place] [facility] [place] [facility] [facility] Outpatient Encounter [id number] 02/07 [facility] Outpatient Encounter [id number] 02/07 [facility] [place] [facility] HEARING AID REPAIR/MOD IFYING [id number] Diagnos is: ICD-10- CM H90.3 Sensori neural hearing loss, bilater ILANA Morse 03/10 [place] [facility] [place] [facility] [place] [facility] OFFICE O/P EST MOD 30 MIN [id number] Diagnos is: ICD-10- CM I48.91 Unspeci fied atrial fibrill ation Corrie BULLOCK 04/11 [facility] HEARING SERVICE [id number] Diagnos is: ICD-10- CM Z46.1 Encount er for fitting and adjustm ent of hearing aid ILANA PITTS L 04/11 [facility] Out[facility] Encounter [id number] 04/12 [facility] SPECIAL SUPPLIES PHYS/QHP [id number] Diagnos is: ICD-10- CM J44.9 Chronic obstruc tive pulmona ry disease , unspeci fied ST AMLINDSAYHOLLIE E P 04/17 [facility] Outpatient Encounter [id number] 04/18 [facility] [place] [facility] Outpatient Encounter [id number] 04/18 [facility] Outpatient Encounter [id number] 04/21 [facility] [place] [facility] Outpatient Encounter [id number] 04/22 [facility] HEARING AID CHECK BOTH EARS [id number] Diagnos is: ICD-10- CM Z46.1 Encount er for fitting and adjustm ent of hearing aid CHUY ORTIZ 04/29 [facility] Out[facility] Encounter [id number] 05/16 [facility] Outpatient Encounter [id number] 05/19 [facility] HEARING AID FITTING/CH ECKING [id number] Diagnos is: ICD-10- CM Z46.1 Encount er for fitting and adjustm ent of hearing aid ILANA PITTS 05/20 [facility] Out[facility] Encounter [id number] 06/24 [facility] Out[facility] Encounter [id number] 06/30 [facility] Outpatient Encounter [id number] 07/28 [facility] [place] Social History Combined list of available smoking, tobacco, and other social history from Department of Defense and Veterans Affairs facilities. Social History Type Response Date Comment Sour e Tobacco smoking status [facility] VA-TOBACCO FORMER USER 04/11/2024 [facility] History of tobacco use VA-TOBACCO QUIT 5 TO < 15 YRS 04/11/2024 [facility] History of tobacco use VA-TOBACCO FORMER USER 09/24/2023 [facility] History of tobacco use VA-TOBACCO FORMER USER 04/09/2023 [facility] History of tobacco use VA-TOBACCO FORMER USER 04/13/2022 [facility] History of tobacco use VA-TOBACCO FORMER USER 04/12/2021 [facility] History of tobacco use VA-TOBACCO QUIT 5 TO < 15 YRS 03/19/2020 [facility] History of tobacco use [place]ACCO FORMER USER 12/12/2018 [facility] History of tobacco use QUIT TOBACCO USE > 7 YEARS AGO 01/21/2018 [facility] History of tobacco use QUIT TOBACCO USE > 7 YEARS AGO 12/25/2016 [facility] Plan of Care List of future care activities from [facility]. Additional future care activities may be listed in the Assessment and Plan section. Date/Time Care Activity Care Activity Detail Facili ty 01/13/2025 AMBULATORY - MEDICINE AMBULATORY - MEDICI NE [facility] Advance Directives List of completed, amended, or rescinded Advance Directives on record at [facility] facilities. An actual copy of the Directive is not included. Date Advance Directive Provider Source 05/23/2015 ADVANCE DIRECTIVE AMBER PENA [facility]
--- OUTSIDE RECORDS SUMMARY | 2024-11-18 12:19 | XMS_ITS | Encounter Summary ---
Author Name [facility] [facility] [place] Address [address] [place] [address] Care Team Providers Care Hog Man Name Role Phone MAGDALENA GO Primary Care [...] PART A Dec 14, 2012 PART A [id number] GENEVIEVE ARNOLD JR PATIENT MEDICARE (WNR) MEDICARE (M) PART B Dec 14, 2012 PART B [id number] GENEVIEVE ARNOLD PATIENT MEDICARE PART D (WNR) PRESCRIPT ION PART D Dec 14, 2012 PART D [id number] GENEVIEVE ARNOLD PATIENT [facility] (WNR) MEDICARE ADVANTAGE [facility](W NR) Jul 16, 2022 [id number] GENEVIEVE ARNOLD PATIENT [facility] (WNR) MEDICARE ADVANTAGE [facility] (WNR) Jul 16, 2017 [id number] GENEVIEVE ARNOLD PATIENT Selected Encounter This section includes the information on record at [place] for the Encounter. Date/Time Encounter Type Encounter Description Reason Provider Source Apr 29, 2024 01:00 PM HEARING AID CHECK BOTH EARS AUDIOLOGY ICD-10-CM Z46.1 Encounter for fitting and adjustment of hearing aid ANAIS ORTIZ Amaya Encounter Template Text not used by [place] Assessments - Encounter Diagnoses This section includes the primary and secondary diagnoses documented for the Encounter. Date/Time Primary/Secondary Diagnosis Diagnosis Name Provider Source Apr 29, 2024 01:13 PM PRIMARY Encounter for fitting and adjustment of hearing aid RENETTA DOBBS JORGE [facility] Apr 29, 2024 01:13 PM SECONDARY Sensorineural hearing loss, bilateral RENETTA DOBBS JORGE [facility] Plan of Treatment: Future Appointments (+ 6 months) and Future Tests (+/- 45 days) The Plan of Treatment section includes future care activities for the [facility] [place] [facility] This section includes future appointments and [...] 19, 2024 02:00 PM AMBULATORY - MEDICINE [facility] May 20, 2024 09:00 AM AMBULATORY - REHAB MEDICIN E [facility] Jun 30, 2024 12:50 PM AMBULATORY - MEDICINE [facility] Social History: Smoking Status (Most current) and [...] 11, 2024 09:30 AM VA-TOBACCO FORMER USER [facility] Tobacco Use History This section includes a history of the smoking, or tobacco-related health factors, that were collected on or before the date of the Encounter. The data comes from the [place] facility where the Encounter took place. Date/Time Smoking Status/Tobacco Use Comment F acility Apr 11, 2024 09:30 AM VA-TOBACCO QUIT 5 TO < 15 YRS [facility] [place] [facility] Apr 09, 2023 09:00 AM VA-TOBACCO FORMER USER [facility] [place] [facility] Apr 09, 2023 09:00 AM VA-TOBACCO QUIT 5 TO < 15 YRS [facility] [place] [facility] Apr 13, 2022 09:30 AM VA-TOBACCO FORMER USER [facility] [place] [facility] Apr 13, 2022 09:30 AM VA-TOBACCO QUIT 5 TO < 15 YRS [facility] [place] [facility] Apr 12, 2021 11:30 AM VA-TOBACCO FORMER USER [facility] [place] [facility] Apr 12, 2021 11:30 AM VA-TOBACCO QUIT 5 TO < 15 YRS [place] [facility] [place] [facility] Mar 19, 2020 09:00 AM VA-TOBACCO FORMER USER [place] [facility] [place] [facility] Mar 19, 2020 09:00 AM VA-TOBACCO QUIT 5 TO < 15 YRS [place] [facility] [place] [facility] December 12, 2018 10:18 AM VA-TOBACCO FORMER USER [place] [facility] [place] [facility] December 12, 2018 10:18 AM VA-TOBACCO QUIT 5 TO < 15 YRS [place] [facility] [place] [facility] Jan 21, 2018 07:50 AM QUIT TOBACCO USE > 7 YEARS AGO [place] [facility] [place] [facility] Dec 25, 2016 10:59 AM QUIT TOBACCO USE > 7 YEARS AGO [place] [facility] [place] [facility] Advance Directives: All historical and current Section [...] 23, 2015 ADVANCE DIRECTIVE AMBER PENA [facility] Encounter Notes: All associated encounter notes This section contains the clinical notes associated to the Encounter. Date/Time Encounter Note(s) Provider Source Apr 29, 2024 07:47 AM AUDIOLOGY NOTE: LOCAL TITLE: AUDIOLOGY HEALTH REGISTERED NURSE SURGICAL SERVICES STANDARD TITLE: AUDIOLOGY NOTE DATE OF NOTE: APR 29, 2024@07:47 ENTRY DATE: APR 29, 2024@07:47:18 AUTHOR: CHANA DOBBS COSIGNER: ANAIS ORTIZ URGENCY: STATUS: COMPLETED AUDIOLOGY HEALTH REGISTERED NURSE SURGICAL SERVICES Has ADDENDA April 29, 2024 History/Background: was seen for a hearing aid follow up, unaccompanied. The [facility] presented today reporting the wire for his [...] microshell earmolds will be sent to the public safety officer to have the receivers replaced with a size 3 100 gain lacing operator and to make a larger vent. Plan: Upon receipt of the hearing aids/earmolds, [facility] can be contacted to schedule a 30 min HAC with an Junior Project Coordinator. /kristen/ CHANA DOBBS Audiology Health Technician Automatic Signed: 04/29/2024 14:08 /kristen/ ANAIS Rodriguez [employer] CHIEF, AUDIOLOGY/PROJECT SUPERINTENDENT Cosigned: 04/29/2024 14:12 05/07/2024 ADDENDUM STATUS: COMPLETED L&R hearing aids and earmolds received and certified. Per [employer] customer service a larger vent was able to be made on the right aid, the left did not have enough room at the tip of the canal. Also, replacement devices with new serial numbers were given and the customer service voice was unsure why. New serial numbers: [id number]. Left a voicemail for the to contact the clinic. Need to schedule 30 min HAC with an Junior Project Coordinator. /kristen/ CHANA DOBBS Audiology Health Technician Automatic Signed: 05/07/2024 14:39 /kristen/ ANAIS Rodriguez, CCC-A CHIEF, AUDIOLOGY/PROJECT SUPERINTENDENT Cosigned: 05/07/2024 14:55 05/19/2024 ADDENDUM STATUS: COMPLETED Appointment scheduled on 05/20/2024. Hearing aids placed in [facility] cabinet. /kristen/ CHANA DOBBS Audiology Health Technician Automatic Signed: 05/19/2024 08:07 /kristen/ ZACK NEIL, CCC-A STAFF AUTO GARAGE ATTENDANT Cosigned: 05/19/2024 08:28 CHANA DOBBS [facility]
--- OUTSIDE RECORDS SUMMARY | 2024-11-18 12:19 | XMS_ITS ---
Author Organization [facility] Address [address] [place] [address] Care Team Providers Care Credit Card Interviewer Name Role Phone Po Any CUI Primary Care Provider Unavailfaith e Darrian Khan Unavailable [phone] XUAN FAULKNER Unavailable Unavailab le Allergies Allergen [...] 05/16/2024 Encounters Encounter Location Date Provider Diagnosis [facility] [address] [place] [address] 05/16/2024 Darrian Khan Hx of adenomatous colonic [...] and all other drugs in that class nursing home, including Augmentin. I don't think he needs [...] and all other drugs in that class nursing home, including Augmentin. I don't think he needs [...] and all other drugs in that class terminal press operator, including Augmentin. I don't think he [...] Provider Name:Darrian Khan , 11/20/2024 09:40:00 AM, [address] [place] [address], [address], [place], [address], Progress Notes * VOLODYMYR ARNOLD JrDOB: (74 yo M)Acc No.[id number]:05/16/2024 Progress Notes Patient:?ARNOLDVOLODYMYR BOWMAN Amaya Provider:?Darrian Khan MD :[id number]???Age:74 Y???Sex:Male Reece e:05/16/2024 [address]:[facility] [address] [id number] Pcp:Any Jackson MD Subjective: * Chief Complaints: [...] cell Knee replacement-partial--- left 08/2019Right big toe [id number]-Lh. Mazzucco 2020 * Hospitalization/Major Diagno stic Procedure:?No [...] and all other drugs in that class nursing home, including Augmentin. I don't think he needs [...] * Treatment: * Procedure Codes:?1036F TOBAC CO [id number] BP SCR NOT PRFRM REC REASON NOS [...] Khan MD Date:? 024 Generated for Enrique bullock/Vito/Salsmitting on:?11/18/2024 12:19 PM EDT History and Physical Notes * HPI (History [...]
--- OUTSIDE RECORDS SUMMARY | 2024-11-18 12:19 | XMS_ITS | Encounter Summary ---
Author Name [facility] [place] [facility] [place] [facility] [place] [facility] [place] Address [address] [place] [address] Care Team Providers Care Flanger Name Role Phone MAGDALENA GO Primary Care [...] PART A Dec 14, 2012 PART A [id number] GENEVIEVE ARNOLD JR PATIENT MEDICARE (WNR) MEDICARE (M) PART B Dec 14, 2012 PART B [id number] GENEVIEVE ARNOLD PATIENT MEDICARE PART D (WNR) PRESCRIPT ION PART D Dec 14, 2012 PART D [id number] GENEVIEVE ARNOLD PATIENT [facility] (WNR) MEDICARE ADVANTAGE [facility](W NR) Jul 16, 2022 [id number] GENEVIEVE ARNOLD PATIENT [facility] (WNR) MEDICARE ADVANTAGE [facility] (WNR) Jul 16, 2017 [id number] GENEVIEVE ARNOLD PATIENT Selected Encounter This section includes the information on record at [place] for the Encounter. Date/Time Encounter Type Encounter Description Reason Provider Source Apr 11, 2024 11:00 AM HEARING SERVICE AUDIOLOGY ICD-10-CM Z46.1 Encounter for fitting and adjustment of hearing aid DORIS PITTS Corrie Amaya Encounter Template Text not used by [place] Assessments - Encounter Diagnoses This section includes the primary and secondary diagnoses documented for the Encounter. Date/Time Primary/Secondary Diagnosis Diagnosis Name Provider Source Apr 11, 2024 11:34 AM PRIMARY Encounter for fitting and adjustment of hearing aid JASMEETSREEDHARROYER [place] [facility] Apr 11, 2024 11:34 AM SECONDARY Sensorineural hearing loss, bilateral ROYER PITTS [place] [facility] [place] [facility] Plan of Treatment: Future Appointments (+ 6 months) and Future Tests (+/- 45 days) The Plan of Treatment section includes future care activities for the patient from all [place] [facility]. This section includes future appointments and future orders which are active, pending or scheduled. Future Appointments This section includes appointments that were scheduled to occur 6 months from the date of the Encounter, up to a maximum of 20 appointments. The data comes from all [place] treatment facilities. Appointment Date/Time Appointment Type Appointme nt Facility Name Apr 29, 2024 01:00 PM AMBULATORY - [place] [facility] [place] [facility] May 19, 2024 02:00 PM AMBULATORY - MEDICINE [facility] [place] [facility] May 20, 2024 09:00 AM AMBULATORY - [place] [facility] [place] [facility] Jun 30, 2024 12:50 PM AMBULATORY - MEDICINE [facility] [place] [facility] Vital Signs: All taken on the encounter date This section contains inpatient and outpatient Vital Signs collected on the date of the Encounter. Date/Time Temperature Pulse Blood Pressure Respiratory Rate SP02 Pain Height Weight Body Mass Index Source Apr 11, 2024 09:48 AM 97.5 68 125/80 16 94 1 208.2 [facility] Social History: Smoking Status (Most current) and Tobacco Use (All prior to encounter date) This section includes the most current, and the historical, smoking and tobacco- related health factors from the [place] facility where the Encounter took place. Current Smoking Status This section includes the most current smoking, or tobacco-related health factor, from the [place] facility where the Encounter took place. Date/Time Current Smoking Status Comment Adria ity Apr 11, 2024 09:30 AM VA-TOBACCO FORMER USER [place] [facility] [place] [facility] Tobacco Use History This section includes a history of the smoking, or tobacco-related health factors, that were collected on or before the date of the Encounter. The data comes from the [place] facility where the Encounter took place. Date/Time Smoking Status/Tobacco Use Comment F acsridhar Apr 11, 2024 09:30 AM VA-TOBACCO QUIT 5 TO < 15 YRS [facility] [place] [facility] Apr 09, 2023 09:00 AM VA-TOBACCO FORMER USER [facility] [place] [facility] Apr 09, 2023 09:00 AM VA-TOBACCO QUIT 5 TO < 15 YRS [facility] [place] [facility] Apr 13, 2022 09:30 AM VA-TOBACCO FORMER USER [facility] [place] [facility] Apr 13, 2022 09:30 AM VA-TOBACCO QUIT 5 TO < 15 YRS [facility] [place] [facility] Apr 12, 2021 11:30 AM VA-TOBACCO FORMER USER [facility] [place] [facility] Apr 12, 2021 11:30 AM VA-TOBACCO QUIT 5 TO < 15 YRS [facility] [place] [facility] Mar 19, 2020 09:00 AM VA-TOBACCO FORMER USER [facility] [place] [facility] Mar 19, 2020 09:00 AM VA-TOBACCO QUIT 5 TO < 15 YRS [facility] [place] [facility] December 12, 2018 10:18 AM VA-TOBACCO FORMER USER [facility] [place] [facility] December 12, 2018 10:18 AM VA-TOBACCO QUIT 5 TO < 15 YRS [facility] [place] [facility] Jan 21, 2018 07:50 AM QUIT TOBACCO USE > 7 YEARS AGO [facility] [place] [facility] Dec 25, 2016 10:59 AM QUIT TOBACCO USE > 7 YEARS AGO [facility] [place] [facility] Advance Directives: All historical and current Section Date Range: From patient's date of to the date document was created. This section includes ALL of a patient's completed or amended [place] Advance and Rescinded Directives. The entries below indicate that a directive exists for the patient, but an actual copy is not included with this document. The data comes from all [place] facilities. Date Advance Directives Provider Source May 23, 2015 ADVANCE DIRECTIVE AMBER PENA [facility] Encounter Notes: All associated encounter notes This section contains the clinical notes associated to the Encounter. Date/Time Encounter Note(s) Provider Source Apr 11, 2024 11:29 AM AUDIOLOGY E & M NOTE: LOCAL TITLE: AUDIOLOGY CLINIC STANDARD TITLE: AUDIOLOGY E & M NOTE DATE OF NOTE: APR 11, 2024@11:29 ENTRY DATE: APR 11, 2024@11:29:42 AUTHOR: DORIS PITTS EXP COSIGNER: URGENCY: STATUS: COMPLETED AUDIOLOGY CLINIC Has ADDENDA Diagnosis: Sensorineural hearing loss, bilateral Hearing Aid Fitting: SUBJECTIVE (S): The was seen for hearing aid fitting and issuance. S/He had previously been evaluated and found to exhibit significant hearing loss for which amplification was recommended. How does the patient/client best learn? Verbal/Visual instruction Does the patient/client have any cultural and yarsani beliefs, emotional barriers, physical or cognitive limitations, and communication barriers which may impact his/her ability to learn? No Desire and motivation to learn? Good OBJECTIVE (O): Physical fit of earmolds/receivers and domes/hearing aids was good. Hayward verified comfort. Verification of an appropriate acoustic response was obtained using Real Ear measurements (speech mapping) and NAL-NL1 targets. The reported good subjective benefit as well. Feedback network architect manager was run. Hearing aids were found [...] Earmold Information: Canal lock microshell, clear, acrylic Bucket Pusher size/power: Length 2 100 gain receivers Program [...] items reviewed. Time Spent= 30 min. The Hayward was informed of and signed/agreed to [place] policy on hearing aid issuance: Users are responsible for the maintenance and security of their devices. Determination of need to replace a hearing aid is made by the [place] qc chemist. Hearing aids will not be replaced in [...] to: P Response to Education: FERNANDO ROMERO, JESSE Fishman Patient P Family F Significant Other SO Verbalizes Understanding VU Returns Demonstration RD Performs Independently PI Lacks Comprehension LC Refused Education RE Not Applicable NA /kristen/ Tomás Strange, CCC-A Special Services Supervisor Signed: 04/11/2024 11:34 06/05/2024 ADDENDUM STATUS: COMPLETED returned IOI-GOODRICH Outcome Measure to the clinic via mail with an overall score of 26 Based on this score: i. No follow-up call is indicated _XX_ ii. Follow-up call is indicated and fitting clinician will be notified __ /es/ CHANA DOBBS Audiology Health Application Development Consultant Signed: 06/05/2024 11:33 [facility]
--- OUTSIDE RECORDS SUMMARY | 2024-11-18 12:19 | XMS_ITS ---
Author Organization [facility] Address [address] [place] [address] Care Team Providers Care Clinical Marketing Manager Name Role Phone Any Jackson MD Primary Care Provider Darrian Galvez [phone] XUAN FAULKNER Unavailable Unavailab le REASON FOR VISIT QUESTIONS Encounters Encounter Location Date Provider Diagnosis [facility] [address] [place] [address] [address] [place] [address] 03/13/2024 Darrian Khan Elevated liver function tests R94.5 Assessments Encounter Date Diagnosis (ICD Code) Assessment Notes Treatment Notes Treatment Clinical Notes Section Notes 03/13/2024 Elevated liver function tests (ICD-10 - R94.5) Plan Of Treatment Pending Test Test Name Order Date LIVER PROFILE 03/13/2024 Next Appt Details Provider Name:Darrian Khan , 11/20/2024 09:40:00 AM, [address] [place] [address], [address], [place], [address], Progress Notes * GENEVIEVE ARNOLD JrDOB: (74 yo M)Acc No.[id number]:03/13/2024 Patient:?GENEVIEVE ARNOLD :1950???Age:74 Y???Sex:Male Address:[facility] [address] [address] Subjective: * Chief Complaints: * ???QUESTIONS * Medical History:? * Surgical History:? * Hospitalization/Major Diagno stic Procedure:? * Medications:? Objective: Assessment: * Assessment: 1.?Elevated liver function t ests - R94.5? Plan: * Treatment: * Procedure Codes:? * true * Date:? Generated for Enrique bullock/Vito/Sindi on:?11/18/2024 12:18 PM EDT
--- OUTSIDE RECORDS SUMMARY | 2024-11-18 12:20 | XMS_ITS | Patient Health Record ---
Author Organization [facility] Address [address] [place] [address] Care Team Providers Care Sales Outfitter Name Role Phone Po Any CUI Primary Care Provider Unavailfaith e Darrian Khan Unavailable [phone] XUAN SHEARER Unavailable Unavailab le Allergies Allergen (clinical drug ingredient) Drug/Non Drug Allergy documented on EMR Reaction Allergy Type Onset Date Status doxycycline Doxycycline jaundice Drug Allergy Act eva amoxicillin Amoxicillin jaundice Drug Allergy Act eva Results Component Value Reference Range Notes Ammonia Reviewed date:02/29/2024 07:55:27 PM Interpretation: Performing Lab:[facility], [address] [place] [phone] Notes/Report: Ammonia 28 13-55 umol/L Complete Blood Count no Diff Reviewed date:02/22/2024 05:51:08 PM Interpretation: Performing Lab:[facility], [address] [place] [phone] Notes/Report: White Blood Count 5.7 4.8-10.8 X10*3/uL [...] INR Reviewed date:02/22/2024 05:55:38 PM Interpretation: Performing Lab:[facility], [address] [place] [phone] Notes/Report: Prothrombin Time 12.9 11.1-13.3 SEC INTERNATIONAL [...] Panel Reviewed date:02/22/2024 06:05:52 PM Interpretation: Performing Lab:[facility], [address] [place] [phone] Notes/Report: Bilirubin Total 4.7 0.0-1.0 mg/dL Bilirubin Direct 3.4 0.0-0.5 mg/dL Aspartate Amino Transferase 52 5-37 U/L Alanine Aminotransferase 77 0-40 U/L Total Protein 7.7 6.5-8.0 g/dL Albumin Level 4.0 3.5-5.0 g/dL Alkaline Phosphatase 141 39-117 U/L IRON PROFILE Reviewed date:02/22/2024 05:55:56 PM Interpretation: Performing Lab:[facility], [address] [place] [phone] Notes/Report: Iron 127 45-160 mcg/dL Total Iron Binding Capacity 291 228-428 mcg/d L Percent Iron Saturation 44 15-50 % Unsaturated Iron Binding 164 Ferritin Reviewed date:02/22/2024 05:56:05 PM Interpretation: Performing Lab:[facility], [address] [place] [phone] Notes/Report: Ferritin 366 20-250 ng/mL SANDY Reflex Titer and Pattern Reviewed date:02/25/2024 10:47:25 PM Interpretation: Performing Lab:[facility], [address] [place] [phone] Notes/Report: Anti Nuclear Antibody Screen NEGATIVE NEGATIVE [...] Negative International Consensus on SANDY Patterns (https://doi.org/10.1515/c scs-5260-6976) For additional information, please refer to http://education.Meditech/faq/CTI144 (This link is being provided for informational/ educational purposes only.) THIS TEST WAS PERFORMED AT: [facility] [address] [place] [phone] AMILCAR ZABALA MD Anti Nuclear Antibody Titer TNP Anti Nuclear Antibody Pattern TNP SANDY Titer 2 TNP SANDY Pattern 2 TNP SANDY Titer 3 TNP SANDY Pattern 3 TNP Mitochondrial Antibody Reviewed date:03/03/2024 11:29:34 PM Interpretation: Performing Lab:[facility], [address] [place] [phone] Notes/Report: Mitochondrial Antibodies NEGATIVE NEGATIVE The specimen was negative for cytoplasmic antibodies, however additional staining was observed suggesting the presence of Antinuclear Antibodies. Consider requesting order code 249, SANDY Screen, IFA with Reflex to Titer and Pattern, or order code [id number], SANDY Screen, IFA w/reflex Titer/Pattern, and Reflex to Multiplex 11 Ab [place], if clinically indicated. THIS TEST WAS PERFORMED AT: [facility] [address] [place] [phone] AMILCAR ZABALA MD Mitochondrial Ab Titer TNP Smooth Muscle Antibody Reviewed date:03/03/2024 11:29:41 PM Interpretation: Performing Lab:[facility], [address] [place] [phone] Notes/Report: Smooth Muscle Antibody <20 <20 U [...] type 1. THIS TEST WAS PERFORMED AT: [facility]/[address] [address] ANGEL VIDAL MD,PHD Hepatitis A,B,C Profile Reviewed date:02/22/2024 05:56:33 PM Interpretation: Performing Lab:[address] [phone] Notes/Report: Hepatitis A Antibody IgM Nonreactive Nonreactive [...] ff Reviewed date:02/29/2024 07:54:38 PM Interpretation: Performing Lab:[address] [phone] Notes/Report: White Blood Count 6.5 4.8-10.8 X10*3/uL [...] Time Reviewed date:02/29/2024 07:54:46 PM Interpretation: Performing Lab:[address] [address] Notes/Report: Partial Thromboplastin Time 39.0 26.0-36.8 SEC For information regarding the monitoring of direct thrombin inhibitors, please refer to Pharmacy. Liver Panel Reviewed date:03/02/2024 11:08:18 PM Interpretation: Performing Lab:[address] [phone] Notes/Report: Bilirubin Total 2.5 0.0-1.0 mg/dL Bilirubin Direct 1.6 0.0-0.5 mg/dL Aspartate Amino Transferase 58 5-37 U/L Alanine Aminotransferase 87 0-40 U/L Total Protein 7.4 6.5-8.0 g/dL Albumin Level 3.8 3.5-5.0 g/dL Alkaline Phosphatase 111 39-117 U/L Basic Metabolic Panel Reviewed date:02/29/2024 07:55:19 PM Interpretation: Performing Lab:[address] [address] Notes/Report: Sodium 140 135-145 mmol/L Potassium 4.6 3.3-5.1 mmol/L Chloride 104 96-108 mmol/L Carbon Dioxide 30 22-29 mmol/L Anion Gap 11 12-20 Blood Urea Nitrogen 15 9-16 mg/dL Creatinine 0.96 0.5-1.4 mg/dL Estimated Glomerular Filt Rate > 60 NOTE: For -Mozamb[place] individuals, multiply the result by 1.210. Chronic Kidney Disease: Estimated GFR < 60 mL/min/1.73m2 Severe Kidney Disease: Estimated GFR < 15 mL/min/1.73m2 Glucose Random 98 60-115 mg/dL Calcium 10.1 8.4-10.2 mg/dL Liver Panel Reviewed date:03/12/2024 07:33:03 AM Interpretation: Performing Lab:[facility], [address] [place] [phone] Notes/Report: Bilirubin Total 1.3 0.0-1.0 mg/dL Bilirubin Direct 0.8 0.0-0.5 mg/dL Aspartate Amino Transferase 37 5-37 U/L Alanine Aminotransferase 71 0-40 U/L Total Protein 7.7 6.5-8.0 g/dL Albumin Level 4.1 3.5-5.0 g/dL Alkaline Phosphatase 90 39-117 U/L Blood Urea Nitrogen Reviewed date:03/10/2024 11:20:43 PM Interpretation: Performing Lab:[facility], [address] [place] [phone] Notes/Report: Blood Urea Nitrogen 15 9-16 mg/dL Creatinine Reviewed date:03/10/2024 11:20:50 PM Interpretation: Performing Lab:[facility], [address] [place] [phone] Notes/Report: Creatinine 0.86 0.5-1.4 mg/dL Estimated Glomerular Filt Rate > 60 NOTE: For -[place]ozamb[place] individuals, multiply the result by 1.210. Chronic Kidney Disease: Estimated GFR < 60 mL/min/1.73m2 Severe Kidney Disease: Estimated GFR < 15 mL/min/1.73m2 Liver Panel Reviewed date:03/31/2024 08:49:38 AM Interpretation: Performing Lab:[facility], [address] [place] [phone] Notes/Report: Bilirubin Total 1.1 0.0-1.0 mg/dL Bilirubin [...] Problem Status W/U Status Risk Notes Problem 368975739 Encounter for screening for malignant neoplasm of colon (Z12.11) Active confirmed Problem 410197423 Elevated LFTs (R79.89) Active confirmed Problem [id number] Preprocedural examination (Z01.818) Active confirmed Problem 54202853 Iron excess (E83.19) Active confirmed Problem Jaundice (08089947) Jaundice (R17) Active confirmed Problem 626900284 Hx of adenomatous colonic polyps (Z86.010) Active confirmed Problem Pruritus (789203636) Pruritus (L29.9) Active confirmed Problem Elevated liver enzymes level (001844829) Elevated liver function tests (R94.5) Active confirmed Vital Signs Blood pressure diastolic 00 mm Hg 05/16/2024 Height 66 in 05/16/2024 Blood pressure systolic 00 mm Hg 05/16/2024 Weight 205 lbs 05/16/2024 BMI 33.08 kg/m2 05/16/2024 Encounters Encounter Location Date Provider Diagnosis [facility] [address] [place] [address] 02/26/2024 Darrian Khan Jaundice R17 and Pruritus L29.9 [facility] [address] [place] [address] 05/16/2024 Darrian Khan Hx of adenomatous colonic polyps Z86.010 ; Jaundice R17 and Encounter for screening for malignant neoplasm of colon Z12.11 Test [place] [address] 02/19/2024 Darrian Khan Elevated LFTs R79.89 [facility] [address] [place] [address] 03/02/2024 Darrian Khan Elevated liver function tests R94.5 [facility] [address] [place] [address] 03/13/2024 Darrian Khan Elevated liver function tests R94.5 Assessments Encounter Date Diagnosis (ICD Code) Assessment Notes Treatment Notes Treatment Clinical Notes Section Notes 02/26/2024 Jaundice (ICD-10 - R17) Overall, Voloydmyr appears well at the present time. We [...] just about 3 weeks ago while in [place]. I shall check followup laboratories at the [...] the year prior to his leaving for [place] for the winter. I did advise him [...] just about 3 weeks ago while in [place]. I shall check followup laboratories at the [...] the year prior to his leaving for [place] for the winter. I did advise him [...] and all other drugs in that class detention, including Augmentin. I don't think he needs [...] and all other drugs in that class detention, including Augmentin. I don't think he needs [...] and all other drugs in that class exterminator helper, including Augmentin. I don't think he [...] Test Name Order Date CHEM 7 PROFILE 06/14/2022 CHEM 7 PROFILE 02/26/2024 CHEM 7 PROFILE 06/16/2022 LIVER PROFILE 06/29/2022 LIVER PROFILE 03/02/2024 LIVER [...] RATE (ESR) 06/16/2022 PROTHROMBIN TIME (PT, INR) 06/21/2022 PROTHROMBIN TIME (PT, INR) 02/19/2024 PROTHROMBIN TIME (PT, INR) 06/16/2022 PROTHROMBIN TIME (PT, INR) 02/26/2024 HEPATITIS A,B,C PROFILE 02/19/2024 HEPATITIS A,B,C PROFILE 06/16/2022 [id number] (A1A) 06/16/2022 MITOCHONDRIAL AB 02/19/2024 SMOOTH MUSCLE ANTIBODIES 02/19/2024 MRI ABD W&WO CONTRAST 06/16/2022 FLUOR. ANTINUCLEAR AB SCREEN ([facility]) 12/2023 FLUOR. ANTINUCLEAR AB SCREEN ([facility]) 08/2021 Prothrombin Time INR 06/29/2022 Ferritin 08/11/2022 Ferritin 08/11/2022 Future Test Test Name Order Date COLONOSCOPY 01/27/2014 COLONOSCOPY 11/20/2019 Next Appt Details Provider Name:Darrian Allen Khan , 11/20/2024 09:40:00 AM, [address] [place] [address], [address], [place], [address], Insurance Providers Payer Name Payer Address Payer Phone Subscriber Number Group Number Insured Name Patient Relationship to Insured Coverage Start Date Coverage End Date [facility] [address] [address] [place] [address] [phone] [id number] VOLODYMYR ARNOLD Self - patient is the insured Medical (General) History Medical History History ICD Code Hyperlipidemia Colonoscopy 10-12-2008--1 tub ular adenoma removed; colonoscopy 03/2014 with 2 small tubular adenomas EGD [place] [address] Walter-- negative except for mild reflux-there was no Hough's esophagus nor significant esophagitis Irregular heartbeat--Atrial fibrillation/PVC's--Dr. Shearer. Had an ablation in 04/[address] Kem Lindsay [place],DM,CVA,Lung disease,renal dise ase Bladder cancer 06/2013--has periodic [...] Knee replacement-partial--- left 08/2019 Right big toe EVU-rrchhukpv-Ri. Mazzucco 2020
== END 2024-11-18 11:39 | disposition home or self-care (01) ==
PROVIDERS: PCP Internal Medicine; Visit Provider Urology
DX: C67.9 Malignant neoplasm of bladder, unspecified (principal); Z13.9 Encounter for screening, unspecified
CPT/HCPCS: 52000; 99213

== ENCOUNTER 2024-11-18 10:41 | Outpatient (REF) | payer OTHER, SELFPAY ==
--- OUTSIDE RECORDS SUMMARY | 2024-11-18 12:59 | XMS_ITS | Continuity of Care Document ---
Author Name [facility] Organization [facility] Care Team Providers Care Electrical Wirer Name Role Phone [facility] Unavailable Unavailable Problems Combined list of problems [...] HCS Exposure to potentially hazardous substance (SCT [id number]) Active Condition Oct 18 4 Entered By: LIUDMILA SUBRAMANIAN Comment: Entered automatically through [facility] Problem List documentation program [facility] Exposure to potentially hazardous substance (SCT [id number]) Active Condition Apr 15 4 Entered By: [...] Condition Jan 21, 2018 Entered By: EMMANUEL IJ Comment: PER VISIT 01/21/18 - ANNUAL VISIT (CWM/NO/PACT 8 )December 12, 2018 Entered By: EMMANUEL JI Comment: CPAP auto PAP mode 5-15 cm - h20 humidified - air lifetime ( DR BLANTON) - non [facility] script [facility] Under care of multiple providers Active Condition December 12 019 Entered By: EMMANUEL JI Comment: DR Corrie BLANTON ( [facility]) - visit 12/11/18Ju2017 Entered By: EMMANUEL JI Comment: [place] - SEE CASH MANAGEMENT COORDINATOR WHEN IN [place] ( JUN THRU NOVEMBER )Apr 30, 2018 Entered By: MEMANUEL JI Comment: NON VA DERMATOLOGY -December 12, 2018 Entered By: EMMANUEL JI Comment: NON [place] urologist ( [place] ( [facility]- DR Del Valle / Lenin COHEN [...] H90.3 Sensorineural hearing loss, bilateral Active Diagnosis [facility] Diagnosis: ICD-10-CM 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 [facility] Medications Combined list of outpatient medications [...] G RESPIR ATORY (INHAL ATION) ACTIVE 04/18/2025 [id number] PERCY BULLOCK 2023 60 [facility] APIXABAN 5MG TAB TAKE ONE TABLET BY MOUTH EVERY 12 HOURS ORAL ACTIVE RA DARREN RODRIGUEZ 2021 [facility] APIXABAN 5MG TAB TAKE ONE TABLET BY MOUTH EVERY 12 HOURS ORAL ACTIVE AZARBSharyn RAZO 2023 [facility] ASPIRIN 81MG TAB,EC TAKE ONE TABLET BY MOUTH TWICE DAILY ORAL complet Mike Martinez 2018 [facility] CETIRIZINE HCL 10MG TAB TAKE ONE-HALF TABLET BY MOUTH EVERY DAY ORAL ACTIVE AZARBALSharyn 2023 [facility] DOCETAXEL INJ,CONC INJECT INTRAVEN OUSLY INTRAV ENOUS ACTIVE AZARBALJ KOTA 2023 [facility] DOCUSATE NA 250MG CAP TAKE 1 CAPSULE BY MOUTH EVERY DAY ORAL ACTIVE AZARBALSharyn 2023 [facility] FLUTICASONE 250MCG/SALM ETEROL 50MCG INHL,ORAL,D ISKUS,60 INHALE 1 PUFF BY MOUTH EVERY DAY ORAL ACTIVE AZARBALSharyn 2023 [facility] GEMCITABINE HCL INJ INJ INJECT 200 MG INTRAVEN OUSLY INTRAV ENOUS ACTIVE AZARBALSharyn 2023 [facility] IPRATROPIUM BR 0.03% SOLN,SPRAY, NASAL 1 SPRAY INTO EACH NOSTRIL EVERY DAY NASAL ACTIVE AZAADANSharyn GUERRA2023 [facility] METOPROLOL SUCCINATE 100MG TAB,SA TAKE ONE-HALF TABLET BY MOUTH TWICE A DAY ORAL ACTIVE AZAADANSharyn GUERRA2023 [facility] METOPROLOL TARTRATE 50MG TAB TAKE ONE TABLET BY MOUTH TWICE DAILY ORAL ACTIVE PETROFF,S 2018 [facility] OMEPRAZOLE 20MG CAP,EC TAKE 1 CAPSULE BY MOUTH EVERY DAY ORAL ACTIVE AZARBALSharyn GUERRA2023 [facility] OMEPRAZOLE 20MG CAP,EC TAKE 1 CAPSULE BY MOUTH EVERY MORNING 30 MINUTES BEFORE BREAKFAS T ORAL ACTIVE PETROFF,S 2018 [facility] POLYETHYLEN E GLYCOL 3350 PWDR,ORAL TAKE 17 GM (ONE CAPFUL) BY MOUTH EVERY DAY ORAL ACTIVE MARGARETSharyn GUERRA2023 [facility] PREDNISONE 20MG TAB TAKE TWO TABLETS BY MOUTH ONCE DAILY COPD FLARE ORAL 05/11/2024 [id number] PERCY BULLOCK 2023 10 [facility] SIMVASTATIN 80MG TAB TAKE ONE-HALF TABLET BY MOUTH AT BEDTIME ORAL ACTIVE PETROFF,S 2018 [facility] SIMVASTATIN 80MG TAB TAKE ONE-HALF TABLET BY MOUTH AT BEDTIME ORAL ACTIVE CLAUDIAPEDRITODANNISharyn GUERRA2023 [facility] TIOTROPIUM 18MCG CAP,INHL,30 INSERT 1 CAPSULE INTO AEROLIZE R AND INHALE BY MOUTH EVERY DAY RESPIR ATORY (INHAL ATION) ACTIVE MARGARETSharyn 2023 [facility] Allergies, Adverse Reactions, Alerts Combined list of allergies from Department of Defense and Veterans Affairs facilities. It does not include entries that were removed or entered in error. Substance Category Reaction Severity Reaction type Status Date Reported Comments Source AMOXICILLIN Propensity to adverse reactions to drug (finding) Jaundice SEVERE active 4 [facility] CODEINE Propensity to adverse reactions to drug (finding) Nausea and vomiting active 4 [facility] MULTAQ Propensity to adverse reactions to drug (finding) Eruption active 2 [facility] Immunizations Combined list of available immunizations from the Department of Defense and Veterans Affairs facilities. Immunization Series Date Given Administered By Site Reaction Lot Number CVX Code Drug Mill Tender Second Operator Status Comments Source INFLUENZA, HIGH-DOSE, TRIVALENT, PF 2023 ALEC BENTLEY RIGHT DELTO ID [id number] 135 complet ed ADMINISTE RED AT PA, [facility] RSV, BIVALENT, PROTEIN SUBUNIT RSVPREF, DILUENT RECONSTITUTED , 0.5 ML, PF 2023 ALEC BENTLEY LEFT DELTO ID [id number] 305 complet ed ADMINISTE RED AT PA, Sterile water diluent Lot #- [id number] 11/2024 [facility] RSV, RECOMBINANT, PROTEIN SUBUNIT RSVPREF, ADJUVANT RECONSTITUTED , 0.5 ML, PF 2022 303 complet ed HISTORICA L INFORMATI ON - FROM OTHER REGISTRY, [facility] INFLUENZA, HIGH-DOSE, QUADRIVALENT 2022 ALEC BENTLEY LEFT DELTO ID [id number] 197 complet ed Completed Series, ADMINISTE RED AT [facility] INFLUENZA, UNSPECIFIED FORMULATION 2022 88 complet ed HISTORICA L INFORMATI ON - FROM PATIENT'S WRITTEN RECORD, [facility] COVID-19 (PFIZER), MRNA, LNP-S, PF, 30 MCG/0.3 ML DOSE 2020 208 complet ed Booster for Series, [facility] INFLUENZA, UNSPECIFIED FORMULATION 2020 88 complet ed [facility] COVID-19 (PFIZER), MRNA, LNP-S, PF, 30 MCG/0.3 ML DOSE 2 2020 208 complet ed [facility] COVID-19 ([employer]), MRNA, LNP-S, PF, 30 MCG/0.3 ML DOSE 1 2020 208 complet ed [place] ZOSTER RECOMBINANT 1 2018 187 complet ed HISTORICA L INFORMATI ON - FROM OTHER REGISTRY, [facility] ZOSTER RECOMBINANT 1 2018 187 complet ed HISTORICA L INFORMATI ON - FROM OTHER REGISTRY, [facility] INFLUENZA, TRIVALENT, ADJUVANTED 2018 168 complet ed Site: Left Deltoid [facility] INFLUENZA, SEASONAL, INJECTABLE 2017 141 complet ed Site: Left Deltoid [facility] INFLUENZA, SEASONAL, INJECTABLE 2016 141 complet ed [facility] PNEUMOCOCCAL CONJUGATE PCV 13 2015 133 complet ed [facility] PNEUMOCOCCAL POLYSACCHARID E PPV23 2014 33 complet ed [facility] TDAP 2014 115 complet ed [facility] Vital Signs Combined list of inpatient and outpatient Vital Signs from Department of Defense and Veterans Affairs, ranging from 12 months to all on record, depending upon the facility. Vital Sign Value Date Comments Source SYSTOLIC BLOOD PRESSURE 125 04/11/20 24 09:48:39 [facility] DIASTOLIC BLOOD PRESSURE 80 024 09:48:39 [facility] PULSE OXIMETRY 94 04/11/2024 09:48:39 [facility] WEIGHT 208.2 04/11/2024 09:48:39 [facility] BMI 34 kg/m2 04/11/2024 09:48:39 [facility] PAIN 1 04/11/2024 09:48:39 [facility] TEMPERATURE 97.5 04/11/2024 09:48:39 [facility] PULSE 68 04/11/2024 09:48:39 [facility] RESPIRATION 16 04/11/2024 09:48:39 [facility] [...] ADM Date DC Date Status Disposition Source [facility] Outpatient Encounter [id number] 06/05 [facility] Outpatient Encounter [id number] 09/19 [facility] Outpatient Encounter [id number] 09/23 [facility] OFFICE O/P [place] 60 MIN [id number] Diagnos is: ICD-10- CM D09.0 Carcino ma in situ of bladder LYNNETTE ROBLES 09/23 [facility] TARGETED CASE MANAGEMENT [id number] KARELY ARANA 09/25 [facility] HEARING AID FITTING/CH ECKING [id number] Diagnos is: ICD-10- CM Z46.1 Encount er for fitting and adjustm ent of hearing aid Tiesha HERR 12/19 [facility] Outpatient Encounter [id number] 02/07 [facility] Out[facility] Encounter [id number] 02/07 [facility] [place] [facility] HEARING AID REPAIR/MOD IFYING [id number] Diagnos is: ICD-10- CM H90.3 Sensori neural hearing loss, bilater ILANA Morse 03/10 [facility] [place] OFFICE O/P EST MOD 30 MIN [id number] Diagnos is: ICD-10- CM I48.91 Unspeci fied atrial fibrill ation Corrie BULLOCK 04/11 [facility] HEARING SERVICE [id number] Diagnos is: ICD-10- CM Z46.1 Encount er for fitting and adjustm ent of hearing aid ILANA PITTS L 04/11 [facility] Out[facility] Encounter [id number] 04/12 [facility] SPECIAL SUPPLIES PHYS/QHP [id number] Diagnos is: ICD-10- CM J44.9 Chronic obstruc tive pulmona ry disease , unspeci fied ST AMLINDSAYHOLLIE E P 04/17 [facility] Outpatient Encounter [id number] 04/18 [facility] Outpatient Encounter [id number] 04/18 [facility] Outpatient Encounter [id number] 04/21 [facility] Outpatient Encounter [id number] 04/22 [facility] HEARING AID CHECK BOTH EARS [id number] Diagnos is: ICD-10- CM Z46.1 Encount er for fitting and adjustm ent of hearing aid CHUY ORTIZ 04/29 [facility] Out[facility] Encounter [id number] 05/16 [facility] Out[facility] Encounter [id number] 05/19 [facility] HEARING AID FITTING/CH ECKING [id number] Diagnos is: ICD-10- CM Z46.1 Encount er for fitting and adjustm ent of hearing aid ILANA PITTS 05/20 [facility] Out[facility] Encounter [id number] 06/24 [facility] Out[facility] Encounter [id number] 06/30 [facility] Out[facility] Encounter [id number] 07/28 [facility] Social History Combined list of available smoking, tobacco, and other social history from Department of Defense and Veterans Affairs facilities. Social History Type Response Date Comment Sour e Tobacco smoking status [facility] VA-TOBACCO FORMER USER 04/11/2024 [facility] History of tobacco use VA-TOBACCO QUIT 5 TO < 15 YRS 04/11/2024 [facility] History of tobacco use VA-TOBACCO FORMER USER 09/24/2023 [facility] History of tobacco use VA-TOBACCO FORMER USER 04/09/2023 [facility] History of tobacco use VA-TOBACCO FORMER USER 04/13/2022 [facility] History of tobacco use VA-TOBACCO FORMER USER 04/12/2021 [facility] History of tobacco use VA-TOBACCO QUIT 5 TO < 15 YRS 03/19/2020 [facility] History of tobacco use PA-TOBACCO FORMER USER 12/12/2018 [facility] History of tobacco use QUIT TOBACCO USE > 7 YEARS AGO 01/21/2018 [facility] History of tobacco use QUIT TOBACCO USE > 7 YEARS AGO 12/25/2016 [facility] Plan of Care List of future care activities from [facility] facilities. Additional future care activities may be listed in the Assessment and Plan section. Date/Time Care Activity Care Activity Detail Facili ty 01/13/2025 AMBULATORY - MEDICINE AMBULATORY - MEDICI NE [facility] Advance Directives List of completed, amended, or rescinded Advance Directives on record at [facility] facilities. An actual copy of the Directive is not included. Date Advance Directive Provider Source 05/23/2015 ADVANCE DIRECTIVE AMBER PENA [facility]
[2024-11-18 16:53] LABS: Urine Cytology See Pathology rpt
== END 2024-11-18 10:42 | disposition home or self-care (01) ==
LOC: HO.LAB 10:41
PROVIDERS: PCP Internal Medicine; Visit Provider Urology
DX: C67.9 Malignant neoplasm of bladder, unspecified (principal)
CPT/HCPCS: 52000; 81003; 88112; 99212

== ENCOUNTER 2024-11-28 06:48 | Outpatient (REF) | payer MEDICARE, SELFPAY ==
--- OUTSIDE RECORDS SUMMARY | 2024-11-28 06:50 | XMS_ITS | Patient Health Record ---
Author Organization [facility] Address [address] [place] [address] Care Team Providers Care Vegetable Grader Name Role Phone yanet ly Primary Care Provider Unavailabl e Allergies Allergen (clinical drug ingredient) Drug/Non Drug Allergy documented on EMR Reaction Allergy Type Onset Date Status dronedarone Multaq rash Drug Allergy Activ e Reason For Referral No Information Medications Medication SIG (Take, Route, Frequency, Duration) Notes Start Date End Date Status Ipratropium Dry Branch 0.03 % 2 sprays in e ach [...] Problem Status W/U Status Risk Notes Problem [id number] Hallux rigidus o f right foot (M20.21) Active confirmed Problem [id number] Anticoagulant long-term use (Z79.01) Active confirmed Plan [...] Date Coverage End Date [employer] Medicare [id number] [address] [address] [place] [phone] [id number] Volodymyr Richards Self - patient is the [...] X 2 (Pfizer) and 3 franco ters (e-SENS) COPD Jaundice X 1 month E. Coli [...]
--- OUTSIDE RECORDS SUMMARY | 2024-11-28 06:50 | XMS_ITS ---
Author Organization [facility] Address [address] [place] [address] Care Team Providers Care Household Personal Assistant Name Role Phone Any Jackson MD Primary Care Provider Darrian Galvez [phone] REASON FOR VISIT QUESTIONS Encounters Encounter Location Date Provider Diagnosis [facility] [address] [place] [phone] 03/13/2024 Darrian Khan Elevated liver function tests R94.5 Assessments Encounter Date Diagnosis (ICD Code) Assessment Notes Treatment Notes Treatment Clinical Notes Section Notes 03/13/2024 Elevated liver function tests (ICD-10 - R94.5) Plan Of Treatment Pending Test Test Name Order Date LIVER PROFILE 03/13/2024 Next Appt Details Provider Name:Darrian Khan , 01/26/2025 02:30:00 PM, [address] [place] [address] , [place], [place], [phone], Progress Notes * GENEVIEVE ARNOLD JrDOB: (74 yo M)Acc No.[id number]:03/13/2024 Patient:?GENEVIEVE ARNOLD :1950???Age:74 Y???Sex:Male Address:[facility] [address] [address] Subjective: * Chief Complaints: * ???QUESTIONS * Medical History:? * Surgical History:? * Hospitalization/Major Diagno stic Procedure:? * Medications:? Objective: Assessment: * Assessment: 1.?Elevated liver function t ests - R94.5? Plan: * Treatment: * Procedure Codes:? * true * Date:? Generated for Enrique bullock/Vito/Sindi on:?11/28/2024 06:50 AM EDT
--- OUTSIDE RECORDS SUMMARY | 2024-11-28 06:50 | XMS_ITS | Continuity of Care Document ---
Author Name [facility] Organization [facility] Care Team Providers Care Electrical Equipment Assembler Name Role Phone [facility] Unavailable Unavailable Problems Combined list of problems [...] HCS Exposure to potentially hazardous substance (SCT [id number]) Active Condition Oct 18 4 Entered By: LIUDMILA SUBRAMANIAN Comment: Entered automatically through [facility] Problem List documentation program [facility] Exposure to potentially hazardous substance (SCT [id number]) Active Condition Apr 15 4 Entered By: [...] EMMANUEL JI Comment: DR Corrie BLANTON ( [facility]) - visit 12/11/18Ju2017 Entered By: EMMANUEL JI Comment: [place] - SEE POISER BALANCE WHEN IN [place] ( JUN THRU NOVEMBER )Apr 30, 2018 Entered By: EMMANUEL JI Comment: [facility] -December 12, 2018 Entered By: EMMANUEL JI Comment: [facility] ( [place] ( [facility]- DR Del Valle / Lenin COHEN [...] H90.3 Sensorineural hearing loss, bilateral Active Diagnosis [facility] Diagnosis: ICD-10-CM 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 [facility] Medications Combined list of outpatient medications [...] G RESPIR ATORY (INHAL ATION) ACTIVE 04/18/2025 [id number] PERCY BULLOCK 2023 60 [facility] APIXABAN 5MG TAB TAKE ONE TABLET BY MOUTH EVERY 12 HOURS ORAL ACTIVE RA DARREN RODRIGUEZ 2021 [facility] APIXABAN 5MG TAB TAKE ONE TABLET BY MOUTH EVERY 12 HOURS ORAL ACTIVE AZARBSharyn RAZO 2023 [facility] ASPIRIN 81MG TAB,EC TAKE ONE TABLET BY MOUTH TWICE DAILY ORAL complet Mike Martinez 2018 [facility] CETIRIZINE HCL 10MG TAB TAKE ONE-HALF TABLET BY MOUTH EVERY DAY ORAL ACTIVE AZARBALSharyn 2023 [facility] DOCETAXEL INJ,CONC INJECT INTRAVEN OUSLY INTRAV ENOUS ACTIVE AZARBALJ KOTA 2023 [facility] DOCUSATE NA 250MG CAP TAKE 1 CAPSULE BY MOUTH EVERY DAY ORAL ACTIVE AZARBALSharyn 2023 [facility] FLUTICASONE 250MCG/SALM ETEROL 50MCG INHL,ORAL,D ISKUS,60 INHALE 1 PUFF BY MOUTH EVERY DAY ORAL ACTIVE AZARBALSharyn 2023 [facility] GEMCITABINE HCL INJ INJ INJECT 200 MG INTRAVEN OUSLY INTRAV ENOUS ACTIVE AZARBALSharyn 2023 [facility] IPRATROPIUM BR 0.03% SOLN,SPRAY, NASAL 1 SPRAY INTO EACH NOSTRIL EVERY DAY NASAL ACTIVE AZAADANSharyn GUERRA2023 [facility] METOPROLOL SUCCINATE 100MG TAB,SA TAKE ONE-HALF TABLET BY MOUTH TWICE A DAY ORAL ACTIVE AZAADANSharyn GUERRA2023 [facility] METOPROLOL TARTRATE 50MG TAB TAKE ONE TABLET BY MOUTH TWICE DAILY ORAL ACTIVE PETROFF,S 2018 [facility] OMEPRAZOLE 20MG CAP,EC TAKE 1 CAPSULE BY MOUTH EVERY DAY ORAL ACTIVE AZARBALSharyn GUERRA2023 [facility] OMEPRAZOLE 20MG CAP,EC TAKE 1 CAPSULE BY MOUTH EVERY MORNING 30 MINUTES BEFORE BREAKFAS T ORAL ACTIVE PETROFF,S 2018 [facility] POLYETHYLEN E GLYCOL 3350 PWDR,ORAL TAKE 17 GM (ONE CAPFUL) BY MOUTH EVERY DAY ORAL ACTIVE MARGARETSharyn GUERRA2023 [facility] PREDNISONE 20MG TAB TAKE TWO TABLETS BY MOUTH ONCE DAILY COPD FLARE ORAL 05/11/2024 [id number] PERCY BULLOCK 2023 10 [facility] SIMVASTATIN 80MG TAB TAKE ONE-HALF TABLET BY MOUTH AT BEDTIME ORAL ACTIVE PETROFF,S 2018 [facility] SIMVASTATIN 80MG TAB TAKE ONE-HALF TABLET BY MOUTH AT BEDTIME ORAL ACTIVE CLAUDIAPEDRITODANNISharyn GUERRA2023 [facility] TIOTROPIUM 18MCG CAP,INHL,30 INSERT 1 CAPSULE INTO AEROLIZE R AND INHALE BY MOUTH EVERY DAY RESPIR ATORY (INHAL ATION) ACTIVE MARGARETSharyn 2023 [facility] Allergies, Adverse Reactions, Alerts Combined list of allergies from Department of Defense and Veterans Affairs facilities. It does not include entries that were removed or entered in error. Substance Category Reaction Severity Reaction type Status Date Reported Comments Source AMOXICILLIN Propensity to adverse reactions to drug (finding) Jaundice SEVERE active 4 [facility] CODEINE Propensity to adverse reactions to drug (finding) Nausea and vomiting active 4 [facility] MULTAQ Propensity to adverse reactions to drug (finding) Eruption active 2 [facility] Immunizations Combined list of available immunizations from the Department of Defense and Veterans Affairs facilities. Immunization Series Date Given Administered By Site Reaction Lot Number CVX Code Drug Community Advocate Status Comments Source INFLUENZA, HIGH-DOSE, TRIVALENT, PF 2023 [facility] RIGHT DELTO ID [id number] 135 complet ed ADMINISTE RED AT PA, [facility] RSV, BIVALENT, PROTEIN SUBUNIT RSVPREF, DILUENT RECONSTITUTED , 0.5 ML, PF 2023 ALEC BENTLEY LEFT DELTO ID [id number] 305 complet ed ADMINISTE RED AT [place], Sterile water diluent Lot #- [id number] 11/2024 [facility] RSV, RECOMBINANT, PROTEIN SUBUNIT RSVPREF, ADJUVANT RECONSTITUTED , 0.5 ML, PF 2022 303 complet ed HISTORICA L INFORMATI ON - FROM OTHER REGISTRY, [facility] INFLUENZA, HIGH-DOSE, QUADRIVALENT 2022 ALE[facility] BENTLEY LEFT DELTO ID [id number] 197 complet ed Completed Series, ADMINISTE RED AT [facility] INFLUENZA, UNSPECIFIED FORMULATION 2022 88 complet ed HISTORICA L INFORMATI ON - FROM PATIENT'S WRITTEN RECORD, [facility] COVID-19 (PFIZER), MRNA, LNP-S, PF, 30 MCG/0.3 ML DOSE 2020 208 complet ed Booster for Series, [facility] INFLUENZA, UNSPECIFIED FORMULATION 2020 88 complet ed [facility] COVID-19 (PFIZER), MRNA, LNP-S, PF, 30 MCG/0.3 ML DOSE 2 2020 208 complet ed [facility] COVID-19 ([employer]), MRNA, LNP-S, PF, 30 MCG/0.3 ML DOSE 1 2020 208 complet ed [place] ZOSTER RECOMBINANT 1 2018 187 complet ed HISTORICA L INFORMATI ON - FROM OTHER REGISTRY, [facility] ZOSTER RECOMBINANT 1 2018 187 complet ed HISTORICA L INFORMATI ON - FROM OTHER REGISTRY, [facility] INFLUENZA, TRIVALENT, ADJUVANTED 2018 168 complet ed Site: Left Deltoid [facility] INFLUENZA, SEASONAL, INJECTABLE 2017 141 complet ed Site: Left Deltoid [facility] INFLUENZA, SEASONAL, INJECTABLE 2016 141 complet ed [facility] [place] PNEUMOCOCCAL CONJUGATE PCV 13 2015 133 complet ed [facility] [place] PNEUMOCOCCAL POLYSACCHARID E PPV23 2014 33 complet ed [facility] TDAP 2014 115 complet ed [facility] [place] Vital Signs Combined list of inpatient and outpatient Vital Signs from Department of Defense and Veterans Affairs, ranging from 12 months to all on record, depending upon the facility. Vital Sign Value Date Comments Source SYSTOLIC BLOOD PRESSURE 125 04/11/20 24 09:48:39 [facility] DIASTOLIC BLOOD PRESSURE 80 024 09:48:39 [facility] PULSE OXIMETRY 94 04/11/2024 09:48:39 [facility] WEIGHT 208.2 04/11/2024 09:48:39 [facility] BMI 34 kg/m2 04/11/2024 09:48:39 [facility] PAIN 1 04/11/2024 09:48:39 [facility] TEMPERATURE 97.5 04/11/2024 09:48:39 [facility] PULSE 68 04/11/2024 09:48:39 [facility] RESPIRATION 16 04/11/2024 09:48:39 [facility] [...] ADM Date DC Date Status Disposition Source [facility] Outpatient Encounter [id number] 06/05 [facility] Outpatient Encounter [id number] 09/19 [facility] Outpatient Encounter [id number] 09/23 [facility] OFFICE O/P [place] 60 MIN [id number] Diagnos is: ICD-10- CM D09.0 Carcino ma in situ of bladder LYNNETTE ROBLES 09/23 [facility] TARGETED CASE MANAGEMENT [id number] KARELY ARANA 09/25 [facility] HEARING AID FITTING/CH ECKING [id number] Diagnos is: ICD-10- CM Z46.1 Encount er for fitting and adjustm ent of hearing aid Tiesha HERR 12/19 [facility] Outpatient Encounter [id number] 02/07 [facility] Out[facility] Encounter [id number] 02/07 [facility] [place] [facility] HEARING AID REPAIR/MOD IFYING [id number] Diagnos is: ICD-10- CM H90.3 Sensori neural hearing loss, bilater ILANA Morse 03/10 [facility] [place] [place] OFFICE O/P EST MOD 30 MIN [id number] Diagnos is: ICD-10- CM I48.91 Unspeci fied atrial fibrill ation Corrie BULLOCK 04/11 [facility] HEARING SERVICE [id number] Diagnos is: ICD-10- CM Z46.1 Encount er for fitting and adjustm ent of hearing aid ILANA PITTS L 04/11 [facility] Out[facility] Encounter [id number] 04/12 [facility] SPECIAL SUPPLIES PHYS/QHP [id number] Diagnos is: ICD-10- CM J44.9 Chronic obstruc tive pulmona ry disease , unspeci fied ST AMLINDSAYHOLLIE E P 04/17 [facility] Outpatient Encounter [id number] 04/18 [facility] Outpatient Encounter [id number] 04/18 [facility] Outpatient Encounter [id number] 04/21 [facility] Outpatient Encounter [id number] 04/22 [facility] HEARING AID CHECK BOTH EARS [id number] Diagnos is: ICD-10- CM Z46.1 Encount er for fitting and adjustm ent of hearing aid CHUY ORTIZ 04/29 [facility] Out[facility] Encounter [id number] 05/16 [facility] Encounter [id number] 05/19 [facility] HEARING AID FITTING/CH ECKING [id number] Diagnos is: ICD-10- CM Z46.1 Encount er for fitting and adjustm ent of hearing aid ILANA PITTS 05/20 [facility] Out[facility] Encounter [id number] 06/24 [facility] Out[facility] Encounter [id number] 06/30 [facility] Out[facility] Encounter [id number] 07/28 [facility] Social History Combined list of available smoking, tobacco, and other social history from Department of Defense and Veterans Affairs facilities. Social History Type Response Date Comment Sour e Tobacco smoking status [facility] VA-TOBACCO FORMER USER 04/11/2024 [facility] History of tobacco use VA-TOBACCO QUIT 5 TO < 15 YRS 04/11/2024 [facility] History of tobacco use VA-TOBACCO FORMER USER 09/24/2023 [facility] History of tobacco use VA-TOBACCO FORMER USER 04/09/2023 [facility] History of tobacco use VA-TOBACCO FORMER USER 04/13/2022 [facility] History of tobacco use VA-TOBACCO FORMER USER 04/12/2021 [facility] History of tobacco use VA-TOBACCO QUIT 5 TO < 15 YRS 03/19/2020 [facility] History of tobacco use PA-TOBACCO FORMER USER 12/12/2018 [facility] History of tobacco use QUIT TOBACCO USE > 7 YEARS AGO 01/21/2018 [facility] History of tobacco use QUIT TOBACCO USE > 7 YEARS AGO 12/25/2016 [facility] Plan of Care List of future care activities from [facility] facilities. Additional future care activities may be listed in the Assessment and Plan section. Date/Time Care Activity Care Activity Detail Facili ty 01/13/2025 AMBULATORY - MEDICINE AMBULATORY - MEDICI NE [facility] Advance Directives List of completed, amended, or rescinded Advance Directives on record at [facility] facilities. An actual copy of the Directive is not included. Date Advance Directive Provider Source 05/23/2015 ADVANCE DIRECTIVE [facility]
--- OUTSIDE RECORDS SUMMARY | 2024-11-28 06:51 | XMS_ITS ---
Author Organization [facility] Address [address] [place] [address] Care Team Providers Care Nut Tapper Name Role Phone Po Any CUI Primary Care Provider Darrian Galvez [phone] Allergies Allergen (clinical drug ingredient) Drug/Non Drug Allergy documented on EMR Reaction Allergy Type Onset Date Status doxycycline Doxycycline jaundice Drug Allergy Act eva amoxicillin Amoxicillin jaundice Drug Allergy Act eva REASON FOR VISIT Patient presents today for jaundice Medications Medication SIG (Take, Route, Frequency, Duration) Notes Start Date End Date Status Wixela Inhub 250-50 MCG/ACT Inhalation for 30 Days Active Simvastatin 40 MG Oral for 90 Active Dupixent 300 MG/2ML Subcutaneous for 28 Active Metoprolol Tartrate 50 MG Oral for 45 Active Eliquis 5 MG TAKE 1 TABLET BY MOUTH TWICE A DAY Oral for 90 Active Advair HFA 230-21 MCG/ACT Inhalation for 30 Active Famotidine 40 MG 1 tablet Orally Twice a day for itching for 30 days I want him to continue his omeprazole as well. I am prescribing the H-2 willian to try to help his pruritus. Thanks 11/20/2024 Active Advair Diskus 100-50 MCG/DOSE as directed Inhalation Active Omeprazole 20 MG 1 capsule 30 minutes before morning meal Orally Once a day for 30 day(s) Active Problems Problem Type SNOMED Code ICD Code Onset Dates Problem Status W/U Status Risk Notes Problem GERD (gastroesopha geal reflux disease) (K21.9) Active confirmed Vital Signs Blood pressure systolic 111 mm Hg 11/21/19 25 Blood pressure diastolic 77 mm Hg 025 Height 66 in 11/20/2024 Weight 200 lbs 11/20/2024 BMI 32.28 kg/m2 11/20/2024 Procedures Procedure Date Ordered Date Performed Result Body Sit e COLONOSCOPY 11/20/2024 N/A Encounters Encounter Location Date Provider Diagnosis [facility] [address] [place] [address] 11/20/2024 Darrian Khan Hx of adenomatous colonic polyps Z86.010 ; Encounter for screening for malignant neoplasm of colon Z12.11 ; Pruritus L29.9 and GERD (gastroesophageal reflux disease) K21.9 Assessments Encounter Date Diagnosis (ICD Code) Assessment Notes Treatment Notes Treatment Clinical Notes Section Notes 11/20/2024 Hx of adenomatous colonic polyps (ICD-10 - Z86.010) Overall, Volodymyr appears well and is not having any new or worrisome GI complaints. 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 We did review the rationale for this in regard to colon cancer prevention. Full consent has been attained for this, including risks of bleeding and perforation. The procedure will be done with monitored anesthesia care. He was given the below instructions regarding adjustment of his Eliquis for the procedure and we shall advise his claims director of that as well. His reflux seems stable on his omeprazole. However, I shall give him a trial of Pepcid 40 mg twice daily to see if that might help with his itching since it does have some antihistamine effect. I did advise him to review this with his pe electrical engineer when he sees them in follow-up and he can always stop the Pepcid if it is not helping the pruritus. Given the previous history of liver issues with the jaundice, which was felt to be a drug-induced reaction, I shall check a repeat liver profile, liver fibrosis score, and bile acids. However, I advised him that I do not think his pruritus is related to any underlying liver disease at this point given no signs of jaundice as he had had in the past. Volodymyr and his were comfortable with this plan. Thank you again for allowing me to participate in Volodymyr's care. I shall continue to keep you advised of his progress.. 11/20/2024 Encounter for screening for malignant neoplasm of colon (ICD-10 - Z12.11) Overall, Volodymyr appears well and is not having any new or worrisome GI complaints. 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 We did review the rationale for this in regard to colon cancer prevention. Full consent has been attained for this, including risks of bleeding and perforation. The procedure will be done with monitored anesthesia care. He was given the below instructions regarding adjustment of his Eliquis for the procedure and we shall advise his claims director of that as well. His reflux seems stable on his omeprazole. However, I shall give him a trial of Pepcid 40 mg twice daily to see if that might help with his itching since it does have some antihistamine effect. I did advise him to review this with his pe electrical engineer when he sees them in follow-up and he can always stop the Pepcid if it is not helping the pruritus. Given the previous history of liver issues with the jaundice, which was felt to be a drug-induced reaction, I shall check a repeat liver profile, liver fibrosis score, and bile acids. However, I advised him that I do not think his pruritus is related to any underlying liver disease at this point given no signs of jaundice as he had had in the past. Volodymyr and his were comfortable with this plan. Thank you again for allowing me to participate in Volodymyr's care. I shall continue to keep you advised of his progress.. 11/20/2024 Pruritus (ICD-10 - L29.9) I will send over a prescription for Pepcid for the itching Overall, Volodymyr appears well and is not having any new or worrisome GI complaints. 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 We did review the rationale for this in regard to colon cancer prevention. Full consent has been attained for this, including risks of bleeding and perforation. The procedure will be done with monitored anesthesia care. He was given the below instructions regarding adjustment of his Eliquis for the procedure and we shall advise his claims director of that as well. His reflux seems stable on his omeprazole. However, I shall give him a trial of Pepcid 40 mg twice daily to see if that might help with his itching since it does have some antihistamine effect. I did advise him to review this with his pe electrical engineer when he sees them in follow-up and he can always stop the Pepcid if it is not helping the pruritus. Given the previous history of liver issues with the jaundice, which was felt to be a drug-induced reaction, I shall check a repeat liver profile, liver fibrosis score, and bile acids. However, I advised him that I do not think his pruritus is related to any underlying liver disease at this point given no signs of jaundice as he had had in the past. Volodymyr and his were comfortable with this plan. Thank you again for allowing me to participate in Volodymyr's care. I shall continue to keep you advised of his progress.. 11/20/2024 GERD (gastroesophage al reflux disease) (ICD-10 - K21.9) Overall, Volodymyr appears well and is not having any new or worrisome GI complaints. 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 We did review the rationale for this in regard to colon cancer prevention. Full consent has been attained for this, including risks of bleeding and perforation. The procedure will be done with monitored anesthesia care. He was given the below instructions regarding adjustment of his Eliquis for the procedure and we shall advise his claims director of that as well. His reflux seems stable on his omeprazole. However, I shall give him a trial of Pepcid 40 mg twice daily to see if that might help with his itching since it does have some antihistamine effect. I did advise him to review this with his pe electrical engineer when he sees them in follow-up and he can always stop the Pepcid if it is not helping the pruritus. Given the previous history of liver issues with the jaundice, which was felt to be a drug-induced reaction, I shall check a repeat liver profile, liver fibrosis score, and bile acids. However, I advised him that I do not think his pruritus is related to any underlying liver disease at this point given no signs of jaundice as he had had in the past. Volodymyr and his were comfortable with this plan. Thank you again for allowing me to participate in Volodymyr's care. I shall continue to keep you advised of his progress.. Plan Of Treatment Medication Medication Name Sig Start Date Stop Date Notes Famotidine 40 MG 1 tablet Orally Twic e a day for itching for 30 days 11/20/2024 I want him to contin ue his omeprazole as well. I am prescribing the H-2 willian to try to help his pruritus. Thanks Treatment Notes Assessment Notes Pruritus I will send over a p rescription for Pepcid for the itching Pending Test Test Name Order Date COLONOSCOPY 11/20/2024 LIVER PROFILE 11/20/2024 Liver Fibrosis Pnl 11/20/2024 Bile Acids Total, Fractionated Next Appt Details Provider Name:Darrian Khan , 01/26/2025 02:30:00 PM, [address] [place] [address] , [place], [place], [phone], Progress Notes * VOLODYMYR ARNOLD JrDOB: (74 yo M)Acc No.[id number]:11/20/2024 Progress Notes Patient:?VOLODYMYR ARNOLD Provider:?Darrian Khan MD :1950???Age:74 Y???Sex:Male Reece e:11/20/2024 Address:[place] [address], [id number] Pcp:Any Jackson MD Subjective: * Chief Complaints: * ???1. Patient presents today for jaundice. * HPI: ???incontinence:? I saw Volodymyr in follow-up today regard to his previous history of jaundice with associated pruritus, his history of tubular adenomas of the colon, and discussion of colorectal cancer screening. He was accompanied by his . Since I last saw Volodymyr in May 2024 he has been doing well from a GI standpoint. He has not had any recurrence of his jaundice but did develop recurrent pruritus over the past 2 to 3 months. He enjoys a good appetite and denies any significant heartburn nor dysphagia on his daily omeprazole. His bowel movements been regular and without any signs of bleeding. He denies any abdominal pain, signs of jaundice, nor unintentional weight loss. He has been using Dupixent both for eczema and COPD in hopes of perhaps improving his pruritus, but thus far without any improvement. * Medical History:?Hyperlipide jim, Colonoscopy [id number]--1 tubular adenoma removed; colonoscopy 03/2014 with 2 small tubular adenomas, EGD [place] [address] Walter--negative except for mild reflux-there was no Hough's esophagus nor significant esophagitis, Irregular heartbeat--Atrial fibrillation/PVC's--Dr. Shearer. Had an ablation in 04/[address] Brownlee, Denies PR,DM,CVA,Lung disease,renal disease, Bladder cancer 06/2013--has periodic cystoscopies with infusions of chemotherapy with Dr. Alicea, HTN, Sleep apnea-uses CPAP, Negative colonoscopy 11/2019, COPD/Asthma-sees Dr. Christie, COVID 01/2022, Negative followup screening colonoscopy in November of 2019, Intestinal blockages in 2020(surgery as below) and 2021(NG tube and no surgery), Jaundice and elevated LFTs in late May of 2022--resolved spontaneously and felt to be related to a possible allergic reaction to amoxicillin and/or doxycycline, Recurrence of bladder cancer 2023-sees Dr. Alicea. * Surgical History:?Carpal catina marquis surgery , Appendectomy , Knee surgery-right , Skin cancer removal--basal cell , Knee replacement-partial--- left 08/2019, Right big toe , [id number]. Mazzucco 2020, cardiac ablasion - dr. Brownlee 2022. * Family History:?Father: dece ased.?Mother: .? There is no family history of colorectal cancer or liver disease. * Social History:?Tobacco Use:?Tobacco Use/Smoking?Are you a: former smoker , How long has it been since you last smoked?: 1-5 years.?Drugs/Alcohol:?Alcohol Screen?Points: 0, Interpretation: Negative.?Miscellaneous:?Marital status: . Occupation: retired. ???Nonsmoker; no alcohol > 30 years. * Medications:?Taking Advair D iskus 100-50 MCG/DOSE Miscellaneous as directed Inhalation , Taking Omeprazole 20 MG Capsule Delayed Release 1 capsule 30 minutes before morning meal Orally Once a day , Taking Eliquis 5 MG Tablet TAKE 1 TABLET BY MOUTH TWICE A DAY Oral , Taking Advair HFA 230-21 MCG/ACT Aerosol Inhalation , Taking Metoprolol Tartrate 50 MG Tablet Oral , Taking Dupixent 300 MG/2ML Solution Auto-injector Subcutaneous , Taking Simvastatin 40 MG Tablet Oral , Taking Wixela Inhub 250-50 MCG/ACT Aerosol Powder Breath Activated Inhalation , Discontinued Tranexamic Acid 650 MG Tablet as directed Orally , Discontinued DOCEtaxel 20 MG/2ML Solution as directed Intravenous , Discontinued Gemcitabine HCl 200 MG Solution Reconstituted as directed Intravenous , Medication List reviewed and reconciled with the patient * Allergies:?Amoxicillin: eloise dice, Doxycycline: jaundice. Objective: * Vitals:?Wt:200lbs, Ht: 66 in , BMI:32.28Index, BP:111/77mm Hg, Wt-k.72. Assessment: * Assessment: 1.?Hx of adenomatous colonic polyps - Z86.010 (Primary)???2.?Encounter for screening for malignant neoplasm of colon - Z12.11???3.?Pruritus - L29.9???4.?GERD (gastroesophageal reflux disease) - K21.9??? Overall, Volodymyr appears well and is not having any new or worrisome GI complaints. 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 We did review the rationale for this in regard to colon cancer prevention. Full consent has been attained for this, including risks of bleeding and perforation. The procedure will be done with monitored anesthesia care. He was given the below instructions regarding adjustment of his Eliquis for the procedure and we shall advise his claims director of that as well. His reflux seems stable on his omeprazole. However, I shall give him a trial of Pepcid 40 mg twice daily to see if that might help with his itching since it does have some antihistamine effect. I did advise him to review this with his pe electrical engineer when he sees them in follow-up and he can always stop the Pepcid if it is not helping the pruritus. Given the previous history of liver issues with the jaundice, which was felt to be a drug-induced reaction, I shall check a repeat liver profile, liver fibrosis score, and bile acids. However, I advised him that I do not think his pruritus is related to any underlying liver disease at this point given no signs of jaundice as he had had in the past. Volodymyr and his were comfortable with this plan. Thank you again for allowing me to participate in Volodymyr's care. I shall continue to keep you advised of his progress.. Plan: * Treatment: 2.?Encounter for screening for malignant neoplasm of colon?Procedure: COLONOSCOPY* with MAC. DO NOT TAKE ELIQUI S FOR 2 DAYS BEFORE THE COLONOSCOPY. WE WILL GET AN OK FROM DR. Hernandez for 01/26/25 at 2:30 pmmiralax 3.?Pruritus? Start Famotidine Tablet, 40 MG, 1 tablet, Orally, Twice a day for itching, 30 days, 60, Refills 3, Notes to Pharmacist: I want him to continue his omeprazole as well. I am prescribing the H-2 blockerto try to help his pruritus. Thanks.?LAB: LIVER PROFILE ?LAB: Liver Fibrosis Pnl ?LAB: Bile Acids Total, Fractionated Notes: I will send over a prescription for Pepcid for the itching?? * Procedure Codes:?39359 DIAGN OSTIC COLONOSCOPY * Preventive Medicine:? ??Counseling:?Care goal follow-up plan:?Above Normal BMI Follow-up?Giving encouragement to exercise,?BMI management provided?Yes.? ??Screenings:?Fall Risk Screening?Fall Risk Assessment:?No falls in the past year,?Screening:?No falls in the past year,?Assessment:?Not performed, no reason specified,?Plan of Care:?Not documented, no reason specified.? * * The named appointment provid er may or may not be the originator of this progress note, and it is not deemed complete until electronically signed by the appointment provider. Sign off status: Pending * Provider:?Darrian Khan MD Date:? 025 Generated for Enrique bullock/Vito/Salsmitting on:?11/28/2024 06:50 AM EDT History and Physical Notes * HPI (History of Present Illness) Category Sub-Category Detail Notes Category Not es incontinence I saw Volodymyr in follow-up today regard to his previous history of jaundice with associated pruritus, his history of tubular adenomas of the colon, and discussion of colorectal cancer screening. He was accompanied by his . Since I last saw Volodymyr in May 2024 he has been doing well from a GI standpoint. He has not had any recurrence of his jaundice but did develop recurrent pruritus over the past 2 to 3 months. He enjoys a good appetite and denies any significant heartburn nor dysphagia on his daily omeprazole. His bowel movements been regular and without any signs of bleeding. He denies any abdominal pain, signs of jaundice, nor unintentional weight loss. He has been using Dupixent both for eczema and COPD in hopes of perhaps improving his pruritus, but thus far without any improvement.
--- OUTSIDE RECORDS SUMMARY | 2024-11-28 06:51 | XMS_ITS ---
Author Organization [facility] Address [address] [place] [address] Care Team Providers Care Doorperson Or Luggage Porter Name Role Phone Po Any CUI Primary Care Provider Darrian Galvez [phone] Allergies Allergen (clinical drug ingredient) Drug/Non Drug [...] 5 MG TAKE 1 TABLET BY ASHLEY TWICE A DAY Oral for 90 Active Advair Diskus 100-50 MCG/DOSE as directed Inhalation Activ e Vital Signs Blood pressure systolic 00 mm Hg 05/16/20 24 Blood pressure diastolic 00 mm Hg 024 Height 66 in 05/16/2024 Weight 205 lbs 05/16/2024 BMI 33.08 kg/m2 05/16/2024 Encounters Encounter Location Date Provider Diagnosis [facility] [address] [place] [address] 05/16/2024 Darrian Khan Hx of adenomatous colonic [...] all other drugs in that class terminal supervisor, including Augmentin. I don't think he needs [...] and all other drugs in that class retirement, including Augmentin. I don't think he needs [...] and all other drugs in that class retirement, including Augmentin. I don't think he needs [...] 2024, Re ason: Provider Name:Darrian Khan , 01/26/2025 02:30:00 PM, [address] [place] [address] , [place], [place], [phone], Progress Notes * VOLODYMYR ARNOLD JrDOB: (74 yo M)Acc No.[id number]:05/16/2024 Progress Notes Patient:?VOLODYMYR ARNOLD Provider:?Darrian Khan MD :1950???Age:74 Y???Sex:Male Reece e:05/16/2024 Address:[place] [address], [facility] [id number] Pcp:Any Jackson MD Subjective: * Chief Complaints: [...] cell Knee replacement-partial--- left 08/2019Right big toe [id number]. Mazzucco 2020 * Hospitalization/Major Diagno stic Procedure:?No [...] and all other drugs in that class retirement, including Augmentin. I don't think he needs [...] * Treatment: * Procedure Codes:?1036F TOBAC CO [id number] BP SCR NOT PRFRM REC REASON NOS [...] Khan MD Date:? 024 Generated for Enrique bullock/Vito/Sindi on:?11/28/2024 06:50 AM EDT History and Physical [...]
--- OUTSIDE RECORDS SUMMARY | 2024-11-28 06:51 | XMS_ITS | Patient Health Record ---
Author Organization [facility] Address [address] [place] [address] Care Team Providers Care Willow Worker Name Role Phone Po Any CUI Primary Care Provider Darrian Galvez [facility] [phone] Allergies Allergen (clinical drug ingredient) Drug/Non Drug Allergy documented on EMR Reaction Allergy Type Onset Date Status doxycycline Doxycycline jaundice Drug Allergy Act eva amoxicillin Amoxicillin jaundice Drug Allergy Act eva Results Component Value Reference Range Notes Ammonia Reviewed date:02/29/2024 07:55:27 PM Interpretation: Performing Lab:[facility], [address] [place] [phone] Notes/Report: Ammonia 28 13-55 umol/L Complete Blood Count no Diff Reviewed date:02/22/2024 05:51:08 PM Interpretation: Performing Lab:[facility], [address] [place] [phone] Notes/Report: White Blood Count 5.7 4.8-10.8 X10*3/uL [...] INR Reviewed date:02/22/2024 05:55:38 PM Interpretation: Performing Lab:[facility], [address] [place] [phone] Notes/Report: Prothrombin Time 12.9 11.1-13.3 SEC INTERNATIONAL [...] Panel Reviewed date:02/22/2024 06:05:52 PM Interpretation: Performing Lab:[facility], [address] [place] [phone] Notes/Report: Bilirubin Total 4.7 0.0-1.0 mg/dL Bilirubin Direct 3.4 0.0-0.5 mg/dL Aspartate Amino Transferase 52 5-37 U/L Alanine Aminotransferase 77 0-40 U/L Total Protein 7.7 6.5-8.0 g/dL Albumin Level 4.0 3.5-5.0 g/dL Alkaline Phosphatase 141 39-117 U/L IRON PROFILE Reviewed date:02/22/2024 05:55:56 PM Interpretation: Performing Lab:[facility], [address] [place] [phone] Notes/Report: Iron 127 45-160 mcg/dL Total Iron Binding Capacity 291 228-428 mcg/d L Percent Iron Saturation 44 15-50 % Unsaturated Iron Binding 164 Ferritin Reviewed date:02/22/2024 05:56:05 PM Interpretation: Performing Lab:[facility], [address] [place] [phone] Notes/Report: Ferritin 366 20-250 ng/mL SANDY Reflex Titer and Pattern Reviewed date:02/25/2024 10:47:25 PM Interpretation: Performing Lab:[facility], [address] [place] [phone] Notes/Report: Anti Nuclear Antibody Screen NEGATIVE NEGATIVE [...] Negative International Consensus on SANDY Patterns (https://doi.org/10.1515/c vpc-3388-1418) For additional information, please refer to http://education.DailyLook/faq/PJL065 (This link is being provided for informational/ educational purposes only.) THIS TEST WAS PERFORMED AT: [facility] [address] [place] [phone] AMILCAR ZABALA MD Anti Nuclear Antibody Titer TNP Anti Nuclear Antibody Pattern TNP SANDY Titer 2 TNP SANDY Pattern 2 TNP SANDY Titer 3 TNP SANDY Pattern 3 TNP Mitochondrial Antibody Reviewed date:03/03/2024 11:29:34 PM Interpretation: Performing Lab:[facility], [address] [place] [phone] Notes/Report: Mitochondrial Antibodies NEGATIVE NEGATIVE The specimen was negative for cytoplasmic antibodies, however additional staining was observed suggesting the presence of Antinuclear Antibodies. Consider requesting order code 249, SANDY Screen, IFA with Reflex to Titer and Pattern, or order code 19611, SANDY Screen, IFA w/reflex Titer/Pattern, and Reflex to Multiplex 11 Ab [place], if clinically indicated. THIS TEST WAS PERFORMED AT: [facility] [address] [place] [phone] AMILCAR ZABALA MD Mitochondrial Ab Titer TNP Smooth Muscle Antibody Reviewed date:03/03/2024 11:29:41 PM Interpretation: Performing Lab:[facility], [address] [place] [phone] Notes/Report: Smooth Muscle Antibody <20 <20 U [...] type 1. THIS TEST WAS PERFORMED AT: [facility]/[address] [phone] ANGEL VIDAL MD,PHD Hepatitis A,B,C Profile Reviewed date:02/22/2024 05:56:33 PM Interpretation: Performing Lab:[facility], [address] [place] [phone] Notes/Report: Hepatitis A Antibody IgM Nonreactive Nonreactive [...] ff Reviewed date:02/29/2024 07:54:38 PM Interpretation: Performing Lab:[facility], [address] [place] [phone] Notes/Report: White Blood Count 6.5 4.8-10.8 X10*3/uL [...] Time Reviewed date:02/29/2024 07:54:46 PM Interpretation: Performing Lab:[facility], [address] [place] [phone] Notes/Report: Partial Thromboplastin Time 39.0 26.0-36.8 SEC For information regarding the monitoring of direct thrombin inhibitors, please refer to Pharmacy. Liver Panel Reviewed date:03/02/2024 11:08:18 PM Interpretation: Performing Lab:[facility], [address] [place] [phone] Notes/Report: Bilirubin Total 2.5 0.0-1.0 mg/dL Bilirubin Direct 1.6 0.0-0.5 mg/dL Aspartate Amino Transferase 58 5-37 U/L Alanine Aminotransferase 87 0-40 U/L Total Protein 7.4 6.5-8.0 g/dL Albumin Level 3.8 3.5-5.0 g/dL Alkaline Phosphatase 111 39-117 U/L Basic Metabolic Panel Reviewed date:02/29/2024 07:55:19 PM Interpretation: Performing Lab:[address] [phone] Notes/Report: Sodium 140 135-145 mmol/L Potassium 4.6 3.3-5.1 mmol/L Chloride 104 96-108 mmol/L Carbon Dioxide 30 22-29 mmol/L Anion Gap 11 12-20 Blood Urea Nitrogen 15 9-16 mg/dL Creatinine 0.96 0.5-1.4 mg/dL Estimated Glomerular Filt Rate > 60 NOTE: For -Kosovan individuals, multiply the result by 1.210. Chronic Kidney Disease: Estimated GFR < 60 mL/min/1.73m2 Severe Kidney Disease: Estimated GFR < 15 mL/min/1.73m2 Glucose Random 98 60-115 mg/dL Calcium 10.1 8.4-10.2 mg/dL Liver Panel Reviewed date:03/12/2024 07:33:03 AM Interpretation: Performing Lab:[facility], [address] [place] [phone] Notes/Report: Bilirubin Total 1.3 0.0-1.0 mg/dL Bilirubin Direct 0.8 0.0-0.5 mg/dL Aspartate Amino Transferase 37 5-37 U/L Alanine Aminotransferase 71 0-40 U/L Total Protein 7.7 6.5-8.0 g/dL Albumin Level 4.1 3.5-5.0 g/dL Alkaline Phosphatase 90 39-117 U/L Blood Urea Nitrogen Reviewed date:03/10/2024 11:20:43 PM Interpretation: Performing Lab:[facility], [address] [place] [phone] Notes/Report: Blood Urea Nitrogen 15 9-16 mg/dL Creatinine Reviewed date:03/10/2024 11:20:50 PM Interpretation: Performing Lab:[facility], [address] [place] [phone] Notes/Report: Creatinine 0.86 0.5-1.4 mg/dL Estimated Glomerular Filt Rate > 60 NOTE: For -Kosovan individuals, multiply the result by 1.210. Chronic Kidney Disease: Estimated GFR < 60 mL/min/1.73m2 Severe Kidney Disease: Estimated GFR < 15 mL/min/1.73m2 Liver Panel Reviewed date:03/31/2024 08:49:38 AM Interpretation: Performing Lab:[facility], [address] [place] [phone] Notes/Report: Bilirubin Total 1.1 0.0-1.0 mg/dL Bilirubin [...] 250-50 MCG/ACT Inhalation for 30 Days Active Dupixent 300 MG/2ML Subcutaneous for 28 Active Simvastatin 40 MG Oral for 90 Active Metoprolol Tartrate 50 MG Oral for 45 Active Eliquis 5 MG TAKE 1 TABLET BY MOUTH TWICE A DAY Oral for 90 Active Advair HFA 230-21 MCG/ACT Inhalation for 30 Active Advair Diskus 100-50 MCG/DOSE as directed Inhalation Active Omeprazole 20 MG 1 capsule 30 minutes before morning meal Orally Once a day for 30 day(s) Active Famotidine 40 MG 1 tablet Orally Twice a day for itching for 30 days I want him to continue his omeprazole as well. I am prescribing the H-2 willian to try to help his pruritus. Thanks 11/20/2024 Active Immunizations Vaccine Route Administration Date Status Comme nts Influenza Unknown 03/16/2019 Administered Influenza Unknown 03/16/2022 Administered Influenza Unknown 05/03/2022 Administered Problems Problem Type SNOMED Code ICD Code Onset Dates Problem Status W/U Status Risk Notes Problem 999221431 Encounter for screening for malignant neoplasm of colon (Z12.11) Active confirmed Problem 998255751 Elevated LFTs (R79.89) Active confirmed Problem 175137191580067 Preprocedural examination (Z01.818) Active confirmed Problem 76408731 Iron excess (E83.19) Active confirmed Problem Jaundice (16784599) Jaundice (R17) Active confirmed Problem GERD (gastroesophagea l reflux disease) (K21.9) Active confirmed Problem 211963884 Hx of adenomatous colonic polyps (Z86.010) Active confirmed Problem Pruritus (541685220) Pruritus (L29.9) Active confirmed Problem Elevated liver enzymes level (573017805) Elevated liver function tests (R94.5) Active confirmed Vital Signs Blood pressure diastolic 77 mm Hg 11/20/2024 Height 66 in 11/20/2024 Blood pressure systolic 111 mm Hg 11/20/2024 Weight 200 lbs 11/20/2024 BMI 32.28 kg/m2 11/20/2024 Procedures Procedure Date Ordered Date Performed Result Body Sit e COLONOSCOPY 11/20/2024 N/A Encounters Encounter Location Date Provider Diagnosis [facility] [address] [place] [phone] 11/20/2024 Darrian Khan Hx of adenomatous colonic polyps Z86.010 ; Encounter for screening for malignant neoplasm of colon Z12.11 ; Pruritus L29.9 and GERD (gastroesophageal reflux disease) K21.9 [facility] [address] [place] [phone] 02/26/2024 Darrian Khan Jaundice R17 and Pruritus L29.9 [facility] [address] [place] [phone] 05/16/2024 Darrian Khan Hx of adenomatous colonic polyps Z86.010 ; Jaundice R17 and Encounter for screening for malignant neoplasm of colon Z12.11 [place] [address] 02/19/2024 Darrian Khan Elevated LFTs R79.89 [facility] [address] [place] [phone] 03/02/2024 Darrian Khan Elevated liver function tests R94.5 [facility] [address] [place] [phone] 03/13/2024 Darrian Khan Elevated liver function tests R94.5 Assessments Encounter Date Diagnosis (ICD Code) Assessment Notes Treatment Notes Treatment Clinical Notes Section Notes 11/20/2024 Encounter for screening for malignant neoplasm [...] the procedure and we shall advise his belt notcher of that as well. His reflux seems stable on his omeprazole. However, I shall give him a trial of Pepcid 40 mg twice daily to see if that might help with his itching since it does have some antihistamine effect. I did advise him to review this with his physicist astrophysics when he sees them in follow-up and [...] keep you advised of his progress.. 11/20/2024 Hx of adenomatous colonic polyps (ICD-10 [...] the procedure and we shall advise his belt notcher of that as well. His reflux seems stable on his omeprazole. However, I shall give him a trial of Pepcid 40 mg twice daily to see if that might help with his itching since it does have some antihistamine effect. I did advise him to review this with his physicist astrophysics when he sees them in follow-up and [...] to keep you advised of his progress.. 02/26/2024 Jaundice (ICD-10 - R17) Overall, Volodymyr [...] just about 3 weeks ago while in [place]. I shall check followup laboratories at the [...] the year prior to his leaving for [place] for the winter. I did advise him [...] he had from May of 2022 through February of 2023 in regard to the exposure to amoxicillin, [...] just about 3 weeks ago while in [place]. I shall check followup laboratories at the [...] the year prior to his leaving for [place] for the winter. I did advise him [...] and all other drugs in that class primary care sales representative, including Augmentin. I don't think he needs [...] and all other drugs in that class usp, including Augmentin. I don't think he needs [...] Elevated liver function tests (ICD-10 - R94.5) 11/20/2024 Pruritus (ICD-10 - L29.9) I will [...] the procedure and we shall advise his belt notcher of that as well. His reflux seems stable on his omeprazole. However, I shall give him a trial of Pepcid 40 mg twice daily to see if that might help with his itching since it does have some antihistamine effect. I did advise him to review this with his physicist astrophysics when he sees them in follow-up and [...] to keep you advised of his progress.. 05/16/2024 Encounter for screening for malignant neoplasm of colon (ICD-10 - Z12.11) Overall, Volodymyr appears quite well. His jaundice and elevated LFTs have resolved completely. We did review the underlying etiology of this again as being that of an allergy to amoxicillin and the need to avoid that and all other drugs in that class usp, including Augmentin. I don't think he needs [...] to keep you advised of his progress. 11/20/2024 GERD (gastroesophage al reflux disease) (ICD-10 [...] the procedure and we shall advise his belt notcher of that as well. His reflux seems stable on his omeprazole. However, I shall give him a trial of Pepcid 40 mg twice daily to see if that might help with his itching since it does have some antihistamine effect. I did advise him to review this with his physicist astrophysics when he sees them in follow-up and [...] advised of his progress.. Plan Of Treatment Pending Test Test Name Order Date COLONOSCOPY 11/20/2024 CHEM 7 PROFILE 06/16/2022 CHEM 7 PROFILE 06/14/2022 CHEM 7 PROFILE 02/26/2024 LIVER PROFILE 06/14/2022 LIVER PROFILE 02/26/2024 LIVER PROFILE 03/13/2024 LIVER PROFILE 08/11/2022 LIVER PROFILE 06/16/2022 LIVER PROFILE 08/11/2022 LIVER PROFILE 11/20/2024 LIVER PROFILE 06/21/2022 LIVER PROFILE 06/29/2022 LIVER PROFILE 03/02/2024 LIVER PROFILE 02/19/2024 IRON + IBC (FE) 02/19/2024 IRON + [...] A,B,C PROFILE 02/19/2024 HEPATITIS A,B,C PROFILE 06/16/2022 [id number] (A1A) 06/16/2022 MITOCHONDRIAL AB 02/19/2024 SMOOTH MUSCLE ANTIBODIES 02/19/2024 MRI ABD W&WO CONTRAST 06/16/2022 FLUOR. ANTINUCLEAR AB SCREEN ([facility]) 08/2021 FLUOR. ANTINUCLEAR AB SCREEN ([facility]) 12/2023 Prothrombin Time INR 06/29/2022 Ferritin 08/11/2022 Ferritin 08/11/2022 Liver Fibrosis Pnl 11/20/2024 Bile Acids Total, Fractionated Future Test Test Name Order Date COLONOSCOPY 01/27/2014 COLONOSCOPY 11/20/2019 Next Appt Details Provider Name:Darrian Khan , 01/26/2025 02:30:00 PM, [address] [place] [address] , [place], [place], [id number], Insurance Providers Payer Name Payer Address Payer Phone Subscriber Number Group Number Insured Name Patient Relationship to Insured Coverage Start Date Coverage End Date [facility] [address] [address] [place] [address] [phone] [id number] VOLODYMYR ARNOLD Self - patient is the insured Medical (General) History Medical History History ICD Code Hyperlipidemia Colonoscopy 10-12-2008--1 tub ular adenoma removed; colonoscopy 03/2014 with 2 small tubular adenomas EGD [place] [address] Walter-- negative except for mild reflux-there was no Hough's esophagus nor significant esophagitis Irregular heartbeat--Atrial fibrillation/PVC's--Dr. Shearer. Had an ablation in 04/[address] Kem Lindsay [place],DM,CVA,Lung disease,renal dise ase Bladder cancer 06/2013--has [...] 2023-sees Jay [facility] Surgical History Surgery Date(Month/Year) cardiac ablasion - dr. Brownlee 2022 RLQ-czhlmxjcl-Yj. Mazzucco 2020 Right big toe Knee replacement-partial--- left 08/2019 Skin cancer removal--basal cell Knee surgery-right Appendectomy Carpal tunnel surgery
[2024-11-28 07:05] LABS: MANUAL DIFF FLAG NO
[2024-11-28 07:42] LABS: Basophils Percent Auto 0.2 % (0-2); Eosinophils Percent Auto 0.2 % (0-4); Hemoglobin 15.8 g/dl (14.0-18.0); Imm Gran Abs Auto 0.03 X10*3/uL (0.00-0.03); Imm Gran Pct Auto 0.3 % (0.0-0.4); Lymphocytes Absolute Auto 2.5 X10*3/uL (1.2-4.9); Lymphocytes Percent Auto 24.1 % (20-40); Mean Corpuscular HGB Conc 34.3 g/dl (31.0-36.0); Mean Corpuscular Volume 87.3 fL (80.0-98.0); Mean Platelet Volume 10.1 fL (9.4-12.4); Monocytes Absolute Auto 0.9 X10*3/uL (0.1-1.2); Monocytes Percent Auto 8.3 % (2-11); Neutrophils Absolute Auto 6.9 x10*3/uL (2.0-8.3); Neutrophils Percent Auto 66.9 % (45-73); Platelet Count 210 X10*3/uL (160-400); Red Blood Count 5.27 X10*6/uL (4.60-5.80); White Blood Count 10.3 X10*3/uL (4.8-10.8)
[2024-11-28 08:00] LABS: Alanine Aminotransferase 26 U/L (0-40); Alkaline Phosphatase 60 U/L (39-117); Aspartate Amino Transferase 20 U/L (5-37); Bilirubin Direct 0.3 mg/dL (0.0-0.5); Bilirubin Total 0.6 mg/dL (0.0-1.0); Total Protein 7.1 g/dL (6.5-8.0)
[2024-11-28 08:12] LABS: Alanine Aminotransferase 27 U/L (0-40); Albumin Level 4.1 g/dL (3.5-5.0); Alkaline Phosphatase 61 U/L (39-117); Anion Gap 11 (12-20); Aspartate Amino Transferase 19 U/L (5-37); Bilirubin Total 0.6 mg/dL (0.0-1.0); Blood Urea Nitrogen 19 mg/dL (9-16); Calcium 9.4 mg/dL (8.4-10.2); Carbon Dioxide 28 mmol/L (22-29); Chloride 106 mmol/L (96-108); Cholesterol 161 mg/dL (<200); Estimated Glomerular Filt Rate > 60; Free T4 (Free Thyroxine) 0.94 ng/dL (0.71-1.85); Glucose Random 87 mg/dL (60-115); HDL Cholesterol 57 mg/dL (>40); LDL Cholesterol Calculated 86 mg/dL (<100); Magnesium 2.1 mg/dL (1.6-2.6); Phosphorus 3.6 mg/dL (2.7-4.5); Potassium 3.7 mmol/L (3.3-5.1); Sodium 141 mmol/L (135-145); Thyroid Stimulating Hormone 0.99 uIU/mL (0.32-4.0); Total Protein 7.3 g/dL (6.5-8.0); Triglycerides 90 mg/dL (<150)
[2024-11-28 08:30] LABS: Folate 9.4 ng/mL (> or = 4.0); Vitamin B12 471 pg/mL (200-900)
[2024-12-04 17:02] LABS: Chenodeoxycholic Acid 0.8 umol/L (< OR = 3.1); Cholic Acid <0.5 umol/L (< OR = 1.8); Deoxycholic Acid <0.5 umol/L (< OR = 2.4); Total Bile Acids <1.5 umol/L (< OR = 6.8)
[2024-12-05 19:18] LABS: FIB-ALT 20 U/L (9-46); FIB-Alpha-2-Macroglobulin 248 mg/dL (106-279); FIB-Apolipoprotein A1 156 mg/dL (94-176); FIB-GGT 17 U/L (3-70); FIB-Haptoglobin 149 mg/dL (43-212); FIB-Total Bilirubin 0.5 mg/dL (0.2-1.2); Liver Fibrosis Score 0.37; Liver Fibrosis Stage F1-F2; Nec Inflam Act Grade A0; Nec Inflam Act Score 0.09; Reference ID 5500688
== END 2024-11-28 06:49 | disposition home or self-care (01) ==
LOC: HO.LAB 06:48
PROVIDERS: Absent Provider Internal Medicine; PCP Internal Medicine; Visit Provider Internal Medicine
DX: E78.00 Pure hypercholesterolemia, unspecified (principal); C67.9 Malignant neoplasm of bladder, unspecified; L29.9 Pruritus, unspecified; Z12.5 Encounter for screening for malignant neoplasm of prostate
CPT/HCPCS: 36415; 80053; 80061; 80076; 81596; 82248; 82542; 82607; 82746; 83735; 84100; 84153; 84439; 84443; 85025

== ENCOUNTER 2024-12-09 08:39 | Outpatient (AMB) | payer MEDICARE, SELFPAY ==
[2024-12-09 08:49] VITALS: BP 118/62; PULSE 71; O2SAT 97; BMI 32.6
--- NOTE | 2024-12-09 08:49 | A.OFFPC_ITS ---
Vital Signs 12/09/24 08:49 Height 5 ft 6 in Weight 202 lb BMI 32.6 BP 118/62 Blood Pressure Location Lt brachial Position Sitting Pulse 71 Pulse Source Pulse Oximeter Pulse Oximetry (%) 97 Oxygen Delivery Method Room Air Intake Visit Reasons: Annual Exam - see comments Allergies dronedarone [From Multaq] Allergy (Mild, Verified 12/09/24 08:49) Rash amoxicillin [From Augmentin] Allergy (Verified 12/09/24 08:49) liver failure clavulanic acid [From Augmentin] Allergy (Verified 12/09/24 08:49) liver failure Penicillins Adverse Reaction (Intermediate, Verified 12/09/24 08:49) Unknown Medication List - Last Reconciled 12/09/24 by Any Jackson MD albuterol sulfate 1.25 mg inhalation Q4-6H PRN albuterol-budesonide 90-80 mcg/actuation (Airsupra) 2 inhalations inhalation BID PRN apixaban (Eliquis) 5 mg PO BID 90 days CPAP (CPAP Machine/Device) As directed docusate sodium (Colace) 100 mg PO DAILY fluticasone propion-salmeterol 250-50 mcg/dose (Wixela Inhub) 1 inh inhalation BID gemcitabine 1,000 mg IV QWEEK ipratropium bromide 1 spray intranasal DAILY PRN ipratropium-albuterol 0.5 mg-3 mg(2.5 mg base)/3 mL 3 mL inhalation Q4-6H PRN metoprolol tartrate 50 mg PO BID omeprazole 20 mg PO DAILY 90 days polyethylene glycol 3350 (Miralax) 17 grams PO DAILY simvastatin 40 mg PO BEDTIME Tobacco use date assessed: 12/09/24 Fall risk assessment: No Falls in past year Last assessed Fall Risk: 12/09/24 Dental Screening Dental Screen Date: 12/09/24 Did you have a dental visit in the last 12 months?: Yes Did you have a dental problem in the last 6 months where you did not have access to dental care?: No Was dental information given to patient?: Patient has dentist [facility] Medical History (Updated 12/09/24 @ 09:23 by Any Jackson MD) Acute respiratory disease Bladder cancer Atrial fibrillation SVT (supraventricular tachycardia) LBBB (left bundle branch block) PVC (premature ventricular contraction) Hypercholesterolemia Asthma COPD (chronic obstructive pulmonary disease) Jaundice ANALY on CPAP Cough Personal history of nicotine dependence History of COVID-19 History of small bowel obstruction GERD (gastroesophageal reflux disease) Erectile dysfunction Obesity (BMI 30-39.9) Surgical History (Updated 11/17/24 @ 11:43 by Lori Alexander) History of colonoscopy (~11/26/19) History of foot surgery (~2021) History of laparotomy (~2020) History of arthroplasty of right knee (~2020) History of meniscectomy of right knee (~2011) History of cataract surgery (~2020) History of appendectomy History of arthroplasty of left knee (~2019) History of meniscectomy of left knee (~2018) History of bladder surgery Hx of transurethral destruction of bladder lesion Family History Father Lung cancer Mother History of breast cancer Sister Multiple myeloma Other Cough Social History Household Members: Spouse Housing: House Are you a primary assurance services manager health care to a significant other at home: No Do you presently have visiting nurse or other home services: No Alcohol intake: former Patient Tobacco Use Status: Former Tobacco user Tobacco use type: Cigarette Years Smoked: (former smoker - onset 14yo, 1ppd x 46yrs, 45pyh, quit 2009) e-Cigarette/Vaping Use: Never Used Second Hand Smoke Exposure: No Advance Directives Date on File: 02/14/21 service: Yes ( Contrib - served in [employer]) Current occupational status: retired Current occupational exposures/hazards: Yes (was exposed to Agent [place] while serving in [employer]) Cognitive needs: No Hearing needs: Yes (hearing aide) Vision needs: No Questionnaire PHQ-9 Over the last 2 weeks, how often have you been bothered by any of the following problems? 1. Little interest or pleasure in doing things: not at all 2. Feeling down, depressed, or hopeless: not at all 3. Trouble falling or staying asleep, or sleeping too much: not at all 4. Feeling tired or having little energy: not at all 5. Poor appetite or overeating: not at all 6. Feeling bad about yourself - or that you are a failure or have let yourself or your family down: not at all 7. Trouble concentrating on things, such as reading the newspaper or watching television: not at all 8. Moving or speaking so slowly that other people could have noticed. Or the opposite - being so fidgety or restless that you have been moving around a lot more than usual: not at all 9. Thoughts that you would be better off or of hurting yourself in some way: not at all Total score: 0 Depression Screening Interpretation: Negative Depression Screening Done: Yes 53451 - PHQ-9 Billing: Yes Source: Developed by Drs. Darrian Watson, Megan Richardson, Alexandru Griffiths and colleagues, with an educational aydin from [employer]. Thrive Questionnaire Date Thrive assessed: 12/09/24 I am a: Patient What is your living situation today?: I have a steady place to live Within the past 12 months, did the food you bought not last and you didn't have the money to get more?: Never true Within the past 12 months, did you worry whether your food would run out before you got money to buy more?: Never true Do you have trouble paying for medicines?: No Do you have trouble getting transportation to medical appointments?: No Do you have trouble paying your heating and electricity bill?: No Do you have trouble taking care of your child, family member or friend?: No Do you have trouble with day-to-day activities such as bathing, preparing meals, shopping, managing finances, etc.?: No Are you currently unemployed and looking for a job?: No Are you interested in more education?: No Please select the resources that you would like help with: None Currently or been in a relationship where the following occur: No concerns reported THRIVE Score: 0 AUDIT C Alcohol Use Questionnaire (AUDIT-C) 1. How often do you have a drink containing alcohol?: Never 3. How often do you have six or more drinks on one occasion?: Never Total Score: 0 PARIS-7 AMB Questionnaire PARIS-7 Date PARIS - 7 assessed: 12/09/24 Feeling nervous, anxious, or on edge: 0 = Not at all Not being able to stop or control worryin = Not at all Worrying too much about different things: 0 = Not at all Trouble relaxin = Not at all Being so restless that it is hard to sit still: 0 = Not at all Becoming easily annoyed or irritable: 0 = Not at all Feeling afraid as if something awful might happen: 0 = Not at all Total PARIS-7 score (0-4 normal; 5-9 mild; 10-14 moderate; 15-21 severe): 0 Source: Developed by Drs. Darrian Watson, Megan Richardson, Alexandru Griffiths and colleagues, with an educational aydin from [employer]. PARIS-7 Assessment Billing PARIS-7 Assessment Tool: PARIS-7 Assessment 92162 Review of Systems Const Denies poor appetite and Denies weakness Eyes Denies no additional complaints ENT Reports Normal hearing present, Denies dizziness, Denies nasal congestion, Denies tinnitus and Denies sore throat Card Denies chest pain, Denies syncope, Denies rapid heart rate and Denies dyspnea Resp Denies cough and Denies dyspnea GI Denies change in stool character, Reports constipation, Denies diarrhea, Denies nausea and Denies vomiting Denies dysuria and Denies urinary frequency Neuro Reports Normal hearing present, Denies confusion, Denies dizziness, Denies syncope and Denies weakness Psych Denies confusion Physical exam (Primary Care) Vital Signs: Last Vital Signs Pulse 71 12/09/24 08:49 BP 118/62 12/09/24 08:49 Pulse Ox 97 12/09/24 08:49 Oxygen Delivery Method Room Air 12/09/24 08:49 BMI result Body Mass Index 32.6 Tobacco/Smoking Status: Tobacco use Status Tobacco use date assessed 12/09/24 12/09/24 08:53 Patient Tobacco Use Status Former Tobacco user 12/09/24 08:53 Tobacco use type Cigarette 12/09/24 08:53 e-Cigarette/Vaping Use Never Used 12/09/24 08:53 PHQ-9: PHQ-9 Score PHQ-9: Total score 0 12/09/24 09:23 Depression Screening Interpretation: Negative Thrive Assessment: Date of Thrive Assessment Date Thrive assessed 12/09/24 12/09/24 08:53 Currently or been in a relationship where the following occur: No concerns reported Const General: No confusion Orientation/consciousness: No confusion HENMT Head: Yes normocephalic Ears: external ears normal and TM's normal bilaterally Face and sinus: Yes normal facial exam Mouth: moist mucous membranes Throat: Yes tonsils normal Eyes Conjunctivae: conjunctivae normal Pupils: Equal, round and reactive pupils present and Pupil accommodation reflex normal Direct Ophthalmoscopy: normal light reflex Neck Neck: No lymphadenopathy Thyroid: Thyroid normal Chest Chest palpation & inspection: normal inspection of the chest Resp Effort & Inspection: normal respiratory effort and no audible wheezes Auscultation: clear to auscultation bilaterally, no crackles, no wheezes and lung sounds not diminished Cardio Rate: regular rate Rhythm: regular rhythm Peripheral pulses: radial pulses present and dorsalis pedis present GI Palpation (GI): no masses Auscultation: normal bowel sounds and normoactive bowel sounds Rectal Exam - Male: Yes deferred Skin General skin exam: no rashes or lesions noted Rashes: no rashes Neuro General: No confusion Cranial nerves: Yes Equal, round and reactive pupils present and Yes Normal hearing present Cognition (Neuro): normal cognition Gait exam (Neuro): Normal gait present Motor exam (neuro): 5/5 motor strength present throughout Deep tendon reflexes (DTR's): Right brachioradialis reflex intensity grade: 2+, Left brachioradialis reflex intensity grade: 2+, Right patellar reflex intensity grade: 2+ and Left patellar reflex intensity grade: 2+ Extrem General: No edema Coding Level of Care Code Est Pt Prev Care >65y(78896) Diagnoses Annual physical exam Z00.00 Bladder cancer C67.9 Atrial fibrillation I48.91 ANALY on CPAP G47.33; Z99.89 Chronic obstructive pulmonary disease with acute exacerbation J44.1 COPD type: COPD with acute exacerbation Personal history of nicotine dependence Z87.891 Hypercholesterolemia E78.00 Additional Codes PARIS-7 Assessment Billing - PARIS-7 Assessment Tool: PARIS-7 Assessment 58560 ([id number]) PHQ-9 - 73183 - PHQ-9 Billing: Yes ([id number]) Assessment & Plan Assessment & Plan (1) Annual physical exam: Code(s): Z00.00 - Encounter for general adult medical examination without abnormal findings Category: Medical Plan: Patient is advised to eat healthy, keep well hydrated, keep active and have adequate sleep. (2) Bladder cancer: Comment: TURBT 06/28 pTaLG, 06/29 Dr Mckeon pTaLG, 05/2016 BCG, 06/04 [place] pT1LG, 07/05 [place] pTaLG BCG induction Fulguration and mitomycin-C May 2022 TURBT May 2022 [facility], bladder surgery 07/2023 Code(s): C67.9 - Malignant neoplasm of bladder, unspecified Category: Medical Plan: Continue to follow-up with urology (3) Atrial fibrillation: Comment: Ablation done 2021 with pulmonary vein isolation Code(s): I48.91 - Unspecified atrial fibrillation Category: Medical Plan: Stable continue on anticoagulation (4) ANALY on CPAP: Comment: Known to have obstructive sleep apnea since 2017. He uses CPAP regularly every night - and sleeps better. Code(s): G47.33 - Obstructive sleep apnea (adult) (pediatric); Z99.89 - Dependence on other enabling machines and devices Category: Medical Plan: Continue to use the CPAP more than 4 hours a night and benefits from this. (5) COPD (chronic obstructive pulmonary disease): Code(s): J44.9 - Chronic obstructive pulmonary disease, unspecified Category: Medical Qualifiers: COPD type: COPD with acute exacerbation Qualified Code(s): J44.1 - Chronic obstructive pulmonary disease with (acute) exacerbation Plan: Patient follows up with Pulmonary presently on air supra (6) Personal history of nicotine dependence: Comment: (former smoker - onset 14yo, 1ppd x 46yrs, 45pyh, quit 2009, +fam hx lung ca) March 2022, January 2024 Code(s): Z87.891 - Personal history of nicotine dependence Category: Medical Plan: Patient is up-to-date with CT scan of the lungs (7) Hypercholesterolemia: Code(s): E78.00 - Pure hypercholesterolemia, unspecified Category: Medical Plan: Avoid fried foods, chicken skin, eggs, butter margarine, pastries and meat. Be it pork or beef they have a lot of cholesterol on simvastatin 40 mg once a day LDL goal of less than 130 and triglyceride of less than 150 Plan History of Present Illness The patient is a 74-year-old male presenting for a physical examination and routine follow-up. He has a significant medical history of Chronic Obstructive Pulmonary Disease (COPD) and is currently considering changes in management related to medication tolerance. His obstructive sleep apnea is managed with CPAP therapy, though alternative treatments are being explored. The patient also manages atrial fibrillation, hypercholesterolemia, and mild bronchial asthma efficiently with medication and has had positive follow-ups for his past bladder cancer. Additionally, the patient has noted pruritus believed to be related to his previous use of Dupixent, leading to the introduction of famotidine into his treatment regimen. He also has a medical history of potential kidney stones identified through CAT scan, which remains stable without new symptoms or management. Health Maintenance - Continued CPAP therapy for obstructive sleep apnea. - Routine surveillance for bladder cancer following negative cystoscopy results. - Manage hypercholesterolemia using simvastatin, with recent favorable lab reports. - Evaluated alternate options for obstructive sleep apnea management due to travel inconvenience with CPAP. - Considered discontinuation of Dupixent due to pruritus; initiated famotidine. Social History - Non-smoker and abstains from alcohol. - Engages in daily walking and pickleball for physical activity. - Family with interest in travel, encountering issues with CPAP during travel. Review of Systems - Respiratory: Reports no shortness of breath or recent acute respiratory events. - Cardiac: Denies chest pain, palpitations, or dizziness. - Gastrointestinal: Denies nausea, vomiting, or swallowing difficulties. - Genitourinary: Reports nocturia post-cystoscopy, subsiding to once per night. - Neurological: Denies loss of consciousness or coordination issues. - Auditory: Reports difficulty with hearing aids in noisy environments. Physical Exam General: Cooperative, healthy appearing, comfortable, no acute distress and well developed Orientation: Patient oriented x3 Limitations: No limitations Head: Normal to inspection Ears: Hearing aids used, hearing in crowded areas difficult Nose: Normal external nose present Face and sinus: Normal facial exam Eyes: Appearance normal, both eyes and all related structures; takes longer to adjust to light and dark Neck: Normal visual inspection and Yes full ROM Respiratory: Normal respiratory effort and able to speak in complete sentences. Clear to auscultation bilaterally Cardiovascular: Regular rate and rhythm. Normal S1 and S2 GI: Normal to inspection. Soft to palpation and nontender Skin: No rashes or lesions noted Neuro: Patient oriented x3 Extremities: Normal to inspection Results - Labs: Normal blood counts and renal function. - Lipid Profile: LDL at 86 mg/dL, HDL at 57 mg/dL. - PSA: 0.8 ng/mL, lower than previous. - Blood work results: Normal for folic acid and thyroid function. Plan In managing the patient's conditions, I have recommended discontinuing Trelegy for COPD and exploring alternatives due to its effects. CPAP remains the mainstay for obstructive sleep apnea, although other treatment options are considered given travel inconvenience. Atrial fibrillation is stable with no recent events post-ablation. Hypercholesterolemia management with simvastatin is validated by positive lab results and shall continue. The follow-up for bladder cancer is now on an extended interval post-negative cystoscopy. The patient's pruritus, thought to be related to Dupixent, will now be managed with famotidine. The PSA results are favorable, indicating good prostate health. Kidney stones identified earlier remain without symptoms, thus requiring only routine monitoring. Patient was informed and verbally consented to the use of an ambient scribe for clinic note documentation during this visit. Discussion Notes I discussed with the patient the management and alternatives associated with his current medical conditions. Dupixent was discontinued due to pruritus issues, and famotidine was introduced, with monitoring for its effectiveness. I addressed the inconvenience of CPAP therapy during travel related to obstructive sleep apnea and discussed exploring other potential treatments. The positive outcomes post-cystoscopy permitted extended surveillance intervals for bladder cancer. The patient was informed of the favorable PSA results and lipid profiles. My dialogue with the patient stressed the importance of maintaining regular follow-ups and monitoring of ongoing interventions and the option to seek immediate care should any new symptoms arise. Patient Instructions - Continue current use of CPAP for sleep apnea and discuss alternative treatments during follow-up. - Follow extended bladder cancer surveillance schedule post-negative cystoscopy. - Maintain current medications for cholesterol, and asthma control. - Monitor for any new symptoms related to hypertension or prostate health. - Engage in regular physical activity; walking and pickleball are encouraged. - Follow dietary guidelines and avoid smoking or alcohol. - Seek immediate care if acute symptoms like chest pain or severe shortness of breath occur.
== END 2024-12-09 09:52 | disposition home or self-care (01) ==
LOC: HO.HMCH 08:40
PROVIDERS: PCP Internal Medicine; Visit Provider Internal Medicine
DX: Z00.00 Encounter for general adult medical examination without abnormal findings (principal); C67.9 Malignant neoplasm of bladder, unspecified; I48.91 Unspecified atrial fibrillation; J44.1 Chronic obstructive pulmonary disease with (acute) exacerbation; G47.33 Obstructive sleep apnea (adult) (pediatric); Z99.89 Dependence on other enabling machines and devices; Z87.891 Personal history of nicotine dependence; E78.00 Pure hypercholesterolemia, unspecified

== ENCOUNTER → 2024-12-09 08:39 | Outpatient (BNVA) | payer MEDICARE, SELFPAY | PROVIDERS: PCP Internal Medicine; Visit Provider Internal Medicine | DX: Z00.00 Encounter for general adult medical examination without abnormal findings (principal); C67.9 Malignant neoplasm of bladder, unspecified; I48.91 Unspecified atrial fibrillation; G47.33 Obstructive sleep apnea (adult) (pediatric); Z99.89 Dependence on other enabling machines and devices; J44.1 Chronic obstructive pulmonary disease with (acute) exacerbation; E78.00 Pure hypercholesterolemia, unspecified; Z87.891 Personal history of nicotine dependence | CPT/HCPCS: 96127; 99397 ==

== ENCOUNTER 2024-12-30 16:09 | Outpatient (REF) | payer MEDICARE, SELFPAY ==
--- NOTE | ~2024-12-30 | CT_ITS ---
CLINICAL HISTORY: Z87.891 - Personal history of nicotine dependence --- Additional Notes or Special Instructions: 6m repeat LDCT - new 4mm RLL nodule on [address] lung cancer screening (LDCT) Comparison: CT/AR/SR - CT LUNG SCREENING - 01/29/24 14:05 EDT Technique: Axial CT images of the chest using low-dose technique. Referring provider counseled the patient on shared decision-making for LDCT screening. Additional counseling was provided on smoking cessation. Effective radiation dose total: DLP 116.4 mGycm, CTDIvol 3.3 mGy. Findings: Lung: Mild emphysema. Small pulmonary nodules: 2 mm in the right upper lobe series 3, image 74; 3 mm in the right upper lobe image 46; 2 mm in the left lower lobe image 98. Atelectasis of the lung base. Coronary artery calcifications: Moderate Limited upper abdomen: Limited evaluation of the left renal cyst. Other: None Impression: LungRADS 2 - Benign Appearance: Continue annual screening with low dose Chest CT in 12 months. ##L2## Category 1: Normal; continue annual screening Category 2: Benign appearance or behavior, continue annual screening Category 3: Probably benign, [address] recommended Category 4A: Suspicious, [address] recommended; may consider PET/CT Category 4B: Suspicious, Additional diagnostics and/or tissue sampling recommended Category 4X: Suspicious, Additional diagnostics and/or tissue sampling recommended Category 0: Recalls (incomplete screen due to Incomplete coverage, Noise, Respiratory motion, Expiration, Obscured by acute abnormality) This document has been electronically signed by: Joni Nick MD on 12/31/2024 13:42:05
== END 2024-12-30 16:10 | disposition home or self-care (01) ==
LOC: HO.CT 16:09
PROVIDERS: PCP Internal Medicine; Visit Provider Physician Assistant Medical
DX: Z87.891 Personal history of nicotine dependence (principal); R91.1 Solitary pulmonary nodule
CPT/HCPCS: 71250

== ENCOUNTER → 2024-12-30 16:10 | Outpatient (BNV) | payer MEDICARE, SELFPAY | PROVIDERS: PCP Internal Medicine; Visit Provider Nuclear Medicine | DX: Z12.2 Encounter for screening for malignant neoplasm of respiratory organs (principal); Z87.891 Personal history of nicotine dependence | CPT/HCPCS: 71250 ==

== ENCOUNTER 2025-01-06 08:13 | Outpatient (AMB) | payer MEDICARE, SELFPAY ==
[2025-01-06 08:18] VITALS: BP 127/72; PULSE 76; TEMP 36.9; O2SAT 90; BMI 33.3
--- NOTE | 2025-01-06 08:18 | MHC.OFFWIV ---
Intake Vital Signs 01/06/25 08:18 Height 5 ft 6 in Weight 206 lb 8 oz BMI 33.3 Intake Visit Reasons: EP-chills, fever, wheezing, body ache, headaches Patient Tobacco Use Status: Former Tobacco user Allergies dronedarone (From Multaq) Allergy (Mild, Verified 12/09/24 08:49) Rash amoxicillin (From Augmentin) Allergy (Verified 12/09/24 08:49) liver failure clavulanic acid (From Augmentin) Allergy (Verified 12/09/24 08:49) liver failure Penicillins Adverse Reaction (Intermediate, Verified 12/09/24 08:49) Unknown [facility] Medical History (Updated 12/09/24 @ 09:23 by Any Jackson MD) Acute respiratory disease Bladder cancer Atrial fibrillation SVT (supraventricular tachycardia) LBBB (left bundle branch block) PVC (premature ventricular contraction) Hypercholesterolemia Asthma COPD (chronic obstructive pulmonary disease) Jaundice ANALY on CPAP Cough Personal history of nicotine dependence History of COVID-19 History of small bowel obstruction GERD (gastroesophageal reflux disease) Erectile dysfunction Obesity (BMI 30-39.9) Surgical History (Updated 11/17/24 @ 11:43 by Lori Alexander) History of colonoscopy (~11/26/19) History of foot surgery (~2021) History of laparotomy (~2020) History of arthroplasty of right knee (~2020) History of meniscectomy of right knee (~2011) History of cataract surgery (~2020) History of appendectomy History of arthroplasty of left knee (~2019) History of meniscectomy of left knee (~2018) History of bladder surgery Hx of transurethral destruction of bladder lesion Family History Father Lung cancer Mother History of breast cancer Sister Multiple myeloma Other Cough Social History Household Members: Spouse Housing: House Are you a primary animal care taker to a significant other at home: No Do you presently have visiting nurse or other home services: No Alcohol intake: former Patient Tobacco Use Status: Former Tobacco user Tobacco use type: Cigarette Years Smoked: (former smoker - onset 14yo, 1ppd x 46yrs, 45pyh, quit 2009) e-Cigarette/Vaping Use: Never Used Second Hand Smoke Exposure: No Advance Directives Date on File: 02/14/21 service: Yes ( [employer] - served in [facility]) Current occupational status: retired Current occupational exposures/hazards: Yes (was exposed to Agent [place] while serving in [employer]) Cognitive needs: No Hearing needs: Yes (hearing aide) Vision needs: No Coding
--- NOTE | 2025-01-06 08:40 | AM.OFFWIN_ITS ---
Intake Vital Signs 01/06/25 08:18 01/06/25 08:50 Height 5 ft 6 in Weight 206 lb 8 oz BMI 33.3 BP 127/72 Blood Pressure Location Lt brachial Position Sitting Pulse 76 Pulse Source Pulse Oximeter Temp 98.4 F Temp Source Oral Pulse Oximetry (%) 90 L 94 Oxygen Delivery Method Room Air Room Air Intake Visit Reasons: EP-chills, fever, wheezing, body ache, headaches Patient Tobacco Use Status: Former Tobacco user Allergies dronedarone (From Multaq) Allergy (Mild, Verified 01/06/25 08:41) Rash amoxicillin (From Augmentin) Allergy (Verified 01/06/25 08:41) liver failure clavulanic acid (From Augmentin) Allergy (Verified 01/06/25 08:41) liver failure Penicillins Adverse Reaction (Intermediate, Verified 01/06/25 08:41) Unknown Do you need a note to return to daycare/school/sports/work: No HPI HPI Comments History of Present Illness Details History - The patient is a 75-year-old male pres enting with exacerbation of Chronic Obstructive Pulmonary Disease (COPD). - Reports persistent cough with green sp utum, worsened recently. - Has COPD, uses nebulizer and CPAP mach ine at night. - Experienced muscle aches, chills, susp ected fever, no temperature recorded. - Allergy to Dupixent, discontinued due to itching, under seismology teacher evaluation. - Allergic reactions to penicillin and s ulfonamides, resulted in jaundice. - Recent pneumonia vaccination to assess immune response. - Continues to have a constant cough wit h phlegm, congestion, and he gets SOB. - He has been using his inhalers at home . - He has been getting this on and off, t he last time was in Aug. - He quit smoking. He has no sick contac ts. - He denies fever but he had the chills and body aches. - Has been taking his medications at [facility]. Physical Exam General: Cooperative, healthy appearing, comfortable and no acute distress Orientation/consciousness: Patient oriented x3 Head: Normal to inspection Ears: Hearing grossly normal bilaterally, external ears normal and TM's normal bilaterally Nose: Normal external nose present, normal nares present, and no nasal discharge present. Face and sinus: Sinuses nontender to palpation. Mouth: Normal oral and palatal mucosa present and moist mucous membranes noted. Throat: Tonsils normal. Uvula is midline. Posterior oropharynx with erythema and no exudates. Eyes: Appearance normal, both eyes and all related structures Neck: Normal visual inspection, full ROM. No lymphadenopathy noted. Respiratory: Wheezing noted. Clear to auscultation bilaterally. Normal r espiratory effort, able to speak in complete sentences. No respiratory distress, not tachypneic, no tripod positioning and no use of accessory muscles. Cardiovascular: Regular rate and rhythm. Normal S1 and S2 Skin: No rashes or lesions noted VSS, pt well appearing Patient was informed and verbally consented to the use of an ambient scribe for clinic note documentation during this visit [facility] Medical History (Updated 01/06/25 @ 09:17 by Ana Viera PA-C) Acute respiratory disease Bladder cancer Atrial fibrillation SVT (supraventricular tachycardia) LBBB (left bundle branch block) PVC (premature ventricular contraction) Hypercholesterolemia Asthma COPD (chronic obstructive pulmonary disease) Jaundice ANALY on CPAP Cough Personal history of nicotine dependence History of COVID-19 History of small bowel obstruction GERD (gastroesophageal reflux disease) Erectile dysfunction Obesity (BMI 30-39.9) Surgical History (Updated 11/17/24 @ 11:43 by Lori Alexander) History of colonoscopy (~11/26/19) History of foot surgery (~2021) History of laparotomy (~2020) History of arthroplasty of right knee (~2020) History of meniscectomy of right knee (~2011) History of cataract surgery (~2020) History of appendectomy History of arthroplasty of left knee (~2019) History of meniscectomy of left knee (~2018) History of bladder surgery Hx of transurethral destruction of bladder lesion Family History Father Lung cancer Mother History of breast cancer Sister Multiple myeloma Other Cough Social History Household Members: Spouse Housing: House Are you a primary pet care technician to a significant other at home: No Do you presently have visiting nurse or other home services: No Alcohol intake: former Patient Tobacco Use Status: Former Tobacco user Tobacco use type: Cigarette Years Smoked: (former smoker - onset 14yo, 1ppd x 46yrs, 45pyh, quit 2009) e-Cigarette/Vaping Use: Never Used Second Hand Smoke Exposure: No Advance Directives Date on File: 02/14/21 service: Yes ( [employer] - served in [employer]) Current occupational status: retired Current occupational exposures/hazards: Yes (was exposed to Agent [place] while serving in [employer]) Cognitive needs: No Hearing needs: Yes (hearing aide) Vision needs: No Review of Systems Const All systems reviewed & are unremarkable except as noted in HPI and below Physical Exam Vital Signs: Last Vital Signs Temp 98.4 F 01/06/25 08:18 Pulse 76 01/06/25 08:18 BP 127/72 01/06/25 08:18 Pulse Ox 94 01/06/25 08:50 Oxygen Delivery Method Room Air 01/06/25 08:50 BMI result Body Mass Index 33.3 Assessment & Plan Assessment & Plan (1) Cough: Comment: Code(s): R05.9 - Cough, unspecified Qualifiers: Cough type: chronic Qualified Code(s): R05.3 - Chronic cough Plan Most likely intermittent asthma vs COPD exacerbaction vs URI vs bronchitis vs emphysema Plan - Initiate antibiotics due to concern for bacterial infection - Prescribe prednisone for COPD exacerbation management. - Consider resuming Dupixent pending seismology teacher's advice. - Continue use of CPAP and nebulizer as needed. - Tessalon perles as needed for cough - Follow-up with seismology teacher for further evaluation and management of allergies. Medications: New prednisone 50 mg PO QAM 5 tabs 0RF benzonatate 100 mg PO bid-tid PRN 21 caps 0RF Cough 7 days doxycycline hyclate 100 mg PO BID 20 tabs 0RF 10 days Coding Level of Care Code Est Pt Level 4 (35020) Diagnoses Chronic cough R05.3 Cough type: chronic
[2025-01-06 08:50] VITALS: O2SAT 94
== END 2025-01-06 09:15 | disposition home or self-care (01) ==
PROVIDERS: PCP Internal Medicine; Visit Provider Physician Assistant Medical
DX: R05.3 Chronic cough (principal)

== ENCOUNTER → 2025-01-06 08:13 | Outpatient (BNVA) | payer MEDICARE, SELFPAY | PROVIDERS: PCP Internal Medicine; Visit Provider Physician Assistant Medical | DX: R05.3 Chronic cough (principal) | CPT/HCPCS: 99212 ==

== ENCOUNTER 2025-01-26 10:32 | Day surgery (SDC) | payer MEDICARE, SELFPAY ==
[2025-01-22 14:45] VITALS: BMI 32.6
--- NOTE | 2025-01-23 12:50 | P.CONAN_ITS ---
Documented by User: Sweta Calderon NP 01/23/25 13:38 HPI - Anesthesia Eval Consult details Narrative: 75yo M for Upper Endoscopy and Colonoscopy Eliquis for afib, also s/p pulmo vein isolation. Follows [facility] Cardiology - stable at last office visit 11/2023. Routine f/u sched for 03/2025 [facility] Active Problems Active Problems: All Active Problems Right shoulder pain (Acute) Annual physical exam (Acute) Influenza (Acute) Acute upper respiratory infection (Acute) Acute bacterial sinusitis (Acute) Sinusitis (Acute) Hearing difficulty of both ears (Acute) Encounter for subsequent annual wellness visit (AWV) in Medicare patient (Acute) Chronic UTI (urinary tract infection) (Acute) Cough (Acute) Allergic dermatitis (Acute) Allergic rhinitis (Acute) Acute respiratory disease (Acute) Bladder cancer (Acute) Atrial fibrillation (Acute) SVT (supraventricular tachycardia) (Acute) LBBB (left bundle branch block) (Acute) PVC (premature ventricular contraction) (Acute) Hypercholesterolemia (Acute) ANALY on CPAP (Acute) COPD (chronic obstructive pulmonary disease) (Acute) Asthma (Acute) Personal history of nicotine dependence (Acute) Jaundice (Acute) Past Medical History Medical History Bladder cancer Atrial fibrillation SVT (supraventricular tachycardia) LBBB (left bundle branch block) PVC (premature ventricular contraction) Hypercholesterolemia Asthma COPD (chronic obstructive pulmonary disease) Jaundice ANALY on CPAP Personal history of nicotine dependence History of COVID-19 History of small bowel obstruction GERD (gastroesophageal reflux disease) Erectile dysfunction Obesity (BMI 30-39.9) Family History Family History Father Lung cancer Mother History of breast cancer Sister Multiple myeloma Other Cough Family history of problems with anesthesia: No Surgical History Surgical History History of colonoscopy (~11/26/19) History of foot surgery (~2021) History of laparotomy (~2020) History of arthroplasty of right knee (~2020) History of meniscectomy of right knee (~2011) History of cataract surgery (~2020) History of appendectomy History of arthroplasty of left knee (~2019) History of meniscectomy of left knee (~2019) History of bladder surgery Hx of transurethral destruction of bladder lesion History of Problems with Anesthesia: No Social History Social History Household Members: Spouse Housing: House Are you a primary director of healthcare systems to a significant other at home: No Do you presently have visiting nurse or other home services: No Alcohol intake: former Patient Tobacco Use Status: Former Tobacco user Tobacco use type: Cigarette Years Smoked: (former smoker - onset 14yo, 1ppd x 46yrs, 45pyh, quit 2009) e-Cigarette/Vaping Use: Never Used Second Hand Smoke Exposure: No Have you been hit, kicked, punched, or otherwise hurt by someone within the past year? If so, by whom?: No Are you DNR?: No Advance Directives: No Advance Directives Information Provided: Yes Advance Directives Date on File: 02/14/21 service: Yes ([employer] - served in [facility]) Current occupational status: retired Current occupational exposures/hazards: Yes (was exposed to Agent Trigg while serving in [employer]) Cognitive needs: No Hearing needs: Yes (hearing aide) Vision needs: No Meds Allergies Allergy/AdvReac Type Severity Reaction Status Date / Time dronedarone (From Multaq) Allergy Mild Rash Verified 01/06/25 08:41 amoxicillin (From Augmentin) Allergy liver Verified 01/06/25 08:41 failure clavulanic acid (From Allergy liver Verified 01/06/25 08:41 Augmentin) failure Penicillins AdvReac Intermediate Unknown Verified 01/06/25 08:41 Home Medications ?Medication ?Instructions ?Recorded ?Confirmed ?Last Taken ?Type docusate sodium 100 mg capsule 100 mg PO DAILY 4 01/22/25 Unknown History (Colace) gemcitabine 200 mg intravenous 1,000 mg IV QWEEK 12/0301/22/25 Unknown History solution albuterol sulfate 1.25 mg/3 mL 1.25 mg inhalation Q4-6 H PRN 05/19/24 01/22/25 Unknown History solution for nebulization Shortness Of Breath Or Wheez ing albuterol 90 mcg-budesonide 80 2 inh inhalation BID ID N Shortness 09/18/24 01/22/25 Unknown History mcg/actuation HFA aerosol inhaler Of Breath Or Wheezin g (Airsupra) ipratropium bromide 21 mcg (0.03 1 spray intranasal DA MARY ANNE PRN Nasal 09/18/24 01/22/25 Unknown History %) nasal spray Congestion fluticasone 250 mcg-salmeterol 50 1 inh inhalation BID 12/09/24 01/22/25 Unknown History mcg/dose blistr powdr for inhalation (Wixela Inhub) hydroxyzine HCl 10 mg tablet 10 - 30 mg PO BEDTIME itc h 01/06/25 01/26/25 Unknown History Exam Height,Weight and Vital Signs: Height 5 ft 6 in Weight 91.626 kg Assessment and Plan Assessment Anesthesia Assessment: Chart Reviewed Final Anesthetic Review Family History of Problems with Anesthesia: No History of Problems with Anesthesia: No Documented by User: Dian Denny MD 01/26/25 13:36 [facility] Past Medical History Medical History Bladder cancer Atrial fibrillation SVT (supraventricular tachycardia) LBBB (left bundle branch block) PVC (premature ventricular contraction) Hypercholesterolemia Asthma COPD (chronic obstructive pulmonary disease) Jaundice ANALY on CPAP Personal history of nicotine dependence History of COVID-19 History of small bowel obstruction GERD (gastroesophageal reflux disease) Erectile dysfunction Obesity (BMI 30-39.9) Family History Family History Father Lung cancer Mother History of breast cancer Sister Multiple myeloma Other Cough Surgical History Surgical History History of colonoscopy (~11/26/19) History of foot surgery (~2021) History of laparotomy (~2020) History of arthroplasty of right knee (~2020) History of meniscectomy of right knee (~2011) History of cataract surgery (~2020) History of appendectomy History of arthroplasty of left knee (~2019) History of meniscectomy of left knee (~2018) History of bladder surgery Hx of transurethral destruction of bladder lesion Social History Social History Household Members: Spouse Housing: House Are you a primary director of healthcare systems to a significant other at home: No Do you presently have visiting nurse or other home services: No Alcohol intake: former Patient Tobacco Use Status: Former Tobacco user Tobacco use type: Cigarette Years Smoked: (former smoker - onset 14yo, 1ppd x 46yrs, 45pyh, quit 2009) e-Cigarette/Vaping Use: Never Used Second Hand Smoke Exposure: No Have you been hit, kicked, punched, or otherwise hurt by someone within the past year? If so, by whom?: No Are you DNR?: No Advance Directives: No Advance Directives Information Provided: Yes Advance Directives Date on File: 02/14/21 service: Yes ([employer] - served in [facility]) Current occupational status: retired Current occupational exposures/hazards: Yes (was exposed to Agent Trigg while serving in [employer]) Cognitive needs: No Hearing needs: Yes (hearing aide) Vision needs: No Meds Allergies Allergy/AdvReac Type Severity Reaction Status Date / Time dronedarone (From Multaq) Allergy Mild Rash Verified 01/06/25 08:41 amoxicillin (From Augmentin) Allergy liver Verified 01/06/25 08:41 failure clavulanic acid (From Allergy liver Verified 01/06/25 08:41 Augmentin) failure Penicillins AdvReac Intermediate Unknown Verified 01/06/25 08:41 Home Medications ?Medication ?Instructions ?Recorded ?Confirmed ?Last Taken ?Type docusate sodium 100 mg capsule 100 mg PO DAILY 4 01/22/25 Unknown History (Colace) gemcitabine 200 mg intravenous 1,000 mg IV QWEEK 12/0301/22/25 Unknown History solution albuterol sulfate 1.25 mg/3 mL 1.25 mg inhalation Q4-6 H PRN 05/19/24 01/22/25 Unknown History solution for nebulization Shortness Of Breath Or Wheez ing albuterol 90 mcg-budesonide 80 2 inh inhalation BID ID N Shortness 09/18/24 01/22/25 Unknown History mcg/actuation HFA aerosol inhaler Of Breath Or Wheezin g (Airsupra) ipratropium bromide 21 mcg (0.03 1 spray intranasal DA MARY ANNE PRN Nasal 09/18/24 01/22/25 Unknown History %) nasal spray Congestion fluticasone 250 mcg-salmeterol 50 1 inh inhalation BID 12/09/24 01/22/25 Unknown History mcg/dose blistr powdr for inhalation (Wixela Inhub) hydroxyzine HCl 10 mg tablet 10 - 30 mg PO BEDTIME itc h 01/06/25 01/26/25 Unknown History Exam Airway Mallampati Class: II TM Dist: >3cm Neck ROM: Full Heart: rrr Lungs: cta Assessment and Plan Assessment Anesthesia Assessment: Anesthesia Plan Discussed Final Anesthetic Review NPO: Yes ASA Class: III Final Preanesthetic Review: No Changes in Pt Med Stat, Meds/Allgs Chart Reviewed, Consent Obtained/Reviewed and Anes Risks/Benef Reviewed Patient Risk: Intermediate Procedure Risk: Low Anesthetic Plan Anesthetic Plan: MAC: Disposition: Standard PACU
[2025-01-26 11:41] VITALS: BP 109/75; PULSE 69; RESP 18; TEMP 36.2; O2SAT 95; BMI 31.8
[2025-01-26] MEDS: Lactated Ringers 1,000 ML 100 ML IVCONT (12:01)
[2025-01-26 14:40] VITALS: BP 98/64; PULSE 64; RESP 18; TEMP 36.8; O2SAT 96
--- NOTE | 2025-01-26 14:45 | PM.OP ---
Brief Operative Note Date of Service: 01/26/25 Pre-op diagnosis: Screening Post-op diagnosis: other (Polyps) Procedure: Colonoscopy to the cecum and TI with hot snare polypectomies, cold snare polypectomies, and bx/removal of polyp, and placement of a total of 6 Resolution clips Surgeon: Darrian Khan MD Anesthesia: MAC Was an Movable Bulkhead Installer used for this Procedure?: No Estimated blood loss (mL): 2.0 Pathology: other (A. Ascending colon polyps B. Transverse colon polyps C. Polyp at 40cm D. Polyp at 20cm) Condition: stable Disposition: PACU
[2025-01-26 14:55] VITALS: BP 119/80; PULSE 71; RESP 18; O2SAT 94
[2025-01-26 15:10] VITALS: BP 126/86; PULSE 70; RESP 18; TEMP 36.6; O2SAT 96
--- NOTE | 2025-01-27 01:35 | OP_ITS ---
DATE OF SERVICE: 01/26/2025 SURGEON: Darrian Khan MD INDICATIONS: The patient presents for evaluation of colorectal cancer screening and personal history of tubular adenoma of the colon. Full consent was obtained from him for this, including risks of bleeding and perforation PREOPERATIVE DIAGNOSIS: POSTOPERATIVE DIAGNOSIS: PROCEDURE PERFORMED: ESTIMATED BLOOD LOSS: COMPLICATIONS: ANESTHESIA: Medication used, monitored anesthesia care. ASSISTANTS: SPECIMENS: PREOPERATIVE DIAGNOSES: Colorectal cancer screening and personal history of colon polyps. POSTOPERATIVE DIAGNOSES: Colorectal cancer screening, personal history of colon polyps, multiple colon polyps, diverticulosis, and internal hemorrhoids. PROCEDURES PERFORMED: Colonoscopy to the cecum and terminal ileum with multiple hot snare polypectomies and cold snare polypectomies, and biopsy and removal of a polyp. Multiple resolution clips were applied to the polypectomy sites as well. DESCRIPTION OF PROCEDURE: The patient was placed in the left lateral decubitus position. The digital rectal exam revealed no abnormalities. The [employer] video pediatric colonoscope was entered into the rectum and advanced easily to the cecum. Once in the cecum, I did identify cecal pouch with appendiceal orifice and normal-appearing ileocecal valve. The terminal ileum was cannulated and appeared normal. The scope was withdrawn back in the colon. The entire cecum and ileocecal valve appeared normal. The scope was then slowly withdrawn assessing all mucosal surfaces carefully. Preparation was very good for the most part, but there were areas of some liquid stool, which were irrigated and suctioned as best as possible. In the proximal ascending colon opposite the ileocecal valve were 2 polyps, one was approximately 6 to 8 mm in diameter and was removed by cold snare polypectomy. The other polyp was 10 to 12 mm and was removed by hot snare polypectomy. Both polypectomy sites appeared clean, and without any sign of residual polyp nor significant bleeding. A single resolution clip was applied to each polypectomy site with good deployment and good hemostasis. In the transverse colon, was a flat 3 mm polyp, which was biopsied and completely removed with cold biopsy forceps. Also, in the transverse colon, was an approximately 6 mm polyp, which was removed by cold snare polypectomy and recovered by suction. The polypectomy site appeared clean, without any sign of residual polyp nor significant bleeding. A single resolution clip was applied to that polypectomy site with good deployment and good hemostasis. At 40 cm, was an approximately 12 mm polyp, which was removed by hot snare polypectomy and recovered by suction. The polypectomy site appeared clean, without any sign of residual polyp nor bleeding. Two resolution clips were applied to that polypectomy site with good deployment and good hemostasis. At 20 cm, was an approximately 6 mm polyp, which was removed by cold snare polypectomy and recovered by suction. The polypectomy site appeared clean, without any sign of residual polyp nor significant bleeding. A single ultra resolution clip was applied to that polypectomy site with good deployment and good hemostasis. I did not visualize any other polyps, colitis, nor angiodysplasia. There was a mild amount of sigmoid diverticulosis. In the rectum, scope was retroflexed visualizing internal hemorrhoids, but no other pathology. The rectal mucosa appeared normal. The scope was straightened and withdrawn from the patient. He tolerated the procedure well and was returned to recovery area in stable condition. IMPRESSION: 1. Multiple colon polyps. 2. Diverticulosis. 3. Internal hemorrhoids. PLAN: The results of the pathology will be checked. He was advised to resume his Eliquis in 72 hours. He was advised to stay off all aspirin and NSAIDs long-term while on Eliquis. Given his age and the fact that he would be at least 78 years old when his next colonoscopy would be due, I would be inclined to hold off on any further screening colonoscopies. He was advised to call me as needed. This has been discussed with his . MD OLEKSANDR Lino/ALDEN / [phone] JOCE
== END 2025-01-26 15:50 | disposition home or self-care (01) ==
PROVIDERS: PCP Internal Medicine; Visit Provider Internal Medicine
PROC: 0DJD8ZZ Inspection of Lower Intestinal Tract, Via Natural or Artificial Opening Endoscopic (ICD-10-PCS; CPT 45378; principal; 2025-01-26 13:30)
DX: Z12.11 Encounter for screening for malignant neoplasm of colon (principal); Z86.0101 Personal history of adenomatous and serrated colon polyps; D12.2 Benign neoplasm of ascending colon; D12.3 Benign neoplasm of transverse colon; D12.5 Benign neoplasm of sigmoid colon; K57.30 Diverticulosis of large intestine without perforation or abscess without bleeding; K64.8 Other hemorrhoids; I48.91 Unspecified atrial fibrillation; I10 Essential (primary) hypertension; E78.5 Hyperlipidemia, unspecified; K21.9 Gastro-esophageal reflux disease without esophagitis; G47.33 Obstructive sleep apnea (adult) (pediatric); J44.9 Chronic obstructive pulmonary disease, unspecified; C67.9 Malignant neoplasm of bladder, unspecified; L30.9 Dermatitis, unspecified; L29.9 Pruritus, unspecified; Z79.01 Long term (current) use of anticoagulants; Z79.51 Long term (current) use of inhaled steroids; Z79.899 Other long term (current) drug therapy; Z79.620 Long term (current) use of immunosuppressive biologic; Z99.89 Dependence on other enabling machines and devices; Z98.890 Other specified postprocedural states; Z87.891 Personal history of nicotine dependence
CPT/HCPCS: 45385; 45380; 88305; J2003; J2704

== ENCOUNTER 2025-01-28 07:29 | Outpatient (AMB) | payer MEDICARE, SELFPAY ==
--- OUTSIDE RECORDS SUMMARY | 2025-01-26 08:20 | XMS_ITS ---
Author Organization [facility] Address [address] [place] [address] Care Team Providers Care Management Coordinator Name Role Phone Any Jackson MD Primary Care Provider Darrian Galvez [phone] REASON FOR VISIT screening,hx polyps Encounters Encounter Location Date Provider Diagnosis [facility] Outpatient [address] [place] [phone] 01/26/2025 Darrian Khan Plan Of Treatment No Information Progress Notes * GENEVIEVE ARNOLD JrDOB: (75 yo M)Acc No.[id number]:01/26/2025 COLON WITH MAC Patient: Neyda WHITTAKERGENEVIEVE Jr Provider: Fang Khan MD :1950 A ge:75 Y S ex:Male Date:01/26/2025 Address:[facility] [address], [id number] Pcp:Any Jackson MD Subjective: * Chief Complaints: * 1 . Screening,hx polyps. * Medical History: Objective: * Vitals: Assessment: Plan: * Treatment: * * The named appointment provid er may or may not be the originator of this progress note, and it is not deemed complete until electronically signed by the appointment provider. Sign off status: Pending * Provider: Fagn Khan MD Date: 01/26/2025 Generated for Printi ng/Faxing/eTransmitting on: 01/28/2025 07:32 AM EDT
--- OUTSIDE RECORDS SUMMARY | 2025-01-28 07:32 | XMS_ITS | Patient Health Record ---
Author Organization [facility] Address [address] [place] [address] Care Team Providers Care Watch Repairer Name Role Phone yanet ly Primary Care Provider Unavailabl e Allergies Allergen (clinical drug ingredient) Drug/Non Drug Allergy documented on EMR Reaction Allergy Type Onset Date Status dronedarone Multaq rash Drug Allergy Activ e Reason For Referral No Information Medications Medication SIG (Take, Route, Frequency, Duration) Notes Start Date End Date Status Ipratropium Stanton 0.03 % 2 sprays in e ach [...] Problem Status W/U Status Risk Notes Problem [id number] Hallux rigidus o f right foot (M20.21) Active confirmed Problem [id number] Anticoagulant long-term use (Z79.01) Active confirmed Plan [...] Date Coverage End Date [employer] Medicare Adv-18143 [address] [address] [place] [phone] [id number] Volodymyr Richards Self - patient is the [...] X 2 (Pfizer) and 3 franco ters ([employer]) COPD Jaundice X 1 month E. Coli [...]
--- NOTE | 2025-01-28 07:45 | MHC.OFFVIS ---
Intake Visit Reasons: IMPORT DISPATCHER- Right Shoulder Pain Intake Note: Volodymyr is a 75 year old right hand dominant male who presents with complaints of intermittent right shoulder pain and stiffness. He denies any weakness. He has tried Tylenol and Biofreeze which gave him mild relief. He notices the discomfort mostly when he is reaching into the back seat of his truck. He has not had a cortisone injection given into his shoulder. Allergies dronedarone (From Multaq) Allergy (Mild, Verified 01/28/25 07:54) Rash amoxicillin (From Augmentin) Allergy (Verified 01/28/25 07:54) liver failure clavulanic acid (From Augmentin) Allergy (Verified 01/28/25 07:54) liver failure Penicillins Adverse Reaction (Intermediate, Verified 01/28/25 07:54) Unknown Medication List - Last Reconciled 01/28/25 by Justen Mccormick MD albuterol sulfate 1.25 mg inhalation Q4-6H PRN albuterol-budesonide 90-80 mcg/actuation (Airsupra) 2 inhalations inhalation BID PRN apixaban (Eliquis) 5 mg PO BID 90 days CPAP (CPAP Machine/Device) As directed docusate sodium (Colace) 100 mg PO DAILY fluticasone propion-salmeterol 250-50 mcg/dose (Wixela Inhub) 1 inh inhalation BID gemcitabine 1,000 mg IV QWEEK hydroxyzine HCl 10 - 30 mg PO BEDTIME ipratropium bromide 1 spray intranasal DAILY PRN ipratropium-albuterol 0.5 mg-3 mg(2.5 mg base)/3 mL 3 mL inhalation Q4-6H PRN metoprolol tartrate 50 mg PO BID omeprazole 20 mg PO DAILY 90 days simvastatin 40 mg PO BEDTIME [facility] Medical History Bladder cancer Atrial fibrillation SVT (supraventricular tachycardia) LBBB (left bundle branch block) PVC (premature ventricular contraction) Hypercholesterolemia Asthma COPD (chronic obstructive pulmonary disease) Jaundice ANALY on CPAP Personal history of nicotine dependence History of COVID-19 History of small bowel obstruction GERD (gastroesophageal reflux disease) Erectile dysfunction Obesity (BMI 30-39.9) Surgical History History of colonoscopy (~11/26/19) History of foot surgery (~2021) History of laparotomy (~2020) History of arthroplasty of right knee (~2020) History of meniscectomy of right knee (~2011) History of cataract surgery (~2020) History of appendectomy History of arthroplasty of left knee (~2019) History of meniscectomy of left knee (~2018) History of bladder surgery Hx of transurethral destruction of bladder lesion Family History Father Lung cancer Mother History of breast cancer Sister Multiple myeloma Other Cough Social History Household Members: Spouse Housing: House Are you a primary insurance healthcare representative to a significant other at home: No Do you presently have visiting nurse or other home services: No Alcohol intake: former Patient Tobacco Use Status: Former Tobacco user Tobacco use type: Cigarette Years Smoked: (former smoker - onset 14yo, 1ppd x 46yrs, 45pyh, quit 2009) e-Cigarette/Vaping Use: Never Used Second Hand Smoke Exposure: No Advance Directives Date on File: 02/14/21 service: Yes ( [employer] - served in [employer]) Current occupational status: retired Current occupational exposures/hazards: Yes (was exposed to Agent [place] while serving in [employer]) Cognitive needs: No Hearing needs: Yes (hearing aide) Vision needs: No Physical Exam Const Other: Well-nourished well-developed very friendly male awake alert and oriented x3 in no acute distress Extrem Other: Bilateral upper extremity examination shows good capillary refill, no skin lesions noted, normal sensation light touch Right shoulder examination shows decreased range of motion when compared to his left shoulder, 4+ out of 5 strength with supraspinatus testing, positive impingement signs, tenderness over his acromioclavicular joint, no instability Results Reviewed Results Reviewed: X-rays of the patient's right shoulder taken today show severe acromioclavicular joint narrowing, a type 2 acromion, no acute bony abnormalities Assessment & Plan Assessment & Plan (1) Impingement of right shoulder: Code(s): M25.811 - Other specified joint disorders, right shoulder Category: Medical Plan Mr. Richards presents with right shoulder pain due to impingement syndrome. I had a lengthy discussion with the patient regarding the treatment options. At this point the patient's symptoms are tolerable to him. He will continue with his range of motion exercises. He will follow up with me on an as-needed basis should his symptoms worsen in any way. Feel free to call me at any time should questions regarding his orthopedic management arise. Thank you very much for asking me to see this very friendly gentleman. I spent 20 minutes in reviewing the patient's records and imaging studies, seeing the patient and documenting in the medical record. Orders: Orders XR shoulder RT min 2V Today M25.511 - Pain in right shoulder Coding Level of Care Code New Pt Level 3 (11742) Complex EM visit Add On G2211 Diagnoses Impingement of right shoulder M25.811
== END 2025-01-28 08:10 | disposition home or self-care (01) ==
LOC: HO.HOS 07:30
PROVIDERS: PCP Internal Medicine; Visit Provider Orthopaedic Surgery
DX: M25.811 Other specified joint disorders, right shoulder (principal)
CPT/HCPCS: 99203; G2211

== ENCOUNTER → 2025-01-28 07:46 | Outpatient (BNV) | payer MEDICARE, SELFPAY | PROVIDERS: Visit Provider Radiology Diagnostic Radiology | DX: M19.011 Primary osteoarthritis, right shoulder (principal) | CPT/HCPCS: 73030 ==

== ENCOUNTER 2025-01-28 08:43 | Outpatient (REF) | payer MEDICARE, SELFPAY ==
--- OUTSIDE RECORDS SUMMARY | 2025-01-26 08:20 | XMS_ITS ---
Author Organization [facility] Address [address] [place] [address] Care Team Providers Care Laser Engineer Name Role Phone Any Jackson MD Primary Care Provider Darrina Galvez [phone] REASON FOR VISIT screening,hx polyps Encounters Encounter Location Date Provider Diagnosis [facility] [place] [address] [place] [phone] 01/26/2025 Darrian Khan Plan Of Treatment No Information Progress Notes * GENEVIEVE ARNOLD JrDOB: (75 yo M)Acc No.[id number]:01/26/2025 COLON WITH MAC Patient: Neyda WHITTAKERGENEVIEVE Jr Provider: Fang Khan MD :1950 A ge:75 Y S ex:Male Date:01/26/2025 Address:[facility] [address], [facility] [place] Pcp:Any Jackson MD Subjective: * Chief Complaints: * 1 . Screening,hx polyps. * Medical History: Objective: * Vitals: Assessment: Plan: * Treatment: * * The named appointment provid er may or may not be the originator of this progress note, and it is not deemed complete until electronically signed by the appointment provider. Sign off status: Pending * Provider: Fang Khan MD Date: 01/26/2025 Generated for Printi ng/Faxing/eTransmitting on: 01/29/2025 08:53 AM EDT
--- NOTE | ~2025-01-28 | XR_ITS ---
EXAMINATION: XR SHOULDER 2 OR MORE VIEWS RIGHT HISTORY: M25.511 - Pain in right shoulder COMPARISON: Comparison is made with the prior examination dated 11/11/2012. FINDINGS: Two views of the right shoulder are submitted. Osseous mineralization is normal. There is no fracture or dislocation. There is mild degenerative change of the glenohumeral and acromioclavicular joints with osteophyte formation. A soft tissue calcification adjacent to the greater tuberosity of the humerus is likely related to the rotator cuff. XR/XR shoulder RT min 2V IMPRESSION: Degenerative changes of the right shoulder as described. Electronically signed by: Darrian Logan MD 01/28/2025 08:08 AM EDT
--- OUTSIDE RECORDS SUMMARY | 2025-01-29 08:53 | XMS_ITS | Patient Health Record ---
Author Organization [facility] Address [address] [place] [address] Care Team Providers Care Cat Operator Name Role Phone yanet ly Primary Care Provider Unavailabl e Allergies Allergen (clinical drug ingredient) Drug/Non Drug Allergy documented on EMR Reaction Allergy Type Onset Date Status dronedarone Multaq rash Drug Allergy Activ e Reason For Referral No Information Medications Medication SIG (Take, Route, Frequency, Duration) Notes Start Date End Date Status Ipratropium Atkinson 0.03 % 2 sprays in e ach [...] Problem Status W/U Status Risk Notes Problem [id number] Hallux rigidus o f right foot (M20.21) Active confirmed Problem 590969882 Anticoagulant long-term use (Z79.01) Active confirmed Plan [...] Date Coverage End Date [employer] Medicare Adv-28356 [address] [address] [place] [phone] [id number] [id number] Volodymyr Richards Self - patient is the [...] X 2 (Pfizer) and 3 franco ters ([employer]) COPD Jaundice X 1 month E. Coli [...]
== END 2025-01-28 08:44 | disposition home or self-care (01) ==
LOC: HO.HOSX 08:43
PROVIDERS: Visit Provider Orthopaedic Surgery
DX: M25.811 Other specified joint disorders, right shoulder (principal); M25.511 Pain in right shoulder
CPT/HCPCS: 73030; 99202

== ENCOUNTER 2025-01-29 09:16 | Outpatient (AMB) | payer MEDICARE, SELFPAY ==
--- NOTE | 2025-01-29 09:31 | AM.OFFWIN_ITS ---
Intake Vital Signs 01/29/25 09:32 Height 5 ft 6 in Weight 203 lb 6 oz BMI 32.8 BP 126/66 Blood Pressure Location Rt brachial Position Sitting Pulse 80 Pulse Source Pulse Oximeter Temp 98.3 F Temp Source Oral Pulse Oximetry (%) 95 Oxygen Delivery Method Room Air Intake Visit Reasons: EP Upper Respiratory Intake Note: Patient present with a productive cough phlegm is green in color, chest congestion. patient states its been going on for 5-6 weeks and getting worse. patient feels better only when on antibiotics once finished the symptoms are back. Patient Tobacco Use Status: Former Tobacco user Trauma Doctor Required: No Allergies dronedarone (From Multaq) Allergy (Mild, Verified 01/29/25 09:37) Rash amoxicillin (From Augmentin) Allergy (Verified 01/29/25 09:37) liver failure clavulanic acid (From Augmentin) Allergy (Verified 01/29/25 09:37) liver failure Penicillins Adverse Reaction (Intermediate, Verified 01/29/25 09:37) Unknown Do you need a note to return to daycare/school/sports/work: No HPI EP Upper Respiratory HPI Details 75 year old male patient presents today with exacerbation of Chronic Obstructive Pulmonary Disease (COPD). This has been ongoing for over 1 month now. He was seen here on 01/06 and treated with Benzonatate, prednisone, and abx. He states that he does well on abx and prednisone and then shortly after completing course, his symptoms recur. He reports persistent cough with green sputum, worsened recentl Has COPD, uses nebulizer and CPAP machine at night. Denies any body aches or fever. Recently restarted Dupixent. Followed by Dr. Christie for pulm. Currently continues to have a constant cough with phlegm, congestion, and he gets SOB. He has been using his inhalers at home. Quit smoking. No sick contacts. [facility] Medical History Bladder cancer Atrial fibrillation SVT (supraventricular tachycardia) LBBB (left bundle branch block) PVC (premature ventricular contraction) Hypercholesterolemia Asthma COPD (chronic obstructive pulmonary disease) Jaundice ANALY on CPAP Personal history of nicotine dependence History of COVID-19 History of small bowel obstruction GERD (gastroesophageal reflux disease) Erectile dysfunction Obesity (BMI 30-39.9) Surgical History History of colonoscopy (~11/26/19) History of foot surgery (~2021) History of laparotomy (~2020) History of arthroplasty of right knee (~2020) History of meniscectomy of right knee (~2011) History of cataract surgery (~2020) History of appendectomy History of arthroplasty of left knee (~2019) History of meniscectomy of left knee (~2018) History of bladder surgery Hx of transurethral destruction of bladder lesion Family History Father Lung cancer Mother History of breast cancer Sister Multiple myeloma Other Cough Social History Household Members: Spouse Housing: House Are you a primary childbirth and infant care teacher to a significant other at home: No Do you presently have visiting nurse or other home services: No Alcohol intake: former Patient Tobacco Use Status: Former Tobacco user Tobacco use type: Cigarette Years Smoked: (former smoker - onset 14yo, 1ppd x 46yrs, 45pyh, quit 2009) e-Cigarette/Vaping Use: Never Used Second Hand Smoke Exposure: No Advance Directives Date on File: 02/14/21 service: Yes ( [employer] - served in [employer]) Current occupational status: retired Current occupational exposures/hazards: Yes (was exposed to Agent [place] while serving in [employer]) Cognitive needs: No Hearing needs: Yes (hearing aide) Vision needs: No Review of Systems Const All systems reviewed & are unremarkable except as noted in HPI and below Physical Exam Vital Signs: Last Vital Signs Temp 98.3 F 01/29/25 09:32 Pulse 80 01/29/25 09:32 BP 126/66 01/29/25 09:32 Pulse Ox 95 01/29/25 09:32 Oxygen Delivery Method Room Air 01/29/25 09:32 BMI result Body Mass Index 32.8 Const General: cooperative and no acute distress HEENT Head: Yes normal to inspection Ears: hearing grossly normal bilaterally Neck Neck: Yes no lymphadenopathy Resp Effort & Inspection: normal respiratory effort, able to speak in complete sentences and Actively coughing Quality: productive Auscultation: wheezes expiratory wheezes and upper bilaterally Cardio Rate: regular rate Rhythm: regular rhythm Skin General skin exam: no rashes or lesions noted Extrem General: Yes capillary refill normal and Yes no clubbing, cyanosis or edema Psych Appearance: grossly normal Mental Status: mental status grossly normal Speech and movement: Normal speech and movement present Assessment & Plan Assessment & Plan (1) COPD exacerbation: Code(s): J44.1 - Chronic obstructive pulmonary disease with (acute) exacerbation Plan: Most likely intermittent asthma vs COPD exacerbaction vs URI vs bronchitis. Plan to initiate antibiotics due to concern for bacterial infection and start a prednisone taper instead of burst to reduce risk for rebound effect. He has d/w clerk of court and restarted Dupixent. Continue to use CPAP and nebulizer at home. We discussed methods for properly cleaning his CPAP machine. Has Naomie Blanca for prn use. To f/u with Dr. Christie if these symptoms persist or recur again beyond treatment. Patient verbalizes understanding and agrees to plan. Medications: New cefdinir 300 mg PO BID 14 caps 0RF J44.1 - Chronic obstructive pulmonary disease with (acute) exacerbation prednisone Take 4 tabs for two days, then take 3 tabs for two days, then take 2 tabs for two days, then take 1 tab for 2 days. 10 mg PO DAILY 20 tabs 0RF J44.1 - Chronic obstructive pulmonary disease with (acute) exacerbation Coding Level of Care Code Est Pt Level 4 (47711) Diagnoses COPD exacerbation J44.1
[2025-01-29 09:32] VITALS: BP 126/66; PULSE 80; TEMP 36.8; O2SAT 95; BMI 32.8
== END 2025-01-29 10:51 | disposition home or self-care (01) ==
PROVIDERS: Visit Provider Nurse Practitioner Family
DX: J44.1 Chronic obstructive pulmonary disease with (acute) exacerbation (principal)

== ENCOUNTER → 2025-01-29 09:16 | Outpatient (BNVA) | payer MEDICARE, SELFPAY | PROVIDERS: Visit Provider Nurse Practitioner Family | DX: J44.1 Chronic obstructive pulmonary disease with (acute) exacerbation (principal) | CPT/HCPCS: 99212 ==

== ENCOUNTER 2025-03-17 07:07 | Outpatient (REF) | payer MEDICARE, SELFPAY ==
[2025-03-17 12:03] LABS: Chlamydia pneumoniae PCR Not Detected (Not Detect.); Coronavirus 229E PCR Not Detected (Not Detect.); Coronavirus HKU1 PCR Not Detected (Not Detect.); Coronavirus NL63 PCR Not Detected (Not Detect.); Coronavirus OC43 PCR Not Detected (Not Detect.); RSV PCR Not Detected (Not Detect.); Rhino/Enterovirus PCR Not Detected (Not Detect.)
[2025-03-17 12:42] LABS: Influenza A H1 PCR Not Detected (Not Detect.); Influenza A H1-2009 PCR Not Detected (Not Detect.); Influenza A H3 PCR Not Detected (Not Detect.); SARS-CoV-2 PCR Not Detected (Not Detect.)
== END 2025-03-17 07:08 | disposition home or self-care (01) ==
LOC: HO.LAB 07:07
PROVIDERS: Physician Assistant
DX: J06.9 Acute upper respiratory infection, unspecified (principal); R05.9 Cough, unspecified; R09.89 Other specified symptoms and signs involving the circulatory and respiratory systems; R09.81 Nasal congestion; R42 Dizziness and giddiness
CPT/HCPCS: 87633; 99202

== ENCOUNTER 2025-03-17 07:07 | Outpatient (AMB) | payer MEDICARE, SELFPAY ==
--- OUTSIDE RECORDS SUMMARY | 2024-12-25 04:30 | XMS_ITS | Encounter Summary ---
Author Name [facility] [place] [facility] [place] Organization [facility] [place] Address [address] [place] [address] Care Team Providers Care Freight Sorter Name Role Phone MAGDALENA GO Primary Care [...] PART A Dec 14, 2012 PART A [id number] GENEVIEVE ARNOLD JR PATIENT MEDICARE (WNR) MEDICARE (M) PART B Dec 14, 2012 PART B [id number] GENEVIEVE ARNOLD PATIENT MEDICARE PART D (WNR) PRESCRIPT ION PART D Dec 14, 2012 PART D [id number] GENEVIEVE ARNOLD PATIENT [facility] (WNR) MEDICARE ADVANTAGE [facility](W NR) Jul 16, 2022 [id number] GENEVIEVE ARNOLD PATIENT [facility] (WNR) MEDICARE ADVANTAGE [facility] (WNR) Jul 16, 2017 [id number] GENEVIEVE ARNOLD PATIENT Selected Encounter This section includes the information on record at [place] for the Encounter. Date/Time Encounter Type Encounter Description Reason Provider Source Dec 25, 2024 08:30 AM HEARING AID FITTING/CHECKIN G AUDIOLOGY ICD-10-CM Z46.1 Encounter for fitting and adjustment of hearing aid VIDAL HERR IH[facility]aya Encounter Template Text not used by [place] Assessments - Encounter Diagnoses This section includes the primary and secondary diagnoses documented for the Encounter. Date/Time Primary/Secondary Diagnosis Diagnosis Name Provider Source Dec 25, 2024 08:46 AM PRIMARY Encounter for fitting and adjustment of hearing aid VIDAL HERR [facility] Dec 25, 2024 08:46 AM SECONDARY Sensorineural hearing loss, bilateral ROSENDA HERRA [facility] Plan of Treatment: Future Appointments (+ [...] Appointme nt Facility Name Jan 13, 2025 10:30 AM AMBULATORY - REHAB MEDICIN E [facility] Jan 13, 2025 11:00 AM AMBULATORY - MEDICINE [facility] Jan 19, 2025 09:00 AM AMBULATORY - REHAB MEDICIN E [facility] Social History: Smoking Status (Most current) [...] 11, 2024 09:30 AM VA-TOBACCO FORMER USER [facility] Tobacco Use History This section includes a history of the smoking, or tobacco-related health factors, that were collected on or before the date of the Encounter. The data comes from the [place] facility where the Encounter took place. Date/Time Smoking Status/Tobacco Use Comment F acility Apr 11, 2024 09:30 AM VA-TOBACCO QUIT 5 TO < 15 YRS [facility] [place] [facility] Apr 09, 2023 09:00 AM VA-TOBACCO FORMER USER [facility] [place] [facility] Apr 09, 2023 09:00 AM VA-TOBACCO QUIT 5 TO < 15 YRS [facility] [place] [facility] Apr 13, 2022 09:30 AM VA-TOBACCO FORMER USER [facility] [place] [facility] Apr 13, 2022 09:30 AM VA-TOBACCO QUIT 5 TO < 15 YRS [facility] [place] [facility] Apr 12, 2021 11:30 AM VA-TOBACCO FORMER USER [facility] [place] [facility] Apr 12, 2021 11:30 AM VA-TOBACCO QUIT 5 TO < 15 YRS [facility] [place] [facility] Mar 19, 2020 09:00 AM VA-TOBACCO FORMER USER [facility] [place] [facility] Mar 19, 2020 09:00 AM VA-TOBACCO QUIT 5 TO < 15 YRS [facility] [place] [facility] December 12, 2018 10:18 AM VA-TOBACCO FORMER USER [facility] [place] [facility] December 12, 2018 10:18 AM VA-TOBACCO QUIT 5 TO < 15 YRS [facility] [place] [facility] Jan 21, 2018 07:50 AM QUIT TOBACCO USE > 7 YEARS AGO [facility] [place] [facility] Dec 25, 2016 10:59 AM QUIT TOBACCO USE > 7 YEARS AGO [facility] [place] [facility] Advance Directives: All historical and [...] Provider Source May 23, 2015 ADVANCE DIRECTIVE EDGARDO PENAE BRIDGER Frag[facility] Encounter Notes: All associated encounter notes This section contains the clinical notes associated to the Encounter. Date/Time Encounter Note(s) Provider Source Jan 08, 2025 09:39 AM ADDENDUM: LOCAL TITLE: Addendum STANDARD TITLE: ADDENDUM DATE OF NOTE: JAN 08, 2025@09:39:45 ENTRY DATE: JAN 08, 2025@09:39:46 AUTHOR: CHANA DOBBS COSIGNER: URGENCY: STATUS: COMPLETED Left earmold received and certified. Alerting the [facility] to contact the to schedule a 30 min HAC for sampler pickup. RTC entered. Earmold placed in the black cabinet. /kristen/ CHANA DOBBS [facility] Toll Wire Chief Signed: 01/08/2025 09:41 Receipt Acknowledged By: 01/08/2025 11:50 /kristen/ TORREY POLANCO ADVANCED CHEMISTRY DEPARTMENT CHAIR ====== --- Original Document --- 12/25/24 AUDIOLOGY CLINIC: has a history of bilateral sensorineural hearing loss. He was seen on 12-25-24 for hearing aid follow up regarding his Oticon EDWIGE Rs. He reports the left earmold seems too occluding/his ear feels muffled when it is in all the way. Replaced the custom earmold with an 8mm vented dome. Connected to [email or web address] and updated programming/acoustics and ran feedback. Completed a firmware update. Will order a new earmold with larger venting. The clinic to call for HAC when it arrives. /kristen/ Checo SCHULTZ, [facility] STAFF GASATERIA ATTENDANT Signed: 12/25/2024 09:45 [facility] Dec 25, 2024 07:43 AM AUDIOLOGY E & M NOTE: LOCAL TITLE: AUDIOLOGY CLINIC STANDARD TITLE: AUDIOLOGY E & M NOTE DATE OF NOTE: DEC 25, 2024@07:43 ENTRY DATE: DEC 25, 2024@07:43:58 AUTHOR: VIDAL HERR COSIGNER: URGENCY: STATUS: COMPLETED AUDIOLOGY CLINIC Has ADDENDA has a history of bilateral sensorineural hearing loss. He was seen on 12-25-24 for hearing aid follow up regarding his Oticon EDWIGE Rs. He reports the left earmold seems too occluding/his ear feels muffled when it is in all the way. Replaced the custom earmold with an 8mm vented dome. Connected to [email or web address] and updated programming/acoustics and ran feedback. Completed a firmware update. Will order a new earmold with larger venting. The clinic to call for HAC when it arrives. /Checo Greco, [facility] STAFF GASATERIA ATTENDANT Signed: 12/25/2024 09:45 01/08/2025 ADDENDUM STATUS: COMPLETED Left earmold received and certified. Alerting the [facility] to contact the [place] to schedule a 30 min HAC for sampler pickup. RTC entered. Earmold placed in the black cabinet. /rochelle DOBBS [facility] Toll Wire Chief Signed: 01/08/2025 09:41 Receipt Acknowledged By: 01/08/2025 11:50 /kristen/ TORREY POLANCO ADVANCED CHEMISTRY DEPARTMENT CHAIR 01/12/2025 ADDENDUM STATUS: COMPLETED Appointment scheduled on 01/13/2025. Earmold placed in the [place] cabinet. /rochelle DOBBS [facility] Toll Wire Chief Signed: 01/12/2025 07:58 VIDAL HERR [facility]
--- OUTSIDE RECORDS SUMMARY | 2025-01-13 06:30 | XMS_ITS | Encounter Summary ---
Author Name [facility] [place] Address [address] [place] [address] Care Team Providers Care Assembler Adjuster Name Role Phone MAGDALENA GO Primary Care [...] PART A Dec 14, 2012 PART A [id number] GENEVIEVE ARNOLD JR PATIENT MEDICARE (WNR) MEDICARE (M) PART B Dec 14, 2012 PART B [id number] GENEVIEVE ARNOLD PATIENT MEDICARE PART D (WNR) PRESCRIPT ION PART D Dec 14, 2012 PART D [id number] GENEVIEVE ARNOLD PATIENT [facility] (WNR) MEDICARE ADVANTAGE [facility](W NR) Jul 16, 2022 [id number] GENEVIEVE ARNOLD PATIENT [facility] (WNR) MEDICARE ADVANTAGE [facility] (WNR) Jul 16, 2017 [id number] GENEVIEVE ARNOLD PATIENT Selected Encounter This section includes the information on record at [place] for the Encounter. Date/Time Encounter Type Encounter Description Reason Provider Source Jan 13, 2025 10:30 AM HEARING AID FITTING/CHECKIN G AUDIOLOGY ICD-10-CM H90.3 Sensorineural hearing loss, bilateral ANGELANAIS PASCUAL Encounter Template Text not used by [place] Assessments - Encounter Diagnoses This section includes the primary and secondary diagnoses documented for the Encounter. Date/Time Primary/Secondary Diagnosis Diagnosis Name Provider Source Jan 13, 2025 10:45 AM PRIMARY Sensorineural hearing loss, bilateral BERE COOK E [facility] Plan of Treatment: Future Appointments [...] Appointment Type Appointme nt Facility Name Jan 19, 2025 09:00 AM AMBULATORY - REHAB MEDICIN E [facility] Vital Signs: All taken on the encounter date This section contains inpatient and outpatient Vital Signs collected on the date of the Encounter. Date/Time Temperature Pulse Blood Pressure Respiratory Rate SP02 Pain Height Weight Body Mass Index Source Jan 13, 2025 10:53 AM 97 F 70 /min 126/80 mm[Hg] 16 /min 95 % 0 205 lb 33 [facility] Social History: Smoking Status (Most current) and [...] 11, 2024 09:30 AM VA-TOBACCO FORMER USER [facility] Tobacco Use History This section includes a history of the smoking, or tobacco-related health factors, that were collected on or before the date of the Encounter. The data comes from the [place] facility where the Encounter took place. Date/Time Smoking Status/Tobacco Use Comment F acility Apr 11, 2024 09:30 AM VA-TOBACCO QUIT 5 TO < 15 YRS [facility] [place] [facility] Apr 09, 2023 09:00 AM VA-TOBACCO FORMER USER [facility] [place] [facility] Apr 09, 2023 09:00 AM VA-TOBACCO QUIT 5 TO < 15 YRS [facility] [place] [facility] Apr 13, 2022 09:30 AM VA-TOBACCO FORMER USER [facility] [place] [facility] Apr 13, 2022 09:30 AM VA-TOBACCO QUIT 5 TO < 15 YRS [place] [facility] [place] [facility] Apr 12, 2021 11:30 AM VA-TOBACCO FORMER USER [place] [facility] [place] [facility] Apr 12, 2021 11:30 AM VA-TOBACCO QUIT 5 TO < 15 YRS [place] [facility] [place] [facility] Mar 19, 2020 09:00 AM VA-TOBACCO FORMER USER [place] [facility] [place] [facility] Mar 19, 2020 09:00 AM VA-TOBACCO QUIT 5 TO < 15 YRS [place] [facility] [place] [facility] December 12, 2018 10:18 AM VA-TOBACCO FORMER USER [place] [facility] [place] [facility] December 12, 2018 10:18 AM VA-TOBACCO QUIT 5 TO < 15 YRS [place] [facility] [place] [facility] Jan 21, 2018 07:50 AM QUIT TOBACCO USE > 7 YEARS AGO [place] [facility] [place] [facility] Dec 25, 2016 10:59 AM QUIT TOBACCO USE > 7 YEARS AGO [place] [facility] [place] [facility] Advance Directives: All historical and [...] May 23, 2015 ADVANCE DIRECTIVE [facility] Encounter Notes: All associated encounter notes This section contains the clinical notes associated to the Encounter. Date/Time Encounter Note(s) Provider Source Jan 13, 2025 08:25 AM AUDIOLOGY NOTE: LOCAL TITLE: AUDIOLOGY STUDENT PROGRESS NOTE STANDARD TITLE: AUDIOLOGY NOTE DATE OF NOTE: JAN 13, 2025@08:25 ENTRY DATE: JAN 13, 2025@08:25:27 AUTHOR: ALIVIA COOK COSIGNER: ANAIS ORTIZ URGENCY: STATUS: COMPLETED AUDIOLOGY STUDENT PROGRESS NOTE Has ADDENDA Hearing Aid Check-Binaural Diagnosis: Z46.1 Hearing aid adjustment Subjective: Remedios was seen today for a hearing aid check to pick-up his repaired left embedded earmold. Remedios was accompanied by his . Remedios gave verbal permission for her to participate in his care today. Remedios reported that both hearing aids were amplifying fine, but he feels occluded with the earmolds. He reported better sound quality with the dome, but wants to try the new earmold. Objective/Assessment: Otoscopy revealed clear canals bilaterally. Remedios had an 85 power hotel desk clerk with an 8mm double vented dome on the left side. Suctioned microphones and sound ports AU. Replaced the left wax filter and 8mm closed double vented dome. Listening check of hearing aids found both to be amplifying well and free of distortion. The following programming adjustments were made: Transferred settings from the old session and increased hotel desk clerk gain from 85 to 100, as the embedded hotel desk clerk is 100 power. Ran feedback test to ensure no feedback due to the new earmold. See settings in JUAN R. Remedios was pleased with the performance and sound quality of his hearing aids following adjustments. Aids were returned to Remedios in excellent working order. noted immediate improvement in volume and sound quality following cleaning and repairs. Remedios was given 85 power hotel desk clerk and was counseled on returning to clinic if he wanted to use domes, rather than the earmolds. Plan: 1. Follow up per [place]'s request. 2. Use of communication strategies to facilitate hearing in adverse listening situations. /kristen/ ALIVIA COOK AUDIOLOGY IMPREGNATING TANK OPERATOR Signed: 01/13/2025 17:25 /kristen/ TE Navarrete CHIEF, AUDIOLOGY/MACHINE WELDER Cosigned: 01/13/2025 17:25 01/13/2025 ADDENDUM STATUS: COMPLETED Supervised and agree with the following, as written by student services dean clinician, Alivia Cook. /kristen/ ANAIS Rodriguez, TE CHIEF, AUDIOLOGY/MACHINE WELDER Signed: 01/13/2025 17:26 ALIVIA COOK [facility]
--- OUTSIDE RECORDS SUMMARY | 2025-01-13 07:00 | XMS_ITS | Encounter Summary ---
Author Name [facility] [place] Address [address] [place] [address] Care Team Providers Care Business Mail Entry Clerk Name Role Phone MAGDALENA GO Primary Care [...] PART A Dec 14, 2012 PART A [id number] GENEVIEVE ARNOLD JR PATIENT MEDICARE (WNR) MEDICARE (M) PART B Dec 14, 2012 PART B [id number] GENEVIEVE ARNOLD PATIENT MEDICARE PART D (WNR) PRESCRIPT ION PART D Dec 14, 2012 PART D [id number] GENEVIEVE ARNOLD PATIENT [facility] (WNR) MEDICARE ADVANTAGE [facility](W NR) Jul 16, 2022 [id number] GENEVIEVE ARNOLD PATIENT [facility] (WNR) MEDICARE ADVANTAGE [facility] (WNR) Jul 16, 2017 [id number] GENEVIEVE ARNOLD PATIENT Selected Encounter This section includes the information on record at [place] for the Encounter. Date/Time Encounter Type Encounter Description Reason Provider Source Jan 13, 2025 11:00 AM OFFICE O/P EST MOD 30 MIN PRIMARY CARE/MEDICINE ICD-10-CM J44.9 Chronic obstructive pulmonary disease, unspecified ARA,PERCY KYMBERLY E Encounter Template Text not used by [place] Assessments - Encounter Diagnoses This section includes the primary and secondary diagnoses documented for the Encounter. Date/Time Primary/Secondary Diagnosis Diagnosis Name Provider Source Jan 13, 2025 11:46 AM PRIMARY Chronic obstructive pulmonary disease, unspecified ARA,PERCY TRAYLOR [place] [facility] [place] [facility] Jan 13, 2025 11:46 AM SECONDARY Carcinoma in situ of bladder ARA,PERCY TRAYLOR [place] [facility] [place] [facility] Jan 13, 2025 11:46 AM SECONDARY Gastro-esophageal reflux disease without esophagitis ARA,PERCY TRAYLOR [place] [facility] [place] [facility] Jan 13, 2025 11:46 AM SECONDARY Hyperlipidemia, unspecified ARA,PERCY KYMBERLY [place] [facility] [place] [facility] Jan 13, 2025 11:46 AM SECONDARY Other seasonal allergic rhinitis ARA,PERCY TRAYLOR [place] [facility] [place] [facility] Jan 13, 2025 11:46 AM SECONDARY Sleep apnea, unspecified ARA,PERCY TRAYLOR [place] [facility] [place] [facility] Jan 13, 2025 11:46 AM SECONDARY Unspecified atrial fibrillation ARA,PERCY TRAYLOR [place] [facility] [place] [facility] Plan of Treatment: Future Appointments (+ 6 months) and Future Tests (+/- 45 days) The Plan of Treatment section includes future care activities for the patient from all [place] [facility]. This section includes future appointments and future [...] 09:00 AM AMBULATORY - REHAB MEDICIN E [place] [facility] [place] [facility] Vital Signs: All taken on the encounter date This section contains inpatient and outpatient Vital Signs collected on the date of the Encounter. Date/Time Temperature Pulse Blood Pressure Respiratory Rate SP02 Pain Height Weight Body Mass Index Source Jan 13, 2025 10:53 AM 97 F 70 /min 126/80 mm[Hg] 16 /min 95 % 0 205 lb 33 [facility] [place] [facility] Social History: Smoking Status (Most [...] VA-TOBACCO FORMER USER [facility] [place] [facility] Tobacco Use History This section includes a history of the smoking, or tobacco-related health factors, that were collected on or before the date of the Encounter. The data comes from the [place] facility where the Encounter took place. Date/Time Smoking Status/Tobacco Use Comment F acility Apr 11, 2024 09:30 AM VA-TOBACCO QUIT 5 TO < 15 YRS [facility] [place] [facility] Apr 09, 2023 09:00 AM VA-TOBACCO FORMER USER [facility] [place] [facility] Apr 09, 2023 09:00 AM VA-TOBACCO QUIT 5 TO < 15 YRS [facility] [place] [facility] Apr 13, 2022 09:30 AM VA-TOBACCO FORMER USER [facility] [place] [facility] Apr 13, 2022 09:30 AM VA-TOBACCO QUIT 5 TO < 15 YRS [facility] [place] [facility] Apr 12, 2021 11:30 AM VA-TOBACCO FORMER USER [facility] [place] [facility] Apr 12, 2021 11:30 AM VA-TOBACCO QUIT 5 TO < 15 YRS [facility] [place] [facility] Mar 19, 2020 09:00 AM VA-TOBACCO FORMER USER [facility] [place] [facility] Mar 19, 2020 09:00 AM VA-TOBACCO QUIT 5 TO < 15 YRS [facility] [place] [facility] December 12, 2018 10:18 AM [facility] December 12, 2018 10:18 AM VA-TOBACCO QUIT 5 TO < 15 [facility] Jan 21, 2018 07:50 AM QUIT TOBACCO USE > [facility] Dec 25, 2016 10:59 AM QUIT TOBACCO USE > 7 YEARS AGO [facility] Advance Directives: All historical and current [...] May 23, 2015 ADVANCE DIRECTIVE JEANAMBER BRIDGER Fragoso [facility] Encounter Notes: All associated encounter notes This section contains the clinical notes associated to the Encounter. Date/Time Encounter Note(s) Provider Source Jan 13, 2025 11:03 AM PRIMARY CARE NURSE PRACTITIONER OUTPATIENT NOTE: LOCAL TITLE: NURSE PRACTITIONER OUTPATIENT NOTE STANDARD TITLE: PRIMARY CARE NURSE PRACTITIONER OUTPATIENT NOTE DATE OF NOTE: JAN 13, 2025@11:03 ENTRY DATE: JAN 13, 2025@11:03:21 AUTHOR: PERCY BULLOCK EXP COSIGNER: URGENCY: STATUS: COMPLETED Pt is a 75 who comes in for follow up of medical problems as noted below. Dr Blanton with [facility] HPI: Former smoker quit 2011 has LDCT through [facility]/Dr Blanton COPD Back on Dupixent q 2 weeks follows with food and beverage lead and taking Zyrtec and Flonase. No recent flares has AFIB Had Ablation and no afib since Patient previously ablated for AFIB, continues on home Eliquis daily and metoprolol daily. Condition is stable and asymptomatic. Plan to continue previously prescribed Eliquis, patient follows with community geomatics professor. Sleep apnea Patient continues to use home CPAP without issues, reports no current issues with sleep. Plan to continue use of CPAP as previously prescribed Bladder cancer Follows with Dr Corbett at [facility] Allergies/eczema Back on Dupixent, Hydroxyzine and Zyrtec and Flonase seems to help GERD takes omeprazole Has routine colonoscopy PMH: Active problems - Computerized Problem List is the source for the followin. Exposure to potentially hazardous substance ([facility] [id number]) Entered automatically through [employer] Problem List documentation program 2. Chronic obstructive pulmonary disease 3. Allergy 4. AF - Atrial fibrillation 5. Arrhythmia MED: Metoprolol / taper off flecainide( start 02/2019) Per pt - hx of left bundle block 6. Does use hearing aid 7. Adult screening status 11/2018 - No evidence of abdominal aortic aneurysm. 8. History of surgery multiple cystoscopy - every 3 months ( x urologist- bernardo/ [facility]) multiple cyst excised - scrotum/ neck - 2017 2018- left knee arthroplasty 9. 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 10. Posttraumatic stress disorder 11. Under care of multiple providers DR Corrie BLANTON ( [facility]) - visit 12/11/18 [place] - SEE [employer] [employer] [facility] WHEN IN [place] ( JUN THRU NOVEM[place] ) NON [place] D[place] - [place] urologist ( [place] ( [facility]- DR Del Valle / [facility] [place] - DR Rangel 12. Sleep apnea PER VISIT 01/21/18 - ANNUAL VISIT (CWM/NO/PACT 8 ) CPAP auto PAP mode 5-15 cm - h20 humidified - air lifetime ( DR BLANTON) - non VA script 13. Bladder cancer TURB procedures x 5. Diagnosed in 2012. 14. Hyperlipidemia 15. Gastroesophageal reflux disease 16. History of alcohol abuse sober for more than 38 yrs Allergies: MULTAQ, AMOXICILLIN The following VA and Non-VA meds were reconciled with patient: Active and Recently Outpatient Medications (excluding Supplies): Active Outpatient Medications Status 1) ALBUTEROL SO4 0.083% INHL 3ML INHALE 1 AMPULE IN NEBULIZER ACTIVE EVERY 4 HOURS NEEDED FOR BREATHING Indication: FOR BRONCHOSPASM Active Non-VA Medications Status 1) Non-VA APIXABAN 5MG TAB 5MG BY MOUTH EVERY 12 HOURS ACTIVE 2) Non-VA METOPROLOL TARTRATE 50MG TAB 50MG BY MOUTH TWICE ACTIVE DAILY 3) Non-VA OMEPRAZOLE 20MG EC CAP 20MG BY MOUTH EVERY MORNING 30 ACTIVE MINUTES BEFORE BREAKFAST 4) Non-VA SIMVASTATIN 80MG TAB 40MG BY MOUTH AT BEDTIME ACTIVE 5 Total Medications Allergies: MULTAQ, AMOXICILLIN VITAL SIGNS: 97 F [36.1 C] (01/13/2025 10:53) 70 (01/13/2025 10:53) 16 (01/13/2025 10:53) 126/80 (01/13/2025 10:53) 0 (01/13/2025 10:53) 66 in [167.6 cm] (12/25/2016 11:01) 205 lb [92.99 kg] (01/13/2025 10:53) BMI: 33.2 ROS 10 point ROS negative unless above in HPI PHYSI EULOGIO EXAM GENERAL: well appearing in NAD, speaking in clear sentences. RESP: CTAB, no wheezing or Rales. Cards: S1 S2 RRR, No m/r/g no JVD, No Pedal Edema, Distal Pulses palpable NEURO CN II-XII grossly intact, gait steady without shuffle, Normal sensation to feet bilaterally MENTAL A&Ox3 Appropriate, Pleasant, Cooperative ASSESSMENT AND PLAN: COPD -Back on Dupixent q 2 weeks -Cont. to follows with food and beverage lead -Cont. Zyrtec and Flonase AFIB -post Ablation -stable on Eliquis and beta willian Sleep apnea -Cont. CPAP Bladder cancer Follows with Dr Corbett at [facility] Allergies/eczema -Cont. Dupixent, Hydroxyzine, Zyrtec and Flonase GERD -Cont. omeprazole Has routine colonoscopy scheduled next week Today I spent 25 minutes on some or all of the following: chart review, history, physical examination, treatment planning education and counseling of the patient/family/ocular care technologist, placing orders, communicating with other health care providers, and documentation in the electronic health record Return to clinic to see me in 12 months, RTC sooner if needed. Clinical Reminders Follow Up Colonoscopy: Colonoscopy is due based on information available to this reminder. A colonoscopy is currently scheduled or in process of being scheduled. Medication Reconciliation: Outpatient: Has the patient been taking medications as documented in the EMLR? YES: The patient has been taking medications as documented in the EMLR. Essential Medication List for Review used to complete this medication reconciliation. INCLUDED IN THIS LIST: Alphabetical list of active outpatient prescriptions dispensed from this [place] (local) and dispensed from another [place] or [facility] facility (remote) as well as inpatient orders [...] provider. /kristen/ KOJO LOREDO Nurse Practitioner Signed: 01/13/2025 11:46 PERCY BULLOCK [place] [facility] [place] [facility] Jan 13, 2025 10:56 AM PREVENTIVE MEDICINE NURSING NOTE: LOCAL TITLE: CLINICAL REMINDERS/NURSING STANDARD TITLE: PREVENTIVE MEDICINE NURSING NOTE DATE OF NOTE: JAN 13, 2025@10:56 ENTRY DATE: JAN 13, 2025@10:56:45 AUTHOR: LIBERTAD GUERRA COSIGNER: URGENCY: STATUS: COMPLETED Follow Up Colonoscopy: Colonoscopy is due based on information available to this reminder. A colonoscopy is currently scheduled or in process of being scheduled. Comment: schedule for next week Td/Tdap Immunization: Prior Td vaccination The patient may have been vaccinated in the past but written documentation of vaccination is not available today. Patient instructed to obtain a written record of the prior vaccine and bring it to the next appointment. COVID-19 Immunization: Refused Moderna Monovalent COVID-19 vaccine Immunization: COVID-19 (MODERNA), MRNA, LNP-S, PF, 50 MCG/0.5 ML (AGES 12+ YEARS) Refusal Reason: PATIENT DECISION Patient refuses all immunization(s) in the COVID-19 group Date Documented: 01/13/25 10:58 Herpes Zoster (Shingles) Vaccine: Prior Herpes Zoster vaccination The patient has been vaccinated in the past but written documentation of vaccination is not available today. Patient instructed to obtain a written record of the prior vaccine and bring it to the next appointment. /kristen/ LIBERTAD GUERRA REGISTERED NURSE Signed: 01/13/2025 10:59 LIBERTAD GUERRA [facility]
--- OUTSIDE RECORDS SUMMARY | 2025-01-19 05:00 | XMS_ITS | Encounter Summary ---
Author Name [place] Address [address] [place] [address] Care Team Providers Care Operations Assistant Name Role Phone MAGDALENA GO Primary Care [...] PART A Dec 14, 2012 PART A [id number] GENEVIEVE ARNOLD JR PATIENT MEDICARE (WNR) MEDICARE (M) PART B Dec 14, 2012 PART B [id number] GENEVIEVE ARNOLD PATIENT MEDICARE PART D (WNR) PRESCRIPT ION PART D Dec 14, 2012 PART D [id number] GENEVIEVE ARNOLD PATIENT [facility] (WNR) MEDICARE ADVANTAGE [facility](W NR) Jul 16, 2022 [id number] GENEVIEVE ARNOLD PATIENT [facility] (WNR) MEDICARE ADVANTAGE [facility] (WNR) Jul 16, 2017 [id number] GENEVIEVE ARNOLD PATIENT Selected Encounter This section includes the information on record at [place] for the Encounter. Date/Time Encounter Type Encounter Description Reason Provider Source Jan 19, 2025 09:00 AM HEARING AID FITTING/CHECKIN G AUDIOLOGY ICD-10-CM H90.3 Sensorineural hearing loss, bilateral ÁLVARO CAVAZOS Amaya Encounter Template Text not used by [place] Assessments - Encounter Diagnoses This section includes the primary and secondary diagnoses documented for the Encounter. Date/Time Primary/Secondary Diagnosis Diagnosis Name Provider Source Jan 19, 2025 12:11 PM PRIMARY Sensorineural hearing loss, bilateral [facility] Jan 19, 2025 12:11 PM SECONDARY Encounter for fitting and adjustment of hearing aid [facility]ERE COOK [facility] Plan of Treatment: Future Appointments (+ 6 months) and Future Tests (+/- 45 days) The Plan of Treatment section includes future care activities for the patient from all [place] [facility]. This section includes future appointments and future orders which are active, pending or scheduled. Future Appointments This section includes appointments that were scheduled to occur 6 months from the date of the Encounter, up to a maximum of 20 appointments. The data comes from all [place] treatment facilities. Appointment Date/Time Appointment Type Appointme nt Facility Name Feb 11, 2025 02:30 PM AMBUL[facility] Mar 05, 2025 11:30 AM AMBULATORY - REHAB MEDICIN E [facility] Social History: Smoking Status (Most current) [...] 11, 2024 09:30 AM VA-TOBACCO FORMER USER [facility] Tobacco Use History This section includes a history of the smoking, or tobacco-related health factors, that were collected on or before the date of the Encounter. The data comes from the [place] facility where the Encounter took place. Date/Time Smoking Status/Tobacco Use Comment F acility Apr 11, 2024 09:30 AM VA-TOBACCO QUIT 5 TO < 15 YRS [facility] [place] [facility] Apr 09, 2023 09:00 AM VA-TOBACCO FORMER USER [facility] [place] [facility] Apr 09, 2023 09:00 AM VA-TOBACCO QUIT 5 TO < 15 YRS [facility] [place] [facility] Apr 13, 2022 09:30 AM VA-TOBACCO FORMER USER [facility] [place] [facility] Apr 13, 2022 09:30 AM VA-TOBACCO QUIT 5 TO < 15 YRS [facility] [place] [facility] Apr 12, 2021 11:30 AM VA-TOBACCO FORMER USER [facility] [place] [facility] Apr 12, 2021 11:30 AM VA-TOBACCO QUIT 5 TO < 15 YRS [place] [facility] [place] [facility] Mar 19, 2020 09:00 AM VA-TOBACCO FORMER USER [place] [facility] [place] [facility] Mar 19, 2020 09:00 AM VA-TOBACCO QUIT 5 TO < 15 YRS [place] [facility] [place] [facility] December 12, 2018 10:18 AM VA-TOBACCO FORMER USER [facility] [place] [facility] December 12, 2018 10:18 AM VA-TOBACCO QUIT 5 TO < 15 YRS [place] [facility] [place] [facility] Jan 21, 2018 07:50 AM QUIT TOBACCO USE > 7 YEARS AGO [place] [facility] [place] [facility] Dec 25, 2016 10:59 AM QUIT TOBACCO USE > 7 YEARS AGO [place] [facility] [place] [facility] Advance Directives: All historical and current [...] 2015 ADVANCE DIRECTIVE AMBER PENA [facility] Encounter Notes: All associated encounter notes This section contains the clinical notes associated to the Encounter. Date/Time Encounter Note(s) Provider Source Jan 19, 2025 09:18 AM AUDIOLOGY NOTE: LOCAL TITLE: AUDIOLOGY STUDENT PROGRESS NOTE STANDARD TITLE: AUDIOLOGY NOTE DATE OF NOTE: JAN 19, 2025@09:18 ENTRY DATE: JAN 19, 2025@09:18:58 AUTHOR: ALIVIA COOK COSIGNER: ÁLVARO CAVAZOS URGENCY: STATUS: COMPLETED AUDIOLOGY STUDENT PROGRESS NOTE Has ADDENDA Hearing Aid Check-Binaural Diagnosis: Z46.1 Hearing aid adjustment Subjective: Remedios was seen today for a hearing aid check. Remedios was accompanied by his . Remedios gave verbal permission for her to participate in his care today. He was in for a HAC on 01/19/2025 and expressed he may want to change from molds to domes. [place] reported that his left business reporter was too short, but that he wanted to replace both receivers in order to use domes. Objective/Assessment: Otoscopy revealed clear canals bilaterally. Suctioned microphones and sound ports AU. Embedded molded receivers were replaced with size 4 Oticon detect receivers with 8mm double vented domes and sports locks. Listening check of hearing aids found both to be amplifying well and free of distortion. The following programming adjustments were made: Hearing aids were connected to [employer] and feedback manager of marketing was ran. See settings saved in Ber[employer]i. Note: the embedded earmolds were ordered with a size 3 business reporter, but for comfort the is wearing a size 4 business reporter with domes. Aids were returned to in excellent working order. [place] noted immediate improvement in volume and sound quality following cleaning and repairs. A new left embedded earmold with a size 3 business reporter will be ordered to replace the size 2 embedded business reporter that the has. [facility]. [place] was informed that if he wants to start wearing the earmolds again, he has to come into the clinic on order for them to be put on and recalibrated to the hearing aids. Plan: 1. Order left size 3 embedded earmold and send it to . 2. Follow up per [place]'s request. /kristen/ ALIVIA COOK AUDIOLOGY RENTAL MANAGEMENT TRAINEE Signed: 01/19/2025 17:02 /es/ ZACK NEIL, [facility]-A STAFF SENIOR JAVA SOFTWARE ENGINEER Cosigned: 01/19/2025 17:12 01/29/2025 ADDENDUM STATUS: COMPLETED Left embedded earmold received and certified. Mailed to address on file today. /kristen/ CHANA DOBBS Audiology Health Laundry Technician Signed: 01/29/2025 09:13 ALIVIA COOK [facility]
--- OUTSIDE RECORDS SUMMARY | 2025-01-26 08:20 | XMS_ITS ---
Author Organization [facility] Address [address] [place] [address] Care Team Providers Care Fish Pitcher Name Role Phone Any Jackson MD Primary Care Provider Darrian Galvez [phone] REASON FOR VISIT screening,hx polyps Encounters Encounter Location Date Provider Diagnosis [facility] [place] [address] [place] [phone] 01/26/2025 Darrian Khan Plan Of Treatment No Information Progress Notes * GENEVIEVE ARNOLD JrDOB: (75 yo M)Acc No.[id number]:01/26/2025 COLON WITH MAC Patient: Neyda WHITTAKERGENEVIEVE Jr Provider: Fang Khan MD :1950 A ge:75 Y S ex:Male Date:01/26/2025 Address:[facility] [address], [facility] Pcp:Any Jackson MD Subjective: * Chief Complaints: [...] 0 01/26/2025 Generated for Printi ng/Faxing/eTransmitting on: 03/17/2025 07:09 AM EDT
--- OUTSIDE RECORDS SUMMARY | 2025-02-11 10:30 | XMS_ITS | Encounter Summary ---
Author Name [facility] [place] [facility] [place] Address [address] [place] [address] Care Team Providers Care Space Buyer Name Role Phone MAGDALENA GO Primary Care [...] PART A Dec 14, 2012 PART A [id number] GENEVIEVE ARNOLD JR PATIENT MEDICARE ([place]NR) MEDICARE (M) PART B Dec 14, 2012 PART B [id number] GENEVIEVE ARNOLD PATIENT MEDICARE PART D ([place]NR) PRESCRIPT ION PART D Dec 14, 2012 PART D [id number] GENEVIEVE ARNOLD PATIENT [facility] (WNR) MEDICARE ADVANTAGE [facility](W NR) Jul 16, 2022 [id number] GENEVIEVE ARNOLD PATIENT [facility] (WNR) MEDICARE ADVANTAGE [facility] (WNR) Jul 16, 2017 [id number] GENEVIEVE ARNOLD PATIENT Selected Encounter This section includes the information on record at [place] for the Encounter. Date/Time Encounter Type Encounter Description Reason Provider Source Feb 11, 2025 02:30 PM HEARING AID REPAIR/MODIFYING AUDIOLOGY ICD-10-CM Z46.1 Encounter for fitting and adjustment of hearing aid ANAIS ORTIZ Encounter Template Text not used by [place] Assessments - Encounter Diagnoses This section includes the primary and secondary diagnoses documented for the Encounter. Date/Time Primary/Secondary Diagnosis Diagnosis Name Provider Source Feb 11, 2025 03:16 PM PRIMARY Encounter for fitting and adjustment of hearing aid RENETTA DOBBS [facility] Feb 11, 2025 03:16 PM SECONDARY Sensorineural hearing loss, bilateral RENETTA DOBBS [facility] Plan of Treatment: Future Appointments (+ 6 months) and Future Tests (+/- 45 days) The Plan of Treatment section includes future care activities for the [facility] [place] [facility] This section includes future appointments and future orders which are active, pending or scheduled. Future Appointments This section includes appointments that were scheduled to occur 6 months from the date of the Encounter, up to a maximum of 20 appointments. The data comes from all [place] treatment facilities. Appointment Date/Time Appointment Type Appointme nt Facility Name Mar 05, 2025 11:30 AM AMBULATORY - REHAB MEDICIN E [facility] Social History: Smoking Status (Most current) and Tobacco Use (All prior to encounter date) This section includes the most current, and the historical, smoking and tobacco- related health factors from the [place] facility where the Encounter took place. Current Smoking Status This section includes the most current smoking, or tobacco-related health factor, from the [place] facility where the Encounter took place. Date/Time Current Smoking Status Comment Adria ity Apr 11, 2024 09:30 AM [place]-TOBACCO QUIT 5 TO < 15 YRS [facility] Tobacco Use History This section includes a history of the smoking, or tobacco-related health factors, that were collected on or before the date of the Encounter. The data comes from the [place] facility where the Encounter took place. Date/Time Smoking Status/Tobacco Use Comment F acility Apr 11, 2024 09:30 AM VA-TOBACCO QUIT 5 TO < 15 YRS [facility] [place] [facility] Apr 09, 2023 09:00 AM VA-TOBACCO FORMER USER [facility] [place] [facility] Apr 09, 2023 09:00 AM VA-TOBACCO QUIT 5 TO < 15 YRS [facility] [place] [facility] Apr 13, 2022 09:30 AM VA-TOBACCO FORMER USER [facility] [place] [facility] Apr 13, 2022 09:30 AM VA-TOBACCO QUIT 5 TO < 15 YRS [facility] [place] [facility] Apr 12, 2021 11:30 AM VA-TOBACCO FORMER USER [facility] [place] [facility] Apr 12, 2021 11:30 AM VA-TOBACCO QUIT 5 TO < 15 YRS [facility] [place] [facility] Mar 19, 2020 09:00 AM VA-TOBACCO FORMER USER [facility] [place] [facility] Mar 19, 2020 09:00 AM VA-TOBACCO QUIT 5 TO < 15 YRS [facility] [place] [facility] December 12, 2018 10:18 AM VA-TOBACCO FORMER USER [facility] [place] [facility] December 12, 2018 10:18 AM VA-TOBACCO QUIT 5 TO < 15 YRS [facility] [place] [facility] Jan 21, 2018 07:50 AM QUIT TOBACCO USE > 7 YEARS AGO [facility] [place] [facility] Dec 25, 2016 10:59 AM QUIT TOBACCO USE > 7 YEARS AGO [place] [facility] [place] [facility] Advance Directives: All historical and [...] ADVANCE DIRECTIVE AMBER PENA [facility] [place] [facility] Encounter Notes: All associated encounter notes This section contains the clinical notes associated to the Encounter. Date/Time Encounter Note(s) Provider Source Feb 19, 2025 02:30 PM ADDENDUM: LOCAL TITLE: Addendum STANDARD TITLE: ADDENDUM DATE OF NOTE: FEB 19, 2025@14:30 ENTRY DATE: FEB 19, 2025@14:30:18 AUTHOR: CHANA DOBBS COSIGNER: ANAIS ORTIZ URGENCY: STATUS: COMPLETED Hollow canal lock earmolds received and certified. Alerting the [facility] to contact the to schedule a 30 min HAC with an Pyrotechnician to assess fit and update acoustic parameters. RTC entered. Earmolds placed in the black cabinet. /es/ CHANA DOBBS Audiology Health Batcher Operator Signed: 02/19/2025 14:32 /kristen/ ANAIS Rodriguez CCC-A CHIEF, AUDIOLOGY/CHAIR INSPECTOR Cosigned: 02/19/2025 15:13 Receipt Acknowledged By: 02/20/2025 09:13 /kristen/ TORREY POLANCO ADVANCED MANAGER PROPOSAL ========= --- Original Document --- 02/11/25 AUDIOLOGY HEALTH MULTI SKILLED OPERATOR: February 11, 2025 History/Background: [place] was seen for a hearing aid follow up, unaccompanied. The [place] presented today reporting his hearing aids are not staying in his ears. Visual inspection revealed domes completely out of the Veterans ear canals. The brought in his earmolds and stated he does not like the occlusion effect he gets especially when chewing. He also noted that high frequency sounds are piercing. Hearing aids: Oticon INTENT 1 MINIRITE-Rs Serial Numbers: [id number] Battery size: Rechargeable Date Issued: 04/11/2024 Hearing aid check: Both hearing aids were cleaned and checked. Replaced size 4/100 receivers with 5/100, however that was too long so returned to size 4. Replaced 8mm closed domes with 8mm power domes and new retention lines were added. The new domes appeared to fit excellent. Discussed ordering new hollow rite earmolds and the [place] agreed to proceed. Upon receipt, the [place] will be contacted for machine pecan picker. Plan: Upon receipt of the new canal lock hollow rite earmolds, the [place] can be contacted to schedule a 30 min HAC or HT appointment for machine pecan picker. /kristen/ CHANA DOBBS Audiology Health Batcher Operator Signed: 02/11/2025 15:24 /kristen/ ANAIS Rodriguez CCC-A CHIEF, AUDIOLOGY/CHAIR INSPECTOR Cosigned: 02/11/2025 15:27 CHANA DOBBS [place] [facility] Feb 11, 2025 07:17 AM AUDIOLOGY NOTE: LOCAL TITLE: AUDIOLOGY HEALTH MULTI SKILLED OPERATOR STANDARD TITLE: AUDIOLOGY NOTE DATE OF NOTE: FEB 11, 2025@07:17 ENTRY DATE: FEB 11, 2025@07:17:30 AUTHOR: CHANA DOBBS COSIGNER: ANAIS ORTIZ URGENCY: STATUS: COMPLETED AUDIOLOGY HEALTH MULTI SKILLED OPERATOR Has ADDENDA February 11, 2025 History/Background: was seen for a hearing aid follow up, unaccompanied. The presented today reporting his hearing aids are not staying in his ears. Visual inspection revealed domes completely out of the Veterans ear canals. The [place] brought in his earmolds and stated he does not like the occlusion effect he gets especially when chewing. He also noted that high frequency sounds are piercing. Hearing aids: Oticon INTENT 1 MINIRITE-Rs Serial Numbers: [id number] Battery size: Rechargeable Date Issued: 04/11/2024 Hearing aid check: Both hearing aids were cleaned and checked. Replaced size 4/100 receivers with 5/100, however that was too long so returned to size 4. Replaced 8mm closed domes with 8mm power domes and new retention lines were added. The new domes appeared to fit excellent. Discussed ordering new hollow rite earmolds and the [place] agreed to proceed. Upon receipt, the [place] will be contacted for machine pecan picker. Plan: Upon receipt of the new canal lock hollow rite earmolds, the [place] can be contacted to schedule a 30 min HAC or HT appointment for machine pecan picker. /kristen/ CHANA DOBBS Audiology Health Batcher Operator Signed: 02/11/2025 15:24 /kristen/ ANAIS Rodriguez CCC-A CHIEF, AUDIOLOGY/CHAIR INSPECTOR Cosigned: 02/11/2025 15:27 02/19/2025 ADDENDUM STATUS: COMPLETED Hollow canal lock earmolds received and certified. Alerting the [facility] to contact the to schedule a 30 min HAC with an Pyrotechnician to assess fit and update acoustic parameters. RTC entered. Earmolds placed in the black cabinet. /rochelle DOBBS Audiology Health Batcher Operator Signed: 02/19/2025 14:32 /kristen/ ANAIS Rodriguez, CCC-A CHIEF, AUDIOLOGY/CHAIR INSPECTOR Cosigned: 02/19/2025 15:13 Receipt Acknowledged By: 02/20/2025 09:13 /kristen/ TORREY POLANCO ADVANCED MANAGER PROPOSAL 02/23/2025 ADDENDUM STATUS: COMPLETED Appointment scheduled on 03/05/2025. Earmold placed in the [place] cabinet. /rochelle DOBBS Audiology Health Batcher Operator Signed: 02/23/2025 09:57 /kristen/ Tomás REINA, CCC-A Community Health Consultant Chief, Audiology Cosigned: 02/23/2025 13:09 CHANA DOBBS [facility]
--- OUTSIDE RECORDS SUMMARY | 2025-03-05 07:30 | XMS_ITS | Encounter Summary ---
Author Name [facility] [place] Address [address] [place] [address] Care Team Providers Care Tea Leaf Reader Name Role Phone MAGDALENA GO Primary Care [...] PART A Dec 14, 2012 PART A [id number] GENEVIEVE ARNOLD JR PATIENT MEDICARE (WNR) MEDICARE (M) PART B Dec 14, 2012 PART B [id number] GENEVIEVE ARNOLD PATIENT MEDICARE PART D (WNR) PRESCRIPT ION PART D Dec 14, 2012 PART D [id number] GENEVIEVE ARNOLD PATIENT [facility] (WNR) MEDICARE ADVANTAGE [facility](W NR) Jul 16, 2022 [id number] GENEVIEVE ARNOLD PATIENT [facility] (WNR) MEDICARE ADVANTAGE [facility] (WNR) Jul 16, 2017 [id number] 24 GENEVIEVE ARNOLD PATIENT Selected Encounter This section includes the information on record at [place] for the Encounter. Date/Time Encounter Type Encounter Description Reason Provider Source Mar 05, 2025 11:30 AM HEARING AID FITTING/CHECKIN G AUDIOLOGY ICD-10-CM Z46.1 Encounter for fitting and adjustment of hearing aid VIDAL HERR IHE Encounter Template Text not used by [place] Assessments - Encounter Diagnoses This section includes the primary and secondary diagnoses documented for the Encounter. Date/Time Primary/Secondary Diagnosis Diagnosis Name Provider Source Mar 05, 2025 11:55 AM PRIMARY Encounter for fitting and adjustment of hearing aid VIDAL HERR [place] [facility] [place] [facility] Mar 05, 2025 11:55 AM SECONDARY Sensorineural hearing loss, bilateral CARMENZAVIDAL E [place] [facility] [place] [facility] Social History: Smoking Status (Most current) and Tobacco Use (All prior to encounter date) This section includes the most current, and the historical, smoking and tobacco- related health factors from the [place] facility where the Encounter took place. Current Smoking Status This section includes the most current smoking, or tobacco-related health factor, from the [place] facility where the Encounter took place. Date/Time Current Smoking Status Comment Facil ity Apr 11, 2024 09:30 AM VA-TOBACCO FORMER USER [place] [facility] [place] [facility] Tobacco Use History This section includes a history of the smoking, or tobacco-related health factors, that were collected on or before the date of the Encounter. The data comes from the [place] facility where the Encounter took place. Date/Time Smoking Status/Tobacco Use Comment F acility Apr 11, 2024 09:30 AM VA-TOBACCO QUIT 5 TO < 15 YRS [place] [facility] [place] [facility] Apr 09, 2023 09:00 AM VA-TOBACCO FORMER USER [facility] [place] [facility] Apr 09, 2023 09:00 AM VA-TOBACCO QUIT 5 TO < 15 YRS [facility] [place] [facility] Apr 13, 2022 09:30 AM VA-TOBACCO FORMER USER [facility] [place] [facility] Apr 13, 2022 09:30 AM VA-TOBACCO QUIT 5 TO < 15 YRS [place] [facility] [place] [facility] Apr 12, 2021 11:30 AM VA-TOBACCO FORMER USER [facility] [place] [facility] Apr 12, 2021 11:30 AM VA-TOBACCO QUIT 5 TO < 15 YRS [facility] [place] [facility] Mar 19, 2020 09:00 AM VA-TOBACCO FORMER USER [facility] [place] [facility] Mar 19, 2020 09:00 AM VA-TOBACCO QUIT 5 TO < 15 YRS [facility] [place] [facility] December 12, 2018 10:18 AM VA-TOBACCO FORMER USER [facility] [place] [facility] December 12, 2018 10:18 AM VA-TOBACCO QUIT 5 TO < 15 YRS [facility] [place] [facility] Jan 21, 2018 07:50 AM QUIT TOBACCO USE > 7 YEARS AGO [facility] [place] [facility] Dec 25, 2016 10:59 AM QUIT TOBACCO USE > 7 YEARS AGO [facility] Advance Directives: All historical and current Section Date Range: From patient's date of to the date document was created. This section includes ALL of a patient's completed or amended [place] Advance and Rescinded Directives. The entries below indicate that a directive exists for the patient, but an actual copy is not included with this document. The data comes from all [place] facilities. Date Advance Directives Provider Source May 23, 2015 ADVANCE DIRECTIVE [facility]BER PENA BRIDGER [facility] Encounter Notes: All associated encounter notes This section contains the clinical notes associated to the Encounter. Date/Time Encounter Note(s) Provider Source Mar 05, 2025 07:42 AM AUDIOLOGY E & M NO TE: [facility] TITLE: AUDIOLOGY CLINIC STANDARD TITLE: AUDIOLOGY E & M NOTE DATE OF NOTE: MAR 05, 2025@07:42 ENTRY DATE: MAR 05, 2025@07:42:57 AUTHOR: VIDAL HERR COSIGNER: URGENCY: STATUS: COMPLETED [place] has a history of bilateral sensorineural hearing loss. He was seen on 03-05-25 for hearing aid follow up regarding his Oticon EDWIGE Rs/earmold mushroom picker. The right computer engineer was inserted into the new earmold. When the left was tried, the power computer engineer is too large to fit through the cavity of the earmold to click in. As a result, the computer engineer had to be replaced with an 85 and settings reconfigured. New feedback tests were run with good results. [place] noted good sound quality. A size 4 computer engineer length was initially installed on the left aid and a size 3 had to be installed after determining it was too long. [place] will contact the clinic as needed. /kristen/ Checo SCHULTZ, [facility]-A STAFF SHIRT BANDER Signed: 03/05/2025 11:58 VIDAL HERR [place] [facility]
--- OUTSIDE RECORDS SUMMARY | 2025-03-17 02:08 | XMS_ITS | Continuity of Care Document ---
Author Name [facility] Organization [facility] Care Team Providers Care Production Administrator Name Role Phone [facility] Unavailable Unavailable Problems Combined list of problems from Department of Defense and Veterans Affairs facilities. It does not include entries that were removed or entered in error. Problem Status Onset Date Problem Type Date of Resolution Comments Source Adult screening status Active Condition December 12, 2018 Entered By: EMMANUEL JI Comment: 11/2018 - No evidence of abdominal aortic aneurysm. [facility] AF - Atrial fibrillation Active Condition Jan 13, 2025 Entered By: PERCY BULLOCK Comment: ablation in 2021 [facility] Allergy Active Condition [facility] Arrhythmia Active Condition Apr 04 019 Entered By: EMMANUEL JI Comment: MED: Metoprolol / taper off flecainide( start 02/2019)Apr 04, 2019 Entered By: EMMANUEL JI Comment: Per pt - [facility]x [facility] left bundle [facility] Bladder cancer Active Condition Dec 142016 Entered By: JORGE MONTESINOS Comment: TURB procedures x 5. Diagnosed in 2012. [facility] Chronic obstructive pulmonary disease Active Condition [facility] Does use hearing aid Active Condition [facility] Exposure to potentially hazardous substance (SCT [id number]) Active Condition Oct 18 4 Entered By: LIUDMILA SUBRAMANIAN Comment: Entered automatically through [facility] Problem List documentation program [facility] Exposure to potentially hazardous substance (SCT [id number]) Active Condition Apr 15 4 Entered By: AMISHA GÓMEZ Comment: Entered automatically through [facility] Problem List documentation program [facility] 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 [facility] Gastroesophageal reflux disease Active [...] Comment: DR Corrie BLANTON ( [facility]) - visit 12/11/18Jul 2017 Entered By: EMMANUEL JI Comment: [place] - SEE GINNER HELPER WHEN IN [place] ( JUN THRU NOVEMBER )Apr 30, 2018 Entered By: EMMANUEL JI Comment: NON [facility] -December 12, 2018 Entered By: EMMANUEL JI Comment: NON [place] urologist ( [place] ( [facility]- DR Del Valle / Lenin COHEN - [...] H90.3 Sensorineural hearing loss, bilateral Active Diagnosis [facility] Diagnosis: ICD-10-CM I48.91 Unspecified atrial fibrillation Active Diagnosis [facility] Diagnosis: ICD-10-CM 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 [facility] Medications Combined list of outpatient [...] G RESPIR ATORY (INHAL ATION) ACTIVE 04/18/2025 [id number] RAAPERCY 2023 60 [facility] APIXABAN 5MG TAB TAKE ONE TABLET BY MOUTH EVERY 12 HOURS ORAL ACTIVE RA DARREN RODRIGUEZYN 2021 [facility] APIXABAN 5MG TAB TAKE ONE TABLET BY MOUTH EVERY 12 HOURS ORAL ACTIVE AZASharyn ARELLANO 2023 [facility] ASPIRIN 81MG TAB,EC TAKE ONE TABLET BY MOUTH TWICE DAILY ORAL complet Mike Martinez 2018 [facility] CETIRIZINE HCL 10MG TAB TAKE ONE-HALF TABLET BY MOUTH EVERY DAY ORAL ACTIVE AZARBSharyn RAZO 2023 [facility] DOCETAXEL INJ,CONC INJECT INTRAVEN OUSLY INTRAV ENOUS ACTIVE AZARBSharyn RAZO [facility] 2023 [facility] DOCUSATE NA 250MG CAP TAKE 1 CAPSULE BY MOUTH EVERY DAY ORAL ACTIVE AZARBSharyn RAOZ 2023 [facility] FLUTICASONE 250MCG/SALM ETEROL 50MCG INHL,ORAL,D ISKUS,60 INHALE 1 PUFF BY MOUTH EVERY DAY ORAL ACTIVE AZASharyn ARELLANO 2023 [facility] FLUTICASONE 500MCG/SALM ETEROL 50MCG INHL,ORAL,D ISKUS,60 INHALE 1 PUFF BY MOUTH TWICE DAILY RESPIR ATORY (INHAL ATION) ACTIVE PERCY BULLOCK 2024 [facility] GEMCITABINE HCL INJ INJ INJECT 200 MG INTRAVEN OUSLY INTRAV ENOUS ACTIVE Sharyn ROBLES 2023 [facility] HYDROXYZINE HCL 10MG TAB TAKE ONE TABLET BY MOUTH ORAL ACTIVE PERCY BULLOCK 2024 [facility] IPRATROPIUM BR 0.03% SOLN,SPRAY, NASAL 1 SPRAY INTO EACH NOSTRIL EVERY DAY NASAL ACTIVE Sharyn [facility] 2023 [facility] METOPROLOL SUCCINATE 100MG TAB,SA TAKE ONE-HALF TABLET BY MOUTH TWICE A DAY ORAL ACTIVE Sharyn ROBLES 2023 [facility] METOPROLOL TARTRATE 50MG TAB TAKE ONE TABLET BY MOUTH TWICE DAILY ORAL ACTIVE PETROFF,S 2018 [facility] OMEPRAZOLE 20MG CAP,EC TAKE 1 CAPSULE BY MOUTH EVERY DAY ORAL ACTIVE Sharyn [place] [facility]2023 [facility] OMEPRAZOLE 20MG CAP,EC TAKE 1 CAPSULE BY MOUTH EVERY MORNING 30 MINUTES BEFORE BREAKFAS T ORAL ACTIVE PETROFF,S 2018 [facility] POLYETHYLEN E GLYCOL 3350 PWDR,ORAL TAKE 17 GM (ONE CAPFUL) BY MOUTH EVERY DAY ORAL ACTIVE AZARBSharyn RAZO [facility] 2023 [facility] PREDNISONE 20MG TAB TAKE TWO TABLETS BY MOUTH ONCE DAILY COPD FLARE ORAL 05/11/2024 [id number] PERCY BULLOCK 2023 10 [facility] SIMVASTATIN 80MG TAB TAKE ONE-HALF TABLET BY MOUTH AT BEDTIME ORAL ACTIVE Sharyn ROBLES 2023 [facility] SIMVASTATIN 80MG TAB TAKE ONE-HALF TABLET BY MOUTH AT BEDTIME ORAL ACTIVE PETROFF,S 2018 [facility] TIOTROPIUM 18MCG CAP,INHL,30 INSERT 1 CAPSULE INTO AEROLIZE R AND INHALE BY MOUTH EVERY DAY RESPIR ATORY (INHAL ATION) ACTIVE Sharyn ROBLES 2023 [facility] Allergies, Adverse Reactions, Alerts Combined list of allergies from Department of Defense and Veterans Affairs facilities. It does not include entries that were removed or entered in error. Substance Category Reaction Severity Reaction type Status Date Reported Comments Source AMOXICILLIN Propensity to adverse reactions to drug (finding) Jaundice SEVERE active 4 [facility] CODEINE Propensity to adverse reactions to drug (finding) Nausea and vomiting active 4 [facility] MULTAQ Propensity to adverse reactions to drug (finding) Eruption active 2 [facility] Immunizations Combined list of available immunizations from the Department of Defense and Veterans Affairs facilities. Immunization Series Date Given Administered By Site Reaction Lot Number CVX Code Drug Hearing Care Practitioner Status Comments Source INFLUENZA, HIGH-DOSE, TRIVALENT, PF 2023 ALEC BENTLEY RIGHT DELTO ID [id number] 135 complet ed ADMINISTE RED AT [facility] RSV, BIVALENT, PROTEIN SUBUNIT RSVPREF, DILUENT RECONSTITUTED , 0.5 ML, PF 2023 ALEC BENTLEY LEFT DELTO ID [id number] 305 complet ed ADMINISTE RED AT [place], Sterile water diluent Lot #- [id number] 11/2024 [facility] RSV, RECOMBINANT, PROTEIN SUBUNIT RSVPREF, ADJUVANT RECONSTITUTED , 0.5 ML, PF 2022 303 complet ed HISTORICA L INFORMATI ON - FROM OTHER REGISTRY, [facility] INFLUENZA, HIGH-DOSE, QUADRIVALENT 2022 ALEC BENTLEY LEFT DELTO ID [id number] 197 complet ed Completed Series, ADMINISTE RED AT [facility] INFLUENZA, UNSPECIFIED FORMULATION 2022 88 complet ed HISTORICA L INFORMATI ON - FROM PATIENT'S WRITTEN RECORD, [facility] COVID-19 (PFIZER), MRNA, LNP-S, PF, 30 MCG/0.3 ML DOSE 2020 208 complet ed Booster for Series, [facility] INFLUENZA, UNSPECIFIED FORMULATION 2020 88 complet ed [facility] COVID-19 (PFIZER), MRNA, LNP-S, PF, 30 MCG/0.3 ML DOSE 2 2020 208 complet ed [facility] COVID-19 (PFIZER), MRNA, LNP-S, PF, 30 MCG/0.3 ML DOSE 1 2020 208 complet ed [place] [facility] RECOMBINANT 1 2018 187 complet ed HISTORICA L INFORMATI ON - FROM OTHER REGISTRY, [facility] ZOSTER RECOMBINANT 1 2018 187 complet ed HISTORICA L INFORMATI ON - FROM OTHER REGISTRY, [facility] INFLUENZA, TRIVALENT, ADJUVANTED 2018 168 complet ed Site: Left Deltoid [facility] INFLUENZA, SEASONAL, INJECTABLE 2017 141 complet ed Site: Left Deltoid [facility] INFLUENZA, SEASONAL, INJECTABLE 2016 141 complet ed [facility] PNEUMOCOCCAL CONJUGATE PCV 13 2015 133 complet ed [facility] PNEUMOCOCCAL POLYSACCHARID E PPV23 2014 33 complet ed [facility] TDAP 2014 115 complet ed [facility] Vital Signs Combined list of inpatient and outpatient Vital Signs from Department of Defense and Veterans Affairs, ranging from 12 months to all on record, depending upon the facility. Vital Sign Value Date Comments Source SYSTOLIC BLOOD PRESSURE 126 01/14/20 25 10:53:49 [facility] DIASTOLIC BLOOD PRESSURE 80 025 10:53:49 [facility] PULSE OXIMETRY 95 % 01/13/2025 10:53:49 [facility] WEIGHT 205 01/13/2025 10:53:49 [facility] BMI 33 kg/m2 01/13/2025 10:53:49 [facility] PAIN 0 01/13/2025 10:53:49 [facility] TEMPERATURE 97 01/13/2025 10:53:49 [facility] PULSE 70 01/13/2025 10:53:49 [facility] RESPIRATION 16 01/13/2025 10:53:49 [facility] SYSTOLIC BLOOD PRESSURE 125 04/11/20 24 09:48:39 [facility] DIASTOLIC BLOOD PRESSURE 80 024 09:48:39 [facility] PULSE OXIMETRY 94 04/11/2024 09:48:39 [facility] WEIGHT 208.2 04/11/2024 09:48:39 [facility] BMI 34 kg/m2 04/11/2024 09:48:39 [facility] PAIN 1 04/11/2024 09:48:39 [facility] TEMPERATURE 97.5 04/11/2024 09:48:39 [facility] PULSE 68 04/11/2024 09:48:39 [facility] [...] ADM Date DC Date Status Disposition Source [facility] Outpatient Encounter [id number] 09/19 [facility] Outpatient Encounter [id number] 09/23 [facility] OFFICE O/P [place] 60 MIN [id number] Diagnos is: ICD-10- CM D09.0 Carcino ma in situ of bladder LYNNETTE ROBLES 09/23 [facility] TARGETED CASE MANAGEMENT [id number] KARELY ARANA 09/25 [facility] HEARING AID FITTING/CH ECKING [id number] Diagnos is: ICD-10- CM Z46.1 Encount er for fitting and adjustm ent of hearing aid Tiesha HERR 12/19 [facility] Outpatient Encounter [id number] 02/07 [facility] Outpatient Encounter [id number] 02/07 [facility] HEARING AID REPAIR/MOD IFYING [id number] Diagnos is: ICD-10- CM H90.3 Sensori neural hearing loss, bilater al ILANA PITTS L 03/10 [facility] OFFICE O/P EST MOD 30 MIN [id number] Diagnos is: ICD-10- CM I48.91 Unspeci fied atrial fibrill ation Corrie BULLOCK 04/11 [facility] HEARING SERVICE [id number] Diagnos is: ICD-10- CM Z46.1 Encount er for fitting and adjustm ent of hearing aid ILANA PITTS L 04/11 [facility] En[facility] [id number] 04/12 [facility] SPECIAL SUPPLIES PHYS/QHP [id number] Diagnos is: ICD-10- CM J44.9 Chronic obstruc tive pulmona ry disease , unspeci fied [facility] MAS E P 04/17 [facility] Encounter [id number] 04/18 [facility] Outpatient Encounter [id number] 04/18 [facility] Outpatient Encounter [id number] 04/21 [facility] Outpatient Encounter [id number] 04/22 [facility] HEARING AID CHECK BOTH EARS [id number] Diagnos is: ICD-10- CM Z46.1 Encount er for fitting and adjustm ent of hearing aid CHUY ORTIZ L 04/29 [facility] En[facility] [id number] 05/16 [facility] Out[facility] Encounter [id number] 05/19 [facility] HEARING AID FITTING/CH ECKING [id number] Diagnos is: ICD-10- CM Z46.1 Encount er for fitting and adjustm ent of hearing aid ILANA PITTS L 05/20 [facility] Out[facility] Encounter [id number] 06/24 [facility] Encounter [id number] 06/30 [facility] Encounter [id number] 07/28 [facility] HEARING AID FITTING/CH ECKING [id number] Diagnos is: ICD-10- CM Z46.1 Encount er for fitting and adjustm ent of hearing aid Tiesha HERR 12/25 [facility] Out[facility] Encounter [id number] 01/13 [facility] HEARING AID FITTING/CH ECKING [id number] Diagnos is: ICD-10- CM H90.3 Sensori neural hearing loss, bilater al LYNNETTE ORTIZL L 01/13 [facility] OFFICE O/P EST MOD 30 MIN [id number] Diagnos is: ICD-10- CM J44.9 Chronic obstruc tive pulmona ry disease , unspeci fied ARA,L MICH KYMBERLY 01/13 [facility] HEARING AID FITTING/CH ECKING [id number] Diagnos is: ICD-10- CM H90.3 Sensori neural hearing loss, bilater bharat CAVAZOS,ZEB OLE L 01/19 [facility] Out[facility] Encounter [id number] 02/02 [facility] SPECIAL SUPPLIES PHYS/QHP [id number] Diagnos is: ICD-10- CM J44.9 Chronic obstruc tive pulmona ry disease , unspeci fied [facility] MAS E P 02/04 [facility] HEARING AID REPAIR/MOD IFYING [id number] Diagnos is: ICD-10- CM Z46.1 Encount er for fitting and adjustm ent of hearing aid NAGEL,CHUY L 02/11 [facility] HEARING AID FITTING/CH ECKING [id number] Diagnos is: ICD-10- CM Z46.1 Encount er for fitting and adjustm ent of hearing aid Tiesha HERR E 03/05 [facility] Social History Combined list of available smoking, tobacco, and other social history from Department of Defense and Veterans Affairs facilities. Social History Type Response Date Comment Sourc e Tobacco smoking status [facility] VA-TOBACCO FORMER USER 04/11/2024 [facility] History of tobacco use VA-TOBACCO QUIT 5 TO < 15 YRS 04/11/2024 [facility] History of tobacco use VA-TOBACCO FORMER USER 09/24/2023 [facility] History of tobacco use VA-TOBACCO FORMER USER 04/09/2023 [facility] History of tobacco use VA-TOBACCO QUIT 5 TO < 15 YRS 04/13/2022 [facility] History of tobacco use VA-TOBACCO FORMER USER 04/12/2021 [facility] History of tobacco use VA-TOBACCO QUIT 5 TO < 15 YRS 03/19/2020 [facility] History of tobacco use VA-TOBACCO QUIT 5 TO < 15 YRS 12/12/2018 [facility] History of tobacco use QUIT TOBACCO USE > 7 YEARS AGO 01/21/2018 [facility] History of tobacco use QUIT TOBACCO USE > 7 YEARS AGO 12/25/2016 [facility] Advance Directives List of completed, amended, or rescinded Advance Directives on record at Department of [facility] facilities. An actual copy of the Directive is not included. Date Advance Directive Provider Source 05/23/2015 ADVANCE DIRECTIVE [facility]
[2025-03-17 07:09] VITALS: BP 124/80; PULSE 85; RESP 17; TEMP 37.2; O2SAT 95; BMI 33.4
--- NOTE | 2025-03-17 07:09 | AM.OFFWIN_ITS ---
Intake Vital Signs 03/17/25 07:09 Height 5 ft 6 in Weight 207 lb BMI 33.4 BP 124/80 Blood Pressure Location Lt brachial Position Sitting Respiration 17 Pulse 85 Pulse Source Pulse Oximeter Temp 99.0 F Temp Source Oral Pulse Oximetry (%) 95 Oxygen Delivery Method Room Air Intake Visit Reasons: ep not feeling well coughing up phlem vertigo Intake Note: Pt is here today c/o chest and nasal congestion and vertigo x2days Patient Tobacco Use Status: Former Tobacco user Allergies dronedarone (From Multaq) Allergy (Mild, Verified 01/29/25 09:37) Rash amoxicillin (From Augmentin) Allergy (Verified 01/29/25 09:37) liver failure clavulanic acid (From Augmentin) Allergy (Verified 01/29/25 09:37) liver failure Penicillins Adverse Reaction (Intermediate, Verified 01/29/25 09:37) Unknown HPI HPI Comments History of Present Illness Details History - The patient is a 75-year-old male pres enting with chest congestion and cough. - Symptoms have persisted for a week, wi th worsening severity. - Dizziness is noted, with head congesti on. - History of COPD with increased shortne ss of breath, managed with inhalers and nebulizer. - Allergies are managed by an editor map, with ongoing treatment. - Regular use of CPAP machine for sleep apnea management, rinses it but doesn't wash it. - Is using Flonase and a decongestant. - Is traveling to [place] on Sunday. Physical Exam General: Cooperative, healthy appearing, comfortable and no acute distress Orientation/consciousness: Patient oriented x3 Limitations: No limitations Head: Normal to inspection Ears: Hearing grossly normal bilaterally, external ears normal, fluid present in ears Nose: Normal external nose present, Normal nares present and No nasal discharge present Face and sinus: Normal facial exam and Sinuses tender Mouth: Normal oral and palatal mucosa present and moist mucous membranes Throat: Yes tonsils normal, Yes uvula midline. Posterior oropharynx erythema, no exudates Eyes: Appearance normal, both eyes and all related structures Neck: Normal visual inspection, full ROM Respiratory: Clear to auscultation bilaterally. Normal respiratory effort, able to speak in complete sentences, not actively coughing, no respiratory distress, not tachypneic, no tripod positioning and no use of accessory muscles Cardiovascular: Regular rate and rhythm. Normal S1 and S2 Skin: No rashes or lesions noted Neuro: Patient oriented x3 Extremities: Normal to inspection and Yes no clubbing, cyanosis or edema PFSH Medical History Bladder cancer Atrial fibrillation SVT (supraventricular tachycardia) LBBB (left bundle branch block) PVC (premature ventricular contraction) Hypercholesterolemia Asthma COPD (chronic obstructive pulmonary disease) Jaundice ANALY on CPAP Personal history of nicotine dependence History of COVID-19 History of small bowel obstruction GERD (gastroesophageal reflux disease) Erectile dysfunction Obesity (BMI 30-39.9) Surgical History History of colonoscopy (~11/26/19) History of foot surgery (~2021) History of laparotomy (~2020) History of arthroplasty of right knee (~2020) History of meniscectomy of right knee (~2011) History of cataract surgery (~2020) History of appendectomy History of arthroplasty of left knee (~2019) History of meniscectomy of left knee (~2018) History of bladder surgery Hx of transurethral destruction of bladder lesion Family History Father Lung cancer Mother History of breast cancer Sister Multiple myeloma Other Cough Social History Household Members: Spouse Housing: House Are you a primary adult day care worker to a significant other at home: No Do you presently have visiting nurse or other home services: No Alcohol intake: former Patient Tobacco Use Status: Former Tobacco user Tobacco use type: Cigarette Years Smoked: (former smoker - onset 14yo, 1ppd x 46yrs, 45pyh, quit 2009) e-Cigarette/Vaping Use: Never Used Second Hand Smoke Exposure: No Advance Directives Date on File: 02/14/21 service: Yes ([employer] - served in [facility]) Current occupational status: retired Current occupational exposures/hazards: Yes (was exposed to [employer] [place] while serving in [employer]) Cognitive needs: No Hearing needs: Yes (hearing aide) Vision needs: No Review of Systems Const All systems reviewed & are unremarkable except as noted in HPI and below Physical Exam Vital Signs: Last Vital Signs Temp 99.0 F 03/17/25 07:09 Pulse 85 03/17/25 07:09 Resp 17 03/17/25 07:09 BP 124/80 03/17/25 07:09 Pulse Ox 95 03/17/25 07:09 Oxygen Delivery Method Room Air 03/17/25 07:09 BMI result Body Mass Index 33.4 Assessment & Plan Assessment & Plan (1) Acute upper respiratory infection: Code(s): J06.9 - Acute upper respiratory infection, unspecified Plan: Plan Patient was informed and verbally consented to the use of an ambient scribe for clinic note documentation during this visit VSS, pt well appearing and PE unremarkable. Likely COPD exacerbation 2/2 Viral Respiratory Infection - Continue current inhaler and nebulizer regimen. - Monitor for increased shortness of breath and use rescue inhaler as needed. - Prescribed azithromycin (Z-Jacobo) for anti-inflammatory effects and potential bacterial coverage. - Recommended use of antihistamines and Flonase to manage symptoms. - Advised to use cough suppressants at night to aid sleep. - Viral panel ordered to identify specific viral pathogens. If negative and no improvement in symptoms after 48hrs on zpak, send Augmentin to pharmacy. - Ensure regular cleaning and maintenance of CPAP tubing and machine with soap and water. - Continue nightly use to manage sleep apnea. Orders: Orders Resp Pathogen Panel - [facility] [place] Today J06.9 - Acute upper respiratory infection, unspecified Medications: New azithromycin For 250 mg dose pack: take 500 mg today (day 1), then 250 mg for 4 days (days 2-5) PO 6 tabs 0RF benzonatate 200 mg PO BEDTIME PRN 10 caps 0RF cough Coding Level of Care Code New Pt Level 3 (33131) Diagnoses Acute upper respiratory infection J06.9
--- OUTSIDE RECORDS SUMMARY | 2025-03-17 07:10 | XMS_ITS | Patient Health Record ---
Author Organization [facility] Address [address] [facility] [address] [place] [address] Care Team Providers Care Ticket Counter Name Role Phone yanet ly Primary Care Provider Unavailabl e Allergies Allergen (clinical drug ingredient) Drug/Non Drug Allergy documented on EMR Reaction Allergy Type Onset Date Status dronedarone Multaq rash Drug Allergy Activ e Reason For Referral No Information Medications Medication SIG (Take, Route, Frequency, Duration) Notes Start Date End Date Status Ipratropium [place] 0.03 % 2 sprays in e ach nostril Nasally Twice a day Active oxyCODONE HCl 5 MG 1 tablet as needed Orally every 4 hours PRN pain; Duration: 5 days 12/16/2021 Not-Taking Omeprazole 20 MG [...] as needed Orally every 8 hrs PRN itching/nausea; Duration: 10 days 12/16/2021 Not-Taking Acetaminophen 500 MG 1 tablet as needed Orally every 4 hrs; Duration: 30 days 12/16/2021 Not-Taking Simvastatin 40 MG 1 tablet in the evening Orally Once a day Not-Taking Metoprolol Tartrate 50 MG 1 tablet with food Orally Twice a day Active Problems Problem Type SNOMED Code ICD Code Onset Dates Problem Status W/U Status Risk Notes Problem Acquired hallux rigidus (1248730) Hallux rigidus of right foot (M20.21) Active confirmed Problem Long-term current use of anticoagulant (963242742) Anticoagulant long-term use (Z79.01) Active confirmed Plan [...] Date Coverage End Date [employer] Medicare [id number] [address] [address] [place] [address] [id number] Volodymyr Richards Self - patient is the [...]
--- OUTSIDE RECORDS SUMMARY | 2025-03-17 07:10 | XMS_ITS | Patient Health Record ---
Author Organization [facility] Address [address] [place] [address] Care Team Providers Care Banquet Director Name Role Phone Po Any CUI Primary Care Provider Darrian Galvez [phone] Allergies Allergen (clinical drug ingredient) Drug/Non Drug Allergy documented on EMR Reaction Allergy Type Onset Date Status doxycycline Doxycycline jaundice Drug Allergy Act eva amoxicillin Amoxicillin jaundice Drug Allergy Act eva Results Component Value Reference Range Notes Liver Panel Reviewed date:03/31/2024 08:49:38 AM Interpretation: Performing Lab:[facility], [address] [place] [phone] Notes/Report: Bilirubin Total 1.1 0.0-1.0 mg/dL Bilirubin Direct 0.5 0.0-0.5 mg/dL Aspartate Amino Transferase 28 5-37 U/L Alanine Aminotransferase 49 0-40 U/L Total Protein 7.0 6.5-8.0 g/dL Albumin Level 3.9 3.5-5.0 g/dL Alkaline Phosphatase 72 39-117 U/L Liver Panel Reviewed date:11/29/2024 06:40:17 PM Interpretation: Performing Lab:[facility], [address] [place] [phone] Notes/Report: Bilirubin Total 0.6 0.0-1.0 mg/dL Bilirubin Direct 0.3 0.0-0.5 mg/dL Aspartate Amino Transferase 20 5-37 U/L Alanine Aminotransferase 26 0-40 U/L Total Protein 7.1 6.5-8.0 g/dL Albumin Level 4.0 3.5-5.0 g/dL Alkaline Phosphatase 60 39-117 U/L Liver Fibrosis Pnl Reviewed date:12/12/2024 12:00:36 AM Interpretation: Performing Lab:[facility], [address] [place] [phone] Notes/Report: Liver Fibrosis Score 0.37 Liver Fibrosis Stage F1-F2 Liver Fibrosis Interpretation SEE NOTE minimal fibrosis Fibro Test Score (f) Metavir Score f>=0 and f<=0.21 : F0 (no fibrosis) f>0.21 and f<=0.27 : F0-F1 (no fibrosis) f>0.27 and f<=0.31 : F1 (minimal fibrosis) f>0.31 and f<=0.48 : F1-F2 (minimal fibrosis) f>0.48 and f<=0.58 : F2 (moderate fibrosis) f>0.58 and f<=0.72 : F3 (advanced fibrosis) f>0.72 and f<=0.74 : F3-F4 (advanced fibrosis) f>0.74 and f<=1.00 : F4 (severe fibrosis) Nec Inflam Act Score 0.09 Nec Inflam Act Grade A0 Nec Inflam Act Interpretation SEE NOTE no activity ActiTest Score (a) Metavir Score a>=0 and a<=0.17 : A0 (no activity) a>0.17 and a<=0.29 : A0-A1 (no activity) a>0.29 and a<=0.36 : A1 (minimal activity) a>0.36 and a<=0.52 : A1-A2 (minimal activity) a>0.52 and a<=0.60 : A2 (significant activity) a>0.60 and a<=0.62 : A2-A3 (significant activity) a>0.62 and a<=1.00 : A3 (severe activity) KBX-Knqpv-0-Macroglobulin 248 106-279 mg/dL FIB-Haptoglobin 149 43-212 mg/dL FIB-Apolipoprotein A1 156 94-176 mg/dL FIB-Total Bilirubin 0.5 0.2-1.2 mg/dL FIB-GGT 17 3-70 U/L FIB-ALT 20 9-46 U/L Reference ID [id number] Footnote SEE NOTE The reliability of results is dependent on compliance with the preanalytical and analytical conditions recommended by [employer]. The tests have to be deferred for: acute hemolysis, acute hepatitis, acute inflammation, extra hepatic cholestasis. The advice of a specialist should be sought for interpretation in chronic hemolysis and Gilbert's syndrome. The test interpretation is not validated in liver transplant patients. Isolated extreme values of one of the components should lead to caution in interpreting the results. In case of discordance between a biopsy result and a test, it is recommended to seek the advice of a specialist. The causes of these discordances could be due to a flaw of the test or to a flaw in the biopsy: i.e. a liver biopsy has a 33% variability rate for one fibrosis stage. FibroTest is interpretable for chronic hepatitis B and C, alcoholic and non alcoholic steatosis. ActiTest is interpretable for chronic hepatitis B and C. The performance characteristics have been determined by [facility]. It has not been cleared or approved by the U.S. Food and Drug Administration. Performance characteristics refer to the analytical performance of the test. [employer], the associated logo, [employer] and all associated [employer] howard are the registered trademarks of [employer]. All third green party howard - (R) and (TM) - are the property of their respective owners. (C) [id number] [employer]. All rights reserved. THIS TEST WAS PERFORMED AT: [employer] [address] [place] [address] JUAN MIGUEL GILMORE MD,PHD,MINNIE Bile Acids Total, Fractionat ed Reviewed date:12/12/2024 07:37:13 AM Interpretation: Performing Lab:[facility], [address] [place] [phone] Notes/Report: Cholic Acid <0.5 < OR = 1.8 umol/L Deoxycholic Acid <0.5 < OR = 2.4 umol/L Chenodeoxycholic Acid 0.8 < OR = 3.1 umol/L Total Bile Acids <1.5 < OR = 6.8 umol/L This test was developed and its analytical performance characteristics have been determined by [employer]. It has not been cleared or approved by the FDA. This assay has been validated pursuant to the CLIA regulations and is used for clinical purposes. THIS TEST WAS PERFORMED AT: [employer] [address] [place] [address] JUAN MIGUEL GILMORE MD,PHD,MINNIE Pathology (Not yet reviewed by provider) Interpretation: Performing Lab:[facility], [address] [place] [phone] Notes/Report: Reason For Referral No Information Medications Medication [...] Problem Status W/U Status Risk Notes Problem [id number] Encounter for screening for malignant neoplasm of colon (Z12.11) Active confirmed Problem 945448044 Elevated LFTs (R79.89) Active confirmed Problem [id number] Preprocedural examination (Z01.818) Active confirmed Problem 99068945 Iron excess (E83.19) Active confirmed Problem Jaundice (18177604) Jaundice (R17) Active confi rmed Problem Gastroesophageal reflux disease (950011610) GERD (gastroesophagea l reflux disease) (K21.9) Active confirmed Problem 124887238 Hx of adenomatous colonic polyps (Z86.010) Active confirmed Problem Pruritus (179053973) Pruritus (L29.9) Active confirmed Problem Elevated liver enzymes level (201857497) Elevated liver function tests (R94.5) Active confirmed Vital Signs Blood pressure diastolic 77 mm Hg 11/20/2024 Height 66 in 11/20/2024 Blood pressure systolic 111 mm Hg 11/20/2024 Weight 200 lbs 11/20/2024 BMI 32.28 kg/m2 11/20/2024 Procedures Procedure Date Ordered Date Performed Result Body Sit e COLONOSCOPY 11/20/2024 N/A Encounters Encounter Location Date Provider Diagnosis [facility] Outpatient [address] [place], [place] [id number] 01/26/2025 Darrian Khan [facility] [address] [place] [phone] 05/16/2024 Darrian Khan Hx of adenomatous colonic polyps Z86.010 ; Jaundice R17 and Encounter for screening for malignant neoplasm of colon Z12.11 [facility] [address] [place] [phone] 11/20/2024 Darrian Khan Hx of adenomatous colonic polyps Z86.010 ; GERD (gastroesophageal reflux disease) K21.9 ; Encounter for screening for malignant neoplasm of colon Z12.11 and Pruritus L29.9 Assessments Encounter Date Diagnosis (ICD Code) Assessment Notes Treatment Notes Treatment Clinical Notes Section Notes 05/16/2024 Jaundice (ICD-10 - R17) Overall, Volodymyr appears quite well. His jaundice and elevated LFTs have resolved completely. We did review the underlying etiology of this again as being that of an allergy to amoxicillin and the need to avoid that and all other drugs in that class half-way, including Augmentin. I don't think he needs [...] and all other drugs in that class rodent exterminator, including Augmentin. I don't think he needs [...] the procedure and we shall advise his chain saw mechanic of that as well. His reflux seems stable on his omeprazole. However, I shall give him a trial of Pepcid 40 mg twice daily to see if that might help with his itching since it does have some antihistamine effect. I did advise him to review this with his casualty underwriter when he sees them in follow-up and [...] the procedure and we shall advise his chain saw mechanic of that as well. His reflux seems stable on his omeprazole. However, I shall give him a trial of Pepcid 40 mg twice daily to see if that might help with his itching since it does have some antihistamine effect. I did advise him to review this with his casualty underwriter when he sees them in follow-up and [...] and all other drugs in that class rodent exterminator, including Augmentin. I don't think he needs [...] keep you advised of his progress. 11/20/2024 Encounter for screening for malignant neoplasm [...] the procedure and we shall advise his chain saw mechanic of that as well. His reflux seems stable on his omeprazole. However, I shall give him a trial of Pepcid 40 mg twice daily to see if that might help with his itching since it does have some antihistamine effect. I did advise him to review this with his casualty underwriter when he sees them in follow-up and [...] the procedure and we shall advise his chain saw mechanic of that as well. His reflux seems stable on his omeprazole. However, I shall give him a trial of Pepcid 40 mg twice daily to see if that might help with his itching since it does have some antihistamine effect. I did advise him to review this with his casualty underwriter when he sees them in follow-up and [...] Order Date COLONOSCOPY 11/20/2024 CHEM 7 PROFILE 02/26/2024 CHEM 7 PROFILE 06/16/2022 CHEM 7 PROFILE 06/14/2022 LIVER PROFILE 03/02/2024 LIVER PROFILE 02/19/2024 LIVER PROFILE 06/14/2022 LIVER PROFILE 11/20/2024 LIVER PROFILE 03/13/2024 LIVER PROFILE 02/26/2024 LIVER PROFILE 08/11/2022 LIVER PROFILE 08/11/2022 LIVER PROFILE 06/16/2022 LIVER PROFILE 06/21/2022 LIVER PROFILE 06/29/2022 IRON + IBC (FE) 02/19/2024 IRON + IBC (FE) 08/11/2022 IRON + IBC (FE) 08/11/2022 IRON + IBC (FE) 06/16/2022 FERRITIN 02/19/2024 CRP 06/16/2022 CBC w DIFF 06/14/2022 CBC w DIFF 02/26/2024 CBC w/o DIFF 02/19/2024 SED RATE (ESR) 06/16/2022 PROTHROMBIN TIME (PT, INR) 06/16/2022 PROTHROMBIN TIME (PT, INR) 06/21/2022 PROTHROMBIN TIME (PT, INR) 02/26/2024 PROTHROMBIN TIME (PT, INR) 02/19/2024 HEPATITIS A,B,C PROFILE 02/19/2024 HEPATITIS A,B,C PROFILE 06/16/2022 [id number] (A1A) 06/16/2022 MITOCHONDRIAL AB 02/19/2024 SMOOTH MUSCLE ANTIBODIES 02/19/2024 MRI ABD W&WO CONTRAST 06/16/2022 FLUOR. ANTINUCLEAR AB SCREEN (WESLEY) 08/2021 FLUOR. ANTINUCLEAR AB SCREEN (WESLEY) 12/2023 Prothrombin Time INR 06/29/2022 Ferritin 08/11/2022 Ferritin 08/11/2022 Liver Fibrosis Pnl 11/20/2024 Bile Acids Total, Fractionated Pathology 01/26/2025 Future Test Test Name Order Date COLONOSCOPY 01/27/2014 COLONOSCOPY 11/20/2019 Insurance Providers Payer Name Payer Address Payer Phone Subscriber Number Group Number Insured Name Patient Relationship to Insured Coverage Start Date Coverage End Date [facility] [address] [address] [place] [phone] [id number] VOLODYMYR ARNOLD Self - patient is the insured Medical (General) History Medical History History ICD Code Hyperlipidemia Colonoscopy 10-12-2008--1 tub ular adenoma removed; colonoscopy 03/2014 with 2 small tubular adenomas EGD [place] [address] Walter-- negative except for mild reflux-there was no Hough's esophagus nor significant esophagitis Irregular heartbeat--Atrial fibrillation/PVC's--Dr. Shearer. Had an ablation in 04/[address] Kem [place],DM,CVA,Lung disease,renal dise ase Bladder cancer 06/2013--has periodic [...] amoxicillin and/or doxycycline Recurrence of bladder cancer 2023-seeai [place] Surgical History Surgery Date(Month/Year) cardiac ablasion - dr. Brownlee 2022 DZZ-stortgczd-Eb. Mazzucco 2020 Right big toe Knee replacement-partial--- left 08/2019 Skin cancer removal--basal cell Knee surgery-right Appendectomy Carpal tunnel surgery
== END 2025-03-17 07:44 | disposition home or self-care (01) ==
PROVIDERS: Visit Provider Physician Assistant
DX: J06.9 Acute upper respiratory infection, unspecified (principal)

== ENCOUNTER 2025-04-06 12:18 | Outpatient (AMB) | payer MEDICARE, SELFPAY ==
[2025-04-06 12:34] VITALS: BP 124/68; PULSE 70; BMI 33.2
--- NOTE | 2025-04-06 12:34 | A.OFFVIS_ITS ---
Vital Signs 04/06/25 12:34 Height 5 ft 6 in Weight 206 lb BMI 33.2 BP 124/68 Blood Pressure Location Lt brachial Position Sitting Pulse 70 Pulse Source Monitor Intake Visit Reasons: 1 yr f/up Allergies dronedarone (From Multaq) Allergy (Mild, Verified 01/29/25 09:37) Rash amoxicillin (From Augmentin) Allergy (Verified 01/29/25 09:37) liver failure clavulanic acid (From Augmentin) Allergy (Verified 01/29/25 09:37) liver failure Penicillins Adverse Reaction (Intermediate, Verified 01/29/25 09:37) Unknown Medication List - Last Reconciled 04/06/25 by Tacos Shearer MD albuterol sulfate 1.25 mg inhalation Q4-6H PRN albuterol-budesonide 90-80 mcg/actuation (Airsupra) 2 inhalations inhalation BID PRN apixaban (Eliquis) 5 mg PO BID 90 days azithromycin For 250 mg dose pack: take 500 mg today (day 1), then 250 mg for 4 days (days 2-5) PO benzonatate 200 mg PO BEDTIME PRN cefpodoxime 200 mg PO Q12H CPAP (CPAP Machine/Device) As directed docusate sodium (Colace) 100 mg PO DAILY fluticasone propion-salmeterol 250-50 mcg/dose (Wixela Inhub) 1 inh inhalation BID gemcitabine 1,000 mg IV QWEEK hydroxyzine HCl 10 - 30 mg PO BEDTIME ipratropium bromide 1 spray intranasal DAILY PRN ipratropium-albuterol 0.5 mg-3 mg(2.5 mg base)/3 mL 3 mL inhalation Q4-6H PRN meclizine 25 mg PO TID metoprolol tartrate 25 mg PO BID omeprazole 20 mg PO DAILY 90 days HPI Comments Details: Volodymyr returns for follow-up regarding cardiac arrhythmias. He has a history of PVCs, SVT as well as atrial fibrillation. Due to recurrent atrial fibrillation with rapid rate, he underwent ablation in 2021. In 2022, [facility] visit for question of SVT. Then put on amiodarone but only short term. Remains on beta- blockers only. Also on Eliquis. He has symptoms of either vertigo versus dizziness and difficult to to be sure as he describes symptoms from turning his head as well as getting up from seated position. Otherwise, no angina or shortness of breath or anything else. [facility] Medical History Bladder cancer Atrial fibrillation SVT (supraventricular tachycardia) LBBB (left bundle branch block) PVC (premature ventricular contraction) Hypercholesterolemia Asthma COPD (chronic obstructive pulmonary disease) Jaundice ANALY on CPAP Personal history of nicotine dependence History of COVID-19 History of small bowel obstruction GERD (gastroesophageal reflux disease) Erectile dysfunction Obesity (BMI 30-39.9) Surgical History History of colonoscopy (~11/26/19) History of foot surgery (~2021) History of laparotomy (~2020) History of arthroplasty of right knee (~2020) History of meniscectomy of right knee (~2011) History of cataract surgery (~2020) History of appendectomy History of arthroplasty of left knee (~2019) History of meniscectomy of left knee (~2018) History of bladder surgery Hx of transurethral destruction of bladder lesion Family History Father Lung cancer Mother History of breast cancer Sister Multiple myeloma Other Cough Social History Household Members: Spouse Housing: House Are you a primary overnight caregiver to a significant other at home: No Do you presently have visiting nurse or other home services: No Alcohol intake: former Patient Tobacco Use Status: Former Tobacco user Tobacco use type: Cigarette Years Smoked: (former smoker - onset 14yo, 1ppd x 46yrs, 45pyh, quit 2009) e-Cigarette/Vaping Use: Never Used Second Hand Smoke Exposure: No Advance Directives Date on File: 02/14/21 service: Yes ( [employer] - served in [employer]) Current occupational status: retired Current occupational exposures/hazards: Yes (was exposed to [place] while serving in [employer]) Cognitive needs: No Hearing needs: Yes (hearing aide) Vision needs: No Review of Systems Const Denies weakness ENT Denies dizziness Card Denies chest pain, Denies chest pain with activity, Denies syncope, Denies rapid heart rate, Denies pedal edema, Denies edema, Denies leg edema, Denies lightheadedness, Denies palpitations, Denies dyspnea, Denies dyspnea on exertion and Denies orthopnea Resp Denies cough, Denies dyspnea and Denies dyspnea on exertion GI Denies hematochezia and Denies change in stool character Musc Denies abnormal gait, Denies muscle cramps, Denies muscle weakness, Denies numbness, Denies radiating pain into limb and Denies tingling Neuro Denies abnormal gait, Denies dizziness, Denies syncope, Denies numbness, Denies tingling and Denies weakness Endo Denies palpitations Physical Exam Vital Signs: Last Vital Signs Pulse 70 04/06/25 12:34 BP 124/68 04/06/25 12:34 BMI result Body Mass Index 33.2 Const General: comfortable and no acute distress Orientation/consciousness: patient oriented x3 HEENT Other: Unremarkable Head: Yes normal to inspection Neck Neck: Yes normal visual inspection Chest Chest palpation & inspection: normal inspection of the chest Resp Auscultation: clear to auscultation bilaterally Cardio Palpation: normal PMI Heart sounds: S1 normal heart sound present, S2 normal heart sound present, no gallops, no murmurs and no rubs GI Palpation (GI): Soft to palpation Back/Spine/Pelvis Other: unremarkable Skin General skin exam: no rashes or lesions noted Neuro General: patient oriented x3 Extrem General: Yes normal to inspection Psych Mental Status: mental status grossly normal Office Procedures EKG Details: EKG with sinus rhythm and left bundle-branch block. Ventricular rate 70/Min. [id number], Complete Assessment & Plan Assessment & Plan (1) PAF (paroxysmal atrial fibrillation): Code(s): I48.0 - Paroxysmal atrial fibrillation Category: Medical (2) SVT (supraventricular tachycardia): Code(s): I47.1 - Supraventricular tachycardia Category: Medical (3) PVC (premature ventricular contraction): Code(s): I49.3 - Ventricular premature depolarization Category: Medical (4) LBBB (left bundle branch block): Code(s): I44.7 - Left bundle-branch block, unspecified Category: Medical (5) Obstructive sleep apnea: Comment: Patient is known to have sleep apnea since 2017, has been doing very well with the use of CPAP device. Advised to continue. Code(s): G47.33 - Obstructive sleep apnea (adult) (pediatric) Category: Medical Plan Various arrhythmias over time including PVCs, SVT, atrial fibrillation. Status post MARTIN/cardioversion [place], 2021. Then tried Multaq but developed rash. Currently status post pulmonary vein isolation for atrial fibrillation, 2021. Per most recent documentation from [facility], thought to have had SVT versus atrial flutter in December 2022 and he was placed on amiodarone, used short-term. He is stable on the current regimen of beta-blockers/Eliquis. However, because of concerns of dizziness, he has cut back on the beta-willian dose. Continue without changes. For obstructive sleep apnea, continue CPAP. He continues to spend his time between [place] and [place] and he will contact us as and when necessary. Follow up next year upon return from [place]. Cardiac testing- Echocardiogram 2022-LVEF 55-60%; mild left atrial dilatation; mild mitral regurgitation. Myocardial perfusion imaging-2022- normal. Coding Level of Care Code Est Pt Level 4 (47914) Complex EM visit Add On G2211 Diagnoses PAF (paroxysmal atrial fibrillation) I48.0 SVT (supraventricular tachycardia) I47.1 PVC (premature ventricular contraction) I49.3 LBBB (left bundle branch block) I44.7 Obstructive sleep apnea G47.33 CPT Codes EKG - CPT: 32065-[id number], Complete ([id number])
== END 2025-04-06 12:55 | disposition home or self-care (01) ==
LOC: HO.HCS 12:19
PROVIDERS: PCP Internal Medicine; Visit Provider Internal Medicine
DX: I48.0 Paroxysmal atrial fibrillation (principal); I47.10 Supraventricular tachycardia, unspecified; I49.3 Ventricular premature depolarization; I44.7 Left bundle-branch block, unspecified; G47.33 Obstructive sleep apnea (adult) (pediatric)
CPT/HCPCS: 93010; 99214; G2211

== ENCOUNTER → 2025-04-06 12:18 | Outpatient (BNVA) | payer MEDICARE, SELFPAY | PROVIDERS: PCP Internal Medicine; Visit Provider Internal Medicine | DX: I48.0 Paroxysmal atrial fibrillation (principal); I47.10 Supraventricular tachycardia, unspecified; I49.3 Ventricular premature depolarization; I44.7 Left bundle-branch block, unspecified; G47.33 Obstructive sleep apnea (adult) (pediatric); R94.31 Abnormal electrocardiogram [ECG] [EKG] | CPT/HCPCS: 93005; 99212 ==

== ENCOUNTER 2025-04-17 09:28 | Outpatient (AMB) | payer MEDICARE, SELFPAY ==
--- OUTSIDE RECORDS SUMMARY | 2025-01-26 08:20 | XMS_ITS ---
Author Organization [facility] Address [address] [place] [address] Care Team Providers Care Primary Substance Abuse Counselor Name Role Phone Any Jackson MD Primary Care Provider Darrian Galvez [phone] REASON FOR VISIT screening,hx polyps Encounters Encounter Location Date Provider Diagnosis [facility] Out[facility] [address] [place] [phone] 01/26/2025 Darrian Khan Plan Of Treatment No Information Progress Notes * GENEVIEVE ARNOLD JrDOB: (75 yo M)Acc No.[id number]:01/26/2025 COLON WITH MAC Patient: Neyda WHITTAKERGENEVIEVE Jr Provider: Fang Khan MD :1950 A ge:75 Y S ex:Male Date:01/26/2025 Address:[facility] [address], [facility] [id number] Pcp:Any Jackson MD Subjective: * Chief Complaints: [...] 01/26/2025 Generated for Printi ng/Faxing/eTransmitting on: 1 10:10 AM EDT
[2025-04-17 09:34] VITALS: BP 120/60; PULSE 74; TEMP 36.7; O2SAT 95; BMI 33.4
--- NOTE | 2025-04-17 09:34 | MHC.OFFWIV ---
Intake Vital Signs 04/17/25 09:34 Height 5 ft 6 in Weight 207 lb BMI 33.4 BP 120/60 Blood Pressure Location Rt brachial Position Sitting Pulse 74 Pulse Source Pulse Oximeter Temp 98.0 F Temp Source Oral Pulse Oximetry (%) 95 Oxygen Delivery Method Room Air Intake Visit Reasons: EP-sore throat, cough, phlegm Intake Note: pt presents with recurrent sore throat and productive cough Patient Tobacco Use Status: Former Tobacco user Allergies dronedarone (From Multaq) Allergy (Mild, Verified 04/17/25 09:35) Rash amoxicillin (From Augmentin) Allergy (Verified 04/17/25 09:35) liver failure clavulanic acid (From Augmentin) Allergy (Verified 04/17/25 09:35) liver failure Penicillins Adverse Reaction (Intermediate, Verified 04/17/25 09:35) Unknown Do you need a note to return to daycare/school/sports/work: No HPI HPI Comments History of Present Illness Details This is a 75-year-old male with a past medical history of seasonal allergies, COPD not currently oxygen dependent, obstructive sleep apnea and atrial fibrillation currently maintained on Eliquis presenting for evaluation of a sore throat, cough and shortness of breath that he has had for the past 1 week. Patient denies having any fevers, chills, otalgia, sore throat, chest pain or hemoptysis. Patient continues to take Razia and Flonase daily for management of his seasonal allergies. [facility] Medical History Bladder cancer Atrial fibrillation SVT (supraventricular tachycardia) LBBB (left bundle branch block) PVC (premature ventricular contraction) Hypercholesterolemia Asthma COPD (chronic obstructive pulmonary disease) Jaundice ANALY on CPAP Personal history of nicotine dependence History of COVID-19 History of small bowel obstruction GERD (gastroesophageal reflux disease) Erectile dysfunction Obesity (BMI 30-39.9) Surgical History History of colonoscopy (~11/26/19) History of foot surgery (~2021) History of laparotomy (~2020) History of arthroplasty of right knee (~2020) History of meniscectomy of right knee (~2011) History of cataract surgery (~2020) History of appendectomy History of arthroplasty of left knee (~2019) History of meniscectomy of left knee (~2018) History of bladder surgery Hx of transurethral destruction of bladder lesion Family History Father Lung cancer Mother History of breast cancer Sister Multiple myeloma Other Cough Social History Household Members: Spouse Housing: House Are you a primary child care supervisor to a significant other at home: No Do you presently have visiting nurse or other home services: No Alcohol intake: former Patient Tobacco Use Status: Former Tobacco user Tobacco use type: Cigarette Years Smoked: (former smoker - onset 14yo, 1ppd x 46yrs, 45pyh, quit 2009) e-Cigarette/Vaping Use: Never Used Second Hand Smoke Exposure: No Advance Directives Date on File: 02/14/21 service: Yes ( [employer] - served in [employer]) Current occupational status: retired Current occupational exposures/hazards: Yes (was exposed to Agent [place] while serving in [employer]) Cognitive needs: No Hearing needs: Yes (hearing aide) Vision needs: No Review of Systems Const All systems reviewed & are unremarkable except as noted in HPI and below Denies body aches, Denies chills, Reports fatigue and Denies fever(s) Eyes Reports no additional complaints and Denies itchy eyes ENT Denies otalgia, Denies sinus pain, Denies sinus pressure and Denies sore throat Card Reports no additional complaints, Denies chest pain and Reports dyspnea Resp Reports cough, Denies hemoptysis, Reports dyspnea and Denies wheezing GI Reports no additional complaints, Denies loose stools, Denies nausea and Denies vomiting Reports no additional complaints Musc Reports no additional complaints Skin/Breast Reports system reviewed and no additional complaints, except as documented Neuro Reports no additional complaints Psych Reports no additional complaints Endo Reports no additional complaints and Reports fatigue Aller/Immun Denies urticaria, Denies itchy eyes and Denies wheezing Physical Exam Vital Signs: Last Vital Signs Temp 98.0 F 04/17/25 09:34 Pulse 74 04/17/25 09:34 BP 120/60 04/17/25 09:34 Pulse Ox 95 04/17/25 09:34 Oxygen Delivery Method Room Air 04/17/25 09:34 BMI result Body Mass Index 33.4 Const General: cooperative, healthy appearing, comfortable, no acute distress, well developed, alert, awake and Physically active; No acute distress, ill appearing or lethargic Nutritional Appearance: overweight Orientation/consciousness: patient oriented x3 and No lethargic Limitations: no limitations HEENT Other: wears hearing aids bilaterally Head: Yes normal to inspection and Yes normocephalic Ears: hearing grossly normal bilaterally (with hearing aids), external ears normal, TM's normal bilaterally and EAC's normal General nose exam: Normal external nose present Face and sinus: Yes normal facial exam, Yes sinuses nontender and Yes face symmetric Mouth: Normal oral and palatal mucosa present, oropharynx normal, moist mucous membranes, no drooling and breath no malodorous Throat: Yes posterior oropharynx normal (There is no edema, erythema or exudates of the posterior oropharynx) and Yes postnasal drainage Eyes General: appearance normal, both eyes and all related structures Neck Lymphatic: no lymphadenopathy noted Resp Effort & Inspection: normal respiratory effort, no audible wheezes, no cough, no nasal flaring and no respiratory distress Auscultation: clear to auscultation bilaterally and lung sounds not diminished Cardio Rate: regular rate Rhythm: regular rhythm Skin General skin exam: no rashes or lesions noted Neuro General: patient oriented x3 Psych Appearance: grossly normal Mental Status: mental status grossly normal Insight: Good insight present (Psych) Judgement: Good judgement present (Psych) Assessment & Plan Assessment & Plan (1) Allergic rhinitis: Comment: Patient takes Razia and Flonase daily for management. Patient denies having any fevers, chills, otalgia or pharyngitis. Patient is not tachypneic and does not exhibit any labored breathing at this time. Code(s): J30.9 - Allergic rhinitis, unspecified Qualifiers: Allergic rhinitis trigger: unspecified Allergic rhinitis seasonality: seasonal Qualified Code(s): J30.2 - Other seasonal allergic rhinitis Plan: Respiratory panel will be obtained and patient will be discharged with a burst of prednisone therapy given his underlying COPD. Orders: Orders Resp Pathogen Panel - [facility] Today J06.9 - Acute upper respiratory infection, unspecified Medications: New prednisone 40 mg (2 x 20 mg) PO DAILY 10 tabs 0RF Coding Level of Care Code Est Pt Level 3 (62812) Diagnoses Seasonal allergic rhinitis, unspecified trigger J30.2 Allergic rhinitis trigger: unspecified Allergic rhinitis seasonality: seasonal Time Spent (min) 20
--- OUTSIDE RECORDS SUMMARY | 2025-04-17 10:10 | XMS_ITS | Patient Health Record ---
Author Organization [facility] Address [address] [place] [address] Care Team Providers Care Gas Operation Manager Name Role Phone yanet ly Primary Care Provider Unavailabl e Allergies Allergen (clinical drug ingredient) Drug/Non Drug Allergy documented on EMR Reaction Allergy Type Onset Date Status dronedarone Multaq rash Drug Allergy Activ e Reason For Referral No Information Medications Medication SIG (Take, Route, Frequency, Duration) Notes Start Date End Date Status Ipratropium Summit 0.03 % 2 sprays in e ach [...] Status Risk Notes Problem Acquired hallux rigidus (8487275) Hallux rigidus of right foot (M20.21) Active confirmed Problem Long-term current use of anticoagulant (896653159) Anticoagulant long-term use (Z79.01) Active confirmed Plan [...] Date Coverage End Date [employer] Medicare [id number] [address] [address] [place] [address] [phone] [id number] Volodymyr Richards Self - patient is the [...]
--- OUTSIDE RECORDS SUMMARY | 2025-04-17 10:11 | XMS_ITS | Patient Health Record ---
Author Organization [facility] Address [address] [place] [address] Care Team Providers Care Sanitarian Name Role Phone Po Any CUI Primary Care Provider Darrian Galvez [phone] Allergies Allergen (clinical drug ingredient) Drug/Non Drug Allergy documented on EMR Reaction Allergy Type Onset Date Status doxycycline Doxycycline jaundice Drug Allergy Act eva amoxicillin Amoxicillin jaundice Drug Allergy Act eva Results Component Value Reference Range Notes Liver Panel Reviewed date:11/29/2024 06:40:17 PM Interpretation: Performing Lab:[facility], [address] [place] [phone] Notes/Report: Bilirubin Total 0.6 0.0-1.0 mg/dL Bilirubin Direct 0.3 0.0-0.5 mg/dL Aspartate Amino Transferase 20 5-37 U/L Alanine Aminotransferase 26 0-40 U/L Total Protein 7.1 6.5-8.0 g/dL Albumin Level 4.0 3.5-5.0 g/dL Alkaline Phosphatase 60 39-117 U/L Liver Fibrosis Pnl Reviewed date:12/12/2024 12:00:36 AM Interpretation: Performing Lab:[address] [address] Notes/Report: Liver Fibrosis Score 0.37 Liver Fibrosis [...] a>0.62 and a<=1.00 : A3 (severe activity) HWA-Zrjpj-0-Macroglobulin 248 106-279 mg/dL FIB-Haptoglobin 149 43-212 mg/dL FIB-Apolipoprotein A1 156 94-176 mg/dL FIB-Total Bilirubin 0.5 0.2-1.2 mg/dL FIB-GGT 17 3-70 U/L FIB-ALT 20 9-46 U/L Reference ID [id number] Footnote SEE NOTE The reliability of results is dependent on compliance with the preanalytical and analytical conditions recommended by [employer]. The tests have to be deferred for: [...] The performance characteristics have been determined by [employer] [facility]. It has not been cleared or approved by the U.S. Food and Drug Administration. Performance characteristics refer to the analytical performance of the test. [employer], the associated logo, [employer] and all associated [employer] howard are the registered trademarks of [employer]. All third democrat howard - (R) and (TM) - are the property of their respective owners. (C) 3336-7957 [employer]. All rights reserved. THIS TEST WAS PERFORMED AT: [facility] [address] [place] [address] JUAN MIGUEL GILMORE MD,PHD,MINNIE Bile Acids Total, Fractionat ed Reviewed date:12/12/2024 07:37:13 AM Interpretation: Performing Lab:[address] [address] Notes/Report: Cholic Acid <0.5 < OR = 1.8 umol/L Deoxycholic Acid <0.5 < OR = 2.4 umol/L Chenodeoxycholic Acid 0.8 < OR = 3.1 umol/L Total Bile Acids <1.5 < OR = 6.8 umol/L This test was developed and its analytical performance characteristics have been determined by [employer]. It has not been cleared or approved by the FDA. This assay has been validated pursuant to the CLIA regulations and is used for clinical purposes. THIS TEST WAS PERFORMED AT: [facility] [address] [place] [address] JUAN MIGUEL GILMORE MD,PHD,MINNIE Pathology (Not yet reviewed by provider) Interpretation: Performing Lab:[address] [address] Notes/Report: Reason For Referral No Information Medications [...] Problem Status W/U Status Risk Notes Problem [id number] Encounter for screening for malignant neoplasm of colon (Z12.11) Active confirmed Problem 615226005 Elevated LFTs (R79.89) Active confirmed Problem 893201130647605 Preprocedural examination (Z01.818) Active confirmed Problem 06578222 Iron excess (E83.19) Active confirmed Problem Jaundice (29417913) Jaundice (R17) Active confi rmed Problem Gastroesophageal reflux disease (971957445) GERD (gastroesophagea l reflux disease) (K21.9) Active confirmed Problem 839648085 Hx of adenomatous colonic polyps (Z86.010) Active confirmed Problem Pruritus (185587533) Pruritus (L29.9) Active confirmed Problem Elevated liver enzymes level (346910274) Elevated liver function tests (R94.5) Active confirmed Vital Signs Blood pressure diastolic 77 mm Hg 11/20/2024 Height 66 in 11/20/2024 Blood pressure systolic 111 mm Hg 11/20/2024 Weight 200 lbs 11/20/2024 BMI 32.28 kg/m2 11/20/2024 Procedures Procedure Date Ordered Date Performed Result Body Sit e COLONOSCOPY 11/20/2024 N/A Encounters Encounter Location Date Provider Diagnosis [facility] Outpatient [address] [place], [place] [id number] 01/26/2025 Darrian Khan [facility] [address] [place] [address] 05/16/2024 Darrian Khan Hx of adenomatous colonic polyps Z86.010 ; Jaundice R17 and Encounter for screening for malignant neoplasm of colon Z12.11 [facility] [address] [place] [address] 11/20/2024 Darrian Khan Hx of adenomatous colonic [...] and all other drugs in that class superintendent marine oil terminal, including Augmentin. I don't think he needs [...] and all other drugs in that class [facility], including Augmentin. I don't think he needs [...] the procedure and we shall advise his soap mixer of that as well. His reflux seems stable on his omeprazole. However, I shall give him a trial of Pepcid 40 mg twice daily to see if that might help with his itching since it does have some antihistamine effect. I did advise him to review this with his medical appliance maker when he sees them in follow-up and [...] the procedure and we shall advise his soap mixer of that as well. His reflux seems stable on his omeprazole. However, I shall give him a trial of Pepcid 40 mg twice daily to see if that might help with his itching since it does have some antihistamine effect. I did advise him to review this with his medical appliance maker when he sees them in follow-up and [...] and all other drugs in that class superintendent marine oil terminal, including Augmentin. I don't think he needs [...] the procedure and we shall advise his soap mixer of that as well. His reflux seems stable on his omeprazole. However, I shall give him a trial of Pepcid 40 mg twice daily to see if that might help with his itching since it does have some antihistamine effect. I did advise him to review this with his medical appliance maker when he sees them in follow-up and [...] the procedure and we shall advise his soap mixer of that as well. His reflux seems stable on his omeprazole. However, I shall give him a trial of Pepcid 40 mg twice daily to see if that might help with his itching since it does have some antihistamine effect. I did advise him to review this with his medical appliance maker when he sees them in follow-up and [...] A,B,C PROFILE 02/19/2024 HEPATITIS A,B,C PROFILE 06/16/2022 [id number] (A1A) 06/16/2022 MITOCHONDRIAL AB 02/19/2024 SMOOTH MUSCLE [...] Insured Coverage Start Date Coverage End Date [facility] [address] [address] [place] [address] [phone] [id number] VOLODYMYR ARNOLD Self - patient is the insured Medical (General) History Medical History History ICD Code Hyperlipidemia Colonoscopy 10-12-2008--1 tub ular adenoma removed; colonoscopy 03/2014 with 2 small tubular adenomas EGD [place] [address] Walter-- negative except for mild reflux-there was no Hough's esophagus nor significant esophagitis Irregular heartbeat--Atrial fibrillation/PVC's--Dr. Shearer. Had an ablation in 04/[address] Brownlee Denies AR,DM,CVA,Lung disease,renal dise ase Bladder cancer 06/2013--has periodic cystoscopies with infusions of chemotherapy with Dr. Alicea HTN Sleep apnea-uses CPAP Negative colonoscopy 11/2019 COPD/Asthma-sees Dr. Christie COVID 01/2022 Negative followup screening colonoscopy in November [...] Date(Month/Year) cardiac ablasion - dr. Brownlee 2022 KXG-[id number]-Sd. Mazzucco 2020 Right big toe Knee replacement-partial--- left 08/2019 Skin cancer removal--basal cell Knee surgery-right Appendectomy Carpal tunnel surgery
== END 2025-04-17 10:08 | disposition home or self-care (01) ==
PROVIDERS: PCP Internal Medicine; Visit Provider Physician Assistant
DX: J30.2 Other seasonal allergic rhinitis (principal)

== ENCOUNTER 2025-04-17 09:28 | Outpatient (REF) | payer MEDICARE, SELFPAY ==
[2025-04-17 17:05] LABS: Chlamydia pneumoniae PCR Not Detected (Not Detect.); Coronavirus 229E PCR Not Detected (Not Detect.); Coronavirus HKU1 PCR Not Detected (Not Detect.); Coronavirus NL63 PCR Not Detected (Not Detect.); Coronavirus OC43 PCR Not Detected (Not Detect.); Influenza A H1 PCR Not Detected (Not Detect.); Influenza A H1-2009 PCR Not Detected (Not Detect.); Influenza A H3 PCR Not Detected (Not Detect.); RSV PCR Not Detected (Not Detect.); Rhino/Enterovirus PCR Not Detected (Not Detect.); SARS-CoV-2 PCR Not Detected (Not Detect.)
== END 2025-04-17 09:29 | disposition home or self-care (01) ==
LOC: HO.LNP 09:28
PROVIDERS: PCP Internal Medicine; Visit Provider Physician Assistant
DX: J06.9 Acute upper respiratory infection, unspecified (principal); J30.2 Other seasonal allergic rhinitis
CPT/HCPCS: 87633; 99212

== ENCOUNTER 2025-04-21 08:27 | Outpatient (REF) | payer OTHER, MEDICARE, SELFPAY | END 2025-04-21 08:28 | disposition home or self-care (01) | LOC: HO.LAB 08:27 | PROVIDERS: PCP Internal Medicine; Visit Provider Urology | DX: C67.9 Malignant neoplasm of bladder, unspecified (principal) | CPT/HCPCS: 52000; 81003; 88121 ==

== ENCOUNTER 2025-04-21 08:27 | Outpatient (AMB) | payer OTHER, MEDICARE, SELFPAY ==
--- OUTSIDE RECORDS SUMMARY | 2025-01-26 08:20 | XMS_ITS ---
Author Organization [facility] Address [address] [place] [address] Care Team Providers Care Rip Saw Operator Name Role Phone Any Jackson MD Primary Care Provider Darrian Galvez [phone] REASON FOR VISIT screening,hx polyps Encounters Encounter Location Date Provider Diagnosis [facility] [place] [address] [place] [phone] 01/26/2025 Darrian Khan Plan Of Treatment No Information Progress Notes * GENEVIEVE ARNOLD JrDOB: (75 yo M)Acc No.[id number]:01/26/2025 COLON WITH MAC Patient: Neyda WHITTAKERGENEVIEVE Jr Provider: Fagn Khan MD :1950 A ge:75 Y S ex:Male Date:01/26/2025 Address:[facility] [address], [facility] [id number] Pcp:Any Jackson MD Subjective: * Chief Complaints: [...] 01/26/2025 Generated for Printi ng/Faxing/eTransmitting on: 1 08:58 AM EDT
--- NOTE | 2025-04-21 08:59 | A.OFFVIS_ITS ---
Intake Visit Reasons: cysto Intake Note: Patient is present for Cystoscopy Urology Medication:NONE Antibiotic Allergy:AMOXICILLIN,PENICILLIN Blood Thinner: APIXABAN Lot:[id number] Exp:12/23/27 Nurse Behavioral Health Care Required: No Accompanied by: Self / Same As Patient Allergies dronedarone (From Multaq) Allergy (Mild, Verified 04/21/25 09:04) Rash amoxicillin (From Augmentin) Allergy (Verified 04/21/25 09:04) liver failure clavulanic acid (From Augmentin) Allergy (Verified 04/21/25 09:04) liver failure Penicillins Adverse Reaction (Intermediate, Verified 04/21/25 09:04) Unknown HPI Comments Details: Volodymyr is a very pleasant male. He is a patient of Dr. Jackson. He is seen for the following urologic conditions - bladder cancer - urinary tract infection Cystoscopy six-month Bladder looked great Continued persistent response to intravesical therapy Check bladder fish today [place] -Dome patch had been fulgurated 06/07 Bladder Cancer low-grade superficial recurrent T1 2019, 07/05 06/06 CIS on biopsy [place] [facility] - Dr Hugo - [facility] Initial diagnosis superficial bladder cancer, recurrent Interventions - TURBT [place] 2019, [place] 06/2021 - 06/06 TURBT CIS with MMC treatment - 03/07 fulguration bladder dome with 3 week MMC Cytarabine - 07/08 biopsy with inflammation - mitomycin-C cytarabine given at time Adjuvant therapy - BCG induction x2, completed induction Aug 2021 - Gemcitabine - 03/07 2 week MMC with Cytarabine boost - 12/06 gemcitabine docetaxel three-week boost Check cystoscopy - 01/03 BCG changes with mucosal erythema patches - 11/04 no evidence of recurrent disease - 04/06 posterior wall patch - TURBT CIS - 10/05 NAD, 01/05 bladder dome mucosal changes, 12/07 NAD Cytology - 11/04 rare atypical, 04/06 suspicious, 10/05 rare atypical, 06/07 atypical, 12/07 rare degenerative cells Risk factors - 40 year pack per day smoking history - Agent [employer] exposure Therapeutic plan - three-month follow-up cysto Urinary tract infection 08/07 E coli ESBL Trouble with recurrent urinary tract infections Culture shows ESBL E coli resistant to most oral antibiotics PFSH Medical History Bladder cancer Atrial fibrillation SVT (supraventricular tachycardia) LBBB (left bundle branch block) PVC (premature ventricular contraction) Hypercholesterolemia Asthma COPD (chronic obstructive pulmonary disease) Jaundice ANALY on CPAP Personal history of nicotine dependence History of COVID-19 History of small bowel obstruction GERD (gastroesophageal reflux disease) Erectile dysfunction Obesity (BMI 30-39.9) Surgical History History of colonoscopy (~11/26/19) History of foot surgery (~2021) History of laparotomy (~2020) History of arthroplasty of right knee (~2020) History of meniscectomy of right knee (~2011) History of cataract surgery (~2020) History of appendectomy History of arthroplasty of left knee (~2019) History of meniscectomy of left knee (~2018) History of bladder surgery Hx of transurethral destruction of bladder lesion Family History Father Lung cancer Mother History of breast cancer Sister Multiple myeloma Other Cough Social History Household Members: Spouse Housing: House Are you a primary daycare manager to a significant other at home: No Do you presently have visiting nurse or other home services: No Alcohol intake: former Patient Tobacco Use Status: Former Tobacco user Tobacco use type: Cigarette Years Smoked: (former smoker - onset 14yo, 1ppd x 46yrs, 45pyh, quit 2009) e-Cigarette/Vaping Use: Never Used Second Hand Smoke Exposure: No Advance Directives Date on File: 02/14/21 service: Yes ([employer] - served in [facility]) Current occupational status: retired Current occupational exposures/hazards: Yes (was exposed to Agent [employer]berg while serving in [employer]) Cognitive needs: No Hearing needs: Yes (hearing aide) Vision needs: No Review of Systems Const Denies chills and Denies fever(s) Card Reports no additional complaints and Denies syncope Resp Denies cough GI Denies abdominal pain and Denies heartburn Reports as per HPI and Denies change in libido Neuro Denies syncope Psych Denies change in libido Endo Denies change in libido Physical Exam Const General: cooperative, healthy appearing, comfortable and no acute distress Orientation/consciousness: patient oriented x3 HEENT Face and sinus: Yes normal facial exam Mouth: moist mucous membranes Neck Neck: Yes normal visual inspection, Yes full ROM and Yes trachea midline Chest Chest palpation & inspection: normal inspection of the chest Resp Effort & Inspection: normal respiratory effort, able to speak in complete sentences and no respiratory distress GI Inspection: Yes normal to inspection Back/Spine/Pelvis Cervical Spine: normal cervical lordosis Thoracic/Lumbar Spine: thoracic and lumbar spine normal to inspection Skin General skin exam: no rashes or lesions noted Neuro General: patient oriented x3, gait normal, tone normal and moves all extremities Extrem General: Yes normal to inspection and Yes capillary refill normal Office Procedures Cystoscopy Consent Discussed risk and benefit or proposed procedure with the patient. Information consent for procedure given to the patient. Discussed technical aspects, risks, benefits and alternatives in full. Addressed all of the patient's questions and concerns regarding the procedure. The patient demonstrated knowledge and understanding. They wish to proceed with this procedure. Preparation The patient was prepped in the usual manner. A silk screen frame assembler was present and in the room. Genitalia was prepped with betadine solution in a sterile manner. Lidocaine Jelly 2% was placed into the urethra and 16Fr flexible Olympus cystoscope was inserted into the meatus after adequate lubrication. Procedure Cystoscopy performed using a disposable Urovue digital 16 Botswanan cystoscope. Meatus circumcised Urethra anterior and posterior urethra normal Prostatic Urethra post TURP Bladder examination with retroflexion of cystoscope Bladder Orifices normal shape and position Bladder Capacity Normal Trabeculations grade 1 Cellule Formation None Diverticulum Formation None Mucosal Erythema minor mucosal changes Bladder Tumor prior scarring dome and sidewall [id number] DISPOSABLE SCOPE URO-G FLEXIBLE SCOPE Procedure code (CPT) selection complete Office Meds lidocaine HCl 2 % mucosal jelly in applicator Performing Provider: Darrin Alicea MD Performing Location: [facility] Administered by: Evan Devine LPN on 04/21/25 09:12 Dose Route Admin Location Dispensed Lot Number Expiration Date [facility] 10 mL intra-urethral 10 mL nitrofurantoin monohydrate/macrocrystals 100 mg capsule Performing Provider: Darrin Alicea MD Performing Location: [facility] [facility] Administered by: Evan Devine LPN on 04/21/25 09:12 Dose Route Admin Location Dispensed Lot Number Expiration Date [facility] Rn Hospice 100 mg PO 1 cap Assessment & Plan Assessment & Plan (1) Bladder cancer: Comment: TURBT 06/28 Jami, 06/29 Dr Mike Farrell, 05/2016 BCG, 06/04 [place] pT1LG, 07/05 [place] pTaLG BCG induction Fulguration and mitomycin-C May 2022 TURBT May 2022 CIS, bladder surgery 07/2023 Code(s): C67.9 - Malignant neoplasm of bladder, unspecified Category: Medical Plan Check cystoscopy May Orders: Orders AMB Cystoscopy Today C67.9 - Malignant neoplasm of bladder, unspecified Patient Instructions: This note is constructed using voice recognition software. While every effort has been made to ensure accuracy rn informatics errors may have been included. Imaging studies, laboratory and physical exam results were discussed and rev iewed in detail. No major barriers to patient understanding were identified. An opportunity to ask questions regarding the treatment plan was provided. All questions were answered. The patient expressed understanding and agreement with the above treatment plan. The patient is aware they should contact our office by phone for worsening of their current condition or the appearance of new urologic symptoms. Compliance is encouraged with any medications and followup testing that is ordered. It is a privilege to participate in the urologic care of your patient. If you have any questions or concerns regarding treatment for the above conditions, or other urologic issues, please do not hesitate to contact me. The office telephone contact is [phone]. Sincerely, Dr Darrin Alicea MD, [facility] - Urology Compassionate Specialist Care for the Genitourinary System Coding Level of Care Code Est Pt Level 3 (10898) Complex EM visit Add On G2211 Diagnoses Bladder cancer C67.9 CPT Codes Cystoscopy - CPT: 14156-Fezubwecmx ([id number])
--- OUTSIDE RECORDS SUMMARY | 2025-04-21 08:59 | XMS_ITS | Patient Health Record ---
Author Organization [facility] Address [address] [place] [address] Care Team Providers Care Hearse Driver Name Role Phone Po Any CUI Primary Care Provider Darrian Galvez [phone] Allergies Allergen (clinical drug ingredient) Drug/Non Drug Allergy documented on EMR Reaction Allergy Type Onset Date Status doxycycline Doxycycline jaundice Drug Allergy Act eva amoxicillin Amoxicillin jaundice Drug Allergy Act eva Results Component Value Reference Range Notes Liver Panel Reviewed date:11/29/2024 06:40:17 PM Interpretation: Performing Lab:[facility], [address] [place] [phone] Notes/Report: Bilirubin Total 0.6 0.0-1.0 mg/dL Bilirubin Direct 0.3 0.0-0.5 mg/dL Aspartate Amino Transferase 20 5-37 U/L Alanine Aminotransferase 26 0-40 U/L Total Protein 7.1 6.5-8.0 g/dL Albumin Level 4.0 3.5-5.0 g/dL Alkaline Phosphatase 60 39-117 U/L Liver Fibrosis Pnl Reviewed date:12/12/2024 12:00:36 AM Interpretation: Performing Lab:[address] [address] Notes/Report: Liver Fibrosis Score 0.37 Liver Fibrosis [...] a>0.62 and a<=1.00 : A3 (severe activity) [id number]-Ibeos-7-Macroglobulin 248 106-279 mg/dL FIB-Haptoglobin 149 43-212 mg/dL FIB-Apolipoprotein A1 156 94-176 mg/dL FIB-Total Bilirubin 0.5 0.2-1.2 mg/dL FIB-GGT 17 3-70 U/L FIB-ALT 20 9-46 U/L Reference ID [id number] Footnote SEE NOTE The reliability of results is dependent on compliance with the preanalytical and analytical conditions recommended by [employer]. The tests have to be deferred for: [...] The performance characteristics have been determined by [facility]. It has not been cleared or approved by the U.S. Food and Drug Administration. Performance characteristics refer to the analytical performance of the test. [employer], the associated logo, [employer] and all associated [employer] howard are the registered trademarks of [employer]. All third republican howard - (R) and (TM) - are the property of their respective owners. (C) 2713-6007 [employer]. All rights reserved. THIS TEST WAS PERFORMED AT: [employer] [address] [place] [address] JUAN MIGUEL GILMORE MD,PHD,MINNIE Bile Acids Total, Fractionat ed Reviewed date:12/12/2024 07:37:13 AM Interpretation: Performing Lab:[address] [address] Notes/Report: Cholic Acid <0.5 < OR = 1.8 umol/L Deoxycholic Acid <0.5 < OR = 2.4 umol/L Chenodeoxycholic Acid 0.8 < OR = 3.1 umol/L Total Bile Acids <1.5 < OR = 6.8 umol/L This test was developed and its analytical performance characteristics have been determined by [facility] [employer]. It has not been cleared or approved by the FDA. This assay has been validated pursuant to the CLIA regulations and is used for clinical purposes. THIS TEST WAS PERFORMED AT: [employer] [facility] [address] [place] [address] JUAN MIGUEL GILMORE MD,PHD,MINNIE Pathology (Not yet reviewed by provider) Interpretation: Performing Lab:[address] [address] Notes/Report: Reason For Referral No Information Medications [...] Problem Status W/U Status Risk Notes Problem [id number] Encounter for screening for malignant neoplasm of colon (Z12.11) Active confirmed Problem 765017676 Elevated LFTs (R79.89) Active confirmed Problem 023890067393942 Preprocedural examination (Z01.818) Active confirmed Problem 45644548 Iron excess (E83.19) Active confirmed Problem Jaundice (81672360) Jaundice (R17) Active confi rmed Problem Gastroesophageal reflux disease (503212686) GERD (gastroesophagea l reflux disease) (K21.9) Active confirmed Problem 091209985 Hx of adenomatous colonic polyps (Z86.010) Active confirmed Problem Pruritus (108106560) Pruritus (L29.9) Active confirmed Problem Elevated liver enzymes level (087399715) Elevated liver function tests (R94.5) Active confirmed Vital Signs Blood pressure diastolic 77 mm Hg 11/20/2024 Height 66 in 11/20/2024 Blood pressure systolic 111 mm Hg 11/20/2024 Weight 200 lbs 11/20/2024 BMI 32.28 kg/m2 11/20/2024 Procedures Procedure Date Ordered Date Performed Result Body Sit e COLONOSCOPY 11/20/2024 N/A Encounters Encounter Location Date Provider Diagnosis [facility] [address] [place], [place] [id number] 01/26/2025 Darrian Khan [facility] [address] [place] [address] 05/16/2024 Darrian Khan Hx of adenomatous colonic polyps Z86.010 ; Jaundice R17 and Encounter for screening for malignant neoplasm of colon Z12.11 [facility] [address] [place] [address] 11/20/2024 Darrian Khan Hx of adenomatous colonic [...] and all other drugs in that class terminologist, including Augmentin. I don't think he needs [...] the procedure and we shall advise his riding double of that as well. His reflux seems stable on his omeprazole. However, I shall give him a trial of Pepcid 40 mg twice daily to see if that might help with his itching since it does have some antihistamine effect. I did advise him to review this with his primary care pediatrician when he sees them in follow-up and [...] the procedure and we shall advise his riding double of that as well. His reflux seems stable on his omeprazole. However, I shall give him a trial of Pepcid 40 mg twice daily to see if that might help with his itching since it does have some antihistamine effect. I did advise him to review this with his primary care pediatrician when he sees them in follow-up and [...] and all other drugs in that class terminologist, including Augmentin. I don't think he needs [...] the procedure and we shall advise his riding double of that as well. His reflux seems stable on his omeprazole. However, I shall give him a trial of Pepcid 40 mg twice daily to see if that might help with his itching since it does have some antihistamine effect. I did advise him to review this with his primary care pediatrician when he sees them in follow-up and [...] the procedure and we shall advise his riding double of that as well. His reflux seems stable on his omeprazole. However, I shall give him a trial of Pepcid 40 mg twice daily to see if that might help with his itching since it does have some antihistamine effect. I did advise him to review this with his primary care pediatrician when he sees them in follow-up and [...] A,B,C PROFILE 02/19/2024 HEPATITIS A,B,C PROFILE 06/16/2022 [id number] (A1A) 06/16/2022 MITOCHONDRIAL AB 02/19/2024 SMOOTH MUSCLE [...] Start Date Coverage End Date [facility] [address] [address] [place] [id number] VOLODYMYR ARNOLD Self - patient is the insured Medical (General) History Medical History History ICD Code Hyperlipidemia Colonoscopy 10-12-2008--1 tub ular adenoma removed; colonoscopy 03/2014 with 2 small tubular adenomas EGD [place] [address] Walter-- negative except for mild reflux-there was no Hough's esophagus nor significant esophagitis Irregular heartbeat--Atrial fibrillation/PVC's--Dr. Shearer. Had an ablation in 04/[address] Brownlee Denies PA,DM,CVA,Lung disease,renal dise ase Bladder cancer 06/2013--has periodic [...] Date(Month/Year) cardiac ablasion - dr. Brownlee 2022 VJC-fsaxoymes-Fy. Mazzucco 2020 Right big toe Knee replacement-partial--- left 08/2019 Skin cancer removal--basal cell Knee surgery-right Appendectomy Carpal tunnel surgery
--- OUTSIDE RECORDS SUMMARY | 2025-04-21 08:59 | XMS_ITS | Patient Health Record ---
Author Organization [facility] Address [address] [place] [address] Care Team Providers Care Manager Electrical Name Role Phone yanet ly Primary Care Provider Unavailabl e Allergies Allergen (clinical drug ingredient) Drug/Non Drug Allergy documented on EMR Reaction Allergy Type Onset Date Status dronedarone Multaq rash Drug Allergy Activ e Reason For Referral No Information Medications Medication SIG (Take, Route, Frequency, Duration) Notes Start Date End Date Status Ipratropium [place] 0.03 % 2 sprays in e ach [...] Status Risk Notes Problem Acquired hallux rigidus (8587424) Hallux rigidus of right foot (M20.21) Active confirmed Problem Long-term current use of anticoagulant (103691956) Anticoagulant long-term use (Z79.01) Active confirmed Plan [...] Date Coverage End Date [employer] Medicare Adv-[id number] [address] [address] [place] [address] [id number] Volodymyr Richards Self - patient is the [...]
== END 2025-04-21 09:46 | disposition home or self-care (01) ==
LOC: HO.HUSH 08:28
PROVIDERS: PCP Internal Medicine; Visit Provider Urology
DX: C67.9 Malignant neoplasm of bladder, unspecified (principal)
CPT/HCPCS: 52000

== ENCOUNTER 2025-04-24 07:56 | Outpatient (REF) | payer OTHER, SELFPAY ==
--- OUTSIDE RECORDS SUMMARY | 2025-01-26 08:20 | XMS_ITS ---
Author Organization [facility] Address [address] [place] [address] Care Team Providers Care Wildlife Veterinarian Name Role Phone Any Jackson MD Primary Care Provider Darrian Galvez [phone] REASON FOR VISIT screening,hx polyps Encounters Encounter Location Date Provider Diagnosis [facility] [place] [address] [place] [phone] 01/26/2025 Darrian Khan Plan Of Treatment No Information Progress Notes * GENEVIEVE ARNOLD JrDOB: (75 yo M)Acc No.[id number]:01/26/2025 COLON WITH MAC Patient: Neyda WHITTAKERGENEVIEVE Jr Provider: Fang Khan MD :1950 A ge:75 Y S ex:Male Date:01/26/2025 Address:[facility] [address], [facility] [place] [place] Pcp:Any Jackson MD Subjective: * Chief Complaints: [...] 01/26/2025 Generated for Printi ng/Faxing/eTransmitting on: 1 07:59 AM EDT
--- OUTSIDE RECORDS SUMMARY | 2025-04-24 07:59 | XMS_ITS | Patient Health Record ---
Author Organization [facility] Address [address] [place] [address] Care Team Providers Care Boots And Shoes Supervisor Name Role Phone Po Any CUI Primary Care Provider Darrian Galvez [phone] Allergies Allergen (clinical drug ingredient) Drug/Non Drug Allergy documented on EMR Reaction Allergy Type Onset Date Status doxycycline Doxycycline jaundice Drug Allergy Act eva amoxicillin Amoxicillin jaundice Drug Allergy Act eva Results Component Value Reference Range Notes Liver Panel Reviewed date:11/29/2024 06:40:17 PM Interpretation: Performing Lab:[facility], [address] [place] [id number] Notes/Report: Bilirubin Total 0.6 0.0-1.0 mg/dL Bilirubin Direct 0.3 0.0-0.5 mg/dL Aspartate Amino Transferase 20 5-37 U/L Alanine Aminotransferase 26 0-40 U/L Total Protein 7.1 6.5-8.0 g/dL Albumin Level 4.0 3.5-5.0 g/dL Alkaline Phosphatase 60 39-117 U/L Liver Fibrosis Pnl Reviewed date:12/12/2024 12:00:36 AM Interpretation: Performing Lab:[address] [address] Notes/Report: Liver Fibrosis Score 0.37 Liver Fibrosis [...] a>0.62 and a<=1.00 : A3 (severe activity) YDL-Ohrjz-5-Macroglobulin 248 106-279 mg/dL FIB-Haptoglobin 149 43-212 mg/dL FIB-Apolipoprotein A1 156 94-176 mg/dL FIB-Total Bilirubin 0.5 0.2-1.2 mg/dL FIB-GGT 17 3-70 U/L FIB-ALT 20 9-46 U/L Reference ID [id number] Footnote SEE NOTE The reliability of results is dependent on compliance with the preanalytical and analytical conditions recommended by iubenda. The tests have to be deferred for: [...] The performance characteristics have been determined by [facility]. It has not been cleared or approved by the U.S. Food and Drug Administration. Performance characteristics refer to the analytical performance of the test. SHAPE, the associated logo, Genasys and all associated [employer] howard are the registered trademarks of [employer]. All third republican howard - (R) and (TM) - are the property of their respective owners. (C) 9080-7082 [employer]. All rights reserved. THIS TEST WAS PERFORMED AT: [facility] [address] [place] [address] JUAN MIGUEL GILMORE MD,PHD,MINNIE Bile Acids Total, Fractionat ed Reviewed date:12/12/2024 07:37:13 AM Interpretation: Performing Lab:[address] [phone] Notes/Report: Cholic Acid <0.5 < OR = 1.8 umol/L Deoxycholic Acid <0.5 < OR = 2.4 umol/L Chenodeoxycholic Acid 0.8 < OR = 3.1 umol/L Total Bile Acids <1.5 < OR = 6.8 umol/L This test was developed and its analytical performance characteristics have been determined by [facility]. It has not been cleared or approved by the FDA. This assay has been validated pursuant to the CLIA regulations and is used for clinical purposes. THIS TEST WAS PERFORMED AT: [facility] [address] [place] [address] JUAN MIGUEL GILMORE MD,PHD,MINNIE Pathology (Not yet reviewed by provider) Interpretation: Performing Lab:[address] [address] Notes/Report: Reason For Referral No Information Medications Medication SIG (Take, Route, Frequency, Duration) Notes Start Date End Date Status Wixela Inhub 250-50 MCG/ACT Inhalation; Duration: 30 Days Active Dupixent 300 MG/2ML Subcutaneous; Duration: 28 Active Simvastatin 40 MG Oral; Duration: 90 Active Metoprolol Tartrate 50 MG Oral; Duration: 45 Active Eliquis 5 MG TAKE 1 TABLET BY MOUTH TWICE A DAY Oral; Duration: 90 Active Advair HFA 230-21 MCG/ACT Inhalation; Duration: 30 Active Advair Diskus 100-50 MCG/DOSE as directed Inhalation Active Omeprazole 20 MG 1 capsule 30 minutes before morning meal Orally Once a day; Duration: 30 day(s) Active Famotidine 40 MG 1 tablet Orally Twice a day for itching; Duration: 30 days I want him to continue his omeprazole as well. I am prescribing the H-2 willian to try to help his pruritus. Thanks 11/20/2024 Active Immunizations Vaccine Route Administration Date Status Comme nts Influenza Unknown 03/16/2019 Administered Influenza Unknown 03/16/2022 Administered Influenza Unknown 05/03/2022 Administered Problems Problem Type SNOMED Code ICD Code Onset Dates Problem Status W/U Status Risk Notes Problem Screening for malignant neoplasm of colon (888405200) Encounter for screening for malignant neoplasm of colon (Z12.11) Active confirmed Problem Elevated liver enzymes level (918500190) Elevated LFTs (R79.89) Active confirmed Problem Preprocedural examination (914999588296880) Preprocedural examination (Z01.818) Active confirmed Problem Iron excess (07701447) Iron excess (E83.19) Active confirmed Problem Jaundice (36429949) Jaundice (R17) Active confi rmed Problem Gastroesophageal reflux disease (601799470) GERD (gastroesophagea l reflux disease) (K21.9) Active confirmed Problem History of adenomatous polyp of colon (223990318) Hx of adenomatous colonic polyps (Z86.010) Active confirmed Problem Pruritus (682964592) Pruritus (L29.9) Active confirmed Problem Elevated liver enzymes level (724371526) Elevated liver function tests (R94.5) Active confirmed Vital Signs Blood pressure diastolic 77 mm Hg 11/20/2024 Height 66 in 11/20/2024 Blood pressure systolic 111 mm Hg 11/20/2024 Weight 200 lbs 11/20/2024 BMI 32.28 kg/m2 11/20/2024 Procedures Procedure Date Ordered Date Performed Result Body Sit e COLONOSCOPY 11/20/2024 N/A Encounters Encounter Location Date Provider Diagnosis [facility] Outpatient [address] [place], [place] [id number] 01/26/2025 Darrian Khan [facility] [address] [facility] [address] [place] [address] 05/16/2024 Darrian Khan Hx of adenomatous colonic polyps Z86.010 ; Jaundice R17 and Encounter for screening for malignant neoplasm of colon Z12.11 [facility] [address] [address] 11/20/2024 Darrian Khan Hx of adenomatous colonic [...] and all other drugs in that class longterm, including Augmentin. I don't think he needs [...] and all other drugs in that class intermediate manager, including Augmentin. I don't think he needs [...] the procedure and we shall advise his rn coronary care unit of that as well. His reflux seems stable on his omeprazole. However, I shall give him a trial of Pepcid 40 mg twice daily to see if that might help with his itching since it does have some antihistamine effect. I did advise him to review this with his sugar refiner when he sees them in follow-up and [...] the procedure and we shall advise his rn coronary care unit of that as well. His reflux seems stable on his omeprazole. However, I shall give him a trial of Pepcid 40 mg twice daily to see if that might help with his itching since it does have some antihistamine effect. I did advise him to review this with his sugar refiner when he sees them in follow-up and [...] and all other drugs in that class intermediate manager, including Augmentin. I don't think he needs [...] the procedure and we shall advise his rn coronary care unit of that as well. His reflux seems stable on his omeprazole. However, I shall give him a trial of Pepcid 40 mg twice daily to see if that might help with his itching since it does have some antihistamine effect. I did advise him to review this with his sugar refiner when he sees them in follow-up and [...] the procedure and we shall advise his rn coronary care unit of that as well. His reflux seems stable on his omeprazole. However, I shall give him a trial of Pepcid 40 mg twice daily to see if that might help with his itching since it does have some antihistamine effect. I did advise him to review this with his sugar refiner when he sees them in follow-up and [...] A,B,C PROFILE 02/19/2024 HEPATITIS A,B,C PROFILE 06/16/2022 [id number] (A1A) 06/16/2022 MITOCHONDRIAL AB 02/19/2024 SMOOTH MUSCLE [...] End Date [facility] [address] [address] [place] [id number] VOLODYMYR ARNOLD Self - patient is the insured Medical (General) History Medical History History ICD Code Hyperlipidemia Colonoscopy 10-12-2008--1 tub ular adenoma removed; colonoscopy 03/2014 with 2 small tubular adenomas EGD [place] [address] Walter-- negative except for mild reflux-there was no Hough's esophagus nor significant esophagitis Irregular heartbeat--Atrial fibrillation/PVC's--Dr. Shearer. Had an ablation in 04/[address] Kem Lindsay [place],DM,CVA,Lung disease,renal dise ase Bladder cancer 06/2013--has periodic [...] Date(Month/Year) cardiac ablasion - dr. Brownlee 2022 VXL-qdqstobkk-Su. Mazzucco 2021 Right big toe Knee replacement-partial--- left 08/2019 Skin cancer removal--basal cell Knee surgery-right Appendectomy Carpal tunnel surgery
--- OUTSIDE RECORDS SUMMARY | 2025-04-24 07:59 | XMS_ITS | Patient Health Record ---
Author Organization [facility] Address [address] [place] [address] Care Team Providers Care Carding Utility Tender Name Role Phone yanet ly Primary Care Provider Unavailabl e Allergies Allergen (clinical drug ingredient) Drug/Non Drug Allergy documented on EMR Reaction Allergy Type Onset Date Status dronedarone Multaq rash Drug Allergy Activ e Reason For Referral No Information Medications Medication SIG (Take, Route, Frequency, Duration) Notes Start Date End Date Status Ipratropium [place] 0.03 % 2 sprays in e ach [...] Status Risk Notes Problem Acquired hallux rigidus (2816157) Hallux rigidus of right foot (M20.21) Active confirmed Problem Long-term current use of anticoagulant (695327374) Anticoagulant long-term use (Z79.01) Active confirmed Plan [...] Date Coverage End Date [employer] Medicare Adv-[id number] [address] [address] [place] [address] [phone] [id number] Volodymyr Richards Self - patient is the [...]
[2025-04-24 08:35] LABS: Appearance Urine Cloudy; Glucose Urine UA Negative (Negative); PH 7.0 (5.0-9.0); Specific Gravity - Urine 1.015 (1.005-1.025); UMIC TRIGGER UA YES
== END 2025-04-24 07:57 | disposition home or self-care (01) ==
LOC: HO.LAB 07:56
PROVIDERS: Absent Provider Nurse Practitioner Family; PCP Internal Medicine; Visit Provider Urology
DX: N39.0 Urinary tract infection, site not specified (principal)
CPT/HCPCS: 81001; 87086; 87088; 87186

== ENCOUNTER 2025-05-15 11:04 | Outpatient (REF) | payer OTHER, SELFPAY ==
--- OUTSIDE RECORDS SUMMARY | 2025-01-26 08:20 | XMS_ITS ---
Author Organization [facility] Address [address] [place] [address] Care Team Providers Care Underwriting Manager Name Role Phone Any Jackson MD Primary Care Provider Darrian Galvez [phone] REASON FOR VISIT screening,hx polyps Encounters Encounter Location Date Provider Diagnosis [facility] Out[facility] [address] [place] [phone] 01/26/2025 Darrian Khan Plan Of Treatment No Information Progress Notes * GENEVIEVE ARNOLD JrDOB: (75 yo M)Acc No.[id number]:01/26/2025 COLON WITH MAC Patient: Neyda WHITTAKERGENEVIEVE Jr Provider: Fang Khan MD :1950 A ge:75 Y S ex:Male Date:01/26/2025 Address:[facility] [address], [facility] [place] [place] Pcp:Any Jackson MD Subjective: * Chief Complaints: * 1 . Screening,hx polyps. * Medical History: Objective: * Vitals: Assessment: Plan: * Treatment: * * The named appointment provid er may or may not be the originator of this progress note, and it is not deemed complete until electronically signed by the appointment provider. Sign off status: Pending * Provider: Fang hKan MD Date: 0 01/26/2025 Generated for Printi ng/Faxing/eTransmitting on: 1 12:45 PM EDT
[2025-05-15 11:57] LABS: Appearance Urine Cloudy; Glucose Urine UA Negative (Negative); PH 6.0 (5.0-9.0); Specific Gravity - Urine 1.015 (1.005-1.025); UMIC TRIGGER UA YES
--- OUTSIDE RECORDS SUMMARY | 2025-05-15 12:46 | XMS_ITS | Patient Health Record ---
Author Organization [facility] Address [address] [place] [address] Care Team Providers Care Testing Specialist Name Role Phone Po Any CUI Primary Care Provider Darrian Galvez [phone] Allergies Allergen (clinical drug ingredient) Drug/Non Drug Allergy documented on EMR Reaction Allergy Type Onset Date Status doxycycline Doxycycline jaundice Drug Allergy Act eva amoxicillin Amoxicillin jaundice Drug Allergy Act eva Results Component Value Reference Range Notes Liver Panel Reviewed date:11/29/2024 06:40:17 PM Interpretation: Performing Lab:[facility], [address] [place] [id number] Notes/Report: Bilirubin Total 0.6 0.0-1.0 mg/dL Bilirubin Direct 0.3 0.0-0.5 mg/dL Aspartate Amino Transferase 20 5-37 U/L Alanine Aminotransferase 26 0-40 U/L Total Protein 7.1 6.5-8.0 g/dL Albumin Level 4.0 3.5-5.0 g/dL Alkaline Phosphatase 60 39-117 U/L Liver Fibrosis Pnl Reviewed date:12/12/2024 12:00:36 AM Interpretation: Performing Lab:[address] [address] Notes/Report: Liver Fibrosis Score 0.37 Liver Fibrosis [...] a>0.62 and a<=1.00 : A3 (severe activity) [id number]-Gpnac-3-Macroglobulin 248 106-279 mg/dL FIB-Haptoglobin 149 43-212 mg/dL FIB-Apolipoprotein A1 156 94-176 mg/dL FIB-Total Bilirubin 0.5 0.2-1.2 mg/dL FIB-GGT 17 3-70 U/L FIB-ALT 20 9-46 U/L Reference ID [id number] Footnote SEE NOTE The reliability of results is dependent on compliance with the preanalytical and analytical conditions recommended by [employer]. The tests have to be deferred for: [...] The performance characteristics have been determined by [employer]. It has not been cleared or approved by the U.S. Food and Drug Administration. Performance characteristics refer to the analytical performance of the test. [employer], the associated logo, [employer] and all associated [employer] howard are the registered trademarks of [employer]. All third libertarian howard - (R) and (TM) - are the property of their respective owners. (C) 1694-8010 [employer]. All rights reserved. THIS TEST WAS PERFORMED AT: [employer] [facility] [address] [place] [address] JUAN MIGUEL GILMORE MD,PHD,MINNIE Bile Acids Total, Fractionat ed Reviewed date:12/12/2024 07:37:13 AM Interpretation: Performing Lab:[address] [address] Notes/Report: Cholic Acid <0.5 < OR = 1.8 umol/L Deoxycholic Acid <0.5 < OR = 2.4 umol/L Chenodeoxycholic Acid 0.8 < OR = 3.1 umol/L Total Bile Acids <1.5 < OR = 6.8 umol/L This test was developed and its analytical performance characteristics have been determined by [employer]. It has not been cleared or approved by the FDA. This assay has been validated pursuant to the CLIA regulations and is used for clinical purposes. THIS TEST WAS PERFORMED AT: [employer] [facility] [address] [place] [address] JUAN MIGUEL GILMORE MD,PHD,MINNIE Pathology (Not yet reviewed by provider) Interpretation: Performing Lab:[address] [address] Notes/Report: Reason For Referral No Information Medications [...] Problem Screening for malignant neoplasm of colon (046143684) Encounter for screening for malignant neoplasm of colon (Z12.11) Active confirmed Problem Elevated liver enzymes level (267679254) Elevated LFTs (R79.89) Active confirmed Problem Preprocedural examination (497913578136321) Preprocedural examination (Z01.818) Active confirmed Problem Iron excess (52157382) Iron excess (E83.19) Active confirmed Problem Jaundice (58943386) Jaundice (R17) Active confi rmed Problem Gastroesophageal reflux disease (821902366) GERD (gastroesophagea l reflux disease) (K21.9) Active confirmed Problem History of adenomatous polyp of colon (455554509) Hx of adenomatous colonic polyps (Z86.010) Active confirmed Problem Pruritus (853246685) Pruritus (L29.9) Active confirmed Problem Elevated liver enzymes level (104787625) Elevated liver function tests (R94.5) Active confirmed Vital Signs Blood pressure diastolic 77 mm Hg 11/20/2024 Height 66 in 11/20/2024 Blood pressure systolic 111 mm Hg 11/20/2024 Weight 200 lbs 11/20/2024 BMI 32.28 kg/m2 11/20/2024 Procedures Procedure Date Ordered Date Performed Result Body Sit e COLONOSCOPY 11/20/2024 N/A Encounters Encounter Location Date Provider Diagnosis [facility] Outpatient [address] [place], [place] [id number] 01/26/2025 Darrian Khan [facility] [address] [facility] [address] [place] [address] 05/16/2024 Darrian Khan Hx of adenomatous colonic polyps Z86.010 ; Jaundice R17 and Encounter for screening for malignant neoplasm of colon Z12.11 [facility] [address] [address] 11/20/2024 Darrian Khan Hx of adenomatous colonic [...] and all other drugs in that class long-term, including Augmentin. I don't think he needs [...] and all other drugs in that class aircraft powerplant repairer, including Augmentin. I don't think he needs [...] the procedure and we shall advise his television repairman of that as well. His reflux seems stable on his omeprazole. However, I shall give him a trial of Pepcid 40 mg twice daily to see if that might help with his itching since it does have some antihistamine effect. I did advise him to review this with his process safety engineering technologist when he sees them in follow-up and [...] the procedure and we shall advise his television repairman of that as well. His reflux seems stable on his omeprazole. However, I shall give him a trial of Pepcid 40 mg twice daily to see if that might help with his itching since it does have some antihistamine effect. I did advise him to review this with his process safety engineering technologist when he sees them in follow-up and [...] and all other drugs in that class aircraft powerplant repairer, including Augmentin. I don't think he needs [...] the procedure and we shall advise his television repairman of that as well. His reflux seems stable on his omeprazole. However, I shall give him a trial of Pepcid 40 mg twice daily to see if that might help with his itching since it does have some antihistamine effect. I did advise him to review this with his process safety engineering technologist when he sees them in follow-up and [...] the procedure and we shall advise his television repairman of that as well. His reflux seems stable on his omeprazole. However, I shall give him a trial of Pepcid 40 mg twice daily to see if that might help with his itching since it does have some antihistamine effect. I did advise him to review this with his process safety engineering technologist when he sees them in follow-up and [...] 06/16/2022 CHEM 7 PROFILE 06/14/2022 LIVER PROFILE 06/14/2022 LIVER PROFILE 11/20/2024 LIVER PROFILE 03/13/2024 LIVER PROFILE 02/26/2024 LIVER PROFILE 08/11/2022 LIVER PROFILE 08/11/2022 LIVER PROFILE 06/16/2022 LIVER PROFILE 06/21/2022 LIVER PROFILE 06/29/2022 LIVER [...] A,B,C PROFILE 02/19/2024 HEPATITIS A,B,C PROFILE 06/16/2022 [id number] (A1A) 06/16/2022 MITOCHONDRIAL AB 02/19/2024 SMOOTH MUSCLE [...] Insured Coverage Start Date Coverage End Date [facility] [address] [address] [place] [phone] [id number] VOLODYMYR ARNOLD Self - patient is the [...] Date(Month/Year) cardiac ablasion - dr. Brownlee 2022 RAU-zzemkanvk-Uz. Mazzucco 2021 Right big toe Knee replacement-partial--- left 08/2019 Skin cancer removal--basal cell Knee surgery-right Appendectomy Carpal tunnel surgery
--- OUTSIDE RECORDS SUMMARY | 2025-05-15 12:46 | XMS_ITS | Patient Health Record ---
Author Organization [facility] Address [address] [facility] [address] [place] [address] Care Team Providers Care Net Repairer Name Role Phone yanet ly Primary Care Provider Unavailabl e Allergies Allergen (clinical drug ingredient) Drug/Non Drug Allergy documented on EMR Reaction Allergy Type Onset Date Status dronedarone Multaq rash Drug Allergy Activ e Reason For Referral No Information Medications Medication SIG (Take, Route, Frequency, Duration) Notes Start Date End Date Status Ipratropium [employer] 0.03 % 2 sprays in e ach [...] Status Risk Notes Problem Acquired hallux rigidus (4040383) Hallux rigidus of right foot (M20.21) Active confirmed Problem Long-term current use of anticoagulant (114605370) Anticoagulant long-term use (Z79.01) Active confirmed Plan [...] Date Coverage End Date [employer] Medicare Adv-[id number] [address] [address] [place] [address] [id number] Volodymyr Richards Self - patient is the [...]
== END 2025-05-15 11:05 | disposition home or self-care (01) ==
LOC: HO.LAB 11:04
PROVIDERS: PCP Internal Medicine; Visit Provider Urology
DX: N39.0 Urinary tract infection, site not specified (principal); C67.9 Malignant neoplasm of bladder, unspecified
CPT/HCPCS: 81001; 87086; 87088; 87186

== ENCOUNTER 2025-05-28 07:00 | Outpatient (REF) | payer MEDICARE, SELFPAY ==
--- OUTSIDE RECORDS SUMMARY | 2025-01-26 07:20 | XMS_ITS ---
Author Organization [facility] Address [address] [place] [address] Care Team Providers Care Trucking Supervisor Name Role Phone Any Jackson MD Primary Care Provider Darrian Galvez [phone] REASON FOR VISIT screening,hx polyps Encounters Encounter Location Date Provider Diagnosis [place] [address] [place] [phone] 01/26/2025 Darrian Khan Plan Of Treatment No Information Progress Notes * GENEVIEVE ARNOLD JrDOB: (75 yo M)Acc No.[id number]:01/26/2025 COLON WITH MAC Patient: Neyda WHITTAKERGENEVIEVE Jr Provider: Fang Khan MD :1950 A ge:75 Y S ex:Male Date:01/26/2025 Address:[facility] [address], [facility] [id number] Pcp:Any Jackson MD Subjective: * Chief Complaints: * 1 . Screening,hx polyps. * Medical History: Objective: * Vitals: Assessment: Plan: * Treatment: * * The named appointment provid er may or may not be the originator of this progress note, and it is not deemed complete until electronically signed by the appointment provider. Sign off status: Pending * Provider: Fang Khan MD Date: 0 01/26/2025 Generated for Printi ng/Fabenjaming/eTransmitting on: 1 07/28/2024 07:04 AM EST
--- OUTSIDE RECORDS SUMMARY | 2025-05-28 07:04 | XMS_ITS | Patient Health Record ---
Author Organization [facility] Address [address] [facility] [address] [place] [address] Care Team Providers Care Machine Ceramic Coater Name Role Phone yanet ly Primary Care Provider Unavailabl e Allergies Allergen (clinical drug ingredient) Drug/Non Drug Allergy documented on EMR Reaction Allergy Type Onset Date Status dronedarone Multaq rash Drug Allergy Activ e Reason For Referral No Information Medications Medication SIG (Take, Route, Frequency, Duration) Notes Start Date End Date Status Ipratropium [place] 0.03 % 2 sprays in e ach [...] Status Risk Notes Problem Acquired hallux rigidus (0984960) Hallux rigidus of right foot (M20.21) Active confirmed Problem Long-term current use of anticoagulant (858224852) Anticoagulant long-term use (Z79.01) Active confirmed Plan [...] Date Coverage End Date [employer] Medicare Adv-[id number] [address] [address] [place] [phone] [id number] Volodymyr Richards Self - patient is the [...]
--- OUTSIDE RECORDS SUMMARY | 2025-05-28 07:04 | XMS_ITS | Patient Health Record ---
Author Organization [facility] Address [address] [place] [address] Care Team Providers Care [facility] Name Role Phone Po Any CUI Primary Care Provider Darrian Galvez [phone] Allergies Allergen (clinical drug ingredient) Drug/Non Drug Allergy documented on EMR Reaction Allergy Type Onset Date Status doxycycline Doxycycline jaundice Drug Allergy Act eva amoxicillin Amoxicillin jaundice Drug Allergy Act eva Results Component Value Reference Range Notes Liver Panel Reviewed date:11/29/2024 06:40:17 PM Interpretation: Performing Lab:[facility], [address] [place] [address] Notes/Report: Bilirubin Total 0.6 0.0-1.0 mg/dL Bilirubin Direct 0.3 0.0-0.5 mg/dL Aspartate Amino Transferase 20 5-37 U/L Alanine Aminotransferase 26 0-40 U/L Total Protein 7.1 6.5-8.0 g/dL Albumin Level 4.0 3.5-5.0 g/dL Alkaline Phosphatase 60 39-117 U/L Liver Fibrosis Pnl Reviewed date:12/12/2024 12:00:36 AM Interpretation: Performing Lab:[address] [address] Notes/Report: Liver Fibrosis Score 0.37 Liver Fibrosis [...] a>0.62 and a<=1.00 : A3 (severe activity) ZJV-Blqbj-7-Macroglobulin 248 106-279 mg/dL FIB-Haptoglobin 149 43-212 mg/dL FIB-Apolipoprotein A1 156 94-176 mg/dL FIB-Total Bilirubin 0.5 0.2-1.2 mg/dL FIB-GGT 17 3-70 U/L FIB-ALT 20 9-46 U/L Reference ID [id number] Footnote SEE NOTE The reliability of results is dependent on compliance with the preanalytical and analytical conditions recommended by [email or web address]. The tests have to be deferred for: [...] The performance characteristics have been determined by [employer] [facility]. It has not been cleared or approved by the U.S. Food and Drug Administration. Performance characteristics refer to the analytical performance of the test. [employer], the associated logo, [employer] and all associated [employer] howard are the registered trademarks of [employer]. All third alliance party howard - (R) and (TM) - are the property of their respective owners. (C) 4683-7179 [employer]. All rights reserved. THIS TEST WAS PERFORMED AT: [employer] [facility] [address] [place] [address] JUAN MIGUEL GILMORE MD,PHD,MINNIE Bile Acids Total, Fractionat ed Reviewed date:12/12/2024 07:37:13 AM Interpretation: Performing Lab:[address] [address] Notes/Report: Cholic Acid <0.5 < OR = 1.8 umol/L Deoxycholic Acid <0.5 < OR = 2.4 umol/L Chenodeoxycholic Acid 0.8 < OR = 3.1 umol/L Total Bile Acids <1.5 < OR = 6.8 umol/L This test was developed and its analytical performance characteristics have been determined by [employer]. It has not been cleared or approved by the FDA. This assay has been validated pursuant to the CLIA regulations and is used for clinical purposes. THIS TEST WAS PERFORMED AT: [employer] [facility] [address] [place] [address] JUAN MIGUEL GILMORE MD,PHD,MINNIE Pathology (Not yet reviewed by provider) Interpretation: Performing Lab:[address] [address] Notes/Report: Reason For Referral No Information Medications [...] Problem Screening for malignant neoplasm of colon (835151765) Encounter for screening for malignant neoplasm of colon (Z12.11) Active confirmed Problem Elevated liver enzymes level (363322316) Elevated LFTs (R79.89) Active confirmed Problem Preprocedural examination (414509648264823) Preprocedural examination (Z01.818) Active confirmed Problem Iron excess (79596888) Iron excess (E83.19) Active confirmed Problem Jaundice (41065134) Jaundice (R17) Active confi rmed Problem Gastroesophageal reflux disease (969329185) GERD (gastroesophagea l reflux disease) (K21.9) Active confirmed Problem History of adenomatous polyp of colon (161420143) Hx of adenomatous colonic polyps (Z86.010) Active confirmed Problem Pruritus (287577722) Pruritus (L29.9) Active confirmed Problem Elevated liver enzymes level (878873970) Elevated liver function tests (R94.5) Active confirmed Vital Signs Blood pressure diastolic 77 mm Hg 11/20/2024 Height 66 in 11/20/2024 Blood pressure systolic 111 mm Hg 11/20/2024 Weight 200 lbs 11/20/2024 BMI 32.28 kg/m2 11/20/2024 Procedures Procedure Date Ordered Date Performed Result Body Sit e COLONOSCOPY 11/20/2024 N/A Encounters Encounter Location Date Provider Diagnosis [facility] [place] [address] [place], [place] [id number] 01/26/2025 Darrian Khan [facility] [address] [place] [address] 11/20/2024 Darrian Khan Hx of adenomatous colonic polyps Z86.010 ; GERD (gastroesophageal reflux disease) K21.9 ; Encounter for screening for malignant neoplasm of colon Z12.11 and Pruritus L29.9 Assessments Encounter Date Diagnosis (ICD Code) Assessment Notes Treatment Notes Treatment Clinical Notes Section Notes 11/20/2024 GERD (gastroesophage al reflux disease) (ICD-10 [...] the procedure and we shall advise his clock maker of that as well. His reflux seems stable on his omeprazole. However, I shall give him a trial of Pepcid 40 mg twice daily to see if that might help with his itching since it does have some antihistamine effect. I did advise him to review this with his launching pad mechanic when he sees them in follow-up and [...] the procedure and we shall advise his clock maker of that as well. His reflux seems stable on his omeprazole. However, I shall give him a trial of Pepcid 40 mg twice daily to see if that might help with his itching since it does have some antihistamine effect. I did advise him to review this with his launching pad mechanic when he sees them in follow-up and [...] the procedure and we shall advise his clock maker of that as well. His reflux seems stable on his omeprazole. However, I shall give him a trial of Pepcid 40 mg twice daily to see if that might help with his itching since it does have some antihistamine effect. I did advise him to review this with his launching pad mechanic when he sees them in follow-up and [...] the procedure and we shall advise his clock maker of that as well. His reflux seems stable on his omeprazole. However, I shall give him a trial of Pepcid 40 mg twice daily to see if that might help with his itching since it does have some antihistamine effect. I did advise him to review this with his launching pad mechanic when he sees them in follow-up and [...] A,B,C PROFILE 02/19/2024 HEPATITIS A,B,C PROFILE 06/16/2022 [id number] (A1A) 06/16/2022 MITOCHONDRIAL AB 02/19/2024 SMOOTH MUSCLE [...] Insured Coverage Start Date Coverage End Date [facility] [address] [address] [place] [id number] VOLODYMYR ARNOLD Self - patient is the insured Medical (General) History Medical History History ICD Code Hyperlipidemia Colonoscopy 10-12-2008--1 tub ular adenoma removed; colonoscopy 03/2014 with 2 small tubular adenomas EGD [place] [address] Walter-- negative except for mild reflux-there was no Hough's esophagus nor significant esophagitis Irregular heartbeat--Atrial fibrillation/PVC's--Dr. Shearer. Had an ablation in 04/[address] Brownlee Denies GA,DM,CVA,Lung disease,renal dise ase Bladder cancer 06/2013--has periodic [...] Date(Month/Year) cardiac ablasion - dr. Brownlee 2022 QMK-pqzzfajwb-Zk. Mazzucco 2020 Right big toe Knee replacement-partial--- left 08/2019 Skin cancer removal--basal cell Knee surgery-right Appendectomy Carpal tunnel surgery
[2025-05-28 07:17] LABS: MANUAL DIFF FLAG NO
[2025-05-28 07:50] LABS: Hematocrit 46.8 % (42.0-52.0); Hemoglobin 15.7 g/dl (14.0-18.0); Imm Gran Abs Auto 0.03 X10*3/uL (0.00-0.03); Imm Gran Pct Auto 0.4 % (0.0-0.4); Lymphocytes Absolute Auto 2.1 X10*3/uL (1.2-4.9); Mean Corpuscular HGB Conc 33.5 g/dl (31.0-36.0); Mean Corpuscular Hemoglobin 29.8 pg (27.0-33.0); Mean Corpuscular Volume 88.8 fL (80.0-98.0); NRBC Abs Auto 0.000 X10*3/uL (0.0-0.012); NRBC Pct Auto 0.0 /100WBC (0.0-0.2); Platelet Count 163 X10*3/uL (160-400); Red Blood Count 5.27 X10*6/uL (4.60-5.80); White Blood Count 7.5 X10*3/uL (4.8-10.8)
[2025-05-28 07:52] LABS: Appearance Urine Clear; Glucose Urine UA Negative (Negative); PH 7.0 (5.0-9.0); Specific Gravity - Urine 1.010 (1.005-1.025)
[2025-05-28 08:02] LABS: Alanine Aminotransferase 30 U/L (0-40); Albumin Level 4.1 g/dL (3.5-5.0); Alkaline Phosphatase 64 U/L (39-117); Anion Gap 10 (12-20); Aspartate Amino Transferase 25 U/L (5-37); Blood Urea Nitrogen 12 mg/dL (9-16); Calcium 9.2 mg/dL (8.4-10.2); Carbon Dioxide 30 mmol/L (22-29); Chloride 105 mmol/L (96-108); Estimated Glomerular Filt Rate > 60; Potassium 3.8 mmol/L (3.3-5.1); Sodium 141 mmol/L (135-145); Total Protein 7.3 g/dL (6.5-8.0)
== END 2025-05-28 07:01 | disposition home or self-care (01) ==
LOC: HO.LAB 07:00
PROVIDERS: PCP Internal Medicine; Visit Provider Internal Medicine
DX: I48.91 Unspecified atrial fibrillation (principal); R30.0 Dysuria
CPT/HCPCS: 36415; 80053; 81003; 85025

== ENCOUNTER 2025-06-01 15:31 | Outpatient (REF) | payer MEDICARE, SELFPAY ==
[2025-06-01 18:14] LABS: Appearance Urine Clear; Glucose Urine UA Negative (Negative); PH 5.5 (5.0-9.0); Specific Gravity - Urine 1.020 (1.005-1.025); UMIC TRIGGER UA YES
== END 2025-06-01 15:32 | disposition home or self-care (01) ==
LOC: HO.WFDLDS 15:31
PROVIDERS: Visit Provider Urology
DX: C67.9 Malignant neoplasm of bladder, unspecified (principal); N39.0 Urinary tract infection, site not specified
CPT/HCPCS: 81001; 87086

== ENCOUNTER 2025-06-08 09:30 | Outpatient (AMB) | payer MEDICARE, SELFPAY ==
--- OUTSIDE RECORDS SUMMARY | 2025-01-26 07:20 | XMS_ITS ---
Author Organization [facility] Address [address] [place] [address] Care Team Providers Care Monkey Keeper Name Role Phone Any Jackson MD Primary Care Provider Darrian Galvez [phone] REASON FOR VISIT screening,hx polyps Encounters Encounter Location Date Provider [place] [facility] [place] [address] [place] [phone] 01/26/2025 Darrian Khan Plan Of Treatment No Information Progress Notes * GENEVIEVE ARNOLD JrDOB: (75 yo M)Acc No.[id number]:01/26/2025 COLON WITH MAC Patient: Neyda WHITTAKERGENEVIEVE Jr Provider: Fang Khan MD :1950 A ge:75 Y S ex:Male Date:01/26/2025 Address:[facility] [address], [place] Pcp:Any Jackson MD Subjective: * Chief Complaints: * S creening,hx polyps Billing Information: * Procedure Codes: * The named appointment provid er may or may not be the originator of this progress note, and it is not deemed complete until electronically signed by the appointment provider. Sign off status: Pending * Provider: Fang Khan MD Date: 0 01/26/2025 Generated for Enrique bullock/Fabenjaming/eTransmitting on: 1 08/08/2024 10:55 AM EST
[2025-06-08 10:25] VITALS: BP 118/70; PULSE 70; TEMP 36.7; O2SAT 95; BMI 33.3
--- NOTE | 2025-06-08 10:25 | A.OFFPC_ITS ---
Vital Signs 06/08/25 10:25 Height 5 ft 6 in Weight 206 lb 6 oz BMI 33.3 BP 118/70 Blood Pressure Location Lt brachial Position Sitting Pulse 70 Pulse Source Pulse Oximeter Temp 98.1 F Temp Source Temporal Artery Scan Pulse Oximetry (%) 95 Oxygen Delivery Method Room Air Intake Visit Reasons: bladder cancer Allergies dronedarone (From Multaq) Allergy (Mild, Verified 06/08/25 10:32) Rash amoxicillin (From Augmentin) Allergy (Verified 06/08/25 10:32) liver failure clavulanic acid (From Augmentin) Allergy (Verified 06/08/25 10:32) liver failure Penicillins Adverse Reaction (Intermediate, Verified 06/08/25 10:32) Unknown Tobacco use date assessed: 12/09/24 Fall risk assessment: No Falls in past year Last assessed Fall Risk: 06/08/25 Dental Screening Dental Screen Date: 12/09/24 Did you have a dental visit in the last 12 months?: Yes Did you have a dental problem in the last 6 months where you did not have access to dental care?: No Was dental information given to patient?: Patient has dentist HPI bladder cancer HPI Details states night sweats, recurrent cough HPI Comments History of Present Illness Details History of Present Illness The patient is a 75-year-old individual presenting for a follow-up visit, last seen in November for a physical exam. The patient has a history of smoking, chronic obstructive pulmonary disease (COPD), obstructive sleep apnea, hypercholesterolemia, atrial fibrillation, and bladder cancer diagnosed in 2013. The primary concern is recurrent upper respiratory infections, with frequent visits to urgent care centers, including on April 17 for a sore throat and cough and March 17 for a cough. The patient has also experienced recurrent urinary tract infections, with three episodes in the last 2-3 months. For a COPD exacerbation on January 29, the patient was treated with prednisone and cefdinir, and was prescribed Zithromax in March. For management of allergies and respiratory symptoms, the patient takes Razia, Dupixent, Wixela once in the morning and once at night, and uses an Airsupra inhaler as a rescue inhaler. The patient has an albuterol inhaler (Airsupra), Wixela, and a nebulizer for use as needed. A CAT scan of the lungs in December 2024 showed no significant issues, and a lung function test in 2022 was normal. 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 Regarding cardiovascular history, the patient underwent an ablation for atrial fibrillation in 2021 and has had no further AFib episodes. The patient is currently prescribed beta-blockers (metoprolol) and Eliquis for anticoagulation, and is no longer on amiodarone. The patient developed a rash from Multaq previously. The patient stopped taking simvastatin a few months ago. The patient has a history of bladder cancer from 2013 and undergoes surveillance cystoscopy with urology, with the last visit on April 21. A colonoscopy on January 26 revealed multiple colon polyps, identified as tubular adenoma, but the patient does not require further colon tests at this time. Additional history includes degenerative changes of the right shoulder found on an X-ray in January. The patient reports a history of night sweats, which are now resolved. The patient uses a CPAP machine regularly every night for obstructive sleep apnea. Recent blood work from May 28 showed a normal blood count with no anemia, normal electrolytes, and normal renal and liver function. The last cholesterol test was in November 2024 with an LDL of 86, and a thyroid test in November 2024 showed a level of 0.99. Health Maintenance The patient is up-to-date on all recommended vaccinations. Follow-up was established for next year, likely after November, following the patient's return from [place]. A lab order for a thyroid panel will be placed for six months from now to investigate the prior history of night sweats. The patient was encouraged to continue a healthy lifestyle, including daily walks, adequate hydration, and a healthy diet. Social History - The patient denies a history of smokin g. - The patient lives in an [place] [facility]. - The patient walks almost every day and is still able to ride a motorcycle. - The patient will be traveling to [facility] and will return in November. - The patient does not currently have pe ts. Results - Labs (May 28): Blood work showed a normal blood count with no anemia, normal electrolytes, and normal renal and liver function. - Labs (November 2024): LDL was 86; Thyroid w as 0.99. - Imaging (January): X-ray of the right beth ulder showed degenerative changes. - Imaging (December 2024): CT scan of the [place] ng as part of the lung cancer screening program was noted, with no acute findings discussed. - Procedures (January 26): Colonoscopy show ed multiple colon polyps, which were tubular adenomas. - Procedures (2022): Lung function test was normal. [facility] Medical History Bladder cancer Atrial fibrillation SVT (supraventricular tachycardia) LBBB (left bundle branch block) PVC (premature ventricular contraction) Hypercholesterolemia Asthma COPD (chronic obstructive pulmonary disease) Jaundice ANALY on CPAP Personal history of nicotine dependence History of COVID-19 History of small bowel obstruction GERD (gastroesophageal reflux disease) Erectile dysfunction Obesity (BMI 30-39.9) Surgical History History of colonoscopy (~11/26/19) History of foot surgery (~2021) History of laparotomy (~2020) History of arthroplasty of right knee (~2020) History of meniscectomy of right knee (~2011) History of cataract surgery (~2020) History of appendectomy History of arthroplasty of left knee (~2019) History of meniscectomy of left knee (~2018) History of bladder surgery Hx of transurethral destruction of bladder lesion Family History Father Lung cancer Mother History of breast cancer Sister Multiple myeloma Other Cough Social History Household Members: Spouse Housing: House Are you a primary personal care worker to a significant other at home: No Do you presently have visiting nurse or other home services: No Alcohol intake: former Patient Tobacco Use Status: Former Tobacco user Tobacco use type: Cigarette Years Smoked: (former smoker - onset 14yo, 1ppd x 46yrs, 45pyh, quit 2009) e-Cigarette/Vaping Use: Never Used Second Hand Smoke Exposure: No Advance Directives Date on File: 02/14/21 service: Yes ( [employer] - served in [employer]) Current occupational status: retired Current occupational exposures/hazards: Yes (was exposed to [employer] [place] while serving in [employer]) Cognitive needs: No Hearing needs: Yes (hearing aide) Vision needs: No Questionnaire PHQ-9 Over the last 2 weeks, how often have you been bothered by any of the following problems? 1. Little interest or pleasure in doing things: not at all 2. Feeling down, depressed, or hopeless: not at all 3. Trouble falling or staying asleep, or sleeping too much: not at all 4. Feeling tired or having little energy: not at all 5. Poor appetite or overeating: not at all 6. Feeling bad about yourself - or that you are a failure or have let yourself or your family down: not at all 7. Trouble concentrating on things, such as reading the newspaper or watching television: not at all 8. Moving or speaking so slowly that other people could have noticed. Or the opposite - being so fidgety or restless that you have been moving around a lot more than usual: not at all 9. Thoughts that you would be better off or of hurting yourself in some way: not at all Total score: 0 Depression Screening Interpretation: Negative Depression Screening Done: Yes 07657 - PHQ-9 Billing: Yes Source: Developed by Drs. Darrian Watson, Megan Richardson, Alexandru Griffiths and colleagues, with an educational aydin from [employer]. Thrive Questionnaire Date Thrive assessed: 12/02/24 I am a: Patient What is your living situation today?: I have a steady place to live Within the past 12 months, did the food you bought not last and you didn't have the money to get more?: Never true Within the past 12 months, did you worry whether your food would run out before you got money to buy more?: Never true Do you have trouble paying for medicines?: No Do you have trouble getting transportation to medical appointments?: No Do you have trouble paying your heating and electricity bill?: No Do you have trouble taking care of your child, family member or friend?: No Do you have trouble with day-to-day activities such as bathing, preparing meals, shopping, managing finances, etc.?: No Are you currently unemployed and looking for a job?: No Are you interested in more education?: No Please select the resources that you would like help with: None Currently or been in a relationship where the following occur: No concerns reported THRIVE Score: 0 AUDIT C Alcohol Use Questionnaire (AUDIT-C) 1. How often do you have a drink containing alcohol?: Never 3. How often do you have six or more drinks on one occasion?: Never Total Score: 0 PARIS-7 AMB Questionnaire PARIS-7 Date PARIS - 7 assessed: 12/09/24 Feeling nervous, anxious, or on edge: 0 = Not at all Not being able to stop or control worryin = Not at all Worrying too much about different things: 0 = Not at all Trouble relaxin = Not at all Being so restless that it is hard to sit still: 0 = Not at all Becoming easily annoyed or irritable: 0 = Not at all Feeling afraid as if something awful might happen: 0 = Not at all Total PARIS-7 score (0-4 normal; 5-9 mild; 10-14 moderate; 15-21 severe): 0 Source: Developed by Drs. Darrian Watson, Megan Richardson, Alexandru Griffiths and colleagues, with an educational aydin from [employer]. PARIS-7 Assessment Billing PARIS-7 Assessment Tool: PARIS-7 Assessment 83422 Review of Systems Narrative Review of Systems - General/Constitutional: Reports history of drenching night sweats but is not experiencing them currently. - Respiratory: Reports a chronic cough, sometimes productive of green sputum, postnasal drip, and wheezing. Denies needing to use a rescue inhaler frequently. - Cardiovascular: Denies symptoms of atrial fibrillation since the ablation. - Genitourinary: Reports having approximately three urinary tract infections in the last two to three months. - Allergic: Reports known allergies to cows, mice, and cockroaches. Physical exam (Primary Care) Vital Signs: Last Vital Signs Temp 98.1 F 06/08/25 10:25 Pulse 70 06/08/25 10:25 BP 118/70 06/08/25 10:25 Pulse Ox 95 06/08/25 10:25 Oxygen Delivery Method Room Air 06/08/25 10:25 BMI result Body Mass Index 33.3 Tobacco/Smoking Status: Tobacco use Status Tobacco use date assessed 12/09/24 06/08/25 10:26 Patient Tobacco Use Status Former Tobacco user 06/08/25 10:26 Tobacco use type Cigarette 06/08/25 10:26 e-Cigarette/Vaping Use Never Used 06/08/25 10:26 PHQ-9: PHQ-9 Score PHQ-9: Total score 0 06/08/25 10:32 Depression Screening Interpretation: Negative Thrive Assessment: Date of Thrive Assessment Date Thrive assessed 12/02/24 06/08/25 10:26 Currently or been in a relationship where the following occur: No concerns reported Narrative Physical Exam - Cardiovascular: Heart rhythm is regular. - Respiratory: Lungs are clear to auscultation bilaterally. - Vitals: Oxygen saturation is good. Const General: alert; No acute distress Eyes Conjunctivae: conjunctivae normal Resp Auscultation: clear to auscultation bilaterally Cardio Rate: regular rate Rhythm: regular rhythm GI Inspection: Yes normal to inspection Extrem General: Yes normal to inspection and No edema Coding Level of Care Code Complex visit Add On G2211 Diagnoses Atrial fibrillation I48.91 Hypercholesterolemia E78.00 Bladder cancer C67.9 Chronic obstructive pulmonary disease with acute exacerbation J44.1 COPD type: COPD with acute exacerbation ANALY on CPAP G47.33; Z99.89 Personal history of nicotine dependence Z87.891 Additional Codes PARIS-7 Assessment Billing - PARIS-7 Assessment Tool: PARIS-7 Assessment 17075 ([id number]) PHQ-9 - 15826 - PHQ-9 Billing: Yes ([id number]) Assessment & Plan Assessment & Plan (1) Atrial fibrillation: Comment: Ablation done 2021 with pulmonary vein isolation Code(s): I48.91 - Unspecified atrial fibrillation Category: Medical Plan: Patient follows up with Cardiology on anticoagulation and metoprolol May 2025 last renal function (2) Hypercholesterolemia: Code(s): E78.00 - Pure hypercholesterolemia, unspecified Category: Medical Plan: Avoid fried foods, chicken skin, eggs, butter margarine, pastries and meat. Be it pork or beef they have a lot of cholesterol LDL goal of less than 130 and triglyceride of less than 150 November 2024 last blood work (3) Bladder cancer: Comment: TURBT 06/28 pTaLG, 06/29 Dr Mckeon pTaLG, 05/2016 BCG, 06/04 [place] pT1LG, 07/05 [place] pTaLG BCG induction Fulguration and mitomycin-C May 2022 TURBT May 2022 CIS, bladder surgery 07/2023 Code(s): C67.9 - Malignant neoplasm of bladder, unspecified Category: Medical Plan: Continue to follow-up with urology (4) COPD (chronic obstructive pulmonary disease): Code(s): J44.9 - Chronic obstructive pulmonary disease, unspecified Category: Medical Qualifiers: COPD type: COPD with acute exacerbation Qualified Code(s): J44.1 - Chronic obstructive pulmonary disease with (acute) exacerbation Plan: Patient on albuterol inhaler ear supra and Wixela (5) ANALY on CPAP: Comment: Known to have obstructive sleep apnea since 2016. He uses CPAP regularly every night - and sleeps better. Code(s): G47.33 - Obstructive sleep apnea (adult) (pediatric); Z99.89 - Dependence on other enabling machines and devices Category: Medical Plan: Continue to use the CPAP more than 4 hours a night and benefits from this. (6) Personal history of nicotine dependence: Comment: (former smoker - onset 14yo, 1ppd x 46yrs, 45pyh, quit 2009, +fam hx lung ca) March 2022, January Code(s): Z87.891 - Personal history of nicotine dependence Category: Medical Plan: Patient in the lung cancer screening program December [address] scan Plan Plan Patient was informed and verbally consented to the use of an ambient scribe for clinic note documentation during this visit. 1. Recurrent Upper Respiratory Infections / Chronic Obstructive Pulmonary Diseas e The patient experiences recurrent monthly upper respiratory infections and COPD exacerbations despite being on multiple controller medications, including Wixela, Airsupra, Dupixent, and Razia. The use of two steroid inhalers (Wixela and Airsupra) was noted. The potential medication interaction where metoprolol can be 'against the lung' while lung medications can 'make the heart race' was discussed. The patient will continue the current medication regimen, including rinsing the mouth after using Wixela. A discussion was held regarding the difficulty of managing the condition, a recommendation to wear a mask was made, and the option of allergy shots was mentioned but deemed difficult due to the commitment. 2. Hypercholesterolemia The patient stopped taking simvastatin on their own a few months ago. To assess cholesterol levels off medication, a fasting lab order for a lipid panel will be placed. The distinction between blood thinners (preventing clots) and cholesterol medication (preventing plaque buildup) was explained. 3. Atrial Fibrillation The patient is stable with no recurrence of atrial fibrillation since an ablation in 2021. The patient questioned the ongoing need for a blood thinner (Eliquis), and the engineer process's rationale to prevent blood clots versus accepting bruising was reiterated. The patient will continue the current regimen of metoprolol and Eliquis as prescribed by cardiology. Discussion Notes I reviewed the patient's extensive history, with a focus on the recurrent monthly upper respiratory infections. We discussed that despite being on multiple medications for allergies and COPD, including Dupixent, Razia, Wixela and Airsupra, the infections persist. I noted the patient is on a double steroid inhaler regimen and explained the delicate balance of medications for the heart and lungs, noting how metoprolol can affect breathing and albuterol can affect heart rate. We discussed the patient's self-discontinuation of simvastatin. I explained the importance of checking a cholesterol level to determine if the medication is still necessary and informed the patient that a fasting blood test would be ordered. I also clarified that blood thinners and cholesterol medications have different mechanisms of action. We reviewed the stable status of the patient's atrial fibrillation post-ablation and the engineer process's recommendation to continue anticoagulation. Regarding the history of night sweats, I recommended a future thyroid check. I advised a follow-up visit next year after the patient returns from [place] in November and encouraged continued healthy lifestyle habits. Patient Instructions - Please go to the lab for a fasting blood test to check your cholesterol levels. - A lab order will also be placed for a thyroid check in about six months. - Continue taking your current medications as prescribed, including metoprolol, Eliquis, Wixela, Airsupra, and Razia. - Remember to rinse your mouth with water after using your Wixela inhaler to prevent side effects. - Continue to use your CPAP machine every night as it is beneficial for your sleep apnea. - If you need any medication refills, please let the office know. - Continue to stay active by walking, stay well-hydrated, and eat a healthy diet. - Schedule a follow-up appointment to see me next year, after you return in November. Orders: Orders Free T4 (Free Thyroxine) Today I48.91 - Unspecified atrial fibrillation Thyroid Stimulating Hormone Today I48.91 - Unspecified atrial fibrillation Lipid Panel Today E78.00 - Pure hypercholesterolemia, unspecified, I48.91 - Unspecified atrial fibrillation Vitamin B12 and Folate Today I48.91 - Unspecified atrial fibrillation Hemoglobin A1c Today I48.91 - Unspecified atrial fibrillation Vitamin D 25-OH Total Today I48.91 - Unspecified atrial fibrillation Complete Blood Count Auto Diff Today I48.91 - Unspecified atrial fibrillation Comprehensive Met. Panel Today I48.91 - Unspecified atrial fibrillation Magnesium Today I48.91 - Unspecified atrial fibrillation
--- OUTSIDE RECORDS SUMMARY | 2025-06-08 10:55 | XMS_ITS | Patient Health Record ---
Author Organization [facility] Address [address] [place] [address] Care Team Providers Care Stamping Mill Tender Name Role Phone Po Any CUI Primary Care Provider Darrian Galvez [phone] Allergies Allergen (clinical drug ingredient) Drug/Non Drug Allergy documented on EMR Reaction Allergy Type Onset Date Status amoxicillin Amoxicillin jaundice Drug Allergy Act eva doxycycline Doxycycline jaundice Drug Allergy Act eva Results Component Value Reference Range Flag Notes Liver Panel Reviewed date:11/29/2024 06:40:17 PM Interpretation: Performing Lab:[facility], [address] [place] [phone] Notes/Report: Bilirubin Total 0.6 0.0-1.0 mg/dL N Bilirubin Direct 0.3 0.0-0.5 mg/dL N Aspartate Amino Transferase 20 5-37 U/L N Alanine Aminotransferase 26 0-40 U/L N Total Protein 7.1 6.5-8.0 g/dL N Albumin Level 4.0 3.5-5.0 g/dL N Alkaline Phosphatase 60 39-117 U/L N Pathology Reviewed date:05/28/2025 01:43:51 PM Interpretation: Performing Lab:[facility], [address] [place] [phone] Notes/Report: Bile Acids Total, Fractionat ed Reviewed date:12/12/2024 07:37:13 AM Interpretation: Performing Lab:[facility], [address] [place] [phone] Notes/Report: Cholic Acid <0.5 < OR = 1.8 umol/L Deoxycholic Acid <0.5 < OR = 2.4 umol/L Chenodeoxycholic Acid 0.8 < OR = 3.1 umol/L Total Bile Acids <1.5 < OR = 6.8 umol/L This test was developed and its analytical performance characteristics have been determined by [employer]. It has not been cleared or approved by the FDA. This assay has been validated pursuant to the CLIA regulations and is used for clinical purposes. THIS TEST WAS PERFORMED AT: [facility] [address] [place] [address] JUAN MIGUEL GILMORE MD,PHD,MINNIE Liver Fibrosis Pnl Reviewed date:12/12/2024 12:00:36 AM Interpretation: Performing Lab:[facility], [address] [place] [phone] Notes/Report: Liver Fibrosis Score 0.37 Liver Fibrosis [...] a>0.62 and a<=1.00 : A3 (severe activity) NXH-Ojwzs-1-Macroglobulin 248 106-279 mg/dL FIB-Haptoglobin 149 43-212 mg/dL FIB-Apolipoprotein A1 156 94-176 mg/dL FIB-Total Bilirubin 0.5 0.2-1.2 mg/dL FIB-GGT 17 3-70 U/L FIB-ALT 20 9-46 U/L Reference ID [id number] Footnote SEE NOTE The reliability of results is dependent on compliance with the preanalytical and analytical conditions recommended by [employer]. The tests have to be deferred for: [...] The performance characteristics have been determined by [employer]. It has not been cleared or approved by the U.S. Food and Drug Administration. Performance characteristics refer to the analytical performance of the test. [employer], the associated logo, [employer] and all associated [employer] howard are the registered trademarks of [employer]. All third alliance party howard - (R) and (TM) - are the property of their respective owners. (C) [id number] [employer]. All rights reserved. THIS TEST WAS PERFORMED AT: [facility] [address] [facility] [place] [address] JUAN MIGUEL GILMORE MD,PHD,MINNIE Reason For Referral No Information Medications Medication SIG (Take, Route, Frequency, Duration) Notes Start Date End Date Status Wixela Inhub 250-50 MCG/ACT Aerosol Powder Breath Activated Inhalation; Duration: 30 Days Active Dupixent 300 MG/2ML Solution Auto-injector Subcutaneous; Duration: 28 Active Simvastatin 40 MG Tablet Oral; Duration: 90 Active Metoprolol Tartrate 50 MG Tablet Oral; Duration: 45 Active Eliquis 5 MG Tablet TAKE 1 TABLET BY MOUTH TWICE A DAY Oral; Duration: 90 Active Advair HFA 230-21 MCG/ACT Aerosol Inhalation; Duration: 30 Active Advair Diskus 100-50 MCG/DOSE Miscellaneous as directed Inhalation Active Omeprazole 20 MG Capsule Delayed Release 1 capsule 30 minutes before morning meal Orally Once a day; Duration: 30 day(s) Active Famotidine 40 MG Tablet 1 tablet Orally Twice a day for itching; Duration: 30 days I want him to continue his omeprazole as well. I am prescribing the H-2 willian to try to help his pruritus. Thanks 11/20/2024 Active Immunizations Vaccine Route Administration Date Status Comme nts Influenza Unknown 03/16/2019 Administered Influenza Unknown 03/16/2022 Administered Influenza Unknown 05/03/2022 Administered Social History Social History Additional Details Category Social Info Options Details Miscellaneous: Marital status: Occupation: retired Section Notes: Nonsmoker x 4 yrs; no alcoho l > 30 years Nonsmoker; no alcohol > 30 y ears Nonsmoker; no alcohol > 30 y ears Nonsmoker; no alcohol > 30 y ears Nonsmoker; no alcohol > 30 y ears Nonsmoker; no alcohol > 30 y ears Nonsmoker; no alcohol > 30 y ears Problems Problem Type SNOMED Code ICD Code Onset Dates Problem Status W/U Status Risk Notes Problem Screening for malignant neoplasm of colon (111123923) Encounter for screening for malignant neoplasm of colon (Z12.11) Active confirmed Problem Elevated liver enzymes level (316763191) Elevated LFTs (R79.89) Active confirmed Problem Preprocedural examination (955627863311239) Preprocedural examination (Z01.818) Active confirmed Problem Iron excess (13062653) Iron excess (E83.19) Active confirmed Problem Jaundice (19760794) Jaundice (R17) Active confi rmed Problem Gastroesophageal reflux disease (635723813) GERD (gastroesophagea l reflux disease) (K21.9) Active confirmed Problem History of adenomatous polyp of colon (980670348) Hx of adenomatous colonic polyps (Z86.010) Active confirmed Problem Pruritus (770136318) Pruritus (L29.9) Active confirmed Problem Elevated liver enzymes level (831744431) Elevated liver function tests (R94.5) Active confirmed Vital Signs Blood pressure diastolic 77 mm Hg 11/20/2024 Height 66 in 11/20/2024 Blood pressure systolic 111 mm Hg 11/20/2024 Weight 200 lbs 11/20/2024 BMI 32.28 kg/m2 11/20/2024 Procedures Procedure Date Ordered Date Performed Result Body Sit e COLONOSCOPY 11/20/2024 N/A Encounters Encounter Location Date Provider Diagnosis [facility] [address], [place] [id number] 01/26/2025 Darrian Khan [facility] [address] [place] [phone] 11/20/2024 Darrian Khan Hx of adenomatous colonic polyps Z86.010 ; GERD (gastroesophageal reflux disease) K21.9 ; Encounter for screening for malignant neoplasm of colon Z12.11 and Pruritus L29.9 [facility] [address] [place] [phone] 01/26/2025 Darrian Khan [facility] [address] [place] [phone] 05/28/2025 Darrian Khan Assessments Encounter Date Diagnosis (ICD Code) Assessment [...] the procedure and we shall advise his sterilisation technician of that as well. His reflux seems stable on his omeprazole. However, I shall give him a trial of Pepcid 40 mg twice daily to see if that might help with his itching since it does have some antihistamine effect. I did advise him to review this with his avp when he sees them in follow-up and [...] the procedure and we shall advise his sterilisation technician of that as well. His reflux seems stable on his omeprazole. However, I shall give him a trial of Pepcid 40 mg twice daily to see if that might help with his itching since it does have some antihistamine effect. I did advise him to review this with his avp when he sees them in follow-up and [...] the procedure and we shall advise his sterilisation technician of that as well. His reflux seems stable on his omeprazole. However, I shall give him a trial of Pepcid 40 mg twice daily to see if that might help with his itching since it does have some antihistamine effect. I did advise him to review this with his avp when he sees them in follow-up and [...] the procedure and we shall advise his sterilisation technician of that as well. His reflux seems stable on his omeprazole. However, I shall give him a trial of Pepcid 40 mg twice daily to see if that might help with his itching since it does have some antihistamine effect. I did advise him to review this with his avp when he sees them in follow-up and [...] Order Date COLONOSCOPY 11/20/2024 CHEM 7 PROFILE 06/14/2022 CHEM 7 PROFILE 06/16/2022 CHEM 7 PROFILE 02/26/2024 LIVER PROFILE 06/16/2022 LIVER PROFILE 08/11/2022 LIVER PROFILE 06/14/2022 LIVER PROFILE 06/21/2022 LIVER PROFILE 11/20/2024 LIVER PROFILE 02/26/2024 LIVER PROFILE 06/29/2022 LIVER PROFILE 08/11/2022 LIVER PROFILE 03/02/2024 LIVER PROFILE 03/13/2024 LIVER PROFILE 02/19/2024 IRON + IBC (FE) 08/11/2022 IRON + IBC (FE) 02/19/2024 IRON + IBC (FE) 08/11/2022 IRON + IBC (FE) 06/16/2022 FERRITIN 02/19/2024 CRP 06/16/2022 CBC w DIFF 02/26/2024 CBC w DIFF 06/14/2022 CBC w/o DIFF 02/19/2024 SED RATE (ESR) 06/16/2022 PROTHROMBIN TIME (PT, INR) 06/16/2022 PROTHROMBIN TIME (PT, INR) 02/26/2024 PROTHROMBIN TIME (PT, INR) 02/19/2024 PROTHROMBIN TIME (PT, INR) 06/21/2022 HEPATITIS A,B,C PROFILE 02/19/2024 HEPATITIS A,B,C PROFILE 06/16/2022 [id number] (A1A) 06/16/2022 MITOCHONDRIAL AB 02/19/2024 SMOOTH MUSCLE [...] Start Date Coverage End Date [facility] [address] [address] [place] [address] [id number] VOLODYMYR ARNOLD Self - patient is the insured Medical (General) History Medical History History ICD Code Hyperlipidemia Colonoscopy 10-12-2008--1 tub ular adenoma removed; colonoscopy 03/2014 with 2 small tubular adenomas EGD [place] [address] Walter-- negative except for mild reflux-there was no Hough's esophagus nor significant esophagitis Irregular heartbeat--Atrial fibrillation/PVC's--Dr. Shearer. Had an ablation in 04/[address] Kem Lindsay [place],DM,CVA,Lung disease,renal dise ase Bladder cancer 06/2013--has [...] Knee replacement-partial--- left 08/2019 Right big toe EUM-azqdfiyhy-If. [facility] 2020 cardiac ablasion - dr. Brownlee 2022
--- OUTSIDE RECORDS SUMMARY | 2025-06-08 10:55 | XMS_ITS | Patient Health Record ---
Author Organization [facility] Address [address] [place] [address] Care Team Providers Care Research Pharmacist Name Role Phone yanet ly Primary Care Provider Unavailabl e Allergies Allergen (clinical drug ingredient) Drug/Non Drug Allergy documented on EMR Reaction Allergy Type Onset Date Status dronedarone Multaq rash Drug Allergy Activ e Reason For Referral No Information Medications Medication SIG (Take, Route, Frequency, Duration) Notes Start Date End Date Status Ipratropium [place] 0.03 % 2 sprays in e ach [...] Status Risk Notes Problem Acquired hallux rigidus (4750705) Hallux rigidus of right foot (M20.21) Active confirmed Problem Long-term current use of anticoagulant (632637763) Anticoagulant long-term use (Z79.01) Active confirmed Plan [...] Date Coverage End Date [employer] Medicare Adv-[id number] [address] [address] [place] [address] [id number] Volodymyr Richards Self - patient is the [...]
== END 2025-06-08 10:56 | disposition home or self-care (01) ==
LOC: HO.HMCH 09:31
PROVIDERS: PCP Internal Medicine; Visit Provider Internal Medicine
DX: I48.91 Unspecified atrial fibrillation (principal); E78.00 Pure hypercholesterolemia, unspecified; C67.9 Malignant neoplasm of bladder, unspecified; J44.1 Chronic obstructive pulmonary disease with (acute) exacerbation; G47.33 Obstructive sleep apnea (adult) (pediatric); Z99.89 Dependence on other enabling machines and devices; Z87.891 Personal history of nicotine dependence

== ENCOUNTER → 2025-06-08 09:30 | Outpatient (BNVA) | payer MEDICARE, SELFPAY | PROVIDERS: PCP Internal Medicine; Visit Provider Internal Medicine | DX: J44.1 Chronic obstructive pulmonary disease with (acute) exacerbation (principal); I48.91 Unspecified atrial fibrillation; E78.00 Pure hypercholesterolemia, unspecified; C67.9 Malignant neoplasm of bladder, unspecified; G47.33 Obstructive sleep apnea (adult) (pediatric); Z99.89 Dependence on other enabling machines and devices; Z87.891 Personal history of nicotine dependence; Z13.31 Encounter for screening for depression | CPT/HCPCS: 96127; 99212 ==

== ENCOUNTER 2025-06-19 06:38 | Outpatient (REF) | payer MEDICARE, SELFPAY ==
[2025-06-19 06:54] LABS: MANUAL DIFF FLAG NO
[2025-06-19 07:19] LABS: Hematocrit 49.5 % (42.0-52.0); Hemoglobin 16.6 g/dl (14.0-18.0); Imm Gran Abs Auto 0.02 X10*3/uL (0.00-0.03); Imm Gran Pct Auto 0.3 % (0.0-0.4); Lymphocytes Absolute Auto 2.2 X10*3/uL (1.2-4.9); Mean Corpuscular HGB Conc 33.5 g/dl (31.0-36.0); Mean Corpuscular Hemoglobin 29.9 pg (27.0-33.0); Mean Corpuscular Volume 89.2 fL (80.0-98.0); NRBC Abs Auto 0.000 X10*3/uL (0.0-0.012); NRBC Pct Auto 0.0 /100WBC (0.0-0.2); Platelet Count 194 X10*3/uL (160-400); Red Blood Count 5.55 X10*6/uL (4.60-5.80); White Blood Count 6.5 X10*3/uL (4.8-10.8)
[2025-06-19 08:34] LABS: Folate 7.8 ng/mL (> or = 4.0); Vitamin B12 426 pg/mL (200-900)
[2025-06-19 09:26] LABS: Alanine Aminotransferase 32 U/L (0-40); Albumin Level 4.3 g/dL (3.5-5.0); Alkaline Phosphatase 66 U/L (39-117); Anion Gap 12 (12-20); Aspartate Amino Transferase 28 U/L (5-37); Blood Urea Nitrogen 13 mg/dL (9-16); Calcium 9.5 mg/dL (8.4-10.2); Carbon Dioxide 27 mmol/L (22-29); Chloride 109 mmol/L (96-108); Cholesterol 191 mg/dL (<200); Estimated Glomerular Filt Rate > 60; Free T4 (Free Thyroxine) 1.12 ng/dL (0.71-1.85); HDL Cholesterol 50 mg/dL (>40); Magnesium 2.0 mg/dL (1.6-2.6); Potassium 5.1 mmol/L (3.3-5.1); Sodium 143 mmol/L (135-145); Thyroid Stimulating Hormone 1.45 uIU/mL (0.32-4.0); Total Protein 7.2 g/dL (6.5-8.0); Triglycerides 65 mg/dL (<150)
== END 2025-06-19 06:39 | disposition home or self-care (01) ==
LOC: HO.LAB 06:38
PROVIDERS: PCP Internal Medicine; Visit Provider Internal Medicine
DX: Z13.1 Encounter for screening for diabetes mellitus (principal); I48.91 Unspecified atrial fibrillation; E78.00 Pure hypercholesterolemia, unspecified
CPT/HCPCS: 36415; 80053; 80061; 82306; 82607; 82746; 83036; 83735; 84439; 84443; 85025

== ENCOUNTER 2025-06-27 11:47 | Outpatient (AMB) | payer MEDICARE, SELFPAY ==
--- OUTSIDE RECORDS SUMMARY | 2025-01-26 07:20 | XMS_ITS ---
Author Organization [facility] Address [address] [place] [address] Care Team Providers Care Hedis Analyst Name Role Phone Any Jackson MD Primary Care Provider Darrian Galvez [phone] REASON FOR VISIT screening,hx polyps Encounters Encounter Location Date Provider Diagnosis [facility] Out[facility] [address] [place] [phone] 01/26/2025 Darrian Khan Plan Of Treatment No Information Progress Notes * GENEVIEVE ARNOLD JrDOB: (75 yo M)Acc No.[id number]:01/26/2025 COLON WITH MAC Patient: Neyda WHITTAKERGENEVIEVE Jr Provider: Fang Khan MD :1950 A ge:75 Y S ex:Male Date:01/26/2025 Address:[facility] [address], [place] Pcp:Any Jackson MD Subjective: * Chief Complaints: * S creening,hx polyps Billing Information: * Procedure Codes: * The named appointment provid er may or may not be the originator of this progress note, and it is not deemed complete until electronically signed by the appointment provider. Sign off status: Pending * Provider: Fang Khan MD Date: 0 01/26/2025 Generated for Enrique ng/Fabenjaming/eTransmitting on: 1 08/28/2024 11:48 AM EST
--- OUTSIDE RECORDS SUMMARY | 2025-06-27 11:49 | XMS_ITS | Patient Health Record ---
Author Organization [facility] Address [address] [place] [address] Care Team Providers Care Qualitative Field Project Manager Name Role Phone yanet ly Primary Care Provider Unavailabl e Allergies Allergen (clinical drug ingredient) Drug/Non Drug Allergy documented on EMR Reaction Allergy Type Onset Date Status dronedarone Multaq rash Drug Allergy Activ e Reason For Referral No Information Medications Medication SIG (Take, Route, Frequency, Duration) Notes Start Date End Date Status Ipratropium [place] 0.03 % 2 sprays in e ach [...] Status Risk Notes Problem Acquired hallux rigidus (6738512) Hallux rigidus of right foot (M20.21) Active confirmed Problem Long-term current use of anticoagulant (242282045) Anticoagulant long-term use (Z79.01) Active confirmed Plan [...] Date Coverage End Date [employer] Medicare [id number] [address] [address] [place] [address] [id number] Volodymyr Richards Self - patient is the [...]
--- OUTSIDE RECORDS SUMMARY | 2025-06-27 11:49 | XMS_ITS | Patient Health Record ---
Author Organization [facility] Address [address] [place] [address] Care Team Providers Care High Voltage Electrician Name Role Phone Po Any CUI Primary Care Provider Darrian Galvez [phone] Allergies Allergen (clinical drug ingredient) Drug/Non Drug Allergy documented on EMR Reaction Allergy Type Onset Date Status amoxicillin Amoxicillin jaundice Drug Allergy Act eva doxycycline Doxycycline jaundice Drug Allergy Act eva Results Component Value Reference Range Flag Notes Pathology Reviewed date:05/28/2025 01:43:51 PM Interpretation: Performing Lab:[facility], [address] [place] [phone] Notes/Report: Bile Acids Total, Fractionat ed Reviewed date:12/12/2024 07:37:13 AM Interpretation: Performing Lab:[facility], [address] [place] [phone] Notes/Report: Cholic Acid <0.5 < OR = 1.8 umol/L Deoxycholic Acid <0.5 < OR = 2.4 umol/L Chenodeoxycholic Acid 0.8 < OR = 3.1 umol/L Total Bile Acids <1.5 < OR = 6.8 umol/L This test was developed and its analytical performance characteristics have been determined by [employer]. It has not been cleared or approved by the FDA. This assay has been validated pursuant to the CLIA regulations and is used for clinical purposes. THIS TEST WAS PERFORMED AT: [facility] [address] [place] [address] JUAN MIGUEL GILMORE MD,PHD,MINNIE Liver Fibrosis Pnl Reviewed date:12/12/2024 12:00:36 AM Interpretation: Performing Lab:[facility], [address] [place] [phone] Notes/Report: Liver Fibrosis Score 0.37 Liver Fibrosis [...] a>0.62 and a<=1.00 : A3 (severe activity) GJU-Wwsxv-1-Macroglobulin 248 106-279 mg/dL FIB-Haptoglobin 149 43-212 mg/dL FIB-Apolipoprotein A1 156 94-176 mg/dL FIB-Total Bilirubin 0.5 0.2-1.2 mg/dL FIB-GGT 17 3-70 U/L FIB-ALT 20 9-46 U/L Reference ID [id number] Footnote SEE NOTE The reliability of results is dependent on compliance with the preanalytical and analytical conditions recommended by [employer]. The tests have to be deferred for: [...] The performance characteristics have been determined by [facility]. It has not been cleared or approved by the U.S. Food and Drug Administration. Performance characteristics refer to the analytical performance of the test. [employer] the associated logo, [employer] and all associated [employer] howard are the registered trademarks of [employer]. All third libertarian howard - (R) and (TM) - are the property of their respective owners. (C) 8300-2457 [employer]. All rights reserved. THIS TEST WAS PERFORMED AT: [facility] [address] [place] [address] JUAN MIGUEL GILMORE MD,PHD,MINNIE Liver Panel Reviewed date:11/29/2024 06:40:17 PM Interpretation: Performing Lab:[facility], [address] [place] [phone] Notes/Report: Bilirubin Total 0.6 0.0-1.0 mg/dL N Bilirubin Direct 0.3 0.0-0.5 mg/dL N Aspartate Amino Transferase 20 5-37 U/L N Alanine Aminotransferase 26 0-40 U/L N Total Protein 7.1 6.5-8.0 g/dL N Albumin Level 4.0 3.5-5.0 g/dL N Alkaline Phosphatase 60 39-117 U/L N Reason For Referral No Information Medications Medication [...] Problem Screening for malignant neoplasm of colon (909087747) Encounter for screening for malignant neoplasm of colon (Z12.11) Active confirmed Problem Elevated liver enzymes level (817435356) Elevated LFTs (R79.89) Active confirmed Problem Preprocedural examination (533607787407859) Preprocedural examination (Z01.818) Active confirmed Problem Iron excess (94692085) Iron excess (E83.19) Active confirmed Problem Jaundice (21630932) Jaundice (R17) Active confi rmed Problem Gastroesophageal reflux disease (624781800) GERD (gastroesophagea l reflux disease) (K21.9) Active confirmed Problem History of adenomatous polyp of colon (438086805) Hx of adenomatous colonic polyps (Z86.010) Active confirmed Problem Pruritus (423867842) Pruritus (L29.9) Active confirmed Problem Elevated liver enzymes level (817779133) Elevated liver function tests (R94.5) Active confirmed Vital Signs Blood pressure diastolic 77 mm Hg 11/20/2024 Height 66 in 11/20/2024 Blood pressure systolic 111 mm Hg 11/20/2024 Weight 200 lbs 11/20/2024 BMI 32.28 kg/m2 11/20/2024 Procedures Procedure Date Ordered Date Performed Result Body Sit e COLONOSCOPY 11/20/2024 N/A Encounters Encounter Location Date Provider Diagnosis [facility] Out[facility] [address], [place] [id number] 01/26/2025 Darrian Khan [facility] [address] [place] [phone] 11/20/2024 Darrian Khan Hx of adenomatous colonic polyps Z86.010 ; GERD (gastroesophageal reflux disease) K21.9 ; Encounter for screening for malignant neoplasm of colon Z12.11 and Pruritus L29.9 [facility] [address] [place] [phone] 01/26/2025 Darrian Khan [facility] [address] [place] [phone] 05/28/2025 Darrian Khan Assessments Encounter Date Diagnosis [...] the procedure and we shall advise his policy services representative of that as well. His reflux seems stable on his omeprazole. However, I shall give him a trial of Pepcid 40 mg twice daily to see if that might help with his itching since it does have some antihistamine effect. I did advise him to review this with his nuclear fuel enrichment technician when he sees them in follow-up and [...] the procedure and we shall advise his policy services representative of that as well. His reflux seems stable on his omeprazole. However, I shall give him a trial of Pepcid 40 mg twice daily to see if that might help with his itching since it does have some antihistamine effect. I did advise him to review this with his nuclear fuel enrichment technician when he sees them in follow-up and [...] the procedure and we shall advise his policy services representative of that as well. His reflux seems stable on his omeprazole. However, I shall give him a trial of Pepcid 40 mg twice daily to see if that might help with his itching since it does have some antihistamine effect. I did advise him to review this with his nuclear fuel enrichment technician when he sees them in follow-up and [...] the procedure and we shall advise his policy services representative of that as well. His reflux seems stable on his omeprazole. However, I shall give him a trial of Pepcid 40 mg twice daily to see if that might help with his itching since it does have some antihistamine effect. I did advise him to review this with his nuclear fuel enrichment technician when he sees them in follow-up and [...] A,B,C PROFILE 02/19/2024 HEPATITIS A,B,C PROFILE 06/16/2022 [id number] (A1A) 06/16/2022 MITOCHONDRIAL AB 02/19/2024 SMOOTH MUSCLE [...] Insured Coverage Start Date Coverage End Date [facility] [address] [address] [place] [address] [phone] [id number] VOLODYMYR ARNOLD Self - patient is the insured Medical (General) History Medical History History ICD Code Hyperlipidemia Colonoscopy 10-12-2008--1 tub ular adenoma removed; colonoscopy 03/2014 with 2 small tubular adenomas EGD [place] [address] Walter-- negative except for mild reflux-there was no Hough's esophagus nor significant esophagitis Irregular heartbeat--Atrial fibrillation/PVC's--Dr. Shearer. Had an ablation in 04/[address] Kem Lindsay [place],DM,CVA,Lung disease,renal dise ase Bladder cancer 06/2013--has periodic [...] Knee replacement-partial--- left 08/2019 Right big toe [facility]-fc[facility]. [facility] 2020 cardiac ablasion - dr. Brownlee 2022
[2025-06-27 12:01] VITALS: BP 128/80; PULSE 75; RESP 16; TEMP 36.4; O2SAT 97; BMI 33.9
--- NOTE | 2025-06-27 12:01 | MHC.OFFWIV ---
Intake Vital Signs 06/27/25 12:01 Height 5 ft 6 in Weight 210 lb BMI 33.9 BP 128/80 Blood Pressure Location Rt brachial Position Sitting Respiration 16 Pulse 75 Pulse Source Pulse Oximeter Temp 97.5 F Temp Source Oral Pulse Oximetry (%) 97 Oxygen Delivery Method Room Air Intake Visit Reasons: EP, UTI Intake Note: Pt is here today c/o pain upon urination: frequent urination Patient Tobacco Use Status: Former Tobacco user Allergies dronedarone (From Multaq) Allergy (Mild, Verified 06/27/25 12:02) Rash amoxicillin (From Augmentin) Allergy (Verified 06/27/25 12:02) liver failure clavulanic acid (From Augmentin) Allergy (Verified 06/27/25 12:02) liver failure Penicillins Adverse Reaction (Intermediate, Verified 06/27/25 12:02) Unknown Medication List - Last Reconciled 06/27/25 by Hamlet Mancilla MD albuterol sulfate 1.25 mg inhalation Q4-6H PRN albuterol-budesonide 90-80 mcg/actuation (Airsupra) 2 inhalations inhalation BID PRN apixaban (Eliquis) 5 mg PO BID 90 days CPAP (CPAP Machine/Device) As directed docusate sodium (Colace) 100 mg PO DAILY fluticasone propion-salmeterol 250-50 mcg/dose (Wixela Inhub) 1 inh inhalation BID gemcitabine 1,000 mg IV QWEEK ipratropium bromide 1 spray intranasal DAILY PRN ipratropium-albuterol 0.5 mg-3 mg(2.5 mg base)/3 mL 3 mL inhalation Q4-6H PRN meclizine 25 mg PO TID metoprolol tartrate 25 mg PO BID omeprazole 20 mg PO DAILY 90 days sulfamethoxazole-trimethoprim 800-160 mg (Bactrim DS) 1 tab PO Q12H 10 days HPI EP, UTI HPI Details 75-year-old male with history of bladder cancer presents with recurrent UTI symptoms burning when urinating and frequency no fevers or chills. No abdominal or back pain PFSH Medical History Bladder cancer Atrial fibrillation SVT (supraventricular tachycardia) LBBB (left bundle branch block) PVC (premature ventricular contraction) Hypercholesterolemia Asthma COPD (chronic obstructive pulmonary disease) Jaundice ANALY on CPAP Personal history of nicotine dependence History of COVID-19 History of small bowel obstruction GERD (gastroesophageal reflux disease) Erectile dysfunction Obesity (BMI 30-39.9) Surgical History History of colonoscopy (~11/26/19) History of foot surgery (~2021) History of laparotomy (~2020) History of arthroplasty of right knee (~2020) History of meniscectomy of right knee (~2011) History of cataract surgery (~2020) History of appendectomy History of arthroplasty of left knee (~2019) History of meniscectomy of left knee (~2018) History of bladder surgery Hx of transurethral destruction of bladder lesion Family History Father Lung cancer Mother History of breast cancer Sister Multiple myeloma Other Cough Social History Household Members: Spouse Housing: House Are you a primary post acute care registered nurse to a significant other at home: No Do you presently have visiting nurse or other home services: No Alcohol intake: former Patient Tobacco Use Status: Former Tobacco user Tobacco use type: Cigarette Years Smoked: (former smoker - onset 14yo, 1ppd x 46yrs, 45pyh, quit 2009) e-Cigarette/Vaping Use: Never Used Second Hand Smoke Exposure: No Advance Directives Date on File: 02/14/21 service: Yes ( [employer] - served in [facility]) Current occupational status: retired Current occupational exposures/hazards: Yes (was exposed to [employer] [place] while serving in [employer]) Cognitive needs: No Hearing needs: Yes (hearing aide) Vision needs: No Review of Systems Narrative see HPI Physical Exam Vital Signs: Last Vital Signs Temp 97.5 F 06/27/25 12:01 Pulse 75 06/27/25 12:01 Resp 16 06/27/25 12:01 BP 128/80 06/27/25 12:01 Pulse Ox 97 06/27/25 12:01 Oxygen Delivery Method Room Air 06/27/25 12:01 BMI result Body Mass Index 33.9 Const General: no acute distress and well developed Nutritional Appearance: well nourished Orientation/consciousness: patient oriented x3 HEENT Head: Yes normocephalic and Yes atraumatic Eyes General: appearance normal, both eyes and all related structures Pupils: Equal, round and reactive pupils present EOM: EOMs intact bilaterally Resp Effort & Inspection: normal respiratory effort Other: no CVA TTP Neuro General: patient oriented x3 and gait normal Cranial nerves: Yes Equal, round and reactive pupils present Psych Affect: normal affect Results AMB Urinalysis, Automated UA Leukoctes 500 Candice/uL Last Edit by Kiara Seth CMA on 06/27/25 12:11 UA Nitrite Negative Last Edit by Kiara Seth CMA on 06/27/25 12:11 UA Urobilinogen 0.2 mg/dL Last Edit by Kiara Seth CMA on 06/27/25 12:11 UA Protein 0 mg/dL Last Edit by Kiara Seth CMA on 06/27/25 12:11 UA pH 6.0 Last Edit by Kiara Seth, SHAW on 06/27/25 12:11 UA Blood 200 Clive/uL Last Edit by Kiara Seth CMA on 06/27/25 12:11 UA Specific [place] 1.015 Last Edit by Kiara Seth CMA on 06/27/25 12:11 UA Ketone Negative Last Edit by Kiara Seth CMA on 06/27/25 12:11 UA Bilirubin 0 mg/dL Last Edit by Kiara Seth CMA on 06/27/25 12:11 UA Glucose 0 mg/dL Last Edit by Kiara Seth CMA on 06/27/25 12:11 Results Reviewed Results Reviewed: Laboratory Last Values Urine pH (Auto) 6.0 06/27/25 11:58 Specific [place] (Auto) 1.015 06/27/25 11:58 Urine Protein (Auto) 0 mg/dL 06/27/25 11:58 Glucose (UA)(Auto) 0 mg/dL 06/27/25 11:58 Urine Ketones (Auto) Negative 06/27/25 11:58 Urine Blood (Auto) 200 Clive/uL 06/27/25 11:58 Urine Nitrite (Auto) Negative 06/27/25 11:58 Urine Bilirubin (Auto) 0 mg/dL 06/27/25 11:58 Urine Urobilinogen (Auto) 0.2 mg/dL 06/27/25 11:58 Leukocyte Esterase (Auto) 500 Candice/uL 06/27/25 11:58 Assessment & Plan Assessment & Plan (1) Dysuria: Code(s): R30.0 - Dysuria Plan: 75-year-old male with a history of bladder cancer presents with dysuria. Has had a couple of urinary tract infections in the recent past. Most recently Klebsiella infection at the end of April which was sensitive to Bactrim urine dip suspicious for another UTI and patient has symptoms consistent with this. Will send a script for Bactrim DS and he will take twice daily for 10 days avoid hard to digest foods and dairy. take all medication unless there is a problem. Call for any problems. Call or return to office if worsening or not improving Orders: Orders AMB Urinalysis Automated Today Z13.9 - Encounter for screening, unspecified Urine Culture Today R30.0 - Dysuria UA CC w/rflx Micro + Cult Today R30.0 - Dysuria, Z00.00 - Encounter for general adult medical examination without abnormal findings Medications: New sulfamethoxazole-trimethoprim 800-160 mg (Bactrim DS) 1 tab PO Q12H 20 tabs 0RF 10 days Coding Level of Care Code Est Pt Level 3 (13899) Diagnoses Dysuria R30.0
== END 2025-06-27 12:42 | disposition home or self-care (01) ==
PROVIDERS: PCP Internal Medicine; Visit Provider Family Medicine
DX: Z13.9 Encounter for screening, unspecified (principal); R30.0 Dysuria

== ENCOUNTER 2025-06-27 11:47 | Outpatient (REF) | payer MEDICARE, SELFPAY ==
[2025-06-27 13:47] LABS: Appearance Urine Cloudy; Glucose Urine UA Negative (Negative); PH 6.0 (5.0-9.0); Specific Gravity - Urine 1.015 (1.005-1.025); UMIC TRIGGER UACC YES
[2025-06-27 13:49] LABS: UACC Culture Trigger YES
== END 2025-06-27 11:48 | disposition home or self-care (01) ==
LOC: HO.LAB 11:47
PROVIDERS: Family Medicine; PCP Internal Medicine
DX: Z00.00 Encounter for general adult medical examination without abnormal findings (principal); R30.0 Dysuria; Z13.89 Encounter for screening for other disorder
CPT/HCPCS: 81001; 81003; 87086; 99212